=== PATIENT | female | born 1965 | race Caucasian/White ===

== ENCOUNTER 2020-05-21 11:08 | Inpatient (IN) | payer MEDICARE, OTHER ==
--- NOTE | 2020-05-21 11:41 | ED ---
General Adult HPI - General Chief complaint: Chest Pain Stated complaint: Chest Pain Time Seen by Provider: 05/21/20 11:18 Source: patient, EMS, RN notes reviewed, old records reviewed Mode of arrival: EMS Limitations: no limitations - History of Present Illness Initial comments: 54-year-old female history of CAD history of mitral valve replacement in 2017. She's had multiple stents. She states she does have anginal chest pain approximately once a month. She was seen at an outside hospital 2 days ago and according to the patient she was discharged without workup for chest pain. She states she has central chest pain radiating to the left arm. She denies vomiting or diaphoresis. She states this is typical of her previous episodes of chest pain. 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 - Related Data Allergies Allergy/AdvReac Type Severity Reaction Status Date / Time gabapentin Allergy Anaphylaxis Verified 05/21/20 11:36 Review of Systems ROS Statement: Those systems with pertinent positive or pertinent negative responses have been documented in the HPI. ROS Other: All systems not noted in ROS Statement are negative. Past Medical History Past Medical History: Coronary Artery Disease (CAD), Chest Pain / Angina Past Surgical History: Coronary Bypass/CABG, Heart Catheterization Additional Past Surgical History / Comment(s): CABG in 2013, Mitro valve on 2016, Stent Past Psychological History: Bipolar Smoking Status: Current some day smoker Past Alcohol Use History: None Reported Past Drug Use History: None Reported General Exam Limitations: no limitations General appearance: alert, in no apparent distress Head exam: Present: atraumatic, normocephalic Eye exam: Present: normal appearance, PERRL ENT exam: Present: normal exam Neck exam: Present: normal inspection. Absent: tenderness, meningismus Respiratory exam: Present: normal lung sounds bilaterally. Absent: respiratory distress, wheezes Cardiovascular Exam: Present: regular rate, normal rhythm GI/Abdominal exam: Present: soft. Absent: distended, tenderness, guarding Extremities exam: Present: normal inspection, normal capillary refill. Absent: pedal edema Neurological exam: Present: alert, oriented X3, CN II-XII intact. Absent: motor sensory deficit Psychiatric exam: Present: normal affect, normal mood Skin exam: Present: warm, dry, intact. Absent: cyanosis, diaphoretic Course Vital Signs 05/21/20 11:29 Pulse Rate 85 Respiratory 18 Rate Blood Pressure 124/60 O2 Sat by Pulse 98 Oximetry EKG Findings - EKG Comments: EKG Findings:: EKG: Normal sinus rhythm, prolonged QT, rate of 87, OH interval 162, QRS duration 88, QTC [address] segment elevation. Medical Decision Making - Medical Decision Making 54-year-old female with history of CAD previous bypass, multiple stents. EKG showing sinus rhythm. Chest x-ray is negative for acute cardiopulmonary findings. Patient has normal CBC, normal CMP, negative initial troponin. Given her risk factor she will be kept in observation for serial cardiac enzymes, telemetry, cardiology consultation. Case has been discussed with Dr. Gonzalez who will admit. - Lab Data Result diagrams: 05/21/20 11:47 05/21/20 11:47 Lab Results 05/21/20 05/21/20 05/21/20 Range/Units 11:47 11:47 11:47 WBC 5.6 (3.8-10.6) k/uL RBC 4.07 (3.80-5.40) m/uL Hgb 12.0 (11.4-16.0) gm/dL Hct 37.3 (34.0-46.0) % MCV 91.6 (80.0-100.0) fL MCH 29.6 (25.0-35.0) pg MCHC 32.3 (31.0-37.0) g/dL RDW 14.5 (11.5-15.5) % Plt Count 230 (150-450) k/uL Neutrophils % 75 % Lymphocytes % 19 % Monocytes % 3 % Eosinophils % 1 % Basophils % 0 % Neutrophils # 4.2 (1.3-7.7) k/uL Lymphocytes # 1.1 (1.0-4.8) k/uL Monocytes # 0.2 (0-1.0) k/uL Eosinophils # 0.1 (0-0.7) k/uL Basophils # 0.0 (0-0.2) k/uL PT 9.6 (9.0-12.0) sec INR 0.9 (<1.2) APTT 22.6 (22.0-30.0) sec Sodium 135 L (137-145) mmol/L Potassium 3.9 (3.5-5.1) mmol/L Chloride 104 (98-107) mmol/L Carbon Dioxide 23 (22-30) mmol/L Anion Gap 8 mmol/L BUN 12 (7-17) mg/dL Creatinine 1.12 H (0.52-1.04) mg/dL Est GFR (CKD-EPI)AfAm 65 (>60 ml/min/1.73 sqM) Est GFR (CKD-EPI)NonAf 56 (>60 ml/min/1.73 sqM) Glucose 371 H (74-99) mg/dL Calcium 8.5 (8.4-10.2) mg/dL Magnesium 1.9 (1.6-2.3) mg/dL Total Bilirubin 0.4 (0.2-1.3) mg/dL AST 25 (14-36) U/L ALT 16 (4-34) U/L Alkaline Phosphatase 118 (38-126) U/L Troponin I (0.000-0.034) ng/mL Total Protein 6.7 (6.3-8.2) g/dL Albumin 4.1 (3.5-5.0) g/dL 05/21/20 Range/Units 11:47 WBC (3.8-10.6) k/uL RBC (3.80-5.40) m/uL Hgb (11.4-16.0) gm/dL Hct (34.0-46.0) % MCV (80.0-100.0) fL MCH (25.0-35.0) pg MCHC (31.0-37.0) g/dL RDW (11.5-15.5) % Plt Count (150-450) k/uL Neutrophils % % Lymphocytes % % Monocytes % % Eosinophils % % Basophils % % Neutrophils # (1.3-7.7) k/uL Lymphocytes # (1.0-4.8) k/uL Monocytes # (0-1.0) k/uL Eosinophils # (0-0.7) k/uL Basophils # (0-0.2) k/uL PT (9.0-12.0) sec INR (<1.2) APTT (22.0-30.0) sec Sodium (137-145) mmol/L Potassium (3.5-5.1) mmol/L Chloride (98-107) mmol/L Carbon Dioxide (22-30) mmol/L Anion Gap mmol/L BUN (7-17) mg/dL Creatinine (0.52-1.04) mg/dL Est GFR (CKD-EPI)AfAm (>60 ml/min/1.73 sqM) Est GFR (CKD-EPI)NonAf (>60 ml/min/1.73 sqM) Glucose (74-99) mg/dL Calcium (8.4-10.2) mg/dL Magnesium (1.6-2.3) mg/dL Total Bilirubin (0.2-1.3) mg/dL AST (14-36) U/L ALT (4-34) U/L Alkaline Phosphatase (38-126) U/L Troponin I <0.012 (0.000-0.034) ng/mL Total Protein (6.3-8.2) g/dL Albumin (3.5-5.0) g/dL Disposition Clinical Impression: Chest pain Disposition: ADMITTED IP TO THIS [facility] Condition: Stable Is patient prescribed a controlled substance at d/c from ED?: No Referrals: Nonstaff,Physician [Primary Care Provider] - 1-2 days Decision to Admit Reason: Admit from EC Decision Date: 05/21/20 Decision Time: 13:23
[2020-05-21] MEDS ORDERED: MORPHINE SULFATE 4 MG/ML SYRINGE IVP STA (12:06)
[2020-05-21] MEDS ORDERED: ASPIRIN 325 MG TAB PO STA (12:06)
[2020-05-21] MEDS ORDERED: ONDANSETRON 4 MG/2 ML VIAL IVP STA (12:06)
[2020-05-21 12:15] LABS: Basophils % (A) 0 %; Eosinophils # (A) 0.1 k/uL (0-0.7); Eosinophils % (A) 1 %; HCT 37.3 % (34.0-46.0); Lymphocytes # (A) 1.1 k/uL (1.0-4.8); Lymphocytes % (A) 19 %; MCH 29.6 pg (25.0-35.0); MCHC 32.3 g/dL (31.0-37.0); MCV 91.6 fL (80.0-100.0); Mean Platelet Volume 7.3; Monocytes # (A) 0.2 k/uL (0-1.0); Monocytes % (A) 3 %; Neutrophils # (A) 4.2 k/uL (1.3-7.7); Neutrophils % (A) 75 %; Platelet Count 230 k/uL (150-450); RBC 4.07 m/uL (3.80-5.40); RDW 14.5 % (11.5-15.5); WBC 5.6 k/uL (3.8-10.6)
--- NOTE | 2020-05-21 12:22 | XR ---
EXAMINATION TYPE: XR chest 2V DATE OF EXAM: 05/21/2020 COMPARISON: None INDICATION: Chest pain TECHNIQUE: Frontal and lateral views of the chest are obtained. FINDINGS: The heart size is normal. The pulmonary vasculature is normal. The lungs are clear. Sternotomy wires are present from previous cardiac valve surgery. Stents or cor onary artery calcification is evident. IMPRESSION: 1. No acute pulmonary process. 2. Multiple cardiac stents or coronary artery calcification may be present. 3. Post surgical cardiac valve changes
[2020-05-21 12:29] LABS: INR 0.9 (<1.2); Partial Thromboplastin Time 22.6 sec (22.0-30.0); Prothrombin Time 9.6 sec (9.0-12.0)
[2020-05-21 12:31] LABS: Albumin 4.1 g/dL (3.5-5.0); Calcium 8.5 mg/dL (8.4-10.2); Magnesium 1.9 mg/dL (1.6-2.3); Potassium 3.9 mmol/L (3.5-5.1); Total Bilirubin 0.4 mg/dL (0.2-1.3); Total Protein 6.7 g/dL (6.3-8.2)
[2020-05-21] MEDS ORDERED: NALOXONE 0.4 MG/ML 1 ML VIAL IV PRN (13:19)
[2020-05-21] MEDS ORDERED: ACETAMINOPHEN TAB 325 MG TAB PO PRN (13:19)
[2020-05-21] MEDS ORDERED: ALBUTEROL NEBULIZED 2.5 MG/3 ML INHALATION PRN (15:50)
[2020-05-21] MEDS ORDERED: CYCLOBENZAPRINE 10 MG TAB PO PRN (15:50)
[2020-05-21] MEDS ORDERED: LOPERAMIDE 2 MG CAP PO PRN (15:50)
[2020-05-21] MEDS ORDERED: LIDOCAINE 5% PATCH TOPICAL PRN (15:50)
--- NOTE | 2020-05-21 16:48 | P.HPIM ---
History of Present Illness 54-year-old female history of CAD history of mitral valve replacement in 2017. She's had multiple stentsalong with CABG in the past came in with complaints of chest pressure like sensation which started yesterday and constant and radiating to the left neck area as well as denied any significant diaphoresis patient had multiple stents in the past and similar to the pain when she had stents in the past.patient usually follows with a transportation escort in [facility] does have history of heart failure was comparing of some shortness of breath associated with chest pain although denied any orthopnea or paroxysmal nocturnal dyspnea chest x-ray did not show any significant pulmonary edema. Review of Systems REVIEW OF SYSTEMS: CONSTITUTIONAL: No fever, no malaise, no fatigue. HEENT: No recent visual problems or hearing problems. Denied any sore throat. CARDIOVASCULAR: No orthopnea, PND, no palpitations, no syncope. PULMONARY: no cough, no hemoptysis. GASTROINTESTINAL: No diarrhea, no nausea, no vomiting, no abdominal pain. NEUROLOGICAL: No headaches, no weakness, no numbness. HEMATOLOGICAL: Denies any bleeding or petechiae. GENITOURINARY: Denies any burning micturition, frequency, or urgency. MUSCULOSKELETAL/RHEUMATOLOGICAL: Denies any joint pain, swelling, or any muscle pain. ENDOCRINE: Denies any polyuria or polydipsia. The rest of the 14-point review of systems is negative. Past Medical History Past Medical History: Coronary Artery Disease (CAD), Chest Pain / Angina History of Any Multi-Drug Resistant Organisms: None Reported Past Surgical History: Coronary Bypass/CABG, Heart Catheterization Additional Past Surgical History / Comment(s): CABG in 2013, Mitro valve on 2016, Stent Past Anesthesia/Blood Transfusion Reactions: No Reported Reaction Past Psychological History: Bipolar Smoking Status: Current some day smoker Past Alcohol Use History: None Reported Past Drug Use History: None Reported Medications and Allergies Home Medications Medication Instructions Recorded Confirmed Type ARIPiprazole [Abilify] 5 mg PO HS 05/21/20 05/21/20 History Albuterol Inhaler [Ventolin Hfa 2 puff INHALATION RT-Q4H PRN 05/21/20 05/21/20 History Inhaler] Aspirin 81 mg PO DAILY 05/21/20 05/21/20 History Atorvastatin [Lipitor] 80 mg PO DAILY 05/21/20 05/21/20 History Calcium Carbonate [Calcium] 600 mg PO BID 05/21/20 05/21/20 History Cyclobenzaprine [Flexeril] 10 mg PO TID 05/21/20 05/21/20 History Ferrous Sulfate [Feosol] 325 mg PO DAILY 05/21/20 05/21/20 History Fluticasone Propionate [Flovent 1 puff INHALATION RT-BID PRN 05/21/20 05/21/20 History Diskus] Folic Acid 1 mg PO DAILY 05/21/20 05/21/20 History Furosemide [Lasix] 40 mg PO DAILY 05/21/20 05/21/20 History INSULIN ASPART (NovoLOG) [NovoLOG See Protocol SQ ACHS 05/21/20 05/21/20 History (formulary)] Insulin Glargine,Hum.rec.anlog 28 unit SQ BID 05/21/20 05/21/20 History [Lantus Solostar] Isosorbide Mononitrate ER [Imdur] 30 mg PO DAILY 05/21/20 05/21/20 History Levothyroxine Sodium [Synthroid] 175 mcg PO DAILY 05/21/20 05/21/20 History Lidocaine 5% Patch [Lidoderm] 1 patch TOPICAL DAILY PRN 05/21/20 05/21/20 History Loperamide [Imodium] 2 mg PO TID PRN 05/21/20 05/21/20 History Metoprolol Tartrate [Lopressor] 25 mg PO BID 05/21/20 05/21/20 History Mirtazapine [Remeron] 45 mg PO HS 05/21/20 05/21/20 History Potassium Chloride ER [K-Dur 20] 20 meq PO DAILY 05/21/20 05/21/20 History QUEtiapine [SEROquel] 50 mg PO HS 05/21/20 05/21/20 History Ranolazine [Ranexa] 1,000 mg PO BID 05/21/20 05/21/20 History Salmeterol Xinafoate [Serevent 1 puff INHALATION RT-BID PRN 05/21/20 05/21/20 History Diskus] Sertraline [Zoloft] 50 mg PO DAILY 05/21/20 05/21/20 History Spironolactone 25 mg PO HS 05/21/20 05/21/20 History Ticagrelor [Brilinta] 90 mg PO BID 05/21/20 05/21/20 History hydrOXYzine pamoate [Vistaril] 25 mg PO TID 05/21/20 05/21/20 History levETIRAcetam [Keppra] 500 mg PO BID 05/21/20 05/21/20 History lisinopriL [Zestril] 2.5 mg PO DAILY 05/21/20 05/21/20 History tiZANidine [Zanaflex] 8 mg PO Q8H 05/21/20 05/21/20 History Allergies Allergy/AdvReac Type Severity Reaction Status Date / Time gabapentin Allergy Anaphylaxis Verified 05/21/20 15:17 Physical Exam Vitals: Vital Signs Temp Pulse Pulse Resp BP BP Pulse Ox 05/21/20 15:11 98.2 F 86 16 135/82 100 05/21/20 15:00 78 18 128/71 100 05/21/20 14:33 72 18 127/74 100 05/21/20 13:33 75 18 128/70 100 05/21/20 12:33 72 18 121/66 100 05/21/20 11:29 85 18 124/60 98 Intake and Output 05/21/20 05/21/20 05/21/20 06:59 14:59 22:59 Other: # Voids 1 Weight 72.575 kg 72.575 kg PHYSICAL EXAMINATION: GENERAL: The patient is alert and oriented x3, not in any acute distress. Well developed, well nourished. HEENT: Pupils are round and equally reacting to light. EOMI. No scleral icterus. No conjunctival pallor. Normocephalic, atraumatic. No pharyngeal erythema. No thyromegaly. CARDIOVASCULAR: S1 and S2 present. No murmurs, rubs, or gallops. PULMONARY: Chest is clear to auscultation, no wheezing or crackles. ABDOMEN: Soft, nontender, nondistended, normoactive bowel sounds. No palpable organomegaly. MUSCULOSKELETAL: No joint swelling or deformity. EXTREMITIES: No cyanosis, clubbing, or pedal edema. NEUROLOGICAL: Gross neurological examination did not reveal any focal deficits. SKIN: No rashes. Results CBC & Chem 7: 05/21/20 11:47 05/21/20 11:47 Labs: Abnormal Lab Results - Last 24 Hours (Table) 05/21/20 Range/Units 11:47 Sodium 135 L (137-145) mmol/L Creatinine 1.12 H (0.52-1.04) mg/dL Glucose 371 H (74-99) mg/dL Thrombosis Risk Factor Assmnt - Choose All That Apply Each Factor Represents 1 point: Age 41-60 years Other Risk Factors: No Other congenital or acquired thrombophilia - If yes, enter type in comment: Yes Each Risk Factor Represents 5 Points: Elective major lower extremity arthoplasty Thrombosis Risk Factor Assessment Total Risk Factor Score: 6 Thrombosis Risk Factor Assessment Level: High Risk Assessment and Plan Plan: chest pain: Rule out acute coronary syndromes unstable angina will repeat 2 more sets of troponins, cardiology was consulted. -History of coronary artery disease with multiple stents in the past less CABG. -possible chronic kidney disease stage II -Congestive heart failure chronic systolic dysfunction EF is unknown patient is not in heart failure exacerbation patient will be resumed on her home dose of Lasix and Aldactonepatient has mild pedal edema but doesn't have any JVD. -Continue nicotine use: Patient quit smoking and recently started back again: Extensive counseling regarding this was provided -History of mitral valve prolapse -history of seizures in the past for which patient is on antiseizure medications which will be continued -Hyperlipidemia -Hypertension -Type 2 diabetes mellitus for which patient is on Levemir along with sliding scale which will be resumed -Depression DVT prophylaxis early ambulation
[2020-05-21] MEDS: MORPHINE SULFATE 4 MG/ML SYRINGE IV PRN ×2 (17:27→21:31)
[2020-05-21] MEDS: FORMOTEROL FUMARATE 20 MCG/2 ML NEBU INHALATION SCH (19:36)
[2020-05-21] MEDS: FLUTICASONE 44 MCG INHALER INHALATION SCH (19:36)
[2020-05-21 20:37] LABS: Glucose,Whole Blood 335 mg/dL (75-99)
[2020-05-21] MEDS: levETIRAcetam 500 MG TAB PO SCH (20:46)
[2020-05-21] MEDS: TICAGRELOR 90 MG TAB PO SCH (20:46)
[2020-05-21] MEDS: METOPROLOL TARTRATE 25 MG TAB PO SCH (20:46)
[2020-05-21] MEDS: SPIRONOLACTONE 25 MG TAB PO SCH (20:46)
[2020-05-21] MEDS: INSULIN DETEMIR (LEVEMIR) 100 UNIT/ML SYR SQ SCH (20:47)
[2020-05-21] MEDS: MIRTAZAPINE 45 MG TABLET PO SCH (20:47)
[2020-05-21] MEDS: ARIPiprazole 5 MG TAB PO SCH (20:47)
[2020-05-21] MEDS: QUEtiapine 50 MG TAB PO SCH (20:48)
[2020-05-21 21:16] LABS: Glucose,Whole Blood 336 mg/dL (75-99)
[2020-05-21] MEDS: RANOLAZINE 500 MG TAB.ER.12H PO SCH (21:30)
[2020-05-21] MEDS: INSULIN ASPART (NovoLOG) 100 UNIT/ML VIAL SQ SCH (21:32)
[2020-05-22] MEDS: MORPHINE SULFATE 4 MG/ML SYRINGE IV PRN ×4 (03:13→20:59)
[2020-05-22 06:30] LABS: Glucose,Whole Blood 164 mg/dL (75-99)
[2020-05-22] MEDS: INSULIN DETEMIR (LEVEMIR) 100 UNIT/ML SYR SQ SCH ×2 (06:37→21:02)
[2020-05-22] MEDS: INSULIN ASPART (NovoLOG) 100 UNIT/ML VIAL SQ SCH ×4 (06:37→21:01)
[2020-05-22] MEDS: LEVOTHYROXINE 88 MCG TAB PO SCH (06:38)
[2020-05-22] MEDS: FORMOTEROL FUMARATE 20 MCG/2 ML NEBU INHALATION SCH ×2 (08:43→19:06)
[2020-05-22] MEDS: FLUTICASONE 44 MCG INHALER INHALATION SCH ×2 (08:43→19:06)
[2020-05-22] MEDS: levETIRAcetam 500 MG TAB PO SCH ×2 (10:00→20:58)
[2020-05-22] MEDS: SERTRALINE 50 MG TAB PO SCH (10:00)
[2020-05-22] MEDS: TICAGRELOR 90 MG TAB PO SCH ×2 (10:00→20:58)
[2020-05-22] MEDS: ASPIRIN 81 MG PO SCH (10:00)
[2020-05-22] MEDS: ISOSORBIDE MONONITRATE ER 30 MG TAB.ER.24H PO SCH (10:00)
[2020-05-22] MEDS: FUROSEMIDE 40 MG TAB PO SCH (10:00)
[2020-05-22] MEDS: METOPROLOL TARTRATE 25 MG TAB PO SCH ×2 (10:01→20:58)
[2020-05-22] MEDS: POTASSIUM CHLORIDE ER 20 MEQ TAB.ER PO SCH (10:03)
[2020-05-22] MEDS: RANOLAZINE 500 MG TAB.ER.12H PO SCH ×2 (10:04→20:58)
[2020-05-22] MEDS: ATORVASTATIN 80 MG TAB PO SCH (10:04)
[2020-05-22 12:09] LABS: Glucose,Whole Blood 83 mg/dL (75-99)
--- NOTE | 2020-05-22 12:46 | P.CRDCN ---
History of Present Illness Consult date: 05/22/20 Consult reason: chest pain History of present illness: History of present illness: This is a 54-year-old female that follows with cardiology in [place] near her home. She has a past medical history of 4 vessel CABG in 2014, mitral valve replacement in 2017, multiple stents which she states is up to 29. She has history of diabetes and rheumatoid arthritis, tobacco use and dependence. Patient gives history also that she had a procedure done about 1 month ago on her right lower extremity followed by her left as of Sunday of last week and she is scheduled for another stent placement on Sunday on the right lower extremity. She believes her last heart catheterization was done this year sometime in the summer. Patient complains of midsternal and left breast chest pain also into the left shoulder and left neck. She states the morphine temporarily diminishes the pain and it worsens when she ambulates. Initial vital signs were stable with blood pressure 124/60, pulse ox 90% on room air, heart rate 85. EKG was a normal sinus rhythm.CBC was unremarkable. Sodium 135, creatinine 1.12. Blood sugar 371. Chest x-ray was negative for acute cardiac pulmonary findings. Troponin negative on 3 draws. Echocardiogram has been ordered and currently pending. Review Of Systems: Constitutional: No fever, no chills. No weakness, fatigue or lethargy. EENT: No headache. No dizziness. Lungs: No shortness of breath, cough, no sputum production. No wheezing. Cardiovascular: Reports chest pain, no lower extremity edema. No palpitations. No paroxysmal nocturnal dyspnea. No orthopnea. No lightheadedness or dizziness. No syncopal episodes. Abdominal: No abdominal pain. No nausea, vomiting. No diarrhea. No constipation. Musculoskeletal: No myalgias. No muscle weakness. Integumentary: No wounds, no lesions. No rash or pruritus. Neurologic: No aphasia. No facial droop. No change in mentation. No head injury. Physical examination: Gen: This is a obese 54-year-old female. Patient is resting in bed and appears to be comfortable and in no acute distress. VS: Afebrile, heart rate 72, blood pressure 101/66, pulse ox 100% on room air. HEENT: Head is atraumatic, normocephalic. Pupils equal, round. Sclerae is anicteric. NECK: Supple. No JVD. No lymphadenopathy. No thyromegaly. LUNGS: Clear to auscultation. No wheezes or rhonchi. No intercostal retractions. HEART: Regular rate and rhythm. No murmur. Click is heard. No chest wall tenderness. ABDOMEN: Soft. Bowel sounds are present. No masses. No tenderness. EXTREMITIES: No pedal edema. No calf tenderness. Chronic changes to the lower extremities bilateral, wound/eschar to the right pretibial area NEUROLOGICAL: Patient is awake, alert and oriented x3. Cranial nerves 2 through 12 are grossly intact. Assessment: Chest pain with negative troponins, acute coronary syndrome ruled out History of coronary artery disease History of severe peripheral vascular disease Diabetes mellitus type 2, insulin requiring Hypertension Hyperlipidemia Plan: Home medications have been resumed and recommend maintaining current dosing Attempt to contact patient's director experimental medicine for treatment plan and recommendations Obtain 2-D echocardiogram and Doppler study to assess cardiac structure and function Further recommendations to follow based upon clinical course Thank you kindly for this consultation. Nurse practitioner note has been reviewed, I agree with documented findings and plan of care. Patient was seen and examined. Past Medical History Past Medical History: Coronary Artery Disease (CAD), Chest Pain / Angina History of Any Multi-Drug Resistant Organisms: None Reported Past Surgical History: Coronary Bypass/CABG, Heart Catheterization Additional Past Surgical History / Comment(s): CABG in 2013, Mitro valve on 2016, Stent Past Anesthesia/Blood Transfusion Reactions: No Reported Reaction Past Psychological History: Bipolar Smoking Status: Current some day smoker Past Alcohol Use History: None Reported Past Drug Use History: None Reported Medications and Allergies Home Medications Medication Instructions Recorded Confirmed Type ARIPiprazole [Abilify] 5 mg PO HS 05/21/20 05/21/20 History Albuterol Inhaler [Ventolin Hfa 2 puff INHALATION RT-Q4H PRN 05/21/20 05/21/20 History Inhaler] Aspirin 81 mg PO DAILY 05/21/20 05/21/20 History Atorvastatin [Lipitor] 80 mg PO DAILY 05/21/20 05/21/20 History Calcium Carbonate [Calcium] 600 mg PO BID 05/21/20 05/21/20 History Cyclobenzaprine [Flexeril] 10 mg PO TID 05/21/20 05/21/20 History Ferrous Sulfate [Iron (65 MG 325 mg PO DAILY 05/21/20 05/21/20 History Elemental)] Fluticasone Propionate [Flovent 1 puff INHALATION RT-BID PRN 05/21/20 05/21/20 History Diskus] Folic Acid 1 mg PO DAILY 05/21/20 05/21/20 History Furosemide [Lasix] 40 mg PO DAILY 05/21/20 05/21/20 History INSULIN ASPART (NovoLOG) [NovoLOG See Protocol SQ ACHS 05/21/20 05/21/20 History (formulary)] Insulin Glargine,Hum.rec.anlog 28 unit SQ BID 05/21/20 05/21/20 History [Lantus Solostar] Isosorbide Mononitrate ER [Imdur] 30 mg PO DAILY 05/21/20 05/21/20 History Levothyroxine Sodium [Synthroid] 175 mcg PO DAILY 05/21/20 05/21/20 History Lidocaine 5% Patch [Lidoderm 5% 1 patch TOPICAL DAILY PRN 05/21/20 05/21/20 History Patch] Loperamide [Imodium] 2 mg PO TID PRN 05/21/20 05/21/20 History Metoprolol Tartrate [Lopressor] 25 mg PO BID 05/21/20 05/21/20 History Mirtazapine [Remeron] 45 mg PO HS 05/21/20 05/21/20 History Potassium Chloride ER [K-Dur 20] 20 meq PO DAILY 05/21/20 05/21/20 History QUEtiapine [SEROquel] 50 mg PO HS 05/21/20 05/21/20 History Ranolazine [Ranexa] 1,000 mg PO BID 05/21/20 05/21/20 History Salmeterol Xinafoate [Serevent 1 puff INHALATION RT-BID PRN 05/21/20 05/21/20 History Diskus] Sertraline [Zoloft] 50 mg PO DAILY 05/21/20 05/21/20 History Spironolactone 25 mg PO HS 05/21/20 05/21/20 History Ticagrelor [Brilinta] 90 mg PO BID 05/21/20 05/21/20 History hydrOXYzine pamoate [Vistaril] 25 mg PO TID 05/21/20 05/21/20 History levETIRAcetam [Keppra] 500 mg PO BID 05/21/20 05/21/20 History lisinopriL [Zestril] 2.5 mg PO DAILY 05/21/20 05/21/20 History tiZANidine [Zanaflex] 8 mg PO Q8H 05/21/20 05/21/20 History Allergies Allergy/AdvReac Type Severity Reaction Status Date / Time gabapentin Allergy Anaphylaxis Verified 05/21/20 15:17 Physical Exam Vitals: Vital Signs Temp Pulse Pulse Resp BP BP Pulse Ox 05/22/20 03:00 97.4 F L 73 107/66 99 05/21/20 19:40 98.0 F 80 117/71 99 05/21/20 15:11 98.2 F 86 16 135/82 100 05/21/20 15:00 78 18 128/71 100 05/21/20 14:33 72 18 127/74 100 05/21/20 13:33 75 18 128/70 100 05/21/20 12:33 72 18 121/66 100 05/21/20 11:29 85 18 124/60 98 Intake and Output 05/21/20 05/22/20 05/22/20 22:59 06:59 14:59 Intake Total 0 Output Total 0 Balance 0 Intake: Oral 0 Output: Urine 0 Other: Voiding Method Toilet Toilet # Voids 1 1 Weight 72.575 kg Results 05/21/20 11:47 05/21/20 11:47 Cardiac Enzymes 05/21/20 05/21/20 05/21/20 Range/Units 11:47 11:47 15:06 AST 25 (14-36) U/L Troponin I <0.012 <0.012 (0.000-0.034) ng/mL 05/21/20 Range/Units 17:39 AST (14-36) U/L Troponin I <0.012 (0.000-0.034) ng/mL Coagulation 05/21/20 Range/Units 11:47 PT 9.6 (9.0-12.0) sec APTT 22.6 (22.0-30.0) sec CBC 05/21/20 Range/Units 11:47 WBC 5.6 (3.8-10.6) k/uL RBC 4.07 (3.80-5.40) m/uL Hgb 12.0 (11.4-16.0) gm/dL Hct 37.3 (34.0-46.0) % Plt Count 230 (150-450) k/uL Comprehensive Metabolic Panel 05/21/20 Range/Units 11:47 Sodium 135 L (137-145) mmol/L Potassium 3.9 (3.5-5.1) mmol/L Chloride 104 (98-107) mmol/L Carbon Dioxide 23 (22-30) mmol/L BUN 12 (7-17) mg/dL Creatinine 1.12 H (0.52-1.04) mg/dL Glucose 371 H (74-99) mg/dL Calcium 8.5 (8.4-10.2) mg/dL AST 25 (14-36) U/L ALT 16 (4-34) U/L Alkaline Phosphatase 118 (38-126) U/L Total Protein 6.7 (6.3-8.2) g/dL Albumin 4.1 (3.5-5.0) g/dL Current Medications Generic Name Dose Route Start Last Admin Trade Name Freq PRN Reason Stop Dose Admin Acetaminophen 650 mg 05/21/20 13:19 Acetaminophen Tab 325 Mg Tab PO Q6HR PRN Mild Pain or Fever > 100.5 Albuterol Sulfate 2.5 mg 05/21/20 15:50 Albuterol Nebulized 2.5 Mg/3 Ml INHALATION RT-Q4H PRN Shortness Of Breath Aripiprazole 5 mg 05/21/20 21:00 05/21/20 20:47 Aripiprazole 5 Mg Tab PO 5 mg HS CAROLYN Administration Aspirin 81 mg 05/22/20 09:00 Aspirin 81 Mg PO DAILY CAROLYN Atorvastatin Calcium 80 mg 05/22/20 09:00 Atorvastatin 80 Mg Tab PO DAILY [facility] Cyclobenzaprine HCl 10 mg 05/21/20 15:50 Cyclobenzaprine 10 Mg Tab PO TID PRN Mild Spasms Fluticasone Propionate 1 puff 05/21/20 20:00 05/22/20 08:43 Fluticasone 44 Mcg Inhaler INHALATION Not Given RT-BID [facility] Formoterol Fumarate 20 mcg 05/21/20 20:00 05/22/20 08:43 Formoterol Fumarate 20 Mcg/2 Ml Nebu INHALATION Not Given RT-BID [facility] Furosemide 40 mg 05/22/20 09:00 Furosemide 40 Mg Tab PO DAILY [facility] Insulin Aspart 0 unit 05/21/20 21:00 05/22/20 06:37 Insulin Aspart (Novolog) 100 Unit/Ml Vial SQ 1 unit ACHS [facility] Administration Protocol Insulin Detemir 28 unit 05/21/20 21:00 05/22/20 06:37 Insulin Detemir (Levemir) 100 Unit/Ml Syr SQ 28 unit BID@0700,2100 [facility] Administration Isosorbide Mononitrate 30 mg 05/22/20 09:00 Isosorbide Mononitrate Er 30 Mg Tab.Er.24h PO DAILY [facility] Levetiracetam 500 mg 05/21/20 21:00 05/21/20 20:46 Levetiracetam 500 Mg Tab PO 500 mg BID [facility] Administration Levothyroxine Sodium 176 mcg 05/22/20 06:30 05/22/20 06:38 Levothyroxine 88 Mcg Tab PO 176 mcg 0630 [facility] Administration Lidocaine 1 patch 05/21/20 15:50 Lidocaine 5% Patch TOPICAL DAILY PRN Pain Lisinopril 2.5 mg 05/22/20 09:00 Lisinopril 2.5 Mg Tab PO DAILY [facility] Loperamide HCl 2 mg 05/21/20 15:50 Loperamide 2 Mg Cap PO TID PRN Diarrhea Metoprolol Tartrate 25 mg 05/21/20 21:00 05/21/20 20:46 Metoprolol Tartrate 25 Mg Tab PO 25 mg BID [facility] Administration Mirtazapine 45 mg 05/21/20 21:00 05/21/20 20:47 Mirtazapine 45 Mg Tablet PO 45 mg HS [facility] Administration Morphine Sulfate 4 mg 05/21/20 13:19 05/22/20 03:13 Morphine Sulfate 4 Mg/Ml Syringe IV 4 mg Q4HR PRN Administration Severe Pain Naloxone HCl 0.2 mg 05/21/20 13:19 Naloxone 0.4 Mg/Ml 1 Ml Vial IV Q2M PRN Opioid Reversal Potassium Chloride 20 meq 05/22/20 09:00 Potassium Chloride Er 20 Meq Tab.Er PO DAILY [facility] Quetiapine Fumarate 50 mg 05/21/20 21:00 05/21/20 20:48 Quetiapine 50 Mg Tab PO 50 mg HS [facility] Administration Ranolazine 1,000 mg 05/21/20 21:00 05/21/20 21:30 Ranolazine 500 Mg Tab.Er.12h PO 1,000 mg BID [facility] Administration Sertraline HCl 50 mg 05/22/20 09:00 Sertraline 50 Mg Tab PO DAILY [facility] Spironolactone 25 mg 05/21/20 21:00 05/21/20 20:46 Spironolactone 25 Mg Tab PO 25 mg HS [facility] Administration Ticagrelor 90 mg 05/21/20 21:00 05/21/20 20:46 Ticagrelor 90 Mg Tab PO 90 mg BID [facility] Administration Intake and Output 05/21/20 05/22/20 05/22/20 22:59 06:59 14:59 Intake Total 0 Output Total 0 Balance 0 Intake: Oral 0 Output: Urine 0 Other: Voiding Method Toilet Toilet # Voids 1 1 Weight 72.575 kg 05/21/20 11:47 05/21/20 11:47
[2020-05-22] MEDS ORDERED: CALCIUM CARBONATE 500 MG CHEWABLE PO PRN (14:09)
--- NOTE | 2020-05-22 14:24 | P.PN ---
Subjective 54-year-old with a history of severe peripheral artery Disease and coronary artery disease came in with chest pain, cardiology evaluated the patient troponins are negative. Considering the complexity of her vascular disease cardiology is trying to contact her certified nurse operating room to make further recommendations. Meantime echocardiac exam is being obtained. Constitutional: Denied any fatigue denied any fever. Cardio vascular: denied any chest pain, palpitations Gastrointestinal denied any nausea vomiting Pulmonary: Denied any shortness of breath cough Neurologic denied any new focal deficits All inpatient medications were reviewed and appropriate changes in these medications as dictated in the interval history and assessment and plan. Objective - Vital Signs Vital signs: Vital Signs Temp 97.6 F 05/22/20 09:00 Pulse 72 05/22/20 09:00 Resp 18 05/22/20 09:00 BP 101/66 05/22/20 09:00 Pulse Ox 100 05/22/20 09:00 Intake & Output 05/21/20 05/22/20 05/22/20 18:59 06:59 18:59 Intake Total 0 480 Output Total 0 0 Balance 0 480 Weight 72.575 kg Intake: Oral 0 480 Output: Urine 0 0 Other: Voiding Method Toilet Toilet # Voids 1 1 - Exam PHYSICAL EXAMINATION: GENERAL: The patient is alert and oriented x3, not in any acute distress. Well developed, well nourished. HEENT: Pupils are round and equally reacting to light. EOMI. No scleral icterus. No conjunctival pallor. Normocephalic, atraumatic. No pharyngeal erythema. No thyromegaly. CARDIOVASCULAR: S1 and S2 present. No murmurs, rubs, or gallops. PULMONARY: Chest is clear to auscultation, no wheezing or crackles. ABDOMEN: Soft, nontender, nondistended, normoactive bowel sounds. No palpable organomegaly. MUSCULOSKELETAL: No joint swelling or deformity. EXTREMITIES: No cyanosis, clubbing, or pedal edema. NEUROLOGICAL: Gross neurological examination did not reveal any focal deficits. SKIN: No rashes. - Labs CBC & Chem 7: 05/21/20 11:47 05/21/20 11:47 Labs: Abnormal Lab Results - Last 24 Hours (Table) 05/21/20 05/21/20 05/22/20 Range/Units 20:35 21:15 06:29 POC Glucose (mg/dL) 335 H 336 H 164 H (75-99) mg/dL Assessment and Plan Plan: chest pain: Ruled out acute coronary syndromes , cardiology evaluated the patient is awaiting further recommendations as mentioned above from the -History of coronary artery disease with multiple stents in the past less CABG. -possible chronic kidney disease stage II -Congestive heart failure chronic systolic dysfunction EF is unknown patient is not in heart failure exacerbation patient will be resumed on her home dose of Lasix and Aldactonepatient has mild pedal edema but doesn't have any JVD. -Continue nicotine use: Patient quit smoking and recently started back again: Extensive counseling regarding this was provided -History of mitral valve prolapse -history of seizures in the past for which patient is on antiseizure medications which will be continued -Hyperlipidemia -Hypertension -Type 2 diabetes mellitus for which patient is on Levemir along with sliding scale which will be resumed -Depression DVT prophylaxis early ambulation
[2020-05-22 17:39] LABS: Glucose,Whole Blood 82 mg/dL (75-99)
[2020-05-22 20:44] LABS: Glucose,Whole Blood 138 mg/dL (75-99)
[2020-05-22] MEDS: SPIRONOLACTONE 25 MG TAB PO SCH (20:58)
[2020-05-22] MEDS: ARIPiprazole 5 MG TAB PO SCH (21:39)
[2020-05-22] MEDS: MIRTAZAPINE 45 MG TABLET PO SCH (21:39)
[2020-05-22] MEDS: QUEtiapine 50 MG TAB PO SCH (21:39)
[2020-05-23 06:53] LABS: Glucose,Whole Blood 76 mg/dL (75-99)
[2020-05-23] MEDS: LEVOTHYROXINE 88 MCG TAB PO SCH (06:55)
[2020-05-23] MEDS: INSULIN DETEMIR (LEVEMIR) 100 UNIT/ML SYR SQ SCH ×2 (06:56→20:21)
[2020-05-23] MEDS: MORPHINE SULFATE 4 MG/ML SYRINGE IV PRN ×4 (07:01→20:21)
--- NOTE | 2020-05-23 08:11 | P.PN ---
Subjective Progress Note Date: 05/23/20 History of present illness: This is a 54-year-old female that follows with cardiology in [place] near her home. She has a past medical history of 4 vessel CABG in 2014, mitral valve replacement in 2017, multiple stents which she states is up to 29. She has history of diabetes and rheumatoid arthritis, tobacco use and dependence. Patient gives history also that she had a procedure done about 1 month ago on her right lower extremity followed by her left as of Sunday of last week and she is scheduled for another stent placement on Sunday on the right lower extremity. She believes her last heart catheterization was done this year sometime in the summer. Patient complains of midsternal and left breast chest pain also into the left shoulder and left neck. She states the morphine temporarily diminishes the pain and it worsens when she ambulates. Initial vital signs were stable with blood pressure 124/60, pulse ox 90% on room air, heart rate 85. EKG was a normal sinus rhythm.CBC was unremarkable. Sodium 135, creatinine 1.12. Blood sugar 371. Chest x-ray was negative for acute cardiac pulmonary findings. Troponin negative on 3 draws. Echocardiogram has been ordered and currently pending. 05/23: Patient continues to have intermittent chest pain in the same area of the left chest radiating into her left neck and shoulder. This is occurring about every 4 hours and is receiving morphine regularly. She felt a tightness when she got up to walk to the bathroom. 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 Echocardiogram report is currently pending. Physical examination: Gen: This is an obese 54-year-old female. Patient is resting in bed and appears to be comfortable and in no acute distress. VS: Afebrile, heart rate 61, blood pressure 131/71, pulse ox 100% on room air. HEENT: Head is atraumatic, normocephalic. Pupils equal, round. Sclerae is anicteric. NECK: Supple. No JVD. No lymphadenopathy. No thyromegaly. LUNGS: Clear to auscultation. No wheezes or rhonchi. No intercostal retractions. HEART: Regular rate and rhythm. No murmur. Click is heard. No chest wall tenderness. ABDOMEN: Soft. Bowel sounds are present. No masses. No tenderness. EXTREMITIES: No pedal edema. No calf tenderness. Chronic changes to the lower extremities bilateral, wound/eschar to the right pretibial area NEUROLOGICAL: Patient is awake, alert and oriented x3. Cranial nerves 2 through 12 are grossly intact. Assessment: Chest pain with negative troponins, acute coronary syndrome ruled out Persistent left-sided chest pain worse with exertion History of coronary artery disease History of severe peripheral vascular disease Diabetes mellitus type 2, insulin requiring Hypertension Hyperlipidemia Plan: Home medications have been resumed and recommend maintaining current dosing Attempt to contact patient's aluminum fabrication supervisor for treatment plan and recommendations Obtain 2-D echocardiogram and Doppler study to assess cardiac structure and function, Report pending Further recommendations to follow based upon clinical course Thank you kindly for this consultation. Nurse practitioner note has been reviewed, I agree with documented findings and plan of care. Patient was seen and examined. Objective - Vital Signs Vital signs: Vital Signs Temp 97.5 F L 05/23/20 03:00 Pulse 61 05/23/20 03:00 Resp 16 05/23/20 03:00 BP 131/71 05/23/20 03:00 Pulse Ox 100 05/23/20 03:00 Intake & Output 05/22/20 05/23/20 05/23/20 18:59 06:59 18:59 Intake Total 720 Output Total 0 0 Balance 720 0 Intake: Oral 720 Output: Urine 0 0 Other: Voiding Method Toilet # Voids 1 1 - Labs CBC & Chem 7: 05/21/20 11:47 05/23/20 07:47 Labs: Abnormal Lab Results - Last 24 Hours (Table) 05/22/20 Range/Units 20:42 POC Glucose (mg/dL) 138 H (75-99) mg/dL
[2020-05-23] MEDS: SERTRALINE 50 MG TAB PO SCH (08:25)
[2020-05-23] MEDS: ASPIRIN 81 MG PO SCH (08:25)
[2020-05-23] MEDS: levETIRAcetam 500 MG TAB PO SCH ×2 (08:25→20:17)
[2020-05-23] MEDS: RANOLAZINE 500 MG TAB.ER.12H PO SCH ×2 (08:25→20:17)
[2020-05-23] MEDS: FUROSEMIDE 40 MG TAB PO SCH (08:25)
[2020-05-23] MEDS: POTASSIUM CHLORIDE ER 20 MEQ TAB.ER PO SCH (08:25)
[2020-05-23] MEDS: ATORVASTATIN 80 MG TAB PO SCH (08:25)
[2020-05-23] MEDS: TICAGRELOR 90 MG TAB PO SCH ×2 (08:25→20:17)
[2020-05-23] MEDS: ISOSORBIDE MONONITRATE ER 30 MG TAB.ER.24H PO SCH (08:25)
[2020-05-23] MEDS: METOPROLOL TARTRATE 25 MG TAB PO SCH ×2 (08:25→20:17)
[2020-05-23] MEDS: FORMOTEROL FUMARATE 20 MCG/2 ML NEBU INHALATION SCH ×2 (09:05→19:18)
[2020-05-23] MEDS: FLUTICASONE 44 MCG INHALER INHALATION SCH ×2 (09:05→19:18)
[2020-05-23 09:33] LABS: Calcium 9.2 mg/dL (8.4-10.2)
[2020-05-23 09:52] LABS: Potassium 5.4 mmol/L (3.5-5.1)
[2020-05-23] MEDS: INSULIN ASPART (NovoLOG) 100 UNIT/ML VIAL SQ SCH ×4 (10:25→20:18)
[2020-05-23 12:04] LABS: Glucose,Whole Blood 126 mg/dL (75-99)
[2020-05-23] MEDS ORDERED: SODIUM POLYSTYRENE SULFONATE 15 GM/60 ML BOTTLE PO STA (13:43)
--- NOTE | 2020-05-23 15:34 | P.PN ---
Subjective 54-year-old with a history of severe peripheral artery Disease and coronary artery disease came in with chest pain, cardiology evaluated the patient troponins are negative. Considering the complexity of her vascular disease cardiology is trying to contact her tablet making machine operator helper to make further recommendations. Meantime echocardiac exam is being obtained. 05/23/2020 she is still complaining of on and off chest pain. Please refer to cardiology documentation for further details of management and plan regarding her chest pain Constitutional: Denied any fatigue denied any fever. Cardio vascular: denied any palpitations Gastrointestinal denied any nausea vomiting Pulmonary: Denied any shortness of breath cough Neurologic denied any new focal deficits All inpatient medications were reviewed and appropriate changes in these medications as dictated in the interval history and assessment and plan. Objective - Vital Signs Vital signs: Vital Signs Temp 97.2 F L 05/23/20 14:11 Pulse 70 05/23/20 14:11 Resp 18 05/23/20 14:11 BP 113/84 05/23/20 14:11 Pulse Ox 97 05/23/20 14:11 Intake & Output 05/22/20 05/23/20 05/23/20 18:59 06:59 18:59 Intake Total 720 720 Output Total 0 0 0 Balance 720 0 720 Intake: Oral 720 720 Output: Urine 0 0 0 Other: Voiding Method Toilet Toilet # Voids 1 1 2 # Bowel Movements 3 - Exam PHYSICAL EXAMINATION: GENERAL: The patient is alert and oriented x3, not in any acute distress. Well developed, well nourished. HEENT: Pupils are round and equally reacting to light. EOMI. No scleral icterus. No conjunctival pallor. Normocephalic, atraumatic. No pharyngeal erythema. No thyromegaly. CARDIOVASCULAR: S1 and S2 present. No murmurs, rubs, or gallops. PULMONARY: Chest is clear to auscultation, no wheezing or crackles. ABDOMEN: Soft, nontender, nondistended, normoactive bowel sounds. No palpable organomegaly. MUSCULOSKELETAL: No joint swelling or deformity. EXTREMITIES: No cyanosis, clubbing, or pedal edema. NEUROLOGICAL: Gross neurological examination did not reveal any focal deficits. SKIN: No rashes. - Labs CBC & Chem 7: 05/21/20 11:47 05/23/20 07:47 Labs: Abnormal Lab Results - Last 24 Hours (Table) 05/22/20 05/23/20 05/23/20 Range/Units 20:42 07:47 12:02 Potassium 5.4 H (3.5-5.1) mmol/L Chloride 109 H (98-107) mmol/L BUN 20 H (7-17) mg/dL Creatinine 1.09 H (0.52-1.04) mg/dL Glucose 65 L (74-99) mg/dL POC Glucose (mg/dL) 138 H 126 H (75-99) mg/dL Assessment and Plan Plan: chest pain: Ruled out acute coronary syndromes , cardiology evaluated the patient is awaiting further recommendations .still having on and off chest pain/ -mild hyperkalemia is probably secondary to PHAM inhibitor patient was started on low potassium diet and was monitored for now will not hold off on PHAM inhibitor patient is a very low-dose -History of coronary artery disease with multiple stents in the past less CABG. -possible chronic kidney disease stage II -Congestive heart failure chronic systolic dysfunction EF is unknown patient is not in heart failure exacerbation patient will be resumed on her home dose of Lasix and Aldactonepatient has mild pedal edema but doesn't have any JVD. -Continue nicotine use: Patient quit smoking and recently started back again: Extensive counseling regarding this was provided -History of mitral valve prolapse -history of seizures in the past for which patient is on antiseizure medications which will be continued -Hyperlipidemia -Hypertension -Type 2 diabetes mellitus for which patient is on Levemir along with sliding sc bartolo which will be resumed -Depression DVT prophylaxis early ambulation
[2020-05-23 16:35] LABS: Glucose,Whole Blood 90 mg/dL (75-99)
[2020-05-23 20:07] LABS: Glucose,Whole Blood 144 mg/dL (75-99)
[2020-05-23] MEDS: QUEtiapine 50 MG TAB PO SCH (20:50)
[2020-05-23] MEDS: ARIPiprazole 5 MG TAB PO SCH (20:50)
[2020-05-23] MEDS: MIRTAZAPINE 45 MG TABLET PO SCH (20:50)
[2020-05-24] MEDS: MORPHINE SULFATE 4 MG/ML SYRINGE IV PRN ×3 (00:35→11:43)
[2020-05-24 06:26] LABS: Glucose,Whole Blood 78 mg/dL (75-99)
[2020-05-24] MEDS: INSULIN ASPART (NovoLOG) 100 UNIT/ML VIAL SQ SCH ×2 (06:27→13:35)
[2020-05-24] MEDS: LEVOTHYROXINE 88 MCG TAB PO SCH (06:32)
[2020-05-24 08:01] LABS: Calcium 8.4 mg/dL (8.4-10.2); Potassium 4.3 mmol/L (3.5-5.1)
[2020-05-24] MEDS ORDERED: DOBUTamine DRIP for NUC MED 500 MG in DEXTROSE/WATER 1 250ML.BAG IV ONE (08:07)
[2020-05-24 08:59] VITALS: BP 119/79; PULSE 67; RESP 14; TEMP 97.5
[2020-05-24] MEDS ORDERED: SPIRONOLACTONE 25 MG TAB PO SCH (09:00)
[2020-05-24] MEDS ORDERED: ATROPINE SULFATE 0.1 MG/ML 10ML SYRINGE ONE (11:13)
--- NOTE | 2020-05-24 11:26 | P.PN ---
Subjective HISTORY OF PRESENTING ILLNESS This is a pleasant 54-year-old female past medical history significant for coronary artery bypass grafting 2013, mitral valve replacement 2017, multiple stents, diabetes mellitus, hypertension, dyslipidemia, peripheral vascular disease and chronic nicotine dependence. She follows in the office with Dr. Salcedo in [place]. She is seen and examined sitting up at the edge of the bed eating breakfast. She states she is still having pain in the left precordial region that has been constant since Sunday. No specific aggravating or alleviating factors. Blood pressure 119/79 heart rate 67 afebrile maintaining oxygen saturation on room air. Laboratory data reviewed, sodium 138, potassium 4.3, creatinine 1.39. Currently maintained on aspirin 81 mg daily, atorvastatin 80 mg daily, Lasix 40 mg by mouth daily, Imdur 30 mg daily, lisinopril 2.5 mg daily, metoprolol 25 mg twice a day, Ranexa 1000 mg twice a day, Aldactone 25 mg daily and brilinta 90 mg twice a day. PHYSICAL EXAMINATION CONSTITUTIONAL: No apparent distress. HEENT: Head is normocephalic. Pupils are equal, round. Sclerae anicteric. Mucous membranes of the mouth are moist. No JVD. No carotid bruit. CHEST EXAMINATION: Lungs are clear to auscultation. No chest wall tenderness is noted on palpation or with deep breathing. Diminished bilaterally. HEART EXAMINATION: Regular rate and rhythm. S1, S2 heard. Systolic ejection murmur at the apex, no gallops or rub. EXTREMITIES: 2+ peripheral pulses, no lower extremity edema and no calf ten derness. ASSESSMENT Chest pain, atypical for angina. An acute coronary event has been ruled out. Coronary artery disease s/p bypass grafting and subsequent PCI's Valvular heart disease s/p mitral valve replacement Peripheral vascular disease Hypertension Dyslipidemia Diabetes mellitus Chronic nicotine dependence PLAN An acute coronary event has been ruled out. There are no EKG changes to suggest acute ischemia. Echocardiogram has been obtained and will be reviewed. Perform dobutamine stress echo. If negative she can be discharged home to follow with her primary clinical associate in [place]. Nurse Practitioner note has been reviewed, I agree with a documented findings and plan of care. Patient was seen and examined. Objective - Vital Signs Vital signs: Vital Signs Temp 97.5 F L 05/24/20 08:58 Pulse 67 05/24/20 08:58 Resp 14 05/24/20 08:58 BP 119/79 05/24/20 08:58 Pulse Ox 100 05/24/20 08:58 Intake & Output 05/23/20 05/24/20 05/24/20 18:59 06:59 18:59 Intake Total 720 415 Output Total 0 700 Balance 720 -285 Intake: Oral 720 415 Output: Urine 0 700 Other: Voiding Method Toilet Toilet # Voids 2 1 # Bowel Movements 3 - Labs CBC & Chem 7: 05/21/20 11:47 05/24/20 07:31 Labs: Abnormal Lab Results - Last 24 Hours (Table) 05/23/20 05/23/20 05/24/20 Range/Units 12:02 20:05 07:31 BUN 27 H (7-17) mg/dL Creatinine 1.39 H (0.52-1.04) mg/dL Glucose 73 L (74-99) mg/dL POC Glucose (mg/dL) 126 H 144 H (75-99) mg/dL
[2020-05-24] MEDS: INSULIN DETEMIR (LEVEMIR) 100 UNIT/ML SYR SQ SCH (11:41)
[2020-05-24] MEDS: FUROSEMIDE 40 MG TAB PO SCH (11:41)
[2020-05-24] MEDS: levETIRAcetam 500 MG TAB PO SCH (11:41)
[2020-05-24] MEDS: RANOLAZINE 500 MG TAB.ER.12H PO SCH (11:42)
[2020-05-24] MEDS: ASPIRIN 81 MG PO SCH (11:42)
[2020-05-24] MEDS: SERTRALINE 50 MG TAB PO SCH (11:42)
[2020-05-24] MEDS: POTASSIUM CHLORIDE ER 20 MEQ TAB.ER PO SCH (11:42)
[2020-05-24] MEDS: ATORVASTATIN 80 MG TAB PO SCH (11:42)
[2020-05-24] MEDS: ISOSORBIDE MONONITRATE ER 30 MG TAB.ER.24H PO SCH (11:43)
[2020-05-24] MEDS: METOPROLOL TARTRATE 25 MG TAB PO SCH (11:43)
[2020-05-24 11:50] LABS: Glucose,Whole Blood 139 mg/dL (75-99)
[2020-05-24] MEDS: FLUTICASONE 44 MCG INHALER INHALATION SCH (12:17)
[2020-05-24] MEDS: FORMOTEROL FUMARATE 20 MCG/2 ML NEBU INHALATION SCH (12:17)
[2020-05-24] MEDS: TICAGRELOR 90 MG TAB PO SCH (13:51)
--- NOTE | 2020-05-24 14:55 | ECHOF ---
Referral Reason:ACS MEASUREMENTS -------- HEIGHT: 162.6 cm WEIGHT: 72.6 kg BP: IVSd: 0.9 cm (0.6 - 1.1) LVIDd: 3.4 cm (3.9 - 5.3) LVPWd: 1.1 cm (0.6 - 1.1) IVSs: 1.2 cm LVIDs: 1.7 cm LVPWs: 1.5 cm Ao Diam: 2.4 cm (2.0 - 3.7) LA Diam: 3.3 cm (2.7 - 3.8) AV Cusp: 1.5 cm (1.5 - 2.6) MV E Russ: 1.36 m/s MV DecT: 312 ms MV A Russ: 1.78 m/s MV E/A Ratio: 0.76 RAP: 5.00 mmHg RVSP: 13.38 mmHg FINDINGS -------- This was a technically difficult study with suboptimal views. The left ventricular size is normal. Left ventricular wall thickness is normal. Overall left vent ricular systolic function is normal with, an EF between 55 - 60 %. The right ventricle is normal in size. The left atrial size is normal. The right atrial size is normal. Lumason used The aortic valve is trileaflet and appears structurally normal. Mild mitral regurgitation is present. The peak and mean MV gradients are 13.15mmHg 6.01mmHg as beulah sured by doppler. Normally functioning bioprosthetic mitral valve. The tricuspid valve appears structurally normal. Mild tricuspid regurgitation present. Right vent ricular systolic pressure is normal at < 35 mmHg. There is no pulmonic regurgitation present. The aortic root size is normal. IVC Not well visulized. There is no pericardial effusion. CONCLUSIONS -------- 1. The left ventricular size is normal. 2. Left ventricular wall thickness is normal. 3. Overall left ventricular systolic function is normal with, an EF between 55 - 60 %. 4. The peak and mean MV gradients are 13.15mmHg 6.01mmHg as measured by doppler. 5. Normally functioning bioprosthetic mitral valve. 6. Mild tricuspid regurgitation present. 7. There is no pericardial effusion. RESIDENTIAL SUBCONTRACTOR: Maria R Valverde RDCS
--- NOTE | 2020-05-24 15:54 | P.STRESS ---
- Stress Test Note Stress Test Results/Findings: Exam Performed: dobutamine stress echo Exam Date: 05/24/20 Reason for Exam: CHEST PAIN Height: 5 ft 4 in Weight: 72.57 kg Protocol: DSE Stage: 5 Duration of Exercise: 14:30 Resting Heart Rate: 69 Resting Blood Pressure: 108/85 Maximum Achieved Heart Rate: 120 Maximum Achieved Blood Pressure: 151/62 85% PMHR: 142 100% PMHR: 167 METS: NA Technologist Comment: Stress Test Results/Findings: Baseline heart rate 69 beats a minute, Baseline blood pressure 108/80 mmHg Baseline telemetry ECG shows normal sinus rhythm with normal ST segments Patient received dobutamine infusion per protocol normal heart rate and blood pressure response No definite ECG is for ischemia no arrhythmias noted Recent 2-D echo May showed normal LV systolic function without segmental wall motion abnormalities We dobutamine there was a stepwise improvement in overall LV contractility without development of any wall motion normalities At recovery regional global LV systolic function with normal Impression no ECG or echocardiographic evidence for ischemia
--- NOTE | 2020-05-24 17:06 | P.DS ---
Providers Date of admission: 05/24/20 08:59 Attending physician: Obie Gonzalez MD Consults: 05/21/20 13:20 Consult Physician Routine Consulting Provider: Jo Ann Zelaya Consult Reason/Comments: CP Do you want consulting provider notified?: Yes Primary care physician: Physician Nonstaff Hospital Course: 54-year-old with a history of severe peripheral artery Disease and coronary artery disease came in with chest pain, cardiology evaluated the patient troponins are negative. Considering the complexity of her vascular disease cardiology is trying to contact her regulatory compliance director to make further recommen dations. Meantime echocardiac exam is being obtained. 05/23/2020 she is still complaining of on and off chest pain. Please refer to cardiology documentation for further details of management and plan regarding her chest pain 05/24/2020 Patient carries complain of chest pain, cardiology ordered a stress test which was negative. Patient was advised to follow-up with her regular regulatory compliance director. No further intervention is being planned by cardiology. Patient's potassium improved is around 4 had mild hemolysis. Patient has mildly elevated serum creatinine because of the complexity of her heart failure and medical problems not changing any medication patient will be asked to closely follow up with her PCP and her regulatory compliance director who no her better. I did not make any changes to her home medications. PHYSICAL EXAMINATION: GENERAL: The patient is alert and oriented x3, not in any acute distress. Well developed, well nourished. HEENT: Pupils are round and equally reacting to light. EOMI. No scleral icterus. No conjunctival pallor. Normocephalic, atraumatic. No pharyngeal erythema. No thyromegaly. CARDIOVASCULAR: S1 and S2 present. No murmurs, rubs, or gallops. PULMONARY: Chest is clear to auscultation, no wheezing or crackles. ABDOMEN: Soft, nontender, nondistended, normoactive bowel sounds. No palpable organomegaly. MUSCULOSKELETAL: No joint swelling or deformity. EXTREMITIES: No cyanosis, clubbing, or pedal edema. NEUROLOGICAL: Gross neurological examination did not reveal any focal deficits. SKIN: No rashes. Assessment and Plan Plan: chest pain: Ruled out acute coronary syndromes , stress test was done which was negative. -mild hyperkalemia secondary to hemodialysis and improved now -History of coronary artery disease with multiple stents in the past less CABG. -possible chronic kidney disease stage II -Congestive heart failure chronic systolic dysfunction EF is unknown patient is not in heart failure exacerbation. -Continue nicotine use: Patient quit smoking and recently started back again: Extensive counseling regarding this was provided -History of mitral valve prolapse -history of seizures in the past for which patient is on antiseizure medications which will be continued -Hyperlipidemia -Hypertension -Type 2 diabetes mellitus for which patient is on Levemir along with sliding scale which will be resumed -Depression Patient Condition at Discharge: Stable Plan - Discharge Summary Discharge Rx Participant: No New Discharge Prescriptions: Continue Folic Acid 1 mg PO DAILY tiZANidine [Zanaflex] 8 mg PO Q8H Spironolactone 25 mg PO HS Sertraline [Zoloft] 50 mg PO DAILY Ferrous Sulfate [Iron (65 MG Elemental)] 325 mg PO DAILY Calcium Carbonate [Calcium] 600 mg PO BID Salmeterol Xinafoate [Serevent Diskus] 1 puff INHALATION RT-BID PRN PRN Reason: Shortness Of Breath Ranolazine [Ranexa] 1,000 mg PO BID QUEtiapine [SEROquel] 50 mg PO HS Potassium Chloride ER [K-Dur 20] 20 meq PO DAILY Mirtazapine [Remeron] 45 mg PO HS INSULIN ASPART (NovoLOG) [NovoLOG (formulary)] See Protocol SQ ACHS lisinopriL [Zestril] 2.5 mg PO DAILY Metoprolol Tartrate [Lopressor] 25 mg PO BID Loperamide [Imodium] 2 mg PO TID PRN PRN Reason: Diarrhea Lidocaine 5% Patch [Lidoderm 5% Patch] 1 patch TOPICAL DAILY PRN PRN Reason: Pain Levothyroxine Sodium [Synthroid] 175 mcg PO DAILY levETIRAcetam [Keppra] 500 mg PO BID Aspirin 81 mg PO DAILY hydrOXYzine pamoate [Vistaril] 25 mg PO TID Isosorbide Mononitrate ER [Imdur] 30 mg PO DAILY Insulin Glargine,Hum.rec.anlog [Lantus Solostar] 28 unit SQ BID Furosemide [Lasix] 40 mg PO DAILY Ticagrelor [Brilinta] 90 mg PO BID Fluticasone Propionate [Flovent Diskus] 1 puff INHALATION RT-BID PRN PRN Reason: Shortness Of Breath Cyclobenzaprine [Flexeril] 10 mg PO TID Atorvastatin [Lipitor] 80 mg PO DAILY Albuterol Inhaler [Ventolin Hfa Inhaler] 2 puff INHALATION RT-Q4H PRN PRN Reason: Shortness Of Breath ARIPiprazole [Abilify] 5 mg PO HS Discharge Medication List ARIPiprazole [Abilify] 5 mg PO HS 05/21/20 [History] Albuterol Inhaler [Ventolin Hfa Inhaler] 2 puff INHALATION RT-Q4H PRN 05/21/20 [History] Aspirin 81 mg PO DAILY 05/21/20 [History] Atorvastatin [Lipitor] 80 mg PO DAILY 05/21/20 [History] Calcium Carbonate [Calcium] 600 mg PO BID 05/21/20 [History] Cyclobenzaprine [Flexeril] 10 mg PO TID 05/21/20 [History] Ferrous Sulfate [Iron (65 MG Elemental)] 325 mg PO DAILY 05/21/20 [History] Fluticasone Propionate [Flovent Diskus] 1 puff INHALATION RT-BID PRN 05/21/20 [History] Folic Acid 1 mg PO DAILY 05/21/20 [History] Furosemide [Lasix] 40 mg PO DAILY 05/21/20 [History] INSULIN ASPART (NovoLOG) [NovoLOG (formulary)] See Protocol SQ ACHS 05/21/20 [History] Insulin Glargine,Hum.rec.anlog [Lantus Solostar] 28 unit SQ BID 05/21/20 [Hi story] Isosorbide Mononitrate ER [Imdur] 30 mg PO DAILY 05/21/20 [History] Levothyroxine Sodium [Synthroid] 175 mcg PO DAILY 05/21/20 [History] Lidocaine 5% Patch [Lidoderm 5% Patch] 1 patch TOPICAL DAILY PRN 05/21/20 [History] Loperamide [Imodium] 2 mg PO TID PRN 05/21/20 [History] Metoprolol Tartrate [Lopressor] 25 mg PO BID 05/21/20 [History] Mirtazapine [Remeron] 45 mg PO HS 05/21/20 [History] Potassium Chloride ER [K-Dur 20] 20 meq PO DAILY 05/21/20 [History] QUEtiapine [SEROquel] 50 mg PO HS 05/21/20 [History] Ranolazine [Ranexa] 1,000 mg PO BID 05/21/20 [History] Salmeterol Xinafoate [Serevent Diskus] 1 puff INHALATION RT-BID PRN 05/21/20 [History] Sertraline [Zoloft] 50 mg PO DAILY 05/21/20 [History] Spironolactone 25 mg PO HS 05/21/20 [History] Ticagrelor [Brilinta] 90 mg PO BID 05/21/20 [History] hydrOXYzine pamoate [Vistaril] 25 mg PO TID 05/21/20 [History] levETIRAcetam [Keppra] 500 mg PO BID 05/21/20 [History] lisinopriL [Zestril] 2.5 mg PO DAILY 05/21/20 [History] tiZANidine [Zanaflex] 8 mg PO Q8H 05/21/20 [History] Follow up Appointment(s)/Referral(s): Nonstaff,Physician [Primary Care Provider] - 1-2 days Activity/Diet/Wound Care/Special Instructions: follow-up with regulatory compliance director in [place]. Discharge Disposition: HOME SELF-CARE
== END 2020-05-24 15:31 | disposition home or self-care (01) | DRG 313 ==
LOC: EC 11:08 → 3NCARDOBS 13:20 → OBSVTOIN 05-24 08:59
PROVIDERS: ADMIT Internal Medicine; ATTEND Internal Medicine
DX: R07.89 Other chest pain (principal); I13.0 Hypertensive heart and chronic kidney disease with heart failure and stage 1 through stage 4 chronic kidney disease, or unspecified chronic kidney disease; I50.22 Chronic systolic (congestive) heart failure; E11.22 Type 2 diabetes mellitus with diabetic chronic kidney disease; E11.51 Type 2 diabetes mellitus with diabetic peripheral angiopathy without gangrene; F31.9 Bipolar disorder, unspecified; N18.2 Chronic kidney disease, stage 2 (mild); Z79.4 Long term (current) use of insulin; G40.909 Epilepsy, unspecified, not intractable, without status epilepticus; M06.9 Rheumatoid arthritis, unspecified; I25.10 Atherosclerotic heart disease of native coronary artery without angina pectoris; E87.5 Hyperkalemia; E78.5 Hyperlipidemia, unspecified; F17.200 Nicotine dependence, unspecified, uncomplicated; Z71.6 Tobacco abuse counseling; Z95.2 Presence of prosthetic heart valve; Z95.5 Presence of coronary angioplasty implant and graft; Z95.1 Presence of aortocoronary bypass graft; Z79.82 Long term (current) use of aspirin; Z79.51 Long term (current) use of inhaled steroids; Z79.890 Hormone replacement therapy; Z79.02 Long term (current) use of antithrombotics/antiplatelets; Z79.899 Other long term (current) drug therapy; Z88.8 Allergy status to other drugs, medicaments and biological substances
CPT/HCPCS: 36415; 71046; 80048; 80053; 83735; 84484; 85025; 85610; 85730; 93005; 93306; 93351; 96374; 96375; 99285

== ENCOUNTER 2020-06-03 19:29 | Observation (INO) | payer MEDICARE, OTHER ==
[2020-06-03] MEDS ORDERED: NITROGLYCERIN OINT 1 INCH/GM PACKET TOPICAL STA (19:50)
[2020-06-03] MEDS ORDERED: ASPIRIN 81 MG PO STA (19:50)
[2020-06-03] MEDS ORDERED: METOCLOPRAMIDE 5 MG/ML 2 ML VIAL IVP STA (19:52)
--- NOTE | 2020-06-03 19:52 | ED ---
General Adult HPI - General Source: patient, EMS, RN notes reviewed, old records reviewed Mode of arrival: EMS <Jamaal Richard - Last Filed: 06/03/20 20:57> <Tato Holley - Last Filed: 06/03/20 21:44> - General Chief complaint: Chest Pain Stated complaint: chest pain Time Seen by Provider: 06/03/20 19:35 - History of Present Illness Initial comments: This is a 54-year-old female with past medical history significant for coronary bypass surgery multiple stent placements diabetes hypertension high cholesterol and smokes. Patient comes in today because she's been experiencing chest pain for last 2 hours she states she's very nauseated and did vomit times one. Patient denies any recent fever chills or cough. Patient denies any significant shortness of breath. Patient denies any diaphoretic episodes. Patient denies any lightheadedness dizziness or near syncopal episode. Patient denies any abdominal pain patient denies any diarrhea. Patient denies any swelling to legs or calf tenderness. (Jamaal Richard) - Related Data Home Medications Medication Instructions Recorded Confirmed ARIPiprazole [Abilify] 5 mg PO HS 05/21/20 05/21/20 Albuterol Inhaler [Ventolin Hfa 2 puff INHALATION RT-Q4H PRN 05/21/20 05/21/20 Inhaler] Aspirin 81 mg PO DAILY 05/21/20 05/21/20 Atorvastatin [Lipitor] 80 mg PO DAILY 05/21/20 05/21/20 Calcium Carbonate [Calcium] 600 mg PO BID 05/21/20 05/21/20 Cyclobenzaprine [Flexeril] 10 mg PO TID 05/21/20 05/21/20 Ferrous Sulfate [Iron (65 MG 325 mg PO DAILY 05/21/20 05/21/20 Elemental)] Fluticasone Propionate [Flovent 1 puff INHALATION RT-BID PRN 05/21/20 05/21/20 Diskus] Folic Acid 1 mg PO DAILY 05/21/20 05/21/20 Furosemide [Lasix] 40 mg PO DAILY 05/21/20 05/21/20 INSULIN ASPART (NovoLOG) [NovoLOG See Protocol SQ ACHS 05/21/20 05/21/20 (formulary)] Insulin Glargine,Hum.rec.anlog 28 unit SQ BID 05/21/20 05/21/20 [Lantus Solostar] Isosorbide Mononitrate ER [Imdur] 30 mg PO DAILY 05/21/20 05/21/20 Levothyroxine Sodium [Synthroid] 175 mcg PO DAILY 05/21/20 05/21/20 Lidocaine 5% Patch [Lidoderm 5% 1 patch TOPICAL DAILY PRN 05/21/20 05/21/20 Patch] Loperamide [Imodium] 2 mg PO TID PRN 05/21/20 05/21/20 Metoprolol Tartrate [Lopressor] 25 mg PO BID 05/21/20 05/21/20 Mirtazapine [Remeron] 45 mg PO HS 05/21/20 05/21/20 Potassium Chloride ER [K-Dur 20] 20 meq PO DAILY 05/21/20 05/21/20 QUEtiapine [SEROquel] 50 mg PO HS 05/21/20 05/21/20 Ranolazine [Ranexa] 1,000 mg PO BID 05/21/20 05/21/20 Salmeterol Xinafoate [Serevent 1 puff INHALATION RT-BID PRN 05/21/20 05/21/20 Diskus] Sertraline [Zoloft] 50 mg PO DAILY 05/21/20 05/21/20 Spironolactone 25 mg PO HS 05/21/20 05/21/20 Ticagrelor [Brilinta] 90 mg PO BID 05/21/20 05/21/20 hydrOXYzine pamoate [Vistaril] 25 mg PO TID 05/21/20 05/21/20 levETIRAcetam [Keppra] 500 mg PO BID 05/21/20 05/21/20 lisinopriL [Zestril] 2.5 mg PO DAILY 05/21/20 05/21/20 tiZANidine [Zanaflex] 8 mg PO Q8H 05/21/20 05/21/20 Allergies Allergy/AdvReac Type Severity Reaction Status Date / Time gabapentin Allergy Anaphylaxis Verified 05/21/20 15:17 Review of Systems ROS Other: All systems not noted in ROS Statement are negative. <Jamaal Richard - Last Filed: 06/03/20 20:57> ROS Other: All systems not noted in ROS Statement are negative. <Michael Holleyssethel Jack - Last Filed: 06/03/20 21:44> ROS Statement: Those systems with pertinent positive or pertinent negative responses have been documented in the HPI. Past Medical History Past Medical History: Coronary Artery Disease (CAD), Chest Pain / Angina History of Any Multi-Drug Resistant Organisms: None Reported Past Surgical History: Coronary Bypass/CABG, Heart Catheterization Additional Past Surgical History / Comment(s): CABG in 2013, Mitro valve on 2017, Stent Past Anesthesia/Blood Transfusion Reactions: No Reported Reaction Past Psychological History: Bipolar Smoking Status: Current some day smoker Past Alcohol Use History: None Reported Past Drug Use History: None Reported <Jamaal Richard - Last Filed: 06/03/20 20:57> General Exam <Jamaal Richard - Last Filed: 06/03/20 20:57> - General Exam Comments Initial Comments: GENERAL: Patient is well-developed and well-nourished. Patient is nontoxic and well- hydrated and is in mild distress. ENT: Neck is soft and supple. No significant lymphadenopathy is noted. Oropharynx is clear. Moist mucous membranes. Neck has full range of motion without eliciting any pain. EYES: The sclera were anicteric and conjunctiva were pink and moist. Extraocular movements were intact and pupils were equal round and reactive to light. Eyelids were unremarkable. PULMONARY: Unlabored respirations. Good breath sounds bilaterally. No audible rales rhonchi or wheezing was noted. CARDIOVASCULAR: There is a regular rate and rhythm without any murmurs gallops or rubs. ABDOMEN: Soft and nontender with normal bowel sounds. No palpable organomegaly was noted. There is no palpable pulsatile mass. SKIN: Skin is clear with no lesions or rashes and otherwise unremarkable. NEUROLOGIC: Patient is alert and oriented x3. Cranial nerves II through XII are grossly intact. Motor and sensory are also intact. Normal speech, volume and content. Symmetrical smile. MUSCULOSKELETAL: Normal extremities with adequate strength and full range of motion. No lower extremity swelling or edema. No calf tenderness. LYMPHATICS: No significant lymphadenopathy is noted PSYCHIATRIC: Normal psychiatric evaluation. (Jamaal Richard) Course Vital Signs 06/03/20 06/03/20 06/03/20 19:35 20:50 20:51 Temperature 98.9 F Pulse Rate 96 93 Respiratory 14 16 Rate Blood Pressure 128/78 130/68 O2 Sat by Pulse 99 100 Oximetry 06/03/20 21:25 Temperature Pulse Rate 101 H Respiratory 20 Rate Blood Pressure 126/70 O2 Sat by Pulse 99 Oximetry Medical Decision Making - Lab Data Result diagrams: 06/03/20 20:34 <Jamaal Richard - Last Filed: 06/03/20 20:57> - Lab Data Result diagrams: 06/03/20 20:34 06/03/20 20:34 <Tato Holley - Last Filed: 06/03/20 21:44> - Medical Decision Making EKG shows normal sinus rhythm at 94 bpm NC interval 174 QRS is 84 QT interval 42 QTC is 502. Patient's EKG shows a prolonged QT interval no ST segment elevation or depression is noted Dr. Holley will be taking over the care of this patient at 9 PM (Jamaal Richard) Patient is sent out to me by previous shift physician, Dr. Richard. Briefly, patient is a 54-year-old female multiple comorbidities. She presents today with chest pain. She has multiple risk factors. Plan send also follow-up with pending labs. Pending labs are resulted. CBC unremarkable. Coag panel is negative. Metabol ic panel shows magnesium 1.4. Patient given Mag-Ox tab troponins negative. Chest x-ray is unremarkable. Repeat EKG was performed showing no dynamic changes. Patient was adamant about receiving opiates. She is given 4 mg of morphine with significant improvement of her chest pain. Patient's old. Bedside. Considering all of her medical comorbidities she will be admitted with consultation to cardiology. Patient case was discussed Dr. Bowen is willing to accept patients care. Patient started on heparin. (Tato Holley) - Lab Data Lab Results 06/03/20 06/03/20 06/03/20 Range/Units 20:34 20:34 20:34 WBC 7.5 (3.8-10.6) k/uL RBC 4.50 (3.80-5.40) m/uL Hgb 13.4 (11.4-16.0) gm/dL Hct 39.8 (34.0-46.0) % MCV 88.5 (80.0-100.0) fL MCH 29.8 (25.0-35.0) pg MCHC 33.6 (31.0-37.0) g/dL RDW 14.1 (11.5-15.5) % Plt Count 279 (150-450) k/uL MPV 7.1 Neutrophils % 68 % Lymphocytes % 24 % Monocytes % 4 % Eosinophils % 1 % Basophils % 1 % Neutrophils # 5.1 (1.3-7.7) k/uL Lymphocytes # 1.8 (1.0-4.8) k/uL Monocytes # 0.3 (0-1.0) k/uL Eosinophils # 0.1 (0-0.7) k/uL Basophils # 0.1 (0-0.2) k/uL PT 10.4 (9.0-12.0) sec INR 1.0 (<1.2) APTT 23.1 (22.0-30.0) sec Sodium 134 L (137-145) mmol/L Potassium 4.6 (3.5-5.1) mmol/L Chloride 101 (98-107) mmol/L Carbon Dioxide 25 (22-30) mmol/L Anion Gap 8 mmol/L BUN 13 (7-17) mg/dL Creatinine 0.92 (0.52-1.04) mg/dL Est GFR (CKD-EPI)AfAm 83 (>60 ml/min/1.73 sqM) Est GFR (CKD-EPI)NonAf 72 (>60 ml/min/1.73 sqM) Glucose 379 H (74-99) mg/dL Calcium 9.1 (8.4-10.2) mg/dL Magnesium 1.4 L (1.6-2.3) mg/dL Total Bilirubin 0.7 (0.2-1.3) mg/dL AST 40 H (14-36) U/L ALT 24 (4-34) U/L Alkaline Phosphatase 104 (38-126) U/L Troponin I (0.000-0.034) ng/mL Total Protein 7.5 (6.3-8.2) g/dL Albumin 4.5 (3.5-5.0) g/dL 06/03/20 Range/Units 20:34 WBC (3.8-10.6) k/uL RBC (3.80-5.40) m/uL Hgb (11.4-16.0) gm/dL Hct (34.0-46.0) % MCV (80.0-100.0) fL MCH (25.0-35.0) pg MCHC (31.0-37.0) g/dL RDW (11.5-15.5) % Plt Count (150-450) k/uL MPV Neutrophils % % Lymphocytes % % Monocytes % % Eosinophils % % Basophils % % Neutrophils # (1.3-7.7) k/uL Lymphocytes # (1.0-4.8) k/uL Monocytes # (0-1.0) k/uL Eosinophils # (0-0.7) k/uL Basophils # (0-0.2) k/uL PT (9.0-12.0) sec INR (<1.2) APTT (22.0-30.0) sec Sodium (137-145) mmol/L Potassium (3.5-5.1) mmol/L Chloride (98-107) mmol/L Carbon Dioxide (22-30) mmol/L Anion Gap mmol/L BUN (7-17) mg/dL Creatinine (0.52-1.04) mg/dL Est GFR (CKD-EPI)AfAm (>60 ml/min/1.73 sqM) Est GFR (CKD-EPI)NonAf (>60 ml/min/1.73 sqM) Glucose (74-99) mg/dL Calcium (8.4-10.2) mg/dL Magnesium (1.6-2.3) mg/dL Total Bilirubin (0.2-1.3) mg/dL AST (14-36) U/L ALT (4-34) U/L Alkaline Phosphatase (38-126) U/L Troponin I <0.012 (0.000-0.034) ng/mL Total Protein (6.3-8.2) g/dL Albumin (3.5-5.0) g/dL Disposition <Jamaal Richard - Last Filed: 06/03/20 20:57> Decision Time: 21:44 <Tato Holley - Last Filed: 06/03/20 21:44> Clinical Impression: Chest pain Disposition: ADMITTED IP TO THIS HOSP Condition: Fair Referrals: None,Stated [Primary Care Provider] - 1-2 days
[2020-06-03 20:55] LABS: Basophils # (A) 0.1 k/uL (0-0.2); Basophils % (A) 1 %; Eosinophils # (A) 0.1 k/uL (0-0.7); Eosinophils % (A) 1 %; HCT 39.8 % (34.0-46.0); HGB 13.4 gm/dL (11.4-16.0); Lymphocytes # (A) 1.8 k/uL (1.0-4.8); Lymphocytes % (A) 24 %; MCH 29.8 pg (25.0-35.0); MCHC 33.6 g/dL (31.0-37.0); MCV 88.5 fL (80.0-100.0); Mean Platelet Volume 7.1; Monocytes # (A) 0.3 k/uL (0-1.0); Monocytes % (A) 4 %; Neutrophils # (A) 5.1 k/uL (1.3-7.7); Neutrophils % (A) 68 %; Platelet Count 279 k/uL (150-450); RDW 14.1 % (11.5-15.5); WBC 7.5 k/uL (3.8-10.6)
[2020-06-03 21:05] LABS: Albumin 4.5 g/dL (3.5-5.0); Calcium 9.1 mg/dL (8.4-10.2); Magnesium 1.4 mg/dL (1.6-2.3); Potassium 4.6 mmol/L (3.5-5.1); Total Bilirubin 0.7 mg/dL (0.2-1.3); Total Protein 7.5 g/dL (6.3-8.2)
[2020-06-03] MEDS ORDERED: MORPHINE SULFATE 4 MG/ML SYRINGE IV STA (21:11)
--- NOTE | 2020-06-03 21:11 | XR ---
EXAMINATION TYPE: XR chest 2V DATE OF EXAM: 06/03/2020 COMPARISON: 05/21/2020 HISTORY: Chest pain TECHNIQUE: FINDINGS: Heart and mediastinum are normal. Lungs are clear. Costophrenic angles are clear. There are sternal wires. There is cardiac valve surgery. Bony thorax is intact. There are chest leads. IMPRESSION: No active cardiopulmonary disease. No change.
[2020-06-03 21:22] LABS: Partial Thromboplastin Time 23.1 sec (22.0-30.0); Prothrombin Time 10.4 sec (9.0-12.0)
[2020-06-03] MEDS ORDERED: HEPARIN SODIUM,PORCINE 5,000 UNIT/ML 1 ML VIAL IV PRN (21:42)
[2020-06-03] MEDS ORDERED: HEPARIN SODIUM,PORCINE 5,000 UNIT/ML 1 ML VIAL IV ONE (21:42)
[2020-06-03] MEDS ORDERED: MAGNESIUM OXIDE 400 MG TAB PO STA (21:43)
[2020-06-03] MEDS ORDERED: HEPARIN SOD,PORK IN 0.45% NACL 25,000 UNIT in 0.45% NACL 1 250ML.BAG IV SCH (21:45)
[2020-06-03] MEDS ORDERED: NITROGLYCERIN SL TABS 0.4 MG TAB SUBLINGUAL PRN (21:45)
[2020-06-04] MEDS ORDERED: MORPHINE SULFATE 2 MG/ML SYRINGE IVP STA (00:48)
[2020-06-04] MEDS ORDERED: HYDROcodone/APAP 5-325MG 1 EACH TAB PO ONE (06:12)
[2020-06-04 06:58] LABS: Cholesterol 179 mg/dL (<200); HDL Cholesterol 108 mg/dL (40-60); LDL Cholesterol,Calculated 44 mg/dL (0-99); Triglycerides 137 mg/dL (<150)
[2020-06-04] MEDS ORDERED: ASPIRIN 325 MG TAB PO SCH (09:00)
[2020-06-04] MEDS ORDERED: ALBUTEROL NEBULIZED 2.5 MG/3 ML INHALATION PRN (09:18)
[2020-06-04] MEDS ORDERED: tiZANidine 4 MG TAB PO PRN (09:18)
[2020-06-04] MEDS ORDERED: LIDOCAINE 5% PATCH TOPICAL PRN (09:18)
[2020-06-04] MEDS ORDERED: LOPERAMIDE 2 MG CAP PO PRN (09:18)
[2020-06-04 09:32] VITALS: BP 141/80; PULSE 94; RESP 18; TEMP 97.8
--- NOTE | 2020-06-04 09:48 | P.CRDCN ---
History of Present Illness History of present illness: HISTORY OF PRESENTING ILLNESS This is a pleasant 54-year-old female past medical history significant for coronary artery disease s/p multiple stents and 4V bypass grafting 2013, pe ripheral vascular disease s/p revascularization, mitral valve replacement 2016, diabetes mellitus, hypertension, dyslipidemia and chronic nicotine dependence. Exact details of her previous cardiac care are unavailable. According to the patient her last cardiac stent was 02/2020 and she recently has stent placement in the leg and requires a second one. She follows in the office with Dr. Salcedo in [place]. We have been asked to see in consultation for chest pain. She is here in [place] staying with a friend. This is her second admission for chest pain this month. Last admission she underwent a dobutmaine stress test that was negative for stress induced ischemi and echocardiogram revealed preserved LV systolic function with EF 55-60%, normally functioning bioprosthetic mitral valve with mean gradient of 6 mmHg and mild TR. She states yesterday while she was sitting down watching TV she started to feel "funny" in her chest. She states it felt like someone was reaching in and squeezing her heart. The pain was persistent and not improving for over 2 hours prompting her to come in for further evaluation. She had some associated nausea and vomiting at home. She also feels shaky all over but has no documented fevers. She denies shortness of breath, dizziness or palpitations. She states her pain was unrelieved by nitro at home or in the hospital. She was given a norco last night that did work but her pain has returned. DIAGNOSTICS EKG reveals sinus mechanism with poor R-wave progression. Chest xray negative for an acute cardiopulmonary process. Laboratory reviewed, CBC unremarkable, sodium 134, potassium 4.6, creatinine 0.92, magnesium 1.4, cardiac enzymes negative x3, LDL 44. Current cardiac medications include Aldactone 25 mg at bedtime, Ranexa 1000 mg twice a day, Lopressor 25 mg twice a day, lisinopril 2.5 mg twice a day, Imdur 30 mg daily, Lasix 40 mg daily, brilinta 90 mg twice a day, aspirin 81 mg daily and atorvastatin 80 mg daily. REVIEW OF SYSTEMS At the time of my exam: CONSTITUTIONAL: Denies fever or chills. CARDIOVASCULAR: Complains of chest pain. Denies shortness of breath, orthopnea, PND or palpitations. RESPIRATORY: Denies cough. GASTROINTESTINAL: Denies abdominal pain, diarrhea, constipation, nausea or vomiting. MUSCULOSKELETAL: Denies myalgias. NEUROLOGIC: Denies numbness, tingling or weakness. ENDOCRINE: Denies fatigue, weight change, polydipsia or polyurina. GENITOURINARY: Denies burning, hematuria or urgency with micturation. HEMATOLOGIC: Denies history of anemia or bleeding. PHYSICAL EXAMINATION Blood pressure 141/80 heart rate 94 afebrile and maintaining oxygen saturation on room air. CONSTITUTIONAL: No apparent distress. HEENT: Head is normocephalic. Pupils are equal, round. Sclerae anicteric. Mucous membranes of the mouth are moist. No JVD. No carotid bruit. CHEST EXAMINATION: Lungs are clear to auscultation. No chest wall tenderness is noted on palpation or with deep breathing. HEART EXAMINATION: Regular rate and rhythm. S1, S2 heard. Systolic ejection murmur at the apex, no gallops or rub. ABDOMEN: Soft, nontender. Positive bowel sounds. EXTREMITIES: 2+ peripheral pulses, no lower extremity edema and no calf tende rness. NEUROLOGIC EXAMINATION: Patient is awake, alert and oriented x3. ASSESSMENT Chest pain, atypical for angina. Hypomagnesemia s/p replacement Coronary artery disease s/p bypass grafting and multiple PCI's most recently 02/2020 Valvular heart disease s/p mitral valve replacement Peripheral vascular disease Hypertension Dylipidemia Diabetes mellitus Chronic nicotine dependence PLAN An acute coronary event has been ruled out. Discontinue IV heparin. Recent stress test was negative for stress induced ischemia. Pain is atypical for angina. Consider atypical presentation for COVID-19, no test has been ordered. Recommend she follow up with her primary residential care facility manager in the outpatient setting. Continue current cardiac medications as previously ordered. No further cardiac work-up at this time. Thank you kindly for this consultation. Nurse Practitioner note has been reviewed, I agree with a documented findings and plan of care. Patient was seen and examined. Past Medical History Past Medical History: Coronary Artery Disease (CAD), Chest Pain / Angina History of Any Multi-Drug Resistant Organisms: None Reported Past Surgical History: Coronary Bypass/CABG, Heart Catheterization Additional Past Surgical History / Comment(s): CABG in 2013, Mitro valve on 2017, Stent Past Anesthesia/Blood Transfusion Reactions: No Reported Reaction Past Psychological History: Bipolar Smoking Status: Current some day smoker Past Alcohol Use History: None Reported Past Drug Use History: None Reported Medications and Allergies Home Medications Medication Instructions Recorded Confirmed Type ARIPiprazole [Abilify] 5 mg PO HS 05/21/20 06/03/20 History Albuterol Inhaler [Ventolin Hfa 2 puff INHALATION RT-Q4H PRN 05/21/20 06/03/20 History Inhaler] Aspirin 81 mg PO DAILY 05/21/20 06/03/20 History Atorvastatin [Lipitor] 80 mg PO DAILY 05/21/20 06/03/20 History Calcium Carbonate [Calcium] 600 mg PO BID 05/21/20 06/03/20 History Cyclobenzaprine [Flexeril] 10 mg PO TID 05/21/20 06/03/20 History Ferrous Sulfate [Iron (65 MG 325 mg PO DAILY 05/21/20 06/03/20 History Elemental)] Fluticasone Propionate [Flovent 1 puff INHALATION RT-BID PRN 05/21/20 06/03/20 History Diskus] Folic Acid 1 mg PO DAILY 05/21/20 06/03/20 History Furosemide [Lasix] 40 mg PO DAILY 05/21/20 06/03/20 History INSULIN ASPART (NovoLOG) [NovoLOG See Protocol SQ ACHS 05/21/20 06/03/20 History (formulary)] Insulin Glargine,Hum.rec.anlog 28 unit SQ BID 05/21/20 06/03/20 History [Lantus Solostar] Isosorbide Mononitrate ER [Imdur] 30 mg PO DAILY 05/21/20 06/03/20 History Levothyroxine Sodium [Synthroid] 175 mcg PO DAILY 05/21/20 06/03/20 History Lidocaine 5% Patch [Lidoderm 5% 1 patch TOPICAL DAILY PRN 05/21/20 06/03/20 History Patch] Loperamide [Imodium] 2 mg PO TID PRN 05/21/20 06/03/20 History Metoprolol Tartrate [Lopressor] 25 mg PO BID 05/21/20 06/03/20 History Mirtazapine [Remeron] 45 mg PO HS 05/21/20 06/03/20 History Potassium Chloride ER [K-Dur 20] 20 meq PO DAILY 05/21/20 06/03/20 History QUEtiapine [SEROquel] 50 mg PO HS 05/21/20 06/03/20 History Ranolazine [Ranexa] 1,000 mg PO BID 05/21/20 06/03/20 History Salmeterol Xinafoate [Serevent 1 puff INHALATION RT-BID PRN 05/21/20 06/03/20 History Diskus] Sertraline [Zoloft] 50 mg PO DAILY 05/21/20 06/03/20 History Spironolactone 25 mg PO HS 05/21/20 06/03/20 History Ticagrelor [Brilinta] 90 mg PO BID 05/21/20 06/03/20 History hydrOXYzine pamoate [Vistaril] 25 mg PO TID 05/21/20 06/03/20 History levETIRAcetam [Keppra] 500 mg PO BID 05/21/20 06/03/20 History lisinopriL [Zestril] 2.5 mg PO DAILY 05/21/20 06/03/20 History tiZANidine [Zanaflex] 8 mg PO Q8H PRN 05/21/20 06/03/20 History Allergies Allergy/AdvReac Type Severity Reaction Status Date / Time gabapentin Allergy Anaphylaxis Verified 06/03/20 22:01 Physical Exam Vitals: Vital Signs Temp Pulse Pulse Resp BP BP Pulse Ox 06/04/20 02:55 97.6 F 77 143/71 100 06/03/20 23:31 98.5 F 89 143/64 06/03/20 21:25 101 H 20 126/70 99 06/03/20 20:51 130/68 06/03/20 20:50 93 16 100 06/03/20 19:35 98.9 F 96 14 128/78 99 Intake and Output 06/03/20 06/04/20 06/04/20 22:59 06:59 14:59 Intake Total 70.651 Output Total 250 Balance -179.349 Intake: Intake, IV Titration 70.651 Amount Heparin Sod,Pork in 0.45% 70.651 NaCl 25,000 unit In 0.45 % NaCl 1 250ml.bag @ 12 UNITS/KG/HR 8.981 mls/hr IV .Q24H [facility] Rx#: [id number] Output: Urine 250 Other: Voiding Method Toilet Diaper # Voids 0 Weight 74.843 kg 74.843 kg Results 06/03/20 20:34 06/03/20 20:34 Cardiac Enzymes 06/03/20 06/03/20 06/03/20 Range/Units 20:34 20:34 23:53 AST 40 H (14-36) U/L Troponin I <0.012 <0.012 (0.000-0.034) ng/mL 06/04/20 Range/Units 05:45 AST (14-36) U/L Troponin I <0.012 (0.000-0.034) ng/mL Coagulation 06/03/20 06/04/20 Range/Units 20:34 05:45 PT 10.4 (9.0-12.0) sec APTT 23.1 64.0 H (22.0-30.0) sec Lipids 06/04/20 Range/Units 05:45 Triglycerides 137 (<150) mg/dL Cholesterol 179 (<200) mg/dL HDL Cholesterol 108 H (40-60) mg/dL CBC 06/03/20 Range/Units 20:34 WBC 7.5 (3.8-10.6) k/uL RBC 4.50 (3.80-5.40) m/uL Hgb 13.4 (11.4-16.0) gm/dL Hct 39.8 (34.0-46.0) % Plt Count 279 (150-450) k/uL Comprehensive Metabolic Panel 06/03/20 Range/Units 20:34 Sodium 134 L (137-145) mmol/L Potassium 4.6 (3.5-5.1) mmol/L Chloride 101 (98-107) mmol/L Carbon Dioxide 25 (22-30) mmol/L BUN 13 (7-17) mg/dL Creatinine 0.92 (0.52-1.04) mg/dL Glucose 379 H (74-99) mg/dL Calcium 9.1 (8.4-10.2) mg/dL AST 40 H (14-36) U/L ALT 24 (4-34) U/L Alkaline Phosphatase 104 (38-126) U/L Total Protein 7.5 (6.3-8.2) g/dL Albumin 4.5 (3.5-5.0) g/dL Current Medications Generic Name Dose Route Start Last Admin Trade Name Freq PRN Reason Stop Dose Admin Albuterol Sulfate 2.5 mg 06/04/20 09:18 Albuterol Nebulized 2.5 Mg/3 Ml INHALATION RT-Q4H PRN Shortness Of Breath Aripiprazole 5 mg 06/04/20 21:00 Aripiprazole 5 Mg Tab PO HS CAROLYN Aspirin 325 mg 06/04/20 09:00 06/04/20 09:04 Aspirin 325 Mg Tab PO 325 mg DAILY [facility] Administration Atorvastatin Calcium 80 mg 06/04/20 10:00 Atorvastatin 80 Mg Tab PO DAILY [facility] Cyclobenzaprine HCl 10 mg 06/04/20 10:00 Cyclobenzaprine 10 Mg Tab PO TID [facility] Ferrous Sulfate 325 mg 06/04/20 10:00 Ferrous Sulfate 325 Mg Tab PO DAILY [facility] Folic Acid 1 mg 06/04/20 10:00 Folic Acid 1 Mg Tab PO DAILY [facility] Furosemide 40 mg 06/04/20 10:00 Furosemide 40 Mg Tab PO DAILY [facility] Heparin Sodium (Porcine) 0 unit 06/03/20 21:42 Heparin Sodium,Porcine 5,000 Unit/Ml 1 Ml Vial IV PER PROTOCOL PRN Low PTT Protocol Hydroxyzine Pamoate 25 mg 06/04/20 16:00 Hydroxyzine Pamoate 25 Mg Cap PO TID [facility] Magnesium Sulfate/Dextrose 1 100 mls @ 100 mls/hr 06/04/20 09:30 gm/ IV Solution IVPB 06/04/20 11:29 Q1H [facility] Isosorbide Mononitrate 30 mg 06/05/20 09:00 Isosorbide Mononitrate Er 30 Mg Tab.Er.24h PO DAILY [facility] Levetiracetam 500 mg 06/04/20 21:00 Levetiracetam 500 Mg Tab PO BID [facility] Lidocaine 1 patch 06/04/20 09:18 Lidocaine 5% Patch TOPICAL DAILY PRN Pain Lisinopril 2.5 mg 06/05/20 09:00 Lisinopril 2.5 Mg Tab PO DAILY [facility] Loperamide HCl 2 mg 06/04/20 09:18 Loperamide 2 Mg Cap PO TID PRN Diarrhea Metoprolol Tartrate 25 mg 06/04/20 21:00 Metoprolol Tartrate 25 Mg Tab PO BID [facility] Mirtazapine 45 mg 06/04/20 21:00 Mirtazapine 45 Mg Tablet PO HS [facility] Nitroglycerin 0.4 mg 06/03/20 21:45 Nitroglycerin Sl Tabs 0.4 Mg Tab SUBLINGUAL Q5M PRN Chest Pain Non-Formulary Medication 600 mg 06/04/20 21:00 Calcium Carbonate [Calcium] PO BID CAROLYN Non-Formulary Medication 1 puff 06/04/20 09:18 Fluticasone Propionate [Flovent Diskus] INHALATION RT-BID PRN Shortness Of Breath Non-Formulary Medication 28 unit 06/04/20 09:30 Insulin Glargine,Hum.Rec.Anlog [Lantus Solostar] SQ BID [facility] Non-Formulary Medication 175 mcg 06/05/20 09:00 Levothyroxine Sodium [Synthroid] PO DAILY [facility] Non-Formulary Medication 1,000 mg 06/04/20 21:00 Ranolazine [Ranexa] PO BID [facility] Non-Formulary Medication 1 puff 06/04/20 09:18 Salmeterol 50 Mcg (Mhu) INHALATION RT-BID PRN Shortness Of Breath Potassium Chloride 20 meq 06/05/20 09:00 Potassium Chloride Er 20 Meq Tab.Er PO DAILY [facility] Sertraline HCl 50 mg 06/05/20 09:00 Sertraline 50 Mg Tab PO DAILY [facility] Spironolactone 25 mg 06/04/20 21:00 Spironolactone 25 Mg Tab PO HS [facility] Ticagrelor 90 mg 06/04/20 21:00 Ticagrelor 90 Mg Tab PO BID [facility] Tizanidine HCl 8 mg 06/04/20 09:18 Tizanidine 4 Mg Tab PO Q8H PRN muscle spasms Intake and Output 06/03/20 06/04/20 06/04/20 22:59 06:59 14:59 Intake Total 70.651 Output Total 250 Balance -179.349 Intake: Intake, IV Titration 70.651 Amount Heparin Sod,Pork in 0.45% 70.651 NaCl 25,000 unit In 0.45 % NaCl 1 250ml.bag @ 12 UNITS/KG/HR 8.981 mls/hr IV .Q24H [facility] Rx#: [id number] Output: Urine 250 Other: Voiding Method Toilet Diaper # Voids 0 Weight 74.843 kg 74.843 kg 06/03/20 20:34 06/03/20 20:34
[2020-06-04] MEDS ORDERED: TICAGRELOR 90 MG TAB PO SCH (10:00)
[2020-06-04] MEDS ORDERED: ISOSORBIDE MONONITRATE ER 30 MG TAB.ER.24H PO SCH (10:00)
[2020-06-04] MEDS ORDERED: levETIRAcetam 500 MG TAB PO SCH (10:00)
[2020-06-04] MEDS ORDERED: CYCLOBENZAPRINE 10 MG TAB PO SCH (10:00)
[2020-06-04] MEDS ORDERED: LEVOTHYROXINE 100 MCG TAB PO SCH (10:00)
[2020-06-04] MEDS ORDERED: FOLIC ACID 1 MG TAB PO SCH (10:00)
[2020-06-04] MEDS ORDERED: ATORVASTATIN 80 MG TAB PO SCH (10:00)
[2020-06-04] MEDS ORDERED: FERROUS SULFATE 325 MG TAB PO SCH (10:00)
[2020-06-04] MEDS ORDERED: RANOLAZINE 500 MG TAB.ER.12H PO SCH (10:00)
[2020-06-04] MEDS ORDERED: POTASSIUM CHLORIDE ER 20 MEQ TAB.ER PO SCH (10:00)
[2020-06-04] MEDS ORDERED: hydrOXYzine pamoate 25 MG CAP PO SCH (10:00)
[2020-06-04] MEDS ORDERED: INSULIN DETEMIR (LEVEMIR) 100 UNIT/ML SYR SQ SCH (10:00)
[2020-06-04] MEDS ORDERED: SERTRALINE 50 MG TAB PO SCH (10:00)
[2020-06-04] MEDS ORDERED: CALCIUM CARBONATE 500 MG CHEWABLE PO SCH (10:00)
[2020-06-04] MEDS ORDERED: METOPROLOL TARTRATE 25 MG TAB PO SCH (10:00)
[2020-06-04] MEDS ORDERED: FUROSEMIDE 40 MG TAB PO SCH (10:00)
[2020-06-04] MEDS: MAGNESIUM SULFATE-D5W PMX 1 GM in DEXTROSE/WATER 1 100ML.BAG IVPB SCH ×2 (10:47→12:10)
[2020-06-04] MEDS ORDERED: LEVOTHYROXINE 75 MCG TAB PO SCH (11:00)
[2020-06-04 11:03] LABS: Glucose,Whole Blood 327 mg/dL (75-99)
--- NOTE | 2020-06-04 11:41 | P.HPIM ---
History of Present Illness This is a 54-year-old female with extensive past medical history of coronary artery bypass grafting and multiple stents in the past along with peripheral vascular disease and compensative chest pain pressure-like sensation. Patient was evaluated by cardiology. Patient was recently admitted in the hospital at that time stress test was done and that was negative and patient was subsequently cleared to be discharged. We will rule out acute coronary syndromes evaluated the patient the patient will further intervention is being r ecommended by them patient was complaining of some nausea which resolved at this time. Patient will follows up with the cardiology in [facility]. Patient was recommended to follow up with the her orthopedic podiatrist and patient is being discharged today. Patient is presently chest pain-free Review of Systems REVIEW OF SYSTEMS: CONSTITUTIONAL: No fever, no malaise, no fatigue. HEENT: No recent visual problems or hearing problems. Denied any sore throat. CARDIOVASCULAR: No orthopnea, PND, no palpitations, no syncope. PULMONARY: No shortness of breath, no cough, no hemoptysis. GASTROINTESTINAL: No diarrhea, no nausea, no vomiting, no abdominal pain. NEUROLOGICAL: No headaches, no weakness, no numbness. HEMATOLOGICAL: Denies any bleeding or petechiae. GENITOURINARY: Denies any burning micturition, frequency, or urgency. MUSCULOSKELETAL/RHEUMATOLOGICAL: Denies any joint pain, swelling, or any muscle pain. ENDOCRINE: Denies any polyuria or polydipsia. The rest of the 14-point review of systems is negative. Past Medical History Past Medical History: Coronary Artery Disease (CAD), Chest Pain / Angina History of Any Multi-Drug Resistant Organisms: None Reported Past Surgical History: Coronary Bypass/CABG, Heart Catheterization Additional Past Surgical History / Comment(s): CABG in 2013, Mitro valve on 2017, Stent Past Anesthesia/Blood Transfusion Reactions: No Reported Reaction Past Psychological History: Bipolar Smoking Status: Current some day smoker Past Alcohol Use History: None Reported Past Drug Use History: None Reported Medications and Allergies Home Medications Medication Instructions Recorded Confirmed Type ARIPiprazole [Abilify] 5 mg PO HS 05/21/20 06/03/20 History Albuterol Inhaler [Ventolin Hfa 2 puff INHALATION RT-Q4H PRN 05/21/20 06/03/20 History Inhaler] Aspirin 81 mg PO DAILY 05/21/20 06/03/20 History Atorvastatin [Lipitor] 80 mg PO DAILY 05/21/20 06/03/20 History Calcium Carbonate [Calcium] 600 mg PO BID 05/21/20 06/03/20 History Cyclobenzaprine [Flexeril] 10 mg PO TID 05/21/20 06/03/20 History Ferrous Sulfate [Iron (65 MG 325 mg PO DAILY 05/21/20 06/03/20 History Elemental)] Fluticasone Propionate [Flovent 1 puff INHALATION RT-BID PRN 05/21/20 06/03/20 History Diskus] Folic Acid 1 mg PO DAILY 05/21/20 06/03/20 History Furosemide [Lasix] 40 mg PO DAILY 05/21/20 06/03/20 History INSULIN ASPART (NovoLOG) [NovoLOG See Protocol SQ ACHS 05/21/20 06/03/20 History (formulary)] Insulin Glargine,Hum.rec.anlog 28 unit SQ BID 05/21/20 06/03/20 History [Lantus Solostar] Isosorbide Mononitrate ER [Imdur] 30 mg PO DAILY 05/21/20 06/03/20 History Levothyroxine Sodium [Synthroid] 175 mcg PO DAILY 05/21/20 06/03/20 History Lidocaine 5% Patch [Lidoderm 5% 1 patch TOPICAL DAILY PRN 05/21/20 06/03/20 History Patch] Metoprolol Tartrate [Lopressor] 25 mg PO BID 05/21/20 06/03/20 History Mirtazapine [Remeron] 45 mg PO HS 05/21/20 06/03/20 History Potassium Chloride ER [K-Dur 20] 20 meq PO DAILY 05/21/20 06/03/20 History QUEtiapine [SEROquel] 50 mg PO HS 05/21/20 06/03/20 History Ranolazine [Ranexa] 1,000 mg PO BID 05/21/20 06/03/20 History Salmeterol Xinafoate [Serevent 1 puff INHALATION RT-BID PRN 05/21/20 06/03/20 History Diskus] Sertraline [Zoloft] 50 mg PO DAILY 05/21/20 06/03/20 History Spironolactone 25 mg PO HS 05/21/20 06/03/20 History Ticagrelor [Brilinta] 90 mg PO BID 05/21/20 06/03/20 History hydrOXYzine pamoate [Vistaril] 25 mg PO TID 05/21/20 06/03/20 History levETIRAcetam [Keppra] 500 mg PO BID 05/21/20 06/03/20 History lisinopriL [Zestril] 2.5 mg PO DAILY 05/21/20 06/03/20 History tiZANidine [Zanaflex] 8 mg PO Q8H PRN 05/21/20 06/03/20 History Loperamide [Imodium] 2 mg PO TID PRN #20 capsule 06/04/20 Rx Allergies Allergy/AdvReac Type Severity Reaction Status Date / Time gabapentin Allergy Anaphylaxis Verified 06/03/20 22:01 Physical Exam Vitals: Vital Signs Temp Pulse Pulse Resp BP BP Pulse Ox 06/04/20 09:00 97.8 F 94 18 141/80 98 06/04/20 02:55 97.6 F 77 143/71 100 06/03/20 23:31 98.5 F 89 143/64 06/03/20 21:25 101 H 20 126/70 99 06/03/20 20:51 130/68 06/03/20 20:50 93 16 100 06/03/20 19:35 98.9 F 96 14 128/78 99 Intake and Output 06/03/20 06/04/20 06/04/20 22:59 06:59 14:59 Intake Total 70.651 Output Total 250 Balance -179.349 Intake: Intake, IV Titration 70.651 Amount Heparin Sod,Pork in 0.45% 70.651 NaCl 25,000 unit In 0.45 % NaCl 1 250ml.bag @ 12 UNITS/KG/HR 8.981 mls/hr IV .Q24H [facility] Rx#: [id number] Output: Urine 250 Other: Voiding Method Toilet Toilet Diaper Diaper # Voids 0 Weight 74.843 kg 74.843 kg PHYSICAL EXAMINATION: GENERAL: The patient is alert and oriented x3, not in any acute distress. Well developed, well nourished. HEENT: Pupils are round and equally reacting to light. EOMI. No scleral icterus. No conjunctival pallor. Normocephalic, atraumatic. No pharyngeal erythema. No thyromegaly. CARDIOVASCULAR: S1 and S2 present. No murmurs, rubs, or gallops. PULMONARY: Chest is clear to auscultation, no wheezing or crackles. ABDOMEN: Soft, nontender, nondistended, normoactive bowel sounds. No palpable organomegaly. MUSCULOSKELETAL: No joint swelling or deformity. EXTREMITIES: No cyanosis, clubbing, or pedal edema. NEUROLOGICAL: Gross neurological examination did not reveal any focal deficits. SKIN: No rashes. Results CBC & Chem 7: 06/03/20 20:34 06/03/20 20:34 Labs: Abnormal Lab Results - Last 24 Hours (Table) 06/03/20 06/04/20 06/04/20 Range/Units 20:34 05:45 05:45 APTT 64.0 H (22.0-30.0) sec Sodium 134 L (137-145) mmol/L Glucose 379 H (74-99) mg/dL POC Glucose (mg/dL) (75-99) mg/dL Magnesium 1.4 L (1.6-2.3) mg/dL AST 40 H (14-36) U/L HDL Cholesterol 108 H (40-60) mg/dL 06/04/20 Range/Units 11:01 APTT (22.0-30.0) sec Sodium (137-145) mmol/L Glucose (74-99) mg/dL POC Glucose (mg/dL) 327 H (75-99) mg/dL Magnesium (1.6-2.3) mg/dL AST (14-36) U/L HDL Cholesterol (40-60) mg/dL Thrombosis Risk Factor Assmnt - Choose All That Apply Each Factor Represents 1 point: Abnormal pulmonary function (COPD), Age 41-60 years, Obesity (BMI >25), Swollen legs (current) Each Risk Factor Represents 3 Points: History of DVT/PE Thrombosis Risk Factor Assessment Total Risk Factor Score: 7 Thrombosis Risk Factor Assessment Level: High Risk Assessment and Plan Plan: -Chest pain: Atypical rule out acute coronary syndromes, had a recent stress test which was negative patient is cleared by cardiology will be discharged to -Hypomagnesemia potassium was replaced Have any coronary artery disease with previous bypass grafting in the past -Professor disease -Mitral valve disease status post replacement -Hypertension #Hyperlipidemia -Type 2 diabetes mellitus -Nicotine dependence Patient is being discharged today.
--- NOTE | 2020-06-04 11:42 | P.DS ---
Providers Date of admission: 06/03/20 21:45 Attending physician: Obie Gonzalez MD Consults: 06/03/20 21:45 Consult Physician Urgent Consulting Provider: Anatoliy Vides Consult Reason/Comments: chest pain Do you want consulting provider notified?: Yes Primary care physician: Stated None Hospital Course: Please refer to my hpf for further details Patient Condition at Discharge: Fair Plan - Discharge Summary New Discharge Prescriptions: New Loperamide [Imodium] 2 mg PO TID PRN #20 capsule PRN Reason: Diarrhea Continue Folic Acid 1 mg PO DAILY tiZANidine [Zanaflex] 8 mg PO Q8H PRN PRN Reason: muscle spasms Spironolactone 25 mg PO HS Sertraline [Zoloft] 50 mg PO DAILY Ferrous Sulfate [Iron (65 MG Elemental)] 325 mg PO DAILY Calcium Carbonate [Calcium] 600 mg PO BID Salmeterol Xinafoate [Serevent Diskus] 1 puff INHALATION RT-BID PRN PRN Reason: Shortness Of Breath Ranolazine [Ranexa] 1,000 mg PO BID QUEtiapine [SEROquel] 50 mg PO HS Potassium Chloride ER [K-Dur 20] 20 meq PO DAILY Mirtazapine [Remeron] 45 mg PO HS INSULIN ASPART (NovoLOG) [NovoLOG (formulary)] See Protocol SQ ACHS lisinopriL [Zestril] 2.5 mg PO DAILY Metoprolol Tartrate [Lopressor] 25 mg PO BID Lidocaine 5% Patch [Lidoderm 5% Patch] 1 patch TOPICAL DAILY PRN PRN Reason: Pain Levothyroxine Sodium [Synthroid] 175 mcg PO DAILY levETIRAcetam [Keppra] 500 mg PO BID Aspirin 81 mg PO DAILY hydrOXYzine pamoate [Vistaril] 25 mg PO TID Isosorbide Mononitrate ER [Imdur] 30 mg PO DAILY Insulin Glargine,Hum.rec.anlog [Lantus Solostar] 28 unit SQ BID Furosemide [Lasix] 40 mg PO DAILY Ticagrelor [Brilinta] 90 mg PO BID Fluticasone Propionate [Flovent Diskus] 1 puff INHALATION RT-BID PRN PRN Reason: Shortness Of Breath Cyclobenzaprine [Flexeril] 10 mg PO TID Atorvastatin [Lipitor] 80 mg PO DAILY Albuterol Inhaler [Ventolin Hfa Inhaler] 2 puff INHALATION RT-Q4H PRN PRN Reason: Shortness Of Breath ARIPiprazole [Abilify] 5 mg PO HS Discontinued Loperamide [Imodium] 2 mg PO TID PRN PRN Reason: Diarrhea Discharge Medication List ARIPiprazole [Abilify] 5 mg PO HS 05/21/20 [History] Albuterol Inhaler [Ventolin Hfa Inhaler] 2 puff INHALATION RT-Q4H PRN 05/21/20 [History] Aspirin 81 mg PO DAILY 05/21/20 [History] Atorvastatin [Lipitor] 80 mg PO DAILY 05/21/20 [History] Calcium Carbonate [Calcium] 600 mg PO BID 05/21/20 [History] Cyclobenzaprine [Flexeril] 10 mg PO TID 05/21/20 [History] Ferrous Sulfate [Iron (65 MG Elemental)] 325 mg PO DAILY 05/21/20 [History] Fluticasone Propionate [Flovent Diskus] 1 puff INHALATION RT-BID PRN 05/21/20 [History] Folic Acid 1 mg PO DAILY 05/21/20 [History] Furosemide [Lasix] 40 mg PO DAILY 05/21/20 [History] INSULIN ASPART (NovoLOG) [NovoLOG (formulary)] See Protocol SQ ACHS 05/21/20 [History] Insulin Glargine,Hum.rec.anlog [Lantus Solostar] 28 unit SQ BID 05/21/20 [History] Isosorbide Mononitrate ER [Imdur] 30 mg PO DAILY 05/21/20 [History] Levothyroxine Sodium [Synthroid] 175 mcg PO DAILY 05/21/20 [History] Lidocaine 5% Patch [Lidoderm 5% Patch] 1 patch TOPICAL DAILY PRN 05/21/20 [History] Metoprolol Tartrate [Lopressor] 25 mg PO BID 05/21/20 [History] Mirtazapine [Remeron] 45 mg PO HS 05/21/20 [History] Potassium Chloride ER [K-Dur 20] 20 meq PO DAILY 05/21/20 [History] QUEtiapine [SEROquel] 50 mg PO HS 05/21/20 [History] Ranolazine [Ranexa] 1,000 mg PO BID 05/21/20 [History] Salmeterol Xinafoate [Serevent Diskus] 1 puff INHALATION RT-BID PRN 05/21/20 [History] Sertraline [Zoloft] 50 mg PO DAILY 05/21/20 [History] Spironolactone 25 mg PO HS 05/21/20 [History] Ticagrelor [Brilinta] 90 mg PO BID 05/21/20 [History] hydrOXYzine pamoate [Vistaril] 25 mg PO TID 05/21/20 [History] levETIRAcetam [Keppra] 500 mg PO BID 05/21/20 [History] lisinopriL [Zestril] 2.5 mg PO DAILY 05/21/20 [History] tiZANidine [Zanaflex] 8 mg PO Q8H PRN 05/21/20 [History] Loperamide [Imodium] 2 mg PO TID PRN #20 capsule 06/04/20 [Rx] Follow up Appointment(s)/Referral(s): None,Stated [Primary Care Provider] - 3 Days Discharge Disposition: HOME SELF-CARE
[2020-06-04] MEDS ORDERED: FLUTICASONE 44 MCG INHALER INHALATION SCH (20:00)
[2020-06-04] MEDS ORDERED: FORMOTEROL FUMARATE 20 MCG/2 ML NEBU INHALATION SCH (20:00)
[2020-06-04] MEDS ORDERED: MIRTAZAPINE 45 MG TABLET PO SCH (21:00)
[2020-06-04] MEDS ORDERED: ARIPiprazole 5 MG TAB PO SCH (21:00)
[2020-06-04] MEDS ORDERED: SPIRONOLACTONE 25 MG TAB PO SCH (21:00)
== END 2020-06-04 15:23 | disposition home or self-care (01) ==
LOC: EC 19:29 → 1SOBS 21:45
PROVIDERS: ADMIT Internal Medicine; ATTEND Internal Medicine
DX: R07.9 Chest pain, unspecified (principal); I10 Essential (primary) hypertension; E78.00 Pure hypercholesterolemia, unspecified; E11.51 Type 2 diabetes mellitus with diabetic peripheral angiopathy without gangrene; F17.200 Nicotine dependence, unspecified, uncomplicated; Z95.1 Presence of aortocoronary bypass graft; E83.42 Hypomagnesemia; F31.9 Bipolar disorder, unspecified; E78.5 Hyperlipidemia, unspecified; Z95.2 Presence of prosthetic heart valve; I25.10 Atherosclerotic heart disease of native coronary artery without angina pectoris; Z95.5 Presence of coronary angioplasty implant and graft; Z79.02 Long term (current) use of antithrombotics/antiplatelets; Z79.82 Long term (current) use of aspirin; Z79.890 Hormone replacement therapy; Z79.4 Long term (current) use of insulin; Z79.51 Long term (current) use of inhaled steroids; Z79.899 Other long term (current) drug therapy; Z88.8 Allergy status to other drugs, medicaments and biological substances
CPT/HCPCS: 93005 ×2; 96366 ×2; 96367; 96376 ×2; 96365; 96375; 99285; 36415; 80061; 80053; 83735; 84484 ×2; 85025; 85610; 85730 ×2; 71046; G0378 ×2; J2270 ×2; J1644 ×2; J2765; J3475

== ENCOUNTER 2020-06-08 16:00 | Observation (INO) | payer MEDICARE, OTHER ==
[2020-06-08] MEDS ORDERED: NITROGLYCERIN OINT 1 INCH/GM PACKET TOPICAL STA (16:23)
--- NOTE | 2020-06-08 16:25 | ED ---
General Adult HPI - General Chief complaint: Chest Pain Stated complaint: Chest Pain Time Seen by Provider: 06/08/20 16:10 Source: patient, RN notes reviewed, old records reviewed Mode of arrival: wheelchair Limitations: no limitations - History of Present Illness Initial comments: This is a 54-year-old female who presents emergency department comes in with chest pain radiating to her left arm neck. Patient states she's also short of breath per patient states she is sweating. Patient denies any nausea. Patient states she does have a history of multiple stents. Patient states she has diabetes hypertension and continues to smoke. Patient states this pain started at 10:30 today. Patient states the pain is ongoing. Patient states she was recently admitted to the hospital. Patient denies any recent fever chills or cough per patient denies any headache patient denies numbness weakness per patient denies any lightheadedness dizziness or near syncopal episode. Patient denies abdominal pain patient denies nausea vomiting diarrhea. Denies any leg swelling or calf tenderness. - Related Data Home Medications Medication Instructions Recorded Confirmed ARIPiprazole [Abilify] 5 mg PO HS 05/21/20 06/03/20 Albuterol Inhaler [Ventolin Hfa 2 puff INHALATION RT-Q4H PRN 05/21/20 06/03/20 Inhaler] Aspirin 81 mg PO DAILY 05/21/20 06/03/20 Atorvastatin [Lipitor] 80 mg PO DAILY 05/21/20 06/03/20 Calcium Carbonate [Calcium] 600 mg PO BID 05/21/20 06/03/20 Cyclobenzaprine [Flexeril] 10 mg PO TID 05/21/20 06/03/20 Ferrous Sulfate [Iron (65 MG 325 mg PO DAILY 05/21/20 06/03/20 Elemental)] Fluticasone Propionate [Flovent 1 puff INHALATION RT-BID PRN 05/21/20 06/03/20 Diskus] Folic Acid 1 mg PO DAILY 05/21/20 06/03/20 Furosemide [Lasix] 40 mg PO DAILY 05/21/20 06/03/20 INSULIN ASPART (NovoLOG) [NovoLOG See Protocol SQ ACHS 05/21/20 06/03/20 (formulary)] Insulin Glargine,Hum.rec.anlog 28 unit SQ BID 05/21/20 06/03/20 [Lantus Solostar] Isosorbide Mononitrate ER [Imdur] 30 mg PO DAILY 05/21/20 06/03/20 Levothyroxine Sodium [Synthroid] 175 mcg PO DAILY 05/21/20 06/03/20 Lidocaine 5% Patch [Lidoderm 5% 1 patch TOPICAL DAILY PRN 05/21/20 06/03/20 Patch] Metoprolol Tartrate [Lopressor] 25 mg PO BID 05/21/20 06/03/20 Mirtazapine [Remeron] 45 mg PO HS 05/21/20 06/03/20 Potassium Chloride ER [K-Dur 20] 20 meq PO DAILY 05/21/20 06/03/20 QUEtiapine [SEROquel] 50 mg PO HS 05/21/20 06/03/20 Ranolazine [Ranexa] 1,000 mg PO BID 05/21/20 06/03/20 Salmeterol Xinafoate [Serevent 1 puff INHALATION RT-BID PRN 05/21/20 06/03/20 Diskus] Sertraline [Zoloft] 50 mg PO DAILY 05/21/20 06/03/20 Spironolactone 25 mg PO HS 05/21/20 06/03/20 Ticagrelor [Brilinta] 90 mg PO BID 05/21/20 06/03/20 hydrOXYzine pamoate [Vistaril] 25 mg PO TID 05/21/20 06/03/20 levETIRAcetam [Keppra] 500 mg PO BID 05/21/20 06/03/20 lisinopriL [Zestril] 2.5 mg PO DAILY 05/21/20 06/03/20 tiZANidine [Zanaflex] 8 mg PO Q8H PRN 05/21/20 06/03/20 Previous Rx's Medication Instructions Recorded Loperamide [Imodium] 2 mg PO TID PRN #20 capsule 06/04/20 Allergies Allergy/AdvReac Type Severity Reaction Status Date / Time gabapentin Allergy Anaphylaxis Verified 06/08/20 16:12 Review of Systems ROS Statement: Those systems with pertinent positive or pertinent negative responses have been documented in the HPI. ROS Other: All systems not noted in ROS Statement are negative. Past Medical History Past Medical History: Coronary Artery Disease (CAD), Chest Pain / Angina History of Any Multi-Drug Resistant Organisms: None Reported Past Surgical History: Coronary Bypass/CABG, Heart Catheterization Additional Past Surgical History / Comment(s): CABG in 2014, Mitro valve on 2017, Stent, leg stent Past Anesthesia/Blood Transfusion Reactions: No Reported Reaction Past Psychological History: Bipolar Smoking Status: Current every day smoker Past Alcohol Use History: None Reported Past Drug Use History: None Reported General Exam - General Exam Comments Initial Comments: GENERAL: Patient is well-developed and well-nourished. Patient is nontoxic and well- hydrated and is in no acute distress. ENT: Neck is soft and supple. No significant lymphadenopathy is noted. Oropharynx is clear. Moist mucous membranes. Neck has full range of motion without eliciting any pain. EYES: The sclera were anicteric and conjunctiva were pink and moist. Extraocular movements were intact and pupils were equal round and reactive to light. Eyelids were unremarkable. PULMONARY: Unlabored respirations. Good breath sounds bilaterally. No audible rales rhonchi or wheezing was noted. CARDIOVASCULAR: There is a regular rate and rhythm without any murmurs gallops or rubs. ABDOMEN: Soft and nontender with normal bowel sounds. No palpable organomegaly was noted. There is no palpable pulsatile mass. SKIN: Skin is clear with no lesions or rashes and otherwise unremarkable. NEUROLOGIC: Patient is alert and oriented x3. Cranial nerves II through XII are grossly intact. Motor and sensory are also intact. Normal speech, volume and content. Symmetrical smile. MUSCULOSKELETAL: Normal extremities with adequate strength and full range of motion. No lower extremity swelling or edema. No calf tenderness. LYMPHATICS: No significant lymphadenopathy is noted PSYCHIATRIC: Normal psychiatric evaluation. Limitations: no limitations Course Vital Signs 06/08/20 06/08/20 16:07 17:27 Temperature 97.9 F Pulse Rate 77 74 Respiratory 18 18 Rate Blood Pressure 154/77 143/77 O2 Sat by Pulse 98 100 Oximetry Medical Decision Making - Medical Decision Making EKG shows normal sinus rhythm at 80 bpm AR interval 270 QRS is 94 QT interval 428 QTC is 493. Patient's EKG shows no ST segment elevation or depression. Chest x-ray shows no acute abnormality. This chest pain was significant crush patient's past medical history I considered unstable angina/started the patient on heparin. I spoke with Dr. maharaj he agreed to admit the patient admitted the patient I wrote admitting orders and I continued heparin and aspirin on the floor and I consult cardiology. - Lab Data Result diagrams: 06/08/20 17:26 06/08/20 16:34 Lab Results 06/08/20 06/08/20 06/08/20 Range/Units 16:34 16:34 17:26 WBC 6.2 (3.8-10.6) k/uL RBC 3.98 (3.80-5.40) m/uL Hgb 11.9 (11.4-16.0) gm/dL Hct 36.4 (34.0-46.0) % MCV 91.3 (80.0-100.0) fL MCH 30.0 (25.0-35.0) pg MCHC 32.8 (31.0-37.0) g/dL RDW 14.0 (11.5-15.5) % Plt Count 182 (150-450) k/uL MPV 7.2 Neutrophils % 74 % Lymphocytes % 19 % Monocytes % 4 % Eosinophils % 2 % Basophils % 1 % Neutrophils # 4.6 (1.3-7.7) k/uL Lymphocytes # 1.2 (1.0-4.8) k/uL Monocytes # 0.3 (0-1.0) k/uL Eosinophils # 0.1 (0-0.7) k/uL Basophils # 0.1 (0-0.2) k/uL PT (9.0-12.0) sec INR (<1.2) APTT (22.0-30.0) sec Sodium 132 L (137-145) mmol/L Potassium 3.9 (3.5-5.1) mmol/L Chloride 107 (98-107) mmol/L Carbon Dioxide 18 L (22-30) mmol/L Anion Gap 7 mmol/L BUN 12 (7-17) mg/dL Creatinine 0.69 (0.52-1.04) mg/dL Est GFR (CKD-EPI)AfAm >90 (>60 ml/min/1.73 sqM) Est GFR (CKD-EPI)NonAf >90 (>60 ml/min/1.73 sqM) Glucose 374 H (74-99) mg/dL Calcium 8.8 (8.4-10.2) mg/dL Magnesium 2.0 (1.6-2.3) mg/dL Total Bilirubin 0.6 (0.2-1.3) mg/dL AST 20 (14-36) U/L ALT 16 (4-34) U/L Alkaline Phosphatase 109 (38-126) U/L Troponin I <0.012 (0.000-0.034) ng/mL Total Protein 6.8 (6.3-8.2) g/dL Albumin 4.1 (3.5-5.0) g/dL 06/08/20 Range/Units 17:42 WBC (3.8-10.6) k/uL RBC (3.80-5.40) m/uL Hgb (11.4-16.0) gm/dL Hct (34.0-46.0) % MCV (80.0-100.0) fL MCH (25.0-35.0) pg MCHC (31.0-37.0) g/dL RDW (11.5-15.5) % Plt Count (150-450) k/uL MPV Neutrophils % % Lymphocytes % % Monocytes % % Eosinophils % % Basophils % % Neutrophils # (1.3-7.7) k/uL Lymphocytes # (1.0-4.8) k/uL Monocytes # (0-1.0) k/uL Eosinophils # (0-0.7) k/uL Basophils # (0-0.2) k/uL PT 9.6 (9.0-12.0) sec INR 0.9 (<1.2) APTT 22.3 (22.0-30.0) sec Sodium (137-145) mmol/L Potassium (3.5-5.1) mmol/L Chloride (98-107) mmol/L Carbon Dioxide (22-30) mmol/L Anion Gap mmol/L BUN (7-17) mg/dL Creatinine (0.52-1.04) mg/dL Est GFR (CKD-EPI)AfAm (>60 ml/min/1.73 sqM) Est GFR (CKD-EPI)NonAf (>60 ml/min/1.73 sqM) Glucose (74-99) mg/dL Calcium (8.4-10.2) mg/dL Magnesium (1.6-2.3) mg/dL Total Bilirubin (0.2-1.3) mg/dL AST (14-36) U/L ALT (4-34) U/L Alkaline Phosphatase (38-126) U/L Troponin I (0.000-0.034) ng/mL Total Protein (6.3-8.2) g/dL Albumin (3.5-5.0) g/dL Critical Care Time Critical Care Time: Yes Total Critical Care Time: 35 Disposition Clinical Impression: Unstable angina pectoris Disposition: ADMITTED IP TO THIS HOSP Referrals: Nonstaff,Physician [Primary Care Provider] - 1-2 days Time of Disposition: 18:15
[2020-06-08] MEDS: ASPIRIN 81 MG PO STA ×2 (16:47→19:05)
--- NOTE | 2020-06-08 16:47 | XR ---
EXAMINATION TYPE: XR chest 2V DATE OF EXAM: 06/08/2020 COMPARISON: 06/03/2020 HISTORY: Chest pain TECHNIQUE: 2 views FINDINGS: Heart is normal. Lungs are clear. There is no heart failure. There are sternal wires. There is cardiac valve surgery. There is no pleural effusion. There are small metallic densities over the lateral left upper lobe which could BE in the clothing. There is also some tubing at the base of the neck on the right side IMPRESSION: No cardiopulmonary disease. No change.
[2020-06-08] MEDS ORDERED: ONDANSETRON 4 MG/2 ML VIAL IVP STA (17:15)
[2020-06-08 17:17] LABS: ALT 16 U/L (4-34); AST 20 U/L (14-36); African American GFR (CKD) >90 (>60 ml/min/1.73 sqM); Albumin 4.1 g/dL (3.5-5.0); Alkaline Phosphatase 109 U/L (38-126); Anion Gap 7 mmol/L; Blood Urea Nitrogen 12 mg/dL (7-17); Calcium 8.8 mg/dL (8.4-10.2); Carbon Dioxide 18 mmol/L (22-30); Chloride 107 mmol/L (98-107); Glucose 374 mg/dL (74-99); Non-African American GFR(CKD) >90 (>60 ml/min/1.73 sqM); Potassium 3.9 mmol/L (3.5-5.1); Sodium 132 mmol/L (137-145); Total Bilirubin 0.6 mg/dL (0.2-1.3); Total Protein 6.8 g/dL (6.3-8.2)
[2020-06-08 17:34] LABS: Basophils # (A) 0.1 k/uL (0-0.2); Basophils % (A) 1 %; Eosinophils # (A) 0.1 k/uL (0-0.7); Eosinophils % (A) 2 %; HCT 36.4 % (34.0-46.0); HGB 11.9 gm/dL (11.4-16.0); Lymphocytes # (A) 1.2 k/uL (1.0-4.8); Lymphocytes % (A) 19 %; MCHC 32.8 g/dL (31.0-37.0); MCV 91.3 fL (80.0-100.0); Mean Platelet Volume 7.2; Monocytes # (A) 0.3 k/uL (0-1.0); Monocytes % (A) 4 %; Neutrophils # (A) 4.6 k/uL (1.3-7.7); Neutrophils % (A) 74 %; Platelet Count 182 k/uL (150-450); RBC 3.98 m/uL (3.80-5.40); WBC 6.2 k/uL (3.8-10.6)
[2020-06-08] MEDS ORDERED: HEPARIN SODIUM,PORCINE 5,000 UNIT/ML 1 ML VIAL IV ONE (18:13)
[2020-06-08 18:15] LABS: INR 0.9 (<1.2); Partial Thromboplastin Time 22.3 sec (22.0-30.0); Prothrombin Time 9.6 sec (9.0-12.0)
[2020-06-08] MEDS ORDERED: HEPARIN SOD,PORK IN 0.45% NACL 25,000 UNIT in 0.45% NACL 1 250ML.BAG IV SCH (18:15)
[2020-06-08] MEDS ORDERED: NITROGLYCERIN SL TABS 0.4 MG TAB SUBLINGUAL PRN (18:16)
[2020-06-08] MEDS ORDERED: LOPERAMIDE 2 MG CAP PO PRN (20:05)
[2020-06-08] MEDS ORDERED: KETOROLAC 15 MG/ML 1 ML VIAL IM PRN (20:33)
[2020-06-08 20:53] LABS: Glucose,Whole Blood 309 mg/dL (75-99)
[2020-06-08] MEDS: METOPROLOL TARTRATE 25 MG TAB PO SCH (20:53)
[2020-06-08] MEDS: TICAGRELOR 90 MG TAB PO SCH (20:54)
[2020-06-08] MEDS: RANOLAZINE 500 MG TAB.ER.12H PO SCH (20:54)
[2020-06-08] MEDS: levETIRAcetam 500 MG TAB PO SCH (20:55)
[2020-06-08] MEDS ORDERED: MIRTAZAPINE 45 MG TABLET PO SCH (21:00)
[2020-06-08] MEDS ORDERED: ARIPiprazole 5 MG TAB PO SCH (21:00)
[2020-06-08] MEDS ORDERED: QUEtiapine 50 MG TAB PO SCH (21:00)
[2020-06-08] MEDS ORDERED: LIDOCAINE 5% PATCH TOPICAL SCH (21:00)
[2020-06-08] MEDS ORDERED: SPIRONOLACTONE 25 MG TAB PO SCH (21:00)
[2020-06-08] MEDS: INSULIN DETEMIR (LEVEMIR) 100 UNIT/ML SYR SQ SCH (22:00)
[2020-06-08 22:10] LABS: Glucose,Whole Blood 307 mg/dL (75-99)
[2020-06-08] MEDS: CYCLOBENZAPRINE 10 MG TAB PO SCH (23:11)
[2020-06-08] MEDS: NITROGLYCERIN OINT 1 INCH/GM PACKET TOPICAL SCH (23:12)
[2020-06-09] MEDS ORDERED: HEPARIN SODIUM,PORCINE 5,000 UNIT/ML 1 ML VIAL IV PRN (02:13)
[2020-06-09] MEDS: NITROGLYCERIN OINT 1 INCH/GM PACKET TOPICAL SCH (05:37)
[2020-06-09] MEDS ORDERED: LEVOTHYROXINE 75 MCG TAB PO SCH (06:30)
[2020-06-09] MEDS ORDERED: LEVOTHYROXINE 100 MCG TAB PO SCH (06:30)
[2020-06-09 06:47] LABS: Glucose,Whole Blood 187 mg/dL (75-99)
[2020-06-09] MEDS: INSULIN ASPART (NovoLOG) 100 UNIT/ML VIAL SQ SCH ×2 (06:58→10:43)
[2020-06-09 07:53] VITALS: TEMP 98
[2020-06-09] MEDS ORDERED: POTASSIUM CHLORIDE ER 20 MEQ TAB.ER PO SCH (09:00)
[2020-06-09] MEDS ORDERED: ASPIRIN 325 MG TAB PO SCH (09:00)
[2020-06-09] MEDS ORDERED: ATORVASTATIN 80 MG TAB PO SCH (09:00)
[2020-06-09] MEDS ORDERED: FUROSEMIDE 40 MG TAB PO SCH (09:00)
[2020-06-09] MEDS ORDERED: ASPIRIN 81 MG PO SCH (09:00)
[2020-06-09] MEDS ORDERED: SERTRALINE 50 MG TAB PO SCH (09:00)
[2020-06-09] MEDS ORDERED: ISOSORBIDE MONONITRATE ER 30 MG TAB.ER.24H PO SCH (09:00)
--- NOTE | 2020-06-09 09:12 | P.CRDCN ---
History of Present Illness Consult date: 06/09/20 Consult reason: chest pain Chief complaint: Chest pain History of present illness: This is a pleasant 54-year-old female past medical history significant for coronary artery disease s/p multiple stents and 4V bypass grafting 2013, peripheral vascular disease s/p revascularization, mitral valve replacement 201 , diabetes mellitus, hypertension, dyslipidemia and chronic nicotine dependence. Exact details of her previous cardiac care are unavailable. She follows with Dr. naqvi in [place]. According to the patient her last cardiac stent was 02/2020 and she recently has stent placement in the leg a few weeks ago, and again on Sunday according to the patient. This is her third admission in the past few weeks here to [facility]. She apparently is staying with a friend in this area. Prior to that she has had 2 subsequent admissions with chest discomfort, she underwent a dobutamine stress echo which was negative for stress-induced ischemia, echocardiogram with Doppler study was also performe d which revealed a preserved LV function with ejection fraction of 55-60%, normally functioning bioprosthetic mitral valve with a mean gradient of 6 mg of mercury and mild TR. Patient presents to the hospital again on this admission with symptoms of chest tightness, she states that the pain is persistent, never goes away she has had it for the past couple of weeks. She does intermittently get some associated nausea and vomiting, she denies any fevers and states overall that her breathing has been stable. EKG on this admission showed a normal sinus rhythm with an incomplete right bundle branch block pattern and nonspecific ST-T wave changes. Chest x-ray shows no evidence of cardiopulmonary disease. Blood pressure 122/55, heart rate in the 50s, respirations 18, temperature 97.6, 100% on room air. White blood cell count 6.2, hemoglobin 11.9, platelet count 182. Sodium 132, potassium 3.9, BUN 12, creatinine 0.6. Troponins have been negative 3. Past Medical History Past Medical History: Coronary Artery Disease (CAD), Chest Pain / Angina History of Any Multi-Drug Resistant Organisms: None Reported Past Surgical History: Coronary Bypass/CABG, Heart Catheterization Additional Past Surgical History / Comment(s): CABG in 2013, Mitro valve on 2016, Stent, leg stent Past Anesthesia/Blood Transfusion Reactions: No Reported Reaction Past Psychological History: Bipolar Smoking Status: Current every day smoker Past Alcohol Use History: None Reported Past Drug Use History: None Reported Medications and Allergies Home Medications Medication Instructions Recorded Confirmed Type ARIPiprazole [Abilify] 5 mg PO HS 05/21/20 06/08/20 History Aspirin 81 mg PO DAILY 05/21/20 06/08/20 History Atorvastatin [Lipitor] 80 mg PO DAILY 05/21/20 06/08/20 History Calcium Carbonate [Calcium] 600 mg PO DAILY 05/21/20 06/08/20 History Cyclobenzaprine [Flexeril] 10 mg PO TID 05/21/20 06/08/20 History Ferrous Sulfate [Iron (65 MG 325 mg PO BID 05/21/20 06/08/20 History Elemental)] Folic Acid 1 mg PO DAILY 05/21/20 06/08/20 History Furosemide [Lasix] 40 mg PO DAILY 05/21/20 06/08/20 History INSULIN ASPART (NovoLOG) [NovoLOG See Protocol SQ ACHS 05/21/20 06/08/20 History (formulary)] Insulin Glargine,Hum.rec.anlog 28 unit SQ BID 05/21/20 06/08/20 History [Lantus Solostar] Isosorbide Mononitrate ER [Imdur] 30 mg PO DAILY 05/21/20 06/08/20 History Levothyroxine Sodium [Synthroid] 175 mcg PO DAILY 05/21/20 06/08/20 History Metoprolol Tartrate [Lopressor] 25 mg PO BID 05/21/20 06/08/20 History Mirtazapine [Remeron] 45 mg PO HS 05/21/20 06/08/20 History Potassium Chloride ER [K-Dur 20] 20 meq PO DAILY 05/21/20 06/08/20 History QUEtiapine [SEROquel] 50 mg PO HS 05/21/20 06/08/20 History Ranolazine [Ranexa] 1,000 mg PO BID 05/21/20 06/08/20 History Sertraline [Zoloft] 50 mg PO DAILY 05/21/20 06/08/20 History Spironolactone 25 mg PO HS 05/21/20 06/08/20 History Ticagrelor [Brilinta] 90 mg PO BID 05/21/20 06/08/20 History hydrOXYzine pamoate [Vistaril] 25 mg PO TID 05/21/20 06/08/20 History levETIRAcetam [Keppra] 500 mg PO BID 05/21/20 06/08/20 History lisinopriL [Zestril] 2.5 mg PO DAILY 05/21/20 06/08/20 History tiZANidine [Zanaflex] 4 mg PO Q8H PRN 05/21/20 06/08/20 History Loperamide [Imodium] 2 mg PO QID PRN 06/08/20 06/08/20 History Allergies Allergy/AdvReac Type Severity Reaction Status Date / Time gabapentin Allergy Anaphylaxis Verified 06/08/20 18:52 Physical Exam Vitals: Vital Signs Temp Pulse Pulse Resp BP BP Pulse Ox 06/09/20 07:52 98.0 F 59 L 16 125/69 100 06/09/20 03:20 97.6 F 58 L 120/55 100 06/08/20 19:45 98.2 F 72 114/61 100 06/08/20 19:00 78 18 148/80 100 06/08/20 18:30 72 18 148/80 98 06/08/20 18:26 78 18 148/80 100 06/08/20 18:00 75 17 99 06/08/20 17:30 74 16 143/77 98 06/08/20 17:27 74 18 143/77 100 06/08/20 17:00 79 16 156/90 98 06/08/20 16:30 80 16 155/87 99 06/08/20 16:07 97.9 F 77 18 154/77 98 06/08/20 16:03 81 17 98 Intake and Output 06/08/20 06/09/20 06/09/20 22:59 06:59 14:59 Intake Total 67.495 Balance 67.495 Intake: Intake, IV Titration 67.495 Amount Heparin Sod,Pork in 0.45% 67.495 NaCl 25,000 unit In 0.45 % NaCl 1 250ml.bag @ 12 UNITS/KG/HR 8.709 mls/hr IV .Q24H [facility] Rx#: [id number] Other: Voiding Method Incontinent Incontinent Weight 72.575 kg 72.575 kg PHYSICAL EXAMINATION: GENERAL: 54-year-old female in no acute distress at the time of my examination HEENT: Head is atraumatic, normocephalic. Pupils equal, round. Sclera anicteric. Conjunctiva are clear. Mucous membranes of the mouth are moist. Neck is supple. There is no elevated jugular venous pressure. No carotid\] bruit is heard. HEART EXAMINATION: Heart S1, S2 normal. No murmur or gallop heard. CHEST EXAMINATION: Lungs are clear to auscultation and precussion. No chest wall tenderness is noted on palpation or with deep breathing. ABDOMEN: Soft, nontender. Bowel sounds are heard. No organomegaly noted. EXTREMITIES: 1+ peripheral pulses with no evidence of peripheral edema and no calf tenderness noted. Patient does have an ulcerated area noted to the left lower extremity NEUROLOGIC patient is awake, alert and oriented 3 . Results 06/08/20 17:26 06/08/20 16:34 Cardiac Enzymes 06/08/20 06/08/20 06/08/20 Range/Units 16:34 16:34 19:33 AST 20 (14-36) U/L Troponin I <0.012 <0.012 (0.000-0.034) ng/mL 06/08/20 Range/Units 22:48 AST (14-36) U/L Troponin I <0.012 (0.000-0.034) ng/mL Coagulation 06/08/20 06/09/20 Range/Units 17:42 00:41 PT 9.6 (9.0-12.0) sec APTT 22.3 41.5 H (22.0-30.0) sec CBC 06/08/20 Range/Units 17:26 WBC 6.2 (3.8-10.6) k/uL RBC 3.98 (3.80-5.40) m/uL Hgb 11.9 (11.4-16.0) gm/dL Hct 36.4 (34.0-46.0) % Plt Count 182 (150-450) k/uL Comprehensive Metabolic Panel 06/08/20 Range/Units 16:34 Sodium 132 L (137-145) mmol/L Potassium 3.9 (3.5-5.1) mmol/L Chloride 107 (98-107) mmol/L Carbon Dioxide 18 L (22-30) mmol/L BUN 12 (7-17) mg/dL Creatinine 0.69 (0.52-1.04) mg/dL Glucose 374 H (74-99) mg/dL Calcium 8.8 (8.4-10.2) mg/dL AST 20 (14-36) U/L ALT 16 (4-34) U/L Alkaline Phosphatase 109 (38-126) U/L Total Protein 6.8 (6.3-8.2) g/dL Albumin 4.1 (3.5-5.0) g/dL Current Medications Generic Name Dose Route Start Last Admin Trade Name Freq PRN Reason Stop Dose Admin Aripiprazole 5 mg 06/08/20 21:00 06/08/20 20:54 Aripiprazole 5 Mg Tab PO 5 mg HS [facility] Administration Aspirin 81 mg 06/09/20 09:00 Aspirin 81 Mg PO DAILY [facility] Atorvastatin Calcium 80 mg 06/09/20 09:00 Atorvastatin 80 Mg Tab PO DAILY [facility] Cyclobenzaprine HCl 10 mg 06/08/20 22:00 06/08/20 23:11 Cyclobenzaprine 10 Mg Tab PO Not Given TID [facility] Furosemide 40 mg 06/09/20 09:00 Furosemide 40 Mg Tab PO DAILY [facility] Heparin Sodium (Porcine) 0 unit 06/09/20 02:13 06/09/20 02:43 Heparin Sodium,Porcine 5,000 Unit/Ml 1 Ml Vial IV 1,814 unit PER PROTOCOL PRN Administration Low PTT Protocol Heparin Sodium/Sodium Chloride 250 mls @ 8.709 mls/hr 06/08/20 18:15 06/09/20 02:38 25,000 unit/ Sodium Chloride IV 14 units/kg/hr .Q24H [facility] 10.161 mls/hr Titration Protocol 12 UNITS/KG/HR Insulin Aspart 0 unit 06/09/20 07:30 06/09/20 06:58 Insulin Aspart (Novolog) 100 Unit/Ml Vial SQ Not Given AC-TID [facility] Protocol Insulin Detemir 25 unit 06/08/20 21:00 06/08/20 22:00 Insulin Detemir (Levemir) 100 Unit/Ml Syr SQ 25 unit BID [facility] Administration Isosorbide Mononitrate 30 mg 06/09/20 09:00 Isosorbide Mononitrate Er 30 Mg Tab.Er.24h PO DAILY [facility] Ketorolac Tromethamine 15 mg 06/08/20 20:33 06/08/20 20:55 Ketorolac 15 Mg/Ml 1 Ml Vial IM 07/08/20 20:34 15 mg Q6HR PRN Administration Pain Levetiracetam 500 mg 06/08/20 21:00 06/08/20 20:55 Levetiracetam 500 Mg Tab PO 500 mg BID [facility] Administration Levothyroxine Sodium 100 mcg 06/09/20 06:30 06/09/20 05:36 Levothyroxine 100 Mcg Tab PO 100 mcg DAILY@0630 [facility] Administration Levothyroxine Sodium 75 mcg 06/09/20 06:30 06/09/20 05:36 Levothyroxine 75 Mcg Tab PO 75 mcg DAILY@0630 [facility] Administration Lidocaine 1 patch 06/08/20 21:00 06/08/20 22:01 Lidocaine 5% Patch TOPICAL Not Given HS [facility] Lisinopril 2.5 mg 06/09/20 09:00 Lisinopril 2.5 Mg Tab PO DAILY [facility] Loperamide HCl 2 mg 06/08/20 20:05 Loperamide 2 Mg Cap PO QID PRN Diarrhea Metoprolol Tartrate 25 mg 06/08/20 21:00 06/08/20 20:53 Metoprolol Tartrate 25 Mg Tab PO 25 mg BID [facility] Administration Mirtazapine 45 mg 06/08/20 21:00 06/08/20 20:55 Mirtazapine 45 Mg Tablet PO 45 mg HS [facility] Administration Nitroglycerin 0.4 mg 06/08/20 18:16 Nitroglycerin Sl Tabs 0.4 Mg Tab SUBLINGUAL Q5M PRN Chest Pain Nitroglycerin 1 inch 06/09/20 00:00 06/09/20 05:37 Nitroglycerin Oint 1 Inch/Gm Packet TOPICAL Not Given Q6HR [facility] Potassium Chloride 20 meq 06/09/20 09:00 Potassium Chloride Er 20 Meq Tab.Er PO DAILY [facility] Ranolazine 1,000 mg 06/08/20 21:00 06/08/20 20:54 Ranolazine 500 Mg Tab.Er.12h PO 1,000 mg BID [facility] Administration Sertraline HCl 50 mg 06/09/20 09:00 Sertraline 50 Mg Tab PO DAILY [facility] Spironolactone 25 mg 06/08/20 21:00 06/08/20 20:54 Spironolactone 25 Mg Tab PO 25 mg HS [facility] Administration Ticagrelor 90 mg 06/08/20 21:00 06/08/20 20:54 Ticagrelor 90 Mg Tab PO 90 mg BID [facility] Administration Intake and Output 06/08/20 06/09/20 06/09/20 22:59 06:59 14:59 Intake Total 67.495 Balance 67.495 Intake: Intake, IV Titration 67.495 Amount Heparin Sod,Pork in 0.45% 67.495 NaCl 25,000 unit In 0.45 % NaCl 1 250ml.bag @ 12 UNITS/KG/HR 8.709 mls/hr IV .Q24H [facility] Rx#: [id number] Other: Voiding Method Incontinent Incontinent Weight 72.575 kg 72.575 kg 06/08/20 17:26 06/08/20 16:34 EKG Interpretations (text) EKG shows a normal sinus rhythm with an incomplete right bundle branch block pattern and nonspecific ST-T wave changes Assessment and Plan Plan: Assessment and plan #1 chest pain, atypical for acute coronary syndrome, troponins are negative 3. EKG shows normal sinus rhythm with incomplete right bundle branch block pattern. Recent stress echocardiographic study negative for reversible ischemia #2 coronary artery disease with prior bypass surgery and multiple PCI's #3 valvular heart disease status post mitral valve replacement #4 peripheral vascular disease with recent stenting per the patient, we will get details #5 hyperlipidemia #6 hypertension #7 diabetes #8 chronic nicotine dependence #9 bipolar disorder Plan We will obtain records from Dr. naqvi's office regarding the patient's recent procedures that she had performed. Her pain is very atypical in nature. We will continue current medications including baby aspirin, Lipitor, Lasix, discontinue the IV heparin, continue Brilinta, Ranexa, Aldactone, discontinue N itropaste, and add Imdur to her medication regime. Patient has been instructed to follow-up with Dr. naqvi in his office early next week. Further recommendations to follow. DNP note has been reviewed, I agree with a documented findings and plan of care. Patient was seen and examined.
[2020-06-09 09:38] VITALS: BP 151/53; PULSE 89; RESP 18
[2020-06-09 10:36] LABS: Glucose,Whole Blood 162 mg/dL (75-99)
[2020-06-09] MEDS: levETIRAcetam 500 MG TAB PO SCH (10:41)
[2020-06-09] MEDS: CYCLOBENZAPRINE 10 MG TAB PO SCH (10:42)
[2020-06-09] MEDS: METOPROLOL TARTRATE 25 MG TAB PO SCH (10:42)
[2020-06-09] MEDS: TICAGRELOR 90 MG TAB PO SCH (10:42)
[2020-06-09] MEDS: RANOLAZINE 500 MG TAB.ER.12H PO SCH (10:42)
[2020-06-09] MEDS: INSULIN DETEMIR (LEVEMIR) 100 UNIT/ML SYR SQ SCH (10:43)
--- NOTE | 2020-06-09 11:12 | P.HPIM ---
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 Patient had a dobutamine stress echo which was within normal limits and the patient also had a cardiac catheterization As per the patient after she was discharged from here unsure whether she received any stents. Patient had nonspecific ST-T wave changes. Patient chest pain is not associated with shortness of breath or diaphoresis. Patient had normal ejection fraction. Patient was evaluated by cardiology and no further intervention is being recommended and patient had 2 sets of troponins which were negative and patient will be discharged today. Review of Systems REVIEW OF SYSTEMS: CONSTITUTIONAL: No fever, no malaise, no fatigue. HEENT: No recent visual problems or hearing problems. Denied any sore throat. CARDIOVASCULAR: No orthopnea, PND, no palpitations, no syncope. PULMONARY: No shortness of breath, no cough, no hemoptysis. GASTROINTESTINAL: No diarrhea, no nausea, no vomiting, no abdominal pain. NEUROLOGICAL: No headaches, no weakness, no numbness. HEMATOLOGICAL: Denies any bleeding or petechiae. GENITOURINARY: Denies any burning micturition, frequency, or urgency. MUSCULOSKELETAL/RHEUMATOLOGICAL: Denies any joint pain, swelling, or any muscle pain. ENDOCRINE: Denies any polyuria or polydipsia. The rest of the 14-point review of systems is negative. Past Medical History Past Medical History: Coronary Artery Disease (CAD), Chest Pain / Angina History of Any Multi-Drug Resistant Organisms: None Reported Past Surgical History: Coronary Bypass/CABG, Heart Catheterization Additional Past Surgical History / Comment(s): CABG in 2013, Mitro valve on , Stent, leg stent Past Anesthesia/Blood Transfusion Reactions: No Reported Reaction Past Psychological History: Bipolar Smoking Status: Current every day smoker Past Alcohol Use History: None Reported Past Drug Use History: None Reported Medications and Allergies Home Medications Medication Instructions Recorded Confirmed Type ARIPiprazole [Abilify] 5 mg PO HS 05/21/20 06/08/20 History Aspirin 81 mg PO DAILY 05/21/20 06/08/20 History Atorvastatin [Lipitor] 80 mg PO DAILY 05/21/20 06/08/20 History Calcium Carbonate [Calcium] 600 mg PO DAILY 05/21/20 06/08/20 History Cyclobenzaprine [Flexeril] 10 mg PO TID 05/21/20 06/08/20 History Ferrous Sulfate [Iron (65 MG 325 mg PO BID 05/21/20 06/08/20 History Elemental)] Folic Acid 1 mg PO DAILY 05/21/20 06/08/20 History Furosemide [Lasix] 40 mg PO DAILY 05/21/20 06/08/20 History INSULIN ASPART (NovoLOG) [NovoLOG See Protocol SQ ACHS 05/21/20 06/08/20 History (formulary)] Insulin Glargine,Hum.rec.anlog 28 unit SQ BID 05/21/20 06/08/20 History [Lantus Solostar] Isosorbide Mononitrate ER [Imdur] 30 mg PO DAILY 05/21/20 06/08/20 History Levothyroxine Sodium [Synthroid] 175 mcg PO DAILY 05/21/20 06/08/20 History Metoprolol Tartrate [Lopressor] 25 mg PO BID 05/21/20 06/08/20 History Mirtazapine [Remeron] 45 mg PO HS 05/21/20 06/08/20 History Potassium Chloride ER [K-Dur 20] 20 meq PO DAILY 05/21/20 06/08/20 History QUEtiapine [SEROquel] 50 mg PO HS 05/21/20 06/08/20 History Ranolazine [Ranexa] 1,000 mg PO BID 05/21/20 06/08/20 History Sertraline [Zoloft] 50 mg PO DAILY 05/21/20 06/08/20 History Spironolactone 25 mg PO HS 05/21/20 06/08/20 History Ticagrelor [Brilinta] 90 mg PO BID 05/21/20 06/08/20 History hydrOXYzine pamoate [Vistaril] 25 mg PO TID 05/21/20 06/08/20 History levETIRAcetam [Keppra] 500 mg PO BID 05/21/20 06/08/20 History lisinopriL [Zestril] 2.5 mg PO DAILY 05/21/20 06/08/20 History tiZANidine [Zanaflex] 4 mg PO Q8H PRN 05/21/20 06/08/20 History Loperamide [Imodium] 2 mg PO QID PRN 06/08/20 06/08/20 History Allergies Allergy/AdvReac Type Severity Reaction Status Date / Time gabapentin Allergy Anaphylaxis Verified 06/08/20 18:52 Physical Exam Vitals: Vital Signs Temp Pulse Pulse Resp BP BP BP 06/09/20 09:34 98.0 F 89 18 151/53 06/09/20 07:52 98.0 F 59 L 16 125/69 06/09/20 03:20 97.6 F 58 L 120/55 06/08/20 19:45 98.2 F 72 114/61 06/08/20 19:00 78 18 148/80 06/08/20 18:30 72 18 148/80 06/08/20 18:26 78 18 148/80 06/08/20 18:00 75 17 06/08/20 17:30 74 16 143/77 06/08/20 17:27 74 18 143/77 06/08/20 17:00 79 16 156/90 06/08/20 16:30 80 16 155/87 06/08/20 16:07 97.9 F 77 18 154/77 06/08/20 16:03 81 17 Pulse Ox 06/09/20 09:34 96 06/09/20 07:52 100 06/09/20 03:20 100 06/08/20 19:45 100 06/08/20 19:00 100 06/08/20 18:30 98 06/08/20 18:26 100 06/08/20 18:00 99 06/08/20 17:30 98 06/08/20 17:27 100 06/08/20 17:00 98 06/08/20 16:30 99 06/08/20 16:07 98 06/08/20 16:03 98 Intake and Output 06/08/20 06/09/20 06/09/20 22:59 06:59 14:59 Intake Total 67.495 Balance 67.495 Intake: Intake, IV Titration 67.495 Amount Heparin Sod,Pork in 0.45% 67.495 NaCl 25,000 unit In 0.45 % NaCl 1 250ml.bag @ 12 UNITS/KG/HR 8.709 mls/hr IV .Q24H [facility] Rx#: [id number] Other: Voiding Method Incontinent Incontinent Incontinent # Voids 1 Weight 72.575 kg 72.575 kg PHYSICAL EXAMINATION: GENERAL: The patient is alert and oriented x3, not in any acute distress. Well developed, well nourished. HEENT: Pupils are round and equally reacting to light. EOMI. No scleral icterus. No conjunctival pallor. Normocephalic, atraumatic. No pharyngeal erythema. No thyromegaly. CARDIOVASCULAR: S1 and S2 present. No murmurs, rubs, or gallops. PULMONARY: Chest is clear to auscultation, no wheezing or crackles. ABDOMEN: Soft, nontender, nondistended, normoactive bowel sounds. No palpable organomegaly. MUSCULOSKELETAL: No joint swelling or deformity. EXTREMITIES: No cyanosis, clubbing, or pedal edema. NEUROLOGICAL: Gross neurological examination did not reveal any focal deficits. SKIN: No rashes. Results CBC & Chem 7: 06/08/20 17:26 06/08/20 16:34 Labs: Abnormal Lab Results - Last 24 Hours (Table) 06/08/20 06/08/20 06/08/20 Range/Units 16:34 20:51 21:58 APTT (22.0-30.0) sec Sodium 132 L (137-145) mmol/L Carbon Dioxide 18 L (22-30) mmol/L Glucose 374 H (74-99) mg/dL POC Glucose (mg/dL) 309 H 307 H (75-99) mg/dL 06/09/20 06/09/20 06/09/20 Range/Units 00:41 06:45 10:34 APTT 41.5 H (22.0-30.0) sec Sodium (137-145) mmol/L Carbon Dioxide (22-30) mmol/L Glucose (74-99) mg/dL POC Glucose (mg/dL) 187 H 162 H (75-99) mg/dL Thrombosis Risk Factor Assmnt - Choose All That Apply Each Factor Represents 1 point: Age 41-60 years, Obesity (BMI >25) Each Risk Factor Represents 3 Points: History of DVT/PE Thrombosis Risk Factor Assessment Total Risk Factor Score: 5 Thrombosis Risk Factor Assessment Level: High Risk Assessment and Plan Plan: -Chest pain, atypical: Recent stress test which was negative. Ruled out acute coronary syndromes patient will be discharged today. Psychosomatism need to be considered. 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 -Professor disease -Hyperlipidemia -Hypertension -Type 2 diabetes mellitus -Nicotine dependence -Bipolar disorder Patient will be discharged today cleared by cardiology.
--- NOTE | 2020-06-09 11:15 | P.DS ---
Providers Date of admission: 06/08/20 18:18 Attending physician: Obie Gonzalez MD Consults: 06/08/20 18:16 Consult Physician Urgent Consulting Provider: [facility] Consult Reason/Comments: Unstable angina Do you want consulting provider notified?: Yes Primary care physician: Physician Nonsta Hospital Course: Refer to [facility] for further details. Plan - Discharge Summary Discharge Rx Participant: No New Discharge Prescriptions: No Action Folic Acid 1 mg PO DAILY tiZANidine [Zanaflex] 4 mg PO Q8H PRN PRN Reason: muscle spasms Spironolactone 25 mg PO HS Sertraline [Zoloft] 50 mg PO DAILY Ferrous Sulfate [Iron (65 MG Elemental)] 325 mg PO BID Calcium Carbonate [Calcium] 600 mg PO DAILY Ranolazine [Ranexa] 1,000 mg PO BID QUEtiapine [SEROquel] 50 mg PO HS Potassium Chloride ER [K-Dur 20] 20 meq PO DAILY Mirtazapine [Remeron] 45 mg PO HS INSULIN ASPART (NovoLOG) [NovoLOG (formulary)] See Protocol SQ ACHS lisinopriL [Zestril] 2.5 mg PO DAILY Metoprolol Tartrate [Lopressor] 25 mg PO BID Levothyroxine Sodium [Synthroid] 175 mcg PO DAILY levETIRAcetam [Keppra] 500 mg PO BID Aspirin 81 mg PO DAILY hydrOXYzine pamoate [Vistaril] 25 mg PO TID Isosorbide Mononitrate ER [Imdur] 30 mg PO DAILY Insulin Glargine,Hum.rec.anlog [Lantus Solostar] 28 unit SQ BID Furosemide [Lasix] 40 mg PO DAILY Ticagrelor [Brilinta] 90 mg PO BID Cyclobenzaprine [Flexeril] 10 mg PO TID Atorvastatin [Lipitor] 80 mg PO DAILY ARIPiprazole [Abilify] 5 mg PO HS Loperamide [Imodium] 2 mg PO QID PRN PRN Reason: Diarrhea Discharge Medication List ARIPiprazole [Abilify] 5 mg PO HS 05/21/20 [History] Aspirin 81 mg PO DAILY 05/21/20 [History] Atorvastatin [Lipitor] 80 mg PO DAILY 05/21/20 [History] Calcium Carbonate [Calcium] 600 mg PO DAILY 05/21/20 [History] Cyclobenzaprine [Flexeril] 10 mg PO TID 05/21/20 [History] Ferrous Sulfate [Iron (65 MG Elemental)] 325 mg PO BID 05/21/20 [History] Folic Acid 1 mg PO DAILY 05/21/20 [History] Furosemide [Lasix] 40 mg PO DAILY 05/21/20 [History] INSULIN ASPART (NovoLOG) [NovoLOG (formulary)] See Protocol SQ ACHS 05/21/20 [History] Insulin Glargine,Hum.rec.anlog [Lantus Solostar] 28 unit SQ BID 05/21/20 [History] Isosorbide Mononitrate ER [Imdur] 30 mg PO DAILY 05/21/20 [History] Levothyroxine Sodium [Synthroid] 175 mcg PO DAILY 05/21/20 [History] Metoprolol Tartrate [Lopressor] 25 mg PO BID 05/21/20 [History] Mirtazapine [Remeron] 45 mg PO HS 05/21/20 [History] Potassium Chloride ER [K-Dur 20] 20 meq PO DAILY 05/21/20 [History] QUEtiapine [SEROquel] 50 mg PO HS 05/21/20 [History] Ranolazine [Ranexa] 1,000 mg PO BID 05/21/20 [History] Sertraline [Zoloft] 50 mg PO DAILY 05/21/20 [History] Spironolactone 25 mg PO HS 05/21/20 [History] Ticagrelor [Brilinta] 90 mg PO BID 05/21/20 [History] hydrOXYzine pamoate [Vistaril] 25 mg PO TID 05/21/20 [History] levETIRAcetam [Keppra] 500 mg PO BID 05/21/20 [History] lisinopriL [Zestril] 2.5 mg PO DAILY 05/21/20 [History] tiZANidine [Zanaflex] 4 mg PO Q8H PRN 05/21/20 [History] Loperamide [Imodium] 2 mg PO QID PRN 06/08/20 [History] Follow up Appointment(s)/Referral(s): Nonstaff,Physician [Primary Care Provider] - 1-2 days
== END 2020-06-09 15:54 | disposition home or self-care (01) ==
LOC: EC 16:00 → 1SOBS 18:18
PROVIDERS: ADMIT Internal Medicine; ATTEND Internal Medicine
DX: R07.89 Other chest pain (principal); R07.2 Precordial pain; R06.02 Shortness of breath; R61 Generalized hyperhidrosis; I10 Essential (primary) hypertension; I25.10 Atherosclerotic heart disease of native coronary artery without angina pectoris; F17.200 Nicotine dependence, unspecified, uncomplicated; F31.9 Bipolar disorder, unspecified; E78.5 Hyperlipidemia, unspecified; R11.2 Nausea with vomiting, unspecified; I45.10 Unspecified right bundle-branch block; E11.51 Type 2 diabetes mellitus with diabetic peripheral angiopathy without gangrene; R32 Unspecified urinary incontinence; E66.9 Obesity, unspecified; Z68.27 Body mass index [BMI] 27.0-27.9, adult; M62.838 Other muscle spasm; R19.7 Diarrhea, unspecified; Z95.5 Presence of coronary angioplasty implant and graft; Z95.2 Presence of prosthetic heart valve; Z95.1 Presence of aortocoronary bypass graft; Z95.828 Presence of other vascular implants and grafts; Z79.899 Other long term (current) drug therapy; Z79.82 Long term (current) use of aspirin; Z79.51 Long term (current) use of inhaled steroids; Z79.890 Hormone replacement therapy; Z79.4 Long term (current) use of insulin; Z79.02 Long term (current) use of antithrombotics/antiplatelets; Z88.8 Allergy status to other drugs, medicaments and biological substances; Z86.718 Personal history of other venous thrombosis and embolism; Z86.711 Personal history of pulmonary embolism
CPT/HCPCS: 93005 ×2; 96366 ×2; 96372; 96376 ×2; 96365; 96375; 99291; 36415; 80053; 83735; 84484; 85025; 85610; 85730 ×2; 71046; G0378 ×2; J1644 ×3; J2405; J1885

== ENCOUNTER 2020-06-25 10:57 | Inpatient (IN) | payer MEDICARE, OTHER ==
[2020-06-25] MEDS ORDERED: LIDOCAINE 1% INJ 10MG/ML (20 ML MDV) ONE (12:27)
[2020-06-25] MEDS ORDERED: SODIUM CHLORIDE 0.9% 1,000 ML IV ONE (12:35)
[2020-06-25] MEDS ORDERED: MIDAZOLAM 2 MG/2 ML VIAL IVP ONE (12:40)
[2020-06-25] MEDS ORDERED: LIDOCAINE 1% INJ 10MG/ML (20 ML MDV) SQ ONE (12:41)
[2020-06-25] MEDS ORDERED: fentaNYL (PF) 50 MCG/ML 2 ML AMP ONE (12:44)
[2020-06-25] MEDS ORDERED: fentaNYL (PF) 50 MCG/ML 2 ML AMP IVP ONE (12:45)
[2020-06-25] MEDS ORDERED: BIVALIRUDIN BOLUS 250 MG/50 ML IV ONE (12:48)
[2020-06-25] MEDS ORDERED: BIVALIRUDIN 250 MG in SODIUM CHLORIDE 0.9% 50 ML IV ONE (12:49)
[2020-06-25] MEDS ORDERED: NITROGLYCERIN 1000MCG/10ML SYRINGE INTRACORON ONE (12:56)
[2020-06-25] MEDS ORDERED: IOPAMIDOL-370 125ML BTL INJ ONE (13:08)
[2020-06-25] MEDS ORDERED: ATROPINE SULFATE 0.1 MG/ML 10ML SYRINGE IV PRN (13:09)
[2020-06-25] MEDS ORDERED: NITROGLYCERIN SL TABS 0.4 MG TAB SUBLINGUAL PRN (13:09)
[2020-06-25] MEDS ORDERED: ZOLPIDEM 5 MG TAB PO PRN (13:09)
[2020-06-25] MEDS ORDERED: MAG HYDROX/AL HYDROX/SIMETH 30 ML CUP PO PRN (13:09)
[2020-06-25] MEDS ORDERED: RX INFO: IV CONTRAST WAS GIVEN 1 EACH MISC MISCELLANE PRN (13:09)
[2020-06-25] MEDS ORDERED: SODIUM CHLORIDE 0.9% 1,000 ML IV SCH (13:15)
[2020-06-25 13:31] LABS: Glucose,Whole Blood 68 mg/dL (75-99)
[2020-06-25 14:22] LABS: Glucose,Whole Blood 79 mg/dL (75-99)
[2020-06-25] MEDS ORDERED: ONDANSETRON 4 MG/2 ML VIAL IVP ONE (15:43)
[2020-06-25 15:45] LABS: Glucose,Whole Blood 96 mg/dL (75-99)
--- NOTE | 2020-06-25 16:15 | PTCA ---
PERCUTANEOUSTRANS CORORONARY ANGIOGRAPHY DATE OF SERVICE: 06/25/2020 PERFORMING PHYSICIAN: Elier Murillo MD. PROCEDURE PERFORMED: Successful stenting of the PDA branch of the right coronary artery using 2.5 x 18 mm Xience ARON with good angiographic results. SELECTIVE LEFT COMMON FEMORAL ARTERY ANGIOGRAM: INDICATION: This is a 54-year-old female patient with extensive history of coronary artery disease and prior stenting in the past, who was admitted to [facility] with chest discomfort and underwent myocardial perfusion imaging stress test and that revealed reversible defect. She underwent a heart catheterization over there and that revealed severe disease involving the PDA branch of the RCA. Because she continues to have chest discomfort we advised proceeding with PCI of the PDA. Initially the patient was treated medically and she continues to have chest discomfort. APPROACH: Left common femoral artery. COMPLICATION: None. LEVEL OF SEDATION: Moderate with sedation length of 24 minutes. 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 The left common femoral artery was cannulated using micropuncture technique, the micropuncture passed easily. Then I placed a 6-[place] sheath at the left common femoral artery. I did after that start anticoagulation with Angiomax. After that, I did engage the RCA using JR4 guide. I did wire it using a run-through wire. Balloon angioplasty was performed using 2.0 x 12 mm balloon before I deployed 2.5 x 18 mm Xience drug-eluting stent where the stent was positioned under fluoroscopy guidance and deployed under its nominal pressure. The following angiogram showed good angiographic results and the procedure was completed without any complication. POSTPROCEDURE MANAGEMENT: 1. Dual anti-platelet therapy. 2. Risk factor modifications. 3. Follow up with the patient. MMODL / IJN: [id number] /
[2020-06-25] MEDS ORDERED: ONDANSETRON 4 MG/2 ML VIAL IVP PRN (17:58)
[2020-06-25] MEDS: HYDROmorphone 0.5 MG/0.5 ML SYRINGE IVP PRN ×2 (18:09→22:37)
[2020-06-25] MEDS ORDERED: tiZANidine 4 MG TAB PO PRN (19:56)
[2020-06-25] MEDS ORDERED: LOPERAMIDE 2 MG CAP PO PRN (19:56)
[2020-06-25 20:18] LABS: Glucose,Whole Blood 216 mg/dL (75-99)
[2020-06-25] MEDS ORDERED: CYCLOBENZAPRINE 10 MG TAB PO PRN (20:33)
[2020-06-25] MEDS: ARIPiprazole 5 MG TAB PO SCH (20:44)
[2020-06-25] MEDS: RANOLAZINE 500 MG TAB.ER.12H PO SCH (20:44)
[2020-06-25] MEDS: QUEtiapine 50 MG TAB PO SCH (20:44)
[2020-06-25] MEDS: levETIRAcetam 500 MG TAB PO SCH (20:44)
[2020-06-25] MEDS: SPIRONOLACTONE 25 MG TAB PO SCH (20:44)
[2020-06-25] MEDS: METOPROLOL TARTRATE 25 MG TAB PO SCH (20:44)
[2020-06-25] MEDS: FERROUS SULFATE 325 MG TAB PO SCH (20:44)
[2020-06-25] MEDS: MIRTAZAPINE 45 MG TABLET PO SCH (20:44)
[2020-06-25] MEDS: TICAGRELOR 90 MG TAB PO SCH (20:44)
[2020-06-25] MEDS: hydrOXYzine pamoate 25 MG CAP PO SCH (20:45)
[2020-06-25] MEDS: INSULIN DETEMIR (LEVEMIR) 100 UNIT/ML SYR SQ SCH (20:46)
[2020-06-25] MEDS: INSULIN ASPART (NovoLOG) 100 UNIT/ML VIAL SQ SCH (20:46)
[2020-06-25] MEDS ORDERED: TICAGRELOR 90 MG TAB PO SCH (21:00)
[2020-06-25] MEDS ORDERED: CYCLOBENZAPRINE 10 MG TAB PO SCH (22:00)
[2020-06-26] MEDS: HYDROmorphone 0.5 MG/0.5 ML SYRINGE IVP PRN ×5 (01:42→18:24)
[2020-06-26 06:33] LABS: Glucose,Whole Blood 121 mg/dL (75-99)
[2020-06-26] MEDS: INSULIN ASPART (NovoLOG) 100 UNIT/ML VIAL SQ SCH ×4 (06:34→21:25)
[2020-06-26] MEDS: LEVOTHYROXINE 88 MCG TAB PO SCH (06:36)
[2020-06-26] MEDS: INSULIN DETEMIR (LEVEMIR) 100 UNIT/ML SYR SQ SCH ×2 (06:36→21:30)
[2020-06-26] MEDS: CALCIUM CARBONATE 500 MG CHEWABLE PO SCH (10:16)
[2020-06-26] MEDS: ASPIRIN 81 MG PO SCH (10:16)
[2020-06-26] MEDS: ATORVASTATIN 80 MG TAB PO SCH (10:16)
[2020-06-26] MEDS: FERROUS SULFATE 325 MG TAB PO SCH ×2 (10:17→21:29)
[2020-06-26] MEDS: levETIRAcetam 500 MG TAB PO SCH ×2 (10:17→21:29)
[2020-06-26] MEDS: METOPROLOL TARTRATE 25 MG TAB PO SCH ×2 (10:17→21:29)
[2020-06-26] MEDS: SERTRALINE 50 MG TAB PO SCH (10:18)
[2020-06-26] MEDS: FOLIC ACID 1 MG TAB PO SCH (10:18)
[2020-06-26] MEDS: hydrOXYzine pamoate 25 MG CAP PO SCH ×3 (10:18→21:30)
[2020-06-26] MEDS: POTASSIUM CHLORIDE ER 20 MEQ TAB.ER PO SCH (10:18)
[2020-06-26] MEDS: ISOSORBIDE MONONITRATE ER 30 MG TAB.ER.24H PO SCH (10:18)
[2020-06-26] MEDS: RANOLAZINE 500 MG TAB.ER.12H PO SCH ×2 (10:18→21:29)
[2020-06-26] MEDS: FUROSEMIDE 40 MG TAB PO SCH (10:20)
[2020-06-26] MEDS: TICAGRELOR 90 MG TAB PO SCH ×2 (10:20→21:29)
[2020-06-26 11:40] LABS: African American GFR (CKD) >90 (>60 ml/min/1.73 sqM); Anion Gap 9 mmol/L; Blood Urea Nitrogen 20 mg/dL (7-17); Carbon Dioxide 23 mmol/L (22-30); Chloride 106 mmol/L (98-107); Glucose 244 mg/dL (74-99); Non-African American GFR(CKD) 81 (>60 ml/min/1.73 sqM); Potassium 4.4 mmol/L (3.5-5.1); Sodium 138 mmol/L (137-145)
[2020-06-26 11:42] LABS: Glucose,Whole Blood 201 mg/dL (75-99)
[2020-06-26 11:51] LABS: HCT 39.7 % (34.0-46.0); HGB 12.5 gm/dL (11.4-16.0); MCH 30.4 pg (25.0-35.0); MCHC 31.5 g/dL (31.0-37.0); Mean Platelet Volume 7.6; Platelet Count 226 k/uL (150-450); RBC 4.11 m/uL (3.80-5.40); RDW 14.6 % (11.5-15.5); WBC 5.2 k/uL (3.8-10.6)
[2020-06-26 12:07] LABS: MCV 96.6 fL (80.0-100.0)
[2020-06-26 12:39] VITALS: BMI 28.5
--- NOTE | 2020-06-26 13:17 | P.PN ---
Subjective This is a pleasant 54-year-old female past medical history significant for coronary artery disease status post 4V bypass grafting in 2013, diabetes mellitus, hypertension, dyslipidemia, bipolar disorder, valvular heart disease status post mitral valve repair 2016, peripheral vascular disease and chronic nicotine dependence. 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 She underwent successful PCI of the PDA branch with Dr. Murillo yesterday. She is seen and examined sitting up in bed in no acute distress. Repeat EKG this morning reve als sinus mechanism. Blood pressure 137/70 heart rate 68 afebrile maintaining oxygen saturation on room air. Laboratory data reviewed, sodium 138, potassium 4.4, creatinine 0.83. Left femoral artery access site clean, dry and intact with no evidence of bleeding, hematoma or ecchymosis. Distal pulses intact. Currently maintained on aspirin 81 mg daily, atorvastatin 80 mg daily, Lasix 40 mg by mouth daily, Imdur 30 mg daily, lisinopril 2.5 mg daily, metoprolol 25 mg twice a day, Ranexa 1000 mg twice a day, Aldactone 25 mg at bedtime and brilinta 90 mg twice a day. Previous echocardiogram in May revealed preserved LV systolic function with ejection fraction 55-60% with a mean gradient across the mitral valve is 6 mmHg with a normally functioning bioprosthetic valve and mild tricuspid regurgitation. GENERAL: Well-appearing, well-nourished and in no acute distress. NECK: Supple without JVD or thyromegaly. LUNGS: Breath sounds clear to auscultation bilaterally. Respiration equal and unlabored. No wheezes, rales or rhonchi. HEART: Regular rate and rhythm without murmurs, rubs or gallops. S1 and S2 heard. EXTREMITIES: Normal range of motion, no edema. No clubbing or cyanosis. Peripheral pulses intact. ASSESSMENT Chest pain Coronary artery disease status post PCI with history of bypass grafting 2013 Hypertension Status post mitral valve repair 2013 Peripheral vascular disease Hypertension Dyslipidemia Diabetes mellitus Chronic nicotine dependence PLAN Clinically stable from a cardiac perspective. Dual antiplatelet therapy discussed with the patient. Can be discharged from a cardiac perspective. Follow up with Dr. Murillo in the office in 1-week. Nurse Practitioner note has been reviewed, I agree with a documented findings and plan of care. Patient was seen and examined. Objective - Vital Signs Vital signs: Vital Signs Temp 98.1 F 06/26/20 10:00 Pulse 68 12/12/20 10:00 Resp 16 06/26/20 10:00 BP 137/70 06/26/20 10:00 Pulse Ox 100 06/26/20 10:00 Intake & Output 06/25/20 06/26/20 06/26/20 18:59 06:59 18:59 Intake Total 623 480 80 Output Total 400 Balance 223 480 80 Weight 75 kg 80.1 kg Intake: IV 623 Oral 480 80 Output: Urine 400 Other: # Voids 1 - Labs CBC & Chem 7: 06/26/20 10:17 06/26/20 10:17 Labs: Abnormal Lab Results - Last 24 Hours (Table) 06/25/20 06/25/20 06/26/20 Range/Units 13:28 20:16 06:14 BUN (7-17) mg/dL Glucose (74-99) mg/dL POC Glucose (mg/dL) 68 L 216 H 121 H (75-99) mg/dL 06/26/20 06/26/20 Range/Units 10:17 11:40 BUN 20 H (7-17) mg/dL Glucose 244 H (74-99) mg/dL POC Glucose (mg/dL) 201 H (75-99) mg/dL
--- NOTE | 2020-06-26 16:26 | HP ---
HISTORY AND PHYSICAL A 54-year-old white female was admitted with unstable angina and multiple coronary arterial blockages for which she was transferred over to [facility] for stent which was placed by Dr. Murillo yesterday in the coronary artery. She is being monitored postop at this point. After a successful stenting of the PDA branch of the right coronary artery using a stent with good results. She is also being treated for urinary tract infection. Remains on IV Rocephin. MEDICATIONS: See list. REVIEW OF SYSTEMS: History of 48 stents in the past. Cardiac stents. PAST SURGICAL HISTORY: See old chart. PHYSICAL EXAM: She has given appropriate answers. No acute distress. Well-appearing, well-nourished, little bit overweight. BMI is over 30. LUNGS: Clear. NECK: Supple. CARDIOVASCULAR: S1, S2. EXTREMITIES: Normal range of motion. She has a history of severe back pain with leg pain, osteoarthritis. 14-point review of systems negative except for mentioned in HPI. Unstable angina with chest pain for the last week or so in the hospital. This is the second heart catheterization she has had. ASSESSMENT: 1. Atypical chest pain. 2. Urinary tract infection. 3. Coronary artery disease status post PTCI. 4. Unstable angina. 5. Hypertension. 6. History of mitral valve repair in 2013. 7. Peripheral vascular disease. 8. Hypertension. 9. Dyslipidemia. 10.Diabetes mellitus. 11.As mentioned, urinary tract infection remaining on Rocephin. 12.Nicotine addiction. Begin to take dual antiplatelet therapy. She will possibly be discharged from hospital at this point today. MMODL / IJN: [id number] /
[2020-06-26 16:56] LABS: Glucose,Whole Blood 79 mg/dL (75-99)
[2020-06-26 21:16] LABS: Glucose,Whole Blood 106 mg/dL (75-99)
[2020-06-26] MEDS: ARIPiprazole 5 MG TAB PO SCH (21:29)
[2020-06-26] MEDS: MIRTAZAPINE 45 MG TABLET PO SCH (21:29)
[2020-06-26] MEDS: SPIRONOLACTONE 25 MG TAB PO SCH (21:29)
[2020-06-26] MEDS: QUEtiapine 50 MG TAB PO SCH (21:30)
[2020-06-27 00:02] LABS: Hemoglobin A1C 11.7 % (4.0-6.0)
[2020-06-27] MEDS: HYDROmorphone 0.5 MG/0.5 ML SYRINGE IVP PRN ×3 (00:11→10:53)
[2020-06-27 06:11] LABS: Glucose,Whole Blood 77 mg/dL (75-99)
[2020-06-27] MEDS: INSULIN ASPART (NovoLOG) 100 UNIT/ML VIAL SQ SCH ×2 (06:17→12:33)
[2020-06-27] MEDS: INSULIN DETEMIR (LEVEMIR) 100 UNIT/ML SYR SQ SCH (06:36)
[2020-06-27] MEDS: LEVOTHYROXINE 88 MCG TAB PO SCH (06:36)
[2020-06-27] MEDS: ASPIRIN 81 MG PO SCH (09:48)
[2020-06-27] MEDS: FERROUS SULFATE 325 MG TAB PO SCH (09:49)
[2020-06-27] MEDS: FUROSEMIDE 40 MG TAB PO SCH (09:49)
[2020-06-27] MEDS: CALCIUM CARBONATE 500 MG CHEWABLE PO SCH (09:49)
[2020-06-27] MEDS: ATORVASTATIN 80 MG TAB PO SCH (09:49)
[2020-06-27] MEDS: hydrOXYzine pamoate 25 MG CAP PO SCH (09:49)
[2020-06-27] MEDS: FOLIC ACID 1 MG TAB PO SCH (09:49)
[2020-06-27] MEDS: POTASSIUM CHLORIDE ER 20 MEQ TAB.ER PO SCH (09:50)
[2020-06-27] MEDS: ISOSORBIDE MONONITRATE ER 30 MG TAB.ER.24H PO SCH (09:50)
[2020-06-27] MEDS: RANOLAZINE 500 MG TAB.ER.12H PO SCH (09:50)
[2020-06-27] MEDS: levETIRAcetam 500 MG TAB PO SCH (09:50)
[2020-06-27] MEDS: METOPROLOL TARTRATE 25 MG TAB PO SCH (09:50)
[2020-06-27] MEDS: TICAGRELOR 90 MG TAB PO SCH (09:51)
[2020-06-27] MEDS: SERTRALINE 50 MG TAB PO SCH (09:51)
--- NOTE | 2020-06-27 11:50 | DS ---
DISCHARGE SUMMARY 54-year-old white female transferred from [facility] over to the [facility] for PTCA of the right coronary artery under Dr. Murillo's care. Medications were reviewed and changed by Cardiology. She was also treated for UTI with IV Rocephin switched to Augmentin. Home medicines were resolved. Her chest pain resolved with angioplasty at which time she stayed in the hospital for an extra day due to extreme weakness and she will be sent home to follow up as an outpatient with Augmentin for the UTI 875 1 b.i.d. for 7 days. DISCHARGE MEDICINES: Brilinta 90 mg b.i.d. nitroglycerin sublingual for chest pain p.r.n., folic acid 1 mg daily, spironolactone 25 mg daily, Zoloft 50 mg daily, ferrous sulfate 325 b.i.d., calcium carbonate 600 mg daily, Ranexa 1000 b.i.d., Seroquel 50 q.h.s., potassium chloride 20 mEq daily, Remeron 45 mg at night, Accu-Chek protocol a.c. q.h.s., Zestril 2.5 mg daily, Metoprolol 25 b.i.d., Synthroid 175 daily, Keppra 500 b.i.d., aspirin 81 mg daily. Vistaril 25 t.i.d., Imdur 30 mg daily, insulin glargine Lantus 20 units subcu b.i.d., Lasix 40 mg daily, Brilinta 90 mg b.i.d., Flexeril 10 mg t.i.d., Lipitor 80 mg daily. Abilify 5 mg daily, Imodium 2 mg q.i.d. CONDITION: Stable. PROGNOSIS: Guarded. Diet as tolerated. Follow up as an outpatient as mentioned above. MMODL / IJN: [id number] /
[2020-06-27 11:57] LABS: Glucose,Whole Blood 96 mg/dL (75-99)
[2020-06-27 12:29] VITALS: TEMP 98.5
[2020-06-27 12:31] VITALS: BP 125/67; PULSE 71; RESP 16
[2020-06-27] MEDS ORDERED: AMOXIC-POT CLAV 875-125MG 1 EACH TAB PO SCH (21:00)
== END 2020-06-27 17:14 | disposition home or self-care (01) | DRG 247 ==
LOC: 2ORMAIN 14:37 → 3SCARD 18:17
PROVIDERS: ADMIT Family Medicine; ATTEND Internal Medicine Interventional Cardiology
PROC: 027034Z Dilation of Coronary Artery, One Artery with Drug-eluting Intraluminal Device, Percutaneous Approach (ICD-10-PCS; principal; 2020-06-25 19:20)
DX: I25.110 Atherosclerotic heart disease of native coronary artery with unstable angina pectoris (principal); N39.0 Urinary tract infection, site not specified; E11.51 Type 2 diabetes mellitus with diabetic peripheral angiopathy without gangrene; F31.9 Bipolar disorder, unspecified; Z79.4 Long term (current) use of insulin; E66.3 Overweight; E78.5 Hyperlipidemia, unspecified; I07.1 Rheumatic tricuspid insufficiency; I10 Essential (primary) hypertension; Z68.29 Body mass index [BMI] 29.0-29.9, adult; M19.90 Unspecified osteoarthritis, unspecified site; F17.210 Nicotine dependence, cigarettes, uncomplicated; Z71.6 Tobacco abuse counseling; Z79.82 Long term (current) use of aspirin; Z79.02 Long term (current) use of antithrombotics/antiplatelets; Z79.890 Hormone replacement therapy; Z79.899 Other long term (current) drug therapy; Z71.3 Dietary counseling and surveillance; Z95.5 Presence of coronary angioplasty implant and graft; Z95.2 Presence of prosthetic heart valve
CPT/HCPCS: 80048; 83036; 85027

== ENCOUNTER 2020-06-28 17:52 | Observation (INO) | payer MEDICARE, OTHER ==
[2020-06-28] MEDS ORDERED: HYDROmorphone 1 MG/ML 1 ML SYRINGE IVP STA (18:04)
--- NOTE | 2020-06-28 18:14 | ED ---
Chest Pain HPI - General Chief Complaint: Chest Pain Stated Complaint: Chest pain Time Seen by Provider: 06/28/20 17:52 Source: patient, EMS, RN notes reviewed, old records reviewed Mode of arrival: EMS Limitations: no limitations - History of Present Illness Initial Comments: This is a 54-year-old female history of heart disease any symptoms placement 2 days ago who presents back by EMS today with complaints of retrosternal chest pain radiating to her left arm. States it feels somewhat different than her previous cardiac events. She did take aspirin as well as nitroglycerin without improvement. She states is about 8/10 severity right now he states it does radiate to her back. No other current complaints or modifying factors he does have a history of atrial fibrillation. MD Complaint: chest pain - Related Data Home Medications Medication Instructions Recorded Confirmed ARIPiprazole [Abilify] 5 mg PO HS 05/21/20 06/25/20 Aspirin 81 mg PO DAILY 05/21/20 06/25/20 Atorvastatin [Lipitor] 80 mg PO DAILY 05/21/20 06/25/20 Calcium Carbonate [Calcium] 600 mg PO DAILY 05/21/20 06/25/20 Cyclobenzaprine [Flexeril] 10 mg PO TID 05/21/20 06/25/20 Ferrous Sulfate [Iron (65 MG 325 mg PO BID 05/21/20 06/25/20 Elemental)] Folic Acid 1 mg PO DAILY 05/21/20 06/25/20 Furosemide [Lasix] 40 mg PO DAILY 05/21/20 06/25/20 INSULIN ASPART (NovoLOG) [NovoLOG See Protocol SQ ACHS 05/21/20 06/08/20 (formulary)] Insulin Glargine,Hum.rec.anlog 28 unit SQ BID 05/21/20 06/25/20 [Lantus Solostar] Isosorbide Mononitrate ER [Imdur] 30 mg PO DAILY 05/21/20 06/25/20 Levothyroxine Sodium [Synthroid] 175 mcg PO DAILY 05/21/20 06/25/20 Metoprolol Tartrate [Lopressor] 25 mg PO BID 05/21/20 06/25/20 Mirtazapine [Remeron] 45 mg PO HS 05/21/20 06/25/20 Potassium Chloride ER [K-Dur 20] 20 meq PO DAILY 05/21/20 06/25/20 QUEtiapine [SEROquel] 50 mg PO HS 05/21/20 06/25/20 Ranolazine [Ranexa] 1,000 mg PO BID 05/21/20 06/25/20 Sertraline [Zoloft] 50 mg PO DAILY 05/21/20 06/25/20 Spironolactone 25 mg PO HS 05/21/20 06/25/20 Ticagrelor [Brilinta] 90 mg PO BID 05/21/20 06/25/20 hydrOXYzine pamoate [Vistaril] 25 mg PO TID 05/21/20 06/25/20 levETIRAcetam [Keppra] 500 mg PO BID 05/21/20 06/25/20 lisinopriL [Zestril] 2.5 mg PO DAILY 05/21/20 06/25/20 Loperamide [Imodium] 2 mg PO QID PRN 06/08/20 06/25/20 Previous Rx's Medication Instructions Recorded Amoxic-Pot Clav 875-125Mg 1 each PO Q12HR 7 Days #14 tab 06/27/20 [Augmentin 875-125] Nitroglycerin Sl Tabs [Nitrostat] 0.4 mg SUBLINGUAL Q5M PRN 90 Days 06/27/20 #100 tab Ticagrelor [Brilinta] 90 mg PO BID tab 06/27/20 Allergies Allergy/AdvReac Type Severity Reaction Status Date / Time gabapentin Allergy Anaphylaxis Verified 06/08/20 18:52 Review of Systems ROS Statement: Those systems with pertinent positive or pertinent negative responses have been documented in the HPI. ROS Other: All systems not noted in ROS Statement are negative. EKG Findings - EKG Results: EKG: interpreted by ERMD, sinus rhythm (Sinus rhythm rate of 86. Interval 168 QRS 94 QT since QTC 414/495 nonspecific anterior configuration this is compared to an EKG dated 06/26/20) Past Medical History Past Medical History: Coronary Artery Disease (CAD), Chest Pain / Angina, Diabetes Mellitus, Hyperlipidemia, Hypertension, Musculoskeletal Disorder History of Any Multi-Drug Resistant Organisms: None Reported Past Surgical History: Bladder Surgery, Coronary Bypass/CABG, Heart Catheterization Additional Past Surgical History / Comment(s): CABG in 2013, Mitral valve on 2017, Heart Stent, bilateral leg stent Past Anesthesia/Blood Transfusion Reactions: No Reported Reaction Past Psychological History: Bipolar Smoking Status: Current every day smoker Past Alcohol Use History: None Reported Past Drug Use History: None Reported - Past Family History Father Additional Family Medical History / Comment(s): heart disease General Exam - General Exam Comments Initial Comments: This is a well-developed well-nourished awake alert oriented x 3 female Limitations: no limitations General appearance: alert, anxious Head exam: Present: atraumatic, normocephalic, normal inspection Eye exam: Present: normal appearance, PERRL, EOMI. Absent: scleral icterus, conjunctival injection, periorbital swelling ENT exam: Present: normal exam, mucous membranes moist Neck exam: Present: normal inspection. Absent: tenderness, meningismus, lymphadenopathy Respiratory exam: Present: normal lung sounds bilaterally. Absent: respiratory distress, wheezes, rales, rhonchi, stridor Cardiovascular Exam: Present: regular rate, normal rhythm, normal heart sounds. Absent: systolic murmur, diastolic murmur, rubs, gallop, clicks GI/Abdominal exam: Present: soft, tenderness (Mild epigastric tenderness palpation no guarding no rebound), normal bowel sounds. Absent: distended, guarding, rebound, rigid Extremities exam: Present: normal inspection, full ROM, normal capillary refill. Absent: tenderness, pedal edema, joint swelling, calf tenderness Back exam: Present: normal inspection Neurological exam: Present: alert, oriented X3, CN II-XII intact Psychiatric exam: Present: normal affect, normal mood Skin exam: Present: warm, dry, intact, normal color. Absent: rash Course Vital Signs 06/28/20 06/28/20 06/28/20 17:54 18:02 18:30 Temperature 98.5 F Pulse Rate 86 82 Respiratory 17 17 Rate Blood Pressure 129/92 123/64 O2 Sat by Pulse 100 100 98 Oximetry 06/28/20 19:00 Temperature Pulse Rate 80 Respiratory 18 Rate Blood Pressure 142/53 O2 Sat by Pulse Oximetry Chest Pain MDM - MDM I did review the imaging and report no acute findings. Patient still has intermittent chest pain however the initial enzymes are negative. Patient will be admitted the case was discussed with Dr. Gonzalez. Disposition Clinical Impression: Chest pain, Unstable angina pectoris Disposition: ADMITTED IP TO THIS HOSP Condition: Fair Referrals: Jerson Aguilar MD [Primary Care Provider] - 1-2 days
[2020-06-28 18:26] LABS: Basophils % (A) 1 %; Eosinophils # (A) 0.1 k/uL (0-0.7); Eosinophils % (A) 2 %; HCT 35.6 % (34.0-46.0); HGB 11.5 gm/dL (11.4-16.0); Lymphocytes # (A) 1.5 k/uL (1.0-4.8); Lymphocytes % (A) 27 %; MCHC 32.4 g/dL (31.0-37.0); MCV 92.6 fL (80.0-100.0); Mean Platelet Volume 7.8; Monocytes # (A) 0.3 k/uL (0-1.0); Monocytes % (A) 5 %; Neutrophils # (A) 3.4 k/uL (1.3-7.7); Neutrophils % (A) 63 %; Platelet Count 247 k/uL (150-450); RBC 3.85 m/uL (3.80-5.40); RDW 14.7 % (11.5-15.5); WBC 5.3 k/uL (3.8-10.6)
[2020-06-28 18:32] LABS: INR 0.9 (<1.2); Partial Thromboplastin Time 23.6 sec (22.0-30.0); Prothrombin Time 9.4 sec (9.0-12.0)
--- NOTE | 2020-06-28 18:33 | XR ---
EXAMINATION TYPE: XR chest 2V DATE OF EXAM: 06/28/2020 COMPARISON: 06/08/2020 INDICATION: Chest pain TECHNIQUE: Frontal and lateral views of the chest are obtained. FINDINGS: The heart size is normal. The pulmonary vasculature is normal. The lungs are clear. Sternotomy wires are in the midline. Electronic device overlies left chest. Car diac valve surgery is been performed. IMPRESSION: 1. No acute pulmonary process.
[2020-06-28] MEDS ORDERED: ONDANSETRON 4 MG/2 ML VIAL IVP STA (19:19)
[2020-06-28 20:28] LABS: Albumin 3.8 g/dL (3.5-5.0); Calcium 8.6 mg/dL (8.4-10.2); Magnesium 2.1 mg/dL (1.6-2.3); Potassium 4.2 mmol/L (3.5-5.1); Total Bilirubin 0.5 mg/dL (0.2-1.3); Total Protein 6.5 g/dL (6.3-8.2)
[2020-06-28] MEDS ORDERED: ASPIRIN 81 MG PO STA (20:48)
[2020-06-28] MEDS ORDERED: MORPHINE SULFATE 4 MG/ML SYRINGE IVP STA (20:48)
[2020-06-28] MEDS ORDERED: HEPARIN SODIUM,PORCINE 5,000 UNIT/ML 1 ML VIAL IV ONE (20:54)
[2020-06-28] MEDS ORDERED: NITROGLYCERIN SL TABS 0.4 MG TAB SUBLINGUAL PRN (20:54)
[2020-06-28] MEDS ORDERED: HEPARIN SOD,PORK IN 0.45% NACL 25,000 UNIT in 0.45% NACL 1 250ML.BAG IV SCH (21:00)
[2020-06-28] MEDS ORDERED: INSULIN DETEMIR (LEVEMIR) 100 UNIT/ML SYR SQ SCH (22:00)
[2020-06-28] MEDS: RANOLAZINE 500 MG TAB.ER.12H PO SCH (22:32)
[2020-06-28] MEDS: METOPROLOL TARTRATE 25 MG TAB PO SCH (22:33)
[2020-06-28] MEDS: CYCLOBENZAPRINE 10 MG TAB PO SCH (22:33)
[2020-06-28] MEDS: levETIRAcetam 500 MG TAB PO SCH (22:33)
[2020-06-28] MEDS: SPIRONOLACTONE 25 MG TAB PO SCH (22:34)
[2020-06-28] MEDS: FERROUS SULFATE 325 MG TAB PO SCH (22:34)
[2020-06-28] MEDS: SODIUM CHLORIDE 0.9% 1,000 ML IV SCH (22:35)
[2020-06-28] MEDS: INSULIN DETEMIR (LEVEMIR) 100 UNIT/ML SYR SQ SCH (22:45)
[2020-06-28 22:46] LABS: Glucose,Whole Blood 324 mg/dL (75-99)
[2020-06-28] MEDS: hydrOXYzine pamoate 25 MG CAP PO SCH (22:46)
[2020-06-28] MEDS: QUEtiapine 50 MG TAB PO SCH (22:47)
[2020-06-28] MEDS: TICAGRELOR 90 MG TAB PO SCH (22:47)
[2020-06-28] MEDS: ARIPiprazole 5 MG TAB PO SCH (22:48)
[2020-06-28] MEDS: MIRTAZAPINE 45 MG TABLET PO SCH (22:48)
[2020-06-28] MEDS ORDERED: ACETAMINOPHEN TAB 325 MG TAB PO PRN (23:43)
[2020-06-28] MEDS ORDERED: TRIMETHOBENZAMIDE 300 MG CAP PO ONE (23:44)
[2020-06-29] MEDS: NITROGLYCERIN OINT 1 INCH/GM PACKET TOPICAL SCH ×2 (00:22→05:11)
[2020-06-29 04:20] LABS: Cholesterol 159 mg/dL (<200); HDL Cholesterol 68 mg/dL (40-60); LDL Cholesterol,Calculated 70 mg/dL (0-99); Triglycerides 105 mg/dL (<150)
[2020-06-29] MEDS: LEVOTHYROXINE 88 MCG TAB PO SCH (06:21)
[2020-06-29 06:54] LABS: Glucose,Whole Blood 185 mg/dL (75-99)
[2020-06-29] MEDS: INSULIN DETEMIR (LEVEMIR) 100 UNIT/ML SYR SQ SCH ×2 (06:59→22:20)
[2020-06-29] MEDS ORDERED: IBUPROFEN 600 MG TAB PO PRN (08:57)
[2020-06-29] MEDS ORDERED: ASPIRIN 325 MG TAB PO SCH (09:00)
[2020-06-29 09:47] VITALS: RESP 16
[2020-06-29] MEDS: INSULIN ASPART (NovoLOG) 100 UNIT/ML VIAL SQ SCH ×4 (10:10→22:20)
[2020-06-29] MEDS: FUROSEMIDE 40 MG TAB PO SCH (10:22)
[2020-06-29] MEDS: CALCIUM CARBONATE 500 MG CHEWABLE PO SCH (10:22)
[2020-06-29] MEDS: ASPIRIN 81 MG PO SCH (10:22)
[2020-06-29] MEDS: CYCLOBENZAPRINE 10 MG TAB PO SCH ×2 (10:23→17:16)
[2020-06-29] MEDS: ATORVASTATIN 80 MG TAB PO SCH (10:23)
[2020-06-29] MEDS: POTASSIUM CHLORIDE ER 20 MEQ TAB.ER PO SCH (10:23)
[2020-06-29] MEDS: ISOSORBIDE MONONITRATE ER 30 MG TAB.ER.24H PO SCH (10:23)
[2020-06-29] MEDS: levETIRAcetam 500 MG TAB PO SCH ×2 (10:23→22:19)
[2020-06-29] MEDS: TICAGRELOR 90 MG TAB PO SCH ×2 (10:23→22:37)
[2020-06-29] MEDS: FERROUS SULFATE 325 MG TAB PO SCH ×2 (10:23→22:19)
[2020-06-29] MEDS: FOLIC ACID 1 MG TAB PO SCH (10:23)
[2020-06-29] MEDS: RANOLAZINE 500 MG TAB.ER.12H PO SCH ×3 (10:23→22:44)
[2020-06-29] MEDS: SERTRALINE 50 MG TAB PO SCH (10:24)
[2020-06-29] MEDS: METOPROLOL TARTRATE 25 MG TAB PO SCH ×2 (10:28→22:29)
[2020-06-29] MEDS: hydrOXYzine pamoate 25 MG CAP PO SCH ×2 (11:10→17:57)
--- NOTE | 2020-06-29 11:17 | P.CRDCN ---
History of Present Illness History of present illness: HISTORY OF PRESENTING ILLNESS This is a pleasant 54-year-old female past medical history significant for coronary artery disease s/p 4V bypass grafting 2013 with multiple PCI's, pe ripheral vascular disease, mitral valve replacement 2016, diabetes mellitus, hypertension, dyslipidemia and chronic nicotine dependence. She follows regularly with Dr. Salcedo in [place] but has been staying with friends in [place] recently. She has had several admissions to both this [facility] and [facility] for persistent chest pain. A lexiscan stress test was done at [facility] last week that prompted a heart cath. Initially medical management was recommend, however she continued to have chest pain so PCI was performed on the PDA Sunday last week. She is maintained on dual antiplatelet therapy. Following her stent placement she continued to have the same chest pain as prior to stent placement. For 2 days she was kept in the hospital receiving IV dilaudid around the clock. She was discharged home Sunday. She states since having the stent placed she has been having sharp pain in the mid-sternal region constantly. Prior to the procedure her pain felt different, more tight. She states the pain does not radiate anywhere. It is associated with shortness of breath, nausea, dizziness and palpitations at times. She states currently her pain is 7/10. EKG sinus mechanism with poor R- wave progression. Chest x-ray negative for an acute cardiopulmonary process. Laboratory data reviewed, cardiac enzymes negative 3, LDL 70, HDL 68, sodium 134, potassium 4.2, creatinine 0.91, magnesium 2.1, proBNP 524 and CBC unremarkable. Currently maintained on brillinta 90 mg twice a day, aspirin 81 mg daily, atorvastatin 80 mg daily, Lasix 40 mg daily, Imdur 30 mg daily, Lopressor 25 mg twice a day, Ranexa 1000 mg twice a day, Aldactone 25 mg daily and lisinopril 2.5 mg daily. Most recent echocardiogram obtained 05/21/2020 revealed preserved LV systolic function with ejection fraction 55-60%, normally functioning bioprosthetic mitral valve with a mean gradient of 6 mmHg and mild tricuspid regurgitation. REVIEW OF SYSTEMS At the time of my exam: CONSTITUTIONAL: Denies fever or chills. CARDIOVASCULAR: Complains of sharp chest pain. Denies shortness of breath, orthopnea, PND or palpitations. RESPIRATORY: Denies cough. GASTROINTESTINAL: Denies abdominal pain, diarrhea, constipation, nausea or vomiting. MUSCULOSKELETAL: Denies myalgias. NEUROLOGIC: Denies numbness, tingling or weakness. ENDOCRINE: Denies fatigue, weight change, polydipsia or polyurina. GENITOURINARY: Denies burning, hematuria or urgency with micturation. HEMATOLOGIC: Denies history of anemia or bleeding. PHYSICAL EXAMINATION Blood pressure 120/76 heart rate 68 afebrile and maintaining oxygen saturation on room air. CONSTITUTIONAL: No apparent distress. HEENT: Head is normocephalic. Pupils are equal, round. Sclerae anicteric. Mucous membranes of the mouth are moist. No JVD. No carotid bruit. CHEST EXAMINATION: Lungs are clear to auscultation. No chest wall tenderness is noted on palpation or with deep breathing. HEART EXAMINATION: Regular rate and rhythm. S1, S2 heard. Systolic ejection murmur at the apex, no gallops or rub. ABDOMEN: Soft, nontender. Positive bowel sounds. EXTREMITIES: 1+ peripheral pulses, no lower extremity edema and no calf tenderness. Left femoral access site soft and non-tender with no bleeding, hematoma or ecchymosis. NEUROLOGIC EXAMINATION: Patient is awake, alert and oriented x3. ASSESSMENT Chest pain, atypical for angina. Coronary artery disease status post recent PCI maintained on dual antiplatelet therapy History of coronary artery bypass grafting Valvular heart disease status post bioprosthetic mitral valve replacement Peripheral vascular disease Diabetes mellitus Hypertension Dyslipidemia Chronic nicotine dependence PLAN An acute coronary event has been ruled out. Discontinue heparin infusion. Pain is atypical for angina. No EKG evidence of ischemia. No further cardiac workup required at this time. Smoking cessation recommended. Importance of dual antiplatelet therapy discussed. Thank you kindly for this consultation. Nurse Practitioner note has been reviewed, I agree with a documented findings and plan of care. Patient was seen and examined. Past Medical History Past Medical History: Coronary Artery Disease (CAD), Chest Pain / Angina, Diabetes Mellitus, Hyperlipidemia, Hypertension, Musculoskeletal Disorder History of Any Multi-Drug Resistant Organisms: None Reported Past Surgical History: Bladder Surgery, Coronary Bypass/CABG, Heart Catheterization Additional Past Surgical History / Comment(s): CABG in 2014, Mitral valve on 2017, Heart Stent, bilateral leg stent Past Anesthesia/Blood Transfusion Reactions: No Reported Reaction Past Psychological History: Bipolar Smoking Status: Current every day smoker Past Alcohol Use History: None Reported Past Drug Use History: None Reported - Past Family History Father Additional Family Medical History / Comment(s): heart disease Medications and Allergies Home Medications Medication Instructions Recorded Confirmed Type ARIPiprazole [Abilify] 5 mg PO HS 05/21/20 06/28/20 History Aspirin 81 mg PO DAILY 05/21/20 06/28/20 History Atorvastatin [Lipitor] 80 mg PO DAILY 05/21/20 06/28/20 History Calcium Carbonate [Calcium] 600 mg PO DAILY 05/21/20 06/28/20 History Cyclobenzaprine [Flexeril] 10 mg PO TID 05/21/20 06/28/20 History Ferrous Sulfate [Iron (65 MG 325 mg PO BID 05/21/20 06/28/20 History Elemental)] Folic Acid 1 mg PO DAILY 05/21/20 06/28/20 History Furosemide [Lasix] 40 mg PO DAILY 05/21/20 06/28/20 History INSULIN ASPART (NovoLOG) [NovoLOG See Protocol SQ ACHS 05/21/20 06/28/20 History (formulary)] Insulin Glargine,Hum.rec.anlog 28 unit SQ BID 05/21/20 06/28/20 History [Lantus Solostar] Isosorbide Mononitrate ER [Imdur] 30 mg PO DAILY 05/21/20 06/28/20 History Levothyroxine Sodium [Synthroid] 175 mcg PO DAILY 05/21/20 06/28/20 History Metoprolol Tartrate [Lopressor] 25 mg PO BID 05/21/20 06/28/20 History Mirtazapine [Remeron] 45 mg PO HS 05/21/20 06/28/20 History Potassium Chloride ER [K-Dur 20] 20 meq PO DAILY 05/21/20 06/28/20 History QUEtiapine [SEROquel] 50 mg PO HS 05/21/20 06/28/20 History Ranolazine [Ranexa] 1,000 mg PO BID 05/21/20 06/28/20 History Sertraline [Zoloft] 50 mg PO DAILY 05/21/20 06/28/20 History Spironolactone 25 mg PO HS 05/21/20 06/28/20 History hydrOXYzine pamoate [Vistaril] 25 mg PO TID 05/21/20 06/28/20 History levETIRAcetam [Keppra] 500 mg PO BID 05/21/20 06/28/20 History lisinopriL [Zestril] 2.5 mg PO DAILY 05/21/20 06/28/20 History Loperamide [Imodium] 2 mg PO QID PRN 06/08/20 06/28/20 History Amoxic-Pot Clav 875-125Mg 1 each PO Q12HR 7 Days #14 tab 06/27/20 06/28/20 Rx [Augmentin 875-125] Nitroglycerin Sl Tabs [Nitrostat] 0.4 mg SUBLINGUAL Q5M PRN 90 Days 06/27/20 06/28/20 Rx #100 tab Ticagrelor [Brilinta] 90 mg PO BID tab 06/27/20 06/28/20 Rx Allergies Allergy/AdvReac Type Severity Reaction Status Date / Time gabapentin Allergy Anaphylaxis Verified 06/28/20 21:24 shellfish derived [Crab] Allergy Rash/Hives Verified 06/28/20 21:24 Physical Exam Vitals: Vital Signs Temp Pulse Pulse Resp BP BP Pulse Ox 06/29/20 10:28 120/76 06/29/20 09:00 68 16 06/29/20 07:51 97.7 F 68 16 96/64 98 06/29/20 03:38 98.2 F 75 116/71 100 06/29/20 03:35 75 06/28/20 22:06 98.1 F 86 124/68 99 06/28/20 21:23 98.2 F 84 18 102/69 98 06/28/20 21:04 84 18 130/64 06/28/20 20:00 82 18 107/44 06/28/20 19:00 80 18 142/53 06/28/20 18:30 82 17 123/64 98 06/28/20 18:02 100 06/28/20 17:54 98.5 F 86 17 129/92 100 Intake and Output 06/28/20 06/29/20 06/29/20 22:59 06:59 14:59 Intake Total 500 Output Total 225 Balance 275 Intake: Oral 500 Output: Urine 225 Other: Voiding Method Toilet Toilet # Voids 1 2 Weight 73.482 kg Results 06/28/20 18:06 06/28/20 19:50 Cardiac Enzymes 06/28/20 06/28/20 06/28/20 Range/Units 18:06 19:50 21:08 AST 25 (14-36) U/L Troponin I 0.024 0.018 (0.000-0.034) ng/mL 06/28/20 Range/Units 23:55 AST (14-36) U/L Troponin I 0.020 (0.000-0.034) ng/mL Coagulation 06/28/20 06/29/20 Range/Units 18:06 03:38 PT 9.4 (9.0-12.0) sec APTT 23.6 41.1 H (22.0-30.0) sec Lipids 06/29/20 Range/Units 03:38 Triglycerides 105 (<150) mg/dL Cholesterol 159 (<200) mg/dL HDL Cholesterol 68 H (40-60) mg/dL CBC 06/28/20 Range/Units 18:06 WBC 5.3 (3.8-10.6) k/uL RBC 3.85 (3.80-5.40) m/uL Hgb 11.5 (11.4-16.0) gm/dL Hct 35.6 (34.0-46.0) % Plt Count 247 (150-450) k/uL Comprehensive Metabolic Panel 06/28/20 Range/Units 19:50 Sodium 134 L (137-145) mmol/L Potassium 4.2 (3.5-5.1) mmol/L Chloride 103 (98-107) mmol/L Carbon Dioxide 23 (22-30) mmol/L BUN 22 H (7-17) mg/dL Creatinine 0.91 (0.52-1.04) mg/dL Glucose 346 H (74-99) mg/dL Calcium 8.6 (8.4-10.2) mg/dL AST 25 (14-36) U/L ALT 20 (4-34) U/L Alkaline Phosphatase 91 (38-126) U/L Total Protein 6.5 (6.3-8.2) g/dL Albumin 3.8 (3.5-5.0) g/dL Current Medications Generic Name Dose Route Start Last Admin Trade Name Freq PRN Reason Stop Dose Admin Acetaminophen 325 mg 06/28/20 23:43 06/29/20 00:20 Acetaminophen Tab 325 Mg Tab PO 325 mg Q4HR PRN Administration Fever and/ or Pain Aripiprazole 5 mg 06/28/20 21:00 06/28/20 22:48 Aripiprazole 5 Mg Tab PO 5 mg HS CAROLYN Administration Aspirin 81 mg 06/29/20 09:00 06/29/20 10:22 Aspirin 81 Mg PO 81 mg DAILY CAROLYN Administration Atorvastatin Calcium 80 mg 06/29/20 09:00 06/29/20 10:23 Atorvastatin 80 Mg Tab PO 80 mg DAILY CAROLYN Administration Calcium Carbonate/Glycine 500 mg 06/29/20 09:00 06/29/20 10:22 Calcium Carbonate 500 Mg Chewable PO 500 mg DAILY CAROLYN Administration Cyclobenzaprine HCl 10 mg 06/28/20 22:00 06/29/20 10:23 Cyclobenzaprine 10 Mg Tab PO 10 mg TID CAROLYN Administration Ferrous Sulfate 325 mg 06/28/20 21:00 06/29/20 10:23 Ferrous Sulfate 325 Mg Tab PO 325 mg BID CAROLYN Administration Folic Acid 1 mg 06/29/20 09:00 06/29/20 10:23 Folic Acid 1 Mg Tab PO 1 mg DAILY CAROLYN Administration Furosemide 40 mg 06/29/20 09:00 06/29/20 10:22 Furosemide 40 Mg Tab PO 40 mg DAILY CAROLYN Administration Hydroxyzine Pamoate 25 mg 06/28/20 22:00 06/28/20 22:46 Hydroxyzine Pamoate 25 Mg Cap PO 25 mg TID CAROLYN Administration Sodium Chloride 1,000 mls @ 20 mls/hr 06/28/20 21:00 06/28/20 22:35 Saline 0.9% IV 20 mls/hr .Q24H CAROLYN Administration Ibuprofen 600 mg 06/29/20 08:57 06/29/20 10:34 Ibuprofen 600 Mg Tab PO 600 mg QID PRN Administration Pain Insulin Aspart 0 unit 06/29/20 07:30 06/29/20 10:10 Insulin Aspart (Novolog) 100 Unit/Ml Vial SQ Not Given ACHS [facility] Protocol Insulin Detemir 28 unit 06/28/20 22:00 06/29/20 06:59 Insulin Detemir (Levemir) 100 Unit/Ml Syr SQ 28 unit BID@0700,2100 CAROLYN Administration Isosorbide Mononitrate 30 mg 06/29/20 09:00 06/29/20 10:23 Isosorbide Mononitrate Er 30 Mg Tab.Er.24h PO 30 mg DAILY CAROLYN Administration Levetiracetam 500 mg 06/28/20 21:00 06/29/20 10:23 Levetiracetam 500 Mg Tab PO 500 mg BID CAROLYN Administration Levothyroxine Sodium 176 mcg 06/29/20 06:30 06/29/20 06:21 Levothyroxine 88 Mcg Tab PO 176 mcg 0630 CAROLYN Administration Lisinopril 2.5 mg 06/29/20 09:00 06/29/20 10:28 Lisinopril 2.5 Mg Tab PO 2.5 mg DAILY CAROLYN Administration Loperamide HCl 2 mg 06/28/20 20:56 Loperamide 2 Mg Cap PO QID PRN Diarrhea Metoprolol Tartrate 25 mg 06/28/20 21:00 06/29/20 10:28 Metoprolol Tartrate 25 Mg Tab PO 25 mg BID CAROLYN Administration Mirtazapine 45 mg 06/28/20 21:00 06/28/20 22:48 Mirtazapine 45 Mg Tablet PO 45 mg HS CAROLYN Administration Nitroglycerin 0.4 mg 06/28/20 20:54 Nitroglycerin Sl Tabs 0.4 Mg Tab SUBLINGUAL Q5M PRN Chest Pain Potassium Chloride 20 meq 06/29/20 09:00 06/29/20 10:23 Potassium Chloride Er 20 Meq Tab.Er PO 20 meq DAILY CAROLYN Administration Quetiapine Fumarate 50 mg 06/28/20 21:00 06/28/20 22:47 Quetiapine 50 Mg Tab PO 50 mg HS CAROLYN Administration Ranolazine 1,000 mg 06/28/20 21:00 06/29/20 10:23 Ranolazine 500 Mg Tab.Er.12h PO 1,000 mg BID CAROLYN Administration Sertraline HCl 50 mg 06/29/20 09:00 06/29/20 10:24 Sertraline 50 Mg Tab PO 50 mg DAILY CAROLYN Administration Spironolactone 25 mg 06/28/20 21:00 06/28/20 22:34 Spironolactone 25 Mg Tab PO 25 mg HS CAROLYN Administration Ticagrelor 90 mg 06/28/20 21:00 06/29/20 10:23 Ticagrelor 90 Mg Tab PO 90 mg BID CAROLYN Administration Intake and Output 06/28/20 06/29/20 06/29/20 22:59 06:59 14:59 Intake Total 500 Output Total 225 Balance 275 Intake: Oral 500 Output: Urine 225 Other: Voiding Method Toilet Toilet # Voids 1 2 Weight 73.482 kg 06/28/20 18:06 06/28/20 19:50
[2020-06-29 12:07] LABS: Glucose,Whole Blood 92 mg/dL (75-99)
[2020-06-29] MEDS: LOPERAMIDE 2 MG CAP PO PRN (13:55)
[2020-06-29] MEDS: HYDROcodone/APAP 5-325MG 1 EACH TAB PO PRN (13:55)
[2020-06-29] MEDS ORDERED: ONDANSETRON 4 MG/2 ML VIAL IVP PRN (14:13)
[2020-06-29 17:06] LABS: Glucose,Whole Blood 225 mg/dL (75-99)
[2020-06-29 20:30] LABS: Glucose,Whole Blood 249 mg/dL (75-99)
--- NOTE | 2020-06-29 22:10 | P.HPIM ---
History of Present Illness H&P Date: 06/29/20 Chief Complaint: Chest Pain Patient is a 54-year-old female with a known history of coronary artery disease and multiple stent placement, status post four-vessel bypass grafting 2013, diabetes type 2, hypertension, hyperlipidemia, peripheral vascular disease, mitral valve replacement in 2016 and currently everyday smoker presents to ER with complaints of retrosternal chest pain radiating to the left arm. 8 x 10 in severity. Associate with shortness of breath. No nausea vomiting or diaphoresis. Patient had PCI performed on the [facility] Sunday last week. She was discharged home on Sunday afternoon. Patient states that since the stent placement she has been having sharp pain in the midsternal region constantly. Patient has been having persistent chest pains and has multiple stent placements. Patient denied any fever or chills. No cough or sputum production. EKG showed sinus rhythm with poor R wave progression. Chest x-ray showed no acute cardiopulmonary process. Patient had Lexiscan stress test on [facility], [place], operated by [facility] and followed by cardiac catheterization due to persistent chest pain. Laboratory data showed sodium 134, potassium 4.2, chloride 103, BUN 2020 creatinine 0.9 Blood sugar is 346 Troponin x3 - proBNP is 524 Review of Systems Constitutional: Patient denies any fever or chills . No generalized weakness or weight loss. Abdomen: Patient denied nausea vomiting and diarrhea and abdominal pain. Cardiovascular: +chest pain. short of breath no palpitations. Respiratory: patient denied any cough or sputum production. No shortness of breath Neurologic: Patient denied any numbness or tingling headache. Musculoskeletal: Patient denies any complaints of joint swelling or deformity. Skin: Negative Psychiatric: Negative Endocrine: No heat or cold intolerance. No recent weight gain. Genitourinary: No dysuria or hematuria. All other 14 point ROS negative except the above Past Medical History Past Medical History: Coronary Artery Disease (CAD), Chest Pain / Angina, Diabetes Mellitus, Hyperlipidemia, Hypertension, Musculoskeletal Disorder History of Any Multi-Drug Resistant Organisms: None Reported Past Surgical History: Bladder Surgery, Coronary Bypass/CABG, Heart Catheterization Additional Past Surgical History / Comment(s): CABG in 2013, Mitral valve on 2016, Heart Stent, bilateral leg stent Past Anesthesia/Blood Transfusion Reactions: No Reported Reaction Past Psychological History: Bipolar Smoking Status: Current every day smoker Past Alcohol Use History: None Reported Past Drug Use History: None Reported - Past Family History Father Additional Family Medical History / Comment(s): heart disease Medications and Allergies Home Medications Medication Instructions Recorded Confirmed Type ARIPiprazole [Abilify] 5 mg PO HS 05/21/20 06/28/20 History Aspirin 81 mg PO DAILY 05/21/20 06/28/20 History Atorvastatin [Lipitor] 80 mg PO DAILY 05/21/20 06/28/20 History Calcium Carbonate [Calcium] 600 mg PO DAILY 05/21/20 06/28/20 History Cyclobenzaprine [Flexeril] 10 mg PO TID 05/21/20 06/28/20 History Ferrous Sulfate [Iron (65 MG 325 mg PO BID 05/21/20 06/28/20 History Elemental)] Folic Acid 1 mg PO DAILY 05/21/20 06/28/20 History Furosemide [Lasix] 40 mg PO DAILY 05/21/20 06/28/20 History INSULIN ASPART (NovoLOG) [NovoLOG See Protocol SQ ACHS 05/21/20 06/28/20 History (formulary)] Insulin Glargine,Hum.rec.anlog 28 unit SQ BID 05/21/20 06/28/20 History [Lantus Solostar] Isosorbide Mononitrate ER [Imdur] 30 mg PO DAILY 05/21/20 06/28/20 History Levothyroxine Sodium [Synthroid] 175 mcg PO DAILY 05/21/20 06/28/20 History Metoprolol Tartrate [Lopressor] 25 mg PO BID 05/21/20 06/28/20 History Mirtazapine [Remeron] 45 mg PO HS 05/21/20 06/28/20 History Potassium Chloride ER [K-Dur 20] 20 meq PO DAILY 05/21/20 06/28/20 History QUEtiapine [SEROquel] 50 mg PO HS 05/21/20 06/28/20 History Ranolazine [Ranexa] 1,000 mg PO BID 05/21/20 06/28/20 History Sertraline [Zoloft] 50 mg PO DAILY 05/21/20 06/28/20 History Spironolactone 25 mg PO HS 05/21/20 06/28/20 History hydrOXYzine pamoate [Vistaril] 25 mg PO TID 05/21/20 06/28/20 History levETIRAcetam [Keppra] 500 mg PO BID 05/21/20 06/28/20 History lisinopriL [Zestril] 2.5 mg PO DAILY 05/21/20 06/28/20 History Loperamide [Imodium] 2 mg PO QID PRN 06/08/20 06/28/20 History Amoxic-Pot Clav 875-125Mg 1 each PO Q12HR 7 Days #14 tab 06/27/20 06/28/20 Rx [Augmentin 875-125] Nitroglycerin Sl Tabs [Nitrostat] 0.4 mg SUBLINGUAL Q5M PRN 90 Days 06/27/20 06/28/20 Rx #100 tab Ticagrelor [Brilinta] 90 mg PO BID tab 06/27/20 06/28/20 Rx Allergies Allergy/AdvReac Type Severity Reaction Status Date / Time gabapentin Allergy Anaphylaxis Verified 06/28/20 21:24 shellfish derived [Crab] Allergy Rash/Hives Verified 06/28/20 21:24 Physical Exam Vitals: Vital Signs Temp Pulse Pulse Resp BP BP Pulse Ox 06/29/20 10:28 120/76 06/29/20 09:00 68 16 06/29/20 07:51 97.7 F 68 16 96/64 98 06/29/20 03:38 98.2 F 75 116/71 100 06/29/20 03:35 75 06/28/20 22:06 98.1 F 86 124/68 99 06/28/20 21:23 98.2 F 84 18 102/69 98 06/28/20 21:04 84 18 130/64 06/28/20 20:00 82 18 107/44 06/28/20 19:00 80 18 142/53 06/28/20 18:30 82 17 123/64 98 06/28/20 18:02 100 06/28/20 17:54 98.5 F 86 17 129/92 100 Intake and Output 06/28/20 06/29/20 06/29/20 22:59 06:59 14:59 Intake Total 500 Output Total 225 Balance 275 Intake: Oral 500 Output: Urine 225 Other: Voiding Method Toilet Toilet # Voids 1 2 Weight 73.482 kg PHYSICAL EXAMINATION: Patient is lying in the bed comfortably, no acute distress, awake alert and oriented.. HEENT: Normocephalic. Neck is supple. Pupils reactive. Nostrils clear. Oral cavity is moist. Ears reveal no drainage. Neck reveals no JVD, carotid bruits, or thyromegaly. CHEST EXAMINATION: Trachea is central. Symmetrical expansion. Lung coleman clear to auscultation and percussion. CARDIAC: Normal S1, S2 with no gallops. No murmurs ABDOMEN: Soft. Bowel sounds normal. No organomegaly. No abdominal bruits. Extremities: reveal no edema. No clubbing or cyanosis Neurologically awake, alert, oriented x3 with well-coordinated movements. No focal deficits noted Skin: No rash or skin lesions. Psychiatric: Coperative. Nonsuicidal Musculoskeletal: No joint swelling or deformity. Normal range of motion. Results CBC & Chem 7: 06/28/20 18:06 06/28/20 19:50 Labs: Abnormal Lab Results - Last 24 Hours (Table) 06/28/20 06/28/20 06/29/20 Range/Units 19:50 22:44 03:38 APTT (22.0-30.0) sec Sodium 134 L (137-145) mmol/L BUN 22 H (7-17) mg/dL Glucose 346 H (74-99) mg/dL POC Glucose (mg/dL) 324 H (75-99) mg/dL HDL Cholesterol 68 H (40-60) mg/dL 06/29/20 06/29/20 Range/Units 03:38 06:52 APTT 41.1 H (22.0-30.0) sec Sodium (137-145) mmol/L BUN (7-17) mg/dL Glucose (74-99) mg/dL POC Glucose (mg/dL) 185 H (75-99) mg/dL HDL Cholesterol (40-60) mg/dL Thrombosis Risk Factor Assmnt - DVT/VTE Prophylaxis DVT/VTE Prophylaxis: Pharmacologic Prophylaxis ordered - Choose All That Apply Each Factor Represents 1 point: Age 41-60 years, Obesity (BMI >25) Each Risk Factor Represents 3 Points: History of DVT/PE Thrombosis Risk Factor Assessment Total Risk Factor Score: 5 Thrombosis Risk Factor Assessment Level: High Risk Assessment and Plan Assessment: Chest pain. Ruled out ACS. Coronary artery disease with recent history of stent placement to PDA and history of multiple stent placement previously. History of coronary artery bypass graft Valvular heart disease with history of mitral valve replacement with bioprosthet ic valve. Hyperglycemia with uncontrolled diabetes type 2 Peripheral vascular disease Hypertension Hyperlipidemia Bipolar disorder Ongoing nicotine addiction DVT prophylaxis with heparin subcu Plan: Patient will be continued on telemetry monitoring. Continue with dual antiplatelet therapy. Continue with pain management and heparin infusion has been discontinued. Cardiology has seen the patient and no evidence of acute ischemia noted and recommended medical management at this time. Continue the home medications and insulin dose titration. Time with Patient: Greater than 30
[2020-06-29] MEDS: QUEtiapine 50 MG TAB PO SCH (22:19)
[2020-06-29] MEDS: ARIPiprazole 5 MG TAB PO SCH (22:20)
[2020-06-29] MEDS: MIRTAZAPINE 45 MG TABLET PO SCH (22:20)
[2020-06-29] MEDS: SODIUM CHLORIDE 0.9% 1,000 ML IV SCH (22:29)
[2020-06-29] MEDS: SPIRONOLACTONE 25 MG TAB PO SCH (22:37)
[2020-06-30] MEDS: hydrOXYzine pamoate 25 MG CAP PO SCH ×2 (01:02→08:00)
[2020-06-30] MEDS: CYCLOBENZAPRINE 10 MG TAB PO SCH ×2 (01:03→08:00)
[2020-06-30] MEDS: HEPARIN SODIUM,PORCINE 5,000 UNIT/ML 1 ML VIAL SQ SCH ×2 (02:45→07:59)
[2020-06-30 06:26] LABS: Glucose,Whole Blood 119 mg/dL (75-99)
[2020-06-30] MEDS: LEVOTHYROXINE 88 MCG TAB PO SCH (06:27)
[2020-06-30] MEDS: INSULIN DETEMIR (LEVEMIR) 100 UNIT/ML SYR SQ SCH (06:27)
[2020-06-30] MEDS: HYDROcodone/APAP 5-325MG 1 EACH TAB PO PRN (06:31)
[2020-06-30] MEDS: INSULIN ASPART (NovoLOG) 100 UNIT/ML VIAL SQ SCH ×2 (07:55→12:36)
[2020-06-30] MEDS: ATORVASTATIN 80 MG TAB PO SCH (08:00)
[2020-06-30] MEDS: CALCIUM CARBONATE 500 MG CHEWABLE PO SCH (08:00)
[2020-06-30] MEDS: RANOLAZINE 500 MG TAB.ER.12H PO SCH (08:00)
[2020-06-30] MEDS: FOLIC ACID 1 MG TAB PO SCH (08:00)
[2020-06-30] MEDS: TICAGRELOR 90 MG TAB PO SCH (08:00)
[2020-06-30] MEDS: ASPIRIN 81 MG PO SCH (08:00)
[2020-06-30] MEDS: METOPROLOL TARTRATE 25 MG TAB PO SCH (08:01)
[2020-06-30] MEDS: levETIRAcetam 500 MG TAB PO SCH (08:01)
[2020-06-30] MEDS: FERROUS SULFATE 325 MG TAB PO SCH (08:01)
[2020-06-30] MEDS: SERTRALINE 50 MG TAB PO SCH (08:01)
[2020-06-30] MEDS: POTASSIUM CHLORIDE ER 20 MEQ TAB.ER PO SCH (08:01)
[2020-06-30] MEDS: ISOSORBIDE MONONITRATE ER 30 MG TAB.ER.24H PO SCH (08:02)
[2020-06-30] MEDS: FUROSEMIDE 40 MG TAB PO SCH (08:02)
[2020-06-30 08:31] VITALS: BP 100/65; PULSE 72; TEMP 97.5
[2020-06-30 11:59] LABS: Glucose,Whole Blood 202 mg/dL (75-99)
[2020-06-30] MEDS: LOPERAMIDE 2 MG CAP PO PRN (13:02)
== END 2020-06-30 14:22 | disposition home or self-care (01) ==
LOC: EC 17:52 → 1SOBS 20:54
PROVIDERS: ADMIT Internal Medicine; ATTEND Internal Medicine
DX: R07.89 Other chest pain (principal); I25.10 Atherosclerotic heart disease of native coronary artery without angina pectoris; I48.91 Unspecified atrial fibrillation; E11.65 Type 2 diabetes mellitus with hyperglycemia; E78.5 Hyperlipidemia, unspecified; F31.9 Bipolar disorder, unspecified; F17.200 Nicotine dependence, unspecified, uncomplicated; I73.9 Peripheral vascular disease, unspecified; E66.9 Obesity, unspecified; I07.9 Rheumatic tricuspid valve disease, unspecified; Z79.899 Other long term (current) drug therapy; Z79.82 Long term (current) use of aspirin; Z79.4 Long term (current) use of insulin; Z79.890 Hormone replacement therapy; Z79.02 Long term (current) use of antithrombotics/antiplatelets; Z88.8 Allergy status to other drugs, medicaments and biological substances; Z87.39 Personal history of other diseases of the musculoskeletal system and connective tissue; Z98.890 Other specified postprocedural states; Z95.1 Presence of aortocoronary bypass graft; Z95.5 Presence of coronary angioplasty implant and graft; Z95.820 Peripheral vascular angioplasty status with implants and grafts; Z91.013 Allergy to seafood; Z68.27 Body mass index [BMI] 27.0-27.9, adult; Z86.718 Personal history of other venous thrombosis and embolism; Z86.711 Personal history of pulmonary embolism; Z95.3 Presence of xenogenic heart valve; Z82.49 Family history of ischemic heart disease and other diseases of the circulatory system
CPT/HCPCS: 93005 ×3; 96366 ×2; 96372; 96376 ×2; 96365; 96375; 99285; 36415; 83880; 80061; 80053; 83690; 83735; 84484; 85025; 85610; 85730 ×2; 71046; G0378 ×3; J2270; J1644 ×3; J2405 ×2; J1170

== ENCOUNTER 2020-07-06 17:09 | Inpatient (IN) | payer MEDICARE, OTHER ==
[2020-07-06] MEDS ORDERED: SODIUM CHLORIDE 0.9% 500 ML 500 ML IV STA (17:30)
[2020-07-06] MEDS ORDERED: MORPHINE SULFATE 2 MG/ML SYRINGE IVP STA (17:30)
--- NOTE | 2020-07-06 17:44 | ED ---
Chest Pain HPI - General Source: patient Mode of arrival: ambulatory Limitations: no limitations <Marysol Brink - Last Filed: 07/06/20 18:39> <Camille Perrin - Last Filed: 07/06/20 22:20> - General Chief Complaint: Chest Pain Stated Complaint: Chest Pain Time Seen by Provider: 07/06/20 17:20 - History of Present Illness Initial Comments: Patient is a 54-year-old female, with recent heart stent placement, presenting to emergency Department with complaints of chest pain that began at approximately 8 AM this morning, 8 hours ago. Patient states throughout the morning she has took a total of atrial as well as 82 baby aspirins. Patient states it has not helped her pain so she decided to come into the ER. Patient had a stent placed in the PDA branch of the right coronary artery 11 days ago. Patient states she has been recovering well until today. She describes the pain as substernal, left-sided, currently 8/10 even though she seems to be in no acute distress. Patient denied any previous fever or chills but did arrive to the ER today febrile to 100.6. She denies any cough, shortness of breath, abdominal pain. She does state that she has been urinating more frequently and does have some dysuria so she does have concerns for possible UTI. She denies any nausea or vomiting. She has no further complaints at this time. (Marysol Brink) - Related Data Home Medications Medication Instructions Recorded Confirmed ARIPiprazole [Abilify] 5 mg PO HS 05/21/20 07/06/20 Aspirin 81 mg PO DAILY 05/21/20 07/06/20 Atorvastatin [Lipitor] 80 mg PO DAILY 05/21/20 07/06/20 Calcium Carbonate [Calcium] 600 mg PO DAILY 05/21/20 07/06/20 Cyclobenzaprine [Flexeril] 10 mg PO TID 05/21/20 07/06/20 Ferrous Sulfate [Iron (65 MG 325 mg PO BID 05/21/20 07/06/20 Elemental)] Folic Acid 1 mg PO DAILY 05/21/20 07/06/20 Furosemide [Lasix] 40 mg PO DAILY 05/21/20 07/06/20 INSULIN ASPART (NovoLOG) [NovoLOG See Protocol SQ ACHS 05/21/20 07/06/20 (formulary)] Insulin Glargine,Hum.rec.anlog 28 unit SQ BID 05/21/20 07/06/20 [Lantus Solostar] Isosorbide Mononitrate ER [Imdur] 30 mg PO DAILY 05/21/20 07/06/20 Levothyroxine Sodium [Synthroid] 175 mcg PO DAILY 05/21/20 07/06/20 Metoprolol Tartrate [Lopressor] 25 mg PO BID 05/21/20 07/06/20 Mirtazapine [Remeron] 45 mg PO HS 05/21/20 07/06/20 Potassium Chloride ER [K-Dur 20] 20 meq PO DAILY 05/21/20 07/06/20 QUEtiapine [SEROquel] 50 mg PO HS 05/21/20 07/06/20 Ranolazine [Ranexa] 1,000 mg PO BID 05/21/20 07/06/20 Sertraline [Zoloft] 50 mg PO DAILY 05/21/20 07/06/20 Spironolactone 25 mg PO HS 05/21/20 07/06/20 hydrOXYzine pamoate [Vistaril] 25 mg PO TID 05/21/20 07/06/20 levETIRAcetam [Keppra] 500 mg PO BID 05/21/20 07/06/20 lisinopriL [Zestril] 2.5 mg PO DAILY 05/21/20 07/06/20 Loperamide [Imodium] 2 mg PO QID PRN 06/08/20 07/06/20 HYDROcodone/APAP 5-325MG [[place] 1 tab PO TID PRN 07/06/20 07/06/20 5-325] Previous Rx's Medication Instructions Recorded Nitroglycerin Sl Tabs [Nitrostat] 0.4 mg SUBLINGUAL Q5M PRN 90 Days 06/27/20 #100 tab Ticagrelor [Brilinta] 90 mg PO BID tab 06/27/20 Allergies Allergy/AdvReac Type Severity Reaction Status Date / Time gabapentin Allergy Anaphylaxis Verified 07/06/20 17:53 shellfish derived [Crab] Allergy Rash/Hives Verified 07/06/20 17:53 Review of Systems ROS Other: All systems not noted in ROS Statement are negative. <Marysol Brink - Last Filed: 07/06/20 18:39> ROS Other: All systems not noted in ROS Statement are negative. <Camille Perrin - Last Filed: 07/06/20 22:20> ROS Statement: Those systems with pertinent positive or pertinent negative responses have been documented in the HPI. EKG Findings - EKG Comments: EKG Findings:: Normal sinus rhythm, left axis deviation, no signs of acute process. Similar to. His EKG on 06/25/2020. Ventricular rate 83, SC interval 168, QTC 408. <Marysol Brink - Last Filed: 07/06/20 18:39> Past Medical History Past Medical History: Coronary Artery Disease (CAD), Chest Pain / Angina, Diabetes Mellitus, Hyperlipidemia, Hypertension, Musculoskeletal Disorder History of Any Multi-Drug Resistant Organisms: None Reported Past Surgical History: Bladder Surgery, Coronary Bypass/CABG, Heart Catheterization, Heart Catheterization With Stent Additional Past Surgical History / Comment(s): CABG in 2013, Mitral valve on 2016, Heart Stent, bilateral leg stent Past Anesthesia/Blood Transfusion Reactions: No Reported Reaction Past Psychological History: Bipolar Smoking Status: Current every day smoker Past Alcohol Use History: None Reported Past Drug Use History: None Reported - Past Family History Father Additional Family Medical History / Comment(s): heart disease <Marysol Brink - Last Filed: 07/06/20 18:39> General Exam Limitations: no limitations <Marysol Brink - Last Filed: 07/06/20 18:39> - General Exam Comments Initial Comments: GENERAL: Patient is well-developed and well-nourished. Patient is nontoxic and in no acute distress. HEAD: Atraumatic, normocephalic. EYES: Pupils equal round and reactive to light, extraocular movements intact, sclera anicteric, conjunctiva are normal. Eyelids were unremarkable. ENT: TMs normal, nares patent, oropharynx clear without exudates. Moist mucous membranes. NECK: Normal range of motion, supple without lymphadenopathy or JVD. LUNGS: Unlabored respirations. Breath sounds clear to auscultation bilaterally and equal. No wheezes rales or rhonchi. HEART: Regular rate and rhythm without murmurs, rubs or gallops. ABDOMEN: Mild suprapubic discomfort with palpation. Soft, nontender, normoactive bowel sounds. No guarding, no rebound. No masses appreciated. : Deferred MUSCULOSKELETAL: Normal extremities with adequate strength and normal range of motion, no pitting or edema. No clubbing or cyanosis. NEUROLOGICAL: Patient is alert and oriented x 3. Motor and sensory are also intact. Cranial nerves II through XII grossly intact. Symmetrical smile. Normal speech, normal gait. PSYCH: Normal mood, normal affect. SKIN: Warm, Dry, normal turgor, no rashes or lesions noted. (Marysol Brink) Course <Marysol Brink - Last Filed: 07/06/20 18:39> Vital Signs 07/06/20 07/06/20 07/06/20 17:11 18:59 20:12 Temperature 100.6 F H 98.6 F Pulse Rate 84 75 Respiratory 18 18 Rate Blood Pressure 146/48 142/78 O2 Sat by Pulse 98 98 Oximetry 07/06/20 21:10 Temperature 98.4 F Pulse Rate 82 Respiratory 16 Rate Blood Pressure 135/68 O2 Sat by Pulse Oximetry - Reevaluation(s) Reevaluation #1: 07/06/20 18:39 Patient is a hard stick, awaiting ultrasound guided IV. Patient was signed out to Dr. Perrin at 6:39 PM (Marysol Brink) Chest Pain MDM <Camille Perrin - Last Filed: 07/06/20 22:20> - MDM Patient was signed out to me. She did require ultrasound guidance IV placement. She was given 4 mg of morphine and Tylenol for her fever. Laboratory studies were obtained. White count normal at 6.3. Coronavirus not ejected. Urinalysis is negative for infection. Troponin is less than 0.012. Chest x-ray was performed which demonstrates no active cardiopulmonary disease. I discussed results with the patient. Vitals are obtained and the patient longer has a f ever. I did recommend hospitalization in order to trend her troponins have cardio evaluate her. Patient agreed to this. I spoke with Dr. Aguilar who agreed to admit the patient. She was then taken to the floor in stable condition (Camille Perrin) Disposition <Marysol Brink - Last Filed: 07/06/20 18:39> Is patient prescribed a controlled substance at d/c from ED?: No Decision to Admit Reason: Admit from EC Decision Date: 07/06/20 Decision Time: 20:44 <Camille Perrin - Last Filed: 07/06/20 22:20> Clinical Impression: Chest pain, Pyrexia Disposition: ADMITTED IP TO THIS HOSP Condition: Stable
[2020-07-06] MEDS ORDERED: ACETAMINOPHEN TAB 500 MG TAB PO STA (18:10)
[2020-07-06 18:25] LABS: Appearance,Urine Clear (Clear); Bilirubin,Urine Negative (Negative); Blood,Urine Negative (Negative); Color,Urine Light Yellow; Glucose,Urine (UA) 4+ (Negative); Ketones,Urine Negative (Negative); Leukocyte Esterase,Urine Negative (Negative); Nitrite,Urine Negative (Negative); Protein,Urine 1+ (Negative); RBC,Urine <1 /hpf (0-5); Specific Gravity,Urine 1.027 (1.001-1.035); Squamous Epithelial Cell,Urine 1 /hpf (0-4); Urobilinogen,Urine <2.0 mg/dL (<2.0); WBC,Urine 1 /hpf (0-5)
--- NOTE | 2020-07-06 19:09 | XR ---
EXAMINATION TYPE: XR chest 2V DATE OF EXAM: 07/06/2020 COMPARISON: 06/28/2020 HISTORY: Chest pain TECHNIQUE: 2 views FINDINGS: Heart is normal. Lungs are clear of consolidation. There are no hilar masses. There are nikki rnal wires. There is cardiac valve surgery. There is no pleural effusion. IMPRESSION: No active cardiopulmonary disease. Normal heart. No change.
[2020-07-06 19:53] LABS: Basophils # (A) 0.1 k/uL (0-0.2); Basophils % (A) 1 %; Eosinophils # (A) 0.1 k/uL (0-0.7); Eosinophils % (A) 2 %; HCT 36.9 % (34.0-46.0); HGB 12.3 gm/dL (11.4-16.0); Lymphocytes # (A) 1.8 k/uL (1.0-4.8); Lymphocytes % (A) 29 %; MCH 30.9 pg (25.0-35.0); MCHC 33.3 g/dL (31.0-37.0); MCV 92.8 fL (80.0-100.0); Mean Platelet Volume 7.1; Monocytes # (A) 0.2 k/uL (0-1.0); Monocytes % (A) 4 %; Neutrophils % (A) 63 %; Platelet Count 302 k/uL (150-450); RBC 3.98 m/uL (3.80-5.40); RDW 14.4 % (11.5-15.5); WBC 6.3 k/uL (3.8-10.6)
[2020-07-06] MEDS ORDERED: MORPHINE SULFATE 4 MG/ML SYRINGE IVP STA (19:53)
[2020-07-06] MEDS ORDERED: ONDANSETRON 4 MG/2 ML VIAL IVP STA (20:06)
[2020-07-06 20:10] LABS: ALT 20 U/L (4-34); AST 19 U/L (14-36); African American GFR (CKD) >90 (>60 ml/min/1.73 sqM); Albumin 4.2 g/dL (3.5-5.0); Alkaline Phosphatase 101 U/L (38-126); Anion Gap 5 mmol/L; Blood Urea Nitrogen 12 mg/dL (7-17); Calcium 9.1 mg/dL (8.4-10.2); Carbon Dioxide 23 mmol/L (22-30); Chloride 106 mmol/L (98-107); Glucose 364 mg/dL (74-99); Magnesium 1.8 mg/dL (1.6-2.3); Non-African American GFR(CKD) >90 (>60 ml/min/1.73 sqM); Potassium 4.3 mmol/L (3.5-5.1); Sodium 134 mmol/L (137-145); Total Bilirubin 0.4 mg/dL (0.2-1.3)
[2020-07-06] MEDS ORDERED: NALOXONE 0.4 MG/ML 1 ML VIAL IV PRN (20:44)
[2020-07-06] MEDS ORDERED: INSULIN DETEMIR (LEVEMIR) 100 UNIT/ML SYR SQ SCH (21:00)
[2020-07-06] MEDS: hydrOXYzine pamoate 25 MG CAP PO SCH (22:18)
[2020-07-06] MEDS: ARIPiprazole 5 MG TAB PO SCH (22:18)
[2020-07-06] MEDS: FERROUS SULFATE 325 MG TAB PO SCH (22:18)
[2020-07-06] MEDS: CYCLOBENZAPRINE 10 MG TAB PO SCH (22:18)
[2020-07-06] MEDS: SPIRONOLACTONE 25 MG TAB PO SCH (22:18)
[2020-07-06] MEDS: ONDANSETRON 4 MG/2 ML VIAL IVP PRN (22:18)
[2020-07-06] MEDS: METOPROLOL TARTRATE 25 MG TAB PO SCH (22:19)
[2020-07-06] MEDS: QUEtiapine 50 MG TAB PO SCH (22:19)
[2020-07-06] MEDS: RANOLAZINE 500 MG TAB.ER.12H PO SCH (22:19)
[2020-07-06] MEDS: levETIRAcetam 500 MG TAB PO SCH (22:19)
[2020-07-06] MEDS: MIRTAZAPINE 45 MG TABLET PO SCH (22:19)
[2020-07-06 22:29] LABS: Glucose,Whole Blood 350 mg/dL (75-99)
[2020-07-06] MEDS: TICAGRELOR 90 MG TAB PO SCH (23:49)
[2020-07-07] MEDS: MORPHINE SULFATE 4 MG/ML SYRINGE IV PRN ×2 (00:02→04:54)
[2020-07-07] MEDS: LEVOTHYROXINE 75 MCG TAB PO SCH (05:58)
[2020-07-07] MEDS: LEVOTHYROXINE 100 MCG TAB PO SCH (05:58)
[2020-07-07 07:08] LABS: Glucose,Whole Blood 295 mg/dL (75-99)
[2020-07-07 08:02] LABS: Basophils % (A) 1 %; Eosinophils # (A) 0.1 k/uL (0-0.7); Eosinophils % (A) 2 %; HCT 35.3 % (34.0-46.0); HGB 11.4 gm/dL (11.4-16.0); Lymphocytes # (A) 1.3 k/uL (1.0-4.8); Lymphocytes % (A) 31 %; MCH 30.2 pg (25.0-35.0); MCHC 32.2 g/dL (31.0-37.0); MCV 93.6 fL (80.0-100.0); Monocytes # (A) 0.2 k/uL (0-1.0); Monocytes % (A) 5 %; Neutrophils # (A) 2.5 k/uL (1.3-7.7); Neutrophils % (A) 60 %; Platelet Count 257 k/uL (150-450); RBC 3.78 m/uL (3.80-5.40); RDW 14.3 % (11.5-15.5); WBC 4.1 k/uL (3.8-10.6)
[2020-07-07 08:11] LABS: African American GFR (CKD) >90 (>60 ml/min/1.73 sqM); Anion Gap 5 mmol/L; Blood Urea Nitrogen 13 mg/dL (7-17); Calcium 8.8 mg/dL (8.4-10.2); Carbon Dioxide 23 mmol/L (22-30); Chloride 108 mmol/L (98-107); Glucose 323 mg/dL (74-99); Non-African American GFR(CKD) >90 (>60 ml/min/1.73 sqM); Potassium 4.2 mmol/L (3.5-5.1); Sodium 136 mmol/L (137-145)
[2020-07-07] MEDS: MORPHINE SULFATE 2 MG/ML SYRINGE IV PRN ×4 (09:01→21:42)
[2020-07-07] MEDS: levETIRAcetam 500 MG TAB PO SCH ×2 (09:04→21:42)
[2020-07-07] MEDS: ASPIRIN 81 MG PO SCH (09:04)
[2020-07-07] MEDS: METOPROLOL TARTRATE 25 MG TAB PO SCH ×2 (09:04→21:41)
[2020-07-07] MEDS: ISOSORBIDE MONONITRATE ER 30 MG TAB.ER.24H PO SCH (09:04)
[2020-07-07] MEDS: INSULIN DETEMIR (LEVEMIR) 100 UNIT/ML SYR SQ SCH ×2 (09:04→21:42)
--- NOTE | 2020-07-07 09:08 | CONS ---
CONSULTATION This is a 54-year-old lady with diabetes mellitus, hypertension, hyperlipidemia, CAD with recent stenting of PDA branch of RCA by Dr. Murillo that was performed on the of this month. She went home and came back complaining of discomfort in the chest. Pain is very focal left anterior chest, lasted more than 6 hours. Quality of pain is very atypical, musculoskeletal. Three sets of troponins are normal. She is resting comfortably. EKG is unremarkable. It appears that we are dealing with atypical chest pain in a patient with significant risk factor with recent cardiac cath with a considerable contrast load in the last 2 weeks. She does not have any renal dysfunction, however. Two sets of troponins are normal. She is resting comfortably. Her symptoms have resolved. She is taking her medicines regularly including dual antiplatelet therapy. Please refer to the detailed note by Dr. Murillo from August 26. This lady also had a dobutamine echo on May 24, which did not reveal any significant abnormalities, but subsequent cardiac cath revealed there was a PDA branch lesion of RCA and this was addressed. The patient's other comorbid conditions include type 2 diabetes, hypertension, hyperlipidemia. She also has some diabetes related neuropathy. MEDICATIONS: Medications at home include Brilinta 90 mg b.i.d., lisinopril 2.5 mg daily, Imdur 30 mg daily, levothyroxine 135 mcg daily, metoprolol tartrate 25 mg b.i.d., Aldactone 25 mg daily, atorvastatin 80 mg daily. PHYSICAL EXAMINATION: On examination, blood pressure is 120/70, pulse rate 64 per minute, regular. HEENT: Unremarkable. Fundus was not examined by me. NECK: Supple. There is no JVD. I do not hear a carotid bruit. HEART: Exam reveals S1, S2 heard normally. There is no significant rub, murmur or gallop. LUNGS: Are clear. ABDOMEN: Is soft, nontender. LOWER EXTREMITIES: Reveal normal pulses. No edema. CENTRAL NERVOUS SYSTEM: Grossly no focal deficits but I did not do a detailed exam. IMPRESSION: 1. Atypical chest pain in a patient with known coronary artery disease. 2. History of coronary artery disease with stenting of PDA branch of right coronary artery 2 weeks ago. 3. Type 2 diabetes. 4. Hypertension. 5. Hyperlipidemia. RECOMMENDATIONS: From a cardiac standpoint, no intervention necessary. Patient can be discharged and see Dr. Murillo in 2 weeks. Her pain is atypical. Troponins are negative and recent cardiac cath revealed diffuse disease, but the significant lesion in the PDA branch of RCA was stented with excellent result. MMODL / IJN: [id number] /
[2020-07-07] MEDS: TICAGRELOR 90 MG TAB PO SCH (09:12)
[2020-07-07] MEDS: hydrOXYzine pamoate 25 MG CAP PO SCH ×2 (09:13→15:48)
[2020-07-07] MEDS: SERTRALINE 50 MG TAB PO SCH (09:13)
[2020-07-07] MEDS: INSULIN ASPART (NovoLOG) 100 UNIT/ML VIAL SQ SCH ×4 (09:15→21:31)
[2020-07-07] MEDS: FERROUS SULFATE 325 MG TAB PO SCH ×2 (09:22→21:41)
[2020-07-07] MEDS: CALCIUM CARBONATE 500 MG CHEWABLE PO SCH (09:22)
[2020-07-07] MEDS: FUROSEMIDE 40 MG TAB PO SCH (09:22)
[2020-07-07] MEDS: POTASSIUM CHLORIDE ER 20 MEQ TAB.ER PO SCH (09:22)
[2020-07-07] MEDS: FOLIC ACID 1 MG TAB PO SCH (09:22)
[2020-07-07] MEDS: RANOLAZINE 500 MG TAB.ER.12H PO SCH ×2 (09:22→21:41)
[2020-07-07] MEDS: CYCLOBENZAPRINE 10 MG TAB PO SCH ×2 (09:22→15:48)
[2020-07-07] MEDS: ATORVASTATIN 80 MG TAB PO SCH (09:22)
[2020-07-07 11:31] LABS: Glucose,Whole Blood 368 mg/dL (75-99)
[2020-07-07] MEDS ORDERED: INSULIN ASPART (NovoLOG) 100 UNIT/ML VIAL SQ SCH (12:30)
[2020-07-07 12:35] LABS: Amylase 32 U/L (30-110); Lipase 26 U/L (23-300)
[2020-07-07 16:39] LABS: Glucose,Whole Blood 89 mg/dL (75-99)
[2020-07-07 16:47] LABS: Glucose,Whole Blood 93 mg/dL (75-99)
[2020-07-07] MEDS ORDERED: DICYCLOMINE 10 MG CAP PO PRN (17:07)
--- NOTE | 2020-07-07 18:36 | P.HPIM ---
History of Present Illness H&P Date: 07/07/20 Chief Complaint: Chest pain Aminta Sheikh, is a 54-year-old female who presented to [facility] emergency room with a chief complaint of chest pain. Patient was recently admitted to [facility] was an episode of chest pain bout 2 weeks ago at that time she had cardiac catheterization with angioplasty and stent placement patient was stable and was discharged home he returns again with chest pain at this time. Patient was evaluated in the emergency room, vital examination on presentation reveals a temperature of 100.6 pulse 84 respir ation 18 blood pressure 146/48 pulse ox 98% on room air her laboratory data revealed a white blood count of 6.3 hemoglobin 12.3 platelet count 30 to sodium 134 potassium 4.3 BUN 12 creatinine 0.72 first troponin level was less than 0.012 BNP was 728 her EKG revealed normal sinus rhythm with left axis deviation otherwise no acute abnormality chest x-ray did not reveal any evidence of acute cardiopulmonary disease, patient was admitted to the observation unit cardiology consultation was requested. Past Medical History Past Medical History: Coronary Artery Disease (CAD), Chest Pain / Angina, Diabetes Mellitus, Hyperlipidemia, Hypertension, Musculoskeletal Disorder History of Any Multi-Drug Resistant Organisms: None Reported Past Surgical History: Bladder Surgery, Coronary Bypass/CABG, Heart Catheteriza tion, Heart Catheterization With Stent Additional Past Surgical History / Comment(s): CABG in 2013, Mitral valve on 2016, Heart Stent, bilateral leg stent Past Anesthesia/Blood Transfusion Reactions: No Reported Reaction Date of Last Stent Placement:: 06/25/20 Past Psychological History: Bipolar Smoking Status: Current every day smoker Past Alcohol Use History: None Reported Past Drug Use History: None Reported - Past Family History Father Additional Family Medical History / Comment(s): heart disease Medications and Allergies Home Medications Medication Instructions Recorded Confirmed Type ARIPiprazole [Abilify] 5 mg PO HS 05/21/20 07/06/20 History Aspirin 81 mg PO DAILY 05/21/20 07/06/20 History Atorvastatin [Lipitor] 80 mg PO DAILY 05/21/20 07/06/20 History Calcium Carbonate [Calcium] 600 mg PO DAILY 05/21/20 07/06/20 History Cyclobenzaprine [Flexeril] 10 mg PO TID 05/21/20 07/06/20 History Ferrous Sulfate [Iron (65 MG 325 mg PO BID 05/21/20 07/06/20 History Elemental)] Folic Acid 1 mg PO DAILY 05/21/20 07/06/20 History Furosemide [Lasix] 40 mg PO DAILY 05/21/20 07/06/20 History INSULIN ASPART (NovoLOG) [NovoLOG See Protocol SQ ACHS 05/21/20 07/06/20 History (formulary)] Insulin Glargine,Hum.rec.anlog 28 unit SQ BID 05/21/20 07/06/20 History [Lantus Solostar] Isosorbide Mononitrate ER [Imdur] 30 mg PO DAILY 05/21/20 07/06/20 History Levothyroxine Sodium [Synthroid] 175 mcg PO DAILY 05/21/20 07/06/20 History Metoprolol Tartrate [Lopressor] 25 mg PO BID 05/21/20 07/06/20 History Mirtazapine [Remeron] 45 mg PO HS 05/21/20 07/06/20 History Potassium Chloride ER [K-Dur 20] 20 meq PO DAILY 05/21/20 07/06/20 History QUEtiapine [SEROquel] 50 mg PO HS 05/21/20 07/06/20 History Ranolazine [Ranexa] 1,000 mg PO BID 05/21/20 07/06/20 History Sertraline [Zoloft] 50 mg PO DAILY 05/21/20 07/06/20 History Spironolactone 25 mg PO HS 05/21/20 07/06/20 History hydrOXYzine pamoate [Vistaril] 25 mg PO TID 05/21/20 07/06/20 History levETIRAcetam [Keppra] 500 mg PO BID 05/21/20 07/06/20 History lisinopriL [Zestril] 2.5 mg PO DAILY 05/21/20 07/06/20 History Loperamide [Imodium] 2 mg PO QID PRN 06/08/20 07/06/20 History Nitroglycerin Sl Tabs [Nitrostat] 0.4 mg SUBLINGUAL Q5M PRN 90 Days 06/27/20 07/06/20 Rx #100 tab Ticagrelor [Brilinta] 90 mg PO BID tab 06/27/20 07/06/20 Rx HYDROcodone/APAP 5-325MG [[place] 1 tab PO TID PRN 07/06/20 07/06/20 History 5-325] Allergies Allergy/AdvReac Type Severity Reaction Status Date / Time gabapentin Allergy Anaphylaxis Verified 07/06/20 17:53 shellfish derived [Crab] Allergy Rash/Hives Verified 07/06/20 17:53 Physical Exam Vitals: Vital Signs Temp Pulse Pulse Resp BP BP Pulse Ox 07/07/20 08:31 97.5 F L 64 16 126/78 100 07/07/20 03:00 63 14 106/64 97 07/06/20 22:41 92 15 07/06/20 21:29 97.8 F 92 15 129/79 100 07/06/20 21:10 98.4 F 82 16 135/68 07/06/20 20:12 98.6 F 07/06/20 18:59 75 18 142/78 98 07/06/20 17:11 100.6 F H 84 18 146/48 98 Intake and Output 07/06/20 07/07/20 07/07/20 22:59 06:59 14:59 Intake Total 240 Balance 240 Intake: Oral 240 Other: Voiding Method Toilet # Voids 1 Weight 74.843 kg In general patient is alert and oriented 3 in no apparent distress HEENT head normocephalic and atraumatic Neck is supple no JVD no goiter no lymphadenopathy Chest exam reveals a few scattered crackles no wheezing Cardiac exam reveals regular heart sounds no gallops no murmurs Abdomen is soft with mild diffuse tenderness mostly in the epigastric area no organomegaly with normal bowel sounds Extremity exam reveals no edema no cyanosis or clubbing Neurological examination reveals no gross focal deficit Results CBC & Chem 7: 07/07/20 07:38 07/07/20 07:38 Labs: Abnormal Lab Results - Last 24 Hours (Table) 07/06/20 07/06/20 07/06/20 Range/Units 18:18 19:46 22:27 RBC (3.80-5.40) m/uL Sodium 134 L (137-145) mmol/L Chloride (98-107) mmol/L Glucose 364 H (74-99) mg/dL POC Glucose (mg/dL) 350 H (75-99) mg/dL Urine Protein 1+ H (Negative) Urine Glucose (UA) 4+ H (Negative) 07/07/20 07/07/20 07/07/20 Range/Units 07:06 07:38 07:38 RBC 3.78 L (3.80-5.40) m/uL Sodium 136 L (137-145) mmol/L Chloride 108 H (98-107) mmol/L Glucose 323 H (74-99) mg/dL POC Glucose (mg/dL) 295 H (75-99) mg/dL Urine Protein (Negative) Urine Glucose (UA) (Negative) Thrombosis Risk Factor Assmnt - Choose All That Apply Each Factor Represents 1 point: Abnormal pulmonary function (COPD), Age 41-60 years, Obesity (BMI >25) Thrombosis Risk Factor Assessment Total Risk Factor Score: 3 Thrombosis Risk Factor Assessment Level: Moderate Risk Assessment and Plan Plan: 1. New episodes of chest pain in a 54-year-old female was multiple cardiac risk factors including known history of coronary artery disease with recent admission was chest pain and stent placement 2 weeks ago shouldn't is admitted to telemetry floor cardiology consultation was requested 2. Underlying history of hypertension 3. Underlying history of hyperlipidemia 4. Underlying history of diabetes mellitus 5. Underlying history of seizure disorder 6. Underlying history of hypothyroidism 7. Underlying history of depression maintained on Remeron Home medications reviewed and reordered patient is maintained on Brillinta 90 mg bid, and [facility] are following Will follow closely
--- NOTE | 2020-07-07 18:38 | P.PN ---
Subjective Progress Note Date: 07/07/20 Aminta Sheikh, is a 54-year-old female who presented to [facility] emergency room with a chief complaint of chest pain. Patient was recently admitted to [facility] was an episode of chest pain bout 2 weeks ago at that time she had cardiac catheterization with angioplasty and stent placement patient was stable and was discharged home he returns again with chest pain at this time. Patient was evaluated in the emergency room, vital examination on presentation reveals a temperature of 100.6 pulse 84 respiration 18 blood pressure 146/48 pulse ox 98% on room air her laboratory data revealed a white blood count of 6.3 hemoglobin 12.3 platelet count 30 to sodium 134 potassium 4.3 BUN 12 creatinine 0.72 first troponin level was less than 0.012 BNP was 728 her EKG revealed normal sinus rhythm with left axis deviation otherwise no acute abnormality chest x-ray did not reveal any evidence of acute cardiopulmonary disease, patient was admitted to the observation unit cardiology consultation was requested. On 07/07/2020 patient was seen and examined again in the early afternoon she was cleared by cardiology for discharge however she is still complaining of chest pain she is also complaining of epigastric pain at this time will check amylase and lipase will check abdomen ultrasound will continue to follow closely Objective - Vital Signs Vital signs: Vital Signs Temp 97.9 F 07/07/20 14:55 Pulse 74 07/07/20 14:55 Resp 16 07/07/20 15:00 BP 133/73 07/07/20 14:55 Pulse Ox 98 07/07/20 14:55 Intake & Output 07/06/20 07/07/20 07/07/20 18:59 06:59 18:59 Intake Total 240 440 Balance 240 440 Weight 74.843 kg 74.843 kg Intake: Oral 240 440 Other: Voiding Method Toilet Toilet # Voids 1 1 # Bowel Movements 3 - Exam In general patient is alert and oriented 3 in no apparent distress HEENT head normocephalic and atraumatic Neck is supple no JVD no goiter no lymphadenopathy Chest exam reveals a few scattered crackles no wheezing Cardiac exam reveals regular heart sounds no gallops no murmurs Abdomen is soft with mild diffuse tenderness mostly in the epigastric area no organomegaly with normal bowel sounds Extremity exam reveals no edema no cyanosis or clubbing Neurological examination reveals no gross focal deficit - Labs CBC & Chem 7: 07/07/20 07:38 07/07/20 07:38 Labs: Abnormal Lab Results - Last 24 Hours (Table) 07/06/20 07/06/20 07/06/20 Range/Units 18:18 19:46 22:27 RBC (3.80-5.40) m/uL Sodium 134 L (137-145) mmol/L Chloride (98-107) mmol/L Glucose 364 H (74-99) mg/dL POC Glucose (mg/dL) 350 H (75-99) mg/dL Urine Protein 1+ H (Negative) Urine Glucose (UA) 4+ H (Negative) 07/07/20 07/07/20 07/07/20 Range/Units 07:06 07:38 07:38 RBC 3.78 L (3.80-5.40) m/uL Sodium 136 L (137-145) mmol/L Chloride 108 H (98-107) mmol/L Glucose 323 H (74-99) mg/dL POC Glucose (mg/dL) 295 H (75-99) mg/dL Urine Protein (Negative) Urine Glucose (UA) (Negative) 07/07/20 Range/Units 11:29 RBC (3.80-5.40) m/uL Sodium (137-145) mmol/L Chloride (98-107) mmol/L Glucose (74-99) mg/dL POC Glucose (mg/dL) 368 H (75-99) mg/dL Urine Protein (Negative) Urine Glucose (UA) (Negative) Assessment and Plan Plan: 1. New episodes of chest pain in a 54-year-old female was multiple cardiac risk factors including known history of coronary artery disease with recent admission was chest pain and stent placement 2 weeks ago shouldn't is admitted to telemetry floor cardiology consultation was requested 2. Underlying history of hypertension 3. Underlying history of hyperlipidemia 4. Underlying history of diabetes mellitus 5. Underlying history of seizure disorder 6. Underlying history of hypothyroidism 7. Underlying history of depression maintained on Remeron Home medications reviewed and reordered patient is maintained on Brillinta 90 mg bid, and [facility] are following Will follow closely
--- NOTE | 2020-07-07 20:23 | US ---
EXAMINATION TYPE: US abdomen complete DATE OF EXAM: 07/07/2020 COMPARISON: NONE CLINICAL HISTORY: epigastric pain. Epigastric pain x 2 days. Hx cholecystectomy at age 27, appendecto my and surgery on intestine per patient at age 13. EXAM MEASUREMENTS: Liver Length: 14.7 cm Gallbladder Wall: Cholecystectomy CBD: 0.49 cm Spleen: 9.9 cm Right Kidney: 11.1 x 4.7 x 4.7 cm Left Kidney: 10.0 x 4.3 x 5.5 cm Pancreas: No abnormalities seen. Limited visibility of tail. Liver: No abnormalities seen. Gallbladder: Cholecystectomy. Evidence for sonographic Shin's sign: No CBD: Appears wnl Spleen: Appears wnl Right Kidney: Appears wnl Left Kidney: Appears wnl. Images taken prone. Upper IVC: No abnormalities seen at this time. Abd Aorta: No abnormalities seen at this time. Iliac arteries not visualized. IMPRESSION: Cholecystectomy. No dilated ducts. Negative complete abdominal sonogram.
[2020-07-07 20:28] LABS: Glucose,Whole Blood 114 mg/dL (75-99)
[2020-07-07] MEDS: MIRTAZAPINE 45 MG TABLET PO SCH (21:41)
[2020-07-07] MEDS: SPIRONOLACTONE 25 MG TAB PO SCH (21:41)
[2020-07-07] MEDS: QUEtiapine 50 MG TAB PO SCH (21:42)
[2020-07-08] MEDS: CYCLOBENZAPRINE 10 MG TAB PO SCH ×4 (00:31→22:34)
[2020-07-08] MEDS: ARIPiprazole 5 MG TAB PO SCH ×2 (00:31→20:37)
[2020-07-08] MEDS: hydrOXYzine pamoate 25 MG CAP PO SCH ×4 (02:06→22:33)
[2020-07-08] MEDS: TICAGRELOR 90 MG TAB PO SCH ×3 (02:07→20:41)
[2020-07-08] MEDS: LEVOTHYROXINE 75 MCG TAB PO SCH (06:09)
[2020-07-08] MEDS: LEVOTHYROXINE 100 MCG TAB PO SCH (06:10)
[2020-07-08] MEDS: MORPHINE SULFATE 2 MG/ML SYRINGE IV PRN ×4 (06:51→20:41)
[2020-07-08] MEDS: INSULIN ASPART (NovoLOG) 100 UNIT/ML VIAL SQ SCH ×4 (06:59→20:38)
[2020-07-08] MEDS: ASPIRIN 81 MG PO SCH (08:37)
[2020-07-08] MEDS: FERROUS SULFATE 325 MG TAB PO SCH ×2 (08:38→20:38)
[2020-07-08] MEDS: RANOLAZINE 500 MG TAB.ER.12H PO SCH ×2 (08:38→20:40)
[2020-07-08] MEDS: METOPROLOL TARTRATE 25 MG TAB PO SCH (08:38)
[2020-07-08] MEDS: CALCIUM CARBONATE 500 MG CHEWABLE PO SCH (08:38)
[2020-07-08] MEDS: FOLIC ACID 1 MG TAB PO SCH (08:38)
[2020-07-08] MEDS: ATORVASTATIN 80 MG TAB PO SCH (08:38)
[2020-07-08] MEDS: FUROSEMIDE 40 MG TAB PO SCH (08:38)
[2020-07-08] MEDS: levETIRAcetam 500 MG TAB PO SCH ×2 (08:38→20:39)
[2020-07-08] MEDS: ISOSORBIDE MONONITRATE ER 30 MG TAB.ER.24H PO SCH (08:41)
[2020-07-08] MEDS: POTASSIUM CHLORIDE ER 20 MEQ TAB.ER PO SCH (08:41)
[2020-07-08] MEDS: SERTRALINE 50 MG TAB PO SCH (08:42)
[2020-07-08] MEDS: INSULIN DETEMIR (LEVEMIR) 100 UNIT/ML SYR SQ SCH ×2 (10:05→20:39)
--- NOTE | 2020-07-08 11:59 | P.PN ---
Subjective This is a pleasant 64 years old female with multiple medical problems as below including coronary artery disease, diabetes mellitus, hypertension, h yperlipidemia, status post CABG and stent placement. She is a patient of Dr. Leone. She presents because of chest pain of 2 days' prior to come to the hospital, the pain is in the lower central chest and below left breast about 8/10 in severity, felt like tightness, radiating to the left arm, with no much coughing or dyspnea. Also she is complaining of from left leg pain are below her left knee and the cuff for 2 days duration with no leg swelling or warmth or redness. Patient already has been evaluated by event sales representative and cleared her for discharge However Her yesterday because she has abdominal pain. Patient states that she has lower abdominal pain for 3-4 days, felt like mild, non-radiated, associated with blood per rectum 2 days ago, she noticed some blood when she wiped. Patient states that she has recently had colonoscopy about 4 months ago also for blood per rectum. However patient vitals and hemoglobin are stable and normal with Hb is 11.4. Also she is on aspirin and brilinta, we will add Protonix for GI prophylaxis She is diabetic and this morning she was hypoglycemic. her glucose was 62 this morning after juice went up to 114. She is on Levemir 28 units twice a day, we will lower it to 25 units twice a day Review of systems CONSTITUTIONAL: No fever, no malaise, no fatigue. HEENT: No recent visual problems or hearing problems. Denied any sore throat. CARDIOVASCULAR: No orthopnea, PND, no palpitations, no syncope. PULMONARY: No shortness of breath, no cough, no hemoptysis. GASTROINTESTINAL: No diarrhea, no nausea, no vomiting, no abdominal pain. Normoactive bowel sounds. NEUROLOGICAL: No headaches, no weakness, no numbness. Active Medications Generic Name Dose Route Start Last Admin Trade Name Freq PRN Reason Stop Dose Admin Aripiprazole 5 mg 07/06/20 21:00 07/08/20 00:31 Aripiprazole 5 Mg Tab PO 5 mg HS CAROLYN Administration Aspirin 81 mg 07/07/20 09:00 07/08/20 08:37 Aspirin 81 Mg PO 81 mg DAILY CAROLYN Administration Atorvastatin Calcium 80 mg 07/07/20 09:00 12/24/20 08:38 Atorvastatin 80 Mg Tab PO 80 mg DAILY CAROLYN Administration Calcium Carbonate/Glycine 500 mg 07/07/20 09:00 07/08/20 08:38 Calcium Carbonate 500 Mg Chewable PO 500 mg DAILY CAROLYN Administration Cyclobenzaprine HCl 10 mg 07/06/20 22:00 07/08/20 08:37 Cyclobenzaprine 10 Mg Tab PO 10 mg TID CAROLYN Administration Dicyclomine HCl 10 mg 07/07/20 17:07 07/08/20 10:46 Dicyclomine 10 Mg Cap PO 10 mg TID PRN Administration Dyspepsia Ferrous Sulfate 325 mg 07/06/20 21:00 07/08/20 08:38 Ferrous Sulfate 325 Mg Tab PO 325 mg BID CAROLYN Administration Folic Acid 1 mg 07/07/20 09:00 07/08/20 08:38 Folic Acid 1 Mg Tab PO 1 mg DAILY CAROLYN Administration Furosemide 40 mg 07/07/20 09:00 07/08/20 08:38 Furosemide 40 Mg Tab PO 40 mg DAILY CAROLYN Administration Hydroxyzine Pamoate 25 mg 07/06/20 22:00 07/08/20 08:41 Hydroxyzine Pamoate 25 Mg Cap PO 25 mg TID CAROLYN Administration Insulin Aspart 0 unit 07/07/20 09:12 07/08/20 06:59 Insulin Aspart (Novolog) 100 Unit/Ml Vial SQ Not Given [facility] Protocol Insulin Detemir 25 unit 07/08/20 21:00 Insulin Detemir (Levemir) 100 Unit/Ml Syr SQ BID [facility] Isosorbide Mononitrate 30 mg 07/07/20 09:00 07/08/20 08:41 Isosorbide Mononitrate Er 30 Mg Tab.Er.24h PO 30 mg DAILY CAROLYN Administration Levetiracetam 500 mg 07/06/20 21:00 07/08/20 08:38 Levetiracetam 500 Mg Tab PO 500 mg BID CAROLYN Administration Levothyroxine Sodium 100 mcg 07/07/20 06:30 07/08/20 06:10 Levothyroxine 100 Mcg Tab PO 100 mcg DAILY@0630 CAROLYN Administration Levothyroxine Sodium 75 mcg 07/07/20 06:30 07/08/20 06:09 Levothyroxine 75 Mcg Tab PO 75 mcg DAILY@0630 [facility] Administration Lisinopril 2.5 mg 07/07/20 09:00 07/07/20 12:35 Lisinopril 2.5 Mg Tab PO 2.5 mg DAILY CAROLYN Administration Metoprolol Tartrate 25 mg 07/06/20 21:00 07/08/20 08:38 Metoprolol Tartrate 25 Mg Tab PO 25 mg BID CAROLYN Administration Mirtazapine 45 mg 07/06/20 21:00 07/07/20 21:41 Mirtazapine 45 Mg Tablet PO 45 mg HS CAROLYN Administration Morphine Sulfate 1 mg 07/07/20 07:51 07/08/20 06:51 Morphine Sulfate 2 Mg/Ml Syringe IV 1 mg Q3H PRN Administration Severe Pain Naloxone HCl 0.2 mg 07/06/20 20:44 Naloxone 0.4 Mg/Ml 1 Ml Vial IV Q2M PRN Opioid Reversal Ondansetron HCl 4 mg 07/06/20 20:44 07/06/20 22:18 Ondansetron 4 Mg/2 Ml Vial IVP 4 mg Q8HR PRN Administration Nausea And Vomiting Pantoprazole Sodium 40 mg 07/08/20 12:00 Pantoprazole 40 Mg/10 Ml Vial IVP DAILY CAROLYN Potassium Chloride 20 meq 07/07/20 09:00 07/08/20 08:41 Potassium Chloride Er 20 Meq Tab.Er PO 20 meq DAILY CAROLYN Administration Quetiapine Fumarate 50 mg 07/06/20 21:00 07/07/20 21:42 Quetiapine 50 Mg Tab PO 50 mg HS CAROLYN Administration Ranolazine 1,000 mg 07/06/20 21:00 07/08/20 08:38 Ranolazine 500 Mg Tab.Er.12h PO 1,000 mg BID CAROLYN Administration Sertraline HCl 50 mg 07/07/20 09:00 07/08/20 08:42 Sertraline 50 Mg Tab PO 50 mg DAILY CAROLYN Administration Spironolactone 25 mg 07/06/20 21:00 07/07/20 21:41 Spironolactone 25 Mg Tab PO 25 mg HS CAROLYN Administration Ticagrelor 90 mg 07/06/20 21:00 07/08/20 08:42 Ticagrelor 90 Mg Tab PO 90 mg BID CAROLYN Administration Objective - Vital Signs Vital signs: Vital Signs Temp 98.2 F 07/08/20 08:03 Pulse 80 07/08/20 08:03 Resp 16 07/08/20 09:00 BP 108/72 07/08/20 08:03 Pulse Ox 98 07/08/20 08:03 Intake & Output 07/07/20 07/08/20 07/08/20 18:59 06:59 18:59 Intake Total 440 240 Balance 440 240 Intake: Oral 440 240 Other: Voiding Method Toilet Toilet # Voids 1 1 # Bowel Movements 3 - Exam GENERAL: The patient is alert and oriented x3, not in any acute distress. Well developed, well nourished. HEENT: Pupils are round and equally reacting to light. EOMI. No scleral icterus. No conjunctival pallor. Normocephalic, atraumatic. No pharyngeal erythema. No thyromegaly. CARDIOVASCULAR: S1 and S2 present. No murmurs, rubs, or gallops. PULMONARY: Chest is clear to auscultation, no wheezing or crackles. -ABDOMEN: Soft, nontender, mild lower abdominal tenderness, no rebound tenderness or guarding, normoactive bowel sounds. No palpable organomegaly. MUSCULOSKELETAL: No joint swelling or deformity. EXTREMITIES: No cyanosis, clubbing, or pedal edema. NEUROLOGICAL: Gross neurological examination did not reveal any focal deficits. SKIN: No rashes. no petechiae. - Labs CBC & Chem 7: 07/07/20 07:38 07/07/20 07:38 Labs: Abnormal Lab Results - Last 24 Hours (Table) 07/07/20 Range/Units 20:26 POC Glucose (mg/dL) 114 H (75-99) mg/dL Microbiology - Last 24 Hours (Table) 07/07/20 07:38 Blood Culture - Preliminary Blood No Growth after 24 hours Assessment and Plan Assessment: Chest pain, cardiac causes ruled out. We will check d-dimer Left leg pain. Check ultrasound of the lower extremity to rule out DVT Lower abdominal pain with history of blood per rectum, mild. Hemoglobin is normal. Consult GI. Diabetes mellitus, with hypoglycemia Hypertension Hypothyroidism Hyperlipidemia History of seizure, continue with same seizure medication Plan: this is a pleasant 53 years old female who presents with chest pain, also has abdominal pain and possible multiple rectum. Also she has leg pain. We will check d-dimer to rule out PE. Check ultrasound of the lower extremity to rule out DVT. Consult GI team and checked occult blood in the stool Labs and medication were reviewed.. Continue same treatment. Continue with symptomatic treatment. Resume home medication. Monitor lytes and vitals. DVT and GI prophylaxis. Further recommendationsas per clinical course of the patient DVT prophylaxis: Subcutaneous heparin GI Prophylaxis: Ppi Prognosis is guarded
[2020-07-08] MEDS: PANTOPRAZOLE 40 MG/10 ML VIAL IVP SCH (12:21)
[2020-07-08] MEDS: DEXTROSE 5%-0.9% NACL 1,000 ML IV SCH (13:28)
[2020-07-08 13:37] LABS: Calcium 9.1 mg/dL (8.4-10.2); Potassium 4.7 mmol/L (3.5-5.1)
--- NOTE | 2020-07-08 17:24 | US ---
EXAMINATION TYPE: US venous doppler duplex LE BI DATE OF EXAM: 07/08/2020 11:59 AM COMPARISON: NONE CLINICAL HISTORY: Rule out DVT. PVOD with bilateral SHARITA stenting; CAD with stenting; patient denies l eg swelling, only leg pain bilaterally; Diabetic x 45 years SIDE PERFORMED: Bilateral TECHNIQUE: The lower extremity deep venous system is examined utilizing real time linear array sonog zeferino with graded compression, doppler sonography and color-flow sonography. VESSELS IMAGED: Common Femoral Vein Deep Femoral Vein Greater Saphenous Vein * Femoral Vein Popliteal Vein Small Saphenous Vein * Proximal Calf Veins (* superficial vessels) Right Leg: Negative for DVT Left Leg: Negative for DVT Bilateral groin lymph nodes are seen: right groin node = 4.0 x 1.2x 0.6cm and left groin lymph node = 3.1 x 1.2 x 0.7cm. IMPRESSION: No evidence of deep vein thrombosis in both legs. Inguinal lymph nodes are demonstrated.
--- NOTE | 2020-07-08 18:04 | NM ---
EXAM: NM Lung Perfusion and Ventilation Scan CLINICAL HISTORY: ITS.REASON NM Reason: r/o PE TECHNIQUE: Nuclear Medicine ventilation and perfusion images of the lungs were obtained in multiple projections following radiopharmaceutical inhalation followed by injection of Tc99m MAA. COMPARISON: Chest radiograph on 07/06/2020 FINDINGS: Ventilation: Unremarkable. No ventilation defects. Perfusion: Unremarkable. No perfusion defects. IMPRESSION: No findings to suggest pulmonary embolism.
[2020-07-08] MEDS: MIRTAZAPINE 45 MG TABLET PO SCH (20:40)
[2020-07-08] MEDS: QUEtiapine 50 MG TAB PO SCH (20:40)
[2020-07-08] MEDS: METOPROLOL TARTRATE 12.5 MG TAB PO SCH (20:40)
[2020-07-08] MEDS: SPIRONOLACTONE 25 MG TAB PO SCH (20:41)
[2020-07-08] MEDS: ONDANSETRON 4 MG/2 ML VIAL IVP PRN (21:08)
[2020-07-09] MEDS: DEXTROSE 5%-0.9% NACL 1,000 ML IV SCH ×3 (01:49→20:37)
[2020-07-09] MEDS: MORPHINE SULFATE 2 MG/ML SYRINGE IV PRN ×2 (03:04→11:03)
[2020-07-09 06:16] LABS: Basophils % (A) 1 %; Eosinophils # (A) 0.1 k/uL (0-0.7); Eosinophils % (A) 2 %; HCT 34.8 % (34.0-46.0); HGB 11.6 gm/dL (11.4-16.0); Lymphocytes # (A) 1.1 k/uL (1.0-4.8); Lymphocytes % (A) 23 %; MCH 30.9 pg (25.0-35.0); MCHC 33.2 g/dL (31.0-37.0); MCV 93.1 fL (80.0-100.0); Mean Platelet Volume 6.8; Monocytes # (A) 0.2 k/uL (0-1.0); Monocytes % (A) 4 %; Neutrophils # (A) 3.3 k/uL (1.3-7.7); Neutrophils % (A) 68 %; Platelet Count 266 k/uL (150-450); RBC 3.74 m/uL (3.80-5.40); RDW 14.8 % (11.5-15.5); WBC 4.8 k/uL (3.8-10.6)
[2020-07-09 06:25] LABS: Calcium 8.6 mg/dL (8.4-10.2); Potassium 4.3 mmol/L (3.5-5.1)
[2020-07-09] MEDS: LEVOTHYROXINE 100 MCG TAB PO SCH (06:37)
[2020-07-09] MEDS: LEVOTHYROXINE 75 MCG TAB PO SCH (06:38)
[2020-07-09] MEDS: INSULIN ASPART (NovoLOG) 100 UNIT/ML VIAL SQ SCH ×4 (06:41→20:50)
[2020-07-09] MEDS: CALCIUM CARBONATE 500 MG CHEWABLE PO SCH (09:16)
[2020-07-09] MEDS: ATORVASTATIN 80 MG TAB PO SCH (09:16)
[2020-07-09] MEDS: RANOLAZINE 500 MG TAB.ER.12H PO SCH ×2 (09:16→20:39)
[2020-07-09] MEDS: METOPROLOL TARTRATE 12.5 MG TAB PO SCH ×2 (09:16→20:38)
[2020-07-09] MEDS: levETIRAcetam 500 MG TAB PO SCH ×2 (09:16→20:39)
[2020-07-09] MEDS: ASPIRIN 81 MG PO SCH (09:16)
[2020-07-09] MEDS: ISOSORBIDE MONONITRATE ER 30 MG TAB.ER.24H PO SCH (09:16)
[2020-07-09] MEDS: CYCLOBENZAPRINE 10 MG TAB PO SCH ×3 (09:19→20:38)
[2020-07-09] MEDS: FERROUS SULFATE 325 MG TAB PO SCH ×2 (09:19→20:37)
[2020-07-09] MEDS: POTASSIUM CHLORIDE ER 20 MEQ TAB.ER PO SCH (09:19)
[2020-07-09] MEDS: PANTOPRAZOLE 40 MG/10 ML VIAL IVP SCH (09:19)
[2020-07-09] MEDS: INSULIN DETEMIR (LEVEMIR) 100 UNIT/ML SYR SQ SCH ×2 (09:19→20:40)
[2020-07-09] MEDS: FOLIC ACID 1 MG TAB PO SCH (09:19)
[2020-07-09] MEDS: hydrOXYzine pamoate 25 MG CAP PO SCH ×3 (09:20→20:38)
[2020-07-09] MEDS: TICAGRELOR 90 MG TAB PO SCH ×2 (09:21→20:39)
[2020-07-09] MEDS: SERTRALINE 50 MG TAB PO SCH (09:21)
[2020-07-09] MEDS ORDERED: SODIUM CHLORIDE 0.9% 500 ML 500 ML IV ONE ×2 (11:40→23:11)
--- NOTE | 2020-07-09 12:23 | P.PN ---
Subjective This is a pleasant 64 years old female with multiple medical problems as below including coronary artery disease, diabetes mellitus, hypertension, h yperlipidemia, status post CABG and stent placement. She is a patient of Dr. Leone. She presents because of chest pain of 2 days' prior to come to the hospital, the pain is in the lower central chest and below left breast about 8/10 in severity, felt like tightness, radiating to the left arm, with no much coughing or dyspnea. Also she is complaining of from left leg pain are below her left knee and the cuff for 2 days duration with no leg swelling or warmth or redness. Patient already has been evaluated by supervisor fabrication and assembly and cleared her for discharge However Her yesterday because she has abdominal pain. Patient states that she has lower abdominal pain for 3-4 days, felt like mild, non-radiated, associated with blood per rectum 2 days ago, she noticed some blood when she wiped. Patient states that she has recently had colonoscopy about 4 months ago also for blood per rectum. However patient vitals and hemoglobin are stable and normal with Hb is 11.4. Also she is on aspirin and brilinta, we will add Protonix for GI prophylaxis She is diabetic and this morning she was hypoglycemic. her glucose was 62 this morning after juice went up to 114. She is on Levemir 28 units twice a day, we will lower it to 25 units twice a day 07/09/2020 Patient presents with chest pain and she got kicked by supervisor fabrication and assembly. Yesterday her d-dimer was elevated, CTA of the chest was not done because her creatinine was trending up from 0.7 TO 1.0, ventilation/perfusion scan was done and it was low probability for PE. Ultrasound of the lower extremities negative for DVT however shows bilateral groin lymph nodes. Also she was started on D5 normal sinus at 100 mL per hour Also patient is complaining of from lower abdominal pain, abdominal ultrasound was negative. Today she still have same chest pain and lower abdominal pain which looks mild to moderate, we'll switch morphine 10 [place] and patient agrees Her creatinine is trending up to 1.2. Continue with D5 normal saline at 100 mL per hour, yesterday we lowered her metoprolol from 25 down to 12.5 mg, today we were holding her lisinopril and Aldactone and monitor her creatinine Consult oncology team for her lymphadenopathy Review of systems CONSTITUTIONAL: No fever, no malaise, no fatigue. HEENT: No recent visual problems or hearing problems. Denied any sore throat. CARDIOVASCULAR: No orthopnea, PND, no palpitations, no syncope. PULMONARY: No shortness of breath, no cough, no hemoptysis. GASTROINTESTINAL: No diarrhea, no nausea, no vomiting, no abdominal pain. Normoactive bowel sounds. NEUROLOGICAL: No headaches, no weakness, no numbness. Active Medications Generic Name Dose Route Start Last Admin Trade Name Freq PRN Reason Stop Dose Admin Aripiprazole 5 mg 07/06/20 21:00 07/08/20 20:37 Aripiprazole 5 Mg Tab PO 5 mg HS CAROLYN Administration Aspirin 81 mg 07/07/20 09:00 07/09/20 09:16 Aspirin 81 Mg PO 81 mg DAILY CAROLYN Administration Atorvastatin Calcium 80 mg 07/07/20 09:00 07/09/20 09:16 Atorvastatin 80 Mg Tab PO 80 mg DAILY CAROLYN Administration Calcium Carbonate/Glycine 500 mg 07/07/20 09:00 07/09/20 09:16 Calcium Carbonate 500 Mg Chewable PO 500 mg DAILY CAROLYN Administration Cyclobenzaprine HCl 10 mg 07/06/20 22:00 07/09/20 09:19 Cyclobenzaprine 10 Mg Tab PO 10 mg TID CAROLYN Administration Dicyclomine HCl 10 mg 07/07/20 17:07 07/08/20 10:46 Dicyclomine 10 Mg Cap PO 10 mg TID PRN Administration Dyspepsia Ferrous Sulfate 325 mg 07/06/20 21:00 07/09/20 09:19 Ferrous Sulfate 325 Mg Tab PO 325 mg BID CAROLYN Administration Folic Acid 1 mg 07/07/20 09:00 07/09/20 09:19 Folic Acid 1 Mg Tab PO 1 mg DAILY CAROLYN Administration Hydroxyzine Pamoate 25 mg 07/06/20 22:00 07/09/20 09:20 Hydroxyzine Pamoate 25 Mg Cap PO 25 mg TID CAROLYN Administration Dextrose/Sodium Chloride 1,000 mls @ 100 mls/hr 07/08/20 13:30 07/09/20 01:49 Dextrose 5%-Ns Iv Soln IV 100 mls/hr .Q10H CAROLYN Administration Sodium Chloride 500 mls @ 999 mls/hr 07/09/20 11:40 07/09/20 11:56 Saline 0.9% IV 07/09/20 12:10 999 mls/hr .Q31M ONE Administration Insulin Aspart 0 unit 07/07/20 09:12 07/09/20 06:41 Insulin Aspart (Novolog) 100 Unit/Ml Vial SQ 3 unit ACHS CAROLYN Administration Protocol Insulin Detemir 25 unit 07/08/20 21:00 07/09/20 09:19 Insulin Detemir (Levemir) 100 Unit/Ml Syr SQ 25 unit BID CAROLYN Administration Isosorbide Mononitrate 30 mg 07/07/20 09:00 07/09/20 09:16 Isosorbide Mononitrate Er 30 Mg Tab.Er.24h PO 30 mg DAILY CAROLYN Administration Levetiracetam 500 mg 07/06/20 21:00 07/09/20 09:16 Levetiracetam 500 Mg Tab PO 500 mg BID CAROLYN Administration Levothyroxine Sodium 100 mcg 07/07/20 06:30 07/09/20 06:37 Levothyroxine 100 Mcg Tab PO 100 mcg DAILY@0630 CAROLYN Administration Levothyroxine Sodium 75 mcg 07/07/20 06:30 07/09/20 06:38 Levothyroxine 75 Mcg Tab PO 75 mcg DAILY@0630 CAROLYN Administration Metoprolol Tartrate 12.5 mg 07/08/20 21:00 07/09/20 09:16 Metoprolol Tartrate 12.5 Mg Tab PO 12.5 mg BID CAROLYN Administration Mirtazapine 45 mg 07/06/20 21:00 07/08/20 20:40 Mirtazapine 45 Mg Tablet PO 45 mg HS [facility] Administration Morphine Sulfate 1 mg 07/07/20 07:51 07/09/20 11:03 Morphine Sulfate 2 Mg/Ml Syringe IV 1 mg Q3H PRN Administration Severe Pain Naloxone HCl 0.2 mg 07/06/20 20:44 Naloxone 0.4 Mg/Ml 1 Ml Vial IV Q2M PRN Opioid Reversal Ondansetron HCl 4 mg 07/06/20 20:44 07/08/20 21:08 Ondansetron 4 Mg/2 Ml Vial IVP 4 mg Q8HR PRN Administration Nausea And Vomiting Pantoprazole Sodium 40 mg 07/10/20 07:30 Pantoprazole 40 Mg Tablet PO AC-BRKFST [facility] Potassium Chloride 20 meq 07/07/20 09:00 07/09/20 09:19 Potassium Chloride Er 20 Meq Tab.Er PO 20 meq DAILY CAROLYN Administration Quetiapine Fumarate 50 mg 07/06/20 21:00 07/08/20 20:40 Quetiapine 50 Mg Tab PO 50 mg HS CAROLYN Administration Ranolazine 1,000 mg 07/06/20 21:00 07/09/20 09:16 Ranolazine 500 Mg Tab.Er.12h PO 1,000 mg BID CAROLYN Administration Sertraline HCl 50 mg 07/07/20 09:00 07/09/20 09:21 Sertraline 50 Mg Tab PO 50 mg DAILY CAROLYN Administration Spironolactone 25 mg 07/06/20 21:00 07/08/20 20:41 Spironolactone 25 Mg Tab PO 25 mg HS CAROLYN Administration Ticagrelor 90 mg 07/06/20 21:00 07/09/20 09:21 Ticagrelor 90 Mg Tab PO 90 mg BID CAROLYN Administration Objective - Vital Signs Vital signs: Vital Signs Temp 98.3 F 07/09/20 08:27 Pulse 72 07/09/20 08:27 Resp 16 07/09/20 08:27 BP 106/73 07/09/20 08:27 Pulse Ox 98 07/09/20 08:27 Intake & Output 07/08/20 07/09/20 07/09/20 18:59 06:59 18:59 Intake Total 690 150 Output Total 400 300 Balance 290 -150 Intake: IV 200 150 Dextrose 5%-0.9% NaCl 1, 200 150 000 ml @ 100 mls/hr IV . Q10H CAROLYN Rx#:[id number] Oral 490 Output: Urine 400 300 Other: Voiding Method Toilet Toilet Toilet # Voids 1 1 - Exam GENERAL: The patient is alert and oriented x3, not in any acute distress. Well developed, well nourished. HEENT: Pupils are round and equally reacting to light. EOMI. No scleral icterus. No conjunctival pallor. Normocephalic, atraumatic. No pharyngeal erythema. No thyromegaly. CARDIOVASCULAR: S1 and S2 present. No murmurs, rubs, or gallops. PULMONARY: Chest is clear to auscultation, no wheezing or crackles. -ABDOMEN: Soft, nontender, mild lower abdominal tenderness, no rebound tenderne ss or guarding, normoactive bowel sounds. No palpable organomegaly. MUSCULOSKELETAL: No joint swelling or deformity. EXTREMITIES: No cyanosis, clubbing, or pedal edema. NEUROLOGICAL: Gross neurological examination did not reveal any focal deficits. SKIN: No rashes. no petechiae. - Labs CBC & Chem 7: 07/09/20 05:57 07/09/20 05:57 Labs: Abnormal Lab Results - Last 24 Hours (Table) 07/08/20 07/08/20 07/09/20 Range/Units 12:14 13:18 05:57 RBC 3.74 L (3.80-5.40) m/uL D-Dimer 1.23 H (<0.60) mg/L FEU Sodium (137-145) mmol/L Chloride (98-107) mmol/L BUN 26 H (7-17) mg/dL Creatinine (0.52-1.04) mg/dL Glucose 145 H (74-99) mg/dL 07/09/20 Range/Units 05:57 RBC (3.80-5.40) m/uL D-Dimer (<0.60) mg/L FEU Sodium 135 L (137-145) mmol/L Chloride 108 H (98-107) mmol/L BUN 25 H (7-17) mg/dL Creatinine 1.22 H (0.52-1.04) mg/dL Glucose 196 H (74-99) mg/dL Microbiology - Last 24 Hours (Table) 07/07/20 07:38 Blood Culture - Preliminary Blood No Growth after 48 hours Assessment and Plan Assessment: Acute kidney injury Bilateral inguinal lymphadenopathy Chest pain, cardiac causes ruled out. Pulmonary causes ruled out. Could be musculoskeletal versus other Left leg pain. Resolved. No DVT PER Ultrasound Lower abdominal pain with history of blood per rectum, mild. Hemoglobin is normal. Diabetes mellitus, with hypoglycemia Hypertension Hypothyroidism Hyperlipidemia History of seizure, continue with same seizure medication Plan: this is a pleasant 53 years old female who presents with chest pain, abdominal pain . Also with inguinal lymphadenopathy and AK I. Continue with IV fluids. Hold lisinopril and Aldactone and/or dose of metoprolol and monitor creatinine consult oncology team for her lymphadenopathy Pain management Labs and medication were reviewed.. Continue same treatment. Continue with symptomatic treatment. Resume home medication. Monitor lytes and vitals. DVT and GI prophylaxis. Further recommendationsas per clinical course of the patient DVT prophylaxis: Subcutaneous heparin GI Prophylaxis: Ppi Prognosis is guarded
[2020-07-09] MEDS: HYDROcodone/APAP 5-325MG 1 EACH TAB PO PRN ×2 (16:05→20:50)
[2020-07-09] MEDS: HEPARIN SODIUM,PORCINE 5,000 UNIT/ML 1 ML VIAL SQ SCH ×2 (16:06→20:40)
[2020-07-09] MEDS: ARIPiprazole 5 MG TAB PO SCH (20:38)
[2020-07-09] MEDS: MIRTAZAPINE 45 MG TABLET PO SCH (20:39)
[2020-07-09] MEDS: QUEtiapine 50 MG TAB PO SCH (20:39)
--- NOTE | 2020-07-09 22:12 | P.CONS ---
History of Present Illness - Reason for Consult Consult date: 07/09/20 Inguinal LAD Requesting physician: Jerson Aguilar - Chief Complaint Chest pain - History of Present Illness Ms. Sheikh is a 54 yo female with multiple comorbidities as listed under [facility] who is here for chest pain. She was initially admitted for cardiology work up, and cleared by cardiology however had persistent CP and also abdominal pain associated with rectal bleeding. D-dimer was elevated, which prompted VTE work up with LE doppler and V/Q scan due to slowly rising Cr of unclear etiology. LE doppler was negative for DVT however revealed inguinal LAD. V/Q scan negative. CBC and BMP normal except for sloly risking Cr, 0.7 baseline, then 1, and now 1.2. No other associated complaints. Review of Systems All systems: negative Constitutional: Reports as per HPI Past Medical History Past Medical History: Coronary Artery Disease (CAD), Chest Pain / Angina, Diabetes Mellitus, Hyperlipidemia, Hypertension, Musculoskeletal Disorder History of Any Multi-Drug Resistant Organisms: None Reported Past Surgical History: Bladder Surgery, Coronary Bypass/CABG, Heart Catheterization, Heart Catheterization With Stent Additional Past Surgical History / Comment(s): CABG in 2013, Mitral valve on 2016, Heart Stent, bilateral leg stent Past Anesthesia/Blood Transfusion Reactions: No Reported Reaction Date of Last Stent Placement:: 06/25/20 Past Psychological History: Bipolar Smoking Status: Current every day smoker Past Alcohol Use History: None Reported Past Drug Use History: None Reported - Past Family History Father Additional Family Medical History / Comment(s): heart disease Medications and Allergies Home Medications Medication Instructions Recorded Confirmed Type ARIPiprazole [Abilify] 5 mg PO HS 05/21/20 07/06/20 History Aspirin 81 mg PO DAILY 05/21/20 07/06/20 History Atorvastatin [Lipitor] 80 mg PO DAILY 05/21/20 07/06/20 History Calcium Carbonate [Calcium] 600 mg PO DAILY 05/21/20 07/06/20 History Cyclobenzaprine [Flexeril] 10 mg PO TID 05/21/20 07/06/20 History Ferrous Sulfate [Iron (65 MG 325 mg PO BID 05/21/20 07/06/20 History Elemental)] Folic Acid 1 mg PO DAILY 05/21/20 07/06/20 History Furosemide [Lasix] 40 mg PO DAILY 05/21/20 07/06/20 History INSULIN ASPART (NovoLOG) [NovoLOG See Protocol SQ ACHS 05/21/20 07/06/20 History (formulary)] Insulin Glargine,Hum.rec.anlog 28 unit SQ BID 05/21/20 07/06/20 History [Lantus Solostar] Isosorbide Mononitrate ER [Imdur] 30 mg PO DAILY 05/21/20 07/06/20 History Levothyroxine Sodium [Synthroid] 175 mcg PO DAILY 05/21/20 07/06/20 History Metoprolol Tartrate [Lopressor] 25 mg PO BID 05/21/20 07/06/20 History Mirtazapine [Remeron] 45 mg PO HS 05/21/20 07/06/20 History Potassium Chloride ER [K-Dur 20] 20 meq PO DAILY 05/21/20 07/06/20 History QUEtiapine [SEROquel] 50 mg PO HS 05/21/20 07/06/20 History Ranolazine [Ranexa] 1,000 mg PO BID 05/21/20 07/06/20 History Sertraline [Zoloft] 50 mg PO DAILY 05/21/20 07/06/20 History Spironolactone 25 mg PO HS 05/21/20 07/06/20 History hydrOXYzine pamoate [Vistaril] 25 mg PO TID 05/21/20 07/06/20 History levETIRAcetam [Keppra] 500 mg PO BID 05/21/20 07/06/20 History lisinopriL [Zestril] 2.5 mg PO DAILY 05/21/20 07/06/20 History Loperamide [Imodium] 2 mg PO QID PRN 06/08/20 07/06/20 History Nitroglycerin Sl Tabs [Nitrostat] 0.4 mg SUBLINGUAL Q5M PRN 90 Days 06/27/20 07/06/20 Rx #100 tab Ticagrelor [Brilinta] 90 mg PO BID tab 06/27/20 07/06/20 Rx HYDROcodone/APAP 5-325MG [[place] 1 tab PO TID PRN 07/06/20 07/06/20 History 5-325] Allergies Allergy/AdvReac Type Severity Reaction Status Date / Time gabapentin Allergy Anaphylaxis Verified 07/06/20 17:53 shellfish derived [Crab] Allergy Rash/Hives Verified 07/06/20 17:53 Physical Exam Vitals: Vital Signs Temp Pulse Resp BP Pulse Ox 07/09/20 08:27 98.3 F 72 16 106/73 98 07/09/20 03:00 97.9 F 68 18 99/67 100 07/09/20 02:35 77 18 07/08/20 21:02 77 18 07/08/20 21:00 97.3 F L 77 18 122/77 98 Intake and Output 07/09/20 07/09/20 07/09/20 06:59 14:59 22:59 Intake Total 150 Output Total 300 Balance -150 Intake: IV 150 Dextrose 5%-0.9% NaCl 1, 150 000 ml @ 100 mls/hr IV . Q10H CAROLYN Rx#:[id number] Output: Urine 300 Other: Voiding Method Toilet Toilet # Voids 1 1 Due to concerns of COVID-19 detection/exposure and in an effort to limit health care provider exposure and transmission, parts of the encounter may have been obtained through chart review, family members, telephone/video visits, and/or discussion with primary team/nursing and ancillary staff. Results CBC & Chem 7: 07/09/20 05:57 07/09/20 05:57 Labs: Abnormal Lab Results - Last 24 Hours (Table) 07/09/20 07/09/20 Range/Units 05:57 05:57 RBC 3.74 L (3.80-5.40) m/uL Sodium 135 L (137-145) mmol/L Chloride 108 H (98-107) mmol/L BUN 25 H (7-17) mg/dL Creatinine 1.22 H (0.52-1.04) mg/dL Glucose 196 H (74-99) mg/dL Microbiology - Last 24 Hours (Table) 07/07/20 07:38 Blood Culture - Preliminary Blood No Growth after 48 hours Comments: V/Q scan negative for PE Chest x-ray: report reviewed US - abdomen: report reviewed Venous US: report reviewed Assessment and Plan Assessment: 1. Inguinal LAD 2. Chest pain 3. Abdominal pain 4. Rectal bleeding 5. YESY Plan: Ms. Sheikh is a 54 yo female with multiple comorbidities including cardiac disease on aspirin and brilinta, here for chest pain, negative cardiac work up. Course complicated by elevated D-dimer and abdominal pain, and work up including abd US was negative, V/Q scan negative, and LE doppler negative for DVT however showed bilateral inguinal LAD, 4cm on right and 3.1cm on left. No B symptoms. Unclear etiology at this time. She is complaining of rectal bleeding however Hgb is stable. Ideally would recommend CT CAP to assess for LAD elsewhere in her body however she is having slowly rising Cr and contrast would be needed to identify LAD clearly. Inguinal LAD is common however. Sug gest GI work up and will check LDH. If stable, would recommend addressing renal dysfunction and obtaining CT CAP with contrast once safe to do so. If pt otherwise ready for discharge further work up could also be pursued outpatient. Due to concerns of COVID-19 detection/exposure and in an effort to limit health care provider exposure and transmission, parts of the encounter may have been obtained through chart review, family members, telephone/video visits, and/or discussion with primary team/nursing and ancillary staff.
[2020-07-10] MEDS: HYDROcodone/APAP 5-325MG 1 EACH TAB PO PRN ×2 (02:16→17:43)
[2020-07-10] MEDS: DEXTROSE 5%-0.9% NACL 1,000 ML IV SCH (05:34)
[2020-07-10] MEDS: LEVOTHYROXINE 100 MCG TAB PO SCH (05:44)
[2020-07-10] MEDS: LEVOTHYROXINE 75 MCG TAB PO SCH (05:45)
[2020-07-10 06:54] LABS: Basophils % (A) 1 %; Eosinophils # (A) 0.1 k/uL (0-0.7); Eosinophils % (A) 2 %; HCT 35.9 % (34.0-46.0); HGB 11.6 gm/dL (11.4-16.0); Lymphocytes # (A) 1.1 k/uL (1.0-4.8); Lymphocytes % (A) 28 %; MCH 31.1 pg (25.0-35.0); MCHC 32.4 g/dL (31.0-37.0); MCV 95.8 fL (80.0-100.0); Mean Platelet Volume 6.8; Monocytes # (A) 0.2 k/uL (0-1.0); Monocytes % (A) 4 %; Neutrophils # (A) 2.5 k/uL (1.3-7.7); Neutrophils % (A) 63 %; Platelet Count 243 k/uL (150-450); RBC 3.74 m/uL (3.80-5.40); RDW 14.7 % (11.5-15.5); WBC 3.9 k/uL (3.8-10.6)
[2020-07-10] MEDS: POTASSIUM CHLORIDE ER 20 MEQ TAB.ER PO SCH (07:41)
[2020-07-10] MEDS: ASPIRIN 81 MG PO SCH (07:41)
[2020-07-10] MEDS: ATORVASTATIN 80 MG TAB PO SCH (07:41)
[2020-07-10] MEDS: CALCIUM CARBONATE 500 MG CHEWABLE PO SCH (07:41)
[2020-07-10] MEDS: ISOSORBIDE MONONITRATE ER 30 MG TAB.ER.24H PO SCH (07:41)
[2020-07-10] MEDS: CYCLOBENZAPRINE 10 MG TAB PO SCH ×3 (07:41→23:25)
[2020-07-10] MEDS: PANTOPRAZOLE 40 MG TABLET PO SCH (07:42)
[2020-07-10] MEDS: hydrOXYzine pamoate 25 MG CAP PO SCH ×3 (07:42→23:25)
[2020-07-10] MEDS: SERTRALINE 50 MG TAB PO SCH (07:42)
[2020-07-10] MEDS: FERROUS SULFATE 325 MG TAB PO SCH ×2 (07:42→19:51)
[2020-07-10] MEDS: FOLIC ACID 1 MG TAB PO SCH (07:42)
[2020-07-10] MEDS: HEPARIN SODIUM,PORCINE 5,000 UNIT/ML 1 ML VIAL SQ SCH ×2 (07:42→19:49)
[2020-07-10] MEDS: INSULIN ASPART (NovoLOG) 100 UNIT/ML VIAL SQ SCH ×4 (07:43→20:20)
[2020-07-10] MEDS: METOPROLOL TARTRATE 12.5 MG TAB PO SCH (07:44)
[2020-07-10] MEDS: RANOLAZINE 500 MG TAB.ER.12H PO SCH ×2 (07:44→19:51)
[2020-07-10] MEDS: TICAGRELOR 90 MG TAB PO SCH ×2 (07:44→19:49)
[2020-07-10] MEDS: levETIRAcetam 500 MG TAB PO SCH ×2 (07:45→19:51)
[2020-07-10] MEDS: INSULIN DETEMIR (LEVEMIR) 100 UNIT/ML SYR SQ SCH ×2 (07:47→20:21)
[2020-07-10 09:04] LABS: African American GFR (CKD) 66.4 (60.0-200.0); Anion Gap 5.6 mmol/L (4.00-12.00); BUN/Creat Ratio 21.82 Ratio (12.00-20.00); Calcium 8.5 mg/dL (8.7-10.3); Carbon Dioxide 23.4 mmol/L (21.6-31.8); Non-African American GFR(CKD) 57.3 (60.0-200.0); Potassium 4.5 mmol/L (3.5-5.5)
[2020-07-10] MEDS ORDERED: SODIUM CHLORIDE 0.9% 500 ML 500 ML IV ONE (09:32)
--- NOTE | 2020-07-10 11:55 | P.PN ---
Subjective This is a pleasant 64 years old female with multiple medical problems as below including coronary artery disease, diabetes mellitus, hypertension, h yperlipidemia, status post CABG and stent placement. She is a patient of Dr. Leone. She presents because of chest pain of 2 days' prior to come to the hospital, the pain is in the lower central chest and below left breast about 8/10 in severity, felt like tightness, radiating to the left arm, with no much coughing or dyspnea. Also she is complaining of from left leg pain are below her left knee and the cuff for 2 days duration with no leg swelling or warmth or redness. Patient already has been evaluated by metal cut off saw tender and cleared her for discharge However Her yesterday because she has abdominal pain. Patient states that she has lower abdominal pain for 3-4 days, felt like mild, non-radiated, associated with blood per rectum 2 days ago, she noticed some blood when she wiped. Patient states that she has recently had colonoscopy about 4 months ago also for blood per rectum. However patient vitals and hemoglobin are stable and normal with Hb is 11.4. Also she is on aspirin and brilinta, we will add Protonix for GI prophylaxis She is diabetic and this morning she was hypoglycemic. her glucose was 62 this morning after juice went up to 114. She is on Levemir 28 units twice a day, we will lower it to 25 units twice a day 07/09/2020 Patient presents with chest pain and she got kicked by metal cut off saw tender. Yesterday her d-dimer was elevated, CTA of the chest was not done because her creatinine was trending up from 0.7 TO 1.0, ventilation/perfusion scan was done and it was low probability for PE. Ultrasound of the lower extremities negative for DVT however shows bilateral groin lymph nodes. Also she was started on D5 normal sinus at 100 mL per hour Also patient is complaining of from lower abdominal pain, abdominal ultrasound was negative. Today she still have same chest pain and lower abdominal pain which looks mild to moderate, we'll switch morphine 10 [place] and patient agrees Her creatinine is trending up to 1.2. Continue with D5 normal saline at 100 mL per hour, yesterday we lowered her metoprolol from 25 down to 12.5 mg, today we were holding her lisinopril and Aldactone and monitor her creatinine Consult oncology team for her lymphadenopathy 07/10/2020 Patient is awake and alert, she still have same chest pain and abdominal pain with no new symptoms. She has bilateral inguinal lymphadenopathy and oncologist recommended CT of the chest, abdomen and pelvis with contrast, we held contrast CT now because of her elevated creatinine although it's trending down to 1.1 but is not to baseline yet, her blood pressure still low normal and her blood pressure medication were stopped including lisinopril, Aldactone and metoprolol and she is on IV fluids with boluses is provided Also today developed nonsustained V. tach, could be contributed to her stopping metoprolol. However we ordered EKG and cardiology team to be reconsulted Discussed with patient and staff to obtain occult blood in the stool however no need for blood transfusion as her hemoglobin is stable. Review of systems CONSTITUTIONAL: No fever, no malaise, no fatigue. HEENT: No recent visual problems or hearing problems. Denied any sore throat. CARDIOVASCULAR: No orthopnea, PND, no palpitations, no syncope. PULMONARY: No shortness of breath, no cough, no hemoptysis. GASTROINTESTINAL: No diarrhea, no nausea, no vomiting, no abdominal pain. Normoactive bowel sounds. NEUROLOGICAL: No headaches, no weakness, no numbness. Active Medications Generic Name Dose Route Start Last Admin Trade Name Freq PRN Reason Stop Dose Admin Hydrocodone Bitart/Acetaminophen 1 each 07/09/20 12:19 07/10/20 02:16 Hydrocodone/Apap 5-325mg 1 Each Tab PO 1 each Q6HR PRN Administration Pain Aripiprazole 5 mg 07/06/20 21:00 07/09/20 20:38 Aripiprazole 5 Mg Tab PO 5 mg HS [facility] Administration Aspirin 81 mg 07/07/20 09:00 07/10/20 07:41 Aspirin 81 Mg PO 81 mg DAILY [facility] Administration Atorvastatin Calcium 80 mg 07/07/20 09:00 07/10/20 07:41 Atorvastatin 80 Mg Tab PO 80 mg DAILY [facility] Administration Calcium Carbonate/Glycine 500 mg 07/07/20 09:00 07/10/20 07:41 Calcium Carbonate 500 Mg Chewable PO 500 mg DAILY [facility] Administration Cyclobenzaprine HCl 10 mg 07/06/20 22:00 07/10/20 07:41 Cyclobenzaprine 10 Mg Tab PO 10 mg TID [facility] Administration Dicyclomine HCl 10 mg 07/07/20 17:07 07/08/20 10:46 Dicyclomine 10 Mg Cap PO 10 mg TID PRN Administration Dyspepsia Ferrous Sulfate 325 mg 07/06/20 21:00 07/10/20 07:42 Ferrous Sulfate 325 Mg Tab PO 325 mg BID [facility] Administration Folic Acid 1 mg 07/07/20 09:00 07/10/20 07:42 Folic Acid 1 Mg Tab PO 1 mg DAILY [facility] Administration Heparin Sodium (Porcine) 5,000 unit 07/09/20 12:30 07/10/20 07:42 Heparin Sodium,Porcine 5,000 Unit/Ml 1 Ml Vial SQ Not Given Q12HR [facility] Hydroxyzine Pamoate 25 mg 07/06/20 22:00 07/10/20 07:42 Hydroxyzine Pamoate 25 Mg Cap PO Not Given TID [facility] Dextrose/Sodium Chloride 1,000 mls @ 100 mls/hr 07/08/20 13:30 07/10/20 05:34 Dextrose 5%-Ns Iv Soln IV Not Given .Q10H [facility] Insulin Aspart 0 unit 07/07/20 09:12 07/10/20 07:43 Insulin Aspart (Novolog) 100 Unit/Ml Vial SQ Not Given ACHS [facility] Protocol Insulin Detemir 25 unit 07/08/20 21:00 07/10/20 07:47 Insulin Detemir (Levemir) 100 Unit/Ml Syr SQ 25 unit BID [facility] Administration Isosorbide Mononitrate 30 mg 07/07/20 09:00 07/10/20 07:41 Isosorbide Mononitrate Er 30 Mg Tab.Er.24h PO 30 mg DAILY [facility] Administration Levetiracetam 500 mg 07/06/20 21:00 07/10/20 07:45 Levetiracetam 500 Mg Tab PO 500 mg BID [facility] Administration Levothyroxine Sodium 100 mcg 07/07/20 06:30 07/10/20 05:44 Levothyroxine 100 Mcg Tab PO 100 mcg DAILY@0630 [facility] Administration Levothyroxine Sodium 75 mcg 07/07/20 06:30 07/10/20 05:45 Levothyroxine 75 Mcg Tab PO 75 mcg DAILY@0630 [facility] Administration Metoprolol Tartrate 12.5 mg 07/08/20 21:00 07/10/20 07:44 Metoprolol Tartrate 12.5 Mg Tab PO Not Given BID [facility] Mirtazapine 45 mg 07/06/20 21:00 07/09/20 20:39 Mirtazapine 45 Mg Tablet PO 45 mg HS [facility] Administration Naloxone HCl 0.2 mg 07/06/20 20:44 Naloxone 0.4 Mg/Ml 1 Ml Vial IV Q2M PRN Opioid Reversal Ondansetron HCl 4 mg 07/06/20 20:44 07/08/20 21:08 Ondansetron 4 Mg/2 Ml Vial IVP 4 mg Q8HR PRN Administration Nausea And Vomiting Pantoprazole Sodium 40 mg 07/10/20 07:30 07/10/20 07:42 Pantoprazole 40 Mg Tablet PO 40 mg AC-[id number] [facility] Administration Potassium Chloride 20 meq 07/07/20 09:00 07/10/20 07:41 Potassium Chloride Er 20 Meq Tab.Er PO 20 meq DAILY [facility] Administration Quetiapine Fumarate 50 mg 07/06/20 21:00 07/09/20 20:39 Quetiapine 50 Mg Tab PO 50 mg HS [facility] Administration Ranolazine 1,000 mg 07/06/20 21:00 07/10/20 07:44 Ranolazine 500 Mg Tab.Er.12h PO 1,000 mg BID [facility] Administration Sertraline HCl 50 mg 07/07/20 09:00 07/10/20 07:42 Sertraline 50 Mg Tab PO 50 mg DAILY [facility] Administration Ticagrelor 90 mg 07/06/20 21:00 07/10/20 07:44 Ticagrelor 90 Mg Tab PO 90 mg BID [facility] Administration Objective - Vital Signs Vital signs: Vital Signs Temp 97.6 F 07/10/20 08:26 Pulse 67 07/10/20 11:26 Resp 16 07/10/20 08:26 BP 135/75 07/10/20 11:26 Pulse Ox 99 07/10/20 11:26 Intake & Output 07/09/20 07/10/20 07/10/20 18:59 06:59 18:59 Intake Total 150 1550 540 Output Total 300 Balance -150 1550 540 Intake: IV 150 Dextrose 5%-0.9% NaCl 1, 150 000 ml @ 100 mls/hr IV . Q10H [facility] Rx#:[id number] Intake, IV Titration 1000 Amount Dextrose 5%-0.9% NaCl 1, 500 000 ml @ 100 mls/hr IV . Q10H [facility] Rx#:[id number] Sodium Chloride 0.9% 500 500 ml 500 ml @ 999 mls/hr IV .Q31M [facility] Rx#:[id number] Oral 550 540 Output: Urine 300 Other: Voiding Method Toilet Toilet Toilet # Voids 2 2 1 - Exam GENERAL: The patient is alert and oriented x3, not in any acute distress. Well developed, well nourished. HEENT: Pupils are round and equally reacting to light. EOMI. No scleral icterus. No conjunctival pallor. Normocephalic, atraumatic. No pharyngeal erythema. No thyromegaly. CARDIOVASCULAR: S1 and S2 present. No murmurs, rubs, or gallops. PULMONARY: Chest is clear to auscultation, no wheezing or crackles. -ABDOMEN: Soft, nontender, mild lower abdominal tenderness, no rebound tenderness or guarding, normoactive bowel sounds. No palpable organomegaly. MUSCULOSKELETAL: No joint swelling or deformity. EXTREMITIES: No cyanosis, clubbing, or pedal edema. NEUROLOGICAL: Gross neurological examination did not reveal any focal deficits. SKIN: No rashes. no petechiae. - Labs CBC & Chem 7: 07/10/20 06:19 07/10/20 06:19 Labs: Abnormal Lab Results - Last 24 Hours (Table) 07/10/20 07/10/20 Range/Units 06:19 06:19 RBC 3.74 L (3.80-5.40) m/uL Est GFR (CKD-EPI)NonAf 57.3 L (60.0-200.0) BUN/Creatinine Ratio 21.82 H (12.00-20.00) Ratio Glucose 149 H (70-110) mg/dL Calcium 8.5 L (8.7-10.3) mg/dL Microbiology - Last 24 Hours (Table) 07/07/20 07:38 Blood Culture - Preliminary Blood No Growth after 72 hours Assessment and Plan Assessment: Acute kidney injury, improving Bilateral inguinal lymphadenopathy, we will need to CT of the chest with abdomen and pelvis with contrast Nonsustained V. tach, reconsult cardiology Chest pain, cardiac causes ruled out. Pulmonary causes ruled out. Could be musculoskeletal versus other Left leg pain. Resolved. No DVT PER Ultrasound Lower abdominal pain with history of blood per rectum, mild. Hemoglobin is normal. Diabetes mellitus, with hypoglycemia Hypertension Hypothyroidism Hyperlipidemia History of seizure, continue with same seizure medication Plan: this is a pleasant 53 years old female who presents with chest pain, abdominal pain . Also with inguinal lymphadenopathy and AK I. Continue with IV fluids. Hold lisinopril and Aldactone and/or dose of metoprolol and monitor creatinine consult oncology team for her lymphadenopathy, they recommended CT of the chest and abdomen and pelvis with contrast for her creatinine improves 3 consult cardiology for V. tach Pain management Labs and medication were reviewed.. Continue same treatment. Continue with symptomatic treatment. Resume home medication. Monitor lytes and vitals. DVT and GI prophylaxis. Further recommendationsas per clinical course of the patient DVT prophylaxis: Subcutaneous heparin GI Prophylaxis: Ppi Prognosis is guarded
--- NOTE | 2020-07-10 12:36 | P.PN ---
Subjective HPI: This is a pleasant 54-year-old female past medical history significant for coronary artery disease status post 4V bypass grafting in 2013, diabetes mellitus, hypertension, dyslipidemia, bipolar disorder, valvular heart disease status post mitral valve repair 2016, peripheral vascular disease and chronic nicotine dependence. She follows with a sterile tech in [place]. She underwent successful PCI of the PDA branch with Dr. Murillo 06/25/2020. Unfortunately she has been having constant chest pain over the last 14 weeks. She states it started after she had a peripheral intervention of her legs. It has been constant and never improved slowly. The only thing that seems to help his morphine. It is not reproducible with any movement or positioning. There is no association with exertion. She has had numerous prior workups with troponins negative. She did have an abnormal stress test from my care at [facility] and does have known CAD with long stents in her circumflex, all her bypass grafts have been closed except for her ROBLES. Her chest pain does not appear related to angina and patient was evaluated earlier in hospitalization with recommendations for outpatient workup as chest pain appeared noncardiac in nature. Previous echocardiogram in May revealed preserved LV systolic function with ejection fraction 55-60% with a mean gradient across the mitral valve is 6 mmHg with a normally functioning bioprosthetic valve and mild tricuspid regurgitation. We were reconsulted for reported episodes of ventricular tachycardia. Patient has remained in the hospital with workup of lower abdominal pain and mildly elevated creatinine. She had a VQ scan which showed low suspicion of PE. She states the chest pain appears the same as previously and has not significantly changed. She does admit to intermittent episodes of feeling lightheaded. Telemetry reviewed. Patient has numerous episodes of obvious artifact. Additionally there are episodes of wide complex appearing rhythm however does not appear consistent with VT and QRS seen obviously marching through 4 the beginning and end of these rhythms. Do not see any evidence of ventricular tachycardia GENERAL: Well-appearing, well-nourished and in no acute distress. NECK: Supple without JVD or thyromegaly. LUNGS: Breath sounds clear to auscultation bilaterally. Respiration equal and unlabored. No wheezes, rales or rhonchi. HEART: Regular rate and rhythm without murmurs, rubs or gallops. S1 and S2 heard. EXTREMITIES: Normal range of motion, no edema. No clubbing or cyanosis. Peripheral pulses intact. ASSESSMENT Chest pain, atypical and has been constant for 14 weeks. If this were ischemic, we would have seen some form of myocardial infarction or abnormality and blood work. Coronary artery disease status post PCI with history of bypass grafting 2013. Recent cath from [facility] showed occluded grafts except ROBLES to LAD. Hypertension Status post mitral valve repair 2013 Peripheral vascular disease Hypertension Dyslipidemia Diabetes mellitus Chronic nicotine dependence Concern of wide complex rhythm on telemetry however all events appear related to artifact with QRS marching through on telemetry. No evidence of VT. PLAN No evidence of VT and teletry consistent with artifact. For completeness sake we will check troponins. If troponins normal, no further workup from a cardiology standpoint and patient can be discharged from a cardiology standpoint with outpatient follow-up with Dr. Murillo in 1 week. Continue dual antiplatelet therapy, beta janay, antianginals. Defer the further workup of abdominal pain to primary team. Please call with any questions. Objective - Vital Signs Vital signs: Vital Signs Temp 97.6 F 07/10/20 08:26 Pulse 67 07/10/20 11:26 Resp 16 07/10/20 08:26 BP 135/75 07/10/20 11:26 Pulse Ox 99 07/10/20 11:26 Intake & Output 07/09/20 07/10/20 07/10/20 18:59 06:59 18:59 Intake Total 150 1550 540 Output Total 300 Balance -150 1550 540 Intake: IV 150 Dextrose 5%-0.9% NaCl 1, 150 000 ml @ 100 mls/hr IV . Q10H [facility] Rx#:[id number] Intake, IV Titration 1000 Amount Dextrose 5%-0.9% NaCl 1, 500 000 ml @ 100 mls/hr IV . Q10H [facility] Rx#:[id number] Sodium Chloride 0.9% 500 500 ml 500 ml @ 999 mls/hr IV .Q31M [facility] Rx#:[id number] Oral 550 540 Output: Urine 300 Other: Voiding Method Toilet Toilet Toilet # Voids 2 2 1 - Labs CBC & Chem 7: 07/10/20 06:19 07/10/20 06:19 Labs: Abnormal Lab Results - Last 24 Hours (Table) 07/10/20 07/10/20 Range/Units 06:19 06:19 RBC 3.74 L (3.80-5.40) m/uL Est GFR (CKD-EPI)NonAf 57.3 L (60.0-200.0) BUN/Creatinine Ratio 21.82 H (12.00-20.00) Ratio Glucose 149 H (70-110) mg/dL Calcium 8.5 L (8.7-10.3) mg/dL Microbiology - Last 24 Hours (Table) 07/07/20 07:38 Blood Culture - Preliminary Blood No Growth after 72 hours
[2020-07-10] MEDS: SODIUM CHLORIDE 0.9% 1,000 ML IV SCH (18:11)
[2020-07-10] MEDS: ARIPiprazole 5 MG TAB PO SCH (19:49)
[2020-07-10] MEDS: QUEtiapine 50 MG TAB PO SCH (19:51)
[2020-07-10] MEDS: MIRTAZAPINE 45 MG TABLET PO SCH (19:51)
[2020-07-10] MEDS: METOPROLOL TARTRATE 25 MG TAB PO SCH (19:51)
[2020-07-10] MEDS: HYDROcodone/APAP 10-325MG 1 EACH TAB PO PRN (20:07)
[2020-07-11] MEDS: HYDROcodone/APAP 10-325MG 1 EACH TAB PO PRN ×3 (01:09→17:18)
[2020-07-11] MEDS: LEVOTHYROXINE 75 MCG TAB PO SCH (06:13)
[2020-07-11] MEDS: LEVOTHYROXINE 100 MCG TAB PO SCH (06:13)
[2020-07-11 08:07] LABS: Basophils % (A) 1 %; Eosinophils # (A) 0.1 k/uL (0-0.7); Eosinophils % (A) 3 %; HCT 36.5 % (34.0-46.0); HGB 12.3 gm/dL (11.4-16.0); Lymphocytes % (A) 27 %; MCH 31.5 pg (25.0-35.0); MCHC 33.7 g/dL (31.0-37.0); MCV 93.3 fL (80.0-100.0); Mean Platelet Volume 6.9; Monocytes # (A) 0.2 k/uL (0-1.0); Monocytes % (A) 5 %; Neutrophils # (A) 2.3 k/uL (1.3-7.7); Neutrophils % (A) 62 %; Platelet Count 269 k/uL (150-450); RBC 3.91 m/uL (3.80-5.40); RDW 14.6 % (11.5-15.5); WBC 3.8 k/uL (3.8-10.6)
[2020-07-11 08:32] LABS: African American GFR (CKD) 66 (>60 ml/min/1.73 sqM); Anion Gap 7 mmol/L; Blood Urea Nitrogen 22 mg/dL (7-17); Calcium 9.3 mg/dL (8.4-10.2); Carbon Dioxide 25 mmol/L (22-30); Chloride 107 mmol/L (98-107); Glucose 104 mg/dL (74-99); Non-African American GFR(CKD) 58 (>60 ml/min/1.73 sqM); Potassium 4.5 mmol/L (3.5-5.1); Sodium 139 mmol/L (137-145)
[2020-07-11] MEDS: CYCLOBENZAPRINE 10 MG TAB PO SCH ×3 (08:47→20:33)
[2020-07-11] MEDS: PANTOPRAZOLE 40 MG TABLET PO SCH (08:47)
[2020-07-11] MEDS: SERTRALINE 50 MG TAB PO SCH (08:47)
[2020-07-11] MEDS: INSULIN DETEMIR (LEVEMIR) 100 UNIT/ML SYR SQ SCH ×2 (08:47→20:32)
[2020-07-11] MEDS: METOPROLOL TARTRATE 25 MG TAB PO SCH ×2 (08:47→20:33)
[2020-07-11] MEDS: HEPARIN SODIUM,PORCINE 5,000 UNIT/ML 1 ML VIAL SQ SCH ×2 (08:47→20:32)
[2020-07-11] MEDS: ASPIRIN 81 MG PO SCH (08:47)
[2020-07-11] MEDS: FOLIC ACID 1 MG TAB PO SCH (08:47)
[2020-07-11] MEDS: FERROUS SULFATE 325 MG TAB PO SCH ×2 (08:47→20:34)
[2020-07-11] MEDS: hydrOXYzine pamoate 25 MG CAP PO SCH ×3 (08:48→20:32)
[2020-07-11] MEDS: ATORVASTATIN 80 MG TAB PO SCH (08:48)
[2020-07-11] MEDS: CALCIUM CARBONATE 500 MG CHEWABLE PO SCH (08:48)
[2020-07-11] MEDS: POTASSIUM CHLORIDE ER 20 MEQ TAB.ER PO SCH (08:48)
[2020-07-11] MEDS: ISOSORBIDE MONONITRATE ER 30 MG TAB.ER.24H PO SCH (08:48)
[2020-07-11] MEDS: TICAGRELOR 90 MG TAB PO SCH ×2 (08:49→20:32)
[2020-07-11] MEDS: levETIRAcetam 500 MG TAB PO SCH ×2 (08:49→20:33)
[2020-07-11] MEDS: RANOLAZINE 500 MG TAB.ER.12H PO SCH ×2 (08:50→20:32)
[2020-07-11] MEDS: INSULIN ASPART (NovoLOG) 100 UNIT/ML VIAL SQ SCH ×4 (08:50→20:32)
[2020-07-11 09:26] LABS: Glucose,Whole Blood 226 mg/dL (75-99)
[2020-07-11 09:29] LABS: Glucose,Whole Blood 163 mg/dL (75-99)
[2020-07-11 09:29] LABS: Glucose,Whole Blood 241 mg/dL (75-99)
[2020-07-11 09:29] LABS: Glucose,Whole Blood 183 mg/dL (75-99)
[2020-07-11 09:29] LABS: Glucose,Whole Blood 220 mg/dL (75-99)
[2020-07-11 09:29] LABS: Glucose,Whole Blood 138 mg/dL (75-99)
[2020-07-11 09:31] LABS: Glucose,Whole Blood 219 mg/dL (75-99)
[2020-07-11 09:31] LABS: Glucose,Whole Blood 127 mg/dL (75-99)
[2020-07-11 09:32] LABS: Glucose,Whole Blood 211 mg/dL (75-99)
[2020-07-11 09:33] LABS: Glucose,Whole Blood 140 mg/dL (75-99)
[2020-07-11 09:37] LABS: Glucose,Whole Blood 62 mg/dL (75-99)
[2020-07-11 09:37] LABS: Glucose,Whole Blood 60 mg/dL (75-99)
[2020-07-11 09:37] LABS: Glucose,Whole Blood 106 mg/dL (75-99)
[2020-07-11 09:37] LABS: Glucose,Whole Blood 165 mg/dL (75-99)
[2020-07-11 09:43] LABS: Glucose,Whole Blood 99 mg/dL (75-99)
--- NOTE | 2020-07-11 11:16 | P.NPCON ---
History of Present Illness - Reason for Consult acute renal failure - History of Present Illness Reason for consultation: Acute kidney injury History of present illness: Patient is a 54-year-old female seen in consultation for acute kidney injury. Patient's creatinine is 1.1 today. Patient has history of severe coronary artery disease status post CABG as well as multiple cardiac stents. Patient presented to the hospital with chest pain. Her most recent stent was placed 11 days prior to this admission. She has been evaluated by cardiology and there is low suspicion for ischemic disease. VQ scan showed low suspicion for PE. She currently denies chest pain. No shortness of breath. No edema. Good urine output. No hematuria or dysuria. Patient states she was diagnosed with diabetes at the age of 9. She also has long-standing history of high blood pressure. She is noted to have bilateral inguinal lymphadenopathy and CAT scan with IV contrast is pending. She is currently not on any IV fluids due to no IV access. Denies family history of renal disease. Oral intake is good. No cou gh. No fever or chills. Vital signs are stable. General: The patient appeared well nourished and normally developed. HEENT: Head exam is unremarkable. Neck is without jugular venous distension. LUNGS: Breath sounds decreased. HEART: Rate and Rhythm are regular. ABDOMEN: Soft, nontender. EXTREMITITES: No edema. Chronic changes noted. Past Medical History Past Medical History: Coronary Artery Disease (CAD), Chest Pain / Angina, Diabetes Mellitus, Hyperlipidemia, Hypertension, Musculoskeletal Disorder History of Any Multi-Drug Resistant Organisms: None Reported Past Surgical History: Bladder Surgery, Coronary Bypass/CABG, Heart Catheterization, Heart Catheterization With Stent Additional Past Surgical History / Comment(s): CABG in 2013, Mitral valve on 2016, Heart Stent, bilateral leg stent Past Anesthesia/Blood Transfusion Reactions: No Reported Reaction Date of Last Stent Placement:: 06/25/20 Past Psychological History: Bipolar Smoking Status: Current every day smoker Past Alcohol Use History: None Reported Past Drug Use History: None Reported - Past Family History Father Additional Family Medical History / Comment(s): heart disease Medications and Allergies Home Medications Medication Instructions Recorded Confirmed Type ARIPiprazole [Abilify] 5 mg PO HS 05/21/20 07/06/20 History Aspirin 81 mg PO DAILY 05/21/20 07/06/20 History Atorvastatin [Lipitor] 80 mg PO DAILY 05/21/20 07/06/20 History Calcium Carbonate [Calcium] 600 mg PO DAILY 05/21/20 07/06/20 History Cyclobenzaprine [Flexeril] 10 mg PO TID 05/21/20 07/06/20 History Ferrous Sulfate [Iron (65 MG 325 mg PO BID 05/21/20 07/06/20 History Elemental)] Folic Acid 1 mg PO DAILY 05/21/20 07/06/20 History Furosemide [Lasix] 40 mg PO DAILY 05/21/20 07/06/20 History INSULIN ASPART (NovoLOG) [NovoLOG See Protocol SQ ACHS 05/21/20 07/06/20 History (formulary)] Insulin Glargine,Hum.rec.anlog 28 unit SQ BID 05/21/20 07/06/20 History [Lantus Solostar] Isosorbide Mononitrate ER [Imdur] 30 mg PO DAILY 05/21/20 07/06/20 History Levothyroxine Sodium [Synthroid] 175 mcg PO DAILY 05/21/20 07/06/20 History Metoprolol Tartrate [Lopressor] 25 mg PO BID 05/21/20 07/06/20 History Mirtazapine [Remeron] 45 mg PO HS 05/21/20 07/06/20 History Potassium Chloride ER [K-Dur 20] 20 meq PO DAILY 05/21/20 07/06/20 History QUEtiapine [SEROquel] 50 mg PO HS 05/21/20 07/06/20 History Ranolazine [Ranexa] 1,000 mg PO BID 05/21/20 07/06/20 History Sertraline [Zoloft] 50 mg PO DAILY 05/21/20 07/06/20 History Spironolactone 25 mg PO HS 05/21/20 07/06/20 History hydrOXYzine pamoate [Vistaril] 25 mg PO TID 05/21/20 07/06/20 History levETIRAcetam [Keppra] 500 mg PO BID 05/21/20 07/06/20 History lisinopriL [Zestril] 2.5 mg PO DAILY 05/21/20 07/06/20 History Loperamide [Imodium] 2 mg PO QID PRN 06/08/20 07/06/20 History Nitroglycerin Sl Tabs [Nitrostat] 0.4 mg SUBLINGUAL Q5M PRN 90 Days 06/27/20 07/06/20 Rx #100 tab Ticagrelor [Brilinta] 90 mg PO BID tab 06/27/20 07/06/20 Rx HYDROcodone/APAP 5-325MG [[place] 1 tab PO TID PRN 07/06/20 07/06/20 History 5-325] Allergies Allergy/AdvReac Type Severity Reaction Status Date / Time gabapentin Allergy Anaphylaxis Verified 07/06/20 17:53 shellfish derived [Crab] Allergy Rash/Hives Verified 07/06/20 17:53 Physical Exam Vitals: Vital Signs Temp Pulse Pulse Resp BP BP Pulse Ox 07/11/20 08:00 97.7 F 14 127/84 100 07/11/20 02:00 98.7 F 87 20 129/80 98 07/10/20 20:00 20 07/10/20 19:30 97.3 F L 77 20 142/85 99 07/10/20 15:00 98.0 F 74 18 131/61 100 07/10/20 11:26 67 135/75 99 Intake and Output 07/10/20 07/11/20 07/11/20 22:59 06:59 14:59 Intake Total 240 Balance 240 Intake: Oral 240 Other: Voiding Method Toilet # Voids 1 2 Results - Lab Results Most recent lab results Calcium 9.3 mg/dL (8.4-10.2) 07/11/20 07:21 Magnesium 1.8 mg/dL (1.6-2.3) 07/06/20 19:46 07/11/20 07:21 07/11/20 07:21 Assessment and Plan Plan: Assessment: 1. Mild acute kidney injury mostly prerenal. Creatinine 1.1 today. 2. Rule out chronic kidney disease. She does have proteinuria on UA which is mostly secondary to underlying diabetic kidney disease. Further workup outpatient. 3. Bilateral inguinal lymphadenopathy. 4. Diabetes mellitus. 5. Hypertension with chronic kidney disease. Controlled. 6. Coronary artery disease status post CABG and stenting. Plan: Start normal saline at 75 mL an hour - Hep-Lock IV fluids 8-10 hours post CAT scan with IV contrast. Discussed with the patient the risk of worsening renal failure, potentially requiring renal replacement therapy, post-IV contrast exposure. She unders tands. Continue to monitor renal function and urine output. Avoid nephrotoxins. Thank you for the consultation. I will continue to follow the patient with you during her hospital stay.
[2020-07-11 11:49] LABS: Glucose,Whole Blood 145 mg/dL (75-99)
[2020-07-11] MEDS ORDERED: SENNOSIDES 8.6 MG TAB PO PRN (11:49)
[2020-07-11] MEDS ORDERED: polyethylene glycoL 3350 17 GM POWD.PACK PO PRN (11:50)
--- NOTE | 2020-07-11 12:38 | P.PN ---
Subjective Progress Note Date: 07/11/20 Principal diagnosis: 1. Chest pain 2. Abominal pain 3. Inguinal LAD 4. Abnormal vaginal bleeding Pt continues to have lower abdominal pain. She did have some abnormal vaginal bleeding. Had hysterectomy and oophorectomy at age 27 due to fibrocystic disease. No gynecologist exam in a long time. No recent mammograms. She feels small lumps beneath her breast as well as in her neck for the past couple months. No other complaints. No B symptoms. Objective - Vital Signs Vital signs: Vital Signs Temp 97.7 F 07/11/20 08:00 Pulse 87 07/11/20 02:00 Resp 14 07/11/20 08:00 BP 127/84 07/11/20 08:00 Pulse Ox 100 07/11/20 08:00 Intake & Output 07/10/20 07/11/20 07/11/20 18:59 06:59 18:59 Intake Total 540 240 Balance 540 240 Intake: Oral 540 240 Other: Voiding Method Toilet Toilet Toilet # Voids 1 2 - Exam Gen.: No acute distress. HEENT: No conjunctival pallor or scleral icterus. Mucosa moist. Neck: Supple. Lymph: Small left cervical LAD. Bilateral cervical fullness. No axillary LAD. No obvious breast masses palpable although breast exam limited. Lungs: No respiratory distress. Heart: Regular rate. No lower extremity edema. Abdomen: Soft, nontender. MSK: Appropriate strength in all 4 extremities. Neuro: Alert. Skin: No jaundice. Psych: Appropriate affect. - Labs CBC & Chem 7: 07/11/20 07:21 07/11/20 07:21 Labs: Abnormal Lab Results - Last 24 Hours (Table) 07/08/20 07/08/20 07/08/20 Range/Units 06:08 06:46 07:10 BUN (7-17) mg/dL Creatinine (0.52-1.04) mg/dL Glucose (74-99) mg/dL POC Glucose (mg/dL) 62 L 60 L 106 H (75-99) mg/dL 07/08/20 07/08/20 07/08/20 Range/Units 11:59 17:10 20:17 BUN (7-17) mg/dL Creatinine (0.52-1.04) mg/dL Glucose (74-99) mg/dL POC Glucose (mg/dL) 165 H 127 H 219 H (75-99) mg/dL 07/09/20 07/09/20 07/09/20 Range/Units 06:11 11:28 16:22 BUN (7-17) mg/dL Creatinine (0.52-1.04) mg/dL Glucose (74-99) mg/dL POC Glucose (mg/dL) 211 H 140 H 183 H (75-99) mg/dL 07/09/20 07/10/20 07/10/20 Range/Units 20:15 07:02 11:49 BUN (7-17) mg/dL Creatinine (0.52-1.04) mg/dL Glucose (74-99) mg/dL POC Glucose (mg/dL) 220 H 138 H 241 H (75-99) mg/dL 07/10/20 07/10/20 07/11/20 Range/Units 16:41 20:05 07:21 BUN 22 H (7-17) mg/dL Creatinine 1.10 H (0.52-1.04) mg/dL Glucose 104 H (74-99) mg/dL POC Glucose (mg/dL) 163 H 226 H (75-99) mg/dL 07/11/20 Range/Units 11:46 BUN (7-17) mg/dL Creatinine (0.52-1.04) mg/dL Glucose (74-99) mg/dL POC Glucose (mg/dL) 145 H (75-99) mg/dL Microbiology - Last 24 Hours (Table) 07/07/20 07:38 Blood Culture - Preliminary Blood No Growth after 96 hours Assessment and Plan Assessment: 1. Inguinal LAD 2. Chest pain 3. Abdominal pain 4. Rectal bleeding 5. YESY 6. Vaginal bleeding Plan: Ms. Sheikh is a 54 yo female with multiple comorbidities including cardiac disease on aspirin and brilinta, here for chest pain, negative cardiac work up. Course complicated by elevated D-dimer and abdominal pain, and work up including abd US was negative, V/Q scan negative, and LE doppler negative for DVT however showed bilateral inguinal LAD, 4cm on right and 3.1cm on left. No B symptoms. Unclear etiology at this time. She is complaining of rectal bleeding however Hgb is stable. Ideally would recommend CT CAP to assess for LAD elsewhere in her body however she is having slowly rising/fluctuating Cr and contrast would be needed to identify LAD clearly. Inguinal LAD is common however. Suggest GI work up as well as gynecologist exam as she also states she had abnormal vaginal bleeding. Mammogram OP. If stable, would recommend addressing renal dysfunction and obtaining CT NCAP with contrast once safe to do so. If pt otherwise ready for discharge further work up could also be pursued outpatient. Discussed with pt and she is agreeable to the plan. All questions answered.
--- NOTE | 2020-07-11 13:02 | P.PN ---
Subjective This is a pleasant 64 years old female with multiple medical problems as below including coronary artery disease, diabetes mellitus, hypertension, h yperlipidemia, status post CABG and stent placement. She is a patient of Dr. Leone. She presents because of chest pain of 2 days' prior to come to the hospital, the pain is in the lower central chest and below left breast about 8/10 in severity, felt like tightness, radiating to the left arm, with no much coughing or dyspnea. Also she is complaining of from left leg pain are below her left knee and the cuff for 2 days duration with no leg swelling or warmth or redness. Patient already has been evaluated by social worker assistant and cleared her for discharge However Her yesterday because she has abdominal pain. Patient states that she has lower abdominal pain for 3-4 days, felt like mild, non-radiated, associated with blood per rectum 2 days ago, she noticed some blood when she wiped. Patient states that she has recently had colonoscopy about 4 months ago also for blood per rectum. However patient vitals and hemoglobin are stable and normal with Hb is 11.4. Also she is on aspirin and brilinta, we will add Protonix for GI prophylaxis She is diabetic and this morning she was hypoglycemic. her glucose was 62 this morning after juice went up to 114. She is on Levemir 28 units twice a day, we will lower it to 25 units twice a day 07/09/2020 Patient presents with chest pain and she got kicked by social worker assistant. Yesterday her d-dimer was elevated, CTA of the chest was not done because her creatinine was trending up from 0.7 TO 1.0, ventilation/perfusion scan was done and it was low probability for PE. Ultrasound of the lower extremities negative for DVT however shows bilateral groin lymph nodes. Also she was started on D5 normal sinus at 100 mL per hour Also patient is complaining of from lower abdominal pain, abdominal ultrasound was negative. Today she still have same chest pain and lower abdominal pain which looks mild to moderate, we'll switch morphine 10 [place] and patient agrees Her creatinine is trending up to 1.2. Continue with D5 normal saline at 100 mL per hour, yesterday we lowered her metoprolol from 25 down to 12.5 mg, today we were holding her lisinopril and Aldactone and monitor her creatinine Consult oncology team for her lymphadenopathy 07/10/2020 Patient is awake and alert, she still have same chest pain and abdominal pain with no new symptoms. She has bilateral inguinal lymphadenopathy and oncologist recommended CT of the chest, abdomen and pelvis with contrast, we held contrast CT now because of her elevated creatinine although it's trending down to 1.1 but is not to baseline yet, her blood pressure still low normal and her blood pressure medication were stopped including lisinopril, Aldactone and metoprolol and she is on IV fluids with boluses is provided Also today developed nonsustained V. tach, could be contributed to her stopping metoprolol. However we ordered EKG and cardiology team to be reconsulted Discussed with patient and staff to obtain occult blood in the stool however no need for blood transfusion as her hemoglobin is stable. 07/11/2020 Patient is awake, she has persistent mild to moderate chest pain and abdominal pain, cardiac and pulmonary causes ruled out. Patient is counseled about narcotics, her pain currently is partially controlled with [place] 10, explained to the patient we will try to taper down from tomorrow and she agrees. Also she agrees to the lidocaine patch. Also she still complaining from constipation and Senokot and MiraLAX is added. Occult blood in the stool is pending Her creatinine is still elevated, no IV access although several attempts by staff. Midline is ordered but cannot be done until tomorrow as it is weekend. Nephrology input is appreciated Review of systems CONSTITUTIONAL: No fever, no malaise, no fatigue. HEENT: No recent visual problems or hearing problems. Denied any sore throat. CARDIOVASCULAR: No orthopnea, PND, no palpitations, no syncope. PULMONARY: No shortness of breath, no cough, no hemoptysis. GASTROINTESTINAL: No diarrhea, no nausea, no vomiting, no abdominal pain. Normoactive bowel sounds. NEUROLOGICAL: No headaches, no weakness, no numbness. Active Medications Generic Name Dose Route Start Last Admin Trade Name Freq PRN Reason Stop Dose Admin Hydrocodone Bitart/Acetaminophen 1 each 07/10/20 19:31 07/11/20 08:47 Hydrocodone/Apap 10-325mg 1 Each Tab PO 1 each Q6H PRN Administration Pain Aripiprazole 5 mg 07/06/20 21:00 07/10/20 19:49 Aripiprazole 5 Mg Tab PO 5 mg HS CAROLYN Administration Aspirin 81 mg 07/07/20 09:00 07/11/20 08:47 Aspirin 81 Mg PO 81 mg DAILY CAROLYN Administration Atorvastatin Calcium 80 mg 07/07/20 09:00 07/11/20 08:48 Atorvastatin 80 Mg Tab PO 80 mg DAILY [facility] Administration Calcium Carbonate/Glycine 500 mg 07/07/20 09:00 07/11/20 08:48 Calcium Carbonate 500 Mg Chewable PO 500 mg DAILY CAROLYN Administration Cyclobenzaprine HCl 10 mg 07/06/20 22:00 07/11/20 08:47 Cyclobenzaprine 10 Mg Tab PO 10 mg TID CAROLYN Administration Dicyclomine HCl 10 mg 07/07/20 17:07 07/08/20 10:46 Dicyclomine 10 Mg Cap PO 10 mg TID PRN Administration Dyspepsia Ferrous Sulfate 325 mg 07/06/20 21:00 07/11/20 08:47 Ferrous Sulfate 325 Mg Tab PO 325 mg BID CAROLYN Administration Folic Acid 1 mg 07/07/20 09:00 07/11/20 08:47 Folic Acid 1 Mg Tab PO 1 mg DAILY [facility] Administration Heparin Sodium (Porcine) 5,000 unit 07/09/20 12:30 07/11/20 08:47 Heparin Sodium,Porcine 5,000 Unit/Ml 1 Ml Vial SQ 5,000 unit Q12HR [facility] Administration Hydroxyzine Pamoate 25 mg 07/06/20 22:00 07/11/20 08:48 Hydroxyzine Pamoate 25 Mg Cap PO 25 mg TID [facility] Administration Sodium Chloride 1,000 mls @ 60 mls/hr 07/10/20 18:00 07/10/20 18:11 Saline 0.9% IV Not Given .[id number] [facility] Insulin Aspart 0 unit 07/07/20 09:12 07/11/20 08:50 Insulin Aspart (Novolog) 100 Unit/Ml Vial SQ Not Given ACHS [facility] Protocol Insulin Detemir 25 unit 07/08/20 21:00 07/11/20 08:47 Insulin Detemir (Levemir) 100 Unit/Ml Syr SQ 25 unit BID [facility] Administration Isosorbide Mononitrate 30 mg 07/07/20 09:00 07/11/20 08:48 Isosorbide Mononitrate Er 30 Mg Tab.Er.24h PO 30 mg DAILY [facility] Administration Levetiracetam 500 mg 07/06/20 21:00 07/11/20 08:49 Levetiracetam 500 Mg Tab PO 500 mg BID CAROLYN Administration Levothyroxine Sodium 100 mcg 07/07/20 06:30 07/11/20 06:13 Levothyroxine 100 Mcg Tab PO 100 mcg DAILY@0630 [facility] Administration Levothyroxine Sodium 75 mcg 07/07/20 06:30 07/11/20 06:13 Levothyroxine 75 Mcg Tab PO 75 mcg DAILY@0630 CAR[facility] Administration Metoprolol Tartrate 25 mg 07/10/20 21:00 07/11/20 08:47 Metoprolol Tartrate 25 Mg Tab PO 25 mg BID CAROLYN Administration Mirtazapine 45 mg 07/06/20 21:00 07/10/20 19:51 Mirtazapine 45 Mg Tablet PO 45 mg HS CAROLYN Administration Naloxone HCl 0.2 mg 07/06/20 20:44 Naloxone 0.4 Mg/Ml 1 Ml Vial IV Q2M PRN Opioid Reversal Ondansetron HCl 4 mg 07/06/20 20:44 07/08/20 21:08 Ondansetron 4 Mg/2 Ml Vial IVP 4 mg Q8HR PRN Administration Nausea And Vomiting Pantoprazole Sodium 40 mg 07/10/20 07:30 07/11/20 08:47 Pantoprazole 40 Mg Tablet PO 40 mg [id number] [facility] Administration Polyethylene Glycol 17 gm 07/11/20 11:50 Polyethylene Glycol 3350 17 Gm Powd.Pack PO DAILY PRN Constipation Potassium Chloride 20 meq 07/07/20 09:00 07/11/20 08:48 Potassium Chloride Er 20 Meq Tab.Er PO 20 meq DAILY [facility] Administration Quetiapine Fumarate 50 mg 07/06/20 21:00 07/10/20 19:51 Quetiapine 50 Mg Tab PO 50 mg HS CAROLYN Administration Ranolazine 1,000 mg 07/06/20 21:00 07/11/20 08:50 Ranolazine 500 Mg Tab.Er.12h PO 1,000 mg BID CAROLYN Administration Senna 8.6 mg 07/11/20 11:49 Sennosides 8.6 Mg Tab PO BID PRN Constipation Sertraline HCl 50 mg 07/07/20 09:00 07/11/20 08:47 Sertraline 50 Mg Tab PO 50 mg DAILY CAROL[facility] Administration Ticagrelor 90 mg 07/06/20 21:00 07/11/20 08:49 Ticagrelor 90 Mg Tab PO 90 mg BID CAROLYN Administration Objective - Vital Signs Vital signs: Vital Signs Temp 97.7 F 07/11/20 08:00 Pulse 87 07/11/20 02:00 Resp 14 07/11/20 08:00 BP 127/84 07/11/20 08:00 Pulse Ox 100 07/11/20 08:00 Intake & Output 07/10/20 07/11/20 07/11/20 18:59 06:59 18:59 Intake Total 540 240 Balance 540 240 Intake: Oral 540 240 Other: Voiding Method Toilet Toilet Toilet # Voids 1 2 - Exam GENERAL: The patient is alert and oriented x3, not in any acute distress. Well developed, well nourished. HEENT: Pupils are round and equally reacting to light. EOMI. No scleral icterus. No conjunctival pallor. Normocephalic, atraumatic. No pharyngeal erythema. No thyromegaly. CARDIOVASCULAR: S1 and S2 present. No murmurs, rubs, or gallops. PULMONARY: Chest is clear to auscultation, no wheezing or crackles. -ABDOMEN: Soft, nontender, mild lower abdominal tenderness, no rebound tenderness or guarding, normoactive bowel sounds. No palpable organomegaly. MUSCULOSKELETAL: No joint swelling or deformity. EXTREMITIES: No cyanosis, clubbing, or pedal edema. NEUROLOGICAL: Gross neurological examination did not reveal any focal deficits. SKIN: No rashes. no petechiae. - Labs CBC & Chem 7: 07/11/20 07:21 07/11/20 07:21 Labs: Abnormal Lab Results - Last 24 Hours (Table) 07/08/20 07/08/20 07/08/20 Range/Units 06:08 06:46 07:10 BUN (7-17) mg/dL Creatinine (0.52-1.04) mg/dL Glucose (74-99) mg/dL POC Glucose (mg/dL) 62 L 60 L 106 H (75-99) mg/dL 07/08/20 07/08/20 07/08/20 Range/Units 11:59 17:10 20:17 BUN (7-17) mg/dL Creatinine (0.52-1.04) mg/dL Glucose (74-99) mg/dL POC Glucose (mg/dL) 165 H 127 H 219 H (75-99) mg/dL 07/09/20 07/09/20 07/09/20 Range/Units 06:11 11:28 16:22 BUN (7-17) mg/dL Creatinine (0.52-1.04) mg/dL Glucose (74-99) mg/dL POC Glucose (mg/dL) 211 H 140 H 183 H (75-99) mg/dL 07/09/20 07/10/20 07/10/20 Range/Units 20:15 07:02 11:49 BUN (7-17) mg/dL Creatinine (0.52-1.04) mg/dL Glucose (74-99) mg/dL POC Glucose (mg/dL) 220 H 138 H 241 H (75-99) mg/dL 07/10/20 07/10/20 07/11/20 Range/Units 16:41 20:05 07:21 BUN 22 H (7-17) mg/dL Creatinine 1.10 H (0.52-1.04) mg/dL Glucose 104 H (74-99) mg/dL POC Glucose (mg/dL) 163 H 226 H (75-99) mg/dL 07/11/20 Range/Units 11:46 BUN (7-17) mg/dL Creatinine (0.52-1.04) mg/dL Glucose (74-99) mg/dL POC Glucose (mg/dL) 145 H (75-99) mg/dL Microbiology - Last 24 Hours (Table) 07/07/20 07:38 Blood Culture - Preliminary Blood No Growth after 96 hours Assessment and Plan Assessment: Acute kidney injury, improving Bilateral inguinal lymphadenopathy, we will need to CT of the chest with abdomen and pelvis with contrast Nonsustained V. tach, reconsult cardiology Chest pain, cardiac causes ruled out. Pulmonary causes ruled out. Could be musculoskeletal versus other Left leg pain. Resolved. No DVT PER Ultrasound Lower abdominal pain with history of blood per rectum, mild. Hemoglobin is normal. Diabetes mellitus, with hypoglycemia Hypertension Hypothyroidism Hyperlipidemia History of seizure, continue with same seizure medication Plan: this is a pleasant 53 years old female who presents with chest pain, abdominal pain . Also with inguinal lymphadenopathy and AK I. Continue with IV fluids. Hold lisinopril and Aldactone and/or dose of metoprolol and monitor creatinine consult oncology team for her lymphadenopathy, they recommended CT of the chest and abdomen and pelvis with contrast for her creatinine improves 3 consult cardiology for V. tach Pain management Labs and medication were reviewed.. Continue same treatment. Continue with symptomatic treatment. Resume home medication. Monitor lytes and vitals. DVT and GI prophylaxis. Further recommendationsas per clinical course of the patient DVT prophylaxis: Subcutaneous heparin GI Prophylaxis: Ppi Prognosis is guarded
[2020-07-11] MEDS: LIDOCAINE 5% PATCH TOPICAL SCH (15:23)
[2020-07-11] MEDS: SODIUM CHLORIDE 0.9% 1,000 ML IV SCH (15:24)
[2020-07-11 16:53] LABS: Glucose,Whole Blood 315 mg/dL (75-99)
[2020-07-11 16:53] LABS: Glucose,Whole Blood 260 mg/dL (75-99)
[2020-07-11 16:59] LABS: Glucose,Whole Blood 267 mg/dL (75-99)
[2020-07-11] MEDS: ARIPiprazole 5 MG TAB PO SCH (20:32)
[2020-07-11] MEDS: QUEtiapine 50 MG TAB PO SCH (20:33)
[2020-07-11] MEDS: MIRTAZAPINE 45 MG TABLET PO SCH (20:33)
[2020-07-11 20:38] LABS: Glucose,Whole Blood 163 mg/dL (75-99)
[2020-07-12] MEDS: SODIUM CHLORIDE 0.9% 1,000 ML IV SCH ×2 (02:53→20:48)
[2020-07-12] MEDS: LEVOTHYROXINE 75 MCG TAB PO SCH (05:37)
[2020-07-12] MEDS: HYDROcodone/APAP 10-325MG 1 EACH TAB PO PRN ×3 (05:38→20:47)
[2020-07-12] MEDS: LEVOTHYROXINE 100 MCG TAB PO SCH (05:38)
[2020-07-12 06:53] LABS: Glucose,Whole Blood 74 mg/dL (75-99)
[2020-07-12] MEDS: INSULIN ASPART (NovoLOG) 100 UNIT/ML VIAL SQ SCH ×4 (07:19→20:39)
[2020-07-12] MEDS: CYCLOBENZAPRINE 10 MG TAB PO SCH ×3 (08:26→20:38)
[2020-07-12] MEDS: CALCIUM CARBONATE 500 MG CHEWABLE PO SCH (08:26)
[2020-07-12] MEDS: hydrOXYzine pamoate 25 MG CAP PO SCH ×3 (08:26→20:38)
[2020-07-12] MEDS: METOPROLOL TARTRATE 25 MG TAB PO SCH ×2 (08:26→20:39)
[2020-07-12] MEDS: FOLIC ACID 1 MG TAB PO SCH (08:26)
[2020-07-12] MEDS: POTASSIUM CHLORIDE ER 20 MEQ TAB.ER PO SCH (08:27)
[2020-07-12] MEDS: ISOSORBIDE MONONITRATE ER 30 MG TAB.ER.24H PO SCH (08:27)
[2020-07-12] MEDS: PANTOPRAZOLE 40 MG TABLET PO SCH (08:27)
[2020-07-12] MEDS: SERTRALINE 50 MG TAB PO SCH (08:27)
[2020-07-12] MEDS: FERROUS SULFATE 325 MG TAB PO SCH ×2 (08:27→20:38)
[2020-07-12] MEDS: ATORVASTATIN 80 MG TAB PO SCH (08:27)
[2020-07-12] MEDS: levETIRAcetam 500 MG TAB PO SCH ×2 (08:28→20:39)
[2020-07-12] MEDS: RANOLAZINE 500 MG TAB.ER.12H PO SCH ×2 (08:28→20:39)
[2020-07-12] MEDS: HEPARIN SODIUM,PORCINE 5,000 UNIT/ML 1 ML VIAL SQ SCH ×2 (08:28→20:38)
[2020-07-12] MEDS: TICAGRELOR 90 MG TAB PO SCH ×2 (08:29→20:39)
[2020-07-12] MEDS: INSULIN DETEMIR (LEVEMIR) 100 UNIT/ML SYR SQ SCH ×2 (08:33→20:39)
[2020-07-12 10:06] LABS: Basophils % (A) 0 %; Eosinophils # (A) 0.1 k/uL (0-0.7); Eosinophils % (A) 2 %; HCT 33.6 % (34.0-46.0); HGB 11.1 gm/dL (11.4-16.0); Lymphocytes # (A) 0.8 k/uL (1.0-4.8); Lymphocytes % (A) 21 %; MCV 93.9 fL (80.0-100.0); Monocytes # (A) 0.2 k/uL (0-1.0); Monocytes % (A) 6 %; Neutrophils # (A) 2.6 k/uL (1.3-7.7); Neutrophils % (A) 68 %; Platelet Count 233 k/uL (150-450); RBC 3.58 m/uL (3.80-5.40); RDW 14.6 % (11.5-15.5); WBC 3.8 k/uL (3.8-10.6)
[2020-07-12 11:29] LABS: Glucose,Whole Blood 203 mg/dL (75-99)
[2020-07-12] MEDS ORDERED: LACTULOSE 20 GM/30 ML CUP PO ONE (12:04)
[2020-07-12] MEDS: ASPIRIN 81 MG PO SCH (12:38)
[2020-07-12 13:15] LABS: Reticulocyte % 3.5 % (0.5-2.0)
--- NOTE | 2020-07-12 13:59 | PN ---
PROGRESS NOTE Patient is seen for followup for acute kidney injury. She is scheduled to have a CT scan of the abdomen and pelvis with IV contrast as the patient was noted to have bilateral inguinal lymphadenopathy. Serum creatinine is noted to be 1.1 mg/dL yesterday. No labs available from today. PHYSICAL EXAMINATION: On examination, blood pressure is 115/75, heart rate 63 per minute. She is afebrile. EXAMINATION OF THE HEART: S1, S2. EXAMINATION OF THE LUNGS: Decreased breath sounds at bases. Abdomen is soft, nontender. Examination of lower extremities shows no significant edema. SENIOR CLINICAL RESEARCH SCIENTIST EXAM: Grossly intact. LABS: Labs show sodium 139, potassium 4.5, serum creatinine 1.1 yesterday, hemoglobin 12.3 g/dL. ASSESSMENT: 1. Acute kidney injury mostly prerenal currently improved. Patient is maintained on IV fluids. 2. Possible underlying chronic kidney disease secondary to diabetic nephropathy secondary to proteinuria noted on UA. 3. Bilateral inguinal lymphadenopathy. 4. Coronary artery disease, status post coronary artery bypass surgery and stenting. 5. Hypertension with chronic kidney disease currently controlled. PLAN: Continue with IV fluids. Check labs today and again in a.m. and okay to proceed with CT with IV contrast. MMODL / IJN: [id number] /
[2020-07-12] MEDS: LIDOCAINE 5% PATCH TOPICAL SCH (15:02)
[2020-07-12 15:29] VITALS: BMI 28.3
[2020-07-12 16:25] LABS: ALT 19 U/L (4-34); AST 35 U/L (14-36); African American GFR (CKD) 76 (>60 ml/min/1.73 sqM); Albumin 4.2 g/dL (3.5-5.0); Albumin/Globulin Ratio 1.4; Alkaline Phosphatase 109 U/L (38-126); Anion Gap 9 mmol/L; Blood Urea Nitrogen 28 mg/dL (7-17); Carbon Dioxide 21 mmol/L (22-30); Chloride 107 mmol/L (98-107); Glucose 232 mg/dL (74-99); Non-African American GFR(CKD) 66 (>60 ml/min/1.73 sqM); Potassium 5.5 mmol/L (3.5-5.1); Sodium 137 mmol/L (137-145); Total Bilirubin 0.6 mg/dL (0.2-1.3); Total Protein 7.2 g/dL (6.3-8.2)
[2020-07-12 16:42] LABS: Glucose,Whole Blood 223 mg/dL (75-99)
[2020-07-12 16:59] LABS: African American GFR (CKD) 74.5 (60.0-200.0); Anion Gap 7.4 mmol/L (4.00-12.00); Calcium 8.6 mg/dL (8.7-10.3); Carbon Dioxide 22.6 mmol/L (21.6-31.8); Non-African American GFR(CKD) 64.3 (60.0-200.0)
[2020-07-12] MEDS: IOPAMIDOL CONTRAST (ORAL USE) VIAL PO PRN ×2 (17:25→17:56)
--- NOTE | 2020-07-12 19:33 | CT ---
EXAMINATION TYPE: CT soft tissue neck w con DATE OF EXAM: 07/12/2020 COMPARISON: None HISTORY: Assess adenopathy, concern for mets CT DLP: 329.3 mGycm Automated exposure control for dose reduction was used. CONTRAST: Performed with IV Contrast, patient injected with 100 mL of Isovue 300. Images were obtained from the aortic arch to the mid orbits with IV contrast. There is normal branching pattern of the great vessels on the aortic arch. There is normal contrast o pacification of the carotid arteries and jugular veins. There is plaque formation at the carotid maria isabel ry bifurcations. Trachea appears intact. Epiglottis is normal. Prevertebral soft tissues are intact. Cervical spine is intact. The tonsils and adenoids are within normal limits. The tongue appears prem l. Epiglottis is normal. Thyroid gland is symmetric. Submandibular salivary glands are symmetric. I see no significant cervica l adenopathy. The parotid glands are symmetric. There is normal aeration of the maxillary sinuses. Th ere is no evidence of orbital mass. IMPRESSION: Negative CT scan of the neck. No evidence of any significant cervical or mediastinal adenopathy.
--- NOTE | 2020-07-12 19:41 | CT ---
EXAMINATION TYPE: CT ChestAbdPelvis w con DATE OF EXAM: 07/12/2020 COMPARISON: None HISTORY: Assess adenopathy, concern for mets CT DLP: 1780.1 mGycm Automated exposure control for dose reduction was used. CONTRAST: Performed with IV Contrast, patient injected with 100 mL of Isovue 300. Images were obtained from the thoracic inlet to the floor the pelvis with IV contrast. The lungs are clear of infiltrate. There is no pleural effusion. Heart size is fairly normal. There i s no pericardial effusion. There is no mediastinal adenopathy. There are no hilar masses. There are s ternal wires. There is previous cardiac surgery. There is small hiatal hernia. There are clips from cholecystectomy. Liver and spleen appear intact. Stomach is intact. The bile jae ts are not dilated. There is no evidence of pancreatic mass. There are few pancreatic calcifications in the tail of the pancreas. New graft there is no adrenal mass. Kidneys show satisfactory contrast o pacification. There is no hydronephrosis. Ureters are not dilated. There is no retroperitoneal adenop athy. There is no inguinal hernia. There are a few bilateral inguinal lymph nodes that measure up to 1.5 cm. There is no evidence of a pelvic mass. There is no free fluid in the pelvis. Appendix is not seen. Th ere is no sign of thickened appendix. There is no mesenteric edema. There is no ascites or free air. There is no evidence of mesenteric lisette nopathy. There is normal contrast opacification of the small bowel. There is no evidence of a bowel o bstruction. Thoracic and lumbar vertebra have normal alignment. There is no compression fracture. Bony pelvis is intact. I see no focal bone destruction. The ribs appear intact. Shoulder joints are intact. IMPRESSION: Atherosclerotic vascular disease. No evidence of metastatic disease. No evidence of any significant a denopathy.
[2020-07-12 20:27] LABS: Glucose,Whole Blood 225 mg/dL (75-99)
[2020-07-12] MEDS: ARIPiprazole 5 MG TAB PO SCH (20:38)
[2020-07-12] MEDS: QUEtiapine 50 MG TAB PO SCH (20:39)
[2020-07-12] MEDS: MIRTAZAPINE 45 MG TABLET PO SCH (20:39)
--- NOTE | 2020-07-12 21:26 | P.PN ---
Subjective Progress Note Date: 07/12/20 Patient is feeling better. Her GFR is greater then 50, creat 1.1. Therefore we are proceeding with CTs scans and continuing hydration. She does have a right palpable nodule under her right breast. Hard, non-tender, non moveable. Objective - Vital Signs Vital signs: Vital Signs Temp 97.4 F L 07/12/20 07:34 Pulse 63 07/12/20 08:00 Resp 17 07/12/20 08:00 BP 115/75 07/12/20 07:34 Pulse Ox 99 07/12/20 07:34 Intake & Output 07/11/20 07/12/20 07/12/20 18:59 06:59 18:59 Intake Total 500 Balance 500 Intake: Oral 500 Other: Voiding Method Toilet Toilet # Voids 1 - Exam Gen.: No acute distress. HEENT: No conjunctival pallor or scleral icterus. Mucosa moist. Neck: Supple. Lymph: Small left cervical LAD. Bilateral cervical fullness. No axillary LAD. No obvious breast masses palpable although breast exam limited. Lungs: No respiratory distress. Heart: Regular rate. No lower extremity edema. Abdomen: Soft, nontender. MSK: Appropriate strength in all 4 extremities. Neuro: Alert. Skin: No jaundice. Psych: Appropriate affect. - Labs CBC & Chem 7: 07/12/20 09:32 07/12/20 15:58 Labs: Abnormal Lab Results - Last 24 Hours (Table) 07/11/20 07/11/20 07/11/20 Range/Units 16:49 16:51 16:58 RBC (3.80-5.40) m/uL Hgb (11.4-16.0) gm/dL Hct (34.0-46.0) % Lymphocytes # (1.0-4.8) k/uL POC Glucose (mg/dL) 315 H 260 H 267 H (75-99) mg/dL 07/11/20 07/12/20 07/12/20 Range/Units 20:18 06:52 09:32 RBC 3.58 L (3.80-5.40) m/uL Hgb 11.1 L (11.4-16.0) gm/dL Hct 33.6 L (34.0-46.0) % Lymphocytes # 0.8 L (1.0-4.8) k/uL POC Glucose (mg/dL) 163 H 74 L (75-99) mg/dL 07/12/20 Range/Units 11:28 RBC (3.80-5.40) m/uL Hgb (11.4-16.0) gm/dL Hct (34.0-46.0) % Lymphocytes # (1.0-4.8) k/uL POC Glucose (mg/dL) 203 H (75-99) mg/dL Microbiology - Last 24 Hours (Table) 07/07/20 07:38 Blood Culture - Preliminary Blood No Growth after 120 hours Assessment and Plan Plan: Assessment and Plan Assessment: 1. Inguinal LAD 2. Chest pain 3. Abdominal pain 4. Rectal bleeding 5. YESY 6. Vaginal bleeding Plan: Hydration and proceed with CT scans Palpable nodule under right breast. Discussed in detail with patient Further work-up
[2020-07-13] MEDS: HYDROcodone/APAP 10-325MG 1 EACH TAB PO PRN ×3 (05:49→18:26)
[2020-07-13] MEDS: LEVOTHYROXINE 100 MCG TAB PO SCH (05:49)
[2020-07-13] MEDS: INSULIN DETEMIR (LEVEMIR) 100 UNIT/ML SYR SQ SCH ×2 (07:00→20:32)
[2020-07-13 07:07] LABS: Glucose,Whole Blood 144 mg/dL (75-99)
[2020-07-13] MEDS: INSULIN ASPART (NovoLOG) 100 UNIT/ML VIAL SQ SCH ×4 (07:30→20:32)
[2020-07-13] MEDS: hydrOXYzine pamoate 25 MG CAP PO SCH ×3 (08:57→20:33)
[2020-07-13] MEDS: RANOLAZINE 500 MG TAB.ER.12H PO SCH ×2 (08:57→20:33)
[2020-07-13] MEDS: POTASSIUM CHLORIDE ER 20 MEQ TAB.ER PO SCH (08:57)
[2020-07-13] MEDS: TICAGRELOR 90 MG TAB PO SCH ×2 (08:58→20:34)
[2020-07-13] MEDS: levETIRAcetam 500 MG TAB PO SCH ×2 (08:58→20:34)
[2020-07-13] MEDS: ISOSORBIDE MONONITRATE ER 30 MG TAB.ER.24H PO SCH (08:58)
[2020-07-13] MEDS: SERTRALINE 50 MG TAB PO SCH (08:59)
[2020-07-13] MEDS: METOPROLOL TARTRATE 25 MG TAB PO SCH ×2 (08:59→20:33)
[2020-07-13] MEDS: PANTOPRAZOLE 40 MG TABLET PO SCH (08:59)
[2020-07-13] MEDS: FERROUS SULFATE 325 MG TAB PO SCH ×2 (09:07→20:34)
[2020-07-13] MEDS: HEPARIN SODIUM,PORCINE 5,000 UNIT/ML 1 ML VIAL SQ SCH ×2 (09:07→20:32)
[2020-07-13] MEDS: CYCLOBENZAPRINE 10 MG TAB PO SCH ×3 (09:07→20:33)
[2020-07-13] MEDS: CALCIUM CARBONATE 500 MG CHEWABLE PO SCH (09:07)
[2020-07-13] MEDS: FOLIC ACID 1 MG TAB PO SCH (09:08)
[2020-07-13] MEDS: ATORVASTATIN 80 MG TAB PO SCH (09:08)
[2020-07-13] MEDS: LIDOCAINE 5% PATCH TOPICAL SCH (09:40)
[2020-07-13 10:43] LABS: Ferritin 65.5 ng/mL (10.0-291.0)
[2020-07-13 11:26] LABS: Glucose,Whole Blood 147 mg/dL (75-99)
[2020-07-13 11:30] LABS: % Iron Saturation 34.66 (12.00-45.00); Iron 113 ug/dL (50-170); Rheumatoid Factor, Qnt <4 IU/mL (0-15); Total Iron Binding Capacity 326 ug/dL (228-460); Uric Acid 5.6 mg/dL (2.9-7.7)
[2020-07-13 11:59] LABS: African American GFR (CKD) 59.8 (60.0-200.0); Albumin 4.7 g/dL (3.80-4.90); Albumin/Globulin Ratio 2.24 (1.60-3.17); Anion Gap 12.7 mmol/L (4.00-12.00); BUN/Creat Ratio 21.67 Ratio (12.00-20.00); Calcium 9.1 mg/dL (8.7-10.3); Carbon Dioxide 19.3 mmol/L (21.6-31.8); Globulin 2.1 g/dL (1.6-3.3); Non-African American GFR(CKD) 51.6 (60.0-200.0); Total Bilirubin 0.3 mg/dL (0.2-1.2); Total Protein 6.8 g/dL (6.2-8.2)
[2020-07-13] MEDS: ASPIRIN 81 MG PO SCH (12:21)
[2020-07-13] MEDS: SODIUM CHLORIDE 0.9% 1,000 ML IV SCH (12:21)
[2020-07-13 12:24] LABS: Basophils % (A) 1 %; Eosinophils # (A) 0.1 k/uL (0-0.7); Eosinophils % (A) 2 %; HGB 13.3 gm/dL (11.4-16.0); Lymphocytes # (A) 0.8 k/uL (1.0-4.8); Lymphocytes % (A) 21 %; MCH 31.5 pg (25.0-35.0); MCHC 33.3 g/dL (31.0-37.0); MCV 94.6 fL (80.0-100.0); Mean Platelet Volume 7.4; Monocytes # (A) 0.2 k/uL (0-1.0); Monocytes % (A) 6 %; Neutrophils # (A) 2.7 k/uL (1.3-7.7); Neutrophils % (A) 67 %; Platelet Count 230 k/uL (150-450); RBC 4.23 m/uL (3.80-5.40); RDW 14.7 % (11.5-15.5)
[2020-07-13] MEDS ORDERED: LOPERAMIDE 2 MG CAP PO PRN (14:47)
[2020-07-13] MEDS ORDERED: NITROGLYCERIN SL TABS 0.4 MG TAB SUBLINGUAL PRN (14:47)
[2020-07-13] MEDS ORDERED: SODIUM POLYSTYRENE SULFONATE 15 GM/60 ML BOTTLE PO STA (14:52)
--- NOTE | 2020-07-13 15:41 | P.PN ---
Subjective Progress Note Date: 07/13/20 Principal diagnosis: Adenopathy CT scans reviewed with patient without any significant abnormalities, will further evaluate for abnormal vaginal bleeding (per patient history of uterine cancer) and right breast nodule (possibly physiological) Objective - Vital Signs Vital signs: Vital Signs Temp 97.8 F 07/13/20 14:00 Pulse 61 07/13/20 14:00 Resp 17 07/13/20 14:00 BP 112/70 07/13/20 14:00 Pulse Ox 98 07/13/20 14:00 Intake & Output 07/12/20 07/13/20 07/13/20 18:59 06:59 18:59 Intake Total 240 Balance 240 Weight 74.843 kg Intake: Oral 240 Other: Voiding Method Toilet # Voids 3 # Bowel Movements 0 - Exam Gen.: No acute distress. HEENT: No conjunctival pallor or scleral icterus. Mucosa moist. Neck: Supple. Lymph: Small left cervical LAD. Bilateral cervical fullness. No axillary LAD. No obvious breast masses palpable although breast exam limited. Lungs: No respiratory distress. Heart: Regular rate. No lower extremity edema. Abdomen: Soft, nontender. MSK: Appropriate strength in all 4 extremities. Neuro: Alert. Skin: No jaundice. Psych: Appropriate affect. - Labs CBC & Chem 7: 07/13/20 11:17 07/13/20 06:50 Labs: Abnormal Lab Results - Last 24 Hours (Table) 07/12/20 07/12/20 07/12/20 Range/Units 09:32 15:58 16:40 Lymphocytes # (1.0-4.8) k/uL Potassium 5.5 H (3.5-5.1) mmol/L Carbon Dioxide 21 L (22-30) mmol/L Anion Gap (4.00-12.00) mmol/L BUN 28 H (7-17) mg/dL Est GFR (CKD-EPI)AfAm (60.0-200.0) Est GFR (CKD-EPI)NonAf (60.0-200.0) BUN/Creatinine Ratio 27.00 H (12.00-20.00) Ratio Glucose 181 H 232 H (70-110) mg/dL POC Glucose (mg/dL) 223 H (75-99) mg/dL Calcium 8.6 L (8.7-10.3) mg/dL 07/12/20 07/13/20 07/13/20 Range/Units 20:26 06:50 07:06 Lymphocytes # (1.0-4.8) k/uL Potassium 6.0 H (3.5-5.1) mmol/L Carbon Dioxide 19.3 L (22-30) mmol/L Anion Gap 12.70 H (4.00-12.00) mmol/L BUN (7-17) mg/dL Est GFR (CKD-EPI)AfAm 59.8 L (60.0-200.0) Est GFR (CKD-EPI)NonAf 51.6 L (60.0-200.0) BUN/Creatinine Ratio 21.67 H (12.00-20.00) Ratio Glucose 144 H (70-110) mg/dL POC Glucose (mg/dL) 225 H 144 H (75-99) mg/dL Calcium (8.7-10.3) mg/dL 07/13/20 07/13/20 Range/Units 11:17 11:25 Lymphocytes # 0.8 L (1.0-4.8) k/uL Potassium (3.5-5.1) mmol/L Carbon Dioxide (22-30) mmol/L Anion Gap (4.00-12.00) mmol/L BUN (7-17) mg/dL Est GFR (CKD-EPI)AfAm (60.0-200.0) Est GFR (CKD-EPI)NonAf (60.0-200.0) BUN/Creatinine Ratio (12.00-20.00) Ratio Glucose (70-110) mg/dL POC Glucose (mg/dL) 147 H (75-99) mg/dL Calcium (8.7-10.3) mg/dL Microbiology - Last 24 Hours (Table) 07/07/20 07:38 Blood Culture - Final Blood No Growth after 144 hours Assessment and Plan Plan: Assessment and Plan Assessment: 1. Inguinal LAD 2. Chest pain 3. Abdominal pain 4. Rectal bleeding 5. YESY 6. Vaginal bleeding Plan: CT scans without abnormality noted. Palpable nodule under right breast. Discussed in detail with patient Further work-up with right breast ultrasound. Physician Attest: I have completed the full history and physical and developed the above impression and plan, agree with dictation from SOFTWARE DEPLOYMENT ENGINEER. Dictated as a scribe.
--- NOTE | 2020-07-13 16:20 | PN ---
PROGRESS NOTE Patient is seen for followup for acute kidney injury and hyperkalemia. Her potassium was elevated to 6.0 today. The patient was on potassium supplementation, which was discontinued this morning. It looks like she did get a dose of Kayexalate as well. Renal function is stable with creatinine fluctuating between 0.9 and 1.2 mg/dL. Patient is maintained on IV fluids. Patient had a chest, abdomen, and pelvis CAT scan with IV contrast done yesterday which shows no significant adenopathy or metastatic disease. PHYSICAL EXAMINATION: On examination today, blood pressure 144/84, heart rate 73 per minute. She is afebrile. EXAMINATION OF THE HEART: S1, S2. EXAMINATION OF LUNGS: Bilateral breath sounds are heard. Abdomen is soft, nontender. Examination of lower extremities shows no significant edema. Chronic skin changes noted bilaterally. IRRIGATION EQUIPMENT INSTALLER EXAM: Grossly intact. LABS: Labs show sodium of 139, potassium 6.0, chloride 107, CO2 is 19.3, creatinine 1.2. ASSESSMENT: 1. Acute kidney injury, prerenal, currently maintained on IV fluids. Serum creatinine slightly higher today at 1.2 from 0.9 yesterday. We will continue with IV fluids. Patient has good urine output. There is no evidence of obstruction noted on the CAT scan. UA did show 1+ protein. However, this will need to be further worked up. 2. Hyperkalemia associated with mild acute kidney injury and potassium supplementation and the potassium was discontinued today. The patient also received a dose of Kayexalate. We will recheck it again tomorrow. 3. Mild metabolic acidosis. I will add oral sodium bicarb. 4. Inguinal lymphadenopathy. No evidence of lymphadenopathy on the CT of the abdomen and no evidence of any metastatic disease. PLAN: Continue with IV fluids. Keep off of potassium. Repeat labs in a.m. Monitor renal function for possible contrast nephropathy and add oral sodium bicarb. MMODL / IJN: [id number] /
[2020-07-13 16:38] LABS: Glucose,Whole Blood 192 mg/dL (75-99)
--- NOTE | 2020-07-13 16:41 | PN ---
PROGRESS NOTE DATE OF SERVICE: 07/13/2020 This 54-year-old woman who was admitted with inguinal lymphadenopathy is being closely monitored. This patient had multiple symptomatology, including chest pain and abdominal pain at the time of admission. IV hydration has been carried out for the evaluation of the kidney injury. Otherwise, the patient has some hypokalemia also today. Past medical history reviewed. REVIEW OF SYSTEMS: CARDIOVASCULAR SYSTEM: No angina, palpitations. RESPIRATORY SYSTEM: As mentioned earlier. GI: As mentioned earlier. : No dysuria or retention. NERVOUS SYSTEM: No numbness, weakness. CURRENT MEDICATIONS: Reviewed. They include Am[place], Abilify, aspirin, Lipitor, Tums, Flexeril, Bentyl, iron sulfate, folic acid, Vistaril, NovoLog, Levemir, Imdur, Keppra, Synthroid, Lidoderm, Lopressor, Remeron, Zofran, Protonix, MiraLAX, Seroquel, Senokot, Zoloft, Brilinta. Doses were reviewed. PHYSICAL EXAMINATION: Patient is alert, oriented x3. Pulse is 69, blood pressure 105/69, respirations 16, temperature 97.6, pulse ox 99% on room air. HEENT: Conjunctivae normal. NECK: No jugular venous distention. CARDIOVASCULAR SYSTEM: S1, S2 muffled. RESPIRATORY SYSTEM: Breath sounds diminished at the bases. A few scattered rhonchi and crackles. ABDOMEN: Soft, non-tender. LEGS: No edema. No swelling. NERVOUS SYSTEM: No focal deficit. LABS: CBC within normal limits. Sodium 139, potassium 6. Other labs are noted. Rheumatoid factor less than 4. ASSESSMENT: 1. Acute renal injury, possibly prerenal acute tubular necrosis, improved. 2. Bilateral inguinal lymphadenopathy. 3. Nonsustained ventricular tachycardia. 4. Chest pain, possibly musculoskeletal. 5. Left leg pain. 6. Hyperkalemia, possibly secondary to renal failure. 7. Lower abdominal pain. 8. Diabetes mellitus, type 2, with hypoglycemia. 9. Hypertension. 10.Hypothyroidism. 11.Hyperlipidemia. 12.History of seizures. RECOMMENDATIONS AND DISCUSSION: I recommend to continue current medications, continue with the monitoring, symptomatic treatment. Otherwise at this time I recommend a dose of Kayexalate and a low-potassium diet. Avoid high-potassium diets and continue to monitor. Closely follow. Breast ultrasound per Hematology/Oncology. Further recommendations to follow. MMODL / IJN: [id number] /
[2020-07-13] MEDS: LACTATED RINGERS 1,000 ML IV SCH (16:57)
[2020-07-13 20:24] LABS: Glucose,Whole Blood 166 mg/dL (75-99)
[2020-07-13] MEDS: MIRTAZAPINE 45 MG TABLET PO SCH (20:33)
[2020-07-13] MEDS: SODIUM BICARBONATE TAB 650 MG TAB PO SCH (20:33)
[2020-07-13] MEDS: ARIPiprazole 5 MG TAB PO SCH (20:34)
[2020-07-13] MEDS: QUEtiapine 50 MG TAB PO SCH (20:34)
[2020-07-14] MEDS: HYDROcodone/APAP 10-325MG 1 EACH TAB PO PRN ×2 (05:37→12:55)
[2020-07-14] MEDS: LACTATED RINGERS 1,000 ML IV SCH (05:38)
[2020-07-14] MEDS: LEVOTHYROXINE 75 MCG TAB PO SCH (05:38)
[2020-07-14] MEDS: LEVOTHYROXINE 100 MCG TAB PO SCH (05:38)
[2020-07-14 06:38] LABS: Basophils % (A) 0 %; Eosinophils # (A) 0.1 k/uL (0-0.7); Eosinophils % (A) 3 %; HCT 30.8 % (34.0-46.0); Lymphocytes # (A) 0.9 k/uL (1.0-4.8); Lymphocytes % (A) 26 %; MCH 30.5 pg (25.0-35.0); MCHC 32.2 g/dL (31.0-37.0); Mean Platelet Volume 7.1; Monocytes # (A) 0.2 k/uL (0-1.0); Monocytes % (A) 6 %; Neutrophils # (A) 2.2 k/uL (1.3-7.7); Neutrophils % (A) 61 %; Platelet Count 215 k/uL (150-450); RBC 3.25 m/uL (3.80-5.40); RDW 14.7 % (11.5-15.5); WBC 3.6 k/uL (3.8-10.6)
[2020-07-14 06:44] LABS: HGB 9.9 gm/dL (11.4-16.0)
[2020-07-14 07:12] LABS: Glucose,Whole Blood 165 mg/dL (75-99)
[2020-07-14] MEDS: INSULIN ASPART (NovoLOG) 100 UNIT/ML VIAL SQ SCH ×2 (07:58→12:30)
[2020-07-14] MEDS: METOPROLOL TARTRATE 25 MG TAB PO SCH (07:59)
[2020-07-14] MEDS: FERROUS SULFATE 325 MG TAB PO SCH (07:59)
[2020-07-14] MEDS: SERTRALINE 50 MG TAB PO SCH (07:59)
[2020-07-14] MEDS: SODIUM BICARBONATE TAB 650 MG TAB PO SCH (07:59)
[2020-07-14] MEDS: ATORVASTATIN 80 MG TAB PO SCH (07:59)
[2020-07-14] MEDS: HEPARIN SODIUM,PORCINE 5,000 UNIT/ML 1 ML VIAL SQ SCH (07:59)
[2020-07-14] MEDS: ASPIRIN 81 MG PO SCH (07:59)
[2020-07-14] MEDS: CALCIUM CARBONATE 500 MG CHEWABLE PO SCH (07:59)
[2020-07-14] MEDS: PANTOPRAZOLE 40 MG TABLET PO SCH (08:00)
[2020-07-14] MEDS: FOLIC ACID 1 MG TAB PO SCH (08:00)
[2020-07-14] MEDS: TICAGRELOR 90 MG TAB PO SCH (08:00)
[2020-07-14] MEDS: levETIRAcetam 500 MG TAB PO SCH (08:00)
[2020-07-14] MEDS: hydrOXYzine pamoate 25 MG CAP PO SCH (08:00)
[2020-07-14] MEDS: RANOLAZINE 500 MG TAB.ER.12H PO SCH (08:00)
[2020-07-14] MEDS: CYCLOBENZAPRINE 10 MG TAB PO SCH (08:01)
[2020-07-14] MEDS: INSULIN DETEMIR (LEVEMIR) 100 UNIT/ML SYR SQ SCH (08:03)
[2020-07-14] MEDS: ISOSORBIDE MONONITRATE ER 30 MG TAB.ER.24H PO SCH (08:17)
[2020-07-14 08:30] VITALS: BP 137/82; PULSE 65; RESP 18; TEMP 98.2
--- NOTE | 2020-07-14 09:05 | P.OBCN ---
History of Present Illness Consult date: 07/14/20 Requesting physician: Marina Olivo Reason for consult: other (Postmenopausal vaginal bleeding) Chief complaint: Chest pain, lower abdominal pain History of present illness: This is a 54-year-old female 1 para 1 who initially presented to the emergency room with chest pain. She has been on subcutaneous heparin while she has been admitted. In the process of her workup she was found to have inguinal lymphadenopathy bilaterally. Oncology was consulted for workup. The patient did complain of approximately 1 hour of vaginal bleeding that started yesterday. She states the nurse noted it more anteriorly on her pad and it was purple in color. It lasted about an hour and then has stopped. The patient does give a history of urinary incontinence for some time now. She initially told me that she had a history of uterine cancer at age 22 but in describing the procedures that were done to treat this, it sounds more like cervical dysplasia and that she had cryocautery to treat that. She later had a vaginal hysterectomy with one ovary removed along with anterior and posterior vaginal repair and a bladder suspension at age 27. She states the pathology showed no cancer at that time. She has complained of some lower abdominal cramping for approximately 2 days now. She has not seen a glass blower since her hysterectomy. She denies any other history of abnormal Pap smears since her hysterectomy. OB history: . History of 1 vaginal delivery. Review of Systems Gastrointestinal: Reports abdominal pain (Lower abdominal pain/cramping) Genitourinary: Reports abnormal vaginal bleeding, Reports stress incontinence Menstruation: Reports post hysterectomy, Reports postmenopausal Past Medical History Past Medical History: Coronary Artery Disease (CAD), Chest Pain / Angina, Diabetes Mellitus, Hyperlipidemia, Hypertension, Musculoskeletal Disorder History of Any Multi-Drug Resistant Organisms: None Reported Past Surgical History: Bladder Surgery, Coronary Bypass/CABG, Heart Catheterization, Heart Catheterization With Stent Additional Past Surgical History / Comment(s): CABG in 2013, Mitral valve on 2017, Heart Stent, bilateral leg stent Past Anesthesia/Blood Transfusion Reactions: No Reported Reaction Date of Last Stent Placement:: 06/25/20 Past Psychological History: Bipolar Smoking Status: Current every day smoker Past Alcohol Use History: None Reported Past Drug Use History: None Reported - Past Family History Father Additional Family Medical History / Comment(s): heart disease Medications and Allergies Home Medications Medication Instructions Recorded Confirmed Type ARIPiprazole [Abilify] 5 mg PO HS 05/21/20 07/06/20 History Aspirin 81 mg PO DAILY 05/21/20 07/06/20 History Atorvastatin [Lipitor] 80 mg PO DAILY 05/21/20 07/06/20 History Calcium Carbonate [Calcium] 600 mg PO DAILY 05/21/20 07/06/20 History Cyclobenzaprine [Flexeril] 10 mg PO TID 05/21/20 07/06/20 History Ferrous Sulfate [Iron (65 MG 325 mg PO BID 05/21/20 07/06/20 History Elemental)] Folic Acid 1 mg PO DAILY 05/21/20 07/06/20 History Furosemide [Lasix] 40 mg PO DAILY 05/21/20 07/06/20 History INSULIN ASPART (NovoLOG) [NovoLOG See Protocol SQ ACHS 05/21/20 07/06/20 History (formulary)] Insulin Glargine,Hum.rec.anlog 28 unit SQ BID 05/21/20 07/06/20 History [Lantus Solostar] Isosorbide Mononitrate ER [Imdur] 30 mg PO DAILY 05/21/20 07/06/20 History Levothyroxine Sodium [Synthroid] 175 mcg PO DAILY 05/21/20 07/06/20 History Metoprolol Tartrate [Lopressor] 25 mg PO BID 05/21/20 07/06/20 History Mirtazapine [Remeron] 45 mg PO HS 05/21/20 07/06/20 History Potassium Chloride ER [K-Dur 20] 20 meq PO DAILY 05/21/20 07/06/20 History QUEtiapine [SEROquel] 50 mg PO HS 05/21/20 07/06/20 History Ranolazine [Ranexa] 1,000 mg PO BID 05/21/20 07/06/20 History Sertraline [Zoloft] 50 mg PO DAILY 05/21/20 07/06/20 History Spironolactone 25 mg PO HS 05/21/20 07/06/20 History hydrOXYzine pamoate [Vistaril] 25 mg PO TID 05/21/20 07/06/20 History levETIRAcetam [Keppra] 500 mg PO BID 05/21/20 07/06/20 History lisinopriL [Zestril] 2.5 mg PO DAILY 05/21/20 07/06/20 History Loperamide [Imodium] 2 mg PO QID PRN 06/08/20 07/06/20 History Nitroglycerin Sl Tabs [Nitrostat] 0.4 mg SUBLINGUAL Q5M PRN 90 Days 06/27/20 07/06/20 Rx #100 tab Ticagrelor [Brilinta] 90 mg PO BID tab 06/27/20 07/06/20 Rx HYDROcodone/APAP 5-325MG [[place] 1 tab PO TID PRN 07/06/20 07/06/20 History 5-325] Allergies Allergy/AdvReac Type Severity Reaction Status Date / Time gabapentin Allergy Anaphylaxis Verified 07/06/20 17:53 shellfish derived [Crab] Allergy Rash/Hives Verified 07/06/20 17:53 Exam Osteopathic Statement: *. No significant issues noted on an osteopathic structural exam other than those noted in the History and Physical/Consult. Vital Signs Temp Pulse Resp BP Pulse Ox 07/14/20 07:29 98.2 F 65 18 137/82 95 07/14/20 01:55 98.5 F 76 16 103/67 100 07/13/20 18:57 98.3 F 69 20 125/68 100 07/13/20 14:00 97.8 F 61 17 112/70 98 Intake and Output 07/13/20 07/14/20 07/14/20 22:59 06:59 14:59 Other: # Voids 4 2 # Bowel Movements 1 Perineum: No bleeding or trauma noted. Pelvic: A gloved hand was placed within the vagina. No firmness or masses were palpated at the vaginal cuff. Good anterior support is noted. She is tender in her lower abdomen on bimanual exam. No specific masses are palpated however patient does guard a little bit when I push in this area. No blood is noted on the glove with removal of my gloved hand. Results Result Diagrams: 07/14/20 06:20 07/13/20 06:50 Abnormal Lab Results - Last 24 Hours (Table) 07/13/20 07/13/20 07/13/20 Range/Units 06:50 11:17 11:25 WBC (3.8-10.6) k/uL RBC (3.80-5.40) m/uL Hgb (11.4-16.0) gm/dL Hct (34.0-46.0) % Lymphocytes # 0.8 L (1.0-4.8) k/uL Potassium 6.0 H (3.5-5.5) mmol/L Carbon Dioxide 19.3 L (21.6-31.8) mmol/L Anion Gap 12.70 H (4.00-12.00) mmol/L Est GFR (CKD-EPI)AfAm 59.8 L (60.0-200.0) Est GFR (CKD-EPI)NonAf 51.6 L (60.0-200.0) BUN/Creatinine Ratio 21.67 H (12.00-20.00) Ratio Glucose 144 H (70-110) mg/dL POC Glucose (mg/dL) 147 H (75-99) mg/dL 07/13/20 07/13/20 07/14/20 Range/Units 16:36 20:22 06:20 WBC 3.6 L (3.8-10.6) k/uL RBC 3.25 L (3.80-5.40) m/uL Hgb 9.9 L D (11.4-16.0) gm/dL Hct 30.8 L (34.0-46.0) % Lymphocytes # 0.9 L (1.0-4.8) k/uL Potassium (3.5-5.5) mmol/L Carbon Dioxide (21.6-31.8) mmol/L Anion Gap (4.00-12.00) mmol/L Est GFR (CKD-EPI)AfAm (60.0-200.0) Est GFR (CKD-EPI)NonAf (60.0-200.0) BUN/Creatinine Ratio (12.00-20.00) Ratio Glucose (70-110) mg/dL POC Glucose (mg/dL) 192 H 166 H (75-99) mg/dL 07/14/20 Range/Units 07:10 WBC (3.8-10.6) k/uL RBC (3.80-5.40) m/uL Hgb (11.4-16.0) gm/dL Hct (34.0-46.0) % Lymphocytes # (1.0-4.8) k/uL Potassium (3.5-5.5) mmol/L Carbon Dioxide (21.6-31.8) mmol/L Anion Gap (4.00-12.00) mmol/L Est GFR (CKD-EPI)AfAm (60.0-200.0) Est GFR (CKD-EPI)NonAf (60.0-200.0) BUN/Creatinine Ratio (12.00-20.00) Ratio Glucose (70-110) mg/dL POC Glucose (mg/dL) 165 H (75-99) mg/dL Microbiology - Last 24 Hours (Table) 07/07/20 07:38 Blood Culture - Final Blood No Growth after 144 hours Assessment and Plan (1) Abnormal vaginal bleeding in postmenopausal patient Narrative/Plan: Possible Current Visit: Yes Status: Acute Code(s): N95.0 - POSTMENOPAUSAL BLEEDING SNOMED Code(s): 28656993 Plan: I'm unsure where her bleeding originated from yesterday. There is no evidence of trauma or any active or old blood noted on pelvic exam. She does not have a history of uterine cancer based on the history that I obtain from her. I do not believe any further gynecologic intervention is necessary since she has had a previous hysterectomy for benign reasons. There was no abnormalities found on pelvic CT related to her gynecologic area.
--- NOTE | 2020-07-14 09:17 | USB ---
Reason for exam: clinical finding. US Breast Limited RT Right limited breast ultrasound including focal area of concern, retroareolar and axilla demonstrates no cystic or solid lesion seen. Palpable areas since 12/2019, painful right breast x 1 year. These results were verbally communicated with the patient and result sheet given to the patient on 07/13/20. ASSESSMENT: Negative, BI-RAD 1 RECOMMENDATION: Clinical management of the right breast.
[2020-07-14 11:44] LABS: Glucose,Whole Blood 142 mg/dL (75-99)
[2020-07-14] MEDS: LIDOCAINE 5% PATCH TOPICAL SCH (12:56)
[2020-07-14 13:30] LABS: African American GFR (CKD) 69 (>60 ml/min/1.73 sqM); Anion Gap 5 mmol/L; Blood Urea Nitrogen 25 mg/dL (7-17); Calcium 8.7 mg/dL (8.4-10.2); Carbon Dioxide 23 mmol/L (22-30); Chloride 108 mmol/L (98-107); Glucose 175 mg/dL (74-99); Non-African American GFR(CKD) 60 (>60 ml/min/1.73 sqM); Potassium 4.7 mmol/L (3.5-5.1); Sodium 136 mmol/L (137-145)
--- NOTE | 2020-07-14 14:06 | PN ---
PROGRESS NOTE Patient is seen for followup for acute kidney injury and hyperkalemia. She is currently stable. Serum potassium has improved. She did get a dose of Kayexalate yesterday. Potassium was discontinued. Serum potassium today is down to 4.7. Serum creatinine is at 1.0, which is improved from 1.2. The patient has been maintained on IV fluids. PHYSICAL EXAMINATION: On examination, she is comfortable. Blood pressure is 137/82, heart rate 65 per minute. Patient is afebrile. EXAMINATION OF THE HEART: S1, S2. EXAMINATION OF THE LUNGS: Bilateral breath sounds are heard. Abdomen is soft, nontender. Examination of lower extremities shows edema 1+ bilaterally. Chronic skin changes noted. DIRECTOR ORACLE DATABASE exam is grossly intact. LABS: Labs show sodium of 136, potassium 4.7, chloride 108, BUN 25, creatinine 1.07 hemoglobin 9.9 g/dL. ASSESSMENT: 1. Acute kidney injury prerenal currently improved with IV fluids. The patient also received IV contrast, however, her renal function is stable. 2. Hyperkalemia associated with acute kidney injury, potassium supplementation, currently improved. The patient did receive one dose of Kayexalate. 3. Mild metabolic acidosis, currently on sodium bicarb. 4. Inguinal lymphadenopathy. No evidence of lymphadenopathy or masses in the abdomen. 5. Lower extremity edema. I will discontinue the IV fluids and she should remain off potassium at the time of discharge. MMODL / IJN: [id number] /
[2020-07-14 19:44] LABS: Protein, Total 5.7 g/dL (6.2-8.2)
[2020-07-15 11:48] LABS: Free Kappa Lt Chain Qnt, Serum 4.07 mg/dL (0.33-1.94)
[2020-07-15 13:04] LABS: Albumin 3.51 g/dL (3.80-4.90); Gamma Globulin 0.58 g/dL (0.70-1.50)
[2020-07-15 13:59] LABS: Immunoglobulin M 53.5 mg/dL (40.0-280.0)
--- NOTE | 2020-07-15 16:28 | P.DS ---
Providers Date of admission: 07/08/20 11:59 Expected date of discharge: 07/14/20 Attending physician: Jerson Aguilar Consults: 07/09/20 12:19 Consult Physician Urgent Consulting Provider: Yoel Ellis Consult Reason/Comments: Bilateral inguinal lymphadenopathy Do you want consulting provider notified?: Yes 07/11/20 09:09 Consult Physician Urgent Consulting Provider: Michele Alston Consult Reason/Comments: rosangela, needs ct with contrast Do you want consulting provider notified?: Yes 07/13/20 15:31 Consult Physician Routine Consulting Provider: Hawa Kellogg Consult Reason/Comments: Abnorm vaginal bleeding post zak Do you want consulting provider notified?: Yes Primary care physician: Jerson Aguilar [facility] Course: Final Diagnosis Acute renal injury, possibly prerenal acute tubular necrosis, improved bilateral inguinal lymphadenopathy Nonsustained ventricular tachycardia chest pain, possibly musculoskeletal Left leg pain Hyperkalemia, possibly secondary to renal failure Lower abdominal pain Diabetes mellitus type 2 with hypoglycemia Hypertension Hypothyroidism Hyperlipidemia History of seizures Discharge disposition Patient is being discharged in a stable condition with guarded prognosis to home. Patient will follow-up with Dr. Aguilar in the outpatient setting upon discharge. . Total time taken is greater than 35 minutes. History of present illness This is a 54-year-old male who was recently admitted with inguinal lymphadenopathy and was also found to have acute kidney injury prerenal and was being closely monitored. Patient was seen and evaluated by nephrology along with gynecology as well as oncology. She will be following up with gynecology in the outpatient setting. Patient instructed to follow-up with Dr. Aguilar upon discharge. Patient will continue on sodium bicarb and will have repeat labs in 3 days. Patient will follow-up with nephrology in the outpatient setting. Most recent potassium is 4.7. Patient instructed to hold Lasix, lisinopril, and potassium until primary care follow-up. Currently no reports of chest pain, shortness of breath, or palpitations. Patient is afebrile. No reports of nausea or vomiting and patient is tolerating diet. Patient will be discharged home today. On exam vital signs are stable. Temp is 98.2F, pulse is 65, respirations are 18, blood pressure is 137/82, oxygen saturation is 95% on room air. Cardio S1, S2 are muffled. Respiratory system shows diminished breath sounds at the bases with no wheezing or rhonchi noted. Abdomen is soft and nontender. Nervous system shows no focal deficits. Please refer to medication reconciliation sheet for a list of medications. Patient Condition at Discharge: Stable Plan - Discharge Summary Discharge Rx Participant: No New Discharge Prescriptions: New Lidocaine 5% Patch [Lidoderm 5% Patch] 2 patch TOPICAL DAILY@1300 30 Days #60 patch Pantoprazole [Protonix] 40 mg PO AC-BRKFST 30 Days #30 tablet.dr Sodium Bicarbonate Tab 650 mg PO BID 30 Days #60 tab Continue Folic Acid 1 mg PO DAILY Sertraline [Zoloft] 50 mg PO DAILY Ferrous Sulfate [Iron (65 MG Elemental)] 325 mg PO BID Calcium Carbonate [Calcium] 600 mg PO DAILY Ranolazine [Ranexa] 1,000 mg PO BID QUEtiapine [SEROquel] 50 mg PO HS Mirtazapine [Remeron] 45 mg PO HS INSULIN ASPART (NovoLOG) [NovoLOG (formulary)] See Protocol SQ ACHS Metoprolol Tartrate [Lopressor] 25 mg PO BID Levothyroxine Sodium [Synthroid] 175 mcg PO DAILY levETIRAcetam [Keppra] 500 mg PO BID Aspirin 81 mg PO DAILY hydrOXYzine pamoate [Vistaril] 25 mg PO TID Isosorbide Mononitrate ER [Imdur] 30 mg PO DAILY Cyclobenzaprine [Flexeril] 10 mg PO TID Atorvastatin [Lipitor] 80 mg PO DAILY ARIPiprazole [Abilify] 5 mg PO HS Loperamide [Imodium] 2 mg PO QID PRN PRN Reason: Diarrhea Ticagrelor [Brilinta] 90 mg PO BID tab Nitroglycerin Sl Tabs [Nitrostat] 0.4 mg SUBLINGUAL Q5M PRN 90 Days #100 tab PRN Reason: Chest Pain HYDROcodone/APAP 5-325MG [[place] 5-325] 1 tab PO TID PRN PRN Reason: Pain Changed Insulin Glargine,Hum.rec.anlog [Lantus Solostar] 30 unit SQ BID #0 Discontinued Spironolactone 25 mg PO HS Potassium Chloride ER [K-Dur 20] 20 meq PO DAILY lisinopriL [Zestril] 2.5 mg PO DAILY Furosemide [Lasix] 40 mg PO DAILY Discharge Medication List ARIPiprazole [Abilify] 5 mg PO HS 05/21/20 [History] Aspirin 81 mg PO DAILY 05/21/20 [History] Atorvastatin [Lipitor] 80 mg PO DAILY 05/21/20 [History] Calcium Carbonate [Calcium] 600 mg PO DAILY 05/21/20 [History] Cyclobenzaprine [Flexeril] 10 mg PO TID 05/21/20 [History] Ferrous Sulfate [Iron (65 MG Elemental)] 325 mg PO BID 05/21/20 [History] Folic Acid 1 mg PO DAILY 05/21/20 [History] INSULIN ASPART (NovoLOG) [NovoLOG (formulary)] See Protocol SQ ACHS 05/21/20 [History] Isosorbide Mononitrate ER [Imdur] 30 mg PO DAILY 05/21/20 [History] Levothyroxine Sodium [Synthroid] 175 mcg PO DAILY 05/21/20 [History] Metoprolol Tartrate [Lopressor] 25 mg PO BID 05/21/20 [History] Mirtazapine [Remeron] 45 mg PO HS 05/21/20 [History] QUEtiapine [SEROquel] 50 mg PO HS 05/21/20 [History] Ranolazine [Ranexa] 1,000 mg PO BID 05/21/20 [History] Sertraline [Zoloft] 50 mg PO DAILY 05/21/20 [History] hydrOXYzine pamoate [Vistaril] 25 mg PO TID 05/21/20 [History] levETIRAcetam [Keppra] 500 mg PO BID 05/21/20 [History] Loperamide [Imodium] 2 mg PO QID PRN 06/08/20 [History] Nitroglycerin Sl Tabs [Nitrostat] 0.4 mg SUBLINGUAL Q5M PRN 90 Days #100 tab 06/27/20 [Rx] Ticagrelor [Brilinta] 90 mg PO BID tab 06/27/20 [Rx] HYDROcodone/APAP 5-325MG [[place] 5-325] 1 tab PO TID PRN 07/06/20 [History] Insulin Glargine,Hum.rec.anlog [Lantus Solostar] 30 unit SQ BID #0 07/14/20 [Rx] Lidocaine 5% Patch [Lidoderm 5% Patch] 2 patch TOPICAL DAILY@1300 30 Days #60 patch 07/14/20 [Rx] Pantoprazole [Protonix] 40 mg PO AC-BRKFST 30 Days #30 tablet. 07/14/20 [Rx] Sodium Bicarbonate Tab 650 mg PO BID 30 Days #60 tab 07/14/20 [Rx] Follow up Appointment(s)/Referral(s): Mary Lopez MD [STAFF PHYSICIAN] - 1 Week Jerson Aguilar MD [Primary Care Provider] - 1-2 Days Carlita Garcia MD [STAFF PHYSICIAN] - 07/23/20 9:45 am Ambulatory/Diagnostic Orders: Basic Metabolic Panel [LAB.AMB] Time Frame: 3 Days, Location: None Selected Activity/Diet/Wound Care/Special Instructions: Activity Limited until follow-up Follow-up with primary care provider upon discharge Follow-up with nephrology in the outpatient setting Repeat labs in 2-3 days To need to hold lisinopril, spironolactone, Lasix, and potassium until nephrology and primary care follow-up Continue current diet, low potassium diet Follow-up with gynecology outpatient Discharge Disposition: HOME SELF-CARE
== END 2020-07-14 14:56 | disposition home or self-care (01) | DRG 313 ==
LOC: EC 17:09 → 1SOBS 20:48 → OBSVTOIN 07-08 11:59 → 4SSUR 07-09 12:44
PROVIDERS: ADMIT Internal Medicine; ATTEND Internal Medicine
PROC: 05HF33Z Insertion of Infusion Device into Left Cephalic Vein, Percutaneous Approach (ICD-10-PCS; principal; 2020-07-12 07:30)
DX: R07.89 Other chest pain (principal); N17.0 Acute kidney failure with tubular necrosis; E87.2 Acidosis; I47.2 Ventricular tachycardia; K62.5 Hemorrhage of anus and rectum; E11.22 Type 2 diabetes mellitus with diabetic chronic kidney disease; E03.9 Hypothyroidism, unspecified; E11.40 Type 2 diabetes mellitus with diabetic neuropathy, unspecified; E11.51 Type 2 diabetes mellitus with diabetic peripheral angiopathy without gangrene; E11.649 Type 2 diabetes mellitus with hypoglycemia without coma; E78.5 Hyperlipidemia, unspecified; R59.0 Localized enlarged lymph nodes; E87.5 Hyperkalemia; E87.6 Hypokalemia; G40.909 Epilepsy, unspecified, not intractable, without status epilepticus; F31.9 Bipolar disorder, unspecified; F17.200 Nicotine dependence, unspecified, uncomplicated; N18.9 Chronic kidney disease, unspecified; Z20.828 Contact with and (suspected) exposure to other viral communicable diseases; I12.9 Hypertensive chronic kidney disease with stage 1 through stage 4 chronic kidney disease, or unspecified chronic kidney disease; N95.0 Postmenopausal bleeding; K59.00 Constipation, unspecified; I25.10 Atherosclerotic heart disease of native coronary artery without angina pectoris; Z79.899 Other long term (current) drug therapy; Z79.890 Hormone replacement therapy; Z79.82 Long term (current) use of aspirin; Z79.4 Long term (current) use of insulin; Z79.02 Long term (current) use of antithrombotics/antiplatelets; Z95.5 Presence of coronary angioplasty implant and graft; Z88.8 Allergy status to other drugs, medicaments and biological substances; Z91.013 Allergy to seafood; Z95.1 Presence of aortocoronary bypass graft; Z98.890 Other specified postprocedural states; Z90.710 Acquired absence of both cervix and uterus; Z87.410 Personal history of cervical dysplasia; Z85.42 Personal history of malignant neoplasm of other parts of uterus; Z82.49 Family history of ischemic heart disease and other diseases of the circulatory system
CPT/HCPCS: 36410; 36415; 70491; 71046; 71260; 74177; 76700; 76937; 78582; 80048; 80053; 81001; 82150; 82272; 82607; 82728; 82784; 83540; 83550; 83625; 83690; 83735; 83880; 83883; 83921; 84165; 84484; 84550; 85025; 85045; 85379; 86038; 86334; 86431; 87040; 87635; 93005; 93970; 96374; 96375; 99285

== ENCOUNTER 2020-07-20 13:47 | Inpatient (IN) | payer MEDICARE, OTHER ==
[2020-07-20] MEDS ORDERED: MORPHINE SULFATE 2 MG/ML SYRINGE IVP STA (14:20)
[2020-07-20] MEDS ORDERED: SODIUM CHLORIDE 0.9% 500 ML 500 ML IV STA (14:20)
[2020-07-20] MEDS ORDERED: ONDANSETRON 4 MG/2 ML VIAL IVP STA (14:33)
[2020-07-20 14:43] LABS: Basophils % (A) 1 %; Eosinophils # (A) 0.1 k/uL (0-0.7); Eosinophils % (A) 1 %; HCT 36.5 % (34.0-46.0); HGB 12.3 gm/dL (11.4-16.0); Lymphocytes % (A) 20 %; MCH 31.8 pg (25.0-35.0); MCHC 33.6 g/dL (31.0-37.0); MCV 94.8 fL (80.0-100.0); Monocytes # (A) 0.3 k/uL (0-1.0); Monocytes % (A) 6 %; Neutrophils # (A) 3.7 k/uL (1.3-7.7); Neutrophils % (A) 71 %; Platelet Count 248 k/uL (150-450); RBC 3.85 m/uL (3.80-5.40); RDW 14.3 % (11.5-15.5); WBC 5.2 k/uL (3.8-10.6)
--- NOTE | 2020-07-20 14:51 | ED ---
Chest Pain HPI - General Chief Complaint: Chest Pain Stated Complaint: chest pain Time Seen by Provider: 07/20/20 14:00 Source: patient, EMS Mode of arrival: EMS Limitations: no limitations - History of Present Illness Initial Comments: Patient is a 54-year-old female, history of heart disease, recent heart catheterization, presenting to the emergency Department with complaints of chest pain since approximately 11 AM this morning. Patient states she has taken a total of 6 nitros today, 5 at home prior to EMS arrival and one in the EMS. She states her pain still remains 8/10. Patient denies any radiation. She denies any shortness of breath. She states she also took a few baby aspirins and in the EMS gave her a few more baby aspirins. Patient also states that about 2 AM early this morning she went to sit on her couch and missed and landed on her butt. Patient states she also thinks she hit the back of her head on the nightstand next to her. Patient denies any loss of consciousness, she denies any dizziness. She states her backend is sore. She takes brilinta. She denies any recent fevers, chills, dizziness. She denies any changes in vision. Patient has no further complaints at this time. Upon arrival to the ER, her vital signs are stable, she is in no Acute distress, she is resting on the bed comfortably. - Related Data Home Medications Medication Instructions Recorded Confirmed ARIPiprazole [Abilify] 5 mg PO HS 05/21/20 07/06/20 Aspirin 81 mg PO DAILY 05/21/20 07/06/20 Atorvastatin [Lipitor] 80 mg PO DAILY 05/21/20 07/06/20 Calcium Carbonate [Calcium] 600 mg PO DAILY 05/21/20 07/06/20 Cyclobenzaprine [Flexeril] 10 mg PO TID 05/21/20 07/06/20 Ferrous Sulfate [Iron (65 MG 325 mg PO BID 05/21/20 07/06/20 Elemental)] Folic Acid 1 mg PO DAILY 05/21/20 07/06/20 INSULIN ASPART (NovoLOG) [NovoLOG See Protocol SQ ACHS 05/21/20 07/06/20 (formulary)] Isosorbide Mononitrate ER [Imdur] 30 mg PO DAILY 05/21/20 07/06/20 Levothyroxine Sodium [Synthroid] 175 mcg PO DAILY 05/21/20 07/06/20 Metoprolol Tartrate [Lopressor] 25 mg PO BID 05/21/20 07/06/20 Mirtazapine [Remeron] 45 mg PO HS 05/21/20 07/06/20 QUEtiapine [SEROquel] 50 mg PO HS 05/21/20 07/06/20 Ranolazine [Ranexa] 1,000 mg PO BID 05/21/20 07/06/20 Sertraline [Zoloft] 50 mg PO DAILY 05/21/20 07/06/20 hydrOXYzine pamoate [Vistaril] 25 mg PO TID 05/21/20 07/06/20 levETIRAcetam [Keppra] 500 mg PO BID 05/21/20 07/06/20 Loperamide [Imodium] 2 mg PO QID PRN 06/08/20 07/06/20 HYDROcodone/APAP 5-325MG [[place] 1 tab PO TID PRN 07/06/20 07/06/20 5-325] Lidocaine 5% Patch [Lidoderm 5% 2 patch TOPICAL DAILY@1300 PRN 07/20/20 07/20/20 Patch] Previous Rx's Medication Instructions Recorded Nitroglycerin Sl Tabs [Nitrostat] 0.4 mg SUBLINGUAL Q5M PRN 90 Days 06/27/20 #100 tab Ticagrelor [Brilinta] 90 mg PO BID tab 06/27/20 Insulin Glargine,Hum.rec.anlog 30 unit SQ BID #0 07/14/20 [Lantus Solostar] Pantoprazole [Protonix] 40 mg PO AC-BRKFST 30 Days #30 07/14/20 tablet. Sodium Bicarbonate Tab 650 mg PO BID 30 Days #60 tab 07/14/20 Allergies Allergy/AdvReac Type Severity Reaction Status Date / Time gabapentin Allergy Anaphylaxis Verified 07/20/20 16:12 shellfish derived [Crab] Allergy Rash/Hives Verified 07/20/20 16:12 Review of Systems ROS Statement: Those systems with pertinent positive or pertinent negative responses have been documented in the HPI. ROS Other: All systems not noted in ROS Statement are negative. EKG Findings - EKG Comments: EKG Findings:: Normal sinus rhythm, normal ECG, no signs of acute process. Ventricular rate 77, CT interval 166, QT 416. Similar to previous on 07/07/2020. Past Medical History Past Medical History: Coronary Artery Disease (CAD), Chest Pain / Angina, Diabetes Mellitus, Hyperlipidemia, Hypertension, Musculoskeletal Disorder History of Any Multi-Drug Resistant Organisms: None Reported Past Surgical History: Bladder Surgery, Coronary Bypass/CABG, Heart Catheterization, Heart Catheterization With Stent Additional Past Surgical History / Comment(s): CABG in 2013, Mitral valve on 2016, Heart Stent, bilateral leg stent Past Anesthesia/Blood Transfusion Reactions: No Reported Reaction Date of Last Stent Placement:: 06/25/20 Past Psychological History: Bipolar Smoking Status: Current every day smoker Past Alcohol Use History: None Reported Past Drug Use History: None Reported - Past Family History Father Additional Family Medical History / Comment(s): heart disease General Exam - General Exam Comments Initial Comments: GENERAL: Patient is well-developed and well-nourished. Patient is nontoxic and in no acute distress. HEAD: Atraumatic, normocephalic. EYES: Pupils equal round and reactive to light, extraocular movements intact, sclera anicteric, conjunctiva are normal. Eyelids were unremarkable. ENT: TMs normal, nares patent, oropharynx clear without exudates. Moist mucous membranes. NECK: Normal range of motion, supple without lymphadenopathy or JVD. LUNGS: Unlabored respirations. Breath sounds clear to auscultation bilaterally and equal. No wheezes rales or rhonchi. HEART: Regular rate and rhythm without murmurs, rubs or gallops. ABDOMEN: Soft, nontender, normoactive bowel sounds. No guarding, no rebound. No masses appreciated. : Deferred MUSCULOSKELETAL: Normal extremities with adequate strength and normal range of motion, no pitting or edema. No clubbing or cyanosis. NEUROLOGICAL: Patient is alert and oriented x 3. Motor and sensory are also intact. Cranial nerves II through XII grossly intact. Symmetrical smile. Normal speech, normal gait. PSYCH: Normal mood, normal affect. SKIN: Warm, Dry, normal turgor, no rashes or lesions noted. Limitations: no limitations Course Vital Signs 07/20/20 13:50 Temperature 99.3 F Pulse Rate 79 Respiratory 22 Rate Blood Pressure 145/73 O2 Sat by Pulse 98 Oximetry Chest Pain [facility] Patient is a 54-year-old female history of heart disease presenting via EMS with complaints of chest pain started about 11 AM this morning. She denies any radiation no shortness of breath. Her vital signs are stable upon arrival, her EKG shows no acute process. She claims pain is 8/10, where she is in no acute distress, she is resting complaining the bed. She is taken a total of 6 nitros today, about 6 baby aspirins. Initial labs are stable, glucose is elevated at 366, troponin is normal, BNP is 1400. Chest x-ray shows no acute process. CT of the brain from the fall also shows no acute process. Patient will be admitted for chest pain rule out, serial troponins. Patient accepted by Dr. Aguilar, case discussed with Dr. Westbrook. Disposition Clinical Impression: Chest pain Disposition: ADMITTED IP TO THIS HOSP Condition: Stable Referrals: Jerson Aguilar MD [Primary Care Provider] - 1-2 days Decision Date: 07/20/20 Decision Time: 15:53
[2020-07-20 14:54] LABS: ALT 26 U/L (4-34); AST 20 U/L (14-36); African American GFR (CKD) >90 (>60 ml/min/1.73 sqM); Albumin 4.3 g/dL (3.5-5.0); Alkaline Phosphatase 111 U/L (38-126); Anion Gap 8 mmol/L; Blood Urea Nitrogen 10 mg/dL (7-17); Carbon Dioxide 21 mmol/L (22-30); Chloride 106 mmol/L (98-107); Glucose 366 mg/dL (74-99); Magnesium 1.8 mg/dL (1.6-2.3); Non-African American GFR(CKD) >90 (>60 ml/min/1.73 sqM); Potassium 4.2 mmol/L (3.5-5.1); Sodium 135 mmol/L (137-145); Total Bilirubin 0.6 mg/dL (0.2-1.3); Total Protein 7.1 g/dL (6.3-8.2)
--- NOTE | 2020-07-20 15:05 | XR ---
EXAMINATION TYPE: XR chest 2V DATE OF EXAM: 07/20/2020 COMPARISON: 07/06/2020 INDICATION: Chest pain TECHNIQUE: Frontal and lateral views of the chest are obtained. FINDINGS: The heart size is normal. The pulmonary vasculature is normal. The lungs are clear. IMPRESSION: 1. No acute pulmonary process.
[2020-07-20 15:29] LABS: INR 0.9 (<1.2); Partial Thromboplastin Time 21.2 sec (22.0-30.0); Prothrombin Time 9.8 sec (9.0-12.0)
--- NOTE | 2020-07-20 15:35 | CT ---
EXAMINATION TYPE: CT brain wo con DATE OF EXAM: 07/20/2020 COMPARISON: None HISTORY: 54-year-old female with headache post fall TECHNIQUE: Examination was done in axial plane without intravenous contrast. Coronal and sagittal r econstructions performed. CT DLP: 993.8 mGycm Automated exposure control for dose reduction was used. FINDINGS: There is no evidence of acute intracranial hemorrhage, acute ischemic changes, mass, mass-effect, or extra-axial fluid collection. There is no effacement of cerebral sulci or basal subarachnoid cister ns. Mild ventricular prominence likely from central cerebral atrophy. There is no midline shift. Sorto-white matter distinction is preserved. Moderate patchy white matter hypodensities in both cerebral hemispheres. Small deep white matter infa rcts/encephalomalacia are demonstrated. Paranasal sinuses and mastoid air cells well pneumatized. Orbits and globes are intact. IMPRESSION: 1. Moderate burden of chronic small vessel ischemic disease. Small areas of old deep white matter inf arcts noted. Mild central cerebral atrophy. 2. No acute intracranial abnormality seen.
[2020-07-20] MEDS ORDERED: NITROGLYCERIN SL TABS 0.4 MG TAB SUBLINGUAL PRN (15:50)
[2020-07-20] MEDS: MORPHINE SULFATE 2 MG/ML SYRINGE IVP PRN ×3 (16:37→20:58)
[2020-07-20 21:17] LABS: Glucose,Whole Blood 279 mg/dL (75-99)
[2020-07-21] MEDS: MORPHINE SULFATE 2 MG/ML SYRINGE IVP PRN ×6 (00:39→23:07)
[2020-07-21] MEDS: ARIPiprazole 5 MG TAB PO SCH ×2 (00:39→20:41)
[2020-07-21] MEDS: MIRTAZAPINE 45 MG TABLET PO SCH ×2 (00:39→20:42)
[2020-07-21] MEDS: QUEtiapine 50 MG TAB PO SCH ×2 (00:39→20:42)
[2020-07-21] MEDS ORDERED: NITROGLYCERIN SL TABS 0.4 MG TAB SUBLINGUAL PRN (01:00)
[2020-07-21] MEDS: LEVOTHYROXINE 75 MCG TAB PO SCH (06:45)
[2020-07-21] MEDS: PANTOPRAZOLE 40 MG TABLET PO SCH (06:45)
[2020-07-21] MEDS: LEVOTHYROXINE 100 MCG TAB PO SCH (06:45)
[2020-07-21 08:17] LABS: Glucose,Whole Blood 304 mg/dL (75-99)
[2020-07-21 08:22] LABS: Cholesterol 177 mg/dL (<200); HDL Cholesterol 69 mg/dL (40-60); LDL Cholesterol,Calculated 77 mg/dL (0-99); Triglycerides 156 mg/dL (<150)
[2020-07-21] MEDS ORDERED: DOBUTamine DRIP for NUC MED 500 MG in DEXTROSE/WATER 1 250ML.BAG IV ONE (08:23)
[2020-07-21] MEDS ORDERED: ASPIRIN 325 MG TAB PO SCH (09:00)
[2020-07-21] MEDS ORDERED: LOPERAMIDE 2 MG CAP PO PRN (09:00)
[2020-07-21] MEDS: INSULIN ASPART (NovoLOG) 100 UNIT/ML VIAL SQ SCH ×4 (09:20→20:43)
[2020-07-21] MEDS: levETIRAcetam 500 MG TAB PO SCH ×2 (09:21→20:41)
[2020-07-21] MEDS: SERTRALINE 50 MG TAB PO SCH (09:21)
[2020-07-21] MEDS: ATORVASTATIN 80 MG TAB PO SCH (09:21)
[2020-07-21] MEDS: SODIUM BICARBONATE TAB 650 MG TAB PO SCH ×2 (09:21→20:41)
[2020-07-21] MEDS: ASPIRIN 81 MG PO SCH (09:21)
[2020-07-21] MEDS: FERROUS SULFATE 325 MG TAB PO SCH ×2 (09:21→20:42)
[2020-07-21] MEDS: CALCIUM CARBONATE 500 MG CHEWABLE PO SCH (09:21)
[2020-07-21] MEDS: CYCLOBENZAPRINE 10 MG TAB PO SCH ×3 (09:21→20:43)
[2020-07-21] MEDS: FOLIC ACID 1 MG TAB PO SCH (09:21)
[2020-07-21] MEDS: TICAGRELOR 90 MG TAB PO SCH ×2 (09:22→20:42)
[2020-07-21] MEDS: hydrOXYzine pamoate 25 MG CAP PO SCH ×3 (09:22→20:42)
--- NOTE | 2020-07-21 09:23 | P.HPIM ---
History of Present Illness H&P Date: 07/21/20 Chief Complaint: Chest pain Aminta Sheikh, is a 54 -year-old female who presented to [facility] emergency room with a chief complaint of chest pain, patient describes a pressure sensation in the middle of the sternal area radiating to the left, patient describes a constant pain that's not affected by activity. She was evaluated in the emergency room vital examination on presentation reveals a temperature of 99.3 pulse 79 respiration 22 blood pressure 145/73 pulse ox 98% on room air laboratory data on presentation revealed a glucose of 366 troponin less than 0.012 BNP 1460 and normal CBC chest x-ray revealed no acute pulmonary process, EKG revealed normal sinus rhythm and normal EKG. Patient was admitted to telemetry floor serial EKG and cardiac enzymes were ordered cardiology consultation was requested. Patient was recently admitted to [facility] about 2 weeks ago at that time she had similar complaint of chest pain she underwent cardiac catheterization was angioplasty and stent placement. On review of system patient is complaining of chest pain otherwise she denies any complaints there is no fever or chills no headache or dizziness no shortness of breath no cough no palpitation no nausea or vomiting no abdominal pain no diarrhea no burning with urination no frequency or urgency no hematuria no weakness or numbness in any of the extremities no change in vision speech or gait. Past Medical History Past Medical History: Coronary Artery Disease (CAD), Chest Pain / Angina, Diabetes Mellitus, Hyperlipidemia, Hypertension, Musculoskeletal Disorder History of Any Multi-Drug Resistant Organisms: None Reported Past Surgical History: Bladder Surgery, Coronary Bypass/CABG, Heart Catheterization, Heart Catheterization With Stent Additional Past Surgical History / Comment(s): CABG in 2013, Mitral valve on 2016, Heart Stent, bilateral leg stent Past Anesthesia/Blood Transfusion Reactions: No Reported Reaction Date of Last Stent Placement:: 06/25/20 Past Psychological History: Bipolar Smoking Status: Current every day smoker Past Alcohol Use History: None Reported Past Drug Use History: None Reported - Past Family History Father Additional Family Medical History / Comment(s): heart disease Medications and Allergies Home Medications Medication Instructions Recorded Confirmed Type ARIPiprazole [Abilify] 5 mg PO HS 05/21/20 07/20/20 History Aspirin 81 mg PO DAILY 05/21/20 07/20/20 History Atorvastatin [Lipitor] 80 mg PO DAILY 05/21/20 07/20/20 History Calcium Carbonate [Calcium] 600 mg PO DAILY 05/21/20 07/20/20 History Cyclobenzaprine [Flexeril] 10 mg PO TID 05/21/20 07/20/20 History Ferrous Sulfate [Iron (65 MG 325 mg PO BID 05/21/20 07/20/20 History Elemental)] Folic Acid 1 mg PO DAILY 05/21/20 07/20/20 History INSULIN ASPART (NovoLOG) [NovoLOG See Protocol SQ ACHS 05/21/20 07/20/20 History (formulary)] Isosorbide Mononitrate ER [Imdur] 30 mg PO DAILY 05/21/20 07/20/20 History Levothyroxine Sodium [Synthroid] 175 mcg PO DAILY 05/21/20 07/20/20 History Metoprolol Tartrate [Lopressor] 25 mg PO BID 05/21/20 07/20/20 History Mirtazapine [Remeron] 45 mg PO HS 05/21/20 07/20/20 History QUEtiapine [SEROquel] 50 mg PO HS 05/21/20 07/20/20 History Ranolazine [Ranexa] 1,000 mg PO BID 05/21/20 07/20/20 History Sertraline [Zoloft] 50 mg PO DAILY 05/21/20 07/20/20 History hydrOXYzine pamoate [Vistaril] 25 mg PO TID 05/21/20 07/20/20 History levETIRAcetam [Keppra] 500 mg PO BID 05/21/20 07/20/20 History Loperamide [Imodium] 2 mg PO QID PRN 06/08/20 07/20/20 History Nitroglycerin Sl Tabs [Nitrostat] 0.4 mg SUBLINGUAL Q5M PRN 90 Days 06/27/20 07/20/20 Rx #100 tab Ticagrelor [Brilinta] 90 mg PO BID tab 06/27/20 07/20/20 Rx HYDROcodone/APAP 5-325MG [[place] 1 tab PO TID PRN 07/06/20 07/20/20 History 5-325] Insulin Glargine,Hum.rec.anlog 30 unit SQ BID #0 07/14/20 07/20/20 Rx [Lantus Solostar] Pantoprazole [Protonix] 40 mg PO AC-BRKFST 30 Days #30 07/14/20 07/20/20 Rx tablet. Sodium Bicarbonate Tab 650 mg PO BID 30 Days #60 tab 07/14/20 07/20/20 Rx Lidocaine 5% Patch [Lidoderm 5% 2 patch TOPICAL DAILY@1300 PRN 07/20/20 07/20/20 History Patch] Allergies Allergy/AdvReac Type Severity Reaction Status Date / Time gabapentin Allergy Anaphylaxis Verified 07/20/20 16:12 shellfish derived [Crab] Allergy Rash/Hives Verified 07/20/20 16:12 Physical Exam Vitals: Vital Signs Temp Pulse Pulse Resp BP BP Pulse Ox 07/21/20 04:00 98.0 F 84 16 112/62 99 07/21/20 02:00 84 16 07/21/20 00:00 98.1 F 78 16 127/79 98 07/20/20 20:08 98.1 F 89 18 148/74 99 07/20/20 20:00 97.6 F 77 16 138/78 96 07/20/20 18:34 98.7 F 98 18 144/68 98 07/20/20 16:38 70 18 145/77 100 07/20/20 16:20 97.6 F 77 16 138/78 96 07/20/20 13:50 99.3 F 79 22 145/73 98 Intake and Output 07/20/20 07/21/20 07/21/20 22:59 06:59 14:59 Intake Total 240 Balance 240 Intake: Oral 240 Other: # Voids 0 Weight 71.668 kg 79.2 kg On physical exam patient is alert and oriented 3 in no apparent distress HEENT head normocephalic and atraumatic Neck is supple no JVD no goiter no lymphadenopathy no carotid bruit Chest exam reveals a few scattered crackles bilaterally no wheezing Cardiac exam reveals regular heart sounds S1 and S2 no gallops no murmurs abdomen is soft nontender no organomegaly with normal bowel sounds Extremity exam reveals mild edema no cyanosis or clubbing, there is a scabbed ulcer on the right pretibial area Neurological examination reveals no gross focal deficits Results CBC & Chem 7: 07/20/20 14:32 07/20/20 14:32 Labs: Abnormal Lab Results - Last 24 Hours (Table) 07/20/20 07/20/20 07/20/20 Range/Units 14:32 15:05 21:14 APTT 21.2 L (22.0-30.0) sec Sodium 135 L (137-145) mmol/L Carbon Dioxide 21 L (22-30) mmol/L Glucose 366 H (74-99) mg/dL POC Glucose (mg/dL) 279 H (75-99) mg/dL Triglycerides (<150) mg/dL HDL Cholesterol (40-60) mg/dL 07/21/20 07/21/20 Range/Units 07:37 08:15 APTT (22.0-30.0) sec Sodium (137-145) mmol/L Carbon Dioxide (22-30) mmol/L Glucose (74-99) mg/dL POC Glucose (mg/dL) 304 H (75-99) mg/dL Triglycerides 156 H (<150) mg/dL HDL Cholesterol 69 H (40-60) mg/dL Thrombosis Risk Factor Assmnt - Choose All That Apply Any of the Below Risk Factors Present?: Yes Each Factor Represents 1 point: Age 41-60 years, Obesity (BMI >25) Other Risk Factors: No Thrombosis Risk Factor Assessment Total Risk Factor Score: 2 Thrombosis Risk Factor Assessment Level: Low Risk Assessment and Plan Plan: 1. Recurrent episodes of chest pain, patient was admitted to weeks ago at that time she had angioplasty and stent placement, serial EKG and cardiac enzymes ordered cardiology consultation requested 2. Underlying history of hypertension 3. Underlying history of hyperlipidemia 4. Underlying history of insulin-dependent diabetes mellitus 5. Underlying history of seizure disorder maintained on Keppra 6. Underlying history of hypothyroidism At this time awaiting serial EKG and cardiac enzymes awaiting cardiology input will follow closely
--- NOTE | 2020-07-21 10:46 | CONS ---
CONSULTATION Mrs. Sheikh is a 54-year-old female known history of mitral valve replacement with a bioprosthetic valve, history of coronary artery disease, status post most recently stenting of the right PDA by Dr. Murillo on the 25 of June with multiple admissions to the hospital with chest discomfort who presented with symptoms of chest discomfort. According to her, she was trying to sit on the couch when she fell and injured her back and has been complaining of chest discomfort. The discomfort has been constant, continuous without any changes and without any respirophasic pattern to it. She denies any clear PND. No orthopnea. She has some peripheral edema. No syncope. She denies any arrhythmia. In the past, her left ventricular systolic function was normal and her bioprosthetic valve was normal. The patient unfortunately continues to smoke. She says that the pattern of the discomfort did not change significantly after the stenting. Her coronary risk factors are remarkable for the smoking. She has a history of hypertension, history of diabetes and hyperlipidemia. MEDICATIONS: Her medications include aspirin once a day, Brilinta 90 mg twice a day, Ranexa 1 gram twice a day, Protonix, Seroquel, Remeron, Lopressor 25 mg twice a day, Synthroid 0.175 mg daily, insulin, iron, Flexeril, and Abilify. REVIEW OF SYSTEMS: RESPIRATORY SYSTEM: She has dyspnea on exertion. No recent wheezing or cough. GI SYSTEM: No nausea, no vomiting. No GI bleeding. SYSTEM: No dysuria or hematuria. NERVOUS SYSTEM: No history of stroke or seizure. PHYSICAL EXAMINATION: A 54-year-old female, alert, oriented, in no apparent distress. Appears older than stated age. Blood pressure 112/60 with the heart rate in the 80s. LUNGS: Clear. HEART: Regular rate and rhythm. S1, S2. No S3 with a systolic murmur. No diastolic murmur. No rub. ABDOMEN: Soft, nontender. Positive bowel sounds. No organomegaly. EXTREMITIES: Chronic discoloration with some mild decrease in the distal pulses, 1+ edema with mild ulceration. LAB DATA: Lab data revealed troponin less than 0.012. BUN and creatinine of 10 and 0.64. Potassium 4.2. Hemoglobin of 12.3. EKG revealed sinus mechanism with no acute ST-segment changes. Chest x-ray shows no acute infiltrate. The brain CT reveals no acute bleeding. IMPRESSION: 1. Chest discomfort atypical for ischemic heart disease, status post recent percutaneous revascularization and prior intervention prior to that. 2. History of ongoing chest pain. 3. Status post mitral valve replacement. 4. Chronic tobacco use. 5. Hypertension. 6. Hyperlipidemia. 7. Diabetes mellitus. RECOMMENDATION: Her symptoms of chest discomfort appears to be atypical for ischemic heart disease. I doubt that the patient had an acute closure for stent, especially with the absence of any enzymatic changes. I will obtain a dobutamine stress echocardiogram. If there is no evidence of ischemia, then I believe she should be able to be discharged home today and followed as an outpatient with Dr. Murillo. Thank you for this consult. We will follow with you. MMODL / IJN: [id number] /
[2020-07-21 12:05] LABS: Glucose,Whole Blood 166 mg/dL (75-99)
[2020-07-21] MEDS ORDERED: LIDOCAINE 5% PATCH TOPICAL PRN (13:00)
[2020-07-21] MEDS: INSULIN DETEMIR (LEVEMIR) 100 UNIT/ML SYR SQ SCH ×2 (13:38→20:43)
[2020-07-21] MEDS: ISOSORBIDE MONONITRATE ER 30 MG TAB.ER.24H PO SCH (13:38)
[2020-07-21] MEDS: METOPROLOL TARTRATE 25 MG TAB PO SCH ×2 (13:38→20:42)
[2020-07-21] MEDS: RANOLAZINE 500 MG TAB.ER.12H PO SCH ×2 (13:38→20:42)
[2020-07-21] MEDS: HYDROcodone/APAP 5-325MG 1 EACH TAB PO PRN (16:09)
[2020-07-21 17:00] LABS: Glucose,Whole Blood 184 mg/dL (75-99)
[2020-07-21 17:49] LABS: Hemoglobin A1C 9.9 % (4.0-6.0)
[2020-07-21 20:19] LABS: Glucose,Whole Blood 168 mg/dL (75-99)
[2020-07-22] MEDS ORDERED: DEXTROSE 50% SYRINGE 50 ML IVP ONE ×2 (05:57→10:27)
[2020-07-22 05:58] LABS: Glucose,Whole Blood 47 mg/dL (75-99)
[2020-07-22] MEDS ORDERED: DOBUTamine DRIP for NUC MED 500 MG in DEXTROSE/WATER 1 250ML.BAG IV ONE (06:00)
[2020-07-22 06:21] LABS: Glucose,Whole Blood 165 mg/dL (75-99)
--- NOTE | 2020-07-22 10:20 | PN ---
PROGRESS NOTE Mrs. Sheikh is a 54-year-old female with a known history of coronary artery disease status post percutaneous revascularization who presented with symptoms of chest discomfort that was somewhat persistent unrelated to physical activity. This is not her first admission after her recent percutaneous revascularization. Her cardiac enzymes were negative. She continues to have some pain, although slightly better today. She denies any dizziness or palpitation. She continues to be on aspirin once a day, Lipitor 80 mg daily, insulin, isosorbide mononitrate 30 mg daily, levothyroxine, metoprolol tartrate 25 mg twice a day, Ranexa 1 gram twice a day, Brilinta 90 mg twice a day. PHYSICAL EXAMINATION: Blood pressure 105/50 with the heart rate in 50s. LUNGS: Clear. HEART: Regular rate and rhythm. S1, S2. No S3. No rub. ABDOMEN: Soft, nontender. EXTREMITIES: Trace edema. IMPRESSION: 1. Chest discomfort atypical for ischemic heart disease, probably noncardiac. 2. Status post multiple stenting. 3. History of hypertension. 4. Hyperlipidemia. 5. Diabetes mellitus. RECOMMENDATION: Patient was scheduled to undergo a dobutamine stress echocardiogram yesterday, but that was not done because of the inability to obtain an intravenous access. Today, she has intravenous access. We will proceed with a dobutamine stress echocardiogram. If there is no evidence of stress-induced ischemia, I would expect she should be able to be discharged home today. ROSHAN / JENNIFER: [id number] /
[2020-07-22 10:28] LABS: Glucose,Whole Blood 51 mg/dL (75-99)
[2020-07-22 10:49] LABS: Glucose,Whole Blood 78 mg/dL (75-99)
[2020-07-22] MEDS ORDERED: ATROPINE SULFATE 0.1 MG/ML 10ML SYRINGE ONE (11:45)
[2020-07-22] MEDS: INSULIN ASPART (NovoLOG) 100 UNIT/ML VIAL SQ SCH ×4 (11:49→21:45)
[2020-07-22 12:46] LABS: Glucose,Whole Blood 96 mg/dL (75-99)
[2020-07-22] MEDS: MORPHINE SULFATE 2 MG/ML SYRINGE IVP PRN ×3 (12:50→21:45)
[2020-07-22] MEDS: RANOLAZINE 500 MG TAB.ER.12H PO SCH ×2 (12:54→21:44)
[2020-07-22] MEDS: CYCLOBENZAPRINE 10 MG TAB PO SCH ×3 (12:55→21:44)
[2020-07-22] MEDS: hydrOXYzine pamoate 25 MG CAP PO SCH ×3 (12:55→21:44)
[2020-07-22] MEDS: SODIUM BICARBONATE TAB 650 MG TAB PO SCH ×2 (12:55→21:44)
[2020-07-22] MEDS: PANTOPRAZOLE 40 MG TABLET PO SCH (12:55)
[2020-07-22] MEDS: LEVOTHYROXINE 75 MCG TAB PO SCH (12:55)
[2020-07-22] MEDS: ISOSORBIDE MONONITRATE ER 30 MG TAB.ER.24H PO SCH (12:56)
[2020-07-22] MEDS: FERROUS SULFATE 325 MG TAB PO SCH ×2 (12:56→21:45)
[2020-07-22] MEDS: ATORVASTATIN 80 MG TAB PO SCH (12:56)
[2020-07-22] MEDS: ASPIRIN 81 MG PO SCH (12:56)
[2020-07-22] MEDS: levETIRAcetam 500 MG TAB PO SCH ×2 (12:56→21:45)
[2020-07-22] MEDS: METOPROLOL TARTRATE 25 MG TAB PO SCH ×2 (12:56→21:44)
[2020-07-22] MEDS: LEVOTHYROXINE 100 MCG TAB PO SCH (12:56)
[2020-07-22] MEDS: SERTRALINE 50 MG TAB PO SCH (12:57)
[2020-07-22] MEDS: INSULIN DETEMIR (LEVEMIR) 100 UNIT/ML SYR SQ SCH ×2 (12:57→21:45)
[2020-07-22] MEDS: FOLIC ACID 1 MG TAB PO SCH (12:57)
[2020-07-22] MEDS: TICAGRELOR 90 MG TAB PO SCH ×2 (12:57→21:45)
[2020-07-22] MEDS: CALCIUM CARBONATE 500 MG CHEWABLE PO SCH (12:57)
[2020-07-22 14:00] VITALS: BMI 30.1
--- NOTE | 2020-07-22 15:59 | ECHOS ---
STRESS ECHOCARDIOGRAM DOBUTAMINE STRESS ECHO LUMASON: Vial INDICATIONS: Chest pain. MEDICATIONS: BASELINE HEART RATE: 57 BASELINE BLOOD PRESSURE: 140/103 MAXIMUM HEART RATE: 127 MAXIMUM BLOOD PRESSURE: 188/64 85% MPHR: 142 100% MPHR: 167 METS: MAXIMUM STAGE REACHED: TOTAL EXERCISE TIME: CLINICAL INFORMATION: Baseline EKG shows sinus rhythm, normal axis, normal intervals. Patient was given intravenous dobutamine over a period of 16 minutes as per protocol. The patient also received 1 mg of atropine, attaining only 79% of predicted maximal heart rate. There was no ST-segment depression at this level. Baseline echo shows normal left ventricular size, wall motion and systolic function. Post dobutamine infusion, there is normal hyperdynamic response of all segments of myocardium noted. CONCLUSIONS: Inconclusive dobutamine echo secondary to inability to attain target heart rate. ZUHAIRL / IJN: [id number] /
[2020-07-22 17:08] LABS: Glucose,Whole Blood 90 mg/dL (75-99)
--- NOTE | 2020-07-22 18:25 | P.PN ---
Subjective Progress Note Date: 07/22/20 Aminta Sheikh, is a 54 -year-old female who presented to [facility] emergency room with a chief complaint of chest pain, patient describes a pressure sensation in the middle of the sternal area radiating to the left, patient describes a constant pain that's not affected by activity. She was evaluated in the emergency room vital examination on presentation reveals a temperature of 99.3 pulse 79 respiration 22 blood pressure 145/73 pulse ox 98% on room air laboratory data on presentation revealed a glucose of 366 troponin less than 0.012 BNP 1460 and normal CBC chest x-ray revealed no acute pulmonary process, EKG revealed normal sinus rhythm and normal EKG. Patient was admitted to telemetry floor serial EKG and cardiac enzymes were ordered cardiology consultation was requested. Patient was recently admitted to [facility] about 2 weeks ago at that time she had similar complaint of chest pain she underwent cardiac catheterization was angioplasty and stent placement. On 07/22/2020 patient was seen and examined on the medical floor she is alert and oriented 3 in no apparent distress she is still complaining of episodes of chest pain otherwise she denies any complaints there is no fever or chills no headache or dizziness no palpitation no cough no nausea or vomiting no abdominal pain no diarrhea no blood in the stools no burning was urination no frequency or urgency and no hematuria. Patient underwent dobutamine echo stress test today which was read as inconclusive due to patient not attaining target heart rate. At this time will continue to monitor patient awaiting further evaluation by cardiology in a.m. Objective - Vital Signs Vital signs: Vital Signs Temp 98.0 F 07/22/20 15:45 Pulse 84 07/22/20 16:00 Resp 16 07/22/20 16:00 BP 160/84 07/22/20 15:45 Pulse Ox 99 07/22/20 15:45 Intake & Output 07/21/20 07/22/20 07/22/20 18:59 06:59 18:59 Intake Total 120 240 Balance 120 240 Weight 79.7 kg 79.7 kg Intake: Oral 120 240 Other: # Voids 3 0 1 # Bowel Movements 0 - Exam On physical exam patient is alert and oriented 3 in no apparent distress HEENT head normocephalic and atraumatic Neck is supple no JVD no goiter no lymphadenopathy no carotid bruit Chest exam reveals a few scattered crackles bilaterally no wheezing Cardiac exam reveals regular heart sounds S1 and S2 no gallops no murmurs abdomen is soft nontender no organomegaly with normal bowel sounds Extremity exam reveals mild edema no cyanosis or clubbing, there is a scabbed ulcer on the right pretibial area Neurological examination reveals no gross focal deficits - Labs CBC & Chem 7: 07/20/20 14:32 07/20/20 14:32 Labs: Abnormal Lab Results - Last 24 Hours (Table) 07/21/20 07/22/20 07/22/20 Range/Units 20:17 05:55 06:19 POC Glucose (mg/dL) 168 H 47 L 165 H (75-99) mg/dL 07/22/20 Range/Units 10:25 POC Glucose (mg/dL) 51 L (75-99) mg/dL Assessment and Plan Plan: 1. Recurrent episodes of chest pain, patient was admitted to weeks ago at that time she had angioplasty and stent placement, serial EKG and cardiac enzymes ordered cardiology consultation requested 2. Underlying history of hypertension 3. Underlying history of hyperlipidemia 4. Underlying history of insulin-dependent diabetes mellitus 5. Underlying history of seizure disorder maintained on Keppra 6. Underlying history of hypothyroidism At this time awaiting serial EKG and cardiac enzymes awaiting cardiology input will follow closely
[2020-07-22 20:07] LABS: Glucose,Whole Blood 224 mg/dL (75-99)
[2020-07-22] MEDS: HYDROcodone/APAP 5-325MG 1 EACH TAB PO PRN (20:28)
[2020-07-22] MEDS: MIRTAZAPINE 45 MG TABLET PO SCH (21:45)
[2020-07-22] MEDS: QUEtiapine 50 MG TAB PO SCH (21:45)
[2020-07-22] MEDS: ARIPiprazole 5 MG TAB PO SCH (21:45)
[2020-07-23 02:00] LABS: Glucose,Whole Blood 163 mg/dL (75-99)
[2020-07-23] MEDS: MORPHINE SULFATE 2 MG/ML SYRINGE IVP PRN ×3 (03:28→12:02)
[2020-07-23 06:18] LABS: Glucose,Whole Blood 143 mg/dL (75-99)
[2020-07-23] MEDS: PANTOPRAZOLE 40 MG TABLET PO SCH (06:58)
[2020-07-23] MEDS: LEVOTHYROXINE 100 MCG TAB PO SCH (06:58)
[2020-07-23] MEDS: LEVOTHYROXINE 75 MCG TAB PO SCH (06:58)
[2020-07-23] MEDS: INSULIN ASPART (NovoLOG) 100 UNIT/ML VIAL SQ SCH ×2 (06:58→12:02)
[2020-07-23] MEDS: FERROUS SULFATE 325 MG TAB PO SCH (07:43)
[2020-07-23] MEDS: ASPIRIN 81 MG PO SCH (07:43)
[2020-07-23] MEDS: CALCIUM CARBONATE 500 MG CHEWABLE PO SCH (07:43)
[2020-07-23] MEDS: CYCLOBENZAPRINE 10 MG TAB PO SCH ×2 (07:43→15:33)
[2020-07-23] MEDS: ATORVASTATIN 80 MG TAB PO SCH (07:43)
[2020-07-23] MEDS: FOLIC ACID 1 MG TAB PO SCH (07:43)
[2020-07-23] MEDS: ISOSORBIDE MONONITRATE ER 30 MG TAB.ER.24H PO SCH (07:44)
[2020-07-23] MEDS: levETIRAcetam 500 MG TAB PO SCH (07:44)
[2020-07-23] MEDS: METOPROLOL TARTRATE 25 MG TAB PO SCH (07:44)
[2020-07-23] MEDS: TICAGRELOR 90 MG TAB PO SCH (07:44)
[2020-07-23] MEDS: SODIUM BICARBONATE TAB 650 MG TAB PO SCH (07:44)
[2020-07-23] MEDS: hydrOXYzine pamoate 25 MG CAP PO SCH ×2 (07:44→15:33)
[2020-07-23] MEDS: INSULIN DETEMIR (LEVEMIR) 100 UNIT/ML SYR SQ SCH (07:45)
[2020-07-23] MEDS: SERTRALINE 50 MG TAB PO SCH (07:45)
[2020-07-23] MEDS: RANOLAZINE 500 MG TAB.ER.12H PO SCH (07:45)
[2020-07-23 07:57] VITALS: RESP 18
[2020-07-23] MEDS ORDERED: ENOXAPARIN 40 MG/0.4 ML SYRINGE SQ SCH (09:30)
[2020-07-23 10:39] LABS: Basophils # (A) 0.1 k/uL (0-0.2); Basophils % (A) 1 %; Eosinophils # (A) 0.2 k/uL (0-0.7); Eosinophils % (A) 4 %; HCT 37.7 % (34.0-46.0); HGB 12.3 gm/dL (11.4-16.0); Lymphocytes # (A) 0.8 k/uL (1.0-4.8); Lymphocytes % (A) 19 %; MCH 31.2 pg (25.0-35.0); MCHC 32.6 g/dL (31.0-37.0); MCV 95.7 fL (80.0-100.0); Mean Platelet Volume 7.3; Monocytes # (A) 0.3 k/uL (0-1.0); Monocytes % (A) 7 %; Neutrophils # (A) 2.6 k/uL (1.3-7.7); Neutrophils % (A) 67 %; Platelet Count 200 k/uL (150-450); RBC 3.94 m/uL (3.80-5.40); RDW 14.5 % (11.5-15.5); WBC 3.9 k/uL (3.8-10.6)
[2020-07-23 10:49] LABS: ALT 19 U/L (4-34); AST 22 U/L (14-36); African American GFR (CKD) >90 (>60 ml/min/1.73 sqM); Alkaline Phosphatase 82 U/L (38-126); Anion Gap 7 mmol/L; Blood Urea Nitrogen 14 mg/dL (7-17); Calcium 9.1 mg/dL (8.4-10.2); Carbon Dioxide 27 mmol/L (22-30); Chloride 105 mmol/L (98-107); Glucose 200 mg/dL (74-99); Non-African American GFR(CKD) 79 (>60 ml/min/1.73 sqM); Potassium 4.2 mmol/L (3.5-5.1); Sodium 139 mmol/L (137-145); Total Bilirubin 0.4 mg/dL (0.2-1.3); Total Protein 6.9 g/dL (6.3-8.2)
--- NOTE | 2020-07-23 11:15 | US ---
EXAMINATION TYPE: US venous doppler duplex LE LT DATE OF EXAM: 07/23/2020 9:55 AM COMPARISON: NONE CLINICAL HISTORY: calf pain rule out DVT. SIDE PERFORMED: Left TECHNIQUE: The lower extremity deep venous system is examined utilizing real time linear array sonog zeferino with graded compression, doppler sonography and color-flow sonography. VESSELS IMAGED: Common Femoral Vein Deep Femoral Vein Greater Saphenous Vein * Femoral Vein Popliteal Vein Small Saphenous Vein * Proximal Calf Veins (* superficial vessels) Left Leg: Negative for DVT There is some edema lower calf. IMPRESSION: 1. Left lower extremity ultrasound negative for deep venous thrombosis.
[2020-07-23 11:30] VITALS: BP 184/80; PULSE 62; TEMP 97.8
--- NOTE | 2020-07-23 11:45 | PN ---
PROGRESS NOTE Mrs. Sheikh is a 54-year-old female who has a history of coronary artery disease, presented with symptoms of chest discomfort with no evidence of enzymatic changes. She underwent dobutamine stress echocardiogram yesterday that revealed no evidence of inducible ischemia at 79% maximum predicted heart rate. She continues to have constant chest discomfort without significant exertional pattern. Hemodynamically, she is stable and she has no arrhythmia. She continues to be on aspirin once a day, Lipitor 80 mg daily, insulin, isosorbide mononitrate 30 mg daily, metoprolol tartrate 25 mg twice a day, Ranexa 1000 mg twice a day, and Brilinta. PHYSICAL EXAMINATION: Blood pressure 140/70 with the heart rate in the 70s. LUNGS: Clear. HEART: Regular rate and rhythm. S1, S2. No S3. No rub. ABDOMEN: Soft, nontender. EXTREMITIES: No edema. IMPRESSION: 1. Chest discomfort atypical for ischemic heart disease. Patient had persistent symptoms, but had no evidence of inducible ischemia with the pain making the likelihood of ischemic etiology very low. 2. History of coronary disease. 3. History of hyperlipidemia. 4. Diabetes mellitus. RECOMMENDATION: From the cardiac standpoint the patient can be discharged home and followed as an outpatient with Dr. Murillo. MMROBERTOL / EDGARDON: [id number] /
[2020-07-23 11:49] LABS: Glucose,Whole Blood 183 mg/dL (75-99)
--- NOTE | 2020-07-23 13:54 | P.DS ---
Providers Date of admission: 07/23/20 07:55 Expected date of discharge: 07/23/20 Attending physician: Jerson Aguilar Consults: 07/20/20 15:50 Consult Physician Urgent Consulting Provider: Jo Ann Zelaya Consult Reason/Comments: chest pain Do you want consulting provider notified?: Yes Primary care physician: Jerson Lauren [place] [facility] Course: Diagnosis on discharge: 1. Recurrent episodes of chest pain, patient was admitted to weeks ago at that time she had angioplasty and stent placement, serial EKG and cardiac enzymes ordered cardiology consultation requested 2. Underlying history of hypertension 3. Underlying history of hyperlipidemia 4. Underlying history of insulin-dependent diabetes mellitus 5. Underlying history of seizure disorder maintained on Keppra 6. Underlying history of hypothyroidism Hospital course: Aminta Sheikh, is a 54 -year-old female who presented to [facility] emergency room with a chief complaint of chest pain, patient describes a pressure sensation in the middle of the sternal area radiating to the left, patient describes a constant pain that's not affected by activity. She was evaluated in the emergency room vital examination on presentation reveals a temperature of 99.3 pulse 79 respiration 22 blood pressure 145/73 pulse ox 98% on room air laboratory data on presentation revealed a glucose of 366 troponin less than 0.012 BNP 1460 and normal CBC chest x-ray revealed no acute pulmonary process, EKG revealed normal sinus rhythm and normal EKG. Patient was admitted to telemetry floor serial EKG and cardiac enzymes were ordered cardiology consultation was requested. Patient was recently admitted to [facility] about 2 weeks ago at that time she had similar complaint of chest pain she underwent cardiac catheterization was angioplasty and stent placement. On 07/22/2020 patient was seen and examined on the medical floor she is alert and oriented 3 in no apparent distress she is still complaining of episodes of chest pain otherwise she denies any complaints there is no fever or chills no headache or dizziness no palpitation no cough no nausea or vomiting no abdominal pain no diarrhea no blood in the stools no burning was urination no frequency or urgency and no hematuria. Patient underwent dobutamine echo stress test today which was read as inconclusive due to patient not attaining target heart rate. At this time will continue to monitor patient awaiting further evaluation by cardiology in a.m. On 07/23/2020 patient was seen and examined on the medical floor she is still having episodes of chest pain, she was reevaluated by cardiology, and was cleared for discharge, her pain is atypical, and she did not have any evidence of ischemia on stress test even though she did not achieve target heart rate, patient was requesting some pain pills she was given a prescription for Bardolph No. 9 pills she will be followed in the office for further evaluation and treatment Patient Condition at Discharge: Stable Plan - Discharge Summary Discharge Rx Participant: Yes New Discharge Prescriptions: Continue Folic Acid 1 mg PO DAILY Sertraline [Zoloft] 50 mg PO DAILY Ferrous Sulfate [Iron (65 MG Elemental)] 325 mg PO BID Calcium Carbonate [Calcium] 600 mg PO DAILY Ranolazine [Ranexa] 1,000 mg PO BID QUEtiapine [SEROquel] 50 mg PO HS Mirtazapine [Remeron] 45 mg PO HS INSULIN ASPART (NovoLOG) [NovoLOG (formulary)] See Protocol SQ ACHS Metoprolol Tartrate [Lopressor] 25 mg PO BID Levothyroxine Sodium [Synthroid] 175 mcg PO DAILY levETIRAcetam [Keppra] 500 mg PO BID Aspirin 81 mg PO DAILY hydrOXYzine pamoate [Vistaril] 25 mg PO TID Isosorbide Mononitrate ER [Imdur] 30 mg PO DAILY Cyclobenzaprine [Flexeril] 10 mg PO TID Atorvastatin [Lipitor] 80 mg PO DAILY ARIPiprazole [Abilify] 5 mg PO HS Loperamide [Imodium] 2 mg PO QID PRN PRN Reason: Diarrhea Ticagrelor [Brilinta] 90 mg PO BID tab Nitroglycerin Sl Tabs [Nitrostat] 0.4 mg SUBLINGUAL Q5M PRN 90 Days #100 tab PRN Reason: Chest Pain HYDROcodone/APAP 5-325MG [Bardolph 5-325] 1 tab PO TID PRN PRN Reason: Pain Pantoprazole [Protonix] 40 mg PO AC-BRKFST 30 Days #30 tablet.dr Sodium Bicarbonate Tab 650 mg PO BID 30 Days #60 tab Insulin Glargine,Hum.rec.anlog [Lantus Solostar] 30 unit SQ BID #0 Lidocaine 5% Patch [Lidoderm 5% Patch] 2 patch TOPICAL DAILY@1300 PRN PRN Reason: lower back pain Discharge Medication List ARIPiprazole [Abilify] 5 mg PO HS 05/21/20 [History] Aspirin 81 mg PO DAILY 05/21/20 [History] Atorvastatin [Lipitor] 80 mg PO DAILY 05/21/20 [History] Calcium Carbonate [Calcium] 600 mg PO DAILY 05/21/20 [History] Cyclobenzaprine [Flexeril] 10 mg PO TID 05/21/20 [History] Ferrous Sulfate [Iron (65 MG Elemental)] 325 mg PO BID 05/21/20 [History] Folic Acid 1 mg PO DAILY 05/21/20 [History] INSULIN ASPART (NovoLOG) [NovoLOG (formulary)] See Protocol SQ ACHS 05/21/20 [History] Isosorbide Mononitrate ER [Imdur] 30 mg PO DAILY 05/21/20 [History] Levothyroxine Sodium [Synthroid] 175 mcg PO DAILY 05/21/20 [History] Metoprolol Tartrate [Lopressor] 25 mg PO BID 05/21/20 [History] Mirtazapine [Remeron] 45 mg PO HS 05/21/20 [History] QUEtiapine [SEROquel] 50 mg PO HS 05/21/20 [History] Ranolazine [Ranexa] 1,000 mg PO BID 05/21/20 [History] Sertraline [Zoloft] 50 mg PO DAILY 05/21/20 [History] hydrOXYzine pamoate [Vistaril] 25 mg PO TID 05/21/20 [History] levETIRAcetam [Keppra] 500 mg PO BID 05/21/20 [History] Loperamide [Imodium] 2 mg PO QID PRN 06/08/20 [History] Nitroglycerin Sl Tabs [Nitrostat] 0.4 mg SUBLINGUAL Q5M PRN 90 Days #100 tab 06/27/20 [Rx] Ticagrelor [Brilinta] 90 mg PO BID tab 06/27/20 [Rx] HYDROcodone/APAP 5-325MG [Bardolph 5-325] 1 tab PO TID PRN 07/06/20 [History] Insulin Glargine,Hum.rec.anlog [Lantus Solostar] 30 unit SQ BID #0 07/14/20 [Rx] Pantoprazole [Protonix] 40 mg PO AC-BRKFST 30 Days #30 tablet. 07/14/20 [Rx] Sodium Bicarbonate Tab 650 mg PO BID 30 Days #60 tab 07/14/20 [Rx] Lidocaine 5% Patch [Lidoderm 5% Patch] 2 patch TOPICAL DAILY@1300 PRN 07/20/20 [History] Follow up Appointment(s)/Referral(s): Elier Murillo MD [STAFF PHYSICIAN] - 1 Week Jerson Aguilar MD [Primary Care Provider] - 1-2 days (Office is closed for the weekend - please call on Sunday to schedule follow up. )
[2020-07-23] MEDS: HYDROcodone/APAP 5-325MG 1 EACH TAB PO PRN (15:37)
== END 2020-07-23 15:48 | disposition home or self-care (01) | DRG 313 ==
LOC: EC 13:47 → 3SCARD 15:40 → OBSVTOIN 07-23 07:55
PROVIDERS: ADMIT Internal Medicine; ATTEND Internal Medicine
PROC: 05H933Z Insertion of Infusion Device into Right Brachial Vein, Percutaneous Approach (ICD-10-PCS; principal; 2020-07-23)
DX: R07.89 Other chest pain (principal); E03.9 Hypothyroidism, unspecified; E11.9 Type 2 diabetes mellitus without complications; E78.5 Hyperlipidemia, unspecified; E66.9 Obesity, unspecified; Z68.30 Body mass index [BMI] 30.0-30.9, adult; F17.210 Nicotine dependence, cigarettes, uncomplicated; G40.909 Epilepsy, unspecified, not intractable, without status epilepticus; I10 Essential (primary) hypertension; I25.10 Atherosclerotic heart disease of native coronary artery without angina pectoris; Z91.81 History of falling; Z79.02 Long term (current) use of antithrombotics/antiplatelets; Z79.4 Long term (current) use of insulin; Z79.82 Long term (current) use of aspirin; Z79.890 Hormone replacement therapy; Z79.899 Other long term (current) drug therapy; Z95.1 Presence of aortocoronary bypass graft; Z95.2 Presence of prosthetic heart valve; Z95.5 Presence of coronary angioplasty implant and graft; Z88.8 Allergy status to other drugs, medicaments and biological substances; Z91.013 Allergy to seafood; F31.9 Bipolar disorder, unspecified
CPT/HCPCS: 36410; 36415; 70450; 71046; 76937; 80053; 80061; 83036; 83735; 83880; 84484; 85025; 85347; 85610; 85730; 93005; 93351; 96361; 96374; 96375; 96376; 99285

== ENCOUNTER 2020-07-28 17:16 | Inpatient (IN) | payer MEDICARE, OTHER ==
[2020-07-28] MEDS ORDERED: HYDROmorphone 0.5 MG/0.5 ML SYRINGE IVP STA (17:45)
--- NOTE | 2020-07-28 17:48 | ED ---
General Adult HPI - General Stated complaint: rectal bleed Time Seen by Provider: 07/28/20 17:25 Source: patient, RN notes reviewed, old records reviewed - History of Present Illness Initial comments: 54-year-old female presents for abdominal pain, rectal bleeding. Patient had bright red rectal bleeding today which was associated with crampy abdominal pain and generalized abdominal pain. No fever but the patient has had chills. She had recent heart catheterization with stent placement in the beginning of June 2020. She is on dual antiplatelet therapy. She denies central chest pain. She denies measured fever. Pain is lower abdomen and left flank. She denies dysuria or hematuria. - Related Data Home Medications Medication Instructions Recorded Confirmed ARIPiprazole [Abilify] 5 mg PO HS 05/21/20 07/28/20 Aspirin 81 mg PO DAILY 05/21/20 07/28/20 Atorvastatin [Lipitor] 80 mg PO DAILY 05/21/20 07/28/20 Calcium Carbonate [Calcium] 600 mg PO DAILY 05/21/20 07/28/20 Cyclobenzaprine [Flexeril] 10 mg PO TID 05/21/20 07/28/20 Ferrous Sulfate [Iron (65 MG 325 mg PO BID 05/21/20 07/28/20 Elemental)] Folic Acid 1 mg PO DAILY 05/21/20 07/28/20 INSULIN ASPART (NovoLOG) [NovoLOG See Protocol SQ ACHS 05/21/20 07/28/20 (formulary)] Isosorbide Mononitrate ER [Imdur] 30 mg PO DAILY 05/21/20 07/28/20 Levothyroxine Sodium [Synthroid] 175 mcg PO DAILY 05/21/20 07/28/20 Metoprolol Tartrate [Lopressor] 25 mg PO BID 05/21/20 07/28/20 Mirtazapine [Remeron] 45 mg PO HS 05/21/20 07/28/20 QUEtiapine [SEROquel] 50 mg PO HS 05/21/20 07/28/20 Ranolazine [Ranexa] 1,000 mg PO BID 05/21/20 07/28/20 Sertraline [Zoloft] 50 mg PO DAILY 05/21/20 07/28/20 hydrOXYzine pamoate [Vistaril] 25 mg PO TID 05/21/20 07/28/20 levETIRAcetam [Keppra] 500 mg PO BID 05/21/20 07/28/20 Loperamide [Imodium] 2 mg PO QID PRN 06/08/20 07/28/20 HYDROcodone/APAP 5-325MG [Western 1 tab PO TID 07/06/20 07/28/20 5-325] Lidocaine 5% Patch [Lidoderm 5% 2 patch TOPICAL DAILY@1300 PRN 07/20/20 07/28/20 Patch] Previous Rx's Medication Instructions Recorded Nitroglycerin Sl Tabs [Nitrostat] 0.4 mg SUBLINGUAL Q5M PRN 90 Days 06/27/20 #100 tab Ticagrelor [Brilinta] 90 mg PO BID tab 06/27/20 Insulin Glargine,Hum.rec.anlog 30 unit SQ BID #0 07/14/20 [Lantus Solostar] Pantoprazole [Protonix] 40 mg PO AC-BRKFST 30 Days #30 07/14/20 tablet. Sodium Bicarbonate Tab 650 mg PO BID 30 Days #60 tab 07/14/20 Allergies Allergy/AdvReac Type Severity Reaction Status Date / Time gabapentin Allergy Anaphylaxis Verified 07/28/20 18:39 shellfish derived [Crab] Allergy Rash/Hives Verified 07/28/20 18:39 Review of Systems ROS Statement: Those systems with pertinent positive or pertinent negative responses have been documented in the HPI. ROS Other: All systems not noted in ROS Statement are negative. Past Medical History Past Medical History: Coronary Artery Disease (CAD), Chest Pain / Angina, Diabetes Mellitus, Hyperlipidemia, Hypertension, Musculoskeletal Disorder History of Any Multi-Drug Resistant Organisms: None Reported Past Surgical History: Bladder Surgery, Coronary Bypass/CABG, Heart Catheterization, Heart Catheterization With Stent Additional Past Surgical History / Comment(s): CABG in 2013, Mitral valve on 2017, Heart Stent, bilateral leg stent Past Anesthesia/Blood Transfusion Reactions: No Reported Reaction Date of Last Stent Placement:: 06/25/20 Past Psychological History: Bipolar Smoking Status: Current every day smoker Past Alcohol Use History: None Reported Past Drug Use History: None Reported - Past Family History Father Additional Family Medical History / Comment(s): heart disease General Exam General appearance: alert, in no apparent distress Head exam: Present: atraumatic, normocephalic Eye exam: Present: normal appearance, PERRL ENT exam: Present: mucous membranes dry Neck exam: Present: normal inspection. Absent: tenderness, meningismus Cardiovascular Exam: Present: regular rate, normal rhythm GI/Abdominal exam: Present: soft, tenderness (Mild generalized tenderness) Rectal exam: Present: normal inspection. Absent: black stool, bloody stool Extremities exam: Present: pedal edema Neurological exam: Present: alert, oriented X3, CN II-XII intact. Absent: motor sensory deficit Psychiatric exam: Present: normal affect, normal mood Skin exam: Present: warm, dry, intact. Absent: cyanosis, diaphoretic Course Vital Signs 07/28/20 07/28/20 17:39 19:39 Temperature 99 F Pulse Rate 77 77 Respiratory 18 16 Rate Blood Pressure 149/76 154/73 O2 Sat by Pulse 98 98 Oximetry EKG Findings - EKG Comments: EKG Findings:: EKG: Normal sinus rhythm, low voltage, rate 72, AR interval 162, QRS duration 90, QTC 479, no ST segment elevation. Medical Decision Making - Medical Decision Making 54-year-old female with bright red rectal bleeding. Rectal bleeding wall in the emergency department. No external hemorrhoids, minimal rectal exam, stable he moglobin. Patient still has some abdominal pain, CT was performed which is negative for acute findings. I did discuss case with Dr. Aguilar will admit. GI is placed on consult. Hemoglobin will be obtained q6hrs. - Lab Data Result diagrams: 07/28/20 19:25 07/28/20 18:29 Lab Results 07/28/20 07/28/20 07/28/20 Range/Units 18:29 18:29 19:25 WBC 5.0 (3.8-10.6) k/uL RBC 3.82 (3.80-5.40) m/uL Hgb 12.0 (11.4-16.0) gm/dL Hct 35.5 (34.0-46.0) % MCV 92.9 (80.0-100.0) fL MCH 31.4 (25.0-35.0) pg MCHC 33.8 (31.0-37.0) g/dL RDW 14.2 (11.5-15.5) % Plt Count 305 (150-450) k/uL MPV 7.0 Neutrophils % 61 % Lymphocytes % 29 % Monocytes % 6 % Eosinophils % 2 % Basophils % 1 % Neutrophils # 3.1 (1.3-7.7) k/uL Lymphocytes # 1.4 (1.0-4.8) k/uL Monocytes # 0.3 (0-1.0) k/uL Eosinophils # 0.1 (0-0.7) k/uL Basophils # 0.1 (0-0.2) k/uL PT (9.0-12.0) sec INR (<1.2) APTT (22.0-30.0) sec Sodium 135 L (137-145) mmol/L Potassium 4.6 (3.5-5.1) mmol/L Chloride 104 (98-107) mmol/L Carbon Dioxide 21 L (22-30) mmol/L Anion Gap 10 mmol/L BUN 11 (7-17) mg/dL Creatinine 0.66 (0.52-1.04) mg/dL Est GFR (CKD-EPI)AfAm >90 (>60 ml/min/1.73 sqM) Est GFR (CKD-EPI)NonAf >90 (>60 ml/min/1.73 sqM) Glucose 305 H (74-99) mg/dL Plasma Lactic Acid Cordell 1.4 (0.7-2.0) mmol/L Calcium 9.2 (8.4-10.2) mg/dL Magnesium 2.0 (1.6-2.3) mg/dL Total Bilirubin 0.7 (0.2-1.3) mg/dL AST 31 (14-36) U/L ALT 18 (4-34) U/L Alkaline Phosphatase 129 H (38-126) U/L Total Protein 8.4 H (6.3-8.2) g/dL Albumin 4.6 (3.5-5.0) g/dL Blood Type Blood Type Confirm Blood Type Recheck Bld Type Recheck Status Antibody Screen Spec Expiration Date 07/28/20 07/28/20 07/28/20 Range/Units 19:25 19:25 19:30 WBC (3.8-10.6) k/uL RBC (3.80-5.40) m/uL Hgb (11.4-16.0) gm/dL Hct (34.0-46.0) % MCV (80.0-100.0) fL MCH (25.0-35.0) pg MCHC (31.0-37.0) g/dL RDW (11.5-15.5) % Plt Count (150-450) k/uL MPV Neutrophils % % Lymphocytes % % Monocytes % % Eosinophils % % Basophils % % Neutrophils # (1.3-7.7) k/uL Lymphocytes # (1.0-4.8) k/uL Monocytes # (0-1.0) k/uL Eosinophils # (0-0.7) k/uL Basophils # (0-0.2) k/uL PT 9.7 (9.0-12.0) sec INR 0.9 (<1.2) APTT 22.6 (22.0-30.0) sec Sodium (137-145) mmol/L Potassium (3.5-5.1) mmol/L Chloride (98-107) mmol/L Carbon Dioxide (22-30) mmol/L Anion Gap mmol/L BUN (7-17) mg/dL Creatinine (0.52-1.04) mg/dL Est GFR (CKD-EPI)AfAm (>60 ml/min/1.73 sqM) Est GFR (CKD-EPI)NonAf (>60 ml/min/1.73 sqM) Glucose (74-99) mg/dL Plasma Lactic Acid Cordell (0.7-2.0) mmol/L Calcium (8.4-10.2) mg/dL Magnesium (1.6-2.3) mg/dL Total Bilirubin (0.2-1.3) mg/dL AST (14-36) U/L ALT (4-34) U/L Alkaline Phosphatase (38-126) U/L Total Protein (6.3-8.2) g/dL Albumin (3.5-5.0) g/dL Blood Type A Positive Blood Type Confirm A Positive Blood Type Recheck No Previous Record Bld Type Recheck Status CABO Indicated Antibody Screen NEGATIVE Spec Expiration Date 07/31/2020 - 2329 Disposition Clinical Impression: Hematochezia, GI bleed Disposition: ADMITTED IP TO THIS [facility] Condition: Stable Is patient prescribed a controlled substance at d/c from ED?: No Referrals: Jerson Aguilar MD [Primary Care Provider] - 1-2 days Time of Disposition: 21:26 Decision to Admit Reason: Admit from EC Decision Date: 07/28/20 Decision Time: 21:27
[2020-07-28 19:08] LABS: ALT 18 U/L (4-34); AST 31 U/L (14-36); African American GFR (CKD) >90 (>60 ml/min/1.73 sqM); Albumin 4.6 g/dL (3.5-5.0); Alkaline Phosphatase 129 U/L (38-126); Anion Gap 10 mmol/L; Blood Urea Nitrogen 11 mg/dL (7-17); Calcium 9.2 mg/dL (8.4-10.2); Carbon Dioxide 21 mmol/L (22-30); Chloride 104 mmol/L (98-107); Glucose 305 mg/dL (74-99); Non-African American GFR(CKD) >90 (>60 ml/min/1.73 sqM); Potassium 4.6 mmol/L (3.5-5.1); Sodium 135 mmol/L (137-145); Total Bilirubin 0.7 mg/dL (0.2-1.3); Total Protein 8.4 g/dL (6.3-8.2)
[2020-07-28 19:56] LABS: Basophils # (A) 0.1 k/uL (0-0.2); Basophils % (A) 1 %; Eosinophils # (A) 0.1 k/uL (0-0.7); Eosinophils % (A) 2 %; HCT 35.5 % (34.0-46.0); Lymphocytes # (A) 1.4 k/uL (1.0-4.8); Lymphocytes % (A) 29 %; MCH 31.4 pg (25.0-35.0); MCHC 33.8 g/dL (31.0-37.0); MCV 92.9 fL (80.0-100.0); Monocytes # (A) 0.3 k/uL (0-1.0); Monocytes % (A) 6 %; Neutrophils # (A) 3.1 k/uL (1.3-7.7); Neutrophils % (A) 61 %; Platelet Count 305 k/uL (150-450); RBC 3.82 m/uL (3.80-5.40); RDW 14.2 % (11.5-15.5)
[2020-07-28 20:18] LABS: INR 0.9 (<1.2); Partial Thromboplastin Time 22.6 sec (22.0-30.0); Prothrombin Time 9.7 sec (9.0-12.0)
--- NOTE | 2020-07-28 20:43 | CT ---
EXAMINATION TYPE: CT abdomen pelvis w con DATE OF EXAM: 07/28/2020 COMPARISON: 07/12/2020. HISTORY: rectal bleed CT DLP: 1051.2 mGycm Automated exposure control for dose reduction was used. TECHNIQUE: Helical acquisition of images was performed from the lung bases through the pelvis. CONTRAST: Performed without Oral Contrast and with IV Contrast, patient injected with 100 mL of Isovue 300. FINDINGS: LUNG BASES: No significant abnormality is appreciated. LIVER/GB: No significant abnormality is appreciated. Cholecystectomy. PANCREAS: No significant abnormality is seen. SPLEEN: No significant abnormality is seen. ADRENALS: No significant abnormality is seen. KIDNEYS: No significant abnormality is seen. FREE AIR: No free air is visualized. RETROPERITONEAL ADENOPATHY: None visualized REPRODUCTIVE ORGANS: No significant abnormality is seen URINARY BLADDER: No significant abnormality is seen. PELVIC ADENOPATHY: None visualized. OSSEOUS STRUCTURES: No significant abnormality is seen. BOWEL: No significant abnormality is seen. Appendectomy noted. OTHER: Advanced atherosclerotic disease. IMPRESSION: NO ACUTE ABNORMALITY.
[2020-07-28] MEDS ORDERED: NALOXONE 0.4 MG/ML 1 ML VIAL IV PRN (20:58)
[2020-07-28] MEDS: SODIUM CHLORIDE 0.9% 1,000 ML IV SCH (21:21)
[2020-07-28] MEDS: ONDANSETRON 4 MG/2 ML VIAL IVP PRN (21:23)
[2020-07-28] MEDS: HYDROmorphone 0.5 MG/0.5 ML SYRINGE IVP PRN (23:36)
[2020-07-29 00:12] LABS: Glucose,Whole Blood 267 mg/dL (75-99)
[2020-07-29] MEDS ORDERED: INSULIN ASPART (NovoLOG) 100 UNIT/ML VIAL SQ ONE (01:05)
[2020-07-29] MEDS: HYDROmorphone 0.5 MG/0.5 ML SYRINGE IVP PRN ×3 (03:33→11:30)
[2020-07-29 06:46] LABS: Basophils % (A) 1 %; Eosinophils # (A) 0.1 k/uL (0-0.7); Eosinophils % (A) 3 %; HCT 38.5 % (34.0-46.0); HGB 12.6 gm/dL (11.4-16.0); Lymphocytes # (A) 1.2 k/uL (1.0-4.8); Lymphocytes % (A) 30 %; MCH 30.9 pg (25.0-35.0); MCHC 32.6 g/dL (31.0-37.0); MCV 94.8 fL (80.0-100.0); Mean Platelet Volume 6.9; Monocytes # (A) 0.3 k/uL (0-1.0); Monocytes % (A) 7 %; Neutrophils # (A) 2.3 k/uL (1.3-7.7); Neutrophils % (A) 58 %; Platelet Count 300 k/uL (150-450); RBC 4.06 m/uL (3.80-5.40); RDW 14.2 % (11.5-15.5)
[2020-07-29 07:03] LABS: Glucose,Whole Blood 223 mg/dL (75-99)
[2020-07-29] MEDS: INSULIN ASPART (NovoLOG) 100 UNIT/ML VIAL SQ SCH ×3 (07:27→17:17)
[2020-07-29] MEDS ORDERED: NITROGLYCERIN SL TABS 0.4 MG TAB SUBLINGUAL PRN (08:47)
[2020-07-29] MEDS ORDERED: LOPERAMIDE 2 MG CAP PO PRN (08:47)
[2020-07-29] MEDS ORDERED: PANTOPRAZOLE 40 MG/10 ML VIAL IV SCH (09:00)
[2020-07-29] MEDS: METOPROLOL TARTRATE 25 MG TAB PO SCH (09:14)
[2020-07-29] MEDS: RANOLAZINE 500 MG TAB.ER.12H PO SCH (09:14)
[2020-07-29] MEDS: ATORVASTATIN 80 MG TAB PO SCH (09:15)
[2020-07-29] MEDS: FERROUS SULFATE 325 MG TAB PO SCH (09:15)
[2020-07-29] MEDS: hydrOXYzine pamoate 25 MG CAP PO SCH ×2 (09:15→17:16)
[2020-07-29] MEDS: CYCLOBENZAPRINE 10 MG TAB PO SCH ×2 (09:16→17:17)
[2020-07-29] MEDS: SODIUM BICARBONATE TAB 650 MG TAB PO SCH (09:16)
[2020-07-29] MEDS: SERTRALINE 50 MG TAB PO SCH (09:16)
[2020-07-29] MEDS: LEVOTHYROXINE 88 MCG TAB PO SCH (09:16)
[2020-07-29] MEDS: CALCIUM CARBONATE 500 MG CHEWABLE PO SCH (09:16)
[2020-07-29] MEDS: ISOSORBIDE MONONITRATE ER 30 MG TAB.ER.24H PO SCH (09:16)
[2020-07-29] MEDS: FOLIC ACID 1 MG TAB PO SCH (09:17)
[2020-07-29] MEDS: levETIRAcetam 500 MG TAB PO SCH (09:17)
[2020-07-29] MEDS: INSULIN DETEMIR (LEVEMIR) 100 UNIT/ML SYR SQ SCH (09:17)
[2020-07-29] MEDS: HYDROcodone/APAP 5-325MG 1 EACH TAB PO SCH ×2 (11:35→17:16)
[2020-07-29 11:54] LABS: Glucose,Whole Blood 177 mg/dL (75-99)
[2020-07-29 12:23] LABS: Hemoglobin A1C 9.6 % (4.0-6.0)
--- NOTE | 2020-07-29 12:39 | P.HPIM ---
History of Present Illness H&P Date: 07/29/20 Aminta Sheikh, is a 54-year-old female who presented to [facility] emergency room with a chief complaint of rectal bleeding, patient states that she started having rectal bleeding 2 days ago and had severe bleeding on the day of admission. She was evaluated in the emergency room, vital examination on presentation reveals a temperature of 99 pulse 77 respiration 18 blood pressure 149/76 pulse ox 98% on room air her white blood count was 5.0 hemoglobin 12.0 platelet count 305 INR 0.9 sodium 135 potassium 4.6 chloride 106 CO2 21 glucose level 305 creatinine 0.66. Patient was admitted to medical floor for further evaluation and treatment gastroenterology consultation was requested. Patient has a known history of coronary artery disease she was admitted in June 2020 and underwent cardiac catheterization with angioplasty and stent placement since then patient has been maintained on Brillinta and aspirin. Both medication were held in the emergency room on presentation awaiting gastroenterology evaluation. On review of system patient is alert and oriented 3 there is no fever or chills no headache or dizziness no chest pain no shortness of breath no cough no nausea or vomiting no abdominal pain no diarrhea no burning with urination no frequency or urgency and no hematuria no numbness or weakness in any of the extremities no change in vision or speech or gait Past Medical History Past Medical History: Coronary Artery Disease (CAD), Chest Pain / Angina, Diabetes Mellitus, Hyperlipidemia, Hypertension, Musculoskeletal Disorder History of Any Multi-Drug Resistant Organisms: None Reported Past Surgical History: Bladder Surgery, Coronary Bypass/CABG, Heart Catheteriz ation, Heart Catheterization With Stent Additional Past Surgical History / Comment(s): CABG in 2013, Mitral valve on 2016, Heart Stent, bilateral leg stent Past Anesthesia/Blood Transfusion Reactions: No Reported Reaction Date of Last Stent Placement:: 06/25/20 Past Psychological History: Bipolar Smoking Status: Current every day smoker Past Alcohol Use History: None Reported Past Drug Use History: None Reported - Past Family History Father Additional Family Medical History / Comment(s): heart disease Medications and Allergies Home Medications Medication Instructions Recorded Confirmed Type ARIPiprazole [Abilify] 5 mg PO HS 05/21/20 07/28/20 History Aspirin 81 mg PO DAILY 05/21/20 07/28/20 History Atorvastatin [Lipitor] 80 mg PO DAILY 05/21/20 07/28/20 History Calcium Carbonate [Calcium] 600 mg PO DAILY 05/21/20 07/28/20 History Cyclobenzaprine [Flexeril] 10 mg PO TID 05/21/20 07/28/20 History Ferrous Sulfate [Iron (65 MG 325 mg PO BID 05/21/20 07/28/20 History Elemental)] Folic Acid 1 mg PO DAILY 05/21/20 07/28/20 History INSULIN ASPART (NovoLOG) [NovoLOG See Protocol SQ ACHS 05/21/20 07/28/20 History (formulary)] Isosorbide Mononitrate ER [Imdur] 30 mg PO DAILY 05/21/20 07/28/20 History Levothyroxine Sodium [Synthroid] 175 mcg PO DAILY 05/21/20 07/28/20 History Metoprolol Tartrate [Lopressor] 25 mg PO BID 05/21/20 07/28/20 History Mirtazapine [Remeron] 45 mg PO HS 05/21/20 07/28/20 History QUEtiapine [SEROquel] 50 mg PO HS 05/21/20 07/28/20 History Ranolazine [Ranexa] 1,000 mg PO BID 05/21/20 07/28/20 History Sertraline [Zoloft] 50 mg PO DAILY 05/21/20 07/28/20 History hydrOXYzine pamoate [Vistaril] 25 mg PO TID 05/21/20 07/28/20 History levETIRAcetam [Keppra] 500 mg PO BID 05/21/20 07/28/20 History Loperamide [Imodium] 2 mg PO QID PRN 06/08/20 07/28/20 History Nitroglycerin Sl Tabs [Nitrostat] 0.4 mg SUBLINGUAL Q5M PRN 90 Days 06/27/20 0 07/28/20 Rx #100 tab Ticagrelor [Brilinta] 90 mg PO BID tab 06/27/20 07/28/20 Rx HYDROcodone/APAP 5-325MG [[place] 1 tab PO TID 07/06/20 07/28/20 History 5-325] Insulin Glargine,Hum.rec.anlog 30 unit SQ BID #0 07/14/20 07/28/20 Rx [Lantus Solostar] Pantoprazole [Protonix] 40 mg PO AC-BRKFST 30 Days #30 07/14/20 07/28/20 Rx tablet. Sodium Bicarbonate Tab 650 mg PO BID 30 Days #60 tab 07/14/20 07/28/20 Rx Lidocaine 5% Patch [Lidoderm 5% 2 patch TOPICAL DAILY@1300 PRN 07/20/20 07/28/20 History Patch] Allergies Allergy/AdvReac Type Severity Reaction Status Date / Time gabapentin Allergy Anaphylaxis Verified 07/28/20 18:39 shellfish derived [Crab] Allergy Rash/Hives Verified 07/28/20 18:39 Physical Exam Vitals: Vital Signs Temp Pulse Pulse Resp BP BP Pulse Ox 07/29/20 08:00 98.2 F 70 16 123/72 100 07/29/20 02:00 97.2 F L 76 20 122/62 97 07/28/20 22:06 97.5 F L 79 20 167/70 99 07/28/20 21:41 82 18 154/85 100 07/28/20 19:39 77 16 154/73 98 07/28/20 17:39 99 F 77 18 149/76 98 Intake and Output 07/28/20 07/29/20 07/29/20 22:59 06:59 14:59 Intake Total 150 Output Total 2 Balance 148 Intake: Oral 100 Other 50 Output: Urine 2 Other: Weight 78.471 kg In general patient is alert, and oriented in no apparent distress HEENT head normocephalic and atraumatic Neck is supple no JVD no goiter no lymphadenopathy Chest exam reveals a few scattered rhonchi no wheezing Cardiac exam reveals regular heart sounds no gallops no murmurs Abdomen is soft nontender no organomegaly with normal bowel sounds Extremity exam reveals no edema no cyanosis or clubbing Neurological examination reveals no gross focal deficits Results CBC & Chem 7: 07/29/20 05:53 07/28/20 18:29 Labs: Abnormal Lab Results - Last 24 Hours (Table) 07/28/20 07/29/20 07/29/20 Range/Units 18:29 00:10 07:02 Sodium 135 L (137-145) mmol/L Carbon Dioxide 21 L (22-30) mmol/L Glucose 305 H (74-99) mg/dL POC Glucose (mg/dL) 267 H 223 H (75-99) mg/dL Alkaline Phosphatase 129 H (38-126) U/L Total Protein 8.4 H (6.3-8.2) g/dL Thrombosis Risk Factor Assmnt - Choose All That Apply Each Factor Represents 1 point: Age 41-60 years, Swollen legs (current) Thrombosis Risk Factor Assessment Total Risk Factor Score: 2 Thrombosis Risk Factor Assessment Level: Low Risk Assessment and Plan Plan: 1. Rectal bleeding, will monitor hemoglobin closely 2. Abdominal pain, there is no leukocytosis, computed tomography scan of the abdomen and pelvis with contrast was done in the emergency room and did not show any acute abnormality 3. Underlying history of coronary artery disease with recent angioplasty and stent placement in June 2020, at this time we are holding Brillinta and aspirin awaiting gastroenterology opinion, these medication should be resumed soon if no active bleeding due to recent stent placement. 4. Underlying history of hypertension 5. Underlying history of hyperlipidemia 6. Underlying history of diabetes mellitus type 2 requiring insulin. 7. Underlying history of bipolar disorder 8. Underlying history of seizure disorder maintained on Keppra At this time patient is admitted to medical floor home medication reviewed and reordered Brillinta and aspirin are on hold until patient is evaluated by gastroenterology Hemoglobin is stable so far will follow closely
[2020-07-29] MEDS ORDERED: LIDOCAINE 5% PATCH TOPICAL PRN (13:00)
[2020-07-29 17:04] LABS: Glucose,Whole Blood 67 mg/dL (75-99)
[2020-07-29] MEDS: PANTOPRAZOLE 40 MG TABLET PO SCH (17:17)
[2020-07-29 18:09] LABS: Glucose,Whole Blood 72 mg/dL (75-99)
[2020-07-29 20:15] LABS: Glucose,Whole Blood 76 mg/dL (75-99)
[2020-07-29] MEDS ORDERED: DEXTROSE 50% SYRINGE 50 ML IVP ONE (21:33)
[2020-07-29 21:56] LABS: Glucose,Whole Blood 93 mg/dL (75-99)
[2020-07-29 21:56] LABS: Glucose,Whole Blood 71 mg/dL (75-99)
[2020-07-29] MEDS: ONDANSETRON 4 MG/2 ML VIAL IVP PRN (22:05)
[2020-07-29 22:30] LABS: Glucose,Whole Blood 96 mg/dL (75-99)
[2020-07-29] MEDS ORDERED: DEXTROSE 5% IN WATER 1,000 ML IV ONE (23:31)
[2020-07-30] MEDS: INSULIN ASPART (NovoLOG) 100 UNIT/ML VIAL SQ SCH ×5 (01:00→20:04)
[2020-07-30] MEDS: ARIPiprazole 5 MG TAB PO SCH ×2 (01:00→19:50)
[2020-07-30] MEDS: FERROUS SULFATE 325 MG TAB PO SCH ×3 (01:00→19:50)
[2020-07-30] MEDS: SODIUM CHLORIDE 0.9% 1,000 ML IV SCH ×2 (01:01→20:21)
[2020-07-30] MEDS: INSULIN DETEMIR (LEVEMIR) 100 UNIT/ML SYR SQ SCH ×3 (01:01→20:18)
[2020-07-30] MEDS: METOPROLOL TARTRATE 25 MG TAB PO SCH ×3 (01:01→19:50)
[2020-07-30] MEDS: SODIUM BICARBONATE TAB 650 MG TAB PO SCH ×3 (01:01→19:50)
[2020-07-30] MEDS: HYDROmorphone 0.5 MG/0.5 ML SYRINGE IVP PRN ×5 (01:50→19:58)
--- NOTE | 2020-07-30 01:51 | P.CONS ---
History of Present Illness - Reason for Consult Consult date: 07/29/20 GI bleed Requesting physician: Jerson Aguilar - Chief Complaint Blood per rectum - History of Present Illness 54-year-old female with a medical history significant for coronary artery disease with recent cardiac catheterization and stent placement in 06/2020 on anticoagulation therapy, diabetes mellitus, hypertension and hyperlipidemia who presented to the hospital with complaints of blood per rectum. The patient reports multiple episodes of blood per rectum. She describes bright red blood and maroon stool on 6 occasions. She is also reporting some epigastric abdomi nal pain described as an uncomfortable feeling in her abdomen. No nausea or vomiting reported. No constipation or diarrhea reported. The patient had laboratory evaluation on presentation significant for WBC 4, hemoglobin 12.6, platelet count 300,000, total bilirubin 0.7, alkaline phosphatase 129, AST 31 and ALT 18. Computed tomography scan of the abdomen on presentation was normal with no acute findings. She recently had a GI bleed approximately 6 months ago and was seen at [facility] where she had a colonoscopy significant for diverticulosis and polyps with no bleeding at that time an EGD which was significant only for gastritis. No further episodes since admission. Review of Systems REVIEW OF SYSTEMS: CONSTITUTIONAL: Denies any fevers, chills, weight change or fatigue. CARDIOVASCULAR: Denies any chest pain, palpitations high or low blood pressures, recent coronary catheterization with stent placed. RESPIRATORY: Denies any shortness of breath, hemoptysis or cough. GENITOURINARY: No dysuria or hematuria. MUSCULOSKELETAL: No weakness reported. SKIN: Denies any new rashes or lesions, jaundice or pallor. PSYCHIATRIC: Denies any depression or anxiety. NEUROLOGY: Denies headache, denies any new focal deficits. EARS/NOSE/THROAT: No recent hearing change, congestion, nasal discharge or sore throat. EYES: No pain in eyes, discharge or change in vision. GASTROINTESTINAL: As per HPI. Past Medical History Past Medical History: Coronary Artery Disease (CAD), Chest Pain / Angina, Diabetes Mellitus, Hyperlipidemia, Hypertension, Musculoskeletal Disorder History of Any Multi-Drug Resistant Organisms: None Reported Past Surgical History: Bladder Surgery, Coronary Bypass/CABG, Heart Catheterization, Heart Catheterization With Stent Additional Past Surgical History / Comment(s): CABG in 2013, Mitral valve on 2016, Heart Stent, bilateral leg stent Past Anesthesia/Blood Transfusion Reactions: No Reported Reaction Date of Last Stent Placement:: 06/25/20 Past Psychological History: Bipolar Smoking Status: Current every day smoker Past Alcohol Use History: None Reported Past Drug Use History: None Reported - Past Family History Father Additional Family Medical History / Comment(s): heart disease Medications and Allergies Home Medications Medication Instructions Recorded Confirmed Type ARIPiprazole [Abilify] 5 mg PO HS 05/21/20 07/28/20 History Aspirin 81 mg PO DAILY 05/21/20 07/28/20 History Atorvastatin [Lipitor] 80 mg PO DAILY 05/21/20 07/28/20 History Calcium Carbonate [Calcium] 600 mg PO DAILY 05/21/20 07/28/20 History Cyclobenzaprine [Flexeril] 10 mg PO TID 05/21/20 07/28/20 History Ferrous Sulfate [Iron (65 MG 325 mg PO BID 05/21/20 07/28/20 History Elemental)] Folic Acid 1 mg PO DAILY 05/21/20 07/28/20 History INSULIN ASPART (NovoLOG) [NovoLOG See Protocol SQ ACHS 05/21/20 07/28/20 History (formulary)] Isosorbide Mononitrate ER [Imdur] 30 mg PO DAILY 05/21/20 07/28/20 History Levothyroxine Sodium [Synthroid] 175 mcg PO DAILY 05/21/20 07/28/20 History Metoprolol Tartrate [Lopressor] 25 mg PO BID 05/21/20 07/28/20 History Mirtazapine [Remeron] 45 mg PO HS 05/21/20 07/28/20 History QUEtiapine [SEROquel] 50 mg PO HS 05/21/20 07/28/20 History Ranolazine [Ranexa] 1,000 mg PO BID 05/21/20 07/28/20 History Sertraline [Zoloft] 50 mg PO DAILY 05/21/20 07/28/20 History hydrOXYzine pamoate [Vistaril] 25 mg PO TID 05/21/20 07/28/20 History levETIRAcetam [Keppra] 500 mg PO BID 05/21/20 07/28/20 History Loperamide [Imodium] 2 mg PO QID PRN 06/08/20 07/28/20 History Nitroglycerin Sl Tabs [Nitrostat] 0.4 mg SUBLINGUAL Q5M PRN 90 Days 06/27/20 07/28/20 Rx #100 tab Ticagrelor [Brilinta] 90 mg PO BID tab 06/27/20 07/28/20 Rx HYDROcodone/APAP 5-325MG [[place] 1 tab PO TID 07/06/20 07/28/20 History 5-325] Insulin Glargine,Hum.rec.anlog 30 unit SQ BID #0 07/14/20 07/28/20 Rx [Lantus Solostar] Pantoprazole [Protonix] 40 mg PO AC-BRKFST 30 Days #30 07/14/20 07/28/20 Rx tablet. Sodium Bicarbonate Tab 650 mg PO BID 30 Days #60 tab 07/14/20 07/28/20 Rx Lidocaine 5% Patch [Lidoderm 5% 2 patch TOPICAL DAILY@1300 PRN 07/20/20 07/28/20 History Patch] Allergies Allergy/AdvReac Type Severity Reaction Status Date / Time gabapentin Allergy Anaphylaxis Verified 07/28/20 18:39 shellfish derived [Crab] Allergy Rash/Hives Verified 07/28/20 18:39 Physical Exam Vitals: Vital Signs Temp Pulse Pulse Resp BP BP Pulse Ox 07/29/20 08:00 98.2 F 70 16 123/72 100 07/29/20 02:00 97.2 F L 76 20 122/62 97 07/28/20 22:06 97.5 F L 79 20 167/70 99 07/28/20 21:41 82 18 154/85 100 07/28/20 19:39 77 16 154/73 98 07/28/20 17:39 99 F 77 18 149/76 98 Intake and Output 07/29/20 07/29/20 07/29/20 06:59 14:59 22:59 Intake Total 150 Output Total 2 Balance 148 Intake: Oral 100 Other 50 Output: Urine 2 On physical examination, patient appears comfortable in no apparent distress. HEAD: Normocephalic, atraumatic. EYES: No scleral icterus. No conjunctival injection. MOUTH: No lesions, tongue midline. NECK: Trachea midline, no gross abnormalities. CHEST: Clear to auscultation with no wheezing or rhonchi appreciated. HEART: Regular rate and rhythm. ABDOMEN: Soft, mildly tender to palpation. Bowel sounds are positive. No organomegaly. No guarding or rigidity. EXTREMITIES: No pedal edema. SKIN: No rashes, no jaundice. NEUROLOGIC: Alert and oriented x3. No focal deficits. Results CBC & Chem 7: 07/29/20 05:53 07/28/20 18:29 Labs: Abnormal Lab Results - Last 24 Hours (Table) 07/28/20 07/29/20 07/29/20 Range/Units 18:29 00:10 05:53 Sodium 135 L (137-145) mmol/L Carbon Dioxide 21 L (22-30) mmol/L Glucose 305 H (74-99) mg/dL POC Glucose (mg/dL) 267 H (75-99) mg/dL Hemoglobin A1c 9.6 H (4.0-6.0) % Alkaline Phosphatase 129 H (38-126) U/L Total Protein 8.4 H (6.3-8.2) g/dL 07/29/20 07/29/20 Range/Units 07:02 11:53 Sodium (137-145) mmol/L Carbon Dioxide (22-30) mmol/L Glucose (74-99) mg/dL POC Glucose (mg/dL) 223 H 177 H (75-99) mg/dL Hemoglobin A1c (4.0-6.0) % Alkaline Phosphatase (38-126) U/L Total Protein (6.3-8.2) g/dL CT scan - abdomen: report reviewed (Computed tomography scan of the abdomen with no acute intra-abdominal findings noted) Assessment and Plan (1) GI bleed Narrative/Plan: 54-year-old female with multiple medical comorbidities including coronary artery disease for which she underwent coronary catheterization with stent placement in 06/2020 who presented to the hospital with complaints of blood per rectum. Multiple episodes of bright red blood and maroon-colored stool reported. Hemoglobin was normal on presentation at 12.6. No further episodes of bleeding. Patient had similar episode 6 months ago investigated with EGD and colonoscopy at [facility] significant for gastritis, polypectomy and di verticulosis. Patient also reports some discomfort in the epigastric region of her abdomen. Unclear etiology, suspicion is for hemorrhoidal bleeding exacerbated in the setting of antiplatelet therapy, now ulcer present diverticular bleed, AVM, or possible upper GI bleed given epigastric discomfort, or other etiology. Current Visit: Yes Status: Acute Code(s): K92.2 - GASTROINTESTINAL HEMORRHAGE, UNSPECIFIED SNOMED Code(s): 14665457 (2) Hematochezia Current Visit: Yes Status: Acute Code(s): K92.1 - MELENA SNOMED Code(s): 081448974 Plan: Supportive care Okay for diet Continue to monitor hemoglobin and hematocrit and transfuse as needed Reports from prior endoscopic evaluation were obtained and reviewed Continue to hold antiplatelet/anticoagulation therapy at this time Nothing by mouth after midnight, with plan for EGD in the setting of GI bleed epigastric discomfort, with all of the risks, benefits and possible complications of the procedure described to the patient over questions into to her satisfaction Thank you for allowing us to participate in the care of the patient
[2020-07-30] MEDS: levETIRAcetam 500 MG TAB PO SCH ×3 (01:53→19:50)
[2020-07-30] MEDS: CYCLOBENZAPRINE 10 MG TAB PO SCH ×4 (01:54→22:53)
[2020-07-30] MEDS: RANOLAZINE 500 MG TAB.ER.12H PO SCH ×3 (01:54→19:50)
[2020-07-30] MEDS: QUEtiapine 50 MG TAB PO SCH ×2 (01:54→19:50)
[2020-07-30] MEDS: HYDROcodone/APAP 5-325MG 1 EACH TAB PO SCH ×4 (01:54→22:53)
[2020-07-30] MEDS: MIRTAZAPINE 45 MG TABLET PO SCH ×2 (01:54→19:50)
[2020-07-30] MEDS: hydrOXYzine pamoate 25 MG CAP PO SCH ×4 (01:55→22:52)
[2020-07-30 07:29] LABS: Glucose,Whole Blood 120 mg/dL (75-99)
[2020-07-30] MEDS ORDERED: PANTOPRAZOLE 40 MG TABLET PO SCH (07:30)
[2020-07-30] MEDS: LEVOTHYROXINE 88 MCG TAB PO SCH (08:26)
[2020-07-30] MEDS: CALCIUM CARBONATE 500 MG CHEWABLE PO SCH (08:34)
[2020-07-30] MEDS: FOLIC ACID 1 MG TAB PO SCH (08:34)
[2020-07-30] MEDS: SERTRALINE 50 MG TAB PO SCH (08:36)
[2020-07-30] MEDS: ISOSORBIDE MONONITRATE ER 30 MG TAB.ER.24H PO SCH (08:36)
[2020-07-30] MEDS: ATORVASTATIN 80 MG TAB PO SCH (08:36)
[2020-07-30] MEDS: PANTOPRAZOLE 40 MG TABLET PO SCH ×2 (08:36→16:34)
[2020-07-30] MEDS: LACTATED RINGERS 1,000 ML IV SCH (08:53)
--- NOTE | 2020-07-30 09:42 | P.PN ---
Subjective Progress Note Date: 07/30/20 Aminta Sheikh, is a 54-year-old female who presented to [facility] emergency room with a chief complaint of rectal bleeding, patient states that she started having rectal bleeding 2 days ago and had severe bleeding on the day of admission. She was evaluated in the emergency room, v ital examination on presentation reveals a temperature of 99 pulse 77 respiration 18 blood pressure 149/76 pulse ox 98% on room air her white blood count was 5.0 hemoglobin 12.0 platelet count 305 INR 0.9 sodium 135 potassium 4.6 chloride 106 CO2 21 glucose level 305 creatinine 0.66. Patient was admitted to medical floor for further evaluation and treatment gastroenterology consultation was requested. Patient has a known history of coronary artery disease she was admitted in June 2020 and underwent cardiac catheterization with angioplasty and stent placement since then patient has been maintained on Brillinta and aspirin. Both medication were held in the emergency room on presentation awaiting gastroenterology evaluation. On review of system patient is alert and oriented 3 there is no fever or chills no headache or dizziness no chest pain no shortness of breath no cough no nausea or vomiting no abdominal pain no diarrhea no burning with urination no frequency or urgency and no hematuria no numbness or weakness in any of the extremities no change in vision or speech or gait. On 07/30/2020 patient was seen and examined on the medical floor she is alert and oriented 3 in no distress, she states that she had episodes of nausea and vomiting through the night otherwise she denies any complaints there is no fever or chills no headache or dizziness no chest pain no shortness of breath no cough no abdominal pain no diarrhea no blood in the stools no burning with urination no frequency or urgency and no hematuria. CBC is still pending, plan for gastroenterology is to proceed with EGD today, will follow closely, aspirin and Brillinta are still on hold at this time per gastroenterology recommendation. Objective - Vital Signs Vital signs: Vital Signs Temp 98 F 07/30/20 08:00 Pulse 77 07/30/20 08:00 Resp 16 07/30/20 08:00 BP 123/79 07/30/20 08:00 Pulse Ox 100 07/30/20 08:00 Intake & Output 07/29/20 07/30/20 07/30/20 18:59 06:59 18:59 Intake Total 240 Output Total 203 Balance 37 Intake: Oral 240 Output: Urine 3 Emesis 200 Other: # Voids 1 1 - Exam In general patient is alert, and oriented in no apparent distress HEENT head normocephalic and atraumatic Neck is supple no JVD no goiter no lymphadenopathy Chest exam reveals a few scattered rhonchi no wheezing Cardiac exam reveals regular heart sounds no gallops no murmurs Abdomen is soft nontender no organomegaly with normal bowel sounds Extremity exam reveals no edema no cyanosis or clubbing Neurological examination reveals no gross focal deficits - Labs CBC & Chem 7: 07/29/20 05:53 07/28/20 18:29 Labs: Abnormal Lab Results - Last 24 Hours (Table) 07/29/20 07/29/20 07/29/20 Range/Units 05:53 11:53 17:02 POC Glucose (mg/dL) 177 H 67 L (75-99) mg/dL Hemoglobin A1c 9.6 H (4.0-6.0) % 07/29/20 07/29/20 07/30/20 Range/Units 18:08 21:25 07:28 POC Glucose (mg/dL) 72 L 71 L 120 H (75-99) mg/dL Hemoglobin A1c (4.0-6.0) % Assessment and Plan Plan: 1. Rectal bleeding, will monitor hemoglobin closely 2. Abdominal pain, there is no leukocytosis, computed tomography scan of the abdomen and pelvis with contrast was done in the emergency room and did not show any acute abnormality 3. Underlying history of coronary artery disease with recent angioplasty and stent placement in June 2020, at this time we are holding Brillinta and aspirin awaiting gastroenterology opinion, these medication should be resumed soon if no active bleeding due to recent stent placement. 4. Underlying history of hypertension 5. Underlying history of hyperlipidemia 6. Underlying history of diabetes mellitus type 2 requiring insulin. 7. Underlying history of bipolar disorder 8. Underlying history of seizure disorder maintained on Keppra At this time patient is admitted to medical floor home medication reviewed and reordered Brillinta and aspirin are on hold until patient is evaluated by gastroenterology Hemoglobin is stable so far will follow closely
[2020-07-30 11:18] LABS: Glucose,Whole Blood 119 mg/dL (75-99)
[2020-07-30] MEDS ORDERED: PROPOFOL 10 MG/ML 20 ML VIAL IV ONE (12:00)
[2020-07-30] MEDS ORDERED: MIDAZOLAM 2 MG/2 ML VIAL ONE (12:00)
[2020-07-30] MEDS ORDERED: fentaNYL (PF) 50 MCG/ML 2 ML AMP ONE (12:00)
[2020-07-30 12:13] LABS: Basophils % (A) 1 %; Eosinophils # (A) 0.1 k/uL (0-0.7); Eosinophils % (A) 2 %; HCT 34.7 % (34.0-46.0); HGB 11.4 gm/dL (11.4-16.0); Lymphocytes # (A) 1.1 k/uL (1.0-4.8); Lymphocytes % (A) 22 %; MCH 30.5 pg (25.0-35.0); MCHC 32.7 g/dL (31.0-37.0); MCV 93.1 fL (80.0-100.0); Mean Platelet Volume 7.4; Monocytes # (A) 0.3 k/uL (0-1.0); Monocytes % (A) 6 %; Neutrophils # (A) 3.3 k/uL (1.3-7.7); Neutrophils % (A) 68 %; Platelet Count 357 k/uL (150-450); RBC 3.73 m/uL (3.80-5.40); RDW 14.6 % (11.5-15.5); WBC 4.8 k/uL (3.8-10.6)
[2020-07-30 12:35] VITALS: BMI 29.7
[2020-07-30] MEDS ORDERED: IV FLUID CONTINUATION 1,000 ML IV ONE (12:51)
--- NOTE | 2020-07-30 13:09 | P.PCN ---
Date of Procedure: 07/30/20 Description of Procedure: BRIEF HISTORY: 54-year-old female with a medical history significant for coronary artery disease with recent cardiac catheterization and stent placement in 06/2020 on anticoagulation therapy, diabetes mellitus, hypertension and hyperlipidemia who presented to the hospital with complaints of blood per rectum. The patient reports multiple episodes of blood per rectum. She describes bright red blood and maroon stool on 6 occasions. She is also reporting some epigastric abdominal pain described as an uncomfortable feeling in her abdomen. No nausea or vomiting reported. No constipation or diarrhea reported. The patient had laboratory evaluation on presentation with a normal hemoglobin of 12.6. Computed tomography scan of the abdomen on presentation was normal with no acute findings. She recently had a GI bleed approximately 6 months ago and was seen at [facility] where she had a colonoscopy significant for diverticulosis and polyps with no bleeding at that time an EGD which was significant only for gastritis. No further episodes since admission. PROCEDURE PERFORMED: Esophagogastroduodenoscopy with biopsy. PREOPERATIVE DIAGNOSIS: Epigastric abdominal pain, GI bleed, hematochezia. ESTIMATED BLOOD LOSS: Minimal. IV sedation per anesthesia. PROCEDURE: After informed consent was obtained, the patient was brought into the endoscopy unit. IV sedation was administered by Anesthesia under continuous monitoring. In itially the Olympus GIF-190 video endoscope was inserted into the mouth. Esophagus intubated without any difficulty. It was gradually advanced into the stomach and duodenum and carefully examined. The bulb and the second part of the duodenum appeared normal, with biopsies taken. The scope at this time was withdrawn to the stomach, adequately insufflated with air, and upon careful examination, mucosa of the antrum, body, cardia and the fundus appeared normal, except for some mild punctate erythema suggestive of mild gastritis biopsy taken. The scope was then withdrawn into the esophagus. The GE junction was located at 39 cm from the incisors. The esophagus appeared normal. There were no erosions or ulcerations seen and the patient tolerated the procedure well. IMPRESSION: 1. No active bleeding, old blood or pathology to explain symptoms of epigastric pain and hematochezia. 2. Mild gastritis. 3. Biopsies of the duodenum and antrum and body RECOMMENDATIONS: The findings of this examination were discussed with the patient. Okay for cardiac diet. Okay to resume medications. Continue Protonix therapy for epigastric pain and possible reflux disease. Okay to resume anticoagulat ion/antiplatelet therapy if no further evidence of GI bleeding.
[2020-07-30 16:39] LABS: Glucose,Whole Blood 134 mg/dL (75-99)
[2020-07-30 20:04] LABS: Glucose,Whole Blood 136 mg/dL (75-99)
[2020-07-30 22:55] LABS: Glucose,Whole Blood 242 mg/dL (75-99)
[2020-07-31] MEDS: LEVOTHYROXINE 88 MCG TAB PO SCH (05:47)
[2020-07-31] MEDS: CYCLOBENZAPRINE 10 MG TAB PO SCH ×3 (07:14→21:05)
[2020-07-31] MEDS: RANOLAZINE 500 MG TAB.ER.12H PO SCH ×2 (07:14→19:49)
[2020-07-31] MEDS: SODIUM BICARBONATE TAB 650 MG TAB PO SCH ×2 (07:15→19:49)
[2020-07-31] MEDS: FOLIC ACID 1 MG TAB PO SCH (07:15)
[2020-07-31] MEDS: SERTRALINE 50 MG TAB PO SCH (07:15)
[2020-07-31] MEDS: CALCIUM CARBONATE 500 MG CHEWABLE PO SCH (07:15)
[2020-07-31] MEDS: PANTOPRAZOLE 40 MG TABLET PO SCH ×2 (07:15→15:16)
[2020-07-31] MEDS: ISOSORBIDE MONONITRATE ER 30 MG TAB.ER.24H PO SCH (07:15)
[2020-07-31] MEDS: hydrOXYzine pamoate 25 MG CAP PO SCH ×3 (07:15→21:05)
[2020-07-31] MEDS: HYDROcodone/APAP 5-325MG 1 EACH TAB PO SCH ×3 (07:16→21:05)
[2020-07-31] MEDS: FERROUS SULFATE 325 MG TAB PO SCH ×2 (07:16→19:50)
[2020-07-31] MEDS: ATORVASTATIN 80 MG TAB PO SCH (07:16)
[2020-07-31] MEDS: levETIRAcetam 500 MG TAB PO SCH ×2 (07:16→21:04)
[2020-07-31] MEDS: METOPROLOL TARTRATE 25 MG TAB PO SCH ×2 (07:16→19:49)
[2020-07-31] MEDS: LACTATED RINGERS 1,000 ML IV SCH (07:16)
[2020-07-31 07:33] LABS: Glucose,Whole Blood 199 mg/dL (75-99)
[2020-07-31] MEDS: INSULIN DETEMIR (LEVEMIR) 100 UNIT/ML SYR SQ SCH ×2 (07:45→19:50)
[2020-07-31] MEDS: INSULIN ASPART (NovoLOG) 100 UNIT/ML VIAL SQ SCH ×4 (07:45→19:50)
[2020-07-31 11:42] LABS: Glucose,Whole Blood 152 mg/dL (75-99)
[2020-07-31] MEDS: ASPIRIN 81 MG PO SCH (12:29)
[2020-07-31] MEDS: TICAGRELOR 90 MG TAB PO SCH ×2 (12:29→19:49)
--- NOTE | 2020-07-31 13:58 | P.PN ---
Subjective Progress Note Date: 07/31/20 Principal diagnosis: Hematochezia, GI bleed The patient is seen lying in bed reporting that she is tolerating her diet. No nausea or vomiting reported. No further signs of GI bleeding. Objective - Vital Signs Vital signs: Vital Signs Temp 98.1 F 07/31/20 07:45 Pulse 60 07/31/20 07:45 Resp 18 07/31/20 07:45 BP 122/76 07/31/20 07:45 Pulse Ox 99 07/31/20 07:45 Intake & Output 07/30/20 07/31/20 07/31/20 18:59 06:59 18:59 Intake Total 200 Balance 200 Weight 78.471 kg Intake: IV 200 Other: Voiding Method Toilet Toilet # Voids 3 4 - Exam On physical examination, patient appears comfortable in no apparent distress. HEAD: Normocephalic, atraumatic. EYES: No scleral icterus. No conjunctival injection. MOUTH: No lesions, tongue midline. NECK: Trachea midline, no gross abnormalities. ABDOMEN: Soft, nontender to palpation. Bowel sounds are positive. No organomegaly. No guarding or rigidity. EXTREMITIES: No pedal edema. SKIN: No rashes, no jaundice. NEUROLOGIC: Alert and oriented x3. No focal deficits. - Labs CBC & Chem 7: 07/30/20 11:39 07/28/20 18:29 Labs: Abnormal Lab Results - Last 24 Hours (Table) 07/30/20 07/30/20 07/30/20 Range/Units 16:39 20:00 22:39 POC Glucose (mg/dL) 134 H 136 H 242 H (75-99) mg/dL 07/31/20 07/31/20 Range/Units 07:31 11:41 POC Glucose (mg/dL) 199 H 152 H (75-99) mg/dL Assessment and Plan (1) GI bleed Narrative/Plan: 54-year-old female with multiple medical comorbidities including coronary artery disease for which she underwent coronary catheterization with stent placement in 06/2020 who presented to the hospital with complaints of blood per rectum. Multiple episodes of bright red blood and maroon-colored stool reported. Hemoglobin was normal on presentation at 12.6. No further episodes of bleeding. Patient had similar episode 6 months ago investigated with EGD and colonoscopy at [facility] significant for gastritis, polypectomy and diverticulosis. Patient also reports some discomfort in the epigastric region of her abdomen. Unclear etiology, suspicion is for hemorrhoidal bleeding exacerbated in the setting of antiplatelet therapy, now ulcer present diverticular bleed, AVM, or possible upper GI bleed given epigastric discomfort, or other etiology. No further signs of bleeding since presentation. Hemoglobin has remained stable. EGD performed in evaluation was significant only for gastritis. Current Visit: Yes Status: Acute Code(s): K92.2 - GASTROINTESTINAL HEMORRHAGE, UNSPECIFIED SNOMED Code(s): 68121861 (2) Hematochezia Current Visit: Yes Status: Acute Code(s): K92.1 - MELENA SNOMED Code(s): 347858234 Plan: Supportive care Okay for diet Continue to monitor hemoglobin and hematocrit and transfuse as needed Reports from prior endoscopic evaluation were obtained and reviewed Okay to resume any antiplatelet therapy or anticoagulation therapy at this time No bleeding on EGD, with patient also undergoing recent endoscopic evaluation with EGD and colonoscopy in 2020, no plans for further endoscopic evaluation at this time Thank you for allowing us to participate in the care of the patient, the GI service will stand by, please call us back with any questions or concerns
--- NOTE | 2020-07-31 14:22 | P.PN ---
Subjective Progress Note Date: 07/31/20 Aminta Sheikh, is a 54-year-old female who presented to [facility] emergency room with a chief complaint of rectal bleeding, patient states that she started having rectal bleeding 2 days ago and had severe bleeding on the day of admission. She was evaluated in the emergency room, v ital examination on presentation reveals a temperature of 99 pulse 77 respiration 18 blood pressure 149/76 pulse ox 98% on room air her white blood count was 5.0 hemoglobin 12.0 platelet count 305 INR 0.9 sodium 135 potassium 4.6 chloride 106 CO2 21 glucose level 305 creatinine 0.66. Patient was admitted to medical floor for further evaluation and treatment gastroenterology consultation was requested. Patient has a known history of coronary artery disease she was admitted in June 2020 and underwent cardiac catheterization with angioplasty and stent placement since then patient has been maintained on Brillinta and aspirin. Both medication were held in the emergency room on presentation awaiting gastroenterology evaluation. On review of system patient is alert and oriented 3 there is no fever or chills no headache or dizziness no chest pain no shortness of breath no cough no nausea or vomiting no abdominal pain no diarrhea no burning with urination no frequency or urgency and no hematuria no numbness or weakness in any of the extremities no change in vision or speech or gait. On 07/30/2020 patient was seen and examined on the medical floor she is alert and oriented 3 in no distress, she states that she had episodes of nausea and vomiting through the night otherwise she denies any complaints there is no fever or chills no headache or dizziness no chest pain no shortness of breath no cough no abdominal pain no diarrhea no blood in the stools no burning with urination no frequency or urgency and no hematuria. CBC is still pending, plan for gastroenterology is to proceed with EGD today, will follow closely, aspirin and Brillinta are still on hold at this time per gastroenterology recommendation. On 07/31/2020 patient was seen and examined on the medical floor she is alert and oriented 3 in no distress there is no fever or chills no headache or dizziness no chest pain no shortness of breath no cough no nausea or vomiting no abdominal pain no diarrhea no blood in the stools no burning was urination no frequency or urgency and no hematuria. Results of EGD reviewed and discussed with patient. At this time will resume Brillinta and aspirin, will monitor till tomorrow if there is no bleeding patient will be discharged home. Objective - Vital Signs Vital signs: Vital Signs Temp 98.1 F 07/31/20 07:45 Pulse 60 07/31/20 07:45 Resp 18 07/31/20 07:45 BP 122/76 07/31/20 07:45 Pulse Ox 99 07/31/20 07:45 Intake & Output 07/30/20 07/31/20 07/31/20 18:59 06:59 18:59 Intake Total 200 Balance 200 Weight 78.471 kg Intake: IV 200 Other: Voiding Method Toilet Toilet # Voids 3 4 - Exam In general patient is alert, and oriented in no apparent distress HEENT head normocephalic and atraumatic Neck is supple no JVD no goiter no lymphadenopathy Chest exam reveals a few scattered rhonchi no wheezing Cardiac exam reveals regular heart sounds no gallops no murmurs Abdomen is soft nontender no organomegaly with normal bowel sounds Extremity exam reveals no edema no cyanosis or clubbing Neurological examination reveals no gross focal deficits - Labs CBC & Chem 7: 07/30/20 11:39 07/28/20 18:29 Labs: Abnormal Lab Results - Last 24 Hours (Table) 07/30/20 07/30/20 07/30/20 Range/Units 16:39 20:00 22:39 POC Glucose (mg/dL) 134 H 136 H 242 H (75-99) mg/dL 07/31/20 07/31/20 Range/Units 07:31 11:41 POC Glucose (mg/dL) 199 H 152 H (75-99) mg/dL Assessment and Plan Plan: 1. Rectal bleeding, will monitor hemoglobin closely 2. Abdominal pain, there is no leukocytosis, computed tomography scan of the abdomen and pelvis with contrast was done in the emergency room and did not show any acute abnormality 3. Underlying history of coronary artery disease with recent angioplasty and stent placement in June 2020, at this time we are holding Brillinta and aspirin awaiting gastroenterology opinion, these medication should be resumed soon if no active bleeding due to recent stent placement. 4. Underlying history of hypertension 5. Underlying history of hyperlipidemia 6. Underlying history of diabetes mellitus type 2 requiring insulin. 7. Underlying history of bipolar disorder 8. Underlying history of seizure disorder maintained on Keppra At this time patient is admitted to medical floor home medication reviewed and reordered Brillinta and aspirin are on hold until patient is evaluated by gastroenterology Hemoglobin is stable so far will follow closely
[2020-07-31 16:35] LABS: Glucose,Whole Blood 197 mg/dL (75-99)
[2020-07-31 19:44] LABS: Glucose,Whole Blood 175 mg/dL (75-99)
[2020-07-31] MEDS: ARIPiprazole 5 MG TAB PO SCH (19:49)
[2020-07-31] MEDS: MIRTAZAPINE 45 MG TABLET PO SCH (19:49)
[2020-07-31] MEDS: QUEtiapine 50 MG TAB PO SCH (19:49)
[2020-07-31] MEDS: SODIUM CHLORIDE 0.9% 1,000 ML IV SCH (19:52)
[2020-08-01] MEDS: LEVOTHYROXINE 88 MCG TAB PO SCH (05:40)
[2020-08-01 06:56] LABS: Basophils % (A) 1 %; Eosinophils # (A) 0.1 k/uL (0-0.7); Eosinophils % (A) 3 %; HCT 35.9 % (34.0-46.0); HGB 11.5 gm/dL (11.4-16.0); Lymphocytes # (A) 0.9 k/uL (1.0-4.8); Lymphocytes % (A) 23 %; MCH 30.6 pg (25.0-35.0); MCHC 32.1 g/dL (31.0-37.0); MCV 95.2 fL (80.0-100.0); Mean Platelet Volume 6.8; Monocytes # (A) 0.2 k/uL (0-1.0); Monocytes % (A) 5 %; Neutrophils # (A) 2.7 k/uL (1.3-7.7); Neutrophils % (A) 68 %; Platelet Count 325 k/uL (150-450); RBC 3.77 m/uL (3.80-5.40); RDW 14.4 % (11.5-15.5)
[2020-08-01 07:27] LABS: Glucose,Whole Blood 76 mg/dL (75-99)
[2020-08-01] MEDS: INSULIN ASPART (NovoLOG) 100 UNIT/ML VIAL SQ SCH (07:29)
[2020-08-01] MEDS: SERTRALINE 50 MG TAB PO SCH (07:44)
[2020-08-01] MEDS: CYCLOBENZAPRINE 10 MG TAB PO SCH (07:44)
[2020-08-01] MEDS: METOPROLOL TARTRATE 25 MG TAB PO SCH (07:44)
[2020-08-01] MEDS: CALCIUM CARBONATE 500 MG CHEWABLE PO SCH (07:44)
[2020-08-01] MEDS: FERROUS SULFATE 325 MG TAB PO SCH (07:44)
[2020-08-01] MEDS: ASPIRIN 81 MG PO SCH (07:44)
[2020-08-01] MEDS: FOLIC ACID 1 MG TAB PO SCH (07:44)
[2020-08-01] MEDS: levETIRAcetam 500 MG TAB PO SCH (07:44)
[2020-08-01] MEDS: TICAGRELOR 90 MG TAB PO SCH (07:44)
[2020-08-01] MEDS: ATORVASTATIN 80 MG TAB PO SCH (07:45)
[2020-08-01] MEDS: RANOLAZINE 500 MG TAB.ER.12H PO SCH (07:45)
[2020-08-01] MEDS: HYDROcodone/APAP 5-325MG 1 EACH TAB PO SCH (07:45)
[2020-08-01] MEDS: SODIUM BICARBONATE TAB 650 MG TAB PO SCH (07:45)
[2020-08-01] MEDS: hydrOXYzine pamoate 25 MG CAP PO SCH (07:45)
[2020-08-01] MEDS: PANTOPRAZOLE 40 MG TABLET PO SCH (07:46)
[2020-08-01] MEDS: LACTATED RINGERS 1,000 ML IV SCH (07:46)
[2020-08-01] MEDS: INSULIN DETEMIR (LEVEMIR) 100 UNIT/ML SYR SQ SCH (07:46)
[2020-08-01] MEDS: ISOSORBIDE MONONITRATE ER 30 MG TAB.ER.24H PO SCH (07:46)
[2020-08-01 07:50] VITALS: BP 149/85; PULSE 70; RESP 18; TEMP 97.6
--- NOTE | 2020-08-01 10:23 | P.DS ---
Providers Date of admission: 07/31/20 14:19 Expected date of discharge: 08/01/20 Attending physician: Jerson Aguilar Primary care physician: Jerson Aguilar [facility] Course: Discharge diagnosis 1. Rectal bleeding, will monitor hemoglobin closely. Status post EGD showing no active bleeding mild gastritis. Patient has been resumed on brilinta. Hemoglobin has remained stable. Will order repeat hemoglobin for 2 days upon discharge 2. Abdominal pain, there is no leukocytosis, computed tomography scan of the abdomen and pelvis with contrast was done in the emergency room and did not show any acute abnormality 3. Underlying history of coronary artery disease with recent angioplasty and stent placement in June 2020, at this time we are holding Brillinta and aspirin awaiting gastroenterology opinion, these medication should be resumed soon if no active bleeding due to recent stent placement. Medications resumed 4. Underlying history of hypertension 5. Underlying history of hyperlipidemia 6. Underlying history of diabetes mellitus type 2 requiring insulin. 7. Underlying history of bipolar disorder 8. Underlying history of seizure disorder maintained on [facility] course Aminta Sheikh, is a 54-year-old female who presented to [facility] emergency room with a chief complaint of rectal bleeding, patient states that she started having rectal bleeding 2 days ago and had severe bleeding on the day of admission. She was evaluated in the emergency room, vital examination on presentation reveals a temperature of 99 pulse 77 respiration 18 blood pressure 149/76 pulse ox 98% on room air her white blood count was 5.0 hemoglobin 12.0 platelet count 305 INR 0.9 sodium 135 potassium 4.6 chloride 106 CO2 21 glucose level 305 creatinine 0.66. Patient was admitted to medical floor for further evaluation and treatment gastroenterology consultation was requested. Patient has a known history of coronary artery disease she was admitted in June 2020 and underwent cardiac catheterization with angioplasty and stent placement since then patient has been maintained on Brillinta and aspirin. Both medication were held in the emergency room on presentation awaiting gastroenterology evaluation. On review of system patient is alert and oriented 3 there is no fever or chills no headache or dizziness no chest pain no shortness of breath no cough no nausea or vomiting no abdominal pain no diarrhea no burning with urination no frequency or urgency and no hematuria no numbness or weakness in any of the extremities no change in vision or speech or gait. On 07/30/2020 patient was seen and examined on the medical floor she is alert and oriented 3 in no distress, she states that she had episodes of nausea and vomiting through the night otherwise she denies any complaints there is no fever or chills no headache or dizziness no chest pain no shortness of breath no cough no abdominal pain no diarrhea no blood in the stools no burning with urination no frequency or urgency and no hematuria. CBC is still pending, plan for gastroenterology is to proceed with EGD today, will follow closely, aspirin and Brillinta are still on hold at this time per gastroenterology recommendation. On 07/31/2020 patient was seen and examined on the medical floor she is alert and oriented 3 in no distress there is no fever or chills no headache or dizziness no chest pain no shortness of breath no cough no nausea or vomiting no abdominal pain no diarrhea no blood in the stools no burning was urination no frequency or urgency and no hematuria. Results of EGD reviewed and discussed with patient. At this time will resume Brillinta and aspirin, will monitor till tomorrow if there is no bleeding patient will be discharged home. On 08/01/2020 patient is alert and oriented 3. Patient has had no further issues throughout the night. No signs of further bleeding. Hemoglobin remained stable at 11.5. Patient was restarted on aspirin and Brilinta. Patient is very eager to go home. At the time of discharge patient home patient follow-up with PCP for further management. Repeat ABC will be ordered for 3 days. At this time patient denies chest pain or shortness of breath. Patient denies diarrhea. Patient denies any urinary burning Patient Condition at Discharge: Stable Plan - Discharge Summary Discharge Rx Participant: Yes New Discharge Prescriptions: Continue Folic Acid 1 mg PO DAILY Sertraline [Zoloft] 50 mg PO DAILY Ferrous Sulfate [Iron (65 MG Elemental)] 325 mg PO BID Calcium Carbonate [Calcium] 600 mg PO DAILY Ranolazine [Ranexa] 1,000 mg PO BID QUEtiapine [SEROquel] 50 mg PO HS Mirtazapine [Remeron] 45 mg PO HS INSULIN ASPART (NovoLOG) [NovoLOG (formulary)] See Protocol SQ ACHS Metoprolol Tartrate [Lopressor] 25 mg PO BID Levothyroxine Sodium [Synthroid] 175 mcg PO DAILY levETIRAcetam [Keppra] 500 mg PO BID Aspirin 81 mg PO DAILY hydrOXYzine pamoate [Vistaril] 25 mg PO TID Isosorbide Mononitrate ER [Imdur] 30 mg PO DAILY Cyclobenzaprine [Flexeril] 10 mg PO TID Atorvastatin [Lipitor] 80 mg PO DAILY ARIPiprazole [Abilify] 5 mg PO HS Loperamide [Imodium] 2 mg PO QID PRN PRN Reason: Diarrhea Ticagrelor [Brilinta] 90 mg PO BID tab Nitroglycerin Sl Tabs [Nitrostat] 0.4 mg SUBLINGUAL Q5M PRN 90 Days #100 tab PRN Reason: Chest Pain Pantoprazole [Protonix] 40 mg PO AC-BRKFST 30 Days #30 tablet.dr Sodium Bicarbonate Tab 650 mg PO BID 30 Days #60 tab Insulin Glargine,Hum.rec.anlog [Lantus Solostar] 30 unit SQ BID #0 Lidocaine 5% Patch [Lidoderm 5% Patch] 2 patch TOPICAL DAILY@1300 PRN PRN Reason: lower back pain No Action HYDROcodone/APAP 5-325MG [[place] 5-325] 1 tab PO TID Discharge Medication List ARIPiprazole [Abilify] 5 mg PO HS 05/21/20 [History] Aspirin 81 mg PO DAILY 05/21/20 [History] Atorvastatin [Lipitor] 80 mg PO DAILY 05/21/20 [History] Calcium Carbonate [Calcium] 600 mg PO DAILY 05/21/20 [History] Cyclobenzaprine [Flexeril] 10 mg PO TID 05/21/20 [History] Ferrous Sulfate [Iron (65 MG Elemental)] 325 mg PO BID 05/21/20 [History] Folic Acid 1 mg PO DAILY 05/21/20 [History] INSULIN ASPART (NovoLOG) [NovoLOG (formulary)] See Protocol SQ ACHS 05/21/20 [History] Isosorbide Mononitrate ER [Imdur] 30 mg PO DAILY 05/21/20 [History] Levothyroxine Sodium [Synthroid] 175 mcg PO DAILY 05/21/20 [History] Metoprolol Tartrate [Lopressor] 25 mg PO BID 05/21/20 [History] Mirtazapine [Remeron] 45 mg PO HS 05/21/20 [History] QUEtiapine [SEROquel] 50 mg PO HS 05/21/20 [History] Ranolazine [Ranexa] 1,000 mg PO BID 05/21/20 [History] Sertraline [Zoloft] 50 mg PO DAILY 05/21/20 [History] hydrOXYzine pamoate [Vistaril] 25 mg PO TID 05/21/20 [History] levETIRAcetam [Keppra] 500 mg PO BID 05/21/20 [History] Loperamide [Imodium] 2 mg PO QID PRN 06/08/20 [History] Nitroglycerin Sl Tabs [Nitrostat] 0.4 mg SUBLINGUAL Q5M PRN 90 Days #100 tab 06/27/20 [Rx] Ticagrelor [Brilinta] 90 mg PO BID tab 06/27/20 [Rx] HYDROcodone/APAP 5-325MG [A[place] 5-325] 1 tab PO TID 07/06/20 [History] Insulin Glargine,Hum.rec.anlog [Lantus Solostar] 30 unit SQ BID #0 07/14/20 [Rx] Pantoprazole [Protonix] 40 mg PO AC-BRKFST 30 Days #30 tablet.dr 07/14/20 [Rx] Sodium Bicarbonate Tab 650 mg PO BID 30 Days #60 tab 07/14/20 [Rx] Lidocaine 5% Patch [Lidoderm 5% Patch] 2 patch TOPICAL DAILY@1300 PRN 07/20/20 [History] Follow up Appointment(s)/Referral(s): Jerson Aguilar MD [Primary Care Provider] - 1-2 days
[2020-08-01 12:17] LABS: African American GFR (CKD) 84.6 (60.0-200.0); Albumin 3.9 g/dL (3.80-4.90); Albumin/Globulin Ratio 2.29 (1.60-3.17); Anion Gap 1.5 mmol/L (4.00-12.00); BUN/Creat Ratio 17.78 Ratio (12.00-20.00); Carbon Dioxide 26.5 mmol/L (21.6-31.8); Globulin 1.7 g/dL (1.6-3.3); Potassium 3.6 mmol/L (3.5-5.5); Total Bilirubin 0.2 mg/dL (0.3-1.2); Total Protein 5.6 g/dL (6.2-8.2)
== END 2020-08-01 11:11 | disposition home or self-care (01) | DRG 379 ==
LOC: EC 17:16 → 5NMEDONC 20:58 → OBSVTOIN 07-31 14:19
PROVIDERS: ADMIT Internal Medicine; ATTEND Internal Medicine
PROC: 0DB78ZX Excision of Stomach, Pylorus, Via Natural or Artificial Opening Endoscopic, Diagnostic (ICD-10-PCS; principal; 2020-07-30 07:50)
PROC: 0DB98ZX Excision of Duodenum, Via Natural or Artificial Opening Endoscopic, Diagnostic (ICD-10-PCS; principal; 2020-07-30 07:50)
PROC: 0DB68ZX Excision of Stomach, Via Natural or Artificial Opening Endoscopic, Diagnostic (ICD-10-PCS; principal; 2020-07-30 07:50)
DX: K62.5 Hemorrhage of anus and rectum (principal); E11.9 Type 2 diabetes mellitus without complications; E78.5 Hyperlipidemia, unspecified; Z71.6 Tobacco abuse counseling; F17.210 Nicotine dependence, cigarettes, uncomplicated; F31.9 Bipolar disorder, unspecified; G40.909 Epilepsy, unspecified, not intractable, without status epilepticus; I10 Essential (primary) hypertension; I25.10 Atherosclerotic heart disease of native coronary artery without angina pectoris; K29.70 Gastritis, unspecified, without bleeding; K57.90 Diverticulosis of intestine, part unspecified, without perforation or abscess without bleeding; Z79.02 Long term (current) use of antithrombotics/antiplatelets; Z79.4 Long term (current) use of insulin; Z79.82 Long term (current) use of aspirin; Z79.890 Hormone replacement therapy; Z79.899 Other long term (current) drug therapy; Z95.1 Presence of aortocoronary bypass graft; Z95.5 Presence of coronary angioplasty implant and graft; Z95.828 Presence of other vascular implants and grafts; Z79.01 Long term (current) use of anticoagulants; Z95.2 Presence of prosthetic heart valve; Z82.49 Family history of ischemic heart disease and other diseases of the circulatory system; Z88.8 Allergy status to other drugs, medicaments and biological substances; Z91.013 Allergy to seafood
CPT/HCPCS: 36415; 43239; 74177; 80053; 83036; 83605; 83735; 85025; 85610; 85730; 86850; 86900; 86901; 88305; 93005; 96374; 99285

== ENCOUNTER 2020-08-07 16:11 | Observation (INO) | payer MEDICARE, OTHER ==
--- NOTE | 2020-08-07 16:39 | ED ---
General Adult HPI - General Chief complaint: GI Bleed Stated complaint: Rectal Bleed Time Seen by Provider: 08/07/20 16:21 Source: patient, EMS Mode of arrival: EMS Limitations: no limitations - History of Present Illness Initial comments: Patient presents the ED by ambulance for evaluation. Patient states that she was recently discharged from the hospital after being admitted for rectal bleeding, and she states that her rectal bleeding returned yesterday. Patient reports having bright red blood per rectum since yesterday. She also states that she vomited once yesterday, but she denies noticing any blood or coffee grounds in her emesis. Patient also admits to having bilateral lower abdominal pain. Patient reports taking Brilinta and aspirin. Patient also admits to feeling somewhat lightheaded. Patient denies trauma or injury, fever or chills, headache, chest pain, dyspnea, palpitations, syncope, back or flank pain, melena, diarrhea or constipation, dysuria/hematuria/urinary frequency/urinary symptoms, or any other symptoms or complaints. Patient did have an upper endoscopy during her recent hospital admission, but she denies having had a colonoscopy at that time. - Related Data Home Medications Medication Instructions Recorded Confirmed ARIPiprazole [Abilify] 5 mg PO HS 05/21/20 08/07/20 Atorvastatin [Lipitor] 80 mg PO DAILY 05/21/20 08/07/20 Calcium Carbonate [Calcium] 600 mg PO DAILY 05/21/20 08/07/20 Cyclobenzaprine [Flexeril] 10 mg PO TID 05/21/20 08/07/20 Ferrous Sulfate [Iron (65 MG 325 mg PO BID 05/21/20 08/07/20 Elemental)] Folic Acid 1 mg PO DAILY 05/21/20 08/07/20 INSULIN ASPART (NovoLOG) [NovoLOG See Protocol SQ ACHS 05/21/20 08/07/20 (formulary)] Isosorbide Mononitrate ER [Imdur] 30 mg PO DAILY 05/21/20 08/07/20 Levothyroxine Sodium [Synthroid] 175 mcg PO DAILY 05/21/20 08/07/20 Metoprolol Tartrate [Lopressor] 25 mg PO BID 05/21/20 08/07/20 Mirtazapine [Remeron] 45 mg PO HS 05/21/20 08/07/20 QUEtiapine [SEROquel] 50 mg PO HS 05/21/20 08/07/20 Ranolazine [Ranexa] 1,000 mg PO BID 05/21/20 08/07/20 Sertraline [Zoloft] 50 mg PO DAILY 05/21/20 08/07/20 hydrOXYzine pamoate [Vistaril] 25 mg PO TID 05/21/20 08/07/20 levETIRAcetam [Keppra] 500 mg PO BID 05/21/20 08/07/20 Loperamide [Imodium] 2 mg PO QID PRN 06/08/20 08/07/20 Lidocaine 5% Patch [Lidoderm 5% 2 patch TOPICAL DAILY@1300 PRN 07/20/20 08/07/20 Patch] Previous Rx's Medication Instructions Recorded Nitroglycerin Sl Tabs [Nitrostat] 0.4 mg SUBLINGUAL Q5M PRN 90 Days 06/27/20 #100 tab Ticagrelor [Brilinta] 90 mg PO BID tab 06/27/20 Insulin Glargine,Hum.rec.anlog 30 unit SQ BID #0 07/14/20 [Lantus Solostar] Pantoprazole [Protonix] 40 mg PO AC-BRKFST 30 Days #30 07/14/20 tablet. Sodium Bicarbonate Tab 650 mg PO BID 30 Days #60 tab 07/14/20 HYDROcodone/APAP 5-325MG [[place] 1 tab PO TID 3 Days #9 tab 08/01/20 5-325] Allergies Allergy/AdvReac Type Severity Reaction Status Date / Time gabapentin Allergy Anaphylaxis Verified 08/07/20 17:36 shellfish derived [Crab] Allergy Rash/Hives Verified 08/07/20 17:36 Review of Systems ROS Statement: Those systems with pertinent positive or pertinent negative responses have been documented in the HPI. ROS Other: All systems not noted in ROS Statement are negative. Past Medical History Past Medical History: Coronary Artery Disease (CAD), Chest Pain / Angina, Diabetes Mellitus, Hyperlipidemia, Hypertension, Musculoskeletal Disorder History of Any Multi-Drug Resistant Organisms: None Reported Past Surgical History: Bladder Surgery, Coronary Bypass/CABG, Heart Catheterization, Heart Catheterization With Stent Additional Past Surgical History / Comment(s): CABG in 2013, Mitral valve on 2016, Heart Stent, bilateral leg stent Past Anesthesia/Blood Transfusion Reactions: No Reported Reaction Date of Last Stent Placement:: 06/25/20 Past Psychological History: Bipolar Smoking Status: Current every day smoker Past Alcohol Use History: None Reported Past Drug Use History: None Reported - Past Family History Father Additional Family Medical History / Comment(s): heart disease General Exam Limitations: no limitations General appearance: alert, in no apparent distress Head exam: Present: atraumatic, normocephalic Eye exam: Present: normal appearance, EOMI ENT exam: Present: mucous membranes moist Neck exam: Present: other (Trachea is in midline) Respiratory exam: Present: normal lung sounds bilaterally. Absent: respiratory distress, wheezes, rales, rhonchi, stridor Cardiovascular Exam: Present: regular rate, normal rhythm, normal heart sounds, other (Normal radial pulses bilaterally) GI/Abdominal exam: Present: soft, normal bowel sounds, other (Moderate right lower and left lower quadrant abdominal tenderness). Absent: distended, guarding, rebound Rectal exam: Present: normal inspection, normal rectal tone, other (Brown stool is noted in rectal vault). Absent: tenderness Extremities exam: Absent: pedal edema Neurological exam: Present: alert, oriented X3. Absent: motor sensory deficit Psychiatric exam: Present: normal affect, normal mood Skin exam: Present: warm, dry, intact, normal color Course Vital Signs 08/07/20 16:15 Temperature 98.0 F Pulse Rate 88 Respiratory 18 Rate Blood Pressure 168/77 O2 Sat by Pulse 99 Oximetry - Reevaluation(s) Reevaluation #1: 08/07/20 18:43 Case, H&P and test results were discussed with Dr. Aguilar. He accepts hospital admission. He agrees with GI consultation. He has no further recommendations at this time. 08/07/20 18:52 Patient states that her abdominal pain has improved with ED treatment. Patient's abdomen remains soft and nontender on examination. Patient has not had any vomiting or rectal bleeding while in the ED. Patient is aware of her test results, and she agrees with hospital admission at this time. Medical Decision Making - Medical Decision Making Patient has not had any rectal bleeding while in the ED. Patient has been hemodynamically stable while in the ED. Patient's hemoglobin is within normal limits (13.3) and has improved when compared to her most recent prior level. Patient's CT abdomen/pelvis with IV contrast is negative. Patient is hyperglycemic, but she has a normal serum bicarbonate level, as well as a normal anion gap. Patient has been given IV fluids, as well as subcutaneous regular insulin in the ED. Will admit the patient to the hospital for further evaluation, monitoring and GI consultation given her reported rectal bleeding. Dr. Aguilar has accepted hospital admission. - Lab Data Result diagrams: 08/07/20 16:48 08/07/20 16:48 Lab Results 08/07/20 08/07/20 08/07/20 Range/Units 16:48 16:48 16:48 WBC 7.3 (3.8-10.6) k/uL RBC 4.29 (3.80-5.40) m/uL Hgb 13.3 (11.4-16.0) gm/dL Hct 40.0 (34.0-46.0) % MCV 93.2 (80.0-100.0) fL MCH 31.1 (25.0-35.0) pg MCHC 33.4 (31.0-37.0) g/dL RDW 13.8 (11.5-15.5) % Plt Count 268 (150-450) k/uL MPV 6.9 Neutrophils % 80 % Lymphocytes % 13 % Monocytes % 5 % Eosinophils % 1 % Basophils % 1 % Neutrophils # 5.8 (1.3-7.7) k/uL Lymphocytes # 0.9 L (1.0-4.8) k/uL Monocytes # 0.4 (0-1.0) k/uL Eosinophils # 0.0 (0-0.7) k/uL Basophils # 0.1 (0-0.2) k/uL PT 9.6 (9.0-12.0) sec INR 0.9 (<1.2) APTT 22.6 (22.0-30.0) sec Sodium 136 L (137-145) mmol/L Potassium 4.3 (3.5-5.1) mmol/L Chloride 101 (98-107) mmol/L Carbon Dioxide 25 (22-30) mmol/L Anion Gap 10 mmol/L BUN 12 (7-17) mg/dL Creatinine 0.81 (0.52-1.04) mg/dL Est GFR (CKD-EPI)AfAm >90 (>60 ml/min/1.73 sqM) Est GFR (CKD-EPI)NonAf 83 (>60 ml/min/1.73 sqM) Glucose 464 H (74-99) mg/dL Plasma Lactic Acid Cordell (0.7-2.0) mmol/L Calcium 9.3 (8.4-10.2) mg/dL Total Bilirubin 0.5 (0.2-1.3) mg/dL AST 24 (14-36) U/L ALT 17 (4-34) U/L Alkaline Phosphatase 146 H (38-126) U/L Total Protein 7.7 (6.3-8.2) g/dL Albumin 4.5 (3.5-5.0) g/dL Lipase 40 (23-300) U/L Urine Color Urine Appearance (Clear) Urine pH (5.0-8.0) Ur Specific Branch (1.001-1.035) Urine Protein (Negative) Urine Glucose (UA) (Negative) Urine Ketones (Negative) Urine Blood (Negative) Urine Nitrite (Negative) Urine Bilirubin (Negative) Urine Urobilinogen (<2.0) mg/dL Ur Leukocyte Esterase (Negative) Urine RBC (0-5) /hpf Urine WBC (0-5) /hpf Ur Squamous Epith Cells (0-4) /hpf Stool Occult Blood (Negative) Blood Type Blood Type Recheck Bld Type Recheck Status Antibody Screen Spec Expiration Date 08/07/20 08/07/20 08/07/20 Range/Units 16:48 16:48 16:54 WBC (3.8-10.6) k/uL RBC (3.80-5.40) m/uL Hgb (11.4-16.0) gm/dL Hct (34.0-46.0) % MCV (80.0-100.0) fL MCH (25.0-35.0) pg MCHC (31.0-37.0) g/dL RDW (11.5-15.5) % Plt Count (150-450) k/uL MPV Neutrophils % % Lymphocytes % % Monocytes % % Eosinophils % % Basophils % % Neutrophils # (1.3-7.7) k/uL Lymphocytes # (1.0-4.8) k/uL Monocytes # (0-1.0) k/uL Eosinophils # (0-0.7) k/uL Basophils # (0-0.2) k/uL PT (9.0-12.0) sec INR (<1.2) APTT (22.0-30.0) sec Sodium (137-145) mmol/L Potassium (3.5-5.1) mmol/L Chloride (98-107) mmol/L Carbon Dioxide (22-30) mmol/L Anion Gap mmol/L BUN (7-17) mg/dL Creatinine (0.52-1.04) mg/dL Est GFR (CKD-EPI)AfAm (>60 ml/min/1.73 sqM) Est GFR (CKD-EPI)NonAf (>60 ml/min/1.73 sqM) Glucose (74-99) mg/dL Plasma Lactic Acid Cordell 2.4 H* (0.7-2.0) mmol/L Calcium (8.4-10.2) mg/dL Total Bilirubin (0.2-1.3) mg/dL AST (14-36) U/L ALT (4-34) U/L Alkaline Phosphatase (38-126) U/L Total Protein (6.3-8.2) g/dL Albumin (3.5-5.0) g/dL Lipase (23-300) U/L Urine Color Urine Appearance (Clear) Urine pH (5.0-8.0) Ur Specific Branch (1.001-1.035) Urine Protein (Negative) Urine Glucose (UA) (Negative) Urine Ketones (Negative) Urine Blood (Negative) Urine Nitrite (Negative) Urine Bilirubin (Negative) Urine Urobilinogen (<2.0) mg/dL Ur Leukocyte Esterase (Negative) Urine RBC (0-5) /hpf Urine WBC (0-5) /hpf Ur Squamous Epith Cells (0-4) /hpf Stool Occult Blood Negative (Negative) Blood Type A Positive Blood Type Recheck A Pos Bld Type Recheck Status No Antibody Screen NEGATIVE Spec Expiration Date 08/10/2020234708/07/20 Range/Units 17:07 WBC (3.8-10.6) k/uL RBC (3.80-5.40) m/uL Hgb (11.4-16.0) gm/dL Hct (34.0-46.0) % MCV (80.0-100.0) fL MCH (25.0-35.0) pg MCHC (31.0-37.0) g/dL RDW (11.5-15.5) % Plt Count (150-450) k/uL MPV Neutrophils % % Lymphocytes % % Monocytes % % Eosinophils % % Basophils % % Neutrophils # (1.3-7.7) k/uL Lymphocytes # (1.0-4.8) k/uL Monocytes # (0-1.0) k/uL Eosinophils # (0-0.7) k/uL Basophils # (0-0.2) k/uL PT (9.0-12.0) sec INR (<1.2) APTT (22.0-30.0) sec Sodium (137-145) mmol/L Potassium (3.5-5.1) mmol/L Chloride (98-107) mmol/L Carbon Dioxide (22-30) mmol/L Anion Gap mmol/L BUN (7-17) mg/dL Creatinine (0.52-1.04) mg/dL Est GFR (CKD-EPI)AfAm (>60 ml/min/1.73 sqM) Est GFR (CKD-EPI)NonAf (>60 ml/min/1.73 sqM) Glucose (74-99) mg/dL Plasma Lactic Acid Cordell (0.7-2.0) mmol/L Calcium (8.4-10.2) mg/dL Total Bilirubin (0.2-1.3) mg/dL AST (14-36) U/L ALT (4-34) U/L Alkaline Phosphatase (38-126) U/L Total Protein (6.3-8.2) g/dL Albumin (3.5-5.0) g/dL Lipase (23-300) U/L Urine Color Light Yellow Urine Appearance Clear (Clear) Urine pH 6.5 (5.0-8.0) Ur Specific Branch 1.030 (1.001-1.035) Urine Protein 2+ H (Negative) Urine Glucose (UA) 4+ H (Negative) Urine Ketones Negative (Negative) Urine Blood Negative (Negative) Urine Nitrite Negative (Negative) Urine Bilirubin Negative (Negative) Urine Urobilinogen <2.0 (<2.0) mg/dL Ur Leukocyte Esterase Negative (Negative) Urine RBC 1 (0-5) /hpf Urine WBC 2 (0-5) /hpf Ur Squamous Epith Cells <1 (0-4) /hpf Stool Occult Blood (Negative) Blood Type Blood Type Recheck Bld Type Recheck Status Antibody Screen Spec Expiration Date - Radiology Data Radiology results: report reviewed (CT abdomen/pelvis with IV contrast: Moderate atherosclerotic vascular disease, no acute abnormality of the abdomen and pelvis, no adverse change compared to old exam) Disposition Clinical Impression: Rectal bleeding, Hyperglycemia, Abdominal pain Disposition: ADMITTED IP TO THIS HOSP Condition: Stable Is patient prescribed a controlled substance at d/c from ED?: No Referrals: Jerson Aguilar MD [Primary Care Provider] - 1-2 days Time of Disposition: 18:44
[2020-08-07] MEDS ORDERED: SODIUM CHLORIDE 0.9% 1,000 ML IV STA (16:45)
[2020-08-07 17:08] LABS: Basophils # (A) 0.1 k/uL (0-0.2); Basophils % (A) 1 %; Eosinophils % (A) 1 %; HGB 13.3 gm/dL (11.4-16.0); Lymphocytes # (A) 0.9 k/uL (1.0-4.8); Lymphocytes % (A) 13 %; MCH 31.1 pg (25.0-35.0); MCHC 33.4 g/dL (31.0-37.0); MCV 93.2 fL (80.0-100.0); Mean Platelet Volume 6.9; Monocytes # (A) 0.4 k/uL (0-1.0); Monocytes % (A) 5 %; Neutrophils # (A) 5.8 k/uL (1.3-7.7); Neutrophils % (A) 80 %; Platelet Count 268 k/uL (150-450); RBC 4.29 m/uL (3.80-5.40); RDW 13.8 % (11.5-15.5); WBC 7.3 k/uL (3.8-10.6)
[2020-08-07 17:19] LABS: ALT 17 U/L (4-34); AST 24 U/L (14-36); African American GFR (CKD) >90 (>60 ml/min/1.73 sqM); Albumin 4.5 g/dL (3.5-5.0); Alkaline Phosphatase 146 U/L (38-126); Anion Gap 10 mmol/L; Blood Urea Nitrogen 12 mg/dL (7-17); Calcium 9.3 mg/dL (8.4-10.2); Carbon Dioxide 25 mmol/L (22-30); Chloride 101 mmol/L (98-107); Glucose 464 mg/dL (74-99); Lipase 40 U/L (23-300); Non-African American GFR(CKD) 83 (>60 ml/min/1.73 sqM); Potassium 4.3 mmol/L (3.5-5.1); Sodium 136 mmol/L (137-145); Total Bilirubin 0.5 mg/dL (0.2-1.3); Total Protein 7.7 g/dL (6.3-8.2)
[2020-08-07 17:27] LABS: INR 0.9 (<1.2); Partial Thromboplastin Time 22.6 sec (22.0-30.0); Prothrombin Time 9.6 sec (9.0-12.0)
[2020-08-07 17:30] LABS: Appearance,Urine Clear (Clear); Bilirubin,Urine Negative (Negative); Blood,Urine Negative (Negative); Color,Urine Light Yellow; Glucose,Urine (UA) 4+ (Negative); Ketones,Urine Negative (Negative); Leukocyte Esterase,Urine Negative (Negative); Nitrite,Urine Negative (Negative); PH, Urine 6.5 (5.0-8.0); Protein,Urine 2+ (Negative); RBC,Urine 1 /hpf (0-5); Squamous Epithelial Cell,Urine <1 /hpf (0-4); Urobilinogen,Urine <2.0 mg/dL (<2.0); WBC,Urine 2 /hpf (0-5)
[2020-08-07] MEDS ORDERED: MORPHINE SULFATE 4 MG/ML SYRINGE IVP STA (17:46)
[2020-08-07] MEDS ORDERED: ONDANSETRON 4 MG/2 ML VIAL IVP STA (17:47)
[2020-08-07] MEDS ORDERED: INSULIN REGULAR 100 UNIT/ML VIAL SQ ONE (17:48)
--- NOTE | 2020-08-07 17:54 | CT ---
EXAMINATION TYPE: CT abdomen pelvis w con DATE OF EXAM: 08/07/2020 COMPARISON: 07/28/2020 HISTORY: Rectal bleeding, lower abdominal pain. CT DLP: 1058 mGycm Automated exposure control for dose reduction was used. CONTRAST: Performed with IV Contrast, patient injected with 100 mL of Isovue 300. The lung bases are clear. There is no pleural effusion. There is no pericardial effusion. Small hiata l hernia. There are clips from cholecystectomy. Liver spleen pancreas appear intact. The bile ducts a re not dilated. Stomach is intact. There is no adrenal mass. Kidneys show satisfactory contrast opacification. There is no hydronephrosi s. Ureters are not dilated. Delayed images show normal renal excretion. Bladder distends smoothly. Th ere is no inguinal hernia. There is no free fluid in the pelvis there is no evidence of pelvic mass. There is surgical clip in the right lower quadrant. Appendix is not seen. There is no sign of thicken ed appendix There is no mesenteric edema. There is no ascites or free air. There is no evidence of bowel obstruct ion there is moderate atherosclerotic vascular calcification in the abdomen. Lumbar spine is intact. There is no compression fracture. The bony pelvis is intact. IMPRESSION: Moderate atherosclerotic vascular disease. No acute abnormality of the abdomen and pelvis. No adverse change compared to old exam.
[2020-08-07] MEDS ORDERED: PANTOPRAZOLE 40 MG/10 ML VIAL IVP STA (18:43)
[2020-08-07] MEDS ORDERED: ONDANSETRON 4 MG/2 ML VIAL IVP PRN (18:44)
[2020-08-07] MEDS ORDERED: NALOXONE 0.4 MG/ML 1 ML VIAL IV PRN (18:44)
[2020-08-07] MEDS: SODIUM CHLORIDE 0.9% 1,000 ML IV SCH (19:14)
[2020-08-07 19:19] LABS: Glucose,Whole Blood 353 mg/dL (75-99)
[2020-08-07] MEDS: MORPHINE SULFATE 4 MG/ML SYRINGE IV PRN (22:35)
[2020-08-08] MEDS: MORPHINE SULFATE 4 MG/ML SYRINGE IV PRN ×5 (03:20→21:22)
[2020-08-08 05:45] LABS: Basophils # (A) 0.1 k/uL (0-0.2); Basophils % (A) 1 %; Eosinophils # (A) 0.1 k/uL (0-0.7); Eosinophils % (A) 2 %; HGB 12.6 gm/dL (11.4-16.0); Lymphocytes # (A) 2.1 k/uL (1.0-4.8); Lymphocytes % (A) 31 %; MCH 29.8 pg (25.0-35.0); MCHC 30.8 g/dL (31.0-37.0); MCV 96.9 fL (80.0-100.0); Mean Platelet Volume 7.1; Monocytes # (A) 0.3 k/uL (0-1.0); Monocytes % (A) 5 %; Neutrophils % (A) 59 %; Platelet Count 264 k/uL (150-450); RBC 4.23 m/uL (3.80-5.40); RDW 14.1 % (11.5-15.5); WBC 6.7 k/uL (3.8-10.6)
[2020-08-08] MEDS: LEVOTHYROXINE 100 MCG TAB PO SCH (06:17)
[2020-08-08] MEDS: LEVOTHYROXINE 75 MCG TAB PO SCH (06:17)
[2020-08-08] MEDS: INSULIN ASPART (NovoLOG) 100 UNIT/ML VIAL SQ SCH ×4 (08:17→21:17)
[2020-08-08] MEDS: SODIUM CHLORIDE 0.9% 1,000 ML IV SCH ×2 (08:18→21:16)
[2020-08-08 08:20] LABS: Glucose,Whole Blood 224 mg/dL (75-99)
[2020-08-08] MEDS ORDERED: TICAGRELOR 90 MG TAB PO SCH (09:00)
[2020-08-08 09:02] LABS: African American GFR (CKD) 96.9 (60.0-200.0); Albumin 4.4 g/dL (3.80-4.90); Albumin/Globulin Ratio 2.2 (1.60-3.17); Anion Gap 10.5 mmol/L (4.00-12.00); BUN/Creat Ratio 18.75 Ratio (12.00-20.00); Calcium 8.5 mg/dL (8.7-10.3); Carbon Dioxide 19.5 mmol/L (21.6-31.8); Non-African American GFR(CKD) 83.6 (60.0-200.0); Potassium 4.3 mmol/L (3.5-5.5); Total Bilirubin 0.4 mg/dL (0.2-1.2); Total Protein 6.4 g/dL (6.2-8.2)
[2020-08-08] MEDS: CYCLOBENZAPRINE 10 MG TAB PO SCH ×3 (09:27→21:19)
[2020-08-08] MEDS: hydrOXYzine pamoate 25 MG CAP PO SCH ×3 (09:27→21:21)
[2020-08-08] MEDS: SODIUM BICARBONATE TAB 650 MG TAB PO SCH ×2 (09:27→21:18)
[2020-08-08] MEDS: FERROUS SULFATE 325 MG TAB PO SCH ×2 (09:27→21:16)
[2020-08-08] MEDS: ATORVASTATIN 80 MG TAB PO SCH (09:27)
[2020-08-08] MEDS: CALCIUM CARBONATE 500 MG CHEWABLE PO SCH (09:27)
[2020-08-08] MEDS: METOPROLOL TARTRATE 25 MG TAB PO SCH ×2 (09:28→21:17)
[2020-08-08] MEDS: levETIRAcetam 500 MG TAB PO SCH ×2 (09:28→21:17)
[2020-08-08] MEDS: FOLIC ACID 1 MG TAB PO SCH (09:28)
[2020-08-08] MEDS: ISOSORBIDE MONONITRATE ER 30 MG TAB.ER.24H PO SCH (09:28)
[2020-08-08] MEDS: SERTRALINE 50 MG TAB PO SCH (09:28)
[2020-08-08] MEDS: RANOLAZINE 500 MG TAB.ER.12H PO SCH ×2 (09:29→21:18)
[2020-08-08] MEDS: INSULIN DETEMIR (LEVEMIR) 100 UNIT/ML SYR SQ SCH ×2 (09:55→21:17)
[2020-08-08 11:38] LABS: Glucose,Whole Blood 125 mg/dL (75-99)
--- NOTE | 2020-08-08 11:50 | P.HPIM ---
History of Present Illness H&P Date: 08/08/20 Chief Complaint: Rectal bleeding This is a 55-year-old female patient who presented to the ER with complaints of rectal bleeding. Patient recently admitted for same issue and underwent EGD showing no active bleeding with mild gastritis. Patient is maintained on Brilinta for angioplasty with stent in June 2020. Patient reports that rectal bleeding started yesterday. Patient also complains of lower abdomen discomfort and cramping. Reports that she vomited once yesterday but denies any nausea or vomiting at this time denies any coffee-ground emesis. Patient has been maintained on her Brilinta and aspirin. Patient does have a past medical history of coronary artery disease, diabetes mellitus, essential hypertension, hyperlipidemia and nicotine dependence. hemoGlobin currently stable at 12.4. GI services have been consulted and plans for colonoscopy tomorrow. At this time patient plans mild abdomen discomfort. Patient denies any nausea or vomiting. Patient denies any urinary burning or frequency Review of Systems please refer to HPI otherwise unremarkable Past Medical History Past Medical History: Coronary Artery Disease (CAD), Chest Pain / Angina, Diabetes Mellitus, Hyperlipidemia, Hypertension, Musculoskeletal Disorder History of Any Multi-Drug Resistant Organisms: None Reported Past Surgical History: Bladder Surgery, Coronary Bypass/CABG, Heart Catheterization, Heart Catheterization With Stent Additional Past Surgical History / Comment(s): CABG in 2013, Mitral valve on 2016, Heart Stent, bilateral leg stent Past Anesthesia/Blood Transfusion Reactions: No Reported Reaction Date of Last Stent Placement:: 06/25/20 Past Psychological History: Bipolar Smoking Status: Current every day smoker, Current some day smoker Past Alcohol Use History: None Reported Past Drug Use History: None Reported - Past Family History Father Family Medical History: Coronary Artery Disease (CAD) Additional Family Medical History / Comment(s): heart disease Medications and Allergies Home Medications Medication Instructions Recorded Confirmed Type ARIPiprazole [Abilify] 5 mg PO HS 05/21/20 08/07/20 History Atorvastatin [Lipitor] 80 mg PO DAILY 05/21/20 08/07/20 History Calcium Carbonate [Calcium] 600 mg PO DAILY 05/21/20 08/07/20 History Cyclobenzaprine [Flexeril] 10 mg PO TID 05/21/20 08/07/20 History Ferrous Sulfate [Iron (65 MG 325 mg PO BID 05/21/20 08/07/20 History Elemental)] Folic Acid 1 mg PO DAILY 05/21/20 08/07/20 History INSULIN ASPART (NovoLOG) [NovoLOG See Protocol SQ ACHS 05/21/20 08/07/20 History (formulary)] Isosorbide Mononitrate ER [Imdur] 30 mg PO DAILY 05/21/20 08/07/20 History Levothyroxine Sodium [Synthroid] 175 mcg PO DAILY 05/21/20 08/07/20 History Metoprolol Tartrate [Lopressor] 25 mg PO BID 05/21/20 08/07/20 History Mirtazapine [Remeron] 45 mg PO HS 05/21/20 08/07/20 History QUEtiapine [SEROquel] 50 mg PO HS 05/21/20 08/07/20 History Ranolazine [Ranexa] 1,000 mg PO BID 05/21/20 08/07/20 History Sertraline [Zoloft] 50 mg PO DAILY 05/21/20 08/07/20 History hydrOXYzine pamoate [Vistaril] 25 mg PO TID 05/21/20 08/07/20 History levETIRAcetam [Keppra] 500 mg PO BID 05/21/20 08/07/20 History Loperamide [Imodium] 2 mg PO QID PRN 06/08/20 08/07/20 History Nitroglycerin Sl Tabs [Nitrostat] 0.4 mg SUBLINGUAL Q5M PRN 90 Days 06/27/20 08/07/20 Rx #100 tab Ticagrelor [Brilinta] 90 mg PO BID tab 06/27/20 08/07/20 Rx Insulin Glargine,Hum.rec.anlog 30 unit SQ BID #0 07/14/20 08/07/20 Rx [Lantus Solostar] Pantoprazole [Protonix] 40 mg PO AC-BRKFST 30 Days #30 07/14/20 08/07/20 Rx tablet. Sodium Bicarbonate Tab 650 mg PO BID 30 Days #60 tab 07/14/20 08/07/20 Rx Lidocaine 5% Patch [Lidoderm 5% 2 patch TOPICAL DAILY@1300 PRN 07/20/20 08/07/20 History Patch] HYDROcodone/APAP 5-325MG [[place] 1 tab PO TID 3 Days #9 tab 01/17/21 01/23/21 Rx 5-325] Allergies Allergy/AdvReac Type Severity Reaction Status Date / Time gabapentin Allergy Anaphylaxis Verified 08/07/20 17:36 shellfish derived [Crab] Allergy Rash/Hives Verified 08/07/20 17:36 Physical Exam Vitals: Vital Signs Temp Pulse Pulse Resp BP BP Pulse Ox 08/08/20 08:00 98 F 85 18 121/81 98 08/08/20 02:00 98.0 F 77 18 150/78 99 08/07/20 22:01 99.0 F 77 18 130/66 100 08/07/20 21:15 77 18 08/07/20 19:06 99.0 F 77 18 130/66 100 08/07/20 18:52 80 18 156/66 100 08/07/20 16:15 98.0 F 88 18 168/77 99 Intake and Output 08/07/20 08/08/20 08/08/20 22:59 06:59 14:59 Other: Voiding Method Toilet Toilet # Voids 1 2 2 Weight 76.657 kg Head normocephalic Neck supple Lungs clear to auscultation bilaterally no wheezing or crackles Heart regular rate and rhythm S1-S2, no rub or gallop Abdomen is soft nontender nondistended positive bowel sounds no h epatosplenomegaly Extremities no edema Neuro alert and orientated to 3 Results CBC & Chem 7: 08/08/20 05:04 08/08/20 05:04 Labs: Abnormal Lab Results - Last 24 Hours (Table) 08/07/20 08/07/20 08/07/20 Range/Units 16:48 16:48 16:48 MCHC (31.0-37.0) g/dL Lymphocytes # 0.9 L (1.0-4.8) k/uL Sodium 136 L (137-145) mmol/L Carbon Dioxide (21.6-31.8) mmol/L Glucose 464 H (74-99) mg/dL POC Glucose (mg/dL) (75-99) mg/dL Plasma Lactic Acid Cordell 2.4 H* (0.7-2.0) mmol/L Calcium (8.7-10.3) mg/dL Alkaline Phosphatase 146 H (38-126) U/L Urine Protein (Negative) Urine Glucose (UA) (Negative) 08/07/20 08/07/20 08/08/20 Range/Units 17:07 19:15 05:04 MCHC 30.8 L (31.0-37.0) g/dL Lymphocytes # (1.0-4.8) k/uL Sodium (137-145) mmol/L Carbon Dioxide (21.6-31.8) mmol/L Glucose (74-99) mg/dL POC Glucose (mg/dL) 353 H (75-99) mg/dL Plasma Lactic Acid Cordell (0.7-2.0) mmol/L Calcium (8.7-10.3) mg/dL Alkaline Phosphatase (38-126) U/L Urine Protein 2+ H (Negative) Urine Glucose (UA) 4+ H (Negative) 08/08/20 08/08/20 Range/Units 05:04 08:09 MCHC (31.0-37.0) g/dL Lymphocytes # (1.0-4.8) k/uL Sodium (137-145) mmol/L Carbon Dioxide 19.5 L (21.6-31.8) mmol/L Glucose 200 H (74-99) mg/dL POC Glucose (mg/dL) 224 H (75-99) mg/dL Plasma Lactic Acid Cordell (0.7-2.0) mmol/L Calcium 8.5 L (8.7-10.3) mg/dL Alkaline Phosphatase 144 H (38-126) U/L Urine Protein (Negative) Urine Glucose (UA) (Negative) Thrombosis Risk Factor Assmnt - Choose All That Apply Each Factor Represents 1 point: Age 41-60 years, Obesity (BMI >25) Other Risk Factors: No Other congenital or acquired thrombophilia - If yes, enter type in comment: No Thrombosis Risk Factor Assessment Total Risk Factor Score: 2 Thrombosis Risk Factor Assessment Level: Low Risk Assessment and Plan Assessment: 1. Rectal bleeding. CT of abdomen and pelvis showing no acute abnormality of the abdomen and pelvis. Patient recently underwent EGD showing no active bleeding with mild gastritis. Hemoglobin remained stable. GI services are following. Plans for colonoscopy tomorrow. 2. Underlying history of coronary artery disease with recent angioplasty and stent placement in June 2020. Patient has been maintained on Brilinta and aspirin 3. Essential hypertension 4. History of diabetes mellitus type 2 with hyperglycemia. Home insulin regimen resume sliding scale added. A1c ordered 5. Hyperlipidemia. Maintained on statin 6. Nicotine dependence. Nicotine patch has been ordered. Patient educated greater than 3 minutes on smoking cessation 7. Bipolar disorder 8. History of seizure disorder. Maintained on Keppra 9. Hypothyroidism. Maintained on Synthroid DVT prophylaxis SCDs. GI prophylaxis Protonix GI services following Plans for colonoscopy on 08/09/2020 Time with Patient: Greater than 30
--- NOTE | 2020-08-08 13:20 | CONS ---
CONSULTATION DATE OF SERVICE: August 08, 2020. REASON FOR CONSULTATION: Rectal bleeding. HISTORY OF PRESENT ILLNESS: The patient is a 55-year-old pleasant white female admitted to hospital with rectal bleeding for the last 2 days duration associated with lower abdominal pain. The patient was recently discharged from the hospital about a week ago at which time she was admitted with acute GI bleed. She underwent an upper endoscopy by Dr. Brewer and was noted to have some gastritis. For the last two days, she is having some lower abdominal discomfort and bright red blood per rectum on wiping. She had about 6 episodes yesterday. She started having bilateral lower abdominal pain and has some nausea but no emesis. Her last colonoscopy she recalls was several years ago. She has been on Brilinta and aspirin since her bypass surgery a few years ago. PAST MEDICAL HISTORY: Significant for coronary artery disease, status post angioplasty with stent placement, history of CABG, diabetes mellitus, hypertension, hyperlipidemia. PAST SURGICAL HISTORY: Bladder surgery, CABG, cardiac catheterization with stent placement, mitral valve repair in 2017. MEDICATIONS: Medications at home include Abilify, Lipitor, calcium, Imdur, NovoLog, folic acid, iron sulfate, Flexeril, Synthroid, Remeron, Seroquel, Ranexa, Zoloft, Vistaril, Keppra, Imodium, Brilinta and aspirin. ALLERGIES: GABAPENTIN. SOCIAL HISTORY: Chronic smoker no alcohol use. FAMILY HISTORY: Father had coronary artery disease. REVIEW OF SYSTEMS: CARDIOPULMONARY: No chest pain, no shortness of breath. : No dysuria or hematuria. MUSCULOSKELETAL unremarkable. SKIN unremarkable. ENDOCRINE unremarkable. PSYCHIATRIC unremarkable. NEUROLOGY: Unremarkable. ENT/VISION: Unremarkable. CONSTITUTIONAL: No recent weight loss. No fever, chills, night sweats. PHYSICAL EXAMINATION: She appears comfortable. No apparent distress. Vital signs stable. Blood pressure is 112/86. Pulse rate 85. Temperature 98. HEENT examination unremarkable. Conjunctivae pink. Sclerae anicteric. Oral cavity no lesions. NECK: No JVD. No lymph node enlargement. CHEST was clear to auscultation. HEART: Regular rate and rhythm. ABDOMEN: Soft. Bowel sounds are positive. No organomegaly. There was mild tenderness in the left lower quadrant area. EXTREMITIES: No pedal edema. SKIN no rashes. NEUROLOGIC: Alert and oriented x3. No focal deficits. LABS: WBC 6.7, hemoglobin 12.6, platelets normal. Basic metabolic panel is within normal limits. BUN and creatinine normal. Stool occult blood was negative. IMPRESSION: 1. Rectal bleeding for the last 2 days duration, patient having several episodes of bright red blood per rectum and had about 6 episodes yesterday, mostly bright red blood on the toilet tissue paper, associated with some stringy blood in the stool. Hemoglobin stable at 12.6 g/dL. The patient states that she did not have a colonoscopy for several years. Per her prior records, there was questionable colonoscopy a few months ago at [facility]. No records available at this time. 2. Recent upper endoscopy by Dr. Brewer last week for the same issue revealed mild gastritis. 3. History of coronary artery disease status post coronary artery bypass grafting in 2013 on aspirin and Brilinta, currently on hold for 2 days. 4. History of diabetes mellitus and hypertension. RECOMMENDATIONS: 1. Continue to hold aspirin and Brilinta. 2. Start on clear liquid diet. 3. Proceed with colonoscopy tomorrow. I discussed with the patient risks, benefits and complications. She is agreeable to it. 4. Monitor CBC daily. Thank you for this consultation. MMODL / IJN: [id number] /
[2020-08-08] MEDS: HYDROcodone/APAP 5-325MG 1 EACH TAB PO PRN (14:04)
[2020-08-08] MEDS ORDERED: PEG 3350-NA SULF,BICARB,CL/KCL 4,000 ML BOTTLE PO ONE (17:00)
[2020-08-08 17:16] LABS: Glucose,Whole Blood 184 mg/dL (75-99)
[2020-08-08 17:18] LABS: Hemoglobin A1C 9.6 % (4.0-6.0)
[2020-08-08 20:57] LABS: Glucose,Whole Blood 109 mg/dL (75-99)
[2020-08-08] MEDS: ARIPiprazole 5 MG TAB PO SCH (21:16)
[2020-08-08] MEDS: MIRTAZAPINE 45 MG TABLET PO SCH (21:18)
[2020-08-08] MEDS: QUEtiapine 50 MG TAB PO SCH (21:18)
[2020-08-09] MEDS ORDERED: DEXTROSE 50% SYRINGE 50 ML IVP ONE (00:08)
[2020-08-09 00:23] LABS: Glucose,Whole Blood 338 mg/dL (75-99)
[2020-08-09 00:23] LABS: Glucose,Whole Blood 57 mg/dL (75-99)
[2020-08-09 00:30] LABS: Glucose,Whole Blood 179 mg/dL (75-99)
[2020-08-09 00:59] LABS: Glucose,Whole Blood 149 mg/dL (75-99)
[2020-08-09 02:38] LABS: Glucose,Whole Blood 100 mg/dL (75-99)
--- NOTE | 2020-08-09 02:46 | P.EN ---
A team called on this patient due to altered mental status and unresponsiveness. patient had been seen normal around time for her bedtime medications, and received seroquel , morphine and her other regular meds. then about 2 hours later she became less responsive she is admitted for suspected GI bleeding, has been NPO, and doing bowel prep for colonoscopy. patient found to be diaphoretic, unresponsive, thready pulse, but with BP within normal limits, and oxygen saturation mid 90s, patient moans to painful stimulation blood sugar check showed, glucose in the 50s, she was given 1 amp of D50%, and given a dose of narcan patient started opening eyes to verbal stimulation but still appears lethargic initially, then within few minutes became more responsive and yelled at everyone asking to be left alone to rest asking to be transferred to her bed as she was on the chair. vital signs again stable acute metabolic encephalopathy secondary to hypoglycemia plan continue to monitor vital sings and mental status along with blood sugar within 2-3 hours improved , current blood sugar after a dose of d 50%, is in the 300 mg/dl range encourage to drink the bowel prep solution for planned colonoscopy in AM 500 cc bolus normal saline 35 minutes were spent in critical care time for this encounter.
[2020-08-09] MEDS: DEXTROSE 5%-0.45% NACL 1,000 ML IV SCH ×2 (03:22→22:52)
[2020-08-09 04:06] LABS: Glucose,Whole Blood 88 mg/dL (75-99)
[2020-08-09 04:59] LABS: Basophils % (A) 0 %; Eosinophils # (A) 0.1 k/uL (0-0.7); Eosinophils % (A) 2 %; HCT 37.5 % (34.0-46.0); HGB 11.9 gm/dL (11.4-16.0); Lymphocytes # (A) 0.9 k/uL (1.0-4.8); Lymphocytes % (A) 15 %; MCH 29.9 pg (25.0-35.0); MCHC 31.9 g/dL (31.0-37.0); MCV 93.8 fL (80.0-100.0); Monocytes # (A) 0.4 k/uL (0-1.0); Monocytes % (A) 6 %; Neutrophils # (A) 4.5 k/uL (1.3-7.7); Neutrophils % (A) 75 %; Platelet Count 136 k/uL (150-450); RBC 3.99 m/uL (3.80-5.40); RDW 14.1 % (11.5-15.5); WBC 5.9 k/uL (3.8-10.6)
[2020-08-09 05:19] LABS: Glucose,Whole Blood 96 mg/dL (75-99)
[2020-08-09] MEDS: LEVOTHYROXINE 100 MCG TAB PO SCH (06:08)
[2020-08-09] MEDS: LEVOTHYROXINE 75 MCG TAB PO SCH (06:08)
[2020-08-09 07:09] LABS: Glucose,Whole Blood 80 mg/dL (75-99)
[2020-08-09] MEDS: INSULIN ASPART (NovoLOG) 100 UNIT/ML VIAL SQ SCH ×4 (07:44→22:12)
[2020-08-09] MEDS ORDERED: MAGNESIUM CITRATE 296 ML BOTTLE PO ONE (07:59)
[2020-08-09] MEDS: levETIRAcetam 500 MG TAB PO SCH ×2 (08:21→21:46)
[2020-08-09] MEDS: METOPROLOL TARTRATE 25 MG TAB PO SCH ×2 (08:21→21:46)
[2020-08-09] MEDS: ISOSORBIDE MONONITRATE ER 30 MG TAB.ER.24H PO SCH (08:21)
[2020-08-09 09:30] LABS: African American GFR (CKD) 113.8 (60.0-200.0); Albumin 3.7 g/dL (3.80-4.90); Albumin/Globulin Ratio 2.18 (1.60-3.17); Anion Gap 14.5 mmol/L (4.00-12.00); BUN/Creat Ratio 18.57 Ratio (12.00-20.00); Calcium 7.8 mg/dL (8.7-10.3); Carbon Dioxide 15.5 mmol/L (21.6-31.8); Globulin 1.7 g/dL (1.6-3.3); Non-African American GFR(CKD) 98.2 (60.0-200.0); Potassium 3.8 mmol/L (3.5-5.5); Total Bilirubin 0.3 mg/dL (0.3-1.2); Total Protein 5.4 g/dL (6.2-8.2)
[2020-08-09] MEDS: RANOLAZINE 500 MG TAB.ER.12H PO SCH ×2 (09:57→21:49)
[2020-08-09] MEDS: SERTRALINE 50 MG TAB PO SCH (09:57)
[2020-08-09] MEDS: CYCLOBENZAPRINE 10 MG TAB PO SCH ×3 (09:57→21:46)
[2020-08-09] MEDS: hydrOXYzine pamoate 25 MG CAP PO SCH ×3 (09:57→21:47)
[2020-08-09] MEDS: FERROUS SULFATE 325 MG TAB PO SCH ×2 (09:57→21:46)
[2020-08-09] MEDS: SODIUM BICARBONATE TAB 650 MG TAB PO SCH ×2 (09:57→22:12)
[2020-08-09] MEDS: CALCIUM CARBONATE 500 MG CHEWABLE PO SCH (09:57)
[2020-08-09] MEDS: HYDROcodone/APAP 5-325MG 1 EACH TAB PO PRN (09:58)
[2020-08-09] MEDS: ATORVASTATIN 80 MG TAB PO SCH (09:59)
[2020-08-09] MEDS: NICOTINE 14MG/24HR PATCH TRANSDERM SCH (10:03)
[2020-08-09] MEDS: FOLIC ACID 1 MG TAB PO SCH (10:03)
[2020-08-09 11:55] LABS: Glucose,Whole Blood 184 mg/dL (75-99)
[2020-08-09 12:49] VITALS: BMI 29.0
[2020-08-09] MEDS ORDERED: IV FLUID CONTINUATION 1,000 ML IV ONE (14:02)
[2020-08-09] MEDS ORDERED: PROPOFOL 10 MG/ML 20 ML VIAL IV ONE (14:02)
[2020-08-09] MEDS ORDERED: SODIUM CHLORIDE 0.9% 500 ML 500 ML IV ONE (14:02)
--- NOTE | 2020-08-09 14:49 | P.PCN ---
Date of Procedure: 08/09/20 Description of Procedure: BRIEF HISTORY: 55-year-old female with multiple medical comorbidities presenting to the hospital for complaints of bright red blood per rectum. Previously the patient had previous complaint earlier in the month at which time hemoglobin was normal. She had similar complaints 6 months ago and underwent EGD and colonoscopy in the summer at [facility] was significant findings of gastritis, polypectomy and diverticulosis. On her last admission she underwent EGD significant only for gastritis with no bleeding noted. She presented back to the hospital with complaints of bright red blood per rectum again. PROCEDURE PERFORMED: Colonoscopy. PREOPERATIVE DIAGNOSIS: Hematochezia, blood per rectum. ESTIMATED BLOOD LOSS: Minimal. IV sedation per Anesthesia. PROCEDURE: After informed consent was obtained, the patient, was brought into the endoscopy unit. IV sedation was administered by Anesthesia under continuous monitoring. Digital rectal examination was normal. Initially the Olympus CF-190 flexible video colonoscope was then inserted in the rectum, gradually advanced into the cecum without any difficulty. Careful examination was performed as the scope was gradually being withdrawn. Ileocecal valve and the appendiceal orifice were visualized and appeared normal. Prep was fair with a large amount of liquid stool with some solid components found throughout the colon. Mucosa of the cecum, ascending colon, transverse colon, descending colon, sigmoid colon, and rectum appeared which was able to be visualized and appeared normal, however complete visualization of the mucosa was not achieved due to the patient's prep. There was no active bleeding noted. A few scattered diverticula noted in the sigmoid colon. Retroflexion was performed in the rectum and no lesions were seen, low-grade internal hemorrhoids. The patient tolerated the procedure well. IMPRESSION: No active bleeding, fresh blood or old blood noted throughout the entire visualized colon and small bowel. Fair prep. Mild sigmoid diverticulosis. Internal hemorrhoids. RECOMMENDATIONS: Findings of this examination were discussed with the patient. Okay to resume diet. Okay to resume medications. No further endoscopy recommended, and given the fact that the patient has had normal hemoglobin and EGD and colonoscopy on 2 separate occasions within the past year there is no plan for further EGD and colonoscopy at this time, and if the patient has further bleeding would recommend local hemorrhoidal care with stool softeners, topical steroid therapy and warm baths. Can consider a surgical evaluation in the outpatient setting for possible hemorrhoidectomy if bleeding continues. Okay to resume any anticoagulation or antiplatelet therapy at this time.
[2020-08-09 17:06] LABS: Glucose,Whole Blood 122 mg/dL (75-99)
--- NOTE | 2020-08-09 17:50 | P.PN ---
Subjective Progress Note Date: 08/09/20 This is a 55-year-old female patient who presented to the ER with complaints of rectal bleeding. Patient recently admitted for same issue and underwent EGD showing no active bleeding with mild gastritis. Patient is maintained on Brilinta for angioplasty with stent in June 2020. Patient reports that rectal bleeding started yesterday. Patient also complains of lower abdomen discomfort and cramping. Reports that she vomited once yesterday but denies any nausea or vomiting at this time denies any coffee-ground emesis. Patient has been maintained on her Brilinta and aspirin. Patient does have a past medical history of coronary artery disease, diabetes mellitus, essential hypertension, hyperlipidemia and nicotine dependence. hemoGlobin currently stable at 12.4. GI services have been consulted and plans for colonoscopy tomorrow. At this time patient plans mild abdomen discomfort. Patient denies any nausea or vomiting. Patient denies any urinary burning or frequency On 08/09/2020 patient was seen and examined on the medical floor she is alert and oriented 3 in no apparent distress there is no fever or chills no headache or dizziness no chest pain no shortness of breath no cough no nausea or vomiting no abdominal pain no diarrhea no new episodes of bleeding and no urinary sy mptoms patient is scheduled for colonoscopy today by Dr. Canales Objective - Vital Signs Vital signs: Vital Signs Temp 98.1 F 08/09/20 07:43 Pulse 63 08/09/20 07:43 Resp 17 08/09/20 07:43 BP 128/69 08/09/20 07:43 Pulse Ox 100 08/09/20 07:43 Intake & Output 08/08/20 08/09/20 08/09/20 18:59 06:59 18:59 Intake Total 600 Balance 600 Intake: Oral 600 Other: Voiding Method Toilet Toilet # Voids 2 1 1 # Bowel Movements 2 - Exam Head normocephalic Neck supple Lungs clear to auscultation bilaterally no wheezing or crackles Heart regular rate and rhythm S1-S2, no rub or gallop Abdomen is soft nontender nondistended positive bowel sounds no hepatosplenomegaly Extremities no edema Neuro alert and orientated to 3 - Labs CBC & Chem 7: 08/09/20 04:35 08/09/20 04:31 Labs: Abnormal Lab Results - Last 24 Hours (Table) 08/08/20 08/08/2021 Range/Units 05:04 05:04 11:37 Plt Count (150-450) k/uL Lymphocytes # (1.0-4.8) k/uL Carbon Dioxide 19.5 L (21.6-31.8) mmol/L Glucose 200 H (70-110) mg/dL POC Glucose (mg/dL) 125 H (75-99) mg/dL Hemoglobin A1c 9.6 H (4.0-6.0) % Calcium 8.5 L (8.7-10.3) mg/dL Alkaline Phosphatase 144 H (41-126) U/L 08/08/20 08/08/20 08/09/20 Range/Units 17:14 20:55 00:07 Plt Count (150-450) k/uL Lymphocytes # (1.0-4.8) k/uL Carbon Dioxide (21.6-31.8) mmol/L Glucose (70-110) mg/dL POC Glucose (mg/dL) 184 H 109 H 57 L (75-99) mg/dL Hemoglobin A1c (4.0-6.0) % Calcium (8.7-10.3) mg/dL Alkaline Phosphatase (41-126) U/L 08/09/20 08/09/20 08/09/20 Range/Units 00:12 00:29 00:58 Plt Count (150-450) k/uL Lymphocytes # (1.0-4.8) k/uL Carbon Dioxide (21.6-31.8) mmol/L Glucose (70-110) mg/dL POC Glucose (mg/dL) 338 H 179 H 149 H (75-99) mg/dL Hemoglobin A1c (4.0-6.0) % Calcium (8.7-10.3) mg/dL Alkaline Phosphatase (41-126) U/L 08/09/20 08/09/20 Range/Units 02:29 04:35 Plt Count 136 L (150-450) k/uL Lymphocytes # 0.9 L (1.0-4.8) k/uL Carbon Dioxide (21.6-31.8) mmol/L Glucose (70-110) mg/dL POC Glucose (mg/dL) 100 H (75-99) mg/dL Hemoglobin A1c (4.0-6.0) % Calcium (8.7-10.3) mg/dL Alkaline Phosphatase (41-126) U/L Assessment and Plan Assessment: 1. Rectal bleeding. CT of abdomen and pelvis showing no acute abnormality of the abdomen and pelvis. Patient recently underwent EGD showing no active bleeding with mild gastritis. Hemoglobin remained stable. GI services are following. Plans for colonoscopy tomorrow. 2. Underlying history of coronary artery disease with recent angioplasty and stent placement in June 2020. Patient has been maintained on Brilinta and aspirin 3. Essential hypertension 4. History of diabetes mellitus type 2 with hyperglycemia. Home insulin regimen resume sliding scale added. A1c ordered 5. Hyperlipidemia. Maintained on statin 6. Nicotine dependence. Nicotine patch has been ordered. Patient educated greater than 3 minutes on smoking cessation 7. Bipolar disorder 8. History of seizure disorder. Maintained on Keppra 9. Hypothyroidism. Maintained on Synthroid DVT prophylaxis SCDs. GI prophylaxis Protonix GI services following Plans for colonoscopy on 08/09/2020 Plan: 1. Rectal bleeding. CT of abdomen and pelvis showing no acute abnormality of the abdomen and pelvis. Patient recently underwent EGD showing no active bleeding with mild gastritis. Hemoglobin remained stable. GI services are following. Plans for colonoscopy tomorrow. 2. Underlying history of coronary artery disease with recent angioplasty and stent placement in June 2020. Patient has been maintained on Brilinta and aspirin 3. Essential hypertension 4. History of diabetes mellitus type 2 with hyperglycemia. Home insulin regimen resume sliding scale added. A1c ordered 5. Hyperlipidemia. Maintained on statin 6. Nicotine dependence. Nicotine patch has been ordered. Patient educated greater than 3 minutes on smoking cessation 7. Bipolar disorder 8. History of seizure disorder. Maintained on Keppra 9. Hypothyroidism. Maintained on Synthroid DVT prophylaxis SCDs. GI prophylaxis Protonix GI services following Plans for colonoscopy today Will follow closely
[2020-08-09 21:23] LABS: Glucose,Whole Blood 209 mg/dL (75-99)
[2020-08-09] MEDS: QUEtiapine 50 MG TAB PO SCH (21:46)
[2020-08-09] MEDS: MIRTAZAPINE 45 MG TABLET PO SCH (21:48)
[2020-08-09] MEDS: ARIPiprazole 5 MG TAB PO SCH (21:48)
[2020-08-09] MEDS: MORPHINE SULFATE 4 MG/ML SYRINGE IV PRN (21:49)
[2020-08-09] MEDS: INSULIN DETEMIR (LEVEMIR) 100 UNIT/ML SYR SQ SCH (21:49)
[2020-08-10] MEDS: LEVOTHYROXINE 100 MCG TAB PO SCH ×2 (05:01→05:02)
[2020-08-10] MEDS: LEVOTHYROXINE 75 MCG TAB PO SCH (05:02)
[2020-08-10] MEDS: HYDROcodone/APAP 5-325MG 1 EACH TAB PO PRN (05:30)
[2020-08-10 07:10] LABS: Glucose,Whole Blood 111 mg/dL (75-99)
[2020-08-10 08:08] VITALS: BP 117/77; PULSE 60; RESP 16; TEMP 97.9
[2020-08-10] MEDS: INSULIN ASPART (NovoLOG) 100 UNIT/ML VIAL SQ SCH (08:08)
[2020-08-10] MEDS: hydrOXYzine pamoate 25 MG CAP PO SCH (08:54)
[2020-08-10] MEDS: SODIUM BICARBONATE TAB 650 MG TAB PO SCH (08:55)
[2020-08-10] MEDS: FOLIC ACID 1 MG TAB PO SCH (08:55)
[2020-08-10] MEDS: ATORVASTATIN 80 MG TAB PO SCH (08:55)
[2020-08-10] MEDS: FERROUS SULFATE 325 MG TAB PO SCH (08:55)
[2020-08-10] MEDS: ISOSORBIDE MONONITRATE ER 30 MG TAB.ER.24H PO SCH (08:55)
[2020-08-10] MEDS: CALCIUM CARBONATE 500 MG CHEWABLE PO SCH (08:55)
[2020-08-10] MEDS: INSULIN DETEMIR (LEVEMIR) 100 UNIT/ML SYR SQ SCH (08:55)
[2020-08-10] MEDS: METOPROLOL TARTRATE 25 MG TAB PO SCH (08:55)
[2020-08-10] MEDS: SERTRALINE 50 MG TAB PO SCH (08:55)
[2020-08-10] MEDS: CYCLOBENZAPRINE 10 MG TAB PO SCH (08:56)
[2020-08-10] MEDS: RANOLAZINE 500 MG TAB.ER.12H PO SCH (08:57)
[2020-08-10] MEDS: NICOTINE 14MG/24HR PATCH TRANSDERM SCH (08:57)
[2020-08-10] MEDS: levETIRAcetam 500 MG TAB PO SCH (09:02)
[2020-08-10] MEDS ORDERED: HYDROCORTISONE SUPPOSITORY 25 MG SUPP RECTAL SCH (09:15)
--- NOTE | 2020-08-10 11:15 | P.DS ---
Providers Date of admission: 08/07/20 18:44 Expected date of discharge: 08/10/20 Attending physician: Jerson Aguilar Consults: 08/07/20 18:45 Consult Physician Urgent Consulting Provider: Michelle Fuentes Consult Reason/Comments: GI bleeding Do you want consulting provider notified?: Yes Primary care physician: Jerson [facility] Course: Diagnosis on discharge: This is a 55-year-old female patient who presented to the ER with complaints of rectal bleeding. Patient recently admitted for same issue and underwent EGD showing no active bleeding with mild gastritis. Patient is maintained on Brilinta for angioplasty with stent in June 2020. Patient reports that rectal bleeding started yesterday. Patient also complains of lower abdomen disc omfort and cramping. Reports that she vomited once yesterday but denies any nausea or vomiting at this time denies any coffee-ground emesis. Patient has been maintained on her Brilinta and aspirin. Patient does have a past medical history of coronary artery disease, diabetes mellitus, essential hypertension, hyperlipidemia and nicotine dependence. hemoGlobin currently stable at 12.4. GI services have been consulted and plans for colonoscopy tomorrow. At this time patient plans mild abdomen discomfort. Patient denies any nausea or vomiting. Patient denies any urinary burning or frequency On 08/09/2020 patient was seen and examined on the medical floor she is alert and oriented 3 in no apparent distress there is no fever or chills no headache or dizziness no chest pain no shortness of breath no cough no nausea or vomiting no abdominal pain no diarrhea no new episodes of bleeding and no urinary symptoms patient is scheduled for colonoscopy today by Dr. Canales On 08/10/2020 patient was seen and examined on the medical floor she is alert and oriented 3 in no distress there is no fever or chills no headache or dizziness no chest pain no shortness of breath no cough no nausea or vomiting no abdominal pain no diarrhea no blood in the stools no burning with urination no frequency or urgency and no hematuria Hospital course: 1. Rectal bleeding. CT of abdomen and pelvis showing no acute abnormality of the abdomen and pelvis. Patient recently underwent EGD showing no active bleeding with mild gastritis. Hemoglobin remained stable. GI services are following. Plans for colonoscopy tomorrow. 2. Underlying history of coronary artery disease with recent angioplasty and stent placement in June 2020. Patient has been maintained on Brilinta and aspirin 3. Essential hypertension 4. History of diabetes mellitus type 2 with hyperglycemia. Home insulin regimen resume sliding scale added. A1c ordered 5. Hyperlipidemia. Maintained on statin 6. Nicotine dependence. Nicotine patch has been ordered. Patient educated greater than 3 minutes on smoking cessation 7. Bipolar disorder 8. History of seizure disorder. Maintained on Keppra 9. Hypothyroidism. Maintained on Synthroid DVT prophylaxis SCDs. GI prophylaxis Protonix Colonoscopy done on 08/09/2020 did not reveal any significant abnormality patient was discharged home on 08/10/2020 she will be followed as outpatient for further evaluation and treatment in our office within 1 week Most likely cause of rectal bleeding is hemorrhoids patient was given a prescription for hydrocortisone suppository 25 mg twice daily Patient was counseled in length during this admission in regard to smoking cessation counseling more than 5 minutes, during this admission she was given a nicotine patch 14 g, she was also given October the prescription for the same at the time of discharge Patient Condition at Discharge: Stable Plan - Discharge Summary Discharge Rx Participant: No New Discharge Prescriptions: New Hydrocortisone Suppository [Anusol-Hc] 25 mg RECTAL DAILY supp Nicotine 14Mg/24Hr Patch [Habitrol] 1 patch TRANSDERM DAILY patch Continue Folic Acid 1 mg PO DAILY Sertraline [Zoloft] 50 mg PO DAILY Ferrous Sulfate [Iron (65 MG Elemental)] 325 mg PO BID Calcium Carbonate [Calcium] 600 mg PO DAILY Ranolazine [Ranexa] 1,000 mg PO BID QUEtiapine [SEROquel] 50 mg PO HS Mirtazapine [Remeron] 45 mg PO HS INSULIN ASPART (NovoLOG) [NovoLOG (formulary)] See Protocol SQ ACHS Metoprolol Tartrate [Lopressor] 25 mg PO BID Levothyroxine Sodium [Synthroid] 175 mcg PO DAILY levETIRAcetam [Keppra] 500 mg PO BID hydrOXYzine pamoate [Vistaril] 25 mg PO TID Isosorbide Mononitrate ER [Imdur] 30 mg PO DAILY Cyclobenzaprine [Flexeril] 10 mg PO TID Atorvastatin [Lipitor] 80 mg PO DAILY ARIPiprazole [Abilify] 5 mg PO HS Loperamide [Imodium] 2 mg PO QID PRN PRN Reason: Diarrhea Ticagrelor [Brilinta] 90 mg PO BID tab Nitroglycerin Sl Tabs [Nitrostat] 0.4 mg SUBLINGUAL Q5M PRN 90 Days #100 tab PRN Reason: Chest Pain Pantoprazole [Protonix] 40 mg PO AC-BRKFST 30 Days #30 tablet. Sodium Bicarbonate Tab 650 mg PO BID 30 Days #60 tab Insulin Glargine,Hum.rec.anlog [Lantus Solostar] 30 unit SQ BID #0 Lidocaine 5% Patch [Lidoderm 5% Patch] 2 patch TOPICAL DAILY@1300 PRN PRN Reason: lower back pain HYDROcodone/APAP 5-325MG [[place] 5-325] 1 tab PO TID 3 Days #9 tab Discharge Medication List ARIPiprazole [Abilify] 5 mg PO HS 05/21/20 [History] Atorvastatin [Lipitor] 80 mg PO DAILY 05/21/20 [History] Calcium Carbonate [Calcium] 600 mg PO DAILY 05/21/20 [History] Cyclobenzaprine [Flexeril] 10 mg PO TID 05/21/20 [History] Ferrous Sulfate [Iron (65 MG Elemental)] 325 mg PO BID 05/21/20 [History] Folic Acid 1 mg PO DAILY 05/21/20 [History] INSULIN ASPART (NovoLOG) [NovoLOG (formulary)] See Protocol SQ ACHS 05/21/20 [History] Isosorbide Mononitrate ER [Imdur] 30 mg PO DAILY 05/21/20 [History] Levothyroxine Sodium [Synthroid] 175 mcg PO DAILY 05/21/20 [History] Metoprolol Tartrate [Lopressor] 25 mg PO BID 05/21/20 [History] Mirtazapine [Remeron] 45 mg PO HS 05/21/20 [History] QUEtiapine [SEROquel] 50 mg PO HS 05/21/20 [History] Ranolazine [Ranexa] 1,000 mg PO BID 05/21/20 [History] Sertraline [Zoloft] 50 mg PO DAILY 05/21/20 [History] hydrOXYzine pamoate [Vistaril] 25 mg PO TID 05/21/20 [History] levETIRAcetam [Keppra] 500 mg PO BID 05/21/20 [History] Loperamide [Imodium] 2 mg PO QID PRN 06/08/20 [History] Nitroglycerin Sl Tabs [Nitrostat] 0.4 mg SUBLINGUAL Q5M PRN 90 Days #100 tab 06/27/20 [Rx] Ticagrelor [Brilinta] 90 mg PO BID tab 06/27/20 [Rx] Insulin Glargine,Hum.rec.anlog [Lantus Solostar] 30 unit SQ BID #0 07/14/20 [Rx] Pantoprazole [Protonix] 40 mg PO AC-BRKFST 30 Days #30 tablet.dr 07/14/20 [Rx] Sodium Bicarbonate Tab 650 mg PO BID 30 Days #60 tab 07/14/20 [Rx] Lidocaine 5% Patch [Lidoderm 5% Patch] 2 patch TOPICAL DAILY@1300 PRN 07/20/20 [History] HYDROcodone/APAP 5-325MG [[place] 5-325] 1 tab PO TID 3 Days #9 tab 08/01/20 [Rx] Hydrocortisone Suppository [Anusol-Hc] 25 mg RECTAL DAILY supp 08/10/20 [Rx] Nicotine 14Mg/24Hr Patch [Habitrol] 1 patch TRANSDERM DAILY patch 08/10/20 [Rx] Follow up Appointment(s)/Referral(s): Michelle Fuentes MD [STAFF PHYSICIAN] - 08/18/20 10:30 am (Appt with JOSIANE Rosen) Jerson Aguilar MD [Primary Care Provider] - 08/17/20 11:00 am Patient Instructions/Handouts: Hemorrhoids (DC), Rectal Bleeding (DC), Diverticulosis (DC), Diverticulitis Diet (DC)
--- NOTE | 2020-08-10 12:46 | P.PN ---
Subjective Progress Note Date: 08/10/20 Principal diagnosis: Rectal bleeding The patient was seen and examined lying in bed. She is status post colonoscopy yesterday with findings that included mild sigmoid diverticulosis and internal hemorrhoids. Patient denies any further rectal bleeding. She states she does have some continued mild lower abdominal discomfort worse with palpation. She denies any nausea or vomiting. She is tolerating her diet. Objective - Vital Signs Vital signs: Vital Signs Temp 97.9 F 08/10/20 08:00 Pulse 60 08/10/20 08:00 Resp 16 08/10/20 08:00 BP 117/77 08/10/20 08:00 Pulse Ox 98 08/10/20 08:00 Intake & Output 08/09/20 08/10/20 08/10/20 18:59 06:59 18:59 Intake Total 550 Balance 550 Weight 76.657 kg Intake: IV 250 Oral 300 Other: Voiding Method Toilet Toilet # Voids 1 1 - Exam General appearance: The patient is alert, oriented, appears in no acute distress. Obese. HET: Head is normocephalic and atraumatic. Conjunctiva pink. Sclera and icteric. Neck: Supple without lymphadenopathy. Abdomen: Soft, obese, mild diffuse lower tenderness, nondistended with bowel sounds. No guarding or rigidity. Extremities: Normal skin color and turgor. No pedal edema Neurological: No focal deficits. Alert and oriented 3. - Labs CBC & Chem 7: 08/09/20 04:35 08/09/20 04:31 Labs: Abnormal Lab Results - Last 24 Hours (Table) 08/09/20 08/09/20 08/09/20 Range/Units 04:31 11:53 17:04 Chloride 111 H (96-109) mmol/L Carbon Dioxide 15.5 L (21.6-31.8) mmol/L Anion Gap 14.50 H (4.00-12.00) mmol/L POC Glucose (mg/dL) 184 H 122 H (75-99) mg/dL Calcium 7.8 L (8.7-10.3) mg/dL Total Protein 5.4 L (6.2-8.2) g/dL Albumin 3.70 L (3.80-4.90) g/dL 08/09/20 08/10/20 Range/Units 21:21 07:09 Chloride (96-109) mmol/L Carbon Dioxide (21.6-31.8) mmol/L Anion Gap (4.00-12.00) mmol/L POC Glucose (mg/dL) 209 H 111 H (75-99) mg/dL Calcium (8.7-10.3) mg/dL Total Protein (6.2-8.2) g/dL Albumin (3.80-4.90) g/dL Assessment and Plan (1) Rectal bleeding Narrative/Plan: Yuri who came in for rectal bleeding for 2 days duration with several episodes of bright red blood per rectum and had about 6 episodes prior to coming into the hospital which he stated were mostly bright red blood on the toilet tissue paper associated with some stringy blood in the stool. Initial hemoglobin was stable at 12.6. The patient states she had not had a colonoscopy for several years. Per her prior records there was questionable colonoscopy a few months ago at [facility]. No records available at this time. Patient underwent a recent upper endoscopy last week for the same issues revealed mild gastritis. Should has a history of coronary artery disease status post coronary artery bypass grafting in 2013 on aspirin and blunt currently on hold. She is status post colonoscopy yesterday which revealed mild sigmoid diverticulosis and internal hemorrhoids. Patient may resume anticoagulation at this time Status: Acute Code(s): K62.5 - HEMORRHAGE OF ANUS AND RECTUM SNOMED Code(s): 95974338 Plan: 1. Continue supportive care 2. Patient is status post EGD and colonoscopy, no further workup indicated 3. Recommend Anusol per rectum as needed for hemorrhoids 4. Colace daily 5. Discussed with patient and continues with rectal bleeding and hemorrhoids, can follow-up with a general surgeon Thank you for this consultation we will sign off at this time Dr. Brewer I agree with the dictator's note, documented as a scribe by Maria Alejandra Manzanares.
== END 2020-08-10 11:45 | disposition home or self-care (01) ==
LOC: EC 16:11 → 6NMEDSUR 18:44
PROVIDERS: ADMIT Internal Medicine; ATTEND Internal Medicine
DX: K57.31 Diverticulosis of large intestine without perforation or abscess with bleeding (principal); K64.8 Other hemorrhoids; K29.71 Gastritis, unspecified, with bleeding; E11.649 Type 2 diabetes mellitus with hypoglycemia without coma; G93.41 Metabolic encephalopathy; I25.119 Atherosclerotic heart disease of native coronary artery with unspecified angina pectoris; I10 Essential (primary) hypertension; E11.65 Type 2 diabetes mellitus with hyperglycemia; E78.5 Hyperlipidemia, unspecified; F17.200 Nicotine dependence, unspecified, uncomplicated; F31.9 Bipolar disorder, unspecified; G40.909 Epilepsy, unspecified, not intractable, without status epilepticus; E03.9 Hypothyroidism, unspecified; E66.9 Obesity, unspecified; K08.89 Other specified disorders of teeth and supporting structures; Z71.6 Tobacco abuse counseling; Z79.02 Long term (current) use of antithrombotics/antiplatelets; Z79.82 Long term (current) use of aspirin; Z98.890 Other specified postprocedural states; Z79.899 Other long term (current) drug therapy; Z79.4 Long term (current) use of insulin; Z79.890 Hormone replacement therapy; Z88.8 Allergy status to other drugs, medicaments and biological substances; Z91.013 Allergy to seafood; Z87.39 Personal history of other diseases of the musculoskeletal system and connective tissue; Z95.1 Presence of aortocoronary bypass graft; Z95.5 Presence of coronary angioplasty implant and graft; Z95.820 Peripheral vascular angioplasty status with implants and grafts; Z86.010 Personal history of colon polyps; Z68.29 Body mass index [BMI] 29.0-29.9, adult; Z82.49 Family history of ischemic heart disease and other diseases of the circulatory system
CPT/HCPCS: 96376 ×3; 96361 ×3; 96365; 96366; 96375 ×2; 99285; 36415; 86900; 86901; 80053 ×3; 83605; 83690; 85025 ×3; 85610; 85730; 86850; 82272; 81001; 83036; 74177; 45378; G0378 ×4; J2270 ×3; J2310; J2405; J2704; C9113; Q9967

== ENCOUNTER 2020-08-17 14:06 | Inpatient (IN) | payer MEDICARE, OTHER ==
[2020-08-17] MEDS ORDERED: SODIUM CHLORIDE 0.9% 1,000 ML IV STA (14:26)
[2020-08-17] MEDS ORDERED: ACETAMINOPHEN TAB 325 MG TAB PO STA (14:28)
--- NOTE | 2020-08-17 15:28 | ED ---
Chest Pain HPI - General Source: EMS, RN notes reviewed Mode of arrival: EMS Limitations: no limitations <Ace Vieyra - Last Filed: 08/17/20 19:02> <Camille Perrin - Last Filed: 08/17/20 20:28> - General Chief Complaint: Chest Pain Stated Complaint: chest pain Time Seen by Provider: 08/17/20 14:13 - History of Present Illness Initial Comments: Patient is a 55-year-old female presenting to emergency Department complaining of chest pain located centrally that wraps around her left rib cage to her back. Patient is a frequent flier to the emergency department with similar complaints. She stated that the pain started slightly last night, but was more prominent this morning so she decided to come in. She was in no apparent distress or pain. She noted that the pain was sharp and constant with no relief she took 6 nitros and 10 baby aspirins before arriving to the emergency department that did not help.He did report a history of several MIs in the past along with several stent placements and a quadruple bypass. She denied any shortness of breath, syncope, lightheadedness, dizziness, weakness, diaphoresis, nausea, vomiting, diarrhea, constipation, fever, chills, fatigue. (Ace Vieyra) - Related Data Home Medications Medication Instructions Recorded Confirmed ARIPiprazole [Abilify] 5 mg PO HS 05/21/20 08/17/20 Atorvastatin [Lipitor] 80 mg PO DAILY 05/21/20 08/17/20 Calcium Carbonate [Calcium] 600 mg PO DAILY 05/21/20 08/17/20 Cyclobenzaprine [Flexeril] 10 mg PO TID 05/21/20 08/17/20 Ferrous Sulfate [Iron (65 MG 325 mg PO BID 05/21/20 08/17/20 Elemental)] Folic Acid 1 mg PO DAILY 05/21/20 08/17/20 INSULIN ASPART (NovoLOG) [NovoLOG See Protocol SQ ACHS 05/21/20 08/17/20 (formulary)] Isosorbide Mononitrate ER [Imdur] 30 mg PO DAILY 05/21/20 08/17/20 Levothyroxine Sodium [Synthroid] 175 mcg PO DAILY 05/21/20 08/17/20 Metoprolol Tartrate [Lopressor] 25 mg PO BID 05/21/20 08/17/20 Mirtazapine [Remeron] 45 mg PO HS 05/21/20 08/17/20 QUEtiapine [SEROquel] 50 mg PO HS 05/21/20 08/17/20 Ranolazine [Ranexa] 1,000 mg PO BID 05/21/20 08/17/20 Sertraline [Zoloft] 50 mg PO DAILY 05/21/20 08/17/20 hydrOXYzine pamoate [Vistaril] 25 mg PO TID 05/21/20 08/17/20 levETIRAcetam [Keppra] 500 mg PO BID 05/21/20 08/17/20 Loperamide [Imodium] 2 mg PO QID PRN 06/08/20 08/17/20 Lidocaine 5% Patch [Lidoderm 5% 1 - 2 patch TOPICAL DAILY@1300 PRN 07/20/20 08/17/20 Patch] Previous Rx's Medication Instructions Recorded Nitroglycerin Sl Tabs [Nitrostat] 0.4 mg SUBLINGUAL Q5M PRN 90 Days 06/27/20 #100 tab Ticagrelor [Brilinta] 90 mg PO BID tab 06/27/20 Insulin Glargine,Hum.rec.anlog 30 unit SQ BID #0 07/14/20 [Lantus Solostar] Pantoprazole [Protonix] 40 mg PO AC-BRKFST 30 Days #30 07/14/20 tablet. Sodium Bicarbonate Tab 650 mg PO BID 30 Days #60 tab 07/14/20 HYDROcodone/APAP 5-325MG [[place] 1 tab PO TID 3 Days #9 tab 08/01/20 5-325] Allergies Allergy/AdvReac Type Severity Reaction Status Date / Time gabapentin Allergy Anaphylaxis Verified 08/17/20 16:19 shellfish derived [Crab] Allergy Rash/Hives Verified 08/17/20 16:19 Review of Systems ROS Other: All systems not noted in ROS Statement are negative. <Ace Vieyra - Last Filed: 08/17/20 19:02> ROS Other: All systems not noted in ROS Statement are negative. <Camille Perrin - Last Filed: 08/17/20 20:28> ROS Statement: Those systems with pertinent positive or pertinent negative responses have been documented in the HPI. EKG Findings - EKG Comments: EKG Findings:: Ventricular rate 82 bpm, MO interval 162 ms, QRS duration 90 ms, QT/QTC 390/4 and 55 ms, MO-T 23/-17/36. Normal sinus rhythm normal ECG - EKG Results: EKG: interpreted by MARINA RODRIGUEZ, sinus rhythm <VieyraAce - Last Filed: 08/17/20 19:02> Past Medical History Past Medical History: Coronary Artery Disease (CAD), Chest Pain / Angina, Diabetes Mellitus, Hyperlipidemia, Hypertension, Musculoskeletal Disorder History of Any Multi-Drug Resistant Organisms: None Reported Past Surgical History: Bladder Surgery, Coronary Bypass/CABG, Heart Catheterization, Heart Catheterization With Stent Additional Past Surgical History / Comment(s): CABG in 2013, Mitral valve on 2016, Heart Stent, bilateral leg stent Past Anesthesia/Blood Transfusion Reactions: No Reported Reaction Date of Last Stent Placement:: 06/25/20 Past Psychological History: Bipolar Smoking Status: Current every day smoker, Current some day smoker Past Alcohol Use History: None Reported Past Drug Use History: None Reported - Past Family History Father Family Medical History: Coronary Artery Disease (CAD) Additional Family Medical History / Comment(s): heart disease <JarrellCae - Last Filed: 08/17/20 19:02> General Exam Limitations: no limitations General appearance: alert, in no apparent distress Head exam: Present: atraumatic, normocephalic, normal inspection Eye exam: Present: normal appearance, PERRL, EOMI. Absent: scleral icterus, conjunctival injection, periorbital swelling ENT exam: Present: normal exam, mucous membranes moist Neck exam: Present: normal inspection. Absent: tenderness, meningismus, lymphadenopathy Respiratory exam: Present: normal lung sounds bilaterally. Absent: respiratory distress, wheezes, rales, rhonchi, stridor Cardiovascular Exam: Present: regular rate, normal rhythm, normal heart sounds. Absent: systolic murmur, diastolic murmur, rubs, gallop, clicks GI/Abdominal exam: Present: soft, normal bowel sounds. Absent: distended, tenderness, guarding, rebound, rigid Extremities exam: Present: normal inspection, full ROM, normal capillary refill. Absent: tenderness, pedal edema, joint swelling, calf tenderness Back exam: Present: normal inspection Neurological exam: Present: alert, oriented X3, CN II-XII intact Psychiatric exam: Present: normal affect, normal mood Skin exam: Present: warm, dry, intact, normal color. Absent: rash <Ace Vieyra - Last Filed: 08/17/20 19:02> Course <Ace Vieyra - Last Filed: 08/17/20 19:02> Vital Signs 08/17/20 08/17/20 08/17/20 14:16 15:03 16:15 Temperature 98.8 F Pulse Rate 80 81 80 Respiratory 18 18 18 Rate Blood Pressure 172/91 160/85 164/80 O2 Sat by Pulse 100 100 98 Oximetry 08/17/20 08/17/20 17:14 18:41 Temperature 98.4 F Pulse Rate 79 85 Respiratory 18 18 Rate Blood Pressure 129/73 143/73 O2 Sat by Pulse 99 100 Oximetry - Reevaluation(s) Reevaluation #1: 08/17/20 17:58 Patient appeared well and in no distress. Nurse noted that sugar was in the 390s, rapid acting insulin was given. (Ace Vieyra) Chest Pain MDM - Differential Diagnosis ACS - Wells Criteria Clinical Symptoms of DVT: (0) No Previous DVT/PE: (0) No Hemoptysis: (0) No Malignancy: (0) No - PERC Rule Heart Rate < 100: (0) No No Prior History pf DVT/PE: (0) No No Recent Trauma or Surgery: (1) Yes (Surgery on 08/10/2020) Hemoptysis: (0) No No Clinical Signs Suggesting DVT: (0) No - ANGY Score Age > 65: (0) No 3 or more CAD Risk Factors: (1) Yes Aspirin use within the Past 7 Days: (1) Yes <Ace Vieyra - Last Filed: 08/17/20 19:02> <Camille Perrin - Last Filed: 08/17/20 20:28> - [facility] 55-year-old female complaining of chest pain located centrally that wraps around her left rib cage to her back, patient is frequent visitor of the emergency department. Cardiac workup: Labs, EKG, telemetry, chest x-ray ordered. Toradol administered IM. Patient's blood sugar was 428, 12 units a rapid acting insulin was given. CT: No active cardiopulmonary disease. Normal heart no change Case discussed with Dr. Richard, and decided to admit patient to observation. (Ace Vieyra) Multiple attempts at ultrasound guided iv are performed without success. Anesthesia attempted iv without success (Camille Perrin) Disposition Time of Disposition: 19:01 <Ace Vieyra - Last Filed: 08/17/20 19:02> <Camille Perrin - Last Filed: 08/17/20 20:28> Clinical Impression: Chest pain, Unstable angina pectoris Disposition: ADMITTED IP TO THIS HOSP
--- NOTE | 2020-08-17 16:47 | XR ---
EXAMINATION TYPE: XR chest 2V DATE OF EXAM: 08/17/2020 COMPARISON: 07/20/2020 HISTORY: Chest pain TECHNIQUE: FINDINGS: Heart and mediastinum are normal. Lungs are clear. Diaphragm is normal. There are sternal w ires. There is apparent mitral valve prosthesis. Thoracic spine is intact. There is no pleural effusi on. IMPRESSION: No active cardiopulmonary disease. Normal heart. No change.
[2020-08-17] MEDS ORDERED: KETOROLAC 15 MG/ML 1 ML VIAL IM STA (17:18)
[2020-08-17 17:33] LABS: Basophils # (A) 0.1 k/uL (0-0.2); Basophils % (A) 1 %; Eosinophils # (A) 0.1 k/uL (0-0.7); Eosinophils % (A) 1 %; HCT 41.4 % (34.0-46.0); Lymphocytes # (A) 1.4 k/uL (1.0-4.8); Lymphocytes % (A) 27 %; MCH 31.9 pg (25.0-35.0); MCHC 33.7 g/dL (31.0-37.0); MCV 94.7 fL (80.0-100.0); Monocytes # (A) 0.3 k/uL (0-1.0); Monocytes % (A) 6 %; Neutrophils # (A) 3.3 k/uL (1.3-7.7); Neutrophils % (A) 64 %; Platelet Count 229 k/uL (150-450); RBC 4.37 m/uL (3.80-5.40); RDW 14.4 % (11.5-15.5); WBC 5.2 k/uL (3.8-10.6)
[2020-08-17 17:38] LABS: ALT 16 U/L (4-34); AST 21 U/L (14-36); African American GFR (CKD) >90 (>60 ml/min/1.73 sqM); Albumin 4.4 g/dL (3.5-5.0); Alkaline Phosphatase 128 U/L (38-126); Anion Gap 10 mmol/L; Blood Urea Nitrogen 12 mg/dL (7-17); Calcium 9.2 mg/dL (8.4-10.2); Carbon Dioxide 24 mmol/L (22-30); Chloride 101 mmol/L (98-107); Glucose 394 mg/dL (74-99); Magnesium 1.8 mg/dL (1.6-2.3); Non-African American GFR(CKD) >90 (>60 ml/min/1.73 sqM); Potassium 4.3 mmol/L (3.5-5.1); Sodium 135 mmol/L (137-145); Total Bilirubin 0.4 mg/dL (0.2-1.3); Total Protein 7.2 g/dL (6.3-8.2)
[2020-08-17 17:41] LABS: Glucose,Whole Blood 428 mg/dL (75-99)
[2020-08-17] MEDS ORDERED: INSULIN ASPART (NovoLOG) 100 UNIT/ML VIAL SQ ONE (17:47)
[2020-08-17] MEDS ORDERED: NITROGLYCERIN SL TABS 0.4 MG TAB SUBLINGUAL PRN (18:39)
[2020-08-17] MEDS ORDERED: SODIUM CHLORIDE 0.9% 1,000 ML IV SCH (18:45)
[2020-08-17 19:08] LABS: Glucose,Whole Blood 294 mg/dL (75-99)
[2020-08-17 21:08] LABS: Glucose,Whole Blood 96 mg/dL (75-99)
[2020-08-17] MEDS: INSULIN ASPART (NovoLOG) 100 UNIT/ML VIAL SQ SCH (21:10)
[2020-08-17 22:23] LABS: Glucose,Whole Blood 97 mg/dL (75-99)
[2020-08-18] MEDS: CYCLOBENZAPRINE 10 MG TAB PO SCH ×4 (00:39→20:35)
[2020-08-18] MEDS: FERROUS SULFATE 325 MG TAB PO SCH ×3 (00:39→20:36)
[2020-08-18] MEDS: levETIRAcetam 500 MG TAB PO SCH ×3 (00:40→20:35)
[2020-08-18] MEDS: HYDROcodone/APAP 5-325MG 1 EACH TAB PO SCH ×4 (00:40→20:34)
[2020-08-18] MEDS: NITROGLYCERIN OINT 1 INCH/GM PACKET TOPICAL SCH ×2 (00:41→06:02)
[2020-08-18] MEDS: LOPERAMIDE 2 MG CAP PO PRN (00:42)
[2020-08-18] MEDS: MIRTAZAPINE 45 MG TABLET PO SCH ×2 (00:44→20:36)
[2020-08-18] MEDS: ARIPiprazole 5 MG TAB PO SCH ×2 (00:44→20:34)
[2020-08-18 03:26] LABS: Glucose,Whole Blood 268 mg/dL (75-99)
[2020-08-18] MEDS: LEVOTHYROXINE 75 MCG TAB PO SCH (06:02)
[2020-08-18] MEDS: LEVOTHYROXINE 100 MCG TAB PO SCH (06:02)
[2020-08-18 07:41] LABS: Glucose,Whole Blood 239 mg/dL (75-99)
[2020-08-18] MEDS: CALCIUM CARBONATE 500 MG CHEWABLE PO SCH (07:53)
[2020-08-18] MEDS: METOPROLOL TARTRATE 25 MG TAB PO SCH ×2 (07:53→20:36)
[2020-08-18] MEDS: hydrOXYzine pamoate 25 MG CAP PO SCH ×3 (07:53→20:35)
[2020-08-18] MEDS: RANOLAZINE 500 MG TAB.ER.12H PO SCH ×2 (07:54→20:36)
[2020-08-18] MEDS: ATORVASTATIN 80 MG TAB PO SCH (07:54)
[2020-08-18] MEDS: SERTRALINE 50 MG TAB PO SCH (07:54)
[2020-08-18] MEDS: SODIUM BICARBONATE TAB 650 MG TAB PO SCH ×2 (07:55→20:35)
[2020-08-18] MEDS: PANTOPRAZOLE 40 MG TABLET PO SCH (07:55)
[2020-08-18] MEDS: TICAGRELOR 90 MG TAB PO SCH ×2 (07:55→20:35)
[2020-08-18] MEDS: FOLIC ACID 1 MG TAB PO SCH (07:55)
[2020-08-18] MEDS: INSULIN ASPART (NovoLOG) 100 UNIT/ML VIAL SQ SCH ×4 (07:56→20:33)
[2020-08-18] MEDS ORDERED: ASPIRIN 325 MG TAB PO SCH (09:00)
[2020-08-18] MEDS ORDERED: ISOSORBIDE MONONITRATE ER 30 MG TAB.ER.24H PO ONE (09:00)
[2020-08-18] MEDS ORDERED: ISOSORBIDE MONONITRATE ER 30 MG TAB.ER.24H PO SCH (09:00)
[2020-08-18] MEDS ORDERED: ISOSORBIDE MONONITRATE ER 60 MG TAB.ER.24H PO SCH (09:00)
[2020-08-18] MEDS ORDERED: ASPIRIN 81 MG PO SCH (09:00)
[2020-08-18] MEDS ORDERED: ALPRAZolam 0.25 MG TAB PO PRN (09:24)
[2020-08-18] MEDS ORDERED: ASPIRIN 81 MG PO STA (09:24)
[2020-08-18] MEDS ORDERED: ALPRAZolam 0.5 MG TAB PO PRN (09:24)
[2020-08-18] MEDS ORDERED: SODIUM CHLORIDE 0.9% 1,000 ML in EMPTY BAG 1 BAG IV ONE (09:24)
[2020-08-18] MEDS ORDERED: ATORVASTATIN 80 MG TAB PO STA (09:24)
[2020-08-18] MEDS ORDERED: NITROGLYCERIN SL TABS 0.4 MG TAB SUBLINGUAL PRN (09:24)
[2020-08-18 09:38] LABS: Chol/HDL Ratio 2.52; LDL Cholesterol,Calculated 93.6 mg/dL (0.0-131.0); VLDL Calculation 43.4 mg/dL (5.00-40.00)
--- NOTE | 2020-08-18 11:26 | P.HPIM ---
History of Present Illness H&P Date: 08/18/20 Chief Complaint: chest pain This is a 55-year-old female patient who presented to the ER with complaints of chest pain. Patient has had frequent admissions over the past month. Patient reports that the pain started suddenly last night and describes pain as sharp and constant with no relief after nitros. Patient has history of recent stent placement in June. Patient reports that she has been taking her Brilinta as scheduled. Patient had recent GI bleed but was recently scoped and cleared to resume Brilinta. Additional medical history includes coronary artery disease with history of CABG in 2013, diabetes mellitus, hyperlipidemia, hypertension, nicotine dependence and bipolar. Chest x-ray completed showing no active cardiopulmonary disease. Normal heart. No change. Troponins negative 3. Patient was evaluated by cardiology services and plan is to undergo heart catheterization today. Patient is difficult to obtain IV access. Per nursing staff IV access has been obtained. This time patient is complaining of mild chest pain. Patient denies shortness breath. Patient denies nausea vomiting or diarrhea. Patient denies any urinary burning or frequency Review of Systems Please refer to HPI otherwise unremarkable Past Medical History Past Medical History: Coronary Artery Disease (CAD), Chest Pain / Angina, COPD, CVA/TIA, Diabetes Mellitus, GI Bleed, Hyperlipidemia, Hypertension, Myocardial Infarction (MO), Musculoskeletal Disorder, Pneumonia, Thyroid Disorder Additional Past Medical History / Comment(s): MS,cva x4 last one 2016. Last Myocardial Infarction Date:: 2015 History of Any Multi-Drug Resistant Organisms: None Reported Past Surgical History: Appendectomy, Bladder Surgery, Cholecystectomy, Coronary Bypass/CABG, Heart Catheterization, Heart Catheterization With Stent, Hysterectomy Additional Past Surgical History / Comment(s): CABG in 2013, Mitral valve on 2017, Heart Stent x 30, bilateral leg stent Past Anesthesia/Blood Transfusion Reactions: No Reported Reaction Date of Last Stent Placement:: 06/25/20 Past Psychological History: Anxiety, Bipolar Smoking Status: Current every day smoker Past Alcohol Use History: None Reported Past Drug Use History: None Reported - Past Family History Father Family Medical History: Coronary Artery Disease (CAD) Additional Family Medical History / Comment(s): heart disease Medications and Allergies Home Medications Medication Instructions Recorded Confirmed Type ARIPiprazole [Abilify] 5 mg PO HS 05/21/20 08/17/20 History Atorvastatin [Lipitor] 80 mg PO DAILY 05/21/20 08/17/20 History Calcium Carbonate [Calcium] 600 mg PO DAILY 05/21/20 08/17/20 History Cyclobenzaprine [Flexeril] 10 mg PO TID 05/21/20 08/17/20 History Ferrous Sulfate [Iron (65 MG 325 mg PO BID 05/21/20 08/17/20 History Elemental)] Folic Acid 1 mg PO DAILY 05/21/20 08/17/20 History INSULIN ASPART (NovoLOG) [NovoLOG See Protocol SQ ACHS 05/21/20 08/17/20 History (formulary)] Isosorbide Mononitrate ER [Imdur] 30 mg PO DAILY 05/21/20 08/17/20 History Levothyroxine Sodium [Synthroid] 175 mcg PO DAILY 05/21/20 08/17/20 History Metoprolol Tartrate [Lopressor] 25 mg PO BID 05/21/20 08/17/20 History Mirtazapine [Remeron] 45 mg PO HS 05/21/20 08/17/20 History QUEtiapine [SEROquel] 50 mg PO HS 05/21/20 08/17/20 History Ranolazine [Ranexa] 1,000 mg PO BID 05/21/20 08/17/20 History Sertraline [Zoloft] 50 mg PO DAILY 05/21/20 08/17/20 History hydrOXYzine pamoate [Vistaril] 25 mg PO TID 05/21/20 08/17/20 History levETIRAcetam [Keppra] 500 mg PO BID 05/21/20 08/17/20 History Loperamide [Imodium] 2 mg PO QID PRN 06/08/20 08/17/20 History Nitroglycerin Sl Tabs [Nitrostat] 0.4 mg SUBLINGUAL Q5M PRN 90 Days 06/27/20 08/17/20 Rx #100 tab Ticagrelor [Brilinta] 90 mg PO BID tab 06/27/20 08/17/20 Rx Insulin Glargine,Hum.rec.anlog 30 unit SQ BID #0 07/14/20 08/17/20 Rx [Lantus Solostar] Pantoprazole [Protonix] 40 mg PO AC-BRKFST 30 Days #30 07/14/20 08/17/20 Rx tablet. Sodium Bicarbonate Tab 650 mg PO BID 30 Days #60 tab 07/14/20 08/17/20 Rx Lidocaine 5% Patch [Lidoderm 5% 1 - 2 patch TOPICAL DAILY@1300 PRN 07/20/20 08/17/20 History Patch] HYDROcodone/APAP 5-325MG [[place] 1 tab PO TID 3 Days #9 tab 08/01/20 08/17/20 Rx 5-325] Allergies Allergy/AdvReac Type Severity Reaction Status Date / Time gabapentin Allergy Anaphylaxis Verified 08/17/20 16:19 shellfish derived [Crab] Allergy Rash/Hives Verified 08/17/20 16:19 Physical Exam Vitals: Vital Signs Temp Pulse Pulse Resp BP BP Pulse Ox 08/18/20 08:00 98.3 F 84 17 131/73 96 08/18/20 05:59 93 124/71 08/18/20 03:20 98.5 F 82 18 118/65 94 L 08/18/20 00:11 79 18 134/75 97 08/17/20 20:15 98.3 F 90 18 125/86 98 08/17/20 18:41 85 18 143/73 100 08/17/20 17:14 98.4 F 79 18 129/73 99 08/17/20 16:15 80 18 164/80 98 08/17/20 15:03 81 18 160/85 100 08/17/20 14:16 98.8 F 80 18 172/91 100 Intake and Output 08/17/20 08/18/20 08/18/20 22:59 06:59 14:59 Other: Voiding Method Toilet # Voids 1 1 Weight 80.739 kg Head normocephalic Neck supple Lungs clear to auscultation bilaterally no wheezing or crackles Heart regular rate and rhythm S1-S2, no rub or gallop Abdomen is soft nontender nondistended positive bowel sounds no hepatosplenomegaly Extremities no edema Neuro alert and orientated to 3 Results CBC & Chem 7: 08/17/20 16:56 08/17/20 16:56 Labs: Abnormal Lab Results - Last 24 Hours (Table) 08/17/20 08/17/20 08/17/20 Range/Units 16:56 17:40 19:06 Sodium 135 L (137-145) mmol/L Glucose 394 H (74-99) mg/dL POC Glucose (mg/dL) 428 H 294 H (75-99) mg/dL Alkaline Phosphatase 128 H (38-126) U/L Triglycerides (0.0-149.0) mg/dL Cholesterol (0-200) mg/dL VLDL Cholesterol, Calc (5.00-40.00) mg/dL HDL Cholesterol (40.0-60.0) mg/dL 08/17/20 08/18/20 08/18/20 Range/Units 23:15 03:23 07:40 Sodium (137-145) mmol/L Glucose (74-99) mg/dL POC Glucose (mg/dL) 268 H 239 H (75-99) mg/dL Alkaline Phosphatase (38-126) U/L Triglycerides 217.0 H (0.0-149.0) mg/dL Cholesterol 227 H (0-200) mg/dL VLDL Cholesterol, Calc 43.40 H (5.00-40.00) mg/dL HDL Cholesterol 90.0 H (40.0-60.0) mg/dL Thrombosis Risk Factor Assmnt - Choose All That Apply Any of the Below Risk Factors Present?: Yes Each Factor Represents 1 point: Abnormal pulmonary function (COPD), Age 41-60 years, Obesity (BMI >25) Other Risk Factors: No Other congenital or acquired thrombophilia - If yes, enter type in comment: No Thrombosis Risk Factor Assessment Total Risk Factor Score: 3 Thrombosis Risk Factor Assessment Level: Moderate Risk Assessment and Plan Assessment: 1. Chest pain. Troponins negative 3. Chest x-ray negative. Patient was evaluated by cardiology services. Patient to undergo cardiac catheterization today 2. Recent admission for rectal bleeding. Patient underwent EGD and colonoscopy and was cleared to resume blood thinner 3. Underlying history of coronary artery disease with recent angioplasty and stent placement June 2020. Patient has been maintained on Brilinta and aspirin and does reports she has sensitivities meds as ordered 4. Essential hypertension 5. Diabetes mellitus type 2 6. Hyperlipidemia. Maintained on statin 7. Nicotine dependence. Nicotine patch will be ordered. Patient educated greater than 3 minutes as was statin 8. Bipolar disorder 9. History of seizure disorder. Maintained on Keppra 10. Hypothyroidism. Maintained on Synthroid Time with Patient: Greater than 30
--- NOTE | 2020-08-18 11:32 | P.CRDCN ---
History of Present Illness Consult date: 08/18/20 History of present illness: CHIEF COMPLAINT: Chest pain HISTORY OF PRESENT ILLNESS: This is a 55-year-old female with a past medical history significant for coronary artery disease with previous PCI and CABG, mitral valve replacement nicotine dependence, hypertension, hyperlipidemia, and CVA. Patient follows with Dr. Salcedo in [place]. We have been asked to see the patient in consultation for chest pain. Patient underwent cardiac cath in June [address] Murillo with PCI to the PDA branch of the right coronary artery. Patient has been evaluated for chest pain since her stent was placed in June. She underwent dobutamine stress test in July 2020 which was inconclusive secondary to inability to obtain target heart rate. Patient states she has not followed up with a keyboard action assembler since having her stent placed in June. Patient is somewhat of a poor historian. She reports having chest pain yesterday that started near her left breast and radiated around to her back. She denied any shortness of breath. She denied any nausea or vomiting. Patient states the pain is not worse with inspiration or movement. She states she was given Toradol in the emergency room which did not help the pain. She continues to complain of left-sided chest discomfort this morning. DIAGNOSTICS: EKG reveals sinus mechanism with no signs of acute ischemia Chest xray negative for acute process Laboratory data: WBC 5.2. Hemoglobin 14.0. Platelet count 229. Sodium 135. Potassium 4.3. BUN 12. Creatinine 0.70. Magnesium 1.8. Troponin negative 3. Current home cardiac medications include Brilinta 90 mg BID, metoprolol 25 mg twice a day, Imdur 30 mg daily, Lipitor 80 mg daily, and Ranexa 100 mg twice a day Echocardiogram completed in May 2020 reveal ejection fraction 55-60%, normally functioning bioprosthetic mitral valve, mild tricuspid regurgitation. REVIEW OF SYSTEMS: At the time of my exam: CONSTITUTIONAL: Denies fever or chills. HEENT: Denies blurred vision, vision changes, or eye pain. Denies hemoptysis CARDIOVASCULAR: Denies chest pain, orthopnea, PND or palpitations RESPIRATORY: No shortness of breath. GASTROINTESTINAL: Denies abdominal pain. Denies nausea or vomiting. HEMATOLOGIC: Denies bleeding disorders. GENITOURINARY: Denies any blood in urine. SKIN: Denies pruitis. Denies rash. PHYSICAL EXAM: VITAL SIGNS: Reviewed. GENERAL: Well-developed in no acute distress. HEENT: Head is normocephalic. Pupils are equal, round. Sclerae anicteric. Mucous membranes of the mouth are moist. Neck supple. No JVD or thyromegaly LUNGS: Respirations even and unlabored. Lungs essentially clear to auscultation bilaterally. HEART: Regular rate and rhythm. S1 and S2 heard. Systolic murmur noted ABDOMEN: Soft. Nondistended. Nontender. EXTREMITIES: Normal range of motion. No clubbing or cyanosis. Peripheral pulses intact. No lower extremity edema NEUROLOGIC: Awake and alert. Oriented x 3. ASSESSMENT: Chest pain Coronary artery disease with recent PCI to PDA branch of RCA, June 2020 History of coronary artery bypass grafting Valvular heart disease, status post bioprosthetic mitral valve replacement Hypertension Hyperlipidemia Diabetes mellitus, type II Peripheral vascular disease Nicotine dependence PLAN: No need to repeat echo as this was performed in May 2020 Increase imdur to 60mg daily Add lisinopril 2.5mg daily Decrease aspirin to 81mg daily Patient to undergo cardiac cath today with Dr. Murillo Nurse practitioner note has been reviewed by physician. Signing provider agrees with the documented findings, assessment, and plan of care. Past Medical History Past Medical History: Coronary Artery Disease (CAD), Chest Pain / Angina, COPD, CVA/TIA, Diabetes Mellitus, GI Bleed, Hyperlipidemia, Hypertension, Myocardial Infarction (NC), Musculoskeletal Disorder, Pneumonia, Thyroid Disorder Additional Past Medical History / Comment(s): MS,cva x4 last one 2016. Last Myocardial Infarction Date:: 2016 History of Any Multi-Drug Resistant Organisms: None Reported Past Surgical History: Appendectomy, Bladder Surgery, Cholecystectomy, Coronary Bypass/CABG, Heart Catheterization, Heart Catheterization With Stent, Hysterectomy Additional Past Surgical History / Comment(s): CABG in 2014, Mitral valve on 2017, Heart Stent x 30, bilateral leg stent Past Anesthesia/Blood Transfusion Reactions: No Reported Reaction Date of Last Stent Placement:: 06/25/20 Past Psychological History: Anxiety, Bipolar Smoking Status: Current every day smoker Past Alcohol Use History: None Reported Past Drug Use History: None Reported - Past Family History Father Family Medical History: Coronary Artery Disease (CAD) Additional Family Medical History / Comment(s): heart disease Medications and Allergies Home Medications Medication Instructions Recorded Confirmed Type ARIPiprazole [Abilify] 5 mg PO HS 11/06/20 02/02/21 History Atorvastatin [Lipitor] 80 mg PO DAILY 05/21/20 08/17/20 History Calcium Carbonate [Calcium] 600 mg PO DAILY 05/21/20 08/17/20 History Cyclobenzaprine [Flexeril] 10 mg PO TID 05/21/20 08/17/20 History Ferrous Sulfate [Iron (65 MG 325 mg PO BID 05/21/20 08/17/20 History Elemental)] Folic Acid 1 mg PO DAILY 05/21/20 08/17/20 History INSULIN ASPART (NovoLOG) [NovoLOG See Protocol SQ ACHS 05/21/20 08/17/20 History (formulary)] Isosorbide Mononitrate ER [Imdur] 30 mg PO DAILY 05/21/20 08/17/20 History Levothyroxine Sodium [Synthroid] 175 mcg PO DAILY 05/21/20 08/17/20 History Metoprolol Tartrate [Lopressor] 25 mg PO BID 05/21/20 08/17/20 History Mirtazapine [Remeron] 45 mg PO HS 05/21/20 08/17/20 History QUEtiapine [SEROquel] 50 mg PO HS 05/21/20 08/17/20 History Ranolazine [Ranexa] 1,000 mg PO BID 05/21/20 08/17/20 History Sertraline [Zoloft] 50 mg PO DAILY 05/21/20 08/17/20 History hydrOXYzine pamoate [Vistaril] 25 mg PO TID 05/21/20 08/17/20 History levETIRAcetam [Keppra] 500 mg PO BID 05/21/20 08/17/20 History Loperamide [Imodium] 2 mg PO QID PRN 06/08/20 08/17/20 History Nitroglycerin Sl Tabs [Nitrostat] 0.4 mg SUBLINGUAL Q5M PRN 90 Days 06/27/20 08/17/20 Rx #100 tab Ticagrelor [Brilinta] 90 mg PO BID tab 06/27/20 08/17/20 Rx Insulin Glargine,Hum.rec.anlog 30 unit SQ BID #0 07/14/20 08/17/20 Rx [Lantus Solostar] Pantoprazole [Protonix] 40 mg PO AC-BRKFST 30 Days #30 07/14/20 08/17/20 Rx tablet. Sodium Bicarbonate Tab 650 mg PO BID 30 Days #60 tab 07/14/20 08/17/20 Rx Lidocaine 5% Patch [Lidoderm 5% 1 - 2 patch TOPICAL DAILY@1300 PRN 07/20/20 08/17/20 History Patch] HYDROcodone/APAP 5-325MG [Martin 1 tab PO TID 3 Days #9 tab 08/01/20 08/17/20 Rx 5-325] Allergies Allergy/AdvReac Type Severity Reaction Status Date / Time gabapentin Allergy Anaphylaxis Verified 08/17/20 16:19 shellfish derived [Crab] Allergy Rash/Hives Verified 08/17/20 16:19 Physical Exam Vitals: Vital Signs Temp Pulse Pulse Resp BP BP Pulse Ox 08/18/20 08:00 98.3 F 84 17 131/73 96 08/18/20 05:59 93 124/71 08/18/20 03:20 98.5 F 82 18 118/65 94 L 08/18/20 00:11 79 18 134/75 97 08/17/20 20:15 98.3 F 90 18 125/86 98 08/17/20 18:41 85 18 143/73 100 08/17/20 17:14 98.4 F 79 18 129/73 99 08/17/20 16:15 80 18 164/80 98 08/17/20 15:03 81 18 160/85 100 08/17/20 14:16 98.8 F 80 18 172/91 100 Intake and Output 08/17/20 08/18/20 08/18/20 22:59 06:59 14:59 Other: Voiding Method Toilet # Voids 1 1 Weight 80.739 kg Results 08/17/20 16:56 08/17/20 16:56 Cardiac Enzymes 08/17/20 08/17/20 08/17/20 Range/Units 16:56 16:56 19:08 AST 21 (14-36) U/L Troponin I <0.012 <0.012 (0.000-0.034) ng/mL 08/17/20 Range/Units 23:15 AST (14-36) U/L Troponin I <0.012 (0.000-0.034) ng/mL Lipids 08/17/20 Range/Units 23:15 Triglycerides 217.0 H (0.0-149.0) mg/dL Cholesterol 227 H (0-200) mg/dL HDL Cholesterol 90.0 H (40.0-60.0) mg/dL Cholesterol/HDL Ratio 2.52 CBC 08/17/20 Range/Units 16:56 WBC 5.2 (3.8-10.6) k/uL RBC 4.37 (3.80-5.40) m/uL Hgb 14.0 (11.4-16.0) gm/dL Hct 41.4 (34.0-46.0) % Plt Count 229 (150-450) k/uL Comprehensive Metabolic Panel 08/17/20 Range/Units 16:56 Sodium 135 L (137-145) mmol/L Potassium 4.3 (3.5-5.1) mmol/L Chloride 101 (98-107) mmol/L Carbon Dioxide 24 (22-30) mmol/L BUN 12 (7-17) mg/dL Creatinine 0.70 (0.52-1.04) mg/dL Glucose 394 H (74-99) mg/dL Calcium 9.2 (8.4-10.2) mg/dL AST 21 (14-36) U/L ALT 16 (4-34) U/L Alkaline Phosphatase 128 H (38-126) U/L Total Protein 7.2 (6.3-8.2) g/dL Albumin 4.4 (3.5-5.0) g/dL Current Medications Generic Name Dose Route Start Last Admin Trade Name Freq PRN Reason Stop Dose Admin Hydrocodone Bitart/Acetaminophen 1 each 08/18/20 00:30 08/18/20 07:55 Hydrocodone/Apap 5-325mg 1 Each Tab PO 1 each TID CAROLYN Administration Alprazolam 0.25 mg 08/18/20 09:24 Alprazolam 0.25 Mg Tab PO Q6HR PRN Mild Anxiety Alprazolam 0.5 mg 08/18/20 09:24 Alprazolam 0.5 Mg Tab PO Q6HR PRN Moderate Anxiety Aripiprazole 5 mg 08/18/20 00:30 08/18/20 00:44 Aripiprazole 5 Mg Tab PO 5 mg HS CAROLYN Administration Aspirin 81 mg 08/19/20 09:00 Aspirin 81 Mg PO DAILY [facility] Atorvastatin Calcium 80 mg 08/18/20 09:00 08/18/20 07:54 Atorvastatin 80 Mg Tab PO 80 mg DAILY [facility] Administration Calcium Carbonate/Glycine 500 mg 08/18/20 09:00 08/18/20 07:53 Calcium Carbonate 500 Mg Chewable PO 500 mg DAILY CAROLYN Administration Cyclobenzaprine HCl 10 mg 08/18/20 00:30 08/18/20 07:55 Cyclobenzaprine 10 Mg Tab PO 10 mg TID CAROLYN Administration Ferrous Sulfate 325 mg 08/18/20 00:30 08/18/20 07:55 Ferrous Sulfate 325 Mg Tab PO 325 mg BID [facility] Administration Folic Acid 1 mg 08/18/20 09:00 08/18/20 07:55 Folic Acid 1 Mg Tab PO 1 mg DAILY CAROLYN Administration Hydroxyzine Pamoate 25 mg 08/18/20 09:00 08/18/20 07:53 Hydroxyzine Pamoate 25 Mg Cap PO 25 mg TID CAROLYN Administration Sodium Chloride 1,000 ml/ IV 1,000 mls @ 80.739 mls/hr 08/18/20 09:24 08/18/20 10:00 Solution IV 08/18/20 21:47 80.739 mls/hr .[id number] ONE Administration 1 ML/KG/HR Heparin Sodium (Porcine) 10, 1,001 mls @ 999 mls/hr 08/19/20 07:00 000 unit/ Sodium Chloride IRRIGATION 08/19/20 23:00 ONCE PRN INTRA-OP Heparin Sodium (Porcine) 2,500 250.5 mls @ 250 mls/hr 08/19/20 07:00 unit/ Sodium Chloride IRRIGATION 08/19/20 23:00 ONCE PRN INTRA-OP Insulin Aspart 0 unit 08/17/20 21:00 08/18/20 07:56 Insulin Aspart (Novolog) 100 Unit/Ml Vial SQ Not Given ACHS [facility] Protocol Isosorbide Mononitrate 60 mg 08/19/20 09:00 Isosorbide Mononitrate Er 60 Mg Tab.Er.24h PO DAILY [facility] Levetiracetam 500 mg 08/18/20 00:30 08/18/20 07:54 Levetiracetam 500 Mg Tab PO 500 mg BID [facility] Administration Levothyroxine Sodium 100 mcg 08/18/20 06:30 08/18/20 06:02 Levothyroxine 100 Mcg Tab PO 100 mcg DAILY@0630 CAROLYN Administration Levothyroxine Sodium 75 mcg 08/18/20 06:30 08/18/20 06:02 Levothyroxine 75 Mcg Tab PO 75 mcg DAILY@0630 CAROLYN Administration Lidocaine 1 patch 08/18/20 13:00 Lidocaine 5% Patch TOPICAL DAILY@1300 PRN lower back pain Loperamide HCl 2 mg 08/18/20 01:00 08/18/20 00:42 Loperamide 2 Mg Cap PO 2 mg QID PRN Administration Diarrhea Metoprolol Tartrate 25 mg 08/18/20 09:00 08/18/20 07:53 Metoprolol Tartrate 25 Mg Tab PO 25 mg BID CAROLYN Administration Mirtazapine 45 mg 08/18/20 01:00 08/18/20 00:44 Mirtazapine 45 Mg Tablet PO 45 mg HS [facility] Administration Nitroglycerin 0.4 mg 08/17/20 18:39 Nitroglycerin Sl Tabs 0.4 Mg Tab SUBLINGUAL Q5M PRN Chest Pain Nitroglycerin 0.4 mg 08/18/20 09:24 Nitroglycerin Sl Tabs 0.4 Mg Tab SUBLINGUAL Q5M PRN Chest Pain Pantoprazole Sodium 40 mg 08/18/20 07:30 08/18/20 07:55 Pantoprazole 40 Mg Tablet PO 40 mg AC-BRKFST [facility] Administration Quetiapine Fumarate 50 mg 08/18/20 21:00 Quetiapine 50 Mg Tab PO HS [facility] Ranolazine 1,000 mg 08/18/20 09:00 08/18/20 07:54 Ranolazine 500 Mg Tab.Er.12h PO 1,000 mg BID CAROLYN Administration Sertraline HCl 50 mg 08/18/20 09:00 08/18/20 07:54 Sertraline 50 Mg Tab PO 50 mg DAILY CAROLYN Administration Sodium Bicarbonate 650 mg 08/18/20 09:00 08/18/20 07:55 Sodium Bicarbonate Tab 650 Mg Tab PO 650 mg BID CAROLYN Administration Ticagrelor 90 mg 08/18/20 09:00 08/18/20 07:55 Ticagrelor 90 Mg Tab PO 90 mg BID [facility] Administration Intake and Output 08/17/20 08/18/20 08/18/20 22:59 06:59 14:59 Other: Voiding Method Toilet # Voids 1 1 Weight 80.739 kg 08/17/20 16:56 08/17/20 16:56
[2020-08-18 11:50] LABS: Glucose,Whole Blood 245 mg/dL (75-99)
[2020-08-18] MEDS ORDERED: LIDOCAINE 5% PATCH TOPICAL PRN (13:00)
[2020-08-18] MEDS ORDERED: IV FLUID CONTINUATION 750 ML IV ONE (13:18)
[2020-08-18] MEDS ORDERED: LIDOCAINE 1% INJ 10MG/ML (20 ML MDV) ONE (13:21)
[2020-08-18] MEDS ORDERED: MIDAZOLAM 2 MG/2 ML VIAL IV ONE (13:43)
[2020-08-18] MEDS ORDERED: LIDOCAINE 1% INJ 10MG/ML (20 ML MDV) SQ ONE (13:45)
[2020-08-18] MEDS ORDERED: fentaNYL (PF) 50 MCG/ML 2 ML AMP IV ONE (13:50)
[2020-08-18] MEDS ORDERED: fentaNYL (PF) 50 MCG/ML 2 ML AMP ONE (13:50)
[2020-08-18] MEDS ORDERED: IOPAMIDOL-370 125ML BTL INJ ONE (14:12)
[2020-08-18] MEDS ORDERED: RX INFO: IV CONTRAST WAS GIVEN 1 EACH MISC MISCELLANE PRN (14:14)
[2020-08-18] MEDS ORDERED: SODIUM CHLORIDE 0.9% 1,000 ML IV SCH (14:15)
--- NOTE | 2020-08-18 15:30 | CC ---
CARDIAC CATHETERIZATION REPORT DATE OF SERVICE: 08/18/2020 PERFORMING PHYSICIAN: Elier Murillo M.D. PROCEDURES PERFORMED: 1. Selective left and right coronary angiogram. 2. ROBLES to LAD angiogram. 3. Right common and external iliac artery angiogram. 4. Left common femoral artery angiogram. INDICATION: This is a 55-year-old female patient with coronary artery disease and prior coronary artery bypass grafting as well as stenting, with the last heart catheterization performed recently showing occluded LAD with patent ROBLES to LAD as well as occluded left circumflex and ramus intermedius and severe disease involving the RCA, was transferred to [facility] and underwent stenting of the right coronary artery. She presented to the hospital complaining of chest discomfort concerning for angina. Because of that, a heart catheterization was advised. APPROACH: Left common femoral artery. COMPLICATIONS: None. LEVEL OF SEDATION: Moderate, with sedation length of 26 minutes. PROCEDURE DESCRIPTION: After obtaining informed consent, the patient was brought to the cardiac laborer stores. The left common femoral artery was cannulated using micropuncture technique. The micropuncture wire passed easily. Then I placed a 6-Czech sheath at the left common femoral artery. I could not feel any pulse at the right groin. Because of that, we accessed the left common femoral artery. Selective left and right coronary angiogram was performed using JL4 and JR4 catheters. ROBLES to LAD angiogram was performed using the JR4 catheter. The procedure was completed without any complication. SELECTIVE CORONARY ANGIOGRAM: 1. The left main is angiographically normal. It bifurcates into LCX and LAD. 2. The LCX is a large-caliber vessel. It is a nondominant vessel. The left circumflex in the mid portion gives rise to a large OM branch which appeared to be occluded, which seems to be in-stent occlusion. 3. The ramus intermedius is a medium- to large-caliber vessel which seems to also have an in-stent occlusion. 4. The LAD is occluded in the mid portion. 5. The RCA is a large-caliber vessel. It is a dominant vessel. The RCA is stented in the mid portion and the stent is patent. ANGIOGRAM OF CORONARY BYPASSES: 1. The ROBLES to LAD is patent. 2. All SVGs are occluded from a prior heart catheterization. CONCLUSION: 1. Occluded LAD in the mid portion. The ROBLES to LAD is patent. 2. Occluded ramus intermedius which seems to be an in-stent occlusion. 3. Occluded left circumflex which seems to be also an in-stent occlusion. 4. Patent stent in the right coronary artery. Given the above anatomy, I did advise maximized medical treatment at this point. Please consider doing balloon angioplasty of the right external iliac artery because she has a critical lesion in the right external iliac artery and we could not feel pulse in the right groin; if the patient of course is symptomatic in terms of right leg intermittent claudication. Follow up with the patient. MMODL / IJN: [id number] /
[2020-08-18 16:21] LABS: Glucose,Whole Blood 242 mg/dL (75-99)
[2020-08-18 20:14] LABS: Glucose,Whole Blood 308 mg/dL (75-99)
[2020-08-18] MEDS: QUEtiapine 50 MG TAB PO SCH (20:36)
[2020-08-19 02:33] LABS: Glucose,Whole Blood 223 mg/dL (75-99)
[2020-08-19] MEDS: LEVOTHYROXINE 75 MCG TAB PO SCH (05:16)
[2020-08-19] MEDS: LEVOTHYROXINE 100 MCG TAB PO SCH (05:16)
[2020-08-19] MEDS ORDERED: HEPARIN SODIUM,PORCINE 2,500 UNIT in SODIUM CHLORIDE 0.9% 250 ML IRRIGATION PRN (07:00)
[2020-08-19] MEDS ORDERED: HEPARIN SODIUM,PORCINE 10,000 UNIT in SODIUM CHLORIDE 0.9% 1,000 ML IRRIGATION PRN (07:00)
[2020-08-19 07:49] LABS: Glucose,Whole Blood 191 mg/dL (75-99)
[2020-08-19] MEDS: INSULIN ASPART (NovoLOG) 100 UNIT/ML VIAL SQ SCH ×4 (08:02→21:29)
[2020-08-19] MEDS: PANTOPRAZOLE 40 MG TABLET PO SCH (08:02)
[2020-08-19 08:31] LABS: Basophils # (A) 0.02 X 10*3/uL (0.00-0.10); Basophils % (A) 0.4 %; Eosinophils # (A) 0.11 X 10*3/uL (0.04-0.35); Eosinophils % (A) 2.2 %; HCT 36.7 % (37.2-46.3); HGB 12.1 g/dL (12.0-15.0); Lymphocytes # (A) 1.09 X 10*3/uL (0.90-5.00); Lymphocytes % (A) 22.2 %; MCH 30.9 pg (27.0-32.0); MCV 93.6 fL (80.0-97.0); Monocytes % (A) 6.1 %; Neutrophils # (A) 3.38 X 10*3/uL (1.80-7.70); Neutrophils % (A) 68.7 %; Platelet Count 246 X 10*3/uL (140-440); RBC 3.92 X 10*6/uL (4.10-5.20); RDW 13.2 % (11.5-14.5); WBC 4.92 X 10*3/uL (4.50-10.00)
[2020-08-19] MEDS: hydrOXYzine pamoate 25 MG CAP PO SCH ×3 (09:29→21:16)
[2020-08-19] MEDS: FOLIC ACID 1 MG TAB PO SCH (09:29)
[2020-08-19] MEDS: SODIUM BICARBONATE TAB 650 MG TAB PO SCH ×2 (09:29→21:16)
[2020-08-19] MEDS: SERTRALINE 50 MG TAB PO SCH (09:29)
[2020-08-19] MEDS: HYDROcodone/APAP 5-325MG 1 EACH TAB PO SCH ×3 (09:29→21:16)
[2020-08-19] MEDS: CYCLOBENZAPRINE 10 MG TAB PO SCH ×3 (09:29→21:16)
[2020-08-19] MEDS: CALCIUM CARBONATE 500 MG CHEWABLE PO SCH (09:30)
[2020-08-19] MEDS: ASPIRIN 81 MG PO SCH (09:30)
[2020-08-19] MEDS: RANOLAZINE 500 MG TAB.ER.12H PO SCH ×2 (09:30→21:17)
[2020-08-19] MEDS: ISOSORBIDE MONONITRATE ER 60 MG TAB.ER.24H PO SCH (09:30)
[2020-08-19] MEDS: levETIRAcetam 500 MG TAB PO SCH ×2 (09:30→21:16)
[2020-08-19] MEDS: METOPROLOL TARTRATE 25 MG TAB PO SCH ×2 (09:31→21:16)
[2020-08-19] MEDS: TICAGRELOR 90 MG TAB PO SCH ×2 (09:31→21:18)
[2020-08-19] MEDS: FERROUS SULFATE 325 MG TAB PO SCH ×2 (09:32→21:16)
[2020-08-19] MEDS: ATORVASTATIN 80 MG TAB PO SCH (09:33)
[2020-08-19] MEDS: NICOTINE 14MG/24HR PATCH TRANSDERM SCH (09:34)
--- NOTE | 2020-08-19 10:13 | P.PN ---
Subjective Progress Note Date: 08/19/20 CHIEF COMPLAINT: Chest pain HISTORY OF PRESENT ILLNESS: 08/18/2020 This is a 55-year-old female with a past medical history significant for coronary artery disease with previous PCI and CABG, mitral valve replacement nicotine dependence, hypertension, hyperlipidemia, and CVA. Patient follows with Dr. Salcedo in [place]. We have been asked to see the patient in consultation for chest pain. Patient underwent cardiac cath in June [address] Murillo with PCI to the PDA branch of the right coronary artery. Patient has been evaluated for chest pain since her stent was placed in June. She underwent dobutamine stress test in July 2020 which was inconclusive secondary to inability to obtain target heart rate. Patient states she has not followed up with a cna gna since having her stent placed in June. Patient is somewhat of a poor historian. She reports having chest pain yesterday that started near her left breast and radiated around to her back. She denied any shortness of breath. She denied any nausea or vomiting. Patient states the pain is not worse with inspiration or movement. She states she was given Toradol in the emergency room which did not help the pain. She continues to complain of left- sided chest discomfort this morning. Echocardiogram completed in May 2020 reveal ejection fraction 55-60%, normally functioning bioprosthetic mitral valve, mild tricuspid regurgitation. 08/19/2020 Patient underwent cardiac cath yesterday with Dr. Murillo revealing occluded LAD in the midportion. ROBLES to LAD is patent. Occluded ramus intermedius which seems to be an in-stent occlusion. Occluded left circumflex which seems to be an in- stent occlusion. Patent stent in the right coronary artery. Patient examined this morning at the bedside. She denies chest pain or pressure. She denies shortness of breath. Vital signs are stable. Heart rate in the 80s. She is on room air with oxygen saturations greater than 92%. She is afebrile. PHYSICAL EXAM: VITAL SIGNS: Reviewed. GENERAL: Well-developed in no acute distress. HEENT: Head is normocephalic. Pupils are equal, round. Sclerae anicteric. Mucous membranes of the mouth are moist. Neck supple. No JVD or thyromegaly LUNGS: Respirations even and unlabored. Lungs essentially clear to auscultation bilaterally. HEART: Regular rate and rhythm. S1 and S2 heard. Systolic murmur noted ABDOMEN: Soft. Nondistended. Nontender. EXTREMITIES: Normal range of motion. No clubbing or cyanosis. Peripheral pulses intact. No lower extremity edema. Left groin soft with no hematoma noted. NEUROLOGIC: Awake and alert. Oriented x 3. ASSESSMENT: Chest pain Coronary artery disease with recent PCI to PDA branch of RCA, June 2020 History of coronary artery bypass grafting Valvular heart disease, status post bioprosthetic mitral valve replacement Hypertension Hyperlipidemia Diabetes mellitus, type II Peripheral vascular disease Nicotine dependence PLAN: Continue current cardiac medications Patient may be discharged home today from a cardiac standpoint and follow-up with her cna gna in [place], Dr. Salcedo Nurse practitioner note has been reviewed by physician. Signing provider agrees with the documented findings, assessment, and plan of care. Objective - Vital Signs Vital signs: Vital Signs Temp 97.7 F 08/19/20 07:38 Pulse 83 08/19/20 07:38 Resp 18 08/19/20 07:38 BP 145/81 08/19/20 07:38 Pulse Ox 96 08/19/20 07:38 Intake & Output 08/18/20 08/19/20 08/19/20 18:59 06:59 18:59 Intake Total 100 900 Balance 100 900 Intake: IV 100 Intake, IV Titration 900 Amount Sodium Chloride 0.9% 1, 900 000 ml @ 75 mls/hr IV . [id number] [facility] Rx#:[id number] Other: Voiding Method Toilet Toilet # Voids 2 3 - Labs CBC & Chem 7: 08/19/20 04:53 08/17/20 16:56 Labs: Abnormal Lab Results - Last 24 Hours (Table) 08/18/20 08/18/20 08/18/20 Range/Units 11:49 16:20 20:11 RBC (4.10-5.20) X 10*6/uL Hct (37.2-46.3) % POC Glucose (mg/dL) 245 H 242 H 308 H (75-99) mg/dL 08/19/20 08/19/20 08/19/20 Range/Units 02:31 04:53 07:37 RBC 3.92 L (4.10-5.20) X 10*6/uL Hct 36.7 L (37.2-46.3) % POC Glucose (mg/dL) 223 H 191 H (75-99) mg/dL
[2020-08-19 10:14] LABS: Albumin 3.9 g/dL (3.80-4.90); Albumin/Globulin Ratio 2.29 (1.60-3.17); Anion Gap 9.1 mmol/L (4.00-12.00); BUN/Creat Ratio 18.89 Ratio (12.00-20.00); Calcium 8.4 mg/dL (8.7-10.3); Carbon Dioxide 21.9 mmol/L (21.6-31.8); Globulin 1.7 g/dL (1.6-3.3); Non-African American GFR(CKD) 72.5 (60.0-200.0); Potassium 3.9 mmol/L (3.5-5.5); Total Bilirubin 0.3 mg/dL (0.3-1.2); Total Protein 5.6 g/dL (6.2-8.2)
[2020-08-19 11:50] LABS: Glucose,Whole Blood 217 mg/dL (75-99)
--- NOTE | 2020-08-19 14:54 | P.GSCN ---
History of Present Illness Consult date: 08/19/20 Reason for Consult: right iliac blockage Requesting physician: Jerson Aguilar History of present illness: This is a 55-year-old female patient who presented to the ER with complaints of chest pain. Patient has had frequent admissions over the past month. Patient reports that the pain started suddenly last night and describes pain as sharp and constant with no relief after nitros. Patient has history of recent stent placement in June. Patient is been on Brilinta. Patient had recent GI bleed but was recently scoped and cleared to resume Brilinta. Additional medical history includes coronary artery disease with history of CABG in 2013, diabetes mellitus, hyperlipidemia, hypertension, nicotine dependence and bipolar. Chest x-ray completed showing no active cardiopulmonary disease. Normal heart. No change. Troponins negative 3. Patient was evaluated by cardiology services and underwent cardiac cath yesterday Dr. Murillo. He was unable to palpate her right femoral pulse therefore access the left groin. Findings included occluded LAD in the midportion with the ROBLES to LAD is 8. Occluded ramus intermedius which seems to be an in-stent occlusion. Occluded left circumflex which seems to be also an in-stent occlusion. Patent stent in the right coronary artery. Dr. Murillo also noted consideration of doing balloon angioplasty in the right external iliac artery because she has a critical lesion in the right external iliac artery and could not feel pulses in the right groin, therefore vascular surgery has been consult. This patient has a significant past history of smoking, and currently is still a smoker. Has a history of multiple sclerosis. Patient states that she has difficulty walking sometimes mostly related to her MS, however states that if she walks about 2-4 blocks she would start having cramping in bilateral extremities, left being greater than right. She also states she has had problems with peripheral vascular disease in the past. Past Medical History Past Medical History: Coronary Artery Disease (CAD), Chest Pain / Angina, COPD, CVA/TIA, Diabetes Mellitus, GI Bleed, Hyperlipidemia, Hypertension, Myocardial Infarction (SD), Musculoskeletal Disorder, Pneumonia, Thyroid Disorder Additional Past Medical History / Comment(s): MS,cva x4 last one 2016. Last Myocardial Infarction Date:: 2015 History of Any Multi-Drug Resistant Organisms: None Reported Past Surgical History: Appendectomy, Bladder Surgery, Cholecystectomy, Coronary Bypass/CABG, Heart Catheterization, Heart Catheterization With Stent, Hysterectomy Additional Past Surgical History / Comment(s): CABG in 2014, Mitral valve on 2017, Heart Stent x 30, bilateral leg stent Past Anesthesia/Blood Transfusion Reactions: No Reported Reaction Date of Last Stent Placement:: 06/25/20 Past Psychological History: Anxiety, Bipolar Smoking Status: Current every day smoker Past Alcohol Use History: None Reported Past Drug Use History: None Reported - Past Family History Father Family Medical History: Coronary Artery Disease (CAD) Additional Family Medical History / Comment(s): heart disease Medications and Allergies Home Medications Medication Instructions Recorded Confirmed Type ARIPiprazole [Abilify] 5 mg PO HS 05/21/20 08/17/20 History Atorvastatin [Lipitor] 80 mg PO DAILY 05/21/20 08/17/20 History Calcium Carbonate [Calcium] 600 mg PO DAILY 05/21/20 08/17/20 History Cyclobenzaprine [Flexeril] 10 mg PO TID 05/21/20 08/17/20 History Ferrous Sulfate [Iron (65 MG 325 mg PO BID 05/21/20 08/17/20 History Elemental)] Folic Acid 1 mg PO DAILY 05/21/20 08/17/20 History INSULIN ASPART (NovoLOG) [NovoLOG See Protocol SQ ACHS 05/21/20 08/17/20 History (formulary)] Isosorbide Mononitrate ER [Imdur] 30 mg PO DAILY 05/21/20 08/17/20 History Levothyroxine Sodium [Synthroid] 175 mcg PO DAILY 05/21/20 08/17/20 History Metoprolol Tartrate [Lopressor] 25 mg PO BID 05/21/20 08/17/20 History Mirtazapine [Remeron] 45 mg PO HS 05/21/20 08/17/20 History QUEtiapine [SEROquel] 50 mg PO HS 05/21/20 08/17/20 History Ranolazine [Ranexa] 1,000 mg PO BID 05/21/20 08/17/20 History Sertraline [Zoloft] 50 mg PO DAILY 05/21/20 08/17/20 History hydrOXYzine pamoate [Vistaril] 25 mg PO TID 05/21/20 08/17/20 History levETIRAcetam [Keppra] 500 mg PO BID 05/21/20 08/17/20 History Loperamide [Imodium] 2 mg PO QID PRN 06/08/20 08/17/20 History Nitroglycerin Sl Tabs [Nitrostat] 0.4 mg SUBLINGUAL Q5M PRN 90 Days 06/27/20 08/17/20 Rx #100 tab Ticagrelor [Brilinta] 90 mg PO BID tab 06/27/20 08/17/20 Rx Insulin Glargine,Hum.rec.anlog 30 unit SQ BID #0 07/14/20 08/17/20 Rx [Lantus Solostar] Pantoprazole [Protonix] 40 mg PO AC-BRKFST 30 Days #30 07/14/20 08/17/20 Rx tablet. Sodium Bicarbonate Tab 650 mg PO BID 30 Days #60 tab 07/14/20 08/17/20 Rx Lidocaine 5% Patch [Lidoderm 5% 1 - 2 patch TOPICAL DAILY@1300 PRN 07/20/20 08/17/20 History Patch] HYDROcodone/APAP 5-325MG [[place] 1 tab PO TID 3 Days #9 tab 08/01/20 08/17/20 Rx 5-325] Allergies Allergy/AdvReac Type Severity Reaction Status Date / Time gabapentin Allergy Anaphylaxis Verified 08/17/20 16:19 shellfish derived [Crab] Allergy Rash/Hives Verified 08/17/20 16:19 Surgical - Exam Vital Signs Temp Pulse Resp BP Pulse Ox 98.8 F 80 18 172/91 100 08/17/20 14:16 08/17/20 14:16 08/17/20 14:16 08/17/20 14:16 08/17/20 14:16 General appearance: The patient is alert, oriented, in no acute distress. HET: Head is normocephalic and atraumatic. Pupils are equal and reactive. Oropharynx is clear without lesions. Neck: Supple without lymphadenopathy. Trachea midline. Heart: S1 S2. Regular rate and rhythm. Lungs: No crackles or wheezes are heard. Abdomen: Soft, nontender, nondistended. Extremities: Normal skin color and turgor. Nonpalpable bilateral femoral pulses. Palpable right dorsalis pedis and posterior tibialis pulses with good capillary refill. Unable to palpate left dorsalis pedis or posterior tibialis pulse. Neurological: No focal deficits. Strength and sensation are grossly intact. Results - Labs 08/19/20 04:53 08/19/20 04:53 Abnormal Lab Results - Last 24 Hours (Table) 08/18/20 08/18/20 08/18/20 Range/Units 11:49 16:20 20:11 RBC (4.10-5.20) X 10*6/uL Hct (37.2-46.3) % POC Glucose (mg/dL) 245 H 242 H 308 H (75-99) mg/dL 08/19/20 08/19/20 08/19/20 Range/Units 02:31 04:53 07:37 RBC 3.92 L (4.10-5.20) X 10*6/uL Hct 36.7 L (37.2-46.3) % POC Glucose (mg/dL) 223 H 191 H (75-99) mg/dL Assessment and Plan Assessment: 1. Right external iliac artery lesion, blockage 2. Coronary artery disease 3. History of peripheral vascular disease 4. Nicotine dependence 5. Diabetes mellitus 6. Hypertension 7. Hyperlipidemia 8. Multiple sclerosis Plan: 1. Order CT angiogram with runoff 2. Arterial Doppler study 3. Continue medical management per cardiology and primary team 4. Further recommendations to follow The impression and plan of care has been dictated as directed. I performed a history and examination of this patient, discussed the same with the dictator. I agree with the dictator's note ,documented as a scribe. Any additional findings or plans will be noted.
[2020-08-19 15:02] LABS: Hemoglobin A1C 9.8 % (4.0-6.0)
--- NOTE | 2020-08-19 15:44 | CT ---
EXAMINATION TYPE: CT angio abd aorta w/Runoff DATE OF EXAM: 08/19/2020 HISTORY: bilateral leg pain and swelling CT DLP: 1950mGycm Automated Exposure Control for Dose Reduction was Utilized. CONTRAST: CTA scan of the abdomen and pelvis with lower extremity runoff is performed with IV Contrast, patient injected with 125cc mL of Isovue 370. 3-D reconstruction images are created on a independent worksta tion and reviewed. COMPARISON: CT abdomen and pelvis 2 weeks ago. FINDINGS: VASCULAR: Enlarged main pulmonary artery, CT findings consistent with underlying pulmonary artery hyp ertension. Satisfactory enhancement of visualized portion of the pulmonary arteries. Patent celiac ar akua and SMA without significant stenosis. Moderate mixed plaque at the origin of the renal arteries without significant stenosis. Moderate to severe mixed plaque in the infrarenal abdominal aorta. [place] nt AAMIR. Severe predominantly calcified plaque in the common iliac arteries bilaterally. Presence of calcified plaque makes accurate evaluation for significant stenosis suboptimal. Significant stenosis likely pr esent bilaterally with more suspicion in the right common iliac artery near coronal image 62 for refe rence. Severe plaque in the external iliac arteries bilaterally with additional significant stenosis in the right external iliac artery axial image 73. Significant stenosis to a lesser degree or lesser diameter narrowing distal left external iliac artery axial image 76. Moderate to severe plaque in the common femoral artery level bilaterally with additional stenosis nearing 50% on the right axial imag e 82. There is severe mixed a predominantly calcified plaque extending into the superficial femoral arterie s bilaterally with multifocal areas of significant stenosis along the superficial femoral arteries bi laterally. There is less prominent plaque in the proximal popliteal artery is and more significant mi xed plaque in the mid popliteal arteries with additional areas of significant stenosis in the left po pliteal artery felt present at several levels. There is significant stenosis in the distal left popli teal artery. For reference axial image 178. There is diminished three-vessel flow left leg versus abs ent right leg with reconstitution in the mid leg level. Distally there is diminished two-vessel flow in the right leg versus the opposite left leg with only visualized flowing anterior tibial artery. LUNG BASES: Coronary artery calcification and/or stents. Dependent atelectasis.. LIVER/GB: Cholecystectomy clips. PANCREAS: Mild to moderate generalized atrophy. SPLEEN: No significant abnormality is seen. ADRENALS: No significant abnormality is seen. KIDNEYS: Bladder poorly distended and thus suboptimally evaluated. Mild mucosal enhancement, correlat e to exclude acute cystitis. BOWEL: Suboptimal without enteric contrast. No suspicious dilatation. UTERUS/ADNEXA: Uterus surgically absent or markedly atrophic LYMPH NODES: Prominent but subcentimeter bilateral groin lymph nodes redemonstrated. Surgical scarrin g right groin level redemonstrated. OSSEOUS STRUCTURES: No significant abnormality is seen. LOWER EXTREMITIES: Symmetric moderate medial tibiofemoral compartment joint space loss in both knees. Uxmo-yh-dsgzesac axial joint space loss and spurring of both hips. OTHER: No significant additional abnormality is seen. IMPRESSION: This patient has severe atherosclerotic change with predominantly calcified plaque involv ing medial and small arterial vessels, multifocal significant stenosis beginning at common iliac maria isabel ry level bilaterally extending into external iliac, common femoral along with superficial femoral and popliteal arterial vessels and smaller vessels in the bilateral lower extremities as detailed above. Findings prominent for patient's chronologic age.
--- NOTE | 2020-08-19 16:56 | P.PN ---
Subjective Progress Note Date: 08/19/20 This is a 55-year-old female patient who presented to the ER with complaints of chest pain. Patient has had frequent admissions over the past month. Patient reports that the pain started suddenly last night and describes pain as sharp and constant with no relief after nitros. Patient has history of recent stent placement in June. Patient reports that she has been taking her Brilinta as scheduled. Patient had recent GI bleed but was recently scoped and cleared to resume Brilinta. Additional medical history includes coronary artery disease with history of CABG in 2013, diabetes mellitus, hyperlipidemia, hypertension, nicotine dependence and bipolar. Chest x-ray completed showing no active cardiopulmonary disease. Normal heart. No change. Troponins negative 3. Patient was evaluated by cardiology services and plan is to undergo heart catheterization today. Patient is difficult to obtain IV access. Per nursing staff IV access has been obtained. This time patient is complaining of mild chest pain. Patient denies shortness breath. Patient denies nausea vomiting or diarrhea. Patient denies any urinary burning or frequency Objective - Vital Signs Vital signs: Vital Signs Temp 97.7 F 08/19/20 07:38 Pulse 83 08/19/20 07:38 Resp 18 08/19/20 07:38 BP 145/81 08/19/20 07:38 Pulse Ox 96 08/19/20 07:38 Intake & Output 08/18/20 08/19/20 08/19/20 18:59 06:59 18:59 Intake Total 100 900 Balance 100 900 Intake: IV 100 Intake, IV Titration 900 Amount Sodium Chloride 0.9% 1, 900 000 ml @ 75 mls/hr IV . [id number] [facility] Rx#:[id number] Other: Voiding Method Toilet Toilet # Voids 2 3 - Exam In general patient is alert and oriented 3 in no distress Head normocephalic and atraumatic Neck supple no JVD no goiter no lymphadenopathy Lungs clear to auscultation bilaterally no wheezing or crackles Heart regular rate and rhythm S1-S2, no rub or gallop Abdomen is soft nontender nondistended positive bowel sounds no hepatosplenomegaly Extremities no edema no cyanosis or clubbing Neuro no gross focal neurological deficit - Labs CBC & Chem 7: 08/19/20 04:53 08/19/20 04:53 Labs: Abnormal Lab Results - Last 24 Hours (Table) 08/17/20 08/18/20 08/18/20 Range/Units 23:15 11:49 16:20 RBC (4.10-5.20) X 10*6/uL Hct (37.2-46.3) % POC Glucose (mg/dL) 245 H 242 H (75-99) mg/dL Triglycerides 217.0 H (0.0-149.0) mg/dL Cholesterol 227 H (0-200) mg/dL VLDL Cholesterol, Calc 43.40 H (5.00-40.00) mg/dL HDL Cholesterol 90.0 H (40.0-60.0) mg/dL 08/18/20 08/19/20 08/19/20 Range/Units 20:11 02:31 04:53 RBC 3.92 L (4.10-5.20) X 10*6/uL Hct 36.7 L (37.2-46.3) % POC Glucose (mg/dL) 308 H 223 H (75-99) mg/dL Triglycerides (0.0-149.0) mg/dL Cholesterol (0-200) mg/dL VLDL Cholesterol, Calc (5.00-40.00) mg/dL HDL Cholesterol (40.0-60.0) mg/dL 08/19/20 Range/Units 07:37 RBC (4.10-5.20) X 10*6/uL Hct (37.2-46.3) % POC Glucose (mg/dL) 191 H (75-99) mg/dL Triglycerides (0.0-149.0) mg/dL Cholesterol (0-200) mg/dL VLDL Cholesterol, Calc (5.00-40.00) mg/dL HDL Cholesterol (40.0-60.0) mg/dL Assessment and Plan Assessment: 1. Chest pain. Troponins negative 3. Chest x-ray negative. Patient was evaluated by cardiology services. Patient to undergo cardiac catheterization today 2. Recent admission for rectal bleeding. Patient underwent EGD and colonoscopy and was cleared to resume blood thinner 3. Underlying history of coronary artery disease with recent angioplasty and stent placement June 2020. Patient has been maintained on Brilinta and aspirin and does reports she has sensitivities meds as ordered 4. Essential hypertension 5. Diabetes mellitus type 2 6. Hyperlipidemia. Maintained on statin 7. Nicotine dependence. Nicotine patch will be ordered. Patient educated greater than 3 minutes as was statin 8. Bipolar disorder 9. History of seizure disorder. Maintained on Keppra 10. Hypothyroidism. Maintained on Synthroid Plan: 1. Chest pain. Troponins negative 3. Chest x-ray negative. Patient was evaluated by cardiology services. Patient to undergo cardiac catheterization today 2. Recent admission for rectal bleeding. Patient underwent EGD and colonoscopy and was cleared to resume blood thinner 3. Underlying history of coronary artery disease with recent angioplasty and stent placement June 2020. Patient has been maintained on Brilinta and aspirin and does reports she has sensitivities meds as ordered 4. Essential hypertension 5. Diabetes mellitus type 2 6. Hyperlipidemia. Maintained on statin 7. Nicotine dependence. Nicotine patch will be ordered. Patient educated greater than 3 minutes as was statin 8. Bipolar disorder 9. History of seizure disorder. Maintained on Keppra 10. Hypothyroidism. Maintained on Synthroid At this time patient is scheduled for cardiac catheterization today Will follow results
[2020-08-19 17:37] LABS: Glucose,Whole Blood 292 mg/dL (75-99)
[2020-08-19] MEDS: ARIPiprazole 5 MG TAB PO SCH (21:17)
[2020-08-19] MEDS: QUEtiapine 50 MG TAB PO SCH (21:17)
[2020-08-19] MEDS: MIRTAZAPINE 45 MG TABLET PO SCH (21:18)
[2020-08-19 21:26] LABS: Glucose,Whole Blood 197 mg/dL (75-99)
[2020-08-19] MEDS: LOPERAMIDE 2 MG CAP PO PRN (21:28)
[2020-08-20 02:38] LABS: Glucose,Whole Blood 223 mg/dL (75-99)
[2020-08-20] MEDS: LEVOTHYROXINE 75 MCG TAB PO SCH (05:31)
[2020-08-20] MEDS: LEVOTHYROXINE 100 MCG TAB PO SCH (05:31)
[2020-08-20 07:33] LABS: Glucose,Whole Blood 241 mg/dL (75-99)
[2020-08-20 08:10] VITALS: BP 123/73; PULSE 89; RESP 18; TEMP 98.1
[2020-08-20] MEDS: PANTOPRAZOLE 40 MG TABLET PO SCH (08:10)
[2020-08-20] MEDS: INSULIN ASPART (NovoLOG) 100 UNIT/ML VIAL SQ SCH ×2 (08:10→12:20)
[2020-08-20] MEDS: CYCLOBENZAPRINE 10 MG TAB PO SCH (08:49)
[2020-08-20] MEDS: CALCIUM CARBONATE 500 MG CHEWABLE PO SCH (08:49)
[2020-08-20] MEDS: hydrOXYzine pamoate 25 MG CAP PO SCH (08:49)
[2020-08-20] MEDS: METOPROLOL TARTRATE 25 MG TAB PO SCH (08:50)
[2020-08-20] MEDS: ASPIRIN 81 MG PO SCH (08:50)
[2020-08-20] MEDS: FERROUS SULFATE 325 MG TAB PO SCH (08:50)
[2020-08-20] MEDS: RANOLAZINE 500 MG TAB.ER.12H PO SCH (08:50)
[2020-08-20] MEDS: levETIRAcetam 500 MG TAB PO SCH (08:50)
[2020-08-20] MEDS: FOLIC ACID 1 MG TAB PO SCH (08:50)
[2020-08-20] MEDS: ATORVASTATIN 80 MG TAB PO SCH (08:50)
[2020-08-20] MEDS: TICAGRELOR 90 MG TAB PO SCH (08:50)
[2020-08-20] MEDS: HYDROcodone/APAP 5-325MG 1 EACH TAB PO SCH (08:50)
[2020-08-20] MEDS: ISOSORBIDE MONONITRATE ER 60 MG TAB.ER.24H PO SCH (08:50)
[2020-08-20] MEDS: SODIUM BICARBONATE TAB 650 MG TAB PO SCH (08:50)
[2020-08-20] MEDS: SERTRALINE 50 MG TAB PO SCH (08:50)
[2020-08-20] MEDS: NICOTINE 14MG/24HR PATCH TRANSDERM SCH (08:51)
--- NOTE | 2020-08-20 11:52 | P.PN ---
Subjective Progress Note Date: 08/20/20 Principal diagnosis: CAD, Right iliac artery stenosis She was seen and examined lying in bed. She states she had no acute changes through the night. Denies any shortness of breath or chest pain at this time. States she still continues to have bilateral lower extremity discomfort however this is chronic. She underwent a CT of the abdomen with runoff yesterday findings that included severe arthrosclerotic change with predominantly calcified plaque involving medial and small artery vessels, multifocal significant stenosis beginning at common iliac artery level bilaterally extending into external iliac, common femoral along with superficial femoral and popliteal artery vessels and smaller vessels in the bilateral lower extremities as detailed above. Findings prominent for patient's chronic logical age. Patient also underwent lower extremity arterial Dopplers which showed MIKE on the right 0.74 left 0.71 with decreased waveforms. Patient continues with Alimta and aspirin. Objective - Vital Signs Vital signs: Vital Signs Temp 98.1 F 08/20/20 08:00 Pulse 89 08/20/20 08:00 Resp 18 08/20/20 08:00 BP 123/73 08/20/20 08:00 Pulse Ox 96 08/20/20 08:00 Intake & Output 08/19/20 08/20/20 08/20/20 18:59 06:59 18:59 Intake Total 400 Balance 400 Intake: Oral 400 Other: Voiding Method Toilet # Voids 4 3 # Bowel Movements 1 - Exam General appearance: The patient is alert, oriented, appears in no acute distress. HET: Head is normocephalic and atraumatic. Pupils are equal and reactive. Neck: Supple without lymphadenopathy. Trachea midline. Heart: S1 S2. Regular rate and rhythm. Lungs: No crackles or wheezes are heard. Abdomen: Soft, nontender, nondistended. Extremities: Left lower extremity with some mild edema, lateral lower extremities warm to touch with good capillary refill. Bilateral femoral, posterior tibialis, and dorsalis pedis Doppler signal. Neurological: No focal deficits. Strength and sensation are grossly intact. - Labs CBC & Chem 7: 08/19/20 04:53 08/19/20 04:53 Labs: Abnormal Lab Results - Last 24 Hours (Table) 08/19/20 08/19/20 08/19/20 Range/Units 04:53 11:47 17:36 POC Glucose (mg/dL) 217 H 292 H (75-99) mg/dL Hemoglobin A1c 9.8 H (4.0-6.0) % 08/19/20 08/20/20 08/20/20 Range/Units 21:24 02:36 07:30 POC Glucose (mg/dL) 197 H 223 H 241 H (75-99) mg/dL Hemoglobin A1c (4.0-6.0) % Assessment and Plan Assessment: 1. Right external iliac artery lesion, blockage 2. Coronary artery disease 3. History of peripheral vascular disease 4. Nicotine dependence 5. Diabetes mellitus 6. Hypertension 7. Hyperlipidemia 8. Multiple sclerosis Plan: 1. CT angiogram reviewed by Dr. Beasley, appears to be all chronic 2. Arterial Doppler study ordered and reviewed by Dr. Beasley 3. Continue medical management per cardiology and primary team 4. There are no acute findings for vascular surgical intervention at this time. Continue medical management. Patient is advised to have follow-up as an outpatient with further recommendations to follow. 5. Apply compression stockings to bilateral lower extremities Patient may be discharged home a vascular surgical standpoint once medically and cardiac cleared. The above dictated assessment and findings were discussed with Dr. Beasley. The impression and plan of care have been directed as dictated.
[2020-08-20 11:59] LABS: Glucose,Whole Blood 420 mg/dL (75-99)
--- NOTE | 2020-08-20 12:29 | P.PN ---
Subjective Progress Note Date: 08/20/20 CHIEF COMPLAINT: Chest pain HISTORY OF PRESENT ILLNESS: 08/18/2020 This is a 55-year-old female with a past medical history significant for coronary artery disease with previous PCI and CABG, mitral valve replacement nicotine dependence, hypertension, hyperlipidemia, and CVA. Patient follows with Dr. Salcedo in [place]. We have been asked to see the patient in consultation for chest pain. Patient underwent cardiac cath in June [address] Murillo with PCI to the PDA branch of the right coronary artery. Patient has been evaluated for chest pain since her stent was placed in June. She underwent dobutamine stress test in July 2020 which was inconclusive secondary to inability to obtain target heart rate. Patient states she has not followed up with a tubular splitting machine tender since having her stent placed in June. Patient is somewhat of a poor historian. She reports having chest pain yesterday that started near her left breast and radiated around to her back. She denied any shortness of breath. She denied any nausea or vomiting. Patient states the pain is not worse with inspiration or movement. She states she was given Toradol in the emergency room which did not help the pain. She continues to complain of left- sided chest discomfort this morning. Echocardiogram completed in May 2020 reveal ejection fraction 55-60%, normally functioning bioprosthetic mitral valve, mild tricuspid regurgitation. 08/19/2020 Patient underwent cardiac cath yesterday with Dr. Murillo revealing occluded LAD in the midportion. ROBLES to LAD is patent. Occluded ramus intermedius which seems to be an in-stent occlusion. Occluded left circumflex which seems to be an in- stent occlusion. Patent stent in the right coronary artery. Patient examined this morning at the bedside. She denies chest pain or pressure. She denies shortness of breath. Vital signs are stable. Heart rate in the 80s. She is on room air with oxygen saturations greater than 92%. She is afebrile. 08/20/2020 Patient examined this morning at the bedside. Patient denies chest pain or pressure. Denies shortness of breath. Patient has been evaluated by vascular surgery. CT angiogram findings appear to be chronic. Vital signs remain stable. Patient hoping to be discharged home today. PHYSICAL EXAM: VITAL SIGNS: Reviewed. GENERAL: Well-developed in no acute distress. HEENT: Head is normocephalic. Pupils are equal, round. Sclerae anicteric. Mucous membranes of the mouth are moist. Neck supple. No JVD or thyromegaly LUNGS: Respirations even and unlabored. Lungs essentially clear to auscultation bilaterally. HEART: Regular rate and rhythm. S1 and S2 heard. Systolic murmur noted ABDOMEN: Soft. Nondistended. Nontender. EXTREMITIES: Normal range of motion. No clubbing or cyanosis. Peripheral pulses intact. No lower extremity edema. Left groin soft with no hematoma noted. NEUROLOGIC: Awake and alert. Oriented x 3. ASSESSMENT: Chest pain Coronary artery disease with recent PCI to PDA branch of RCA, June 2020 History of coronary artery bypass grafting Valvular heart disease, status post bioprosthetic mitral valve replacement Hypertension Hyperlipidemia Diabetes mellitus, type II Peripheral vascular disease Nicotine dependence PLAN: Continue current cardiac medications Patient may be discharged home today from a cardiac standpoint and follow-up with her tubular splitting machine tender in [place], Dr. Salcedo Nurse practitioner note has been reviewed by physician. Signing provider agrees with the documented findings, assessment, and plan of care. Objective - Vital Signs Vital signs: Vital Signs Temp 98.1 F 08/20/20 08:00 Pulse 89 08/20/20 08:00 Resp 18 08/20/20 08:00 BP 123/73 08/20/20 08:00 Pulse Ox 96 08/20/20 08:00 Intake & Output 08/19/20 08/20/20 08/20/20 18:59 06:59 18:59 Intake Total 400 Balance 400 Intake: Oral 400 Other: Voiding Method Toilet # Voids 4 3 # Bowel Movements 1 - Labs CBC & Chem 7: 08/19/20 04:53 08/19/20 04:53 Labs: Abnormal Lab Results - Last 24 Hours (Table) 08/19/20 08/19/20 08/19/20 Range/Units 04:53 17:36 21:24 POC Glucose (mg/dL) 292 H 197 H (75-99) mg/dL Hemoglobin A1c 9.8 H (4.0-6.0) % 08/20/20 08/20/20 08/20/20 Range/Units 02:36 07:30 11:58 POC Glucose (mg/dL) 223 H 241 H 420 H (75-99) mg/dL Hemoglobin A1c (4.0-6.0) %
--- NOTE | 2020-08-20 12:55 | P.DS ---
Providers Date of admission: 08/20/20 08:06 Expected date of discharge: 08/20/20 Attending physician: Jerson Aguilar Consults: 08/17/20 18:41 Consult Physician Urgent Consulting Provider: [facility] Consult Reason/Comments: Chest pain Do you want consulting provider notified?: Yes 08/19/20 09:33 Consult Physician Routine Consulting Provider: Gutierrez Beasley Consult Reason/Comments: CAD, R iliac artery stenosis Do you want consulting provider notified?: Yes Primary care physician: [facility] Course: Diagnosis on discharge: 1. Chest pain. Troponins negative 3. Chest x-ray negative. Patient was evaluated by cardiology services. Patient to undergo cardiac catheterization today 2. Recent admission for rectal bleeding. Patient underwent EGD and colonoscopy and was cleared to resume blood thinner 3. Underlying history of coronary artery disease with recent angioplasty and stent placement June 2020. Patient has been maintained on Brilinta and aspirin and does reports she has sensitivities meds as ordered 4. Essential hypertension 5. Diabetes mellitus type 2 6. Hyperlipidemia. Maintained on statin 7. Nicotine dependence. Nicotine patch will be ordered. Patient educated greater than 3 minutes as was statin 8. Bipolar disorder 9. History of seizure disorder. Maintained on Keppra 10. Hypothyroidism. Maintained on Synthroid Hospital course: This is a 55-year-old female patient who presented to the ER with complaints of chest pain. Patient has had frequent admissions over the past month. Patient reports that the pain started suddenly last night and describes pain as sharp and constant with no relief after nitros. Patient has history of recent stent placement in June. Patient reports that she has been taking her Brilinta as scheduled. Patient had recent GI bleed but was recently scoped and cleared to resume Brilinta. Additional medical history includes coronary artery disease with history of CABG in 2013, diabetes mellitus, hyperlipidemia, hypertension, nicotine dependence and bipolar. Chest x-ray completed showing no active c ardiopulmonary disease. Normal heart. No change. Troponins negative 3. Patient was evaluated by cardiology services and plan is to undergo heart catheterization today. Patient is difficult to obtain IV access. Per nursing staff IV access has been obtained. This time patient is complaining of mild chest pain. Patient denies shortness breath. Patient denies nausea vomiting or diarrhea. Patient denies any urinary burning or frequency On 08/20/2020 patient was seen and examined on the telemetry floor she is alert and oriented 3 in no apparent distress no new episodes of chest pain patient is denying any symptoms at this time there is no fever or chills no headache or dizziness no chest pain no shortness of breath no cough no nausea or vomiting no abdominal pain no diarrhea no blood in the stools no burning with urination no frequency or urgency and no hematuria was evaluated by cardiology and by vascular surgery and was cleared for discharge will follow in the office within 1 week. She was counseled in length in regard to smoking cessation counseling more than 5 minutes today she was given a prescription for nicotine patches at the time of discharge. Plan - Discharge Summary New Discharge Prescriptions: New Aspirin 81 mg PO DAILY chew Nicotine 14Mg/24Hr Patch [Habitrol] 1 patch TRANSDERM DAILY patch lisinopriL [Zestril] 2.5 mg PO DAILY tab Continue Folic Acid 1 mg PO DAILY Sertraline [Zoloft] 50 mg PO DAILY Ferrous Sulfate [Iron (65 MG Elemental)] 325 mg PO BID Calcium Carbonate [Calcium] 600 mg PO DAILY Ranolazine [Ranexa] 1,000 mg PO BID QUEtiapine [SEROquel] 50 mg PO HS Mirtazapine [Remeron] 45 mg PO HS INSULIN ASPART (NovoLOG) [NovoLOG (formulary)] See Protocol SQ ACHS Metoprolol Tartrate [Lopressor] 25 mg PO BID Levothyroxine Sodium [Synthroid] 175 mcg PO DAILY levETIRAcetam [Keppra] 500 mg PO BID hydrOXYzine pamoate [Vistaril] 25 mg PO TID Isosorbide Mononitrate ER [Imdur] 30 mg PO DAILY Cyclobenzaprine [Flexeril] 10 mg PO TID Atorvastatin [Lipitor] 80 mg PO DAILY ARIPiprazole [Abilify] 5 mg PO HS Loperamide [Imodium] 2 mg PO QID PRN PRN Reason: Diarrhea Ticagrelor [Brilinta] 90 mg PO BID tab Nitroglycerin Sl Tabs [Nitrostat] 0.4 mg SUBLINGUAL Q5M PRN 90 Days #100 tab PRN Reason: Chest Pain Pantoprazole [Protonix] 40 mg PO AC-BRKFST 30 Days #30 tablet. Sodium Bicarbonate Tab 650 mg PO BID 30 Days #60 tab Insulin Glargine,Hum.rec.anlog [Lantus Solostar] 30 unit SQ BID #0 Lidocaine 5% Patch [Lidoderm 5% Patch] 1 - 2 patch TOPICAL DAILY@1300 PRN PRN Reason: lower back pain HYDROcodone/APAP 5-325MG [[place] 5-325] 1 tab PO TID 3 Days #9 tab Discharge Medication List ARIPiprazole [Abilify] 5 mg PO HS 05/21/20 [History] Atorvastatin [Lipitor] 80 mg PO DAILY 05/21/20 [History] Calcium Carbonate [Calcium] 600 mg PO DAILY 05/21/20 [History] Cyclobenzaprine [Flexeril] 10 mg PO TID 05/21/20 [History] Ferrous Sulfate [Iron (65 MG Elemental)] 325 mg PO BID 05/21/20 [History] Folic Acid 1 mg PO DAILY 05/21/20 [History] INSULIN ASPART (NovoLOG) [NovoLOG (formulary)] See Protocol SQ ACHS 05/21/20 [History] Isosorbide Mononitrate ER [Imdur] 30 mg PO DAILY 05/21/20 [History] Levothyroxine Sodium [Synthroid] 175 mcg PO DAILY 05/21/20 [History] Metoprolol Tartrate [Lopressor] 25 mg PO BID 05/21/20 [History] Mirtazapine [Remeron] 45 mg PO HS 05/21/20 [History] QUEtiapine [SEROquel] 50 mg PO HS 05/21/20 [History] Ranolazine [Ranexa] 1,000 mg PO BID 05/21/20 [History] Sertraline [Zoloft] 50 mg PO DAILY 05/21/20 [History] hydrOXYzine pamoate [Vistaril] 25 mg PO TID 05/21/20 [History] levETIRAcetam [Keppra] 500 mg PO BID 05/21/20 [History] Loperamide [Imodium] 2 mg PO QID PRN 06/08/20 [History] Nitroglycerin Sl Tabs [Nitrostat] 0.4 mg SUBLINGUAL Q5M PRN 90 Days #100 tab 06/27/20 [Rx] Ticagrelor [Brilinta] 90 mg PO BID tab 06/27/20 [Rx] Insulin Glargine,Hum.rec.anlog [Lantus Solostar] 30 unit SQ BID #0 07/14/20 [Rx] Pantoprazole [Protonix] 40 mg PO AC-BRKFST 30 Days #30 tablet. 07/14/20 [Rx] Sodium Bicarbonate Tab 650 mg PO BID 30 Days #60 tab 07/14/20 [Rx] Lidocaine 5% Patch [Lidoderm 5% Patch] 1 - 2 patch TOPICAL DAILY@1300 PRN 07/20/20 [History] HYDROcodone/APAP 5-325MG [[place] 5-325] 1 tab PO TID 3 Days #9 tab 08/01/20 [Rx] Aspirin 81 mg PO DAILY chew 08/20/20 [Rx] Nicotine 14Mg/24Hr Patch [Habitrol] 1 patch TRANSDERM DAILY patch 08/20/20 [Rx] lisinopriL [Zestril] 2.5 mg PO DAILY tab 08/20/20 [Rx] Follow up Appointment(s)/Referral(s): Kriss Salcedo MD [REFERRING] - 1 Week Fer Ballard DO [Doctor of Osteopathic Medicine] - 2 Weeks (please call to schedule appt office was closed ) Jerson Aguilar MD [Primary Care Provider] - 1-2 days (Office closed . Patient needs to make own appointment ) Patient Instructions/Handouts: Chest Pain (DC)
[2020-08-20 14:53] VITALS: BMI 30.5
== END 2020-08-20 14:20 | disposition home or self-care (01) | DRG 287 ==
LOC: EC 14:06 → 6NMEDSUR 18:42 → OBSVTOIN 08-20 08:06
PROVIDERS: ADMIT Internal Medicine; ATTEND Internal Medicine
PROC: 05HB33Z Insertion of Infusion Device into Right Basilic Vein, Percutaneous Approach (ICD-10-PCS; 2020-08-18)
PROC: 4A023N7 Measurement of Cardiac Sampling and Pressure, Left Heart, Percutaneous Approach (ICD-10-PCS; principal; 2020-08-18 08:35)
PROC: B2111ZZ Fluoroscopy of Multiple Coronary Arteries using Low Osmolar Contrast (ICD-10-PCS; 2020-08-18 08:35)
DX: I25.110 Atherosclerotic heart disease of native coronary artery with unstable angina pectoris (principal); T82.855A Stenosis of coronary artery stent, initial encounter; I25.810 Atherosclerosis of coronary artery bypass graft(s) without angina pectoris; E11.51 Type 2 diabetes mellitus with diabetic peripheral angiopathy without gangrene; F31.9 Bipolar disorder, unspecified; J44.9 Chronic obstructive pulmonary disease, unspecified; G40.909 Epilepsy, unspecified, not intractable, without status epilepticus; G35 Multiple sclerosis; Z79.4 Long term (current) use of insulin; Z20.822 Contact with and (suspected) exposure to COVID-19; E78.5 Hyperlipidemia, unspecified; I10 Essential (primary) hypertension; F41.9 Anxiety disorder, unspecified; F17.200 Nicotine dependence, unspecified, uncomplicated; E03.9 Hypothyroidism, unspecified; I07.1 Rheumatic tricuspid insufficiency; I70.8 Atherosclerosis of other arteries; Y71.8 Miscellaneous cardiovascular devices associated with adverse incidents, not elsewhere classified; I25.2 Old myocardial infarction; Z71.6 Tobacco abuse counseling; Z71.3 Dietary counseling and surveillance; Z79.899 Other long term (current) drug therapy; Z79.890 Hormone replacement therapy; Z79.02 Long term (current) use of antithrombotics/antiplatelets; Z95.1 Presence of aortocoronary bypass graft; Z95.5 Presence of coronary angioplasty implant and graft; Z86.73 Personal history of transient ischemic attack (TIA), and cerebral infarction without residual deficits; Z87.01 Personal history of pneumonia (recurrent); Z87.19 Personal history of other diseases of the digestive system; Z90.49 Acquired absence of other specified parts of digestive tract; Z98.890 Other specified postprocedural states; Z90.710 Acquired absence of both cervix and uterus; Z95.3 Presence of xenogenic heart valve; Z88.8 Allergy status to other drugs, medicaments and biological substances; Z91.013 Allergy to seafood; Z82.49 Family history of ischemic heart disease and other diseases of the circulatory system
CPT/HCPCS: 36410; 36415; 71046; 75635; 76937; 80053; 80061; 83036; 83735; 84484; 85025; 87635; 93005; 93455; 93923; 96372; 99285

== ENCOUNTER 2020-08-27 18:55 | Inpatient (IN) | payer MEDICARE, OTHER ==
[2020-08-27] MEDS ORDERED: NITROGLYCERIN SL TABS 0.4 MG TAB SUBLINGUAL STA (19:11)
--- NOTE | 2020-08-27 20:10 | XR ---
EXAMINATION TYPE: XR chest 2V DATE OF EXAM: 08/27/2020 COMPARISON: 08/17/2020 HISTORY: Chest pain. TECHNIQUE: Frontal and lateral views of the chest are obtained. FINDINGS: There is no focal air space opacity, pleural effusion, or pneumothorax seen. The cardiac silhouette size is within normal limits. Stable prior cardiothoracic postsurgical changes. The osseo us structures are intact. IMPRESSION: No acute cardiopulmonary process.
[2020-08-27] MEDS ORDERED: MORPHINE SULFATE 4 MG/ML SYRINGE IVP STA (20:32)
[2020-08-27 20:39] LABS: Basophils % (A) 1 %; Eosinophils # (A) 0.1 k/uL (0-0.7); Eosinophils % (A) 1 %; HCT 38.9 % (34.0-46.0); HGB 13.1 gm/dL (11.4-16.0); Lymphocytes # (A) 1.2 k/uL (1.0-4.8); Lymphocytes % (A) 22 %; MCH 31.3 pg (25.0-35.0); MCHC 33.5 g/dL (31.0-37.0); MCV 93.4 fL (80.0-100.0); Mean Platelet Volume 7.2; Monocytes # (A) 0.3 k/uL (0-1.0); Monocytes % (A) 5 %; Neutrophils # (A) 3.8 k/uL (1.3-7.7); Neutrophils % (A) 69 %; Platelet Count 244 k/uL (150-450); RBC 4.16 m/uL (3.80-5.40); RDW 13.5 % (11.5-15.5); WBC 5.4 k/uL (3.8-10.6)
--- NOTE | 2020-08-27 20:42 | ED ---
Chest Pain HPI - General Chief Complaint: Chest Pain Stated Complaint: Chest Pain Time Seen by Provider: 08/27/20 19:06 Source: patient Mode of arrival: ambulatory Limitations: no limitations - History of Present Illness Initial Comments: 35-year-old female with extensive past medical history including extensive vascular history including coronary artery disease, coronary artery bypass, femoral popliteal bypass due to chronic PAD, DM, HTN presenting for chest pain and vaginal bleeding. Patietn states that today she noticed blood on the toilet paper after urinating. pt states she is FOR SURE its is not her rectum and it was faint pink/red. She denies heavy vaginal bleeding. She states she does not believe it is coming from the "pee hole" pateint denies flank or back pain, denies abdominal pain. Patient states that she also had some chest pain this morning which she states is not uncommon and isnt really what brought her to the ER, she states "I only came because of the blood from my vagina". Pt denies dyspnea, arm pain/paresthesias, nausea, vomiting. Patient denies shoulder pain. Pateint denies history of kidney stones. Patient states that chest discmfort was sharp, began around 8AM, was sharp in nature left sided, coming and going. States it is currently present. Denies pain with a deep breath, denies hx of DVT/PE, denies leg swelling, calf pain or LE edema, denies hemoptysis or upper back pain> Denies ripping tearing sensation. Patient has no additional complaints. Upon arrival patient appears well nontoxic no distress. pt took 6, 81mg as well as "multiple nitroglycerin tablets in the morning". - Related Data Home Medications Medication Instructions Recorded Confirmed ARIPiprazole [Abilify] 5 mg PO HS 05/21/20 08/27/20 Atorvastatin [Lipitor] 80 mg PO DAILY 05/21/20 08/27/20 Calcium Carbonate [Calcium] 600 mg PO DAILY 05/21/20 08/27/20 Cyclobenzaprine [Flexeril] 10 mg PO TID PRN 05/21/20 08/27/20 Ferrous Sulfate [Iron (65 MG 325 mg PO BID 05/21/20 08/27/20 Elemental)] Folic Acid 1 mg PO DAILY 05/21/20 08/27/20 INSULIN ASPART (NovoLOG) [NovoLOG See Protocol SQ ACHS 05/21/20 08/27/20 (formulary)] Isosorbide Mononitrate ER [Imdur] 30 mg PO DAILY 05/21/20 08/27/20 Levothyroxine Sodium [Synthroid] 175 mcg PO DAILY 05/21/20 08/27/20 Metoprolol Tartrate [Lopressor] 25 mg PO BID 05/21/20 08/27/20 Mirtazapine [Remeron] 45 mg PO HS 05/21/20 08/27/20 QUEtiapine [SEROquel] 50 mg PO HS 05/21/20 08/27/20 Ranolazine [Ranexa] 1,000 mg PO BID 05/21/20 08/27/20 Sertraline [Zoloft] 50 mg PO DAILY 05/21/20 08/27/20 hydrOXYzine pamoate [Vistaril] 25 mg PO TID PRN 05/21/20 08/27/20 levETIRAcetam [Keppra] 500 mg PO BID 05/21/20 08/27/20 Loperamide [Imodium] 2 mg PO QID PRN 06/08/20 08/27/20 Lidocaine 5% Patch [Lidoderm 5% 1 - 2 patch TOPICAL DAILY@1300 PRN 07/20/20 08/27/20 Patch] HYDROcodone/APAP 5-325MG [[place] 1 tab PO TID PRN 08/27/20 08/27/20 5-325] Previous Rx's Medication Instructions Recorded Nitroglycerin Sl Tabs [Nitrostat] 0.4 mg SUBLINGUAL Q5M PRN 90 Days 06/27/20 #100 tab Ticagrelor [Brilinta] 90 mg PO BID tab 06/27/20 Insulin Glargine,Hum.rec.anlog 30 unit SQ BID #0 07/14/20 [Lantus Solostar] Pantoprazole [Protonix] 40 mg PO AC-BRKFST 30 Days #30 07/14/20 tablet. Sodium Bicarbonate Tab 650 mg PO BID 30 Days #60 tab 07/14/20 Aspirin 81 mg PO DAILY chew 08/20/20 lisinopriL [Zestril] 2.5 mg PO DAILY tab 08/20/20 Allergies Allergy/AdvReac Type Severity Reaction Status Date / Time gabapentin Allergy Anaphylaxis Verified 08/27/20 21:35 shellfish derived [Crab] Allergy Rash/Hives Verified 08/27/20 21:35 Review of Systems ROS Statement: Those systems with pertinent positive or pertinent negative responses have been documented in the HPI. ROS Other: All systems not noted in ROS Statement are negative. Past Medical History Past Medical History: Coronary Artery Disease (CAD), Chest Pain / Angina, COPD, CVA/TIA, Diabetes Mellitus, GI Bleed, Hyperlipidemia, Hypertension, Myocardial Infarction ([place]), Musculoskeletal Disorder, Pneumonia, Thyroid Disorder Additional Past Medical History / Comment(s): MS,cva x4 last one 2016. Last Myocardial Infarction Date:: 2015 History of Any Multi-Drug Resistant Organisms: None Reported Past Surgical History: Appendectomy, Bladder Surgery, Cholecystectomy, Coronary Bypass/CABG, Heart Catheterization, Heart Catheterization With Stent, Hysterectomy Additional Past Surgical History / Comment(s): CABG in 2013, Mitral valve on 2016, Heart Stent x 30, bilateral leg stent Past Anesthesia/Blood Transfusion Reactions: No Reported Reaction Date of Last Stent Placement:: 06/25/20 Past Psychological History: Anxiety, Bipolar Smoking Status: Current every day smoker Past Alcohol Use History: None Reported Past Drug Use History: None Reported - Past Family History Father Family Medical History: Coronary Artery Disease (CAD) Additional Family Medical History / Comment(s): heart disease General Exam - General Exam Comments Initial Comments: General: The patient is awake and alert, in no distress Eye: +3 mm pupils are equal, round and reactive to light, extra-ocular movements are intact. No nystagmus. There is normal conjunctiva bilaterally. No signs of icterus. Ears, nose, mouth and throat: There are moist mucous membranes and no oral lesions. Neck: The neck is supple, there is no tenderness or JVD. Cardiovascular: There is a regular rate and rhythm. No murmur, rub or gallop is appreciated. Respiratory: Lungs are clear to auscultation, respirations are non-labored, breath sounds are equal. No wheezes, stridor, rales, or rhonchi. Gastrointestinal: Soft, non-distended, mild LLQ Pain to palpation of the abdomen, abdomen without masses or organomegaly noted. There is no rebound or guarding present. No CVA tenderness. : excoriation of the external vagina, no vaginal bleeding or rectal bleeding identified. Musculoskeletal: Normal ROM, no tenderness. Strength 5/5. Sensation intact. Radial pulses equal bilaterally 2+. There is diminished b/l DP pulses, strong on doppler (biphasic). Left leg slightly cooler than right. Neurological: A&O x 3. CN II-XII intact grossly, There are no obvious motor or sensory deficits. Coordination appears grossly intact. Speech is normal. Skin: Skin is warm and dry and no rashes or lesions are noted. No calf pain, no LE edema. Psychiatric: Cooperative, appropriate mood & affect, normal judgment. Limitations: no limitations Course Vital Signs 08/27/20 08/27/20 08/27/20 18:57 20:34 20:48 Temperature 100.6 F H 99.9 F H Pulse Rate 94 86 Respiratory 22 18 Rate Blood Pressure 166/81 O2 Sat by Pulse 98 100 Oximetry 08/27/20 22:09 Temperature 99.1 F Pulse Rate 83 Respiratory 18 Rate Blood Pressure 144/76 O2 Sat by Pulse 99 Oximetry Chest Pain MDM - MDM pt main cc vaginal bleeding. no findings on exam aside from external vaginal excoriation. no rectal bleeding identified. UA no hematuria however there are findings of infection. glucose elevated, gap (-). acetone (-). Patient has no ketones in urine. given IV and SQ insulin/IVfluids. patient CXR clear. troponin (-). EKG No acute changes. patient has chronic chest pain.patient will be admitted for serial troponins and further evaluation. Dr Holley agreeable to this care plan. Disposition Clinical Impression: UTI (urinary tract infection), Chest pain, Vaginal bleeding Disposition: ADMITTED IP TO THIS HOSP Condition: Stable Is patient prescribed a controlled substance at d/c from ED?: No Referrals: Jerson Aguilar MD [Primary Care Provider] - 1-2 days Time of Disposition: 22:18 Decision to Admit Reason: Admit from EC Decision Date: 08/27/20 Decision Time: 22:18
[2020-08-27 20:50] LABS: ALT 18 U/L (4-34); AST 21 U/L (14-36); African American GFR (CKD) 88 (>60 ml/min/1.73 sqM); Albumin 4.2 g/dL (3.5-5.0); Alkaline Phosphatase 116 U/L (38-126); Anion Gap 10 mmol/L; Blood Urea Nitrogen 15 mg/dL (7-17); Calcium 9.4 mg/dL (8.4-10.2); Carbon Dioxide 23 mmol/L (22-30); Chloride 101 mmol/L (98-107); Glucose 487 mg/dL (74-99); Lipase 28 U/L (23-300); Magnesium 1.9 mg/dL (1.6-2.3); Non-African American GFR(CKD) 76 (>60 ml/min/1.73 sqM); Potassium 3.9 mmol/L (3.5-5.1); Sodium 134 mmol/L (137-145); Total Bilirubin 0.4 mg/dL (0.2-1.3)
[2020-08-27] MEDS ORDERED: ACETAMINOPHEN TAB 325 MG TAB PO STA (20:51)
[2020-08-27] MEDS ORDERED: INSULIN REGULAR 100 UNIT/ML VIAL SQ ONE (20:51)
[2020-08-27 20:55] LABS: INR 0.9 (<1.2); Prothrombin Time 9.7 sec (9.0-12.0)
[2020-08-27 21:04] LABS: Appearance,Urine Cloudy (Clear); Bacteria,Urine Rare /hpf; Bilirubin,Urine Negative (Negative); Blood,Urine Small (Negative); Color,Urine Light Yellow; Glucose,Urine (UA) 4+ (Negative); Ketones,Urine Negative (Negative); Leukocyte Esterase,Urine Moderate (Negative); Mucus,Urine Rare /hpf; Nitrite,Urine Negative (Negative); Protein,Urine 3+ (Negative); RBC,Urine 7 /hpf (0-5); Specific Gravity,Urine 1.036 (1.001-1.035); Squamous Epithelial Cell,Urine 1 /hpf (0-4); Urobilinogen,Urine <2.0 mg/dL (<2.0); WBC,Urine 34 /hpf (0-5)
[2020-08-27 21:06] LABS: Partial Thromboplastin Time 21.1 sec (22.0-30.0)
[2020-08-27 21:12] LABS: Amphetamine Screen,Urine Not Detected (NotDetected); Barbiturate Screen,Urine Not Detected (NotDetected); Benzodiazepines Screen,Urine Not Detected (NotDetected); Cocaine Screen,Urine Not Detected (NotDetected); Methadone Screen, Urine Not Detected (NotDetected); Opiate Screen,Urine Not Detected (NotDetected); Oxycodone Screen, Urine Not Detected (NotDetected); Phencyclidine Screen,Urine Not Detected (NotDetected); Tricyclic Antidepressant,Urine Not Detected (NotDetected); Urn Cannabinoid Scrn Not Detected (NotDetected)
[2020-08-27] MEDS ORDERED: cefTRIAXone IN SWFI 1,000 MG/10 ML SYRINGE IVP STA (21:37)
[2020-08-27 21:59] LABS: Glucose,Whole Blood 444 mg/dL (75-99)
[2020-08-27] MEDS ORDERED: NITROGLYCERIN OINT 1 INCH/GM PACKET TOPICAL STA (22:00)
[2020-08-27] MEDS ORDERED: INSULIN REGULAR 100 UNIT/ML VIAL IV ONE (22:00)
[2020-08-27] MEDS ORDERED: NITROGLYCERIN SL TABS 0.4 MG TAB SUBLINGUAL PRN (22:01)
[2020-08-27] MEDS: MORPHINE SULFATE 4 MG/ML SYRINGE IVP PRN (22:12)
--- NOTE | 2020-08-27 22:15 | CT ---
EXAMINATION TYPE: CT abdomen pelvis w con DATE OF EXAM: 08/27/2020 COMPARISON: 08/07/2020 HISTORY: Vaginal bleeding with hysterectomy, left lower quadrant pain. CT DLP: 1015.3 mGycm Automated exposure control for dose reduction was used. CONTRAST: Performed with IV Contrast, patient injected with 100 mL of Isovue 300. The lung bases are clear. There is no pleural effusion. Heart size is normal. There is small hiatal h ernia. There are clips from cholecystectomy. Liver spleen pancreas stomach appear intact. The bile ducts are not dilated. There is no adrenal mass. Kidneys show satisfactory contrast opacification. There is no hydronephrosi s. Ureters are not dilated. There is no retroperitoneal adenopathy. There is no inguinal hernia. Blad patrick distends smoothly. There is no free fluid in the pelvis. There is no evidence of free air. There is no ascites. There is no sign of a bowel obstruction. There is hysterectomy noted. Lumbar vertebra have normal alignment. Disc spaces are fairly normal. There is no compression fractur e. The bony pelvis is intact. Hip joints are intact. There is atherosclerotic vascular calcification. IMPRESSION: Atherosclerotic vascular disease. No acute abnormality of the abdomen pelvis. I do not see a cause fo r left lower quadrant pain or vaginal bleeding. No adverse change compared to old exam.
[2020-08-27 22:43] LABS: Glucose,Whole Blood 300 mg/dL (75-99)
[2020-08-28 01:26] LABS: Glucose,Whole Blood 202 mg/dL (75-99)
[2020-08-28 03:00] LABS: Cholesterol 218 mg/dL (<200); HDL Cholesterol 91 mg/dL (40-60); LDL Cholesterol,Calculated 91 mg/dL (0-99); Triglycerides 180 mg/dL (<150)
[2020-08-28] MEDS: MORPHINE SULFATE 4 MG/ML SYRINGE IVP PRN ×3 (08:17→16:04)
[2020-08-28] MEDS ORDERED: LOPERAMIDE 2 MG CAP PO PRN (08:47)
--- NOTE | 2020-08-28 08:52 | P.CRDCN ---
History of Present Illness Consult date: 08/28/20 Consult reason: chest pain History of present illness: History of present illness: This is a 55-year-old female with a past medical history significant for coronary artery disease with previous PCI and CABG, mitral valve replacement, nicotine dependence, hypertension, hyperlipidemia, CVA, MS not currently treated and does not follow with neurology. Patient follows with Dr. Salcedo in [place]. We have been asked to see the patient in consultation for chest pain. Patient underwent cardiac cath in June [address] Murillo with PCI to the PDA branch of the right coronary artery. She underwent dobutamine stress test in July 2020 which was inconclusive secondary to inability to obtain target heart rate. On 08/18/2020, patient underwent heart catheterization with Dr. Murillo revealing occluded LAD in the midportion, ROBLES to LAD patent, occluded ramus intermedius which seems to be an in-stent occlusion. Occluded left circumflex which seems to be an in-stent occlusion. Patent stent in the right coronary artery. Earlier this month, patient was also evaluated by Dr. Beasley after CT angiogram gram showed a right external iliac artery lesion, blockage that appears to be chronic. Echocardiogram completed in May 2020 reveal ejection fraction 55- 60%, normally functioning bioprosthetic mitral valve, mild tricuspid regurgitation. After discharge, patient did not follow up with her primary grinder and plater. She states he is too far away and she needs to be established with somebody else. Patient complains of a sharp left-sided chest pain that radiates under her left breast and goes to her back and left side of her neck. She states she's had some nausea and but also has some dry heaves at a been on and off for a couple months. Her chest pain initially started yesterday. She states she was drinking coffee at the time. She does not do any exertional activity. She is an active smoker of 10 cigarettes per day since she was 16 years of age. She denies any marijuana, illicit drug use or alcohol use. Patient states she also presented to the hospital for vaginal bleeding and left lower quadrant pain with history of hysterectomy at age 27. Patient presented to [facility] emergency center. CBC was un remarkable with hemoglobin of 13.1. Sodium 134, potassium 3.9. Blood sugar 487. BUN 17 and creatinine 0.9. Troponins 0.012, 0.013, 0.019. Triglycerides 180, cholesterol 218. LDL 91, HDL 91.EKG was a sinus rhythm with occasional PVC. No acute ST-T wave changes. CAT scan of the abdomen and pelvis with contrast revealed atherosclerotic vascular disease. No acute abnormality of the abdomen and pelvis. No cause for left lower quadrant pain or vaginal bleeding. Chest x-ray was negative. Patient was given Nitropaste and chest pain went from a #8 to #7. She states morphine helps the pain otherwise pain remains at a #7 or 8. Review Of Systems: Constitutional: No fever, no chills. Chronic generalized weakness and fatigue. EENT: No headache. No dizziness. Lungs: Reports shortness of breath, cough, no sputum production. No wheezing. Cardiovascular: Reports chest pain, no lower extremity edema. No palpitations. No paroxysmal nocturnal dyspnea. No orthopnea. No lightheadedness or dizziness. No syncopal episodes. Abdominal: No abdominal pain. Reports nausea and dry heaves. No diarrhea. No constipation. No bloody or tarry stools.. No loss of appetite. Genitourinary: No dysuria.. No urinary retention. Reports vaginal bleeding. Musculoskeletal: No myalgias. Reports muscle weakness. Integumentary: No wounds, no lesions. No rash or pruritus. Neurologic: No aphasia. No facial droop. No change in mentation. Physical examination: Gen: This is a 55-year-old female. Patient is resting that appears to be comfortable. VS: Afebrile, heart rate 80, blood pressure 129/64, pulse ox 99% on room air. HEENT: Head is atraumatic, normocephalic. Pupils equal, round. Sclerae is anicteric. NECK: Supple. No JVD. No lymphadenopathy. No thyromegaly. LUNGS: Clear to auscultation. No wheezes or rhonchi. No intercostal retractions. HEART: Regular rate and rhythm. Systolic murmur. ABDOMEN: Soft. Bowel sounds are present. No masses. No tenderness. EXTREMITIES: No pedal edema. No calf tenderness. Joint deformities to fingers and toes. NEUROLOGICAL: Patient is awake, alert and oriented x3. Cranial nerves 2 through 12 are grossly intact. Assessment: Chest pain, acute coronary syndrome ruled out with normal troponins Coronary artery disease with recent PCI to PDA branch of RCA, June 2020 History of coronary artery bypass grafting Valvular heart disease, status post bioprosthetic mitral valve replacement Hypertension Hyperlipidemia Diabetes mellitus, type II Peripheral vascular disease Nicotine dependence Multiple sclerosis Plan: Resume aspirin at 81 mg daily, Lipitor 80 mg daily, lisinopril 2.5 mg daily, metoprolol 25 mg twice daily, Ranexa 1000 mg twice daily, Brilinta 90 mg twice daily Resume Imdur 30 mg daily and discontinue Nitropaste 2-D echocardiogram was completed in May/2020 Recommend aggressive medical management Increase activity and evaluate patient's chest pain, possible discharge in the next 24 hours. Patient to follow-up with her primary grinder and plater as an outpatient Further recommendations to follow based upon clinical course Thank you kindly for this consultation. Nurse practitioner note has been reviewed, I agree with documented findings and plan of care. Patient was seen and examined. Past Medical History Past Medical History: Coronary Artery Disease (CAD), Chest Pain / Angina, COPD, CVA/TIA, Diabetes Mellitus, GI Bleed, Hyperlipidemia, Hypertension, Myocardial Infarction ([place]), Musculoskeletal Disorder, Pneumonia, Thyroid Disorder Additional Past Medical History / Comment(s): MS,cva x4 last one 2016. Last Myocardial Infarction Date:: 2015 History of Any Multi-Drug Resistant Organisms: None Reported Past Surgical History: Appendectomy, Bladder Surgery, Cholecystectomy, Coronary Bypass/CABG, Heart Catheterization, Heart Catheterization With Stent, H ysterectomy Additional Past Surgical History / Comment(s): CABG in 2013, Mitral valve on 2017, Heart Stent x 30, bilateral leg stent Past Anesthesia/Blood Transfusion Reactions: No Reported Reaction Date of Last Stent Placement:: 06/25/20 Past Psychological History: Anxiety, Bipolar Smoking Status: Current every day smoker Past Alcohol Use History: None Reported Past Drug Use History: None Reported - Past Family History Father Family Medical History: Coronary Artery Disease (CAD) Additional Family Medical History / Comment(s): heart disease Medications and Allergies Home Medications Medication Instructions Recorded Confirmed Type ARIPiprazole [Abilify] 5 mg PO HS 05/21/20 08/27/20 History Atorvastatin [Lipitor] 80 mg PO DAILY 05/21/20 08/27/20 History Calcium Carbonate [Calcium] 600 mg PO DAILY 05/21/20 08/27/20 History Cyclobenzaprine [Flexeril] 10 mg PO TID PRN 05/21/20 08/27/20 History Ferrous Sulfate [Iron (65 MG 325 mg PO BID 05/21/20 08/27/20 History Elemental)] Folic Acid 1 mg PO DAILY 05/21/20 08/27/20 History INSULIN ASPART (NovoLOG) [NovoLOG See Protocol SQ ACHS 05/21/20 08/27/20 History (formulary)] Isosorbide Mononitrate ER [Imdur] 30 mg PO DAILY 05/21/20 08/27/20 History Levothyroxine Sodium [Synthroid] 175 mcg PO DAILY 05/21/20 08/27/20 History Metoprolol Tartrate [Lopressor] 25 mg PO BID 05/21/20 08/27/20 History Mirtazapine [Remeron] 45 mg PO HS 05/21/20 08/27/20 History QUEtiapine [SEROquel] 50 mg PO HS 05/21/20 08/27/20 History Ranolazine [Ranexa] 1,000 mg PO BID 05/21/20 08/27/20 History Sertraline [Zoloft] 50 mg PO DAILY 05/21/20 08/27/20 History hydrOXYzine pamoate [Vistaril] 25 mg PO TID PRN 05/21/20 08/27/20 History levETIRAcetam [Keppra] 500 mg PO BID 05/21/20 08/27/20 History Loperamide [Imodium] 2 mg PO QID PRN 06/08/20 08/27/20 History Nitroglycerin Sl Tabs [Nitrostat] 0.4 mg SUBLINGUAL Q5M PRN 90 Days 06/27/20 08/27/20 Rx #100 tab Ticagrelor [Brilinta] 90 mg PO BID tab 06/27/20 08/27/20 Rx Insulin Glargine,Hum.rec.anlog 30 unit SQ BID #0 07/14/20 08/27/20 Rx [Lantus Solostar] Pantoprazole [Protonix] 40 mg PO AC-BRKFST 30 Days #30 07/14/20 08/27/20 Rx tablet. Sodium Bicarbonate Tab 650 mg PO BID 30 Days #60 tab 07/14/20 08/27/20 Rx Lidocaine 5% Patch [Lidoderm 5% 1 - 2 patch TOPICAL DAILY@1300 PRN 07/20/20 08/27/20 History Patch] Aspirin 81 mg PO DAILY chew 08/20/20 08/27/20 Rx lisinopriL [Zestril] 2.5 mg PO DAILY tab 08/20/20 08/27/20 Rx HYDROcodone/APAP 5-325MG [[place] 1 tab PO TID PRN 08/27/20 08/27/20 History 5-325] Allergies Allergy/AdvReac Type Severity Reaction Status Date / Time gabapentin Allergy Anaphylaxis Verified 08/27/20 21:35 shellfish derived [Crab] Allergy Rash/Hives Verified 08/27/20 21:35 Physical Exam Vitals: Vital Signs Temp Pulse Pulse Resp BP BP Pulse Ox 08/28/20 01:57 97.0 F L 80 18 129/64 99 08/28/20 01:25 97.0 F L 80 18 129/64 99 08/27/20 22:09 99.1 F 83 18 144/76 99 08/27/20 22:01 99 08/27/20 20:48 99.9 F H 08/27/20 20:34 86 18 166/81 100 08/27/20 18:57 100.6 F H 94 22 98 Intake and Output 08/27/20 08/28/20 08/28/20 22:59 06:59 14:59 Other: Voiding Method Toilet Diaper # Voids 2 Weight 81.193 kg 81.193 kg Results 08/27/20 19:53 08/27/20 19:53 Cardiac Enzymes 08/27/20 08/27/20 08/27/20 Range/Units 19:53 19:53 23:25 AST 21 (14-36) U/L Troponin I <0.012 0.013 (0.000-0.034) ng/mL 08/28/20 Range/Units 02:12 AST (14-36) U/L Troponin I 0.019 (0.000-0.034) ng/mL Coagulation 08/27/20 Range/Units 19:53 PT 9.7 (9.0-12.0) sec APTT 21.1 L (22.0-30.0) sec Lipids 08/28/20 Range/Units 02:12 Triglycerides 180 H (<150) mg/dL Cholesterol 218 H (<200) mg/dL HDL Cholesterol 91 H (40-60) mg/dL CBC 08/27/20 Range/Units 19:53 WBC 5.4 (3.8-10.6) k/uL RBC 4.16 (3.80-5.40) m/uL Hgb 13.1 (11.4-16.0) gm/dL Hct 38.9 (34.0-46.0) % Plt Count 244 (150-450) k/uL Comprehensive Metabolic Panel 08/27/20 Range/Units 19:53 Sodium 134 L (137-145) mmol/L Potassium 3.9 (3.5-5.1) mmol/L Chloride 101 (98-107) mmol/L Carbon Dioxide 23 (22-30) mmol/L BUN 15 (7-17) mg/dL Creatinine 0.87 (0.52-1.04) mg/dL Glucose 487 H (74-99) mg/dL Calcium 9.4 (8.4-10.2) mg/dL AST 21 (14-36) U/L ALT 18 (4-34) U/L Alkaline Phosphatase 116 (38-126) U/L Total Protein 7.0 (6.3-8.2) g/dL Albumin 4.2 (3.5-5.0) g/dL Current Medications Generic Name Dose Route Start Last Admin Trade Name Freq PRN Reason Stop Dose Admin Aspirin 325 mg 08/28/20 09:00 Aspirin 325 Mg Tab PO DAILY CAROLYN Morphine Sulfate 4 mg 08/27/20 22:00 08/27/20 22:12 Morphine Sulfate 4 Mg/Ml Syringe IVP 4 mg Q4HR PRN Administration Pain Nitroglycerin 0.4 mg 08/27/20 22:01 Nitroglycerin Sl Tabs 0.4 Mg Tab SUBLINGUAL Q5M PRN Chest Pain Intake and Output 08/27/20 08/28/20 08/28/20 22:59 06:59 14:59 Other: Voiding Method Toilet Diaper # Voids 2 Weight 81.193 kg 81.193 kg 08/27/20 19:53 08/27/20 19:53
[2020-08-28] MEDS ORDERED: ASPIRIN 325 MG TAB PO SCH (09:00)
[2020-08-28] MEDS: TICAGRELOR 90 MG TAB PO SCH ×2 (10:31→22:11)
[2020-08-28] MEDS: ISOSORBIDE MONONITRATE ER 30 MG TAB.ER.24H PO SCH (10:31)
[2020-08-28] MEDS: RANOLAZINE 500 MG TAB.ER.12H PO SCH ×2 (10:31→22:10)
[2020-08-28] MEDS: ATORVASTATIN 80 MG TAB PO SCH (10:31)
[2020-08-28 12:10] LABS: Glucose,Whole Blood 278 mg/dL (75-99)
[2020-08-28] MEDS ORDERED: NITROGLYCERIN SL TABS 0.4 MG TAB SUBLINGUAL PRN (14:10)
[2020-08-28] MEDS ORDERED: hydrOXYzine pamoate 25 MG CAP PO PRN (14:10)
[2020-08-28] MEDS ORDERED: CYCLOBENZAPRINE 10 MG TAB PO PRN (14:10)
--- NOTE | 2020-08-28 14:14 | P.HPIM ---
History of Present Illness H&P Date: 08/28/20 Aminta Sheikh, is a 55-year-old female who presented to [facility] emergency room with a chief complaint of chest pain, pelvic pain, and vaginal bleeding she was evaluated in emergency room, her vital examination on presentation revealed a temperature of 100.6 pulse 94 respiration 22 pulse ox 98% on room air, her white blood count was 5.4 hemoglobin 13.1 platelet count 244 sodium 134 potassium 3.9 chloride 101 CO2 23 glucose 487, urine analysis revealed evidence of urinary tract infection. Computed tomography scan of the abdomen and pelvis was done in the emergency room and revealed evidence of vascular calcifications otherwise within normal limits, EKG was done in the emergency room and revealed sinus rhythm with rightward axis and prolonged QT no acute ischemic changes were noted, chest x-ray was done in the emergency room and revealed no acute cardiopulmonary process, patient was admitted to medical floor for further evaluation and treatment, cardiology consultation was requested. Gynecology consultation was requested in regard to pelvic pain and vaginal bleeding, pelvic ultrasound was ordered. Her past medical history is significant for history of coronary artery disease with history of coronary artery bypass graft surgery in 2013 she also has a history of cardiac catheterization with angioplasty and stent placement in June 2020, past medical history also significant for diabetes mellitus, history of hypertension, history of hyperlipidemia, history of bipolar disorder, and history of nicotine dependence. On review of systems patient was seen and examined on the medical floor she is alert and oriented 3 in no apparent distress there is no fever or chills no headache or dizziness no chest pain at this time no shortness of breath no palpitation no cough no nausea or vomiting no abdominal pain no diarrhea no blood in the stools she is having some pelvic pain no burning with urination no frequency or urgency and no hematuria, she stated that she was having some vaginal bleeding over the last 48 hours. Past Medical History Past Medical History: Coronary Artery Disease (CAD), Chest Pain / Angina, COPD, CVA/TIA, Diabetes Mellitus, GI Bleed, Hyperlipidemia, Hypertension, Myocardial Infarction ([place]), Musculoskeletal Disorder, Pneumonia, Thyroid Disorder Additional Past Medical History / Comment(s): MS,cva x4 last one 2016. Last Myocardial Infarction Date:: 2015 History of Any Multi-Drug Resistant Organisms: None Reported Past Surgical History: Appendectomy, Bladder Surgery, Cholecystectomy, Coronary Bypass/CABG, Heart Catheterization, Heart Catheterization With Stent, Hysterectomy Additional Past Surgical History / Comment(s): CABG in 2014, Mitral valve on 2017, Heart Stent x 30, bilateral leg stent Past Anesthesia/Blood Transfusion Reactions: No Reported Reaction Date of Last Stent Placement:: 06/25/20 Past Psychological History: Anxiety, Bipolar Smoking Status: Current every day smoker Past Alcohol Use History: None Reported Past Drug Use History: None Reported - Past Family History Father Family Medical History: Coronary Artery Disease (CAD) Additional Family Medical History / Comment(s): heart disease Medications and Allergies Home Medications Medication Instructions Recorded Confirmed Type ARIPiprazole [Abilify] 5 mg PO HS 05/21/20 08/27/20 History Atorvastatin [Lipitor] 80 mg PO DAILY 05/21/20 08/27/20 History Calcium Carbonate [Calcium] 600 mg PO DAILY 05/21/20 08/27/20 History Cyclobenzaprine [Flexeril] 10 mg PO TID PRN 05/21/20 08/27/20 History Ferrous Sulfate [Iron (65 MG 325 mg PO BID 05/21/20 08/27/20 History Elemental)] Folic Acid 1 mg PO DAILY 05/21/20 08/27/20 History INSULIN ASPART (NovoLOG) [NovoLOG See Protocol SQ ACHS 05/21/20 08/27/20 History (formulary)] Isosorbide Mononitrate ER [Imdur] 30 mg PO DAILY 05/21/20 08/27/20 History Levothyroxine Sodium [Synthroid] 175 mcg PO DAILY 05/21/20 08/27/20 History Metoprolol Tartrate [Lopressor] 25 mg PO BID 05/21/20 08/27/20 History Mirtazapine [Remeron] 45 mg PO HS 05/21/20 08/27/20 History QUEtiapine [SEROquel] 50 mg PO HS 05/21/20 08/27/20 History Ranolazine [Ranexa] 1,000 mg PO BID 05/21/20 08/27/20 History Sertraline [Zoloft] 50 mg PO DAILY 05/21/20 08/27/20 History hydrOXYzine pamoate [Vistaril] 25 mg PO TID PRN 05/21/20 08/27/20 History levETIRAcetam [Keppra] 500 mg PO BID 05/21/20 08/27/20 History Loperamide [Imodium] 2 mg PO QID PRN 06/08/20 08/27/20 History Nitroglycerin Sl Tabs [Nitrostat] 0.4 mg SUBLINGUAL Q5M PRN 90 Days 06/27/20 Rx #100 tab Ticagrelor [Brilinta] 90 mg PO BID tab 06/27/20 08/27/20 Rx Insulin Glargine,Hum.rec.anlog 30 unit SQ BID #0 07/14/20 08/27/20 Rx [Lantus Solostar] Pantoprazole [Protonix] 40 mg PO AC-BRKFST 30 Days #30 07/14/20 08/27/20 Rx tablet. Sodium Bicarbonate Tab 650 mg PO BID 30 Days #60 tab 07/14/20 08/27/20 Rx Lidocaine 5% Patch [Lidoderm 5% 1 - 2 patch TOPICAL DAILY@1300 PRN 07/20/20 08/27/20 History Patch] Aspirin 81 mg PO DAILY chew 08/20/20 08/27/20 Rx lisinopriL [Zestril] 2.5 mg PO DAILY tab 08/20/20 08/27/20 Rx HYDROcodone/APAP 5-325MG [[place] 1 tab PO TID PRN 08/27/20 08/27/20 History 5-325] Allergies Allergy/AdvReac Type Severity Reaction Status Date / Time gabapentin Allergy Anaphylaxis Verified 08/27/20 21:35 shellfish derived [Crab] Allergy Rash/Hives Verified 08/27/20 21:35 Physical Exam Vitals: Vital Signs Temp Pulse Pulse Resp BP BP Pulse Ox 08/28/20 08:00 86 08/28/20 07:00 97.1 F L 86 16 147/82 100 08/28/20 01:57 97.0 F L 80 18 129/64 99 08/28/20 01:25 97.0 F L 80 18 129/64 99 08/27/20 22:09 99.1 F 83 18 144/76 99 08/27/20 22:01 99 08/27/20 20:48 99.9 F H 08/27/20 20:34 86 18 166/81 100 08/27/20 18:57 100.6 F H 94 22 98 Intake and Output 08/27/20 08/28/20 08/28/20 22:59 06:59 14:59 Other: Voiding Method Toilet Diaper # Voids 2 Weight 81.193 kg 81.193 kg In general patient is alert and oriented 3 in no apparent distress HEENT head normocephalic and atraumatic Neck is supple no JVD no goiter no lymphadenopathy Chest exam reveals a few scattered rhonchi no wheezing Cardiac exam reveals regular heart sounds S1 and S2 no gallops no murmurs Abdomen is soft nontender there is moderate bilateral pelvic tenderness no organomegaly no palpable masses with normal bowel sounds Extremity exam reveals no edema no cyanosis or clubbing Neurological examination reveals no gross focal deficit Results CBC & Chem 7: 08/27/20 19:53 08/27/20 19:53 Labs: Abnormal Lab Results - Last 24 Hours (Table) 08/27/20 08/27/20 08/27/20 Range/Units 19:53 19:53 19:53 APTT 21.1 L (22.0-30.0) sec Sodium 134 L (137-145) mmol/L Glucose 487 H (74-99) mg/dL POC Glucose (mg/dL) (75-99) mg/dL Triglycerides (<150) mg/dL Cholesterol (<200) mg/dL HDL Cholesterol (40-60) mg/dL Urine Appearance Cloudy H (Clear) Ur Specific [place] 1.036 H (1.001-1.035) Urine Protein 3+ H (Negative) Urine Glucose (UA) 4+ H (Negative) Urine Blood Small H (Negative) Ur Leukocyte Esterase Moderate H (Negative) Urine RBC 7 H (0-5) /hpf Urine WBC 34 H (0-5) /hpf Urine Bacteria Rare H (None) /hpf Urine Mucus Rare H (None) /hpf 08/27/20 08/27/20 08/28/20 Range/Units 21:57 22:41 01:24 APTT (22.0-30.0) sec Sodium (137-145) mmol/L Glucose (74-99) mg/dL POC Glucose (mg/dL) 444 H 300 H 202 H (75-99) mg/dL Triglycerides (<150) mg/dL Cholesterol (<200) mg/dL HDL Cholesterol (40-60) mg/dL Urine Appearance (Clear) Ur Specific [place] (1.001-1.035) Urine Protein (Negative) Urine Glucose (UA) (Negative) Urine Blood (Negative) Ur Leukocyte Esterase (Negative) Urine RBC (0-5) /hpf Urine WBC (0-5) /hpf Urine Bacteria (None) /hpf Urine Mucus (None) /hpf 08/28/20 08/28/20 Range/Units 02:12 12:08 APTT (22.0-30.0) sec Sodium (137-145) mmol/L Glucose (74-99) mg/dL POC Glucose (mg/dL) 278 H (75-99) mg/dL Triglycerides 180 H (<150) mg/dL Cholesterol 218 H (<200) mg/dL HDL Cholesterol 91 H (40-60) mg/dL Urine Appearance (Clear) Ur Specific [place] (1.001-1.035) Urine Protein (Negative) Urine Glucose (UA) (Negative) Urine Blood (Negative) Ur Leukocyte Esterase (Negative) Urine RBC (0-5) /hpf Urine WBC (0-5) /hpf Urine Bacteria (None) /hpf Urine Mucus (None) /hpf Microbiology - Last 24 Hours (Table) 08/27/20 19:53 Urine Culture - Preliminary Urine,Voided Thrombosis Risk Factor Assmnt - Choose All That Apply Each Factor Represents 1 point: Abnormal pulmonary function (COPD), Acute OR, Age 41-60 years, Obesity (BMI >25) Other Risk Factors: No Other congenital or acquired thrombophilia - If yes, enter type in comment: No Thrombosis Risk Factor Assessment Total Risk Factor Score: 4 Thrombosis Risk Factor Assessment Level: Moderate Risk Assessment and Plan Plan: 1. Episode of chest pain, with extensive cardiac history patient is admitted to telemetry floor cardiology consultation was requested 2. Pelvic pain with vaginal bleeding, computed tomography scan of the abdomen and pelvis did not reveal any significant abnormality, pelvic ultrasound was ordered and gynecology consultation was requested 3. Underlying history of urinary tract infection patient was started on IV Rocephin awaiting urine culture results 4. Underlying history of diabetes mellitus 5. Underlying history of hypertension 6. Underlying history of coronary artery disease 7. Underlying history of hyperlipidemia 8. Underlying history of depression with bipolar disorder At this time home medication were reviewed and reordered Check pelvic ultrasound Awaiting input from gynecology and cardiology Recheck labs and follow-up in a.m.
[2020-08-28] MEDS: LEVOTHYROXINE 88 MCG TAB PO SCH (16:04)
[2020-08-28] MEDS: PANTOPRAZOLE 40 MG TABLET PO SCH (16:04)
[2020-08-28] MEDS: SERTRALINE 50 MG TAB PO SCH (16:04)
--- NOTE | 2020-08-28 16:40 | US ---
EXAMINATION TYPE: US pelvic complete DATE OF EXAM: 08/28/2020 COMPARISON: CT 2020 CLINICAL HISTORY: pelvic pain, vaginal bleeding. Intermittent vaginal and rectal bleeding x 1 month, 3, para 3, history of uterus and 1 ovary removed 25 years ago(patient unsure of TECHNIQUE: Transabdominal sonographic images of the pelvis were acquired. Transvaginal sonographic i mages were medically necessary to better assess the following anatomy: ovary Date of LMP: 25 years ago EXAM MEASUREMENTS: Right Ovary: not seen Left Ovary: not seen 1. Uterus: surgically absent 2. Endometrium: surgically absent 3. Right Ovary: not seen 4. Left Ovary: not seen 5. Bilateral Adnexa: wnl 6. Posterior cul-de-sac: wnl IMPRESSION: Hysterectomy and bilateral ovaries not visualized. Otherwise no significant abnormality is seen.
[2020-08-28 17:12] LABS: Glucose,Whole Blood 358 mg/dL (75-99)
--- NOTE | 2020-08-28 20:12 | P.OBCN ---
History of Present Illness Consult date: 08/28/20 Reason for consult: other (Possible vaginal bleeding) History of present illness: The patient is a 55-year-old 1 para 1 who is admitted for cardiac concerns which are documented in the chart. She has reported in the past possibility of vaginal bleeding and is again reported that at this time. She was evaluated in June by another physician for the same at which time the findings were noted. Computed tomography scan at that time was entirely negative for gynecologic concerns. She carries a history of a previous vaginal hysterectomy with unilateral oophorectomy though which side is of some doubt. She had a repeat computed tomography scan upon admission for this admission as well as a pelvic ultrasound. Neither showed any significant findings and the ultrasound was unable to identify which ovary remains. Historically, the patient is uncertain whether the bleeding could be from the rectum, vagina, or bladder. She reports that it is occasional and has been present for approximately 1-2 months. She is on some cardiac medications but nothing more than aspirin for issues of blood thinning. She is menopausal basally upon H and symptoms. Obstetrical history: 1 para 1001 Gynecologic history: Unremarkable. Most recent gynecologic evaluation in an outpatient setting was around the time of her hysterectomy more than 25 years ago which was reportedly done for entirely benign reasons though she may have [place]arris [place] cryotherapy in the past as well. Review of Systems Review of systems is confined to history of present illness. Past Medical History Past Medical History: Coronary Artery Disease (CAD), Chest Pain / Angina, COPD, CVA/TIA, Diabetes Mellitus, GI Bleed, Hyperlipidemia, Hypertension, Myocardial Infarction (MA), Musculoskeletal Disorder, Pneumonia, Thyroid Disorder Additional Past Medical History / Comment(s): MS,cva x4 last one 2016. Last Myocardial Infarction Date:: 2016 History of Any Multi-Drug Resistant Organisms: None Reported Past Surgical History: Appendectomy, Bladder Surgery, Cholecystectomy, Coronary Bypass/CABG, Heart Catheterization, Heart Catheterization With Stent, Hysterectomy Additional Past Surgical History / Comment(s): CABG in 2013, Mitral valve on 2017, Heart Stent x 30, bilateral leg stent Past Anesthesia/Blood Transfusion Reactions: No Reported Reaction Date of Last Stent Placement:: 06/25/20 Past Psychological History: Anxiety, Bipolar Smoking Status: Current every day smoker Past Alcohol Use History: None Reported Past Drug Use History: None Reported - Past Family History Father Family Medical History: Coronary Artery Disease (CAD) Additional Family Medical History / Comment(s): heart disease Medications and Allergies Home Medications Medication Instructions Recorded Confirmed Type ARIPiprazole [Abilify] 5 mg PO HS 05/21/20 08/27/20 History Atorvastatin [Lipitor] 80 mg PO DAILY 05/21/20 08/27/20 History Calcium Carbonate [Calcium] 600 mg PO DAILY 05/21/20 08/27/20 History Cyclobenzaprine [Flexeril] 10 mg PO TID PRN 05/21/20 08/27/20 History Ferrous Sulfate [Iron (65 MG 325 mg PO BID 05/21/20 08/27/20 History Elemental)] Folic Acid 1 mg PO DAILY 05/21/20 08/27/20 History INSULIN ASPART (NovoLOG) [NovoLOG See Protocol SQ ACHS 05/21/20 08/27/20 History (formulary)] Isosorbide Mononitrate ER [Imdur] 30 mg PO DAILY 05/21/20 08/27/20 History Levothyroxine Sodium [Synthroid] 175 mcg PO DAILY 05/21/20 08/27/20 History Metoprolol Tartrate [Lopressor] 25 mg PO BID 05/21/20 08/27/20 History Mirtazapine [Remeron] 45 mg PO HS 05/21/20 08/27/20 History QUEtiapine [SEROquel] 50 mg PO HS 05/21/20 08/27/20 History Ranolazine [Ranexa] 1,000 mg PO BID 05/21/20 08/27/20 History Sertraline [Zoloft] 50 mg PO DAILY 05/21/20 08/27/20 History hydrOXYzine pamoate [Vistaril] 25 mg PO TID PRN 05/21/20 08/27/20 History levETIRAcetam [Keppra] 500 mg PO BID 05/21/20 08/27/20 History Loperamide [Imodium] 2 mg PO QID PRN 06/08/20 08/27/20 History Nitroglycerin Sl Tabs [Nitrostat] 0.4 mg SUBLINGUAL Q5M PRN 90 Days 06/27/20 08/27/20 Rx #100 tab Ticagrelor [Brilinta] 90 mg PO BID tab 06/27/20 08/27/20 Rx Insulin Glargine,Hum.rec.anlog 30 unit SQ BID #0 07/14/20 08/27/20 Rx [Lantus Solostar] Pantoprazole [Protonix] 40 mg PO AC-BRKFST 30 Days #30 07/14/20 08/27/20 Rx tablet. Sodium Bicarbonate Tab 650 mg PO BID 30 Days #60 tab 07/14/20 08/27/20 Rx Lidocaine 5% Patch [Lidoderm 5% 1 - 2 patch TOPICAL DAILY@1300 PRN 07/20/20 08/27/20 History Patch] Aspirin 81 mg PO DAILY chew 08/20/20 08/27/20 Rx lisinopriL [Zestril] 2.5 mg PO DAILY tab 08/20/20 08/27/20 Rx HYDROcodone/APAP 5-325MG [[place] 1 tab PO TID PRN 08/27/20 08/27/20 History 5-325] Allergies Allergy/AdvReac Type Severity Reaction Status Date / Time gabapentin Allergy Anaphylaxis Verified 08/27/20 21:35 shellfish derived [Crab] Allergy Rash/Hives Verified 08/27/20 21:35 Exam Vital Signs Temp Pulse Pulse Resp BP BP Pulse Ox 08/28/20 15:00 97.0 F L 78 16 109/66 100 08/28/20 14:00 16 08/28/20 08:00 86 08/28/20 07:00 97.1 F L 86 16 147/82 100 08/28/20 01:57 97.0 F L 80 18 129/64 99 08/28/20 01:25 97.0 F L 80 18 129/64 99 08/27/20 22:09 99.1 F 83 18 144/76 99 08/27/20 22:01 99 08/27/20 20:48 99.9 F H 08/27/20 20:34 86 18 166/81 100 Intake and Output 08/28/20 08/28/20 08/28/20 06:59 14:59 22:59 Other: Voiding Method Toilet Diaper # Voids 2 1 Weight 81.193 kg In general, this is a well-developed, well-nourished white female in no acute distress. She is reasonably lucid and able to give some history as noted above. Examination is otherwise confined her abdominal examination which demonstrates mild bilateral lower quadrant tenderness, left greater than right with no apparent guarding or rebound. Bimanual pelvic examination demonstrates some tenderness at the level of the bladder and in the left adnexal region without any evidence of mass. The vagina itself is very smooth without any palpable masses throughout. The right adnexa demonstrates less discomfort than anteriorl y and the left side. No blood is noted on the examination glove of any kind in the apex is smooth. Results Result Diagrams: 08/27/20 19:53 08/27/20 19:53 Abnormal Lab Results - Last 24 Hours (Table) 08/27/20 08/27/20 08/27/20 Range/Units 19:53 19:53 19:53 APTT 21.1 L (22.0-30.0) sec Sodium 134 L (137-145) mmol/L Glucose 487 H (74-99) mg/dL POC Glucose (mg/dL) (75-99) mg/dL Triglycerides (<150) mg/dL Cholesterol (<200) mg/dL HDL Cholesterol (40-60) mg/dL Urine Appearance Cloudy H (Clear) Ur Specific [place] 1.036 H (1.001-1.035) Urine Protein 3+ H (Negative) Urine Glucose (UA) 4+ H (Negative) Urine Blood Small H (Negative) Ur Leukocyte Esterase Moderate H (Negative) Urine RBC 7 H (0-5) /hpf Urine WBC 34 H (0-5) /hpf Urine Bacteria Rare H (None) /hpf Urine Mucus Rare H (None) /hpf 08/27/20 08/27/20 08/28/20 Range/Units 21:57 22:41 01:24 APTT (22.0-30.0) sec Sodium (137-145) mmol/L Glucose (74-99) mg/dL POC Glucose (mg/dL) 444 H 300 H 202 H (75-99) mg/dL Triglycerides (<150) mg/dL Cholesterol (<200) mg/dL HDL Cholesterol (40-60) mg/dL Urine Appearance (Clear) Ur Specific [place] (1.001-1.035) Urine Protein (Negative) Urine Glucose (UA) (Negative) Urine Blood (Negative) Ur Leukocyte Esterase (Negative) Urine RBC (0-5) /hpf Urine WBC (0-5) /hpf Urine Bacteria (None) /hpf Urine Mucus (None) /hpf 08/28/20 08/28/20 08/28/20 Range/Units 02:12 12:08 17:10 APTT (22.0-30.0) sec Sodium (137-145) mmol/L Glucose (74-99) mg/dL POC Glucose (mg/dL) 278 H 358 H (75-99) mg/dL Triglycerides 180 H (<150) mg/dL Cholesterol 218 H (<200) mg/dL HDL Cholesterol 91 H (40-60) mg/dL Urine Appearance (Clear) Ur Specific [place] (1.001-1.035) Urine Protein (Negative) Urine Glucose (UA) (Negative) Urine Blood (Negative) Ur Leukocyte Esterase (Negative) Urine RBC (0-5) /hpf Urine WBC (0-5) /hpf Urine Bacteria (None) /hpf Urine Mucus (None) /hpf Microbiology - Last 24 Hours (Table) 08/27/20 19:53 Urine Culture - Preliminary Urine,Voided Assessment and Plan (1) Vaginal bleeding Current Visit: Yes Status: Acute Code(s): N93.9 - ABNORMAL UTERINE AND VAGINAL BLEEDING, UNSPECIFIED SNOMED Code(s): 261651501 Plan: I strongly suspect the bleeding is not of vaginal or gynecologic origin. Given her history of diverticulosis found at recent colonoscopy as well as likely history of hemorrhoids, bleeding is most likely be a GI origin. It is certainly possible that it could be from the bladder as well as she did have some ant erior tenderness on examination. Given her lack of pelvic organs and lack of any findings on bimanual vaginal examination, I would suspect these other 2 sites as a much more likely source, particularly as her gynecologic organs have been removed aside from one ovary which cannot be visualized by CT or ultrasound. I will leave further evaluation in your hands but again would strongly suspected GI origin.
[2020-08-28 21:15] LABS: Glucose,Whole Blood 328 mg/dL (75-99)
[2020-08-28] MEDS: FERROUS SULFATE 325 MG TAB PO SCH (22:09)
[2020-08-28] MEDS: ARIPiprazole 5 MG TAB PO SCH (22:09)
[2020-08-28] MEDS: levETIRAcetam 500 MG TAB PO SCH (22:09)
[2020-08-28] MEDS: INSULIN ASPART (NovoLOG) 100 UNIT/ML VIAL SQ SCH (22:09)
[2020-08-28] MEDS: MIRTAZAPINE 45 MG TABLET PO SCH (22:10)
[2020-08-28] MEDS: QUEtiapine 50 MG TAB PO SCH (22:10)
[2020-08-28] MEDS: METOPROLOL TARTRATE 25 MG TAB PO SCH (22:10)
[2020-08-28] MEDS: SODIUM BICARBONATE TAB 650 MG TAB PO SCH (22:11)
[2020-08-28] MEDS: INSULIN DETEMIR (LEVEMIR) 100 UNIT/ML SYR SQ SCH (23:34)
[2020-08-29 02:05] LABS: Glucose,Whole Blood 224 mg/dL (75-99)
[2020-08-29] MEDS: LEVOTHYROXINE 88 MCG TAB PO SCH (05:53)
[2020-08-29 07:41] LABS: Glucose,Whole Blood 271 mg/dL (75-99)
[2020-08-29] MEDS: ATORVASTATIN 80 MG TAB PO SCH (07:45)
[2020-08-29] MEDS: PANTOPRAZOLE 40 MG TABLET PO SCH (07:45)
[2020-08-29] MEDS: SERTRALINE 50 MG TAB PO SCH (07:45)
[2020-08-29] MEDS: CALCIUM CARBONATE 500 MG CHEWABLE PO SCH (07:45)
[2020-08-29] MEDS: FERROUS SULFATE 325 MG TAB PO SCH ×2 (07:45→22:12)
[2020-08-29] MEDS: levETIRAcetam 500 MG TAB PO SCH ×2 (07:45→22:11)
[2020-08-29] MEDS: ASPIRIN 81 MG PO SCH (07:45)
[2020-08-29] MEDS: SODIUM BICARBONATE TAB 650 MG TAB PO SCH ×2 (07:45→22:12)
[2020-08-29] MEDS: ISOSORBIDE MONONITRATE ER 30 MG TAB.ER.24H PO SCH (07:46)
[2020-08-29] MEDS: RANOLAZINE 500 MG TAB.ER.12H PO SCH ×2 (07:46→22:13)
[2020-08-29] MEDS: TICAGRELOR 90 MG TAB PO SCH ×2 (07:47→22:14)
[2020-08-29] MEDS: INSULIN DETEMIR (LEVEMIR) 100 UNIT/ML SYR SQ SCH ×2 (07:48→22:12)
[2020-08-29] MEDS: INSULIN ASPART (NovoLOG) 100 UNIT/ML VIAL SQ SCH ×4 (07:49→22:12)
[2020-08-29] MEDS: METOPROLOL TARTRATE 25 MG TAB PO SCH ×2 (07:56→22:11)
--- NOTE | 2020-08-29 08:38 | P.PN ---
Subjective Progress Note Date: 08/29/20 History of present illness: This is a 55-year-old female with a past medical history significant for coron ariana artery disease with previous PCI and CABG, mitral valve replacement, nicotine dependence, hypertension, hyperlipidemia, CVA, MS not currently treated and does not follow with neurology. Patient follows with Dr. Salcedo in [place]. We have been asked to see the patient in consultation for chest pain. Patient underwent cardiac cath in June [address] Murillo with PCI to the PDA branch of the right coronary artery. She underwent dobutamine stress test in July 2020 which was inconclusive secondary to inability to obtain target heart rate. On 08/18/2020, patient underwent heart catheterization with Dr. Murillo revealing occluded LAD in the midportion, ROBLES to LAD patent, occluded ramus intermedius which seems to be an in-stent occlusion. Occluded left circumflex which seems to be an in-stent occlusion. Patent stent in the right coronary artery. Earlier this month, patient was also evaluated by Dr. Beasley after CT angiogram gram showed a right external iliac artery lesion, blockage that appears to be chronic. Echocardiogram completed in May 2020 reveal ejection fraction 55- 60%, normally functioning bioprosthetic mitral valve, mild tricuspid regurgitation. After discharge, patient did not follow up with her primary seam sewer. She states he is too far away and she needs to be established with somebody else. Patient complains of a sharp left-sided chest pain that r adiates under her left breast and goes to her back and left side of her neck. She states she's had some nausea and but also has some dry heaves at a been on and off for a couple months. Her chest pain initially started yesterday. She states she was drinking coffee at the time. She does not do any exertional activity. She is an active smoker of 10 cigarettes per day since she was 16 years of age. She denies any marijuana, illicit drug use or alcohol use. Patient states she also presented to the hospital for vaginal bleeding and left lower quadrant pain with history of hysterectomy at age 27. Patient presented to [facility] emergency center. CBC was unremarkable with hemoglobin of 13.1. Sodium 134, potassium 3.9. Blood sugar 487. BUN 17 and creatinine 0.9. Troponins 0.012, 0.013, 0.019. Triglycerides 180, cholesterol 218. LDL 91, HDL 91.EKG was a sinus rhythm with occasional PVC. No acute ST-T wave changes. CAT scan of the abdomen and pelvis with contrast revealed atherosclerotic vascular disease. No acute abnormality of the abdomen and pelvis. No cause for left lower quadrant pain or vaginal bleeding. Chest x-ray was negative. Patient was given Nitropaste and chest pain went from a #8 to #7. She states morphine helps the pain otherwise pain remains at a #7 or 8. 08/29: Patient has not complained to her nurse that she has chest pain but when asked she states she has a chest pain is unchanged as a #7. We will ask for patient to get up and ambulate. She normally uses a walker. Pelvic ultrasound showed no significant abnormality. DIETARY AIDE is following and essentially ruled out vaginal bleeding with more likely GI bleeding suspected. Physical examination: Gen: This is a 55-year-old female. Patient is resting that appears to be comfortable. VS: Afebrile, heart rate 60, blood pressure 113/62, pulse ox 99% on room air. HEENT: Head is atraumatic, normocephalic. Pupils equal, round. Sclerae is anicteric. NECK: Supple. No JVD. No lymphadenopathy. No thyromegaly. LUNGS: Clear to auscultation. No wheezes or rhonchi. No intercostal retractions. HEART: Regular rate and rhythm. Systolic murmur. ABDOMEN: Soft. Bowel sounds are present. No masses. No tenderness. EXTREMITIES: No pedal edema. No calf tenderness. Joint deformities to fingers and toes. NEUROLOGICAL: Patient is awake, alert and oriented x3. Cranial nerves 2 through 12 are grossly intact. Assessment: Chest pain, acute coronary syndrome ruled out with normal troponins Coronary artery disease with recent PCI to PDA branch of RCA, June 2020 History of coronary artery bypass grafting Valvular heart disease, status post bioprosthetic mitral valve replacement Hypertension Hyperlipidemia Diabetes mellitus, type II Peripheral vascular disease Nicotine dependence Multiple sclerosis Abdominal pain and possible GI versus vaginal bleeding Plan: Continue aspirin at 81 mg daily, Lipitor 80 mg daily, lisinopril 2.5 mg daily, metoprolol 25 mg twice daily, Ranexa 1000 mg twice daily, Brilinta 90 mg twice daily Continue Imdur 30 mg daily 2-D echocardiogram was completed in May/2020, no need to repeat echocardiogram on this admission Recommend aggressive medical management To further workup at this time Patient to follow-up with her primary seam sewer as an outpatient Thank you kindly for this consultation. Nurse practitioner note has been reviewed, I agree with documented findings and plan of care. Patient was seen and examined. Objective - Vital Signs Vital signs: Vital Signs Temp 98.0 F 08/29/20 02:00 Pulse 60 08/29/20 02:00 Resp 18 08/29/20 02:00 BP 113/62 08/29/20 02:00 Pulse Ox 98 08/29/20 07:42 Intake & Output 08/28/20 08/29/20 08/29/20 18:59 06:59 18:59 Other: Voiding Method Toilet Diaper # Voids 1 1 - Labs CBC & Chem 7: 08/27/20 19:53 08/27/20 19:53 Labs: Abnormal Lab Results - Last 24 Hours (Table) 08/28/20 08/28/20 08/28/20 Range/Units 12:08 17:10 21:13 POC Glucose (mg/dL) 278 H 358 H 328 H (75-99) mg/dL 08/29/20 08/29/20 Range/Units 02:03 07:38 POC Glucose (mg/dL) 224 H 271 H (75-99) mg/dL Microbiology - Last 24 Hours (Table) 08/27/20 19:53 Urine Culture - Preliminary Urine,Voided Gram Neg Bacilli
[2020-08-29] MEDS ORDERED: DOBUTamine DRIP for NUC MED 500 MG in DEXTROSE/WATER 1 250ML.BAG IV PRN (10:28)
--- NOTE | 2020-08-29 11:17 | P.PN ---
Subjective Progress Note Date: 08/29/20 Aminta Sheikh, is a 55-year-old female who presented to [facility] emergency room with a chief complaint of chest pain, pelvic pain, and vaginal bleeding she was evaluated in emergency room, her vital examination on presentation revealed a temperature of 100.6 pulse 94 respiration 22 pulse ox 98% on room air, her white blood count was 5.4 hemoglobin 13.1 platelet count 244 sodium 134 potassium 3.9 chloride 101 CO2 23 glucose 487, urine analysis revealed evidence of urinary tract infection. Computed tomography scan of the abdomen and pelvis was done in the emergency room and revealed evidence of vascular calcifications otherwise within normal limits, EKG was done in the emergency room and revealed sinus rhythm with rightward axis and prolonged QT no acute ischemic changes were noted, chest x-ray was done in the emergency room and revealed no acute cardiopulmonary process, patient was admitted to medical floor for further evaluation and treatment, cardiology consultation was requested. Gynecology consultation was requested in regard to pelvic pain and vaginal bleeding, pelvic ultrasound was ordered. Her past medical history is significant for history of coronary artery disease with history of coronary artery bypass graft surgery in 2013 she also has a history of cardiac catheterization with angioplasty and stent placement in June 2020, past medical history also significant for diabetes mellitus, history of hypertension, history of hyperlipidemia, history of bipolar disorder, and history of nicotine dependence. On review of systems patient was seen and examined on the medical floor she is alert and oriented 3 in no apparent distress there is no fever or chills no headache or dizziness no chest pain at this time no shortness of breath no palpitation no cough no nausea or vomiting no abdominal pain no diarrhea no blood in the stools she is having some pelvic pain no burning with urination no frequency or urgency and no hematuria, she stated that she was having some vaginal bleeding over the last 48 hours. On 08/29/2020 patient's alert and oriented 3. Patient is complaining of some nausea and vomiting. Patient was evaluated by AUTOMOTIVE SALES ASSOCIATE and recommending GI consult for possible source of bleeding. Patient denies any further episodes of bleeding. Awaiting hemoglobin for morning labs. Patient denies chest pain or shortness of breath. Patient denies nausea vomiting or diarrhea. Patient denies any urinary burning or frequency. Patient remains on Rocephin for UTI Objective - Vital Signs Vital signs: Vital Signs Temp 97.6 F 08/29/20 07:00 Pulse 61 02/14/21 08:00 Resp 18 08/29/20 08:00 BP 104/64 08/29/20 07:00 Pulse Ox 98 08/29/20 07:42 Intake & Output 08/28/20 08/29/20 08/29/20 18:59 06:59 18:59 Other: Voiding Method Toilet Toilet Diaper Diaper # Voids 1 1 1 - Exam In general patient is alert and oriented 3 in no apparent distress HEENT head normocephalic and atraumatic Neck is supple no JVD no goiter no lymphadenopathy Chest exam reveals a few scattered rhonchi no wheezing Cardiac exam reveals regular heart sounds S1 and S2 no gallops no murmurs Abdomen is soft nontender there is moderate bilateral pelvic tenderness no organomegaly no palpable masses with normal bowel sounds Extremity exam reveals no edema no cyanosis or clubbing Neurological examination reveals no gross focal deficit - Labs CBC & Chem 7: 08/27/20 19:53 08/27/20 19:53 Labs: Abnormal Lab Results - Last 24 Hours (Table) 08/28/20 08/28/20 08/28/20 Range/Units 12:08 17:10 21:13 POC Glucose (mg/dL) 278 H 358 H 328 H (75-99) mg/dL 08/29/20 08/29/20 Range/Units 02:03 07:38 POC Glucose (mg/dL) 224 H 271 H (75-99) mg/dL Microbiology - Last 24 Hours (Table) 08/27/20 19:53 Urine Culture - Preliminary Urine,Voided Gram Neg Bacilli Assessment and Plan Plan: 1. Episode of chest pain, with extensive cardiac history patient is admitted to telemetry floor cardiology consultation was requested. Patient was evaluated by cardiology services acute coronary syndrome has been ruled out with normal troponins. Stress test has been ordered for 08/30/2020 per cardiology 2. Pelvic pain with vaginal bleeding, computed tomography scan of the abdomen and pelvis did not reveal any significant abnormality, pelvic ultrasound was completed showing hysterectomy and bilateral ovaries not visualized no significant abnormality seen. Per AUTOMOTIVE SALES ASSOCIATE recommending GI source for bleeding 3. Underlying history of urinary tract infection patient was started on IV Rocephin awaiting urine culture results 4. Underlying history of diabetes mellitus 5. Underlying history of hypertension 6. Underlying history of coronary artery disease 7. Underlying history of hyperlipidemia 8. Underlying history of depression with bipolar disorder At this time home medication were reviewed and reordered Patient evaluated by cardiology and AUTOMOTIVE SALES ASSOCIATE GI services have been consulted
[2020-08-29 11:48] LABS: African American GFR (CKD) 65.9 (60.0-200.0); Albumin 3.9 g/dL (3.80-4.90); Albumin/Globulin Ratio 2.05 (1.60-3.17); Anion Gap 6.3 mmol/L (4.00-12.00); BUN/Creat Ratio 18.18 Ratio (12.00-20.00); Calcium 8.5 mg/dL (8.7-10.3); Carbon Dioxide 24.7 mmol/L (21.6-31.8); Globulin 1.9 g/dL (1.6-3.3); Non-African American GFR(CKD) 56.9 (60.0-200.0); Potassium 3.4 mmol/L (3.5-5.5); Total Bilirubin 0.2 mg/dL (0.3-1.2); Total Protein 5.8 g/dL (6.2-8.2)
[2020-08-29 11:58] LABS: Basophils # (A) 0.04 X 10*3/uL (0.00-0.10); Eosinophils # (A) 0.09 X 10*3/uL (0.04-0.35); Eosinophils % (A) 2.2 %; HCT 36.9 % (37.2-46.3); HGB 11.9 g/dL (12.0-15.0); Lymphocytes # (A) 0.95 X 10*3/uL (0.90-5.00); Lymphocytes % (A) 23.5 %; MCH 30.4 pg (27.0-32.0); MCHC 32.2 g/dL (32.0-37.0); MCV 94.4 fL (80.0-97.0); Mean Platelet Volume 10.3 fL (9.5-12.2); Monocytes # (A) 0.32 X 10*3/uL (0.20-1.00); Monocytes % (A) 7.9 %; Neutrophils # (A) 2.63 X 10*3/uL (1.80-7.70); Neutrophils % (A) 64.9 %; Platelet Count 227 X 10*3/uL (140-440); RBC 3.91 X 10*6/uL (4.10-5.20); RDW 13.2 % (11.5-14.5); WBC 4.05 X 10*3/uL (4.50-10.00)
[2020-08-29 12:49] LABS: Glucose,Whole Blood 168 mg/dL (75-99)
[2020-08-29] MEDS: FOLIC ACID 1 MG TAB PO SCH (12:54)
[2020-08-29] MEDS: HYDROcodone/APAP 5-325MG 1 EACH TAB PO PRN ×2 (13:00→23:51)
--- NOTE | 2020-08-29 17:14 | CONS ---
CONSULTATION DATE OF SERVICE: 08/29/2020 REQUESTING PHYSICIAN: Dr. Aguilar. REASON FOR CONSULTATION: Rectal bleeding. HISTORY OF PRESENT ILLNESS: The patient is a 55-year-old pleasant white female with history of coronary artery disease, previous angioplasty and CABG, mitral valve replacement, hypertension, hyperlipidemia, admitted to the hospital with chest pain. While in the hospital she was complaining of vaginal bleeding. She had DATA MODELING SPECIALIST evaluation and was seen by Dr. Trinidad yesterday. Apparently she did have examination and was told that it is not vaginal in source. Because of the suspicion for rectal bleeding, GI is consulted. The patient in fact was seen by Dr. Brewer 2 weeks ago and she underwent a colonoscopy by him on August 11 that revealed diverticulosis and small internal hemorrhoids with no evidence of colorectal neoplasia. The patient denies any constipation. She does complain of intermittent lower abdominal pain. No nausea, no vomiting. PAST MEDICAL HISTORY: Significant for coronary artery disease, hypertension, hyperlipidemia, degenerative joint disease, COPD, hypertension, diabetes mellitus, hypothyroidism, musculoskeletal disorder. PAST SURGICAL HISTORY: Bladder surgery, cholecystectomy, CABG, cardiac catheterization, hysterectomy, appendectomy, and bladder surgery and mitral valve replacement in 2017. MEDICATIONS: Medications at home include NovoLog, Imdur, Synthroid, Lopressor, Remeron, Seroquel, Ranexa, Zoloft, Restoril, Keppra, Imodium, [place], Abilify, Lipitor. ALLERGIES: GABAPENTIN AND SHELL FISH. SOCIAL HISTORY: Chronic smoker. No alcohol use. FAMILY HISTORY: Father with coronary artery disease. REVIEW OF SYSTEMS: CARDIOPULMONARY: No chest pain or shortness of breath. GENITOURINARY: No dysuria or hematuria. MUSCULOSKELETAL: Unremarkable. SKIN: Unremarkable. ENDOCRINE: Unremarkable. PSYCHIATRIC: Unremarkable. ENT/VISION: Unremarkable. CONSTITUTIONAL: No recent weight loss. No fever, chills, night sweats. PHYSICAL EXAMINATION: GENERAL: She appears comfortable. No apparent distress. VITAL SIGNS: Stable. Blood pressure is 122/85, pulse rate 61, temperature 97.6. HEENT: Examination unremarkable. Conjunctivae are pink. Sclerae anicteric. Oral cavity no lesions. NECK: No JVD or lymph node enlargement. CHEST: Chest was clear to auscultation. HEART: Regular rate and rhythm. ABDOMEN: Soft. Bowel sounds are positive. No organomegaly. EXTREMITIES: No pedal edema. SKIN: No rashes. NEUROLOGIC: Alert and oriented x3. No focal deficits. LABS: Labs done yesterday show WBC 5.4, hemoglobin 13.1, platelets normal. PT/INR is within normal limits. Basic metabolic panel is within normal limits. IMPRESSION: 1. Possible rectal bleeding for the last few days duration. Initially, there was a concern of vaginal bleeding. She was seen by DATA MODELING SPECIALIST and did not think it is vaginal source. The patient did have a colonoscopy for intermittent rectal bleeding on August [address] Brewer and was noted to have internal hemorrhoids and diverticulosis. Clinically no active bleeding as per the nursing staff. Hemoglobin stable at 13 g/dL. 2. History of chest pain. Cardiology following the patient closely. 3. History of coronary artery disease status post coronary artery bypass grafting. 4. History of mitral valve replacement. 5. History of hypertension and hyperlipidemia. 6. History of diabetes mellitus. RECOMMENDATIONS: 1. We will start her on MiraLAX for constipation which could be causing bleeding from internal hemorrhoids. 2. No plans on repeat endoscopy at the present time. 3. Monitor CBC daily. 4. Continue with symptomatic and supportive care. 5. We will follow with you closely. Thank you for this consultation. MMODL / IJN: [id number] /
[2020-08-29 17:22] LABS: Glucose,Whole Blood 224 mg/dL (75-99)
[2020-08-29 20:58] LABS: Glucose,Whole Blood 222 mg/dL (75-99)
[2020-08-29] MEDS: QUEtiapine 50 MG TAB PO SCH (22:11)
[2020-08-29] MEDS: ARIPiprazole 5 MG TAB PO SCH (22:13)
[2020-08-29] MEDS: MIRTAZAPINE 45 MG TABLET PO SCH (22:14)
[2020-08-29] MEDS: MEROPENEM 500 MG in SODIUM CHLORIDE 0.9% 100 ML IVPB SCH (23:41)
[2020-08-30] MEDS: LEVOTHYROXINE 88 MCG TAB PO SCH (06:16)
[2020-08-30 07:15] LABS: Glucose,Whole Blood 113 mg/dL (75-99)
[2020-08-30] MEDS: INSULIN ASPART (NovoLOG) 100 UNIT/ML VIAL SQ SCH ×4 (10:53→20:16)
[2020-08-30] MEDS: INSULIN DETEMIR (LEVEMIR) 100 UNIT/ML SYR SQ SCH ×2 (11:03→21:17)
[2020-08-30] MEDS: TICAGRELOR 90 MG TAB PO SCH ×2 (11:04→20:09)
[2020-08-30] MEDS: RANOLAZINE 500 MG TAB.ER.12H PO SCH ×2 (11:04→20:09)
[2020-08-30] MEDS: CALCIUM CARBONATE 500 MG CHEWABLE PO SCH (11:05)
[2020-08-30] MEDS: SODIUM BICARBONATE TAB 650 MG TAB PO SCH ×2 (11:05→20:08)
[2020-08-30] MEDS: ISOSORBIDE MONONITRATE ER 30 MG TAB.ER.24H PO SCH (11:05)
[2020-08-30] MEDS: ASPIRIN 81 MG PO SCH (11:05)
[2020-08-30] MEDS: PANTOPRAZOLE 40 MG TABLET PO SCH (11:05)
[2020-08-30] MEDS: ATORVASTATIN 80 MG TAB PO SCH (11:05)
[2020-08-30] MEDS: METOPROLOL TARTRATE 25 MG TAB PO SCH ×2 (11:05→20:08)
[2020-08-30] MEDS: SERTRALINE 50 MG TAB PO SCH (11:05)
[2020-08-30] MEDS: FERROUS SULFATE 325 MG TAB PO SCH ×2 (11:05→20:08)
[2020-08-30] MEDS: MEROPENEM 500 MG in SODIUM CHLORIDE 0.9% 100 ML IVPB SCH ×2 (11:06→17:26)
[2020-08-30] MEDS: levETIRAcetam 500 MG TAB PO SCH ×2 (11:06→20:08)
[2020-08-30] MEDS: FOLIC ACID 1 MG TAB PO SCH (11:06)
[2020-08-30] MEDS: polyethylene glycoL 3350 17 GM POWD.PACK PO SCH (11:07)
[2020-08-30 11:44] LABS: Glucose,Whole Blood 175 mg/dL (75-99)
[2020-08-30 13:06] LABS: African American GFR (CKD) >90 (>60 ml/min/1.73 sqM); Anion Gap 22 mmol/L; Blood Urea Nitrogen 21 mg/dL (7-17); Calcium 9.2 mg/dL (8.4-10.2); Carbon Dioxide 21 mmol/L (22-30); Chloride 108 mmol/L (98-107); Glucose 194 mg/dL (74-99); Non-African American GFR(CKD) 78 (>60 ml/min/1.73 sqM); Sodium 151 mmol/L (137-145)
[2020-08-30 13:17] LABS: HGB 13.6 gm/dL (11.4-16.0); MCH 31.9 pg (25.0-35.0); MCHC 34.1 g/dL (31.0-37.0); MCV 93.6 fL (80.0-100.0); Platelet Count 267 k/uL (150-450); RBC 4.27 m/uL (3.80-5.40); RDW 13.7 % (11.5-15.5); WBC 6.8 k/uL (3.8-10.6)
[2020-08-30] MEDS: SODIUM CHLORIDE 0.45% 1,000 ML IV SCH (13:32)
[2020-08-30] MEDS: HYDROcodone/APAP 5-325MG 1 EACH TAB PO PRN ×2 (13:36→20:16)
--- NOTE | 2020-08-30 13:36 | P.PN ---
Subjective Progress Note Date: 08/30/20 Aminta Sheikh, is a 55-year-old female who presented to [facility] emergency room with a chief complaint of chest pain, pelvic pain, and vaginal bleeding she was evaluated in emergency room, her vital examination on presentation revealed a temperature of 100.6 pulse 94 respiration 22 pulse ox 98% on room air, her white blood count was 5.4 hemoglobin 13.1 platelet count 244 sodium 134 potassium 3.9 chloride 101 CO2 23 glucose 487, urine analysis revealed evidence of urinary tract infection. Computed tomography scan of the abdomen and pelvis was done in the emergency room and revealed evidence of vascular calcifications otherwise within normal limits, EKG was done in the emergency room and revealed sinus rhythm with rightward axis and prolonged QT no acute ischemic changes were noted, chest x-ray was done in the emergency room and revealed no acute cardiopulmonary process, patient was admitted to medical floor for further evaluation and treatment, cardiology consultation was requested. Gynecology consultation was requested in regard to pelvic pain and vaginal bleeding, pelvic ultrasound was ordered. Her past medical history is significant for history of coronary artery disease with history of coronary artery bypass graft surgery in 2013 she also has a history of cardiac catheterization with angioplasty and stent placement in June 2020, past medical history also significant for diabetes mellitus, history of hypertension, history of hyperlipidemia, history of bipolar disorder, and history of nicotine dependence. On review of systems patient was seen and examined on the medical floor she is alert and oriented 3 in no apparent distress there is no fever or chills no headache or dizziness no chest pain at this time no shortness of breath no palpitation no cough no nausea or vomiting no abdominal pain no diarrhea no blood in the stools she is having some pelvic pain no burning with urination no frequency or urgency and no hematuria, she stated that she was having some vaginal bleeding over the last 48 hours. On 08/29/2020 patient's alert and oriented 3. Patient is complaining of some nausea and vomiting. Patient was evaluated by [facility] and recommending GI consult for possible source of bleeding. Patient denies any further episodes of bleeding. Awaiting hemoglobin for morning labs. Patient denies chest pain or shortness of breath. Patient denies nausea vomiting or diarrhea. Patient denies any urinary burning or frequency. Patient remains on Rocephin for UTI On 08/30/2020 patient was seen and examined on the medical floor she is alert and oriented 3 in no apparent distress, her sodium has increased to 151 her potassium today is 5.0 urine culture is positive for E. coli MDRO ESBL more than 100,000 colonies, antibiotics were switched last night from Rocephin to meropenem, consultation for infectious disease was initiated, patient is still seen some blood in her briefs, she is not sure whether it's coming from the vagina or from her rectal area, input from gastroenterology and from gynecology reviewed, hemoglobin is stable no plans for any further testing at this time, IV fluids were switched to 0.45 at 75 mL an hour, antibiotics were switched to meropenem, will recheck labs and follow-up in a.m.. Objective - Vital Signs Vital signs: Vital Signs Temp 97.6 F 08/30/20 07:00 Pulse 68 08/30/20 08:00 Resp 17 08/30/20 08:00 BP 138/79 08/30/20 07:00 Pulse Ox 99 08/30/20 07:00 Intake & Output 08/29/20 08/30/20 08/30/20 18:59 06:59 18:59 Intake Total 300 Balance 300 Intake: Oral 300 Other: Voiding Method Toilet Toilet Toilet Diaper Diaper Diaper # Voids 1 1 - Exam In general patient is alert and oriented 3 in no apparent distress HEENT head normocephalic and atraumatic Neck is supple no JVD no goiter no lymphadenopathy Chest exam reveals a few scattered rhonchi no wheezing Cardiac exam reveals regular heart sounds S1 and S2 no gallops no murmurs Abdomen is soft nontender there is moderate bilateral pelvic tenderness no organomegaly no palpable masses with normal bowel sounds Extremity exam reveals no edema no cyanosis or clubbing Neurological examination reveals no gross focal deficit - Labs CBC & Chem 7: 08/30/20 12:14 08/30/20 12:14 Labs: Abnormal Lab Results - Last 24 Hours (Table) 08/29/20 08/29/20 08/30/20 Range/Units 17:20 20:57 07:13 Sodium (137-145) mmol/L Chloride (98-107) mmol/L Carbon Dioxide (22-30) mmol/L BUN (7-17) mg/dL Glucose (74-99) mg/dL POC Glucose (mg/dL) 224 H 222 H 113 H (75-99) mg/dL 08/30/20 08/30/20 Range/Units 11:43 12:14 Sodium 151 H (137-145) mmol/L Chloride 108 H (98-107) mmol/L Carbon Dioxide 21 L (22-30) mmol/L BUN 21 H (7-17) mg/dL Glucose 194 H (74-99) mg/dL POC Glucose (mg/dL) 175 H (75-99) mg/dL Microbiology - Last 24 Hours (Table) 08/27/20 19:53 Urine Culture - Final Urine,Voided Escherichia coli Assessment and Plan Plan: 1. Episode of chest pain, with extensive cardiac history patient is admitted to telemetry floor cardiology consultation was requested. Patient was evaluated by cardiology services acute coronary syndrome has been ruled out with normal troponins. Stress test has been ordered for 08/30/2020 per cardiology 2. Pelvic pain with vaginal bleeding, computed tomography scan of the abdomen and pelvis did not reveal any significant abnormality, pelvic ultrasound was completed showing hysterectomy and bilateral ovaries not visualized no significant abnormality seen. Per [facility] recommending GI source for bleeding 3. Underlying history of urinary tract infection patient was started on IV Rocephin awaiting urine culture results 4. Underlying history of diabetes mellitus 5. Underlying history of hypertension 6. Underlying history of coronary artery disease 7. Underlying history of hyperlipidemia 8. Underlying history of depression with bipolar disorder At this time home medication were reviewed and reordered Patient evaluated by cardiology and [facility] GI services have been consulted
--- NOTE | 2020-08-30 14:48 | P.CONS ---
History of Present Illness - Reason for Consult Consult date: 08/30/20 ESBL Ecoli - History of Present Illness HISTORY OF PRESENT ILLNESS This is a 55-year-old female patient presented to the hospital with bilateral lower abdominal pain and chest pain. She also states she's had some dysuria, nausea and vomiting and left flank pain. She complains of a little bit of a cough. No fever or chills. Patient has been worked up by other consultants including cardiology, [facility] and GI. Urinalysis revealed leukoesterase moderate, WBCs 34. Urine culture is positive for ESBL E. coli. Patient is on meropenem. She presented with temperature 100.6 otherwise has been afebrile. Heart rate 68, blood pressure 138/79, pulse ox 99% on room air. No leukocytosis. Creatinine 0.85. Caronavirus PCR not detected. REVIEW OF SYSTEMS Constitutional: No fever, no chills, no night sweats. No weight change. No weakness, fatigue or lethargy. EENT: No headache. No nasal drainage or congestion. No epistaxis. No sore throat. Lungs: No shortness of breath, cough, no sputum production. No wheezing. Cardiovascular: Reports chest pain, no lower extremity edema. No lightheadedness or dizziness. No syncopal episodes. Abdominal: Reports abdominal pain. Reports nausea, reports vomiting. No diarrhea. No constipation. No loss of appetite. Genitourinary: Reports dysuria, increased frequency, urgency. No urinary retention. Musculoskeletal: No myalgias. No muscle weakness. Integumentary: No wounds, no lesions. No rash or pruritus. Neurologic: No aphasia. No facial droop. No change in mentation. PHYSICAL EXAMINATION Gen: This is a 55-year-old female. Patient is resting on the edge of the bed and appears to be comfortable. HEENT: Head is atraumatic, normocephalic. Pupils equal, round. Sclerae is anicteric. NECK: Supple. No JVD. No lymphadenopathy. No thyromegaly. LUNGS: Clear to auscultation. No wheezes or rhonchi. No intercostal retractions. HEART: Regular rate and rhythm. Systolic murmur. ABDOMEN: Soft. Bowel sounds are present. No masses. No tenderness. EXTREMITIES: No pedal edema. No calf tenderness. Joint deformities to fingers and toes. NEUROLOGICAL: Patient is awake, alert and oriented x3. Cranial nerves 2 through 12 are grossly intact. ASSESSMENT ESBL E. coli urinary tract infection PLAN Continue meropenem Recommendations will be made close to discharge regarding antibiotics in the outpatient arena. The above dictated assessment and findings were discussed with Dr. Gilbert. The impression and plan of care have been directed as dictated. Jennifer Rodrigues nurse practitioner acting as scribe for Dr. Gilbert. Past Medical History Past Medical History: Coronary Artery Disease (CAD), Chest Pain / Angina, COPD, CVA/TIA, Diabetes Mellitus, GI Bleed, Hyperlipidemia, Hypertension, Myocardial Infarction ([place]), Musculoskeletal Disorder, Pneumonia, Thyroid Disorder Additional Past Medical History / Comment(s): MS,cva x4 last one 2016. Last Myocardial Infarction Date:: 2015 History of Any Multi-Drug Resistant Organisms: None Reported Past Surgical History: Appendectomy, Bladder Surgery, Cholecystectomy, Coronary Bypass/CABG, Heart Catheterization, Heart Catheterization With Stent, Hysterectomy Additional Past Surgical History / Comment(s): CABG in 2013, Mitral valve on 2016, Heart Stent x 30, bilateral leg stent Past Anesthesia/Blood Transfusion Reactions: No Reported Reaction Date of Last Stent Placement:: 06/25/20 Past Psychological History: Anxiety, Bipolar Smoking Status: Current every day smoker Past Alcohol Use History: None Reported Past Drug Use History: None Reported - Past Family History Father Family Medical History: Coronary Artery Disease (CAD) Additional Family Medical History / Comment(s): heart disease Medications and Allergies Home Medications Medication Instructions Recorded Confirmed Type ARIPiprazole [Abilify] 5 mg PO HS 05/21/20 08/27/20 History Atorvastatin [Lipitor] 80 mg PO DAILY 05/21/20 08/27/20 History Calcium Carbonate [Calcium] 600 mg PO DAILY 05/21/20 08/27/20 History Cyclobenzaprine [Flexeril] 10 mg PO TID PRN 05/21/20 08/27/20 History Ferrous Sulfate [Iron (65 MG 325 mg PO BID 05/21/20 08/27/20 History Elemental)] Folic Acid 1 mg PO DAILY 05/21/20 08/27/20 History INSULIN ASPART (NovoLOG) [NovoLOG See Protocol SQ ACHS 05/21/20 08/27/20 History (formulary)] Isosorbide Mononitrate ER [Imdur] 30 mg PO DAILY 05/21/20 08/27/20 History Levothyroxine Sodium [Synthroid] 175 mcg PO DAILY 05/21/20 08/27/20 History Metoprolol Tartrate [Lopressor] 25 mg PO BID 05/21/20 08/27/20 History Mirtazapine [Remeron] 45 mg PO HS 05/21/20 08/27/20 History QUEtiapine [SEROquel] 50 mg PO HS 05/21/20 08/27/20 History Ranolazine [Ranexa] 1,000 mg PO BID 05/21/20 08/27/20 History Sertraline [Zoloft] 50 mg PO DAILY 05/21/20 08/27/20 History hydrOXYzine pamoate [Vistaril] 25 mg PO TID PRN 05/21/20 08/27/20 History levETIRAcetam [Keppra] 500 mg PO BID 05/21/20 08/27/20 History Loperamide [Imodium] 2 mg PO QID PRN 06/08/20 08/27/20 History Nitroglycerin Sl Tabs [Nitrostat] 0.4 mg SUBLINGUAL Q5M PRN 90 Days 06/27/20 08/27/20 Rx #100 tab Ticagrelor [Brilinta] 90 mg PO BID tab 06/27/20 08/27/20 Rx Insulin Glargine,Hum.rec.anlog 30 unit SQ BID #0 07/14/20 08/27/20 Rx [Lantus Solostar] Pantoprazole [Protonix] 40 mg PO AC-BRKFST 30 Days #30 07/14/20 08/27/20 Rx tablet. Sodium Bicarbonate Tab 650 mg PO BID 30 Days #60 tab 07/14/20 08/27/20 Rx Lidocaine 5% Patch [Lidoderm 5% 1 - 2 patch TOPICAL DAILY@1300 PRN 07/20/20 08/27/20 History Patch] Aspirin 81 mg PO DAILY chew 08/20/20 08/27/20 Rx lisinopriL [Zestril] 2.5 mg PO DAILY tab 08/20/20 08/27/20 Rx HYDROcodone/APAP 5-325MG [[place] 1 tab PO TID PRN 08/27/20 08/27/20 History 5-325] Allergies Allergy/AdvReac Type Severity Reaction Status Date / Time gabapentin Allergy Anaphylaxis Verified 08/27/20 21:35 shellfish derived [Crab] Allergy Rash/Hives Verified 08/27/20 21:35 Physical Exam Vitals: Vital Signs Temp Pulse Resp BP Pulse Ox 08/30/20 07:00 97.6 F 68 17 138/79 99 08/30/20 02:00 98.3 F 58 L 18 131/66 97 08/29/20 22:10 97.6 F 65 18 136/79 99 08/29/20 15:00 97.8 F 67 16 107/69 100 08/29/20 13:46 16 Intake and Output 08/29/20 08/30/20 08/30/20 22:59 06:59 14:59 Intake Total 300 Balance 300 Intake: Oral 300 Other: Voiding Method Toilet Toilet Diaper Diaper # Voids 1 1 Results CBC & Chem 7: 08/30/20 12:14 08/30/20 12:14 Labs: Abnormal Lab Results - Last 24 Hours (Table) 08/29/20 08/29/20 08/29/20 Range/Units 06:33 06:33 12:48 WBC 4.05 L (4.50-10.00) X 10*3/uL RBC 3.91 L (4.10-5.20) X 10*6/uL Hgb 11.9 L (12.0-15.0) g/dL Hct 36.9 L (37.2-46.3) % Potassium 3.4 L (3.5-5.5) mmol/L Est GFR (CKD-EPI)NonAf 56.9 L (60.0-200.0) Glucose 280 H (70-110) mg/dL POC Glucose (mg/dL) 168 H (75-99) mg/dL Calcium 8.5 L (8.7-10.3) mg/dL Total Bilirubin 0.2 L (0.3-1.2) mg/dL Total Protein 5.8 L (6.2-8.2) g/dL 08/29/20 08/29/20 08/30/20 Range/Units 17:20 20:57 07:13 WBC (4.50-10.00) X 10*3/uL RBC (4.10-5.20) X 10*6/uL Hgb (12.0-15.0) g/dL Hct (37.2-46.3) % Potassium (3.5-5.5) mmol/L Est GFR (CKD-EPI)NonAf (60.0-200.0) Glucose (70-110) mg/dL POC Glucose (mg/dL) 224 H 222 H 113 H (75-99) mg/dL Calcium (8.7-10.3) mg/dL Total Bilirubin (0.3-1.2) mg/dL Total Protein (6.2-8.2) g/dL Microbiology - Last 24 Hours (Table) 08/27/20 19:53 Urine Culture - Final Urine,Voided Escherichia coli
--- NOTE | 2020-08-30 16:18 | P.PN ---
Subjective Progress Note Date: 08/30/20 Principal diagnosis: Rectal Bleeding This is a pleasant 55-year-old white female who came in with complaints of vaginal and rectal bleeding. She was recently hospitalized and found to have vaginal bleeding, was seen by [facility] for evaluation. She underwent a colonoscopy 2 weeks ago with have revealed diverticulosis and small internal hemorrhoids with no evidence of colorectal neoplasia. She states she has lower abdominal discomfort, no sharp pain, no nausea or vomiting. She is being treated for urinary tract infection. Objective - Vital Signs Vital signs: Vital Signs Temp 98.3 F 08/30/20 15:00 Pulse 60 08/30/20 15:00 Resp 16 08/30/20 15:00 BP 136/73 08/30/20 15:00 Pulse Ox 98 08/30/20 15:00 Intake & Output 08/29/20 08/30/20 08/30/20 18:59 06:59 18:59 Intake Total 480 Balance 480 Intake: Oral 480 Other: Voiding Method Toilet Toilet Toilet Diaper Diaper Diaper # Voids 1 1 1 - Exam General appearance: The patient is alert, oriented, appears in no acute distress. HET: Head is normocephalic and atraumatic. Conjunctiva pink. Sclera anicteric. Neck: Supple without lymphadenopathy. Abdomen: Soft, nontender, nondistended with bowel sounds. No guarding or rigidity. Extremities: Normal skin color and turgor. No pedal edema Skin: No rashes, no jaundice Neurological: No focal deficits. Alert and oriented 3. - Labs CBC & Chem 7: 08/30/20 12:14 08/30/20 12:14 Labs: Abnormal Lab Results - Last 24 Hours (Table) 08/29/20 08/29/20 08/30/20 Range/Units 17:20 20:57 07:13 Sodium (137-145) mmol/L Chloride (98-107) mmol/L Carbon Dioxide (22-30) mmol/L BUN (7-17) mg/dL Glucose (74-99) mg/dL POC Glucose (mg/dL) 224 H 222 H 113 H (75-99) mg/dL 08/30/20 08/30/20 Range/Units 11:43 12:14 Sodium 151 H (137-145) mmol/L Chloride 108 H (98-107) mmol/L Carbon Dioxide 21 L (22-30) mmol/L BUN 21 H (7-17) mg/dL Glucose 194 H (74-99) mg/dL POC Glucose (mg/dL) 175 H (75-99) mg/dL Microbiology - Last 24 Hours (Table) 08/27/20 19:53 Urine Culture - Final Urine,Voided Escherichia coli Assessment and Plan (1) Rectal bleeding Narrative/Plan: This lady came in with complaints of possible rectal bleeding for the last few days duration. Initially there was a concern of vaginal bleeding. She was seen by [facility] and did not think it was vaginal source. The patient did have a colonoscopy for intermittent rectal bleeding on August [address] Garcia was noted to have internal hemorrhoids and diverticulosis. Clinically no active bleeding as per the nursing staff. Hemoglobin remained stable at 13.8. Current Visit: No Status: Acute Code(s): K62.5 - HEMORRHAGE OF ANUS AND RECTUM SNOMED Code(s): 66592365 (2) Chest pain Narrative/Plan: Patient has a history of coronary artery disease status post coronary artery bypass grafting. Cardiology is following patient closely Current Visit: Yes Status: Acute Code(s): R07.9 - CHEST PAIN, UNSPECIFIED SNOMED Code(s): 47277549 (3) UTI (urinary tract infection) Narrative/Plan: Continue Recommended antibiotics as ordered Current Visit: Yes Status: Acute Code(s): N39.0 - URINARY TRACT INFECTION, SITE NOT SPECIFIED SNOMED Code(s): 40281372 Plan: 1. Continue MiraLAX for constipation 2. No plans on repeat endoscopy at the present time 3. May continue to monitor CBC daily 4. Continue symptomatic supportive care Thank you for this consultation we will sign off at this time. Dr. David Fuentes I agree with the dictator's note, documented as a scribe by Maria Alejandra Manzanares.
[2020-08-30 16:57] LABS: Glucose,Whole Blood 264 mg/dL (75-99)
[2020-08-30] MEDS: QUEtiapine 50 MG TAB PO SCH (20:08)
[2020-08-30] MEDS: ARIPiprazole 5 MG TAB PO SCH (20:08)
[2020-08-30] MEDS: MIRTAZAPINE 45 MG TABLET PO SCH (20:08)
[2020-08-30 20:13] LABS: Glucose,Whole Blood 270 mg/dL (75-99)
[2020-08-30 23:29] LABS: Appearance,Urine Clear (Clear); Bilirubin,Urine Negative (Negative); Blood,Urine Negative (Negative); Color,Urine Yellow; Glucose,Urine (UA) 3+ (Negative); Ketones,Urine Negative (Negative); Leukocyte Esterase,Urine Small (Negative); Nitrite,Urine Negative (Negative); Protein,Urine 1+ (Negative); RBC,Urine 2 /hpf (0-5); Specific Gravity,Urine 1.027 (1.001-1.035); Squamous Epithelial Cell,Urine 3 /hpf (0-4); Urobilinogen,Urine <2.0 mg/dL (<2.0); WBC,Urine 17 /hpf (0-5)
[2020-08-31] MEDS: MEROPENEM 500 MG in SODIUM CHLORIDE 0.9% 100 ML IVPB SCH ×4 (00:25→23:28)
[2020-08-31] MEDS: SODIUM CHLORIDE 0.45% 1,000 ML IV SCH ×2 (03:59→19:33)
[2020-08-31] MEDS: LEVOTHYROXINE 88 MCG TAB PO SCH (05:47)
[2020-08-31 07:10] LABS: Glucose,Whole Blood 198 mg/dL (75-99)
[2020-08-31] MEDS: INSULIN DETEMIR (LEVEMIR) 100 UNIT/ML SYR SQ SCH ×2 (08:25→20:50)
[2020-08-31] MEDS: INSULIN ASPART (NovoLOG) 100 UNIT/ML VIAL SQ SCH ×4 (08:26→21:01)
[2020-08-31] MEDS: PANTOPRAZOLE 40 MG TABLET PO SCH (08:27)
[2020-08-31] MEDS: CALCIUM CARBONATE 500 MG CHEWABLE PO SCH (08:27)
[2020-08-31] MEDS: ISOSORBIDE MONONITRATE ER 30 MG TAB.ER.24H PO SCH (08:27)
[2020-08-31] MEDS: ASPIRIN 81 MG PO SCH (08:27)
[2020-08-31] MEDS: SODIUM BICARBONATE TAB 650 MG TAB PO SCH ×2 (08:27→20:49)
[2020-08-31] MEDS: METOPROLOL TARTRATE 25 MG TAB PO SCH ×2 (08:27→20:49)
[2020-08-31] MEDS: SERTRALINE 50 MG TAB PO SCH (08:27)
[2020-08-31] MEDS: FOLIC ACID 1 MG TAB PO SCH (08:27)
[2020-08-31] MEDS: FERROUS SULFATE 325 MG TAB PO SCH ×2 (08:27→20:49)
[2020-08-31] MEDS: ATORVASTATIN 80 MG TAB PO SCH (08:28)
[2020-08-31] MEDS: polyethylene glycoL 3350 17 GM POWD.PACK PO SCH (08:28)
[2020-08-31] MEDS: levETIRAcetam 500 MG TAB PO SCH ×2 (08:28→20:50)
[2020-08-31] MEDS: TICAGRELOR 90 MG TAB PO SCH ×2 (08:31→20:49)
[2020-08-31] MEDS: RANOLAZINE 500 MG TAB.ER.12H PO SCH ×2 (08:32→20:49)
[2020-08-31] MEDS: HYDROcodone/APAP 5-325MG 1 EACH TAB PO PRN ×2 (08:37→20:49)
[2020-08-31 11:41] LABS: Glucose,Whole Blood 110 mg/dL (75-99)
[2020-08-31 11:49] LABS: Basophils # (A) 0.03 X 10*3/uL (0.00-0.10); Basophils % (A) 0.7 %; Eosinophils # (A) 0.07 X 10*3/uL (0.04-0.35); Eosinophils % (A) 1.7 %; HCT 36.6 % (37.2-46.3); HGB 11.6 g/dL (12.0-15.0); Lymphocytes % (A) 33.9 %; MCH 30.7 pg (27.0-32.0); MCHC 31.7 g/dL (32.0-37.0); MCV 96.8 fL (80.0-97.0); Mean Platelet Volume 10.5 fL (9.5-12.2); Monocytes # (A) 0.24 X 10*3/uL (0.20-1.00); Monocytes % (A) 5.8 %; Neutrophils # (A) 2.36 X 10*3/uL (1.80-7.70); Neutrophils % (A) 57.2 %; Platelet Count 227 X 10*3/uL (140-440); RBC 3.78 X 10*6/uL (4.10-5.20); RDW 13.5 % (11.5-14.5); WBC 4.13 X 10*3/uL (4.50-10.00)
[2020-08-31 12:13] LABS: Albumin 3.6 g/dL (3.80-4.90); Albumin/Globulin Ratio 2.57 (1.60-3.17); Anion Gap 9.3 mmol/L (4.00-12.00); Calcium 8.3 mg/dL (8.7-10.3); Carbon Dioxide 21.7 mmol/L (21.6-31.8); Globulin 1.4 g/dL (1.6-3.3); Non-African American GFR(CKD) 63.8 (60.0-200.0); Potassium 3.9 mmol/L (3.5-5.5); Total Bilirubin 0.1 mg/dL (0.2-1.2)
--- NOTE | 2020-08-31 16:16 | PN ---
PROGRESS NOTE DATE OF SERVICE: 08/31/2020 REASON FOR FOLLOWUP: ESBL E coli urinary tract infection. INTERVAL HISTORY: The patient is currently afebrile. Patient is breathing comfortably. Patient denies having any chest pain or any cough. No abdominal pain. Urinary symptoms have slightly decreased intensity. PHYSICAL EXAMINATION: Blood pressure 143/76, pulse of 65, temperature 98.1. She is 100% on room air. General description is a middle-aged female up in the bed in no distress. RESPIRATORY SYSTEM: Unlabored breathing, clear to auscultation anteriorly. HEART: S1, S2. Regular rate and rhythm. ABDOMEN: Soft, no tenderness. LABS: Hemoglobin 11.6, white count 4.13. BUN of 21, creatinine 1.0. DIAGNOSTIC IMPRESSION AND PLAN: Patient with ESBL Escherichia coli urinary tract infection, possible cystitis, infection. She will continue with IV meropenem with a dose of Invanz to monitor, finish a 3-day course of therapy. Questions and concerns were answered. Will hold discharge today. MMODL / IJN: [id number] /
[2020-08-31 16:47] LABS: Glucose,Whole Blood 132 mg/dL (75-99)
--- NOTE | 2020-08-31 17:21 | P.PN ---
Subjective Progress Note Date: 08/31/20 Aminta Sheikh, is a 55-year-old female who presented to [facility] emergency room with a chief complaint of chest pain, pelvic pain, and vaginal bleeding she was evaluated in emergency room, her vital examination on presentation revealed a temperature of 100.6 pulse 94 respiration 22 pulse ox 98% on room air, her white blood count was 5.4 hemoglobin 13.1 platelet count 244 sodium 134 potassium 3.9 chloride 101 CO2 23 glucose 487, urine analysis revealed evidence of urinary tract infection. Computed tomography scan of the abdomen and pelvis was done in the emergency room and revealed evidence of vascular calcifications otherwise within normal limits, EKG was done in the emergency room and revealed sinus rhythm with rightward axis and prolonged QT no acute ischemic changes were noted, chest x-ray was done in the emergency room and revealed no acute cardiopulmonary process, patient was admitted to medical floor for further evaluation and treatment, cardiology consultation was requested. Gynecology consultation was requested in regard to pelvic pain and vaginal bleeding, pelvic ultrasound was ordered. Her past medical history is significant for history of coronary artery disease with history of coronary artery bypass graft surgery in 2013 she also has a history of cardiac catheterization with angioplasty and stent placement in June 2020, past medical history also significant for diabetes mellitus, history of hypertension, history of hyperlipidemia, history of bipolar disorder, and history of nicotine dependence. On review of systems patient was seen and examined on the medical floor she is alert and oriented 3 in no apparent distress there is no fever or chills no headache or dizziness no chest pain at this time no shortness of breath no palpitation no cough no nausea or vomiting no abdominal pain no diarrhea no blood in the stools she is having some pelvic pain no burning with urination no frequency or urgency and no hematuria, she stated that she was having some vaginal bleeding over the last 48 hours. On 08/29/2020 patient's alert and oriented 3. Patient is complaining of some nausea and vomiting. Patient was evaluated by CALCINER OPERATOR and recommending GI consult for possible source of bleeding. Patient denies any further episodes of bleeding. Awaiting hemoglobin for morning labs. Patient denies chest pain or shortness of breath. Patient denies nausea vomiting or diarrhea. Patient denies any urinary burning or frequency. Patient remains on Rocephin for UTI On 08/30/2020 patient was seen and examined on the medical floor she is alert and oriented 3 in no apparent distress, her sodium has increased to 151 her potassium today is 5.0 urine culture is positive for E. coli MDRO ESBL more than 100,000 colonies, antibiotics were switched last night from Rocephin to meropenem, consultation for infectious disease was initiated, patient is still seen some blood in her briefs, she is not sure whether it's coming from the vagina or from her rectal area, input from gastroenterology and from gynecology reviewed, hemoglobin is stable no plans for any further testing at this time, IV fluids were switched to 0.45 at 75 mL an hour, antibiotics were switched to meropenem, will recheck labs and follow-up in a.m.. On 08/31/2020 patient was seen and examined on the medical floor she is alert and oriented 3 in no distress there is no fever or chills no headache or dizziness no chest pain no shortness of breath no cough no nausea or vomiting no abdominal pain no diarrhea no blood in the stools she has some burning with urination and frequency, no hematuria . Patient has urinary tract infection with ESBL E. coli at this point recommendation from Dr. Gilbert is to continue meropenem for 3 days possible discharge to home tomorrow Objective - Vital Signs Vital signs: Vital Signs Temp 98.1 F 08/31/20 15:12 Pulse 65 08/31/20 15:12 Resp 16 08/31/20 15:12 BP 143/76 08/31/20 15:12 Pulse Ox 100 08/31/20 15:12 Intake & Output 08/30/20 08/31/20 08/31/20 18:59 06:59 18:59 Intake Total 702 100 622 Balance 702 100 622 Intake: Intake, IV Titration 100 Amount Meropenem 500 mg In 100 Sodium Chloride 0.9% 100 ml @ 33.3 mls/hr IVPB Q8HR [facility] Rx#:[id number] Oral 702 622 Other: Voiding Method Toilet Toilet Toilet Diaper Diaper Diaper # Voids 1 1 1 - Exam In general patient is alert and oriented 3 in no apparent distress HEENT head normocephalic and atraumatic Neck is supple no JVD no goiter no lymphadenopathy Chest exam reveals a few scattered rhonchi no wheezing Cardiac exam reveals regular heart sounds S1 and S2 no gallops no murmurs Abdomen is soft nontender there is moderate bilateral pelvic tenderness no organomegaly no palpable masses with normal bowel sounds Extremity exam reveals no edema no cyanosis or clubbing Neurological examination reveals no gross focal deficit - Labs CBC & Chem 7: 08/31/20 04:33 08/31/20 04:33 Labs: Abnormal Lab Results - Last 24 Hours (Table) 08/30/20 08/30/20 08/31/20 Range/Units 20:11 21:00 04:33 WBC 4.13 L (4.50-10.00) X 10*3/uL RBC 3.78 L (4.10-5.20) X 10*6/uL Hgb 11.6 L (12.0-15.0) g/dL Hct 36.6 L (37.2-46.3) % MCHC 31.7 L (32.0-37.0) g/dL BUN/Creatinine Ratio (12.00-20.00) Ratio Glucose (70-110) mg/dL POC Glucose (mg/dL) 270 H (75-99) mg/dL Calcium (8.7-10.3) mg/dL Total Bilirubin (0.2-1.2) mg/dL Total Protein (6.2-8.2) g/dL Albumin (3.80-4.90) g/dL Globulin (1.6-3.3) g/dL Urine Protein 1+ H (Negative) Urine Glucose (UA) 3+ H (Negative) Ur Leukocyte Esterase Small H (Negative) Urine WBC 17 H (0-5) /hpf 08/31/20 08/31/20 08/31/20 Range/Units 04:33 07:08 11:40 WBC (4.50-10.00) X 10*3/uL RBC (4.10-5.20) X 10*6/uL Hgb (12.0-15.0) g/dL Hct (37.2-46.3) % MCHC (32.0-37.0) g/dL BUN/Creatinine Ratio 21.00 H (12.00-20.00) Ratio Glucose 234 H (70-110) mg/dL POC Glucose (mg/dL) 198 H 110 H (75-99) mg/dL Calcium 8.3 L (8.7-10.3) mg/dL Total Bilirubin 0.1 L (0.2-1.2) mg/dL Total Protein 5.0 L (6.2-8.2) g/dL Albumin 3.60 L (3.80-4.90) g/dL Globulin 1.4 L (1.6-3.3) g/dL Urine Protein (Negative) Urine Glucose (UA) (Negative) Ur Leukocyte Esterase (Negative) Urine WBC (0-5) /hpf 08/31/20 Range/Units 16:45 WBC (4.50-10.00) X 10*3/uL RBC (4.10-5.20) X 10*6/uL Hgb (12.0-15.0) g/dL Hct (37.2-46.3) % MCHC (32.0-37.0) g/dL BUN/Creatinine Ratio (12.00-20.00) Ratio Glucose (70-110) mg/dL POC Glucose (mg/dL) 132 H (75-99) mg/dL Calcium (8.7-10.3) mg/dL Total Bilirubin (0.2-1.2) mg/dL Total Protein (6.2-8.2) g/dL Albumin (3.80-4.90) g/dL Globulin (1.6-3.3) g/dL Urine Protein (Negative) Urine Glucose (UA) (Negative) Ur Leukocyte Esterase (Negative) Urine WBC (0-5) /hpf Microbiology - Last 24 Hours (Table) 08/30/20 21:00 Urine Culture - Preliminary Urine,Voided Assessment and Plan Plan: 1. Episode of chest pain, with extensive cardiac history patient is admitted to telemetry floor cardiology consultation was requested. Patient was evaluated by cardiology services acute coronary syndrome has been ruled out with normal troponins. Stress test has been ordered for 08/30/2020 per cardiology 2. Pelvic pain with vaginal bleeding, computed tomography scan of the abdomen and pelvis did not reveal any significant abnormality, pelvic ultrasound was completed showing hysterectomy and bilateral ovaries not visualized no significant abnormality seen. Per CALCINER OPERATOR recommending GI source for bleeding 3. Underlying history of urinary tract infection , urine culture positive for E. coli ESBL patient is maintained on meropenem recommendation by Dr. Gilbert to give for 3 days 4. Underlying history of diabetes mellitus 5. Underlying history of hypertension 6. Underlying history of coronary artery disease 7. Underlying history of hyperlipidemia 8. Underlying history of depression with bipolar disorder At this time home medication were reviewed and reordered Patient evaluated by cardiology and CALCINER OPERATOR GI services have been consulted
[2020-08-31 20:49] LABS: Glucose,Whole Blood 217 mg/dL (75-99)
[2020-08-31] MEDS: QUEtiapine 50 MG TAB PO SCH (20:49)
[2020-08-31] MEDS: MIRTAZAPINE 45 MG TABLET PO SCH (20:49)
[2020-08-31] MEDS: ARIPiprazole 5 MG TAB PO SCH (21:01)
[2020-09-01] MEDS: SODIUM CHLORIDE 0.45% 1,000 ML IV SCH (05:42)
[2020-09-01] MEDS: LEVOTHYROXINE 88 MCG TAB PO SCH (05:42)
[2020-09-01 07:16] LABS: Glucose,Whole Blood 100 mg/dL (75-99)
[2020-09-01 07:22] VITALS: RESP 16
[2020-09-01] MEDS: INSULIN DETEMIR (LEVEMIR) 100 UNIT/ML SYR SQ SCH (08:40)
[2020-09-01] MEDS: MEROPENEM 500 MG in SODIUM CHLORIDE 0.9% 100 ML IVPB SCH (08:40)
[2020-09-01] MEDS: levETIRAcetam 500 MG TAB PO SCH (08:41)
[2020-09-01] MEDS: CALCIUM CARBONATE 500 MG CHEWABLE PO SCH (08:41)
[2020-09-01] MEDS: SODIUM BICARBONATE TAB 650 MG TAB PO SCH (08:41)
[2020-09-01] MEDS: ISOSORBIDE MONONITRATE ER 30 MG TAB.ER.24H PO SCH (08:41)
[2020-09-01] MEDS: FERROUS SULFATE 325 MG TAB PO SCH (08:41)
[2020-09-01] MEDS: RANOLAZINE 500 MG TAB.ER.12H PO SCH (08:41)
[2020-09-01] MEDS: FOLIC ACID 1 MG TAB PO SCH (08:41)
[2020-09-01] MEDS: SERTRALINE 50 MG TAB PO SCH (08:41)
[2020-09-01] MEDS: PANTOPRAZOLE 40 MG TABLET PO SCH (08:42)
[2020-09-01] MEDS: TICAGRELOR 90 MG TAB PO SCH (08:42)
[2020-09-01] MEDS: ATORVASTATIN 80 MG TAB PO SCH (08:42)
[2020-09-01] MEDS: METOPROLOL TARTRATE 25 MG TAB PO SCH (08:42)
[2020-09-01] MEDS: ASPIRIN 81 MG PO SCH (08:42)
[2020-09-01] MEDS: INSULIN ASPART (NovoLOG) 100 UNIT/ML VIAL SQ SCH ×2 (08:43→11:59)
[2020-09-01] MEDS: polyethylene glycoL 3350 17 GM POWD.PACK PO SCH (08:43)
[2020-09-01] MEDS: HYDROcodone/APAP 5-325MG 1 EACH TAB PO PRN (08:47)
[2020-09-01] MEDS ORDERED: ERTAPENEM 1 GM in SODIUM CHLORIDE 0.9% 50 ML IVPB SCH (10:00)
[2020-09-01 11:33] LABS: ALT 16 U/L (4-34); African American GFR (CKD) 84 (>60 ml/min/1.73 sqM); Albumin 3.4 g/dL (3.5-5.0); Albumin/Globulin Ratio 1.4; Anion Gap 7 mmol/L; Blood Urea Nitrogen 22 mg/dL (7-17); Calcium 8.7 mg/dL (8.4-10.2); Carbon Dioxide 26 mmol/L (22-30); Chloride 105 mmol/L (98-107); Globulin 2.4 g/dL; Glucose 195 mg/dL (74-99); Non-African American GFR(CKD) 73 (>60 ml/min/1.73 sqM); Sodium 138 mmol/L (137-145); Total Bilirubin 0.5 mg/dL (0.2-1.3); Total Protein 5.8 g/dL (6.3-8.2)
[2020-09-01 11:36] LABS: AST 27 U/L (14-36); Alkaline Phosphatase 62 U/L (38-126); Potassium 4.9 mmol/L (3.5-5.1)
[2020-09-01 11:49] LABS: Basophils % (A) 0 %; Eosinophils # (A) 0.1 k/uL (0-0.7); Eosinophils % (A) 1 %; HGB 12.5 gm/dL (11.4-16.0); Lymphocytes # (A) 1.1 k/uL (1.0-4.8); Lymphocytes % (A) 19 %; MCH 31.4 pg (25.0-35.0); MCV 95.1 fL (80.0-100.0); Mean Platelet Volume 8.1; Monocytes # (A) 0.3 k/uL (0-1.0); Monocytes % (A) 5 %; Neutrophils # (A) 4.1 k/uL (1.3-7.7); Neutrophils % (A) 73 %; Platelet Count 194 k/uL (150-450); RBC 3.99 m/uL (3.80-5.40); RDW 14.2 % (11.5-15.5); WBC 5.7 k/uL (3.8-10.6)
[2020-09-01 11:58] LABS: Glucose,Whole Blood 266 mg/dL (75-99)
--- NOTE | 2020-09-01 13:09 | P.DS ---
Providers Date of admission: 08/30/20 14:48 Expected date of discharge: 09/01/20 Attending physician: Jerson Aguilar Consults: 08/27/20 22:01 Consult Physician Urgent Consulting Provider: Elier Murillo Consult Reason/Comments: chest pain Do you want consulting provider notified?: Yes 08/28/20 12:05 Consult Physician Routine Consulting Provider: Abiel Vargas Consult Reason/Comments: vaginal bleeding Do you want consulting provider notified?: Yes 08/29/20 23:26 Consult Physician Routine Consulting Provider: Carrington Gilbert Consult Reason/Comments: ESBL Do you want consulting provider notified?: Yes Primary care physician: Jerson Aguilar [facility] Course: Discharge diagnosis 1. Episode of chest pain, with extensive cardiac history patient is admitted to telemetry floor cardiology consultation was requested. Patient was evaluated by cardiology services acute coronary syndrome has been ruled out with normal troponins. Stress test has been ordered for 08/30/2020 per cardiology 2. Pelvic pain with vaginal bleeding, computed tomography scan of the abdomen and pelvis did not reveal any significant abnormality, pelvic ultrasound was completed showing hysterectomy and bilateral ovaries not visualized no significant abnormality seen. Per ORDER TO DELIVERY SUPERVISOR recommending GI source for bleeding. Patient was evaluated by GI services continue MiraLAX for constipation no plans for endoscopic study at this time 3. Underlying history of urinary tract infection , urine culture positive for E. coli ESBL patient is maintained on meropenem recommendation by Dr. Gilbert to give for 3 days. Patient has been cleared for discharge from infectious disease standpoint will be DC'd on Macrobid 4. Underlying history of diabetes mellitus 5. Underlying history of hypertension 6. Underlying history of coronary artery disease 7. Underlying history of hyperlipidemia 8. Underlying history of depression with bipolar disorder Hospital course Aminta Sheikh, is a 55-year-old female who presented to [facility] emergency room with a chief complaint of chest pain, pelvic pain, and vaginal bleeding she was evaluated in emergency room, her vital examination on presentation revealed a temperature of 100.6 pulse 94 respiration 22 pulse ox 98% on room air, her white blood count was 5.4 hemoglobin 13.1 platelet count 244 sodium 134 potassium 3.9 chloride 101 CO2 23 glucose 487, urine analysis revealed evidence of urinary tract infection. Computed tomography scan of the abdomen and pelvis was done in the emergency room and revealed evidence of vascular calcifications otherwise within normal limits, EKG was done in the emergency room and revealed sinus rhythm with rightward axis and prolonged QT no acute ischemic changes were noted, chest x-ray was done in the emergency room and revealed no acute cardiopulmonary process, patient was admitted to medical floor for further evaluation and treatment, cardiology consultation was requested. Gynecology consultation was requested in regard to pelvic pain and vaginal bleeding, pelvic ultrasound was ordered. Her past medical history is significant for history of coronary artery disease with history of coronary artery bypass graft surgery in 2013 she also has a history of cardiac catheterization with angioplasty and stent placement in June 2020, past medical history also significant for diabetes mellitus, history of hypertension, history of hyperlipidemia, history of bipolar disorder, and history of nicotine dependence. On review of systems patient was seen and examined on the medical floor she is alert and oriented 3 in no apparent distress there is no fever or chills no headache or dizziness no chest pain at this time no shortness of breath no palpitation no cough no nausea or vomiting no abdominal pain no diarrhea no blood in the stools she is having some pelvic pain no burning with urination no frequency or urgency and no hematuria, she stated that she was having some vaginal bleeding over the last 48 hours. On 08/29/2020 patient's alert and oriented 3. Patient is complaining of some nausea and vomiting. Patient was evaluated by ORDER TO DELIVERY SUPERVISOR and recommending GI consult for possible source of bleeding. Patient denies any further episodes of bleeding. Awaiting hemoglobin for morning labs. Patient denies chest pain or shortness of breath. Patient denies nausea vomiting or diarrhea. Patient denies any urinary burning or frequency. Patient remains on Rocephin for UTI On 08/30/2020 patient was seen and examined on the medical floor she is alert and oriented 3 in no apparent distress, her sodium has increased to 151 her potassium today is 5.0 urine culture is positive for E. coli MDRO ESBL more than 100,000 colonies, antibiotics were switched last night from Rocephin to meropenem, consultation for infectious disease was initiated, patient is still seen some blood in her briefs, she is not sure whether it's coming from the vagina or from her rectal area, input from gastroenterology and from gynecology reviewed, hemoglobin is stable no plans for any further testing at this time, IV fluids were switched to 0.45 at 75 mL an hour, antibiotics were switched to meropenem, will recheck labs and follow-up in a.m.. On 08/31/2020 patient was seen and examined on the medical floor she is alert and oriented 3 in no distress there is no fever or chills no headache or dizziness no chest pain no shortness of breath no cough no nausea or vomiting no abdominal pain no diarrhea no blood in the stools she has some burning with urination and frequency, no hematuria . Patient has urinary tract infection with ESBL E. coli at this point recommendation from Dr. Gilbert is to continue meropenem for 3 days possible discharge to home tomorrow On 09/01/2020 patient alert and oriented 3. Discussed case with infectious disease. Patient will receive her third dose of Invanz today and will be DC'd to [facility] facility on Macrobid per ID. Patient denies chest pain or shortness of breath. Patient denies any urinary burning or frequency. Patient denies nausea vomiting or diarrhea Patient Condition at Discharge: Stable Plan - Discharge Summary Discharge Rx Participant: No New Discharge Prescriptions: New Nitrofurantoin Monohyd/M-Cryst [Macrobid] 100 mg PO Q12HR 7 Days #14 cap polyethylene glycoL 3350 [Miralax] 17 gm PO DAILY powd.pack Continue Folic Acid 1 mg PO DAILY Sertraline [Zoloft] 50 mg PO DAILY Ferrous Sulfate [Iron (65 MG Elemental)] 325 mg PO BID Calcium Carbonate [Calcium] 600 mg PO DAILY Ranolazine [Ranexa] 1,000 mg PO BID QUEtiapine [SEROquel] 50 mg PO HS Mirtazapine [Remeron] 45 mg PO HS INSULIN ASPART (NovoLOG) [NovoLOG (formulary)] See Protocol SQ ACHS Metoprolol Tartrate [Lopressor] 25 mg PO BID Levothyroxine Sodium [Synthroid] 175 mcg PO DAILY levETIRAcetam [Keppra] 500 mg PO BID hydrOXYzine pamoate [Vistaril] 25 mg PO TID PRN PRN Reason: Anxiety Isosorbide Mononitrate ER [Imdur] 30 mg PO DAILY Cyclobenzaprine [Flexeril] 10 mg PO TID PRN PRN Reason: Pain Atorvastatin [Lipitor] 80 mg PO DAILY ARIPiprazole [Abilify] 5 mg PO HS Loperamide [Imodium] 2 mg PO QID PRN PRN Reason: Diarrhea Ticagrelor [Brilinta] 90 mg PO BID tab Nitroglycerin Sl Tabs [Nitrostat] 0.4 mg SUBLINGUAL Q5M PRN 90 Days #100 tab PRN Reason: Chest Pain Pantoprazole [Protonix] 40 mg PO AC-BRKFST 30 Days #30 tablet.dr Sodium Bicarbonate Tab 650 mg PO BID 30 Days #60 tab Insulin Glargine,Hum.rec.anlog [Lantus Solostar] 30 unit SQ BID #0 Lidocaine 5% Patch [Lidoderm 5% Patch] 1 - 2 patch TOPICAL DAILY@1300 PRN PRN Reason: lower back pain Aspirin 81 mg PO DAILY chew lisinopriL [Zestril] 2.5 mg PO DAILY tab No Action HYDROcodone/APAP 5-325MG [[place] 5-325] 1 tab PO TID PRN PRN Reason: Pain Discharge Medication List ARIPiprazole [Abilify] 5 mg PO HS 05/21/20 [History] Atorvastatin [Lipitor] 80 mg PO DAILY 05/21/20 [History] Calcium Carbonate [Calcium] 600 mg PO DAILY 05/21/20 [History] Cyclobenzaprine [Flexeril] 10 mg PO TID PRN 05/21/20 [History] Ferrous Sulfate [Iron (65 MG Elemental)] 325 mg PO BID 05/21/20 [History] Folic Acid 1 mg PO DAILY 05/21/20 [History] INSULIN ASPART (NovoLOG) [NovoLOG (formulary)] See Protocol SQ ACHS 05/21/20 [History] Isosorbide Mononitrate ER [Imdur] 30 mg PO DAILY 05/21/20 [History] Levothyroxine Sodium [Synthroid] 175 mcg PO DAILY 05/21/20 [History] Metoprolol Tartrate [Lopressor] 25 mg PO BID 05/21/20 [History] Mirtazapine [Remeron] 45 mg PO HS 05/21/20 [History] QUEtiapine [SEROquel] 50 mg PO HS 05/21/20 [History] Ranolazine [Ranexa] 1,000 mg PO BID 05/21/20 [History] Sertraline [Zoloft] 50 mg PO DAILY 05/21/20 [History] hydrOXYzine pamoate [Vistaril] 25 mg PO TID PRN 05/21/20 [History] levETIRAcetam [Keppra] 500 mg PO BID 05/21/20 [History] Loperamide [Imodium] 2 mg PO QID PRN 06/08/20 [History] Nitroglycerin Sl Tabs [Nitrostat] 0.4 mg SUBLINGUAL Q5M PRN 90 Days #100 tab 06/27/20 [Rx] Ticagrelor [Brilinta] 90 mg PO BID tab 06/27/20 [Rx] Insulin Glargine,Hum.rec.anlog [Lantus Solostar] 30 unit SQ BID #0 07/14/20 [Rx] Pantoprazole [Protonix] 40 mg PO AC-BRKFST 30 Days #30 tablet.dr 07/14/20 [Rx] Sodium Bicarbonate Tab 650 mg PO BID 30 Days #60 tab 07/14/20 [Rx] Lidocaine 5% Patch [Lidoderm 5% Patch] 1 - 2 patch TOPICAL DAILY@1300 PRN 07/20/20 [History] Aspirin 81 mg PO DAILY chew 08/20/20 [Rx] lisinopriL [Zestril] 2.5 mg PO DAILY tab 08/20/20 [Rx] HYDROcodone/APAP 5-325MG [[place] 5-325] 1 tab PO TID PRN 08/27/20 [History] Nitrofurantoin Monohyd/M-Cryst [Macrobid] 100 mg PO Q12HR 7 Days #14 cap 09/01/20 [Rx] polyethylene glycoL 3350 [Miralax] 17 gm PO DAILY powd.pack 09/01/20 [Rx] Follow up Appointment(s)/Referral(s): Jerson Aguilar MD [Primary Care Provider] - 1-2 days
[2020-09-01 14:20] VITALS: BP 144/70; PULSE 62; TEMP 98
--- NOTE | 2020-09-01 14:27 | PN ---
PROGRESS NOTE DATE OF SERVICE: 09/01/2020 REASON FOR FOLLOWUP: ESBL E coli urinary tract infection. INTERVAL HISTORY: The patient is currently afebrile. Patient is breathing comfortably. The patient denies having any chest pain or shortness of breath or cough. The patient's urinary symptoms have improved. No nausea, no vomiting. No abdominal pain and no diarrhea. PHYSICAL EXAMINATION: Blood pressure is 151/79, pulse of 67, temperature 97.4. She is 100% on room air. General description is a middle-aged female up in the chair in no distress. RESPIRATORY SYSTEM: Unlabored breathing, clear to auscultation anteriorly. HEART: S1, S2. Regular rate and rhythm. ABDOMEN: Soft, no tenderness. LABS: Hemoglobin is 12.5, white count 5.7, BUN 22 with 0.90. Repeat culture so far negative. DIAGNOSTIC IMPRESSION AND PLAN: Patient ESBL Escherichia coli urinary tract infection, possible cystitis not clinically infection. Overall infection has been adequately treated. Will recommend short course of oral Macrobid on discharge. Prescription was sent out. MMODL / IJN: [id number] /
== END 2020-09-01 15:06 | DRG 690 ==
LOC: EC 18:55 → 6NMEDSUR 22:18 → OBSVTOIN 08-30 14:48
PROVIDERS: ADMIT Internal Medicine; ATTEND Internal Medicine
DX: N39.0 Urinary tract infection, site not specified (principal); Z16.12 Extended spectrum beta lactamase (ESBL) resistance; B96.20 Unspecified Escherichia coli [E. coli] as the cause of diseases classified elsewhere; E03.9 Hypothyroidism, unspecified; E11.51 Type 2 diabetes mellitus with diabetic peripheral angiopathy without gangrene; E78.5 Hyperlipidemia, unspecified; F17.210 Nicotine dependence, cigarettes, uncomplicated; F31.9 Bipolar disorder, unspecified; F41.9 Anxiety disorder, unspecified; G35 Multiple sclerosis; G89.29 Other chronic pain; I10 Essential (primary) hypertension; I25.10 Atherosclerotic heart disease of native coronary artery without angina pectoris; I25.2 Old myocardial infarction; I49.3 Ventricular premature depolarization; R94.31 Abnormal electrocardiogram [ECG] [EKG]; J44.9 Chronic obstructive pulmonary disease, unspecified; Z20.822 Contact with and (suspected) exposure to COVID-19; K57.90 Diverticulosis of intestine, part unspecified, without perforation or abscess without bleeding; K64.8 Other hemorrhoids; S30.814A Abrasion of vagina and vulva, initial encounter; R07.9 Chest pain, unspecified; R10.2 Pelvic and perineal pain; Z79.02 Long term (current) use of antithrombotics/antiplatelets; Z79.82 Long term (current) use of aspirin; Z79.890 Hormone replacement therapy; Z79.899 Other long term (current) drug therapy; Z82.49 Family history of ischemic heart disease and other diseases of the circulatory system; K59.00 Constipation, unspecified; Z86.73 Personal history of transient ischemic attack (TIA), and cerebral infarction without residual deficits; Z87.440 Personal history of urinary (tract) infections; Z90.710 Acquired absence of both cervix and uterus; Z90.721 Acquired absence of ovaries, unilateral; Z95.1 Presence of aortocoronary bypass graft; Z95.3 Presence of xenogenic heart valve; Z95.5 Presence of coronary angioplasty implant and graft; Z95.828 Presence of other vascular implants and grafts; Z90.49 Acquired absence of other specified parts of digestive tract; M19.90 Unspecified osteoarthritis, unspecified site; Z87.01 Personal history of pneumonia (recurrent); Z87.19 Personal history of other diseases of the digestive system
CPT/HCPCS: 36415; 71046; 74177; 76830; 76856; 80048; 80053; 80061; 80306; 81001; 82009; 83690; 83735; 84484; 85025; 85027; 85610; 85730; 86850; 86900; 86901; 87077; 87086; 87186; 87635; 93005; 94760; 96374; 96375; 99285

== ENCOUNTER 2020-09-13 17:31 | Observation (INO) | payer MEDICARE, OTHER ==
[2020-09-13] MEDS ORDERED: NITROGLYCERIN-D5W PMX 50 MG in DEXTROSE/WATER 1 250ML.BAG IV ONE (17:46)
[2020-09-13 18:15] LABS: Basophils # (A) 0.1 k/uL (0-0.2); Basophils % (A) 1 %; Eosinophils # (A) 0.1 k/uL (0-0.7); Eosinophils % (A) 2 %; HCT 38.5 % (34.0-46.0); HGB 12.5 gm/dL (11.4-16.0); Lymphocytes # (A) 1.2 k/uL (1.0-4.8); Lymphocytes % (A) 22 %; MCH 30.9 pg (25.0-35.0); MCHC 32.6 g/dL (31.0-37.0); MCV 94.7 fL (80.0-100.0); Mean Platelet Volume 7.2; Monocytes # (A) 0.3 k/uL (0-1.0); Monocytes % (A) 5 %; Neutrophils # (A) 3.7 k/uL (1.3-7.7); Neutrophils % (A) 69 %; Platelet Count 249 k/uL (150-450); RBC 4.07 m/uL (3.80-5.40); RDW 13.4 % (11.5-15.5); WBC 5.4 k/uL (3.8-10.6)
[2020-09-13 18:27] LABS: Potassium 4.1 mmol/L (3.5-5.1)
[2020-09-13 18:28] LABS: ALT 23 U/L (4-34); AST 21 U/L (14-36); African American GFR (CKD) >90 (>60 ml/min/1.73 sqM); Albumin 4.1 g/dL (3.5-5.0); Alkaline Phosphatase 99 U/L (38-126); Anion Gap 12 mmol/L; Blood Urea Nitrogen 13 mg/dL (7-17); Calcium 9.2 mg/dL (8.4-10.2); Carbon Dioxide 23 mmol/L (22-30); Chloride 101 mmol/L (98-107); Magnesium 1.8 mg/dL (1.6-2.3); Non-African American GFR(CKD) 88 (>60 ml/min/1.73 sqM); Sodium 136 mmol/L (137-145); Total Bilirubin 0.4 mg/dL (0.2-1.3); Total Protein 6.6 g/dL (6.3-8.2)
[2020-09-13 18:31] LABS: INR 0.9 (<1.2); Partial Thromboplastin Time 22.3 sec (22.0-30.0)
[2020-09-13 18:33] LABS: Glucose 500 mg/dL (74-99)
--- NOTE | 2020-09-13 18:38 | ED ---
General Adult HPI - General Chief complaint: Chest Pain Stated complaint: Chest pain Time Seen by Provider: 09/13/20 17:35 Source: patient, EMS, RN notes reviewed, old records reviewed Mode of arrival: EMS - History of Present Illness Initial comments: This is a 55-year-old able to passout history significant for coronary artery disease. Patient states she's had 30 stents in the past. Patient states she also has high blood pressure and continues to smoke. Patient is a diabetic. Patient states that she started having chest pain since last night and has not let up. Patient states does radiate to her back. Patient states she is mildly short of breath. Patient denies any diaphoresis or nausea or vomiting. Patient states she does have a little epigastric abdominal pain as well. Patient denies any recent fever chills or cough per patient denies any vomiting or diarrhea. Patient denies any headache patient denies numbness weakness. Patient denies any lightheadedness or dizziness. - Related Data Home Medications Medication Instructions Recorded Confirmed ARIPiprazole [Abilify] 5 mg PO HS 05/21/20 09/13/20 Atorvastatin [Lipitor] 80 mg PO DAILY 05/21/20 09/13/20 Calcium Carbonate [Calcium] 600 mg PO DAILY 05/21/20 09/13/20 Cyclobenzaprine [Flexeril] 10 mg PO TID PRN 05/21/20 09/13/20 Ferrous Sulfate [Iron (65 MG 325 mg PO BID 05/21/20 09/13/20 Elemental)] Folic Acid 1 mg PO DAILY 05/21/20 09/13/20 INSULIN ASPART (NovoLOG) [NovoLOG See Protocol SQ [facility] 05/21/20 09/13/20 (formulary)] Isosorbide Mononitrate ER [Imdur] 30 mg PO DAILY 05/21/20 09/13/20 Levothyroxine Sodium [Synthroid] 175 mcg PO DAILY 05/21/20 09/13/20 Metoprolol Tartrate [Lopressor] 25 mg PO BID 05/21/20 09/13/20 Mirtazapine [Remeron] 45 mg PO HS 05/21/20 09/13/20 QUEtiapine [SEROquel] 50 mg PO HS 05/21/20 09/13/20 Ranolazine [Ranexa] 1,000 mg PO BID 05/21/20 09/13/20 Sertraline [Zoloft] 50 mg PO DAILY 05/21/20 09/13/20 hydrOXYzine pamoate [Vistaril] 25 mg PO TID PRN 05/21/20 09/13/20 levETIRAcetam [Keppra] 500 mg PO BID 05/21/20 09/13/20 Loperamide [Imodium] 2 mg PO QID PRN 06/08/20 09/13/20 Lidocaine 5% Patch [Lidoderm 5% 1 - 2 patch TOPICAL DAILY@1300 PRN 07/20/20 09/13/20 Patch] HYDROcodone/APAP 5-325MG [[place] 1 tab PO BID PRN 09/13/20 09/13/20 5-325] Nitroglycerin Sl Tabs [Nitrostat] 0.4 mg SL Q5M PRN 09/13/20 09/13/20 Omeprazole 40 mg PO BID 09/13/20 09/13/20 buPROPion SR [Wellbutrin Sr] 150 mg PO BID 09/13/20 09/13/20 Previous Rx's Medication Instructions Recorded Ticagrelor [Brilinta] 90 mg PO BID tab 06/27/20 Insulin Glargine,Hum.rec.anlog 30 unit SQ BID #0 07/14/20 [Lantus Solostar] Sodium Bicarbonate Tab 650 mg PO BID 30 Days #60 tab 07/14/20 Aspirin 81 mg PO DAILY chew 08/20/20 lisinopriL [Zestril] 2.5 mg PO DAILY tab 08/20/20 Allergies Allergy/AdvReac Type Severity Reaction Status Date / Time gabapentin Allergy Anaphylaxis Verified 09/13/20 19:34 shellfish derived [Crab] Allergy Rash/Hives Verified 09/13/20 19:34 Review of Systems ROS Statement: Those systems with pertinent positive or pertinent negative responses have been documented in the HPI. ROS Other: All systems not noted in ROS Statement are negative. Past Medical History Past Medical History: Coronary Artery Disease (CAD), Chest Pain / Angina, COPD, CVA/TIA, Diabetes Mellitus, GI Bleed, Hyperlipidemia, Hypertension, Myocardial Infarction ([place]), Musculoskeletal Disorder, Pneumonia, Thyroid Disorder Additional Past Medical History / Comment(s): MS,cva x4 last one 2016. Last Myocardial Infarction Date:: 2016 History of Any Multi-Drug Resistant Organisms: ESBL Date of last positivie culture/infection: 08/27/20 MDRO Source:: ESBL URINE Past Surgical History: Appendectomy, Bladder Surgery, Cholecystectomy, Coronary Bypass/CABG, Heart Catheterization, Heart Catheterization With Stent, Hysterectomy Additional Past Surgical History / Comment(s): CABG in 2013, Mitral valve on 2017, Heart Stent x 30, bilateral leg stent Past Anesthesia/Blood Transfusion Reactions: No Reported Reaction Date of Last Stent Placement:: 06/25/20 Past Psychological History: Anxiety, Bipolar Smoking Status: Current every day smoker Past Alcohol Use History: None Reported Past Drug Use History: None Reported - Past Family History Father Family Medical History: Coronary Artery Disease (CAD) Additional Family Medical History / Comment(s): heart disease General Exam - General Exam Comments Initial Comments: GENERAL: Patient is well-developed and well-nourished. Patient is nontoxic and well- hydrated and is in mild distress. ENT: Neck is soft and supple. No significant lymphadenopathy is noted. Oropharynx is clear. Moist mucous membranes. Neck has full range of motion without eliciting any pain. EYES: The sclera were anicteric and conjunctiva were pink and moist. Extraocular movements were intact and pupils were equal round and reactive to light. Eyelids were unremarkable. PULMONARY: Unlabored respirations. Good breath sounds bilaterally. No audible rales rhonchi or wheezing was noted. CARDIOVASCULAR: There is a regular rate and rhythm without any murmurs gallops or rubs. ABDOMEN: Soft and nontender with normal bowel sounds. SKIN: Skin is clear with no lesions or rashes and otherwise unremarkable. NEUROLOGIC: Patient is alert and oriented x3. Cranial nerves II through XII are grossly intact. Motor and sensory are also intact. Normal speech, volume and content. Symmetrical smile. MUSCULOSKELETAL: Normal extremities with adequate strength and full range of motion. LYMPHATICS: No significant lymphadenopathy is noted PSYCHIATRIC: Normal psychiatric evaluation. Course Vital Signs 09/13/20 09/13/20 09/13/20 17:33 18:00 18:25 Temperature 98.7 F Pulse Rate 85 80 Respiratory 17 18 Rate Blood Pressure 162/82 138/93 143/71 O2 Sat by Pulse 99 99 Oximetry 09/13/20 09/13/20 09/13/20 18:31 18:39 18:48 Temperature Pulse Rate Respiratory Rate Blood Pressure 141/73 136/76 139/76 O2 Sat by Pulse Oximetry 09/13/20 19:19 Temperature Pulse Rate 96 Respiratory 20 Rate Blood Pressure 137/72 O2 Sat by Pulse 100 Oximetry Medical Decision Making - Medical Decision Making EKG shows normal sinus rhythm at 85 bpm NV interval 150 QRS is 82 QT interval 390 QTC is 464 per patient's EKG shows no ST segment elevation or depression. Chest x-ray shows no acute abnormality. Patient started on heparin because of her significant chest pain. I spoke with Dr. Aguilar he wanted the patient admitted admitted the patient wrote admitting orders. - Lab Data Result diagrams: 09/13/20 18:04 09/13/20 18:04 Lab Results 09/13/20 09/13/20 09/13/20 Range/Units 18:04 18:04 18:04 WBC 5.4 (3.8-10.6) k/uL RBC 4.07 (3.80-5.40) m/uL Hgb 12.5 (11.4-16.0) gm/dL Hct 38.5 (34.0-46.0) % MCV 94.7 (80.0-100.0) fL MCH 30.9 (25.0-35.0) pg MCHC 32.6 (31.0-37.0) g/dL RDW 13.4 (11.5-15.5) % Plt Count 249 (150-450) k/uL MPV 7.2 Neutrophils % 69 % Lymphocytes % 22 % Monocytes % 5 % Eosinophils % 2 % Basophils % 1 % Neutrophils # 3.7 (1.3-7.7) k/uL Lymphocytes # 1.2 (1.0-4.8) k/uL Monocytes # 0.3 (0-1.0) k/uL Eosinophils # 0.1 (0-0.7) k/uL Basophils # 0.1 (0-0.2) k/uL PT 10.0 (9.0-12.0) sec INR 0.9 (<1.2) APTT 22.3 (22.0-30.0) sec Sodium 136 L (137-145) mmol/L Potassium 4.1 (3.5-5.1) mmol/L Chloride 101 (98-107) mmol/L Carbon Dioxide 23 (22-30) mmol/L Anion Gap 12 mmol/L BUN 13 (7-17) mg/dL Creatinine 0.77 (0.52-1.04) mg/dL Est GFR (CKD-EPI)AfAm >90 (>60 ml/min/1.73 sqM) Est GFR (CKD-EPI)NonAf 88 (>60 ml/min/1.73 sqM) Glucose 500 H (74-99) mg/dL Calcium 9.2 (8.4-10.2) mg/dL Magnesium 1.8 (1.6-2.3) mg/dL Total Bilirubin 0.4 (0.2-1.3) mg/dL AST 21 (14-36) U/L ALT 23 (4-34) U/L Alkaline Phosphatase 99 (38-126) U/L Troponin I (0.000-0.034) ng/mL Total Protein 6.6 (6.3-8.2) g/dL Albumin 4.1 (3.5-5.0) g/dL 09/13/20 Range/Units 18:04 WBC (3.8-10.6) k/uL RBC (3.80-5.40) m/uL Hgb (11.4-16.0) gm/dL Hct (34.0-46.0) % MCV (80.0-100.0) fL MCH (25.0-35.0) pg MCHC (31.0-37.0) g/dL RDW (11.5-15.5) % Plt Count (150-450) k/uL MPV Neutrophils % % Lymphocytes % % Monocytes % % Eosinophils % % Basophils % % Neutrophils # (1.3-7.7) k/uL Lymphocytes # (1.0-4.8) k/uL Monocytes # (0-1.0) k/uL Eosinophils # (0-0.7) k/uL Basophils # (0-0.2) k/uL PT (9.0-12.0) sec INR (<1.2) APTT (22.0-30.0) sec Sodium (137-145) mmol/L Potassium (3.5-5.1) mmol/L Chloride (98-107) mmol/L Carbon Dioxide (22-30) mmol/L Anion Gap mmol/L BUN (7-17) mg/dL Creatinine (0.52-1.04) mg/dL Est GFR (CKD-EPI)AfAm (>60 ml/min/1.73 sqM) Est GFR (CKD-EPI)NonAf (>60 ml/min/1.73 sqM) Glucose (74-99) mg/dL Calcium (8.4-10.2) mg/dL Magnesium (1.6-2.3) mg/dL Total Bilirubin (0.2-1.3) mg/dL AST (14-36) U/L ALT (4-34) U/L Alkaline Phosphatase (38-126) U/L Troponin I <0.012 (0.000-0.034) ng/mL Total Protein (6.3-8.2) g/dL Albumin (3.5-5.0) g/dL Critical Care Time Critical Care Time: Yes Total Critical Care Time: 35 Disposition Clinical Impression: Unstable angina pectoris, Hyperglycemia Disposition: ADMITTED IP TO THIS [facility] Time of Disposition: 19:22
--- NOTE | 2020-09-13 18:58 | XR ---
EXAMINATION TYPE: XR chest 2V DATE OF EXAM: 09/13/2020 COMPARISON: 08/27/2020 HISTORY: Chest pain TECHNIQUE: FINDINGS: Heart and mediastinum are normal. Lungs are clear. Diaphragm is normal. There is cardiac va lve surgery. There are chest leads. There is no pleural effusion. Bony thorax is intact. IMPRESSION: No active cardiopulmonary disease. Normal heart. No change.
[2020-09-13] MEDS ORDERED: ONDANSETRON 4 MG/2 ML VIAL IVP STA (19:22)
[2020-09-13] MEDS ORDERED: MORPHINE SULFATE 4 MG/ML SYRINGE IVP STA (19:22)
[2020-09-13] MEDS ORDERED: NITROGLYCERIN SL TABS 0.4 MG TAB SUBLINGUAL PRN (19:22)
[2020-09-13 19:56] LABS: Glucose,Whole Blood 503 mg/dL (75-99)
[2020-09-13] MEDS ORDERED: INSULIN ASPART (NovoLOG) 100 UNIT/ML VIAL SQ ONE (19:56)
[2020-09-13] MEDS: NITROGLYCERIN OINT 1 INCH/GM PACKET TOPICAL SCH ×2 (20:03→20:05)
[2020-09-13] MEDS ORDERED: NITROGLYCERIN OINT 1 INCH/GM PACKET TOPICAL ONE (20:06)
[2020-09-14] MEDS ORDERED: hydrOXYzine pamoate 25 MG CAP PO PRN (00:28)
[2020-09-14] MEDS ORDERED: NITROGLYCERIN SL TABS 0.4 MG TAB SUBLINGUAL PRN (00:28)
[2020-09-14] MEDS ORDERED: CYCLOBENZAPRINE 10 MG TAB PO PRN (01:20)
[2020-09-14] MEDS: LEVOTHYROXINE 100 MCG TAB PO SCH (05:54)
[2020-09-14] MEDS: HYDROcodone/APAP 5-325MG 1 EACH TAB PO PRN ×2 (05:55→20:40)
[2020-09-14] MEDS: LEVOTHYROXINE 75 MCG TAB PO SCH (05:55)
[2020-09-14 07:40] LABS: Glucose,Whole Blood 234 mg/dL (75-99)
--- NOTE | 2020-09-14 08:39 | P.CRDCN ---
History of Present Illness Consult date: 09/14/20 Chief complaint: Chest pain History of present illness: This is another admission for this 55-year-old female patient with extensive history of coronary artery disease as well as valvular heart disease. She is known to have coronary artery disease and she underwent in the past coronary artery bypass grafting as well as stenting. The last heart catheterization was performed a few weeks ago and that revealed severe triple-vessel CAD was patent ROBLES to LAD and patent stent in the RCA was occluded ramus and occluded left circumflex. She was treated medically at that point. This time she presented to the hospital complaining of chest discomfort and back discomfort. That workup overall came in to be unremarkable and the EKG showed sinus rhythm without any significant ST or T-wave abnormalities and the troponin came in to be unremarkable. Hemodynamically she is a slightly tachycardic and I am going to increase the dose of metoprolol to 50 mg by mouth twice a day. Otherwise she is on maximize medical treatment including oral nitrate. The patient is also known to have valvular heart disease and she underwent in the past mitral valve replacement. The last echocardiogram showed normal left ventricle systolic function was normally functioning bioprosthetic mitral valve prosthesis Past Medical History Past Medical History: Coronary Artery Disease (CAD), Chest Pain / Angina, COPD, CVA/TIA, Diabetes Mellitus, GI Bleed, Hyperlipidemia, Hypertension, Myocardial Infarction ([place]), Musculoskeletal Disorder, Pneumonia, Thyroid Disorder Additional Past Medical History / Comment(s): MS,cva x4 last one 2016. Last Myocardial Infarction Date:: 2016 History of Any Multi-Drug Resistant Organisms: ESBL Date of last positivie culture/infection: 08/27/20 MDRO Source:: ESBL URINE Past Surgical History: Appendectomy, Bladder Surgery, Cholecystectomy, Coronary Bypass/CABG, Heart Catheterization, Heart Catheterization With Stent, Hysterectomy Additional Past Surgical History / Comment(s): CABG in 2013, Mitral valve on 2017, Heart Stent x 30, bilateral leg stent Past Anesthesia/Blood Transfusion Reactions: No Reported Reaction Date of Last Stent Placement:: 06/25/20 Past Psychological History: Anxiety, Bipolar Smoking Status: Current every day smoker Past Alcohol Use History: None Reported Past Drug Use History: None Reported - Past Family History Father Family Medical History: Coronary Artery Disease (CAD) Additional Family Medical History / Comment(s): heart disease Medications and Allergies Home Medications Medication Instructions Recorded Confirmed Type ARIPiprazole [Abilify] 5 mg PO HS 05/21/20 09/13/20 History Atorvastatin [Lipitor] 80 mg PO DAILY 05/21/20 09/13/20 History Calcium Carbonate [Calcium] 600 mg PO DAILY 05/21/20 09/13/20 History Cyclobenzaprine [Flexeril] 10 mg PO TID PRN 05/21/20 09/13/20 History Ferrous Sulfate [Iron (65 MG 325 mg PO BID 05/21/20 09/13/20 History Elemental)] Folic Acid 1 mg PO DAILY 05/21/20 09/13/20 History INSULIN ASPART (NovoLOG) [NovoLOG See Protocol SQ ACHS 05/21/20 09/13/20 History (formulary)] Isosorbide Mononitrate ER [Imdur] 30 mg PO DAILY 05/21/20 09/13/20 History Levothyroxine Sodium [Synthroid] 175 mcg PO DAILY 05/21/20 09/13/20 History Metoprolol Tartrate [Lopressor] 25 mg PO BID 05/21/20 09/13/20 History Mirtazapine [Remeron] 45 mg PO HS 05/21/20 09/13/20 History QUEtiapine [SEROquel] 50 mg PO HS 05/21/20 09/13/20 History Ranolazine [Ranexa] 1,000 mg PO BID 05/21/20 09/13/20 History Sertraline [Zoloft] 50 mg PO DAILY 05/21/20 09/13/20 History hydrOXYzine pamoate [Vistaril] 25 mg PO TID PRN 05/21/20 09/13/20 History levETIRAcetam [Keppra] 500 mg PO BID 05/21/20 09/13/20 History Loperamide [Imodium] 2 mg PO QID PRN 06/08/20 09/13/20 History Ticagrelor [Brilinta] 90 mg PO BID tab 06/27/20 09/13/20 Rx Insulin Glargine,Hum.rec.anlog 30 unit SQ BID #0 07/14/20 09/13/20 Rx [Lantus Solostar] Sodium Bicarbonate Tab 650 mg PO BID 30 Days #60 tab 07/14/20 09/13/20 Rx Lidocaine 5% Patch [Lidoderm 5% 1 - 2 patch TOPICAL DAILY@1300 PRN 07/20/20 09/13/20 History Patch] Aspirin 81 mg PO DAILY chew 08/20/20 09/13/20 Rx lisinopriL [Zestril] 2.5 mg PO DAILY tab 08/20/20 09/13/20 Rx HYDROcodone/APAP 5-325MG [[place] 1 tab PO BID PRN 09/13/20 09/13/20 History 5-325] Nitroglycerin Sl Tabs [Nitrostat] 0.4 mg SL Q5M PRN 09/13/20 09/13/20 History Omeprazole 40 mg PO BID 09/13/20 09/13/20 History buPROPion SR [Wellbutrin Sr] 150 mg PO BID 09/13/20 09/13/20 History Allergies Allergy/AdvReac Type Severity Reaction Status Date / Time gabapentin Allergy Anaphylaxis Verified 09/13/20 19:34 shellfish derived [Crab] Allergy Rash/Hives Verified 09/13/20 19:34 Physical Exam Vitals: Vital Signs Temp Pulse Pulse Resp BP BP Pulse Ox 09/14/20 08:02 16 09/14/20 07:11 98.4 F 78 12 115/67 94 L 09/14/20 02:00 98.5 F 81 16 125/76 95 09/13/20 20:55 82 16 135/68 99 09/13/20 19:19 96 20 137/72 100 09/13/20 18:48 139/76 09/13/20 18:39 136/76 09/13/20 18:31 141/73 09/13/20 18:25 80 18 143/71 99 09/13/20 18:00 138/93 09/13/20 17:33 98.7 F 85 17 162/82 99 Intake and Output 09/13/20 09/14/20 09/14/20 22:59 06:59 14:59 Intake Total 241.4 Balance 241.4 Intake: Intake, IV Titration 1.4 Amount Nitroglycerin-D5w Pmx 50 1.4 mg In Dextrose/Water 1 250ml.bag @ 5 MCG/MIN 1.5 mls/hr IV .Q24H ONE Rx#: [id number] Oral 240 Other: Voiding Method Toilet # Voids 1 1 Weight 74.843 kg - Constitutional General appearance: no acute distress - Respiratory Respiratory: bilateral: CTA - Cardiovascular Rhythm: regular Heart sounds: normal: S1, S2 Results 09/13/20 18:04 09/13/20 18:04 Cardiac Enzymes 09/13/20 09/13/20 09/13/20 Range/Units 18:04 18:04 20:29 AST 21 (14-36) U/L Troponin I <0.012 <0.012 (0.000-0.034) ng/mL 09/13/20 Range/Units 23:28 AST (14-36) U/L Troponin I <0.012 (0.000-0.034) ng/mL Coagulation 09/13/20 Range/Units 18:04 PT 10.0 (9.0-12.0) sec APTT 22.3 (22.0-30.0) sec CBC 09/13/20 Range/Units 18:04 WBC 5.4 (3.8-10.6) k/uL RBC 4.07 (3.80-5.40) m/uL Hgb 12.5 (11.4-16.0) gm/dL Hct 38.5 (34.0-46.0) % Plt Count 249 (150-450) k/uL Comprehensive Metabolic Panel 09/13/20 Range/Units 18:04 Sodium 136 L (137-145) mmol/L Potassium 4.1 (3.5-5.1) mmol/L Chloride 101 (98-107) mmol/L Carbon Dioxide 23 (22-30) mmol/L BUN 13 (7-17) mg/dL Creatinine 0.77 (0.52-1.04) mg/dL Glucose 500 H (74-99) mg/dL Calcium 9.2 (8.4-10.2) mg/dL AST 21 (14-36) U/L ALT 23 (4-34) U/L Alkaline Phosphatase 99 (38-126) U/L Total Protein 6.6 (6.3-8.2) g/dL Albumin 4.1 (3.5-5.0) g/dL Current Medications Generic Name Dose Route Start Last Admin Trade Name Freq PRN Reason Stop Dose Admin Hydrocodone Bitart/Acetaminophen 1 each 09/14/20 01:00 09/14/20 05:55 Hydrocodone/Apap 5-325mg 1 Each Tab PO 1 each BID PRN Administration Pain Aripiprazole 5 mg 09/14/20 21:00 Aripiprazole 5 Mg Tab PO [facility] Aspirin 325 mg 09/14/20 09:00 Aspirin 325 Mg Tab PO DAILY [facility] Aspirin 81 mg 09/14/20 09:00 Aspirin 81 Mg PO DAILY [facility] Atorvastatin Calcium 80 mg 09/14/20 09:00 Atorvastatin 80 Mg Tab PO DAILY [facility] Bupropion HCl 150 mg 09/14/20 09:00 Bupropion Sr 150 Mg Tablet.Er PO BID [facility] Calcium Carbonate/Glycine 500 mg 09/14/20 09:00 Calcium Carbonate 500 Mg Chewable PO DAILY [facility] Cyclobenzaprine HCl 10 mg 09/14/20 01:20 Cyclobenzaprine 10 Mg Tab PO TID PRN Pain Ferrous Sulfate 325 mg 09/14/20 09:00 Ferrous Sulfate 325 Mg Tab PO BID [facility] Folic Acid 1 mg 09/14/20 09:00 Folic Acid 1 Mg Tab PO DAILY [facility] Hydroxyzine Pamoate 25 mg 09/14/20 00:28 Hydroxyzine Pamoate 25 Mg Cap PO TID PRN Anxiety Insulin Aspart 0 unit 09/14/20 12:30 Insulin Aspart (Novolog) 100 Unit/Ml Vial SQ ACHS [facility] Protocol Insulin Detemir 30 unit 09/14/20 09:00 Insulin Detemir (Levemir) 100 Unit/Ml Syr SQ BID [facility] Isosorbide Mononitrate 30 mg 09/14/20 09:00 Isosorbide Mononitrate Er 30 Mg Tab.Er.24h PO DAILY [facility] Levetiracetam 500 mg 09/14/20 09:00 Levetiracetam 500 Mg Tab PO BID [facility] Levothyroxine Sodium 100 mcg 09/14/20 06:30 09/14/20 05:54 Levothyroxine 100 Mcg Tab PO 100 mcg DAILY@0630 [facility] Administration Levothyroxine Sodium 75 mcg 09/14/20 06:30 09/14/20 05:55 Levothyroxine 75 Mcg Tab PO 75 mcg DAILY@0630 [facility] Administration Lisinopril 2.5 mg 09/14/20 09:00 Lisinopril 2.5 Mg Tab PO DAILY [facility] Loperamide HCl 2 mg 09/14/20 09:00 Loperamide 2 Mg Cap PO QID PRN Diarrhea Mirtazapine 45 mg 09/14/20 21:00 Mirtazapine 45 Mg Tablet PO HS [facility] Nitroglycerin 0.4 mg 09/13/20 19:22 Nitroglycerin Sl Tabs 0.4 Mg Tab SUBLINGUAL Q5M PRN Chest Pain Nitroglycerin 1 inch 09/14/20 00:00 09/13/20 20:05 Nitroglycerin Oint 1 Inch/Gm Packet TOPICAL 1 inch Q6HR [facility] Administration Nitroglycerin 0.4 mg 09/14/20 00:28 Nitroglycerin Sl Tabs 0.4 Mg Tab SUBLINGUAL Q5M PRN Chest Pain Pantoprazole Sodium 40 mg 09/14/20 09:00 Pantoprazole 40 Mg Tablet PO BID [facility] Quetiapine Fumarate 50 mg 09/14/20 21:00 Quetiapine 50 Mg Tab PO HS [facility] Ranolazine 1,000 mg 09/14/20 09:00 Ranolazine 500 Mg Tab.Er.12h PO BID [facility] Sertraline HCl 50 mg 09/14/20 09:00 Sertraline 50 Mg Tab PO DAILY [facility] Sodium Bicarbonate 650 mg 09/14/20 09:00 Sodium Bicarbonate Tab 650 Mg Tab PO BID [facility] Ticagrelor 90 mg 09/14/20 09:00 Ticagrelor 90 Mg Tab PO BID [facility] Intake and Output 09/13/20 09/14/20 09/14/20 22:59 06:59 14:59 Intake Total 241.4 Balance 241.4 Intake: Intake, IV Titration 1.4 Amount Nitroglycerin-D5w Pmx 50 1.4 mg In Dextrose/Water 1 250ml.bag @ 5 MCG/MIN 1.5 mls/hr IV .Q24H ONE Rx#: [id number] Oral 240 Other: Voiding Method Toilet # Voids 1 1 Weight 74.843 kg 09/13/20 18:04 09/13/20 18:04 Assessment and Plan Assessment: Assessment #1 chest discomfort #2 extensive coronary artery disease #3 valvular heart disease #4 multiple comorbid conditions Plan #1 acute coronary event was ruled out #2 I would increase the dose of beta janay with metoprolol #3 possible discharge in the next 24 hours
[2020-09-14] MEDS ORDERED: ASPIRIN 325 MG TAB PO SCH (09:00)
[2020-09-14] MEDS ORDERED: METOPROLOL TARTRATE 25 MG TAB PO SCH (09:00)
[2020-09-14] MEDS ORDERED: LOPERAMIDE 2 MG CAP PO PRN (09:00)
[2020-09-14] MEDS: PANTOPRAZOLE 40 MG TABLET PO SCH ×2 (09:13→20:39)
[2020-09-14] MEDS: CALCIUM CARBONATE 500 MG CHEWABLE PO SCH (09:13)
[2020-09-14] MEDS: levETIRAcetam 500 MG TAB PO SCH ×2 (09:13→20:39)
[2020-09-14] MEDS: ISOSORBIDE MONONITRATE ER 30 MG TAB.ER.24H PO SCH (09:13)
[2020-09-14] MEDS: METOPROLOL TARTRATE 50 MG TAB PO SCH ×2 (09:13→20:39)
[2020-09-14] MEDS: FERROUS SULFATE 325 MG TAB PO SCH ×2 (09:13→20:38)
[2020-09-14] MEDS: ATORVASTATIN 80 MG TAB PO SCH (09:13)
[2020-09-14] MEDS: SODIUM BICARBONATE TAB 650 MG TAB PO SCH ×2 (09:13→20:40)
[2020-09-14] MEDS: FOLIC ACID 1 MG TAB PO SCH (09:14)
[2020-09-14] MEDS: INSULIN DETEMIR (LEVEMIR) 100 UNIT/ML SYR SQ SCH ×2 (09:14→20:45)
[2020-09-14] MEDS: INSULIN ASPART (NovoLOG) 100 UNIT/ML VIAL SQ SCH ×4 (09:14→20:38)
[2020-09-14] MEDS: SERTRALINE 50 MG TAB PO SCH (09:20)
[2020-09-14] MEDS: ASPIRIN 81 MG PO SCH (09:20)
[2020-09-14 09:24] LABS: Chol/HDL Ratio 3.64
[2020-09-14] MEDS: buPROPion SR 150 MG TABLET.ER PO SCH ×2 (09:43→20:38)
[2020-09-14] MEDS: RANOLAZINE 500 MG TAB.ER.12H PO SCH ×2 (09:43→20:40)
[2020-09-14] MEDS: TICAGRELOR 90 MG TAB PO SCH ×2 (09:43→20:40)
[2020-09-14 11:29] LABS: Glucose,Whole Blood 123 mg/dL (75-99)
--- NOTE | 2020-09-14 13:15 | P.HPIM ---
History of Present Illness H&P Date: 09/14/20 Chief Complaint: Chest pain Aminta Sheikh, is a 55-year-old female who presented to [facility] emergency room with a chief complaint of chest pain. Patient describes a pressure sensation in the middle of her chest radiating to the back. Patient was evaluated in emergency room, vital examination on presentation revealed a temperature of 98.7 pulse 85 respiration 17 blood pressure 162/82 pulse ox 99% on room air Laboratory data revealed a white blood count of 5.4 hemoglobin 12.5 platelet count 249 sodium 136 glucose 500 BUN 13 creatinine 0.77 troponin level 0.012 Hope virus PCR was negative cholesterol was elevated at 251. Chest x-ray done on presentation revealed no active cardiopulmonary disease, EKG done on presentation revealed normal sinus rhythm normal EKG. Patient was admitted to telemetry floor for further evaluation and treatment c ardiology consultation was requested. Her past medical history is significant for extensive coronary artery disease with history of coronary artery bypass graft surgery in 2013, history of cardiac catheterization with angioplasty and stent placement in June 2020, history of diabetes mellitus, history of hypertension, history of hyperlipidemia, history of bipolar disorder, and history of nicotine dependence. Past Medical History Past Medical History: Coronary Artery Disease (CAD), Chest Pain / Angina, COPD, CVA/TIA, Diabetes Mellitus, GI Bleed, Hyperlipidemia, Hypertension, Myocardial Infarction (OR), Musculoskeletal Disorder, Pneumonia, Thyroid Disorder Additional Past Medical History / Comment(s): MS,cva x4 last one 2016. Last Myocardial Infarction Date:: 2016 History of Any Multi-Drug Resistant Organisms: ESBL Date of last positivie culture/infection: 08/27/20 MDRO Source:: ESBL URINE Past Surgical History: Appendectomy, Bladder Surgery, Cholecystectomy, Coronary Bypass/CABG, Heart Catheterization, Heart Catheterization With Stent, Hysterectomy Additional Past Surgical History / Comment(s): CABG in 2013, Mitral valve on 2017, Heart Stent x 30, bilateral leg stent Past Anesthesia/Blood Transfusion Reactions: No Reported Reaction Date of Last Stent Placement:: 06/25/20 Past Psychological History: Anxiety, Bipolar Smoking Status: Current every day smoker Past Alcohol Use History: None Reported Past Drug Use History: None Reported - Past Family History Father Family Medical History: Coronary Artery Disease (CAD) Additional Family Medical History / Comment(s): heart disease Medications and Allergies Home Medications Medication Instructions Recorded Confirmed Type ARIPiprazole [Abilify] 5 mg PO HS 05/21/20 09/13/20 History Atorvastatin [Lipitor] 80 mg PO DAILY 05/21/20 09/13/20 History Calcium Carbonate [Calcium] 600 mg PO DAILY 05/21/20 09/13/20 History Cyclobenzaprine [Flexeril] 10 mg PO TID PRN 05/21/20 09/13/20 History Ferrous Sulfate [Iron (65 MG 325 mg PO BID 05/21/20 09/13/20 History Elemental)] Folic Acid 1 mg PO DAILY 05/21/20 09/13/20 History INSULIN ASPART (NovoLOG) [NovoLOG See Protocol SQ ACHS 05/21/20 09/13/20 History (formulary)] Isosorbide Mononitrate ER [Imdur] 30 mg PO DAILY 05/21/20 09/13/20 History Levothyroxine Sodium [Synthroid] 175 mcg PO DAILY 05/21/20 09/13/20 History Metoprolol Tartrate [Lopressor] 25 mg PO BID 05/21/20 09/13/20 History Mirtazapine [Remeron] 45 mg PO HS 05/21/20 09/13/20 History QUEtiapine [SEROquel] 50 mg PO HS 05/21/20 09/13/20 History Ranolazine [Ranexa] 1,000 mg PO BID 05/21/20 09/13/20 History Sertraline [Zoloft] 50 mg PO DAILY 05/21/20 09/13/20 History hydrOXYzine pamoate [Vistaril] 25 mg PO TID PRN 05/21/20 09/13/20 History levETIRAcetam [Keppra] 500 mg PO BID 05/21/20 09/13/20 History Loperamide [Imodium] 2 mg PO QID PRN 06/08/20 09/13/20 History Ticagrelor [Brilinta] 90 mg PO BID tab 06/27/20 09/13/20 Rx Insulin Glargine,Hum.rec.anlog 30 unit SQ BID #0 07/14/20 09/13/20 Rx [Lantus Solostar] Sodium Bicarbonate Tab 650 mg PO BID 30 Days #60 tab 07/14/20 09/13/20 Rx Lidocaine 5% Patch [Lidoderm 5% 1 - 2 patch TOPICAL DAILY@1300 PRN 07/20/20 History Patch] Aspirin 81 mg PO DAILY chew 08/20/20 09/13/20 Rx lisinopriL [Zestril] 2.5 mg PO DAILY tab 08/20/20 09/13/20 Rx HYDROcodone/APAP 5-325MG [[place] 1 tab PO BID PRN 09/13/20 09/13/20 History 5-325] Nitroglycerin Sl Tabs [Nitrostat] 0.4 mg SL Q5M PRN 09/13/20 09/13/20 History Omeprazole 40 mg PO BID 09/13/20 09/13/20 History buPROPion SR [Wellbutrin Sr] 150 mg PO BID 09/13/20 09/13/20 History Allergies Allergy/AdvReac Type Severity Reaction Status Date / Time gabapentin Allergy Anaphylaxis Verified 09/13/20 19:34 shellfish derived [Crab] Allergy Rash/Hives Verified 09/13/20 19:34 Physical Exam Vitals: Vital Signs Temp Pulse Pulse Resp BP BP Pulse Ox 09/14/20 11:03 58 L 19 95/87 100 09/14/20 08:02 16 09/14/20 08:00 16 09/14/20 07:11 98.4 F 78 12 115/67 94 L 09/14/20 02:00 98.5 F 81 16 125/76 95 09/13/20 20:55 82 16 135/68 99 09/13/20 19:19 96 20 137/72 100 09/13/20 18:48 139/76 09/13/20 18:39 136/76 09/13/20 18:31 141/73 09/13/20 18:25 80 18 143/71 99 09/13/20 18:00 138/93 09/13/20 17:33 98.7 F 85 17 162/82 99 Intake and Output 09/13/20 09/14/20 09/14/20 22:59 06:59 14:59 Intake Total 241.4 100 Balance 241.4 100 Intake: Intake, IV Titration 1.4 Amount Nitroglycerin-D5w Pmx 50 1.4 mg In Dextrose/Water 1 250ml.bag @ 5 MCG/MIN 1.5 mls/hr IV .Q24H ONE Rx#: [id number] Oral 240 100 Other: Voiding Method Toilet Toilet Diaper Incontinent # Voids 1 1 Weight 74.843 kg In general patient is alert and oriented 3 in no apparent distress HEENT head normocephalic and atraumatic Neck is supple no JVD no goiter no lymphadenopathy Chest exam reveals a scattered crackles bilaterally no wheezing Cardiac exam reveals regular heart sounds S1 and S2 no gallops no murmurs Abdomen is soft nontender no organomegaly with normal bowel sounds Extremity exam reveals no edema no cyanosis or clubbing Neurological examination reveals no gross focal deficit Results CBC & Chem 7: 09/13/20 18:04 09/13/20 18:04 Labs: Abnormal Lab Results - Last 24 Hours (Table) 09/13/20 09/13/20 09/14/20 Range/Units 18:04 19:54 05:15 Sodium 136 L (137-145) mmol/L Glucose 500 H (74-99) mg/dL POC Glucose (mg/dL) 503 H (75-99) mg/dL Cholesterol 251 H (0-200) mg/dL LDL Cholesterol, Calc 154.0 H (0.0-131.0) mg/dL HDL Cholesterol 69.0 H (40.0-60.0) mg/dL 09/14/20 09/14/20 Range/Units 07:38 11:26 Sodium (137-145) mmol/L Glucose (74-99) mg/dL POC Glucose (mg/dL) 234 H 123 H (75-99) mg/dL Cholesterol (0-200) mg/dL LDL Cholesterol, Calc (0.0-131.0) mg/dL HDL Cholesterol (40.0-60.0) mg/dL Thrombosis Risk Factor Assmnt - Choose All That Apply Each Factor Represents 1 point: Abnormal pulmonary function (COPD), Age 41-60 years, Obesity (BMI >25) Thrombosis Risk Factor Assessment Total Risk Factor Score: 3 Thrombosis Risk Factor Assessment Level: Moderate Risk Assessment and Plan Plan: 1. Episode of chest pain, cardiology consult requested acute coronary syndrome ruled out, cardiac medications being adjusted 2. Underlying history of extensive coronary artery disease, with previous history of coronary artery bypass graft surgery and angioplasty with stent placement 3. Underlying history of hyperlipidemia cholesterol level not well controlled patient was counseled in length in regards to taking cholesterol medication and watching her diet at this time will add that T at 10 mg by mouth daily 4. Underlying history of seizure disorder maintained on Keppra 5. Underlying history of hypertension 6. Underlying history of hypothyroidism 7. Underlying history of depression and bipolar disorder 8. Underlying history of tobacco use shouldn't was counseled in length in regard to smoking cessation Medication and labs were reviewed Will follow in a.m.
[2020-09-14] MEDS: EZETIMIBE 10 MG TAB PO SCH (16:03)
[2020-09-14 17:14] LABS: Glucose,Whole Blood 166 mg/dL (75-99)
[2020-09-14 20:29] LABS: Glucose,Whole Blood 234 mg/dL (75-99)
[2020-09-14] MEDS ORDERED: ARIPiprazole 5 MG TAB PO SCH (21:00)
[2020-09-14] MEDS ORDERED: QUEtiapine 50 MG TAB PO SCH (21:00)
[2020-09-14] MEDS ORDERED: MIRTAZAPINE 45 MG TABLET PO SCH (21:00)
[2020-09-15] MEDS: NITROGLYCERIN OINT 1 INCH/GM PACKET TOPICAL SCH (05:02)
[2020-09-15] MEDS: LEVOTHYROXINE 75 MCG TAB PO SCH (05:34)
[2020-09-15] MEDS: LEVOTHYROXINE 100 MCG TAB PO SCH (05:34)
[2020-09-15 07:15] VITALS: BP 128/69; PULSE 55; RESP 14; TEMP 97.3
[2020-09-15 07:45] LABS: Glucose,Whole Blood 57 mg/dL (75-99)
[2020-09-15 07:45] LABS: Glucose,Whole Blood 62 mg/dL (75-99)
[2020-09-15] MEDS: INSULIN ASPART (NovoLOG) 100 UNIT/ML VIAL SQ SCH ×2 (07:45→13:18)
[2020-09-15 08:06] LABS: Glucose,Whole Blood 68 mg/dL (75-99)
[2020-09-15 08:17] LABS: Glucose,Whole Blood 80 mg/dL (75-99)
[2020-09-15] MEDS: METOPROLOL TARTRATE 50 MG TAB PO SCH (08:52)
[2020-09-15] MEDS: levETIRAcetam 500 MG TAB PO SCH (08:52)
[2020-09-15] MEDS: FOLIC ACID 1 MG TAB PO SCH (08:53)
[2020-09-15] MEDS: FERROUS SULFATE 325 MG TAB PO SCH (08:53)
[2020-09-15] MEDS: ASPIRIN 81 MG PO SCH (08:53)
[2020-09-15] MEDS: ISOSORBIDE MONONITRATE ER 30 MG TAB.ER.24H PO SCH (08:53)
[2020-09-15] MEDS: SERTRALINE 50 MG TAB PO SCH (08:53)
[2020-09-15] MEDS: PANTOPRAZOLE 40 MG TABLET PO SCH (08:53)
[2020-09-15] MEDS: SODIUM BICARBONATE TAB 650 MG TAB PO SCH (08:53)
[2020-09-15] MEDS: ATORVASTATIN 80 MG TAB PO SCH (08:53)
[2020-09-15] MEDS: CALCIUM CARBONATE 500 MG CHEWABLE PO SCH (08:54)
[2020-09-15] MEDS: RANOLAZINE 500 MG TAB.ER.12H PO SCH (08:56)
[2020-09-15] MEDS: buPROPion SR 150 MG TABLET.ER PO SCH (08:57)
[2020-09-15] MEDS: TICAGRELOR 90 MG TAB PO SCH (08:57)
[2020-09-15] MEDS: EZETIMIBE 10 MG TAB PO SCH (08:57)
[2020-09-15] MEDS: HYDROcodone/APAP 5-325MG 1 EACH TAB PO PRN (09:06)
--- NOTE | 2020-09-15 11:10 | P.PN ---
Subjective Progress Note Date: 09/15/20 HISTORY OF PRESENT ILLNESS: Patient examined this morning at the bedside. She reports mild chest discomfort. She denies shortness of breath. Blood pressure 120/69. Heart rate in the 50-60s. She denies dizziness or lightheadedness. PHYSICAL EXAM: VITAL SIGNS: Reviewed. GENERAL: Well-developed in no acute distress. NECK: Supple. No JVD or thyromegaly LUNGS: Respirations even and unlabored. Lungs essentially clear to auscultation bilaterally. HEART: Regular rate and rhythm. S1 and S2 heard. EXTREMITIES: Normal range of motion. No clubbing or cyanosis. Peripheral pulses intact. No lower extremity edema ASSESSMENT: Chest pain Coronary artery disease with previous CABG and PCI Valvular heart disease, with history of mitral valve replacement Hypertension Hyperlipidemia History of CVA PLAN: Continue current cardiac medications. Patient is on maximum medical therapy. She is stable for discharge home today from a cardiac perspective. Nurse practitioner note has been reviewed by physician. Signing provider agrees with the documented findings, assessment, and plan of care. Objective - Vital Signs Vital signs: Vital Signs Temp 97.3 F L 09/15/20 06:52 Pulse 55 L 09/15/20 06:52 Resp 14 09/15/20 08:00 BP 128/69 09/15/20 06:52 Pulse Ox 98 09/15/20 06:52 Intake & Output 09/14/20 09/15/20 09/15/20 18:59 06:59 18:59 Intake Total 100 200 Output Total 240 Balance 100 -240 200 Intake: Oral 100 200 Output: Urine 240 Other: Voiding Method Toilet Toilet Toilet Diaper Diaper Diaper Incontinent Incontinent Incontinent # Voids 1 1 1 # Bowel Movements 0 0 - Labs CBC & Chem 7: 09/13/20 18:04 09/13/20 18:04 Labs: Abnormal Lab Results - Last 24 Hours (Table) 09/14/20 09/14/20 09/14/20 Range/Units 11:26 17:13 20:27 POC Glucose (mg/dL) 123 H 166 H 234 H (75-99) mg/dL 09/15/20 09/15/20 09/15/20 Range/Units 07:07 07:26 07:46 POC Glucose (mg/dL) 57 L 62 L 68 L (75-99) mg/dL
[2020-09-15 11:33] LABS: Glucose,Whole Blood 265 mg/dL (75-99)
--- NOTE | 2020-09-15 13:15 | P.DS ---
Providers Date of admission: 09/13/20 19:24 Expected date of discharge: 09/15/20 Attending physician: Jerson Aguilar Consults: 09/13/20 19:22 Consult Physician Urgent Consulting Provider: [facility] Consult Reason/Comments: Unstable angina Do you want consulting provider notified?: Yes Primary care physician: Jerson Aguilar [place] [facility] Course: Discharge diagnosis 1. Episode of chest pain, cardiology consult requested acute coronary syndrome ruled out, cardiac medications being adjusted 2. Underlying history of extensive coronary artery disease, with previous history of coronary artery bypass graft surgery and angioplasty with stent placement 3. Underlying history of hyperlipidemia cholesterol level not well controlled patient was counseled in length in regards to taking cholesterol medication and watching her diet at this time will add that T at 10 mg by mouth daily 4. Underlying history of seizure disorder maintained on Keppra 5. Underlying history of hypertension 6. Underlying history of hypothyroidism 7. Underlying history of depression and bipolar disorder 8. Underlying history of tobacco use shouldn't was counseled in length in regard to smoking cessation Hospital course Aminta Sheikh, is a 55-year-old female who presented to [facility] emergency room with a chief complaint of chest pain. Patient describes a pressure sensation in the middle of her chest radiating to the back. Patient was evaluated in emergency room, vital examination on presentation revealed a temperature of 98.7 pulse 85 respiration 17 blood pressure 162/82 pulse ox 99% on room air Laboratory data revealed a white blood count of 5.4 hemoglobin 12.5 platelet count 249 sodium 136 glucose 500 BUN 13 creatinine 0.77 troponin level 0.012 Hope virus PCR was negative cholesterol was elevated at 251. Chest x-ray done on presentation revealed no active cardiopulmonary disease, EKG done on presentation revealed normal sinus rhythm normal EKG. Patient was admitted to telemetry floor for further evaluation and treatment cardiology consultation was requested. Her past medical history is significant for extensive coronary artery disease with history of coronary artery bypass graft surgery in 2013, history of cardiac catheterization with angioplasty and stent placement in June 2020, history of diabetes mellitus, history of hypertension, history of hyperlipidemia, history of bipolar disorder, and history of nicotine dependence. On 09/15/2020 patient alert and oriented 3. Patient evaluated by cardiology services. Metoprolol increased. Patient cleared for discharge from cardiology standpoint. Vitals have remained stable. Patient advised to follow-up with PCP and cardiology services for further management. At this time patient denies chest pain or shortness breath. Patient denies nausea vomiting or diarrhea. Patient denies any urinary burning or frequency Patient Condition at Discharge: Stable Plan - Discharge Summary Discharge Rx Participant: No New Discharge Prescriptions: New Metoprolol Tartrate [Lopressor] 50 mg PO BID 60 Days #30 tab Ezetimibe [Zetia] 10 mg PO DAILY 30 Days #30 tab Continue Folic Acid 1 mg PO DAILY Sertraline [Zoloft] 50 mg PO DAILY Ferrous Sulfate [Iron (65 MG Elemental)] 325 mg PO BID Calcium Carbonate [Calcium] 600 mg PO DAILY Ranolazine [Ranexa] 1,000 mg PO BID QUEtiapine [SEROquel] 50 mg PO HS Mirtazapine [Remeron] 45 mg PO HS INSULIN ASPART (NovoLOG) [NovoLOG (formulary)] See Protocol SQ ACHS Levothyroxine Sodium [Synthroid] 175 mcg PO DAILY levETIRAcetam [Keppra] 500 mg PO BID hydrOXYzine pamoate [Vistaril] 25 mg PO TID PRN PRN Reason: Anxiety Isosorbide Mononitrate ER [Imdur] 30 mg PO DAILY Cyclobenzaprine [Flexeril] 10 mg PO TID PRN PRN Reason: Pain Atorvastatin [Lipitor] 80 mg PO DAILY ARIPiprazole [Abilify] 5 mg PO HS Loperamide [Imodium] 2 mg PO QID PRN PRN Reason: Diarrhea Ticagrelor [Brilinta] 90 mg PO BID tab Sodium Bicarbonate Tab 650 mg PO BID 30 Days #60 tab Insulin Glargine,Hum.rec.anlog [Lantus Solostar] 30 unit SQ BID #0 Lidocaine 5% Patch [Lidoderm 5% Patch] 1 - 2 patch TOPICAL DAILY@1300 PRN PRN Reason: lower back pain Aspirin 81 mg PO DAILY chew lisinopriL [Zestril] 2.5 mg PO DAILY tab buPROPion SR [Wellbutrin SR] 150 mg PO BID Nitroglycerin Sl Tabs [Nitrostat] 0.4 mg SL Q5M PRN PRN Reason: Chest Pain HYDROcodone/APAP 5-325MG [[place] 5-325] 1 tab PO BID PRN PRN Reason: Pain Omeprazole 40 mg PO BID Discontinued Metoprolol Tartrate [Lopressor] 25 mg PO BID Discharge Medication List ARIPiprazole [Abilify] 5 mg PO HS 05/21/20 [History] Atorvastatin [Lipitor] 80 mg PO DAILY 05/21/20 [History] Calcium Carbonate [Calcium] 600 mg PO DAILY 05/21/20 [History] Cyclobenzaprine [Flexeril] 10 mg PO TID PRN 05/21/20 [History] Ferrous Sulfate [Iron (65 MG Elemental)] 325 mg PO BID 05/21/20 [History] Folic Acid 1 mg PO DAILY 05/21/20 [History] INSULIN ASPART (NovoLOG) [NovoLOG (formulary)] See Protocol SQ ACHS 05/21/20 [History] Isosorbide Mononitrate ER [Imdur] 30 mg PO DAILY 05/21/20 [History] Levothyroxine Sodium [Synthroid] 175 mcg PO DAILY 05/21/20 [History] Mirtazapine [Remeron] 45 mg PO HS 05/21/20 [History] QUEtiapine [SEROquel] 50 mg PO HS 05/21/20 [History] Ranolazine [Ranexa] 1,000 mg PO BID 05/21/20 [History] Sertraline [Zoloft] 50 mg PO DAILY 05/21/20 [History] hydrOXYzine pamoate [Vistaril] 25 mg PO TID PRN 05/21/20 [History] levETIRAcetam [Keppra] 500 mg PO BID 05/21/20 [History] Loperamide [Imodium] 2 mg PO QID PRN 06/08/20 [History] Ticagrelor [Brilinta] 90 mg PO BID tab 06/27/20 [Rx] Insulin Glargine,Hum.rec.anlog [Lantus Solostar] 30 unit SQ BID #0 07/14/20 [Rx] Sodium Bicarbonate Tab 650 mg PO BID 30 Days #60 tab 07/14/20 [Rx] Lidocaine 5% Patch [Lidoderm 5% Patch] 1 - 2 patch TOPICAL DAILY@1300 PRN 07/20/20 [History] Aspirin 81 mg PO DAILY chew 08/20/20 [Rx] lisinopriL [Zestril] 2.5 mg PO DAILY tab 08/20/20 [Rx] HYDROcodone/APAP 5-325MG [[place] 5-325] 1 tab PO BID PRN 09/13/20 [History] Nitroglycerin Sl Tabs [Nitrostat] 0.4 mg SL Q5M PRN 09/13/20 [History] Omeprazole 40 mg PO BID 09/13/20 [History] buPROPion SR [Wellbutrin SR] 150 mg PO BID 09/13/20 [History] Ezetimibe [Zetia] 10 mg PO DAILY 30 Days #30 tab 09/15/20 [Rx] Metoprolol Tartrate [Lopressor] 50 mg PO BID 60 Days #30 tab 09/15/20 [Rx] Follow up Appointment(s)/Referral(s): Elier Murillo MD [STAFF PHYSICIAN] - 2 Weeks Jerson Aguilar MD [Primary Care Provider] - 1-2 days Activity/Diet/Wound Care/Special Instructions: Activity as tolerated Diet heart healthy Discharge Disposition: HOME SELF-CARE
[2020-09-15] MEDS: INSULIN DETEMIR (LEVEMIR) 100 UNIT/ML SYR SQ SCH (13:17)
== END 2020-09-15 14:35 | disposition home or self-care (01) ==
LOC: EC 17:31 → 6NMEDSUR 19:24
PROVIDERS: ADMIT Internal Medicine; ATTEND Internal Medicine
DX: R07.89 Other chest pain (principal); I25.110 Atherosclerotic heart disease of native coronary artery with unstable angina pectoris; E78.5 Hyperlipidemia, unspecified; F41.9 Anxiety disorder, unspecified; F31.9 Bipolar disorder, unspecified; F17.200 Nicotine dependence, unspecified, uncomplicated; E11.65 Type 2 diabetes mellitus with hyperglycemia; I25.2 Old myocardial infarction; J44.9 Chronic obstructive pulmonary disease, unspecified; I10 Essential (primary) hypertension; G40.909 Epilepsy, unspecified, not intractable, without status epilepticus; E03.9 Hypothyroidism, unspecified; Z79.82 Long term (current) use of aspirin; Z82.49 Family history of ischemic heart disease and other diseases of the circulatory system; Z86.73 Personal history of transient ischemic attack (TIA), and cerebral infarction without residual deficits; Z79.890 Hormone replacement therapy; Z90.710 Acquired absence of both cervix and uterus; Z79.02 Long term (current) use of antithrombotics/antiplatelets; Z79.899 Other long term (current) drug therapy; Z95.3 Presence of xenogenic heart valve; Z95.5 Presence of coronary angioplasty implant and graft; Z16.24 Resistance to multiple antibiotics
CPT/HCPCS: 93005 ×2; 96365; 96366; 96375; 99291; 36415; 80061; 80053; 83735; 84484; 85025; 85610; 85730; 87635; 71046; G0378 ×3; J2270; S0106 ×2; J2405

== ENCOUNTER 2020-09-21 16:28 | Inpatient (IN) | payer MEDICARE, OTHER ==
[2020-09-21] MEDS ORDERED: ASPIRIN 81 MG PO STA (17:20)
[2020-09-21] MEDS ORDERED: NITROGLYCERIN OINT 1 INCH/GM PACKET TOPICAL STA (17:20)
[2020-09-21 17:35] LABS: Basophils % (A) 1 %; Eosinophils # (A) 0.1 k/uL (0-0.7); Eosinophils % (A) 2 %; HCT 41.6 % (34.0-46.0); HGB 13.6 gm/dL (11.4-16.0); Lymphocytes % (A) 24 %; MCH 31.1 pg (25.0-35.0); MCHC 32.8 g/dL (31.0-37.0); MCV 94.8 fL (80.0-100.0); Monocytes # (A) 0.3 k/uL (0-1.0); Monocytes % (A) 7 %; Neutrophils # (A) 2.6 k/uL (1.3-7.7); Neutrophils % (A) 65 %; Platelet Count 237 k/uL (150-450); RBC 4.39 m/uL (3.80-5.40); RDW 13.3 % (11.5-15.5)
--- NOTE | 2020-09-21 17:41 | XR ---
EXAMINATION TYPE: XR chest 2V DATE OF EXAM: 09/21/2020 COMPARISON: Chest x-ray September 13, 2020 HISTORY: Chest pain into back today. TECHNIQUE: Frontal and lateral views of the chest are obtained. FINDINGS: Overlying sternal wires demonstrated. There are suspected calcified coronary artery stents. Metallic cardiac valve redemonstrated. There is no new suspicious focal air space opacity, pleural effusion, or pneumothorax seen. The car diac silhouette size is stable and within normal limits. The osseous structures are intact. IMPRESSION: Chronic changes without acute pulmonary process. No significant change from 8 days earli er.
--- NOTE | 2020-09-21 17:44 | ED ---
General Adult HPI - General Chief complaint: Chest Pain Stated complaint: chest pain Time Seen by Provider: 09/21/20 16:35 Source: patient, EMS, RN notes reviewed, old records reviewed Mode of arrival: EMS Limitations: no limitations - History of Present Illness Initial comments: This a 55-year-old female presents emergency Department with a past medical history for cardiac disease patient states she's had over 30 stents. Patient also has diabetes hypertension high costal. Patient states morning she started having chest pain it radiated to her back per patient states she has difficulty breathing but denies any diaphoretic episodes or nausea. Patient has been seen here multiple times for similar. Patient does not know what the plan is from ca rdiology. Patient denies any headache patient denies numbness weakness. Patient denies abdominal pain. Patient states she has a little bit of lower back pain but states this is normal. Patient denies any swelling to the legs or calf tenderness. - Related Data Home Medications Medication Instructions Recorded Confirmed ARIPiprazole [Abilify] 5 mg PO DAILY 05/21/20 09/21/20 Atorvastatin [Lipitor] 80 mg PO DAILY 05/21/20 09/21/20 Cyclobenzaprine [Flexeril] 10 mg PO TID 05/21/20 09/21/20 INSULIN ASPART (NovoLOG) [NovoLOG See Protocol SQ AC-TID PRN 05/21/20 09/21/20 (formulary)] Isosorbide Mononitrate ER [Imdur] 30 mg PO DAILY 05/21/20 09/21/20 Levothyroxine Sodium [Synthroid] 175 mcg PO DAILY 05/21/20 09/21/20 Mirtazapine [Remeron] 45 mg PO HS 05/21/20 09/21/20 QUEtiapine [SEROquel] 50 mg PO HS 05/21/20 09/21/20 Ranolazine [Ranexa] 1,000 mg PO BID 05/21/20 09/21/20 Sertraline [Zoloft] 50 mg PO DAILY 05/21/20 09/21/20 hydrOXYzine pamoate [Vistaril] 25 mg PO TID 05/21/20 09/21/20 Loperamide [Imodium] 2 mg PO QID PRN 06/08/20 09/21/20 Lidocaine 5% Patch [Lidoderm 5% 1 - 2 patch TOPICAL DAILY PRN 07/20/20 09/21/20 Patch] HYDROcodone/APAP 5-325MG [[place] 1 tab PO TID PRN 09/13/20 09/21/20 5-325] Nitroglycerin Sl Tabs [Nitrostat] 0.4 mg SL Q5M PRN 09/13/20 09/21/20 Albuterol Inhaler [Ventolin Hfa 2 puff INHALATION RT-QID PRN 09/21/20 09/21/20 Inhaler] Furosemide [Lasix] 40 mg PO DAILY 09/21/20 09/21/20 Potassium Chloride ER [K-Dur 20] 20 meq PO DAILY 09/21/20 09/21/20 Spironolactone [Aldactone] 25 mg PO DAILY 09/21/20 09/21/20 tiZANidine [Zanaflex] 4 mg PO TID PRN 09/21/20 09/21/20 Previous Rx's Medication Instructions Recorded Ticagrelor [Brilinta] 90 mg PO BID tab 06/27/20 Insulin Glargine,Hum.rec.anlog 30 unit SQ BID #0 07/14/20 [Lantus Solostar] Aspirin 81 mg PO DAILY chew 08/20/20 lisinopriL [Zestril] 2.5 mg PO DAILY tab 08/20/20 Ezetimibe [Zetia] 10 mg PO DAILY 30 Days #30 tab 09/15/20 Metoprolol Tartrate [Lopressor] 50 mg PO BID 60 Days #30 tab 09/15/20 Allergies Allergy/AdvReac Type Severity Reaction Status Date / Time gabapentin Allergy Anaphylaxis Verified 09/21/20 18:07 shellfish derived [Crab] Allergy Rash/Hives Verified 09/21/20 18:07 Review of Systems ROS Statement: Those systems with pertinent positive or pertinent negative responses have been documented in the HPI. ROS Other: All systems not noted in ROS Statement are negative. Past Medical History Past Medical History: Coronary Artery Disease (CAD), Chest Pain / Angina, COPD, CVA/TIA, Diabetes Mellitus, GI Bleed, Hyperlipidemia, Hypertension, Myocardial Infarction ([place]), Musculoskeletal Disorder, Pneumonia, Thyroid Disorder Additional Past Medical History / Comment(s): MS,cva x4 last one 2016. Last Myocardial Infarction Date:: 2016 History of Any Multi-Drug Resistant Organisms: ESBL Date of last positivie culture/infection: 08/27/20 MDRO Source:: ESBL URINE Past Surgical History: Appendectomy, Bladder Surgery, Cholecystectomy, Coronary Bypass/CABG, Heart Catheterization, Heart Catheterization With Stent, Hysterectomy Additional Past Surgical History / Comment(s): CABG in 2013, Mitral valve on 2017, Heart Stent x 30, bilateral leg stent Past Anesthesia/Blood Transfusion Reactions: No Reported Reaction Date of Last Stent Placement:: 06/25/20 Past Psychological History: Anxiety, Bipolar Smoking Status: Current every day smoker Past Alcohol Use History: None Reported Past Drug Use History: None Reported - Past Family History Father Family Medical History: Coronary Artery Disease (CAD) Additional Family Medical History / Comment(s): heart disease General Exam - General Exam Comments Initial Comments: GENERAL: Patient is well-developed and well-nourished. Patient is nontoxic and well- hydrated and is in mild distress. ENT: Neck is soft and supple. No significant lymphadenopathy is noted. Oropharynx is clear. Moist mucous membranes. Neck has full range of motion without eliciting any pain. EYES: The sclera were anicteric and conjunctiva were pink and moist. Extraocular movements were intact and pupils were equal round and reactive to light. Eyelids were unremarkable. PULMONARY: Unlabored respirations. Good breath sounds bilaterally. No audible rales rhonchi or wheezing was noted. CARDIOVASCULAR: There is a regular rate and rhythm without any murmurs gallops or rubs. ABDOMEN: Soft and nontender with normal bowel sounds. SKIN: Skin is clear with no lesions or rashes and otherwise unremarkable. NEUROLOGIC: Patient is alert and oriented x3. Cranial nerves II through XII are grossly in tact. Motor and sensory are also intact. Normal speech, volume and content. Symmetrical smile. MUSCULOSKELETAL: Normal extremities with adequate strength and full range of motion. No lower extremity swelling or edema. No calf tenderness. LYMPHATICS: No significant lymphadenopathy is noted PSYCHIATRIC: Normal psychiatric evaluation. Limitations: no limitations Course Vital Signs 09/21/20 09/21/20 09/21/20 16:35 17:00 17:30 Temperature 99.5 F Pulse Rate 85 84 76 Respiratory 18 18 18 Rate Blood Pressure 142/77 142/77 O2 Sat by Pulse 99 100 Oximetry 09/21/20 18:00 Temperature Pulse Rate 86 Respiratory 18 Rate Blood Pressure 142/70 O2 Sat by Pulse 98 Oximetry Medical Decision Making - Medical Decision Making EKG shows normal sinus rhythm at 77 bpm MD interval 176 QRS is 90 QT interval is 418 QTC is 473. Patient's EKG shows no ST segment elevation or depression. Patient's chest x-ray shows no acute abnormality. I spoke with Dr. Aguilar and just he agreed to admit the patient admitted the patient wrote admitting orders I started the patient on heparin for the unstable angina and the elevated troponin. I continued heparin and aspirin Nitropaste floor. I consult to cardiology. - Lab Data Result diagrams: 09/21/20 17:27 09/21/20 17:27 Lab Results 09/21/20 09/21/20 09/21/20 Range/Units 17:27 17:27 17:27 WBC 4.0 (3.8-10.6) k/uL RBC 4.39 (3.80-5.40) m/uL Hgb 13.6 (11.4-16.0) gm/dL Hct 41.6 (34.0-46.0) % MCV 94.8 (80.0-100.0) fL MCH 31.1 (25.0-35.0) pg MCHC 32.8 (31.0-37.0) g/dL RDW 13.3 (11.5-15.5) % Plt Count 237 (150-450) k/uL MPV 7.0 Neutrophils % 65 % Lymphocytes % 24 % Monocytes % 7 % Eosinophils % 2 % Basophils % 1 % Neutrophils # 2.6 (1.3-7.7) k/uL Lymphocytes # 1.0 (1.0-4.8) k/uL Monocytes # 0.3 (0-1.0) k/uL Eosinophils # 0.1 (0-0.7) k/uL Basophils # 0.0 (0-0.2) k/uL PT 9.7 (9.0-12.0) sec INR 0.9 (<1.2) APTT 22.1 (22.0-30.0) sec Sodium 134 L (137-145) mmol/L Potassium 3.8 (3.5-5.1) mmol/L Chloride 100 (98-107) mmol/L Carbon Dioxide 25 (22-30) mmol/L Anion Gap 9 mmol/L BUN 13 (7-17) mg/dL Creatinine 0.76 (0.52-1.04) mg/dL Est GFR (CKD-EPI)AfAm >90 (>60 ml/min/1.73 sqM) Est GFR (CKD-EPI)NonAf 90 (>60 ml/min/1.73 sqM) Glucose 398 H (74-99) mg/dL Calcium 9.3 (8.4-10.2) mg/dL Magnesium 1.8 (1.6-2.3) mg/dL Total Bilirubin 0.5 (0.2-1.3) mg/dL AST 24 (14-36) U/L ALT 19 (4-34) U/L Alkaline Phosphatase 101 (38-126) U/L Troponin I (0.000-0.034) ng/mL NT-Pro-B Natriuret Pep pg/mL Total Protein 6.9 (6.3-8.2) g/dL Albumin 4.3 (3.5-5.0) g/dL 09/21/20 09/21/20 Range/Units 17:27 17:27 WBC (3.8-10.6) k/uL RBC (3.80-5.40) m/uL Hgb (11.4-16.0) gm/dL Hct (34.0-46.0) % MCV (80.0-100.0) fL MCH (25.0-35.0) pg MCHC (31.0-37.0) g/dL RDW (11.5-15.5) % Plt Count (150-450) k/uL MPV Neutrophils % % Lymphocytes % % Monocytes % % Eosinophils % % Basophils % % Neutrophils # (1.3-7.7) k/uL Lymphocytes # (1.0-4.8) k/uL Monocytes # (0-1.0) k/uL Eosinophils # (0-0.7) k/uL Basophils # (0-0.2) k/uL PT (9.0-12.0) sec INR (<1.2) APTT (22.0-30.0) sec Sodium (137-145) mmol/L Potassium (3.5-5.1) mmol/L Chloride (98-107) mmol/L Carbon Dioxide (22-30) mmol/L Anion Gap mmol/L BUN (7-17) mg/dL Creatinine (0.52-1.04) mg/dL Est GFR (CKD-EPI)AfAm (>60 ml/min/1.73 sqM) Est GFR (CKD-EPI)NonAf (>60 ml/min/1.73 sqM) Glucose (74-99) mg/dL Calcium (8.4-10.2) mg/dL Magnesium (1.6-2.3) mg/dL Total Bilirubin (0.2-1.3) mg/dL AST (14-36) U/L ALT (4-34) U/L Alkaline Phosphatase (38-126) U/L Troponin I 0.036 H* (0.000-0.034) ng/mL NT-Pro-B Natriuret Pep 1020 pg/mL Total Protein (6.3-8.2) g/dL Albumin (3.5-5.0) g/dL Critical Care Time Critical Care Time: Yes Total Critical Care Time: 35 Disposition Clinical Impression: Unstable angina pectoris Disposition: ADMITTED IP TO THIS HOSP Referrals: Jerson Aguilar MD [Primary Care Provider] - 1-2 days Time of Disposition: 18:21
[2020-09-21 17:47] LABS: ALT 19 U/L (4-34); AST 24 U/L (14-36); African American GFR (CKD) >90 (>60 ml/min/1.73 sqM); Albumin 4.3 g/dL (3.5-5.0); Alkaline Phosphatase 101 U/L (38-126); Anion Gap 9 mmol/L; Blood Urea Nitrogen 13 mg/dL (7-17); Calcium 9.3 mg/dL (8.4-10.2); Carbon Dioxide 25 mmol/L (22-30); Chloride 100 mmol/L (98-107); Glucose 398 mg/dL (74-99); Magnesium 1.8 mg/dL (1.6-2.3); Non-African American GFR(CKD) 90 (>60 ml/min/1.73 sqM); Potassium 3.8 mmol/L (3.5-5.1); Sodium 134 mmol/L (137-145); Total Bilirubin 0.5 mg/dL (0.2-1.3); Total Protein 6.9 g/dL (6.3-8.2)
[2020-09-21 17:55] LABS: INR 0.9 (<1.2); Partial Thromboplastin Time 22.1 sec (22.0-30.0); Prothrombin Time 9.7 sec (9.0-12.0)
[2020-09-21] MEDS ORDERED: HEPARIN SODIUM,PORCINE 5,000 UNIT/ML 1 ML VIAL IV ONE (18:18)
[2020-09-21] MEDS: HEPARIN SOD,PORK IN 0.45% NACL 25,000 UNIT in 0.45% NACL 1 250ML.BAG IV SCH (18:36)
[2020-09-21] MEDS ORDERED: NITROGLYCERIN SL TABS 0.4 MG TAB SUBLINGUAL PRN ×2 (20:09→22:12)
[2020-09-21 22:01] LABS: Glucose,Whole Blood 343 mg/dL (75-99)
[2020-09-21] MEDS ORDERED: ALBUTEROL HFA INHALER INHALATION PRN (22:12)
[2020-09-21] MEDS ORDERED: LOPERAMIDE 2 MG CAP PO PRN (22:12)
[2020-09-21] MEDS ORDERED: tiZANidine 4 MG TAB PO PRN (22:12)
[2020-09-21] MEDS ORDERED: LIDOCAINE 5% PATCH TOPICAL PRN (22:12)
[2020-09-21] MEDS: CYCLOBENZAPRINE 10 MG TAB PO SCH (23:34)
[2020-09-21] MEDS: METOPROLOL TARTRATE 50 MG TAB PO SCH (23:34)
[2020-09-21] MEDS: QUEtiapine 50 MG TAB PO SCH (23:35)
[2020-09-21] MEDS: RANOLAZINE 500 MG TAB.ER.12H PO SCH (23:35)
[2020-09-21] MEDS: INSULIN ASPART (NovoLOG) 100 UNIT/ML VIAL SQ SCH (23:36)
[2020-09-21] MEDS: NITROGLYCERIN OINT 1 INCH/GM PACKET TOPICAL SCH (23:36)
[2020-09-21] MEDS: HYDROcodone/APAP 5-325MG 1 EACH TAB PO PRN (23:37)
[2020-09-22 03:16] LABS: Glucose,Whole Blood 226 mg/dL (75-99)
[2020-09-22 04:48] LABS: Cholesterol 197 mg/dL (<200); HDL Cholesterol 84 mg/dL (40-60); LDL Cholesterol,Calculated 82 mg/dL (0-99); Triglycerides 153 mg/dL (<150)
[2020-09-22 06:00] LABS: Glucose,Whole Blood 173 mg/dL (75-99)
[2020-09-22] MEDS: LEVOTHYROXINE 50 MCG TAB PO SCH (06:23)
[2020-09-22] MEDS: NITROGLYCERIN OINT 1 INCH/GM PACKET TOPICAL SCH (06:25)
[2020-09-22] MEDS: INSULIN ASPART (NovoLOG) 100 UNIT/ML VIAL SQ SCH ×4 (06:38→21:11)
[2020-09-22] MEDS ORDERED: CYCLOBENZAPRINE 10 MG TAB PO SCH (09:00)
[2020-09-22] MEDS ORDERED: ISOSORBIDE MONONITRATE ER 30 MG TAB.ER.24H PO SCH (09:00)
[2020-09-22] MEDS ORDERED: METOPROLOL TARTRATE 50 MG TAB PO SCH (09:00)
[2020-09-22] MEDS ORDERED: ASPIRIN 325 MG TAB PO SCH (09:00)
[2020-09-22] MEDS ORDERED: RANOLAZINE 500 MG TAB.ER.12H PO SCH (09:00)
[2020-09-22] MEDS: TICAGRELOR 90 MG TAB PO SCH ×2 (11:13→20:10)
[2020-09-22] MEDS: ASPIRIN 81 MG PO SCH (11:14)
[2020-09-22] MEDS: EZETIMIBE 10 MG TAB PO SCH (11:14)
[2020-09-22] MEDS: FUROSEMIDE 40 MG TAB PO SCH (11:14)
[2020-09-22] MEDS: RANOLAZINE 500 MG TAB.ER.12H PO SCH ×2 (11:14→20:10)
[2020-09-22] MEDS: SERTRALINE 50 MG TAB PO SCH (11:14)
[2020-09-22] MEDS: ISOSORBIDE MONONITRATE ER 60 MG TAB.ER.24H PO SCH (11:14)
[2020-09-22] MEDS: hydrOXYzine pamoate 25 MG CAP PO SCH ×3 (11:14→20:10)
[2020-09-22] MEDS: SPIRONOLACTONE 25 MG TAB PO SCH (11:15)
[2020-09-22] MEDS: METOPROLOL TARTRATE 50 MG TAB PO SCH ×2 (11:15→20:09)
[2020-09-22] MEDS: ATORVASTATIN 80 MG TAB PO SCH (11:15)
[2020-09-22] MEDS: POTASSIUM CHLORIDE ER 20 MEQ TAB.ER PO SCH (11:15)
[2020-09-22] MEDS: ARIPiprazole 5 MG TAB PO SCH (11:15)
[2020-09-22] MEDS: CYCLOBENZAPRINE 10 MG TAB PO SCH ×3 (11:16→20:10)
[2020-09-22 11:34] LABS: Glucose,Whole Blood 170 mg/dL (75-99)
--- NOTE | 2020-09-22 12:03 | P.CRDCN ---
History of Present Illness Consult date: 09/22/20 History of present illness: HISTORY OF PRESENT ILLNESS: This is a 55-year-old female with a past medical history significant for coronary artery disease with previous CABG and PCI, mitral valve replacement, hypertension, hyperlipidemia, diabetes mellitus, COPD, and CVA. Patient follows in the office with Dr. Murillo. She also has seen Dr. Salcedo in [place]. We have been asked to see the patient in consultation for chest pain. Patient examined at the bedside. Patient was recently hospitalized on 09/13/2020 for chest pain. She was evaluated by cardiology at that time and medical management was recommended. She was discharged home on 09/15/2020. Patient states she has been having constant chest pain since she was discharged home. The pain is in the middle of her chest and goes to the left lateral side of her chest. She reports she has radiation down her arm. She reports feeling mildly nauseated as well. She states she was very diaphoretic which does not usually happen to her. She also reports some lower back pain. She states that she took aspirin and nitro yesterday without relief. The pain is not worse with deep inspiration. There is no tenderness with chest wall palpation. The pain is not worse with movement. EKG reveals sinus mechanism. Chest xray chronic changes without acute pulmonary process. Laboratory data: WBC 4.0. Hemoglobin 13.6. Platelet count 237. Sodium 134. Potassium 3.8. Magnesium 1.8. BUN 13. Creatinine 0.76. Troponin 0.036. 0.038. 0.031. Current home cardiac medications include Aldactone 25 mg daily, Lasix 40 mg daily, Prolixin 1090 mg twice a day, Ranexa 1000 g twice a day, lisinopril 2.5 mg daily, metoprolol 50 g twice a day, Imdur 30 mg daily, Zetia 10 mg daily, Lipitor 80 mg daily, aspirin 81 mg daily Most recent echocardiogram obtained in May 2020 revealed ejection fraction 55-60%, normally functioning bioprosthetic mitral valve, and mild tricuspid regurgitation Cardiac catheterization history: 08/18/[address] Murillo revealing occluded LAD in the midportion. ROBLES to LAD is patent. Occluded ramus intermedius which seems to be an in-stent occlusion. Occluded left circumflex which also seems to be an in-stent occlusion. Pain started in the right coronary artery. Medical management was recommended. REVIEW OF SYSTEMS: At the time of my exam: CONSTITUTIONAL: Denies fever or chills. HEENT: Denies blurred vision, vision changes, or eye pain. Denies hemoptysis CARDIOVASCULAR: Reports chest pain. Denies orthopnea. Denies PND. Denies palpitations RESPIRATORY: Denies shortness of breath. GASTROINTESTINAL: Denies abdominal pain. Denies nausea or vomiting. HEMATOLOGIC: Denies bleeding disorders. GENITOURINARY: Denies any blood in urine. SKIN: Denies pruitis. Denies rash. PHYSICAL EXAM: VITAL SIGNS: Reviewed. GENERAL: Well-developed in no acute distress. HEENT: Head is normocephalic. Pupils are equal, round. Sclerae anicteric. Mucous membranes of the mouth are moist. Neck supple. No JVD or thyromegaly LUNGS: Respirations even and unlabored. Lungs essentially clear to auscultation bilaterally. HEART: Regular rate and rhythm. S1 and S2 heard. ABDOMEN: Soft. Nondistended. Nontender. EXTREMITIES: Normal range of motion. No clubbing or cyanosis. Peripheral pulses intact. No lower extremity edema NEUROLOGIC: Awake and alert. Oriented x 3. ASSESSMENT: Chest pain with mildly abnormal troponins Coronary artery disease with previous CABG and PCI Valvular heart disease with prior bioprosthetic mitral valve replacement Hypertension Hyperlipidemia Diabetes mellitus Peripheral vascular disease History of CVA 4 per patient PD Nicotine dependence PLAN: Obtain 2-D echo to assess cardiac structure and function Resume home cardiac medications Continue telemetry monitoring Continue to monitor blood pressure Continue IV heparin Case discussed with Dr. Murillo. We will continue with medical management at this time. Increase Imdur to 60 mg daily. Further recommendations pending patient course Nurse practitioner note has been reviewed by physician. Signing provider agrees with the documented findings, assessment, and plan of care. Past Medical History Past Medical History: Coronary Artery Disease (CAD), Chest Pain / Angina, COPD, CVA/TIA, Diabetes Mellitus, GI Bleed, Hyperlipidemia, Hypertension, Myocardial Infarction ([place]), Musculoskeletal Disorder, Pneumonia, Thyroid Disorder Additional Past Medical History / Comment(s): MS,cva x4 last one 2016. Last Myocardial Infarction Date:: 2015 History of Any Multi-Drug Resistant Organisms: ESBL Date of last positivie culture/infection: 08/27/20 MDRO Source:: ESBL URINE Past Surgical History: Appendectomy, Bladder Surgery, Cholecystectomy, Coronary Bypass/CABG, Heart Catheterization, Heart Catheterization With Stent, Hysterectomy Additional Past Surgical History / Comment(s): CABG in 2013, Mitral valve on 2017, Heart Stent x 30, bilateral leg stent Past Anesthesia/Blood Transfusion Reactions: No Reported Reaction Date of Last Stent Placement:: 06/25/20 Past Psychological History: Anxiety, Bipolar, Depression Smoking Status: Current every day smoker Past Alcohol Use History: None Reported Past Drug Use History: None Reported - Past Family History Father Family Medical History: Coronary Artery Disease (CAD) Additional Family Medical History / Comment(s): heart disease Medications and Allergies Home Medications Medication Instructions Recorded Confirmed Type ARIPiprazole [Abilify] 5 mg PO DAILY 05/21/20 09/21/20 History Atorvastatin [Lipitor] 80 mg PO DAILY 05/21/20 09/21/20 History Cyclobenzaprine [Flexeril] 10 mg PO TID 05/21/20 09/21/20 History INSULIN ASPART (NovoLOG) [NovoLOG See Protocol SQ AC-TID PRN 05/21/20 09/21/20 History (formulary)] Isosorbide Mononitrate ER [Imdur] 30 mg PO DAILY 05/21/20 09/21/20 History Levothyroxine Sodium [Synthroid] 175 mcg PO DAILY 05/21/20 09/21/20 History Mirtazapine [Remeron] 45 mg PO HS 05/21/20 09/21/20 History QUEtiapine [SEROquel] 50 mg PO HS 05/21/20 09/21/20 History Ranolazine [Ranexa] 1,000 mg PO BID 05/21/20 09/21/20 History Sertraline [Zoloft] 50 mg PO DAILY 05/21/20 09/21/20 History hydrOXYzine pamoate [Vistaril] 25 mg PO TID 05/21/20 09/21/20 History Loperamide [Imodium] 2 mg PO QID PRN 06/08/20 09/21/20 History Ticagrelor [Brilinta] 90 mg PO BID tab 06/27/20 09/21/20 Rx Insulin Glargine,Hum.rec.anlog 30 unit SQ BID #0 07/14/20 09/21/20 Rx [Lantus Solostar] Lidocaine 5% Patch [Lidoderm 5% 1 - 2 patch TOPICAL DAILY PRN 07/20/20 09/21/20 History Patch] Aspirin 81 mg PO DAILY chew 08/20/20 09/21/20 Rx lisinopriL [Zestril] 2.5 mg PO DAILY tab 08/20/20 09/21/20 Rx HYDROcodone/APAP 5-325MG [[place] 1 tab PO TID PRN 09/13/20 09/21/20 History 5-325] Nitroglycerin Sl Tabs [Nitrostat] 0.4 mg SL Q5M PRN 09/13/20 09/21/20 History Ezetimibe [Zetia] 10 mg PO DAILY 30 Days #30 tab 09/15/20 09/21/20 Rx Metoprolol Tartrate [Lopressor] 50 mg PO BID 60 Days #30 tab 09/15/20 09/21/20 Rx Albuterol Inhaler [Ventolin Hfa 2 puff INHALATION RT-QID PRN 09/21/20 09/21/20 History Inhaler] Furosemide [Lasix] 40 mg PO DAILY 09/21/20 09/21/20 History Potassium Chloride ER [K-Dur 20] 20 meq PO DAILY 09/21/20 09/21/20 History Spironolactone [Aldactone] 25 mg PO DAILY 09/21/20 09/21/20 History tiZANidine [Zanaflex] 4 mg PO TID PRN 09/21/20 09/21/20 History Allergies Allergy/AdvReac Type Severity Reaction Status Date / Time gabapentin Allergy Anaphylaxis Verified 09/21/20 18:07 shellfish derived [Crab] Allergy Rash/Hives Verified 09/21/20 18:07 Physical Exam Vitals: Vital Signs Temp Pulse Pulse Resp BP BP Pulse Ox 09/22/20 11:12 60 16 117/67 97 09/22/20 07:55 97.8 F 60 16 112/57 95 09/22/20 05:09 109/57 09/22/20 04:00 97.6 F 59 L 16 103/54 100 09/22/20 00:00 97.9 F 76 18 160/79 98 09/21/20 22:19 97.9 F 78 18 158/72 99 09/21/20 22:13 97.9 F 78 18 158/72 99 09/21/20 21:37 98.6 F 75 20 140/76 98 09/21/20 20:43 83 20 142/74 98 09/21/20 19:38 82 19 151/76 99 09/21/20 18:00 86 18 142/70 98 09/21/20 17:30 76 18 100 09/21/20 17:00 84 18 142/77 09/21/20 16:35 99.5 F 85 18 142/77 99 Intake and Output 09/21/20 09/22/20 09/22/20 22:59 06:59 14:59 Output Total 180 Balance -180 Output: Urine 180 Other: Voiding Method Toilet Toilet Toilet # Voids 1 Weight 79.379 kg 80.4 kg Results 09/21/20 17:27 09/21/20 17:27 Cardiac Enzymes 09/21/20 09/21/20 09/21/20 Range/Units 17:27 17:27 20:41 AST 24 (14-36) U/L Troponin I 0.036 H* 0.038 H* (0.000-0.034) ng/mL 09/22/20 Range/Units 00:25 AST (14-36) U/L Troponin I 0.031 (0.000-0.034) ng/mL Coagulation 09/21/20 09/22/20 Range/Units 17:27 00:26 PT 9.7 (9.0-12.0) sec APTT 22.1 45.0 H (22.0-30.0) sec Lipids 09/22/20 Range/Units 00:25 Triglycerides 153 H (<150) mg/dL Cholesterol 197 (<200) mg/dL HDL Cholesterol 84 H (40-60) mg/dL CBC 09/21/20 Range/Units 17:27 WBC 4.0 (3.8-10.6) k/uL RBC 4.39 (3.80-5.40) m/uL Hgb 13.6 (11.4-16.0) gm/dL Hct 41.6 (34.0-46.0) % Plt Count 237 (150-450) k/uL Comprehensive Metabolic Panel 09/21/20 Range/Units 17:27 Sodium 134 L (137-145) mmol/L Potassium 3.8 (3.5-5.1) mmol/L Chloride 100 (98-107) mmol/L Carbon Dioxide 25 (22-30) mmol/L BUN 13 (7-17) mg/dL Creatinine 0.76 (0.52-1.04) mg/dL Glucose 398 H (74-99) mg/dL Calcium 9.3 (8.4-10.2) mg/dL AST 24 (14-36) U/L ALT 19 (4-34) U/L Alkaline Phosphatase 101 (38-126) U/L Total Protein 6.9 (6.3-8.2) g/dL Albumin 4.3 (3.5-5.0) g/dL Current Medications Generic Name Dose Route Start Last Admin Trade Name Freq PRN Reason Stop Dose Admin Hydrocodone Bitart/Acetaminophen 1 each 09/21/20 22:12 09/21/20 23:37 Hydrocodone/Apap 5-325mg 1 Each Tab PO 1 each TID PRN Administration Pain Albuterol Sulfate 2 puff 09/21/20 22:12 Albuterol Hfa Inhaler INHALATION RT-QID PRN Shortness Of Breath Aripiprazole 5 mg 09/22/20 09:00 09/22/20 11:15 Aripiprazole 5 Mg Tab PO 5 mg DAILY CAROLYN Administration Aspirin 81 mg 09/22/20 09:00 09/22/20 11:14 Aspirin 81 Mg PO 81 mg DAILY CAROLYN Administration Atorvastatin Calcium 80 mg 09/22/20 09:00 09/22/20 11:15 Atorvastatin 80 Mg Tab PO 80 mg DAILY CAROLYN Administration Cyclobenzaprine HCl 10 mg 09/21/20 23:30 09/22/20 11:16 Cyclobenzaprine 10 Mg Tab PO 10 mg TID CAROLYN Administration Ezetimibe 10 mg 09/22/20 09:00 09/22/20 11:14 Ezetimibe 10 Mg Tab PO 10 mg DAILY CAROLYN Administration Furosemide 40 mg 09/22/20 09:00 09/22/20 11:14 Furosemide 40 Mg Tab PO 40 mg DAILY CAROLYN Administration Hydroxyzine Pamoate 25 mg 09/22/20 09:00 09/22/20 11:14 Hydroxyzine Pamoate 25 Mg Cap PO 25 mg TID CAROLYN Administration Heparin Sodium/Sodium Chloride 250 mls @ 9.525 mls/hr 09/21/20 18:30 09/21/20 18:36 25,000 unit/ Sodium Chloride IV 12 units/kg/hr .Q24H CAROLYN 9.525 mls/hr Administration Protocol 12 UNITS/KG/HR Insulin Aspart 0 unit 09/21/20 23:23 09/22/20 06:38 Insulin Aspart (Novolog) 100 Unit/Ml Vial SQ 2 unit ACHS CAROLYN Administration Protocol Insulin Detemir 30 unit 09/22/20 07:00 Insulin Detemir (Levemir) 100 Unit/Ml Syr SQ BID@0700,2100 [facility] Isosorbide Mononitrate 60 mg 09/22/20 10:45 09/22/20 11:14 Isosorbide Mononitrate Er 60 Mg Tab.Er.24h PO 60 mg DAILY CAROLYN Administration Levothyroxine Sodium 175 mcg 09/22/20 06:30 09/22/20 06:23 Levothyroxine 50 Mcg Tab PO 175 mcg DAILY@0630 [facility] Administration Lidocaine 1 patch 09/21/20 22:12 Lidocaine 5% Patch TOPICAL DAILY PRN lower back pain Lisinopril 2.5 mg 09/22/20 09:00 09/22/20 11:14 Lisinopril 2.5 Mg Tab PO 2.5 mg DAILY [facility] Administration Loperamide HCl 2 mg 09/21/20 22:12 Loperamide 2 Mg Cap PO QID PRN Diarrhea Metoprolol Tartrate 50 mg 09/21/20 23:15 09/22/20 11:15 Metoprolol Tartrate 50 Mg Tab PO 50 mg BID CAROLYN Administration Mirtazapine 45 mg 09/22/20 21:00 Mirtazapine 45 Mg Tablet PO HS CAROLYN Nitroglycerin 0.4 mg 09/21/20 20:09 Nitroglycerin Sl Tabs 0.4 Mg Tab SUBLINGUAL Q5M PRN Chest Pain Nitroglycerin 0.4 mg 09/21/20 22:12 Nitroglycerin Sl Tabs 0.4 Mg Tab SUBLINGUAL Q5M PRN Chest Pain Potassium Chloride 20 meq 09/22/20 09:00 09/22/20 11:15 Potassium Chloride Er 20 Meq Tab.Er PO 20 meq DAILY CAROLYN Administration Quetiapine Fumarate 50 mg 09/21/20 23:30 09/21/20 23:35 Quetiapine 50 Mg Tab PO 50 mg HS [facility] Administration Ranolazine 1,000 mg 09/21/20 23:30 09/22/20 11:14 Ranolazine 500 Mg Tab.Er.12h PO 1,000 mg BID CAROLYN Administration Sertraline HCl 50 mg 09/22/20 09:00 09/22/20 11:14 Sertraline 50 Mg Tab PO 50 mg DAILY CAROLYN Administration Spironolactone 25 mg 09/22/20 09:00 09/22/20 11:15 Spironolactone 25 Mg Tab PO 25 mg DAILY CAROLYN Administration Ticagrelor 90 mg 09/22/20 09:00 09/22/20 11:13 Ticagrelor 90 Mg Tab PO 90 mg BID CAROLYN Administration Tizanidine HCl 4 mg 09/21/20 22:12 Tizanidine 4 Mg Tab PO TID PRN Muscle Pain Intake and Output 09/21/20 09/22/20 09/22/20 22:59 06:59 14:59 Output Total 180 Balance -180 Output: Urine 180 Other: Voiding Method Toilet Toilet Toilet # Voids 1 Weight 79.379 kg 80.4 kg 09/21/20 17:27 09/21/20 17:27
[2020-09-22] MEDS: HYDROcodone/APAP 5-325MG 1 EACH TAB PO PRN ×2 (12:04→20:15)
[2020-09-22] MEDS: INSULIN DETEMIR (LEVEMIR) 100 UNIT/ML SYR SQ SCH ×2 (12:04→20:09)
--- NOTE | 2020-09-22 13:01 | P.HPIM ---
History of Present Illness H&P Date: 09/22/20 Chief Complaint: Chest pain This is a 55-year-old patient well-known to my services patient presented to ER with complaints of chest pain. Patient reports that chest pain started yesterday. Patient has a long-standing history of coronary artery disease including CABG and multiple stents. Patient is a smoker. Additional medical history includes diabetes mellitus, hypertension and hyperlipidemia. Patient reports she did have some difficulty breathing with episodes but denies any other associated symptoms. Initial troponin was mildly elevated at 0.038. Chest x-ray completed showing chronic changes without acute pulmonary process noticing significant change from 8 days earlier. At this time patient will be admitted and cardiology services consulted Review of Systems please refer to HPI otherwise unremarkable Past Medical History Past Medical History: Coronary Artery Disease (CAD), Chest Pain / Angina, COPD, CVA/TIA, Diabetes Mellitus, GI Bleed, Hyperlipidemia, Hypertension, Myocardial Infarction ([place]), Musculoskeletal Disorder, Pneumonia, Thyroid Disorder Additional Past Medical History / Comment(s): MS,cva x4 last one 2016. Last Myocardial Infarction Date:: 2015 History of Any Multi-Drug Resistant Organisms: ESBL Date of last positivie culture/infection: 08/27/20 MDRO Source:: ESBL URINE Past Surgical History: Appendectomy, Bladder Surgery, Cholecystectomy, Coronary Bypass/CABG, Heart Catheterization, Heart Catheterization With Stent, Hysterectomy Additional Past Surgical History / Comment(s): CABG in 2013, Mitral valve on 2016, Heart Stent x 30, bilateral leg stent Past Anesthesia/Blood Transfusion Reactions: No Reported Reaction Date of Last Stent Placement:: 06/25/20 Past Psychological History: Anxiety, Bipolar, Depression Smoking Status: Current every day smoker Past Alcohol Use History: None Reported Past Drug Use History: None Reported - Past Family History Father Family Medical History: Coronary Artery Disease (CAD) Additional Family Medical History / Comment(s): heart disease Medications and Allergies Home Medications Medication Instructions Recorded Confirmed Type ARIPiprazole [Abilify] 5 mg PO DAILY 05/21/20 09/21/20 History Atorvastatin [Lipitor] 80 mg PO DAILY 05/21/20 09/21/20 History Cyclobenzaprine [Flexeril] 10 mg PO TID 05/21/20 09/21/20 History INSULIN ASPART (NovoLOG) [NovoLOG See Protocol SQ AC-TID PRN 05/21/20 09/21/20 History (formulary)] Isosorbide Mononitrate ER [Imdur] 30 mg PO DAILY 05/21/20 09/21/20 History Levothyroxine Sodium [Synthroid] 175 mcg PO DAILY 05/21/20 09/21/20 History Mirtazapine [Remeron] 45 mg PO HS 05/21/20 09/21/20 History QUEtiapine [SEROquel] 50 mg PO HS 05/21/20 09/21/20 History Ranolazine [Ranexa] 1,000 mg PO BID 05/21/20 09/21/20 History Sertraline [Zoloft] 50 mg PO DAILY 05/21/20 09/21/20 History hydrOXYzine pamoate [Vistaril] 25 mg PO TID 05/21/20 09/21/20 History Loperamide [Imodium] 2 mg PO QID PRN 06/08/20 09/21/20 History Ticagrelor [Brilinta] 90 mg PO BID tab 06/27/20 09/21/20 Rx Insulin Glargine,Hum.rec.anlog 30 unit SQ BID #0 07/14/20 09/21/20 Rx [Lantus Solostar] Lidocaine 5% Patch [Lidoderm 5% 1 - 2 patch TOPICAL DAILY PRN 07/20/20 09/21/20 History Patch] Aspirin 81 mg PO DAILY chew 08/20/20 09/21/20 Rx lisinopriL [Zestril] 2.5 mg PO DAILY tab 08/20/20 09/21/20 Rx HYDROcodone/APAP 5-325MG [[place] 1 tab PO TID PRN 09/13/20 09/21/20 History 5-325] Nitroglycerin Sl Tabs [Nitrostat] 0.4 mg SL Q5M PRN 09/13/20 09/21/20 History Ezetimibe [Zetia] 10 mg PO DAILY 30 Days #30 tab 09/15/20 09/21/20 Rx Metoprolol Tartrate [Lopressor] 50 mg PO BID 60 Days #30 tab 09/15/20 09/21/20 Rx Albuterol Inhaler [Ventolin Hfa 2 puff INHALATION RT-QID PRN 09/21/20 09/21/20 History Inhaler] Furosemide [Lasix] 40 mg PO DAILY 09/21/20 09/21/20 History Potassium Chloride ER [K-Dur 20] 20 meq PO DAILY 09/21/20 09/21/20 History Spironolactone [Aldactone] 25 mg PO DAILY 09/21/20 09/21/20 History tiZANidine [Zanaflex] 4 mg PO TID PRN 09/21/20 09/21/20 History Allergies Allergy/AdvReac Type Severity Reaction Status Date / Time gabapentin Allergy Anaphylaxis Verified 09/21/20 18:07 shellfish derived [Crab] Allergy Rash/Hives Verified 09/21/20 18:07 Physical Exam Vitals: Vital Signs Temp Pulse Pulse Resp BP BP Pulse Ox 09/22/20 11:12 60 16 117/67 97 09/22/20 07:55 97.8 F 60 16 112/57 95 09/22/20 05:09 109/57 09/22/20 04:00 97.6 F 59 L 16 103/54 100 09/22/20 00:00 97.9 F 76 18 160/79 98 09/21/20 22:19 97.9 F 78 18 158/72 99 09/21/20 22:13 97.9 F 78 18 158/72 99 09/21/20 21:37 98.6 F 75 20 140/76 98 09/21/20 20:43 83 20 142/74 98 09/21/20 19:38 82 19 151/76 99 09/21/20 18:00 86 18 142/70 98 09/21/20 17:30 76 18 100 09/21/20 17:00 84 18 142/77 09/21/20 16:35 99.5 F 85 18 142/77 99 Intake and Output 09/21/20 09/22/20 09/22/20 22:59 06:59 14:59 Output Total 180 Balance -180 Output: Urine 180 Other: Voiding Method Toilet Toilet Toilet # Voids 1 Weight 79.379 kg 80.4 kg Head normocephalic Neck supple Lungs clear to auscultation bilaterally no wheezing or crackles Heart regular rate and rhythm S1-S2, no rub or gallop Abdomen is soft nontender nondistended positive bowel sounds no hepatosplenomegaly Extremities no edema Neuro alert and orientated to 3 Results CBC & Chem 7: 03/09/21 17:27 09/21/20 17:27 Labs: Abnormal Lab Results - Last 24 Hours (Table) 09/21/20 09/21/20 09/21/20 Range/Units 17:27 17:27 20:41 APTT (22.0-30.0) sec Sodium 134 L (137-145) mmol/L Glucose 398 H (74-99) mg/dL POC Glucose (mg/dL) (75-99) mg/dL Troponin I 0.036 H* 0.038 H* (0.000-0.034) ng/mL Triglycerides (<150) mg/dL HDL Cholesterol (40-60) mg/dL 09/21/20 09/22/20 09/22/20 Range/Units 22:00 00:25 00:26 APTT 45.0 H (22.0-30.0) sec Sodium (137-145) mmol/L Glucose (74-99) mg/dL POC Glucose (mg/dL) 343 H (75-99) mg/dL Troponin I (0.000-0.034) ng/mL Triglycerides 153 H (<150) mg/dL HDL Cholesterol 84 H (40-60) mg/dL 09/22/20 09/22/20 09/22/20 Range/Units 03:14 05:59 11:32 APTT (22.0-30.0) sec Sodium (137-145) mmol/L Glucose (74-99) mg/dL POC Glucose (mg/dL) 226 H 173 H 170 H (75-99) mg/dL Troponin I (0.000-0.034) ng/mL Triglycerides (<150) mg/dL HDL Cholesterol (40-60) mg/dL Thrombosis Risk Factor Assmnt - Choose All That Apply Any of the Below Risk Factors Present?: Yes Each Factor Represents 1 point: Abnormal pulmonary function (COPD), Age 41-60 years, Obesity (BMI >25) Other Risk Factors: Yes Each Risk Factor Represents 3 Points: Family history of DVT/PE Thrombosis Risk Factor Assessment Total Risk Factor Score: 6 Thrombosis Risk Factor Assessment Level: High Risk Assessment and Plan Assessment: 1. Chest pain. Initial troponin 0.038. Cardiology services consulted. Maintained on heparin drip 2. Coronary artery disease with history of coronary artery bypass graft surgery and multiple stents. 3. Nicotine dependence. Patient educated at extensive length greater than 3 minutes about the importance of smoking cessation. Patient declined nicotine patch at this time 4. Hyperlipidemia. Maintained on statin 5. seizure disorder. Maintained on Keppra 6. History of essential hypertension 7. Hypothyroidism. Maintained on Synthroid 8. History of bipolar depression. Time with Patient: Greater than 30
[2020-09-22 16:50] LABS: Glucose,Whole Blood 147 mg/dL (75-99)
[2020-09-22] MEDS: HEPARIN SOD,PORK IN 0.45% NACL 25,000 UNIT in 0.45% NACL 1 250ML.BAG IV SCH (17:38)
[2020-09-22] MEDS: MIRTAZAPINE 45 MG TABLET PO SCH (20:10)
[2020-09-22] MEDS: QUEtiapine 50 MG TAB PO SCH (20:10)
--- NOTE | 2020-09-22 20:39 | ECHOF ---
Referral Reason:abnormal troponins MEASUREMENTS -------- HEIGHT: 162.6 cm WEIGHT: 80.3 kg BP: 117/67 RVIDd: 2.8 cm (< 3.3) IVSd: 1.2 cm (0.6 - 1.1) LVIDd: 3.0 cm (3.9 - 5.3) LVPWd: 1.3 cm (0.6 - 1.1) IVSs: 1.6 cm LVIDs: 2.3 cm LVPWs: 1.3 cm LAESV Index (A-L): 35.12 ml/m Ao Diam: 2.2 cm (2.0 - 3.7) AV Cusp: 1.6 cm (1.5 - 2.6) MV E Russ: 1.68 m/s MV DecT: 427 ms MV A Russ: 0.94 m/s MV E/A Ratio: 1.78 RAP: 5.00 mmHg RVSP: 28.22 mmHg FINDINGS -------- Sinus rhythm. Resting bradycardia (HR<60bpm). This was a technically difficult study with suboptimal views. The left ventricular size is normal. There is mild concentric left ventricular hypertrophy. Overa ll left ventricular systolic function is low-normal with, an EF between 50 - 55 %. The right ventricle is normal in size. LA is moderately dilated 34-39 ml/m2 The right atrial size is normal. Interatrial and interventricular septum intact. The aortic valve was not well visualized. There is no evidence of aortic regurgitation. There is no evidence of aortic stenosis. Normally functioning bioprosthetic mitral valve. The tricuspid valve appears structurally normal. Mild tricuspid regurgitation present. Right vent ricular systolic pressure is normal at < 35 mmHg. The right ventricular systolic pressure, as measu red by Doppler, is 28.22mmHg. The pulmonic valve was not well visualized. There is no pulmonic regurgitation present. The aortic root size is normal. IVC Not well visulized. There is no pericardial effusion. CONCLUSIONS -------- 1. There is mild concentric left ventricular hypertrophy. 2. Overall left ventricular systolic function is low-normal with, an EF between 50 - 55 %. 3. LA is moderately dilated 34-39 ml/m2 4. The aortic valve was not well visualized. 5. Mild tricuspid regurgitation present. SUBSCRIPTION CLERK: Melvina Mello RDCS
[2020-09-22 20:44] LABS: Glucose,Whole Blood 197 mg/dL (75-99)
[2020-09-22] MEDS ORDERED: QUEtiapine 50 MG TAB PO SCH (21:00)
[2020-09-23 06:17] LABS: Glucose,Whole Blood 106 mg/dL (75-99)
[2020-09-23] MEDS: PANTOPRAZOLE 40 MG TABLET PO SCH (06:38)
[2020-09-23] MEDS: LEVOTHYROXINE 50 MCG TAB PO SCH (06:38)
[2020-09-23] MEDS: INSULIN DETEMIR (LEVEMIR) 100 UNIT/ML SYR SQ SCH ×2 (06:39→20:52)
[2020-09-23] MEDS: HYDROcodone/APAP 5-325MG 1 EACH TAB PO PRN ×2 (07:00→23:13)
[2020-09-23] MEDS: INSULIN ASPART (NovoLOG) 100 UNIT/ML VIAL SQ SCH ×4 (07:42→20:52)
[2020-09-23] MEDS: SPIRONOLACTONE 25 MG TAB PO SCH (08:59)
[2020-09-23] MEDS: POTASSIUM CHLORIDE ER 20 MEQ TAB.ER PO SCH (08:59)
[2020-09-23] MEDS: ASPIRIN 81 MG PO SCH (08:59)
[2020-09-23] MEDS: hydrOXYzine pamoate 25 MG CAP PO SCH ×3 (08:59→20:51)
[2020-09-23] MEDS: ATORVASTATIN 80 MG TAB PO SCH (09:00)
[2020-09-23] MEDS: METOPROLOL TARTRATE 50 MG TAB PO SCH ×2 (09:00→20:52)
[2020-09-23] MEDS: CYCLOBENZAPRINE 10 MG TAB PO SCH ×3 (09:00→20:52)
[2020-09-23] MEDS: RANOLAZINE 500 MG TAB.ER.12H PO SCH ×2 (09:00→20:52)
[2020-09-23] MEDS: ISOSORBIDE MONONITRATE ER 60 MG TAB.ER.24H PO SCH (09:00)
[2020-09-23] MEDS: FUROSEMIDE 40 MG TAB PO SCH (09:01)
[2020-09-23] MEDS: TICAGRELOR 90 MG TAB PO SCH ×2 (09:01→20:52)
[2020-09-23] MEDS: SERTRALINE 50 MG TAB PO SCH (09:01)
[2020-09-23] MEDS: EZETIMIBE 10 MG TAB PO SCH (09:05)
[2020-09-23] MEDS: ARIPiprazole 5 MG TAB PO SCH (09:05)
[2020-09-23 09:35] LABS: Albumin 3.5 g/dL (3.5-5.0); Calcium 8.5 mg/dL (8.4-10.2); Potassium 4.3 mmol/L (3.5-5.1); Total Bilirubin 0.4 mg/dL (0.2-1.3); Total Protein 6.1 g/dL (6.3-8.2)
[2020-09-23 09:57] LABS: Basophils % (A) 1 %; Eosinophils # (A) 0.1 k/uL (0-0.7); Eosinophils % (A) 2 %; HCT 38.1 % (34.0-46.0); HGB 12.9 gm/dL (11.4-16.0); Lymphocytes % (A) 22 %; MCH 32.1 pg (25.0-35.0); MCHC 33.7 g/dL (31.0-37.0); MCV 95.2 fL (80.0-100.0); Mean Platelet Volume 7.5; Monocytes # (A) 0.3 k/uL (0-1.0); Monocytes % (A) 6 %; Neutrophils # (A) 2.9 k/uL (1.3-7.7); Neutrophils % (A) 67 %; Platelet Count 225 k/uL (150-450); RDW 13.5 % (11.5-15.5); WBC 4.4 k/uL (3.8-10.6)
[2020-09-23] MEDS ORDERED: NITROGLYCERIN SL TABS 0.4 MG TAB SUBLINGUAL PRN (10:08)
[2020-09-23] MEDS ORDERED: ALPRAZolam 0.5 MG TAB PO PRN (10:08)
[2020-09-23] MEDS ORDERED: ALPRAZolam 0.25 MG TAB PO PRN (10:08)
[2020-09-23 12:21] LABS: Glucose,Whole Blood 88 mg/dL (75-99)
--- NOTE | 2020-09-23 13:42 | P.PN ---
Subjective Progress Note Date: 09/23/20 This is a 55-year-old patient well-known to my services patient presented to ER with complaints of chest pain. Patient reports that chest pain started yesterday. Patient has a long-standing history of coronary artery disease including CABG and multiple stents. Patient is a smoker. Additional medical history includes diabetes mellitus, hypertension and hyperlipidemia. Patient reports she did have some difficulty breathing with episodes but denies any other associated symptoms. Initial troponin was mildly elevated at 0.038. Chest x-ray completed showing chronic changes without acute pulmonary process noticing significant change from 8 days earlier. At this time patient will be admitted and cardiology services consulted Objective - Vital Signs Vital signs: Vital Signs Temp 97.8 F 09/23/20 08:45 Pulse 59 L 09/23/20 08:45 Resp 16 09/23/20 08:45 BP 110/66 09/23/20 08:45 Pulse Ox 97 09/23/20 08:45 Intake & Output 09/22/20 09/23/20 09/23/20 18:59 06:59 18:59 Intake Total 1025.392 281.439 Balance 1025.392 281.439 Weight 81.2 kg Intake: Intake, IV Titration 295.392 81.439 Amount Heparin Sod,Pork in 0.45% 295.392 81.439 NaCl 25,000 unit In 0.45 % NaCl 1 250ml.bag @ 12 UNITS/KG/HR 9.525 mls/hr IV .Q24H [facility] Rx#: [id number] Oral 730 200 Other: Voiding Method Toilet Toilet Toilet # Voids 2 1 1 - Exam In general patient is alert and oriented 3 in no apparent distress Head normocephalic and atraumatic Neck supple no JVD no goiter Lungs clear to auscultation bilaterally no wheezing or crackles Heart regular rate and rhythm S1-S2, no rub or gallop Abdomen is soft nontender nondistended positive bowel sounds no hepatosplenomegaly Extremities no edema no cyanosis or clubbing Neuro alert and orientated to 3 - Labs CBC & Chem 7: 09/23/20 08:12 09/23/20 08:12 Labs: Abnormal Lab Results - Last 24 Hours (Table) 09/22/20 09/22/20 09/23/20 Range/Units 16:48 20:42 00:43 APTT 35.6 H (22.0-30.0) sec BUN (7-17) mg/dL Creatinine (0.52-1.04) mg/dL POC Glucose (mg/dL) 147 H 197 H (75-99) mg/dL Total Protein (6.3-8.2) g/dL 09/23/20 09/23/20 09/23/20 Range/Units 06:15 08:12 08:12 APTT 54.4 H (22.0-30.0) sec BUN 22 H (7-17) mg/dL Creatinine 1.25 H (0.52-1.04) mg/dL POC Glucose (mg/dL) 106 H (75-99) mg/dL Total Protein 6.1 L (6.3-8.2) g/dL Assessment and Plan Assessment: 1. Chest pain. Initial troponin 0.038. Cardiology services consulted. Maintained on heparin drip 2. Coronary artery disease with history of coronary artery bypass graft surgery and multiple stents. 3. Nicotine dependence. Patient educated at extensive length greater than 3 minutes about the importance of smoking cessation. Patient declined nicotine patch at this time 4. Hyperlipidemia. Maintained on statin 5. seizure disorder. Maintained on Keppra 6. History of essential hypertension 7. Hypothyroidism. Maintained on Synthroid 8. History of bipolar depression. Patient was evaluated by cardiology she is scheduled for cardiac catheterization tomorrow will follow closely Patient was counseled in length during this admission in regard to smoking cessation
--- NOTE | 2020-09-23 14:07 | P.PN ---
Subjective Progress Note Date: 09/23/20 HISTORY OF PRESENT ILLNESS: 09/22/2020 This is a 55-year-old female with a past medical history significant for coronary artery disease with previous CABG and PCI, mitral valve replacement, hypertension, hyperlipidemia, diabetes mellitus, COPD, and CVA. Patient follows in the office with Dr. Murillo. She also has seen Dr. Salcedo in [place]. We have been asked to see the patient in consultation for chest pain. Patient examined at the bedside. Patient was recently hospitalized on 09/13/2020 for chest pain. She was evaluated by cardiology at that time and medical management was rec ommended. She was discharged home on 09/15/2020. Patient states she has been having constant chest pain since she was discharged home. The pain is in the middle of her chest and goes to the left lateral side of her chest. She reports she has radiation down her arm. She reports feeling mildly nauseated as well. She states she was very diaphoretic which does not usually happen to her. She also reports some lower back pain. She states that she took aspirin and nitro yesterday without relief. The pain is not worse with deep inspiration. There is no tenderness with chest wall palpation. The pain is not worse with movement. EKG reveals sinus mechanism. Chest xray chronic changes without acute pulmonary process. Laboratory data: WBC 4.0. Hemoglobin 13.6. Platelet count 237. Sodium 134. Potassium 3.8. Magnesium 1.8. BUN 13. Creatinine 0.76. Troponin 0.036. 0.038. 0.031. Current home cardiac medications include Aldactone 25 mg daily, Lasix 40 mg daily, Prolixin 1090 mg twice a day, Ranexa 1000 g twice a day, lisinopril 2.5 mg daily, metoprolol 50 g twice a day, Imdur 30 mg daily, Zetia 10 mg daily, Lipitor 80 mg daily, aspirin 81 mg daily Most recent echocardiogram obtained in May 2020 revealed ejection fraction 55-60%, normally functioning bioprosthetic mitral valve, and mild tricuspid regurgitation Cardiac catheterization history: 08/18/[address] Murillo revealing occluded LAD in the midportion. ROBLES to LAD is patent. Occluded ramus intermedius which se ems to be an in-stent occlusion. Occluded left circumflex which also seems to be an in-stent occlusion. Pain started in the right coronary artery. Medical management was recommended. 09/23/2020 Patient examined this morning at the bedside. Patient continues to have mild chest discomfort. She denies shortness of breath. She remains on IV heparin. Echocardiogram completed revealing ejection fraction 50-55% with mild tricuspid regurgitation. PHYSICAL EXAM: VITAL SIGNS: Reviewed. GENERAL: Well-developed in no acute distress. HEENT: Head is normocephalic. Pupils are equal, round. Sclerae anicteric. Mucous membranes of the mouth are moist. Neck supple. No JVD or thyromegaly LUNGS: Respirations even and unlabored. Lungs essentially clear to auscultation bilaterally. HEART: Regular rate and rhythm. S1 and S2 heard. ABDOMEN: Soft. Nondistended. Nontender. EXTREMITIES: Normal range of motion. No clubbing or cyanosis. Peripheral pulses intact. No lower extremity edema NEUROLOGIC: Awake and alert. Oriented x 3. ASSESSMENT: Chest pain with mildly abnormal troponins Coronary artery disease with previous CABG and PCI Valvular heart disease with prior bioprosthetic mitral valve replacement Hypertension Hyperlipidemia Diabetes mellitus Peripheral vascular disease History of CVA 4 per patient PD Nicotine dependence PLAN: Continue current cardiac medications Continue telemetry monitoring Continue to monitor blood pressure Continue IV heparin Patient to undergo cardiac catheterization tomorrow with Dr. Murillo Further recommendations pending patient course Nurse practitioner note has been reviewed by physician. Signing provider agrees with the documented findings, assessment, and plan of care. Objective - Vital Signs Vital signs: Vital Signs Temp 97.8 F 09/23/20 08:45 Pulse 59 L 09/23/20 08:45 Resp 16 09/23/20 08:45 BP 110/66 09/23/20 08:45 Pulse Ox 97 09/23/20 08:45 Intake & Output 09/22/20 09/23/20 09/23/20 18:59 06:59 18:59 Intake Total 1025.392 281.439 Balance 1025.392 281.439 Weight 81.2 kg Intake: Intake, IV Titration 295.392 81.439 Amount Heparin Sod,Pork in 0.45% 295.392 81.439 NaCl 25,000 unit In 0.45 % NaCl 1 250ml.bag @ 12 UNITS/KG/HR 9.525 mls/hr IV .Q24H [facility] Rx#: [id number] Oral 730 200 Other: Voiding Method Toilet Toilet Toilet # Voids 2 1 1 - Labs CBC & Chem 7: 09/23/20 08:12 09/23/20 08:12 Labs: Abnormal Lab Results - Last 24 Hours (Table) 09/22/20 09/22/20 09/23/20 Range/Units 16:48 20:42 00:43 APTT 35.6 H (22.0-30.0) sec BUN (7-17) mg/dL Creatinine (0.52-1.04) mg/dL POC Glucose (mg/dL) 147 H 197 H (75-99) mg/dL Total Protein (6.3-8.2) g/dL 09/23/20 09/23/20 09/23/20 Range/Units 06:15 08:12 08:12 APTT 54.4 H (22.0-30.0) sec BUN 22 H (7-17) mg/dL Creatinine 1.25 H (0.52-1.04) mg/dL POC Glucose (mg/dL) 106 H (75-99) mg/dL Total Protein 6.1 L (6.3-8.2) g/dL
[2020-09-23 17:01] LABS: Glucose,Whole Blood 180 mg/dL (75-99)
[2020-09-23] MEDS: HEPARIN SOD,PORK IN 0.45% NACL 25,000 UNIT in 0.45% NACL 1 250ML.BAG IV SCH (17:12)
[2020-09-23 20:18] LABS: Glucose,Whole Blood 160 mg/dL (75-99)
[2020-09-23] MEDS: MIRTAZAPINE 45 MG TABLET PO SCH (20:52)
[2020-09-23] MEDS: QUEtiapine 50 MG TAB PO SCH (20:52)
[2020-09-23] MEDS ORDERED: SODIUM CHLORIDE 0.9% 1,000 ML in EMPTY BAG 1 BAG IV ONE (23:00)
[2020-09-24 06:24] LABS: Glucose,Whole Blood 89 mg/dL (75-99)
[2020-09-24] MEDS: LEVOTHYROXINE 50 MCG TAB PO SCH (06:54)
[2020-09-24] MEDS: SERTRALINE 50 MG TAB PO SCH (06:54)
[2020-09-24] MEDS: POTASSIUM CHLORIDE ER 20 MEQ TAB.ER PO SCH (06:54)
[2020-09-24] MEDS: CYCLOBENZAPRINE 10 MG TAB PO SCH ×2 (06:54→16:47)
[2020-09-24] MEDS: ARIPiprazole 5 MG TAB PO SCH (06:54)
[2020-09-24] MEDS: EZETIMIBE 10 MG TAB PO SCH (06:54)
[2020-09-24] MEDS: PANTOPRAZOLE 40 MG TABLET PO SCH (06:54)
[2020-09-24] MEDS: RANOLAZINE 500 MG TAB.ER.12H PO SCH (06:54)
[2020-09-24] MEDS: hydrOXYzine pamoate 25 MG CAP PO SCH ×2 (06:55→16:47)
[2020-09-24] MEDS: METOPROLOL TARTRATE 50 MG TAB PO SCH (06:55)
[2020-09-24] MEDS: ISOSORBIDE MONONITRATE ER 60 MG TAB.ER.24H PO SCH (06:55)
[2020-09-24] MEDS ORDERED: HEPARIN SODIUM,PORCINE 2,500 UNIT in SODIUM CHLORIDE 0.9% 250 ML IRRIGATION PRN (07:00)
[2020-09-24] MEDS ORDERED: ATORVASTATIN 80 MG TAB PO ONE (07:00)
[2020-09-24] MEDS ORDERED: HEPARIN SODIUM,PORCINE 10,000 UNIT in SODIUM CHLORIDE 0.9% 1,000 ML IRRIGATION PRN (07:00)
[2020-09-24] MEDS ORDERED: ASPIRIN 81 MG PO ONE (07:00)
[2020-09-24 07:20] LABS: Basophils % (A) 0 %; Eosinophils # (A) 0.1 k/uL (0-0.7); Eosinophils % (A) 1 %; HCT 35.1 % (34.0-46.0); HGB 11.6 gm/dL (11.4-16.0); Lymphocytes # (A) 0.6 k/uL (1.0-4.8); Lymphocytes % (A) 15 %; MCH 31.1 pg (25.0-35.0); MCHC 33.2 g/dL (31.0-37.0); MCV 93.8 fL (80.0-100.0); Mean Platelet Volume 6.9; Monocytes # (A) 0.2 k/uL (0-1.0); Monocytes % (A) 6 %; Neutrophils # (A) 3.2 k/uL (1.3-7.7); Neutrophils % (A) 77 %; Platelet Count 211 k/uL (150-450); RBC 3.74 m/uL (3.80-5.40); RDW 13.6 % (11.5-15.5); WBC 4.2 k/uL (3.8-10.6)
[2020-09-24 07:35] LABS: Albumin 3.4 g/dL (3.5-5.0); Calcium 8.5 mg/dL (8.4-10.2); Potassium 4.2 mmol/L (3.5-5.1); Total Bilirubin 0.3 mg/dL (0.2-1.3); Total Protein 5.8 g/dL (6.3-8.2)
[2020-09-24 08:05] LABS: Glucose,Whole Blood 64 mg/dL (75-99)
[2020-09-24 08:24] LABS: Glucose,Whole Blood 88 mg/dL (75-99)
[2020-09-24] MEDS ORDERED: SODIUM CHLORIDE 0.9% 1,000 ML IV SCH ×2 (09:30→11:30)
[2020-09-24] MEDS: TICAGRELOR 90 MG TAB PO SCH (09:53)
[2020-09-24] MEDS ORDERED: LIDOCAINE 1% INJ 10MG/ML (20 ML MDV) ONE (10:03)
[2020-09-24] MEDS ORDERED: IV FLUID CONTINUATION 600 ML IV ONE (10:15)
--- NOTE | 2020-09-24 10:23 | P.PN ---
Subjective Progress Note Date: 09/24/20 This is a 55-year-old patient well-known to my services patient presented to ER with complaints of chest pain. Patient reports that chest pain started yesterday. Patient has a long-standing history of coronary artery disease including CABG and multiple stents. Patient is a smoker. Additional medical history includes diabetes mellitus, hypertension and hyperlipidemia. Patient reports she did have some difficulty breathing with episodes but denies any other associated symptoms. Initial troponin was mildly elevated at 0.038. Chest x-ray completed showing chronic changes without acute pulmonary process noticing significant change from 8 days earlier. At this time patient will be admitted and cardiology services consulted On 09/24/2020 patient is alert and oriented 3. Patient is currently sitting on the floor reports that she slid off recliner chair nurse is at bedside patient denies any injury denies hitting her head states she just slid off the recliner trying to find her phone. Patient educated on the importance of calling nursing staff for assistance. Patient going down for cardiac catheterization today. CREAT elevated at 1.5. normal saline at 50 ordered. At this time patient denies chest pain or shortness breath. Patient denies nausea vomiting or diarrhea. Patient denies any urinary burning or frequency Objective - Vital Signs Vital signs: Vital Signs Temp 98.0 F 09/23/20 20:00 Pulse 71 09/24/20 04:00 Resp 18 09/24/20 04:00 BP 123/76 09/24/20 04:00 Pulse Ox 98 09/24/20 04:00 Intake & Output 09/23/20 09/24/20 09/24/20 18:59 06:59 18:59 Intake Total 524.88 Balance 524.88 Weight 81.7 kg Intake: Intake, IV Titration 166.88 Amount Heparin Sod,Pork in 0.45% 166.88 NaCl 25,000 unit In 0.45 % NaCl 1 250ml.bag @ 12 UNITS/KG/HR 9.525 mls/hr IV .Q24H [facility] Rx#: [id number] Oral 358 Other: Voiding Method Toilet Toilet # Voids 1 2 - Exam In general patient is alert and oriented 3 in no apparent distress Head normocephalic and atraumatic Neck supple no JVD no goiter Lungs clear to auscultation bilaterally no wheezing or crackles Heart regular rate and rhythm S1-S2, no rub or gallop Abdomen is soft nontender nondistended positive bowel sounds no hepatosplenomegaly Extremities no edema no cyanosis or clubbing Neuro alert and orientated to 3 - Labs CBC & Chem 7: 09/24/20 06:50 09/24/20 06:50 Labs: Abnormal Lab Results - Last 24 Hours (Table) 09/23/20 09/23/20 09/24/20 Range/Units 16:59 20:15 06:50 RBC 3.74 L (3.80-5.40) m/uL Lymphocytes # 0.6 L (1.0-4.8) k/uL APTT (22.0-30.0) sec BUN (7-17) mg/dL Creatinine (0.52-1.04) mg/dL Glucose (74-99) mg/dL POC Glucose (mg/dL) 180 H 160 H (75-99) mg/dL Total Protein (6.3-8.2) g/dL Albumin (3.5-5.0) g/dL 09/24/20 09/24/20 09/24/20 Range/Units 06:50 06:50 08:03 RBC (3.80-5.40) m/uL Lymphocytes # (1.0-4.8) k/uL APTT 57.2 H (22.0-30.0) sec BUN 29 H (7-17) mg/dL Creatinine 1.50 H (0.52-1.04) mg/dL Glucose 72 L (74-99) mg/dL POC Glucose (mg/dL) 64 L (75-99) mg/dL Total Protein 5.8 L (6.3-8.2) g/dL Albumin 3.4 L (3.5-5.0) g/dL Assessment and Plan Assessment: 1. Chest pain. Initial troponin 0.038. Cardiology services consulted. Maintained on heparin drip. Cardiac catheterization 09/24/2020 2. Coronary artery disease with history of coronary artery bypass graft surgery and multiple stents. 3. Nicotine dependence. Patient educated at extensive length greater than 3 minutes about the importance of smoking cessation. Patient declined nicotine patch at this time 4. Hyperlipidemia. Maintained on statin 5. seizure disorder. Maintained on Keppra 6. History of essential hypertension 7. Hypothyroidism. Maintained on Synthroid 8. History of bipolar depression. 9. Acute kidney injury. Creatinine 1.50 and bun 29. Normal saline at 50 ordered repeat labs ordered for a.m. Patient was evaluated by cardiology she is scheduled for cardiac catheterization tomorrow will follow closely Patient was counseled in length during this admission in regard to smoking cessation PT OT consulted due to increased weakness and falls
[2020-09-24] MEDS ORDERED: MIDAZOLAM 2 MG/2 ML VIAL IV ONE (10:41)
[2020-09-24] MEDS ORDERED: LIDOCAINE 1% INJ 10MG/ML (20 ML MDV) SQ ONE (10:43)
[2020-09-24] MEDS ORDERED: FLUMAZENIL 0.1 MG/ML 5 ML VIAL IVP ONE (10:53)
[2020-09-24] MEDS ORDERED: IOPAMIDOL-370 125ML BTL INJ ONE (10:59)
[2020-09-24] MEDS ORDERED: RX INFO: IV CONTRAST WAS GIVEN 1 EACH MISC MISCELLANE PRN (11:16)
[2020-09-24 12:09] LABS: Glucose,Whole Blood 63 mg/dL (75-99)
[2020-09-24 12:26] LABS: Glucose,Whole Blood 64 mg/dL (75-99)
--- NOTE | 2020-09-24 12:27 | CC ---
CARDIAC CATHETERIZATION REPORT DATE OF SERVICE: September 24, 2020 PERFORMING PHYSICIAN: Elier Murillo MD. PROCEDURE PERFORMED: 1. Selective left and right coronary angiogram. 2. ROBLES to LAD angiogram. 3. Right common femoral artery angiogram. 4. Ultrasound guidance access of the right common femoral artery. INDICATION: This is a 55-year-old female patient with extensive coronary artery disease and multiple angioplasties in the past as well as coronary artery bypass grafting with the last heart catheterization showing patent stent in the RCA with occluded stents in the left circumflex and ramus intermedius and patent ROBLES to LAD, presented to the hospital with chest discomfort and ruled in for acute vac-[id number]-[id number] myocardial infarction. She was seen by Dr. Garcia and because she continues to have ongoing chest discomfort, a heart catheterization was advised. APPROACH: Left common femoral artery. COMPLICATION: None. LEVEL OF SEDATION: Moderate with sedation length of 20 minutes. PROCEDURE DESCRIPTION: After obtaining an informed consent, the patient was brought to the cardiac fence laborer. The left common femoral artery was cannulated using micropuncture technique, the micropuncture wire passed easily then I placed a 6-Maltese sheath at the left common femoral artery. I pre-dilated the artery using initially 5-Maltese and then 7-Maltese dilator. After that I did selective left and right coronary angiogram, which JL4 and JR4 catheters. Subsequently, ROBLES to LAD angiogram was performed using the JR4 catheter. The procedure was completed without any complication. SELECTIVE CORONARY ANGIOGRAM: 1. The left main appeared to be calcified without obstructive disease. Bifurcates into left circumflex and ramus intermedius and left anterior descending artery. 2. The left circumflex is a large caliber vessel. It is a nondominant vessel. The left circumflex is stented with multiple layers of stents and the stents appear to be occluded. 3. The ramus intermedius is stented as well with multiple layers of stent and the stent appeared to be occluded as well. 4. The LAD is occluded in the proximal to midportion. The LAD gives rise into a medium-sized diagonal branch which appeared to be angiographically normal. 5. The right coronary artery is stented and the stent is patent. The RCA has multiple stents. CORONARY BYPASS ANGIOGRAM: The ROBLES to LAD is patent. The LAD distal to ROBLES anastomosis has a lesion appears to be in the range of 60% to 70%. CONCLUSION: 1. Normal left main coronary artery. 2. Occluded left circumflex which seems to be in-stent occlusion with multiple layers of stent. 3. Occluded ramus intermedius coronary artery, which seems to be also in-stent occlusion with multiple layers of stents. 4. Occluded left anterior descending artery. The ROBLES to LAD is patent. The mid to distal LAD has lesion appeared to be in the range of 60% to 70%. 5. Patent stents in the right coronary artery. POSTPROCEDURE MANAGEMENT: 1. I would advise at this point continue the current medical regimen including oral nitrate as well as Ranexa. 2. Follow up with the patient. MMODL / IJN: [id number] /
[2020-09-24] MEDS: INSULIN DETEMIR (LEVEMIR) 100 UNIT/ML SYR SQ SCH (12:38)
[2020-09-24] MEDS: INSULIN ASPART (NovoLOG) 100 UNIT/ML VIAL SQ SCH ×3 (12:38→17:38)
[2020-09-24] MEDS: ASPIRIN 81 MG PO SCH (12:39)
[2020-09-24] MEDS: ATORVASTATIN 80 MG TAB PO SCH (12:39)
[2020-09-24] MEDS: SPIRONOLACTONE 25 MG TAB PO SCH (12:44)
[2020-09-24] MEDS: FUROSEMIDE 40 MG TAB PO SCH (12:44)
[2020-09-24 12:45] LABS: Glucose,Whole Blood 82 mg/dL (75-99)
[2020-09-24 13:44] LABS: Glucose,Whole Blood 111 mg/dL (75-99)
[2020-09-24] MEDS: HEPARIN SOD,PORK IN 0.45% NACL 25,000 UNIT in 0.45% NACL 1 250ML.BAG IV SCH (15:55)
[2020-09-24 17:00] LABS: Glucose,Whole Blood 211 mg/dL (75-99)
[2020-09-24 18:52] VITALS: BP 130/60; PULSE 65; RESP 18; TEMP 98.3
--- NOTE | 2020-09-27 08:25 | CDI ---
Documentation Clarification Form Date: 09/27/2020 08:23:00 AM From: Martha Chris CCS Admit Date: 09/23/2020 04:54:00 PM Patient Name: Aminta Sheikh Visit Number: [id number] Discharge Date: 09/24/2020 07:00:00 PM ATTENTION: The Clinical Documentation Specialists (CDI) and [facility] Coding Staff appreciate your assistance in clarifying documentation. Please respond to the clarification below the line at the bottom and electronically sign. The CDI & [facility] Coding staff will review the response and follow-up if needed. Please note: Queries are made part of the Legal Health Record. If you have any questions, please contact the author of this message via ITS. Dr. Jerson Aguilar The diagnosis non-ST elevation myocardial infarction was documented in CATH Report, but is not noted in subsequent documentation. CATH Report: presented to the hospital with chest discomfort and ruled in for acute wab-XM-[id number] myocardial infarction. History/Risk Factors: DM, CAD, HTN, Post CABG, COPD Clinical Indicators: Chest pain, Elevated troponin Lab: Troponin 0.036, 0.038, 0.031 CATH: CONCLUSION: 1.Normal left main coronary artery. 2.Occluded left circumflex which seems to be in-stent occlusion with multiple layers of stent. 3.Occluded ramus intermedius coronary artery, which seems to be also in-stent occlusion with multiple layers of stents. 4.Occluded left anterior descending artery.The ROBLES to LAD is patent.The mid to distal LAD has lesion appeared to be in the range of 60% to 70%. 5.Patent stents in the right coronary artery. POSTPROCEDURE MANAGEMENT: 1.I would advise at this point continue the current medical regimen including oral nitrate as well as Ranexa. 2.Follow up with the patient. Treatment: Heparin IV, Nitroglycerin oral and topical, Ranexa PO Please clarify if the NSTEMI was: Present/active this admission Treated and resolved this admission Ruled out Other, please specify Clinically unable to determine Present and active this admission MTDD
--- NOTE | 2020-09-29 10:56 | P.DS ---
Providers Date of admission: 09/23/20 16:54 Expected date of discharge: 09/24/20 Attending physician: Jerson Aguilar Consults: 09/21/20 20:09 Consult Physician Urgent Consulting Provider: [facility] Reason/Comments: Unstable angina Do you want consulting provider notified?: Yes Primary care physician: Jerson Aguliar [facility] Course: Discharge diagnosis 1. Chest pain. Initial troponin 0.038. Cardiology services consulted. Maintained on heparin drip. Cardiac catheterization 09/24/2020 completed with ruminations for medical management 2. Coronary artery disease with history of coronary artery bypass graft surgery and multiple stents. 3. Nicotine dependence. Patient educated at extensive length greater than 3 minutes about the importance of smoking cessation. Patient declined nicotine patch at this time 4. Hyperlipidemia. Maintained on statin 5. seizure disorder. Maintained on Keppra 6. History of essential hypertension 7. Hypothyroidism. Maintained on Synthroid 8. History of bipolar depression. 9. Acute kidney injury. Creatinine 1.50 and bun 29. Normal saline at 50 ordered repeat labs ordered for a.m. Hospital course This is a 55-year-old patient well-known to my services patient presented to ER with complaints of chest pain. Patient reports that chest pain started yesterday. Patient has a long-standing history of coronary artery disease including CABG and multiple stents. Patient is a smoker. Additional medical history includes diabetes mellitus, hypertension and hyperlipidemia. Patient reports she did have some difficulty breathing with episodes but denies any other associated symptoms. Initial troponin was mildly elevated at 0.038. Chest x-ray completed showing chronic changes without acute pulmonary process noticing significant change from 8 days earlier. At this time patient will be admitted and cardiology services consulted On 09/24/2020 patient is alert and oriented 3. Patient is currently sitting on the floor reports that she slid off recliner chair nurse is at bedside patient denies any injury denies hitting her head states she just slid off the recliner trying to find her phone. Patient educated on the importance of calling nursing staff for assistance. Patient going down for cardiac catheterization today. CREAT elevated at 1.5. normal saline at 50 ordered. At this time patient denies chest pain or shortness breath. Patient denies nausea vomiting or diarrhea. Patient denies any urinary burning or frequency Per nursing notes patient left AGAINST MEDICAL ADVICE. Plan - Discharge Summary Discharge Rx Participant: Yes New Discharge Prescriptions: No Action RX: Sertraline [Zoloft] 50 mg PO DAILY RX: Ranolazine [Ranexa] 1,000 mg PO BID RX: QUEtiapine [SEROquel] 50 mg PO HS RX: Mirtazapine [Remeron] 45 mg PO HS RX: INSULIN ASPART (NovoLOG) [NovoLOG (formulary)] See Protocol SQ AC-TID PRN PRN Reason: HIGH BLOOD SUGAR RX: Levothyroxine Sodium [Synthroid] 175 mcg PO DAILY RX: hydrOXYzine pamoate [Vistaril] 25 mg PO TID RX: Isosorbide Mononitrate ER [Imdur] 30 mg PO DAILY RX: Cyclobenzaprine [Flexeril] 10 mg PO TID RX: Atorvastatin [Lipitor] 80 mg PO DAILY RX: ARIPiprazole [Abilify] 5 mg PO DAILY RX: Loperamide [Imodium] 2 mg PO QID PRN PRN Reason: Diarrhea RX: Ticagrelor [Brilinta] 90 mg PO BID tab RX: Insulin Glargine,Hum.rec.anlog [Lantus Solostar] 30 unit SQ BID #0 RX: Lidocaine 5% Patch [Lidoderm 5% Patch] 1 - 2 patch TOPICAL DAILY PRN PRN Reason: lower back pain RX: Aspirin 81 mg PO DAILY chew RX: lisinopriL [Zestril] 2.5 mg PO DAILY tab RX: Nitroglycerin Sl Tabs [Nitrostat] 0.4 mg SL Q5M PRN PRN Reason: Chest Pain RX: HYDROcodone/APAP 5-325MG [[place] 5-325] 1 tab PO TID PRN PRN Reason: Pain RX: Metoprolol Tartrate [Lopressor] 50 mg PO BID 60 Days #30 tab RX: Ezetimibe [Zetia] 10 mg PO DAILY 30 Days #30 tab Albuterol Inhaler [Ventolin Hfa Inhaler] 2 puff INHALATION RT-QID PRN PRN Reason: Shortness Of Breath tiZANidine [Zanaflex] 4 mg PO TID PRN PRN Reason: Muscle Pain Spironolactone [Aldactone] 25 mg PO DAILY Potassium Chloride ER [K-Dur 20] 20 meq PO DAILY RX: Furosemide [Lasix] 40 mg PO DAILY Discharge Medication List RX: ARIPiprazole [Abilify] 5 mg PO DAILY 05/21/20 [History] RX: Atorvastatin [Lipitor] 80 mg PO DAILY 05/21/20 [History] RX: Cyclobenzaprine [Flexeril] 10 mg PO TID 05/21/20 [History] RX: INSULIN ASPART (NovoLOG) [NovoLOG (formulary)] See Protocol SQ AC-TID PRN 05/21/20 [History] RX: Isosorbide Mononitrate ER [Imdur] 30 mg PO DAILY 05/21/20 [History] RX: Levothyroxine Sodium [Synthroid] 175 mcg PO DAILY 05/21/20 [History] RX: Mirtazapine [Remeron] 45 mg PO HS 05/21/20 [History] RX: QUEtiapine [SEROquel] 50 mg PO HS 05/21/20 [History] RX: Ranolazine [Ranexa] 1,000 mg PO BID 05/21/20 [History] RX: Sertraline [Zoloft] 50 mg PO DAILY 05/21/20 [History] RX: hydrOXYzine pamoate [Vistaril] 25 mg PO TID 05/21/20 [History] RX: Loperamide [Imodium] 2 mg PO QID PRN 06/08/20 [History] RX: Ticagrelor [Brilinta] 90 mg PO BID tab 06/27/20 [Rx] RX: Insulin Glargine,Hum.rec.anlog [Lantus Solostar] 30 unit SQ BID #0 07/14/20 [Rx] RX: Lidocaine 5% Patch [Lidoderm 5% Patch] 1 - 2 patch TOPICAL DAILY PRN 07/20/20 [History] RX: Aspirin 81 mg PO DAILY chew 08/20/20 [Rx] RX: lisinopriL [Zestril] 2.5 mg PO DAILY tab 08/20/20 [Rx] RX: HYDROcodone/APAP 5-325MG [[place] 5-325] 1 tab PO TID PRN 09/13/20 [History] RX: Nitroglycerin Sl Tabs [Nitrostat] 0.4 mg SL Q5M PRN 09/13/20 [History] RX: Ezetimibe [Zetia] 10 mg PO DAILY 30 Days #30 tab 09/15/20 [Rx] RX: Metoprolol Tartrate [Lopressor] 50 mg PO BID 60 Days #30 tab 09/15/20 [Rx] Albuterol Inhaler [Ventolin Hfa Inhaler] 2 puff INHALATION RT-QID PRN 09/21/20 [History] Potassium Chloride ER [K-Dur 20] 20 meq PO DAILY 09/21/20 [History] RX: Furosemide [Lasix] 40 mg PO DAILY 09/21/20 [History] Spironolactone [Aldactone] 25 mg PO DAILY 09/21/20 [History] tiZANidine [Zanaflex] 4 mg PO TID PRN 09/21/20 [History] Follow up Appointment(s)/Referral(s): Jerson Aguilar MD [Primary Care Provider] - 1-2 days Discharge Disposition: Left Against Medical Advice
== END 2020-09-24 19:00 | disposition left against medical advice (07) | DRG 281 ==
LOC: EC 16:28 → 3SCARD 20:11 → OBSVTOIN 09-23 16:54
PROVIDERS: ADMIT Internal Medicine; ATTEND Internal Medicine
PROC: B2111ZZ Fluoroscopy of Multiple Coronary Arteries using Low Osmolar Contrast (ICD-10-PCS; 2020-09-24)
PROC: 4A023N7 Measurement of Cardiac Sampling and Pressure, Left Heart, Percutaneous Approach (ICD-10-PCS; principal; 2020-09-24 10:30)
DX: I21.4 Non-ST elevation (NSTEMI) myocardial infarction (principal); F31.30 Bipolar disorder, current episode depressed, mild or moderate severity, unspecified; N17.9 Acute kidney failure, unspecified; T82.855A Stenosis of coronary artery stent, initial encounter; Z20.822 Contact with and (suspected) exposure to COVID-19; J44.9 Chronic obstructive pulmonary disease, unspecified; Z95.3 Presence of xenogenic heart valve; E11.51 Type 2 diabetes mellitus with diabetic peripheral angiopathy without gangrene; Z95.1 Presence of aortocoronary bypass graft; G40.909 Epilepsy, unspecified, not intractable, without status epilepticus; Z79.4 Long term (current) use of insulin; I25.10 Atherosclerotic heart disease of native coronary artery without angina pectoris; F41.9 Anxiety disorder, unspecified; E78.5 Hyperlipidemia, unspecified; F17.200 Nicotine dependence, unspecified, uncomplicated; E03.9 Hypothyroidism, unspecified; I10 Essential (primary) hypertension; I07.1 Rheumatic tricuspid insufficiency; Z71.6 Tobacco abuse counseling; I25.2 Old myocardial infarction; Z79.82 Long term (current) use of aspirin; Z79.890 Hormone replacement therapy; Z79.899 Other long term (current) drug therapy; Z79.02 Long term (current) use of antithrombotics/antiplatelets; Z95.5 Presence of coronary angioplasty implant and graft; Z86.73 Personal history of transient ischemic attack (TIA), and cerebral infarction without residual deficits; Z87.19 Personal history of other diseases of the digestive system; Z87.01 Personal history of pneumonia (recurrent); Z90.49 Acquired absence of other specified parts of digestive tract; Z90.710 Acquired absence of both cervix and uterus; Z95.820 Peripheral vascular angioplasty status with implants and grafts; Z88.8 Allergy status to other drugs, medicaments and biological substances; Z91.013 Allergy to seafood; Z82.49 Family history of ischemic heart disease and other diseases of the circulatory system
CPT/HCPCS: 36415; 71046; 80053; 80061; 83735; 83880; 84484; 85025; 85610; 85730; 87635; 93005; 93306; 93455; 96365; 96366; 96376; 99291

== ENCOUNTER 2020-10-01 18:22 | Observation (INO) | payer MEDICARE, OTHER ==
[2020-10-01 20:18] LABS: Basophils % (A) 1 %; Eosinophils # (A) 0.1 k/uL (0-0.7); Eosinophils % (A) 2 %; HCT 38.8 % (34.0-46.0); HGB 13.2 gm/dL (11.4-16.0); Lymphocytes # (A) 1.1 k/uL (1.0-4.8); Lymphocytes % (A) 30 %; MCH 31.5 pg (25.0-35.0); MCHC 34.1 g/dL (31.0-37.0); MCV 92.4 fL (80.0-100.0); Monocytes # (A) 0.3 k/uL (0-1.0); Monocytes % (A) 8 %; Neutrophils # (A) 2.1 k/uL (1.3-7.7); Neutrophils % (A) 57 %; Platelet Count 211 k/uL (150-450); RDW 13.1 % (11.5-15.5); WBC 3.7 k/uL (3.8-10.6)
[2020-10-01 20:27] LABS: ALT 18 U/L (4-34); AST 22 U/L (14-36); African American GFR (CKD) >90 (>60 ml/min/1.73 sqM); Albumin 4.1 g/dL (3.5-5.0); Alkaline Phosphatase 119 U/L (38-126); Anion Gap 6 mmol/L; Blood Urea Nitrogen 16 mg/dL (7-17); Calcium 8.5 mg/dL (8.4-10.2); Carbon Dioxide 24 mmol/L (22-30); Chloride 101 mmol/L (98-107); Glucose 332 mg/dL (74-99); Non-African American GFR(CKD) >90 (>60 ml/min/1.73 sqM); Potassium 4.1 mmol/L (3.5-5.1); Sodium 131 mmol/L (137-145); Total Bilirubin 0.4 mg/dL (0.2-1.3); Total Protein 6.8 g/dL (6.3-8.2)
[2020-10-01] MEDS ORDERED: NALOXONE 0.4 MG/ML 1 ML VIAL IV PRN (20:51)
--- NOTE | 2020-10-01 20:51 | ED ---
Female Urogenital HPI - General Chief complaint: Vaginal Bleeding Stated complaint: Vaginal Bleeding Time Seen by Provider: 10/01/20 18:33 Source: patient, EMS Mode of arrival: EMS Limitations: no limitations - History of Present Illness Initial comments: Patient is a transfer from [facility]. Originally presented to their facility with reported chest pain and vaginal bleeding. Patient has been seen multiple times in the emergency department for chest pain. She did recently have stent placement. Evaluation was performed because of the chest pain. Patient then began reporting for the past 5 days she has had vaginal bleeding. Has bright red blood on the toilet paper when she wipes. Patient is status post hysterectomy. Denies that it is hematuria. No history of GI bleed. No melenic stools or hematochezia. Evaluation at [facility] demonstrated urinary tract infection. Troponin was negative. CT performed which demonstrated intraluminal bladder air with concern for fistula formation with the vaginal cuff. Chest x- ray demonstrates no consolidation or effusion. Patient was given a dose of Rocephin and Flagyl and sent to our emergency department for further evaluation. Pelvic exam was not performed on the patient at their facility. No other alleviating, precipitating or modifying factors - Related Data Home Medications Medication Instructions Recorded Confirmed ARIPiprazole [Abilify] 5 mg PO DAILY 05/21/20 10/01/20 Atorvastatin [Lipitor] 80 mg PO DAILY 05/21/20 10/01/20 Cyclobenzaprine [Flexeril] 10 mg PO TID 05/21/20 10/01/20 INSULIN ASPART (NovoLOG) [NovoLOG See Protocol SQ AC-TID PRN 05/21/20 10/01/20 (formulary)] Levothyroxine Sodium [Synthroid] 175 mcg PO DAILY 05/21/20 10/01/20 Mirtazapine [Remeron] 45 mg PO HS 05/21/20 10/01/20 QUEtiapine [SEROquel] 50 mg PO HS 05/21/20 10/01/20 Ranolazine [Ranexa] 1,000 mg PO BID 05/21/20 10/01/20 Sertraline [Zoloft] 50 mg PO DAILY 05/21/20 10/01/20 hydrOXYzine pamoate [Vistaril] 25 mg PO TID 05/21/20 10/01/20 Loperamide [Imodium] 2 mg PO QID PRN 06/08/20 10/01/20 Lidocaine 5% Patch [Lidoderm 5% 1 - 2 patch TOPICAL DAILY PRN 07/20/20 10/01/20 Patch] HYDROcodone/APAP 5-325MG [[place] 1 tab PO TID PRN 09/13/20 10/01/20 5-325] Nitroglycerin Sl Tabs [Nitrostat] 0.4 mg SL Q5M PRN 09/13/20 10/01/20 Albuterol Inhaler [Ventolin Hfa 2 puff INHALATION RT-QID PRN 09/21/20 10/01/20 Inhaler] Furosemide [Lasix] 40 mg PO DAILY 09/21/20 10/01/20 Potassium Chloride ER [K-Dur 20] 20 meq PO DAILY 09/21/20 10/01/20 Spironolactone [Aldactone] 25 mg PO DAILY 09/21/20 10/01/20 tiZANidine [Zanaflex] 4 mg PO TID PRN 09/21/20 10/01/20 Previous Rx's Medication Instructions Recorded Ticagrelor [Brilinta] 90 mg PO BID tab 06/27/20 Insulin Glargine,Hum.rec.anlog 30 unit SQ BID #0 07/14/20 [Lantus Solostar] Aspirin 81 mg PO DAILY chew 08/20/20 lisinopriL [Zestril] 2.5 mg PO DAILY tab 08/20/20 Ezetimibe [Zetia] 10 mg PO DAILY 30 Days #30 tab 09/15/20 Metoprolol Tartrate [Lopressor] 50 mg PO BID 60 Days #30 tab 09/15/20 Isosorbide Mononitrate ER [Imdur] 30 mg PO BID tab.er.24h 10/03/20 Miconazole Nitrate 4%/2% [Monistat 1 each VAGINAL HS kit 10/03/20 3 Vaginal] Allergies Allergy/AdvReac Type Severity Reaction Status Date / Time gabapentin Allergy Anaphylaxis Verified 10/01/20 19:45 shellfish derived [Crab] Allergy Rash/Hives Verified 10/01/20 19:45 Review of Systems ROS Statement: Those systems with pertinent positive or pertinent negative responses have been documented in the HPI. ROS Other: All systems not noted in ROS Statement are negative. 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 Last Myocardial Infarction Date:: 2016 History of Any Multi-Drug Resistant Organisms: ESBL Date of last positivie culture/infection: 08/27/20 MDRO Source:: ESBL URINE Past Surgical History: Appendectomy, Bladder Surgery, Cholecystectomy, Coronary Bypass/CABG, Heart Catheterization, Heart Catheterization With Stent, Hysterectomy Additional Past Surgical History / Comment(s): CABG in 2013, Mitral valve on 2017, Heart Stent x 30, bilateral leg stent Past Anesthesia/Blood Transfusion Reactions: No Reported Reaction Date of Last Stent Placement:: 06/25/20 Past Psychological History: Anxiety, Bipolar, Depression Smoking Status: Current every day smoker Past Alcohol Use History: None Reported Past Drug Use History: None Reported - Past Family History Father Family Medical History: Coronary Artery Disease (CAD) Additional Family Medical History / Comment(s): heart disease General Exam Limitations: no limitations General appearance: alert, in no apparent distress Head exam: Present: atraumatic, normocephalic, normal inspection Eye exam: Present: normal appearance, PERRL, EOMI. Absent: scleral icterus, conjunctival injection, periorbital swelling ENT exam: Present: normal exam, mucous membranes moist Neck exam: Present: normal inspection. Absent: tenderness, meningismus, lymphadenopathy Respiratory exam: Present: normal lung sounds bilaterally. Absent: respiratory distress, wheezes, rales, rhonchi, stridor Cardiovascular Exam: Present: regular rate, normal rhythm, normal heart sounds. Absent: systolic murmur, diastolic murmur, rubs, gallop, clicks GI/Abdominal exam: Present: soft, normal bowel sounds. Absent: distended, tenderness, guarding, rebound, rigid External exam: Present: normal external exam Speculum exam: Present: normal speculum exam. Absent: vaginal discharge, vaginal bleeding Extremities exam: Present: normal inspection, full ROM, normal capillary refill. Absent: tenderness, pedal edema, joint swelling, calf tenderness Back exam: Present: normal inspection Neurological exam: Present: alert, oriented X3, CN II-XII intact Psychiatric exam: Present: normal affect, normal mood Skin exam: Present: warm, dry, intact, normal color. Absent: rash Course Vital Signs 10/01/20 10/01/20 18:27 23:13 Temperature 98.5 F 97.6 F Pulse Rate 80 Pulse Rate [ 58 L Pulse Oximetery ] Respiratory 18 16 Rate Blood Pressure 165/77 Blood Pressure 116/75 [Left Arm] O2 Sat by Pulse 96 100 Oximetry Medical Decision Making - Medical Decision Making Upon arrival patient is placed into room 29. A thorough history and physical exam was performed. I did review the patient's laboratory studies from the outside facility. She is requesting pain medications. Troponin continues to remain negative. I did do a pelvic exam on the patient. No vaginal bleeding or discharge identified. No concerning signs for fistula at this time on pelvic exam. I spoke with Dr. Aguilar who agreed to admit the patient. We'll place urology and OB on consult. Patient is covered for possible emphysematous cystitis. Patient is awaiting a bed on the floor - Lab Data Result diagrams: 10/03/20 04:20 10/03/20 04:20 Lab Results 10/01/20 10/01/20 10/01/20 Range/Units 19:59 19:59 19:59 WBC 3.7 L (3.8-10.6) k/uL RBC 4.20 (3.80-5.40) m/uL Hgb 13.2 (11.4-16.0) gm/dL Hct 38.8 (34.0-46.0) % MCV 92.4 (80.0-100.0) fL MCH 31.5 (25.0-35.0) pg MCHC 34.1 (31.0-37.0) g/dL RDW 13.1 (11.5-15.5) % Plt Count 211 (150-450) k/uL MPV 8.0 Neutrophils % 57 % Lymphocytes % 30 % Monocytes % 8 % Eosinophils % 2 % Basophils % 1 % Neutrophils # 2.1 (1.3-7.7) k/uL Lymphocytes # 1.1 (1.0-4.8) k/uL Monocytes # 0.3 (0-1.0) k/uL Eosinophils # 0.1 (0-0.7) k/uL Basophils # 0.0 (0-0.2) k/uL Sodium 131 L (137-145) mmol/L Potassium 4.1 (3.5-5.1) mmol/L Chloride 101 (98-107) mmol/L Carbon Dioxide 24 (22-30) mmol/L Anion Gap 6 mmol/L BUN 16 (7-17) mg/dL Creatinine 0.67 (0.52-1.04) mg/dL Est GFR (CKD-EPI)AfAm >90 (>60 ml/min/1.73 sqM) Est GFR (CKD-EPI)NonAf >90 (>60 ml/min/1.73 sqM) Glucose 332 H (74-99) mg/dL Calcium 8.5 (8.4-10.2) mg/dL Total Bilirubin 0.4 (0.2-1.3) mg/dL AST 22 (14-36) U/L ALT 18 (4-34) U/L Alkaline Phosphatase 119 (38-126) U/L Troponin I <0.012 (0.000-0.034) ng/mL Total Protein 6.8 (6.3-8.2) g/dL Albumin 4.1 (3.5-5.0) g/dL - EKG Data EKG Comments: EKG demonstrates a sinus rhythm with a ventricular rate of 76. MS interval 166. QRS 90. QTC of 474. No acute ST segment elevations or depressions concerning for ischemic changes Disposition Clinical Impression: Vaginal bleeding, UTI (urinary tract infection) Disposition: ADMITTED IP TO THIS HOSP Condition: Stable Is patient prescribed a controlled substance at d/c from ED?: No Decision to Admit Reason: Admit from EC Decision Date: 10/01/20 Decision Time: 20:51
[2020-10-01] MEDS ORDERED: ALBUTEROL NEBULIZED 2.5 MG/3 ML INHALATION PRN (20:54)
[2020-10-01] MEDS ORDERED: RANOLAZINE 1000 MG PO SCH (21:00)
[2020-10-01] MEDS ORDERED: INSULIN DETEMIR (LEVEMIR) 100 UNIT/ML SYR SQ SCH (21:00)
[2020-10-01] MEDS: hydrOXYzine pamoate 25 MG CAP PO SCH (21:49)
[2020-10-01] MEDS: TICAGRELOR 90 MG TAB PO SCH (21:50)
[2020-10-01] MEDS: QUEtiapine 50 MG TAB PO SCH (21:50)
[2020-10-01] MEDS: METOPROLOL TARTRATE 50 MG TAB PO SCH (21:50)
[2020-10-01] MEDS: CYCLOBENZAPRINE 10 MG TAB PO SCH (21:50)
[2020-10-01] MEDS: MIRTAZAPINE 45 MG TABLET PO SCH (21:50)
[2020-10-01] MEDS: HYDROmorphone 0.5 MG/0.5 ML SYRINGE IVP PRN (21:52)
[2020-10-01] MEDS ORDERED: tiZANidine 4 MG TAB PO PRN (22:00)
[2020-10-02] MEDS: LEVOTHYROXINE 88 MCG TAB PO SCH (05:55)
[2020-10-02 06:16] LABS: Basophils % (A) 1 %; Eosinophils # (A) 0.1 k/uL (0-0.7); Eosinophils % (A) 1 %; HCT 38.2 % (34.0-46.0); HGB 12.9 gm/dL (11.4-16.0); Lymphocytes # (A) 0.9 k/uL (1.0-4.8); Lymphocytes % (A) 25 %; MCH 31.1 pg (25.0-35.0); MCHC 33.7 g/dL (31.0-37.0); MCV 92.4 fL (80.0-100.0); Monocytes # (A) 0.3 k/uL (0-1.0); Monocytes % (A) 9 %; Neutrophils # (A) 2.3 k/uL (1.3-7.7); Neutrophils % (A) 62 %; Platelet Count 219 k/uL (150-450); RBC 4.13 m/uL (3.80-5.40); RDW 13.2 % (11.5-15.5); WBC 3.8 k/uL (3.8-10.6)
[2020-10-02 06:40] LABS: Calcium 8.6 mg/dL (8.4-10.2)
[2020-10-02 07:03] LABS: Glucose,Whole Blood 243 mg/dL (75-99)
[2020-10-02] MEDS: HYDROmorphone 0.5 MG/0.5 ML SYRINGE IVP PRN ×4 (08:16→22:39)
[2020-10-02] MEDS: ASPIRIN 81 MG PO SCH (08:49)
[2020-10-02] MEDS: SPIRONOLACTONE 25 MG TAB PO SCH (08:49)
[2020-10-02] MEDS: SERTRALINE 50 MG TAB PO SCH (08:49)
[2020-10-02] MEDS: RANOLAZINE 500 MG TAB.ER.12H PO SCH ×2 (08:49→22:39)
[2020-10-02] MEDS: INSULIN DETEMIR (LEVEMIR) 100 UNIT/ML SYR SQ SCH ×2 (08:49→21:42)
[2020-10-02] MEDS: TICAGRELOR 90 MG TAB PO SCH ×2 (08:49→22:39)
[2020-10-02] MEDS: ARIPiprazole 5 MG TAB PO SCH (08:49)
[2020-10-02] MEDS: METOPROLOL TARTRATE 50 MG TAB PO SCH ×2 (08:49→21:42)
[2020-10-02] MEDS: CYCLOBENZAPRINE 10 MG TAB PO SCH ×3 (08:49→21:42)
[2020-10-02] MEDS: EZETIMIBE 10 MG TAB PO SCH (08:49)
[2020-10-02] MEDS: ISOSORBIDE MONONITRATE ER 30 MG TAB.ER.24H PO SCH ×2 (08:49→21:42)
[2020-10-02] MEDS: ATORVASTATIN 80 MG TAB PO SCH (08:50)
[2020-10-02] MEDS: FUROSEMIDE 40 MG TAB PO SCH (08:50)
[2020-10-02] MEDS: hydrOXYzine pamoate 25 MG CAP PO SCH ×3 (08:50→22:50)
[2020-10-02] MEDS ORDERED: ISOSORBIDE MONONITRATE ER 30 MG TAB.ER.24H PO SCH (09:00)
[2020-10-02 11:48] LABS: Glucose,Whole Blood 305 mg/dL (75-99)
[2020-10-02 11:48] LABS: Glucose,Whole Blood 531 mg/dL (75-99)
--- NOTE | 2020-10-02 13:42 | P.HPIM ---
History of Present Illness H&P Date: 10/02/20 Aminta Sheikh, is a 55-year-old female who presented to [facility] emergency room with a chief complaint of chest pain and vaginal bleeding, she was evaluated in the emergency room, EKG and first set of cardiac enzymes were negative she underwent a computed tomography scan of the pelvis that revealed intraluminal bladder air with concern for fistula formation with the vaginal cuff patient was given a dose of IV Rocephin and IV Flagyl and was transferred to [facility] emergency room for further evaluation and treatment. Patient has a known history of on [place] artery disease with multiple admissions in the past with multiple cardiac catheterization angioplasty and stent placement in the past. Patient also has a known history of hypertension, hyperlipidemia, insulin-dependent diabetes mellitus, history of COPD, history of hypothyroidism, history of stroke, history of coronary artery bypass graft surgery in 2013, history of mitral valve repair in 2016, history of depression anxiety and bipolar disorder, history of tobacco abuse patient still smoke 1 pack per day despite multiple episodes of counseling in the past. On review of systems patient is alert and oriented in no apparent distress, she is still complaining of episodes of chest pain, otherwise she denies any other symptoms at this time, there is no fever or chills no headache or dizziness no chest pain no shortness of breath no cough no nausea or vomiting no abdominal pain no diarrhea no blood in the stools no burning with urination no frequency or urgency and no hematuria, no active vaginal bleeding at this time. Past Medical History Past Medical History: Coronary Artery Disease (CAD), Chest Pain / Angina, COPD, CVA/TIA, Diabetes Mellitus, GI Bleed, Hyperlipidemia, Hypertension, Myocardial Infarction (LA), Musculoskeletal Disorder, Pneumonia, Thyroid Disorder Additional Past Medical History / Comment(s): MS,cva x4 last one 2016. Last Myocardial Infarction Date:: 2016 History of Any Multi-Drug Resistant Organisms: ESBL Date of last positivie culture/infection: 08/27/20 MDRO Source:: ESBL URINE Past Surgical History: Appendectomy, Bladder Surgery, Cholecystectomy, Coronary Bypass/CABG, Heart Catheterization, Heart Catheterization With Stent, Hysterectomy Additional Past Surgical History / Comment(s): CABG in 2013, Mitral valve on 2016, Heart Stent x 30, bilateral leg stent Past Anesthesia/Blood Transfusion Reactions: No Reported Reaction Date of Last Stent Placement:: 06/25/20 Past Psychological History: Anxiety, Bipolar, Depression Smoking Status: Current every day smoker Past Alcohol Use History: None Reported Past Drug Use History: None Reported - Past Family History Father Family Medical History: Coronary Artery Disease (CAD) Additional Family Medical History / Comment(s): heart disease Medications and Allergies Home Medications Medication Instructions Recorded Confirmed Type ARIPiprazole [Abilify] 5 mg PO DAILY 05/21/20 10/01/20 History Atorvastatin [Lipitor] 80 mg PO DAILY 05/21/20 10/01/20 History Cyclobenzaprine [Flexeril] 10 mg PO TID 05/21/20 10/01/20 History INSULIN ASPART (NovoLOG) [NovoLOG See Protocol SQ AC-TID PRN 05/21/20 10/01/20 History (formulary)] Isosorbide Mononitrate ER [Imdur] 30 mg PO DAILY 05/21/20 10/01/20 History Levothyroxine Sodium [Synthroid] 175 mcg PO DAILY 05/21/20 10/01/20 History Mirtazapine [Remeron] 45 mg PO HS 05/21/20 10/01/20 History QUEtiapine [SEROquel] 50 mg PO HS 05/21/20 10/01/20 History Ranolazine [Ranexa] 1,000 mg PO BID 05/21/20 10/01/20 History Sertraline [Zoloft] 50 mg PO DAILY 05/21/20 10/01/20 History hydrOXYzine pamoate [Vistaril] 25 mg PO TID 05/21/20 10/01/20 History Loperamide [Imodium] 2 mg PO QID PRN 06/08/20 10/01/20 History Ticagrelor [Brilinta] 90 mg PO BID tab 06/27/20 10/01/20 Rx Insulin Glargine,Hum.rec.anlog 30 unit SQ BID #0 07/14/20 10/01/20 Rx [Lantus Solostar] Lidocaine 5% Patch [Lidoderm 5% 1 - 2 patch TOPICAL DAILY PRN 07/20/20 10/01/20 History Patch] Aspirin 81 mg PO DAILY chew 08/20/20 10/01/20 Rx lisinopriL [Zestril] 2.5 mg PO DAILY tab 08/20/20 10/01/20 Rx HYDROcodone/APAP 5-325MG [[place]yr[place] 1 tab PO TID PRN 09/13/20 10/01/20 History 5-325] Nitroglycerin Sl Tabs [Nitrostat] 0.4 mg SL Q5M PRN 09/13/20 10/01/20 History Ezetimibe [Zetia] 10 mg PO DAILY 30 Days #30 tab 09/15/20 10/01/20 Rx Metoprolol Tartrate [Lopressor] 50 mg PO BID 60 Days #30 tab 09/15/20 10/01/20 Rx Albuterol Inhaler [Ventolin Hfa 2 puff INHALATION RT-QID PRN 09/21/20 10/01/20 History Inhaler] Furosemide [Lasix] 40 mg PO DAILY 09/21/20 10/01/20 History Potassium Chloride ER [K-Dur 20] 20 meq PO DAILY 09/21/20 10/01/20 History Spironolactone [Aldactone] 25 mg PO DAILY 09/21/20 10/01/20 History tiZANidine [Zanaflex] 4 mg PO TID PRN 09/21/20 10/01/20 History Allergies Allergy/AdvReac Type Severity Reaction Status Date / Time gabapentin Allergy Anaphylaxis Verified 10/01/20 19:45 shellfish derived [Crab] Allergy Rash/Hives Verified 10/01/20 19:45 Physical Exam Vitals: Vital Signs Temp Pulse Pulse Resp BP BP Pulse Ox 10/02/20 02:00 97.9 F 60 16 116/76 99 10/01/20 23:13 97.6 F 58 L 16 116/75 100 10/01/20 18:27 98.5 F 80 18 165/77 96 Intake and Output 10/01/20 10/02/20 10/02/20 22:59 06:59 14:59 Intake Total 200 Balance 200 Intake: Oral 200 Other: Voiding Method Incontinent Toilet # Voids 2 Weight 81.193 kg 81.193 kg In general patient is alert and oriented 3 in no apparent distress HEENT head normocephalic and atraumatic Neck is supple no JVD no goiter no lymphadenopathy Chest exam reveals a few scattered crackles no wheezing Cardiac exam reveals regular heart sounds S1 and S2 no gallops no murmurs Abdomen is soft nontender no organomegaly with normal bowel sounds Extremity exam reveals no edema no cyanosis or clubbing Neurological examination reveals no gross focal deficit Results CBC & Chem 7: 10/02/20 05:26 10/02/20 05:26 Labs: Abnormal Lab Results - Last 24 Hours (Table) 10/01/20 10/01/20 10/02/20 Range/Units 19:59 19:59 05:26 WBC 3.7 L (3.8-10.6) k/uL Lymphocytes # 0.9 L (1.0-4.8) k/uL Sodium 131 L (137-145) mmol/L Glucose 332 H (74-99) mg/dL POC Glucose (mg/dL) (75-99) mg/dL 10/02/20 10/02/20 Range/Units 05:26 06:59 WBC (3.8-10.6) k/uL Lymphocytes # (1.0-4.8) k/uL Sodium 134 L (137-145) mmol/L Glucose 300 H (74-99) mg/dL POC Glucose (mg/dL) 243 H (75-99) mg/dL Thrombosis Risk Factor Assmnt - Choose All That Apply Any of the Below Risk Factors Present?: Yes Each Factor Represents 1 point: Age 41-60 years Other Risk Factors: No Other congenital or acquired thrombophilia - If yes, enter type in comment: No Thrombosis Risk Factor Assessment Total Risk Factor Score: 1 Thrombosis Risk Factor Assessment Level: Low Risk Assessment and Plan Plan: Episode of chest pain, patient has multiple cardiac risk factors, she has extensive history of coronary artery disease with multiple stent placement in the past, cardiology consultation was requested Vaginal bleeding with computed tomography scan of the pelvis at [facility] raising suspicion about a fistula with the vaginal cuff with intraluminal air in the bladder, urology consultation and gynecology consultation requested. No active vaginal bleeding at this time. Underlying history of hypertension Underlying history of hyperlipidemia Underlying history of hypothyroidism Underlying history of tobacco abuse patient was counseled again in regard to smoking cessation At this time patient is admitted to telemetry floor Home medications reviewed and reordered Cardiology consultation urology consultation and gynecology consultation r equested, awaiting input Will follow closely
--- NOTE | 2020-10-02 13:47 | P.OBCN ---
History of Present Illness Consult date: 10/02/20 Requesting physician: Jerson Aguilar Reason for consult: other (Vaginal bleeding) Chief complaint: Vaginal bleeding History of present illness: This is a 55-year-old female with multiple medical problems, transferred from [facility] yesterday with complaints of chest pain and vaginal blee ding. She states the bleeding started a couple days ago when she wiped. She stated she put some underwear on and did notice some splotches in her underwear. She also stated that a nurse told her they saw blood in the toilet after she urinated. She does state that she notices it after bowel movements and after urinating. This is the third time in 3 months the gynecology has been asked to see this patient for the same problem. Each time no bleeding has been found. The patient is a poor historian however she does know that she had a vaginal hysterectomy and a bladder suspension many years ago. Please refer to previous 2 consults on 07/14/2020 and 08/28/2020 for more details of patient's history. Review of Systems Genitourinary: Reports abnormal vaginal bleeding, Reports pelvic pain Past Medical History Past Medical History: Coronary Artery Disease (CAD), Chest Pain / Angina, COPD, CVA/TIA, Diabetes Mellitus, GI Bleed, Hyperlipidemia, Hypertension, Myocardial Infarction ([place]), Musculoskeletal Disorder, Pneumonia, Thyroid Disorder Additional Past Medical History / Comment(s): MS,cva x4 last one 2016. Last Myocardial Infarction Date:: 2015 History of Any Multi-Drug Resistant Organisms: ESBL Year Discovered:: 08/27/20 MDRO Source:: ESBL URINE Past Surgical History: Appendectomy, Bladder Surgery, Cholecystectomy, Coronary Bypass/CABG, Heart Catheterization, Heart Catheterization With Stent, Hysterectomy Additional Past Surgical History / Comment(s): CABG in 2013, Mitral valve on 2017, Heart Stent x 30, bilateral leg stent Past Anesthesia/Blood Transfusion Reactions: No Reported Reaction Date of Last Stent Placement:: 06/25/20 Past Psychological History: Anxiety, Bipolar, Depression Smoking Status: Current every day smoker Past Alcohol Use History: None Reported Past Drug Use History: None Reported - Past Family History Father Family Medical History: Coronary Artery Disease (CAD) Additional Family Medical History / Comment(s): heart disease Medications and Allergies Home Medications Medication Instructions Recorded Confirmed Type ARIPiprazole [Abilify] 5 mg PO DAILY 05/21/20 10/01/20 History Atorvastatin [Lipitor] 80 mg PO DAILY 05/21/20 10/01/20 History Cyclobenzaprine [Flexeril] 10 mg PO TID 05/21/20 10/01/20 History INSULIN ASPART (NovoLOG) [NovoLOG See Protocol SQ AC-TID PRN 05/21/20 10/01/20 History (formulary)] Isosorbide Mononitrate ER [Imdur] 30 mg PO DAILY 05/21/20 10/01/20 History Levothyroxine Sodium [Synthroid] 175 mcg PO DAILY 05/21/20 10/01/20 History Mirtazapine [Remeron] 45 mg PO HS 05/21/20 10/01/20 History QUEtiapine [SEROquel] 50 mg PO HS 05/21/20 10/01/20 History Ranolazine [Ranexa] 1,000 mg PO BID 05/21/20 10/01/20 History Sertraline [Zoloft] 50 mg PO DAILY 05/21/20 10/01/20 History hydrOXYzine pamoate [Vistaril] 25 mg PO TID 05/21/20 10/01/20 History Loperamide [Imodium] 2 mg PO QID PRN 06/08/20 10/01/20 History Ticagrelor [Brilinta] 90 mg PO BID tab 06/27/20 10/01/20 Rx Insulin Glargine,Hum.rec.anlog 30 unit SQ BID #0 07/14/20 10/01/20 Rx [Lantus Solostar] Lidocaine 5% Patch [Lidoderm 5% 1 - 2 patch TOPICAL DAILY PRN 07/20/20 10/01/20 History Patch] Aspirin 81 mg PO DAILY chew 08/20/20 10/01/20 Rx lisinopriL [Zestril] 2.5 mg PO DAILY tab 08/20/20 10/01/20 Rx HYDROcodone/APAP 5-325MG [[place] 1 tab PO TID PRN 09/13/20 10/01/20 History 5-325] Nitroglycerin Sl Tabs [Nitrostat] 0.4 mg SL Q5M PRN 09/13/20 10/01/20 History Ezetimibe [Zetia] 10 mg PO DAILY 30 Days #30 tab 09/15/20 10/01/20 Rx Metoprolol Tartrate [Lopressor] 50 mg PO BID 60 Days #30 tab 09/15/20 10/01/20 Rx Albuterol Inhaler [Ventolin Hfa 2 puff INHALATION RT-QID PRN 09/21/20 10/01/20 History Inhaler] Furosemide [Lasix] 40 mg PO DAILY 09/21/20 10/01/20 History Potassium Chloride ER [K-Dur 20] 20 meq PO DAILY 09/21/20 10/01/20 History Spironolactone [Aldactone] 25 mg PO DAILY 09/21/20 10/01/20 History tiZANidine [Zanaflex] 4 mg PO TID PRN 09/21/20 10/01/20 History Allergies Allergy/AdvReac Type Severity Reaction Status Date / Time gabapentin Allergy Anaphylaxis Verified 10/01/20 19:45 shellfish derived [Crab] Allergy Rash/Hives Verified 10/01/20 19:45 Exam Osteopathic Statement: *. No significant issues noted on an osteopathic structural exam other than those noted in the History and Physical/Consult. Vital Signs Temp Pulse Pulse Resp BP BP Pulse Ox 10/02/20 07:00 97.6 F 60 16 116/74 100 10/02/20 02:00 97.9 F 60 16 116/76 99 10/01/20 23:13 97.6 F 58 L 16 116/75 100 10/01/20 18:27 98.5 F 80 18 165/77 96 Intake and Output 10/01/20 10/02/20 10/02/20 22:59 06:59 14:59 Intake Total 200 Balance 200 Intake: Oral 200 Other: Voiding Method Incontinent Toilet Toilet # Voids 2 Weight 81.193 kg 81.193 kg Targeted physical exam: Vulva and groin area appear inflamed and slightly red consistent with skin yeast infection. No friability is noted at this time. Pelvic exam: A gloved hand was placed within the vagina and some tenderness was noted in the suprapubic area on palpation. No adnexal masses are palpated. When a gloved hand is removed, no bleeding is noted on the glove and no old blood or brown discharge is noted either. Results Result Diagrams: 10/02/20 05:26 10/02/20 05:26 Abnormal Lab Results - Last 24 Hours (Table) 10/01/20 10/01/20 10/02/20 Range/Units 19:59 19:59 05:26 WBC 3.7 L (3.8-10.6) k/uL Lymphocytes # 0.9 L (1.0-4.8) k/uL Sodium 131 L (137-145) mmol/L Glucose 332 H (74-99) mg/dL POC Glucose (mg/dL) (75-99) mg/dL 10/02/20 10/02/20 10/02/20 Range/Units 05:26 06:59 11:45 WBC (3.8-10.6) k/uL Lymphocytes # (1.0-4.8) k/uL Sodium 134 L (137-145) mmol/L Glucose 300 H (74-99) mg/dL POC Glucose (mg/dL) 243 H 531 H (75-99) mg/dL 10/02/20 Range/Units 11:46 WBC (3.8-10.6) k/uL Lymphocytes # (1.0-4.8) k/uL Sodium (137-145) mmol/L Glucose (74-99) mg/dL POC Glucose (mg/dL) 305 H (75-99) mg/dL Assessment and Plan (1) Bleeding from the genitourinary system Narrative/Plan: Per history Current Visit: Yes Status: Acute Code(s): R31.9 - HEMATURIA, UNSPECIFIED SNOMED Code(s): 205579005 Plan: I have advised the patient and her nurse that I do not feel that her bleeding is from the vagina. I do not feel that she has a vesicovaginal fistula based on the information available and exam that I have done. I believe that she may have been scratching herself when she wipes and with the skin yeast infection, this may be the source of her bleeding. She may benefit from either Desitin or vitamin A and D ointment on her skin. She could also be treated for a skin yeast infection with nystatin cream. I believe a vesicovaginal fistula is highly unlikely based on the exam that I performed and her history. If there is concern for this, I would recommend she be transferred to a facility that has a uro-finished cigar maker on staff as this is not something that I would be up to treat or diagnose.
--- NOTE | 2020-10-02 16:00 | CONS ---
CONSULTATION Please see the previous note and catheterization report by Dr. Murillo within the last 7- 10 days. This is a 55-year-old lady with multiple previous interventions, who came into the hospital with vaginal bleeding which seems to have improved and she is awaiting to see a physical education teacher. She then complained of pain in the chest that was sharp in nature, lasted a few seconds and also had some transient shortness of breath, which has resolved. At the time of my evaluation, she is resting comfortably, has no chest pain, shortness of breath, or palpitations. The patient underwent a cardiac cath recently on the of this month which revealed moderate progression of disease. Films were reviewed by Dr. Murillo and he advised medical therapy. On close questioning, the quality of her pain does not seem anginal. She also has history of aortocoronary bypass surgery in addition to prior PCI and a prior bioprosthetic mitral valve replacement as well. Details of this are not available to me at this time. The last cardiac cath from September 24 of this year about 8 days ago revealed that she had a totally occluded circumflex with in-stent occlusion with multiple stent layers, occluded ramus intermedius, occluded LAD. ROBLES to LAD was patent. The distal LAD had moderate disease. Stents in the RCA were patent and she was advised medical therapy. LABORATORY DATA: Reveals that troponin levels are normal. EKG revealed sinus mechanism with nonspecific ST abnormality. No acute changes. PHYSICAL EXAMINATION: On examination, blood pressure is 118/70, pulse rate is 62 per minute. HEENT: Unremarkable. Fundus was not examined by me. NECK: Supple. No JVD. I do not hear a carotid bruit. HEART: Exam reveals S1, S2 with a short systolic murmur. LUNGS: Clear. ABDOMEN: Soft, nontender. EXTREMITIES: Lower extremities reveal diminished pulses. CENTRAL NERVOUS SYSTEM: Normal. IMPRESSION: 1. Atypical chest pain in a patient with known coronary artery disease, prior bypass surgery, percutaneous coronary intervention and also mitral valve replacement with a tissue valve. 2. Hypertension. 3. History of vaginal bleeding. RECOMMENDATIONS: I am recommending that we continue her current medications. I will increase the Imdur from 30 mg daily to b.i.d. She is already on Ranexa and beta blockers. Heart rate is actually in the 60s. Pain is atypical. She is advised to follow with Dr. Skaf after discharged after evaluation by physical education teacher. There is no reason to keep the patient in the hospital from a cardiology standpoint. Discussed my thoughts in detail with the patient. Thank you very much for the consult. ROSHAN / JENNIFER: [id number] /
[2020-10-02 17:00] LABS: Glucose,Whole Blood 231 mg/dL (75-99)
--- NOTE | 2020-10-02 17:33 | P.GSCN ---
History of Present Illness Consult date: 10/02/20 Reason for Consult: Rule out vesicovaginal fistula History of present illness: Ms Sheikh is a 55 yo female that presented to [facility] with chest pain and vaginal bleeding. Indicated she's been having vaginal bleeding for the past week.She's been having intermittent vaginal bleeding for the past few months. She also indicates possibly having an episode of gross hematuria intermittently, but unsure. Her symptoms are associated with pelvic pain, dysuria.CT performed which demonstrated intraluminal bladder air. Of note she has urinary i ncontinence, but appears to be more of each incontinence rather than a constant leakage. She had a hysterectomy and bladder suspension done more than 20 years ago. No history of malignancies. Pelvic exam was performed in the ED which showed no obvious evidence of vaginal bleeding, or evidence of fistula Review of Systems - Constitutional Denies fever, Denies weight loss - Cardiovascular Denies chest pain, Denies shortness of breath - Respiratory Denies cough, Denies 7 - Gastrointestinal Reports abdominal pain, Denies nausea, Denies vomiting - Genitourinary Genitourinary: Reports dysuria, Reports pelvic pain, Denies flank pain - Neurological Denies headaches, Denies syncope Past Medical History Past Medical History: Coronary Artery Disease (CAD), Chest Pain / Angina, COPD, CVA/TIA, Diabetes Mellitus, GI Bleed, Hyperlipidemia, Hypertension, Myocardial Infarction ([place]), Musculoskeletal Disorder, Pneumonia, Thyroid Disorder Additional Past Medical History / Comment(s): MS,cva x4 last one 2016. Last Myocardial Infarction Date:: 2015 History of Any Multi-Drug Resistant Organisms: ESBL Year Discovered:: 08/27/20 MDRO Source:: ESBL URINE Past Surgical History: Appendectomy, Bladder Surgery, Cholecystectomy, Coronary Bypass/CABG, Heart Catheterization, Heart Catheterization With Stent, Hysterecto my Additional Past Surgical History / Comment(s): CABG in 2013, Mitral valve on 2017, Heart Stent x 30, bilateral leg stent Past Anesthesia/Blood Transfusion Reactions: No Reported Reaction Date of Last Stent Placement:: 06/25/20 Past Psychological History: Anxiety, Bipolar, Depression Smoking Status: Current every day smoker Past Alcohol Use History: None Reported Past Drug Use History: None Reported - Past Family History Father Family Medical History: Coronary Artery Disease (CAD) Additional Family Medical History / Comment(s): heart disease Medications and Allergies Home Medications Medication Instructions Recorded Confirmed Type ARIPiprazole [Abilify] 5 mg PO DAILY 05/21/20 10/01/20 History Atorvastatin [Lipitor] 80 mg PO DAILY 05/21/20 10/01/20 History Cyclobenzaprine [Flexeril] 10 mg PO TID 05/21/20 10/01/20 History INSULIN ASPART (NovoLOG) [NovoLOG See Protocol SQ AC-TID PRN 05/21/20 10/01/20 History (formulary)] Isosorbide Mononitrate ER [Imdur] 30 mg PO DAILY 05/21/20 10/01/20 History Levothyroxine Sodium [Synthroid] 175 mcg PO DAILY 05/21/20 10/01/20 History Mirtazapine [Remeron] 45 mg PO HS 05/21/20 10/01/20 History QUEtiapine [SEROquel] 50 mg PO HS 05/21/20 10/01/20 History Ranolazine [Ranexa] 1,000 mg PO BID 05/21/20 10/01/20 History Sertraline [Zoloft] 50 mg PO DAILY 05/21/20 10/01/20 History hydrOXYzine pamoate [Vistaril] 25 mg PO TID 05/21/20 10/01/20 History Loperamide [Imodium] 2 mg PO QID PRN 06/08/20 10/01/20 History Ticagrelor [Brilinta] 90 mg PO BID tab 06/27/20 10/01/20 Rx Insulin Glargine,Hum.rec.anlog 30 unit SQ BID #0 07/14/20 10/01/20 Rx [Lantus Solostar] Lidocaine 5% Patch [Lidoderm 5% 1 - 2 patch TOPICAL DAILY PRN 07/20/20 10/01/20 History Patch] Aspirin 81 mg PO DAILY chew 08/20/20 10/01/20 Rx lisinopriL [Zestril] 2.5 mg PO DAILY tab 08/20/20 10/01/20 Rx HYDROcodone/APAP 5-325MG [[place] 1 tab PO TID PRN 09/13/20 10/01/20 History 5-325] Nitroglycerin Sl Tabs [Nitrostat] 0.4 mg SL Q5M PRN 09/13/20 10/01/20 History Ezetimibe [Zetia] 10 mg PO DAILY 30 Days #30 tab 09/15/20 10/01/20 Rx Metoprolol Tartrate [Lopressor] 50 mg PO BID 60 Days #30 tab 09/15/20 10/01/20 Rx Albuterol Inhaler [Ventolin Hfa 2 puff INHALATION RT-QID PRN 09/21/20 10/01/20 History Inhaler] Furosemide [Lasix] 40 mg PO DAILY 09/21/20 10/01/20 History Potassium Chloride ER [K-Dur 20] 20 meq PO DAILY 09/21/20 10/01/20 History Spironolactone [Aldactone] 25 mg PO DAILY 09/21/20 10/01/20 History tiZANidine [Zanaflex] 4 mg PO TID PRN 09/21/20 10/01/20 History Allergies Allergy/AdvReac Type Severity Reaction Status Date / Time gabapentin Allergy Anaphylaxis Verified 10/01/20 19:45 shellfish derived [Crab] Allergy Rash/Hives Verified 10/01/20 19:45 Surgical - Exam Vital Signs Temp Pulse Resp BP Pulse Ox 98.5 F 80 18 165/77 96 10/01/20 18:27 10/01/20 18:27 10/01/20 18:27 10/01/20 18:27 10/01/20 18:27 Results - Labs 10/02/20 05:26 10/02/20 05:26 Abnormal Lab Results - Last 24 Hours (Table) 10/01/20 10/01/20 10/02/20 Range/Units 19:59 19:59 05:26 WBC 3.7 L (3.8-10.6) k/uL Lymphocytes # 0.9 L (1.0-4.8) k/uL Sodium 131 L (137-145) mmol/L Glucose 332 H (74-99) mg/dL POC Glucose (mg/dL) (75-99) mg/dL 10/02/20 10/02/20 Range/Units 05:26 06:59 WBC (3.8-10.6) k/uL Lymphocytes # (1.0-4.8) k/uL Sodium 134 L (137-145) mmol/L Glucose 300 H (74-99) mg/dL POC Glucose (mg/dL) 243 H (75-99) mg/dL Diabetes panel 10/01/20 10/02/20 Range/Units 19:59 05:26 Sodium 131 L 134 L (137-145) mmol/L Potassium 4.1 4.0 (3.5-5.1) mmol/L Chloride 101 102 (98-107) mmol/L Carbon Dioxide 24 26 (22-30) mmol/L BUN 16 17 (7-17) mg/dL Creatinine 0.67 0.87 (0.52-1.04) mg/dL Glucose 332 H 300 H (74-99) mg/dL Calcium 8.5 8.6 (8.4-10.2) mg/dL AST 22 (14-36) U/L ALT 18 (4-34) U/L Alkaline Phosphatase 119 (38-126) U/L Total Protein 6.8 (6.3-8.2) g/dL Albumin 4.1 (3.5-5.0) g/dL Calcium panel 10/01/20 10/02/20 Range/Units 19:59 05:26 Calcium 8.5 8.6 (8.4-10.2) mg/dL Albumin 4.1 (3.5-5.0) g/dL Pituitary panel 10/01/20 10/02/20 Range/Units 19:59 05:26 Sodium 131 L 134 L (137-145) mmol/L Potassium 4.1 4.0 (3.5-5.1) mmol/L Chloride 101 102 (98-107) mmol/L Carbon Dioxide 24 26 (22-30) mmol/L BUN 16 17 (7-17) mg/dL Creatinine 0.67 0.87 (0.52-1.04) mg/dL Glucose 332 H 300 H (74-99) mg/dL Calcium 8.5 8.6 (8.4-10.2) mg/dL Adrenal panel 10/01/20 10/02/20 Range/Units 19:59 05:26 Sodium 131 L 134 L (137-145) mmol/L Potassium 4.1 4.0 (3.5-5.1) mmol/L Chloride 101 102 (98-107) mmol/L Carbon Dioxide 24 26 (22-30) mmol/L BUN 16 17 (7-17) mg/dL Creatinine 0.67 0.87 (0.52-1.04) mg/dL Glucose 332 H 300 H (74-99) mg/dL Calcium 8.5 8.6 (8.4-10.2) mg/dL Total Bilirubin 0.4 (0.2-1.3) mg/dL AST 22 (14-36) U/L ALT 18 (4-34) U/L Alkaline Phosphatase 119 (38-126) U/L Total Protein 6.8 (6.3-8.2) g/dL Albumin 4.1 (3.5-5.0) g/dL Assessment and Plan Assessment: 55 yo female admitted with vaginal bleeding and chest pain. She underwent a CT which showed air within the bladder. Urology is consulted for possible vesicovaginal fistula, Patient history and symptoms are not consistent of vesicovaginal fistula. Will need outpatient cystoscopy to complete evaluation given her gross hematuria. -Urine culture, abx based on susceptibility -Will arrange for outpatient cystoscopy
[2020-10-02 19:27] LABS: Glucose,Whole Blood 214 mg/dL (75-99)
[2020-10-02] MEDS ORDERED: MICONAZOLE NITRATE 4%/2% VAG CREAM KIT VAGINAL SCH (21:00)
[2020-10-02] MEDS: QUEtiapine 50 MG TAB PO SCH (21:42)
[2020-10-02] MEDS: MIRTAZAPINE 45 MG TABLET PO SCH (22:39)
[2020-10-03] MEDS: LEVOTHYROXINE 88 MCG TAB PO SCH (06:09)
[2020-10-03 07:11] LABS: Glucose,Whole Blood 80 mg/dL (75-99)
[2020-10-03] MEDS: CYCLOBENZAPRINE 10 MG TAB PO SCH (07:25)
[2020-10-03] MEDS: hydrOXYzine pamoate 25 MG CAP PO SCH (07:25)
[2020-10-03] MEDS: SPIRONOLACTONE 25 MG TAB PO SCH (07:25)
[2020-10-03] MEDS: SERTRALINE 50 MG TAB PO SCH (07:25)
[2020-10-03] MEDS: FUROSEMIDE 40 MG TAB PO SCH (07:25)
[2020-10-03] MEDS: ISOSORBIDE MONONITRATE ER 30 MG TAB.ER.24H PO SCH (07:25)
[2020-10-03] MEDS: METOPROLOL TARTRATE 50 MG TAB PO SCH (07:26)
[2020-10-03] MEDS: ASPIRIN 81 MG PO SCH (07:26)
[2020-10-03] MEDS: ATORVASTATIN 80 MG TAB PO SCH (07:26)
[2020-10-03] MEDS: TICAGRELOR 90 MG TAB PO SCH (07:27)
[2020-10-03] MEDS: EZETIMIBE 10 MG TAB PO SCH (07:27)
[2020-10-03] MEDS: RANOLAZINE 500 MG TAB.ER.12H PO SCH (07:27)
[2020-10-03] MEDS: INSULIN DETEMIR (LEVEMIR) 100 UNIT/ML SYR SQ SCH (07:27)
[2020-10-03] MEDS: ARIPiprazole 5 MG TAB PO SCH (07:27)
[2020-10-03] MEDS: HYDROmorphone 0.5 MG/0.5 ML SYRINGE IVP PRN (07:37)
[2020-10-03 07:52] VITALS: BP 117/73; PULSE 63; RESP 16; TEMP 97.6
[2020-10-03 09:10] LABS: Basophils # (A) 0.04 X 10*3/uL (0.00-0.10); Basophils % (A) 0.7 %; Eosinophils # (A) 0.07 X 10*3/uL (0.04-0.35); Eosinophils % (A) 1.2 %; HCT 35.9 % (37.2-46.3); HGB 11.8 g/dL (12.0-15.0); Lymphocytes # (A) 1.43 X 10*3/uL (0.90-5.00); Lymphocytes % (A) 24.4 %; MCH 30.8 pg (27.0-32.0); MCHC 32.9 g/dL (32.0-37.0); MCV 93.7 fL (80.0-97.0); Mean Platelet Volume 9.8 fL (9.5-12.2); Monocytes # (A) 0.49 X 10*3/uL (0.20-1.00); Monocytes % (A) 8.4 %; Neutrophils # (A) 3.79 X 10*3/uL (1.80-7.70); Neutrophils % (A) 64.6 %; Platelet Count 237 X 10*3/uL (140-440); RBC 3.83 X 10*6/uL (4.10-5.20); RDW 13.1 % (11.5-14.5); WBC 5.86 X 10*3/uL (4.50-10.00)
--- NOTE | 2020-10-03 09:29 | PN ---
PROGRESS NOTE Mrs. Sheikh has history of CAD and prior PCI. She came in with atypical chest pain, vaginal bleeding which has stopped. She has been cleared by her sheet layer also to be discharged. Vitals are stable, asymptomatic. No angina. S1-S2 heard normally. Short systolic murmur noted. Lungs are clear. Abdomen and lower exam unchanged. The patient can be discharged today and follow up with Dr. Murillo in 1-2 weeks. MMODL / IJN: [id number] /
[2020-10-03 09:54] LABS: Albumin 3.7 g/dL (3.80-4.90); Albumin/Globulin Ratio 2.06 (1.60-3.17); Anion Gap 6.8 mmol/L (4.00-12.00); Calcium 8.5 mg/dL (8.7-10.3); Carbon Dioxide 23.2 mmol/L (21.6-31.8); Globulin 1.8 g/dL (1.6-3.3); Non-African American GFR(CKD) 63.8 (60.0-200.0); Potassium 4.1 mmol/L (3.5-5.5); Total Bilirubin 0.1 mg/dL (0.2-1.2); Total Protein 5.5 g/dL (6.2-8.2)
== END 2020-10-03 10:45 | disposition home or self-care (01) ==
LOC: EC 18:22 → 6NMEDSUR 20:54
PROVIDERS: ADMIT Internal Medicine; ATTEND Internal Medicine
DX: N93.9 Abnormal uterine and vaginal bleeding, unspecified (principal); R07.89 Other chest pain; I25.10 Atherosclerotic heart disease of native coronary artery without angina pectoris; R31.0 Gross hematuria; R32 Unspecified urinary incontinence; R01.1 Cardiac murmur, unspecified; I10 Essential (primary) hypertension; F17.200 Nicotine dependence, unspecified, uncomplicated; I25.82 Chronic total occlusion of coronary artery; I25.2 Old myocardial infarction; E78.5 Hyperlipidemia, unspecified; J44.9 Chronic obstructive pulmonary disease, unspecified; F31.9 Bipolar disorder, unspecified; F41.9 Anxiety disorder, unspecified; E11.9 Type 2 diabetes mellitus without complications; E03.9 Hypothyroidism, unspecified; Z79.890 Hormone replacement therapy; Z79.899 Other long term (current) drug therapy; Z86.73 Personal history of transient ischemic attack (TIA), and cerebral infarction without residual deficits; Z95.1 Presence of aortocoronary bypass graft; Z95.3 Presence of xenogenic heart valve; Z82.49 Family history of ischemic heart disease and other diseases of the circulatory system; Z90.710 Acquired absence of both cervix and uterus; Z79.02 Long term (current) use of antithrombotics/antiplatelets; Z79.4 Long term (current) use of insulin; Z95.5 Presence of coronary angioplasty implant and graft; Z79.82 Long term (current) use of aspirin; Z16.24 Resistance to multiple antibiotics
CPT/HCPCS: 96376 ×2; 93005 ×2; 96374; 99285; 36415; 80053 ×2; 80048; 84484 ×2; 85025 ×3; G0378 ×3; J1170 ×3

== ENCOUNTER 2020-10-18 19:49 | Observation (INO) | payer MEDICARE, OTHER ==
[2020-10-18] MEDS ORDERED: NITROGLYCERIN OINT 1 INCH/GM PACKET TOPICAL STA (20:17)
--- NOTE | 2020-10-18 20:28 | ED ---
General Adult HPI - General Source: patient, EMS, RN notes reviewed, old records reviewed Mode of arrival: EMS Limitations: no limitations <Jamaal Richard - Last Filed: 10/18/20 21:18> <Jamaal Agee - Last Filed: 10/18/20 23:42> - General Chief complaint: Chest Pain Stated complaint: Chest Pain Time Seen by Provider: 10/18/20 19:50 - History of Present Illness Initial comments: This is a 55-year-old female who presents to the emergency department with a past medical history significant for bypass surgery as well as multiple stents, patient also has diabetes hypertension high cholesterol and continues to smoke. Patient states she came in because she started having chest pain yesterday she took nitroglycerin it did not help. Patient states the chest pain returned today and it eventually subsided just prior to arrival. Patient states she was also mildly short of breath but denies any radiation of the pain denies any diaphoretic episodes denies any nausea or vomiting. Patient denies abdominal pain patient denies any fever chills or cough per patient denies any patient denies numbness or weakness. Patient also mentions that today she had some vaginal bleeding or rectal bleeding as well. Patient states she is not sexually active and is been no recent procedures in either of those 2 areas. (Jamaal Richard) - Related Data Home Medications Medication Instructions Recorded Confirmed ARIPiprazole [Abilify] 5 mg PO DAILY 05/21/20 10/18/20 Atorvastatin [Lipitor] 80 mg PO DAILY 05/21/20 10/18/20 Cyclobenzaprine [Flexeril] 10 mg PO TID 05/21/20 10/18/20 INSULIN ASPART (NovoLOG) [NovoLOG See Protocol SQ AC-TID PRN 05/21/20 10/18/20 (formulary)] Mirtazapine [Remeron] 45 mg PO HS 05/21/20 10/18/20 QUEtiapine [SEROquel] 50 mg PO HS 05/21/20 10/18/20 Ranolazine [Ranexa] 1,000 mg PO BID 05/21/20 10/18/20 Sertraline [Zoloft] 50 mg PO DAILY 05/21/20 10/18/20 hydrOXYzine pamoate [Vistaril] 25 mg PO TID 05/21/20 10/18/20 Loperamide [Imodium] 2 mg PO QID PRN 06/08/20 10/18/20 HYDROcodone/APAP 5-325MG [[place] 1 tab PO TID PRN 09/13/20 10/18/20 5-325] Nitroglycerin Sl Tabs [Nitrostat] 0.4 mg SL Q5M PRN 09/13/20 10/18/20 Furosemide [Lasix] 40 mg PO DAILY 09/21/20 10/18/20 Potassium Chloride ER [K-Dur 20] 20 meq PO DAILY 09/21/20 10/18/20 Spironolactone [Aldactone] 25 mg PO DAILY 09/21/20 10/18/20 tiZANidine [Zanaflex] 4 mg PO TID PRN 09/21/20 10/18/20 Ferrous Sulfate [Feosol] 325 mg PO DAILY 10/18/20 10/18/20 Folic Acid 1 mg PO DAILY 10/18/20 10/18/20 Insulin Glargine,Hum.rec.anlog 22 unit SQ BID 10/18/20 10/18/20 [Lantus Solostar] Levothyroxine Sodium [Synthroid] 200 mcg PO DAILY 10/18/20 10/18/20 levETIRAcetam [Keppra] 500 mg PO Q12HR 10/18/20 10/18/20 Previous Rx's Medication Instructions Recorded Ticagrelor [Brilinta] 90 mg PO BID tab 06/27/20 Aspirin 81 mg PO DAILY chew 08/20/20 lisinopriL [Zestril] 2.5 mg PO DAILY tab 08/20/20 Ezetimibe [Zetia] 10 mg PO DAILY 30 Days #30 tab 09/15/20 Metoprolol Tartrate [Lopressor] 50 mg PO BID 60 Days #30 tab 09/15/20 Isosorbide Mononitrate ER [Imdur] 30 mg PO BID tab.er.24h 10/03/20 Allergies Allergy/AdvReac Type Severity Reaction Status Date / Time gabapentin Allergy Anaphylaxis Verified 10/18/20 22:19 shellfish derived [Crab] Allergy Rash/Hives Verified 10/18/20 22:19 Review of Systems ROS Other: All systems not noted in ROS Statement are negative. <Jamaal Richard - Last Filed: 10/18/20 21:18> ROS Other: All systems not noted in ROS Statement are negative. <Jamaal Agee - Last Filed: 10/18/20 23:42> ROS Statement: Those systems with pertinent positive or pertinent negative responses have been documented in the HPI. Past Medical History Past Medical History: Coronary Artery Disease (CAD), Chest Pain / Angina, COPD, CVA/TIA, Diabetes Mellitus, GI Bleed, Hyperlipidemia, Hypertension, Myocardial Infarction ([place]), Musculoskeletal Disorder, Pneumonia, Thyroid Disorder Additional Past Medical History / Comment(s): MS,cva x4 last one 2016. Last Myocardial Infarction Date:: 2015 History of Any Multi-Drug Resistant Organisms: ESBL Date of last positivie culture/infection: 08/27/20 MDRO Source:: ESBL URINE Past Surgical History: Appendectomy, Bladder Surgery, Cholecystectomy, Coronary Bypass/CABG, Heart Catheterization, Heart Catheterization With Stent, Hysterectomy Additional Past Surgical History / Comment(s): CABG in 2013, Mitral valve on 2016, Heart Stent x 30, bilateral leg stent Past Anesthesia/Blood Transfusion Reactions: No Reported Reaction Date of Last Stent Placement:: 06/25/20 Past Psychological History: Anxiety, Bipolar, Depression Smoking Status: Current every day smoker Past Alcohol Use History: None Reported Past Drug Use History: None Reported - Past Family History Father Family Medical History: Coronary Artery Disease (CAD) Additional Family Medical History / Comment(s): heart disease <Jamaal Richard - Last Filed: 10/18/20 21:18> General Exam Limitations: no limitations <Jamaal Richard - Last Filed: 10/18/20 21:18> General appearance: alert, in no apparent distress Head exam: Present: atraumatic, normocephalic, normal inspection Eye exam: Present: normal appearance, PERRL, EOMI. Absent: scleral icterus, conjunctival injection, periorbital swelling ENT exam: Present: normal exam, mucous membranes moist Neck exam: Present: normal inspection. Absent: tenderness, meningismus, lymphadenopathy Respiratory exam: Present: normal lung sounds bilaterally. Absent: respiratory distress, wheezes, rales, rhonchi, stridor Cardiovascular Exam: Present: regular rate, normal rhythm, normal heart sounds. Absent: systolic murmur, diastolic murmur, rubs, gallop, clicks GI/Abdominal exam: Present: soft, normal bowel sounds. Absent: distended, tenderness, guarding, rebound, rigid Extremities exam: Present: normal inspection, full ROM, normal capillary refill. Absent: tenderness, pedal edema, joint swelling, calf tenderness Back exam: Present: normal inspection Neurological exam: Present: alert, oriented X3, CN II-XII intact Psychiatric exam: Present: normal affect, normal mood Skin exam: Present: warm, dry, intact, normal color. Absent: rash <Jamaal Agee - Last Filed: 10/18/20 23:42> - General Exam Comments Initial Comments: GENERAL: Patient is well-developed and well-nourished. Patient is nontoxic and well-hydrated and is in no acute distress. ENT: Neck is soft and supple. No significant lymphadenopathy is noted. Oropharynx is clear. Moist mucous membranes. Neck has full range of motion without eliciting any pain. EYES: The sclera were anicteric and conjunctiva were pink and moist. Extraocular movements were intact and pupils were equal round and reactive to light. Eyelids were unremarkable. PULMONARY: Unlabored respirations. Good breath sounds bilaterally. No audible rales rhonchi or wheezing was noted. CARDIOVASCULAR: There is a regular rate and rhythm without any murmurs gallops or rubs. ABDOMEN: Soft and nontender with normal bowel sounds. SKIN: Skin is clear with no lesions or rashes and otherwise unremarkable. NEUROLOGIC: Patient is alert and oriented x3. Cranial nerves II through XII are grossly intact. Motor and sensory are also intact. Normal speech, volume and content. Symmetrical smile. MUSCULOSKELETAL: Normal extremities with adequate strength and full range of motion. LYMPHATICS: No significant lymphadenopathy is noted PSYCHIATRIC: Normal psychiatric evaluation. (Jamaal Richard) Course <Jamaal Agee - Last Filed: 10/18/20 23:42> Vital Signs 10/18/20 10/18/20 10/18/20 19:50 21:05 22:00 Temperature 98.7 F Pulse Rate 88 80 85 Respiratory 18 18 18 Rate Blood Pressure 145/77 144/82 140/75 O2 Sat by Pulse 99 100 98 Oximetry 10/18/20 23:19 Temperature Pulse Rate 78 Respiratory 18 Rate Blood Pressure 133/72 O2 Sat by Pulse 98 Oximetry - Reevaluation(s) Reevaluation #1: 10/18/20 23:42 Medical record is reviewed (Jamaal Agee) Reevaluation #2: 10/18/20 23:42 Patient continued to act for pain medication (Jamaal Agee) Reevaluation #3: 10/18/20 23:42 Patient very emotional very concerned about her chronic chest pain is significantly difficult to sleep and not wake up (Jamaal Agee) Reevaluation #4: 10/18/20 23:42 Spoke patient regarding results of findings, questions answered (Jamaal Agee) Medical Decision Making - Lab Data Result diagrams: 10/18/20 20:46 10/18/20 20:46 <Jamaal Richard - Last Filed: 10/18/20 21:18> - Lab Data Result diagrams: 10/18/20 20:46 10/18/20 20:46 <Jamaal Agee - Last Filed: 10/18/20 23:42> - Medical Decision Making EKG shows normal sinus rhythm at 82 bpm [place] interval is 176 QRS is 90 QT interval 418 QTC is 488. Patient's EKG shows no ST segment elevation or depression. Dr. Agee will be taking over the care of this patient at 9 PM (Jamaal Richard) 55 female who has a known history of chest pain coming in for chest pain observation today. Patient be admitted for pain control and cardiology to see (Jamaal Agee) - Lab Data Lab Results 10/18/20 10/18/20 10/18/20 Range/Units 20:46 20:46 20:46 WBC 5.2 (3.8-10.6) k/uL RBC 3.96 (3.80-5.40) m/uL Hgb 12.6 (11.4-16.0) gm/dL Hct 37.1 (34.0-46.0) % MCV 93.6 (80.0-100.0) fL MCH 31.9 (25.0-35.0) pg MCHC 34.1 (31.0-37.0) g/dL RDW 13.4 (11.5-15.5) % Plt Count 209 (150-450) k/uL MPV 7.2 Neutrophils % 66 % Lymphocytes % 26 % Monocytes % 4 % Eosinophils % 2 % Basophils % 0 % Neutrophils # 3.5 (1.3-7.7) k/uL Lymphocytes # 1.4 (1.0-4.8) k/uL Monocytes # 0.2 (0-1.0) k/uL Eosinophils # 0.1 (0-0.7) k/uL Basophils # 0.0 (0-0.2) k/uL PT 9.5 (9.0-12.0) sec INR 0.9 (<1.2) APTT 22.9 (22.0-30.0) sec Sodium 132 L (137-145) mmol/L Potassium 4.0 (3.5-5.1) mmol/L Chloride 101 (98-107) mmol/L Carbon Dioxide 26 (22-30) mmol/L Anion Gap 5 mmol/L BUN 10 (7-17) mg/dL Creatinine 0.71 (0.52-1.04) mg/dL Est GFR (CKD-EPI)AfAm >90 (>60 ml/min/1.73 sqM) Est GFR (CKD-EPI)NonAf >90 (>60 ml/min/1.73 sqM) Glucose 418 H (74-99) mg/dL Calcium 8.6 (8.4-10.2) mg/dL Magnesium 1.9 (1.6-2.3) mg/dL Total Bilirubin 0.4 (0.2-1.3) mg/dL AST 18 (14-36) U/L ALT 12 (4-34) U/L Alkaline Phosphatase 107 (38-126) U/L Troponin I (0.000-0.034) ng/mL Total Protein 6.2 L (6.3-8.2) g/dL Albumin 3.8 (3.5-5.0) g/dL Blood Type Blood Type Recheck Bld Type Recheck Status Antibody Screen Spec Expiration Date 10/18/20 10/18/20 Range/Units 20:46 20:46 WBC (3.8-10.6) k/uL RBC (3.80-5.40) m/uL Hgb (11.4-16.0) gm/dL Hct (34.0-46.0) % MCV (80.0-100.0) fL MCH (25.0-35.0) pg MCHC (31.0-37.0) g/dL RDW (11.5-15.5) % Plt Count (150-450) k/uL MPV Neutrophils % % Lymphocytes % % Monocytes % % Eosinophils % % Basophils % % Neutrophils # (1.3-7.7) k/uL Lymphocytes # (1.0-4.8) k/uL Monocytes # (0-1.0) k/uL Eosinophils # (0-0.7) k/uL Basophils # (0-0.2) k/uL PT (9.0-12.0) sec INR (<1.2) APTT (22.0-30.0) sec Sodium (137-145) mmol/L Potassium (3.5-5.1) mmol/L Chloride (98-107) mmol/L Carbon Dioxide (22-30) mmol/L Anion Gap mmol/L BUN (7-17) mg/dL Creatinine (0.52-1.04) mg/dL Est GFR (CKD-EPI)AfAm (>60 ml/min/1.73 sqM) Est GFR (CKD-EPI)NonAf (>60 ml/min/1.73 sqM) Glucose (74-99) mg/dL Calcium (8.4-10.2) mg/dL Magnesium (1.6-2.3) mg/dL Total Bilirubin (0.2-1.3) mg/dL AST (14-36) U/L ALT (4-34) U/L Alkaline Phosphatase (38-126) U/L Troponin I <0.012 (0.000-0.034) ng/mL Total Protein (6.3-8.2) g/dL Albumin (3.5-5.0) g/dL Blood Type A Positive Blood Type Recheck A Pos Bld Type Recheck Status No Antibody Screen NEGATIVE Spec Expiration Date 10/21/2020 - 2345 Disposition <Jamaal Richard - Last Filed: 10/18/20 21:18> Is patient prescribed a controlled substance at d/c from ED?: No <Jamaal Agee - Last Filed: 10/18/20 23:42> Clinical Impression: Chest pain Disposition: ADMITTED IP TO THIS HOSP Condition: Fair Referrals: Jerson Aguilar MD [Primary Care Provider] - 1-2 days
[2020-10-18 20:58] LABS: Basophils % (A) 0 %; Eosinophils # (A) 0.1 k/uL (0-0.7); Eosinophils % (A) 2 %; HCT 37.1 % (34.0-46.0); HGB 12.6 gm/dL (11.4-16.0); Lymphocytes # (A) 1.4 k/uL (1.0-4.8); Lymphocytes % (A) 26 %; MCH 31.9 pg (25.0-35.0); MCHC 34.1 g/dL (31.0-37.0); MCV 93.6 fL (80.0-100.0); Mean Platelet Volume 7.2; Monocytes # (A) 0.2 k/uL (0-1.0); Monocytes % (A) 4 %; Neutrophils # (A) 3.5 k/uL (1.3-7.7); Neutrophils % (A) 66 %; Platelet Count 209 k/uL (150-450); RBC 3.96 m/uL (3.80-5.40); RDW 13.4 % (11.5-15.5); WBC 5.2 k/uL (3.8-10.6)
[2020-10-18 21:08] LABS: ALT 12 U/L (4-34); AST 18 U/L (14-36); African American GFR (CKD) >90 (>60 ml/min/1.73 sqM); Albumin 3.8 g/dL (3.5-5.0); Alkaline Phosphatase 107 U/L (38-126); Anion Gap 5 mmol/L; Blood Urea Nitrogen 10 mg/dL (7-17); Calcium 8.6 mg/dL (8.4-10.2); Carbon Dioxide 26 mmol/L (22-30); Chloride 101 mmol/L (98-107); Glucose 418 mg/dL (74-99); Magnesium 1.9 mg/dL (1.6-2.3); Non-African American GFR(CKD) >90 (>60 ml/min/1.73 sqM); Sodium 132 mmol/L (137-145); Total Bilirubin 0.4 mg/dL (0.2-1.3); Total Protein 6.2 g/dL (6.3-8.2)
[2020-10-18 21:27] LABS: INR 0.9 (<1.2); Partial Thromboplastin Time 22.9 sec (22.0-30.0); Prothrombin Time 9.5 sec (9.0-12.0)
--- NOTE | 2020-10-18 21:57 | XR ---
EXAMINATION TYPE: XR chest 2V DATE OF EXAM: 10/18/2020 COMPARISON: 09/21/2020. HISTORY: Chest pain. TECHNIQUE: Frontal and lateral views of the chest are obtained. FINDINGS: There is no focal air space opacity, pleural effusion, or pneumothorax seen. The cardiac silhouette size is within normal limits. Prior cardiothoracic postsurgical changes seen. The osseou s structures are intact. IMPRESSION: No acute cardiopulmonary process.
[2020-10-18] MEDS ORDERED: ONDANSETRON 4 MG/2 ML VIAL IVP STA (23:14)
[2020-10-18] MEDS ORDERED: ONDANSETRON 4 MG/2 ML VIAL IVP PRN (23:14)
[2020-10-18] MEDS ORDERED: MORPHINE SULFATE 4 MG/ML SYRINGE IVP STA (23:14)
[2020-10-18] MEDS ORDERED: ASPIRIN 81 MG PO STA (23:37)
[2020-10-18] MEDS ORDERED: NITROGLYCERIN SL TABS 0.4 MG TAB SUBLINGUAL PRN (23:37)
[2020-10-19] MEDS: MORPHINE SULFATE 4 MG/ML SYRINGE IVP PRN ×3 (02:44→11:52)
[2020-10-19 05:23] LABS: Cholesterol 258 mg/dL (<200); HDL Cholesterol 67 mg/dL (40-60); LDL Cholesterol,Calculated 135 mg/dL (0-99); Triglycerides 282 mg/dL (<150)
[2020-10-19] MEDS ORDERED: ASPIRIN 325 MG TAB PO SCH (09:00)
[2020-10-19] MEDS: RANOLAZINE 500 MG TAB.ER.12H PO SCH ×2 (10:58→22:06)
[2020-10-19] MEDS: FUROSEMIDE 40 MG TAB PO SCH (10:59)
[2020-10-19] MEDS: POTASSIUM CHLORIDE ER 20 MEQ TAB.ER PO SCH (10:59)
[2020-10-19] MEDS: METOPROLOL TARTRATE 50 MG TAB PO SCH ×2 (10:59→21:17)
[2020-10-19] MEDS: TICAGRELOR 90 MG TAB PO SCH ×2 (10:59→22:06)
[2020-10-19] MEDS: EZETIMIBE 10 MG TAB PO SCH (10:59)
[2020-10-19] MEDS: ATORVASTATIN 80 MG TAB PO SCH (10:59)
[2020-10-19] MEDS: SPIRONOLACTONE 25 MG TAB PO SCH (10:59)
[2020-10-19] MEDS: ISOSORBIDE MONONITRATE ER 30 MG TAB.ER.24H PO SCH ×2 (10:59→21:17)
[2020-10-19] MEDS: ASPIRIN 81 MG PO SCH (10:59)
--- NOTE | 2020-10-19 11:54 | P.CRDCN ---
History of Present Illness Consult date: 10/19/20 History of present illness: HISTORY OF PRESENT ILLNESS: This is a 55-year-old female with a past medical history significant for coronary artery disease with previous CABG and PCI, mitral valve replacement, hypertension, hyperlipidemia, diabetes mellitus, COPD, and CVA. Patient follows in the office with Dr. Murillo. We have been asked to see the patient in consultation for chest pain. Patient examined at the bedside. Patient states she has been having chest pain for the last 2 days intermittently. She states yesterday around 3 PM the pain that really bad and radiated to her back so she came to the emergency room for further evaluation. Patient continues to complain of chest pain the time of examination. Patient has been to the [facility] multiple times secondary to chest pain. She recently underwent cardiac catheterization where medical management was recommended. She remains on optimal medications from a cardiac standpoint. EKG reveals sinus rhythm with no signs of acute ischemia Chest xray no acute cardiopulmonary process Laboratory data: WBC 5.2. Hemoglobin 12.6. Platelet count 209. Sodium 132. Potassium 4.0. BUN 10. Creatinine 0.71. Troponin negative 3. LDL 135. Current home cardiac medications include lisinopril 2.5 mg daily, [place] to 90 mg twice a day, Aldactone 25mg daily, Ranexa 1000 mg twice a day, metoprolol tartrate 50mg twice a day, Lasix 40 mg daily, Zetia 10 mg daily, Imdur 30 mg twice a day, Lipitor 80 mg daily, and aspirin 81 mg daily Most recent echocardiogram obtained in September 2020 revealed ejection fraction 50- 55% with mild mitral regurgitation Cardiac catheterization history: 08/18/[address] Murillo revealing occluded LAD in the midportion. ROBLES to LAD is patent. Occluded ramus intermedius which seems to be an in-stent occlusion. Occluded left circumflex which also seems to be an in-stent occlusion. Pain started in the right coronary artery. Medical management was recommended. 09/24/[address] Murilol revealing normal left main coronary artery. Occluded left circumflex which seems to be in-stent occlusion with multiple layers of stents. Occluded ramus intermedius coronary artery which seems to also be in- stent occlusion with multiple layers of stents. Occluded left anterior descending artery. ROBLES to LAD is patent. Mid to distal LAD has lesion appearing to be in the range of 60-70%. Patent stents in the right coronary artery. REVIEW OF SYSTEMS: At the time of my exam: CONSTITUTIONAL: Denies fever or chills. HEENT: Denies blurred vision, vision changes, or eye pain. Denies hemoptysis CARDIOVASCULAR: Reports chest pain. Denies orthopnea. Denies PND. Denies palpitations RESPIRATORY: Denies shortness of breath. GASTROINTESTINAL: Denies abdominal pain. Denies nausea or vomiting. HEMATOLOGIC: Denies bleeding disorders. GENITOURINARY: Denies any blood in urine. SKIN: Denies pruitis. Denies rash. PHYSICAL EXAM: VITAL SIGNS: Reviewed. GENERAL: Well-developed in no acute distress. HEENT: Head is normocephalic. Pupils are equal, round. Sclerae anicteric. Mucous membranes of the mouth are moist. Neck supple. No JVD or thyromegaly LUNGS: Respirations even and unlabored. Lungs essentially clear to auscultation bilaterally. HEART: Regular rate and rhythm. S1 and S2 heard. Systolic murmur noted. ABDOMEN: Soft. Nondistended. Nontender. EXTREMITIES: Normal range of motion. No clubbing or cyanosis. Peripheral pulses intact. No lower extremity edema NEUROLOGIC: Awake and alert. Oriented x 3. ASSESSMENT: Chest pain, troponins negative 3 Coronary artery disease with previous CABG and PCI Valvular heart disease with prior bioprosthetic mitral valve replacement Hypertension Hyperlipidemia Diabetes mellitus Peripheral vascular disease History of CVA 4 per patient Nicotine dependence PLAN: An acute coronary event has been ruled out No need to repeat echocardiogram as this was performed last month Resume home cardiac medications No further cardiac inpatient workup recommended. Patient to be discharged home today from a cardiac standpoint and follow up in the office with Dr. Murillo. We will sign off. Please reconsult if needed. Nurse practitioner note has been reviewed by physician. Signing provider agrees with the documented findings, assessment, and plan of care. Past Medical History Past Medical History: Coronary Artery Disease (CAD), Chest Pain / Angina, COPD, CVA/TIA, Diabetes Mellitus, GI Bleed, Hyperlipidemia, Hypertension, Myocardial Infarction (MA), Musculoskeletal Disorder, Pneumonia, Thyroid Disorder Additional Past Medical History / Comment(s): MS,cva x4 last one 2016. Last Myocardial Infarction Date:: 2015 History of Any Multi-Drug Resistant Organisms: ESBL Date of last positivie culture/infection: 08/27/20 MDRO Source:: ESBL URINE Past Surgical History: Appendectomy, Bladder Surgery, Cholecystectomy, Coronary Bypass/CABG, Heart Catheterization, Heart Catheterization With Stent, Hysterectomy Additional Past Surgical History / Comment(s): CABG in 2013, Mitral valve on 2016, Heart Stent x 30, bilateral leg stent Past Anesthesia/Blood Transfusion Reactions: No Reported Reaction Date of Last Stent Placement:: 06/25/20 Past Psychological History: Anxiety, Bipolar, Depression Smoking Status: Current every day smoker Past Alcohol Use History: None Reported Past Drug Use History: None Reported - Past Family History Father Family Medical History: Coronary Artery Disease (CAD) Additional Family Medical History / Comment(s): heart disease Medications and Allergies Home Medications Medication Instructions Recorded Confirmed Type ARIPiprazole [Abilify] 5 mg PO DAILY 05/21/20 10/18/20 History Atorvastatin [Lipitor] 80 mg PO DAILY 05/21/20 10/18/20 History Cyclobenzaprine [Flexeril] 10 mg PO TID 05/21/20 10/18/20 History INSULIN ASPART (NovoLOG) [NovoLOG See Protocol SQ AC-TID PRN 05/21/20 10/18/20 History (formulary)] Mirtazapine [Remeron] 45 mg PO HS 05/21/20 10/18/20 History QUEtiapine [SEROquel] 50 mg PO HS 05/21/20 10/18/20 History Ranolazine [Ranexa] 1,000 mg PO BID 05/21/20 10/18/20 History Sertraline [Zoloft] 50 mg PO DAILY 05/21/20 10/18/20 History hydrOXYzine pamoate [Vistaril] 25 mg PO TID 05/21/20 10/18/20 History Loperamide [Imodium] 2 mg PO QID PRN 06/08/20 10/18/20 History Ticagrelor [Brilinta] 90 mg PO BID tab 06/27/20 10/18/20 Rx Aspirin 81 mg PO DAILY chew 08/20/20 10/18/20 Rx lisinopriL [Zestril] 2.5 mg PO DAILY tab 08/20/20 10/18/20 Rx HYDROcodone/APAP 5-325MG [[place] 1 tab PO TID PRN 09/13/20 10/18/20 History 5-325] Nitroglycerin Sl Tabs [Nitrostat] 0.4 mg SL Q5M PRN 09/13/20 10/18/20 History Ezetimibe [Zetia] 10 mg PO DAILY 30 Days #30 tab 09/15/20 10/18/20 Rx Metoprolol Tartrate [Lopressor] 50 mg PO BID 60 Days #30 tab 09/15/20 10/18/20 Rx Furosemide [Lasix] 40 mg PO DAILY 09/21/20 10/18/20 History Potassium Chloride ER [K-Dur 20] 20 meq PO DAILY 09/21/20 10/18/20 History Spironolactone [Aldactone] 25 mg PO DAILY 09/21/20 10/18/20 History tiZANidine [Zanaflex] 4 mg PO TID PRN 09/21/20 10/18/20 History Isosorbide Mononitrate ER [Imdur] 30 mg PO BID tab.er.24h 10/03/20 10/18/20 Rx Ferrous Sulfate [Feosol] 325 mg PO DAILY 10/18/20 10/18/20 History Folic Acid 1 mg PO DAILY 10/18/20 10/18/20 History Insulin Glargine,Hum.rec.anlog 22 unit SQ BID 10/18/20 10/18/20 History [Lantus Solostar] Levothyroxine Sodium [Synthroid] 200 mcg PO DAILY 10/18/20 10/18/20 History levETIRAcetam [Keppra] 500 mg PO Q12HR 10/18/20 10/18/20 History Allergies Allergy/AdvReac Type Severity Reaction Status Date / Time gabapentin Allergy Anaphylaxis Verified 10/18/20 22:19 shellfish derived [Crab] Allergy Rash/Hives Verified 10/18/20 22:19 Physical Exam Vitals: Vital Signs Temp Pulse Resp BP Pulse Ox 10/19/20 11:38 79 18 126/79 99 10/19/20 08:01 78 18 149/87 100 10/19/20 00:10 81 18 138/73 96 10/18/20 23:19 78 18 133/72 98 10/18/20 22:00 85 18 140/75 98 10/18/20 21:05 80 18 144/82 100 10/18/20 19:50 98.7 F 88 18 145/77 99 Intake and Output 10/18/20 10/19/20 10/19/20 22:59 06:59 14:59 Other: Weight 81.193 kg Results 10/18/20 20:46 10/18/20 20:46 Cardiac Enzymes 10/18/20 10/18/20 10/19/20 Range/Units 20:46 20:46 01:12 AST 18 (14-36) U/L Troponin I <0.012 <0.012 (0.000-0.034) ng/mL 10/19/20 Range/Units 04:10 AST (14-36) U/L Troponin I <0.012 (0.000-0.034) ng/mL Coagulation 10/18/20 Range/Units 20:46 PT 9.5 (9.0-12.0) sec APTT 22.9 (22.0-30.0) sec Lipids 10/19/20 Range/Units 04:10 Triglycerides 282 H (<150) mg/dL Cholesterol 258 H (<200) mg/dL HDL Cholesterol 67 H (40-60) mg/dL CBC 10/18/20 Range/Units 20:46 WBC 5.2 (3.8-10.6) k/uL RBC 3.96 (3.80-5.40) m/uL Hgb 12.6 (11.4-16.0) gm/dL Hct 37.1 (34.0-46.0) % Plt Count 209 (150-450) k/uL Comprehensive Metabolic Panel 10/18/20 Range/Units 20:46 Sodium 132 L (137-145) mmol/L Potassium 4.0 (3.5-5.1) mmol/L Chloride 101 (98-107) mmol/L Carbon Dioxide 26 (22-30) mmol/L BUN 10 (7-17) mg/dL Creatinine 0.71 (0.52-1.04) mg/dL Glucose 418 H (74-99) mg/dL Calcium 8.6 (8.4-10.2) mg/dL AST 18 (14-36) U/L ALT 12 (4-34) U/L Alkaline Phosphatase 107 (38-126) U/L Total Protein 6.2 L (6.3-8.2) g/dL Albumin 3.8 (3.5-5.0) g/dL Current Medications Generic Name Dose Route Start Last Admin Trade Name Freq PRN Reason Stop Dose Admin Aspirin 81 mg 10/19/20 10:15 10/19/20 10:59 Aspirin 81 Mg PO 81 mg DAILY [facility] Administration Atorvastatin Calcium 80 mg 10/19/20 10:00 10/19/20 10:59 Atorvastatin 80 Mg Tab PO 80 mg DAILY CAROLYN Administration Ezetimibe 10 mg 10/19/20 10:00 10/19/20 10:59 Ezetimibe 10 Mg Tab PO 10 mg DAILY [facility]OLYN Administration Furosemide 40 mg 10/19/20 10:00 10/19/20 10:59 Furosemide 40 Mg Tab PO 40 mg DAILY [facility] Administration Isosorbide Mononitrate 30 mg 10/19/20 10:00 10/19/20 10:59 Isosorbide Mononitrate Er 30 Mg Tab.Er.24h PO 30 mg BID CAROLYN Administration Lisinopril 2.5 mg 10/19/20 10:00 10/19/20 11:12 Lisinopril 2.5 Mg Tab PO 2.5 mg DAILY [facility] Administration Metoprolol Tartrate 50 mg 10/19/20 10:00 10/19/20 10:59 Metoprolol Tartrate 50 Mg Tab PO 50 mg BID [facility] Administration Morphine Sulfate 4 mg 10/18/20 23:14 10/19/20 07:58 Morphine Sulfate 4 Mg/Ml Syringe IVP 4 mg Q4HR PRN Administration Pain Nitroglycerin 0.4 mg 10/18/20 23:37 Nitroglycerin Sl Tabs 0.4 Mg Tab SUBLINGUAL Q5M PRN Chest Pain Ondansetron HCl 4 mg 10/18/20 23:14 10/19/20 03:08 Ondansetron 4 Mg/2 Ml Vial IVP 4 mg Q6HR PRN Administration Nausea And Vomiting Potassium Chloride 20 meq 10/19/20 10:00 10/19/20 10:59 Potassium Chloride Er 20 Meq Tab.Er PO 20 meq DAILY [facility] Administration Ranolazine 1,000 mg 10/19/20 10:00 10/19/20 10:58 Ranolazine 500 Mg Tab.Er.12h PO 1,000 mg BID [facility] Administration Spironolactone 25 mg 10/19/20 10:00 10/19/20 10:59 Spironolactone 25 Mg Tab PO 25 mg DAILY [facility] Administration Ticagrelor 90 mg 10/19/20 10:00 10/19/20 10:59 Ticagrelor 90 Mg Tab PO 90 mg BID [facility]OL[facility] Administration Intake and Output 10/18/20 10/19/20 10/19/20 22:59 06:59 14:59 Other: Weight 81.193 kg 10/18/20 20:46 10/18/20 20:46
[2020-10-19] MEDS ORDERED: HYDROmorphone 0.5 MG/0.5 ML SYRINGE IVP PRN (13:16)
[2020-10-19 13:41] LABS: Glucose,Whole Blood 325 mg/dL (75-99)
[2020-10-19] MEDS: INSULIN DETEMIR (LEVEMIR) 100 UNIT/ML SYR SQ SCH ×2 (14:09→22:06)
[2020-10-19] MEDS ORDERED: tiZANidine 4 MG TAB PO PRN (16:21)
[2020-10-19] MEDS ORDERED: HYDROcodone/APAP 5-325MG 1 EACH TAB PO PRN (16:21)
[2020-10-19] MEDS ORDERED: LOPERAMIDE 2 MG CAP PO PRN (16:21)
[2020-10-19] MEDS ORDERED: TEMAZEPAM 15 MG CAP PO PRN (16:23)
[2020-10-19] MEDS ORDERED: ALPRAZolam 0.25 MG TAB PO PRN (16:23)
[2020-10-19] MEDS ORDERED: PANTOPRAZOLE 40 MG TABLET PO SCH (17:30)
[2020-10-19 17:41] LABS: Glucose,Whole Blood 310 mg/dL (75-99)
[2020-10-19] MEDS: INSULIN ASPART (NovoLOG) 100 UNIT/ML VIAL SQ SCH ×2 (17:42→21:17)
[2020-10-19 18:09] LABS: Appearance,Urine Cloudy (Clear); Bacteria,Urine Moderate /hpf; Bilirubin,Urine Negative (Negative); Blood,Urine Small (Negative); Color,Urine Light Yellow; Glucose,Urine (UA) Negative (Negative); Hyaline Casts,Urine 3 /lpf (0-2); Ketones,Urine Negative (Negative); Leukocyte Esterase,Urine Large (Negative); Mucus,Urine Rare /hpf; Nitrite,Urine Positive (Negative); Protein,Urine Trace (Negative); RBC,Urine 12 /hpf (0-5); Specific Gravity,Urine 1.003 (1.001-1.035); Squamous Epithelial Cell,Urine 4 /hpf (0-4); Urobilinogen,Urine <2.0 mg/dL (<2.0); WBC,Urine 134 /hpf (0-5)
[2020-10-19 20:52] LABS: Glucose,Whole Blood 282 mg/dL (75-99)
[2020-10-19] MEDS ORDERED: MIRTAZAPINE 45 MG TABLET PO SCH (21:00)
[2020-10-19] MEDS ORDERED: QUEtiapine 50 MG TAB PO SCH (21:00)
[2020-10-19] MEDS ORDERED: NON FORMULARY DRUG (Insulin Glargine,Hum.Rec.Anlog [Lantus Solostar] 100 UNIT/ML Insuln.Pe SQ SCH (21:00)
[2020-10-19] MEDS: CYCLOBENZAPRINE 10 MG TAB PO SCH (21:17)
[2020-10-19] MEDS: hydrOXYzine pamoate 25 MG CAP PO SCH (21:17)
[2020-10-19] MEDS: levETIRAcetam 500 MG TAB PO SCH (21:18)
[2020-10-19] MEDS: PANTOPRAZOLE 40 MG/10 ML VIAL IVP SCH (21:18)
[2020-10-19 22:15] LABS: Glucose,Whole Blood 183 mg/dL (75-99)
--- NOTE | 2020-10-19 22:46 | HP ---
HISTORY AND PHYSICAL I am covering for Dr. Aguilar. DATE OF SERVICE: 10/19/2020 CHIEF COMPLAINT: Chest pain. HISTORY OF PRESENT ILLNESS: This 55-year-old woman with a past medical history of multiple medical problems, including CAD, COPD, CVA, TIA, diabetes mellitus, GI bleed, hypertension, hyperlipidemia, being followed by Dr. Aguilar in the outpatient setting, was complaining of chest pain. The pain was mostly in the central part of the chest which was deep in character, mild to moderate in intensity. The patient came to [facility]. The patient had persistent chest pain at this time. The patient also has mild shortness of breath. The patient was evaluated by Cardiology. The blood sugar is also elevated. The EKG showed nonspecific ST-T changes. D-dimer is not available. Sodium is 132, glucose 325. The patient is on multiple cholesterol medications, but still the cholesterol is 258 and triglycerides 282. There is no history of any fever, rigor or chills at this time. PAST MEDICAL HISTORY: History of CAD, history of COPD, CVA, TIA, diabetes mellitus, type 2, hypertension, hyperlipidemia, history of myocardial infarction, history of ESBL in the urine. HOME MEDICATIONS: Seroquel, Nitrostat, Remeron, Imodium, [place], Keppra, iron sulfate, NovoLog, Zanaflex, Zestril, Vistaril, Brilinta, Aldactone, Zoloft, Ranexa, K-Dur, Lopressor, Synthroid, Imdur, Flexeril, Lipitor, Abilify. Doses are reviewed. ALLERGIES: GABAPENTIN and SHELLFISH. FAMILY HISTORY: History of coronary artery disease in the family. SOCIAL HISTORY: Previous history of smoking. No history of alcohol intake. REVIEW OF SYSTEMS: ENT: No diminished hearing. No diminished vision. CARDIOVASCULAR SYSTEM: As mentioned earlier. RESPIRATORY SYSTEM: As mentioned earlier. GI: As mentioned earlier. : No dysuria or retention. NERVOUS SYSTEM: No numbness, weakness. ALLERGY/IMMUNOLOGY: No asthma, hayfever. MUSCULOSKELETAL: As mentioned earlier. HEMATOLOGY/ONCOLOGY: No history of anemia. ENDOCRINE: As mentioned earlier. CONSTITUTIONAL: As mentioned earlier. DERMATOLOGY: Negative. RHEUMATOLOGY: Negative. PSYCHIATRY: As mentioned earlier. PHYSICAL EXAMINATION: Patient alert and oriented x3. Pulse 79, blood pressure 126/70, respiration 18, temperature 97.6, pulse ox 99% on room air. HEENT: Conjunctivae normal. NECK: No jugular venous distention. CARDIOVASCULAR SYSTEM: S1, S2 muffled. RESPIRATORY SYSTEM: Breath sounds diminished at the bases. No rhonchi. No crackles. ABDOMEN: Soft, non-tender. LEGS: No edema. No swelling. NERVOUS SYSTEM: Higher functions as mentioned earlier. Moves all 4 limbs. No focal motor or sensory deficit. LYMPHATICS: No lymph node palpable in neck, axillae or groin. SKIN: No ulcer, rash, bleeding. JOINTS: No active deforming arthropathy. LABS: CBC within normal limits. APTT is 22.9. Sodium is 132, potassium 4 and cholesterol is 258, triglycerides 282. ASSESSMENT: 1. Chest pain, possible unstable angina. 2. Diabetes mellitus, type 2, uncontrolled with elevated glucose. 3. Hyperlipidemia and hypertriglyceridemia, persistent. 4. History of coronary artery disease. 5. History of chronic obstructive pulmonary disease. 6. Cerebrovascular accident, transient ischemic attack. 7. History of gastrointestinal bleed. 8. Hypertension. 9. Hyperlipidemia. 10.History of myocardial infarction. 11.History of degenerative joint disease. 12.History of pneumonia. 13.History of multiple sclerosis. 14.History of cerebrovascular accident. 15.Extended-spectrum beta-lactamase. 16.History of coronary artery disease, coronary artery bypass grafting, stent. 17.History of anxiety, bipolar, depression. 18.Continued ongoing nicotine dependence. 19.Obesity with body mass index of 30.7. RECOMMENDATIONS AND DISCUSSION: In this 55-year-old woman who presented with multiple complex medical issues, I recommend to continue current medications, continue with the monitoring, symptomatic treatment. Angina protocol. Follow closely with Cardiology. Resume the home medications. Monitor blood sugars closely. Smoking cessation has been recommended. I would also recommend that the patient follow up with a primary physician closely in the outpatient setting. Repatha may be an option because of the persistent hyperlipidemia. MMODL / IJN: [id number] /
[2020-10-20] MEDS ORDERED: LEVOTHYROXINE 100 MCG TAB PO SCH (06:30)
[2020-10-20 06:59] LABS: Glucose,Whole Blood 74 mg/dL (75-99)
[2020-10-20 07:32] VITALS: BP 100/63; PULSE 69; RESP 20; TEMP 97.6
[2020-10-20] MEDS: EZETIMIBE 10 MG TAB PO SCH (08:17)
[2020-10-20] MEDS: ATORVASTATIN 80 MG TAB PO SCH (08:17)
[2020-10-20] MEDS: ISOSORBIDE MONONITRATE ER 30 MG TAB.ER.24H PO SCH (08:18)
[2020-10-20] MEDS: SPIRONOLACTONE 25 MG TAB PO SCH (08:18)
[2020-10-20] MEDS: POTASSIUM CHLORIDE ER 20 MEQ TAB.ER PO SCH (08:18)
[2020-10-20] MEDS: TICAGRELOR 90 MG TAB PO SCH (08:18)
[2020-10-20] MEDS: RANOLAZINE 500 MG TAB.ER.12H PO SCH (08:18)
[2020-10-20] MEDS: ASPIRIN 81 MG PO SCH (08:18)
[2020-10-20] MEDS: levETIRAcetam 500 MG TAB PO SCH (08:19)
[2020-10-20] MEDS: PANTOPRAZOLE 40 MG/10 ML VIAL IVP SCH (08:19)
[2020-10-20 08:26] LABS: Basophils % (A) 1 %; Eosinophils # (A) 0.1 k/uL (0-0.7); Eosinophils % (A) 2 %; HCT 37.5 % (34.0-46.0); Lymphocytes # (A) 1.1 k/uL (1.0-4.8); Lymphocytes % (A) 25 %; MCHC 34.6 g/dL (31.0-37.0); MCV 92.4 fL (80.0-100.0); Mean Platelet Volume 7.9; Monocytes # (A) 0.3 k/uL (0-1.0); Monocytes % (A) 6 %; Neutrophils % (A) 65 %; Platelet Count 204 k/uL (150-450); RBC 4.06 m/uL (3.80-5.40); RDW 13.4 % (11.5-15.5); WBC 4.5 k/uL (3.8-10.6)
[2020-10-20] MEDS: INSULIN DETEMIR (LEVEMIR) 100 UNIT/ML SYR SQ SCH (08:49)
[2020-10-20] MEDS: INSULIN ASPART (NovoLOG) 100 UNIT/ML VIAL SQ SCH (08:49)
[2020-10-20] MEDS ORDERED: SERTRALINE 50 MG TAB PO SCH (09:00)
[2020-10-20] MEDS ORDERED: FERROUS SULFATE 325 MG TAB PO SCH (09:00)
[2020-10-20] MEDS ORDERED: FOLIC ACID 1 MG TAB PO SCH (09:00)
[2020-10-20] MEDS ORDERED: ARIPiprazole 5 MG TAB PO SCH (09:00)
[2020-10-20 11:03] LABS: African American GFR (CKD) 53.9 (60.0-200.0); Anion Gap 9.9 mmol/L (4.00-12.00); BUN/Creat Ratio 12.31 Ratio (12.00-20.00); Calcium 8.6 mg/dL (8.7-10.3); Carbon Dioxide 23.1 mmol/L (21.6-31.8); Non-African American GFR(CKD) 46.5 (60.0-200.0); Potassium 4.2 mmol/L (3.5-5.5)
[2020-10-20] MEDS: FUROSEMIDE 40 MG TAB PO SCH (11:19)
[2020-10-20] MEDS: METOPROLOL TARTRATE 50 MG TAB PO SCH (11:19)
[2020-10-20] MEDS: CYCLOBENZAPRINE 10 MG TAB PO SCH (11:21)
[2020-10-20] MEDS: hydrOXYzine pamoate 25 MG CAP PO SCH (11:23)
[2020-10-20 11:44] LABS: Glucose,Whole Blood 179 mg/dL (75-99)
--- NOTE | 2020-10-20 23:23 | DS ---
DISCHARGE SUMMARY FINAL DIAGNOSES: 1. Chest pain, possibly musculoskeletal, possible unstable angina. Myocardial infarction ruled out. 2. Diabetes mellitus, type 2, uncontrolled with elevated glucose. 3. Hyperlipidemia with hyperglycemia, persistent. 4. History of coronary artery disease. 5. History of chronic pain syndrome. 6. History of chronic obstructive pulmonary disease. 7. Cerebrovascular accident, transient ischemic attack. 8. History of gastrointestinal bleed. 9. Hypertension. 10.Hyperlipidemia. 11.History of myocardial infarction. 12.History of degenerative joint disease. 13.History of pneumonia. 14.History of multiple sclerosis. 15.History of cerebrovascular accident. 16.History of extended-spectrum beta-lactamase. 17.History of coronary artery disease, coronary artery bypass grafting, stent. 18.History of anxiety, depression, bipolar. 19.Continued ongoing nicotine dependence. 20.Obesity with body mass index of 30.7. DISCHARGE DISPOSITION: The patient will be discharged in stable condition with guarded prognosis. Cardiology cleared the patient for discharge. HISTORY OF PRESENT ILLNESS: This 55-year-old woman with a past medical history of multiple medical problems, being followed by Dr. Aguilar in the outpatient setting, was admitted with chest pain. Myocardial infarction was ruled out. Cardiology saw the patient. Patient had recent cardiac workup, so patient was recommended followup in the outpatient setting. Patient also had chronic pain syndrome. Patient had UTI. Empiric antibiotics are suggested and continue with current medication. On exam, vitals are stable. CARDIOVASCULAR SYSTEM: S1, S2 muffled. ABDOMEN: Soft. NERVOUS SYSTEM: No focal deficit. DISCHARGE ADVICE AND MEDICATIONS: 1. Diet is cardiac. 2. Activity limited until followup. 3. Followup with Dr. Aguilar in 2 to 3 days. 4. Follow up with Cardiology as recommended. 5. Abilify 5 mg p.o. daily. 6. Aldactone 25 mg daily. 7. Flexeril 10 mg t.i.d. 8. Folic acid 1 mg daily. 9. Imodium p.r.n. 10.Iron sulfate 320 mg daily. 11.K-Dur 20 mEq p.o. daily. 12.Keppra 500 mg p.o. b.i.d. 13.Insulin Lantus 22 units subcutaneously b.i.d. 14.Lasix 40 mg p.o. daily. 15.Lipitor 80 mg p.o. daily. 16.Nitroglycerin p.r.n. 17.Remeron 45 mg at bedtime. 18.Seroquel 50 mg at bedtime. 19.Synthroid 200 mg p.o. daily. 20.Vistaril 25 mg p.o. t.i.d. 21.Zanaflex t.i.d. p.r.n. 22.Zoloft 50 mg p.o. daily. 23.Aspirin 81 mg p.o. daily. 24.Brilinta 90 mg p.o. b.i.d. 25.Ceftin 500 mg p.o. b.i.d. 26.Imdur ER 30 mg p.o. b.i.d. 27.Lopressor 50 mg p.o. b.i.d. 28.Zestril 2.5 mg daily. 29.Zetia 10 mg p.o. daily. Once again, the patient will be discharged in stable condition with guarded prognosis. MMMARICARMEN / EDGARDON: [id number] /
== END 2020-10-20 12:45 ==
LOC: EC 19:49 → 6NMEDSUR 23:37
PROVIDERS: ADMIT Hospitalist; ATTEND Hospitalist
DX: R07.9 Chest pain, unspecified (principal); R06.02 Shortness of breath; Z95.5 Presence of coronary angioplasty implant and graft; Z95.1 Presence of aortocoronary bypass graft; I10 Essential (primary) hypertension; E78.00 Pure hypercholesterolemia, unspecified; F17.210 Nicotine dependence, cigarettes, uncomplicated; N93.9 Abnormal uterine and vaginal bleeding, unspecified; K62.5 Hemorrhage of anus and rectum; I25.10 Atherosclerotic heart disease of native coronary artery without angina pectoris; J44.9 Chronic obstructive pulmonary disease, unspecified; E78.5 Hyperlipidemia, unspecified; E11.51 Type 2 diabetes mellitus with diabetic peripheral angiopathy without gangrene; E11.65 Type 2 diabetes mellitus with hyperglycemia; I25.2 Old myocardial infarction; E78.1 Pure hyperglyceridemia; M19.90 Unspecified osteoarthritis, unspecified site; E66.9 Obesity, unspecified; Z68.30 Body mass index [BMI] 30.0-30.9, adult; N39.0 Urinary tract infection, site not specified; G89.4 Chronic pain syndrome; E07.9 Disorder of thyroid, unspecified; G35 Multiple sclerosis; F41.9 Anxiety disorder, unspecified; F31.9 Bipolar disorder, unspecified; I38 Endocarditis, valve unspecified; Z79.02 Long term (current) use of antithrombotics/antiplatelets; Z79.82 Long term (current) use of aspirin; Z79.899 Other long term (current) drug therapy; Z79.4 Long term (current) use of insulin; Z79.891 Long term (current) use of opiate analgesic; Z79.890 Hormone replacement therapy; Z88.8 Allergy status to other drugs, medicaments and biological substances; Z91.013 Allergy to seafood; Z86.73 Personal history of transient ischemic attack (TIA), and cerebral infarction without residual deficits; Z87.19 Personal history of other diseases of the digestive system; Z87.01 Personal history of pneumonia (recurrent); Z86.19 Personal history of other infectious and parasitic diseases; Z90.710 Acquired absence of both cervix and uterus; Z20.822 Contact with and (suspected) exposure to COVID-19; Z16.24 Resistance to multiple antibiotics; Z90.49 Acquired absence of other specified parts of digestive tract; Z95.828 Presence of other vascular implants and grafts; Z95.3 Presence of xenogenic heart valve; Z82.49 Family history of ischemic heart disease and other diseases of the circulatory system
CPT/HCPCS: 96375 ×3; 93005 ×3; 96376; 96374; 99285; 36415; 86900; 86901; 80061; 80053; 80048; 83735; 84484 ×2; 85025 ×2; 85610; 85730; 86850; 81001; 87635; 71046; G0378 ×2; J2270 ×2; J2405 ×2; J0696; C9113; J1170

== ENCOUNTER 2020-10-25 17:26 | Emergency (ER) | payer MEDICARE, OTHER ==
[2020-10-25] MEDS ORDERED: ASPIRIN 81 MG PO STA (18:00)
[2020-10-25] MEDS ORDERED: NITROGLYCERIN OINT 1 INCH/GM PACKET TOPICAL STA (18:00)
--- NOTE | 2020-10-25 18:04 | ED ---
General Adult HPI - General Chief complaint: Chest Pain Stated complaint: Chest pain Time Seen by Provider: 10/25/20 17:36 Source: patient, RN notes reviewed, old records reviewed Mode of arrival: ambulatory Limitations: no limitations - History of Present Illness Initial comments: Patient is a pleasant 55-year-old female presenting to the emergency Department with complaints of chest discomfort. Onset of symptoms was this morning. Symptoms have been steady since that time. Patient has pressure with radiation to the jaw. Patient does have some associated dyspnea. Patient states she was sweaty this morning. Mild nausea. Patient states she does have history of similar symptoms previously however states she has not been here recently. Patient is unclear last time she was here. No cough. No leg pain or leg swelling. Symptoms are similar to her previous chest discomfort. Patient did take nitro and home with transient improvement of symptoms. - Related Data Home Medications Medication Instructions Recorded Confirmed ARIPiprazole [Abilify] 5 mg PO DAILY 05/21/20 10/18/20 Atorvastatin [Lipitor] 80 mg PO DAILY 05/21/20 10/18/20 Cyclobenzaprine [Flexeril] 10 mg PO TID 05/21/20 10/18/20 INSULIN ASPART (NovoLOG) [NovoLOG See Protocol SQ AC-TID PRN 05/21/20 10/18/20 (formulary)] Mirtazapine [Remeron] 45 mg PO HS 05/21/20 10/18/20 QUEtiapine [SEROquel] 50 mg PO HS 05/21/20 10/18/20 Ranolazine [Ranexa] 1,000 mg PO BID 05/21/20 10/18/20 Sertraline [Zoloft] 50 mg PO DAILY 05/21/20 10/18/20 hydrOXYzine pamoate [Vistaril] 25 mg PO TID 05/21/20 10/18/20 Loperamide [Imodium] 2 mg PO QID PRN 06/08/20 10/18/20 HYDROcodone/APAP 5-325MG [Isaban 1 tab PO TID PRN 09/13/20 10/18/20 5-325] Nitroglycerin Sl Tabs [Nitrostat] 0.4 mg SL Q5M PRN 09/13/20 10/18/20 Furosemide [Lasix] 40 mg PO DAILY 09/21/20 10/18/20 Potassium Chloride ER [K-Dur 20] 20 meq PO DAILY 09/21/20 10/18/20 Spironolactone [Aldactone] 25 mg PO DAILY 09/21/20 10/18/20 tiZANidine [Zanaflex] 4 mg PO TID PRN 09/21/20 10/18/20 Ferrous Sulfate [Iron (65 MG 325 mg PO DAILY 10/18/20 10/18/20 Elemental)] Folic Acid 1 mg PO DAILY 10/18/20 10/18/20 Insulin Glargine,Hum.rec.anlog 22 unit SQ BID 10/18/20 10/18/20 [Lantus Solostar] Levothyroxine Sodium [Synthroid] 200 mcg PO DAILY 10/18/20 10/18/20 levETIRAcetam [Keppra] 500 mg PO Q12HR 10/18/20 10/18/20 Previous Rx's Medication Instructions Recorded Ticagrelor [Brilinta] 90 mg PO BID tab 06/27/20 Aspirin 81 mg PO DAILY chew 08/20/20 lisinopriL [Zestril] 2.5 mg PO DAILY tab 08/20/20 Ezetimibe [Zetia] 10 mg PO DAILY 30 Days #30 tab 09/15/20 Metoprolol Tartrate [Lopressor] 50 mg PO BID 60 Days #30 tab 09/15/20 Isosorbide Mononitrate ER [Imdur] 30 mg PO BID tab.er.24h 10/03/20 Cefuroxime Axetil [Ceftin] 500 mg PO BID 3 Days #6 tab 10/20/20 Allergies Allergy/AdvReac Type Severity Reaction Status Date / Time gabapentin Allergy Anaphylaxis Verified 10/25/20 17:35 shellfish derived [Crab] Allergy Rash/Hives Verified 10/25/20 17:35 Review of Systems ROS Statement: Those systems with pertinent positive or pertinent negative responses have been documented in the HPI. ROS Other: All systems not noted in ROS Statement are negative. Constitutional: Denies: fever Eyes: Denies: eye pain ENT: Denies: ear pain Respiratory: Reports: as per HPI Cardiovascular: Reports: as per HPI Endocrine: Denies: fatigue Gastrointestinal: Denies: abdominal pain Genitourinary: Denies: dysuria Musculoskeletal: Denies: back pain Skin: Denies: rash Neurological: Denies: weakness Past Medical History Past Medical History: Coronary Artery Disease (CAD), Chest Pain / Angina, COPD, CVA/TIA, Diabetes Mellitus, GI Bleed, Hyperlipidemia, Hypertension, Myocardial Infarction ([place]), Musculoskeletal Disorder, Pneumonia, Thyroid Disorder Additional Past Medical History / Comment(s): MS,cva x4 last one 2016. Last Myocardial Infarction Date:: 2016 History of Any Multi-Drug Resistant Organisms: ESBL Date of last positivie culture/infection: 08/27/20 MDRO Source:: ESBL URINE Past Surgical History: Appendectomy, Bladder Surgery, Cholecystectomy, Coronary Bypass/CABG, Heart Catheterization, Heart Catheterization With Stent, Hysterect benji Additional Past Surgical History / Comment(s): CABG in 2013, Mitral valve on 2016, Heart Stent x 30, bilateral leg stent Past Anesthesia/Blood Transfusion Reactions: No Reported Reaction Date of Last Stent Placement:: 06/25/20 Past Psychological History: Anxiety, Bipolar, Depression Smoking Status: Current every day smoker Past Alcohol Use History: None Reported Past Drug Use History: None Reported - Past Family History Father Family Medical History: Coronary Artery Disease (CAD) Additional Family Medical History / Comment(s): heart disease General Exam Limitations: no limitations General appearance: alert, in no apparent distress Head exam: Present: normocephalic Eye exam: Present: normal appearance Neck exam: Present: normal inspection Respiratory exam: Present: normal lung sounds bilaterally. Absent: chest wall tenderness Cardiovascular Exam: Present: regular rate, normal rhythm Expanded Peripheral pulses: 2+: Radial (R), Radial (L), Dorsalis Pedis (R), Dorsalis Pedis (L) GI/Abdominal exam: Present: soft. Absent: tenderness Extremities exam: Present: normal inspection. Absent: pedal edema, calf tenderness Neurological exam: Present: alert Psychiatric exam: Present: normal affect, normal mood Skin exam: Present: normal color Course Vital Signs 10/25/20 10/25/20 10/25/20 17:30 19:36 20:50 Temperature 100.3 F H 98.1 F Pulse Rate 83 76 78 Respiratory 16 18 18 Rate Blood Pressure 174/92 177/99 147/81 O2 Sat by Pulse 96 97 Oximetry EKG Findings - EKG Comments: EKG Findings:: Normal sinus rhythm at 84. AR 178. QRS 92. QT 394. QTC 465 per left axis. Borderline inferior Q waves. No acute ST change. Medical Decision Making - Medical Decision Making Case was discussed with Dr. Barnes, covering for Dr. Aguilar who is very familiar with this patient. He has seen her multiple times and is well familiar with her history. Patient has multiple recent admissions including recent cardiac evaluation and heart catheterization. He states patient can be discharged and recommends avoiding providing any narcotics to her. He is aware of borderline temperature elevation and states she did have this previously as well. Patient reevaluated and resting comfortably in bed. Patient updated on results and plan. - Lab Data Result diagrams: 10/25/20 18:06 10/25/20 18:06 Lab Results 10/25/20 10/25/20 10/25/20 Range/Units 18:06 18:06 18:06 WBC 5.4 (3.8-10.6) k/uL RBC 4.01 (3.80-5.40) m/uL Hgb 12.8 (11.4-16.0) gm/dL Hct 37.2 (34.0-46.0) % MCV 92.8 (80.0-100.0) fL MCH 31.8 (25.0-35.0) pg MCHC 34.3 (31.0-37.0) g/dL RDW 13.4 (11.5-15.5) % Plt Count 255 (150-450) k/uL MPV 7.3 Neutrophils % 68 % Lymphocytes % 24 % Monocytes % 4 % Eosinophils % 1 % Basophils % 1 % Neutrophils # 3.7 (1.3-7.7) k/uL Lymphocytes # 1.3 (1.0-4.8) k/uL Monocytes # 0.2 (0-1.0) k/uL Eosinophils # 0.1 (0-0.7) k/uL Basophils # 0.0 (0-0.2) k/uL PT 9.5 (9.0-12.0) sec INR 0.9 (<1.2) APTT 22.2 (22.0-30.0) sec D-Dimer 0.74 H (<0.60) mg/L FEU Sodium 134 L (137-145) mmol/L Potassium 4.2 (3.5-5.1) mmol/L Chloride 103 (98-107) mmol/L Carbon Dioxide 24 (22-30) mmol/L Anion Gap 7 mmol/L BUN 15 (7-17) mg/dL Creatinine 0.72 (0.52-1.04) mg/dL Est GFR (CKD-EPI)AfAm >90 (>60 ml/min/1.73 sqM) Est GFR (CKD-EPI)NonAf >90 (>60 ml/min/1.73 sqM) Glucose 398 H (74-99) mg/dL POC Glucose (mg/dL) (75-99) mg/dL POC Glu Sign Painter Helper ID Calcium 9.2 (8.4-10.2) mg/dL Magnesium 1.9 (1.6-2.3) mg/dL Total Bilirubin 0.3 (0.2-1.3) mg/dL AST 20 (14-36) U/L ALT 14 (4-34) U/L Alkaline Phosphatase 104 (38-126) U/L Troponin I (0.000-0.034) ng/mL Total Protein 6.5 (6.3-8.2) g/dL Albumin 4.0 (3.5-5.0) g/dL Coronavirus (PCR) (Not Detectd) 10/25/20 10/25/20 10/25/20 Range/Units 18:06 18:06 20:48 WBC (3.8-10.6) k/uL RBC (3.80-5.40) m/uL Hgb (11.4-16.0) gm/dL Hct (34.0-46.0) % MCV (80.0-100.0) fL MCH (25.0-35.0) pg MCHC (31.0-37.0) g/dL RDW (11.5-15.5) % Plt Count (150-450) k/uL MPV Neutrophils % % Lymphocytes % % Monocytes % % Eosinophils % % Basophils % % Neutrophils # (1.3-7.7) k/uL Lymphocytes # (1.0-4.8) k/uL Monocytes # (0-1.0) k/uL Eosinophils # (0-0.7) k/uL Basophils # (0-0.2) k/uL PT (9.0-12.0) sec INR (<1.2) APTT (22.0-30.0) sec D-Dimer (<0.60) mg/L FEU Sodium (137-145) mmol/L Potassium (3.5-5.1) mmol/L Chloride (98-107) mmol/L Carbon Dioxide (22-30) mmol/L Anion Gap mmol/L BUN (7-17) mg/dL Creatinine (0.52-1.04) mg/dL Est GFR (CKD-EPI)AfAm (>60 ml/min/1.73 sqM) Est GFR (CKD-EPI)NonAf (>60 ml/min/1.73 sqM) Glucose (74-99) mg/dL POC Glucose (mg/dL) 274 H (75-99) mg/dL POC Glu Sign Painter Helper ID Brit Graham Calcium (8.4-10.2) mg/dL Magnesium (1.6-2.3) mg/dL Total Bilirubin (0.2-1.3) mg/dL AST (14-36) U/L ALT (4-34) U/L Alkaline Phosphatase (38-126) U/L Troponin I <0.012 (0.000-0.034) ng/mL Total Protein (6.3-8.2) g/dL Albumin (3.5-5.0) g/dL Coronavirus (PCR) Not Detected (Not Detectd) - Radiology Data Radiology results: report reviewed (CT angios chest negative for pulmonary embolism), image reviewed (Chest x-ray shows no acute process.) Disposition Clinical Impression: Chest pain Disposition: HOME SELF-CARE Condition: Stable Instructions (If sedation given, give patient instructions): Chest Pain (ED) Additional Instructions: Please do follow-up with your primary care physician and solution coordinator within the next day or 2 for recheck. Return for change or worsening symptoms or any other concerns. Is patient prescribed a controlled substance at d/c from ED?: No Referrals: Jerson Aguilar MD [Primary Care Provider] - 1-2 days Jo Ann Zelaya MD [STAFF PHYSICIAN] - 1-2 days Time of Disposition: 20:56
[2020-10-25 18:29] LABS: Basophils % (A) 1 %; Eosinophils # (A) 0.1 k/uL (0-0.7); Eosinophils % (A) 1 %; HCT 37.2 % (34.0-46.0); HGB 12.8 gm/dL (11.4-16.0); Lymphocytes # (A) 1.3 k/uL (1.0-4.8); Lymphocytes % (A) 24 %; MCH 31.8 pg (25.0-35.0); MCHC 34.3 g/dL (31.0-37.0); MCV 92.8 fL (80.0-100.0); Mean Platelet Volume 7.3; Monocytes # (A) 0.2 k/uL (0-1.0); Monocytes % (A) 4 %; Neutrophils # (A) 3.7 k/uL (1.3-7.7); Neutrophils % (A) 68 %; Platelet Count 255 k/uL (150-450); RBC 4.01 m/uL (3.80-5.40); RDW 13.4 % (11.5-15.5); WBC 5.4 k/uL (3.8-10.6)
[2020-10-25 18:37] LABS: ALT 14 U/L (4-34); AST 20 U/L (14-36); African American GFR (CKD) >90 (>60 ml/min/1.73 sqM); Alkaline Phosphatase 104 U/L (38-126); Anion Gap 7 mmol/L; Blood Urea Nitrogen 15 mg/dL (7-17); Calcium 9.2 mg/dL (8.4-10.2); Carbon Dioxide 24 mmol/L (22-30); Chloride 103 mmol/L (98-107); Glucose 398 mg/dL (74-99); Magnesium 1.9 mg/dL (1.6-2.3); Non-African American GFR(CKD) >90 (>60 ml/min/1.73 sqM); Potassium 4.2 mmol/L (3.5-5.1); Sodium 134 mmol/L (137-145); Total Bilirubin 0.3 mg/dL (0.2-1.3); Total Protein 6.5 g/dL (6.3-8.2)
--- NOTE | 2020-10-25 18:38 | XR ---
EXAMINATION TYPE: XR chest 2V DATE OF EXAM: 10/25/2020 COMPARISON: 10/18/2020 HISTORY: Chest pain TECHNIQUE: 2 views FINDINGS: Heart is normal. Lungs are clear infiltrate. There are sternal wires. There is cardiac valv e prosthesis. There is no pleural effusion. There are chest leads. IMPRESSION: No active cardiopulmonary disease. Normal heart. No change.
[2020-10-25 18:55] LABS: INR 0.9 (<1.2); Partial Thromboplastin Time 22.2 sec (22.0-30.0); Prothrombin Time 9.5 sec (9.0-12.0)
[2020-10-25 19:02] LABS: D-Dimer 0.74 mg/L FEU (<0.60)
[2020-10-25] MEDS ORDERED: methylPREDNISolone SOD SUCCI 125 MG/2 ML VIAL IV STA (19:08)
[2020-10-25] MEDS ORDERED: diphenhydrAMINE 50 MG/ML 1 ML VIAL IVP STA (19:08)
[2020-10-25] MEDS ORDERED: FAMOTIDINE 20 MG/2 ML VIAL IV STA (19:08)
[2020-10-25 19:36] VITALS: RESP 18
[2020-10-25] MEDS ORDERED: ONDANSETRON 4 MG/2 ML VIAL IVP STA (19:48)
--- NOTE | 2020-10-25 20:11 | CT ---
EXAMINATION TYPE: CT angio chest DATE OF EXAM: 10/25/2020 COMPARISON: None HISTORY: Dyspnea and chest pain. CT DLP: 389.3 mGycm Automated exposure control for dose reduction was used. CONTRAST: Performed with IV Contrast, patient injected with 100ml mL of Isovue 370. Our 3-D post processed images. The lungs are clear of consolidation. There is no evidence of a pulmonary mass. Heart size is normal. There is no pleural effusion. There is no pericardial effusion. Thoracic aorta is intact. There is no aneurysm or dissection. Ascending aorta measures 3.3 cm. There is no evidence of filling defect in the pulmonary arteries. Thoracic spine is intact. There are sternal wires. Upper abdominal soft tissues are intact. IMPRESSION: No evidence of pulmonary embolism.
[2020-10-25 20:50] LABS: Glucose,Whole Blood 274 mg/dL (75-99)
[2020-10-25 20:51] VITALS: BP 147/81; PULSE 78; TEMP 98.1
[2020-10-25] MEDS ORDERED: INSULIN REGULAR 100 UNIT/ML VIAL SQ ONE (20:53)
== END 2020-10-25 21:12 | disposition home or self-care (01) ==
LOC: EC 17:26
DX: R07.9 Chest pain, unspecified (principal); R11.0 Nausea; R06.00 Dyspnea, unspecified; I25.119 Atherosclerotic heart disease of native coronary artery with unspecified angina pectoris; J44.9 Chronic obstructive pulmonary disease, unspecified; E11.9 Type 2 diabetes mellitus without complications; I10 Essential (primary) hypertension; E78.5 Hyperlipidemia, unspecified; E07.9 Disorder of thyroid, unspecified; F41.9 Anxiety disorder, unspecified; F31.9 Bipolar disorder, unspecified; I25.2 Old myocardial infarction; F17.200 Nicotine dependence, unspecified, uncomplicated; Z20.822 Contact with and (suspected) exposure to COVID-19; Z79.890 Hormone replacement therapy; Z79.4 Long term (current) use of insulin; Z79.899 Other long term (current) drug therapy; Z88.8 Allergy status to other drugs, medicaments and biological substances; Z91.013 Allergy to seafood; Z95.1 Presence of aortocoronary bypass graft; Z95.5 Presence of coronary angioplasty implant and graft; Z86.73 Personal history of transient ischemic attack (TIA), and cerebral infarction without residual deficits
CPT/HCPCS: 99285 ×2; 96374 ×2; 36415; 93005; 85379; 80053; 83735; 84484; 85025; 85610; 85730; 87635; 71046; 71275; J2405; Q9967

== ENCOUNTER 2020-10-27 11:29 | Inpatient (IN) | payer MEDICARE, OTHER ==
[2020-10-27] MEDS ORDERED: PANTOPRAZOLE 40 MG/10 ML VIAL IVP STA (11:49)
--- NOTE | 2020-10-27 11:57 | ED ---
General Adult HPI - General Chief complaint: Abdominal Pain Stated complaint: abdominal pain Time Seen by Provider: 10/27/20 11:31 Source: patient, RN notes reviewed Mode of arrival: EMS Limitations: no limitations - History of Present Illness Initial comments: Patient is a pleasant 55-year-old female presenting to the emergency department with complaints of abdominal discomfort. Onset of symptoms was this morning. Somewhat gradual. Discomfort remains. Patient did talk to her doctor who advised her to come here. Discomfort is left lower abdomen. No history of similar symptoms previously. Patient states discomfort does radiate towards the left leg. No urinary symptoms. Mild nausea. No vomiting and constipation or diarrhea. - Related Data Home Medications Medication Instructions Recorded Confirmed ARIPiprazole [Abilify] 5 mg PO DAILY 05/21/20 10/18/20 Atorvastatin [Lipitor] 80 mg PO DAILY 05/21/20 10/18/20 Cyclobenzaprine [Flexeril] 10 mg PO TID 05/21/20 10/18/20 INSULIN ASPART (NovoLOG) [NovoLOG See Protocol SQ AC-TID PRN 05/21/20 10/18/20 (formulary)] Mirtazapine [Remeron] 45 mg PO HS 05/21/20 10/18/20 QUEtiapine [SEROquel] 50 mg PO HS 05/21/20 10/18/20 Ranolazine [Ranexa] 1,000 mg PO BID 05/21/20 10/18/20 Sertraline [Zoloft] 50 mg PO DAILY 05/21/20 10/18/20 hydrOXYzine pamoate [Vistaril] 25 mg PO TID 05/21/20 10/18/20 Loperamide [Imodium] 2 mg PO QID PRN 06/08/20 10/18/20 HYDROcodone/APAP 5-325MG [Mulvane 1 tab PO TID PRN 09/13/20 10/18/20 5-325] Nitroglycerin Sl Tabs [Nitrostat] 0.4 mg SL Q5M PRN 09/13/20 10/18/20 Furosemide [Lasix] 40 mg PO DAILY 09/21/20 10/18/20 Potassium Chloride ER [K-Dur 20] 20 meq PO DAILY 09/21/20 10/18/20 Spironolactone [Aldactone] 25 mg PO DAILY 09/21/20 10/18/20 tiZANidine [Zanaflex] 4 mg PO TID PRN 09/21/20 10/18/20 Ferrous Sulfate [Iron (65 MG 325 mg PO DAILY 10/18/20 10/18/20 Elemental)] Folic Acid 1 mg PO DAILY 10/18/20 10/18/20 Insulin Glargine,Hum.rec.anlog 22 unit SQ BID 10/18/20 10/18/20 [Lantus Solostar] Levothyroxine Sodium [Synthroid] 200 mcg PO DAILY 10/18/20 10/18/20 levETIRAcetam [Keppra] 500 mg PO Q12HR 10/18/20 10/18/20 Previous Rx's Medication Instructions Recorded Ticagrelor [Brilinta] 90 mg PO BID tab 06/27/20 Aspirin 81 mg PO DAILY chew 08/20/20 lisinopriL [Zestril] 2.5 mg PO DAILY tab 08/20/20 Ezetimibe [Zetia] 10 mg PO DAILY 30 Days #30 tab 09/15/20 Metoprolol Tartrate [Lopressor] 50 mg PO BID 60 Days #30 tab 09/15/20 Isosorbide Mononitrate ER [Imdur] 30 mg PO BID tab.er.24h 10/03/20 Cefuroxime Axetil [Ceftin] 500 mg PO BID 3 Days #6 tab 10/20/20 Allergies Allergy/AdvReac Type Severity Reaction Status Date / Time gabapentin Allergy Anaphylaxis Verified 10/27/20 11:36 shellfish derived [Crab] Allergy Rash/Hives Verified 10/27/20 11:36 Review of Systems ROS Statement: Those systems with pertinent positive or pertinent negative responses have been documented in the HPI. ROS Other: All systems not noted in ROS Statement are negative. Constitutional: Denies: fever Eyes: Denies: eye pain ENT: Denies: ear pain Respiratory: Denies: cough Cardiovascular: Denies: chest pain Endocrine: Denies: fatigue Gastrointestinal: Reports: as per HPI, abdominal pain, nausea Genitourinary: Denies: dysuria Musculoskeletal: Denies: back pain Skin: Denies: rash Neurological: Denies: weakness Past Medical History Past Medical History: Coronary Artery Disease (CAD), Chest Pain / Angina, COPD, CVA/TIA, Diabetes Mellitus, GI Bleed, Hyperlipidemia, Hypertension, Myocardial Infarction ([place]), Musculoskeletal Disorder, Pneumonia, Thyroid Disorder Additional Past Medical History / Comment(s): MS,cva x4 last one 2016. Last Myocardial Infarction Date:: 2016 History of Any Multi-Drug Resistant Organisms: ESBL Date of last positivie culture/infection: 08/27/20 MDRO Source:: ESBL URINE Past Surgical History: Appendectomy, Bladder Surgery, Cholecystectomy, Coronary Bypass/CABG, Heart Catheterization, Heart Catheterization With Stent, Hysterectomy Additional Past Surgical History / Comment(s): CABG in 2013, Mitral valve on 2 017, Heart Stent x 30, bilateral leg stent Past Anesthesia/Blood Transfusion Reactions: No Reported Reaction Date of Last Stent Placement:: 06/25/20 Past Psychological History: Anxiety, Bipolar, Depression Smoking Status: Current every day smoker Past Alcohol Use History: None Reported Past Drug Use History: None Reported - Past Family History Father Family Medical History: Coronary Artery Disease (CAD) Additional Family Medical History / Comment(s): heart disease General Exam Limitations: no limitations General appearance: alert, in no apparent distress Head exam: Present: normocephalic Eye exam: Present: normal appearance Neck exam: Present: normal inspection Respiratory exam: Present: normal lung sounds bilaterally Cardiovascular Exam: Present: regular rate, normal rhythm Expanded Peripheral pulses: 2+: Femoral (L), Posterior Tibialis (R), Posterior Tibialis (L), Dorsalis Pedis (R), Dorsalis Pedis (L) GI/Abdominal exam: Present: soft, tenderness (Mild tenderness left lower abdomen), normal bowel sounds. Absent: distended, guarding, rebound, rigid, pulsatile mass Extremities exam: Present: normal inspection. Absent: tenderness, calf tenderness Neurological exam: Present: alert Psychiatric exam: Present: normal affect, normal mood Skin exam: Present: normal color Course Vital Signs 10/27/20 11:31 Temperature 99.3 F Pulse Rate 90 Respiratory 18 Rate Blood Pressure 147/86 O2 Sat by Pulse 98 Oximetry Medical Decision Making - Medical Decision Making Patient reevaluated and updated. Case was discussed with Dr. Aguilar, who will admit his patient with GI consult. - Lab Data Result diagrams: 10/27/20 12:00 10/27/20 12:00 Lab Results 10/27/20 10/27/20 10/27/20 Range/Units 12:00 12:00 12:00 WBC 6.8 (3.8-10.6) k/uL RBC 4.31 (3.80-5.40) m/uL Hgb 12.9 (11.4-16.0) gm/dL Hct 41.1 (34.0-46.0) % MCV 95.3 (80.0-100.0) fL MCH 29.9 (25.0-35.0) pg MCHC 31.4 (31.0-37.0) g/dL RDW 13.9 (11.5-15.5) % Plt Count 237 (150-450) k/uL MPV 7.4 Neutrophils % 80 % Lymphocytes % 15 % Monocytes % 3 % Eosinophils % 1 % Basophils % 1 % Neutrophils # 5.5 (1.3-7.7) k/uL Lymphocytes # 1.0 (1.0-4.8) k/uL Monocytes # 0.2 (0-1.0) k/uL Eosinophils # 0.1 (0-0.7) k/uL Basophils # 0.0 (0-0.2) k/uL PT 9.8 (9.0-12.0) sec INR 0.9 (<1.2) APTT 21.1 L (22.0-30.0) sec Sodium 134 L (137-145) mmol/L Potassium 4.2 (3.5-5.1) mmol/L Chloride 104 (98-107) mmol/L Carbon Dioxide 19 L (22-30) mmol/L Anion Gap 11 mmol/L BUN 15 (7-17) mg/dL Creatinine 0.73 (0.52-1.04) mg/dL Est GFR (CKD-EPI)AfAm >90 (>60 ml/min/1.73 sqM) Est GFR (CKD-EPI)NonAf >90 (>60 ml/min/1.73 sqM) Glucose 578 H* (74-99) mg/dL Calcium 9.0 (8.4-10.2) mg/dL Total Bilirubin 0.4 (0.2-1.3) mg/dL AST 20 (14-36) U/L ALT 14 (4-34) U/L Alkaline Phosphatase 106 (38-126) U/L Total Protein 6.3 (6.3-8.2) g/dL Albumin 3.8 (3.5-5.0) g/dL Amylase 31 (30-110) U/L Lipase 40 (23-300) U/L - Radiology Data Radiology results: report reviewed (Ultrasound negative for DVT. Computed tomography scan of the abdomen does show suspected mild multifocal uncomplicated proximal colitis.) Disposition Clinical Impression: Colitis Disposition: ADMITTED IP TO THIS HOSP Is patient prescribed a controlled substance at d/c from ED?: No Referrals: Jerson Aguilar MD [Primary Care Provider] - 1-2 days Decision Time: 15:04
[2020-10-27 12:09] LABS: Basophils % (A) 1 %; Eosinophils # (A) 0.1 k/uL (0-0.7); Eosinophils % (A) 1 %; HCT 41.1 % (34.0-46.0); HGB 12.9 gm/dL (11.4-16.0); Lymphocytes % (A) 15 %; MCH 29.9 pg (25.0-35.0); MCHC 31.4 g/dL (31.0-37.0); MCV 95.3 fL (80.0-100.0); Mean Platelet Volume 7.4; Monocytes # (A) 0.2 k/uL (0-1.0); Monocytes % (A) 3 %; Neutrophils # (A) 5.5 k/uL (1.3-7.7); Neutrophils % (A) 80 %; Platelet Count 237 k/uL (150-450); RBC 4.31 m/uL (3.80-5.40); RDW 13.9 % (11.5-15.5); WBC 6.8 k/uL (3.8-10.6)
[2020-10-27 12:25] LABS: ALT 14 U/L (4-34); AST 20 U/L (14-36); African American GFR (CKD) >90 (>60 ml/min/1.73 sqM); Albumin 3.8 g/dL (3.5-5.0); Alkaline Phosphatase 106 U/L (38-126); Amylase 31 U/L (30-110); Anion Gap 11 mmol/L; Blood Urea Nitrogen 15 mg/dL (7-17); Carbon Dioxide 19 mmol/L (22-30); Chloride 104 mmol/L (98-107); Lipase 40 U/L (23-300); Non-African American GFR(CKD) >90 (>60 ml/min/1.73 sqM); Potassium 4.2 mmol/L (3.5-5.1); Sodium 134 mmol/L (137-145); Total Bilirubin 0.4 mg/dL (0.2-1.3); Total Protein 6.3 g/dL (6.3-8.2)
[2020-10-27 12:51] LABS: INR 0.9 (<1.2); Prothrombin Time 9.8 sec (9.0-12.0)
[2020-10-27 12:55] LABS: Partial Thromboplastin Time 21.1 sec (22.0-30.0)
[2020-10-27 12:56] LABS: Glucose 578 mg/dL (74-99)
[2020-10-27] MEDS ORDERED: ONDANSETRON 4 MG/2 ML VIAL IVP STA (13:07)
[2020-10-27] MEDS ORDERED: INSULIN REGULAR 100 UNIT/ML VIAL SQ ONE (13:07)
--- NOTE | 2020-10-27 13:15 | US ---
EXAMINATION TYPE: US venous doppler duplex LE LT DATE OF EXAM: 10/27/2020 12:44 PM COMPARISON: Prior ultrasound July 23, 2020 CLINICAL HISTORY: pain. left leg pain SIDE PERFORMED: left TECHNIQUE: The lower extremity deep venous system is examined utilizing real time linear array sonog zeferino with graded compression, doppler sonography and color-flow sonography. VESSELS IMAGED: Common Femoral Vein Deep Femoral Vein Greater Saphenous Vein * Femoral Vein Popliteal Vein Small Saphenous Vein * Proximal Calf Veins (* superficial vessels) Left Leg: No evidence of DVT Grayscale, color doppler, spectral doppler imaging performed of the deep veins of the left lower extr emity. There is normal flow, compressibility, vascular waveforms. Improved overlying subcutaneous e jean noted left calf region. IMPRESSION: No ultrasound evidence for acute DVT in the left lower extremity.
--- NOTE | 2020-10-27 13:48 | CT ---
EXAMINATION TYPE: CT abdomen pelvis w con DATE OF EXAM: 10/27/2020 HISTORY: Abd pain. Left lower quadrant pain with nausea. History of diverticulitis. CT DLP: 1121.4mGycm Automated Exposure Control for Dose Reduction was Utilized. CONTRAST: CT scan of the abdomen and pelvis is performed without oral but with IV Contrast, patient injected wi th 100 mL of Isovue 300. COMPARISON: CT abdomen and pelvis August 27, 2020. FINDINGS: LUNG BASES: Partial visualization of metallic mitral valve. Suspect coronary artery stents. LIVER/GB: Cholecystectomy clips. PANCREAS: Focal moderate to severe fat replaced atrophy level pancreatic head redemonstrated. SPLEEN: Small splenule in level of the pancreatic tail redemonstrated. ADRENALS: No significant abnormality is seen. KIDNEYS: New right-sided extrarenal pelvis. No delayed excretion or calyceal dilatation. Nondependent air in bladder is redemonstrated. BOWEL: Suboptimal evaluation without enteric contrast. Stomach poorly distended and thus suboptimally evaluated. [id number] wall thickening portions of the right and proximal transverse colon incl uding a level of hepatic flexure. Some sigmoid colonic diverticula. No CT evidence for acute divertic ulitis. UTERUS/ADNEXA: Uterus surgically absent. LYMPH NODES: No greater than 1cm abdominal or pelvic lymph nodes are appreciated. OSSEOUS STRUCTURES: No significant abnormality is seen. OTHER: Severe calcified plaque of the aorta extends into branch vessels. IMPRESSION: Sigmoid colonic diverticulosis, no convincing CT evidence for acute diverticulitis curren tly. No bowel obstruction. Nondependent air in bladder raises concern for possible fistula, correlate clinically. Differential includes recent catheterization. Suspect new mild multifocal uncomplicated proximal colitis, correlate clinically.
[2020-10-27] MEDS ORDERED: AMPICILLIN-SULBACTAM 1.5 GM in SODIUM CHLORIDE 0.9% 50 ML IVPB STA (15:06)
[2020-10-27] MEDS ORDERED: ONDANSETRON 4 MG/2 ML VIAL IVP PRN (15:08)
[2020-10-27 15:09] LABS: Glucose,Whole Blood 340 mg/dL (75-99)
[2020-10-27] MEDS: SODIUM CHLORIDE 0.9% 1,000 ML IV SCH (15:59)
[2020-10-27] MEDS: HYDROmorphone 0.5 MG/0.5 ML SYRINGE IVP PRN ×3 (15:59→21:52)
[2020-10-27 17:07] LABS: Glucose,Whole Blood 257 mg/dL (75-99)
[2020-10-27] MEDS: INSULIN ASPART (NovoLOG) 100 UNIT/ML VIAL SQ SCH ×2 (17:40→21:10)
[2020-10-27] MEDS ORDERED: LOPERAMIDE 2 MG CAP PO PRN (20:12)
[2020-10-27] MEDS ORDERED: tiZANidine 4 MG TAB PO PRN (20:12)
[2020-10-27] MEDS ORDERED: NITROGLYCERIN SL TABS 0.4 MG TAB SUBLINGUAL PRN (20:12)
[2020-10-27 20:36] LABS: Glucose,Whole Blood 156 mg/dL (75-99)
[2020-10-27] MEDS: ISOSORBIDE MONONITRATE ER 30 MG TAB.ER.24H PO SCH (21:40)
[2020-10-27] MEDS: QUEtiapine 50 MG TAB PO SCH (21:40)
[2020-10-27] MEDS: MIRTAZAPINE 45 MG TABLET PO SCH (21:41)
[2020-10-27] MEDS: METOPROLOL TARTRATE 50 MG TAB PO SCH (21:41)
[2020-10-27] MEDS: TICAGRELOR 90 MG TAB PO SCH (21:41)
[2020-10-27] MEDS: levETIRAcetam 500 MG TAB PO SCH (21:41)
[2020-10-27] MEDS: hydrOXYzine pamoate 25 MG CAP PO SCH (21:41)
[2020-10-27] MEDS: AMPICILLIN-SULBACTAM 1.5 GM in SODIUM CHLORIDE 0.9% 50 ML IVPB SCH (21:42)
[2020-10-27] MEDS: RANOLAZINE 500 MG TAB.ER.12H PO SCH (21:42)
[2020-10-27] MEDS: INSULIN DETEMIR (LEVEMIR) 100 UNIT/ML SYR SQ SCH (21:53)
[2020-10-27] MEDS ORDERED: CYCLOBENZAPRINE 10 MG TAB PO SCH (22:00)
[2020-10-28] MEDS: HYDROmorphone 0.5 MG/0.5 ML SYRINGE IVP PRN ×4 (02:09→22:58)
[2020-10-28] MEDS: SODIUM CHLORIDE 0.9% 1,000 ML IV SCH ×4 (03:15→23:52)
[2020-10-28] MEDS: AMPICILLIN-SULBACTAM 1.5 GM in SODIUM CHLORIDE 0.9% 50 ML IVPB SCH ×4 (03:15→22:42)
[2020-10-28] MEDS: HYDROmorphone 1 MG/ML 1 ML SYRINGE IVP PRN (05:48)
[2020-10-28] MEDS: LEVOTHYROXINE 100 MCG TAB PO SCH (05:49)
[2020-10-28 06:41] LABS: Glucose,Whole Blood 81 mg/dL (75-99)
[2020-10-28] MEDS: INSULIN ASPART (NovoLOG) 100 UNIT/ML VIAL SQ SCH ×4 (06:41→22:30)
[2020-10-28] MEDS: PANTOPRAZOLE 40 MG TABLET PO SCH (06:43)
[2020-10-28] MEDS ORDERED: PANTOPRAZOLE 40 MG/10 ML VIAL IV SCH (09:00)
[2020-10-28] MEDS: ARIPiprazole 5 MG TAB PO SCH (10:26)
[2020-10-28] MEDS: RANOLAZINE 500 MG TAB.ER.12H PO SCH ×2 (10:26→22:42)
[2020-10-28] MEDS: ISOSORBIDE MONONITRATE ER 30 MG TAB.ER.24H PO SCH ×2 (10:26→22:42)
[2020-10-28] MEDS: ASPIRIN 81 MG PO SCH (10:26)
[2020-10-28] MEDS: hydrOXYzine pamoate 25 MG CAP PO SCH ×3 (10:27→22:41)
[2020-10-28] MEDS: TICAGRELOR 90 MG TAB PO SCH ×2 (10:27→22:41)
[2020-10-28] MEDS: SPIRONOLACTONE 25 MG TAB PO SCH (10:27)
[2020-10-28] MEDS: SERTRALINE 50 MG TAB PO SCH (10:27)
[2020-10-28] MEDS: ATORVASTATIN 80 MG TAB PO SCH (10:28)
[2020-10-28] MEDS: POTASSIUM CHLORIDE ER 20 MEQ TAB.ER PO SCH (10:28)
[2020-10-28] MEDS: FUROSEMIDE 40 MG TAB PO SCH (10:28)
[2020-10-28] MEDS: levETIRAcetam 500 MG TAB PO SCH ×2 (10:29→22:41)
[2020-10-28] MEDS: EZETIMIBE 10 MG TAB PO SCH (10:29)
[2020-10-28] MEDS: FOLIC ACID 1 MG TAB PO SCH (10:29)
[2020-10-28] MEDS: FERROUS SULFATE 325 MG TAB PO SCH (10:29)
[2020-10-28 10:30] LABS: Glucose,Whole Blood 65 mg/dL (75-99)
--- NOTE | 2020-10-28 10:40 | P.HPIM ---
History of Present Illness H&P Date: 10/28/20 Aminta Sheikh, is a 55-year-old female who presented to [facility] emergency room, with a chief complaint of abdominal pain that started on the day of admission in the morning and continued to worsen gradually, her abdominal pain was radiating toward her left lower extremity, patient was also complaining of nausea but no vomiting no diarrhea or constipation she denies any blood in her stools she denies any urinary symptoms. She was evaluated in the emergency room, vital examination on presentation revealed a temperature of 99.3 pulse 90 respiration 18 blood pressure 147/86 pulse ox 98% on room air. White blood count was 6.8 hemoglobin 12.9 platelet count 237 sodium 134 potassium 4.2 chloride 104 CO2 19 BUN 15 creatinine 0.73 glucose was elevated at 578 AST and ALT were normal amylase and lipase were normal coronavirus PCR was negative. Patient underwent a venous Doppler of the left lower extremity in emergency room that was negative for DVT, she also underwent a computed tomography scan of the abdomen and pelvis with contrast, that revealed evidence of multifocal and complicated proximal colitis, she was started on IV antibiotic Unasyn in the emergency room and was admitted to medical floor, gastroenterology consultation was requested. Past Medical History Past Medical History: Coronary Artery Disease (CAD), Chest Pain / Angina, COPD, CVA/TIA, Diabetes Mellitus, GI Bleed, Hyperlipidemia, Hypertension, Myocardial Infarction ([place]), Musculoskeletal Disorder, Pneumonia, Thyroid Disorder Additional Past Medical History / Comment(s): Multiple Sclerosis, brain bleeds,cva x4 last one 2017. 2 strokes at age 48. Diverticulitis. Ambulates with a walker. Last Myocardial Infarction Date:: 2015 History of Any Multi-Drug Resistant Organisms: ESBL Date of last positivie culture/infection: 08/27/20 MDRO Source:: ESBL URINE Past Surgical History: Appendectomy, Bladder Surgery, Cholecystectomy, Coronary Bypass/CABG, Heart Catheterization, Heart Catheterization With Stent, Hysterectomy Additional Past Surgical History / Comment(s): CABG in 2013, Mitral valve on 2017, Heart Stent x thirty (30), bilateral leg stents Past Anesthesia/Blood Transfusion Reactions: No Reported Reaction Date of Last Stent Placement:: 06/25/20 Past Psychological History: Anxiety, Bipolar, Depression Smoking Status: Current every day smoker Past Alcohol Use History: None Reported Past Drug Use History: None Reported - Past Family History Father Family Medical History: Coronary Artery Disease (CAD) Additional Family Medical History / Comment(s): heart disease Mother Family Medical History: Cancer Additional Family Medical History / Comment(s): Lung cancer Medications and Allergies Home Medications Medication Instructions Recorded Confirmed Type ARIPiprazole [Abilify] 5 mg PO DAILY 05/21/20 10/27/20 History Atorvastatin [Lipitor] 80 mg PO DAILY 05/21/20 10/27/20 History Cyclobenzaprine [Flexeril] 10 mg PO TID 05/21/20 10/27/20 History INSULIN ASPART (NovoLOG) [NovoLOG See Protocol SQ AC-TID 05/21/20 10/27/20 Hist ory (formulary)] Mirtazapine [Remeron] 45 mg PO HS 05/21/20 10/27/20 History QUEtiapine [SEROquel] 50 mg PO HS 05/21/20 10/27/20 History Ranolazine [Ranexa] 1,000 mg PO BID 05/21/20 10/27/20 History Sertraline [Zoloft] 50 mg PO DAILY 05/21/20 10/27/20 History hydrOXYzine pamoate [Vistaril] 25 mg PO TID 05/21/20 10/27/20 History Loperamide [Imodium] 2 mg PO QID PRN 06/08/20 10/27/20 History Ticagrelor [Brilinta] 90 mg PO BID tab 06/27/20 10/27/20 Rx Aspirin 81 mg PO DAILY chew 08/20/20 10/27/20 Rx lisinopriL [Zestril] 2.5 mg PO DAILY tab 08/20/20 10/27/20 Rx HYDROcodone/APAP 5-325MG [[place] 1 tab PO TID PRN 09/13/20 10/27/20 History 5-325] Nitroglycerin Sl Tabs [Nitrostat] 0.4 mg SL Q5M PRN 09/13/20 10/27/20 History Ezetimibe [Zetia] 10 mg PO DAILY 30 Days #30 tab 09/15/20 10/27/20 Rx Metoprolol Tartrate [Lopressor] 50 mg PO BID 60 Days #30 tab 09/15/20 10/27/20 Rx Furosemide [Lasix] 40 mg PO DAILY 09/21/20 10/27/20 History Potassium Chloride ER [K-Dur 20] 20 meq PO DAILY 09/21/20 10/27/20 History Spironolactone [Aldactone] 25 mg PO DAILY 09/21/20 10/27/20 History tiZANidine [Zanaflex] 4 mg PO TID PRN 09/21/20 10/27/20 History Isosorbide Mononitrate ER [Imdur] 30 mg PO BID tab.er.24h 10/03/20 10/27/20 Rx Ferrous Sulfate [Iron (65 MG 325 mg PO DAILY 10/18/20 10/27/20 History Elemental)] Folic Acid 1 mg PO DAILY 10/18/20 10/27/20 History Insulin Glargine,Hum.rec.anlog 22 unit SQ BID 10/18/20 10/27/20 History [Lantus Solostar] Levothyroxine Sodium [Synthroid] 200 mcg PO DAILY 10/18/20 10/27/20 History levETIRAcetam [Keppra] 500 mg PO Q12H 10/18/20 10/27/20 History Allergies Allergy/AdvReac Type Severity Reaction Status Date / Time gabapentin Allergy Severe Anaphylaxis Verified 10/27/20 17:54 shellfish derived [Crab] Allergy Intermediate Rash/Hives Verified 10/27/20 17:54 Physical Exam Vitals: Vital Signs Temp Pulse Pulse Resp BP BP Pulse Ox 10/28/20 02:00 97.9 F 61 16 113/72 100 10/27/20 20:15 98.1 F 80 16 115/77 98 10/27/20 16:55 98.4 F 74 18 139/83 96 10/27/20 16:10 97.9 F 78 18 124/74 97 10/27/20 11:31 99.3 F 90 18 147/86 98 Intake and Output 10/27/20 10/28/20 10/28/20 22:59 06:59 14:59 Intake Total 480 Balance 480 Intake: Oral 480 Other: # Voids 3 Weight 76.204 kg In general patient is alert and oriented 3 in no apparent distress HEENT head normocephalic and atraumatic Neck is supple no JVD no goiter no lymphadenopathy Chest exam reveals a few scattered rhonchi bilaterally no wheezing Cardiac exam reveals regular heart sounds S1 and S2 no gallops no murmurs Abdomen is soft with mild diffuse tenderness no organomegaly with normal bowel sounds Extremity exam reveals no edema no cyanosis or clubbing Neurological examination reveals no gross focal deficit Results CBC & Chem 7: 10/27/20 12:00 10/27/20 12:00 Labs: Abnormal Lab Results - Last 24 Hours (Table) 10/27/20 10/27/20 10/27/20 Range/Units 12:00 12:00 15:07 APTT 21.1 L (22.0-30.0) sec Sodium 134 L (137-145) mmol/L Carbon Dioxide 19 L (22-30) mmol/L Glucose 578 H* (74-99) mg/dL POC Glucose (mg/dL) 340 H (75-99) mg/dL 10/27/20 10/27/20 Range/Units 17:05 20:34 APTT (22.0-30.0) sec Sodium (137-145) mmol/L Carbon Dioxide (22-30) mmol/L Glucose (74-99) mg/dL POC Glucose (mg/dL) 257 H 156 H (75-99) mg/dL Thrombosis Risk Factor Assmnt - Choose All That Apply Each Factor Represents 1 point: Abnormal pulmonary function (COPD), Age 41-60 years, Hx of IBD, Obesity (BMI >25) Other Risk Factors: Yes Each Risk Factor Represents 3 Points: Family history of DVT/PE, History of DVT/PE Other congenital or acquired thrombophilia - If yes, enter type in comment: No Thrombosis Risk Factor Assessment Total Risk Factor Score: 10 Thrombosis Risk Factor Assessment Level: High Risk Assessment and Plan Plan: 1. Abdominal pain with computed tomography scan of the abdomen showing evidence of colitis, patient was started on IV antibiotic in the emergency room and was admitted to medical floor gastroenterology consultation was requested. 2. History of coronary artery disease with multiple angioplasty and stent placement and history of coronary artery bypass graft surgery 3. Underlying history of hypertension 4. Underlying history of hyperlipidemia 5. Underlying history of insulin-dependent diabetes mellitus 6. Underlying history of depression , bipolar disorder and anxiety disorder 7. Underlying history of hypothyroidism 8. Underlying history of tobacco abuse, patient was counseled in length in regard to smoking cessation counseling more than 5 minutes today. 9. Underlying history of seizure disorder maintained on Keppra At this time patient is medically stable, will continue with current IV antibiotics Awaiting consultation with gastroenterology for further input Home medication were reviewed and reordered
[2020-10-28 10:49] LABS: Glucose,Whole Blood 65 mg/dL (75-99)
[2020-10-28 11:01] LABS: Glucose,Whole Blood 77 mg/dL (75-99)
[2020-10-28] MEDS: INSULIN DETEMIR (LEVEMIR) 100 UNIT/ML SYR SQ SCH ×3 (11:36→22:42)
[2020-10-28] MEDS: METOPROLOL TARTRATE 50 MG TAB PO SCH ×2 (11:37→22:41)
[2020-10-28 13:10] LABS: Glucose,Whole Blood 145 mg/dL (75-99)
--- NOTE | 2020-10-28 17:08 | CONS ---
CONSULTATION DATE OF DICTATION: 10/28/2020 REASON FOR CONSULTATION: Abdominal pain. HISTORY OF PRESENT ILLNESS: The patient is a 55-year-old pleasant white female who came to the emergency room complaining of severe lower abdominal pain that started yesterday morning. She denies any diarrhea; in fact, she thought she was slightly constipated. This was followed with intense nausea but no emesis. The pain continued to progressively get worse and she came to the emergency room and she had a CT of the abdomen and pelvis done in the emergency room that showed thickening of the right colon in the transverse colon consistent with colitis. She was started on broad-spectrum antibiotics and she was admitted to the hospital for further evaluation. This morning she states that she continues to feel the same. She had no bowel movements for 3 days. She still has nausea but no emesis. Presently on a clear liquid diet, tolerating well. Her last colonoscopy was done by Dr. Brewer in July of this year that showed diverticulosis and small internal hemorrhoids. PAST MEDICAL HISTORY: Significant for coronary artery disease, congestive heart failure, CVA in the past, history of diabetes mellitus, hypertension, hyperlipidemia, coronary artery disease, status post MD in the past, and hypothyroidism. PAST SURGICAL HISTORY: Appendectomy, bladder surgery, cholecystectomy, CABG, cardiac catheterization with stent placement, hysterectomy, mitral valve repair. MEDICATIONS: Medications at home include Abilify, Lipitor, Flexeril, NovoLog, Remeron, Seroquel, Ranexa, Zoloft, Vistaril, Imodium, Brilinta, Zestril, aspirin, [place]a, Nitrostat, Zetia, Lasix, Lopressor, Aldactone, Zanaflex, Imdur, iron sulfate, Lantus, Synthroid and Keppra. ALLERGIES: GABAPENTIN and SHELLFISH. SOCIAL HISTORY: Chronic smoker. No alcohol use. FAMILY HISTORY: Father with coronary artery disease and mother had lung cancer. REVIEW OF SYSTEMS: CARDIOPULMONARY: No chest pain or shortness of breath. GENITOURINARY: She does complain of some dysuria. NEUROLOGY: Unremarkable. PSYCHIATRY: Unremarkable. ENT/VISION: Unremarkable. CONSTITUTIONAL: No recent weight loss. No fever, chills, night sweats. HEMATOLOGY: Unremarkable. ENDOCRINE: Unremarkable. PHYSICAL EXAMINATION: She appears comfortable. No apparent distress. Vital signs are stable. Blood pressure is 97/57, pulse rate 59, temperature 97.4. HEENT examination unremarkable. Conjunctivae pink. Sclerae anicteric. Oral cavity no lesions. NECK: No JVD or lymph node enlargement. CHEST: Clear to auscultation. HEART: Regular rate and rhythm. ABDOMEN: Soft. Bowel sounds are positive. No organomegaly. There was tenderness in the right lower quadrant area as well as in the suprapubic area and mild tenderness in the left lower quadrant area. EXTREMITIES: No pedal edema. LABS: Labs done at the time of admission to the hospital: WBC 6.8, hemoglobin 12.9, platelets normal. Basic metabolic panel is within normal limits. BUN and creatinine are 15 and 0.73, respectively. Blood sugar was 578. Amylase and lipase are normal. Coronavirus PCR is negative. CT of the abdomen and pelvis showed thickening of the transverse colon, hepatic flexure and the right colon, all consistent with acute colitis. Sigmoid diverticulosis noted. IMPRESSION: 1. This is a lady who presented with acute onset of severe lower abdominal pain that started yesterday morning associated with intense nausea but no emesis. CT scan showed thickening of the right colon as well as transverse colon consistent with acute colitis. Surprisingly, patient does not have any diarrhea; in fact, she feels somewhat constipated. Her last colonoscopy by Dr. Brewer in July of this year was unremarkable other than sigmoid diverticulosis and small internal hemorrhoids. At this time, possibility of acute infectious colitis needs to be considered. Doubt ischemic colitis, but this cannot be entirely excluded. 2. History of hypertension and hyperlipidemia. 3. History of coronary artery disease, status post coronary artery bypass grafting in the past and status post myocardial infarction in the past. 4. History of hypothyroidism. 5. History of anxiety and depression. RECOMMENDATIONS: 1. Continue with clear liquid diet. 2. Agree with antibiotics. 3. Monitor labs closely. 4. Advance diet as tolerated based on her symptoms. 5. No plans on any endoscopic intervention at this time. 6. Will follow with you closely. Thank you for this consultation. MMODL / IJN: [id number] /
[2020-10-28 17:29] LABS: Glucose,Whole Blood 175 mg/dL (75-99)
[2020-10-28] MEDS: HYDROcodone/APAP 5-325MG 1 EACH TAB PO PRN (19:35)
[2020-10-28] MEDS: QUEtiapine 50 MG TAB PO SCH (22:42)
[2020-10-28] MEDS: MIRTAZAPINE 45 MG TABLET PO SCH (22:42)
[2020-10-29] MEDS: NALOXONE 0.4 MG/ML 1 ML VIAL IV PRN ×2 (02:43→04:51)
[2020-10-29 03:05] LABS: Glucose,Whole Blood 94 mg/dL (75-99)
--- NOTE | 2020-10-29 03:37 | P.EN ---
A team called on this patient 55 year old female with strong cardiac history of CAD , s/p multiple stents and CABG. patient admitted for GI workup , due to abd pain and imaging findings of possible colitis , maintained on Unasyn. she received multiple doses of dilaudid during her hospital stay , which she tolerated well. A team called, for when patient found sleepy with slow breathing, and narcan was given while await A team evaluation. patient was last seen "normal " and talking per nursing staff about 1.5 hours ago. her last dose of dilaudid was about 4 hours ago. immediately after narcan , she stood up from the chair , looked confused, and walked to the bathroom , soiled her self . and was not acting normal to her RN. upon A team eval , patient was looking confused, walking strangely with one leg being stiff, holding to the IV pole, aphasic, got to the bed and struggled to cover herself. she makes brief eye contact while scanning the room , mumbles incoherent sounds but with angry facial expressions when attempt to interview, and would push away using only her left arm when attempt to examine her. Per her RN , this is very atypical of her patient had elevated blood sugar upon admission , currently blood sugar 94 she also has history of seizures , on keppra. Code stroke was activated and patient was taken for CT of her brain without contrast. check ABG check CBC, CMP, lactic acid acute onset altered mental status with aphasia possible right sided weakness , was difficult to assess due to patient confusion and lack of cooperation at this time . limited exam 36 minutes were spent providing critical care service in the care of this patient
--- NOTE | 2020-10-29 03:43 | CT ---
EXAM: CT Head Without Intravenous Contrast CLINICAL HISTORY: ITS.REASON CT Reason: Possible stroke TECHNIQUE: Axial computed tomography images of the head/brain without intravenous contrast. CTDI is 57.40 mGy and DLP is 1098.90 mGy-cm. This CT exam was performed using one or more of the following dose reduction techniques: automated exposure control, adjustment of the mA and/or kV according to patient size, and/or use of iterative reconstruction technique. COMPARISON: 1.2 thousand 21 FINDINGS: Brain: No hemorrhage or mass effect. Mild cerebral volume loss. Periventricular white matter hypodensities. Tiny old right cerebellar infarct. Old bilateral periventricular lacunar infarcts. Ventricles: No hydrocephalus. Bones/joints: Unremarkable. Soft tissues: Unremarkable. Sinuses: Unremarkable. Mastoid air cells: Clear. IMPRESSION: Periventricular hypodensities, likely chronic microvascular ischemic changes, more than expected in this age group. Old tiny lacunar infarcts are again seen. No acute hemorrhage, hydrocephalus, or mass effect.
[2020-10-29 04:54] LABS: Basophils % (A) 0 %; Eosinophils # (A) 0.1 k/uL (0-0.7); Eosinophils % (A) 1 %; HGB 12.9 gm/dL (11.4-16.0); Lymphocytes # (A) 0.9 k/uL (1.0-4.8); Lymphocytes % (A) 10 %; MCH 30.8 pg (25.0-35.0); MCHC 33.1 g/dL (31.0-37.0); MCV 92.9 fL (80.0-100.0); Monocytes # (A) 0.3 k/uL (0-1.0); Monocytes % (A) 3 %; Neutrophils # (A) 7.1 k/uL (1.3-7.7); Neutrophils % (A) 84 %; Platelet Count 273 k/uL (150-450); RDW 13.7 % (11.5-15.5); WBC 8.4 k/uL (3.8-10.6)
[2020-10-29 05:16] LABS: Calcium 8.3 mg/dL (8.4-10.2); Potassium 3.6 mmol/L (3.5-5.1); Total Bilirubin 0.5 mg/dL (0.2-1.3); Total Protein 6.6 g/dL (6.3-8.2)
[2020-10-29] MEDS: SODIUM CHLORIDE 0.9% 1,000 ML IV SCH ×4 (06:53→22:41)
[2020-10-29] MEDS: INSULIN ASPART (NovoLOG) 100 UNIT/ML VIAL SQ SCH ×4 (07:25→20:45)
[2020-10-29] MEDS: AMPICILLIN-SULBACTAM 1.5 GM in SODIUM CHLORIDE 0.9% 50 ML IVPB SCH ×3 (08:32→16:00)
[2020-10-29] MEDS: POTASSIUM CHLORIDE 10 MEQ in WATER FOR INJECTION 1 100ML.BAG IVPB SCH ×3 (09:19→11:20)
--- NOTE | 2020-10-29 09:25 | P.CNNES ---
History of Present Illness Consult date: 10/29/20 Requesting physician: Helio Cadena Reason for Consult: code stroke for aphasia and right arm weakness History of Present Illness: This is a 55-year-old woman with medical history of stroke/TIA multiple times in the last one was in 2017, seizures, diabetes mellitus, hyperlipidemia, hypertension, coronary artery disease s/p stent and CABG that presented emergency department on 10/18/2020 for abdominal discomfort. Neurology is consulted for altered mental status with a code stroke for right arm weakness and aphasia. History is obtained from medical records since patient is unable to provide all the history. Patient is being worked up in the Hospital for possible colitis and was on Unasyn. During the hospital stay the patient is on [place] 5/325 one tablet 3 times a day when necessary, Dilaudid 0.5 mg every 3 hours when necessary, Dilaudid 1 mg every 3 hours when necessary.During the hospital stay she received multiple Dilaudid and overnight around 3ish in AM of 10/29/2020 patient the was found sleepy, slowly breathing as a result the patient was given Narcan but it is reported that the patient briefly after that and continue to look confused, was mumbling and sounded incoherent and was only pushing away with her left arm. It is reported that this is atypical per the patient's nurse and her last normal was about 1-1/2 hours prior to that. Per the primary care physician overnight it is documented that the patient the possibly has right-sided weakness, was difficult to assess due to the patient's confusion and lack of cooperation at this time and exam was limited. As a result a code stroke was activated. CT of the head was done and it was reported as periventricular hypodensity likely chronic microvascular ischemic change more than expected in this age group. Only tiny lacunar infarct age are seen. No acute hemorrhage, hydrocephalus or mass effect. No IV TPA was given. Stroke i ntervention attending as a result recommended neurology to be consulted and the patient was transferred to the ICU. She was not given tpa. Patient's blood sugar around that time was around 24 and that's what was documented. Per the patient she stated that she does have history of stroke but she cannot tell me what symptoms she had in the past. She also stated that the she also has history of seizures in the past and has not had it in many years and cannot tell me what kind of seizures she has. She stated that she has multiple sclerosis and cannot tell me what medication she is on. She said that she's not following up with a neurologist rather follows up with her primary care to treat old her neurological workup according to the patient. Cannot tell me her seizure semiology The patient is on aspirin 81 mg, Brilinta 90 mg 1 tablet twice a day, and Lipitor 80mg daily (home medications). She is on Keppra 500 mg every 12 hours for seizure (home medication). Patient initial NIH at the stroke code was 18 and the points that she scored were 2 for loss of consciousness questions, 2 commands, 1 best gaze, 2 right arm, 2 right leg, 2 left arm, 2 left leg, 2 best language, 2 dysarthria,. Her NIH improved to 7: 2 LOC questions, 2 commands 2 language and 1 dysarthria. Patient vitals around that time was: Blood pressure of 131/73, r heart rate was 63, espiratory rates 9, temperature of 96.7 Fahrenheit axillary, pulse ox of 99% at room air. Patient's respiratory rate 1 down to the 8 during all this episode the last respiratory rate is 12. On presentation to the hospital respiratory rate was 18. White blood cell is 8.4 which is normal. The basic metabolic panel is the sodium is 137 which is normal, serum glucose is 90 which is normal, BUN/creatinine is normal, glucose is 8.3 which is mildly low, the AST was 24 and ALT is 15. Possible lactic acid vein was 2.4. Review of Systems Review of system: The 12 point system was reviewed and apparent positive and negative per HPI. Past Medical History Past Medical History: Coronary Artery Disease (CAD), Chest Pain / Angina, COPD, CVA/TIA, Diabetes Mellitus, GI Bleed, Hyperlipidemia, Hypertension, Myocardial Infarction (MT), Musculoskeletal Disorder, Pneumonia, Thyroid Disorder Additional Past Medical History / Comment(s): Multiple Sclerosis, brain bleeds,cva x4 last one 2016. 2 strokes at age 48. Diverticulitis. Ambulates with a walker. Last Myocardial Infarction Date:: 2015 History of Any Multi-Drug Resistant Organisms: ESBL Date of last positivie culture/infection: 08/27/20 MDRO Source:: ESBL URINE Past Surgical History: Appendectomy, Bladder Surgery, Cholecystectomy, Coronary Bypass/CABG, Heart Catheterization, Heart Catheterization With Stent, Hysterectomy Additional Past Surgical History / Comment(s): CABG in 2014, Mitral valve on 2017, Heart Stent x thirty (30), bilateral leg stents Past Anesthesia/Blood Transfusion Reactions: No Reported Reaction Date of Last Stent Placement:: 06/25/20 Past Psychological History: Anxiety, Bipolar, Depression Smoking Status: Current every day smoker Past Alcohol Use History: None Reported Past Drug Use History: None Reported - Past Family History Father Family Medical History: Coronary Artery Disease (CAD) Additional Family Medical History / Comment(s): heart disease Mother Family Medical History: Cancer Additional Family Medical History / Comment(s): Lung cancer Medications and Allergies Home Medications Medication Instructions Recorded Confirmed Type ARIPiprazole [Abilify] 5 mg PO DAILY 05/21/20 10/27/20 History Atorvastatin [Lipitor] 80 mg PO DAILY 05/21/20 10/27/20 History Cyclobenzaprine [Flexeril] 10 mg PO TID 05/21/20 10/27/20 History INSULIN ASPART (NovoLOG) [NovoLOG See Protocol SQ AC-TID 05/21/20 10/27/20 History (formulary)] Mirtazapine [Remeron] 45 mg PO HS 05/21/20 10/27/20 History QUEtiapine [SEROquel] 50 mg PO HS 05/21/20 10/27/20 History Ranolazine [Ranexa] 1,000 mg PO BID 05/21/20 10/27/20 History Sertraline [Zoloft] 50 mg PO DAILY 05/21/20 10/27/20 History hydrOXYzine pamoate [Vistaril] 25 mg PO TID 05/21/20 10/27/20 History Loperamide [Imodium] 2 mg PO QID PRN 06/08/20 10/27/20 History Ticagrelor [Brilinta] 90 mg PO BID tab 06/27/20 10/27/20 Rx Aspirin 81 mg PO DAILY chew 08/20/20 10/27/20 Rx lisinopriL [Zestril] 2.5 mg PO DAILY tab 08/20/20 10/27/20 Rx HYDROcodone/APAP 5-325MG [[place] 1 tab PO TID PRN 09/13/20 10/27/20 History 5-325] Nitroglycerin Sl Tabs [Nitrostat] 0.4 mg SL Q5M PRN 09/13/20 10/27/20 History Ezetimibe [Zetia] 10 mg PO DAILY 30 Days #30 tab 09/15/20 10/27/20 Rx Metoprolol Tartrate [Lopressor] 50 mg PO BID 60 Days #30 tab 09/15/20 10/27/20 Rx Furosemide [Lasix] 40 mg PO DAILY 09/21/20 10/27/20 History Potassium Chloride ER [K-Dur 20] 20 meq PO DAILY 09/21/20 10/27/20 History Spironolactone [Aldactone] 25 mg PO DAILY 09/21/20 10/27/20 History tiZANidine [Zanaflex] 4 mg PO TID PRN 09/21/20 10/27/20 History Isosorbide Mononitrate ER [Imdur] 30 mg PO BID tab.er.24h 10/03/20 10/27/20 Rx Ferrous Sulfate [Iron (65 MG 325 mg PO DAILY 10/18/20 10/27/20 History Elemental)] Folic Acid 1 mg PO DAILY 10/18/20 10/27/20 History Insulin Glargine,Hum.rec.anlog 22 unit SQ BID 10/18/20 10/27/20 History [Lantus Solostar] Levothyroxine Sodium [Synthroid] 200 mcg PO DAILY 10/18/20 10/27/20 History levETIRAcetam [Keppra] 500 mg PO Q12H 10/18/20 10/27/20 History Allergies Allergy/AdvReac Type Severity Reaction Status Date / Time gabapentin Allergy Severe Anaphylaxis Verified 10/27/20 17:54 shellfish derived [Crab] Allergy Intermediate Rash/Hives Verified 10/27/20 17:54 Physical Examination - Vital Signs Vital Signs: Vital Signs Temp Pulse Pulse Pulse Resp BP BP 10/29/20 07:00 62 12 133/75 10/29/20 06:30 59 L 11 L 129/72 10/29/20 06:00 61 16 145/79 10/29/20 05:30 65 16 135/86 10/29/20 05:20 62 14 135/86 10/29/20 05:10 65 23 135/86 10/29/20 05:00 78 18 126/71 10/29/20 04:51 10 L 10/29/20 04:50 60 12 126/71 10/29/20 04:40 60 8 L 126/71 10/29/20 04:30 61 60 16 10/29/20 04:20 96.7 F L 63 9 L 131/73 10/29/20 04:10 66 17 10/29/20 02:43 10 L 10/29/20 02:30 98.1 F 48 L 18 111/69 10/28/20 20:03 97.4 F L 60 16 138/83 10/28/20 14:43 97.7 F 61 16 124/80 10/28/20 08:38 97.4 F L 59 L 12 BP Pulse Ox 10/29/20 07:00 99 10/29/20 06:30 99 10/29/20 06:00 98 10/29/20 05:30 98 10/29/20 05:20 98 10/29/20 05:10 98 10/29/20 05:00 99 10/29/20 04:51 10/29/20 04:50 98 10/29/20 04:40 99 10/29/20 04:30 98 10/29/20 04:20 99 10/29/20 04:10 99 10/29/20 02:43 10/29/20 02:30 96 10/28/20 20:03 98 10/28/20 14:43 99 10/28/20 08:38 97/57 100 Intake and Output 10/28/20 10/29/20 10/29/20 22:59 06:59 14:59 Output Total 1460 300 Balance -1460 -300 Output: Urine 1460 300 Other: # Voids 2 0 1 GENERAL: The patient is lying in bed and is not in acute distress. CHEST: The heart rate is regular rate rhythm. No murmurs to auscultation. No carotid bruit bilaterally. LUNG: Clear to auscultation bilaterally no wheezing noted throughout. Not labored breathing. ABDOMEN/GI: Bowel sounds present in all 4 quadrants. No tenderness to palpation throughout. NEUROLOGICAL: Higher mental function: The patient is awake, alert, oriented to self. Also oriented to place and time with options. Is slow to responds. Patient is following commands. Had hard time repeating sentences. Seems broca aphasia. No neglect. Cranial nerves: The pupils are round, equal and reactive to light and accomm odation. Visual coleman are full to confrontation throughout. Extraocular movement is intact no nystagmus is noted. Facial sensation is decrease over the left side (she said it was new). The facial strength is normal throughout. Hearing is mildly decreased bilaterally to hand rub. Tongue is midline and moved [id number] without any difficulty. No dysarthria is noted. Shoulder shrug is normal bilaterally. Motor: Gait is normal. The strength is 5-/5 over the left upper extremity but seems (component of effort related). Otherwise 5 over 5 throughout. Normal tone and bulk. Cerebellum: Normal finger to nose bilaterally. Sensation: Sensation is decreased over the left upper and lower extremity (new per patient). Reflexes (right/left): 2+ throughout. Plantars are downgoing bilaterally. Results [place] virus PCR is nondetected. - Laboratory Findings CBC and BMP: 10/29/20 04:33 10/29/20 04:33 Abnormal Lab Findings: Abnormal Labs 10/27/20 10/27/20 10/27/20 12:00 12:00 15:07 Lymphocytes # APTT 21.1 L Sodium 134 L Carbon Dioxide 19 L Glucose 578 H* POC Glucose (mg/dL) 340 H Plasma Lactic Acid Cord[place] Calcium 10/27/20 10/27/20 10/28/20 17:05 20:34 10:23 Lymphocytes # APTT Sodium Carbon Dioxide Glucose POC Glucose (mg/dL) 257 H 156 H 65 L Plasma Lactic Acid Cordell Calcium 10/28/20 10/28/20 10/28/20 10:41 13:05 17:16 Lymphocytes # APTT Sodium Carbon Dioxide Glucose POC Glucose (mg/dL) 65 L 145 H 175 H Plasma Lactic Acid Cordell Calcium 10/29/20 10/29/20 10/29/20 04:33 04:33 04:33 Lymphocytes # 0.9 L APTT Sodium Carbon Dioxide 21 L Glucose POC Glucose (mg/dL) Plasma Lactic Acid [place] 2.4 H* Calcium 8.3 L Assessment and Plan Assessment: Reported Aphasia and reported right sided weakness (on my examination broca aphasia and left sided numbness) Is concerning of acute ischemic stroke Altered mental status due to encephalopathy due to medication effect (narcotic/opiates) History of stroke TIA multiple times in the past History of seizure Presentation of Abdominal pain discomforts with possible colitis History of Multiple Sclerosis Diabetes mellitus Hyperlipidemia Hypertension History of coronary artery disease status post stenting and CABG Plan: On [place] 5/325 one tablet 3 times a day when necessary, Dilaudid 0.5 mg every 3 hours when necessary, Dilaudid 1 mg every 3 hours when necessary. Recommend to avoid as much as possible with Opiates and Narcotic that will affect patient mentation and actual neurological exam. Will defer that to the primary team. The patient is on aspirin 81 mg, Brilinta 90 mg 1 tablet twice a day, and Lipitor 80mg daily (home medications). She is on Keppra 500 mg every 12 hours for seizure (home medication). Ordered MRI of the brain to rule out stroke. Ordered CTA head and neck, 2D echo, lipid panel and TSH level. Neuro-checks every 4 hours and placed the patient on continous tele-monitoring. I ordered PT, OT and [facility]ER consult Will defer the rest of medical management to the primary team. The plan dis discussed with the patient's nurse. Thank you for the consult. Trung Caruso MD Neuro-Hospitalist Time with Patient: Greater than 30
[2020-10-29 09:33] LABS: Glucose,Whole Blood 93 mg/dL (75-99)
[2020-10-29] MEDS: METOPROLOL TARTRATE 50 MG TAB PO SCH ×2 (10:13→20:58)
[2020-10-29] MEDS: SPIRONOLACTONE 25 MG TAB PO SCH (10:13)
[2020-10-29] MEDS: POTASSIUM CHLORIDE ER 20 MEQ TAB.ER PO SCH (10:13)
[2020-10-29] MEDS: HYDROcodone/APAP 5-325MG 1 EACH TAB PO PRN ×2 (10:13→22:40)
[2020-10-29] MEDS: PANTOPRAZOLE 40 MG TABLET PO SCH (10:13)
[2020-10-29] MEDS: FOLIC ACID 1 MG TAB PO SCH (10:14)
[2020-10-29] MEDS: FERROUS SULFATE 325 MG TAB PO SCH (10:14)
[2020-10-29] MEDS: LEVOTHYROXINE 100 MCG TAB PO SCH (10:14)
[2020-10-29] MEDS: ISOSORBIDE MONONITRATE ER 30 MG TAB.ER.24H PO SCH ×2 (10:20→20:58)
[2020-10-29] MEDS: FUROSEMIDE 40 MG TAB PO SCH (10:20)
[2020-10-29] MEDS: ASPIRIN 81 MG PO SCH (10:20)
[2020-10-29] MEDS: TICAGRELOR 90 MG TAB PO SCH ×2 (10:20→20:58)
[2020-10-29] MEDS: levETIRAcetam 500 MG TAB PO SCH ×2 (10:20→20:58)
[2020-10-29] MEDS: EZETIMIBE 10 MG TAB PO SCH (10:21)
[2020-10-29] MEDS: ATORVASTATIN 80 MG TAB PO SCH (10:21)
--- NOTE | 2020-10-29 10:25 | P.CNPUL ---
History of Present Illness Consult date: 10/29/20 Reason for consult: other Chief complaint: Altered mental status, aphasia, rule out CVA History of present illness: 55-year-old white female patient of Dr. 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 She was being treated for possibility of colitis and was on IV Unasyn. During the hospital stay the patient is on her home dose Kipling 5/325 3 times a day and Dilaudid 0.5 mg every 3 hours for breakthrough pain, rapid response team and code stroke was called at around 3:00 in the morning on when the patient was found to have acute change in her mental status, and patient was very sleepy, breathing slowly, she was given Narcan and she was very confused, her speech was incoherent, and patient was seen the examiner away with her left arm. Last reported well time was 1-1/2 hours prior to that incident, brain CT showed. Ventricular hypodensities, likely chronic microvascular ischemic changes, old tiny lacunar infarcts but no acute hemorrhage, hydrocephalus or mass effect. Telemedicine neurologist did not recommend TPA, coarse level was 90. Is normal, CBC today shows white blood cell count of 8.4, hemoglobin of 12.9, lymphocyte count is 0.9, electrolytes and renal profile are essentially unremarkable, lactic acid was 2.4, or infection, left he's are within normal limits. She remains on IV fluids with 0.9 and sating at a rate of 130 ML per hour, patient remains on Brillinta and ASA at 81 mg per hour, she is on Zetia, and atorvastatin 80 mg daily, she is on Keppra 500 mg every 12 hours, and there is no reported seizure activity. This morning her mentation has much improved, she is alert, and oriented to person and place, she did not know the month, but she correctly name the year and president. She is following commands, she is moving all 4 extremities, neurologic exam is within normal limits, she has slight numbness in the left side of her face, lisinopril neurologic exam is normal, no difficulty with speech and this seems to have much improved, she was evaluated by neurology in the intensive care unit and MRI is pending for today, otherwise there has been no worsening or recurring of her neurologic symptoms and she will be transferred out of the intensive care unit to the stepdown unit. Review of Systems All systems: negative Constitutional: Denies chills, Denies fever Eyes: denies blurred vision, denies pain Ears, nose, mouth and throat: Denies headache, Denies sore throat Cardiovascular: Denies chest pain, Denies shortness of breath Respiratory: Reports dyspnea, Denies cough Gastrointestinal: Denies abdominal pain, Denies diarrhea, Denies nausea, Denies vomiting Genitourinary: Denies dysuria, Denies hematuria Musculoskeletal: Denies myalgias Integumentary: Denies pruritus, Denies rash Neurological: Reports change in mentation, Reports change in speech, Denies numbness, Denies weakness Psychiatric: Denies anxiety, Denies depression Endocrine: Denies fatigue, Denies weight change Past Medical History Past Medical History: Coronary Artery Disease (CAD), Chest Pain / Angina, COPD, CVA/TIA, Diabetes Mellitus, GI Bleed, Hyperlipidemia, Hypertension, Myocardial Infarction (NC), Musculoskeletal Disorder, Pneumonia, Thyroid Disorder Additional Past Medical History / Comment(s): Multiple Sclerosis, brain bleeds ,cva x4 last one 2016. 2 strokes at age 48. Diverticulitis. Ambulates with a walker. Last Myocardial Infarction Date:: 2015 History of Any Multi-Drug Resistant Organisms: ESBL Date of last positivie culture/infection: 08/27/20 MDRO Source:: ESBL URINE Past Surgical History: Appendectomy, Bladder Surgery, Cholecystectomy, Coronary Bypass/CABG, Heart Catheterization, Heart Catheterization With Stent, Hysterectomy Additional Past Surgical History / Comment(s): CABG in 2013, Mitral valve on 2017, Heart Stent x thirty (30), bilateral leg stents Past Anesthesia/Blood Transfusion Reactions: No Reported Reaction Date of Last Stent Placement:: 06/25/20 Past Psychological History: Anxiety, Bipolar, Depression Smoking Status: Current every day smoker Past Alcohol Use History: None Reported Past Drug Use History: None Reported - Past Family History Father Family Medical History: Coronary Artery Disease (CAD) Additional Family Medical History / Comment(s): heart disease Mother Family Medical History: Cancer Additional Family Medical History / Comment(s): Lung cancer Medications and Allergies Home Medications Medication Instructions Recorded Confirmed Type ARIPiprazole [Abilify] 5 mg PO DAILY 05/21/20 10/27/20 History Atorvastatin [Lipitor] 80 mg PO DAILY 05/21/20 10/27/20 History Cyclobenzaprine [Flexeril] 10 mg PO TID 05/21/20 10/27/20 History INSULIN ASPART (NovoLOG) [NovoLOG See Protocol SQ AC-TID 05/21/20 10/27/20 History (formulary)] Mirtazapine [Remeron] 45 mg PO HS 05/21/20 10/27/20 History QUEtiapine [SEROquel] 50 mg PO HS 05/21/20 10/27/20 History Ranolazine [Ranexa] 1,000 mg PO BID 05/21/20 10/27/20 History Sertraline [Zoloft] 50 mg PO DAILY 05/21/20 10/27/20 History hydrOXYzine pamoate [Vistaril] 25 mg PO TID 05/21/20 10/27/20 History Loperamide [Imodium] 2 mg PO QID PRN 06/08/20 10/27/20 History Ticagrelor [Brilinta] 90 mg PO BID tab 06/27/20 10/27/20 Rx Aspirin 81 mg PO DAILY chew 08/20/20 10/27/20 Rx lisinopriL [Zestril] 2.5 mg PO DAILY tab 08/20/20 10/27/20 Rx HYDROcodone/APAP 5-325MG [Kipling 1 tab PO TID PRN 09/13/20 10/27/20 History 5-325] Nitroglycerin Sl Tabs [Nitrostat] 0.4 mg SL Q5M PRN 09/13/20 10/27/20 History Ezetimibe [Zetia] 10 mg PO DAILY 30 Days #30 tab 09/15/20 10/27/20 Rx Metoprolol Tartrate [Lopressor] 50 mg PO BID 60 Days #30 tab 09/15/20 10/27/20 Rx Furosemide [Lasix] 40 mg PO DAILY 09/21/20 10/27/20 History Potassium Chloride ER [K-Dur 20] 20 meq PO DAILY 09/21/20 10/27/20 History Spironolactone [Aldactone] 25 mg PO DAILY 09/21/20 10/27/20 History tiZANidine [Zanaflex] 4 mg PO TID PRN 09/21/20 10/27/20 History Isosorbide Mononitrate ER [Imdur] 30 mg PO BID tab.er.24h 10/03/20 10/27/20 Rx Ferrous Sulfate [Iron (65 MG 325 mg PO DAILY 10/18/20 10/27/20 History Elemental)] Folic Acid 1 mg PO DAILY 10/18/20 10/27/20 History Insulin Glargine,Hum.rec.anlog 22 unit SQ BID 10/18/20 10/27/20 History [Lantus Solostar] Levothyroxine Sodium [Synthroid] 200 mcg PO DAILY 10/18/20 10/27/20 History levETIRAcetam [Keppra] 500 mg PO Q12H 10/18/20 10/27/20 History Allergies Allergy/AdvReac Type Severity Reaction Status Date / Time gabapentin Allergy Severe Anaphylaxis Verified 10/27/20 17:54 shellfish derived [Crab] Allergy Intermediate Rash/Hives Verified 10/27/20 17:54 Physical Exam Vitals: Vital Signs Temp Pulse Pulse Pulse Resp BP BP 10/29/20 07:00 62 12 133/75 10/29/20 06:30 59 L 11 L 129/72 10/29/20 06:00 61 16 145/79 10/29/20 05:30 65 16 135/86 10/29/20 05:20 62 14 135/86 10/29/20 05:10 65 23 135/86 10/29/20 05:00 78 18 126/71 10/29/20 04:51 10 L 10/29/20 04:50 60 12 126/71 10/29/20 04:40 60 8 L 126/71 10/29/20 04:30 61 60 16 10/29/20 04:20 96.7 F L 63 9 L 131/73 10/29/20 04:10 66 17 10/29/20 02:43 10 L 10/29/20 02:30 98.1 F 48 L 18 111/69 10/28/20 20:03 97.4 F L 60 16 138/83 10/28/20 14:43 97.7 F 61 16 124/80 Pulse Ox 10/29/20 07:00 99 10/29/20 06:30 99 10/29/20 06:00 98 10/29/20 05:30 98 10/29/20 05:20 98 10/29/20 05:10 98 10/29/20 05:00 99 10/29/20 04:51 10/29/20 04:50 98 10/29/20 04:40 99 10/29/20 04:30 98 10/29/20 04:20 99 10/29/20 04:10 99 10/29/20 02:43 10/29/20 02:30 96 10/28/20 20:03 98 10/28/20 14:43 99 Intake and Output 10/28/20 10/29/20 10/29/20 22:59 06:59 14:59 Output Total 1460 300 Balance -1460 -300 Output: Urine 1460 300 Other: # Voids 2 0 1 GENERAL EXAM: Alert, pleasant, 55-year-old white female, on room air, with a pulse ox of 99%, oriented 3 except for the month, comfortable in no apparent distress. HEAD: Normocephalic/atraumatic. EYES: Normal reaction of pupils, equal size. Conjunctiva pink, sclera white. NOSE: Clear with pink turbinates. THROAT: No erythema or exudates. NECK: No masses, no JVD, no thyroid enlargement, no adenopathy. CHEST: No chest wall deformity. Symmetrical expansion. LUNGS: Equal air entry with no crackles, wheeze, rhonchi or dullness. CVS: Regular rate and rhythm, normal S1 and S2, no gallops, no murmurs, no rubs ABDOMEN: Soft, and patient reports some left lower quadrant discomfort with palpation, but there is no guarding, no rigidity, No hepatosplenomegaly, normal bowel sounds, no guarding or rigidity. EXTREMITIES: No clubbing, no edema, no cyanosis, 2+ pulses and upper and lower extremities. MUSCULOSKELETAL: Muscle strength and tone normal. SPINE: No scoliosis or deformity SKIN: No rashes CENTRAL NERVOUS SYSTEM: Alert and oriented -3. No focal deficits, tone is normal in all 4 extremities. Reports slight tingling and numbness in the left side of her face, otherwise neurologic exam is negative PSYCHIATRIC: Alert and oriented -3. Appropriate affect. Intact judgment and insight. Results - Laboratory Findings CBC and BMP: 10/29/20 04:33 10/29/20 04:33 PT/INR, D-dimer PT 9.8 sec (9.0-12.0) 10/27/20 12:00 INR 0.9 (<1.2) 10/27/20 12:00 Abnormal lab findings: Abnormal Labs 10/27/20 10/27/20 10/27/20 12:00 12:00 15:07 Lymphocytes # APTT 21.1 L Sodium 134 L Carbon Dioxide 19 L Glucose 578 H* POC Glucose (mg/dL) 340 H Plasma Lactic Acid Cordell Calcium 10/27/20 10/27/20 10/28/20 17:05 20:34 10:23 Lymphocytes # APTT Sodium Carbon Dioxide Glucose POC Glucose (mg/dL) 257 H 156 H 65 L Plasma Lactic Acid Cordell Calcium 10/28/20 10/28/20 10/28/20 10:41 13:05 17:16 Lymphocytes # APTT Sodium Carbon Dioxide Glucose POC Glucose (mg/dL) 65 L 145 H 175 H Plasma Lactic Acid Cordell Calcium 10/29/20 10/29/20 10/29/20 04:33 04:33 04:33 Lymphocytes # 0.9 L APTT Sodium Carbon Dioxide 21 L Glucose POC Glucose (mg/dL) Plasma Lactic Acid Cordell 2.4 H* Calcium 8.3 L - Diagnostic Findings Chest x-ray: report reviewed, image reviewed Additional studies: Results the brain CT, CT of the abdomen and pelvis, and venous Doppler the left leg was reviewed Assessment and Plan Plan: Assessment: #1. Symptoms of aphasia, and altered mental status, and left-sided facial numbness, rule out possibility of acute ischemic stroke, was not a candidate for TPA, symptoms are improving on today's exam, neurology swallowing #2. Altered mental status slowly related to narcotics, improving #3. Acute abdominal pain in the left lower quadrant, CT of the abdomen and pelvis showed thickening of the right colon in the transverse colon consistent with colitis #4. History multiple CVA/TIA in the past #5. History of multiple sclerosis #6. History of seizure disorder on Keppra 500 mg twice daily #7. Coronary artery disease with previous stenting and bypass grafting #8. History of mitral valve repair #9. Hypertension #10. Hyperlipidemia #11. The basement is type II #12. History of smoking #13. Chronic pain Plan: Neurological status has improved, neurology is following, MRI of the brain is pending for today, 2-D echocardiogram, lipid panel and TSH, continue neuro checks, hemodynamically stable, blood pressure is adequately controlled, patient is in sinus mechanism, we will discontinue the IV Dilaudid, continue with Kipling for abdominal pain, continue with antibiotics, no recurrence of worsening of neurological symptoms, we'll transfer the patient to selective care unit I performed a history & physical examination of the patient and discussed their management with my nurse practitioner, Yarely Sewell. I reviewed the nurse practitioner's note and agree with the documented findings and plan of care. Lung sounds are positive for diminished wheezes throughout the lung coleman. The findings and the impression was discussed with the patient. I attest to the documentation by the nurse practitioner. Time with Patient: Greater than 30
--- NOTE | 2020-10-29 10:33 | P.PN ---
Subjective Progress Note Date: 10/29/20 Aminta Sheikh, is a 55-year-old female who presented to [facility] emergency room, with a chief complaint of abdominal pain that started on the day of admission in the morning and continued to worsen gradually, her abdominal pain was radiating toward her left lower extremity, patient was also complaining of nausea but no vomiting no diarrhea or constipation she denies any blood in her stools she denies any urinary symptoms. She was evaluated in the emergency room, vital examination on presentation revealed a temperature of 99.3 pulse 90 respiration 18 blood pressure 147/86 pulse ox 98% on room air. White blood count was 6.8 hemoglobin 12.9 platelet count 237 sodium 134 potassium 4.2 chloride 104 CO2 19 BUN 15 creatinine 0.73 glucose was elevated at 578 AST and ALT were normal amylase and lipase were normal coronavirus PCR was negative. Patient underwent a venous Doppler of the left lower extremity in emergency room that was negative for DVT, she also underwent a computed tomography scan of the abdomen and pelvis with contrast, that revealed evidence of multifocal and complicated proximal colitis, she was started on IV antibiotic Unasyn in the emergency room and was admitted to medical floor, gastroenterology consultation was requested. On 10/29/2020 patient is alert and oriented 3. Patient was transferred to the intensive care unit throughout the night due to altered mental status changes and concerns of possible stroke. According to nurse symptoms do seem improved. Speech does appear slightly delayed. Head CT was performed and was reported as periventricular hypodensity likely chronic microvascular ischemia change more than expected in this age group. Neurology services are following MRI of the head has been ordered along with CTA of the neck. Patient remains on Unasyn for colitis. Will consult infectious disease. Patient denies any chest pain or shortness of breath. Patient denies any nausea or vomiting at this time. Patient denies any urinary burning or frequency Objective - Vital Signs Vital signs: Vital Signs Temp 96.7 F L 10/29/20 04:20 Pulse 62 10/29/20 07:00 Resp 12 10/29/20 07:00 BP 133/75 10/29/20 07:00 Pulse Ox 99 10/29/20 07:00 Intake & Output 10/28/20 10/29/20 10/29/20 18:59 06:59 18:59 Intake Total 0 Output Total 1100 660 600 Balance -1100 -660 -600 Intake: IV 0 Sodium Chloride 0.9% 1, 0 000 ml @ 130 mls/hr IV . Q7H42M [facility] Rx#:[id number] Output: Urine 1100 660 600 Other: # Voids 1 0 1 - Exam In general patient is alert and oriented 3 in no apparent distress HEENT head normocephalic and atraumatic Neck is supple no JVD no goiter no lymphadenopathy Chest exam reveals a few scattered rhonchi bilaterally no wheezing Cardiac exam reveals regular heart sounds S1 and S2 no gallops no murmurs Abdomen is soft with mild diffuse tenderness no organomegaly with normal bowel sounds Extremity exam reveals no edema no cyanosis or clubbing Neurological examination reveals no gross focal deficit - Labs CBC & Chem 7: 10/29/20 04:33 10/29/20 04:33 Labs: Abnormal Lab Results - Last 24 Hours (Table) 10/28/20 10/28/20 10/28/20 Range/Units 10:23 10:41 13:05 Lymphocytes # (1.0-4.8) k/uL Carbon Dioxide (22-30) mmol/L POC Glucose (mg/dL) 65 L 65 L 145 H (75-99) mg/dL Plasma Lactic Acid Cordell (0.7-2.0) mmol/L Calcium (8.4-10.2) mg/dL 10/28/20 10/29/20 10/29/20 Range/Units 17:16 04:33 04:33 Lymphocytes # 0.9 L (1.0-4.8) k/uL Carbon Dioxide 21 L (22-30) mmol/L POC Glucose (mg/dL) 175 H (75-99) mg/dL Plasma Lactic Acid Cordell (0.7-2.0) mmol/L Calcium 8.3 L (8.4-10.2) mg/dL 10/29/20 Range/Units 04:33 Lymphocytes # (1.0-4.8) k/uL Carbon Dioxide (22-30) mmol/L POC Glucose (mg/dL) (75-99) mg/dL Plasma Lactic Acid Cordell 2.4 H* (0.7-2.0) mmol/L Calcium (8.4-10.2) mg/dL Assessment and Plan Plan: 1. Abdominal pain with computed tomography scan of the abdomen showing evidence of colitis, patient was started on IV antibiotic in the emergency room and was admitted to medical floor gastroenterology consultation was requested. Infectious disease service is consulted 2. History of coronary artery disease with multiple angioplasty and stent placement and history of coronary artery bypass graft surgery 3. Underlying history of hypertension 4. Underlying history of hyperlipidemia 5. Underlying history of insulin-dependent diabetes mellitus 6. Underlying history of depression , bipolar disorder and anxiety disorder 7. Underlying history of hypothyroidism 8. Underlying history of tobacco abuse, patient was counseled in length in regard to smoking cessation counseling more than 5 minutes today. 9. Underlying history of seizure disorder maintained on Keppra 10. aphasia and altered mental status with left-sided facial numbness possibly due to acute ischemic stroke. Symptoms are improving. Neurology services are following. Plans for MRI and CTA Patient currently in the intensive care unit GI, critical care, neurology and infectious disease consulted Patient remains on IV Unasyn MRI of the brain ordered CTA of the head ordered 2-D echo ordered
--- NOTE | 2020-10-29 11:02 | ECHOF ---
Referral Reason:stroke MEASUREMENTS -------- HEIGHT: 162.6 cm WEIGHT: 76.2 kg BP: IVSd: 1.4 cm (0.6 - 1.1) LVIDd: 3.1 cm (3.9 - 5.3) LVPWd: 1.3 cm (0.6 - 1.1) IVSs: 1.6 cm LVIDs: 2.1 cm LVPWs: 1.3 cm MV E Russ: 1.13 m/s MV DecT: 319 ms MV A Russ: 1.20 m/s MV E/A Ratio: 0.94 RAP: 5.00 mmHg RVSP: 19.40 mmHg FINDINGS -------- This was a technically difficult study with suboptimal views. The left ventricular size is normal. There is moderate concentric left ventricular hypertrophy. O verall left ventricular systolic function is normal with, an EF between 55 - 60 %. The right ventricle is normal in size. The left atrial size is normal. The right atrial size is normal. Lumason used The aortic valve is trileaflet and appears structurally normal. The mitral valve leaflets are moderately thickened. Moderate mitral annular calcification present. There is trace mitral regurgitation. The peak and mean MV gradients are 11.21mmHg 5.85mmHg as me asured by doppler. 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 The tricuspid valve appears structurally normal. Mild tricuspid regurgitation present. Right vent ricular systolic pressure is normal at < 35 mmHg. There is no pulmonic regurgitation present. The aortic root size is normal. IVC Not well visulized. There is no pericardial effusion. CONCLUSIONS -------- 1. The left ventricular size is normal. 2. There is moderate concentric left ventricular hypertrophy. 3. Overall left ventricular systolic function is normal with, an EF between 55 - 60 %. 4. The mitral valve leaflets are moderately thickened. 5. Moderate mitral annular calcification present. 6. There is trace mitral regurgitation. 7. The peak and mean MV gradients are 11.21mmHg 5.85mmHg as measured by doppler. 8. 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 9. Mild tricuspid regurgitation present. 10. consider NADIR for better evalaution of mitral valve 11. suboptimal study to answer the question p osed OLAP DEVELOPER: Maria R Valverde RDCS
[2020-10-29 11:08] LABS: Cholesterol 203 mg/dL (<200); HDL Cholesterol 67 mg/dL (40-60); LDL Cholesterol,Calculated 91 mg/dL (0-99); Triglycerides 227 mg/dL (<150)
[2020-10-29] MEDS: SERTRALINE 50 MG TAB PO SCH (11:10)
[2020-10-29] MEDS: hydrOXYzine pamoate 25 MG CAP PO SCH ×3 (11:11→21:29)
[2020-10-29] MEDS: RANOLAZINE 500 MG TAB.ER.12H PO SCH ×2 (11:11→20:58)
[2020-10-29] MEDS: ARIPiprazole 5 MG TAB PO SCH (11:11)
[2020-10-29] MEDS: INSULIN DETEMIR (LEVEMIR) 100 UNIT/ML SYR SQ SCH ×2 (11:37→20:45)
[2020-10-29 12:31] LABS: Glucose,Whole Blood 76 mg/dL (75-99)
--- NOTE | 2020-10-29 13:39 | P.PN ---
Subjective Progress Note Date: 10/29/20 Principal diagnosis: Colitis This 55-year-old pleasant white female who came to the emergency room with severe lower abdominal pain started 1-2 days ago. She denies any diarrhea, blood per rectum or blood in the stool. She actually states that she's had constipation. She's had nausea no emesis. She was found to have nothing of the right colon in the transverse colon consistent with colitis on the computed tomography scan. She is been started on broad-spectrum antibiotics. Last night the A-team was called as the patient had an episode of confusion, altered mental status, and weakness. The patient was transferred to the ICU. Was believed that she may have had a reaction due to her narcotics. She was given Narcan yesterday evening. Today she states the pain is about the same, still has some nausea but no emesis. On a clear liquid diet. Objective - Vital Signs Vital signs: Vital Signs Temp 96.7 F L 10/29/20 04:20 Pulse 65 10/29/20 10:00 Resp 7 L 10/29/20 10:00 BP 142/77 10/29/20 10:00 Pulse Ox 97 10/29/20 10:00 Intake & Output 10/28/20 10/29/20 10/29/20 18:59 06:59 18:59 Intake Total 0 Output Total 1100 660 600 Balance -1100 -660 -600 Intake: IV 0 Sodium Chloride 0.9% 1, 0 000 ml @ 130 mls/hr IV . Q7H42M [facility] Rx#:[id number] Output: Urine 1100 660 600 Other: # Voids 1 0 1 - Exam General appearance: The patient is alert, oriented, appears in no acute distress. HET: Head is normocephalic and atraumatic. Conjunctiva pink. Sclera anicteric. Neck: Supple without lymphadenopathy. Abdomen: Soft, left lower abdominal tenderness, nondistended with bowel sounds. No guarding or rigidity. Extremities: Normal skin color and turgor. No pedal edema Skin: No rashes, no jaundice Neurological: No focal deficits. Alert and oriented 3. - Labs CBC & Chem 7: 11/01/20 05:53 10/31/20 05:19 Labs: Abnormal Lab Results - Last 24 Hours (Table) 10/28/20 10/28/20 10/29/20 Range/Units 13:05 17:16 04:33 Lymphocytes # 0.9 L (1.0-4.8) k/uL Carbon Dioxide (22-30) mmol/L POC Glucose (mg/dL) 145 H 175 H (75-99) mg/dL Plasma Lactic Acid Cordell (0.7-2.0) mmol/L Calcium (8.4-10.2) mg/dL Triglycerides (<150) mg/dL Cholesterol (<200) mg/dL HDL Cholesterol (40-60) mg/dL TSH (0.465-4.680) mIU/L 10/29/20 10/29/20 10/29/20 Range/Units 04:33 04:33 04:33 Lymphocytes # (1.0-4.8) k/uL Carbon Dioxide 21 L (22-30) mmol/L POC Glucose (mg/dL) (75-99) mg/dL Plasma Lactic Acid Cordell 2.4 H* (0.7-2.0) mmol/L Calcium 8.3 L (8.4-10.2) mg/dL Triglycerides 227 H (<150) mg/dL Cholesterol 203 H (<200) mg/dL HDL Cholesterol 67 H (40-60) mg/dL TSH >100.000 H (0.465-4.680) mIU/L Assessment and Plan (1) Abdominal pain Narrative/Plan: This is a 55-year-old lady who presented with acute onset of severe lower abdominal pain that started 2 days ago and was associated with intense nausea but no emesis. Computed tomography scan showed thickening of the right colon as well as transverse colon consistent with acute colitis. Surprisingly patient does not have any diarrhea and in fact somewhat constipated. Her last colonoscopy by Dr. Garcia was in July 2020 which was unremarkable other than sigmoid diverticulosis and small internal hemorrhoids. At this time possibility of acute infection colitis needs to be considered. Doubt ischemic colitis, but this cannot entirely be excluded. At this time there are no plans for any endoscopic intervention. Continue IV antibiotics. Current Visit: No Status: Acute Code(s): R10.9 - UNSPECIFIED ABDOMINAL PAIN SNOMED Code(s): 42006650 (2) Colitis Current Visit: Yes Status: Acute Code(s): K52.9 - NONINFECTIVE GASTROENTERITIS AND COLITIS, UNSPECIFIED SNOMED Code(s): 83630546 Plan: 1. Continue symptomatic and supportive care 2. Continue clear liquid diet 3. Continue broad-spectrum antibiotics 4. Monitor labs closely 5. No plans for any endoscopic intervention at this time Thank you for this consultation, we will continue to follow. Dr. David Fuentes I agree with the dictator's note, documented as a scribe by Maria Alejandra Manzanares.
[2020-10-29] MEDS ORDERED: LORazepam 2 MG/ML INJ ONE (13:43)
[2020-10-29] MEDS ORDERED: LORazepam 2 MG/ML INJ IV PRN (13:56)
[2020-10-29] MEDS ORDERED: LIDOCAINE 1% INJ 10MG/ML (20 ML MDV) ONE (14:42)
[2020-10-29] MEDS ORDERED: LIDOCAINE 1% INJ 10MG/ML (20 ML MDV) SQ ONE (15:21)
--- NOTE | 2020-10-29 15:57 | XR ---
EXAMINATION TYPE: XR chest 1V confirm line [facility] DATE OF EXAM: 10/29/2020 COMPARISON: 10/25/2020 HISTORY: 55-year-old female PICC line placement, confirmation TECHNIQUE: Single frontal view of the chest is obtained. FINDINGS: Median sternotomy wires. Prosthetic cardiac valve. Multiple coronary artery stents. Loop recorder dev ice projects over the upper left heart margin. Right PICC tip in the upper right atrium. Heart border line in size. No consolidation or pleural effusion. Cholecystectomy clips. IMPRESSION: Right PICC tip in the upper right atrium. No acute process seen.
[2020-10-29 16:09] LABS: Glucose,Whole Blood 76 mg/dL (75-99)
--- NOTE | 2020-10-29 18:19 | CT ---
EXAMINATION TYPE: CT angio head neck DATE OF EXAM: 10/29/2020 COMPARISON: None HISTORY: Aphasia. CT DLP: 443.7 mGycm Automated exposure control for dose reduction was used. CONTRAST: Performed with IV Contrast, patient injected with 65 mL of Isovue 370. Images were obtained from the aortic arch to the vertex of the brain with IV contrast. There are 3-D post processed images. FINDINGS: There is normal branching pattern of the great vessels on the aortic arch. There is bilateral arteria l flow in the subclavian arteries. There is arterial flow in the common internal and external carotid arteries bilaterally. There is some plaque formation on the posterior wall of the left carotid arter y bifurcation. There is lumen narrowing 25%. I see no significant stenosis of the internal carotid ar teries. There is no evidence of carotid dissection. There is arterial flow in the right vertebral artery. There is a very tiny left vertebral artery. The basilar artery fills mostly from the right side. Proximal left vertebral artery is not well seen. Th ere is possible complete occlusion of the proximal left vertebral artery and retrograde filling from the right side. Right vertebral artery appears widely patent. There is arterial flow in the anterior middle and posterior cerebral arteries bilaterally. I see no e vidence of hemodynamic stenosis. There is normal opacification of the venous sinuses. There is no mas s effect. There is no sign of intracranial aneurysm or neovascularity. There is large left side poste rior communicating artery. Left posterior cerebral artery appears to fill mostly through the left pos terior communicating artery. IMPRESSION: No significant angiographic abnormality within the brain. Very small left vertebral artery without evidence of flow proximally that could be hypoplasia or occl usion. There is possible retrograde filling of the distal left vertebral artery. No significant angiographic abnormality of the carotid arteries.
--- NOTE | 2020-10-29 19:11 | US ---
EXAMINATION TYPE: US carotid duplex BILAT DATE OF EXAM: 10/29/2020 COMPARISON: CTA CLINICAL HISTORY: stroke. Stroke per order. Tingling in hands, dizziness. Current smoker. Hypertensio n, hyperlipidemia. EXAM MEASUREMENTS: RIGHT: Peak Systolic Velocity (PSV) cm/sec ----- Right CCA: 81.4 ----- Right ICA: 82.3 ----- Right ECA: 205.2 ICA/CCA ratio: 1.0 RIGHT: End Diastole cm/sec ----- Right CCA: 9.0 ----- Right ICA: 29.9 ----- Right ECA: 0.0 LEFT: Peak Systolic Velocity (PSV) cm/sec ----- Left CCA: 48.6 ----- Left ICA: 100.4 ----- Left ECA: 158.3 ICA/CCA ratio: 2.1 LEFT: End Diastole cm/sec ----- Left CCA: 10.9 ----- Left ICA: 19.0 ----- Left ECA: 16.4 VERTEBRALS (direction of flow): Right Vertebral: Antegrade Left Vertebral: Not visualized at this time. Rhythm: Normal Intimal thickening seen bilaterally. Plaque seen within right and left carotid bulb, and right and le ft ECA. Left vertebral artery not visualized with color Doppler at this time. Elevated velocities wi thin bilateral ECA. IMPRESSION: There is antegrade flow in the right vertebral artery. Left vertebral artery is not seen. Plaque formation at the carotid artery bifurcations. Images and measurements suggest less than 35% st enosis in both internal carotid arteries. Criteria for Assigning % of Stenosis / Diameter reduction (Estimation based on the indirect measurements of the internal carotid artery velocities (ICA PSV). 1. Normal (no stenosis)=ICA PSV < 125 cm/s: ratio < 2.0: ICA EDV<40 cm/s. 2. Less than 50% stenosis=ICA PSV < 125 cm/s: ratio < 2.0: ICA EDV<40 cm/s. 3. 50 to 69% stenosis=ICA PSV of 125 to 230 cm/s: ration 2.0 ? 4.0: ICA EDV 40-100 cm/s. 4. Greater than 70% stenosis to near occlusion= ICA PSV > 230 cm/s: ratio > 4.0: ICA EDV > 100 cm/s. 5. Near occlusion= ICA PSV velocities may be low or undetectable: variable ratio and ICA EDV. 6. Total occlusion=unable to detect flow.
[2020-10-29 20:40] LABS: Glucose,Whole Blood 79 mg/dL (75-99)
[2020-10-29] MEDS: MIRTAZAPINE 45 MG TABLET PO SCH (20:59)
[2020-10-29] MEDS: QUEtiapine 50 MG TAB PO SCH (20:59)
[2020-10-29] MEDS: AMPICILLIN-SULBACTAM 3 GM in SODIUM CHLORIDE 0.9% 100 ML IVPB SCH (22:41)
--- NOTE | 2020-10-29 22:55 | CONS ---
CONSULTATION DATE OF SERVICE: 10/29/2020 REASON FOR CONSULTATION: Colitis. HISTORY OF PRESENT ILLNESS: The patient is a 55-year-old female who presented to the ER at [facility] yesterday for evaluation of abdominal pain. The patient's pain started on the morning of presentation to the hospital. The pain has been mostly in the left lower abdominal area. She describes the pain to be sharp which gradually increased to the point where it was 10/10 by the time she presented to the hospital. The patient did have associated nausea and vomiting. The patient denies having any diarrhea. Did have some constipation. The patient denies high-grade fever. Did have some chills. With these symptoms the patient was evaluated by the ER physician. On arrival in the ER, the patient did have a low-grade fever of 99.3. The patient has been afebrile since then. The patient did have a normal white count with no left shift. The patient did have elevated lactic acid of 2.4. Repeat is 1.4. Kidney function was normal. Liver enzymes were normal. The patient did have a CT of abdomen and pelvis completed which raises the possibility of possible colitis and some air in the bladder concerning for fistula. The patient has been admitted to the hospital. She was started on Unasyn. Infectious Disease was consulted for further management. This morning the patient did have an episode of decreased level of responsiveness, for which the patient has been transferred to the ICU for possible CVA workup. The patient at the time of my evaluation this afternoon had been afebrile. She knows that she is in the hospital. Denies having any headache. No chest pain. No shortness of breath or cough. Abdominal pain has decreased in intensity. No bowel movement. No focal weakness. REVIEW OF SYSTEMS: Positive points have been mentioned in the HPI. Rest of the systems are negative. PAST MEDICAL HISTORY: Coronary artery disease, COPD, CVA, TIA, diabetes mellitus, hyperlipidemia, hypertension, [place], pneumonia, hypothyroidism. PAST SURGICAL HISTORY: Appendectomy, back surgery, cholecystectomy, coronary artery bypass grafting, PTCA with stent, hysterectomy. SOCIAL HISTORY: Current everyday smoker. No drinking or drug use. FAMILY HISTORY: Father with history of coronary artery disease. ALLERGIES: GABAPENTIN, SHELLFISH. MEDICATIONS: The patient is currently on Unasyn The patient is on [place], Abilify, aspirin, Lipitor, Zetia, iron sulfate, folic acid, Lasix, Dilaudid, nystatin, NovoLog, Levemir, Imdur, Keppra, Synthroid, Zestril Ativan, Remeron, Narcan, Nitrostat, Zofran. PHYSICAL EXAMINATION: Blood pressure 169/73 with a pulse of 83, temperature 97.7. She is 98% on room air. General description is a middle-aged female lying in bed in no distress. HEENT: Examination shows no pallor or scleral icterus. Oral mucous membrane is dry. NECK: Trachea is central. No thyromegaly. LUNGS: Unlabored breathing. Clear to auscultation. No wheeze or crackle. HEART: S1, S2. Regular rate and rhythm. ABDOMEN: Soft. Mildly distended. No guarding or rigidity. No organomegaly. EXTREMITIES: No edema of the feet. SKIN EXAMINATION: No rash or mass palpable. Neurologically the patient is awake, alert, oriented x3. Mood and affect normal. LABS: BUN of 11, creatinine 0.89. Electrolytes have been normal. Lactic acid 2.4. Liver enzymes are normal. Hemoglobin 12.9, white count 8.4. CT report mentioned above. DIAGNOSTIC IMPRESSION AND PLAN: Patient admitted to hospital with abdominal pain with concern for colitis, question of ischemic colitis in this patient who did have a history of smoking and did have elevated lactic acid and especially with sudden onset of her symptoms. Infectious colitis less likely but not entirely excluded. However, absence of diarrhea makes it less likely. PLAN: 1. We will adjust the dose of Unasyn to 3 grams q.6 hours. IV fluid. 2. If the patient develops any diarrhea, obtain stool studies. 3. We will follow the clinical condition and further adjust medication if needed. Thank you for this consultation. Will follow this patient along with you. MMODL / IJN: [id number] / MTDD
[2020-10-30] MEDS ORDERED: AMPICILLIN-SULBACTAM 3 GM in SODIUM CHLORIDE 0.9% 50 ML IVPB SCH ×2
[2020-10-30] MEDS: LEVOTHYROXINE 100 MCG TAB PO SCH (05:40)
[2020-10-30] MEDS: AMPICILLIN-SULBACTAM 3 GM in SODIUM CHLORIDE 0.9% 100 ML IVPB SCH ×4 (05:40→23:31)
[2020-10-30 07:11] LABS: Glucose,Whole Blood 65 mg/dL (75-99)
[2020-10-30] MEDS: SODIUM CHLORIDE 0.9% 1,000 ML IV SCH ×2 (07:37→20:42)
[2020-10-30 07:38] LABS: Glucose,Whole Blood 80 mg/dL (75-99)
[2020-10-30] MEDS: INSULIN ASPART (NovoLOG) 100 UNIT/ML VIAL SQ SCH ×4 (07:41→20:41)
[2020-10-30] MEDS: INSULIN DETEMIR (LEVEMIR) 100 UNIT/ML SYR SQ SCH ×2 (07:49→20:41)
[2020-10-30] MEDS: HYDROcodone/APAP 5-325MG 1 EACH TAB PO PRN (07:57)
[2020-10-30] MEDS: FUROSEMIDE 40 MG TAB PO SCH (07:59)
[2020-10-30] MEDS: ASPIRIN 81 MG PO SCH (07:59)
[2020-10-30] MEDS: SERTRALINE 50 MG TAB PO SCH (07:59)
[2020-10-30] MEDS: FOLIC ACID 1 MG TAB PO SCH (07:59)
[2020-10-30] MEDS: SPIRONOLACTONE 25 MG TAB PO SCH (07:59)
[2020-10-30] MEDS: METOPROLOL TARTRATE 50 MG TAB PO SCH ×2 (07:59→20:42)
[2020-10-30] MEDS: FERROUS SULFATE 325 MG TAB PO SCH (07:59)
[2020-10-30] MEDS: ISOSORBIDE MONONITRATE ER 30 MG TAB.ER.24H PO SCH ×2 (08:00→20:42)
[2020-10-30] MEDS: ATORVASTATIN 80 MG TAB PO SCH (08:00)
[2020-10-30] MEDS: POTASSIUM CHLORIDE ER 20 MEQ TAB.ER PO SCH (08:00)
[2020-10-30] MEDS: PANTOPRAZOLE 40 MG TABLET PO SCH (08:00)
[2020-10-30] MEDS: hydrOXYzine pamoate 25 MG CAP PO SCH ×3 (08:01→22:03)
[2020-10-30] MEDS: ARIPiprazole 5 MG TAB PO SCH (08:03)
[2020-10-30] MEDS: EZETIMIBE 10 MG TAB PO SCH (08:03)
[2020-10-30] MEDS: RANOLAZINE 500 MG TAB.ER.12H PO SCH ×2 (08:05→20:43)
[2020-10-30] MEDS: TICAGRELOR 90 MG TAB PO SCH ×2 (09:54→22:03)
--- NOTE | 2020-10-30 10:57 | PN ---
PROGRESS NOTE DATE OF SERVICE: 10/30/2020 INTERVAL HISTORY: Patient is a 55-year-old pleasant white female admitted to hospital with severe lower abdominal pain of [address] scan showed thickening of the right colon as well as transverse colon. Because of presumed acute colitis she was started on antibiotics. Subsequently she developed altered mental status and she was transferred to the intensive care unit wherein she had CT of the head as well as CT angiogram performed. There were no significant abnormalities noted. She was transferred back to the floor yesterday. This morning, she continues to complain of left-sided abdominal pain. No nausea, no vomiting. Had 3 bowel movements. No blood in the stool. No fever, chills, night sweats. PHYSICAL EXAMINATION: GENERAL: She appears comfortable. VITAL SIGNS: Stable. Blood pressure 131/77, pulse rate 51, temperature 97.5. HEENT: Examination unremarkable. Conjunctivae are pink. Sclerae anicteric. Oral cavity no lesions. CHEST: Clear to auscultation. HEART: Regular rate and rhythm. ABDOMEN: Soft. There was mild tenderness in the left lower quadrant area and mild tenderness of the right lower quadrant area. The rest of the abdomen was benign. Bowel sounds are positive, no organomegaly. EXTREMITIES: No pedal edema. SKIN: No rashes. NEURO: She is alert and oriented x3. No focal deficits. LABS: No labs available from today. Yesterday WBC 8.4, hemoglobin 12.9, platelets normal. Basic metabolic panel was within normal limits. TSH was more than 100, free T4 was 0.70. IMPRESSION: 1. Lower abdominal pain/acute colitis noted on CT of the abdomen and pelvis on empiric antibiotics. Clinically, gradually improving. 2. Hyperglycemia. 3. Hypothyroidism. 4. History of diabetes mellitus. 5. History of hypertension and hypercholesteremia. RECOMMENDATIONS: 1. Continue with antibiotics. 2. Agree with full liquid diet for today. 3. Pain medications as needed. 4. Continue symptomatic and supportive care. 5. We will follow with you closely. Thank you for this consultation. MMROBERTOL / EDGARDON: [id number] /
[2020-10-30 11:48] LABS: Glucose,Whole Blood 117 mg/dL (75-99)
--- NOTE | 2020-10-30 12:11 | P.PN ---
Subjective Progress Note Date: 10/30/20 Aminta Sheikh, is a 55-year-old female who presented to [facility] emergency room, with a chief complaint of abdominal pain that started on the day of admission in the morning and continued to worsen gradually, her abdominal pain was radiating toward her left lower extremity, patient was also complaining of nausea but no vomiting no diarrhea or constipation she denies any blood in her stools she denies any urinary symptoms. She was evaluated in the emergency room, vital examination on presentation revealed a temperature of 99.3 pulse 90 respiration 18 blood pressure 147/86 pulse ox 98% on room air. White blood count was 6.8 hemoglobin 12.9 platelet count 237 sodium 134 potassium 4.2 chloride 104 CO2 19 BUN 15 creatinine 0.73 glucose was elevated at 578 AST and ALT were normal amylase and lipase were normal coronavirus PCR was negative. Patient underwent a venous Doppler of the left lower extremity in emergency room that was negative for DVT, she also underwent a computed tomography scan of the abdomen and pelvis with contrast, that revealed evidence of multifocal and complicated proximal colitis, she was started on IV antibiotic Unasyn in the emergency room and was admitted to medical floor, gastroenterology consultation was requested. On 10/29/2020 patient is alert and oriented 3. Patient was transferred to the intensive care unit throughout the night due to altered mental status changes and concerns of possible stroke. According to nurse symptoms do seem improved. Speech does appear slightly delayed. Head CT was performed and was reported as periventricular hypodensity likely chronic microvascular ischemia change more than expected in this age group. Neurology services are following MRI of the head has been ordered along with CTA of the neck. Patient remains on Unasyn for colitis. Will consult infectious disease. Patient denies any chest pain or shortness of breath. Patient denies any nausea or vomiting at this time. Patient denies any urinary burning or frequency On 10/30/2020 patient was seen and examined on the medical floor she is alert and oriented 3 in no apparent distress, she is still complaining of abdominal pain mostly in the left lower quadrant otherwise she denies any complaints there is no fever or chills no headache or dizziness no chest pain no shortness of breath no cough no nausea or vomiting no diarrhea no blood in stools no burning with urination no frequency or urgency and no hematuria. Objective - Vital Signs Vital signs: Vital Signs Temp 97.5 F L 04/17/21 04:38 Pulse 51 L 10/30/20 04:38 Resp 12 10/30/20 04:38 BP 131/77 10/30/20 04:38 Pulse Ox 100 10/30/20 04:38 Intake & Output 10/29/20 10/30/20 10/30/20 18:59 06:59 18:59 Intake Total 390 Output Total 1999 Balance -1610 Intake: IV 390 Sodium Chloride 0.9% 1, 390 000 ml @ 130 mls/hr IV . [id number] CAROLYN Rx#:[id number] Output: Urine 1999 Other: # Voids 1 - Exam In general patient is alert and oriented 3 in no apparent distress HEENT head normocephalic and atraumatic Neck is supple no JVD no goiter no lymphadenopathy Chest exam reveals a few scattered rhonchi bilaterally no wheezing Cardiac exam reveals regular heart sounds S1 and S2 no gallops no murmurs Abdomen is soft with mild diffuse tenderness no organomegaly with normal bowel sounds Extremity exam reveals no edema no cyanosis or clubbing Neurological examination reveals no gross focal deficit - Labs CBC & Chem 7: 10/29/20 04:33 10/29/20 04:33 Labs: Abnormal Lab Results - Last 24 Hours (Table) 10/29/20 10/30/20 Range/Units 04:33 07:09 POC Glucose (mg/dL) 65 L (75-99) mg/dL Triglycerides 227 H (<150) mg/dL Cholesterol 203 H (<200) mg/dL HDL Cholesterol 67 H (40-60) mg/dL TSH >100.000 H (0.465-4.680) mIU/L Free T4 0.70 L (0.78-2.19) ng/dL Assessment and Plan Plan: 1. Abdominal pain with computed tomography scan of the abdomen showing evidence of colitis, patient was started on IV antibiotic in the emergency room and was admitted to medical floor gastroenterology consultation was requested. Infectious disease service is consulted 2. History of coronary artery disease with multiple angioplasty and stent place ment and history of coronary artery bypass graft surgery 3. Underlying history of hypertension 4. Underlying history of hyperlipidemia 5. Underlying history of insulin-dependent diabetes mellitus 6. Underlying history of depression , bipolar disorder and anxiety disorder 7. Underlying history of hypothyroidism 8. Underlying history of tobacco abuse, patient was counseled in length in r egard to smoking cessation counseling more than 5 minutes today. 9. Underlying history of seizure disorder maintained on Keppra 10. aphasia and altered mental status with left-sided facial numbness possibly due to acute ischemic stroke. Symptoms are improving. Neurology services are following. Plans for MRI and CTA Patient currently in the intensive care unit GI, critical care, neurology and infectious disease consulted Patient remains on IV Unasyn MRI of the brain ordered CTA of the head ordered 2-D echo ordered
[2020-10-30] MEDS: levETIRAcetam 500 MG TAB PO SCH ×2 (13:16→22:02)
[2020-10-30] MEDS: HYDROcodone/APAP 10-325MG 1 EACH TAB PO PRN (14:08)
[2020-10-30 17:27] LABS: Glucose,Whole Blood 146 mg/dL (75-99)
--- NOTE | 2020-10-30 19:01 | PN ---
PROGRESS NOTE DATE OF SERVICE: 10/30/2020. REASON FOR FOLLOWUP: Colitis. INTERVAL HISTORY: The patient is afebrile. The patient is breathing comfortably and still feeling nauseated. No vomiting though. Still complaining of abdominal pain. No worsening. Did have a loose stool. Denies any chest pain, shortness of breath or cough. PHYSICAL EXAMINATION: Blood pressure 128/75, pulse of 92, temperature 98.6. She is 100% on room air. General description is a middle-aged female lying in bed in no distress. Respiratory system: Unlabored breathing, clear to auscultation anteriorly. Heart: S1, S2. Regular rate and rhythm. ABDOMEN: Soft, no tenderness. EXTREMITIES: No edema of the feet. LABS: No new labs have been obtained today. DIAGNOSTIC IMPRESSION AND PLAN: Patient admitted to the hospital with abdominal pain with evidence of colitis, question of ischemic source of infectious. Stool culture has been requested. Continue with Unasyn and will monitor clinical course closely. MMODL / IJN: [id number] /
[2020-10-30 20:39] LABS: Glucose,Whole Blood 258 mg/dL (75-99)
[2020-10-30] MEDS: QUEtiapine 50 MG TAB PO SCH (20:43)
[2020-10-30] MEDS: MIRTAZAPINE 45 MG TABLET PO SCH (22:03)
[2020-10-31] MEDS: LEVOTHYROXINE 100 MCG TAB PO SCH (05:03)
[2020-10-31] MEDS: AMPICILLIN-SULBACTAM 3 GM in SODIUM CHLORIDE 0.9% 100 ML IVPB SCH ×4 (05:03→23:23)
[2020-10-31 05:38] LABS: Basophils % (A) 1 %; Eosinophils # (A) 0.1 k/uL (0-0.7); Eosinophils % (A) 2 %; HCT 40.9 % (34.0-46.0); HGB 13.9 gm/dL (11.4-16.0); Lymphocytes # (A) 1.3 k/uL (1.0-4.8); Lymphocytes % (A) 22 %; MCH 31.2 pg (25.0-35.0); MCHC 34.1 g/dL (31.0-37.0); MCV 91.6 fL (80.0-100.0); Mean Platelet Volume 7.2; Monocytes # (A) 0.3 k/uL (0-1.0); Monocytes % (A) 5 %; Neutrophils # (A) 4.2 k/uL (1.3-7.7); Neutrophils % (A) 70 %; Platelet Count 294 k/uL (150-450); RBC 4.46 m/uL (3.80-5.40); RDW 13.8 % (11.5-15.5); WBC 6.1 k/uL (3.8-10.6)
[2020-10-31 06:02] LABS: African American GFR (CKD) 85 (>60 ml/min/1.73 sqM); Anion Gap 9 mmol/L; Blood Urea Nitrogen 6 mg/dL (7-17); Calcium 8.2 mg/dL (8.4-10.2); Carbon Dioxide 23 mmol/L (22-30); Chloride 108 mmol/L (98-107); Glucose 72 mg/dL (74-99); Non-African American GFR(CKD) 74 (>60 ml/min/1.73 sqM); Potassium 3.7 mmol/L (3.5-5.1); Sodium 140 mmol/L (137-145)
[2020-10-31 07:05] LABS: Glucose,Whole Blood 57 mg/dL (75-99)
[2020-10-31 07:30] LABS: Glucose,Whole Blood 86 mg/dL (75-99)
[2020-10-31] MEDS: INSULIN DETEMIR (LEVEMIR) 100 UNIT/ML SYR SQ SCH ×2 (07:33→21:10)
[2020-10-31] MEDS: INSULIN ASPART (NovoLOG) 100 UNIT/ML VIAL SQ SCH ×4 (07:33→21:10)
[2020-10-31] MEDS: levETIRAcetam 500 MG TAB PO SCH ×2 (09:12→21:15)
[2020-10-31] MEDS: ATORVASTATIN 80 MG TAB PO SCH (09:12)
[2020-10-31] MEDS: ASPIRIN 81 MG PO SCH (09:12)
[2020-10-31] MEDS: EZETIMIBE 10 MG TAB PO SCH (09:12)
[2020-10-31] MEDS: hydrOXYzine pamoate 25 MG CAP PO SCH ×3 (09:13→21:15)
[2020-10-31] MEDS: ARIPiprazole 5 MG TAB PO SCH (09:13)
[2020-10-31] MEDS: RANOLAZINE 500 MG TAB.ER.12H PO SCH ×2 (09:13→21:17)
[2020-10-31] MEDS: METOPROLOL TARTRATE 50 MG TAB PO SCH ×2 (09:13→21:16)
[2020-10-31] MEDS: FERROUS SULFATE 325 MG TAB PO SCH (09:13)
[2020-10-31] MEDS: FOLIC ACID 1 MG TAB PO SCH (09:13)
[2020-10-31] MEDS: POTASSIUM CHLORIDE ER 20 MEQ TAB.ER PO SCH (09:14)
[2020-10-31] MEDS: SPIRONOLACTONE 25 MG TAB PO SCH (09:14)
[2020-10-31] MEDS: TICAGRELOR 90 MG TAB PO SCH ×2 (09:14→21:15)
[2020-10-31] MEDS: SERTRALINE 50 MG TAB PO SCH (09:14)
[2020-10-31] MEDS: FUROSEMIDE 40 MG TAB PO SCH (09:14)
[2020-10-31] MEDS: PANTOPRAZOLE 40 MG TABLET PO SCH (09:14)
[2020-10-31] MEDS: ISOSORBIDE MONONITRATE ER 30 MG TAB.ER.24H PO SCH ×2 (09:14→21:14)
[2020-10-31] MEDS: HYDROcodone/APAP 10-325MG 1 EACH TAB PO PRN ×2 (09:16→19:15)
[2020-10-31] MEDS: SODIUM CHLORIDE 0.9% 1,000 ML IV SCH ×3 (09:30→21:20)
--- NOTE | 2020-10-31 10:04 | PN ---
PROGRESS NOTE DATE OF SERVICE: 10/31/2020 INTERVAL HISTORY: Patient is a 55-year-old pleasant white female admitted to hospital with severe lower abdominal pain for the last 2 days prior to hospitalization. CT scan at that time showed thickening of the colon. She was started on empiric antibiotics for possible acute colitis. She continues to complain of the same abdominal pain in the lower abdomen and had about 3 bowel movements yesterday, no bleeding. Complains of some nausea but no emesis. No fever, chills, night sweats. PHYSICAL EXAMINATION: GENERAL: She appears comfortable. No apparent distress. VITAL SIGNS: Stable. Blood pressure 122/86, pulse rate 82 per minute, afebrile. HEENT: Examination unremarkable. Conjunctivae are pink. Sclerae anicteric. Oral cavity no lesions. NECK: No JVD or lymph node enlargement. CHEST: Clear to auscultation. HEART: Regular rate and rhythm. ABDOMEN: Soft. There was very minimal tenderness in the left lower quadrant area. The rest of the abdomen was benign. Bowel sounds are positive. No organomegaly. EXTREMITIES: No pedal edema. NEURO: She is alert and oriented x3. No focal deficits. LABS: From today WBC 6.1, hemoglobin 13.9, platelets normal. Basic metabolic panel is within normal limits. IMPRESSION: 1. Lower abdominal pain for the last one week duration. CT scan showed thickening of the ascending and transverse colon, possibility of acute colitis and on antibiotics for 5 days. Still continues to remain symptomatic. She did have a colonoscopy by Dr. Brewer 2 months ago that showed diverticulosis. 2. Altered mental status, completely resolved. 3. History of diabetes mellitus. 4. History of hypertension and hyperlipidemia. 5. History of anxiety and depression. RECOMMENDATIONS: 1. Continue antibiotics. 2. Continue with current diet. 3. Monitor labs closely. 4. We will follow with you. Thank you for this consultation. MMODL / IJN: [id number] /
--- NOTE | 2020-10-31 10:09 | P.PN ---
Subjective Progress Note Date: 10/31/20 Aminta Sheikh, is a 55-year-old female who presented to [facility] emergency room, with a chief complaint of abdominal pain that started on the day of admission in the morning and continued to worsen gradually, her abdominal pain was radiating toward her left lower extremity, patient was also complaining of nausea but no vomiting no diarrhea or constipation she denies any blood in her stools she denies any urinary symptoms. She was evaluated in the emergency room, vital examination on presentation revealed a temperature of 99.3 pulse 90 respiration 18 blood pressure 147/86 pulse ox 98% on room air. White blood count was 6.8 hemoglobin 12.9 platelet count 237 sodium 134 potassium 4.2 chloride 104 CO2 19 BUN 15 creatinine 0.73 glucose was elevated at 578 AST and ALT were normal amylase and lipase were normal coronavirus PCR was negative. Patient underwent a venous Doppler of the left lower extremity in emergency room that was negative for DVT, she also underwent a computed tomography scan of the abdomen and pelvis with contrast, that revealed evidence of multifocal and complicated proximal colitis, she was started on IV antibiotic Unasyn in the emergency room and was admitted to medical floor, gastroenterology consultation was requested. On 10/29/2020 patient is alert and oriented 3. Patient was transferred to the intensive care unit throughout the night due to altered mental status changes and concerns of possible stroke. According to nurse symptoms do seem improved. Speech does appear slightly delayed. Head CT was performed and was reported as periventricular hypodensity likely chronic microvascular ischemia change more than expected in this age group. Neurology services are following MRI of the head has been ordered along with CTA of the neck. Patient remains on Unasyn for colitis. Will consult infectious disease. Patient denies any chest pain or shortness of breath. Patient denies any nausea or vomiting at this time. Patient denies any urinary burning or frequency On 10/30/2020 patient was seen and examined on the medical floor she is alert and oriented 3 in no apparent distress, she is still complaining of abdominal pain mostly in the left lower quadrant otherwise she denies any complaints there is no fever or chills no headache or dizziness no chest pain no shortness of breath no cough no nausea or vomiting no diarrhea no blood in stools no burning with urination no frequency or urgency and no hematuria. On 10/31/2020 patient alert and oriented 3. Patient still complaining of some lower left abdominal discomfort. Patient has been tolerating diet. Patient currently maintained on full liquid diet. Patient denies chest pain or shortness breath. Patient denies nausea vomiting or diarrhea. Patient denies any urinary burning or frequency Objective - Vital Signs Vital signs: Vital Signs Temp 97.7 F 10/31/20 04:23 Pulse 59 L 10/31/20 04:23 Resp 16 10/31/20 04:23 BP 123/64 10/31/20 04:23 Pulse Ox 97 10/31/20 04:23 Intake & Output 10/30/20 10/31/20 10/31/20 18:59 06:59 18:59 Intake Total 1080 Balance 1080 Intake: Oral 1080 Other: # Voids 3 - Exam In general patient is alert and oriented 3 in no apparent distress HEENT head normocephalic and atraumatic Neck is supple no JVD no goiter no lymphadenopathy Chest exam reveals a few scattered rhonchi bilaterally no wheezing Cardiac exam reveals regular heart sounds S1 and S2 no gallops no murmurs Abdomen is soft with mild diffuse tenderness no organomegaly with normal bowel sounds Extremity exam reveals no edema no cyanosis or clubbing Neurological examination reveals no gross focal deficit - Labs CBC & Chem 7: 10/31/20 05:19 10/31/20 05:19 Labs: Abnormal Lab Results - Last 24 Hours (Table) 10/30/20 10/30/20 10/30/20 Range/Units 11:47 17:25 20:37 Chloride (98-107) mmol/L BUN (7-17) mg/dL Glucose (74-99) mg/dL POC Glucose (mg/dL) 117 H 146 H 258 H (75-99) mg/dL Calcium (8.4-10.2) mg/dL 10/31/20 10/31/20 Range/Units 05:19 07:01 Chloride 108 H (98-107) mmol/L BUN 6 L (7-17) mg/dL Glucose 72 L (74-99) mg/dL POC Glucose (mg/dL) 57 L (75-99) mg/dL Calcium 8.2 L (8.4-10.2) mg/dL Assessment and Plan Plan: 1. Abdominal pain with computed tomography scan of the abdomen showing evidence of colitis, patient was started on IV antibiotic in the emergency room and was admitted to medical floor gastroenterology consultation was requested. Infectious disease following 2. History of coronary artery disease with multiple angioplasty and stent placement and history of coronary artery bypass graft surgery 3. Underlying history of hypertension 4. Underlying history of hyperlipidemia 5. Underlying history of insulin-dependent diabetes mellitus 6. Underlying history of depression , bipolar disorder and anxiety disorder 7. Underlying history of hypothyroidism 8. Underlying history of tobacco abuse, patient was counseled in length in regard to smoking cessation counseling more than 5 minutes today. 9. Underlying history of seizure disorder maintained on Keppra 10. aphasia and altered mental status with left-sided facial numbness possibly due to acute ischemic stroke. Symptoms are improving. Neurology services are following. Plans for MRI Patient currently in the intensive care unit GI, critical care, neurology and infectious disease consulted Patient remains on IV Unasyn MRI of the brain ordered
[2020-10-31 12:05] LABS: Glucose,Whole Blood 183 mg/dL (75-99)
--- NOTE | 2020-10-31 13:58 | P.PN ---
Subjective Progress Note Date: 10/31/20 Patient was seen at bedside and she continues to be doing well. Denies any episodes of weakness, numbness, visual disturbance, difficulty getting her words out. Patient stated that she had strokes in the past as well TIA she said the the stroke caused her to have the mild left-sided weakness and numbness that involves upper and lower extremity. She said that she had stroke workup at outside facility and she said she was the she had a stroke when she was 47 and another stroke when she was 49. She said that the she has significant cardiac problem in which the she had the multiple stents in the heart, mitral valve replacement, congestive heart failure as well as the headache CABG in the past. She said that while she was getting the valve replacement that she's had a seizure and at that time she was diagnosed with the seizure but prior to that or after she doesn't have a seizure. She said that she was told that she has multiple sclerosis and it doesn't seem that she is on at any medication. She does not follow up with a neurologist as an outpatient since she still focused on about her heart. She does follow up with her refractory worker as an outpatient (Dr. Murillo). Objective - Vital Signs Vital signs: Vital Signs Temp 98.2 F 10/31/20 11:55 Pulse 59 L 10/31/20 11:55 Resp 18 10/31/20 11:55 BP 132/72 10/31/20 11:55 Pulse Ox 97 10/31/20 11:55 Intake & Output 10/30/20 10/31/20 10/31/20 18:59 06:59 18:59 Intake Total 1080 Balance 1080 Intake: Oral 1080 Other: # Voids 3 - Exam GENERAL: The patient is lying in bed and is not in acute distress. NEUROLOGICAL: Higher mental function: The patient is awake, alert, oriented to self, place and time. Patient is following commands. No aphasia and no neglect. Cranial nerves: The pupils are round, equal and reactive to light and accommodation. Visual coleman are full to confrontation throughout. Extraocular movement is intact no nystagmus is noted. Facial sensation is normal to touch throughout. The facial strength is left nasolabial flattening (old). Hearing is normal bilaterally to hand rub. Tongue is midline and moved [id number] without any difficulty. No dysarthria is noted. Shoulder shrug is normal bilaterally. Motor: Gait is deferred. The strength is 4+ to 5- over the left upper and lower extremity (old). Otherwise 5/5 over the right. Normal tone and bulk. Cerebellum: Normal finger to nose bilaterally. She does have mild tremor towards end of action (intention tremor) Sensation: Sensation is decreased to touch over the entire left upper and lower extremity (old). - Labs CBC & Chem 7: 10/31/20 05:19 10/31/20 05:19 Labs: Abnormal Lab Results - Last 24 Hours (Table) 10/30/20 10/30/20 10/31/20 Range/Units 17:25 20:37 05:19 Chloride 108 H (98-107) mmol/L BUN 6 L (7-17) mg/dL Glucose 72 L (74-99) mg/dL POC Glucose (mg/dL) 146 H 258 H (75-99) mg/dL Calcium 8.2 L (8.4-10.2) mg/dL 10/31/20 10/31/20 Range/Units 07:01 12:03 Chloride (98-107) mmol/L BUN (7-17) mg/dL Glucose (74-99) mg/dL POC Glucose (mg/dL) 57 L 183 H (75-99) mg/dL Calcium (8.4-10.2) mg/dL Microbiology - Last 24 Hours (Table) 10/31/20 03:07 Stool Culture - Preliminary Stool Assessment and Plan Assessment: Altered mental status due to toxic metabolic encephalopathy due to medication effect (narcotic/opiates)--Resolved ?Per primary team Aphasia and reported right sided weakness (on my limited examination broca aphasia and left sided numbness (after she improved the left sided weakness and numbness are old)---resolved. Could be due to transient ischemic attack or due to Narcotic and opiate use. Very small left vertebral artery without evidence of flow proximally that could be hypoplastic or occlusion per CTA (not sure if old especially with history of stroke at age 47 and 49 years old with mild residual left sided weakness and numbness) History of stroke TIA multiple times in the past History of seizure (according to her had episode of seizure while had mitral valve replacement otherwise no hx of seizure she recalls) Presentation of Abdominal pain discomforts with possible colitis Hypothyroidism History of Multiple Sclerosis (Not on any medication) Diabetes mellitus Hyperlipidemia Hypertension History of coronary artery disease status post multiple stenting and CABG History of Mitral Valve replace Plan: The patient is on aspirin 81 mg, Brilinta 90 mg 1 tablet twice a day, and Lipitor 80mg daily (home medications). She is on Keppra 500 mg every 12 hours for seizure (home medcation). CT angiography of the head is reported as no significant angiographic abnormality within the brain. All the CT angiography of the neck is reported as very small left vertebral artery without evidence of flow proximally that could be hypoplastic or occlusion. There is possible retrograde filling of the distal left vertebral artery. No significant angiographic abnormality of the carotid arteries. Carotid duplex is reported as there is antegrade flow in the right vertebral artery. Left vertebral artery is not seen. Plaque formation at the carotid artery bifurcation. Images and measurements suggest less than 35% stenosis in both internal carotid artery. Lipid panel: Triglyceride 227, Cholestrol 203, LDL 91 and HDL: 67. LDL goal in stroke/TIA <70. TSH: >100. Free T4: 0.70. Is suggestive of hypothyroidism. Will defer management to the primary team. I ordered MRI the brain to rule out any acute ischemia versus MS lesion. MRI Brain is pending. 2-D echo was reported as left ventricle size is normal. Moderate concentric left ventricle hypertrophy. Ejection fraction 55-60%. Moderate mitral annular calcification present. Moderate stenosis of the bioprosthetic mitral valve. Consider NADIR for better evaluation of mitral valve. Patient follows-up with Dr. Murillo and would like to get NADIR as outpatient. Ordered event monitor and possibly consider loop recorder. Neuro-checks every 4 hours and placed the patient on continous tele-monitoring. PT, OT and GLOBAL PROGRAM DIRECTOR consult Will defer the rest of medical management to the primary team. The patient needs to follow-up with a neurologist as outpatient. Recommend for patient to follow-up with Dr. Tinoco within 1-2 weeks. The plan discussed with the patient's nurse. Trung Caruso MD Neuro-Hospitalist Time with Patient: Less than 30
--- NOTE | 2020-10-31 15:01 | P.PN ---
Subjective Progress Note Date: 10/30/20 The patient seen at bedside and she stated that she's doing drastically better today compared to yesterday. Denies of any new weakness, numbness, difficulty getting her words out. She feels like she got too many pain medication while she was in the hospital. Patient stated that she had strokes in the past as well TIA she said the the stroke caused her to have the mild left-sided weakness and numbness that involves upper and lower extremity. She said that she had stroke workup at outside facility and she said she was the she had a stroke when she was 47 and another stroke when she was 49. She said that the she has significant cardiac problem in which the she had the multiple stents in the heart, mitral valve replacement, congestive heart failure as well as the headache CABG in the past. She said that while she was getting the valve replacement that she's had a seizure and at that time she was diagnosed with the seizure but prior to that or after she doesn't have a seizure. She said that she was told that she has multiple sclerosis and it doesn't seem that she is on at any medication. She does not follow up with a neurologist as an outpatient since she still focused on about her heart. She does follow up with her fabric separator operator as an outpatient (Dr. Murillo). Objective - Vital Signs Vital signs: Vital Signs Temp 98.2 F 10/31/20 11:55 Pulse 59 L 10/31/20 11:55 Resp 18 10/31/20 11:55 BP 132/72 10/31/20 11:55 Pulse Ox 97 10/31/20 11:55 Intake & Output 10/30/20 10/31/20 10/31/20 18:59 06:59 18:59 Intake Total 1080 Balance 1080 Intake: Oral 1080 Other: # Voids 3 - Exam GENERAL: The patient is lying in bed and is not in acute distress. NEUROLOGICAL: Higher mental function: The patient is awake, alert, oriented to self, place and time. Patient is following commands. No aphasia and no neglect. Cranial nerves: The pupils are round, equal and reactive to light and accommodation. Visual coleman are full to confrontation throughout. Extraocular movement is intact no nystagmus is noted. Facial sensation is normal to touch throughout. The facial strength is left nasolabial flattening (old). Hearing is normal bilaterally to hand rub. Tongue is midline and moved [id number] without any difficulty. No dysarthria is noted. Shoulder shrug is normal bilaterally. Motor: Gait is deferred. The strength is 4+ to 5- over the left upper and lower extremity (old). Otherwise 5/5 over the right. Normal tone and bulk. Cerebellum: Normal finger to nose bilaterally. She does have mild tremor towards end of action (intention tremor) Sensation: Sensation is decreased to touch over the entire left upper and lower extremity (old). - Labs CBC & Chem 7: 10/31/20 05:19 10/31/20 05:19 Labs: Abnormal Lab Results - Last 24 Hours (Table) 10/30/20 10/30/20 10/31/20 Range/Units 17:25 20:37 05:19 Chloride 108 H (98-107) mmol/L BUN 6 L (7-17) mg/dL Glucose 72 L (74-99) mg/dL POC Glucose (mg/dL) 146 H 258 H (75-99) mg/dL Calcium 8.2 L (8.4-10.2) mg/dL 10/31/20 10/31/20 Range/Units 07:01 12:03 Chloride (98-107) mmol/L BUN (7-17) mg/dL Glucose (74-99) mg/dL POC Glucose (mg/dL) 57 L 183 H (75-99) mg/dL Calcium (8.4-10.2) mg/dL Microbiology - Last 24 Hours (Table) 10/31/20 03:07 Stool Culture - Preliminary Stool Assessment and Plan Assessment: Altered mental status due to toxic metabolic encephalopathy due to medication effect (narcotic/opiates)--Resolved ?Per primary team Aphasia and reported right sided weakness (on my limited examination broca aphasia and left sided numbness (after she improved the left sided weakness and numbness are old)---resolved. Could be due to transient ischemic attack or due to Narcotic and opiate use. Very small left vertebral artery without evidence of flow proximally that could be hypoplastic or occlusion per CTA (not sure if old especially with history of stroke at age 47 and 49 years old with mild residual left sided weakness and numbness) History of stroke (at age 47 and 49 years old) with residual left sided weakness and numbness. Seems cardioembolic Hypothyroidism History of seizure (according to her had episode of seizure while had mitral valve replacement otherwise no hx of seizure she recalls) Presentation of Abdominal pain discomforts with possible colitis History of Multiple Sclerosis (Not on any medication) Diabetes mellitus Hyperlipidemia Hypertension History of coronary artery disease status post multiple stenting and CABG History of Mitral Valve replace Plan: The patient is on aspirin 81 mg, Brilinta 90 mg 1 tablet twice a day, and Lipitor 80mg daily (home medications). She is on Keppra 500 mg every 12 hours for seizure (home medcation). CT angiography of the head is reported as no significant angiographic abnormality within the brain. All the CT angiography of the neck is reported as very small left vertebral artery without evidence of flow proximally that could be hypoplastic or occlusion. There is possible retrograde filling of the distal left vertebral artery. No significant angiographic abnormality of the carotid arteries. Carotid duplex is reported as there is antegrade flow in the right vertebral artery. Left vertebral artery is not seen. Plaque formation at the carotid artery bifurcation. Images and measurements suggest less than 35% stenosis in both internal carotid artery. Lipid panel: Triglyceride 227, Cholestrol 203, LDL 91 and HDL: 67. LDL goal in stroke/TIA <70. TSH: >100. Free T4: 0.70. Is suggestive of hypothyroidism. Will defer management to the primary team. I ordered MRI the brain to rule out any acute ischemia versus MS lesion. MRI Brain is pending. 2-D echo was reported as left ventricle size is normal. Moderate concentric left ventricle hypertrophy. Ejection fraction 55-60%. Moderate mitral annular calcification present. Moderate stenosis of the bioprosthetic mitral valve. Consider NADIR for better evaluation of mitral valve. Patient follows-up with Dr. Murillo and would like to get NADIR as outpatient. Recommend event monitor and possibly loop recorder down the line. Neuro-checks every 4 hours and placed the patient on continous tele-monitoring. PT, OT and INDEPENDENT INSURANCE ADJUSTER consult Will defer the rest of medical management to the primary team. The patient needs to follow-up with a neurologist as outpatient. Recommend for patient to follow-up with Dr. Tinoco within 1-2 weeks. The plan discussed with the patient's nurse. Trung Caruso MD Neuro-Hospitalist Time with Patient: Less than 30
[2020-10-31 17:23] LABS: Glucose,Whole Blood 207 mg/dL (75-99)
--- NOTE | 2020-10-31 18:37 | PN ---
PROGRESS NOTE DATE OF SERVICE: 10/31/2020 REASON FOR FOLLOWUP: Colitis. INTERVAL HISTORY: The patient is afebrile. The patient is still complaining of pain to the abdominal area. No worsening though. Still feeling nauseated. No vomiting and having diarrhea. PHYSICAL EXAMINATION: Blood pressure 132/72 with a pulse of 69, temperature 98.2. She is 97% on room air. General description: The patient is a middle-aged female lying in bed in no distress. Respiratory system: Unlabored breathing, clear to auscultation anteriorly. Heart S1, S2. Regular rate and rhythm. ABDOMEN: Soft, no tenderness. No guarding. No rigidity. LABS: Hemoglobin 13.8, white count 6.1. BUN of 6. Creatinine 0.89. Stool culture is pending. DIAGNOSTIC IMPRESSION AND PLAN: Patient admitted to the hospital with abdominal pain, nausea, vomiting and evidence of diarrhea. Abdominal CT suggestive of colitis, question of ischemic versus infectious. Stool culture pending. Patient to continue with Unasyn , Continue supportive care. MMODL / IJN: [id number] / KAVON
[2020-10-31 20:39] LABS: Glucose,Whole Blood 88 mg/dL (75-99)
[2020-10-31] MEDS: QUEtiapine 50 MG TAB PO SCH (21:15)
[2020-10-31] MEDS: MIRTAZAPINE 45 MG TABLET PO SCH (21:15)
[2020-11-01] MEDS: AMPICILLIN-SULBACTAM 3 GM in SODIUM CHLORIDE 0.9% 100 ML IVPB SCH ×4 (05:30→23:36)
[2020-11-01] MEDS: LEVOTHYROXINE 100 MCG TAB PO SCH (05:31)
[2020-11-01] MEDS: SODIUM CHLORIDE 0.9% 1,000 ML IV SCH ×3 (05:32→17:39)
[2020-11-01 06:47] LABS: Basophils % (A) 1 %; Eosinophils # (A) 0.1 k/uL (0-0.7); Eosinophils % (A) 2 %; HGB 13.2 gm/dL (11.4-16.0); Lymphocytes # (A) 1.2 k/uL (1.0-4.8); Lymphocytes % (A) 26 %; MCH 31.2 pg (25.0-35.0); MCHC 33.7 g/dL (31.0-37.0); MCV 92.6 fL (80.0-100.0); Mean Platelet Volume 7.2; Monocytes # (A) 0.3 k/uL (0-1.0); Monocytes % (A) 6 %; Neutrophils # (A) 2.9 k/uL (1.3-7.7); Neutrophils % (A) 64 %; Platelet Count 245 k/uL (150-450); RBC 4.22 m/uL (3.80-5.40); RDW 13.9 % (11.5-15.5); WBC 4.6 k/uL (3.8-10.6)
[2020-11-01 07:14] LABS: Glucose,Whole Blood 156 mg/dL (75-99)
[2020-11-01] MEDS: levETIRAcetam 500 MG TAB PO SCH ×2 (08:11→21:59)
[2020-11-01] MEDS: PANTOPRAZOLE 40 MG TABLET PO SCH (08:11)
[2020-11-01] MEDS: FERROUS SULFATE 325 MG TAB PO SCH (08:11)
[2020-11-01] MEDS: EZETIMIBE 10 MG TAB PO SCH (08:11)
[2020-11-01] MEDS: hydrOXYzine pamoate 25 MG CAP PO SCH ×3 (08:11→21:59)
[2020-11-01] MEDS: POTASSIUM CHLORIDE ER 20 MEQ TAB.ER PO SCH (08:11)
[2020-11-01] MEDS: ARIPiprazole 5 MG TAB PO SCH (08:11)
[2020-11-01] MEDS: ATORVASTATIN 80 MG TAB PO SCH (08:11)
[2020-11-01] MEDS: FUROSEMIDE 40 MG TAB PO SCH (08:11)
[2020-11-01] MEDS: TICAGRELOR 90 MG TAB PO SCH ×2 (08:11→22:00)
[2020-11-01] MEDS: SERTRALINE 50 MG TAB PO SCH (08:11)
[2020-11-01] MEDS: INSULIN DETEMIR (LEVEMIR) 100 UNIT/ML SYR SQ SCH ×2 (08:12→22:02)
[2020-11-01] MEDS: INSULIN ASPART (NovoLOG) 100 UNIT/ML VIAL SQ SCH ×4 (08:12→22:00)
[2020-11-01] MEDS: ASPIRIN 81 MG PO SCH (08:12)
[2020-11-01] MEDS: SPIRONOLACTONE 25 MG TAB PO SCH (08:12)
[2020-11-01] MEDS: FOLIC ACID 1 MG TAB PO SCH (08:12)
[2020-11-01] MEDS: METOPROLOL TARTRATE 50 MG TAB PO SCH ×2 (08:12→22:00)
[2020-11-01] MEDS: ISOSORBIDE MONONITRATE ER 30 MG TAB.ER.24H PO SCH ×2 (08:12→22:00)
[2020-11-01] MEDS: RANOLAZINE 500 MG TAB.ER.12H PO SCH ×2 (08:12→21:59)
[2020-11-01 10:49] LABS: Albumin 3.8 g/dL (3.80-4.90); Albumin/Globulin Ratio 2.11 (1.60-3.17); Anion Gap 11.4 mmol/L (4.00-12.00); Carbon Dioxide 21.6 mmol/L (21.6-31.8); Globulin 1.8 g/dL (1.6-3.3); Non-African American GFR(CKD) 63.8 (60.0-200.0); Potassium 3.3 mmol/L (3.5-5.5); Total Bilirubin 0.2 mg/dL (0.3-1.2); Total Protein 5.6 g/dL (6.2-8.2)
[2020-11-01 11:50] LABS: Glucose,Whole Blood 252 mg/dL (75-99)
--- NOTE | 2020-11-01 13:36 | P.PN ---
Subjective Progress Note Date: 11/01/20 Principal diagnosis: Colitis This 55-year-old pleasant white female who came to the emergency room with severe lower abdominal pain started 1-2 days ago. She denies any diarrhea, blood per rectum or blood in the stool. She actually states that she's had constipation. She's had nausea no emesis. She was found to have nothing of the right colon in the transverse colon consistent with colitis on the computed tomography scan. She is been started on broad-spectrum antibiotics. Today she is seen and evaluated. She states she's had a couple episodes of loose diarrhea. Denies any blood in stool. States she still has some abdominal cramping and pain. No nausea or vomiting. Objective - Vital Signs Vital signs: Vital Signs Temp 98.4 F 11/01/20 12:22 Pulse 56 L 11/01/20 12:22 Resp 17 11/01/20 12:22 BP 136/81 11/01/20 12:22 Pulse Ox 100 11/01/20 12:22 - Exam General appearance: The patient is alert, oriented, appears in no acute distress. HET: Head is normocephalic and atraumatic. Conjunctiva pink. Sclera anicteric. Neck: Supple without lymphadenopathy. Abdomen: Soft, diffuse abdominal tenderness, nondistended with bowel sounds. No guarding or rigidity. Extremities: Normal skin color and turgor. No pedal edema Skin: No rashes, no jaundice Neurological: No focal deficits. Alert and oriented 3. - Labs CBC & Chem 7: 11/01/20 05:53 11/01/20 05:53 Labs: Abnormal Lab Results - Last 24 Hours (Table) 10/31/20 11/01/20 11/01/20 Range/Units 17:22 05:53 07:12 Potassium 3.3 L (3.5-5.5) mmol/L Chloride 111 H (96-109) mmol/L BUN 6.0 L (9.0-27.0) mg/dL BUN/Creatinine Ratio 6.00 L (12.00-20.00) Ratio Glucose 152 H (70-110) mg/dL POC Glucose (mg/dL) 207 H 156 H (75-99) mg/dL Calcium 8.0 L (8.7-10.3) mg/dL Total Bilirubin 0.2 L (0.3-1.2) mg/dL Total Protein 5.6 L (6.2-8.2) g/dL 11/01/20 Range/Units 11:34 Potassium (3.5-5.5) mmol/L Chloride (96-109) mmol/L BUN (9.0-27.0) mg/dL BUN/Creatinine Ratio (12.00-20.00) Ratio Glucose (70-110) mg/dL POC Glucose (mg/dL) 252 H (75-99) mg/dL Calcium (8.7-10.3) mg/dL Total Bilirubin (0.3-1.2) mg/dL Total Protein (6.2-8.2) g/dL Microbiology - Last 24 Hours (Table) 10/31/20 03:07 Stool Culture - Preliminary Stool Assessment and Plan (1) Abdominal pain Narrative/Plan: This is a 55-year-old lady who presented with acute onset of severe lower abdominal pain that started 2 days ago and was associated with intense nausea but no emesis. Computed tomography scan showed thickening of the right colon as well as transverse colon consistent with acute colitis. Surprisingly patient does not have any diarrhea and in fact somewhat constipated. Her last colonoscopy by Dr. Garcia was in July 2020 which was unremarkable other than sigmoid diverticulosis and small internal hemorrhoids. At this time possibility of acute infection colitis needs to be considered. Doubt ischemic colitis, but this cannot entirely be excluded. At this time there are no plans for any endoscopic intervention. Continue IV antibiotics. Stool culture pending, C. Difficile ordered Current Visit: No Status: Acute Code(s): R10.9 - UNSPECIFIED ABDOMINAL PAIN SNOMED Code(s): 89273415 (2) Colitis Current Visit: Yes Status: Acute Code(s): K52.9 - NONINFECTIVE GASTROENTERITIS AND COLITIS, UNSPECIFIED SNOMED Code(s): 67155948 Plan: 1. Continue symptomatic and supportive care 2. Advance to low fiber diet 3. Clostridium difficile ordered 3. Continue broad-spectrum antibiotics 4. Monitor labs closely 5. No plans for any endoscopic intervention at this time Thank you for this consultation, we will continue to follow. Dr. David Fuentes I agree with the dictator's note, documented as a scribe by Maria Alejandra Manzanares.
[2020-11-01] MEDS: IOPAMIDOL CONTRAST (ORAL USE) VIAL PO PRN ×2 (16:02→17:00)
--- NOTE | 2020-11-01 16:51 | PN ---
PROGRESS NOTE DATE OF SERVICE: 11/01/2020 REASON FOR FOLLOWUP: Colitis. INTERVAL HISTORY: The patient is currently afebrile. The patient has been complaining of abdominal pain, mostly in the lower abdominal area with associated nausea, vomiting, and she did have multiple loose stools. Denies having any chest pain, shortness of breath or cough. Overall feeling not that good. PHYSICAL EXAMINATION: Blood pressure 136/81, pulse of 56, temperature 98.4. She is 100% on room air. General description is a middle-aged female lying in bed in no distress. RESPIRATORY SYSTEM: Unlabored breathing. Clear to auscultation anteriorly. HEART: S1, S2. Regular rate and rhythm. ABDOMEN: Soft. No tenderness. LABS: Hemoglobin 13.2, white count 4.6. BUN of 76, creatinine 1.0. DIAGNOSTIC IMPRESSION AND PLAN: Patient admitted to hospital with abdominal pain with concern for colitis with a question of ischemic versus infectious. So far patient has not responded to the Unasyn. We will repeat a CT of abdomen and pelvis with contrast to better define her underlying colitis abnormality. Follow up on the stool culture and monitor clinical course closely. MMODL / IJN: [id number] /
[2020-11-01 17:17] LABS: Glucose,Whole Blood 65 mg/dL (75-99)
[2020-11-01 17:33] LABS: Glucose,Whole Blood 95 mg/dL (75-99)
[2020-11-01] MEDS ORDERED: POTASSIUM CHLORIDE ER 20 MEQ TAB.ER PO STA (17:52)
--- NOTE | 2020-11-01 19:26 | P.PN ---
Subjective Progress Note Date: 11/01/20 Aminta Sheikh, is a 55-year-old female who presented to [facility] emergency room, with a chief complaint of abdominal pain that started on the day of admission in the morning and continued to worsen gradually, her abdominal pain was radiating toward her left lower extremity, patient was also complaining of nausea but no vomiting no diarrhea or constipation she denies any blood in her stools she denies any urinary symptoms. She was evaluated in the emergency room, vital examination on presentation revealed a temperature of 99.3 pulse 90 respiration 18 blood pressure 147/86 pulse ox 98% on room air. White blood count was 6.8 hemoglobin 12.9 platelet count 237 sodium 134 potassium 4.2 chloride 104 CO2 19 BUN 15 creatinine 0.73 glucose was elevated at 578 AST and ALT were normal amylase and lipase were normal coronavirus PCR was negative. Patient underwent a venous Doppler of the left lower extremity in emergency room that was negative for DVT, she also underwent a computed tomography scan of the abdomen and pelvis with contrast, that revealed evidence of multifocal and complicated proximal colitis, she was started on IV antibiotic Unasyn in the emergency room and was admitted to medical floor, gastroenterology consultation was requested. On 10/29/2020 patient is alert and oriented 3. Patient was transferred to the intensive care unit throughout the night due to altered mental status changes and concerns of possible stroke. According to nurse symptoms do seem improved. Speech does appear slightly delayed. Head CT was performed and was reported as periventricular hypodensity likely chronic microvascular ischemia change more than expected in this age group. Neurology services are following MRI of the head has been ordered along with CTA of the neck. Patient remains on Unasyn for colitis. Will consult infectious disease. Patient denies any chest pain or shortness of breath. Patient denies any nausea or vomiting at this time. Patient denies any urinary burning or frequency On 10/30/2020 patient was seen and examined on the medical floor she is alert and oriented 3 in no apparent distress, she is still complaining of abdominal pain mostly in the left lower quadrant otherwise she denies any complaints there is no fever or chills no headache or dizziness no chest pain no shortness of breath no cough no nausea or vomiting no diarrhea no blood in stools no burning with urination no frequency or urgency and no hematuria. On 10/31/2020 patient alert and oriented 3. Patient still complaining of some lower left abdominal discomfort. Patient has been tolerating diet. Patient currently maintained on full liquid diet. Patient denies chest pain or shortness breath. Patient denies nausea vomiting or diarrhea. Patient denies any urinary burning or frequency On 11/01/2020 patient was seen and examined on the medical floor she is complaining of diarrhea she is complaining of abdominal pain and discomfort otherwise she denies any complaints there is no fever or chills no headache or dizziness no chest pain no shortness of breath no cough no nausea or vomiting and no urinary symptoms Objective - Vital Signs Vital signs: Vital Signs Temp 97.6 F 11/01/20 05:00 Pulse 72 11/01/20 08:00 Resp 16 11/01/20 05:00 BP 117/65 11/01/20 05:00 Pulse Ox 100 11/01/20 05:00 - Exam In general patient is alert and oriented 3 in no apparent distress HEENT head normocephalic and atraumatic Neck is supple no JVD no goiter no lymphadenopathy Chest exam reveals a few scattered rhonchi bilaterally no wheezing Cardiac exam reveals regular heart sounds S1 and S2 no gallops no murmurs Abdomen is soft with mild diffuse tenderness no organomegaly with normal bowel sounds Extremity exam reveals no edema no cyanosis or clubbing Neurological examination reveals no gross focal deficit - Labs CBC & Chem 7: 11/01/20 05:53 11/01/20 05:53 Labs: Abnormal Lab Results - Last 24 Hours (Table) 10/31/20 10/31/20 11/01/20 Range/Units 12:03 17:22 07:12 POC Glucose (mg/dL) 183 H 207 H 156 H (75-99) mg/dL Microbiology - Last 24 Hours (Table) 10/31/20 03:07 Stool Culture - Preliminary Stool Assessment and Plan Plan: 1. Abdominal pain with computed tomography scan of the abdomen showing evidence of colitis, patient was started on IV antibiotic in the emergency room and was admitted to medical floor gastroenterology consultation was requested. Infectious disease following 2. History of coronary artery disease with multiple angioplasty and stent placement and history of coronary artery bypass graft surgery 3. Underlying history of hypertension 4. Underlying history of hyperlipidemia 5. Underlying history of insulin-dependent diabetes mellitus 6. Underlying history of depression , bipolar disorder and anxiety disorder 7. Underlying history of hypothyroidism 8. Underlying history of tobacco abuse, patient was counseled in length in regard to smoking cessation counseling more than 5 minutes today. 9. Underlying history of seizure disorder maintained on Keppra 10. aphasia and altered mental status with left-sided facial numbness possibly due to acute ischemic stroke. Symptoms are improving. Neurology services are following. Plans for MRI Patient currently in the intensive care unit GI, critical care, neurology and infectious disease consulted Patient remains on IV Unasyn MRI of the brain ordered
[2020-11-01] MEDS: HYDROmorphone 0.5 MG/0.5 ML SYRINGE IVP PRN ×2 (19:31→23:24)
--- NOTE | 2020-11-01 19:39 | P.PN ---
Subjective Progress Note Date: 11/01/20 Patient initially seen by Dr. Trung Garcia, please refer to his note for details. Patient at present complains of abdominal pain. 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 Patient has history of coronary artery disease, bypass surgery, history of multiple stents, seizure after mitral valve replacement at age 50, for which she is on Keppra, but seizure has never happened thereafter. Patient does not follow-up with a neurologist. Patient follows up with Dr. 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 Objective - Vital Signs Vital signs: Vital Signs Temp 98.4 F 11/01/20 12:22 Pulse 56 L 11/01/20 12:22 Resp 17 11/01/20 12:22 BP 136/81 11/01/20 12:22 Pulse Ox 100 11/01/20 12:22 - Exam Patient's mental status, speech and language functions are normal. Patient is alert and oriented 4. Speech and language functions are normal. No aphasia or dysarthria. On cranial nerve examination pupils are round and reacting to light, visual coleman are full on confrontation, extraocular muscles are intact with no nystagmus. Facial sensation is normal. Patient has mild right facial asymmetry, which partly is due to lack of dentition on the right side. Hearing is normal, tongue protrudes to the midline. Palatal elevation and sensation normal, hearing and shoulder shrug normal. On muscle strength testing, patient has mild left pronation but no drift. The strength is normal in arms and legs distally and proximally except for left hip flexion which is 5-. Reflexes are trace in the upper extremity, trace in the lower extremity. Sensory to touch is decreased in the left side of the body including face arm and leg, which is old finding. No neglect. No ataxia for fikiry-ak-ywtj testing, although she slightly tremulous for fkmtlb-ls-bslh testing. Gait de ferred. - Labs CBC & Chem 7: 11/01/20 05:53 11/01/20 05:53 Labs: Abnormal Lab Results - Last 24 Hours (Table) 10/31/20 11/01/20 11/01/20 Range/Units 17:22 05:53 07:12 Potassium 3.3 L (3.5-5.5) mmol/L Chloride 111 H (96-109) mmol/L BUN 6.0 L (9.0-27.0) mg/dL BUN/Creatinine Ratio 6.00 L (12.00-20.00) Ratio Glucose 152 H (70-110) mg/dL POC Glucose (mg/dL) 207 H 156 H (75-99) mg/dL Calcium 8.0 L (8.7-10.3) mg/dL Total Bilirubin 0.2 L (0.3-1.2) mg/dL Total Protein 5.6 L (6.2-8.2) g/dL 11/01/20 Range/Units 11:34 Potassium (3.5-5.5) mmol/L Chloride (96-109) mmol/L BUN (9.0-27.0) mg/dL BUN/Creatinine Ratio (12.00-20.00) Ratio Glucose (70-110) mg/dL POC Glucose (mg/dL) 252 H (75-99) mg/dL Calcium (8.7-10.3) mg/dL Total Bilirubin (0.3-1.2) mg/dL Total Protein (6.2-8.2) g/dL Microbiology - Last 24 Hours (Table) 10/31/20 03:07 Stool Culture - Preliminary Stool Assessment and Plan Assessment: Altered mental status due to toxic metabolic encephalopathy due to medication effect (narcotic/opiates)--Resolved ?Per primary team Aphasia and reported right sided weakness (on my limited examination broca aphasia and left sided numbness (after she improved the left sided weakness and numbness are old)---resolved. Could be due to transient ischemic attack or due to Narcotic and opiate use. Very small left vertebral artery without evidence of flow proximally that could be hypoplastic or occlusion per CTA (not sure if old especially with history of stroke at age 47 and 49 years old with mild residual left sided weakness and numbness) History of stroke TIA multiple times in the past History of seizure (according to her had episode of seizure while had mitral valve replacement otherwise no hx of seizure she recalls) Presentation of Abdominal pain discomforts with possible colitis Hypothyroidism History of Multiple Sclerosis (Not on any medication) Diabetes mellitus Hyperlipidemia Hypertension History of coronary artery disease status post multiple stenting and CABG History of Mitral Valve replace Plan: The patient is on aspirin 81 mg, Brilinta 90 mg 1 tablet twice a day, and Lipitor 80mg daily (home medications). She is on Keppra 500 mg every 12 hours for seizure (home medcation). CT angiography of the head is reported as no significant angiographic abnormality within the brain. CT angiography of the neck is reported as very small left vertebral artery without evidence of flow proximally that could be hypoplastic or occlusion. There is possible retrograde filling of the distal left vertebral artery. No significant angiographic abnormality of the carotid arteries. Carotid duplex is reported as there is antegrade flow in the right vertebral artery. Left vertebral artery is not seen. Plaque formation at the carotid artery bifurcation. Images and measurements suggest less than 35% stenosis in both internal carotid artery. Lipid panel: Triglyceride 227, Cholestrol 203, LDL 91 and HDL: 67. LDL goal in stroke/TIA <70. TSH: >100. Free T4: 0.70. Is suggestive of hypothyroidism. Will defer management to the primary team. MRI Brain is pending. Awaiting clearance because of her multiple stents. 2-D echo was reported as left ventricle size is normal. Moderate concentric left ventricle hypertrophy. Ejection fraction 55-60%. Moderate mitral annular calcification present. Moderate stenosis of the bioprosthetic mitral valve.
[2020-11-01 20:50] LABS: Glucose,Whole Blood 208 mg/dL (75-99)
[2020-11-01] MEDS: MIRTAZAPINE 45 MG TABLET PO SCH (22:00)
[2020-11-01] MEDS: QUEtiapine 50 MG TAB PO SCH (22:00)
--- NOTE | 2020-11-01 22:46 | CT ---
EXAMINATION TYPE: CT abdomen pelvis w con DATE OF EXAM: 11/01/2020 COMPARISON: 10/27/2020 HISTORY: Left lower quadrant pain, diarrhea and nausea. CT DLP: 1346 mGycm Automated exposure control for dose reduction was used. CONTRAST: Performed with IV Contrast, patient injected with 100 mL of Isovue 300. Images obtained from the diaphragm to the floor the pelvis with oral and IV contrast. The lung bases are clear. There is no pleural effusion. Heart size is normal. There is previous cardi ac surgery. There are clips from cholecystectomy. Liver spleen stomach pancreas appear normal. The bi le ducts are nondilated. There is no adrenal mass. Kidneys show satisfactory contrast opacification. There is no hydronephrosi s. The ureters are not dilated. Delayed images show normal renal excretion. Abdominal aorta is athero matous. There is small air bubble in the urinary bladder. Bladder distends smoothly. There is no ingu inal hernia. There is no evidence of a bladder mass. There is no sign of a pelvic mass. There is no mesenteric edema. There is no ascites or free air. There is no sign of a bowel obstructio n. There is slight wall thickening of the hepatic flexure of the colon. Appendix is not seen. The lumbar vertebra have normal alignment. There is no compression fracture. There is a minimal degen erative first-degree L5-S1 spondylolisthesis. Bony pelvis is intact. The hip joints are intact. IMPRESSION: There is suggestion of some mild wall thickening of the hepatic flexure of the colon which could be s ome minimal nonspecific colitis. This appears new compared to old exam. I do not see a cause for left lower quadrant pain. Moderate atherosclerotic vascular calcification for the patient's age.
[2020-11-02] MEDS: HYDROmorphone 0.5 MG/0.5 ML SYRINGE IVP PRN ×2 (03:57→23:50)
[2020-11-02] MEDS: SODIUM CHLORIDE 0.9% 1,000 ML IV SCH ×3 (05:36→18:25)
[2020-11-02] MEDS: LEVOTHYROXINE 100 MCG TAB PO SCH (05:55)
[2020-11-02] MEDS: AMPICILLIN-SULBACTAM 3 GM in SODIUM CHLORIDE 0.9% 100 ML IVPB SCH ×4 (05:55→23:47)
[2020-11-02 08:32] LABS: Glucose,Whole Blood 97 mg/dL (75-99)
[2020-11-02] MEDS: INSULIN ASPART (NovoLOG) 100 UNIT/ML VIAL SQ SCH ×4 (08:41→21:37)
[2020-11-02] MEDS: ISOSORBIDE MONONITRATE ER 30 MG TAB.ER.24H PO SCH ×2 (08:54→21:47)
[2020-11-02] MEDS: POTASSIUM CHLORIDE ER 20 MEQ TAB.ER PO SCH (08:54)
[2020-11-02] MEDS: PANTOPRAZOLE 40 MG TABLET PO SCH (08:54)
[2020-11-02] MEDS: SPIRONOLACTONE 25 MG TAB PO SCH (08:54)
[2020-11-02] MEDS: SERTRALINE 50 MG TAB PO SCH (08:54)
[2020-11-02] MEDS: METOPROLOL TARTRATE 50 MG TAB PO SCH ×2 (08:54→21:48)
[2020-11-02] MEDS: FUROSEMIDE 40 MG TAB PO SCH (08:54)
[2020-11-02] MEDS: RANOLAZINE 500 MG TAB.ER.12H PO SCH ×2 (08:55→21:50)
[2020-11-02] MEDS: INSULIN DETEMIR (LEVEMIR) 100 UNIT/ML SYR SQ SCH ×2 (08:55→21:46)
[2020-11-02] MEDS: FOLIC ACID 1 MG TAB PO SCH (08:55)
[2020-11-02] MEDS: hydrOXYzine pamoate 25 MG CAP PO SCH ×3 (08:55→21:51)
[2020-11-02] MEDS: ASPIRIN 81 MG PO SCH (08:55)
[2020-11-02] MEDS: FERROUS SULFATE 325 MG TAB PO SCH (08:55)
[2020-11-02] MEDS: ATORVASTATIN 80 MG TAB PO SCH (08:55)
[2020-11-02] MEDS: ARIPiprazole 5 MG TAB PO SCH (08:56)
[2020-11-02] MEDS: TICAGRELOR 90 MG TAB PO SCH ×2 (08:56→21:51)
[2020-11-02] MEDS: EZETIMIBE 10 MG TAB PO SCH (08:56)
[2020-11-02] MEDS: levETIRAcetam 500 MG TAB PO SCH ×2 (08:56→21:47)
[2020-11-02] MEDS: HYDROmorphone 1 MG/ML 1 ML SYRINGE IVP PRN ×3 (10:55→19:38)
[2020-11-02] MEDS: CHOLESTYRAMINE (WITH SUGAR) 4 GM PACKET PO SCH ×2 (10:56→17:48)
[2020-11-02 11:40] LABS: Glucose,Whole Blood 74 mg/dL (75-99)
--- NOTE | 2020-11-02 15:44 | P.PN ---
Subjective Progress Note Date: 11/02/20 11/02/2020: Patient was seen for a follow-up. Patient offers no new complaints. Denies headache. 11/01/2020: Patient initially seen by Dr. Trung Caruso, please refer to his note for details. Patient at present complains of abdominal pain. 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 Patient has history of coronary artery disease, bypass surgery, history of multiple stents, seizure after mitral valve replacement at age 50, for which she is on Keppra, but seizure has never harris ppened thereafter. Patient does not follow-up with a neurologist. 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 Objective - Vital Signs Vital signs: Vital Signs Temp 99 F 11/02/20 12:21 Pulse 57 L 11/02/20 12:21 Resp 17 11/02/20 12:21 BP 116/73 11/02/20 12:21 Pulse Ox 100 11/02/20 12:21 - Exam Patient is sitting on the side of the bed. Patient's mental status, speech and language functions are normal. Patient is alert and oriented 4. Speech and language functions are normal. No aphasia or dysarthria. On cranial nerve examination pupils are round and reacting to light, visual coleman are full on confrontation, extraocular muscles are intact with no nystagmus. Facial sensation is normal. Patient has mild right facial asymmetry, which partly is due to lack of dentition on the right side. Hearing is normal, tongue protrudes to the midline. Palatal elevation and sensation normal, hearing and shoulder shrug normal. On muscle strength testing, patient has mild left pronation but no drift. The strength is normal in arms and legs distally and proximally except for left hip flexion which is 5-. Reflexes are trace in the upper extremity, trace in the lower extremity. Sensory to touch is decreased in the left side of the body including face arm and leg, which is old finding. No neglect. No ataxia for mygfca-ps-crgj testing, although she slightly tremulous for vbfuze-ja-cdpf testing. Gait deferred. - Labs CBC & Chem 7: 11/01/20 05:53 11/01/20 05:53 Labs: Abnormal Lab Results - Last 24 Hours (Table) 11/01/20 11/01/20 11/02/20 Range/Units 17:10 20:37 11:38 POC Glucose (mg/dL) 65 L 208 H 74 L (75-99) mg/dL Microbiology - Last 24 Hours (Table) 10/31/20 03:07 Stool Culture - Preliminary Stool Assessment and Plan Assessment: Altered mental status due to toxic metabolic encephalopathy due to medication effect (narcotic/opiates)--Resolved ?Per primary team Aphasia and reported right sided weakness (on my limited examination broca aphasia and left sided numbness (after she improved the left sided weakness and numbness are old)---resolved. Could be due to transient is chemic attack or due to Narcotic and opiate use. Very small left vertebral artery without evidence of flow proximally that could be hypoplastic or occlusion per CTA (not sure if old especially with history of stroke at age 47 and 49 years old with mild residual left sided weakness and numbness) History of stroke TIA multiple times in the past History of seizure (according to her had episode of seizure while had mitral valve replacement otherwise no hx of seizure she recalls) Presentation of Abdominal pain discomforts with possible colitis Hypothyroidism History of Multiple Sclerosis (Not on any medication) Diabetes mellitus Hyperlipidemia Hypertension History of coronary artery disease status post multiple stenting and CABG History of Mitral Valve replace Plan: The patient is on aspirin 81 mg, Brilinta 90 mg 1 tablet twice a day, and Lipitor 80mg daily (home medications). She is on Keppra 500 mg every 12 hours for seizure (home medcation). CT angiography of the head is reported as no significant angiographic abnormality within the brain. CT angiography of the neck is reported as very small left vertebral artery without evidence of flow proximally that could be hypoplastic or occlusion. There is possible retrograde filling of the distal left vertebral artery. No significant angiographic abnormality of the carotid arteries. Carotid duplex is reported as there is antegrade flow in the right vertebral artery. Left vertebral artery is not seen. Plaque formation at the carotid artery bifurcation. Images and measurements suggest less than 35% stenosis in both internal carotid artery. Lipid panel: Triglyceride 227, Cholestrol 203, LDL 91 and HDL: 67. LDL goal in stroke/TIA <70. TSH: >100. Free T4: 0.70. Is suggestive of hypothyroidism. Will defer management to the primary team. Apparently MRI brain has been canceled. 2-D echo was reported as left ventricle size is normal. Moderate concentric left ventricle hypertrophy. Ejection fraction 55-60%. Moderate mitral annular calcification present. Moderate stenosis of the bioprosthetic mitral valve. Neurologically clear. We will sign off. Please reconsult neurology if any ot her concerns.
--- NOTE | 2020-11-02 16:26 | PN ---
PROGRESS NOTE DATE OF SERVICE: 11/02/2020 REASON FOR FOLLOWUP: Colitis. INTERVAL COURSE: The patient is currently afebrile. The patient has been complaining of abdominal pain. No worsening. Some nausea but no vomiting. The patient did have multiple loose stools. The patient denies any chest pain. No shortness of breath or cough. PHYSICAL EXAMINATION: Blood pressure 116/73, pulse of 57, temperature 99, saturating 100%. General description is a middle-aged female lying in bed in no distress. Respiratory system: Unlabored breathing clear to auscultation anteriorly. Heart S1, S2. Regular rate and rhythm. ABDOMEN: Soft, no tenderness. EXTREMITIES: No edema of the feet. LABS: No new labs have been obtained today. Stool culture so far pending. The patient did have a repeat CT of abdomen and pelvis completed yesterday which did mention mild wall thickening in hepatic flexure of the colon which could be some minimal nonspecific colitis. DIAGNOSTIC IMPRESSION AND PLAN: Patient with abdominal pain with diagnosis of colitis, nonspecific. Stool cultures pending. The patient's has diarrhea and Unasyn may be contributing to it. We will switch antibiotic to Cipro and Flagyl and see response to it and monitor clinical course closely. MMODL / IJN: [id number] /
--- NOTE | 2020-11-02 16:48 | P.PN ---
Subjective Progress Note Date: 11/02/20 Principal diagnosis: Colitis Patient seen and examined lying in bed with her blanket pulled up over her head. She states she still has abdominal pain however it is improved. She does have some mild nausea without any vomiting. She is tolerating her diet. She still having some loose bowel movements. C. difficile toxin was ordered however it was canceled due to stool being too formed. Patient's been afebrile. Stool cultures are negative. Objective - Vital Signs Vital signs: Vital Signs Temp 97.9 F 11/02/20 07:40 Pulse 59 L 11/02/20 10:09 Resp 16 11/02/20 10:09 BP 103/67 11/02/20 07:40 Pulse Ox 98 11/02/20 07:40 - Exam General appearance: The patient is alert, oriented, appears in no acute distress. HET: Head is normocephalic and atraumatic. Conjunctiva pink. Sclera anicteric. Neck: Supple without lymphadenopathy. Abdomen: Soft, diffuse abdominal tenderness, nondistended with bowel sounds. No guarding or rigidity. Extremities: Normal skin color and turgor. No pedal edema Skin: No rashes, no jaundice Neurological: No focal deficits. Alert and oriented 3. - Labs CBC & Chem 7: 11/01/20 05:53 11/01/20 05:53 Labs: Abnormal Lab Results - Last 24 Hours (Table) 11/01/20 11/01/20 11/01/20 Range/Units 05:53 11:34 17:10 Potassium 3.3 L (3.5-5.5) mmol/L Chloride 111 H (96-109) mmol/L BUN 6.0 L (9.0-27.0) mg/dL BUN/Creatinine Ratio 6.00 L (12.00-20.00) Ratio Glucose 152 H (70-110) mg/dL POC Glucose (mg/dL) 252 H 65 L (75-99) mg/dL Calcium 8.0 L (8.7-10.3) mg/dL Total Bilirubin 0.2 L (0.3-1.2) mg/dL Total Protein 5.6 L (6.2-8.2) g/dL 11/01/20 Range/Units 20:37 Potassium (3.5-5.5) mmol/L Chloride (96-109) mmol/L BUN (9.0-27.0) mg/dL BUN/Creatinine Ratio (12.00-20.00) Ratio Glucose (70-110) mg/dL POC Glucose (mg/dL) 208 H (75-99) mg/dL Calcium (8.7-10.3) mg/dL Total Bilirubin (0.3-1.2) mg/dL Total Protein (6.2-8.2) g/dL Assessment and Plan (1) Abdominal pain Narrative/Plan: This is a 55-year-old lady who presented with acute onset of severe lower abdominal pain that started 2 days ago and was associated with intense nausea but no emesis. Computed tomography scan showed thickening of the right colon as well as transverse colon consistent with acute colitis. Surprisingly patient does not have any diarrhea and in fact somewhat constipated. Her last colonoscopy by Dr. Garcia was in July 2020 which was unremarkable other than sigmoid diverticulosis and small internal hemorrhoids. At this time possibility of acute infection colitis needs to be considered. Doubt ischemic colitis, but this cannot entirely be excluded. At this time there are no plans for any endoscopic intervention. Continue IV antibiotics. Stool culture pending, C. Difficile ordered Current Visit: No Status: Acute Code(s): R10.9 - UNSPECIFIED ABDOMINAL PAIN SNOMED Code(s): 87674807 (2) Colitis Current Visit: Yes Status: Acute Code(s): K52.9 - NONINFECTIVE GASTROENTERITIS AND COLITIS, UNSPECIFIED SNOMED Code(s): 35671160 Plan: 1. Continue symptomatic and supportive care 2. Continue low fiber diet 3. Clostridium difficile ordered 4. Antibiotics per recommendation from infectious disease 5. No plans for any endoscopic intervention at this time Thank you for this consultation, we will sign off at this time. She may be discharged home from a gastroenterology standpoint. Dr. Brewer I agree with the dictator's note, documented as a scribe by Maria Alejandra PERLA.
[2020-11-02 17:16] LABS: Glucose,Whole Blood 72 mg/dL (75-99)
[2020-11-02 17:22] VITALS: RESP 16
--- NOTE | 2020-11-02 19:21 | P.PN ---
Subjective Progress Note Date: 11/02/20 Aminta Sheikh, is a 55-year-old female who presented to [facility] emergency room, with a chief complaint of abdominal pain that started on the day of admission in the morning and continued to worsen gradually, her abdominal pain was radiating toward her left lower extremity, patient was also complaining of nausea but no vomiting no diarrhea or constipation she denies any blood in her stools she denies any urinary symptoms. She was evaluated in the emergency room, vital examination on presentation revealed a temperature of 99.3 pulse 90 respiration 18 blood pressure 147/86 pulse ox 98% on room air. White blood count was 6.8 hemoglobin 12.9 platelet count 237 sodium 134 potassium 4.2 chloride 104 CO2 19 BUN 15 creatinine 0.73 glucose was elevated at 578 AST and ALT were normal amylase and lipase were normal coronavirus PCR was negative. Patient underwent a venous Doppler of the left lower extremity in emergency room that was negative for DVT, she also underwent a computed tomography scan of the abdomen and pelvis with contrast, that revealed evidence of multifocal and complicated proximal colitis, she was started on IV antibiotic Unasyn in the emergency room and was admitted to medical floor, gastroenterology consultation was requested. On 10/29/2020 patient is alert and oriented 3. Patient was transferred to the intensive care unit throughout the night due to altered mental status changes and concerns of possible stroke. According to nurse symptoms do seem improved. Speech does appear slightly delayed. Head CT was performed and was reported as periventricular hypodensity likely chronic microvascular ischemia change more than expected in this age group. Neurology services are following MRI of the head has been ordered along with CTA of the neck. Patient remains on Unasyn for colitis. Will consult infectious disease. Patient denies any chest pain or shortness of breath. Patient denies any nausea or vomiting at this time. Patient denies any urinary burning or frequency On 10/30/2020 patient was seen and examined on the medical floor she is alert and oriented 3 in no apparent distress, she is still complaining of abdominal pain mostly in the left lower quadrant otherwise she denies any complaints there is no fever or chills no headache or dizziness no chest pain no shortness of breath no cough no nausea or vomiting no diarrhea no blood in stools no burning with urination no frequency or urgency and no hematuria. On 10/31/2020 patient alert and oriented 3. Patient still complaining of some lower left abdominal discomfort. Patient has been tolerating diet. Patient currently maintained on full liquid diet. Patient denies chest pain or shortness breath. Patient denies nausea vomiting or diarrhea. Patient denies any urinary burning or frequency On 11/01/2020 patient was seen and examined on the medical floor she is complaining of diarrhea she is complaining of abdominal pain and discomfort otherwise she denies any complaints there is no fever or chills no headache or dizziness no chest pain no shortness of breath no cough no nausea or vomiting and no urinary symptoms On 11/02/2020 patient was seen and examined on the medical floor she is complaining of abdominal pain and diarrhea eyes she denies any complaints there is no fever or chills no headache or dizziness no chest pain no shortness of breath no cough no nausea or vomiting no burning with urination no frequency or urgency and no hematuria at this time medication and labs were reviewed continue with current management awaiting stool sample for C. diff toxin Objective - Vital Signs Vital signs: Vital Signs Temp 99 F 11/02/20 12:21 Pulse 57 L 11/02/20 12:21 Resp 17 11/02/20 12:21 BP 116/73 11/02/20 12:21 Pulse Ox 100 11/02/20 12:21 - Exam In general patient is alert and oriented 3 in no apparent distress HEENT head normocephalic and atraumatic Neck is supple no JVD no goiter no lymphadenopathy Chest exam reveals a few scattered rhonchi bilaterally no wheezing Cardiac exam reveals regular heart sounds S1 and S2 no gallops no murmurs Abdomen is soft with mild diffuse tenderness no organomegaly with normal bowel sounds Extremity exam reveals no edema no cyanosis or clubbing Neurological examination reveals no gross focal deficit - Labs CBC & Chem 7: 11/01/20 05:53 11/01/20 05:53 Labs: Abnormal Lab Results - Last 24 Hours (Table) 11/01/20 11/01/20 11/02/20 Range/Units 17:10 20:37 11:38 POC Glucose (mg/dL) 65 L 208 H 74 L (75-99) mg/dL Assessment and Plan Plan: 1. Abdominal pain with computed tomography scan of the abdomen showing evidence of colitis, patient was started on IV antibiotic in the emergency room and was admitted to medical floor gastroenterology consultation was requested. Infectious disease following 2. History of coronary artery disease with multiple angioplasty and stent placement and history of coronary artery bypass graft surgery 3. Underlying history of hypertension 4. Underlying history of hyperlipidemia 5. Underlying history of insulin-dependent diabetes mellitus 6. Underlying history of depression , bipolar disorder and anxiety disorder 7. Underlying history of hypothyroidism 8. Underlying history of tobacco abuse, patient was counseled in length in regard to smoking cessation counseling more than 5 minutes today. 9. Underlying history of seizure disorder maintained on Keppra 10. aphasia and altered mental status with left-sided facial numbness possibly due to acute ischemic stroke. Symptoms are improving. Neurology services are following. Plans for MRI Patient currently in the intensive care unit GI, critical care, neurology and infectious disease consulted Patient remains on IV Unasyn MRI of the brain ordered
[2020-11-02 20:02] LABS: Glucose,Whole Blood 73 mg/dL (75-99)
[2020-11-02 21:24] LABS: Glucose,Whole Blood 64 mg/dL (75-99)
[2020-11-02 21:48] LABS: Glucose,Whole Blood 63 mg/dL (75-99)
[2020-11-02] MEDS: QUEtiapine 50 MG TAB PO SCH (21:49)
[2020-11-02] MEDS: MIRTAZAPINE 45 MG TABLET PO SCH (21:49)
[2020-11-02 22:05] LABS: Glucose,Whole Blood 78 mg/dL (75-99)
[2020-11-03] MEDS: AMPICILLIN-SULBACTAM 3 GM in SODIUM CHLORIDE 0.9% 100 ML IVPB SCH (05:21)
[2020-11-03] MEDS: LEVOTHYROXINE 100 MCG TAB PO SCH (05:22)
[2020-11-03] MEDS: SODIUM CHLORIDE 0.9% 1,000 ML IV SCH ×3 (05:27→18:31)
[2020-11-03 07:00] LABS: Glucose,Whole Blood 151 mg/dL (75-99)
[2020-11-03] MEDS: INSULIN DETEMIR (LEVEMIR) 100 UNIT/ML SYR SQ SCH ×2 (08:33→21:10)
[2020-11-03] MEDS: INSULIN ASPART (NovoLOG) 100 UNIT/ML VIAL SQ SCH ×4 (08:33→21:15)
[2020-11-03] MEDS: ASPIRIN 81 MG PO SCH (08:34)
[2020-11-03] MEDS: ARIPiprazole 5 MG TAB PO SCH (08:34)
[2020-11-03] MEDS: EZETIMIBE 10 MG TAB PO SCH (08:34)
[2020-11-03] MEDS: FERROUS SULFATE 325 MG TAB PO SCH (08:34)
[2020-11-03] MEDS: PANTOPRAZOLE 40 MG TABLET PO SCH (08:34)
[2020-11-03] MEDS: ATORVASTATIN 80 MG TAB PO SCH (08:34)
[2020-11-03] MEDS: FOLIC ACID 1 MG TAB PO SCH (08:35)
[2020-11-03] MEDS: hydrOXYzine pamoate 25 MG CAP PO SCH ×3 (08:35→21:05)
[2020-11-03] MEDS: FUROSEMIDE 40 MG TAB PO SCH (08:35)
[2020-11-03] MEDS: ISOSORBIDE MONONITRATE ER 30 MG TAB.ER.24H PO SCH ×2 (08:37→21:01)
[2020-11-03] MEDS: levETIRAcetam 500 MG TAB PO SCH ×2 (08:37→21:01)
[2020-11-03] MEDS: METOPROLOL TARTRATE 50 MG TAB PO SCH ×2 (08:38→21:02)
[2020-11-03] MEDS: POTASSIUM CHLORIDE ER 20 MEQ TAB.ER PO SCH (08:39)
[2020-11-03] MEDS: RANOLAZINE 500 MG TAB.ER.12H PO SCH ×2 (08:39→21:04)
[2020-11-03] MEDS: SERTRALINE 50 MG TAB PO SCH (08:39)
[2020-11-03] MEDS: TICAGRELOR 90 MG TAB PO SCH ×2 (08:40→21:26)
[2020-11-03] MEDS: SPIRONOLACTONE 25 MG TAB PO SCH (08:40)
[2020-11-03] MEDS: HYDROcodone/APAP 10-325MG 1 EACH TAB PO PRN ×2 (09:19→17:43)
[2020-11-03 11:32] LABS: Basophils # (A) 0.1 k/uL (0-0.2); Basophils % (A) 1 %; Eosinophils # (A) 0.1 k/uL (0-0.7); Eosinophils % (A) 1 %; HCT 35.4 % (34.0-46.0); HGB 12.3 gm/dL (11.4-16.0); Lymphocytes % (A) 16 %; MCH 32.2 pg (25.0-35.0); MCHC 34.8 g/dL (31.0-37.0); MCV 92.3 fL (80.0-100.0); Mean Platelet Volume 7.5; Monocytes # (A) 0.3 k/uL (0-1.0); Monocytes % (A) 4 %; Neutrophils # (A) 4.9 k/uL (1.3-7.7); Neutrophils % (A) 77 %; Platelet Count 230 k/uL (150-450); RBC 3.84 m/uL (3.80-5.40); RDW 13.8 % (11.5-15.5); WBC 6.4 k/uL (3.8-10.6)
[2020-11-03 12:35] LABS: Glucose,Whole Blood 131 mg/dL (75-99)
--- NOTE | 2020-11-03 13:10 | P.PN ---
Subjective Progress Note Date: 11/03/20 Aminta Sheikh, is a 55-year-old female who presented to [facility] emergency room, with a chief complaint of abdominal pain that started on the day of admission in the morning and continued to worsen gradually, her abdominal pain was radiating toward her left lower extremity, patient was also complaining of nausea but no vomiting no diarrhea or constipation she denies any blood in her stools she denies any urinary symptoms. She was evaluated in the emergency room, vital examination on presentation revealed a temperature of 99.3 pulse 90 respiration 18 blood pressure 147/86 pulse ox 98% on room air. White blood count was 6.8 hemoglobin 12.9 platelet count 237 sodium 134 potassium 4.2 chloride 104 CO2 19 BUN 15 creatinine 0.73 glucose was elevated at 578 AST and ALT were normal amylase and lipase were normal coronavirus PCR was negative. Patient underwent a venous Doppler of the left lower extremity in emergency room that was negative for DVT, she also underwent a computed tomography scan of the abdomen and pelvis with contrast, that revealed evidence of multifocal and complicated proximal colitis, she was started on IV antibiotic Unasyn in the emergency room and was admitted to medical floor, gastroenterology consultation was requested. On 10/29/2020 patient is alert and oriented 3. Patient was transferred to the intensive care unit throughout the night due to altered mental status changes and concerns of possible stroke. According to nurse symptoms do seem improved. Speech does appear slightly delayed. Head CT was performed and was reported as periventricular hypodensity likely chronic microvascular ischemia change more than expected in this age group. Neurology services are following MRI of the head has been ordered along with CTA of the neck. Patient remains on Unasyn for colitis. Will consult infectious disease. Patient denies any chest pain or shortness of breath. Patient denies any nausea or vomiting at this time. Patient denies any urinary burning or frequency On 10/30/2020 patient was seen and examined on the medical floor she is alert and oriented 3 in no apparent distress, she is still complaining of abdominal pain mostly in the left lower quadrant otherwise she denies any complaints there is no fever or chills no headache or dizziness no chest pain no shortness of breath no cough no nausea or vomiting no diarrhea no blood in stools no burning with urination no frequency or urgency and no hematuria. On 10/31/2020 patient alert and oriented 3. Patient still complaining of some lower left abdominal discomfort. Patient has been tolerating diet. Patient currently maintained on full liquid diet. Patient denies chest pain or shortness breath. Patient denies nausea vomiting or diarrhea. Patient denies any urinary burning or frequency On 11/01/2020 patient was seen and examined on the medical floor she is complaining of diarrhea she is complaining of abdominal pain and discomfort otherwise she denies any complaints there is no fever or chills no headache or dizziness no chest pain no shortness of breath no cough no nausea or vomiting and no urinary symptoms On 11/02/2020 patient was seen and examined on the medical floor she is complaining of abdominal pain and diarrhea eyes she denies any complaints there is no fever or chills no headache or dizziness no chest pain no shortness of breath no cough no nausea or vomiting no burning with urination no frequency or urgency and no hematuria at this time medication and labs were reviewed continue with current management awaiting stool sample for C. diff toxin On 11/03/2020 patient is alert and oriented 3 resting comfortably in bed. Patient still complaining of some left lower abdominal pain. Patient remains on Cipro and Flagyl. No further workup her GI and neurology services. Patient denies chest pain or shortness breath. Patient denies nausea vomiting or diarrhea. Patient denies any urinary burning or frequency Objective - Vital Signs Vital signs: Vital Signs Temp 98.4 F 11/03/20 12:56 Pulse 66 11/03/20 12:56 Resp 16 11/03/20 12:56 BP 116/68 11/03/20 12:56 Pulse Ox 96 11/03/20 12:56 Intake & Output 11/02/20 11/03/20 11/03/20 18:59 06:59 18:59 Output Total 600 Balance -600 Output: Urine 600 Other: # Voids 3 - Exam In general patient is alert and oriented 3 in no apparent distress HEENT head normocephalic and atraumatic Neck is supple no JVD no goiter no lymphadenopathy Chest exam reveals a few scattered rhonchi bilaterally no wheezing Cardiac exam reveals regular heart sounds S1 and S2 no gallops no murmurs Abdomen is soft with mild diffuse tenderness no organomegaly with normal bowel sounds Extremity exam reveals no edema no cyanosis or clubbing Neurological examination reveals no gross focal deficit - Labs CBC & Chem 7: 11/03/20 09:22 11/01/20 05:53 Labs: Abnormal Lab Results - Last 24 Hours (Table) 11/02/20 11/02/20 11/02/20 Range/Units 17:14 20:00 21:21 POC Glucose (mg/dL) 72 L 73 L 64 L (75-99) mg/dL 11/02/20 11/03/20 11/03/20 Range/Units 21:44 06:59 12:34 POC Glucose (mg/dL) 63 L 151 H 131 H (75-99) mg/dL Microbiology - Last 24 Hours (Table) 10/31/20 03:07 Stool Culture - Preliminary Stool Assessment and Plan Plan: 1. Abdominal pain with computed tomography scan of the abdomen showing evidence of colitis, patient was started on IV antibiotic in the emergency room and was admitted to medical floor gastroenterology consultation was requested. Patient has been changed to Omnicef and Flagyl per infectious disease will continue monitor patient's response to antibiotics. No further workup per GI services 2. History of coronary artery disease with multiple angioplasty and stent placement and history of coronary artery bypass graft surgery 3. Underlying history of hypertension 4. Underlying history of hyperlipidemia 5. Underlying history of insulin-dependent diabetes mellitus 6. Underlying history of depression , bipolar disorder and anxiety disorder 7. Underlying history of hypothyroidism 8. Underlying history of tobacco abuse, patient was counseled in length in regard to smoking cessation counseling more than 5 minutes today. 9. Underlying history of seizure disorder maintained on Keppra 10. aphasia and altered mental status with left-sided facial numbness possibly due to acute ischemic stroke. Symptoms are improving. Neurology services have signed off. Patient currently in the intensive care unit GI, critical care, neurology and infectious disease consulted Patient currently on Omnicef and Flagyl
[2020-11-03] MEDS: metroNIDAZOLE 500 MG TAB PO SCH ×3 (13:16→21:06)
[2020-11-03] MEDS: CHOLESTYRAMINE (WITH SUGAR) 4 GM PACKET PO SCH ×2 (13:16→17:35)
--- NOTE | 2020-11-03 16:21 | PN ---
PROGRESS NOTE DATE OF SERVICE: 11/03/2020 REASON FOR FOLLOWUP: Colitis. INTERVAL HISTORY: Patient is afebrile. She is still complaining of abdominal pain though the patient's diarrhea has improved. No bowel movement since morning. No chest pain, shortness of breath or cough. Some nausea but no vomiting. PHYSICAL EXAMINATION: Blood pressure 116/69, pulse 68, temperature 98.8. She is 95% on room air. General description is a middle-aged female lying in bed in no distress. Respiratory system: Unlabored breathing, clear to auscultation anteriorly. Heart S1, S2. Regular rate and rhythm. Abdomen is soft, no tenderness. LABS: Hemoglobin is 10.4, white count 6.4. Stool culture has been negative. DIAGNOSTIC IMPRESSION AND PLAN: Patient with colitis seen on the CT in this patient with abdominal pain and did have diarrhea. Diarrhea seemed to have improved. The patient is currently on Omnicef and Flagyl to continue for about a week to finish course of therapy. Continue supportive care. MMODL / IJN: [id number] /
[2020-11-03 17:15] LABS: Glucose,Whole Blood 133 mg/dL (75-99)
[2020-11-03 20:04] LABS: Glucose,Whole Blood 124 mg/dL (75-99)
[2020-11-03] MEDS: CEFDINIR 300 MG CAP PO SCH (21:01)
[2020-11-03] MEDS: QUEtiapine 50 MG TAB PO SCH (21:03)
[2020-11-03] MEDS: MIRTAZAPINE 45 MG TABLET PO SCH (21:03)
[2020-11-04] MEDS: SODIUM CHLORIDE 0.9% 1,000 ML IV SCH ×2 (00:18→09:56)
[2020-11-04] MEDS: LEVOTHYROXINE 100 MCG TAB PO SCH (06:10)
[2020-11-04 06:21] LABS: Basophils # (A) 0.1 k/uL (0-0.2); Basophils % (A) 1 %; Eosinophils # (A) 0.1 k/uL (0-0.7); Eosinophils % (A) 2 %; HCT 40.3 % (34.0-46.0); HGB 12.8 gm/dL (11.4-16.0); Lymphocytes # (A) 1.1 k/uL (1.0-4.8); Lymphocytes % (A) 19 %; MCH 30.3 pg (25.0-35.0); MCHC 31.9 g/dL (31.0-37.0); MCV 95.1 fL (80.0-100.0); Mean Platelet Volume 7.3; Monocytes # (A) 0.2 k/uL (0-1.0); Monocytes % (A) 4 %; Neutrophils # (A) 4.2 k/uL (1.3-7.7); Neutrophils % (A) 73 %; Platelet Count 222 k/uL (150-450); RBC 4.23 m/uL (3.80-5.40); RDW 14.4 % (11.5-15.5); WBC 5.7 k/uL (3.8-10.6)
[2020-11-04 06:23] LABS: Albumin 3.8 g/dL (3.80-4.90); Albumin/Globulin Ratio 2.24 (1.60-3.17); Anion Gap 16.8 mmol/L (4.00-12.00); Calcium 8.6 mg/dL (8.7-10.3); Carbon Dioxide 21.2 mmol/L (21.6-31.8); Globulin 1.7 g/dL (1.6-3.3); Non-African American GFR(CKD) 63.8 (60.0-200.0); Potassium 3.9 mmol/L (3.5-5.5); Total Bilirubin 0.3 mg/dL (0.2-1.2); Total Protein 5.5 g/dL (6.2-8.2)
[2020-11-04 06:36] LABS: ALT 11 U/L (4-34); AST 25 U/L (14-36); African American GFR (CKD) 81 (>60 ml/min/1.73 sqM); Albumin 3.6 g/dL (3.5-5.0); Albumin/Globulin Ratio 1.4; Alkaline Phosphatase 67 U/L (38-126); Anion Gap 9 mmol/L; Blood Urea Nitrogen 18 mg/dL (7-17); Carbon Dioxide 19 mmol/L (22-30); Chloride 109 mmol/L (98-107); Globulin 2.6 g/dL; Glucose 159 mg/dL (74-99); Non-African American GFR(CKD) 70 (>60 ml/min/1.73 sqM); Potassium 4.6 mmol/L (3.5-5.1); Sodium 137 mmol/L (137-145); Total Bilirubin 0.6 mg/dL (0.2-1.3); Total Protein 6.2 g/dL (6.3-8.2)
[2020-11-04 07:19] LABS: Glucose,Whole Blood 162 mg/dL (75-99)
[2020-11-04] MEDS: METOPROLOL TARTRATE 50 MG TAB PO SCH (08:14)
[2020-11-04] MEDS: POTASSIUM CHLORIDE ER 20 MEQ TAB.ER PO SCH (08:14)
[2020-11-04] MEDS: ASPIRIN 81 MG PO SCH (08:14)
[2020-11-04] MEDS: FUROSEMIDE 40 MG TAB PO SCH (08:14)
[2020-11-04] MEDS: levETIRAcetam 500 MG TAB PO SCH (08:15)
[2020-11-04] MEDS: EZETIMIBE 10 MG TAB PO SCH (08:15)
[2020-11-04] MEDS: metroNIDAZOLE 500 MG TAB PO SCH ×2 (08:15→15:38)
[2020-11-04] MEDS: ARIPiprazole 5 MG TAB PO SCH (08:15)
[2020-11-04] MEDS: TICAGRELOR 90 MG TAB PO SCH (08:15)
[2020-11-04] MEDS: CEFDINIR 300 MG CAP PO SCH (08:16)
[2020-11-04] MEDS: ISOSORBIDE MONONITRATE ER 30 MG TAB.ER.24H PO SCH (08:16)
[2020-11-04] MEDS: ATORVASTATIN 80 MG TAB PO SCH (08:16)
[2020-11-04] MEDS: FERROUS SULFATE 325 MG TAB PO SCH (08:16)
[2020-11-04] MEDS: SERTRALINE 50 MG TAB PO SCH (08:16)
[2020-11-04] MEDS: hydrOXYzine pamoate 25 MG CAP PO SCH ×2 (08:17→15:38)
[2020-11-04] MEDS: RANOLAZINE 500 MG TAB.ER.12H PO SCH (08:19)
[2020-11-04] MEDS: CHOLESTYRAMINE (WITH SUGAR) 4 GM PACKET PO SCH (08:19)
[2020-11-04] MEDS: FOLIC ACID 1 MG TAB PO SCH (08:19)
[2020-11-04] MEDS: SPIRONOLACTONE 25 MG TAB PO SCH (08:19)
[2020-11-04] MEDS: INSULIN ASPART (NovoLOG) 100 UNIT/ML VIAL SQ SCH ×2 (08:20→12:55)
[2020-11-04] MEDS: INSULIN DETEMIR (LEVEMIR) 100 UNIT/ML SYR SQ SCH (08:20)
[2020-11-04] MEDS: PANTOPRAZOLE 40 MG TABLET PO SCH (08:21)
[2020-11-04] MEDS: HYDROmorphone 0.5 MG/0.5 ML SYRINGE IVP PRN ×2 (08:27→12:56)
[2020-11-04] MEDS: HYDROcodone/APAP 10-325MG 1 EACH TAB PO PRN ×2 (10:38→15:38)
[2020-11-04 12:08] LABS: Glucose,Whole Blood 115 mg/dL (75-99)
--- NOTE | 2020-11-04 12:31 | XR ---
EXAMINATION TYPE: XR chest 2V DATE OF EXAM: 11/04/2020 COMPARISON: Chest x-ray 6 days ago. CTA chest 10 days ago. HISTORY: Cough. TECHNIQUE: Frontal and lateral views of the chest are obtained. FINDINGS: Stable right-sided PICC line. Improved inspiration current study. There is no suspicious ne w focal air space opacity, pleural effusion, or pneumothorax seen. The cardiac silhouette size remai ns within normal limits. Overlying sternal wires along with metallic mitral valve and dense point lay ira co ronary artery calcification and/or stents are all redemonstrated. There is overlying anterior loop re amari is redemonstrated. The osseous structures are intact. Cholecystectomy clips noted on lateral view. IMPRESSION: No new acute pulmonary process. No significant change from most recent x-ray.
[2020-11-04 12:37] VITALS: BP 149/84; PULSE 64; TEMP 98.4
--- NOTE | 2020-11-04 14:03 | P.DS ---
Providers Date of admission: 10/29/20 04:27 Expected date of discharge: 11/04/20 Attending physician: Jerson Aguilar Consults: 10/29/20 03:40 Consult Physician Routine Consulting Provider: Trung Caruso Consult Reason/Comments: Code Stroke Do you want consulting provider notified?: Yes 10/29/20 04:05 Consult Physician Stat Consulting Provider: Magdalena Guillen Consult Reason/Comments: ICU Management Do you want consulting provider notified?: Yes 10/29/20 10:27 Consult Physician Routine Consulting Provider: Carrington Gilbert Consult Reason/Comments: Colitis Do you want consulting provider notified?: Yes Primary care physician: Jerson Aguilar [facility] Course: Diagnoses on discharge: 1. Abdominal pain with computed tomography scan of the abdomen showing evidence of colitis, patient was started on IV antibiotic in the emergency room and was admitted to medical floor gastroenterology consultation was requested. Patient has been changed to Omnicef and Flagyl per infectious disease will continue monitor patient's response to antibiotics. No further workup per GI services 2. History of coronary artery disease with multiple angioplasty and stent placement and history of coronary artery bypass graft surgery 3. Underlying history of hypertension 4. Underlying history of hyperlipidemia 5. Underlying history of insulin-dependent diabetes mellitus 6. Underlying history of depression , bipolar disorder and anxiety disorder 7. Underlying history of hypothyroidism 8. Underlying history of tobacco abuse, patient was counseled in length in regard to smoking cessation counseling more than 5 minutes today. 9. Underlying history of seizure disorder maintained on Keppra 10. aphasia and altered mental status with left-sided facial numbness possibly due to acute ischemic stroke. Symptoms are improving. Neurology services have signed off. Hospital course: Aminta Sheikh, is a 55-year-old female who presented to [facility] emergency room, with a chief complaint of abdominal pain that started on the day of admission in the morning and continued to worsen gradually, her abdominal pain was radiating toward her left lower extremity, patient was also complaining of nausea but no vomiting no diarrhea or constipation she denies any blood in her stools she denies any urinary symptoms. She was evaluated in the emergency room, vital examination on presentation revealed a temperature of 99.3 pulse 90 respiration 18 blood pressure 147/86 pulse ox 98% on room air. White blood count was 6.8 hemoglobin 12.9 platelet count 237 sodium 134 potassium 4.2 chloride 104 CO2 19 BUN 15 creatinine 0.73 glucose was elevated at 578 AST and ALT were normal amylase and lipase were normal coronavirus PCR was negative. Patient underwent a venous Doppler of the left lower extremity in emergency room that was negative for DVT, she also underwent a computed tomography scan of the abdomen and pelvis with contrast, that revealed evidence of multifocal and complicated proximal colitis, she was started on IV antibiotic Unasyn in the emergency room and was admitted to medical floor, gastroenterology consultation was requested. On 10/29/2020 patient is alert and oriented 3. Patient was transferred to the intensive care unit throughout the night due to altered mental status changes and concerns of possible stroke. According to nurse symptoms do seem improved. Speech does appear slightly delayed. Head CT was performed and was reported as periventricular hypodensity likely chronic microvascular ischemia change more than expected in this age group. Neurology services are following MRI of the head has been ordered along with CTA of the neck. Patient remains on Unasyn for colitis. Will consult infectious disease. Patient denies any chest pain or shortness of breath. Patient denies any nausea or vomiting at this time. Patient denies any urinary burning or frequency On 10/30/2020 patient was seen and examined on the medical floor she is alert and oriented 3 in no apparent distress, she is still complaining of abdominal pain mostly in the left lower quadrant otherwise she denies any complaints there is no fever or chills no headache or dizziness no chest pain no shortness of breath no cough no nausea or vomiting no diarrhea no blood in stools no burning with urination no frequency or urgency and no hematuria. On 10/31/2020 patient alert and oriented 3. Patient still complaining of some lower left abdominal discomfort. Patient has been tolerating diet. Patient currently maintained on full liquid diet. Patient denies chest pain or shortness breath. Patient denies nausea vomiting or diarrhea. Patient denies any urinary burning or frequency On 11/01/2020 patient was seen and examined on the medical floor she is complaining of diarrhea she is complaining of abdominal pain and discomfort otherwise she denies any complaints there is no fever or chills no headache or dizziness no chest pain no shortness of breath no cough no nausea or vomiting and no urinary symptoms On 11/02/2020 patient was seen and examined on the medical floor she is complaining of abdominal pain and diarrhea eyes she denies any complaints there is no fever or chills no headache or dizziness no chest pain no shortness of breath no cough no nausea or vomiting no burning with urination no frequency or urgency and no hematuria at this time medication and labs were reviewed continue with current management awaiting stool sample for C. diff toxin On 11/03/2020 patient is alert and oriented 3 resting comfortably in bed. Patient still complaining of some left lower abdominal pain. Patient remains on Cipro and Flagyl. No further workup her GI and neurology services. Patient denies chest pain or shortness breath. Patient denies nausea vomiting or diarrhea. Patient denies any urinary burning or frequency. On 11/04/2020 patient was seen and examined on the medical floor she is complaining of diarrhea she is complaining of abdominal pain and discomfort otherwise she denies any complaints there is no fever or chills no headache or dizziness no chest pain no shortness of breath no cough no nausea or vomiting and no urinary symptoms. Plan - Discharge Summary Discharge Rx Participant: Yes New Discharge Prescriptions: New HYDROcodone/APAP 10-325MG [[place] 10-325] 1 each PO Q6H PRN tab PRN Reason: Pain INSULIN ASPART (NovoLOG) [NovoLOG (formulary)] 0 unit SQ ACHS vial Cefdinir [Omnicef] 300 mg PO BID cap Pantoprazole [Protonix] 40 mg PO AC-BRKFST tablet. Cholestyramine (with Sugar) [Questran Packet] 4 gm PO BID@1000,1800 packet metroNIDAZOLE [Flagyl] 500 mg PO TID tab Continue Sertraline [Zoloft] 50 mg PO DAILY Ranolazine [Ranexa] 1,000 mg PO BID QUEtiapine [SEROquel] 50 mg PO HS Mirtazapine [Remeron] 45 mg PO HS hydrOXYzine pamoate [Vistaril] 25 mg PO TID Cyclobenzaprine [Flexeril] 10 mg PO TID Atorvastatin [Lipitor] 80 mg PO DAILY ARIPiprazole [Abilify] 5 mg PO DAILY Loperamide [Imodium] 2 mg PO QID PRN PRN Reason: Diarrhea Ticagrelor [Brilinta] 90 mg PO BID tab Aspirin 81 mg PO DAILY chew lisinopriL [Zestril] 2.5 mg PO DAILY tab Nitroglycerin Sl Tabs [Nitrostat] 0.4 mg SL Q5M PRN PRN Reason: Chest Pain Metoprolol Tartrate [Lopressor] 50 mg PO BID 60 Days #30 tab Ezetimibe [Zetia] 10 mg PO DAILY 30 Days #30 tab tiZANidine [Zanaflex] 4 mg PO TID PRN PRN Reason: Muscle Pain Spironolactone [Aldactone] 25 mg PO DAILY Potassium Chloride ER [K-Dur 20] 20 meq PO DAILY Furosemide [Lasix] 40 mg PO DAILY levETIRAcetam [Keppra] 500 mg PO Q12H Folic Acid 1 mg PO DAILY Isosorbide Mononitrate ER [Imdur] 30 mg PO BID tab.er.24h Ferrous Sulfate [Iron (65 MG Elemental)] 325 mg PO DAILY Levothyroxine Sodium [Synthroid] 200 mcg PO DAILY Insulin Glargine,Hum.rec.anlog [Lantus Solostar] 22 unit SQ BID Discontinued INSULIN ASPART (NovoLOG) [NovoLOG (formulary)] See Protocol SQ AC-TID HYDROcodone/APAP 5-325MG [[place] 5-325] 1 tab PO TID PRN PRN Reason: Pain Discharge Medication List ARIPiprazole [Abilify] 5 mg PO DAILY 05/21/20 [History] Atorvastatin [Lipitor] 80 mg PO DAILY 05/21/20 [History] Cyclobenzaprine [Flexeril] 10 mg PO TID 05/21/20 [History] Mirtazapine [Remeron] 45 mg PO HS 05/21/20 [History] QUEtiapine [SEROquel] 50 mg PO HS 05/21/20 [History] Ranolazine [Ranexa] 1,000 mg PO BID 05/21/20 [History] Sertraline [Zoloft] 50 mg PO DAILY 05/21/20 [History] hydrOXYzine pamoate [Vistaril] 25 mg PO TID 05/21/20 [History] Loperamide [Imodium] 2 mg PO QID PRN 06/08/20 [History] Ticagrelor [Brilinta] 90 mg PO BID tab 06/27/20 [Rx] Aspirin 81 mg PO DAILY chew 08/20/20 [Rx] lisinopriL [Zestril] 2.5 mg PO DAILY tab 08/20/20 [Rx] Nitroglycerin Sl Tabs [Nitrostat] 0.4 mg SL Q5M PRN 09/13/20 [History] Ezetimibe [Zetia] 10 mg PO DAILY 30 Days #30 tab 09/15/20 [Rx] Metoprolol Tartrate [Lopressor] 50 mg PO BID 60 Days #30 tab 09/15/20 [Rx] Furosemide [Lasix] 40 mg PO DAILY 09/21/20 [History] Potassium Chloride ER [K-Dur 20] 20 meq PO DAILY 09/21/20 [History] Spironolactone [Aldactone] 25 mg PO DAILY 09/21/20 [History] tiZANidine [Zanaflex] 4 mg PO TID PRN 09/21/20 [History] Isosorbide Mononitrate ER [Imdur] 30 mg PO BID tab.er.24h 10/03/20 [Rx] Ferrous Sulfate [Iron (65 MG Elemental)] 325 mg PO DAILY 10/18/20 [History] Folic Acid 1 mg PO DAILY 10/18/20 [History] Insulin Glargine,Hum.rec.anlog [Lantus Solostar] 22 unit SQ BID 10/18/20 [History] Levothyroxine Sodium [Synthroid] 200 mcg PO DAILY 10/18/20 [History] levETIRAcetam [Keppra] 500 mg PO Q12H 10/18/20 [History] Cefdinir [Omnicef] 300 mg PO BID cap 11/04/20 [Rx] Cholestyramine (with Sugar) [Questran Packet] 4 gm PO BID@1000,1800 packet 11/04/20 [Rx] HYDROcodone/APAP 10-325MG [[place] 10-325] 1 each PO Q6H PRN tab 11/04/20 [Rx] INSULIN ASPART (NovoLOG) [NovoLOG (formulary)] 0 unit SQ ACHS vial 11/04/20 [Rx] Pantoprazole [Protonix] 40 mg PO AC-BRKFST tablet. 11/04/20 [Rx] metroNIDAZOLE [Flagyl] 500 mg PO TID tab 11/04/20 [Rx] Follow up Appointment(s)/Referral(s): Jerson Aguilar MD [Primary Care Provider] - 04/29/21 1:00 pm
[2020-11-04 14:27] VITALS: BMI 28.8
--- NOTE | 2020-11-04 15:18 | PN ---
PROGRESS NOTE DATE OF SERVICE: 11/04/2020 REASON FOR FOLLOWUP: Colitis. INTERVAL COURSE: The patient was seen on rounds this morning. The patient has been afebrile. The patient has been feeling better. Still complaining of abdominal pain, no worsening though. The patient's diarrhea has resolved and did have solid bowel movement. No blood or mucus in the stool. No chest pain, shortness of breath or cough. PHYSICAL EXAMINATION: Blood pressure 149/84, pulse of 64, temperature 98.4, she is 100% on room air. General description is a middle-aged female up in the chair in no distress. Respiratory system: Unlabored breathing, clear to auscultation anteriorly. Heart S1, S2. Regular rate and rhythm. ABDOMEN: Soft, no tenderness. LABS: Hemoglobin is 12.1, white count 5.7, BUN of 18, creatinine 0.93. Stool culture came back negative. DIAGNOSTIC IMPRESSION AND PLAN: Patient with admission to the hospital with abdominal pain. Has been diagnosed with colitis. Stool studies have been negative. Chest x-ray report negative. Finish therapy with oral Cefdinir and Flagyl for a week and close outpatient followup. Discussed with the admitting physician. MMODL / IJN: [id number] /
--- NOTE | 2020-11-09 07:00 | IR ---
PICC LINE PLACEMENT: HISTORY: Infection requiring long-term antibiotic therapy PROCEDURE: Ultrasound guidance of PICC line placement. OSCILLOGRAPH TECHNICIAN: COMPLICATIONS: None ANESTHESIA: 1. 1% Lidocaine locally. FINDINGS/TECHNIQUE: The procedure was explained to the patient. The risks, complications, benefits and alternatives were discussed and any questions were answered. Informed consent was obtained. The patient was placed supine on the fluoroscopic table and prepped and draped in the usual sterile fash ion. Utilizing a 21 gauge needle and sonographic guidance, access in the right brachial vein was ac hieved and there is placement of a 0.018 guidewire. The vein is patent. A 5-F. sheath was placed ov er the guidewire. The guidewire and dilator were removed and a 5-F. Double lumen PICC line was place d through the sheath with the chest x-ray confirming the tip at the level of the SVC. The sheath was removed, the catheter was flushed and sutured into position. The patient was stable throughout the procedure and remained stable upon discharge from the Department of Radiology. The vein puncture was patent under ultrasound. A huang scale image was obtained to document patency of the vein punctured. All elements of the maximal barrier technique were utilized. IMPRESSION: 1. Successful PICC line placement under ultrasound performed bedside.
== END 2020-11-04 17:00 | DRG 64 ==
LOC: EC 11:29 → 6PED 15:28 → 2SICU 10-29 04:20 → OBSVTOIN 10-29 04:27 → 5NMEDONC 10-29 23:00
PROVIDERS: ADMIT Internal Medicine; ATTEND Internal Medicine
PROC: 02HV33Z Insertion of Infusion Device into Superior Vena Cava, Percutaneous Approach (ICD-10-PCS; 2020-10-29)
PROC: 05HY33Z Insertion of Infusion Device into Upper Vein, Percutaneous Approach (ICD-10-PCS; principal; 2020-10-29 14:50)
PROC: 05H933Z Insertion of Infusion Device into Right Brachial Vein, Percutaneous Approach (ICD-10-PCS; 2020-10-29 14:50)
DX: I63.9 Cerebral infarction, unspecified (principal); G92 Toxic encephalopathy; A09 Infectious gastroenteritis and colitis, unspecified; R47.01 Aphasia; I11.0 Hypertensive heart disease with heart failure; I50.9 Heart failure, unspecified; E11.65 Type 2 diabetes mellitus with hyperglycemia; J44.9 Chronic obstructive pulmonary disease, unspecified; F31.9 Bipolar disorder, unspecified; G40.909 Epilepsy, unspecified, not intractable, without status epilepticus; Z79.4 Long term (current) use of insulin; G35 Multiple sclerosis; Z20.822 Contact with and (suspected) exposure to COVID-19; T40.2X5A Adverse effect of other opioids, initial encounter; K59.00 Constipation, unspecified; E03.9 Hypothyroidism, unspecified; K64.8 Other hemorrhoids; I25.10 Atherosclerotic heart disease of native coronary artery without angina pectoris; E78.5 Hyperlipidemia, unspecified; G89.29 Other chronic pain; F41.9 Anxiety disorder, unspecified; F17.200 Nicotine dependence, unspecified, uncomplicated; Z71.6 Tobacco abuse counseling; I25.2 Old myocardial infarction; Z90.710 Acquired absence of both cervix and uterus; Z95.1 Presence of aortocoronary bypass graft; Z95.2 Presence of prosthetic heart valve; Z95.5 Presence of coronary angioplasty implant and graft; Z90.49 Acquired absence of other specified parts of digestive tract; Z88.8 Allergy status to other drugs, medicaments and biological substances; Z91.013 Allergy to seafood; Z79.899 Other long term (current) drug therapy; Z79.890 Hormone replacement therapy; Z79.02 Long term (current) use of antithrombotics/antiplatelets; Z79.82 Long term (current) use of aspirin; Z86.73 Personal history of transient ischemic attack (TIA), and cerebral infarction without residual deficits; Z87.19 Personal history of other diseases of the digestive system; Z86.19 Personal history of other infectious and parasitic diseases; Z82.49 Family history of ischemic heart disease and other diseases of the circulatory system; Z80.1 Family history of malignant neoplasm of trachea, bronchus and lung; K57.30 Diverticulosis of large intestine without perforation or abscess without bleeding; R29.718 NIHSS score 18; R20.0 Anesthesia of skin; E78.00 Pure hypercholesterolemia, unspecified
CPT/HCPCS: 36410; 36415; 36573; 70450; 70496; 70498; 71046; 74177; 76937; 80048; 80053; 80061; 82150; 83605; 83690; 84439; 84443; 85025; 85610; 85730; 87045; 87046; 87635; 93306; 93880; 96374; 96375; 99285

== ENCOUNTER 2020-11-16 19:09 | Observation (INO) | payer MEDICARE, OTHER ==
[2020-11-16] MEDS ORDERED: MORPHINE SULFATE 4 MG/ML SYRINGE IVP STA (19:43)
--- NOTE | 2020-11-16 19:45 | ED ---
General Adult HPI - General Chief complaint: Chest Pain Stated complaint: chest pain Time Seen by Provider: 11/16/20 19:25 Source: patient, RN notes reviewed, old records reviewed Mode of arrival: wheelchair Limitations: no limitations - History of Present Illness Initial comments: 55-year-old female presenting for evaluation of anterior chest pain. History of CAD status post coronary artery bypass graft and multiple stents. Patient does have intermittent chest pain over she states the date is been more constant. She's had minimal relief with nitroglycerin at home. Additionally she reports some minimal abdominal pain and has a recent diagnosis of colitis. She denies significant vomiting but his had some minimal nausea and vomiting. No diap horesis. - Related Data Home Medications Medication Instructions Recorded Confirmed ARIPiprazole [Abilify] 5 mg PO DAILY 05/21/20 11/16/20 Atorvastatin [Lipitor] 80 mg PO DAILY 05/21/20 11/16/20 Cyclobenzaprine [Flexeril] 10 mg PO TID 05/21/20 11/16/20 Mirtazapine [Remeron] 45 mg PO HS 05/21/20 11/16/20 QUEtiapine [SEROquel] 50 mg PO HS 05/21/20 11/16/20 Ranolazine [Ranexa] 1,000 mg PO BID 05/21/20 11/16/20 Sertraline [Zoloft] 50 mg PO DAILY 05/21/20 11/16/20 hydrOXYzine pamoate [Vistaril] 25 mg PO TID 05/21/20 11/16/20 Loperamide [Imodium] 2 mg PO QID PRN 06/08/20 11/16/20 Nitroglycerin Sl Tabs [Nitrostat] 0.4 mg SL Q5M PRN 09/13/20 11/16/20 Furosemide [Lasix] 40 mg PO DAILY 09/21/20 11/16/20 Potassium Chloride ER [K-Dur 20] 20 meq PO DAILY 09/21/20 11/16/20 Spironolactone [Aldactone] 25 mg PO DAILY 09/21/20 11/16/20 tiZANidine [Zanaflex] 4 mg PO TID PRN 09/21/20 11/16/20 Ferrous Sulfate [Iron (65 MG 325 mg PO DAILY 10/18/20 11/16/20 Elemental)] Folic Acid 1 mg PO DAILY 10/18/20 11/16/20 Insulin Glargine,Hum.rec.anlog 22 unit SQ BID 10/18/20 11/16/20 [Lantus Solostar] Levothyroxine Sodium [Synthroid] 200 mcg PO DAILY 10/18/20 11/16/20 levETIRAcetam [Keppra] 500 mg PO Q12H 10/18/20 11/16/20 HYDROcodone/APAP 10-325MG [[place] 1 tab PO Q6H PRN 11/16/20 11/16/20 10-325] INSULIN ASPART (NovoLOG) [NovoLOG See Protocol SQ ACHS 11/16/20 11/16/20 (formulary)] Previous Rx's Medication Instructions Recorded Ticagrelor [Brilinta] 90 mg PO BID tab 06/27/20 Aspirin 81 mg PO DAILY chew 08/20/20 lisinopriL [Zestril] 2.5 mg PO DAILY tab 08/20/20 Ezetimibe [Zetia] 10 mg PO DAILY 30 Days #30 tab 09/15/20 Metoprolol Tartrate [Lopressor] 50 mg PO BID 60 Days #30 tab 09/15/20 Isosorbide Mononitrate ER [Imdur] 30 mg PO BID tab.er.24h 10/03/20 Cholestyramine (with Sugar) 4 gm PO BID@1000,1800 packet 11/04/20 [Questran Packet] Pantoprazole [Protonix] 40 mg PO AC-BRKFST tablet. 11/04/20 Allergies Allergy/AdvReac Type Severity Reaction Status Date / Time gabapentin Allergy Severe Anaphylaxis Verified 11/16/20 19:14 shellfish derived [Crab] Allergy Intermediate Rash/Hives Verified 11/16/20 19:14 Review of Systems ROS Statement: Those systems with pertinent positive or pertinent negative responses have been documented in the HPI. ROS Other: All systems not noted in ROS Statement are negative. 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 2 strokes at age 48. Diverticulitis. Ambulates with a walker. Last Myocardial Infarction Date:: 2015 History of Any Multi-Drug Resistant Organisms: ESBL Date of last positivie culture/infection: 08/27/20 MDRO Source:: ESBL URINE Past Surgical History: Appendectomy, Bladder Surgery, Cholecystectomy, Coronary Bypass/CABG, Heart Catheterization, Heart Catheterization With Stent, Hysterectomy Additional Past Surgical History / Comment(s): CABG in 2013, Mitral valve on 2 017, Heart Stent x thirty (30), bilateral leg stents Past Anesthesia/Blood Transfusion Reactions: No Reported Reaction Date of Last Stent Placement:: 06/25/20 Past Psychological History: Anxiety, Bipolar, Depression Smoking Status: Current every day smoker Past Alcohol Use History: None Reported Past Drug Use History: None Reported - Past Family History Father Family Medical History: Coronary Artery Disease (CAD) Additional Family Medical History / Comment(s): heart disease Mother Family Medical History: Cancer Additional Family Medical History / Comment(s): Lung cancer General Exam Limitations: no limitations General appearance: alert, in no apparent distress Head exam: Present: atraumatic, normocephalic Eye exam: Present: normal appearance, PERRL ENT exam: Present: normal exam Neck exam: Present: normal inspection. Absent: tenderness, meningismus Respiratory exam: Present: normal lung sounds bilaterally. Absent: respiratory distress, wheezes Cardiovascular Exam: Present: regular rate, normal rhythm GI/Abdominal exam: Present: soft. Absent: distended, tenderness, guarding Extremities exam: Present: normal inspection, normal capillary refill. Absent: pedal edema, calf tenderness Neurological exam: Present: alert, oriented X3, CN II-XII intact. Absent: motor sensory deficit Psychiatric exam: Present: normal affect, normal mood Skin exam: Present: warm, dry, intact. Absent: cyanosis, diaphoretic Course Vital Signs 11/16/20 11/16/20 19:12 19:59 Temperature 98.7 F Pulse Rate 99 94 Respiratory 20 20 Rate Blood Pressure 157/80 152/85 O2 Sat by Pulse 99 98 Oximetry EKG Findings - EKG Comments: EKG Findings:: EKG: Normal sinus rhythm, rate of 95, WV interval 172, QRS duration 88, QTC 482. No ST segment elevation Medical Decision Making - Medical Decision Making 55-year-old female for evaluation of chest pain. History of CAD status post bypass status post stenting, recent heart catheterization in September showing multiple occluded coronary arteries. Patient has continued chest pain. Her EKG negative for ST segment elevation. She has a chest x-ray negative for acute cardiac (. Normal CBC, normal CMP with the exception of elevated blood glucose at 420. Initial troponin is negative. Did discuss case with Dr. Aguilar who will accept admission for serial cardiac enzymes, telemetry, cardiology consultation. - Lab Data Result diagrams: 11/16/20 19:41 11/16/20 19:41 Lab Results 11/16/20 11/16/20 11/16/20 Range/Units 19:41 19:41 19:41 WBC 5.0 (3.8-10.6) k/uL RBC 3.70 L (3.80-5.40) m/uL Hgb 11.7 (11.4-16.0) gm/dL Hct 34.1 (34.0-46.0) % MCV 92.3 (80.0-100.0) fL MCH 31.6 (25.0-35.0) pg MCHC 34.3 (31.0-37.0) g/dL RDW 13.5 (11.5-15.5) % Plt Count 226 (150-450) k/uL MPV 6.8 Neutrophils % 71 % Lymphocytes % 20 % Monocytes % 5 % Eosinophils % 2 % Basophils % 1 % Neutrophils # 3.6 (1.3-7.7) k/uL Lymphocytes # 1.0 (1.0-4.8) k/uL Monocytes # 0.3 (0-1.0) k/uL Eosinophils # 0.1 (0-0.7) k/uL Basophils # 0.0 (0-0.2) k/uL PT 9.5 (9.0-12.0) sec INR 0.9 (<1.2) APTT 17.8 L (22.0-30.0) sec Sodium 134 L (137-145) mmol/L Potassium 4.2 (3.5-5.1) mmol/L Chloride 102 (98-107) mmol/L Carbon Dioxide 20 L (22-30) mmol/L Anion Gap 12 mmol/L BUN 26 H (7-17) mg/dL Creatinine 0.81 (0.52-1.04) mg/dL Est GFR (CKD-EPI)AfAm >90 (>60 ml/min/1.73 sqM) Est GFR (CKD-EPI)NonAf 83 (>60 ml/min/1.73 sqM) Glucose 420 H (74-99) mg/dL Calcium 9.4 (8.4-10.2) mg/dL Magnesium 1.6 (1.6-2.3) mg/dL Total Bilirubin 0.3 (0.2-1.3) mg/dL AST 18 (14-36) U/L ALT 15 (4-34) U/L Alkaline Phosphatase 96 (38-126) U/L Troponin I (0.000-0.034) ng/mL Total Protein 6.8 (6.3-8.2) g/dL Albumin 4.2 (3.5-5.0) g/dL Lipase 47 (23-300) U/L 11/16/20 Range/Units 19:41 WBC (3.8-10.6) k/uL RBC (3.80-5.40) m/uL Hgb (11.4-16.0) gm/dL Hct (34.0-46.0) % MCV (80.0-100.0) fL MCH (25.0-35.0) pg MCHC (31.0-37.0) g/dL RDW (11.5-15.5) % Plt Count (150-450) k/uL MPV Neutrophils % % Lymphocytes % % Monocytes % % Eosinophils % % Basophils % % Neutrophils # (1.3-7.7) k/uL Lymphocytes # (1.0-4.8) k/uL Monocytes # (0-1.0) k/uL Eosinophils # (0-0.7) k/uL Basophils # (0-0.2) k/uL PT (9.0-12.0) sec INR (<1.2) APTT (22.0-30.0) sec Sodium (137-145) mmol/L Potassium (3.5-5.1) mmol/L Chloride (98-107) mmol/L Carbon Dioxide (22-30) mmol/L Anion Gap mmol/L BUN (7-17) mg/dL Creatinine (0.52-1.04) mg/dL Est GFR (CKD-EPI)AfAm (>60 ml/min/1.73 sqM) Est GFR (CKD-EPI)NonAf (>60 ml/min/1.73 sqM) Glucose (74-99) mg/dL Calcium (8.4-10.2) mg/dL Magnesium (1.6-2.3) mg/dL Total Bilirubin (0.2-1.3) mg/dL AST (14-36) U/L ALT (4-34) U/L Alkaline Phosphatase (38-126) U/L Troponin I <0.012 (0.000-0.034) ng/mL Total Protein (6.3-8.2) g/dL Albumin (3.5-5.0) g/dL Lipase (23-300) U/L Disposition Clinical Impression: Chest pain Disposition: ADMITTED IP TO THIS [facility] Condition: Stable Is patient prescribed a controlled substance at d/c from ED?: No Referrals: Jerson Aguilar MD [Primary Care Provider] - 1-2 days Decision to Admit Reason: Admit from EC Decision Date: 11/16/20 Decision Time: 20:54
[2020-11-16 19:55] LABS: Basophils % (A) 1 %; Eosinophils # (A) 0.1 k/uL (0-0.7); Eosinophils % (A) 2 %; HCT 34.1 % (34.0-46.0); HGB 11.7 gm/dL (11.4-16.0); Lymphocytes % (A) 20 %; MCH 31.6 pg (25.0-35.0); MCHC 34.3 g/dL (31.0-37.0); MCV 92.3 fL (80.0-100.0); Mean Platelet Volume 6.8; Monocytes # (A) 0.3 k/uL (0-1.0); Monocytes % (A) 5 %; Neutrophils # (A) 3.6 k/uL (1.3-7.7); Neutrophils % (A) 71 %; Platelet Count 226 k/uL (150-450); RDW 13.5 % (11.5-15.5)
[2020-11-16 20:11] LABS: INR 0.9 (<1.2); Prothrombin Time 9.5 sec (9.0-12.0)
[2020-11-16] MEDS ORDERED: ONDANSETRON 4 MG/2 ML VIAL IVP STA (20:11)
[2020-11-16 20:13] LABS: Partial Thromboplastin Time 17.8 sec (22.0-30.0)
[2020-11-16 20:18] LABS: ALT 15 U/L (4-34); AST 18 U/L (14-36); African American GFR (CKD) >90 (>60 ml/min/1.73 sqM); Albumin 4.2 g/dL (3.5-5.0); Alkaline Phosphatase 96 U/L (38-126); Anion Gap 12 mmol/L; Blood Urea Nitrogen 26 mg/dL (7-17); Calcium 9.4 mg/dL (8.4-10.2); Carbon Dioxide 20 mmol/L (22-30); Chloride 102 mmol/L (98-107); Glucose 420 mg/dL (74-99); Lipase 47 U/L (23-300); Magnesium 1.6 mg/dL (1.6-2.3); Non-African American GFR(CKD) 83 (>60 ml/min/1.73 sqM); Potassium 4.2 mmol/L (3.5-5.1); Sodium 134 mmol/L (137-145); Total Bilirubin 0.3 mg/dL (0.2-1.3); Total Protein 6.8 g/dL (6.3-8.2)
--- NOTE | 2020-11-16 20:27 | XR ---
EXAMINATION TYPE: XR chest 1V portable DATE OF EXAM: 11/16/2020 COMPARISON: 11/04/2020. HISTORY: Chest pain and shortness of breath. TECHNIQUE: Single frontal view of the chest is obtained. FINDINGS: There is no focal air space opacity, pleural effusion, or pneumothorax seen. The cardiac silhouette size is borderline enlarged. Prior cardiothoracic postsurgical changes with loop recorder seen. The osseous structures are intact. IMPRESSION: No acute process.
[2020-11-16] MEDS ORDERED: SODIUM CHLORIDE 0.9% 500 ML 500 ML IV ONE (20:34)
[2020-11-16] MEDS ORDERED: ASPIRIN 325 MG TAB PO STA (20:46)
[2020-11-16] MEDS ORDERED: NALOXONE 0.4 MG/ML 1 ML VIAL IV PRN (20:46)
[2020-11-16] MEDS ORDERED: ACETAMINOPHEN TAB 325 MG TAB PO PRN (20:46)
[2020-11-16] MEDS ORDERED: NITROGLYCERIN SL TABS 0.4 MG TAB SUBLINGUAL PRN (20:47)
[2020-11-16] MEDS: hydrOXYzine pamoate 25 MG CAP PO SCH (22:52)
[2020-11-16] MEDS: TICAGRELOR 90 MG TAB PO SCH (22:52)
[2020-11-16] MEDS: METOPROLOL TARTRATE 50 MG TAB PO SCH (22:53)
[2020-11-16] MEDS: CYCLOBENZAPRINE 10 MG TAB PO SCH (22:53)
[2020-11-16] MEDS: levETIRAcetam 500 MG TAB PO SCH (22:53)
[2020-11-16] MEDS: RANOLAZINE 500 MG TAB.ER.12H PO SCH (22:53)
[2020-11-16] MEDS: ISOSORBIDE MONONITRATE ER 30 MG TAB.ER.24H PO SCH (22:53)
[2020-11-16] MEDS: MIRTAZAPINE 45 MG TABLET PO SCH (22:54)
[2020-11-16] MEDS: QUEtiapine 50 MG TAB PO SCH (22:54)
[2020-11-17] MEDS: INSULIN DETEMIR (LEVEMIR) 100 UNIT/ML SYR SQ SCH ×3 (00:13→21:13)
[2020-11-17] MEDS: MORPHINE SULFATE 4 MG/ML SYRINGE IV PRN ×5 (00:14→21:46)
[2020-11-17 00:19] LABS: Glucose,Whole Blood 323 mg/dL (75-99)
[2020-11-17 06:30] LABS: Glucose,Whole Blood 227 mg/dL (75-99)
[2020-11-17] MEDS: LEVOTHYROXINE 100 MCG TAB PO SCH (06:54)
[2020-11-17] MEDS ORDERED: HYDROcodone/APAP 10-325MG 1 EACH TAB PO PRN (07:13)
[2020-11-17] MEDS ORDERED: PANTOPRAZOLE 40 MG TABLET PO SCH (07:30)
[2020-11-17] MEDS: FUROSEMIDE 40 MG TAB PO SCH (07:51)
[2020-11-17] MEDS: ASPIRIN 81 MG PO SCH (07:51)
[2020-11-17] MEDS: TICAGRELOR 90 MG TAB PO SCH ×2 (07:51→21:13)
[2020-11-17] MEDS: ISOSORBIDE MONONITRATE ER 30 MG TAB.ER.24H PO SCH ×2 (07:51→21:13)
[2020-11-17] MEDS: hydrOXYzine pamoate 25 MG CAP PO SCH ×3 (07:51→22:06)
[2020-11-17] MEDS: ATORVASTATIN 80 MG TAB PO SCH (07:51)
[2020-11-17] MEDS: FERROUS SULFATE 325 MG TAB PO SCH (07:52)
[2020-11-17] MEDS: RANOLAZINE 500 MG TAB.ER.12H PO SCH ×2 (07:52→21:13)
[2020-11-17] MEDS: EZETIMIBE 10 MG TAB PO SCH (07:52)
[2020-11-17] MEDS: METOPROLOL TARTRATE 50 MG TAB PO SCH ×2 (07:52→21:13)
[2020-11-17] MEDS: levETIRAcetam 500 MG TAB PO SCH ×2 (07:52→21:13)
[2020-11-17] MEDS: SPIRONOLACTONE 25 MG TAB PO SCH (07:52)
[2020-11-17] MEDS: CYCLOBENZAPRINE 10 MG TAB PO SCH ×3 (07:52→21:13)
[2020-11-17] MEDS: ARIPiprazole 5 MG TAB PO SCH (07:52)
[2020-11-17] MEDS: SERTRALINE 50 MG TAB PO SCH (07:52)
[2020-11-17] MEDS: FOLIC ACID 1 MG TAB PO SCH (07:52)
[2020-11-17] MEDS: ONDANSETRON 4 MG/2 ML VIAL IVP PRN ×2 (09:40→17:39)
[2020-11-17 09:57] LABS: Basophils % (A) 1 %; Eosinophils # (A) 0.1 k/uL (0-0.7); Eosinophils % (A) 3 %; HCT 32.7 % (34.0-46.0); HGB 11.2 gm/dL (11.4-16.0); Lymphocytes # (A) 0.9 k/uL (1.0-4.8); Lymphocytes % (A) 25 %; MCH 31.6 pg (25.0-35.0); MCHC 34.1 g/dL (31.0-37.0); MCV 92.6 fL (80.0-100.0); Mean Platelet Volume 6.7; Monocytes # (A) 0.2 k/uL (0-1.0); Monocytes % (A) 5 %; Neutrophils # (A) 2.3 k/uL (1.3-7.7); Neutrophils % (A) 64 %; Platelet Count 235 k/uL (150-450); RBC 3.54 m/uL (3.80-5.40); RDW 13.7 % (11.5-15.5); WBC 3.7 k/uL (3.8-10.6)
[2020-11-17 09:59] LABS: African American GFR (CKD) >90 (>60 ml/min/1.73 sqM); Anion Gap 8 mmol/L; Blood Urea Nitrogen 23 mg/dL (7-17); Calcium 8.8 mg/dL (8.4-10.2); Carbon Dioxide 23 mmol/L (22-30); Chloride 106 mmol/L (98-107); Glucose 175 mg/dL (74-99); Non-African American GFR(CKD) >90 (>60 ml/min/1.73 sqM); Potassium 4.3 mmol/L (3.5-5.1); Sodium 137 mmol/L (137-145)
[2020-11-17 10:00] LABS: ALT 14 U/L (4-34); AST 21 U/L (14-36); Albumin 3.5 g/dL (3.5-5.0); Albumin/Globulin Ratio 1.4; Alkaline Phosphatase 70 U/L (38-126); Globulin 2.5 g/dL; Total Bilirubin 0.5 mg/dL (0.2-1.3)
[2020-11-17] MEDS: CHOLESTYRAMINE (WITH SUGAR) 4 GM PACKET PO SCH ×2 (10:28→18:05)
--- NOTE | 2020-11-17 11:41 | P.HPIM ---
History of Present Illness H&P Date: 11/17/20 Chief Complaint: Chest pain This is a 55-year-old female patient well known to my services. Patient presented to the ER with complaints of chest pain. Patient has past medical history of extensive coronary artery disease including multiple stents and recent catheterization. Patient reports she has been taking her medications as prescribed. Patient reports a sharp chest pain that started last night without relief of nitroglycerin. Patient was recently admitted and treated for colitis and discharged to rehab. Additional medical history includes COPD, CVA, diabetes mellitus, GERD, GI bleed, hyperlipidemia, hypertension, myocardial infarction, might of still skeletal disorder, pneumonia, thyroid disorder. Chest x-ray completed showing no acute process. EKG showing normal sinus rhythm. Blood sugars upon arrival 323. Troponins negative 3. At this time cardiology services will be consulted. Patient is still complaining of chest pain. Patient denies nausea vomiting or diarrhea. Denies shortness breath. Patient denies any urinary burning or frequency Review of Systems Please refer to HPI otherwise unremarkable Past Medical History Past Medical History: Coronary Artery Disease (CAD), Chest Pain / Angina, COPD, CVA/TIA, Diabetes Mellitus, GERD/Reflux, GI Bleed, Hyperlipidemia, Hypertension, Myocardial Infarction (VT), Musculoskeletal Disorder, Pneumonia, Thyroid Disorder Additional Past Medical History / Comment(s): Pt recently admitted to [facility] on 10/29/20 with abdominal pain/colitis, aphasia/ams/L facial numbness/possible acuteischemic stroke. 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 Last Myocardial Infarction Date:: 2016 History of Any Multi-Drug Resistant Organisms: ESBL Date of last positivie culture/infection: 08/27/20 MDRO Source:: ESBL URINE Past Surgical History: Appendectomy, Bladder Surgery, Cardiac Valve Replacement, Cholecystectomy, Coronary Bypass/CABG, Heart Catheterization, Heart Catheterization With Stent, Hysterectomy Additional Past Surgical History / Comment(s): 2013 CABG 4 vessel, 2017 mitral valve replacement, PCIs with multiple stents, bilateral leg stents, bladder susupension, colonoscopy. Past Anesthesia/Blood Transfusion Reactions: No Reported Reaction Date of Last Stent Placement:: 06/25/20 Past Psychological History: Anxiety, Bipolar, Depression Additional Psychological History / Comment(s): Pt resides with her maicolJoceline. She uses a walker. She has a glucometer. She is fairly independent. Smoking Status: Current every day smoker Past Alcohol Use History: None Reported Additional Past Alcohol Use History / Comment(s): Pt started smoking in 1981 and is less than a ppd smoker. Past Drug Use History: None Reported - Past Family History Father Family Medical History: Coronary Artery Disease (CAD) Additional Family Medical History / Comment(s): heart disease Mother Family Medical History: Cancer Additional Family Medical History / Comment(s): Lung cancer Medications and Allergies Home Medications Medication Instructions Recorded Confirmed Type ARIPiprazole [Abilify] 5 mg PO DAILY 05/21/20 11/17/20 History Atorvastatin [Lipitor] 80 mg PO DAILY 05/21/20 11/17/20 History Cyclobenzaprine [Flexeril] 10 mg PO TID 05/21/20 11/17/20 History Mirtazapine [Remeron] 45 mg PO HS 05/21/20 11/17/20 History QUEtiapine [SEROquel] 50 mg PO HS 05/21/20 11/17/20 History Ranolazine [Ranexa] 1,000 mg PO BID 05/21/20 11/17/20 History Sertraline [Zoloft] 50 mg PO DAILY 05/21/20 11/17/20 History hydrOXYzine pamoate [Vistaril] 25 mg PO TID 05/21/20 11/17/20 History Loperamide [Imodium] 2 mg PO QID PRN 06/08/20 11/17/20 History Ticagrelor [Brilinta] 90 mg PO BID tab 06/27/20 11/17/20 Rx Aspirin 81 mg PO DAILY chew 08/20/20 11/17/20 Rx lisinopriL [Zestril] 2.5 mg PO DAILY tab 08/20/20 11/17/20 Rx Nitroglycerin Sl Tabs [Nitrostat] 0.4 mg SL Q5M PRN 09/13/20 11/17/20 History Ezetimibe [Zetia] 10 mg PO DAILY 30 Days #30 tab 09/15/20 11/17/20 Rx Metoprolol Tartrate [Lopressor] 50 mg PO BID 60 Days #30 tab 09/15/20 11/17/20 Rx Furosemide [Lasix] 40 mg PO DAILY 09/21/20 11/17/20 History Potassium Chloride ER [K-Dur 20] 20 meq PO DAILY 09/21/20 11/17/20 History Spironolactone [Aldactone] 25 mg PO DAILY 09/21/20 11/17/20 History tiZANidine [Zanaflex] 4 mg PO TID PRN 09/21/20 11/17/20 History Isosorbide Mononitrate ER [Imdur] 30 mg PO BID tab.er.24h 10/03/20 11/17/20 Rx Ferrous Sulfate [Iron (65 MG 325 mg PO DAILY 10/18/20 11/17/20 History Elemental)] Folic Acid 1 mg PO DAILY 10/18/20 11/17/20 History Insulin Glargine,Hum.rec.anlog 22 unit SQ BID 10/18/20 11/17/20 History [Lantus Solostar] Levothyroxine Sodium [Synthroid] 200 mcg PO DAILY 10/18/20 11/17/20 History levETIRAcetam [Keppra] 500 mg PO Q12H 10/18/20 11/17/20 History Cholestyramine (with Sugar) 4 gm PO BID@1000,1800 packet 11/04/20 11/17/20 Rx [Questran Packet] Pantoprazole [Protonix] 40 mg PO AC-BRKFST tablet. 11/04/20 11/17/20 Rx HYDROcodone/APAP 10-325MG [[place] 1 tab PO Q6H PRN 11/16/20 11/17/20 History 10-325] INSULIN ASPART (NovoLOG) [NovoLOG See Protocol SQ ACHS 11/16/20 11/17/20 History (formulary)] Allergies Allergy/AdvReac Type Severity Reaction Status Date / Time gabapentin Allergy Severe Anaphylaxis Verified 11/17/20 10:47 shellfish derived [Crab] Allergy Intermediate Rash/Hives Verified 11/17/20 10:47 Physical Exam Vitals: Vital Signs Temp Pulse Pulse Resp BP BP Pulse Ox 11/17/20 10:58 97.7 F 62 18 112/67 96 11/17/20 10:29 98.1 F 68 18 122/58 98 11/17/20 07:14 62 18 124/67 100 11/17/20 06:14 98.5 F 61 20 112/63 100 11/17/20 03:06 59 L 18 108/60 99 11/17/20 00:19 98.6 F 84 18 106/64 100 11/16/20 21:07 86 20 154/79 100 11/16/20 19:59 94 20 152/85 98 11/16/20 19:12 98.7 F 99 20 157/80 99 Intake and Output 11/16/20 11/17/20 11/17/20 22:59 06:59 14:59 Other: Weight 81.193 kg 81.193 kg Head normocephalic Neck supple Lungs clear to auscultation bilaterally no wheezing or crackles Heart regular rate and rhythm S1-S2, no rub or gallop Abdomen is soft nontender nondistended positive bowel sounds no hepatosplenomegaly Extremities no edema Neuro alert and orientated to 3 Results CBC & Chem 7: 11/17/20 09:19 11/17/20 09:36 Labs: Abnormal Lab Results - Last 24 Hours (Table) 11/16/20 11/16/20 11/16/20 Range/Units 19:41 19:41 19:41 WBC (3.8-10.6) k/uL RBC 3.70 L (3.80-5.40) m/uL Hgb (11.4-16.0) gm/dL Hct (34.0-46.0) % Lymphocytes # (1.0-4.8) k/uL APTT 17.8 L (22.0-30.0) sec Sodium 134 L (137-145) mmol/L Carbon Dioxide 20 L (22-30) mmol/L BUN 26 H (7-17) mg/dL Glucose 420 H (74-99) mg/dL POC Glucose (mg/dL) (75-99) mg/dL Total Protein (6.3-8.2) g/dL 11/17/20 11/17/20 11/17/20 Range/Units 00:12 06:28 09:19 WBC 3.7 L (3.8-10.6) k/uL RBC 3.54 L (3.80-5.40) m/uL Hgb 11.2 L (11.4-16.0) gm/dL Hct 32.7 L (34.0-46.0) % Lymphocytes # 0.9 L (1.0-4.8) k/uL APTT (22.0-30.0) sec Sodium (137-145) mmol/L Carbon Dioxide (22-30) mmol/L BUN (7-17) mg/dL Glucose (74-99) mg/dL POC Glucose (mg/dL) 323 H 227 H (75-99) mg/dL Total Protein (6.3-8.2) g/dL /12/03 Range/Units 09:36 WBC (3.8-10.6) k/uL RBC (3.80-5.40) m/uL Hgb (11.4-16.0) gm/dL Hct (34.0-46.0) % Lymphocytes # (1.0-4.8) k/uL APTT (22.0-30.0) sec Sodium (137-145) mmol/L Carbon Dioxide (22-30) mmol/L BUN 23 H (7-17) mg/dL Glucose 175 H (74-99) mg/dL POC Glucose (mg/dL) (75-99) mg/dL Total Protein 6.0 L (6.3-8.2) g/dL Thrombosis Risk Factor Assmnt - Choose All That Apply Any of the Below Risk Factors Present?: Yes Each Factor Represents 1 point: Age 41-60 years, Obesity (BMI >25) Other Risk Factors: No Other congenital or acquired thrombophilia - If yes, enter type in comment: No Each Risk Factor Represents 5 Points: Stroke (< 1 month) Thrombosis Risk Factor Assessment Total Risk Factor Score: 7 Thrombosis Risk Factor Assessment Level: High Risk Assessment and Plan Assessment: 1. Chest pain. Troponins negative 3. Chest x-ray negative. Cardiology services have been consulted 2. Recent episode of colitis. Patient was treated with IV antibiotics evaluated by GI services and infectious disease 3. History of coronary artery disease with multiple angioplasty and stent placement and history of coronary artery bypass graft surgery 4. History of essential hypertension 5. History of hyperlipidemia 6. History of insulin-dependent diabetes mellitus 7. History of hypothyroidism 8. History of nicotine dependence. Patient educated greater than 5 minutes smoking cessation 9. History of seizure disorder maintained on Keppra
[2020-11-17 12:33] LABS: Glucose,Whole Blood 148 mg/dL (75-99)
--- NOTE | 2020-11-17 12:40 | P.CRDCN ---
History of Present Illness Consult date: 11/17/20 History of present illness: HISTORY OF PRESENT ILLNESS: This is a 55-year-old female with a past medical history significant for coronary artery disease with previous CABG and PCI, mitral valve replacement, hypertension, hyperlipidemia, diabetes mellitus, COPD, and CVA. Patient follows in the office with Dr. Murillo. We have been asked to see the patient in consultation for chest pain. Patient examined at the bedside by Dr. Vides. Patient apparently reports having chest pain that began yesterday. She states the pain was not relieved with sublingual nitro. She also reports having blood in her stools over the past couple days, which has resolved at the time of examination. Patient was recently hospitalized secondary to colitis and treated with IV antibiotics. Patient has been to the hospital multiple times secondary to chest pain. She recently underwent cardiac catheterization where medical management was recommended. She remains on optimal medications from a cardiac standpoint. EKG reveals sinus rhythm with no signs of acute ischemia Chest xray no acute cardiopulmonary process Laboratory data: WBC 3.7. Hemoglobin 11.2. Platelet count 235. Sodium 137. Potassium 4.3. BUN 23. Creatinine 0.63. Troponin negative 3. Current home cardiac medications include lisinopril 2.5 mg daily, Brilinta 90 mg twice a day, Aldactone 25mg daily, Ranexa 1000 mg twice a day, metoprolol tartrate 50mg twice a day, Lasix 40 mg daily, Zetia 10 mg daily, Imdur 30 mg twice a day, Lipitor 80 mg daily, and aspirin 81 mg daily Most recent echocardiogram obtained in October 2020 revealed ejection fraction 55- 60% Cardiac catheterization history: 08/18/[address] Murillo revealing occluded LAD in the midportion. ROBLES to LAD is patent. Occluded ramus intermedius which seems to be an in-stent occlusion. Occluded left circumflex which also seems to be an in-stent occlusion. Pain started in the right coronary artery. Medical management was recommended. 09/24/[address] Murillo revealing normal left main coronary artery. Occluded left circumflex which seems to be in-stent occlusion with multiple layers of stents. Occluded ramus intermedius coronary artery which seems to also be in- stent occlusion with multiple layers of stents. Occluded left anterior descending artery. ROBLES to LAD is patent. Mid to distal LAD has lesion appea ring to be in the range of 60-70%. Patent stents in the right coronary artery. REVIEW OF SYSTEMS: At the time of my exam: CONSTITUTIONAL: Denies fever or chills. HEENT: Denies blurred vision, vision changes, or eye pain. Denies hemoptysis CARDIOVASCULAR: Reports chest pain. Denies orthopnea. Denies PND. Denies palpitations RESPIRATORY: Denies shortness of breath. GASTROINTESTINAL: Denies abdominal pain. Denies nausea or vomiting. HEMATOLOGIC: Denies bleeding disorders. GENITOURINARY: Denies any blood in urine. SKIN: Denies pruitis. Denies rash. PHYSICAL EXAM: VITAL SIGNS: Reviewed. GENERAL: Well-developed in no acute distress. HEENT: Head is normocephalic. Pupils are equal, round. Sclerae anicteric. Mucous membranes of the mouth are moist. Neck supple. No JVD or thyromegaly LUNGS: Respirations even and unlabored. Lungs essentially clear to auscultation bilaterally. HEART: Regular rate and rhythm. S1 and S2 heard. Systolic murmur noted. ABDOMEN: Soft. Nondistended. Nontender. EXTREMITIES: Normal range of motion. No clubbing or cyanosis. Peripheral pulses intact. No lower extremity edema NEUROLOGIC: Awake and alert. Oriented x 3. ASSESSMENT: Chest pain, troponins negative 3 Reports of bright red blood per rectum, resolved Coronary artery disease with previous CABG and PCI Valvular heart disease with prior bioprosthetic mitral valve replacement Hypertension Hyperlipidemia Diabetes mellitus Peripheral vascular disease History of CVA 4 per patient Nicotine dependence PLAN: An acute coronary event has been ruled out No need to repeat echocardiogram as this was performed last month Resume home cardiac medications No further cardiac inpatient workup recommended. Patient may be discharged home today from a cardiac standpoint and follow up in the office with Dr. Murillo. We will sign off. Please reconsult if needed. Nurse practitioner note has been reviewed by physician. Signing provider agrees with the documented findings, assessment, and plan of care. Past Medical History Past Medical History: Coronary Artery Disease (CAD), Chest Pain / Angina, COPD, CVA/TIA, Diabetes Mellitus, GERD/Reflux, GI Bleed, Hyperlipidemia, Hypertension, Myocardial Infarction (ID), Musculoskeletal Disorder, Pneumonia, Thyroid Disorder Additional Past Medical History / Comment(s): Pt recently admitted to [facility] on 10/29/20 with abdominal pain/colitis, aphasia/ams/L facial numbness/possible acuteischemic stroke. 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 Last Myocardial Infarction Date:: 2015 History of Any Multi-Drug Resistant Organisms: ESBL Date of last positivie culture/infection: 08/27/20 MDRO Source:: ESBL URINE Past Surgical History: Appendectomy, Bladder Surgery, Cardiac Valve Replacement, Cholecystectomy, Coronary Bypass/CABG, Heart Catheterization, Heart Catheterizat ion With Stent, Hysterectomy Additional Past Surgical History / Comment(s): 2013 CABG 4 vessel, 2016 mitral valve replacement, PCIs with multiple stents, bilateral leg stents, bladder susupension, colonoscopy. Past Anesthesia/Blood Transfusion Reactions: No Reported Reaction Date of Last Stent Placement:: 06/25/20 Past Psychological History: Anxiety, Bipolar, Depression Additional Psychological History / Comment(s): Pt resides with her [facility]. She uses a walker. She has a glucometer. She is fairly independent. Smoking Status: Current every day smoker Past Alcohol Use History: None Reported Additional Past Alcohol Use History / Comment(s): Pt started smoking in 1981 and is less than a ppd smoker. Past Drug Use History: None Reported - Past Family History Father Family Medical History: Coronary Artery Disease (CAD) Additional Family Medical History / Comment(s): heart disease Mother Family Medical History: Cancer Additional Family Medical History / Comment(s): Lung cancer Medications and Allergies Home Medications Medication Instructions Recorded Confirmed Type ARIPiprazole [Abilify] 5 mg PO DAILY 05/21/20 11/17/20 History Atorvastatin [Lipitor] 80 mg PO DAILY 05/21/20 11/17/20 History Cyclobenzaprine [Flexeril] 10 mg PO TID 05/21/20 11/17/20 History Mirtazapine [Remeron] 45 mg PO HS 05/21/20 11/17/20 History QUEtiapine [SEROquel] 50 mg PO HS 05/21/20 11/17/20 History Ranolazine [Ranexa] 1,000 mg PO BID 05/21/20 11/17/20 History Sertraline [Zoloft] 50 mg PO DAILY 05/21/20 11/17/20 History hydrOXYzine pamoate [Vistaril] 25 mg PO TID 05/21/20 11/17/20 History Loperamide [Imodium] 2 mg PO QID PRN 06/08/20 11/17/20 History Ticagrelor [Brilinta] 90 mg PO BID tab 06/27/20 11/17/20 Rx Aspirin 81 mg PO DAILY chew 08/20/20 11/17/20 Rx lisinopriL [Zestril] 2.5 mg PO DAILY tab 08/20/20 11/17/20 Rx Nitroglycerin Sl Tabs [Nitrostat] 0.4 mg SL Q5M PRN 09/13/20 11/17/20 History Ezetimibe [Zetia] 10 mg PO DAILY 30 Days #30 tab 09/15/20 11/17/20 Rx Metoprolol Tartrate [Lopressor] 50 mg PO BID 60 Days #30 tab 09/15/20 11/17/20 Rx Furosemide [Lasix] 40 mg PO DAILY 09/21/20 11/17/20 History Potassium Chloride ER [K-Dur 20] 20 meq PO DAILY 09/21/20 11/17/20 History Spironolactone [Aldactone] 25 mg PO DAILY 09/21/20 11/17/20 History tiZANidine [Zanaflex] 4 mg PO TID PRN 09/21/20 11/17/20 History Isosorbide Mononitrate ER [Imdur] 30 mg PO BID tab.er.24h 10/03/20 11/17/20 Rx Ferrous Sulfate [Iron (65 MG 325 mg PO DAILY 10/18/20 11/17/20 History Elemental)] Folic Acid 1 mg PO DAILY 10/18/20 11/17/20 History Insulin Glargine,Hum.rec.anlog 22 unit SQ BID 10/18/20 11/17/20 History [Lantus Solostar] Levothyroxine Sodium [Synthroid] 200 mcg PO DAILY 10/18/20 11/17/20 History levETIRAcetam [Keppra] 500 mg PO Q12H 10/18/20 11/17/20 History Cholestyramine (with Sugar) 4 gm PO BID@1000,1800 packet 11/04/20 11/17/20 Rx [Questran Packet] Pantoprazole [Protonix] 40 mg PO AC-BRKFST tablet. 11/04/20 11/17/20 Rx HYDROcodone/APAP 10-325MG [[place] 1 tab PO Q6H PRN 11/16/20 11/17/20 History 10-325] INSULIN ASPART (NovoLOG) [NovoLOG See Protocol SQ ACHS 11/16/20 11/17/20 History (formulary)] Allergies Allergy/AdvReac Type Severity Reaction Status Date / Time gabapentin Allergy Severe Anaphylaxis Verified 11/17/20 10:47 shellfish derived [Crab] Allergy Intermediate Rash/Hives Verified 11/17/20 10:47 Physical Exam Vitals: Vital Signs Temp Pulse Pulse Resp BP BP Pulse Ox 11/17/20 11:10 18 11/17/20 10:58 97.7 F 62 18 112/67 96 11/17/20 10:29 98.1 F 68 18 122/58 98 11/17/20 07:14 62 18 124/67 100 11/17/20 06:14 98.5 F 61 20 112/63 100 11/17/20 03:06 59 L 18 108/60 99 11/17/20 00:19 98.6 F 84 18 106/64 100 11/16/20 21:07 86 20 154/79 100 11/16/20 19:59 94 20 152/85 98 11/16/20 19:12 98.7 F 99 20 157/80 99 Intake and Output 11/16/20 11/17/20 11/17/20 22:59 06:59 14:59 Other: Voiding Method Toilet Weight 81.193 kg 81.193 kg Results 11/17/20 09:19 11/17/20 09:36 Cardiac Enzymes 11/16/20 11/16/20 11/16/20 Range/Units 19:41 19:41 22:56 AST 18 (14-36) U/L Troponin I <0.012 <0.012 (0.000-0.034) ng/mL 11/17/20 11/17/20 Range/Units 02:19 09:36 AST 21 (14-36) U/L Troponin I <0.012 (0.000-0.034) ng/mL Coagulation 11/16/20 Range/Units 19:41 PT 9.5 (9.0-12.0) sec APTT 17.8 L (22.0-30.0) sec CBC 11/16/20 11/17/20 Range/Units 19:41 09:19 WBC 5.0 3.7 L (3.8-10.6) k/uL RBC 3.70 L 3.54 L (3.80-5.40) m/uL Hgb 11.7 11.2 L (11.4-16.0) gm/dL Hct 34.1 32.7 L (34.0-46.0) % Plt Count 226 235 (150-450) k/uL Comprehensive Metabolic Panel 11/16/20 11/17/20 Range/Units 19:41 09:36 Sodium 134 L 137 (137-145) mmol/L Potassium 4.2 4.3 (3.5-5.1) mmol/L Chloride 102 106 (98-107) mmol/L Carbon Dioxide 20 L 23 (22-30) mmol/L BUN 26 H 23 H (7-17) mg/dL Creatinine 0.81 0.63 (0.52-1.04) mg/dL Glucose 420 H 175 H (74-99) mg/dL Calcium 9.4 8.8 (8.4-10.2) mg/dL AST 18 21 (14-36) U/L ALT 15 14 (4-34) U/L Alkaline Phosphatase 96 70 (38-126) U/L Total Protein 6.8 6.0 L (6.3-8.2) g/dL Albumin 4.2 3.5 (3.5-5.0) g/dL Current Medications Generic Name Dose Route Start Last Admin Trade Name Freq PRN Reason Stop Dose Admin Acetaminophen 650 mg 11/16/20 20:46 Acetaminophen Tab 325 Mg Tab PO Q6HR PRN Mild Pain or Fever > 100.5 Hydrocodone Bitart/Acetaminophen 1 each 11/17/20 07:13 Hydrocodone/Apap 10-325mg 1 Each Tab PO Q6H PRN Pain Aripiprazole 5 mg 11/17/20 09:00 11/17/20 07:52 Aripiprazole 5 Mg Tab PO 5 mg DAILY CAROLYN Administration Aspirin 81 mg 11/17/20 09:00 11/17/20 07:51 Aspirin 81 Mg PO 81 mg DAILY CAROLYN Administration Atorvastatin Calcium 80 mg 11/17/20 09:00 11/17/20 07:51 Atorvastatin 80 Mg Tab PO 80 mg DAILY CAROLYN Administration Cholestyramine Resin 4 gm 11/17/20 10:00 11/17/20 10:28 Cholestyramine (With Sugar) 4 Gm Packet PO 4 gm BID@1000,1800 CAROLYN Administration Cyclobenzaprine HCl 10 mg 11/16/20 22:00 11/17/20 07:52 Cyclobenzaprine 10 Mg Tab PO 10 mg TID [facility] Administration Ezetimibe 10 mg 11/17/20 09:00 11/17/20 07:52 Ezetimibe 10 Mg Tab PO 10 mg DAILY CAROLYN Administration Ferrous Sulfate 325 mg 11/17/20 09:00 11/17/20 07:52 Ferrous Sulfate 325 Mg Tab PO 325 mg DAILY CAROLYN Administration Folic Acid 1 mg 11/17/20 09:00 11/17/20 07:52 Folic Acid 1 Mg Tab PO 1 mg DAILY CAROLYN Administration Furosemide 40 mg 11/17/20 09:00 11/17/20 07:51 Furosemide 40 Mg Tab PO 40 mg DAILY [facility] Administration Hydroxyzine Pamoate 25 mg 11/16/20 22:00 11/17/20 07:51 Hydroxyzine Pamoate 25 Mg Cap PO 25 mg TID CAROLYN Administration Insulin Aspart 0 unit 11/17/20 12:30 Insulin Aspart (Novolog) 100 Unit/Ml Vial SQ ACHS [facility] Protocol Insulin Detemir 22 unit 11/16/20 21:30 11/17/20 07:09 Insulin Detemir (Levemir) 100 Unit/Ml Syr SQ 22 unit BID@0700,2100 [facility] Administration Isosorbide Mononitrate 30 mg 11/16/20 21:30 11/17/20 07:51 Isosorbide Mononitrate Er 30 Mg Tab.Er.24h PO 30 mg BID CAROLYN Administration Levetiracetam 500 mg 11/16/20 21:30 11/17/20 07:52 Levetiracetam 500 Mg Tab PO 500 mg Q12HR CAROL[facility] Administration Levothyroxine Sodium 200 mcg 11/17/20 06:30 11/17/20 06:54 Levothyroxine 100 Mcg Tab PO 200 mcg DAILY@0630 [facility] Administration Lisinopril 2.5 mg 11/17/20 09:00 11/17/20 07:52 Lisinopril 2.5 Mg Tab PO 2.5 mg DAILY CAROLYN Administration Metoprolol Tartrate 50 mg 11/16/20 21:30 11/17/20 07:52 Metoprolol Tartrate 50 Mg Tab PO 50 mg BID CAROLYN Administration Mirtazapine 45 mg 11/16/20 21:30 11/16/20 22:54 Mirtazapine 45 Mg Tablet PO 45 mg HS CAROLYN Administration Morphine Sulfate 4 mg 11/16/20 20:46 11/17/20 12:05 Morphine Sulfate 4 Mg/Ml Syringe IV 4 mg Q4HR PRN Administration Severe Pain Naloxone HCl 0.2 mg 11/16/20 20:46 Naloxone 0.4 Mg/Ml 1 Ml Vial IV Q2M PRN Opioid Reversal Nitroglycerin 0.4 mg 11/16/20 20:47 Nitroglycerin Sl Tabs 0.4 Mg Tab SUBLINGUAL Q5M PRN Chest Pain Ondansetron HCl 4 mg 11/16/20 20:46 11/17/20 09:40 Ondansetron 4 Mg/2 Ml Vial IVP 4 mg Q8HR PRN Administration Nausea And Vomiting Pantoprazole Sodium 40 mg 11/17/20 07:30 11/17/20 06:54 Pantoprazole 40 Mg Tablet PO 40 mg AC-BRKFST [facility] Administration Quetiapine Fumarate 50 mg 11/16/20 21:30 11/16/20 22:54 Quetiapine 50 Mg Tab PO 50 mg HS CAROLYN Administration Ranolazine 1,000 mg 11/16/20 21:30 11/17/20 07:52 Ranolazine 500 Mg Tab.Er.12h PO 1,000 mg BID CAROLYN Administration Sertraline HCl 50 mg 11/17/20 09:00 11/17/20 07:52 Sertraline 50 Mg Tab PO 50 mg DAILY CAROLYN Administration Spironolactone 25 mg 11/17/20 09:00 11/17/20 07:52 Spironolactone 25 Mg Tab PO 25 mg DAILY CAROLYN Administration Ticagrelor 90 mg 11/16/20 21:30 11/17/20 07:51 Ticagrelor 90 Mg Tab PO 90 mg BID CAROLYN Administration Intake and Output 11/16/20 11/17/20 11/17/20 22:59 06:59 14:59 Other: Voiding Method Toilet Weight 81.193 kg 81.193 kg Patient Weight 11/18/20 06:59 Weight 81.193 kg 11/17/20 09:19 11/17/20 09:36
[2020-11-17] MEDS: INSULIN ASPART (NovoLOG) 100 UNIT/ML VIAL SQ SCH ×3 (12:47→21:13)
--- NOTE | 2020-11-17 14:54 | P.CONS ---
History of Present Illness - Reason for Consult Consult date: 11/17/20 Recent diagnosis of acute colitis Requesting physician: Jerson Aguilar - Chief Complaint Chest pain - History of Present Illness This is a pleasant 55-year-old white female who presented to the hospital yesterday for chest pain which she states was midsternal and continued to last evening after taking nitroglycerin. She states that she gets chest pain about every 2 weeks and can last hours to a week. She is unsure what makes it worse or which makes it better. She denies any history of peptic ulcer disease, dysphagia, or acid reflux. She was recently hospitalized in late October for chest pain as well. At that time also was complaining of abdominal pain and had a computed tomography scan of the abdomen showing thickening of the right and transverse colon. She had a prior episode of colitis and rectal bleeding in July for which she underwent a colonoscopy by which showed sigmoid diverticulosis and small internal hemorrhoids. She states she is having some mild lower abdominal pain in her abdomen that is intermittent and had an episode of small amount of bright red blood. She's had no further episodes. WBC is 3.7, hemoglobin 11.2, hematocrit 32.7, and platelets 235,000. Review of Systems Constitutional: Reports chronic pain Ears, nose, mouth and throat: Denies headache, Denies sore throat Cardiovascular: Reports chest pain Respiratory: Denies cough Gastrointestinal: Reports abdominal pain, Reports BRBPR, Reports hematochezia, Denies change in bowel habits, Denies coffee ground emesis, Denies constipation, Denies diarrhea, Denies dyspepsia, Denies heartburn, Denies indigestion, Denies melena, Denies nausea, Denies vomiting Genitourinary: Denies dysuria, Denies hematuria Musculoskeletal: Denies myalgias Integumentary: Denies pruritus, Denies rash Neurological: Denies numbness, Denies weakness Endocrine: Denies fatigue, Denies weight change Past Medical History Past Medical History: Coronary Artery Disease (CAD), Chest Pain / Angina, COPD, CVA/TIA, Diabetes Mellitus, GERD/Reflux, GI Bleed, Hyperlipidemia, Hypertension, Myocardial Infarction (DE), Musculoskeletal Disorder, Pneumonia, Thyroid Disorder Additional Past Medical History / Comment(s): Pt recently admitted to [facility] on 10/29/20 with abdominal pain/colitis, aphasia/ams/L facial numbness/possible acuteischemic stroke. 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 Last Myocardial Infarction Date:: 2015 History of Any Multi-Drug Resistant Organisms: ESBL Year Discovered:: 08/27/20 MDRO Source:: ESBL URINE Past Surgical History: Appendectomy, Bladder Surgery, Cardiac Valve Replacement, Cholecystectomy, Coronary Bypass/CABG, Heart Catheterization, Heart Catheterization With Stent, Hysterectomy Additional Past Surgical History / Comment(s): 2013 CABG 4 vessel, 2016 mitral valve replacement, PCIs with multiple stents, bilateral leg stents, bladder susupension, colonoscopy. Past Anesthesia/Blood Transfusion Reactions: No Reported Reaction Date of Last Stent Placement:: 06/25/20 Past Psychological History: Anxiety, Bipolar, Depression Additional Psychological History / Comment(s): Pt resides with her maicol Joceline. She uses a walker. She has a glucometer. She is fairly independent. Smoking Status: Current every day smoker Past Alcohol Use History: None Reported Additional Past Alcohol Use History / Comment(s): Pt started smoking in 1981 and is less than a ppd smoker. Past Drug Use History: None Reported - Past Family History Father Family Medical History: Coronary Artery Disease (CAD) Additional Family Medical History / Comment(s): heart disease Mother Family Medical History: Cancer Additional Family Medical History / Comment(s): Lung cancer Medications and Allergies Home Medications Medication Instructions Recorded Confirmed Type ARIPiprazole [Abilify] 5 mg PO DAILY 05/21/20 11/17/20 History Atorvastatin [Lipitor] 80 mg PO DAILY 05/21/20 11/17/20 History Cyclobenzaprine [Flexeril] 10 mg PO TID 05/21/20 11/17/20 History Mirtazapine [Remeron] 45 mg PO HS 05/21/20 11/17/20 History QUEtiapine [SEROquel] 50 mg PO HS 05/21/20 11/17/20 History Ranolazine [Ranexa] 1,000 mg PO BID 05/21/20 11/17/20 History Sertraline [Zoloft] 50 mg PO DAILY 05/21/20 11/17/20 History hydrOXYzine pamoate [Vistaril] 25 mg PO TID 05/21/20 11/17/20 History Loperamide [Imodium] 2 mg PO QID PRN 06/08/20 11/17/20 History Ticagrelor [Brilinta] 90 mg PO BID tab 06/27/20 11/17/20 Rx Aspirin 81 mg PO DAILY chew 08/20/20 11/17/20 Rx lisinopriL [Zestril] 2.5 mg PO DAILY tab 08/20/20 11/17/20 Rx Nitroglycerin Sl Tabs [Nitrostat] 0.4 mg SL Q5M PRN 09/13/20 11/17/20 History Ezetimibe [Zetia] 10 mg PO DAILY 30 Days #30 tab 09/15/20 11/17/20 Rx Metoprolol Tartrate [Lopressor] 50 mg PO BID 60 Days #30 tab 09/15/20 11/17/20 Rx Furosemide [Lasix] 40 mg PO DAILY 09/21/20 11/17/20 History Potassium Chloride ER [K-Dur 20] 20 meq PO DAILY 09/21/20 11/17/20 History Spironolactone [Aldactone] 25 mg PO DAILY 09/21/20 11/17/20 History tiZANidine [Zanaflex] 4 mg PO TID PRN 09/21/20 11/17/20 History Isosorbide Mononitrate ER [Imdur] 30 mg PO BID tab.er.24h 10/03/20 11/17/20 Rx Ferrous Sulfate [Iron (65 MG 325 mg PO DAILY 10/18/20 11/17/20 History Elemental)] Folic Acid 1 mg PO DAILY 10/18/20 11/17/20 History Insulin Glargine,Hum.rec.anlog 22 unit SQ BID 10/18/20 11/17/20 History [Lantus Solostar] Levothyroxine Sodium [Synthroid] 200 mcg PO DAILY 10/18/20 11/17/20 History levETIRAcetam [Keppra] 500 mg PO Q12H 10/18/20 11/17/20 History Cholestyramine (with Sugar) 4 gm PO BID@1000,1800 packet 11/04/20 11/17/20 Rx [Questran Packet] Pantoprazole [Protonix] 40 mg PO AC-BRKFST tablet. 11/04/20 11/17/20 Rx HYDROcodone/APAP 10-325MG [Reform 1 tab PO Q6H PRN 11/16/20 11/17/20 History 10-325] INSULIN ASPART (NovoLOG) [NovoLOG See Protocol SQ ACHS 11/16/20 11/17/20 History (formulary)] Allergies Allergy/AdvReac Type Severity Reaction Status Date / Time gabapentin Allergy Severe Anaphylaxis Verified 11/17/20 10:47 shellfish derived [Crab] Allergy Intermediate Rash/Hives Verified 11/17/20 10:47 Physical Exam Vitals: Vital Signs Temp Pulse Pulse Resp BP BP Pulse Ox 11/17/20 11:10 18 11/17/20 10:58 97.7 F 62 18 112/67 96 11/17/20 10:29 98.1 F 68 18 122/58 98 11/17/20 07:14 62 18 124/67 100 11/17/20 06:14 98.5 F 61 20 112/63 100 11/17/20 03:06 59 L 18 108/60 99 11/17/20 00:19 98.6 F 84 18 106/64 100 11/16/20 21:07 86 20 154/79 100 11/16/20 19:59 94 20 152/85 98 11/16/20 19:12 98.7 F 99 20 157/80 99 Intake and Output 11/16/20 11/17/20 11/17/20 22:59 06:59 14:59 Intake Total 200 Balance 200 Intake: Oral 200 Other: Voiding Method Toilet Weight 81.193 kg 81.193 kg General appearance: The patient is alert, oriented, appears in no acute distress. Obese. HET: Head is normocephalic and atraumatic. Oropharynx is clear without lesions. Neck: Supple without lymphadenopathy. Trachea midline. Heart: S1 S2. Regular rate and rhythm. Lungs: Clear to auscultation Abdomen: Soft, nontender, nondistended with bowel sounds. No guarding or rigidity. Extremities: Normal skin color and turgor. No pedal edema. Neurological: No focal deficits. Alert and oriented 3. Results CBC & Chem 7: 11/17/20 09:19 11/17/20 09:36 Labs: Abnormal Lab Results - Last 24 Hours (Table) 11/16/20 11/16/20 11/16/20 Range/Units 19:41 19:41 19:41 WBC (3.8-10.6) k/uL RBC 3.70 L (3.80-5.40) m/uL Hgb (11.4-16.0) gm/dL Hct (34.0-46.0) % Lymphocytes # (1.0-4.8) k/uL APTT 17.8 L (22.0-30.0) sec Sodium 134 L (137-145) mmol/L Carbon Dioxide 20 L (22-30) mmol/L BUN 26 H (7-17) mg/dL Glucose 420 H (74-99) mg/dL POC Glucose (mg/dL) (75-99) mg/dL Total Protein (6.3-8.2) g/dL 11/17/20 11/17/20 11/17/20 Range/Units 00:12 06:28 09:19 WBC 3.7 L (3.8-10.6) k/uL RBC 3.54 L (3.80-5.40) m/uL Hgb 11.2 L (11.4-16.0) gm/dL Hct 32.7 L (34.0-46.0) % Lymphocytes # 0.9 L (1.0-4.8) k/uL APTT (22.0-30.0) sec Sodium (137-145) mmol/L Carbon Dioxide (22-30) mmol/L BUN (7-17) mg/dL Glucose (74-99) mg/dL POC Glucose (mg/dL) 323 H 227 H (75-99) mg/dL Total Protein (6.3-8.2) g/dL 11/17/20 11/17/20 Range/Units 09:36 12:31 WBC (3.8-10.6) k/uL RBC (3.80-5.40) m/uL Hgb (11.4-16.0) gm/dL Hct (34.0-46.0) % Lymphocytes # (1.0-4.8) k/uL APTT (22.0-30.0) sec Sodium (137-145) mmol/L Carbon Dioxide (22-30) mmol/L BUN 23 H (7-17) mg/dL Glucose 175 H (74-99) mg/dL POC Glucose (mg/dL) 148 H (75-99) mg/dL Total Protein 6.0 L (6.3-8.2) g/dL Assessment and Plan (1) Abdominal pain Narrative/Plan: 55-year-old female who presented to the emergency room with complaints of chest pain. She states she gets chest pain about every 2 weeks. She denies any history of peptic ulcer disease, GERD, dysphasia, or nausea or vomiting. She recently was hospitalized with acute colitis and treated with antibiotics. She had a similar episode in July and underwent a colonoscopy showing sigmoid diverticulosis and small internal hemorrhoids. She states she still has some occasional mild cramping in her lower abdomen, and had a reported small amount of blood with stool 1. Does have some prior history of constipation with straining. She's had no further episodes of bleeding. Cardiology has seen and clear patient from a cardiology standpoint. Patient may have had some bleeding related to previous colitis and/or internal hemorrhoids. No plans for endoscopic evaluation patient had recent endoscopy earlier this year. Current Visit: No Status: Acute Code(s): R10.9 - UNSPECIFIED ABDOMINAL PAIN SNOMED Code(s): 24273226 (2) Hematochezia Current Visit: No Status: Acute Code(s): K92.1 - MELENA SNOMED Code(s): 274899501 (3) Chest pain Current Visit: Yes Status: Acute Code(s): R07.9 - CHEST PAIN, UNSPECIFIED SNOMED Code(s): 29403339 Plan: 1. Continue symptomatic and supportive care 2. Diet as tolerated 3. Protonix increased to 40 mg twice a day 4. No plans for any endoscopic evaluation as patient recently had colonoscopy earlier this year with evidence of diverticulosis and small internal hemorrhoids Thank you for this consultation, we will continue to follow Dr. David Fuentes I agree with the dictator's note, documented as a scribe by Maria Alejandra Manzanares.
[2020-11-17] MEDS ORDERED: SODIUM CHLORIDE 0.9% 1,000 ML IV SCH (17:15)
[2020-11-17 17:33] LABS: Glucose,Whole Blood 97 mg/dL (75-99)
[2020-11-17] MEDS: PANTOPRAZOLE 40 MG TABLET PO SCH (18:05)
[2020-11-17 21:04] LABS: Glucose,Whole Blood 239 mg/dL (75-99)
[2020-11-17] MEDS: MIRTAZAPINE 45 MG TABLET PO SCH (21:13)
[2020-11-17] MEDS: QUEtiapine 50 MG TAB PO SCH (21:13)
[2020-11-18 01:20] VITALS: RESP 16
[2020-11-18] MEDS: MORPHINE SULFATE 4 MG/ML SYRINGE IV PRN ×3 (02:39→11:26)
[2020-11-18 06:46] LABS: Glucose,Whole Blood 112 mg/dL (75-99)
[2020-11-18] MEDS: INSULIN ASPART (NovoLOG) 100 UNIT/ML VIAL SQ SCH ×2 (06:46→12:20)
[2020-11-18] MEDS: INSULIN DETEMIR (LEVEMIR) 100 UNIT/ML SYR SQ SCH (06:48)
[2020-11-18] MEDS: PANTOPRAZOLE 40 MG TABLET PO SCH (06:48)
[2020-11-18] MEDS: LEVOTHYROXINE 100 MCG TAB PO SCH (06:48)
[2020-11-18 09:00] VITALS: BP 120/76; PULSE 80; TEMP 98.5
[2020-11-18] MEDS: EZETIMIBE 10 MG TAB PO SCH (09:42)
[2020-11-18] MEDS: CYCLOBENZAPRINE 10 MG TAB PO SCH (09:42)
[2020-11-18] MEDS: FERROUS SULFATE 325 MG TAB PO SCH (09:42)
[2020-11-18] MEDS: CHOLESTYRAMINE (WITH SUGAR) 4 GM PACKET PO SCH (09:42)
[2020-11-18] MEDS: SERTRALINE 50 MG TAB PO SCH (09:43)
[2020-11-18] MEDS: ASPIRIN 81 MG PO SCH (09:43)
[2020-11-18] MEDS: ARIPiprazole 5 MG TAB PO SCH (09:43)
[2020-11-18] MEDS: FUROSEMIDE 40 MG TAB PO SCH (09:43)
[2020-11-18] MEDS: RANOLAZINE 500 MG TAB.ER.12H PO SCH (09:43)
[2020-11-18] MEDS: ATORVASTATIN 80 MG TAB PO SCH (09:44)
[2020-11-18] MEDS: TICAGRELOR 90 MG TAB PO SCH (09:44)
[2020-11-18] MEDS: SPIRONOLACTONE 25 MG TAB PO SCH (09:44)
[2020-11-18] MEDS: ISOSORBIDE MONONITRATE ER 30 MG TAB.ER.24H PO SCH (09:44)
[2020-11-18] MEDS: METOPROLOL TARTRATE 50 MG TAB PO SCH (09:44)
[2020-11-18] MEDS: levETIRAcetam 500 MG TAB PO SCH (09:44)
[2020-11-18] MEDS: FOLIC ACID 1 MG TAB PO SCH (09:45)
[2020-11-18] MEDS: hydrOXYzine pamoate 25 MG CAP PO SCH (09:45)
[2020-11-18] MEDS ORDERED: bisacodyL 5 MG TABLET.DR PO STA (09:59)
--- NOTE | 2020-11-18 11:59 | P.PN ---
Subjective Progress Note Date: 11/18/20 Principal diagnosis: Abdominal pain This is pleasant 55-year-old white female who presented to the emergency department with complaints of chest pain. She was seen by cardiology for which they signed off as she had no evidence of acute coronary event. Gastroenterology was asked to see the patient and she had a previous hospitalization for acute colitis and was complaining of some abdominal pain. The patient states she has not had a bowel movement in 1 week, and she has been having issues with constipation for over a month now. She does not take anything at home to help her have a bowel movement. States she has some lower abdominal pain and cramping but nothing severe. Denies any bleeding from the rectum. States she's having some mild chest pain again this morning. She denies any nausea or vomiting and is tolerating a regular diet. Objective - Vital Signs Vital signs: Vital Signs Temp 98.5 F 11/18/20 07:00 Pulse 80 11/18/20 07:00 Resp 16 11/18/20 07:00 BP 120/76 11/18/20 07:00 Pulse Ox 100 11/18/20 07:00 Intake & Output 11/17/20 11/18/20 11/18/20 18:59 06:59 18:59 Intake Total 200 980 Balance 200 980 Weight 81.193 kg Intake: Intake, IV Titration 200 Amount Sodium Chloride 0.9% 1, 200 000 ml @ 20 mls/hr IV . Q24H [facility] Rx#:[id number] Oral 200 780 Other: Voiding Method Toilet # Voids 1 - Exam General appearance: The patient is alert, oriented, appears in no acute distress. HET: Head is normocephalic and atraumatic. Conjunctiva pink. Sclera anicteric. Neck: Supple without lymphadenopathy. Abdomen: Soft, mild lower abdominal tenderness, nondistended with bowel sounds. No guarding or rigidity. Extremities: Normal skin color and turgor. No pedal edema Skin: No rashes, no jaundice Neurological: No focal deficits. Alert and oriented 3. - Labs CBC & Chem 7: 11/17/20 09:19 11/17/20 09:36 Labs: Abnormal Lab Results - Last 24 Hours (Table) 11/17/20 11/17/20 11/17/20 Range/Units 09:19 09:36 12:31 WBC 3.7 L (3.8-10.6) k/uL RBC 3.54 L (3.80-5.40) m/uL Hgb 11.2 L (11.4-16.0) gm/dL Hct 32.7 L (34.0-46.0) % Lymphocytes # 0.9 L (1.0-4.8) k/uL BUN 23 H (7-17) mg/dL Glucose 175 H (74-99) mg/dL POC Glucose (mg/dL) 148 H (75-99) mg/dL Total Protein 6.0 L (6.3-8.2) g/dL 11/17/20 11/18/20 Range/Units 21:03 06:45 WBC (3.8-10.6) k/uL RBC (3.80-5.40) m/uL Hgb (11.4-16.0) gm/dL Hct (34.0-46.0) % Lymphocytes # (1.0-4.8) k/uL BUN (7-17) mg/dL Glucose (74-99) mg/dL POC Glucose (mg/dL) 239 H 112 H (75-99) mg/dL Total Protein (6.3-8.2) g/dL Assessment and Plan (1) Abdominal pain Narrative/Plan: 55-year-old female who presented to the emergency room with complaints of chest pain. She states she gets chest pain about every 2 weeks. She denies any histo ry of peptic ulcer disease, GERD, dysphasia, or nausea or vomiting. She recently was hospitalized with acute colitis and treated with antibiotics. She had a similar episode in July and underwent a colonoscopy showing sigmoid diverticulosis and small internal hemorrhoids. She states she still has some occasional mild cramping in her lower abdomen, and had a reported small amount of blood with stool 1. Does have some prior history of constipation with straining. She's had no further episodes of bleeding. Cardiology has seen and clear patient from a cardiology standpoint. Patient may have had some bleeding related to previous colitis and/or internal hemorrhoids due to constipation. No plans for endoscopic evaluation patient had recent endoscopy earlier this year. Current Visit: No Status: Acute Code(s): R10.9 - UNSPECIFIED ABDOMINAL PAIN SNOMED Code(s): 84474938 (2) Hematochezia Current Visit: No Status: Acute Code(s): K92.1 - MELENA SNOMED Code(s): 487177910 (3) Chest pain Current Visit: Yes Status: Acute Code(s): R07.9 - CHEST PAIN, UNSPECIFIED SNOMED Code(s): 92522683 Plan: 1. Continue symptomatic and supportive care 2. Diet as tolerated 3. Protonix increased to 40 mg twice a day 4. Dulcolax 10 mg by mouth 1 5. MiraLAX daily, discussed with patient may titrate up to twice daily as needed for constipation 6. No plans for any endoscopic evaluation as patient recently had colonoscopy earlier this year with evidence of diverticulosis and small internal hemorrhoids Thank you for this consultation, she is cleared for discharge from a gastroenterology standpoint Dr. David Fuentes I agree with the dictator's note, documented as a scribe by Maria Alejandra PERLA .
[2020-11-18 12:12] LABS: Glucose,Whole Blood 123 mg/dL (75-99)
--- NOTE | 2020-11-18 13:26 | P.DS ---
Providers Date of admission: 11/16/20 20:46 Expected date of discharge: 11/18/20 Attending physician: Jerson Aguilar Consults: 11/17/20 12:36 Consult Physician Routine Consulting Provider: Michelle Fuentse Consult Reason/Comments: Recent colitis possible GI bleed Do you want consulting provider notified?: Yes Primary care physician: Jerson Lauren [facility] Course: Diagnoses on Discharge: 1. Chest pain. Troponins negative 3. Chest x-ray negative. Cardiology services have been consulted 2. Recent episode of colitis. Patient was treated with IV antibiotics evaluated by GI services and infectious disease 3. History of coronary artery disease with multiple angioplasty and stent placement and history of coronary artery bypass graft surgery 4. History of essential hypertension 5. History of hyperlipidemia 6. History of insulin-dependent diabetes mellitus 7. History of hypothyroidism 8. History of nicotine dependence. Patient educated greater than 5 minutes smoking cessation 9. History of seizure disorder maintained on [facility] course: This is a 55-year-old female patient well known to my services. Patient presented to the ER with complaints of chest pain. Patient has past medical history of extensive coronary artery disease including multiple stents and recent catheterization. Patient reports she has been taking her medications as prescribed. Patient reports a sharp chest pain that started last night without relief of nitroglycerin. Patient was recently admitted and treated for colitis and discharged to rehab. Additional medical history includes COPD, CVA, diabetes mellitus, GERD, GI bleed, hyperlipidemia, hypertension, myocardial infarction, might of still skeletal disorder, pneumonia, thyroid disorder. Chest x-ray completed showing no acute process. EKG showing normal sinus rhythm. Blood sugars upon arrival 323. Troponins negative 3. At this time cardiology services will be consulted. Patient is still complaining of chest pain. Patient denies nausea vomiting or diarrhea. Denies shortness breath. Patient denies any urinary burning or frequency. On 11/18/2020 patient was seen and examined on the medical floor she is alert and oriented 3 in no apparent distress there is no fever or chills no headache or dizziness no chest pain no shortness of breath no cough no nausea or vomiting no abdominal pain no diarrhea no blood in the stools no burning with urination no frequency or urgency and no hematuria. Recommendation from cardiology and gastroenterology reviewed patient is clinically stable she will be discharged home today she will be followed in our office within 1 week Patient Condition at Discharge: Stable Plan - Discharge Summary Discharge Rx Participant: No New Discharge Prescriptions: New Pantoprazole [Protonix] 40 mg PO AC-BID tablet.dr Continue Sertraline [Zoloft] 50 mg PO DAILY Ranolazine [Ranexa] 1,000 mg PO BID QUEtiapine [SEROquel] 50 mg PO HS Mirtazapine [Remeron] 45 mg PO HS hydrOXYzine pamoate [Vistaril] 25 mg PO TID Cyclobenzaprine [Flexeril] 10 mg PO TID Atorvastatin [Lipitor] 80 mg PO DAILY ARIPiprazole [Abilify] 5 mg PO DAILY Loperamide [Imodium] 2 mg PO QID PRN PRN Reason: Diarrhea Ticagrelor [Brilinta] 90 mg PO BID tab Aspirin 81 mg PO DAILY chew lisinopriL [Zestril] 2.5 mg PO DAILY tab Nitroglycerin Sl Tabs [Nitrostat] 0.4 mg SL Q5M PRN PRN Reason: Chest Pain Metoprolol Tartrate [Lopressor] 50 mg PO BID 60 Days #30 tab Ezetimibe [Zetia] 10 mg PO DAILY 30 Days #30 tab Spironolactone [Aldactone] 25 mg PO DAILY Potassium Chloride ER [K-Dur 20] 20 meq PO DAILY Furosemide [Lasix] 40 mg PO DAILY levETIRAcetam [Keppra] 500 mg PO Q12H Folic Acid 1 mg PO DAILY Cholestyramine (with Sugar) [Questran Packet] 4 gm PO BID@1000,1800 packet Isosorbide Mononitrate ER [Imdur] 30 mg PO BID tab.er.24h Ferrous Sulfate [Iron (65 MG Elemental)] 325 mg PO DAILY Levothyroxine Sodium [Synthroid] 200 mcg PO DAILY Insulin Glargine,Hum.rec.anlog [Lantus Solostar] 22 unit SQ BID INSULIN ASPART (NovoLOG) [NovoLOG (formulary)] See Protocol SQ ACHS HYDROcodone/APAP 10-325MG [[place] 10-325] 1 tab PO Q6H PRN PRN Reason: Pain Discontinued tiZANidine [Zanaflex] 4 mg PO TID PRN PRN Reason: Muscle Pain Pantoprazole [Protonix] 40 mg PO AC-BRKFST tablet.dr Discharge Medication List ARIPiprazole [Abilify] 5 mg PO DAILY 05/21/20 [History] Atorvastatin [Lipitor] 80 mg PO DAILY 05/21/20 [History] Cyclobenzaprine [Flexeril] 10 mg PO TID 05/21/20 [History] Mirtazapine [Remeron] 45 mg PO HS 05/21/20 [History] QUEtiapine [SEROquel] 50 mg PO HS 05/21/20 [History] Ranolazine [Ranexa] 1,000 mg PO BID 05/21/20 [History] Sertraline [Zoloft] 50 mg PO DAILY 05/21/20 [History] hydrOXYzine pamoate [Vistaril] 25 mg PO TID 05/21/20 [History] Loperamide [Imodium] 2 mg PO QID PRN 06/08/20 [History] Ticagrelor [Brilinta] 90 mg PO BID tab 06/27/20 [Rx] Aspirin 81 mg PO DAILY chew 08/20/20 [Rx] lisinopriL [Zestril] 2.5 mg PO DAILY tab 08/20/20 [Rx] Nitroglycerin Sl Tabs [Nitrostat] 0.4 mg SL Q5M PRN 09/13/20 [History] Ezetimibe [Zetia] 10 mg PO DAILY 30 Days #30 tab 09/15/20 [Rx] Metoprolol Tartrate [Lopressor] 50 mg PO BID 60 Days #30 tab 09/15/20 [Rx] Furosemide [Lasix] 40 mg PO DAILY 09/21/20 [History] Potassium Chloride ER [K-Dur 20] 20 meq PO DAILY 09/21/20 [History] Spironolactone [Aldactone] 25 mg PO DAILY 09/21/20 [History] Isosorbide Mononitrate ER [Imdur] 30 mg PO BID tab.er.24h 10/03/20 [Rx] Ferrous Sulfate [Iron (65 MG Elemental)] 325 mg PO DAILY 10/18/20 [History] Folic Acid 1 mg PO DAILY 10/18/20 [History] Insulin Glargine,Hum.rec.anlog [Lantus Solostar] 22 unit SQ BID 10/18/20 [History] Levothyroxine Sodium [Synthroid] 200 mcg PO DAILY 10/18/20 [History] levETIRAcetam [Keppra] 500 mg PO Q12H 10/18/20 [History] Cholestyramine (with Sugar) [Questran Packet] 4 gm PO BID@1000,1800 packet 11/04/20 [Rx] HYDROcodone/APAP 10-325MG [[place] 10-325] 1 tab PO Q6H PRN 11/16/20 [History] INSULIN ASPART (NovoLOG) [NovoLOG (formulary)] See Protocol SQ ACHS 11/16/20 [History] Pantoprazole [Protonix] 40 mg PO AC-BID tablet. 11/18/20 [Rx] Follow up Appointment(s)/Referral(s): Jerson Aguilar MD [Primary Care Provider] - 1-2 days Activity/Diet/Wound Care/Special Instructions: FOLLOW UP WITH YOUR FAMILY DR IN THE NEXT COUPLE DAYS. YOUR NORCO CANNOT BE REFILLED AT THIS TIME BECAUSE IT WAS FILLED October. ANY WORSENING SYMPTOMS, CHEST PAIN, DIFFICULTY BREATHING RETURN TO THE ER.
[2020-11-19] MEDS ORDERED: polyethylene glycoL 3350 17 GM POWD.PACK PO SCH (09:00)
== END 2020-11-18 16:27 ==
LOC: EC 19:09 → 6NMEDSUR 20:46 → 6PED 11-17 10:14
PROVIDERS: ADMIT Internal Medicine; ATTEND Internal Medicine
DX: R07.89 Other chest pain (principal); I25.10 Atherosclerotic heart disease of native coronary artery without angina pectoris; K52.9 Noninfective gastroenteritis and colitis, unspecified; E11.65 Type 2 diabetes mellitus with hyperglycemia; E11.51 Type 2 diabetes mellitus with diabetic peripheral angiopathy without gangrene; E11.42 Type 2 diabetes mellitus with diabetic polyneuropathy; G35 Multiple sclerosis; E78.5 Hyperlipidemia, unspecified; I10 Essential (primary) hypertension; J44.9 Chronic obstructive pulmonary disease, unspecified; K21.9 Gastro-esophageal reflux disease without esophagitis; E03.9 Hypothyroidism, unspecified; D64.9 Anemia, unspecified; F17.210 Nicotine dependence, cigarettes, uncomplicated; K57.30 Diverticulosis of large intestine without perforation or abscess without bleeding; K64.8 Other hemorrhoids; I69.954 Hemiplegia and hemiparesis following unspecified cerebrovascular disease affecting left non-dominant side; G40.909 Epilepsy, unspecified, not intractable, without status epilepticus; G89.29 Other chronic pain; M54.9 Dorsalgia, unspecified; K59.00 Constipation, unspecified; F31.9 Bipolar disorder, unspecified; F41.9 Anxiety disorder, unspecified; E66.9 Obesity, unspecified; Z68.30 Body mass index [BMI] 30.0-30.9, adult; Z20.822 Contact with and (suspected) exposure to COVID-19; Z79.890 Hormone replacement therapy; Z79.4 Long term (current) use of insulin; Z79.891 Long term (current) use of opiate analgesic; Z79.82 Long term (current) use of aspirin; Z79.02 Long term (current) use of antithrombotics/antiplatelets; Z79.899 Other long term (current) drug therapy; Z88.8 Allergy status to other drugs, medicaments and biological substances; Z91.013 Allergy to seafood; Z95.5 Presence of coronary angioplasty implant and graft; Z16.24 Resistance to multiple antibiotics; I25.2 Old myocardial infarction; Z87.19 Personal history of other diseases of the digestive system; Z87.01 Personal history of pneumonia (recurrent); Z95.3 Presence of xenogenic heart valve; Z90.49 Acquired absence of other specified parts of digestive tract; Z90.710 Acquired absence of both cervix and uterus; Z95.828 Presence of other vascular implants and grafts; Z98.890 Other specified postprocedural states; Z95.1 Presence of aortocoronary bypass graft; Z82.49 Family history of ischemic heart disease and other diseases of the circulatory system; Z80.1 Family history of malignant neoplasm of trachea, bronchus and lung
CPT/HCPCS: 96376 ×3; 96361; 96374; 96375; 99285; 36415; 93005; 80053 ×2; 83690; 83735; 84484 ×2; 85025 ×2; 85610; 85730; 87636; 71045; G0378 ×4; J2270 ×3; J2405 ×2

== ENCOUNTER 2020-11-22 16:43 | Observation (INO) | payer MEDICARE, OTHER ==
--- NOTE | 2020-11-22 17:07 | ED ---
General Adult HPI - General Chief complaint: Chest Pain Stated complaint: chest pain Time Seen by Provider: 11/22/20 16:47 Source: patient, EMS Mode of arrival: ambulatory Limitations: physical limitation - History of Present Illness Initial comments: Dictation was produced using [employer] dictation software. please excuse any grammatical, word or spelling errors. This patient was cared for during a federal and state declared state of emergency secondary to Covid 19 Chief Complaint: 55-year-old female with extensive history of coronary artery disease presents to the emergency department for chest pain History of Present Illness: She is a 55-year-old female she states she has 30 stents in her coronary arteries. Patient states she's having chest pain that started today. She took 6 nitro's and 6 baby aspirins with no relief of her symptoms. 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 She states that her symptoms are of chest pressure with diaphoresis. No radiation to the shoulders or jaw. States it reminds her of the heart attack she is expressing the past. The ROS documented in this emergency department record has been reviewed and confirmed by me. Those systems with pertinent positive or negative responses have been documented in the HPI. All other systems are other negative and/or noncontributory. PHYSICAL EXAM: General Impression: Alert and oriented x3, not in acute distress HEENT: Normocephalic atraumatic, extra-ocular movements intact, pupils equal and reactive to light bilaterally, mucous membranes moist. Cardiovascular: Heart regular rate and rhythm Chest: Able to complete full sentences, no retractions, no tachypnea Abdomen: abdomen soft, non-tender, non-distended, no organomegaly Musculoskeletal: Pulses present and equal in all extremities, no peripheral edema Motor: no focal deficits noted Neurological: CN II-XII grossly intact, no focal motor or sensory deficits noted Skin: Intact with no visualized rashes Psych: Normal affect and mood ED course: 55-year-old male presents to the emergency department for chest pain concerning for acute coronary syndrome. As upon arrival are within acceptable limits. EKG is benign. No signs of ischemia or infarction. Patient told. Bedside she does not appear to be in any acute distress. Laboratory evaluation obtained CBC, coag panel, metabolic panel is unremarkable. Troponin is negative. Chest x-ray is nonacute. Patient reevaluated at bedside stable medical condition. Patient be admitted for cardiac monitoring, cardiac consultation. Patient given aspirin. She was agreeable plan. Case discussed with Dr. Aguilar EKG interpretation: Ventricular rate 77, normal sinus rhythm, MN interval 154, QRS 92, QTC 477. No MN prolongation, no QTC prolongation, no ST or T-wave changes noted. EKG compared to 11/16/2020 showing no changes. Overall, this EKG is unremarkable - Related Data Home Medications Medication Instructions Recorded Confirmed ARIPiprazole [Abilify] 5 mg PO DAILY 05/21/20 11/17/20 Atorvastatin [Lipitor] 80 mg PO DAILY 05/21/20 11/17/20 Cyclobenzaprine [Flexeril] 10 mg PO TID 05/21/20 11/17/20 Mirtazapine [Remeron] 45 mg PO HS 05/21/20 11/17/20 QUEtiapine [SEROquel] 50 mg PO HS 05/21/20 11/17/20 Ranolazine [Ranexa] 1,000 mg PO BID 05/21/20 11/17/20 Sertraline [Zoloft] 50 mg PO DAILY 05/21/20 11/17/20 hydrOXYzine pamoate [Vistaril] 25 mg PO TID 05/21/20 11/17/20 Loperamide [Imodium] 2 mg PO QID PRN 06/08/20 11/17/20 Nitroglycerin Sl Tabs [Nitrostat] 0.4 mg SL Q5M PRN 09/13/20 11/17/20 Furosemide [Lasix] 40 mg PO DAILY 09/21/20 11/17/20 Potassium Chloride ER [K-Dur 20] 20 meq PO DAILY 09/21/20 11/17/20 Spironolactone [Aldactone] 25 mg PO DAILY 09/21/20 11/17/20 Ferrous Sulfate [Iron (65 MG 325 mg PO DAILY 10/18/20 11/17/20 Elemental)] Folic Acid 1 mg PO DAILY 10/18/20 11/17/20 Insulin Glargine,Hum.rec.anlog 22 unit SQ BID 10/18/20 11/17/20 [Lantus Solostar] Levothyroxine Sodium [Synthroid] 200 mcg PO DAILY 10/18/20 11/17/20 levETIRAcetam [Keppra] 500 mg PO Q12H 10/18/20 11/17/20 HYDROcodone/APAP 10-325MG [[place] 1 tab PO Q6H PRN 11/16/20 11/17/20 10-325] INSULIN ASPART (NovoLOG) [NovoLOG See Protocol SQ ACHS 11/16/20 11/17/20 (formulary)] Previous Rx's Medication Instructions Recorded Ticagrelor [Brilinta] 90 mg PO BID tab 06/27/20 Aspirin 81 mg PO DAILY chew 08/20/20 lisinopriL [Zestril] 2.5 mg PO DAILY tab 08/20/20 Ezetimibe [Zetia] 10 mg PO DAILY 30 Days #30 tab 09/15/20 Metoprolol Tartrate [Lopressor] 50 mg PO BID 60 Days #30 tab 09/15/20 Isosorbide Mononitrate ER [Imdur] 30 mg PO BID tab.er.24h 10/03/20 Cholestyramine (with Sugar) 4 gm PO BID@1000,1800 packet 11/04/20 [Questran Packet] Pantoprazole [Protonix] 40 mg PO AC-BID tablet. 11/18/20 Allergies Allergy/AdvReac Type Severity Reaction Status Date / Time gabapentin Allergy Severe Anaphylaxis Verified 11/22/20 16:46 shellfish derived [Crab] Allergy Intermediate Rash/Hives Verified 11/22/20 16:46 Review of Systems ROS Statement: Those systems with pertinent positive or pertinent negative responses have been documented in the HPI. ROS Other: All systems not noted in ROS Statement are negative. Past Medical History Past Medical History: Coronary Artery Disease (CAD), Chest Pain / Angina, COPD, CVA/TIA, Diabetes Mellitus, GERD/Reflux, GI Bleed, Hyperlipidemia, Hypertension, Myocardial Infarction ([place]), Musculoskeletal Disorder, Pneumonia, Thyroid Disorder Additional Past Medical History / Comment(s): Pt recently admitted to [facility] on 10/29/20 with abdominal pain/colitis, aphasia/ams/L facial numbness/possible acuteischemic stroke. 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 Last Myocardial Infarction Date:: 2016 History of Any Multi-Drug Resistant Organisms: ESBL Date of last positivie culture/infection: 08/27/20 MDRO Source:: ESBL URINE Past Surgical History: Appendectomy, Bladder Surgery, Cardiac Valve Replacement, Cholecystectomy, Coronary Bypass/CABG, Heart Catheterization, Heart Catheterization With Stent, Hysterectomy Additional Past Surgical History / Comment(s): 2013 CABG 4 vessel, 2016 mitral valve replacement, PCIs with multiple stents, bilateral leg stents, bladder susupension, colonoscopy. Past Anesthesia/Blood Transfusion Reactions: No Reported Reaction Date of Last Stent Placement:: 06/25/20 Past Psychological History: Anxiety, Bipolar, Depression Smoking Status: Current every day smoker Past Alcohol Use History: None Reported Past Drug Use History: None Reported - Past Family History Father Family Medical History: Coronary Artery Disease (CAD) Additional Family Medical History / Comment(s): heart disease Mother Family Medical History: Cancer Additional Family Medical History / Comment(s): Lung cancer General Exam Limitations: physical limitation Course Vital Signs 11/22/20 11/22/20 16:46 17:59 Temperature 98.7 F Pulse Rate 77 73 Respiratory 20 20 Rate Blood Pressure 150/76 131/76 O2 Sat by Pulse 97 99 Oximetry Medical Decision Making - Lab Data Result diagrams: 11/22/20 17:07 11/22/20 17:07 Lab Results 11/22/20 11/22/20 11/22/20 Range/Units 17:07 17:07 17:07 WBC 4.6 (3.8-10.6) k/uL RBC 3.75 L (3.80-5.40) m/uL Hgb 11.7 (11.4-16.0) gm/dL Hct 35.0 (34.0-46.0) % MCV 93.2 (80.0-100.0) fL MCH 31.3 (25.0-35.0) pg MCHC 33.5 (31.0-37.0) g/dL RDW 13.4 (11.5-15.5) % Plt Count 232 (150-450) k/uL MPV 6.8 Neutrophils % 69 % Lymphocytes % 23 % Monocytes % 5 % Eosinophils % 2 % Basophils % 0 % Neutrophils # 3.1 (1.3-7.7) k/uL Lymphocytes # 1.1 (1.0-4.8) k/uL Monocytes # 0.2 (0-1.0) k/uL Eosinophils # 0.1 (0-0.7) k/uL Basophils # 0.0 (0-0.2) k/uL PT 9.4 (9.0-12.0) sec INR 0.9 (<1.2) APTT 20.8 L (22.0-30.0) sec Sodium 134 L (137-145) mmol/L Potassium 4.0 (3.5-5.1) mmol/L Chloride 104 (98-107) mmol/L Carbon Dioxide 20 L (22-30) mmol/L Anion Gap 10 mmol/L BUN 13 (7-17) mg/dL Creatinine 0.70 (0.52-1.04) mg/dL Est GFR (CKD-EPI)AfAm >90 (>60 ml/min/1.73 sqM) Est GFR (CKD-EPI)NonAf >90 (>60 ml/min/1.73 sqM) Glucose 419 H (74-99) mg/dL Calcium 8.9 (8.4-10.2) mg/dL Troponin I (0.000-0.034) ng/mL 11/22/20 Range/Units 17:07 WBC (3.8-10.6) k/uL RBC (3.80-5.40) m/uL Hgb (11.4-16.0) gm/dL Hct (34.0-46.0) % MCV (80.0-100.0) fL MCH (25.0-35.0) pg MCHC (31.0-37.0) g/dL RDW (11.5-15.5) % Plt Count (150-450) k/uL MPV Neutrophils % % Lymphocytes % % Monocytes % % Eosinophils % % Basophils % % Neutrophils # (1.3-7.7) k/uL Lymphocytes # (1.0-4.8) k/uL Monocytes # (0-1.0) k/uL Eosinophils # (0-0.7) k/uL Basophils # (0-0.2) k/uL PT (9.0-12.0) sec INR (<1.2) APTT (22.0-30.0) sec Sodium (137-145) mmol/L Potassium (3.5-5.1) mmol/L Chloride (98-107) mmol/L Carbon Dioxide (22-30) mmol/L Anion Gap mmol/L BUN (7-17) mg/dL Creatinine (0.52-1.04) mg/dL Est GFR (CKD-EPI)AfAm (>60 ml/min/1.73 sqM) Est GFR (CKD-EPI)NonAf (>60 ml/min/1.73 sqM) Glucose (74-99) mg/dL Calcium (8.4-10.2) mg/dL Troponin I <0.012 (0.000-0.034) ng/mL Disposition Clinical Impression: Chest pain Disposition: ADMITTED IP TO THIS HOSP Condition: Fair Referrals: Jerosn Aguilar MD [Primary Care Provider] - 1-2 days Time of Disposition: 19:15
[2020-11-22 17:15] LABS: Basophils % (A) 0 %; Eosinophils # (A) 0.1 k/uL (0-0.7); Eosinophils % (A) 2 %; HGB 11.7 gm/dL (11.4-16.0); Lymphocytes # (A) 1.1 k/uL (1.0-4.8); Lymphocytes % (A) 23 %; MCH 31.3 pg (25.0-35.0); MCHC 33.5 g/dL (31.0-37.0); MCV 93.2 fL (80.0-100.0); Mean Platelet Volume 6.8; Monocytes # (A) 0.2 k/uL (0-1.0); Monocytes % (A) 5 %; Neutrophils # (A) 3.1 k/uL (1.3-7.7); Neutrophils % (A) 69 %; Platelet Count 232 k/uL (150-450); RBC 3.75 m/uL (3.80-5.40); RDW 13.4 % (11.5-15.5); WBC 4.6 k/uL (3.8-10.6)
[2020-11-22 17:27] LABS: African American GFR (CKD) >90 (>60 ml/min/1.73 sqM); Anion Gap 10 mmol/L; Blood Urea Nitrogen 13 mg/dL (7-17); Calcium 8.9 mg/dL (8.4-10.2); Carbon Dioxide 20 mmol/L (22-30); Chloride 104 mmol/L (98-107); Glucose 419 mg/dL (74-99); Non-African American GFR(CKD) >90 (>60 ml/min/1.73 sqM); Sodium 134 mmol/L (137-145)
--- NOTE | 2020-11-22 17:44 | XR ---
EXAMINATION TYPE: XR chest 1V portable DATE OF EXAM: 11/22/2020 COMPARISON: 11/16/2020 HISTORY: Chest pain TECHNIQUE: FINDINGS: Heart is normal. Lungs are clear of infiltrate. There is no heart failure. There are no hil ar masses. The bony thorax is intact. There are sternal wires. There are chest leads. IMPRESSION: No active cardiopulmonary disease. No change.
[2020-11-22] MEDS ORDERED: ONDANSETRON 4 MG/2 ML VIAL IVP STA (17:50)
[2020-11-22 17:58] LABS: INR 0.9 (<1.2); Prothrombin Time 9.4 sec (9.0-12.0)
[2020-11-22 18:12] LABS: Partial Thromboplastin Time 20.8 sec (22.0-30.0)
[2020-11-22] MEDS ORDERED: NITROGLYCERIN SL TABS 0.4 MG TAB SUBLINGUAL PRN (18:44)
[2020-11-22 20:37] LABS: Glucose,Whole Blood 296 mg/dL (75-99)
[2020-11-22] MEDS ORDERED: tiZANidine 4 MG TAB PO PRN (22:16)
[2020-11-22] MEDS ORDERED: MORPHINE SULFATE 2 MG/ML SYRINGE IVP PRN (22:28)
[2020-11-22] MEDS ORDERED: QUEtiapine 50 MG TAB PO SCH (22:45)
[2020-11-22] MEDS ORDERED: MIRTAZAPINE 45 MG TABLET PO SCH (22:45)
[2020-11-22] MEDS: CYCLOBENZAPRINE 10 MG TAB PO SCH (23:07)
[2020-11-22] MEDS: hydrOXYzine pamoate 25 MG CAP PO SCH (23:07)
[2020-11-22] MEDS: levETIRAcetam 500 MG TAB PO SCH (23:08)
[2020-11-22] MEDS: ISOSORBIDE MONONITRATE ER 30 MG TAB.ER.24H PO SCH (23:08)
[2020-11-22] MEDS: ATORVASTATIN 80 MG TAB PO SCH (23:08)
[2020-11-22] MEDS: LOPERAMIDE 2 MG CAP PO PRN (23:08)
[2020-11-22] MEDS: METOPROLOL TARTRATE 50 MG TAB PO SCH (23:08)
[2020-11-22 23:15] LABS: Glucose,Whole Blood 278 mg/dL (75-99)
[2020-11-22] MEDS: RANOLAZINE 500 MG TAB.ER.12H PO SCH (23:24)
[2020-11-22] MEDS: INSULIN DETEMIR (LEVEMIR) 100 UNIT/ML SYR SQ SCH (23:24)
[2020-11-22] MEDS: ARIPiprazole 5 MG TAB PO SCH (23:25)
[2020-11-23] MEDS ORDERED: LEVOTHYROXINE 100 MCG TAB PO SCH (06:30)
[2020-11-23] MEDS ORDERED: PANTOPRAZOLE 40 MG TABLET PO SCH (07:30)
[2020-11-23 07:48] LABS: Glucose,Whole Blood 286 mg/dL (75-99)
[2020-11-23 08:17] VITALS: BP 104/58; PULSE 61; RESP 20; TEMP 97.7
[2020-11-23] MEDS ORDERED: SPIRONOLACTONE 25 MG TAB PO SCH (09:00)
[2020-11-23] MEDS ORDERED: ASPIRIN 81 MG PO SCH (09:00)
[2020-11-23] MEDS ORDERED: ASPIRIN 325 MG TAB PO SCH (09:00)
[2020-11-23] MEDS ORDERED: FERROUS SULFATE 325 MG TAB PO SCH (09:00)
[2020-11-23] MEDS ORDERED: FOLIC ACID 1 MG TAB PO SCH (09:00)
[2020-11-23] MEDS ORDERED: TICAGRELOR 90 MG TAB PO SCH (09:00)
[2020-11-23] MEDS ORDERED: EZETIMIBE 10 MG TAB PO SCH (09:00)
[2020-11-23] MEDS ORDERED: FUROSEMIDE 40 MG TAB PO SCH (09:00)
[2020-11-23] MEDS ORDERED: POTASSIUM CHLORIDE ER 20 MEQ TAB.ER PO SCH (09:00)
[2020-11-23] MEDS ORDERED: SERTRALINE 50 MG TAB PO SCH (09:00)
[2020-11-23] MEDS: INSULIN DETEMIR (LEVEMIR) 100 UNIT/ML SYR SQ SCH (09:23)
[2020-11-23] MEDS: INSULIN ASPART (NovoLOG) 100 UNIT/ML VIAL SQ SCH ×2 (09:23→12:39)
[2020-11-23] MEDS: hydrOXYzine pamoate 25 MG CAP PO SCH (09:24)
[2020-11-23] MEDS: CYCLOBENZAPRINE 10 MG TAB PO SCH (09:24)
[2020-11-23] MEDS: ISOSORBIDE MONONITRATE ER 30 MG TAB.ER.24H PO SCH (09:24)
[2020-11-23] MEDS: METOPROLOL TARTRATE 50 MG TAB PO SCH (09:24)
[2020-11-23] MEDS: RANOLAZINE 500 MG TAB.ER.12H PO SCH (09:25)
[2020-11-23] MEDS: ARIPiprazole 5 MG TAB PO SCH (09:25)
[2020-11-23] MEDS: levETIRAcetam 500 MG TAB PO SCH (09:35)
[2020-11-23] MEDS: HYDROcodone/APAP 10-325MG 1 EACH TAB PO PRN ×2 (09:35→15:02)
[2020-11-23] MEDS: ATORVASTATIN 80 MG TAB PO SCH (09:35)
[2020-11-23] MEDS ORDERED: CHOLESTYRAMINE (WITH SUGAR) 4 GM PACKET PO SCH (10:00)
[2020-11-23 10:06] LABS: Chol/HDL Ratio 3.28
--- NOTE | 2020-11-23 11:30 | P.CRDCN ---
History of Present Illness Consult date: 11/23/20 History of present illness: HISTORY OF PRESENT ILLNESS: This is a 55-year-old female with a past medical history significant for coronary artery disease with previous CABG and PCI, mitral valve replacement, hypertension, hyperlipidemia, diabetes mellitus, COPD, and CVA. Patient follows in the office with Dr. Murillo. We have been asked to see the patient in consultation for chest pain. Patient examined at the bedside with Dr. Garcia. Patient states she began having chest pain yesterday which prompted her to come to the emergency room. At the time of examination, patient denies chest pain. She is complaining of abdominal pain that is relieved only with narcotics per patient. Patient was recently hospitalized secondary to colitis and treated with IV antibiotics. Patient has been to the hospital multiple times secondary to chest pain with a recent admission 6 days ago. She recently underwent cardiac catheterization where medical management was recommended. She remains on optimal medications from a cardiac standpoint. EKG reveals sinus rhythm with no signs of acute ischemia Chest xray no acute cardiopulmonary process Laboratory data: WBC 4.6. Hemoglobin 11.7. Platelet count 232. Sodium 134. Potassium 4.0. BUN 13. Creatinine 0.70. Troponin negative 3. Current home cardiac medications include lisinopril 2.5 mg daily, Brilinta 90 mg twice a day, Aldactone 25mg daily, Ranexa 1000 mg twice a day, metoprolol tartrate 50mg twice a day, Lasix 40 mg daily, Zetia 10 mg daily, Imdur 30 mg twice a day, Lipitor 80 mg daily, and aspirin 81 mg daily Most recent echocardiogram obtained in October 2020 revealed ejection fraction 55- 60% Cardiac catheterization history: 08/18/[address] Murillo revealing occluded LAD in the midportion. ROBLES to LAD is patent. Occluded ramus intermedius which seems to be an in-stent occlusion. Occluded left circumflex which also seems to be an in-stent occlusion. Pain started in the right coronary artery. Medical management was recommended. 09/24/[address] Murillo revealing normal left main coronary artery. Occluded left circumflex which seems to be in-stent occlusion with multiple layers of stents. Occluded ramus intermedius coronary artery which seems to also be in- stent occlusion with multiple layers of stents. Occluded left anterior descending artery. ROBLES to LAD is patent. Mid to distal LAD has lesion appearing to be in the range of 60-70%. Patent stents in the right coronary artery. REVIEW OF SYSTEMS: At the time of my exam: CONSTITUTIONAL: Denies fever or chills. HEENT: Denies blurred vision, vision changes, or eye pain. Denies hemoptysis CARDIOVASCULAR: Reports chest pain. Denies orthopnea. Denies PND. Denies palpitations RESPIRATORY: Denies shortness of breath. GASTROINTESTINAL: Denies abdominal pain. Denies nausea or vomiting. HEMATOLOGIC: Denies bleeding disorders. GENITOURINARY: Denies any blood in urine. SKIN: Denies pruitis. Denies rash. PHYSICAL EXAM: VITAL SIGNS: Reviewed. GENERAL: Well-developed in no acute distress. HEENT: Head is normocephalic. Pupils are equal, round. Sclerae anicteric. Mucous membranes of the mouth are moist. Neck supple. No JVD or thyromegaly LUNGS: Respirations even and unlabored. Lungs essentially clear to auscultation bilaterally. HEART: Regular rate and rhythm. S1 and S2 heard. Systolic murmur noted. ABDOMEN: Soft. Nondistended. Nontender. EXTREMITIES: Normal range of motion. No clubbing or cyanosis. Peripheral pulses intact. No lower extremity edema NEUROLOGIC: Awake and alert. Oriented x 3. ASSESSMENT: Chest pain, troponins negative 3 Abdominal pain Coronary artery disease with previous CABG and PCI Valvular heart disease with prior bioprosthetic mitral valve replacement Hypertension Hyperlipidemia Diabetes mellitus Peripheral vascular disease History of CVA 4 per patient Nicotine dependence PLAN: An acute coronary event has been ruled out No need to repeat echocardiogram as this was performed last month Resume home cardiac medications No further cardiac inpatient workup recommended. Patient may be discharged home today from a cardiac standpoint and follow up in the office with Dr. Murillo. We will sign off. Please reconsult if needed. Nurse practitioner note has been reviewed by physician. Signing provider agrees with the documented findings, assessment, and plan of care. Past Medical History Past Medical History: Coronary Artery Disease (CAD), Chest Pain / Angina, COPD, CVA/TIA, Diabetes Mellitus, GERD/Reflux, GI Bleed, Hyperlipidemia, Hypertension, Myocardial Infarction ([place]), Musculoskeletal Disorder, Pneumonia, Thyroid Disorder Additional Past Medical History / Comment(s): Pt recently admitted to [facility] on 10/29/20 with abdominal pain/colitis, aphasia/ams/L facial numbness/possible acuteischemic stroke. 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 Last Myocardial Infarction Date:: 2015 History of Any Multi-Drug Resistant Organisms: ESBL Date of last positivie culture/infection: 08/27/20 MDRO Source:: ESBL URINE Past Surgical History: Appendectomy, Bladder Surgery, Cardiac Valve Replacement, Cholecystectomy, Coronary Bypass/CABG, Heart Catheterization, Heart Cathete rization With Stent, Hysterectomy Additional Past Surgical History / Comment(s): 2013 CABG 4 vessel, 2016 mitral valve replacement, PCIs with multiple stents, bilateral leg stents, bladder susupension, colonoscopy. Past Anesthesia/Blood Transfusion Reactions: No Reported Reaction Date of Last Stent Placement:: 06/25/20 Past Psychological History: Anxiety, Bipolar, Depression Additional Psychological History / Comment(s): Pt resides with her [facility]. She uses a walker. She has a glucometer. She is fairly independent. Smoking Status: Former smoker Past Alcohol Use History: None Reported Additional Past Alcohol Use History / Comment(s): Pt started smoking in 1981 and is less than a ppd smoker. Past Drug Use History: None Reported - Past Family History Father Family Medical History: Coronary Artery Disease (CAD) Additional Family Medical History / Comment(s): heart disease Mother Family Medical History: Cancer Additional Family Medical History / Comment(s): Lung cancer Medications and Allergies Home Medications Medication Instructions Recorded Confirmed Type ARIPiprazole [Abilify] 5 mg PO DAILY 05/21/20 11/22/20 History Atorvastatin [Lipitor] 80 mg PO DAILY 05/21/20 11/22/20 History Cyclobenzaprine [Flexeril] 10 mg PO TID 05/21/20 11/22/20 History Mirtazapine [Remeron] 45 mg PO HS 05/21/20 11/22/20 History QUEtiapine [SEROquel] 50 mg PO HS 05/21/20 11/22/20 History Ranolazine [Ranexa] 1,000 mg PO BID 05/21/20 11/22/20 History Sertraline [Zoloft] 50 mg PO DAILY 05/21/20 11/22/20 History hydrOXYzine pamoate [Vistaril] 25 mg PO TID 05/21/20 11/22/20 History Loperamide [Imodium] 2 mg PO QID PRN 06/08/20 11/22/20 History Ticagrelor [Brilinta] 90 mg PO BID tab 06/27/20 11/22/20 Rx Aspirin 81 mg PO DAILY chew 08/20/20 11/22/20 Rx lisinopriL [Zestril] 2.5 mg PO DAILY tab 08/20/20 11/22/20 Rx Nitroglycerin Sl Tabs [Nitrostat] 0.4 mg SL Q5M PRN 09/13/20 11/22/20 History Ezetimibe [Zetia] 10 mg PO DAILY 30 Days #30 tab 09/15/20 11/22/20 Rx Metoprolol Tartrate [Lopressor] 50 mg PO BID 60 Days #30 tab 09/15/20 11/22/20 Rx Furosemide [Lasix] 40 mg PO DAILY 09/21/20 11/22/20 History Potassium Chloride ER [K-Dur 20] 20 meq PO DAILY 09/21/20 11/22/20 History Spironolactone [Aldactone] 25 mg PO DAILY 09/21/20 11/22/20 History Isosorbide Mononitrate ER [Imdur] 30 mg PO BID tab.er.24h 10/03/20 11/22/20 Rx Ferrous Sulfate [Iron (65 MG 325 mg PO DAILY 10/18/20 11/22/20 History Elemental)] Folic Acid 1 mg PO DAILY 10/18/20 11/22/20 History Insulin Glargine,Hum.rec.anlog 21 unit SQ BID 10/18/20 11/22/20 History [Lantus Solostar] Levothyroxine Sodium [Synthroid] 200 mcg PO DAILY 10/18/20 11/22/20 History levETIRAcetam [Keppra] 500 mg PO Q12H 10/18/20 11/22/20 History Cholestyramine (with Sugar) 4 gm PO BID@1000,1800 packet 11/04/20 11/22/20 Rx [Questran Packet] HYDROcodone/APAP 10-325MG [[place] 1 tab PO Q6H PRN 11/16/20 11/22/20 History 10-325] INSULIN ASPART (NovoLOG) [NovoLOG See Protocol SQ ACHS 11/16/20 11/22/20 History (formulary)] Pantoprazole [Protonix] 40 mg PO AC-BID tablet. 11/18/20 11/22/20 Rx tiZANidine HCL 4 mg PO TID PRN 11/22/20 11/22/20 History Allergies Allergy/AdvReac Type Severity Reaction Status Date / Time gabapentin Allergy Severe Anaphylaxis Verified 11/22/20 19:35 shellfish derived [Crab] Allergy Intermediate Rash/Hives Verified 11/22/20 19:35 Physical Exam Vitals: Vital Signs Temp Pulse Pulse Resp BP BP Pulse Ox 11/23/20 07:00 97.7 F 61 20 104/58 11/23/20 02:00 16 11/23/20 01:45 98.6 F 63 16 103/60 93 L 11/22/20 20:30 16 11/22/20 20:05 98.8 F 78 16 124/74 100 11/22/20 19:00 87 16 141/72 98 11/22/20 17:59 73 20 131/76 99 11/22/20 16:46 98.7 F 77 20 150/76 97 Intake and Output 11/22/20 11/23/20 11/23/20 22:59 06:59 14:59 Intake Total 200 Output Total 240 Balance -240 200 Intake: Oral 200 Output: Urine 240 Other: Voiding Method Toilet Toilet Toilet # Voids 1 Weight 81.193 kg 81.193 kg Results 11/22/20 17:07 11/22/20 17:07 Cardiac Enzymes 11/22/20 11/22/20 11/22/20 Range/Units 17:07 20:25 22:53 Troponin I <0.012 <0.012 <0.012 (0.000-0.034) ng/mL Coagulation 11/22/20 Range/Units 17:07 PT 9.4 (9.0-12.0) sec APTT 20.8 L (22.0-30.0) sec Lipids 11/23/20 Range/Units 05:01 Triglycerides 230.0 H (0.0-149.0) mg/dL Cholesterol 177 (0-200) mg/dL HDL Cholesterol 54.0 (40.0-60.0) mg/dL Cholesterol/HDL Ratio 3.28 CBC 11/22/20 Range/Units 17:07 WBC 4.6 (3.8-10.6) k/uL RBC 3.75 L (3.80-5.40) m/uL Hgb 11.7 (11.4-16.0) gm/dL Hct 35.0 (34.0-46.0) % Plt Count 232 (150-450) k/uL Comprehensive Metabolic Panel 11/22/20 Range/Units 17:07 Sodium 134 L (137-145) mmol/L Potassium 4.0 (3.5-5.1) mmol/L Chloride 104 (98-107) mmol/L Carbon Dioxide 20 L (22-30) mmol/L BUN 13 (7-17) mg/dL Creatinine 0.70 (0.52-1.04) mg/dL Glucose 419 H (74-99) mg/dL Calcium 8.9 (8.4-10.2) mg/dL Current Medications Generic Name Dose Route Start Last Admin Trade Name Freq PRN Reason Stop Dose Admin Hydrocodone Bitart/Acetaminophen 1 each 11/22/20 22:16 11/23/20 09:35 Hydrocodone/Apap 10-325mg 1 Each Tab PO 1 each Q6H PRN Administration Pain Aripiprazole 5 mg 11/22/20 22:30 11/23/20 09:25 Aripiprazole 5 Mg Tab PO 5 mg DAILY CAROLYN Administration Aspirin 325 mg 11/23/20 09:00 11/23/20 09:26 Aspirin 325 Mg Tab PO Not Given DAILY CAROLYN Aspirin 81 mg 11/23/20 09:00 11/23/20 09:25 Aspirin 81 Mg PO 81 mg DAILY CAROLYN Administration Atorvastatin Calcium 80 mg 11/22/20 22:30 11/23/20 09:35 Atorvastatin 80 Mg Tab PO 80 mg DAILY CAROLYN Administration Cholestyramine Resin 4 gm 11/23/20 10:00 11/23/20 09:26 Cholestyramine (With Sugar) 4 Gm Packet PO 4 gm BID@1000,1800 CAROLYN Administration Cyclobenzaprine HCl 10 mg 11/22/20 22:30 11/23/20 09:24 Cyclobenzaprine 10 Mg Tab PO 10 mg TID CAROLYN Administration Ezetimibe 10 mg 11/23/20 09:00 11/23/20 09:25 Ezetimibe 10 Mg Tab PO 10 mg DAILY CAROLYN Administration Ferrous Sulfate 325 mg 11/23/20 09:00 11/23/20 09:24 Ferrous Sulfate 325 Mg Tab PO 325 mg DAILY CAROLYN Administration Folic Acid 1 mg 11/23/20 09:00 11/23/20 09:26 Folic Acid 1 Mg Tab PO 1 mg DAILY CAROLYN Administration Furosemide 40 mg 11/23/20 09:00 11/23/20 09:24 Furosemide 40 Mg Tab PO 40 mg DAILY CAROLYN Administration Hydroxyzine Pamoate 25 mg 11/22/20 22:30 11/23/20 09:24 Hydroxyzine Pamoate 25 Mg Cap PO 25 mg TID CAROLYN Administration Insulin Aspart 0 unit 11/23/20 07:30 11/23/20 09:23 Insulin Aspart (Novolog) 100 Unit/Ml Vial SQ 5 unit ACHS CAROLYN Administration Protocol Insulin Detemir 21 unit 11/22/20 23:00 11/23/20 09:23 Insulin Detemir (Levemir) 100 Unit/Ml Syr SQ 21 unit BID CAROLYN Administration Isosorbide Mononitrate 30 mg 11/22/20 22:30 11/23/20 09:24 Isosorbide Mononitrate Er 30 Mg Tab.Er.24h PO 30 mg BID CAROLYN Administration Levetiracetam 500 mg 11/22/20 22:30 11/23/20 09:35 Levetiracetam 500 Mg Tab PO 500 mg Q12H CAROLYN Administration Levothyroxine Sodium 200 mcg 11/23/20 06:30 11/23/20 09:25 Levothyroxine 100 Mcg Tab PO 200 mcg DAILY@0630 CAROLYN Administration Lisinopril 2.5 mg 11/23/20 09:00 11/23/20 09:25 Lisinopril 2.5 Mg Tab PO 2.5 mg DAILY CAROLYN Administration Loperamide HCl 2 mg 11/22/20 22:45 11/22/20 23:08 Loperamide 2 Mg Cap PO 2 mg QID PRN Administration Diarrhea Metoprolol Tartrate 50 mg 11/22/20 22:30 11/23/20 09:24 Metoprolol Tartrate 50 Mg Tab PO 50 mg BID CAROLYN Administration Mirtazapine 45 mg 11/22/20 22:45 11/22/20 23:25 Mirtazapine 45 Mg Tablet PO 45 mg HS CAROLYN Administration Morphine Sulfate 1 mg 11/22/20 22:28 11/22/20 23:04 Morphine Sulfate 2 Mg/Ml Syringe IVP 1 mg Q2H PRN Administration Pain/Discomfort Nitroglycerin 0.4 mg 11/22/20 18:44 Nitroglycerin Sl Tabs 0.4 Mg Tab SUBLINGUAL Q5M PRN Chest Pain Pantoprazole Sodium 40 mg 11/23/20 07:30 11/23/20 09:25 Pantoprazole 40 Mg Tablet PO 40 mg AC-BID CAROLYN Administration Potassium Chloride 20 meq 11/23/20 09:00 11/23/20 09:24 Potassium Chloride Er 20 Meq Tab.Er PO 20 meq DAILY CAROLYN Administration Quetiapine Fumarate 50 mg 11/22/20 22:45 11/22/20 23:07 Quetiapine 50 Mg Tab PO 50 mg HS CAROLYN Administration Ranolazine 1,000 mg 11/22/20 22:45 11/23/20 09:25 Ranolazine 500 Mg Tab.Er.12h PO 1,000 mg BID CAROLYN Administration Sertraline HCl 50 mg 11/23/20 09:00 11/23/20 09:26 Sertraline 50 Mg Tab PO 50 mg DAILY CAROLYN Administration Spironolactone 25 mg 11/23/20 09:00 11/23/20 09:25 Spironolactone 25 Mg Tab PO 25 mg DAILY CAROLYN Administration Ticagrelor 90 mg 11/23/20 09:00 11/23/20 09:25 Ticagrelor 90 Mg Tab PO 90 mg BID CAROLYN Administration Tizanidine HCl 4 mg 11/22/20 22:16 11/22/20 23:24 Tizanidine 4 Mg Tab PO 4 mg TID PRN Administration Muscle Pain Intake and Output 11/22/20 11/23/20 11/23/20 22:59 06:59 14:59 Intake Total 200 Output Total 240 Balance -240 200 Intake: Oral 200 Output: Urine 240 Other: Voiding Method Toilet Toilet Toilet # Voids 1 Weight 81.193 kg 81.193 kg 11/22/20 17:07 11/22/20 17:07
[2020-11-23 11:57] LABS: Glucose,Whole Blood 122 mg/dL (75-99)
--- NOTE | 2020-11-23 13:37 | P.HPIM ---
History of Present Illness H&P Date: 11/22/20 Chief Complaint: Chest pain Aminta Sheikh, is a 55-year-old female who presented to [facility] emergency room with a chief complaint of chest pain, patient describes a pressure sensation in the middle of her chest that started about 1 hour prior to presentation. Patient was recently discharged from [facility] with similar complaint of chest pain. She stated that she has been having episodes of chest pain on and off for several weeks. Patient has a known history of coronary artery disease she has a history of coronary artery bypass graft surgery and history of angioplasty was multiple stents. She has multiple cardiac risk factors including smoking diabetes, hyperlipidemia and hypertension. She was evaluated in emergency room, vital examination on presentation revealed a temperature of 98.7 pulse 77 respiration 20 blood p ressure 150/76 pulse ox 97% on room air white blood count was 4.6 hemoglobin 11.7 platelet count 232 sodium 134 potassium 4.0 chloride 104 CO2 20 BUN 13 creatinine 0.7 glucose level was elevated at 419 troponin level was negative EKG revealed normal sinus rhythm with a prolonged QT patient was admitted to telemetry floor for further evaluation and treatment cardiology consultation was requested Past Medical History Past Medical History: Coronary Artery Disease (CAD), Chest Pain / Angina, COPD, CVA/TIA, Diabetes Mellitus, GERD/Reflux, GI Bleed, Hyperlipidemia, Hypertension, Myocardial Infarction ([place]), Musculoskeletal Disorder, Pneumonia, Thyroid Disorde r Additional Past Medical History / Comment(s): Pt recently admitted to [facility] on 10/29/20 with abdominal pain/colitis, aphasia/ams/L facial numbness/possible acuteischemic stroke. 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 Last Myocardial Infarction Date:: 2016 History of Any Multi-Drug Resistant Organisms: ESBL Date of last positivie culture/infection: 08/27/20 MDRO Source:: ESBL URINE Past Surgical History: Appendectomy, Bladder Surgery, Cardiac Valve Replacement, Cholecystectomy, Coronary Bypass/CABG, Heart Catheterization, Heart Catheterization With Stent, Hysterectomy Additional Past Surgical History / Comment(s): 2013 CABG 4 vessel, 2016 mitral valve replacement, PCIs with multiple stents, bilateral leg stents, bladder susupension, colonoscopy. Past Anesthesia/Blood Transfusion Reactions: No Reported Reaction Date of Last Stent Placement:: 06/25/20 Past Psychological History: Anxiety, Bipolar, Depression Smoking Status: Current every day smoker Past Alcohol Use History: None Reported Past Drug Use History: None Reported - Past Family History Father Family Medical History: Coronary Artery Disease (CAD) Additional Family Medical History / Comment(s): heart disease Mother Family Medical History: Cancer Additional Family Medical History / Comment(s): Lung cancer Medications and Allergies Home Medications Medication Instructions Recorded Confirmed Type ARIPiprazole [Abilify] 5 mg PO DAILY 05/21/20 11/22/20 History Atorvastatin [Lipitor] 80 mg PO DAILY 05/21/20 11/22/20 History Cyclobenzaprine [Flexeril] 10 mg PO TID 05/21/20 11/22/20 History Mirtazapine [Remeron] 45 mg PO HS 05/21/20 11/22/20 History QUEtiapine [SEROquel] 50 mg PO HS 05/21/20 11/22/20 History Ranolazine [Ranexa] 1,000 mg PO BID 05/21/20 11/22/20 History Sertraline [Zoloft] 50 mg PO DAILY 05/21/20 11/22/20 History hydrOXYzine pamoate [Vistaril] 25 mg PO TID 05/21/20 11/22/20 History Loperamide [Imodium] 2 mg PO QID PRN 06/08/20 11/22/20 History Ticagrelor [Brilinta] 90 mg PO BID tab 06/27/20 11/22/20 Rx Aspirin 81 mg PO DAILY chew 08/20/20 11/22/20 Rx lisinopriL [Zestril] 2.5 mg PO DAILY tab 08/20/20 11/22/20 Rx Nitroglycerin Sl Tabs [Nitrostat] 0.4 mg SL Q5M PRN 09/13/20 11/22/20 History Ezetimibe [Zetia] 10 mg PO DAILY 30 Days #30 tab 09/15/20 11/22/20 Rx Metoprolol Tartrate [Lopressor] 50 mg PO BID 60 Days #30 tab 09/15/20 11/22/20 Rx Furosemide [Lasix] 40 mg PO DAILY 09/21/20 11/22/20 History Potassium Chloride ER [K-Dur 20] 20 meq PO DAILY 09/21/20 11/22/20 History Spironolactone [Aldactone] 25 mg PO DAILY 09/21/20 11/22/20 History Isosorbide Mononitrate ER [Imdur] 30 mg PO BID tab.er.24h 10/03/20 11/22/20 Rx Ferrous Sulfate [Iron (65 MG 325 mg PO DAILY 10/18/20 11/22/20 History Elemental)] Folic Acid 1 mg PO DAILY 10/18/20 11/22/20 History Insulin Glargine,Hum.rec.anlog 21 unit SQ BID 10/18/20 11/22/20 History [Lantus Solostar] Levothyroxine Sodium [Synthroid] 200 mcg PO DAILY 10/18/20 11/22/20 History levETIRAcetam [Keppra] 500 mg PO Q12H 10/18/20 11/22/20 History Cholestyramine (with Sugar) 4 gm PO BID@1000,1800 packet 11/04/20 11/22/20 Rx [Questran Packet] HYDROcodone/APAP 10-325MG [[place] 1 tab PO Q6H PRN 11/16/20 11/22/20 History 10-325] INSULIN ASPART (NovoLOG) [NovoLOG See Protocol SQ ACHS 11/16/20 11/22/20 History (formulary)] Pantoprazole [Protonix] 40 mg PO AC-BID tablet. 11/18/20 11/22/20 Rx tiZANidine HCL 4 mg PO TID PRN 11/22/20 11/22/20 History Allergies Allergy/AdvReac Type Severity Reaction Status Date / Time gabapentin Allergy Severe Anaphylaxis Verified 11/22/20 19:35 shellfish derived [Crab] Allergy Intermediate Rash/Hives Verified 11/22/20 19:35 Physical Exam Vitals: Vital Signs Temp Pulse Resp BP Pulse Ox 11/22/20 19:00 87 16 141/72 98 11/22/20 17:59 73 20 131/76 99 11/22/20 16:46 98.7 F 77 20 150/76 97 Intake and Output 11/22/20 11/22/20 11/22/20 06:59 14:59 22:59 Other: Weight 81.193 kg In general patient is alert and oriented x3 in no distress HEENT head normocephalic and atraumatic Neck is supple no JVD no goiter no lymphadenopathy no carotid bruit Chest examination is clear to auscultation no crackles no wheezing Cardiac exam reveals regular heart sounds S1 and S2 no gallops no murmurs Abdomen is soft nontender no organomegaly with normal bowel sounds Extremity exam reveals no edema no cyanosis or clubbing Neurological examination reveals no gross focal deficits Results CBC & Chem 7: 11/22/20 17:07 11/22/20 17:07 Labs: Abnormal Lab Results - Last 24 Hours (Table) 11/22/20 11/22/20 11/22/20 Range/Units 17:07 17:07 17:07 RBC 3.75 L (3.80-5.40) m/uL APTT 20.8 L (22.0-30.0) sec Sodium 134 L (137-145) mmol/L Carbon Dioxide 20 L (22-30) mmol/L Glucose 419 H (74-99) mg/dL Assessment and Plan Plan: 1. episode of chest pain 2. underlying history of extensive coronary artery disease 3. Underlying history of hypertension 4. Underlying history of diabetes mellitus 5. Underlying history of tobacco use 6. Underlying history of hyperlipidemia Patient is admitted for 24-hour observation Home medications reviewed and reordered Serial EKGs and cardiac enzymes were ordered Cardiology consultation was requested Patient was counseled in length in regard to smoking cessation
[2020-11-23] MEDS: LOPERAMIDE 2 MG CAP PO PRN (13:52)
== END 2020-11-23 15:29 ==
LOC: EC 16:43 → 6NMEDSUR 18:45
PROVIDERS: ADMIT Internal Medicine; ATTEND Internal Medicine
DX: R07.89 Other chest pain (principal); R10.9 Unspecified abdominal pain; I25.10 Atherosclerotic heart disease of native coronary artery without angina pectoris; E11.51 Type 2 diabetes mellitus with diabetic peripheral angiopathy without gangrene; E11.42 Type 2 diabetes mellitus with diabetic polyneuropathy; E78.5 Hyperlipidemia, unspecified; I25.2 Old myocardial infarction; I10 Essential (primary) hypertension; J44.9 Chronic obstructive pulmonary disease, unspecified; R61 Generalized hyperhidrosis; K21.9 Gastro-esophageal reflux disease without esophagitis; E03.9 Hypothyroidism, unspecified; G35 Multiple sclerosis; G89.29 Other chronic pain; M54.9 Dorsalgia, unspecified; K57.90 Diverticulosis of intestine, part unspecified, without perforation or abscess without bleeding; F31.9 Bipolar disorder, unspecified; F41.9 Anxiety disorder, unspecified; F17.210 Nicotine dependence, cigarettes, uncomplicated; Z20.822 Contact with and (suspected) exposure to COVID-19; Z16.24 Resistance to multiple antibiotics; Z79.890 Hormone replacement therapy; Z79.02 Long term (current) use of antithrombotics/antiplatelets; Z79.82 Long term (current) use of aspirin; Z79.4 Long term (current) use of insulin; Z79.899 Other long term (current) drug therapy; Z88.8 Allergy status to other drugs, medicaments and biological substances; Z91.013 Allergy to seafood; Z86.73 Personal history of transient ischemic attack (TIA), and cerebral infarction without residual deficits; Z95.5 Presence of coronary angioplasty implant and graft; Z95.3 Presence of xenogenic heart valve; Z95.1 Presence of aortocoronary bypass graft; Z87.01 Personal history of pneumonia (recurrent); Z87.19 Personal history of other diseases of the digestive system; Z90.49 Acquired absence of other specified parts of digestive tract; Z90.710 Acquired absence of both cervix and uterus; Z98.890 Other specified postprocedural states; Z82.49 Family history of ischemic heart disease and other diseases of the circulatory system; Z80.1 Family history of malignant neoplasm of trachea, bronchus and lung
CPT/HCPCS: 96375; 93005 ×2; 96374; 99285; 36415; 80061; 80048; 84484; 85025; 85610; 85730; 87635; 71045; G0378 ×2; J2405; J2270

== ENCOUNTER 2020-12-09 17:14 | Inpatient (IN) | payer MEDICARE, OTHER ==
[2020-12-09] MEDS ORDERED: NITROGLYCERIN SL TABS 0.4 MG TAB SUBLINGUAL STA (17:32)
--- NOTE | 2020-12-09 17:40 | ED ---
Chest Pain HPI - General Chief Complaint: Chest Pain Stated Complaint: chest pain Time Seen by Provider: 12/09/20 17:20 Source: EMS Mode of arrival: EMS Limitations: no limitations - History of Present Illness Initial Comments: Is a 55-year-old female with multiple medical problems including CAD, [place], CVA diabetes and hypertension who presents emergency department for chest pain. She states that she woke up with it this morning. It's located in the center of her chest and radiates under her left breast into her left shoulder and neck and jaw. She describes it as a pressure-like sensation. She states it is worse with exertion and better with rest. She states that she took 881 mg aspirin and 6 told nitroglycerin tabs at home. She states that the nitroglycerin did seem to improve the pain however the pain would then return. She states that she did have some nausea and some vomiting. She got a little bit lightheaded and sweaty as well. Denies any diarrhea. Admits to dark stool which is chronic for her because of iron supplementation. Patient otherwise denies any lower [place] pain however does state that she has some swelling there which is also chronic and waxes and wanes in intensity. The patient has been seen here recently in the past for chest pain. Appears that she had a cardiac cath done and was recommended that she have medical management performed. She was seen by cardiology earlier in the month as well. Denies any other acute complaints. - Related Data Home Medications Medication Instructions Recorded Confirmed ARIPiprazole [Abilify] 5 mg PO DAILY 05/21/20 12/09/20 Cyclobenzaprine [Flexeril] 10 mg PO TID PRN 05/21/20 12/09/20 Mirtazapine [Remeron] 45 mg PO HS 05/21/20 12/09/20 QUEtiapine [SEROquel] 50 mg PO HS 05/21/20 12/09/20 Ranolazine [Ranexa] 1,000 mg PO BID 05/21/20 12/09/20 Sertraline [Zoloft] 50 mg PO DAILY 05/21/20 12/09/20 hydrOXYzine pamoate [Vistaril] 25 mg PO TID 05/21/20 12/09/20 Nitroglycerin Sl Tabs [Nitrostat] 0.4 mg SL Q5M PRN 09/13/20 12/09/20 Furosemide [Lasix] 40 mg PO DAILY 09/21/20 12/09/20 Potassium Chloride ER [K-Dur 20] 20 meq PO DAILY 09/21/20 12/09/20 Spironolactone [Aldactone] 25 mg PO DAILY 09/21/20 12/09/20 Ferrous Sulfate [Iron (65 MG 325 mg PO DAILY 10/18/20 12/09/20 Elemental)] Folic Acid 1 mg PO DAILY 10/18/20 12/09/20 Insulin Glargine,Hum.rec.anlog 28 unit SQ BID 10/18/20 12/09/20 [Lantus Solostar] Levothyroxine Sodium [Synthroid] 200 mcg PO DAILY 10/18/20 12/09/20 levETIRAcetam [Keppra] 500 mg PO Q12H 10/18/20 12/09/20 HYDROcodone/APAP 10-325MG [[place] 1 tab PO Q6H PRN 11/16/20 12/09/20 10-325] INSULIN ASPART (NovoLOG) [NovoLOG See Protocol SQ ACHS 11/16/20 12/09/20 (formulary)] Atorvastatin [Lipitor] 40 mg PO DAILY 12/09/20 12/09/20 Loperamide HCl [Imodium A-D] 2 - 4 mg PO QID PRN 12/09/20 12/09/20 Previous Rx's Medication Instructions Recorded Ticagrelor [Brilinta] 90 mg PO BID tab 06/27/20 Aspirin 81 mg PO DAILY chew 08/20/20 lisinopriL [Zestril] 2.5 mg PO DAILY tab 08/20/20 Ezetimibe [Zetia] 10 mg PO DAILY 30 Days #30 tab 09/15/20 Metoprolol Tartrate [Lopressor] 50 mg PO BID 60 Days #30 tab 09/15/20 Isosorbide Mononitrate ER [Imdur] 30 mg PO BID tab.er.24h 10/03/20 Pantoprazole [Protonix] 40 mg PO AC-BID tablet. 11/18/20 Allergies Allergy/AdvReac Type Severity Reaction Status Date / Time gabapentin Allergy Severe Anaphylaxis Verified 12/09/20 17:26 shellfish derived [Crab] Allergy Intermediate Rash/Hives Verified 12/09/20 17:26 Review of Systems ROS Statement: Those systems with pertinent positive or pertinent negative responses have been documented in the HPI. ROS Other: All systems not noted in ROS Statement are negative. Past Medical History Past Medical History: Coronary Artery Disease (CAD), Chest Pain / Angina, COPD, CVA/TIA, Diabetes Mellitus, GERD/Reflux, GI Bleed, Hyperlipidemia, Hypertension, Myocardial Infarction ([place]), Musculoskeletal Disorder, Pneumonia, Thyroid Disorder Additional Past Medical History / Comment(s): Pt recently admitted to [facility] on 10/29/20 with abdominal pain/colitis, aphasia/ams/L facial numbness/possible acuteischemic stroke. 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 Last Myocardial Infarction Date:: 2015 History of Any Multi-Drug Resistant Organisms: ESBL Date of last positivie culture/infection: 08/27/20 MDRO Source:: ESBL URINE Past Surgical History: Appendectomy, Bladder Surgery, Cardiac Valve Replacement, Cholecystectomy, Coronary Bypass/CABG, Heart Catheterization, Heart Catheterization With Stent, Hysterectomy Additional Past Surgical History / Comment(s): 2013 CABG 4 vessel, 2016 mitral valve replacement, PCIs with multiple stents, bilateral leg stents, bladder susupension, colonoscopy. Past Anesthesia/Blood Transfusion Reactions: No Reported Reaction Date of Last Stent Placement:: 06/25/20 Past Psychological History: Anxiety, Bipolar, Depression Smoking Status: Current every day smoker Past Alcohol Use History: None Reported Past Drug Use History: None Reported - Past Family History Father Family Medical History: Coronary Artery Disease (CAD) Additional Family Medical History / Comment(s): heart disease Mother Family Medical History: Cancer Additional Family Medical History / Comment(s): Lung cancer General Exam Limitations: no limitations Course Vital Signs 12/09/20 12/09/20 12/09/20 17:16 17:50 18:00 Temperature 98.4 F Pulse Rate 81 81 75 Respiratory 16 14 14 Rate Blood Pressure 154/79 154/79 114/70 O2 Sat by Pulse 98 95 95 Oximetry 12/09/20 19:32 Temperature Pulse Rate 66 Respiratory 18 Rate Blood Pressure 130/65 O2 Sat by Pulse 99 Oximetry - Reevaluation(s) Reevaluation #1: EKG showing normal sinus rhythm with a rate of 77. 12/09/20 19:37 Chest Pain MDM - MDM Is a 55-year-old female presents emergency department for chest pain. Patient was having active chest pain on arrival. She had her to take an aspirin at home and also multiple much lesser intensity throughout the day. The patient has stable vitals on arrival. EKG was unremarkable. Blood work was obtained and unremarkable. Chest x-ray was also unchanged. The patient was given nitroglycerin tablet which she states did greatly improve her symptoms however they're starting to return. Going to start her on nitroglycerin drip at this time at a low dose for her chest discomfort per the patient's cardiac catheterization from previously did show multiple vessel disease which has been managed medically at home. Patient would benefit from cardiology evaluation. I'm going to bring her into the hospital. Dr. Aguilar except see admission. Cardiology was consulted. We'll hold off on heparin at this time since the patient is already on aspirin and Brilinta and has a history of ICH. Dr. Aguilar agreed with this plan of care. Disposition Clinical Impression: Chest pain Disposition: ADMITTED IP TO THIS HOSP Condition: Stable Referrals: Jerson Aguilar MD [Primary Care Provider] - 1-2 days
[2020-12-09 17:57] LABS: Basophils % (A) 1 %; Eosinophils # (A) 0.1 k/uL (0-0.7); Eosinophils % (A) 1 %; HCT 35.3 % (34.0-46.0); HGB 12.1 gm/dL (11.4-16.0); Lymphocytes # (A) 0.9 k/uL (1.0-4.8); Lymphocytes % (A) 20 %; MCH 32.2 pg (25.0-35.0); MCHC 34.3 g/dL (31.0-37.0); MCV 93.9 fL (80.0-100.0); Mean Platelet Volume 7.1; Monocytes # (A) 0.2 k/uL (0-1.0); Monocytes % (A) 4 %; Neutrophils # (A) 3.3 k/uL (1.3-7.7); Neutrophils % (A) 72 %; Platelet Count 239 k/uL (150-450); RBC 3.76 m/uL (3.80-5.40); RDW 13.3 % (11.5-15.5); WBC 4.6 k/uL (3.8-10.6)
[2020-12-09 18:06] LABS: ALT 13 U/L (4-34); AST 23 U/L (14-36); African American GFR (CKD) >90 (>60 ml/min/1.73 sqM); Albumin 4.4 g/dL (3.5-5.0); Alkaline Phosphatase 80 U/L (38-126); Anion Gap 9 mmol/L; Blood Urea Nitrogen 14 mg/dL (7-17); Calcium 9.2 mg/dL (8.4-10.2); Carbon Dioxide 27 mmol/L (22-30); Chloride 98 mmol/L (98-107); Glucose 422 mg/dL (74-99); Magnesium 1.6 mg/dL (1.6-2.3); Non-African American GFR(CKD) 90 (>60 ml/min/1.73 sqM); Potassium 3.9 mmol/L (3.5-5.1); Sodium 134 mmol/L (137-145); Total Bilirubin 0.4 mg/dL (0.2-1.3); Total Protein 6.9 g/dL (6.3-8.2)
[2020-12-09 18:25] LABS: INR 0.9 (<1.2); Prothrombin Time 9.8 sec (9.0-12.0)
[2020-12-09 18:32] LABS: Partial Thromboplastin Time 18.9 sec (22.0-30.0)
--- NOTE | 2020-12-09 19:10 | XR ---
EXAMINATION: XR chest 2V DATE AND TIME: 12/09/2020 6:53 PM CLINICAL INDICATION: PHH; Chest Pain TECHNIQUE: Departmental protocol COMPARISON: 11/22/2020 FINDINGS: Sternal sutures and coronary stents aortic valve prosthesis noted. The lungs are clear. The pleural spaces are negative. The cardiac silhouette is not enlarged. The remainder of the mediastinal silhouette is unremarkable. The skeletal structures and soft tissues are negative for acute findings. IMPRESSION: NO ACUTE PROCESS.
[2020-12-09] MEDS ORDERED: ONDANSETRON 4 MG/2 ML VIAL IVP STA (19:11)
[2020-12-09] MEDS ORDERED: NITROGLYCERIN-D5W PMX 50 MG in DEXTROSE/WATER 1 250ML.BAG IV ONE (19:23)
[2020-12-09] MEDS ORDERED: CYCLOBENZAPRINE 10 MG TAB PO PRN (19:51)
[2020-12-09 20:41] LABS: Glucose,Whole Blood 388 mg/dL (75-99)
[2020-12-09] MEDS: METOPROLOL TARTRATE 50 MG TAB PO SCH (20:53)
[2020-12-09] MEDS: TICAGRELOR 90 MG TAB PO SCH (20:54)
[2020-12-09] MEDS: levETIRAcetam 500 MG TAB PO SCH (20:54)
[2020-12-09] MEDS: QUEtiapine 50 MG TAB PO SCH (20:54)
[2020-12-09] MEDS: hydrOXYzine pamoate 25 MG CAP PO SCH (20:55)
[2020-12-09] MEDS: RANOLAZINE 500 MG TAB.ER.12H PO SCH (20:55)
[2020-12-09] MEDS: INSULIN DETEMIR (LEVEMIR) 100 UNIT/ML SYR SQ SCH (21:23)
[2020-12-09] MEDS: HYDROcodone/APAP 10-325MG 1 EACH TAB PO PRN (21:23)
[2020-12-09] MEDS: MIRTAZAPINE 45 MG TABLET PO SCH (21:56)
[2020-12-10] MEDS: LEVOTHYROXINE 100 MCG TAB PO SCH (06:57)
[2020-12-10 08:25] LABS: Glucose,Whole Blood 392 mg/dL (75-99)
[2020-12-10] MEDS: INSULIN DETEMIR (LEVEMIR) 100 UNIT/ML SYR SQ SCH ×2 (08:30→22:24)
[2020-12-10] MEDS: FERROUS SULFATE 325 MG TAB PO SCH (08:31)
[2020-12-10] MEDS: SPIRONOLACTONE 25 MG TAB PO SCH (08:31)
[2020-12-10] MEDS: FUROSEMIDE 40 MG TAB PO SCH (08:31)
[2020-12-10] MEDS: METOPROLOL TARTRATE 50 MG TAB PO SCH ×2 (08:31→22:30)
[2020-12-10] MEDS: FOLIC ACID 1 MG TAB PO SCH (08:31)
[2020-12-10] MEDS: hydrOXYzine pamoate 25 MG CAP PO SCH ×3 (08:32→22:26)
[2020-12-10] MEDS: ATORVASTATIN 80 MG TAB PO SCH (08:32)
[2020-12-10] MEDS: levETIRAcetam 500 MG TAB PO SCH ×2 (08:32→22:25)
[2020-12-10] MEDS: ASPIRIN 325 MG TAB PO SCH (08:32)
[2020-12-10] MEDS: SERTRALINE 50 MG TAB PO SCH (08:32)
[2020-12-10] MEDS: ARIPiprazole 5 MG TAB PO SCH (08:33)
[2020-12-10] MEDS: PANTOPRAZOLE 40 MG TABLET PO SCH ×2 (08:33→18:01)
[2020-12-10] MEDS: RANOLAZINE 500 MG TAB.ER.12H PO SCH ×2 (08:34→22:25)
[2020-12-10] MEDS: EZETIMIBE 10 MG TAB PO SCH (08:34)
[2020-12-10] MEDS ORDERED: ATORVASTATIN 40 MG TAB PO SCH (09:00)
[2020-12-10] MEDS: TICAGRELOR 90 MG TAB PO SCH ×2 (10:13→22:43)
[2020-12-10 11:30] LABS: Chol/HDL Ratio 4.31; LDL Cholesterol,Calculated 174.4 mg/dL (0.0-131.0); VLDL Calculation 57.6 mg/dL (5.00-40.00)
[2020-12-10] MEDS: ISOSORBIDE MONONITRATE ER 30 MG TAB.ER.24H PO SCH (19:56)
[2020-12-10] MEDS: QUEtiapine 50 MG TAB PO SCH (22:25)
[2020-12-10] MEDS: MIRTAZAPINE 45 MG TABLET PO SCH (22:25)
[2020-12-11 03:25] LABS: Chol/HDL Ratio 4.34; LDL Cholesterol,Calculated 180.4 mg/dL (0.0-131.0); VLDL Calculation 33.6 mg/dL (5.00-40.00)
[2020-12-11 03:37] LABS: Glucose,Whole Blood 133 mg/dL (75-99)
[2020-12-11] MEDS: LEVOTHYROXINE 100 MCG TAB PO SCH (06:18)
--- NOTE | 2020-12-11 07:04 | P.CRDCN ---
History of Present Illness History of present illness: This is Dr. Cui dictating a consult on this patient The patient was interviewed and examined on Sunday IMPRESSION / ASSESSMENT: Recurrent chest discomfort Normal cardiac enzymes, no evidence for acute myocardial infarction Known chronic stable angina Known significant coronary artery disease Abnormal lipid panel despite 40 mg of atorvastatin and Zetia Coronary artery bypass grafting, multiple stents in the past Recent coronary angiogram revealed a distal LAD stenosis and medical management was recommended PLAN: I discussed her care with Dr. Johansen. He is reviewed the angiograms once again and recommends medical treatment only Intervening on the distal LAD lesion will not address her recurrent chest discomfort since she has multiple other areas of occlusive disease that can produce angina The LAD lesion is very distal along the LAD territory close to the apex I discussed this with the patient She is already on Ranexa 1000 g twice daily I will increase Imdur She was on IV nitroglycerin and we will switch to a higher dose of oral Imdur The patient stated that she was taking atorvastatin and all her medications regularly However LDL is still between 170 280 mg/dL on 40 mg of atorvastatin I increased her LDL to 80 mg by mouth daily If she is truly compliant with statins and LDL remains at this level then PCS canine inhibitors are indicated Her triglycerides are also elevated and therefore eicosapentaenoic Ethyl would be indicated HPI patient presented with chest discomfort once again. Initially her blood pressure was elevated to 240/79 mmHg She was started on IV nitroglycerin Cardiac enzymes are normal When I examined her she was still experiencing some chest discomfort that seemed very groggy and took a long time on systemic questions She said she was short of breath but she did not appear to be short of breath at all She was resting and sleeping comfortably in bed, supine, without any orthopnea ROS: No fever chills or rigors, no cough, phlegm or expectoration, no nausea, vomiting or diarrhea, no hematuria, dysuria, no musculoskeletal complaints, no strokes or seizures, no skin lesions. EXAMINATION: Initial blood pressure was 154/79 Subsequent blood pressures were lower she had been started on IV nitroglycerin drip Normal heart sounds no murmurs or gallops no rub Abdomen is soft Breath sounds are equal bilaterally no rhonchi REVIEW OF LABS, ECG & MEDICAL DATA Labs were reviewed Hemoglobin is 12.1, Sodium 134, potassium 3.9 BUN 14 and creatinine 0.76 Elevated glucose levels Normal troponins Very abnormal lipid panel with elevated triglycerides, elevated total cholesterol LDL of 174-180 Triglycerides greater than 168 Total cholesterol 278 Past Medical History Past Medical History: Coronary Artery Disease (CAD), Chest Pain / Angina, COPD, CVA/TIA, Diabetes Mellitus, GERD/Reflux, GI Bleed, Hyperlipidemia, Hypertension, Myocardial Infarction ([place]), Musculoskeletal Disorder, Pneumonia, Thyroid Disorder Additional Past Medical History / Comment(s): Pt recently admitted to [facility] on 10/29/20 with abdominal pain/colitis, aphasia/ams/L facial numbness/possible acuteischemic stroke. 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 Last Myocardial Infarction Date:: 2015 History of Any Multi-Drug Resistant Organisms: ESBL Date of last positivie culture/infection: 08/27/20 MDRO Source:: ESBL URINE Past Surgical History: Appendectomy, Bladder Surgery, Cardiac Valve Replacement, Cholecystectomy, Coronary Bypass/CABG, Heart Catheterization, Heart Catheterization With Stent, Hysterectomy Additional Past Surgical History / Comment(s): 2013 CABG 4 vessel, 2017 mitral valve replacement, PCIs with multiple stents, bilateral leg stents, bladder susupension, colonoscopy. Past Anesthesia/Blood Transfusion Reactions: No Reported Reaction Date of Last Stent Placement:: 06/25/20 Past Psychological History: Anxiety, Bipolar, Depression Additional Psychological History / Comment(s): [facility] She uses [facility] walk[facility]. She has a glucometer. She is fairly independent. Smoking Status: Former smoker Past Alcohol Use History: None Reported Additional Past Alcohol Use History / Comment(s): Pt started smoking in 1981 and is less than a ppd smoker. Past Drug Use History: None Reported - Past Family History Father Family Medical History: Coronary Artery Disease (CAD) Additional Family Medical History / Comment(s): heart disease Mother Family Medical History: Cancer Additional Family Medical History / Comment(s): Lung cancer Medications and Allergies Home Medications Medication Instructions Recorded Confirmed Type RX: ARIPiprazole [Abilify] 5 mg PO DAILY 05/21/20 12/09/20 History RX: Cyclobenzaprine [Flexeril] 10 mg PO TID PRN 05/21/20 12/09/20 History RX: Mirtazapine [Remeron] 45 mg PO HS 05/21/20 12/09/20 History RX: QUEtiapine [SEROquel] 50 mg PO HS 05/21/20 12/09/20 History RX: Ranolazine [Ranexa] 1,000 mg PO BID 05/21/20 12/09/20 History RX: Sertraline [Zoloft] 50 mg PO DAILY 05/21/20 12/09/20 History RX: hydrOXYzine pamoate [Vistaril] 25 mg PO TID 05/21/20 12/09/20 History RX: Ticagrelor [Brilinta] 90 mg PO BID tab 06/27/20 12/09/20 Rx RX: Aspirin 81 mg PO DAILY chew 08/20/20 12/09/20 Rx RX: lisinopriL [Zestril] 2.5 mg PO DAILY tab 08/20/20 12/09/20 Rx RX: Nitroglycerin Sl Tabs 0.4 mg SL Q5M PRN 09/13/20 12/09/20 History [Nitrostat] RX: Ezetimibe [Zetia] 10 mg PO DAILY 30 Days #30 tab 09/15/20 12/09/20 Rx RX: Metoprolol Tartrate [Lopressor] 50 mg PO BID 60 Days #30 tab 09/15/20 12/09/20 Rx RX: Furosemide [Lasix] 40 mg PO DAILY 09/21/20 12/09/20 History RX: Potassium Chloride ER [K-Dur 20 meq PO DAILY 09/21/20 12/09/20 History 20] RX: Spironolactone [Aldactone] 25 mg PO DAILY 09/21/20 12/09/20 History RX: Isosorbide Mononitrate ER 30 mg PO BID tab.er.24h 10/03/20 12/09/20 Rx [Imdur] RX: Ferrous Sulfate [Iron (65 MG 325 mg PO DAILY 10/18/20 12/09/20 History Elemental)] RX: Folic Acid 1 mg PO DAILY 10/18/20 12/09/20 History RX: Insulin Glargine,Hum.rec.anlog 28 unit SQ BID 10/18/20 12/09/20 History [Lantus Solostar] RX: Levothyroxine Sodium 200 mcg PO DAILY 10/18/20 12/09/20 History [Synthroid] RX: levETIRAcetam [Keppra] 500 mg PO Q12H 10/18/20 12/09/20 History RX: HYDROcodone/APAP 10-325MG 1 tab PO Q6H PRN 11/16/20 12/09/20 History [[place] 10-325] RX: INSULIN ASPART (NovoLOG) See Protocol SQ ACHS 11/16/20 12/09/20 History [NovoLOG (formulary)] RX: Pantoprazole [Protonix] 40 mg PO AC-BID tablet. 11/18/20 12/09/20 Rx Atorvastatin [Lipitor] 40 mg PO DAILY 12/09/20 12/09/20 History Loperamide HCl [Imodium A-D] 2 - 4 mg PO QID PRN 12/09/20 12/09/20 History Allergies Allergy/AdvReac Type Severity Reaction Status Date / Time gabapentin Allergy Severe Anaphylaxis Verified 12/09/20 17:26 shellfish derived [Crab] Allergy Intermediate Rash/Hives Verified 12/09/20 17:26 Physical Exam Vitals: Vital Signs Temp Pulse Pulse Resp BP BP Pulse Ox 12/11/20 02:00 97.6 F 67 18 139/83 98 12/10/20 20:59 98.6 F 56 L 18 103/67 98 12/10/20 19:00 60 16 119/63 100 12/10/20 18:00 60 16 100 12/10/20 17:00 60 16 103/58 100 12/10/20 16:00 56 L 16 100 12/10/20 15:00 56 L 16 108/48 100 12/10/20 14:00 59 L 16 114/57 100 12/10/20 13:00 54 L 16 114/59 100 12/10/20 12:00 59 L 16 108/52 100 12/10/20 11:00 64 16 121/65 100 12/10/20 10:00 64 16 121/65 100 12/10/20 09:00 64 16 121/65 100 12/10/20 08:29 66 16 123/63 100 Intake and Output 12/10/20 12/11/20 12/11/20 22:59 06:59 14:59 Other: Voiding Method Diaper External Catheter # Voids 1 3 Weight 83.007 kg Results 12/09/20 17:43 12/09/20 17:43 Lipids 12/09/20 12/10/20 Range/Units 17:43 12:55 Triglycerides 288.0 H 168.0 H (0.0-149.0) mg/dL Cholesterol 302 H 278 H (0-200) mg/dL HDL Cholesterol 70.0 H 64.0 H (40.0-60.0) mg/dL Cholesterol/HDL Ratio 4.31 4.34 Current Medications Generic Name Dose Route Start Last Admin Trade Name Freq PRN Reason Stop Dose Admin Hydrocodone Bitart/Acetaminophen 1 each 12/09/20 19:51 12/09/20 21:23 Hydrocodone/Apap 10-325mg 1 Each Tab PO 1 each Q6H PRN Administration Pain Aripiprazole 5 mg 12/10/20 09:00 12/10/20 08:33 Aripiprazole 5 Mg Tab PO 5 mg DAILY CAROLYN Administration Aspirin 325 mg 12/10/20 09:00 12/10/20 08:32 Aspirin 325 Mg Tab PO 325 mg DAILY CAROLYN Administration Atorvastatin Calcium 80 mg 12/10/20 09:00 12/10/20 08:32 Atorvastatin 80 Mg Tab PO 80 mg DAILY CAROLYN Administration Cyclobenzaprine HCl 10 mg 12/09/20 19:51 Cyclobenzaprine 10 Mg Tab PO TID PRN Muscle Spasm Ezetimibe 10 mg 12/10/20 09:00 12/10/20 08:34 Ezetimibe 10 Mg Tab PO 10 mg DAILY CAROLYN Administration Ferrous Sulfate 325 mg 12/10/20 09:00 12/10/20 08:31 Ferrous Sulfate 325 Mg Tab PO 325 mg DAILY CAROLYN Administration Folic Acid 1 mg 12/10/20 09:00 12/10/20 08:31 Folic Acid 1 Mg Tab PO 1 mg DAILY CAROLYN Administration Furosemide 40 mg 12/10/20 09:00 12/10/20 08:31 Furosemide 40 Mg Tab PO 40 mg DAILY CAROLYN Administration Hydroxyzine Pamoate 25 mg 12/09/20 22:00 12/10/20 22:26 Hydroxyzine Pamoate 25 Mg Cap PO 25 mg TID CAROLYN Administration Insulin Detemir 28 unit 12/09/20 21:00 12/10/20 22:24 Insulin Detemir (Levemir) 100 Unit/Ml Syr SQ 28 unit BID@0700,2100 CAROLYN Administration Isosorbide Mononitrate 30 mg 12/10/20 20:00 12/10/20 19:56 Isosorbide Mononitrate Er 30 Mg Tab.Er.24h PO 30 mg BID CAROLYN Administration Levetiracetam 500 mg 12/09/20 21:00 12/10/20 22:25 Levetiracetam 500 Mg Tab PO 500 mg Q12HR CAROLYN Administration Levothyroxine Sodium 200 mcg 12/10/20 06:30 12/11/20 06:18 Levothyroxine 100 Mcg Tab PO 200 mcg DAILY@0630 CAROLYN Administration Lisinopril 2.5 mg 12/10/20 09:00 12/10/20 08:32 Lisinopril 2.5 Mg Tab PO 2.5 mg DAILY CAROLYN Administration Metoprolol Tartrate 50 mg 12/09/20 21:00 12/10/20 22:30 Metoprolol Tartrate 50 Mg Tab PO Not Given BID CAROLYN Mirtazapine 45 mg 12/09/20 21:00 12/10/20 22:25 Mirtazapine 45 Mg Tablet PO 45 mg HS CAROLYN Administration Pantoprazole Sodium 40 mg 12/10/20 07:30 12/10/20 18:01 Pantoprazole 40 Mg Tablet PO 40 mg AC-BID CAROLYN Administration Quetiapine Fumarate 50 mg 12/09/20 21:00 12/10/20 22:25 Quetiapine 50 Mg Tab PO 50 mg HS CAROLYN Administration Ranolazine 1,000 mg 12/09/20 21:00 12/10/20 22:25 Ranolazine 500 Mg Tab.Er.12h PO 1,000 mg BID CAROLYN Administration Sertraline HCl 50 mg 12/10/20 09:00 12/10/20 08:32 Sertraline 50 Mg Tab PO 50 mg DAILY CAROLYN Administration Spironolactone 25 mg 12/10/20 09:00 12/10/20 08:31 Spironolactone 25 Mg Tab PO 25 mg DAILY CAROLYN Administration Ticagrelor 90 mg 12/09/20 21:00 12/10/20 22:43 Ticagrelor 90 Mg Tab PO 90 mg BID CAROLYN Administration Intake and Output 12/10/20 12/11/20 12/11/20 22:59 06:59 14:59 Other: Voiding Method Diaper External Catheter # Voids 1 3 Weight 83.007 kg 12/09/20 17:43 12/09/20 17:43
[2020-12-11 07:11] LABS: Glucose,Whole Blood 62 mg/dL (75-99)
[2020-12-11 07:48] VITALS: BP 117/61; PULSE 59; RESP 19; TEMP 97.5
[2020-12-11 08:21] LABS: Glucose,Whole Blood 61 mg/dL (75-99)
[2020-12-11 08:36] LABS: Glucose,Whole Blood 65 mg/dL (75-99)
[2020-12-11] MEDS ORDERED: ISOSORBIDE MONONITRATE ER 30 MG TAB.ER.24H PO SCH (09:00)
[2020-12-11 09:02] LABS: Glucose,Whole Blood 75 mg/dL (75-99)
[2020-12-11] MEDS: SERTRALINE 50 MG TAB PO SCH (09:58)
[2020-12-11] MEDS: ASPIRIN 325 MG TAB PO SCH (09:58)
[2020-12-11] MEDS: levETIRAcetam 500 MG TAB PO SCH (09:58)
[2020-12-11] MEDS: SPIRONOLACTONE 25 MG TAB PO SCH (09:59)
[2020-12-11] MEDS: FOLIC ACID 1 MG TAB PO SCH (09:59)
[2020-12-11] MEDS: FUROSEMIDE 40 MG TAB PO SCH (09:59)
[2020-12-11] MEDS: hydrOXYzine pamoate 25 MG CAP PO SCH (09:59)
[2020-12-11] MEDS: PANTOPRAZOLE 40 MG TABLET PO SCH (09:59)
[2020-12-11] MEDS: ISOSORBIDE MONONITRATE ER 30 MG TAB.ER.24H PO SCH (09:59)
[2020-12-11] MEDS: ATORVASTATIN 80 MG TAB PO SCH (10:00)
[2020-12-11] MEDS: INSULIN DETEMIR (LEVEMIR) 100 UNIT/ML SYR SQ SCH (10:00)
[2020-12-11] MEDS: METOPROLOL TARTRATE 50 MG TAB PO SCH (10:03)
[2020-12-11] MEDS: FERROUS SULFATE 325 MG TAB PO SCH (10:03)
[2020-12-11] MEDS: HYDROcodone/APAP 10-325MG 1 EACH TAB PO PRN (10:06)
[2020-12-11 11:34] LABS: Glucose,Whole Blood 107 mg/dL (75-99)
[2020-12-11] MEDS: TICAGRELOR 90 MG TAB PO SCH (12:03)
[2020-12-11] MEDS: RANOLAZINE 500 MG TAB.ER.12H PO SCH (12:03)
[2020-12-11] MEDS: ARIPiprazole 5 MG TAB PO SCH (12:04)
[2020-12-11] MEDS: EZETIMIBE 10 MG TAB PO SCH (12:04)
--- NOTE | 2020-12-11 12:35 | PN ---
PROGRESS NOTE Mrs. Sheikh is comfortable. She has history of CAD, prior multiple PCIs. She is doing well. No further chest pain. Her images were reviewed by Dr. Cui and Dr. Murillo and it was determined to proceed with medical therapy with increase the dose of Imdur from 30-60 mg b.i.d. Patient is doing well, asymptomatic. VITAL SIGNS: Stable. No JVD or carotid bruit. S1, S2 with a short systolic murmur is audible. Lungs are clear. Abdomen and lower exam unchanged. The patient can be discharged today and see Dr. Murillo in the next 2 weeks. MMODL / IJN: [id number] /
--- NOTE | 2020-12-11 12:37 | P.HPIM ---
History of Present Illness H&P Date: 12/10/20 Chief Complaint: Chest pain Aminta Sheikh, is a 55-year-old female who presented to [facility] emergency room with a chief complaint of chest pain. She was evaluated in the emergency room, vital examination on presentation revealed a temperature of 98.4 pulse 81 respiration 16 blood pressure 154/79 pulse ox 98% on room air, laboratory data revealed a white blood count of 4.6 hemoglobin 12.1 platelet count 239 sodium 134 potassium 3.9 chloride 98 CO2 27 and glucose level on presentation was 422 cholesterol level was 302 triglyceride level was 288 t roponin level was negative at less than 0.012 . Hope virus PCR was negative. Chest x-ray done in the emergency room revealed no acute process, EKG done in the emergency room revealed normal sinus rhythm with incomplete right bundle branch block no ST changes. Patient was admitted to telemetry floor for further evaluation and treatment cardiology consultation was requested. Patient has a known history of advanced coronary artery disease with history of myocardial infarction in 2016. She has a history of coronary artery bypass graft surgery and history of valve replacement surgery she also has multiple cardiac catheterization with angioplasty and multiple stent placements. She has multiple cardiac risk factors including hypertension, hyperlipidemia, diabetes mellitus, and smoking at this time patient is stating that she stopped smoking and she is taking all her medications as prescribed however her laboratory data indicates poorly controlled cholesterol and glucose. Patient presented to emergency room once or twice a month with complaint of chest pain. Past Medical History Past Medical History: Coronary Artery Disease (CAD), Chest Pain / Angina, COPD, CVA/TIA, Diabetes Mellitus, GERD/Reflux, GI Bleed, Hyperlipidemia, Hypertension, Myocardial Infarction (SD), Musculoskeletal Disorder, Pneumonia, Thyroid Disorder Additional Past Medical History / Comment(s): Pt recently admitted to [facility] on 10/29/20 with abdominal pain/colitis, aphasia/ams/L facial numbness/possible acuteischemic stroke. 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 Last Myocardial Infarction Date:: 2015 History of Any Multi-Drug Resistant Organisms: ESBL Date of last positivie culture/infection: 08/27/20 MDRO Source:: ESBL URINE Past Surgical History: Appendectomy, Bladder Surgery, Cardiac Valve Replacement, Cholecystectomy, Coronary Bypass/CABG, Heart Catheterization, Heart Catheterization With Stent, Hysterectomy Additional Past Surgical History / Comment(s): 2013 CABG 4 vessel, 2016 mitral valve replacement, PCIs with multiple stents, bilateral leg stents, bladder susupension, colonoscopy. Past Anesthesia/Blood Transfusion Reactions: No Reported Reaction Date of Last Stent Placement:: 06/25/20 Past Psychological History: Anxiety, Bipolar, Depression Smoking Status: Current every day smoker Past Alcohol Use History: None Reported Past Drug Use History: None Reported - Past Family History Father Family Medical History: Coronary Artery Disease (CAD) Additional Family Medical History / Comment(s): heart disease Mother Family Medical History: Cancer Additional Family Medical History / Comment(s): Lung cancer Medications and Allergies Home Medications Medication Instructions Recorded Confirmed Type ARIPiprazole [Abilify] 5 mg PO DAILY 05/21/20 12/09/20 History Cyclobenzaprine [Flexeril] 10 mg PO TID PRN 05/21/20 12/09/20 History Mirtazapine [Remeron] 45 mg PO HS 05/21/20 12/09/20 History QUEtiapine [SEROquel] 50 mg PO HS 05/21/20 12/09/20 History Ranolazine [Ranexa] 1,000 mg PO BID 05/21/20 12/09/20 History Sertraline [Zoloft] 50 mg PO DAILY 05/21/20 12/09/20 History hydrOXYzine pamoate [Vistaril] 25 mg PO TID 05/21/20 12/09/20 History Ticagrelor [Brilinta] 90 mg PO BID tab 06/27/20 12/09/20 Rx Aspirin 81 mg PO DAILY chew 08/20/20 12/09/20 Rx lisinopriL [Zestril] 2.5 mg PO DAILY tab 08/20/20 12/09/20 Rx Nitroglycerin Sl Tabs [Nitrostat] 0.4 mg SL Q5M PRN 09/13/20 12/09/20 History Ezetimibe [Zetia] 10 mg PO DAILY 30 Days #30 tab 09/15/20 12/09/20 Rx Metoprolol Tartrate [Lopressor] 50 mg PO BID 60 Days #30 tab 09/15/20 12/09/20 Rx Furosemide [Lasix] 40 mg PO DAILY 09/21/20 12/09/20 History Potassium Chloride ER [K-Dur 20] 20 meq PO DAILY 09/21/20 12/09/20 History Spironolactone [Aldactone] 25 mg PO DAILY 09/21/20 12/09/20 History Isosorbide Mononitrate ER [Imdur] 30 mg PO BID tab.er.24h 10/03/20 12/09/20 Rx Ferrous Sulfate [Iron (65 MG 325 mg PO DAILY 10/18/20 12/09/20 History Elemental)] Folic Acid 1 mg PO DAILY 10/18/20 12/09/20 History Insulin Glargine,Hum.rec.anlog 28 unit SQ BID 10/18/20 12/09/20 History [Lantus Solostar] Levothyroxine Sodium [Synthroid] 200 mcg PO DAILY 10/18/20 12/09/20 History levETIRAcetam [Keppra] 500 mg PO Q12H 10/18/20 12/09/20 History HYDROcodone/APAP 10-325MG [[place] 1 tab PO Q6H PRN 11/16/20 12/09/20 History 10-325] INSULIN ASPART (NovoLOG) [NovoLOG See Protocol SQ ACHS 11/16/20 12/09/20 History (formulary)] Pantoprazole [Protonix] 40 mg PO AC-BID tablet. 11/18/20 12/09/20 Rx Loperamide HCl [Imodium A-D] 2 - 4 mg PO QID PRN 12/09/20 12/09/20 History Atorvastatin [Lipitor] 80 mg PO DAILY tab 12/11/20 Rx Allergies Allergy/AdvReac Type Severity Reaction Status Date / Time gabapentin Allergy Severe Anaphylaxis Verified 12/09/20 17:26 shellfish derived [Crab] Allergy Intermediate Rash/Hives Verified 12/09/20 17:26 Physical Exam Vitals: Vital Signs Temp Pulse Resp BP Pulse Ox 12/10/20 06:10 64 16 129/60 100 12/09/20 23:30 82 16 95/58 97 12/09/20 23:00 79 16 94/64 97 12/09/20 22:30 84 16 121/60 96 12/09/20 21:55 77 18 129/70 96 12/09/20 20:57 70 18 107/58 100 12/09/20 20:00 73 18 122/61 96 12/09/20 19:32 66 18 130/65 99 12/09/20 18:00 75 14 114/70 95 12/09/20 17:50 81 14 154/79 95 12/09/20 17:16 98.4 F 81 16 154/79 98 Intake and Output 12/09/20 12/10/20 12/10/20 22:59 06:59 14:59 Other: Weight 83.007 kg In general patient is alert and oriented ?-3 in no distress HEENT head normocephalic and atraumatic Neck is supple no JVD no goiter no lymphadenopathy no carotid bruit Chest examination is clear to auscultation no crackles no wheezing Cardiac exam reveals regular heart sounds S1 and S2 no gallops no murmurs Abdomen is soft nontender no organomegaly with normal bowel sounds Extremity exam reveals no edema no cyanosis or clubbing Neurological examination reveals no gross focal deficits Results CBC & Chem 7: 12/09/20 17:43 12/09/20 17:43 Labs: Abnormal Lab Results - Last 24 Hours (Table) 12/09/20 12/09/20 12/09/20 Range/Units 17:43 17:43 17:43 RBC 3.76 L (3.80-5.40) m/uL Lymphocytes # 0.9 L (1.0-4.8) k/uL APTT 18.9 L (22.0-30.0) sec Sodium 134 L (137-145) mmol/L Glucose 422 H (74-99) mg/dL POC Glucose (mg/dL) (75-99) mg/dL 12/09/20 Range/Units 20:39 RBC (3.80-5.40) m/uL Lymphocytes # (1.0-4.8) k/uL APTT (22.0-30.0) sec Sodium (137-145) mmol/L Glucose (74-99) mg/dL POC Glucose (mg/dL) 388 H (75-99) mg/dL Assessment and Plan Plan: Episode of chest pain in a 55-year-old female with advanced coronary artery disease, patient is admitted to telemetry floor cardiology consultation was requested Underlying history of hypertension Underlying history of hyperlipidemia cholesterol level and triglyceride level are not well-controlled Underlying history of insulin-dependent diabetes mellitus Underlying history of seizure disorder Underlying history of depression and bipolar disorder Tobacco abuse however at this time patient is stating that she quit smoking Previous history of CVA and history of intracranial bleeding in the past At this time patient is admitted to telemetry floor cardiology consultation was requested Home medications reviewed and reordered Will follow closely
--- NOTE | 2020-12-11 12:40 | P.DS ---
Providers Date of admission: 12/10/20 23:50 Expected date of discharge: 12/11/20 Attending physician: Jerson Aguilar Consults: 12/09/20 19:39 Consult Physician Urgent Consulting Provider: [facility] Consult Reason/Comments: chest pain Do you want consulting provider notified?: Yes Primary care physician: Jerson [facility] Course: Diagnosis on discharge: Episode of chest pain in a 55-year-old female with advanced coronary artery disease, patient is admitted to telemetry floor cardiology consultation was requested Underlying history of hypertension Underlying history of hyperlipidemia cholesterol level and triglyceride level are not well-controlled Underlying history of insulin-dependent diabetes mellitus Underlying history of seizure disorder Underlying history of depression and bipolar disorder Tobacco abuse however at this time patient is stating that she quit smoking Previous history of CVA and history of intracranial bleeding in the past Hospital course: Aminta Sheikh, is a 55-year-old female who presented to [facility] emergency room with a chief complaint of chest pain. She was evaluated in the emergency room, vital examination on presentation revealed a temperature of 98.4 pulse 81 respiration 16 blood pressure 154/79 pulse ox 98% on room air, laboratory data revealed a white blood count of 4.6 hemoglobin 12.1 platelet count 239 sodium 134 potassium 3.9 chloride 98 CO2 27 and glucose level on presentation was 422 cholesterol level was 302 triglyceride level was 288 troponin level was negative at less than 0.012 . Hope virus PCR was negative. Chest x-ray done in the emergency room revealed no acute process, EKG done in the emergency room revealed normal sinus rhythm with incomplete right bundle branch block no ST changes. Patient was admitted to telemetry floor for further evaluation and treatment cardiology consultation was requested. Patient has a known history of advanced coronary artery disease with history of myocardial infarction in 2016. She has a history of coronary artery bypass graft surgery and history of valve replacement surgery she also has multiple cardiac catheterization with angioplasty and multiple stent placements. She has multiple cardiac risk factors including hypertension, hyperlipidemia, diabetes mellitus, and smoking at this time patient is stating that she stopped smoking and she is taking all her medications as prescribed however her laboratory data indicates poorly controlled cholesterol and glucose. Patient presented to emergency room once or twice a month with complaint of chest pain. On 12/11/2020 patient was seen and examined on the telemetry floor she is alert and oriented 3 in no apparent distress she denies any complaints at this time, there is no fever or chills no headache or dizziness no chest pain no shortness of breath no cough no nausea or vomiting no abdominal pain no diarrhea no blood in the stools no burning with urination no frequency or urgency and no hematuria. She was evaluated by cardiology and was cleared for discharge today, Lipitor dose was increased to 80 mg daily, Imdur or dose was increased to 30 mg twice daily, patient will be followed by cardiology in the next week or 2 in the office for further evaluation and treatment. She will be followed in our office within 1 week Patient Condition at Discharge: Stable Plan - Discharge Summary Discharge Rx Participant: No New Discharge Prescriptions: New Atorvastatin [Lipitor] 80 mg PO DAILY tab Continue Sertraline [Zoloft] 50 mg PO DAILY Ranolazine [Ranexa] 1,000 mg PO BID QUEtiapine [SEROquel] 50 mg PO HS Mirtazapine [Remeron] 45 mg PO HS hydrOXYzine pamoate [Vistaril] 25 mg PO TID Cyclobenzaprine [Flexeril] 10 mg PO TID PRN PRN Reason: Muscle Spasm ARIPiprazole [Abilify] 5 mg PO DAILY Ticagrelor [Brilinta] 90 mg PO BID tab Aspirin 81 mg PO DAILY chew lisinopriL [Zestril] 2.5 mg PO DAILY tab Nitroglycerin Sl Tabs [Nitrostat] 0.4 mg SL Q5M PRN PRN Reason: Chest Pain Metoprolol Tartrate [Lopressor] 50 mg PO BID 60 Days #30 tab Ezetimibe [Zetia] 10 mg PO DAILY 30 Days #30 tab Spironolactone [Aldactone] 25 mg PO DAILY Potassium Chloride ER [K-Dur 20] 20 meq PO DAILY Furosemide [Lasix] 40 mg PO DAILY levETIRAcetam [Keppra] 500 mg PO Q12H Folic Acid 1 mg PO DAILY Loperamide HCl [Imodium A-D] 2 - 4 mg PO QID PRN PRN Reason: Diarrhea Isosorbide Mononitrate ER [Imdur] 30 mg PO BID tab.er.24h Ferrous Sulfate [Iron (65 MG Elemental)] 325 mg PO DAILY Levothyroxine Sodium [Synthroid] 200 mcg PO DAILY Insulin Glargine,Hum.rec.anlog [Lantus Solostar] 28 unit SQ BID INSULIN ASPART (NovoLOG) [NovoLOG (formulary)] See Protocol SQ ACHS HYDROcodone/APAP 10-325MG [[place] 10-325] 1 tab PO Q6H PRN PRN Reason: Pain Pantoprazole [Protonix] 40 mg PO AC-BID tablet.dr Discontinued Atorvastatin [Lipitor] 40 mg PO DAILY Discharge Medication List ARIPiprazole [Abilify] 5 mg PO DAILY 05/21/20 [History] Cyclobenzaprine [Flexeril] 10 mg PO TID PRN 05/21/20 [History] Mirtazapine [Remeron] 45 mg PO HS 05/21/20 [History] QUEtiapine [SEROquel] 50 mg PO HS 05/21/20 [History] Ranolazine [Ranexa] 1,000 mg PO BID 05/21/20 [History] Sertraline [Zoloft] 50 mg PO DAILY 05/21/20 [History] hydrOXYzine pamoate [Vistaril] 25 mg PO TID 05/21/20 [History] Ticagrelor [Brilinta] 90 mg PO BID tab 06/27/20 [Rx] Aspirin 81 mg PO DAILY chew 08/20/20 [Rx] lisinopriL [Zestril] 2.5 mg PO DAILY tab 08/20/20 [Rx] Nitroglycerin Sl Tabs [Nitrostat] 0.4 mg SL Q5M PRN 09/13/20 [History] Ezetimibe [Zetia] 10 mg PO DAILY 30 Days #30 tab 09/15/20 [Rx] Metoprolol Tartrate [Lopressor] 50 mg PO BID 60 Days #30 tab 09/15/20 [Rx] Furosemide [Lasix] 40 mg PO DAILY 09/21/20 [History] Potassium Chloride ER [K-Dur 20] 20 meq PO DAILY 09/21/20 [History] Spironolactone [Aldactone] 25 mg PO DAILY 09/21/20 [History] Isosorbide Mononitrate ER [Imdur] 30 mg PO BID tab.er.24h 10/03/20 [Rx] Ferrous Sulfate [Iron (65 MG Elemental)] 325 mg PO DAILY 10/18/20 [History] Folic Acid 1 mg PO DAILY 10/18/20 [History] Insulin Glargine,Hum.rec.anlog [Lantus Solostar] 28 unit SQ BID 10/18/20 [History] Levothyroxine Sodium [Synthroid] 200 mcg PO DAILY 10/18/20 [History] levETIRAcetam [Keppra] 500 mg PO Q12H 10/18/20 [History] HYDROcodone/APAP 10-325MG [[place] 10-325] 1 tab PO Q6H PRN 11/16/20 [History] INSULIN ASPART (NovoLOG) [NovoLOG (formulary)] See Protocol SQ ACHS 11/16/20 [History] Pantoprazole [Protonix] 40 mg PO AC-BID tablet. 11/18/20 [Rx] Loperamide HCl [Imodium A-D] 2 - 4 mg PO QID PRN 12/09/20 [History] Atorvastatin [Lipitor] 80 mg PO DAILY tab 12/11/20 [Rx] Follow up Appointment(s)/Referral(s): Jerson Aguilar MD [Primary Care Provider] - 1-2 days
== END 2020-12-11 14:19 | disposition home or self-care (01) | DRG 313 ==
LOC: EC 17:14 → 6NMEDSUR 19:40 → OBSVTOIN 12-10 23:50
PROVIDERS: ADMIT Internal Medicine; ATTEND Internal Medicine
DX: R07.9 Chest pain, unspecified (principal); I10 Essential (primary) hypertension; I25.2 Old myocardial infarction; E11.41 Type 2 diabetes mellitus with diabetic mononeuropathy; Z86.73 Personal history of transient ischemic attack (TIA), and cerebral infarction without residual deficits; E03.9 Hypothyroidism, unspecified; E78.5 Hyperlipidemia, unspecified; F17.200 Nicotine dependence, unspecified, uncomplicated; F31.9 Bipolar disorder, unspecified; G35 Multiple sclerosis; J44.9 Chronic obstructive pulmonary disease, unspecified; F41.9 Anxiety disorder, unspecified; Z95.2 Presence of prosthetic heart valve; Z95.1 Presence of aortocoronary bypass graft; Z79.899 Other long term (current) drug therapy; Z79.890 Hormone replacement therapy; Z79.4 Long term (current) use of insulin; Z79.82 Long term (current) use of aspirin; Z79.02 Long term (current) use of antithrombotics/antiplatelets; Z90.710 Acquired absence of both cervix and uterus; G89.29 Other chronic pain; R56.9 Unspecified convulsions; I25.118 Atherosclerotic heart disease of native coronary artery with other forms of angina pectoris
CPT/HCPCS: 36415; 71046; 80053; 80061; 83735; 83880; 84484; 85025; 85610; 85730; 87635; 93005; 96374; 96375; 99285

== ENCOUNTER 2020-12-17 21:00 | Observation (INO) | payer MEDICARE, OTHER ==
[2020-12-17 21:05] VITALS: RESP 18
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
--- NOTE | 2020-12-17 22:41 | XR ---
EXAMINATION TYPE: XR chest 2V DATE OF EXAM: 12/17/2020 COMPARISON: 12/09/2020 HISTORY: Chest pain TECHNIQUE: 2 views FINDINGS: There is no heart failure nor confluent pneumonic infiltrate. There is cardiac valve surger y. There are sternal wires. There are chest leads. Costophrenic angles are clear. Bony thorax is inta ct. IMPRESSION: No active cardiopulmonary disease. No change.
[2020-12-17 22:52] LABS: Albumin 4.8 g/dL (3.5-5.0); Calcium 9.1 mg/dL (8.4-10.2); Magnesium 1.8 mg/dL (1.6-2.3); Potassium 3.6 mmol/L (3.5-5.1); Total Bilirubin 0.4 mg/dL (0.2-1.3); Total Protein 7.4 g/dL (6.3-8.2)
[2020-12-17 23:08] LABS: Basophils % (A) 1 %; Eosinophils # (A) 0.1 k/uL (0-0.7); Eosinophils % (A) 2 %; HCT 37.5 % (34.0-46.0); HGB 12.2 gm/dL (11.4-16.0); Lymphocytes % (A) 18 %; MCH 31.4 pg (25.0-35.0); MCHC 32.5 g/dL (31.0-37.0); MCV 96.5 fL (80.0-100.0); Mean Platelet Volume 9.3; Monocytes # (A) 0.4 k/uL (0-1.0); Monocytes % (A) 8 %; Neutrophils # (A) 3.9 k/uL (1.3-7.7); Neutrophils % (A) 72 %; Platelet Count 202 k/uL (150-450); RBC 3.88 m/uL (3.80-5.40); WBC 5.5 k/uL (3.8-10.6)
[2020-12-17 23:22] LABS: INR 0.9 (<1.2); Prothrombin Time 9.9 sec (9.0-12.0)
[2020-12-17 23:47] LABS: Partial Thromboplastin Time 17.9 sec (22.0-30.0)
[2020-12-18] MEDS ORDERED: SODIUM CHLORIDE 0.9% 2,000 ML IV ONE (00:12)
[2020-12-18] MEDS ORDERED: INSULIN REGULAR 100 UNIT/ML VIAL SQ STA (00:12)
[2020-12-18 02:02] LABS: Glucose,Whole Blood 421 mg/dL (75-99)
[2020-12-18] MEDS ORDERED: SODIUM CHLORIDE 0.9% 1,000 ML IV ONE (02:12)
[2020-12-18] MEDS ORDERED: NITROGLYCERIN SL TABS 0.4 MG TAB SUBLINGUAL PRN ×2 (03:34→15:23)
[2020-12-18] MEDS ORDERED: HYDROcodone/APAP 10-325MG 1 EACH TAB PO ONE (05:26)
[2020-12-18 05:32] LABS: Glucose,Whole Blood 290 mg/dL (75-99)
[2020-12-18 07:47] LABS: Glucose,Whole Blood 266 mg/dL (75-99)
[2020-12-18] MEDS: INSULIN ASPART (NovoLOG) 100 UNIT/ML VIAL SQ SCH ×2 (08:55→12:33)
[2020-12-18 12:29] LABS: Glucose,Whole Blood 159 mg/dL (75-99)
[2020-12-18 15:15] VITALS: BP 144/80; PULSE 76; TEMP 98.2
[2020-12-18] MEDS ORDERED: CYCLOBENZAPRINE 10 MG TAB PO PRN (15:23)
[2020-12-18] MEDS ORDERED: HYDROcodone/APAP 10-325MG 1 EACH TAB PO PRN (15:23)
--- NOTE | 2020-12-18 15:23 | P.HPIM ---
History of Present Illness H&P Date: 12/18/20 Chief Complaint: Chest pain and uncontrolled glucose levels Aminta Sheikh, is a 55-year-old female who presented to [facility] emergency room with a chief complaint of chest pain. She was evaluated in the emergency room, vital examination on presentation reveals a temperature of 98.4 pulse 90 respiration 18 blood pressure 140/75 pulse ox 97% on room air laboratory data revealed a white blood count of 5.5 hemoglobin 12.2 platelet count 202 sodium 138 potassium 3.6 chloride 101 CO2 23 BUN 21 creatinine 0.96 glucose was elevated at 496 patient was admitted to 24-hour observation cardiology consultation was requested. Patient has a known history of coronary artery disease with history of coronary artery bypass graft surgery and history of multiple angioplasty and stent placement in the past, she also has a known history of hypertension, hyperli pidemia, insulin-dependent diabetes mellitus, tobacco abuse, and noncompliance with medications and insulin use. On review of systems Patient is alert and oriented x 3 in no distress, she denies any complaints there is no fever or chills no headache or dizziness no chest pain at this time no shortness of breath no palpitation no cough no nausea or vomiting no abdominal pain no diarrhea no blood in the stools no burning with urination no frequency or urgency and no hematuria, there is no weakness or numbness in any of the extremities no change in vision speech or gait. Past Medical History Past Medical History: Coronary Artery Disease (CAD), Chest Pain / Angina, COPD, CVA/TIA, Diabetes Mellitus, GERD/Reflux, GI Bleed, Hyperlipidemia, Hypertension, Myocardial Infarction ([place]), Musculoskeletal Disorder, Pneumonia, Thyroid Disorder Additional Past Medical History / Comment(s): Pt recently admitted to [facility] on 10/29/20 with abdominal pain/colitis, aphasia/ams/L facial numbness/possible acuteischemic stroke. 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 Last Myocardial Infarction Date:: 2015 History of Any Multi-Drug Resistant Organisms: ESBL Date of last positivie culture/infection: 08/27/20 MDRO Source:: ESBL URINE Past Surgical History: Appendectomy, Bladder Surgery, Cardiac Valve Replacement, Cholecystectomy, Coronary Bypass/CABG, Heart Catheterization, Heart Catheterization With Stent, Hysterectomy Additional Past Surgical History / Comment(s): 2013 CABG 4 vessel, 2017 mitral valve replacement, PCIs with multiple stents, bilateral leg stents, bladder susupension, colonoscopy. Past Anesthesia/Blood Transfusion Reactions: No Reported Reaction Date of Last Stent Placement:: 06/25/20 Past Psychological History: Anxiety, Bipolar, Depression Smoking Status: Current every day smoker Past Alcohol Use History: None Reported Past Drug Use History: None Reported - Past Family History Father Family Medical History: Coronary Artery Disease (CAD) Additional Family Medical History / Comment(s): heart disease Mother Family Medical History: Cancer Additional Family Medical History / Comment(s): Lung cancer Medications and Allergies Home Medications Medication Instructions Recorded Confirmed Type ARIPiprazole [Abilify] 5 mg PO DAILY 05/21/20 12/17/20 History Cyclobenzaprine [Flexeril] 10 mg PO TID PRN 05/21/20 12/17/20 History Mirtazapine [Remeron] 45 mg PO HS 05/21/20 12/17/20 History QUEtiapine [SEROquel] 50 mg PO HS 05/21/20 12/17/20 History Ranolazine [Ranexa] 1,000 mg PO BID 05/21/20 12/17/20 History Sertraline [Zoloft] 50 mg PO DAILY 05/21/20 12/17/20 History hydrOXYzine pamoate [Vistaril] 25 mg PO TID 05/21/20 12/17/20 History Ticagrelor [Brilinta] 90 mg PO BID tab 06/27/20 12/17/20 Rx Aspirin 81 mg PO DAILY chew 08/20/20 12/17/20 Rx lisinopriL [Zestril] 2.5 mg PO DAILY tab 08/20/20 12/17/20 Rx Nitroglycerin Sl Tabs [Nitrostat] 0.4 mg SL Q5M PRN 09/13/20 12/17/20 History Ezetimibe [Zetia] 10 mg PO DAILY 30 Days #30 tab 09/15/20 12/17/20 Rx Metoprolol Tartrate [Lopressor] 50 mg PO BID 60 Days #30 tab 09/15/20 12/17/20 Rx Furosemide [Lasix] 40 mg PO DAILY 09/21/20 12/17/20 History Potassium Chloride ER [K-Dur 20] 20 meq PO DAILY 09/21/20 12/17/20 History Spironolactone [Aldactone] 25 mg PO DAILY 09/21/20 12/17/20 History Isosorbide Mononitrate ER [Imdur] 30 mg PO BID tab.er.24h 10/03/20 12/17/20 Rx Ferrous Sulfate [Iron (65 MG 325 mg PO DAILY 10/18/20 12/17/20 History Elemental)] Folic Acid 1 mg PO DAILY 10/18/20 12/17/20 History Insulin Glargine,Hum.rec.anlog 28 unit SQ BID 10/18/20 12/17/20 History [Lantus Solostar] Levothyroxine Sodium [Synthroid] 200 mcg PO DAILY 10/18/20 12/17/20 History levETIRAcetam [Keppra] 500 mg PO Q12H 10/18/20 12/17/20 History HYDROcodone/APAP 10-325MG [[place] 1 tab PO Q6H PRN 11/16/20 12/17/20 History 10-325] INSULIN ASPART (NovoLOG) [NovoLOG See Protocol SQ ACHS 11/16/20 12/17/20 History (formulary)] Pantoprazole [Protonix] 40 mg PO AC-BID tablet. 11/18/20 12/17/20 Rx Loperamide HCl [Imodium A-D] 2 - 4 mg PO QID PRN 12/09/20 12/17/20 History Atorvastatin [Lipitor] 80 mg PO DAILY tab 12/11/20 12/17/20 Rx Allergies Allergy/AdvReac Type Severity Reaction Status Date / Time gabapentin Allergy Severe Anaphylaxis Verified 12/17/20 22:00 shellfish derived [Crab] Allergy Intermediate Rash/Hives Verified 12/17/20 22:00 Physical Exam Vitals: Vital Signs Temp Pulse Resp BP Pulse Ox 12/18/20 06:00 63 18 93/61 95 12/18/20 03:54 62 18 129/61 98 12/18/20 00:12 71 18 118/57 95 12/17/20 21:59 68 18 129/67 96 06/04/21 21:04 98.4 F 90 18 140/75 97 Intake and Output 12/17/20 12/18/20 12/18/20 22:59 06:59 14:59 Other: Weight 83.007 kg In general patient is alert and oriented ?-3 in no distress HEENT head normocephalic and atraumatic Neck is supple no JVD no goiter no lymphadenopathy no carotid bruit Chest examination is clear to auscultation no crackles no wheezing Cardiac exam reveals regular heart sounds S1 and S2 no gallops no murmurs Abdomen is soft nontender no organomegaly with normal bowel sounds Extremity exam reveals no edema no cyanosis or clubbing Neurological examination reveals no gross focal deficits Results CBC & Chem 7: 12/17/20 21:53 12/17/20 21:53 Labs: Abnormal Lab Results - Last 24 Hours (Table) 12/17/20 12/17/20 12/18/20 Range/Units 21:53 21:53 02:01 APTT 17.9 L (22.0-30.0) sec BUN 21 H (7-17) mg/dL Glucose 496 H (74-99) mg/dL POC Glucose (mg/dL) 421 H (75-99) mg/dL 12/18/20 12/18/20 Range/Units 05:30 07:45 APTT (22.0-30.0) sec BUN (7-17) mg/dL Glucose (74-99) mg/dL POC Glucose (mg/dL) 290 H 266 H (75-99) mg/dL Assessment and Plan Plan: Recurrent episodes of chest pain Advanced coronary artery disease with history of coronary artery bypass graft surgery and history of multiple angioplasty and stent placements in the past Underlying history of hypertension Underlying history of hyperlipidemia Underlying history of hypothyroidism Underlying history of insulin-dependent diabetes mellitus Continued tobacco use Severe noncompliance with medications At this time patient will be monitored for 24 hours serial EKGs and cardiac enzymes will be obtained Cardiology consult requested Significant amount of time was spent in counseling patient in regard to quitting smoking and taking medications and insulin as subscribed Patient seems to understand counseling well
--- NOTE | 2020-12-18 15:28 | P.DS ---
Providers Date of admission: 12/18/20 03:36 Expected date of discharge: 12/18/20 Attending physician: Jerson Aguilar Consults: 12/18/20 09:24 Consult Physician Routine Consulting Provider: Jo Ann Zelaya Consult Reason/Comments: chest pain Do you want consulting provider notified?: Yes Primary care physician: Jersonronen Aguilar [facility] Course: Diagnosis on discharge: Recurrent episodes of chest pain Advanced coronary artery disease with history of coronary artery bypass graft surgery and history of multiple angioplasty and stent placements in the past Underlying history of hypertension Underlying history of hyperlipidemia Underlying history of hypothyroidism Underlying history of insulin-dependent diabetes mellitus Continued tobacco use Severe noncompliance with medications Hospital course: Aminta Sheikh, is a 55-year-old female who presented to [facility] emergency room with a chief complaint of chest pain. She was evaluated in the emergency room, vital examination on presentation reveals a temperature of 98.4 pulse 90 respiration 18 blood pressure 140/75 pulse ox 97% on room air laboratory data revealed a white blood count of 5.5 hemoglobin 12.2 platelet count 202 sodium 138 potassium 3.6 chloride 101 CO2 23 BUN 21 creatinine 0.96 glucose was elevated at 496 patient was admitted to 24-hour observation cardiology consultation was requested. Patient has a known history of coronary artery disease with history of coronary artery bypass graft surgery and history of multiple angioplasty and stent placement in the past, she also has a known history of hypertension, hyperlipidemia, insulin-dependent diabetes mellitus, tobacco abuse, and noncompliance with medications and insulin use. On review of systems Patient is alert and oriented x 3 in no distress, she denies any complaints there is no fever or chills no headache or dizziness no chest pain at this time no shortness of breath no palpitation no cough no nausea or vomiting no abdominal pain no diarrhea no blood in the stools no burning with urination no frequency or urgency and no hematuria, there is no weakness or numbness in any of the extremities no change in vision speech or gait. On 12/18/2020 Patient was seen and examined on the medical floor, she is alert and oriented x 3 in no distress, she denies any complaints there is no fever or chills no headache or dizziness no chest pain no shortness of breath no palpitation no cough no nausea or vomiting no abdominal pain no diarrhea no blood in the stools no burning with urination no frequency or urgency and no hematuria, there is no weakness or numbness in any of the extremities no change in vision speech or gait. Patient was counseled in length more than 5 minutes during this admission in that regard to smoking cessation and taking medications as prescribed and taking insulin patient seems to understand counseling. Case was discussed with cardiology no need for any intervention at this time patient will be discharged home today she will be followed in our office on Sunday for further evaluation and treatment patient instructed to continue her home medication as prior to admission but to make sure to take all prescriptions as given to her Plan - Discharge Summary New Discharge Prescriptions: No Action Sertraline [Zoloft] 50 mg PO DAILY Ranolazine [Ranexa] 1,000 mg PO BID QUEtiapine [SEROquel] 50 mg PO HS Mirtazapine [Remeron] 45 mg PO HS hydrOXYzine pamoate [Vistaril] 25 mg PO TID Cyclobenzaprine [Flexeril] 10 mg PO TID PRN PRN Reason: Muscle Spasm ARIPiprazole [Abilify] 5 mg PO DAILY Ticagrelor [Brilinta] 90 mg PO BID tab Aspirin 81 mg PO DAILY chew lisinopriL [Zestril] 2.5 mg PO DAILY tab Nitroglycerin Sl Tabs [Nitrostat] 0.4 mg SL Q5M PRN PRN Reason: Chest Pain Metoprolol Tartrate [Lopressor] 50 mg PO BID 60 Days #30 tab Ezetimibe [Zetia] 10 mg PO DAILY 30 Days #30 tab Spironolactone [Aldactone] 25 mg PO DAILY Potassium Chloride ER [K-Dur 20] 20 meq PO DAILY Furosemide [Lasix] 40 mg PO DAILY levETIRAcetam [Keppra] 500 mg PO Q12H Folic Acid 1 mg PO DAILY Loperamide HCl [Imodium A-D] 2 - 4 mg PO QID PRN PRN Reason: Diarrhea Isosorbide Mononitrate ER [Imdur] 30 mg PO BID tab.er.24h Ferrous Sulfate [Iron (65 MG Elemental)] 325 mg PO DAILY Levothyroxine Sodium [Synthroid] 200 mcg PO DAILY Insulin Glargine,Hum.rec.anlog [Lantus Solostar] 28 unit SQ BID INSULIN ASPART (NovoLOG) [NovoLOG (formulary)] See Protocol SQ ACHS HYDROcodone/APAP 10-325MG [[place] 10-325] 1 tab PO Q6H PRN PRN Reason: Pain Pantoprazole [Protonix] 40 mg PO AC-BID tablet. Atorvastatin [Lipitor] 80 mg PO DAILY tab Discharge Medication List ARIPiprazole [Abilify] 5 mg PO DAILY 05/21/20 [History] Cyclobenzaprine [Flexeril] 10 mg PO TID PRN 05/21/20 [History] Mirtazapine [Remeron] 45 mg PO HS 05/21/20 [History] QUEtiapine [SEROquel] 50 mg PO HS 05/21/20 [History] Ranolazine [Ranexa] 1,000 mg PO BID 05/21/20 [History] Sertraline [Zoloft] 50 mg PO DAILY 05/21/20 [History] hydrOXYzine pamoate [Vistaril] 25 mg PO TID 05/21/20 [History] Ticagrelor [Brilinta] 90 mg PO BID tab 06/27/20 [Rx] Aspirin 81 mg PO DAILY chew 08/20/20 [Rx] lisinopriL [Zestril] 2.5 mg PO DAILY tab 08/20/20 [Rx] Nitroglycerin Sl Tabs [Nitrostat] 0.4 mg SL Q5M PRN 09/13/20 [History] Ezetimibe [Zetia] 10 mg PO DAILY 30 Days #30 tab 09/15/20 [Rx] Metoprolol Tartrate [Lopressor] 50 mg PO BID 60 Days #30 tab 09/15/20 [Rx] Furosemide [Lasix] 40 mg PO DAILY 09/21/20 [History] Potassium Chloride ER [K-Dur 20] 20 meq PO DAILY 09/21/20 [History] Spironolactone [Aldactone] 25 mg PO DAILY 09/21/20 [History] Isosorbide Mononitrate ER [Imdur] 30 mg PO BID tab.er.24h 10/03/20 [Rx] Ferrous Sulfate [Iron (65 MG Elemental)] 325 mg PO DAILY 10/18/20 [History] Folic Acid 1 mg PO DAILY 10/18/20 [History] Insulin Glargine,Hum.rec.anlog [Lantus Solostar] 28 unit SQ BID 10/18/20 [History] Levothyroxine Sodium [Synthroid] 200 mcg PO DAILY 10/18/20 [History] levETIRAcetam [Keppra] 500 mg PO Q12H 10/18/20 [History] HYDROcodone/APAP 10-325MG [[place] 10-325] 1 tab PO Q6H PRN 11/16/20 [History] INSULIN ASPART (NovoLOG) [NovoLOG (formulary)] See Protocol SQ ACHS 11/16/20 [History] Pantoprazole [Protonix] 40 mg PO AC-BID tablet. 11/18/20 [Rx] Loperamide HCl [Imodium A-D] 2 - 4 mg PO QID PRN 12/09/20 [History] Atorvastatin [Lipitor] 80 mg PO DAILY tab 12/11/20 [Rx] Follow up Appointment(s)/Referral(s): Jerson Aguilar MD [Primary Care Provider] - 1-2 days
[2020-12-18] MEDS ORDERED: levETIRAcetam 500 MG TAB PO SCH (15:30)
--- NOTE | 2020-12-18 15:33 | P.CRDCN ---
History of Present Illness Consult date: 12/18/20 Requesting physician: Jerson Aguilar Reason for Consult (text): chest pain Chief complaint: Chest pain, abdominal pain History of present illness: This 55-year-old patient who follows with Dr. Johansen in the office. She has a history of CAD with prior bypass with ROBLES to the LAD as well as prior stenting most recently in June 2020. She also has a history of hypertension, hyperlipidemia, diabetes and smoking. She most recently underwent cardiac catheterization in September of this year which showed 60-70% lesion in the LAD distal to the bypass and at that time was recommended medical management. She is currently on Ranexa 1000 mg by mouth twice a day as well as isosorbide 30 mg by mouth twice a day. Was a question of compliance as her LDL is 180 despite treatment with both atorvastatin 80 mg daily and that he had 10 mg daily. She presented to the emergency department after recently being discharged following admission on December 10 this time with complaints of abdominal pressure in the left lower quadrant as well as mid sternal chest pressure radiating down under her left breast into the mid axillary region the pain is constant and has been ongoing since 7 AM yesterday morning. EKG showed no acute changes troponins have been negative 3. Chest x-ray showed no active cardiopulmonary disease. Upon examination the patient is resting comfortably in bed and does not appear to be in any acute distress. She continues to complain of chest pressure and abdominal pressure. Past Medical History Past Medical History: Coronary Artery Disease (CAD), Chest Pain / Angina, COPD, CVA/TIA, Diabetes Mellitus, GERD/Reflux, GI Bleed, Hyperlipidemia, Hypertension, Myocardial Infarction ([place]), Musculoskeletal Disorder, Pneumonia, Thyroid Disorder Additional Past Medical History / Comment(s): Pt recently admitted to [facility] on 10/29/20 with abdominal pain/colitis, aphasia/ams/L facial numbness/possible acuteischemic stroke. 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 Last Myocardial Infarction Date:: 2015 History of Any Multi-Drug Resistant Organisms: ESBL Date of last positivie culture/infection: 08/27/20 MDRO Source:: ESBL URINE Past Surgical History: Appendectomy, Bladder Surgery, Cardiac Valve Replacement, Cholecystectomy, Coronary Bypass/CABG, Heart Catheterization, Heart Catheterization With Stent, Hysterectomy Additional Past Surgical History / Comment(s): 2013 CABG 4 vessel, 2016 mitral valve replacement, PCIs with multiple stents, bilateral leg stents, bladder susupension, colonoscopy. Past Anesthesia/Blood Transfusion Reactions: No Reported Reaction Date of Last Stent Placement:: 06/25/20 Past Psychological History: Anxiety, Bipolar, Depression Smoking Status: Current every day smoker Past Alcohol Use History: None Reported Past Drug Use History: None Reported - Past Family History Father Family Medical History: Coronary Artery Disease (CAD) Additional Family Medical History / Comment(s): heart disease Mother Family Medical History: Cancer Additional Family Medical History / Comment(s): Lung cancer Medications and Allergies Home Medications Medication Instructions Recorded Confirmed Type ARIPiprazole [Abilify] 5 mg PO DAILY 05/21/20 12/17/20 History Cyclobenzaprine [Flexeril] 10 mg PO TID PRN 05/21/20 12/17/20 History Mirtazapine [Remeron] 45 mg PO HS 05/21/20 12/17/20 History QUEtiapine [SEROquel] 50 mg PO HS 05/21/20 12/17/20 History Ranolazine [Ranexa] 1,000 mg PO BID 05/21/20 12/17/20 History Sertraline [Zoloft] 50 mg PO DAILY 05/21/20 12/17/20 History hydrOXYzine pamoate [Vistaril] 25 mg PO TID 05/21/20 12/17/20 History Ticagrelor [Brilinta] 90 mg PO BID tab 06/27/20 12/17/20 Rx Aspirin 81 mg PO DAILY chew 08/20/20 12/17/20 Rx lisinopriL [Zestril] 2.5 mg PO DAILY tab 08/20/20 12/17/20 Rx Nitroglycerin Sl Tabs [Nitrostat] 0.4 mg SL Q5M PRN 09/13/20 12/17/20 History Ezetimibe [Zetia] 10 mg PO DAILY 30 Days #30 tab 09/15/20 12/17/20 Rx Metoprolol Tartrate [Lopressor] 50 mg PO BID 60 Days #30 tab 09/15/20 12/17/20 Rx Furosemide [Lasix] 40 mg PO DAILY 09/21/20 12/17/20 History Potassium Chloride ER [K-Dur 20] 20 meq PO DAILY 09/21/20 12/17/20 History Spironolactone [Aldactone] 25 mg PO DAILY 09/21/20 12/17/20 History Isosorbide Mononitrate ER [Imdur] 30 mg PO BID tab.er.24h 10/03/20 12/17/20 Rx Ferrous Sulfate [Iron (65 MG 325 mg PO DAILY 10/18/20 12/17/20 History Elemental)] Folic Acid 1 mg PO DAILY 10/18/20 12/17/20 History Insulin Glargine,Hum.rec.anlog 28 unit SQ BID 10/18/20 12/17/20 History [Lantus Solostar] Levothyroxine Sodium [Synthroid] 200 mcg PO DAILY 10/18/20 12/17/20 History levETIRAcetam [Keppra] 500 mg PO Q12H 10/18/20 12/17/20 History HYDROcodone/APAP 10-325MG [[place] 1 tab PO Q6H PRN 11/16/20 12/17/20 History 10-325] INSULIN ASPART (NovoLOG) [NovoLOG See Protocol SQ ACHS 11/16/20 12/17/20 History (formulary)] Pantoprazole [Protonix] 40 mg PO AC-BID tablet. 11/18/20 12/17/20 Rx Loperamide HCl [Imodium A-D] 2 - 4 mg PO QID PRN 12/09/20 12/17/20 History Atorvastatin [Lipitor] 80 mg PO DAILY tab 12/11/20 12/17/20 Rx Allergies Allergy/AdvReac Type Severity Reaction Status Date / Time gabapentin Allergy Severe Anaphylaxis Verified 12/17/20 22:00 shellfish derived [Crab] Allergy Intermediate Rash/Hives Verified 12/17/20 22:00 Physical Exam Vitals: Vital Signs Temp Pulse Resp BP Pulse Ox 12/18/20 15:13 98.2 F 76 18 144/80 96 12/18/20 11:34 97.9 F 68 18 114/64 96 12/18/20 06:00 63 18 93/61 95 12/18/20 03:54 62 18 129/61 98 12/18/20 00:12 71 18 118/57 95 12/17/20 21:59 68 18 129/67 96 12/17/20 21:04 98.4 F 90 18 140/75 97 PHYSICAL EXAMINATION: This is a 55-year-old female in no apparent distress at the time of my examination. VITAL SIGNS: Blood pressure 114/64, heart rate 68, respirations 18, temp 97.9. Patient is 96% on room air. HEENT: Head is atraumatic, normocephalic. Pupils are equal, round. Sclerae anicteric. Conjunctivae are clear. Mucous membranes of the mouth are moist. Neck is supple. There is no elevated jugular venous pressure. No carotid bruit is heard. CHEST EXAMINATION: Clear to auscultation bilaterally. No wheezes rales or rhonchi. Respirations even and nonlabored. HEART EXAMINATION: Heart regular, positive S1 and S2. No S3. No S4. No clicks, rubs or murmurs. ABDOMEN: Soft, nontender. Bowel sounds are heard. No organomegaly noted. EXTREMITIES: 2+ peripheral pulses with evidence of peripheral edema, left worse than left and no calf tenderness noted. NEUROLOGIC EXAMINATION: Patient is awake, alert and oriented x3. Results 12/17/20 21:53 12/17/20 21:53 Cardiac Enzymes 12/17/20 12/17/20 12/18/20 Range/Units 21:53 21:53 01:20 AST 25 (14-36) U/L Troponin I <0.012 <0.012 (0.000-0.034) ng/mL 12/18/20 12/18/20 Range/Units 06:40 10:09 AST (14-36) U/L Troponin I <0.012 <0.012 (0.000-0.034) ng/mL Coagulation 12/17/20 Range/Units 21:53 PT 9.9 (9.0-12.0) sec APTT 17.9 L (22.0-30.0) sec CBC 12/17/20 Range/Units 21:53 WBC 5.5 (3.8-10.6) k/uL RBC 3.88 (3.80-5.40) m/uL Hgb 12.2 (11.4-16.0) gm/dL Hct 37.5 (34.0-46.0) % Plt Count 202 (150-450) k/uL Comprehensive Metabolic Panel 12/17/20 Range/Units 21:53 Sodium 138 (137-145) mmol/L Potassium 3.6 (3.5-5.1) mmol/L Chloride 101 (98-107) mmol/L Carbon Dioxide 23 (22-30) mmol/L BUN 21 H (7-17) mg/dL Creatinine 0.96 (0.52-1.04) mg/dL Glucose 496 H (74-99) mg/dL Calcium 9.1 (8.4-10.2) mg/dL AST 25 (14-36) U/L ALT 14 (4-34) U/L Alkaline Phosphatase 111 (38-126) U/L Total Protein 7.4 (6.3-8.2) g/dL Albumin 4.8 (3.5-5.0) g/dL Current Medications Generic Name Dose Route Start Last Admin Trade Name Freq PRN Reason Stop Dose Admin Aspirin 81 mg 12/19/20 09:00 Aspirin 81 Mg PO DAILY [facility] Atorvastatin Calcium 80 mg 12/19/20 09:00 Atorvastatin 80 Mg Tab PO DAILY [facility] Ezetimibe 10 mg 12/19/20 09:00 Ezetimibe 10 Mg Tab PO DAILY [facility] Insulin Aspart 0 unit 12/18/20 07:30 12/18/20 12:33 Insulin Aspart (Novolog) 100 Unit/Ml Vial SQ 1 unit ACHS [facility] Administration Protocol Isosorbide Mononitrate 60 mg 12/18/20 21:00 Isosorbide Mononitrate Er 60 Mg Tab.Er.24h PO BID [facility] Lisinopril 2.5 mg 12/19/20 09:00 Lisinopril 2.5 Mg Tab PO DAILY [facility] Metoprolol Tartrate 50 mg 12/18/20 21:00 Metoprolol Tartrate 50 Mg Tab PO BID [facility] Nitroglycerin 0.4 mg 12/18/20 03:34 Nitroglycerin Sl Tabs 0.4 Mg Tab SUBLINGUAL Q5M PRN Chest Pain Ranolazine 1,000 mg 12/18/20 21:00 Ranolazine 500 Mg Tab.Er.12h PO BID [facility] Spironolactone 25 mg 06/06/21 09:00 Spironolactone 25 Mg Tab PO DAILY [facility] Ticagrelor 90 mg 12/18/20 21:00 Ticagrelor 90 Mg Tab PO BID [facility] 12/17/20 21:53 12/17/20 21:53 Assessment and Plan Assessment: #1 symptoms of chest pressure, atypical, acute coronary event has been ruled out #2 CAD with prior ROBLES to the LAD and prior stenting #3 hypertension #4 hyperlipidemia #5 diabetes mellitus #6 smoking #7 noncompliance Plan: From cardiology's perspective we will increase the patient's oral nitrate. Patient may be discharged home and follow-up as an outpatient with Dr. Murillo. [employer] note has been reviewed, I agree with a documented findings and plan of care. Patient was seen and examined.
[2020-12-18] MEDS ORDERED: hydrOXYzine pamoate 25 MG CAP PO SCH (16:00)
[2020-12-18] MEDS ORDERED: PANTOPRAZOLE 40 MG TABLET PO SCH (17:30)
[2020-12-18] MEDS ORDERED: INSULIN ASPART (NovoLOG) 100 UNIT/ML VIAL SQ SCH (17:30)
[2020-12-18] MEDS ORDERED: INSULIN DETEMIR (LEVEMIR) 100 UNIT/ML SYR SQ SCH (21:00)
[2020-12-18] MEDS ORDERED: METOPROLOL TARTRATE 50 MG TAB PO SCH (21:00)
[2020-12-18] MEDS ORDERED: TICAGRELOR 90 MG TAB PO SCH (21:00)
[2020-12-18] MEDS ORDERED: ISOSORBIDE MONONITRATE ER 60 MG TAB.ER.24H PO SCH (21:00)
[2020-12-18] MEDS ORDERED: QUEtiapine 50 MG TAB PO SCH (21:00)
[2020-12-18] MEDS ORDERED: MIRTAZAPINE 45 MG TABLET PO SCH (21:00)
[2020-12-18] MEDS ORDERED: RANOLAZINE 500 MG TAB.ER.12H PO SCH (21:00)
[2020-12-19] MEDS ORDERED: LEVOTHYROXINE 100 MCG TAB PO SCH (06:30)
[2020-12-19] MEDS ORDERED: FERROUS SULFATE 325 MG TAB PO SCH (09:00)
[2020-12-19] MEDS ORDERED: FOLIC ACID 1 MG TAB PO SCH (09:00)
[2020-12-19] MEDS ORDERED: ARIPiprazole 5 MG TAB PO SCH (09:00)
[2020-12-19] MEDS ORDERED: POTASSIUM CHLORIDE ER 20 MEQ TAB.ER PO SCH (09:00)
[2020-12-19] MEDS ORDERED: SPIRONOLACTONE 25 MG TAB PO SCH (09:00)
[2020-12-19] MEDS ORDERED: EZETIMIBE 10 MG TAB PO SCH (09:00)
[2020-12-19] MEDS ORDERED: ATORVASTATIN 80 MG TAB PO SCH (09:00)
[2020-12-19] MEDS ORDERED: SERTRALINE 50 MG TAB PO SCH (09:00)
[2020-12-19] MEDS ORDERED: FUROSEMIDE 40 MG TAB PO SCH (09:00)
[2020-12-19] MEDS ORDERED: ASPIRIN 81 MG PO SCH (09:00)
== END 2020-12-18 16:20 | disposition home or self-care (01) ==
LOC: EC 21:00 → 6NMEDSUR 12-18 03:36
PROVIDERS: ADMIT Internal Medicine; ATTEND Internal Medicine
DX: R07.89 Other chest pain (principal); I25.10 Atherosclerotic heart disease of native coronary artery without angina pectoris; I10 Essential (primary) hypertension; E11.40 Type 2 diabetes mellitus with diabetic neuropathy, unspecified; E78.5 Hyperlipidemia, unspecified; E03.9 Hypothyroidism, unspecified; Z91.19 Patient's noncompliance with other medical treatment and regimen; Z91.14 Patient's other noncompliance with medication regimen; Z20.822 Contact with and (suspected) exposure to COVID-19; J44.9 Chronic obstructive pulmonary disease, unspecified; F17.200 Nicotine dependence, unspecified, uncomplicated; F31.9 Bipolar disorder, unspecified; F41.9 Anxiety disorder, unspecified; G35 Multiple sclerosis; K21.9 Gastro-esophageal reflux disease without esophagitis; G89.29 Other chronic pain; M54.9 Dorsalgia, unspecified; K57.90 Diverticulosis of intestine, part unspecified, without perforation or abscess without bleeding; G57.93 Unspecified mononeuropathy of bilateral lower limbs; I25.2 Old myocardial infarction; Z79.02 Long term (current) use of antithrombotics/antiplatelets; Z79.4 Long term (current) use of insulin; Z79.82 Long term (current) use of aspirin; Z79.890 Hormone replacement therapy; Z79.899 Other long term (current) drug therapy; Z91.013 Allergy to seafood; Z88.8 Allergy status to other drugs, medicaments and biological substances; Z16.24 Resistance to multiple antibiotics; Z87.01 Personal history of pneumonia (recurrent); Z95.2 Presence of prosthetic heart valve; I69.354 Hemiplegia and hemiparesis following cerebral infarction affecting left non-dominant side; Z95.5 Presence of coronary angioplasty implant and graft; Z90.49 Acquired absence of other specified parts of digestive tract; Z95.1 Presence of aortocoronary bypass graft; Z90.710 Acquired absence of both cervix and uterus; Z82.49 Family history of ischemic heart disease and other diseases of the circulatory system; Z80.1 Family history of malignant neoplasm of trachea, bronchus and lung
CPT/HCPCS: 96360; 96361; 99285; 36415 ×2; 93005; 80053; 82150; 83690; 83735; 84484 ×2; 85025; 85610; 85730; 87635; 71046; G0378

== ENCOUNTER 2020-12-19 14:05 | Observation (INO) | payer MEDICARE, OTHER ==
[2020-12-19] MEDS ORDERED: ASPIRIN 81 MG PO STA (14:32)
[2020-12-19] MEDS ORDERED: NITROGLYCERIN OINT 1 INCH/GM PACKET TOPICAL STA (14:32)
--- NOTE | 2020-12-19 15:08 | ED ---
General Adult HPI - General Chief complaint: Chest Pain Stated complaint: chest pain Time Seen by Provider: 12/19/20 14:25 Source: patient, RN notes reviewed, old records reviewed Mode of arrival: EMS Limitations: no limitations - History of Present Illness Initial comments: This is a 55-year-old female who presents to the emergency department complaini ng of chest pain. Patient states she just discharged yesterday however the pain came back it was severe she was short of breath and nauseated and the pain radiated to her right left arm. Patient has a history of diabetes hypertension high cholesterol smoker and states she's had many many stents placed. Patient states this is typical of her cardiac chest pain. Patient denies any fever chills per patient states she has a rash under her breasts. Patient denies any abdominal pain. Patient states she has had diarrhea which she believes a lot of that it started since she has been having issues with her father's health yesterday. - Related Data Home Medications Medication Instructions Recorded Confirmed ARIPiprazole [Abilify] 5 mg PO DAILY 05/21/20 12/19/20 Cyclobenzaprine [Flexeril] 10 mg PO TID PRN 05/21/20 12/19/20 Mirtazapine [Remeron] 45 mg PO HS 05/21/20 12/19/20 QUEtiapine [SEROquel] 50 mg PO HS 05/21/20 12/19/20 Ranolazine [Ranexa] 1,000 mg PO BID 05/21/20 12/19/20 Sertraline [Zoloft] 50 mg PO DAILY 05/21/20 12/19/20 hydrOXYzine pamoate [Vistaril] 25 mg PO TID 05/21/20 12/19/20 Furosemide [Lasix] 40 mg PO DAILY 09/21/20 12/19/20 Potassium Chloride ER [K-Dur 20] 20 meq PO DAILY 09/21/20 12/19/20 Spironolactone [Aldactone] 25 mg PO DAILY 09/21/20 12/19/20 Ferrous Sulfate [Iron (65 MG 325 mg PO DAILY 10/18/20 12/19/20 Elemental)] Folic Acid 1 mg PO DAILY 10/18/20 12/19/20 Insulin Glargine,Hum.rec.anlog 28 unit SQ BID 10/18/20 12/19/20 [Lantus Solostar] Levothyroxine Sodium [Synthroid] 200 mcg PO DAILY 10/18/20 12/19/20 levETIRAcetam [Keppra] 500 mg PO Q12H 10/18/20 12/19/20 HYDROcodone/APAP 10-325MG [[place] 1 tab PO Q6H PRN 11/16/20 12/19/20 10-325] INSULIN ASPART (NovoLOG) [NovoLOG See Protocol SQ ACHS 11/16/20 12/19/20 (formulary)] Loperamide HCl [Imodium A-D] 2 - 4 mg PO QID PRN 12/09/20 12/19/20 Previous Rx's Medication Instructions Recorded Ticagrelor [Brilinta] 90 mg PO BID tab 06/27/20 Aspirin 81 mg PO DAILY chew 08/20/20 lisinopriL [Zestril] 2.5 mg PO DAILY tab 08/20/20 Ezetimibe [Zetia] 10 mg PO DAILY 30 Days #30 tab 09/15/20 Metoprolol Tartrate [Lopressor] 50 mg PO BID 60 Days #30 tab 09/15/20 Isosorbide Mononitrate ER [Imdur] 30 mg PO BID tab.er.24h 10/03/20 Pantoprazole [Protonix] 40 mg PO AC-BID tablet. 11/18/20 Atorvastatin [Lipitor] 80 mg PO DAILY tab 12/11/20 INSULIN ASPART (NovoLOG) [NovoLOG 7 unit SQ ACHS vial 12/18/20 (formulary)] Nitroglycerin Sl Tabs [Nitrostat] 0.4 mg SUBLINGUAL Q5M PRN tab 12/18/20 Allergies Allergy/AdvReac Type Severity Reaction Status Date / Time gabapentin Allergy Severe Anaphylaxis Verified 12/19/20 14:44 shellfish derived [Crab] Allergy Intermediate Rash/Hives Verified 12/19/20 14:44 Review of Systems ROS Statement: Those systems with pertinent positive or pertinent negative responses have been documented in the HPI. ROS Other: All systems not noted in ROS Statement are negative. Past Medical History Past Medical History: Coronary Artery Disease (CAD), Chest Pain / Angina, COPD, CVA/TIA, Diabetes Mellitus, GERD/Reflux, GI Bleed, Hyperlipidemia, Hypertension, Myocardial Infarction ([place]), Musculoskeletal Disorder, Pneumonia, Thyroid Disorder Additional Past Medical History / Comment(s): Pt recently admitted to [facility] on 10/29/20 with abdominal pain/colitis, aphasia/ams/L facial numbness/possible acuteischemic stroke. Other hx: Multiple Sclerosis, brain bleeds, multiple C VA with mild L sided arm/leg weakness, IDDM type II, neuropathy bilateral legs/feet, lower GI bleed, diverticular disease, chronic back pain, occasional lower leg/pedal edema, anemia, seizure with mitral valve replacement in 2017, hypothyroid, occasional nausea. Last Myocardial Infarction Date:: 2015 History of Any Multi-Drug Resistant Organisms: ESBL Date of last positivie culture/infection: 08/27/20 MDRO Source:: ESBL URINE Past Surgical History: Appendectomy, Bladder Surgery, Cardiac Valve Replacement, Cholecystectomy, Coronary Bypass/CABG, Heart Catheterization, Heart Catheterization With Stent, Hysterectomy Additional Past Surgical History / Comment(s): 2013 CABG 4 vessel, 2016 mitral valve replacement, PCIs with multiple stents, bilateral leg stents, bladder susupension, colonoscopy. Past Anesthesia/Blood Transfusion Reactions: No Reported Reaction Date of Last Stent Placement:: 06/25/20 Past Psychological History: Anxiety, Bipolar, Depression Smoking Status: Current every day smoker Past Alcohol Use History: None Reported Past Drug Use History: None Reported - Past Family History Father Family Medical History: Coronary Artery Disease (CAD) Additional Family Medical History / Comment(s): heart disease Mother Family Medical History: Cancer Additional Family Medical History / Comment(s): Lung cancer General Exam - General Exam Comments Initial Comments: GENERAL: Patient is well-developed and well-nourished. Patient is nontoxic and well- hydrated and is in mild distress. ENT: Neck is soft and supple. No significant lymphadenopathy is noted. Oropharynx is clear. Moist mucous membranes. Neck has full range of motion without eliciting any pain. EYES: The sclera were anicteric and conjunctiva were pink and moist. Extraocular movements were intact and pupils were equal round and reactive to light. Eyelids were unremarkable. PULMONARY: Unlabored respirations. Good breath sounds bilaterally. No audible rales rhonchi or wheezing was noted. CARDIOVASCULAR: There is a regular rate and rhythm without any murmurs gallops or rubs. ABDOMEN: Soft and nontender with normal bowel sounds. SKIN: Patient has intertrigo left and right is particularly worse on the left under the breasts NEUROLOGIC: Patient is alert and oriented x3. Cranial nerves II through XII are grossly intact. Motor and sensory are also intact. Normal speech, volume and content. Symmetrical smile. MUSCULOSKELETAL: Normal extremities with adequate strength and full range of motion. No lower extremity swelling or edema. No calf tenderness. LYMPHATICS: No significant lymphadenopathy is noted PSYCHIATRIC: Normal psychiatric evaluation. Limitations: no limitations Course Vital Signs 12/19/20 12/19/20 12/19/20 14:23 16:03 18:10 Temperature 98.7 F Pulse Rate 78 72 70 Respiratory 18 18 18 Rate Blood Pressure 167/73 129/60 142/74 O2 Sat by Pulse 96 100 100 Oximetry Medical Decision Making - Medical Decision Making EKG shows normal sinus rhythm at 60 bpm [place] interval is 178 QRS is 90 QT interval is 458 QTC is 487. Patient's EKG shows no ST segment elevation or depression. Chest x-ray shows no acute abnormality. I spoke with Dr. Aguilar he agreed to admit the patient admitted the patient wrote admitting orders. I consult to cardiology. - Lab Data Result diagrams: 12/19/20 17:45 12/19/20 17:45 Lab Results 12/19/20 12/19/20 12/19/20 Range/Units 17:45 17:45 17:45 WBC 6.9 (3.8-10.6) k/uL RBC 4.13 (3.80-5.40) m/uL Hgb 12.9 (11.4-16.0) gm/dL Hct 39.4 (34.0-46.0) % MCV 95.4 (80.0-100.0) fL MCH 31.2 (25.0-35.0) pg MCHC 32.7 (31.0-37.0) g/dL RDW 13.7 (11.5-15.5) % Plt Count 242 (150-450) k/uL MPV 7.4 Neutrophils % 77 % Lymphocytes % 17 % Monocytes % 3 % Eosinophils % 2 % Basophils % 0 % Neutrophils # 5.3 (1.3-7.7) k/uL Lymphocytes # 1.1 (1.0-4.8) k/uL Monocytes # 0.2 (0-1.0) k/uL Eosinophils # 0.1 (0-0.7) k/uL Basophils # 0.0 (0-0.2) k/uL PT 9.7 (9.0-12.0) sec INR 0.9 (<1.2) APTT 21.8 L (22.0-30.0) sec Sodium 138 (137-145) mmol/L Potassium 3.7 (3.5-5.1) mmol/L Chloride 105 (98-107) mmol/L Carbon Dioxide 23 (22-30) mmol/L Anion Gap 10 mmol/L BUN 11 (7-17) mg/dL Creatinine 0.62 (0.52-1.04) mg/dL Est GFR (CKD-EPI)AfAm >90 (>60 ml/min/1.73 sqM) Est GFR (CKD-EPI)NonAf >90 (>60 ml/min/1.73 sqM) Glucose 306 H (74-99) mg/dL Calcium 9.0 (8.4-10.2) mg/dL Magnesium 1.8 (1.6-2.3) mg/dL Total Bilirubin 0.5 (0.2-1.3) mg/dL AST 24 (14-36) U/L ALT 11 (4-34) U/L Alkaline Phosphatase 102 (38-126) U/L Troponin I (0.000-0.034) ng/mL NT-Pro-B Natriuret Pep pg/mL Total Protein 6.6 (6.3-8.2) g/dL Albumin 4.1 (3.5-5.0) g/dL 12/19/20 12/19/20 Range/Units 17:45 17:45 WBC (3.8-10.6) k/uL RBC (3.80-5.40) m/uL Hgb (11.4-16.0) gm/dL Hct (34.0-46.0) % MCV (80.0-100.0) fL MCH (25.0-35.0) pg MCHC (31.0-37.0) g/dL RDW (11.5-15.5) % Plt Count (150-450) k/uL MPV Neutrophils % % Lymphocytes % % Monocytes % % Eosinophils % % Basophils % % Neutrophils # (1.3-7.7) k/uL Lymphocytes # (1.0-4.8) k/uL Monocytes # (0-1.0) k/uL Eosinophils # (0-0.7) k/uL Basophils # (0-0.2) k/uL PT (9.0-12.0) sec INR (<1.2) APTT (22.0-30.0) sec Sodium (137-145) mmol/L Potassium (3.5-5.1) mmol/L Chloride (98-107) mmol/L Carbon Dioxide (22-30) mmol/L Anion Gap mmol/L BUN (7-17) mg/dL Creatinine (0.52-1.04) mg/dL Est GFR (CKD-EPI)AfAm (>60 ml/min/1.73 sqM) Est GFR (CKD-EPI)NonAf (>60 ml/min/1.73 sqM) Glucose (74-99) mg/dL Calcium (8.4-10.2) mg/dL Magnesium (1.6-2.3) mg/dL Total Bilirubin (0.2-1.3) mg/dL AST (14-36) U/L ALT (4-34) U/L Alkaline Phosphatase (38-126) U/L Troponin I <0.012 (0.000-0.034) ng/mL NT-Pro-B Natriuret Pep 1500 pg/mL Total Protein (6.3-8.2) g/dL Albumin (3.5-5.0) g/dL Disposition Clinical Impression: Chest pain Disposition: ADMITTED IP TO THIS HOSP Referrals: Jerson Aguilar MD [Primary Care Provider] - 1-2 days Time of Disposition: 18:41
--- NOTE | 2020-12-19 15:47 | XR ---
EXAMINATION TYPE: XR chest 2V DATE OF EXAM: 12/19/2020 COMPARISON: 12/17/2020 HISTORY: Chest pain TECHNIQUE: 2 views FINDINGS: There is no heart failure nor confluent pneumonic infiltrate. There are sternal wires. Cost ophrenic angles are clear. There is cardiac valve surgery. There are chest leads. There are clips at the left axilla. IMPRESSION: No active cardiopulmonary disease. Normal heart. No change.
[2020-12-19] MEDS ORDERED: ONDANSETRON 4 MG/2 ML VIAL IVP STA (16:30)
[2020-12-19 18:00] LABS: Basophils % (A) 0 %; Eosinophils # (A) 0.1 k/uL (0-0.7); Eosinophils % (A) 2 %; HCT 39.4 % (34.0-46.0); HGB 12.9 gm/dL (11.4-16.0); Lymphocytes # (A) 1.1 k/uL (1.0-4.8); Lymphocytes % (A) 17 %; MCH 31.2 pg (25.0-35.0); MCHC 32.7 g/dL (31.0-37.0); MCV 95.4 fL (80.0-100.0); Mean Platelet Volume 7.4; Monocytes # (A) 0.2 k/uL (0-1.0); Monocytes % (A) 3 %; Neutrophils # (A) 5.3 k/uL (1.3-7.7); Neutrophils % (A) 77 %; Platelet Count 242 k/uL (150-450); RBC 4.13 m/uL (3.80-5.40); RDW 13.7 % (11.5-15.5); WBC 6.9 k/uL (3.8-10.6)
[2020-12-19] MEDS: MORPHINE SULFATE 2 MG/ML SYRINGE IVP STA ×2 (18:08→20:44)
[2020-12-19 18:13] LABS: ALT 11 U/L (4-34); AST 24 U/L (14-36); African American GFR (CKD) >90 (>60 ml/min/1.73 sqM); Albumin 4.1 g/dL (3.5-5.0); Alkaline Phosphatase 102 U/L (38-126); Anion Gap 10 mmol/L; Blood Urea Nitrogen 11 mg/dL (7-17); Carbon Dioxide 23 mmol/L (22-30); Chloride 105 mmol/L (98-107); Glucose 306 mg/dL (74-99); Magnesium 1.8 mg/dL (1.6-2.3); Non-African American GFR(CKD) >90 (>60 ml/min/1.73 sqM); Sodium 138 mmol/L (137-145); Total Bilirubin 0.5 mg/dL (0.2-1.3); Total Protein 6.6 g/dL (6.3-8.2)
[2020-12-19 18:21] LABS: INR 0.9 (<1.2); Prothrombin Time 9.7 sec (9.0-12.0)
[2020-12-19 18:24] LABS: Partial Thromboplastin Time 21.8 sec (22.0-30.0); Potassium 3.7 mmol/L (3.5-5.1)
[2020-12-19] MEDS ORDERED: NITROGLYCERIN SL TABS 0.4 MG TAB SUBLINGUAL PRN (18:41)
[2020-12-20] MEDS: NITROGLYCERIN OINT 1 INCH/GM PACKET TOPICAL SCH ×2 (00:49→06:51)
[2020-12-20] MEDS: MORPHINE SULFATE 2 MG/ML SYRINGE IVP PRN ×4 (01:02→11:51)
[2020-12-20] MEDS ORDERED: SPIRONOLACTONE 25 MG TAB PO SCH (09:00)
[2020-12-20] MEDS ORDERED: RANOLAZINE 500 MG TAB.ER.12H PO SCH (09:00)
[2020-12-20] MEDS ORDERED: METOPROLOL TARTRATE 50 MG TAB PO SCH (09:00)
[2020-12-20] MEDS ORDERED: FUROSEMIDE 40 MG TAB PO SCH (09:00)
[2020-12-20] MEDS ORDERED: amLODIPine 5 MG TAB PO SCH (09:00)
[2020-12-20] MEDS ORDERED: ASPIRIN 81 MG PO SCH (09:00)
[2020-12-20] MEDS ORDERED: ISOSORBIDE MONONITRATE ER 30 MG TAB.ER.24H PO SCH (09:00)
[2020-12-20] MEDS ORDERED: EZETIMIBE 10 MG TAB PO SCH (09:00)
[2020-12-20] MEDS ORDERED: TICAGRELOR 90 MG TAB PO SCH (09:00)
[2020-12-20] MEDS ORDERED: ASPIRIN 325 MG TAB PO SCH (09:00)
--- NOTE | 2020-12-20 09:55 | P.CRDCN ---
History of Present Illness History of present illness: HISTORY OF PRESENTING ILLNESS This is a pleasant 55-year-old female past medical history significant for coronary artery disease status post bypass grafting with ROBLES to LAD and re cent PCI June 2020, hypertension, dyslipidemia, diabetes mellitus, s/p bioprosthetic mitral valve replacement and chronic nicotine dependence. She follows in the office with asked her Skaff. We have been asked to see in consultation for chest pain. [facility] is [facility] and [facility] in no acute distress. She complains of discomfort in the midsternal region as well as under her left breast with radiation at times some left arm and into the jaw. Her symptoms started initially on . She did come to the emergency room and was evaluated on Sunday by Dr. Zelaya. An acute event was ruled out. Her Imdur was increased to 60 mg twice a day and she was discharged home. She states shortly thereafter she received news that her father was ill and he . She had recurrence of chest discomfort associated with dizziness, nausea, vomiting or palpitations. Her chest discomfort is only relieved by morphine. She is currently having ongoing chest discomfort. EKG revealed sinus mechanism, poor R-wave progression and nonspecific abnormalities and QT prolongation. QT prolongation is stable from previous EKG's. No acute changes compared to previous. Chest x-ray negative for acute cardiopulmonary process. Laboratory data reviewed, CBC unremarkable, sodium 138, potassium 3.7, creatinine 0.62, cardiac enzymes negative 3 and NT proBNP 1500. Current daily cardiac medications include Ranexa 1000 mg twice a day, Imdur 60 mg twice a day, lisinopril 2.5 mg daily, Proventil into 90 mg twice a day, Aldactone 25 mg daily, Lopressor 50 mg twice a day, Lasix 40 mg daily, Zetia 10 mg daily, atorvastatin 80 mg daily and aspirin 81 mg daily. Most recent cardiac catheterization was performed recently in September of this year which showed a 60- 70% lesion in the LAD distal to the bypass, at that time medical management was recommended. Most recent echocardiogram obtained October 2020 revealed preserved LV systolic function with ejection fraction 55-60% and moderate stenosis of the bioprosthetic with mean gradient 5.85. REVIEW OF SYSTEMS At the time of my exam: CONSTITUTIONAL: Denies fever or chills. CARDIOVASCULAR: Denies chest pain, shortness of breath, orthopnea, PND or palpitations. RESPIRATORY: Denies cough. GASTROINTESTINAL: Denies abdominal pain, diarrhea, constipation, nausea or vomiting. MUSCULOSKELETAL: Denies myalgias. NEUROLOGIC: Denies numbness, tingling, headacbe or weakness. ENDOCRINE: Denies fatigue, weight change, polydipsia or polyurina. GENITOURINARY: Denies burning, hematuria or urgency with micturation. HEMATOLOGIC: Denies history of anemia or bleeding. PHYSICAL EXAMINATION Blood pressure 112/55 heart rate 63 afebrile and maintaining oxygen saturation on room air. CONSTITUTIONAL: No apparent distress. HEENT: Head is normocephalic. Pupils are equal, round. Sclerae anicteric. Mucous membranes of the mouth are moist. No JVD. No carotid bruit. CHEST EXAMINATION: Lungs are clear to auscultation. No chest wall tenderness is noted on palpation or with deep breathing. HEART EXAMINATION: Regular rate and rhythm. S1, S2 heard. No murmurs, gallops or rub. ABDOMEN: Soft, nontender. Positive bowel sounds. EXTREMITIES: 2+ peripheral pulses, no lower extremity edema and no calf tenderness. NEUROLOGIC EXAMINATION: Patient is awake, alert and oriented x3. ASSESSMENT Chest pain Coronary artery disease status post bypass grafting Bioprosthetic aortic valve replacement QT prolongation Hypertension Dyslipidemia Diabetes mellitus Chronic nicotine dependence PLAN An acute coronary event has been ruled out. She was recommended on Sunday to increase her imdur to 60 mg BID, she has not done this yet. Advised to increase upon discharge. We will also add a small dose of calcium channel janay for after load reduction. QT prolongation noted on EKG, monitor this in the office at follow up visit with repeat EKG. She can be discharged home and follow up in the office with Dr. Murillo in 1-2 weeks. Thank you kindly for this consultation. Nurse Practitioner note has been reviewed, I agree with a documented findings and plan of care. Patient was seen and examined. Past Medical History Past Medical History: Coronary Artery Disease (CAD), Chest Pain / Angina, COPD, CVA/TIA, Diabetes Mellitus, GERD/Reflux, GI Bleed, Hyperlipidemia, Hypertension, Myocardial Infarction ([place]), Musculoskeletal Disorder, Pneumonia, Thyroid Disorder Additional Past Medical History / Comment(s): Pt recently admitted to [facility] on 10/29/20 with abdominal pain/colitis, aphasia/ams/L facial numbness/possible acuteischemic stroke. Other hx: Multiple Sclerosis, brain bleeds, multiple CVA with mild L sided arm/leg weakness, IDDM type II, neuropathy bilateral legs/feet, lower GI bleed, diverticular disease, chronic back pain, occasional l ower leg/pedal edema, anemia, seizure with mitral valve replacement in 2017, hypothyroid, occasional nausea. Last Myocardial Infarction Date:: 2015 History of Any Multi-Drug Resistant Organisms: ESBL Date of last positivie culture/infection: 08/27/20 MDRO Source:: ESBL URINE Past Surgical History: Appendectomy, Bladder Surgery, Cardiac Valve Replacement, Cholecystectomy, Coronary Bypass/CABG, Heart Catheterization, Heart Catheterization With Stent, Hysterectomy Additional Past Surgical History / Comment(s): 2013 CABG 4 vessel, 2016 mitral valve replacement, PCIs with multiple stents, bilateral leg stents, bladder susupension, colonoscopy. Past Anesthesia/Blood Transfusion Reactions: No Reported Reaction Date of Last Stent Placement:: 06/25/20 Past Psychological History: Anxiety, Bipolar, Depression Smoking Status: Current every day smoker Past Alcohol Use History: None Reported Past Drug Use History: None Reported - Past Family History Father Family Medical History: Coronary Artery Disease (CAD) Additional Family Medical History / Comment(s): heart disease Mother Family Medical History: Cancer Additional Family Medical History / Comment(s): Lung cancer Medications and Allergies Home Medications Medication Instructions Recorded Confirmed Type ARIPiprazole [Abilify] 5 mg PO DAILY 05/21/20 12/19/20 History Cyclobenzaprine [Flexeril] 10 mg PO TID PRN 05/21/20 12/19/20 History Mirtazapine [Remeron] 45 mg PO HS 05/21/20 12/19/20 History QUEtiapine [SEROquel] 50 mg PO HS 05/21/20 12/19/20 History Ranolazine [Ranexa] 1,000 mg PO BID 05/21/20 12/19/20 History Sertraline [Zoloft] 50 mg PO DAILY 05/21/20 12/19/20 History hydrOXYzine pamoate [Vistaril] 25 mg PO TID 05/21/20 12/19/20 History Ticagrelor [Brilinta] 90 mg PO BID tab 06/27/20 12/19/20 Rx Aspirin 81 mg PO DAILY chew 08/20/20 12/19/20 Rx lisinopriL [Zestril] 2.5 mg PO DAILY tab 08/20/20 12/19/20 Rx Ezetimibe [Zetia] 10 mg PO DAILY 30 Days #30 tab 09/15/20 12/19/20 Rx Metoprolol Tartrate [Lopressor] 50 mg PO BID 60 Days #30 tab 09/15/20 12/19/20 Rx Furosemide [Lasix] 40 mg PO DAILY 09/21/20 12/19/20 History Potassium Chloride ER [K-Dur 20] 20 meq PO DAILY 09/21/20 12/19/20 History Spironolactone [Aldactone] 25 mg PO DAILY 09/21/20 12/19/20 History Isosorbide Mononitrate ER [Imdur] 30 mg PO BID tab.er.24h 10/03/20 12/19/20 Rx Ferrous Sulfate [Iron (65 MG 325 mg PO DAILY 10/18/20 12/19/20 History Elemental)] Folic Acid 1 mg PO DAILY 10/18/20 12/19/20 History Insulin Glargine,Hum.rec.anlog 28 unit SQ BID 10/18/20 12/19/20 History [Lantus Solostar] Levothyroxine Sodium [Synthroid] 200 mcg PO DAILY 10/18/20 12/19/20 History levETIRAcetam [Keppra] 500 mg PO Q12H 10/18/20 12/19/20 History HYDROcodone/APAP 10-325MG [[place] 1 tab PO Q6H PRN 11/16/20 12/19/20 History 10-325] INSULIN ASPART (NovoLOG) [NovoLOG See Protocol SQ ACHS 11/16/20 12/19/20 History (formulary)] Pantoprazole [Protonix] 40 mg PO AC-BID tablet. 11/18/20 12/19/20 Rx Loperamide HCl [Imodium A-D] 2 - 4 mg PO QID PRN 12/09/20 12/19/20 History Atorvastatin [Lipitor] 80 mg PO DAILY tab 12/11/20 12/19/20 Rx INSULIN ASPART (NovoLOG) [NovoLOG 7 unit SQ ACHS vial 12/18/20 12/19/20 Rx (formulary)] Nitroglycerin Sl Tabs [Nitrostat] 0.4 mg SUBLINGUAL Q5M PRN tab 12/18/20 0 12/19/20 Rx Allergies Allergy/AdvReac Type Severity Reaction Status Date / Time gabapentin Allergy Severe Anaphylaxis Verified 12/19/20 14:44 shellfish derived [Crab] Allergy Intermediate Rash/Hives Verified 12/19/20 14:44 Physical Exam Vitals: Vital Signs Temp Pulse Resp BP Pulse Ox 12/20/20 06:39 56 L 14 110/52 95 12/20/20 04:00 97.7 F 54 L 16 118/59 96 12/20/20 00:36 61 18 133/67 93 L 12/19/20 23:34 58 L 18 116/70 96 12/19/20 20:48 76 18 140/86 99 12/19/20 18:10 70 18 142/74 100 12/19/20 16:03 72 18 129/60 100 12/19/20 14:23 98.7 F 78 18 167/73 96 Results 12/19/20 17:45 12/19/20 17:45 Cardiac Enzymes 12/19/20 12/19/20 12/19/20 Range/Units 17:45 17:45 21:04 AST 24 (14-36) U/L Troponin I <0.012 <0.012 (0.000-0.034) ng/mL 12/20/20 Range/Units 00:22 AST (14-36) U/L Troponin I <0.012 (0.000-0.034) ng/mL Coagulation 12/19/20 Range/Units 17:45 PT 9.7 (9.0-12.0) sec APTT 21.8 L (22.0-30.0) sec CBC 12/19/20 Range/Units 17:45 WBC 6.9 (3.8-10.6) k/uL RBC 4.13 (3.80-5.40) m/uL Hgb 12.9 (11.4-16.0) gm/dL Hct 39.4 (34.0-46.0) % Plt Count 242 (150-450) k/uL Comprehensive Metabolic Panel 12/19/20 Range/Units 17:45 Sodium 138 (137-145) mmol/L Potassium 3.7 (3.5-5.1) mmol/L Chloride 105 (98-107) mmol/L Carbon Dioxide 23 (22-30) mmol/L BUN 11 (7-17) mg/dL Creatinine 0.62 (0.52-1.04) mg/dL Glucose 306 H (74-99) mg/dL Calcium 9.0 (8.4-10.2) mg/dL AST 24 (14-36) U/L ALT 11 (4-34) U/L Alkaline Phosphatase 102 (38-126) U/L Total Protein 6.6 (6.3-8.2) g/dL Albumin 4.1 (3.5-5.0) g/dL Current Medications Generic Name Dose Route Start Last Admin Trade Name Freq PRN Reason Stop Dose Admin Aspirin 325 mg 12/20/20 09:00 Aspirin 325 Mg Tab PO DAILY [facility] Morphine Sulfate 1 mg 12/20/20 00:53 12/20/20 04:25 Morphine Sulfate 2 Mg/Ml Syringe IVP 1 mg Q3HR PRN Administration Pain/Discomfort Nitroglycerin 0.4 mg 12/19/20 18:41 Nitroglycerin Sl Tabs 0.4 Mg Tab SUBLINGUAL Q5M PRN Chest Pain Nitroglycerin 1 inch 12/20/20 00:00 12/20/20 06:51 Nitroglycerin Oint 1 Inch/Gm Packet TOPICAL Not Given Q6HR [facility] 12/19/20 17:45 12/19/20 17:45
[2020-12-20 09:56] VITALS: RESP 16
[2020-12-20 11:50] VITALS: BP 102/54; PULSE 59; TEMP 98.2
--- NOTE | 2020-12-22 12:04 | P.HPIM ---
History of Present Illness H&P Date: 12/20/20 Chief Complaint: Chest pain This is a 55-year-old female patient presented to the emergency room with complaints of chest pain. Patient is frequently admitted for this issue. Patient has an extensive cardiac history and continued nicotine dependence. Patient reports that she has associated nausea with pain radiating to right arm. Additional medical history includes diabetes hypertension and high cholesterol. Patient did have recent cardiac catheterization. Patient states she has been taking her medications as prescribed. COVID-19 negative. Troponin negative. B [employer] 1500. Labs unremarkable. Patient afebrile. Chest x-ray completed showing no acute active cardiopulmonary disease. Normal heart. No change. Cardiology services will be consulted. At this time patient denies chest pain or shortness breath. Patient denies nausea vomiting or diarrhea. Patient denies any urinary burning or frequency Review of Systems please refer to HPI otherwise unremarkable Past Medical History Past Medical History: Coronary Artery Disease (CAD), Chest Pain / Angina, COPD, CVA/TIA, Diabetes Mellitus, GERD/Reflux, GI Bleed, Hyperlipidemia, Hypertension, Myocardial Infarction ([place]), Musculoskeletal Disorder, Pneumonia, Thyroid Disorder Additional Past Medical History / Comment(s): Pt recently admitted to [facility] on 10/29/20 with abdominal pain/colitis, aphasia/ams/L facial numbness/possible acuteischemic stroke. 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 Last Myocardial Infarction Date:: 2015 History of Any Multi-Drug Resistant Organisms: ESBL Date of last positivie culture/infection: 08/27/20 MDRO Source:: ESBL URINE Past Surgical History: Appendectomy, Bladder Surgery, Cardiac Valve Replacement, Cholecystectomy, Coronary Bypass/CABG, Heart Catheterization, Heart Cath eterization With Stent, Hysterectomy Additional Past Surgical History / Comment(s): 2013 CABG 4 vessel, 2016 mitral valve replacement, PCIs with multiple stents, bilateral leg stents, bladder susupension, colonoscopy. Past Anesthesia/Blood Transfusion Reactions: No Reported Reaction Date of Last Stent Placement:: 06/25/20 Past Psychological History: Anxiety, Bipolar, Depression Smoking Status: Current every day smoker Past Alcohol Use History: None Reported Past Drug Use History: None Reported - Past Family History Father Family Medical History: Coronary Artery Disease (CAD) Additional Family Medical History / Comment(s): heart disease Mother Family Medical History: Cancer Additional Family Medical History / Comment(s): Lung cancer Medications and Allergies Home Medications Medication Instructions Recorded Confirmed Type ARIPiprazole [Abilify] 5 mg PO DAILY 05/21/20 12/19/20 History Cyclobenzaprine [Flexeril] 10 mg PO TID PRN 05/21/20 12/19/20 History Mirtazapine [Remeron] 45 mg PO HS 05/21/20 12/19/20 History QUEtiapine [SEROquel] 50 mg PO HS 05/21/20 12/19/20 History Ranolazine [Ranexa] 1,000 mg PO BID 05/21/20 12/19/20 History Sertraline [Zoloft] 50 mg PO DAILY 05/21/20 12/19/20 History hydrOXYzine pamoate [Vistaril] 25 mg PO TID 05/21/20 12/19/20 History Ticagrelor [Brilinta] 90 mg PO BID tab 06/27/20 12/19/20 Rx Aspirin 81 mg PO DAILY chew 08/20/20 12/19/20 Rx lisinopriL [Zestril] 2.5 mg PO DAILY tab 08/20/20 12/19/20 Rx Ezetimibe [Zetia] 10 mg PO DAILY 30 Days #30 tab 09/15/20 12/19/20 Rx Metoprolol Tartrate [Lopressor] 50 mg PO BID 60 Days #30 tab 09/15/20 12/19/20 Rx Furosemide [Lasix] 40 mg PO DAILY 09/21/20 12/19/20 History Potassium Chloride ER [K-Dur 20] 20 meq PO DAILY 09/21/20 12/19/20 History Spironolactone [Aldactone] 25 mg PO DAILY 09/21/20 12/19/20 History Ferrous Sulfate [Iron (65 MG 325 mg PO DAILY 10/18/20 12/19/20 History Elemental)] Folic Acid 1 mg PO DAILY 10/18/20 12/19/20 History Insulin Glargine,Hum.rec.anlog 28 unit SQ BID 10/18/20 12/19/20 History [Lantus Solostar] Levothyroxine Sodium [Synthroid] 200 mcg PO DAILY 10/18/20 12/19/20 History levETIRAcetam [Keppra] 500 mg PO Q12H 10/18/20 12/19/20 History HYDROcodone/APAP 10-325MG [[place] 1 tab PO Q6H PRN 11/16/20 12/19/20 History 10-325] INSULIN ASPART (NovoLOG) [NovoLOG See Protocol SQ ACHS 11/16/20 12/19/20 History (formulary)] Pantoprazole [Protonix] 40 mg PO AC-BID tablet.dr 11/18/20 12/19/20 Rx Loperamide HCl [Imodium A-D] 2 - 4 mg PO QID PRN 12/09/20 12/19/20 History Atorvastatin [Lipitor] 80 mg PO DAILY tab 12/11/20 12/19/20 Rx INSULIN ASPART (NovoLOG) [NovoLOG 7 unit SQ ACHS vial 12/18/20 12/19/20 Rx (formulary)] Nitroglycerin Sl Tabs [Nitrostat] 0.4 mg SUBLINGUAL Q5M PRN tab 12/18/20 12/19/20 Rx Isosorbide Mononitrate ER [Imdur] 60 mg PO BID #0 tab.er.24h 12/20/20 12/19/20 Rx amLODIPine [Norvasc] 5 mg PO DAILY #90 tab 12/20/20 Rx Allergies Allergy/AdvReac Type Severity Reaction Status Date / Time gabapentin Allergy Severe Anaphylaxis Verified 12/21/20 22:18 shellfish derived [Crab] Allergy Intermediate Rash/Hives Verified 12/21/20 22:18 Physical Exam Vitals: Vital Signs Temp Pulse Resp BP Pulse Ox 12/20/20 11:49 98.2 F 59 L 16 102/54 97 12/20/20 09:00 69 16 114/58 96 12/20/20 08:00 97.9 F 63 14 112/55 96 12/20/20 06:39 56 L 14 110/52 95 12/20/20 04:00 97.7 F 54 L 16 118/59 96 12/20/20 00:36 61 18 133/67 93 L 12/19/20 23:34 58 L 18 116/70 96 12/19/20 20:48 76 18 140/86 99 12/19/20 18:10 70 18 142/74 100 12/19/20 16:03 72 18 129/60 100 12/19/20 14:23 98.7 F 78 18 167/73 96 Head normocephalic Neck supple Lungs clear to auscultation bilaterally no wheezing or crackles Heart regular rate and rhythm S1-S2, no rub or gallop Abdomen is soft nontender nondistended positive bowel sounds no hepatosplenomegaly Extremities no edema Neuro alert and orientated to 3 Results CBC & Chem 7: 12/19/20 17:45 12/19/20 17:45 Labs: Abnormal Lab Results - Last 24 Hours (Table) 12/19/20 12/19/20 Range/Units 17:45 17:45 APTT 21.8 L (22.0-30.0) sec Glucose 306 H (74-99) mg/dL Assessment and Plan Assessment: 1. Recurrent episodes of chest pain. Cardiology services consulted 2. Advanced coronary artery disease with history of CABG and history of multiple angioplasty with stent placements 3. Essential hypertension 4. History of hyperlipidemia 5. History of hypothyroidism 6. History of insulin-dependent diabetes mellitus 7. Nicotine dependence. Patient educated greater than 3 minutes on smoking cessation 8. Noncompliance with medication and follow-up visits Time with Patient: Greater than 30 (Greater than 60% of the total time spent in counseling and coordination of care)
--- NOTE | 2020-12-22 12:06 | P.DS ---
Providers Date of admission: 12/19/20 18:41 Expected date of discharge: 12/20/20 Attending physician: Jerson Aguilar Consults: 12/19/20 18:41 Consult Physician Urgent Consulting Provider: [facility] Consult Reason/Comments: Chest pain Do you want consulting provider notified?: Yes Primary care physician: Jerson Lauren [facility] Course: Diagnosis on discharge: 1. Recurrent episodes of chest pain. Cardiology services consulted 2. Advanced coronary artery disease with history of CABG and history of multiple angioplasty with stent placements 3. Essential hypertension 4. History of hyperlipidemia 5. History of hypothyroidism 6. History of insulin-dependent diabetes mellitus 7. Nicotine dependence. Patient educated greater than 3 minutes on smoking cessation 8. Noncompliance with medication and follow-up visits Hospital course: This is a 55-year-old female patient presented to the emergency room with complaints of chest pain. Patient is frequently admitted for this issue. Patient has an extensive cardiac history and continued nicotine dependence. Patient reports that she has associated nausea with pain radiating to right arm. Additional medical history includes diabetes hypertension and high cholesterol. Patient did have recent cardiac catheterization. Patient states she has been taking her medications as prescribed. COVID-19 negative. Troponin negative. BNP 1500. Labs unremarkable. Patient afebrile. Chest x-ray completed showing no acute active cardiopulmonary disease. Normal heart. No change. Cardiology services will be consulted. At this time patient denies chest pain or shortness breath. Patient denies nausea vomiting or diarrhea. Patient denies any urinary burning or frequency On 12/20/2020 patient will be discharged home. Patient cleared by cardiology services. Norvasc added. Patient advised again the importance of medication compliance and follow-up for further management of chronic cardiac conditions in the importance of smoking cessation. Patient verbalized understanding. At this time patient denies chest pain or shortness breath. Patient denies nausea vomiting or diarrhea. Patient denies any urinary burning or frequency Plan - Discharge Summary New Discharge Prescriptions: New amLODIPine [Norvasc] 5 mg PO DAILY #90 tab Continue Sertraline [Zoloft] 50 mg PO DAILY Ranolazine [Ranexa] 1,000 mg PO BID QUEtiapine [SEROquel] 50 mg PO HS Mirtazapine [Remeron] 45 mg PO HS hydrOXYzine pamoate [Vistaril] 25 mg PO TID Cyclobenzaprine [Flexeril] 10 mg PO TID PRN PRN Reason: Muscle Spasm ARIPiprazole [Abilify] 5 mg PO DAILY Ticagrelor [Brilinta] 90 mg PO BID tab Aspirin 81 mg PO DAILY chew lisinopriL [Zestril] 2.5 mg PO DAILY tab Metoprolol Tartrate [Lopressor] 50 mg PO BID 60 Days #30 tab Ezetimibe [Zetia] 10 mg PO DAILY 30 Days #30 tab Spironolactone [Aldactone] 25 mg PO DAILY Potassium Chloride ER [K-Dur 20] 20 meq PO DAILY Furosemide [Lasix] 40 mg PO DAILY levETIRAcetam [Keppra] 500 mg PO Q12H Folic Acid 1 mg PO DAILY Loperamide HCl [Imodium A-D] 2 - 4 mg PO QID PRN PRN Reason: Diarrhea Ferrous Sulfate [Iron (65 MG Elemental)] 325 mg PO DAILY Levothyroxine Sodium [Synthroid] 200 mcg PO DAILY Insulin Glargine,Hum.rec.anlog [Lantus Solostar] 28 unit SQ BID INSULIN ASPART (NovoLOG) [NovoLOG (formulary)] See Protocol SQ ACHS HYDROcodone/APAP 10-325MG [[place] 10-325] 1 tab PO Q6H PRN PRN Reason: Pain Pantoprazole [Protonix] 40 mg PO AC-BID tablet. Atorvastatin [Lipitor] 80 mg PO DAILY tab Nitroglycerin Sl Tabs [Nitrostat] 0.4 mg SUBLINGUAL Q5M PRN tab PRN Reason: Chest Pain INSULIN ASPART (NovoLOG) [NovoLOG (formulary)] 7 unit SQ ACHS vial Changed Isosorbide Mononitrate ER [Imdur] 60 mg PO BID #0 tab.er.24h Discharge Medication List ARIPiprazole [Abilify] 5 mg PO DAILY 05/21/20 [History] Cyclobenzaprine [Flexeril] 10 mg PO TID PRN 05/21/20 [History] Mirtazapine [Remeron] 45 mg PO HS 05/21/20 [History] QUEtiapine [SEROquel] 50 mg PO HS 05/21/20 [History] Ranolazine [Ranexa] 1,000 mg PO BID 05/21/20 [History] Sertraline [Zoloft] 50 mg PO DAILY 05/21/20 [History] hydrOXYzine pamoate [Vistaril] 25 mg PO TID 05/21/20 [History] Ticagrelor [Brilinta] 90 mg PO BID tab 06/27/20 [Rx] Aspirin 81 mg PO DAILY chew 08/20/20 [Rx] lisinopriL [Zestril] 2.5 mg PO DAILY tab 08/20/20 [Rx] Ezetimibe [Zetia] 10 mg PO DAILY 30 Days #30 tab 09/15/20 [Rx] Metoprolol Tartrate [Lopressor] 50 mg PO BID 60 Days #30 tab 09/15/20 [Rx] Furosemide [Lasix] 40 mg PO DAILY 09/21/20 [History] Potassium Chloride ER [K-Dur 20] 20 meq PO DAILY 09/21/20 [History] Spironolactone [Aldactone] 25 mg PO DAILY 09/21/20 [History] Ferrous Sulfate [Iron (65 MG Elemental)] 325 mg PO DAILY 10/18/20 [History] Folic Acid 1 mg PO DAILY 10/18/20 [History] Insulin Glargine,Hum.rec.anlog [Lantus Solostar] 28 unit SQ BID 10/18/20 [History] Levothyroxine Sodium [Synthroid] 200 mcg PO DAILY 10/18/20 [History] levETIRAcetam [Keppra] 500 mg PO Q12H 10/18/20 [History] HYDROcodone/APAP 10-325MG [[place] 10-325] 1 tab PO Q6H PRN 11/16/20 [History] INSULIN ASPART (NovoLOG) [NovoLOG (formulary)] See Protocol SQ ACHS 11/16/20 [History] Pantoprazole [Protonix] 40 mg PO AC-BID tablet. 11/18/20 [Rx] Loperamide HCl [Imodium A-D] 2 - 4 mg PO QID PRN 12/09/20 [History] Atorvastatin [Lipitor] 80 mg PO DAILY tab 12/11/20 [Rx] INSULIN ASPART (NovoLOG) [NovoLOG (formulary)] 7 unit SQ ACHS vial 12/18/20 [Rx] Nitroglycerin Sl Tabs [Nitrostat] 0.4 mg SUBLINGUAL Q5M PRN tab 12/18/20 [Rx] Isosorbide Mononitrate ER [Imdur] 60 mg PO BID #0 tab.er.24h 12/20/20 [Rx] amLODIPine [Norvasc] 5 mg PO DAILY #90 tab 12/20/20 [Rx] Follow up Appointment(s)/Referral(s): Elier Murillo MD [STAFF PHYSICIAN] - 2 Weeks Jerson Aguilar MD [Primary Care Provider] - 1-2 days Discharge Disposition: HOME SELF-CARE
== END 2020-12-20 13:32 | disposition home or self-care (01) ==
LOC: EC 14:05 → 6NMEDSUR 18:41
PROVIDERS: ADMIT Internal Medicine; ATTEND Internal Medicine
DX: R07.89 Other chest pain (principal); I25.10 Atherosclerotic heart disease of native coronary artery without angina pectoris; I10 Essential (primary) hypertension; I25.2 Old myocardial infarction; E11.42 Type 2 diabetes mellitus with diabetic polyneuropathy; E78.5 Hyperlipidemia, unspecified; E03.9 Hypothyroidism, unspecified; E78.00 Pure hypercholesterolemia, unspecified; J44.9 Chronic obstructive pulmonary disease, unspecified; K21.9 Gastro-esophageal reflux disease without esophagitis; G35 Multiple sclerosis; Z91.14 Patient's other noncompliance with medication regimen; K57.90 Diverticulosis of intestine, part unspecified, without perforation or abscess without bleeding; I69.354 Hemiplegia and hemiparesis following cerebral infarction affecting left non-dominant side; D64.9 Anemia, unspecified; G89.29 Other chronic pain; M54.9 Dorsalgia, unspecified; R00.2 Palpitations; R11.2 Nausea with vomiting, unspecified; R42 Dizziness and giddiness; F17.200 Nicotine dependence, unspecified, uncomplicated; R21 Rash and other nonspecific skin eruption; F31.9 Bipolar disorder, unspecified; F41.9 Anxiety disorder, unspecified; Z20.822 Contact with and (suspected) exposure to COVID-19; Z79.4 Long term (current) use of insulin; Z79.890 Hormone replacement therapy; Z79.02 Long term (current) use of antithrombotics/antiplatelets; Z79.82 Long term (current) use of aspirin; Z79.899 Other long term (current) drug therapy; Z91.013 Allergy to seafood; Z88.8 Allergy status to other drugs, medicaments and biological substances; Z87.01 Personal history of pneumonia (recurrent); Z95.1 Presence of aortocoronary bypass graft; Z95.3 Presence of xenogenic heart valve; Z87.19 Personal history of other diseases of the digestive system; Z16.12 Extended spectrum beta lactamase (ESBL) resistance; Z90.49 Acquired absence of other specified parts of digestive tract; Z95.5 Presence of coronary angioplasty implant and graft; Z95.828 Presence of other vascular implants and grafts; Z90.710 Acquired absence of both cervix and uterus; Z82.49 Family history of ischemic heart disease and other diseases of the circulatory system; Z80.1 Family history of malignant neoplasm of trachea, bronchus and lung
CPT/HCPCS: 93005 ×2; 96376 ×2; 96374; 96375; 99285; 36415; 83880; 80053; 83735; 84484 ×2; 85025; 85610; 85730; 87635; 71046; G0378 ×2; J2405; J2270 ×2

== ENCOUNTER 2020-12-21 22:10 | Emergency (ER) | payer MEDICARE, OTHER ==
[2020-12-21 22:18] VITALS: RESP 18; TEMP 98.9
[2020-12-21] MEDS ORDERED: SODIUM CHLORIDE 0.9% 500 ML 500 ML IV STA (22:20)
[2020-12-21] MEDS ORDERED: SODIUM CHLORIDE 0.9% 1,000 ML IV STA (22:20)
[2020-12-21] MEDS ORDERED: MORPHINE SULFATE 4 MG/ML SYRINGE IV STA (22:20)
--- NOTE | 2020-12-21 22:22 | ED ---
Chest Pain HPI - General Chief Complaint: Chest Pain Stated Complaint: Chest Pain Time Seen by Provider: 12/21/20 22:17 Source: patient, EMS, RN notes reviewed, old records reviewed Mode of arrival: EMS Limitations: no limitations - History of Present Illness Initial Comments: This is a 55-year-old female DF for evaluation. Patient presents today after long inpatient hospitalization for chest pain. Patient has no fevers no nausea no vomiting no diarrhea no other complaints. No travel history no sick contacts. Did take multiple loss of nitro today without help MD Complaint: chest pain -: hour(s) Onset: during rest, during exertion Pain Location: substernal, left chest Pain Radiation: LUE, jaw/teeth Severity: moderate Severity scale (1-10): 4 Quality: tightness, heaviness Consistency: constant Improves With: nothing Worsens With: nothing Context: recent illness Anginal Symptoms: nausea, dyspnea Treatments Prior to Arrival: none - Related Data Home Medications Medication Instructions Recorded Confirmed ARIPiprazole [Abilify] 5 mg PO DAILY 05/21/20 01/01/21 Cyclobenzaprine [Flexeril] 10 mg PO TID PRN 05/21/20 01/01/21 Mirtazapine [Remeron] 45 mg PO HS 05/21/20 01/01/21 QUEtiapine [SEROquel] 50 mg PO HS 05/21/20 01/01/21 Ranolazine [Ranexa] 1,000 mg PO BID 05/21/20 01/01/21 Sertraline [Zoloft] 50 mg PO DAILY 05/21/20 01/01/21 hydrOXYzine pamoate [Vistaril] 25 mg PO TID 05/21/20 01/01/21 Furosemide [Lasix] 40 mg PO DAILY 09/21/20 01/01/21 Potassium Chloride ER [K-Dur 20] 20 meq PO DAILY 09/21/20 01/01/21 Spironolactone [Aldactone] 25 mg PO DAILY 09/21/20 01/01/21 Ferrous Sulfate [Iron (65 MG 325 mg PO DAILY 10/18/20 01/01/21 Elemental)] Folic Acid 1 mg PO DAILY 10/18/20 01/01/21 Insulin Glargine,Hum.rec.anlog 28 unit SQ BID 10/18/20 01/01/21 [Lantus Solostar] Levothyroxine Sodium [Synthroid] 200 mcg PO DAILY 10/18/20 01/01/21 levETIRAcetam [Keppra] 500 mg PO Q12H 10/18/20 01/01/21 HYDROcodone/APAP 10-325MG [[place] 1 tab PO Q6H PRN 11/16/20 01/01/21 10-325] INSULIN ASPART (NovoLOG) [NovoLOG See Protocol SQ ACHS 11/16/20 01/01/21 (formulary)] Loperamide HCl [Imodium A-D] 2 - 4 mg PO QID PRN 12/09/20 01/01/21 Previous Rx's Medication Instructions Recorded Ticagrelor [Brilinta] 90 mg PO BID tab 06/27/20 Aspirin 81 mg PO DAILY chew 08/20/20 lisinopriL [Zestril] 2.5 mg PO DAILY tab 08/20/20 Ezetimibe [Zetia] 10 mg PO DAILY 30 Days #30 tab 09/15/20 Metoprolol Tartrate [Lopressor] 50 mg PO BID 60 Days #30 tab 09/15/20 Pantoprazole [Protonix] 40 mg PO AC-BID tablet. 11/18/20 Atorvastatin [Lipitor] 80 mg PO DAILY tab 12/11/20 INSULIN ASPART (NovoLOG) [NovoLOG 7 unit SQ ACHS vial 12/18/20 (formulary)] Nitroglycerin Sl Tabs [Nitrostat] 0.4 mg SUBLINGUAL Q5M PRN tab 12/18/20 Isosorbide Mononitrate ER [Imdur] 60 mg PO BID #0 tab.er.24h 12/20/20 amLODIPine [Norvasc] 5 mg PO DAILY #90 tab 12/20/20 Nystatin 100,000 Unit/gm Powd 1 applic TOPICAL TID #1 bottle 12/26/20 [Mycostatin Powder] Allergies Allergy/AdvReac Type Severity Reaction Status Date / Time gabapentin Allergy Severe Anaphylaxis Verified 01/01/21 16:06 shellfish derived [Crab] Allergy Intermediate Rash/Hives Verified 01/01/21 16:06 Review of Systems ROS Statement: Those systems with pertinent positive or pertinent negative responses have been documented in the HPI. ROS Other: All systems not noted in ROS Statement are negative. EKG Findings - EKG Comments: EKG Findings:: PG shows sinus rhythm 75 PA 174 QRS 90 QTC 473 Past Medical History Past Medical History: Coronary Artery Disease (CAD), Chest Pain / Angina, COPD, CVA/TIA, Diabetes Mellitus, GERD/Reflux, GI Bleed, Hyperlipidemia, Hypertension, Myocardial Infarction ([place]), Musculoskeletal Disorder, Pneumonia, Thyroid Disorder Additional Past Medical History / Comment(s): Pt recently admitted to [facility] on 10/29/20 with abdominal pain/colitis, aphasia/ams/L facial numbness/possible acuteischemic stroke. 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 Last Myocardial Infarction Date:: 2015 History of Any Multi-Drug Resistant Organisms: ESBL Date of last positivie culture/infection: 08/27/20 MDRO Source:: ESBL URINE Past Surgical History: Appendectomy, Bladder Surgery, Cardiac Valve Replacement, Cholecystectomy, Coronary Bypass/CABG, Heart Catheterization, Heart Catheterization With Stent, Hysterectomy Additional Past Surgical History / Comment(s): 2013 CABG 4 vessel, 2017 mitral valve replacement, PCIs with multiple stents, bilateral leg stents, bladder susupension, colonoscopy. Past Anesthesia/Blood Transfusion Reactions: No Reported Reaction Date of Last Stent Placement:: 06/25/20 Past Psychological History: Anxiety, Bipolar, Depression Smoking Status: Current every day smoker Past Alcohol Use History: None Reported Past Drug Use History: None Reported - Past Family History Father Family Medical History: Coronary Artery Disease (CAD) Additional Family Medical History / Comment(s): heart disease Mother Family Medical History: Cancer Additional Family Medical History / Comment(s): Lung cancer General Exam Limitations: no limitations General appearance: anxious Head exam: Present: atraumatic, normocephalic, normal inspection Eye exam: Present: normal appearance, PERRL, EOMI. Absent: scleral icterus, con junctival injection, periorbital swelling ENT exam: Present: normal exam, mucous membranes moist Neck exam: Present: normal inspection. Absent: tenderness, meningismus, lymphadenopathy Respiratory exam: Present: normal lung sounds bilaterally. Absent: respiratory distress, wheezes, rales, rhonchi, stridor Cardiovascular Exam: Present: regular rate, normal rhythm, normal heart sounds. Absent: systolic murmur, diastolic murmur, rubs, gallop, clicks GI/Abdominal exam: Present: soft, normal bowel sounds. Absent: distended, tenderness, guarding, rebound, rigid Extremities exam: Present: normal inspection, full ROM, normal capillary refill. Absent: tenderness, pedal edema, joint swelling, calf tenderness Back exam: Present: normal inspection Neurological exam: Present: alert, oriented X3, CN II-XII intact Psychiatric exam: Present: normal affect, normal mood Skin exam: Present: warm, dry, intact, normal color. Absent: rash Course Vital Signs 12/21/20 12/21/20 12/22/20 22:11 23:11 00:11 Temperature 98.9 F Pulse Rate 76 73 69 Respiratory 18 18 18 Rate Blood Pressure 134/70 131/63 112/63 O2 Sat by Pulse 98 100 98 Oximetry 12/22/20 00:57 Temperature 98.9 F Pulse Rate 72 Respiratory 18 Rate Blood Pressure 117/55 O2 Sat by Pulse 99 Oximetry - Reevaluation(s) Reevaluation #1: Medical record is reviewed Patient symptoms are significantly improved, care is significantly improved Patient informed results and questions answered Chest Pain MDM - MDM 55 female DF for evaluation patient Dese for evaluation of chest pain. Patient is a recent hospital admission for chest pain. At this time patient feels better and prefers discharged home Disposition Clinical Impression: Chest pain Disposition: HOME SELF-CARE Condition: Good Instructions (If sedation given, give patient instructions): Chest Pain (ED) Is patient prescribed a controlled substance at d/c from ED?: No Referrals: Jerson Aguilar MD [Primary Care Provider] - 1-2 days
[2020-12-21 22:58] LABS: Basophils % (A) 0 %; Eosinophils # (A) 0.2 k/uL (0-0.7); Eosinophils % (A) 3 %; HCT 32.7 % (34.0-46.0); HGB 11.2 gm/dL (11.4-16.0); Lymphocytes # (A) 1.1 k/uL (1.0-4.8); Lymphocytes % (A) 20 %; MCH 32.4 pg (25.0-35.0); MCHC 34.2 g/dL (31.0-37.0); MCV 94.7 fL (80.0-100.0); Mean Platelet Volume 7.8; Monocytes # (A) 0.2 k/uL (0-1.0); Monocytes % (A) 4 %; Neutrophils # (A) 3.9 k/uL (1.3-7.7); Neutrophils % (A) 72 %; Platelet Count 225 k/uL (150-450); RBC 3.46 m/uL (3.80-5.40); RDW 13.9 % (11.5-15.5); WBC 5.4 k/uL (3.8-10.6)
[2020-12-21] MEDS ORDERED: MORPHINE SULFATE 4 MG/ML SYRINGE IM STA (23:05)
--- NOTE | 2020-12-21 23:11 | XR ---
EXAMINATION TYPE: XR chest 2V DATE OF EXAM: 12/21/2020 COMPARISON: 12/19/2020 HISTORY: Chest pain TECHNIQUE: 2 views FINDINGS: There is no heart failure nor confluent pneumonic infiltrate. There are sternal wires. Ther e are chest leads. Costophrenic angles are clear. The bony thorax is intact. IMPRESSION: No active cardiopulmonary disease. No change.
[2020-12-21 23:16] LABS: INR 0.9 (<1.2); Prothrombin Time 9.8 sec (9.0-12.0)
[2020-12-21 23:18] LABS: Albumin 3.7 g/dL (3.5-5.0); Calcium 8.5 mg/dL (8.4-10.2); Magnesium 1.6 mg/dL (1.6-2.3); Potassium 3.8 mmol/L (3.5-5.1); Total Bilirubin 0.5 mg/dL (0.2-1.3); Total Protein 6.2 g/dL (6.3-8.2)
[2020-12-21 23:53] LABS: Partial Thromboplastin Time 18.3 sec (22.0-30.0)
[2020-12-22] MEDS ORDERED: HYDROmorphone 2 MG TAB PO STA (00:44)
[2020-12-22] MEDS ORDERED: LORazepam 1 MG TAB PO STA (00:44)
[2020-12-22 00:59] VITALS: BP 117/55; PULSE 72
== END 2020-12-22 01:09 | disposition home or self-care (01) ==
LOC: EC 22:10
DX: R07.9 Chest pain, unspecified (principal); J44.9 Chronic obstructive pulmonary disease, unspecified; I10 Essential (primary) hypertension; E78.5 Hyperlipidemia, unspecified; E11.40 Type 2 diabetes mellitus with diabetic neuropathy, unspecified; I25.10 Atherosclerotic heart disease of native coronary artery without angina pectoris; K21.9 Gastro-esophageal reflux disease without esophagitis; I25.2 Old myocardial infarction; E03.9 Hypothyroidism, unspecified; F41.9 Anxiety disorder, unspecified; F31.9 Bipolar disorder, unspecified; F17.200 Nicotine dependence, unspecified, uncomplicated; Z86.73 Personal history of transient ischemic attack (TIA), and cerebral infarction without residual deficits; Z79.4 Long term (current) use of insulin; Z79.82 Long term (current) use of aspirin; Z79.890 Hormone replacement therapy; Z95.1 Presence of aortocoronary bypass graft
CPT/HCPCS: 36415; 93005; 83880; 80053; 82550; 83690; 83735; 84484; 85025; 85610; 85730; 71046; 99285; 96372; J2270

== ENCOUNTER 2020-12-23 16:24 | Emergency (ER) | payer MEDICARE, OTHER ==
[2020-12-23 16:35] VITALS: RESP 18
--- NOTE | 2020-12-23 16:51 | ED ---
General Adult HPI - General Chief complaint: Chest Pain Stated complaint: Chest pain Time Seen by Provider: 12/23/20 16:28 Source: patient, EMS, RN notes reviewed, old records reviewed Mode of arrival: EMS Limitations: no limitations - History of Present Illness Initial comments: 55-year-old female presents with recurrent chest pain. Known history of CAD. Patient had been seen at outside hospital yesterday and at this institution 2 days ago. She's had multiple visits with the similar complaint. She has known history of CAD and states she has contacted her manager neonatal regarding these symptoms. No associated vomiting or diaphoresis. Pain is central chest radiating to the right side. - Related Data Home Medications Medication Instructions Recorded Confirmed ARIPiprazole [Abilify] 5 mg PO DAILY 05/21/20 12/19/20 Cyclobenzaprine [Flexeril] 10 mg PO TID PRN 05/21/20 12/19/20 Mirtazapine [Remeron] 45 mg PO HS 05/21/20 12/19/20 QUEtiapine [SEROquel] 50 mg PO HS 05/21/20 12/19/20 Ranolazine [Ranexa] 1,000 mg PO BID 05/21/20 12/19/20 Sertraline [Zoloft] 50 mg PO DAILY 05/21/20 12/19/20 hydrOXYzine pamoate [Vistaril] 25 mg PO TID 05/21/20 12/19/20 Furosemide [Lasix] 40 mg PO DAILY 09/21/20 12/19/20 Potassium Chloride ER [K-Dur 20] 20 meq PO DAILY 09/21/20 12/19/20 Spironolactone [Aldactone] 25 mg PO DAILY 09/21/20 12/19/20 Ferrous Sulfate [Iron (65 MG 325 mg PO DAILY 10/18/20 12/19/20 Elemental)] Folic Acid 1 mg PO DAILY 10/18/20 12/19/20 Insulin Glargine,Hum.rec.anlog 28 unit SQ BID 10/18/20 12/19/20 [Lantus Solostar] Levothyroxine Sodium [Synthroid] 200 mcg PO DAILY 10/18/20 12/19/20 levETIRAcetam [Keppra] 500 mg PO Q12H 10/18/20 12/19/20 HYDROcodone/APAP 10-325MG [Beasley 1 tab PO Q6H PRN 11/16/20 12/19/20 10-325] INSULIN ASPART (NovoLOG) [NovoLOG See Protocol SQ ACHS 11/16/20 12/19/20 (formulary)] Loperamide HCl [Imodium A-D] 2 - 4 mg PO QID PRN 12/09/20 12/19/20 Previous Rx's Medication Instructions Recorded Ticagrelor [Brilinta] 90 mg PO BID tab 06/27/20 Aspirin 81 mg PO DAILY chew 08/20/20 lisinopriL [Zestril] 2.5 mg PO DAILY tab 08/20/20 Ezetimibe [Zetia] 10 mg PO DAILY 30 Days #30 tab 09/15/20 Metoprolol Tartrate [Lopressor] 50 mg PO BID 60 Days #30 tab 09/15/20 Pantoprazole [Protonix] 40 mg PO AC-BID tablet. 11/18/20 Atorvastatin [Lipitor] 80 mg PO DAILY tab 12/11/20 INSULIN ASPART (NovoLOG) [NovoLOG 7 unit SQ ACHS vial 12/18/20 (formulary)] Nitroglycerin Sl Tabs [Nitrostat] 0.4 mg SUBLINGUAL Q5M PRN tab 12/18/20 Isosorbide Mononitrate ER [Imdur] 60 mg PO BID #0 tab.er.24h 12/20/20 amLODIPine [Norvasc] 5 mg PO DAILY #90 tab 12/20/20 Allergies Allergy/AdvReac Type Severity Reaction Status Date / Time gabapentin Allergy Severe Anaphylaxis Verified 12/21/20 22:18 shellfish derived [Crab] Allergy Intermediate Rash/Hives Verified 12/21/20 22:18 Review of Systems ROS Statement: Those systems with pertinent positive or pertinent negative responses have been documented in the HPI. ROS Other: All systems not noted in ROS Statement are negative. Past Medical History Past Medical History: Coronary Artery Disease (CAD), Chest Pain / Angina, COPD, CVA/TIA, Diabetes Mellitus, GERD/Reflux, GI Bleed, Hyperlipidemia, Hypertension, Myocardial Infarction ([place]), Musculoskeletal Disorder, Pneumonia, Thyroid Disord er Additional Past Medical History / Comment(s): Pt recently admitted to [facility] on 10/29/20 with abdominal pain/colitis, aphasia/ams/L facial numbness/possible acuteischemic stroke. 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 Last Myocardial Infarction Date:: 2015 History of Any Multi-Drug Resistant Organisms: ESBL Date of last positivie culture/infection: 08/27/20 MDRO Source:: ESBL URINE Past Surgical History: Appendectomy, Bladder Surgery, Cardiac Valve Replacement, Cholecystectomy, Coronary Bypass/CABG, Heart Catheterization, Heart Catheterization With Stent, Hysterectomy Additional Past Surgical History / Comment(s): 2013 CABG 4 vessel, 2016 mitral valve replacement, PCIs with multiple stents, bilateral leg stents, bladder susupension, colonoscopy. Past Anesthesia/Blood Transfusion Reactions: No Reported Reaction Date of Last Stent Placement:: 06/25/20 Past Psychological History: Anxiety, Bipolar, Depression Smoking Status: Current every day smoker Past Alcohol Use History: None Reported Past Drug Use History: None Reported - Past Family History Father Family Medical History: Coronary Artery Disease (CAD) Additional Family Medical History / Comment(s): heart disease Mother Family Medical History: Cancer Additional Family Medical History / Comment(s): Lung cancer General Exam Limitations: no limitations General appearance: alert, in no apparent distress Head exam: Present: atraumatic Eye exam: Present: normal appearance, PERRL ENT exam: Present: normal exam Neck exam: Present: normal inspection. Absent: tenderness, meningismus Respiratory exam: Present: normal lung sounds bilaterally. Absent: respiratory distress, wheezes Cardiovascular Exam: Present: regular rate, normal rhythm GI/Abdominal exam: Present: soft. Absent: distended, tenderness, guarding, rebound Extremities exam: Present: other (Hematoma right calf) Neurological exam: Present: alert, oriented X3, CN II-XII intact. Absent: motor sensory deficit Course Vital Signs 12/23/20 12/23/20 12/23/20 16:28 18:42 20:02 Temperature 99.9 F H Pulse Rate 81 62 71 Respiratory 18 18 18 Rate Blood Pressure 125/72 121/64 142/62 O2 Sat by Pulse 98 95 100 Oximetry EKG Findings - EKG Comments: EKG Findings:: EKG: Normal sinus rhythm prolonged QT, rate of 81, IA interval 162, QRS duration 90, QTC 497 Medical Decision Making - Medical Decision Making 55-year-old female with recurrent chest pain. EKG sinus rhythm without ST segment elevation. Chest x-rays negative for acute cardio pulmonary disease. She has a normal CBC, CMP showing elevated blood glucose with no other acute findings. Troponin is negative. There was difficulty with the lab draw and this was drawn at greater than 3 hours into the patient's ER stay. This represents a 3 hour troponin which is negative. I discussed case with Dr. Aguilar who is familiar with this patient and has admitted this patient approximately 15 times this year. He is agreeable with discharge and outpatient follow-up. I will advise the patient follow-up with her manager neonatal and primary care on an outpatient basis. - Lab Data Result diagrams: 12/23/20 16:48 12/23/20 16:48 Lab Results 12/23/20 12/23/20 12/23/20 Range/Units 16:41 16:41 16:48 WBC 6.3 (3.8-10.6) k/uL RBC 3.97 (3.80-5.40) m/uL Hgb 12.3 (11.4-16.0) gm/dL Hct 37.9 (34.0-46.0) % MCV 95.4 (80.0-100.0) fL MCH 30.9 (25.0-35.0) pg MCHC 32.4 (31.0-37.0) g/dL RDW 14.6 (11.5-15.5) % Plt Count 297 (150-450) k/uL MPV 7.1 Neutrophils % 76 % Lymphocytes % 19 % Monocytes % 3 % Eosinophils % 1 % Basophils % 0 % Neutrophils # 4.7 (1.3-7.7) k/uL Lymphocytes # 1.2 (1.0-4.8) k/uL Monocytes # 0.2 (0-1.0) k/uL Eosinophils # 0.1 (0-0.7) k/uL Basophils # 0.0 (0-0.2) k/uL PT 9.8 (9.0-12.0) sec INR 0.9 (<1.2) APTT 22.1 (22.0-30.0) sec Sodium (137-145) mmol/L Potassium (3.5-5.1) mmol/L Chloride (98-107) mmol/L Carbon Dioxide (22-30) mmol/L Anion Gap mmol/L BUN (7-17) mg/dL Creatinine (0.52-1.04) mg/dL Est GFR (CKD-EPI)AfAm (>60 ml/min/1.73 sqM) Est GFR (CKD-EPI)NonAf (>60 ml/min/1.73 sqM) Glucose (74-99) mg/dL Calcium (8.4-10.2) mg/dL Magnesium (1.6-2.3) mg/dL Total Bilirubin (0.2-1.3) mg/dL AST (14-36) U/L ALT (4-34) U/L Alkaline Phosphatase (38-126) U/L Troponin I <0.012 (0.000-0.034) ng/mL Total Protein (6.3-8.2) g/dL Albumin (3.5-5.0) g/dL 12/23/20 Range/Units 16:48 WBC (3.8-10.6) k/uL RBC (3.80-5.40) m/uL Hgb (11.4-16.0) gm/dL Hct (34.0-46.0) % MCV (80.0-100.0) fL MCH (25.0-35.0) pg MCHC (31.0-37.0) g/dL RDW (11.5-15.5) % Plt Count (150-450) k/uL MPV Neutrophils % % Lymphocytes % % Monocytes % % Eosinophils % % Basophils % % Neutrophils # (1.3-7.7) k/uL Lymphocytes # (1.0-4.8) k/uL Monocytes # (0-1.0) k/uL Eosinophils # (0-0.7) k/uL Basophils # (0-0.2) k/uL PT (9.0-12.0) sec INR (<1.2) APTT (22.0-30.0) sec Sodium 137 (137-145) mmol/L Potassium 3.8 (3.5-5.1) mmol/L Chloride 103 (98-107) mmol/L Carbon Dioxide 25 (22-30) mmol/L Anion Gap 9 mmol/L BUN 9 (7-17) mg/dL Creatinine 0.75 (0.52-1.04) mg/dL Est GFR (CKD-EPI)AfAm >90 (>60 ml/min/1.73 sqM) Est GFR (CKD-EPI)NonAf >90 (>60 ml/min/1.73 sqM) Glucose 337 H (74-99) mg/dL Calcium 9.1 (8.4-10.2) mg/dL Magnesium 1.8 (1.6-2.3) mg/dL Total Bilirubin 0.2 (0.2-1.3) mg/dL AST 21 (14-36) U/L ALT 10 (4-34) U/L Alkaline Phosphatase 95 (38-126) U/L Troponin I (0.000-0.034) ng/mL Total Protein 6.4 (6.3-8.2) g/dL Albumin 4.0 (3.5-5.0) g/dL Disposition Clinical Impression: Chest pain Disposition: HOME SELF-CARE Condition: Fair Instructions (If sedation given, give patient instructions): Chest Pain (ED) Is patient prescribed a controlled substance at d/c from ED?: No Referrals: Jerson Aguilar MD [Primary Care Provider] - 1-2 days Time of Disposition: 21:04
[2020-12-23 18:01] LABS: Basophils % (A) 0 %; Eosinophils # (A) 0.1 k/uL (0-0.7); Eosinophils % (A) 1 %; HCT 37.9 % (34.0-46.0); HGB 12.3 gm/dL (11.4-16.0); Lymphocytes # (A) 1.2 k/uL (1.0-4.8); Lymphocytes % (A) 19 %; MCH 30.9 pg (25.0-35.0); MCHC 32.4 g/dL (31.0-37.0); MCV 95.4 fL (80.0-100.0); Mean Platelet Volume 7.1; Monocytes # (A) 0.2 k/uL (0-1.0); Monocytes % (A) 3 %; Neutrophils # (A) 4.7 k/uL (1.3-7.7); Neutrophils % (A) 76 %; Platelet Count 297 k/uL (150-450); RBC 3.97 m/uL (3.80-5.40); RDW 14.6 % (11.5-15.5); WBC 6.3 k/uL (3.8-10.6)
[2020-12-23 18:11] LABS: ALT 10 U/L (4-34); AST 21 U/L (14-36); African American GFR (CKD) >90 (>60 ml/min/1.73 sqM); Alkaline Phosphatase 95 U/L (38-126); Anion Gap 9 mmol/L; Blood Urea Nitrogen 9 mg/dL (7-17); Calcium 9.1 mg/dL (8.4-10.2); Carbon Dioxide 25 mmol/L (22-30); Chloride 103 mmol/L (98-107); Glucose 337 mg/dL (74-99); Magnesium 1.8 mg/dL (1.6-2.3); Non-African American GFR(CKD) >90 (>60 ml/min/1.73 sqM); Potassium 3.8 mmol/L (3.5-5.1); Sodium 137 mmol/L (137-145); Total Bilirubin 0.2 mg/dL (0.2-1.3); Total Protein 6.4 g/dL (6.3-8.2)
[2020-12-23] MEDS ORDERED: ONDANSETRON 4 MG/2 ML VIAL IVP STA (18:28)
[2020-12-23] MEDS ORDERED: MORPHINE SULFATE 2 MG/ML SYRINGE IVP STA (18:28)
--- NOTE | 2020-12-23 18:31 | XR ---
EXAMINATION: XR chest 2V DATE AND TIME: 12/23/2020 5:18 PM CLINICAL INDICATION: PHH; Chest Pain TECHNIQUE: Departmental protocol COMPARISON: 12/21/2020 FINDINGS: The lungs are clear. The pleural spaces are negative. The cardiac silhouette is not enlarged. The remainder of the mediastinal silhouette is unremarkable. The skeletal structures and soft tissues are negative for acute findings. IMPRESSION: No acute radiographic process.
[2020-12-23] MEDS ORDERED: ONDANSETRON 4 MG/2 ML VIAL IM STA (18:38)
[2020-12-23] MEDS ORDERED: MORPHINE SULFATE 2 MG/ML SYRINGE IM STA (18:39)
[2020-12-23] MEDS ORDERED: MORPHINE SULFATE 4 MG/ML SYRINGE IVP STA (20:03)
[2020-12-23 20:31] LABS: INR 0.9 (<1.2); Partial Thromboplastin Time 22.1 sec (22.0-30.0); Prothrombin Time 9.8 sec (9.0-12.0)
[2020-12-23 21:32] VITALS: BP 142/86; PULSE 89; TEMP 98.7
== END 2020-12-23 21:33 | disposition home or self-care (01) ==
LOC: EC 16:24
DX: R07.9 Chest pain, unspecified (principal); I10 Essential (primary) hypertension; J44.9 Chronic obstructive pulmonary disease, unspecified; E11.40 Type 2 diabetes mellitus with diabetic neuropathy, unspecified; E78.5 Hyperlipidemia, unspecified; E03.9 Hypothyroidism, unspecified; F31.9 Bipolar disorder, unspecified; F41.9 Anxiety disorder, unspecified; I25.10 Atherosclerotic heart disease of native coronary artery without angina pectoris; I25.2 Old myocardial infarction; K21.9 Gastro-esophageal reflux disease without esophagitis; F17.200 Nicotine dependence, unspecified, uncomplicated; Z86.73 Personal history of transient ischemic attack (TIA), and cerebral infarction without residual deficits; Z79.4 Long term (current) use of insulin; Z79.82 Long term (current) use of aspirin; Z79.899 Other long term (current) drug therapy; Z95.1 Presence of aortocoronary bypass graft; Z79.890 Hormone replacement therapy
CPT/HCPCS: 36415; 71046; 80053; 83735; 84484; 85025; 85610; 85730; 93005; 96372; 96374; 99285

== ENCOUNTER 2020-12-25 11:43 | Observation (INO) | payer MEDICARE, OTHER ==
[2020-12-25] MEDS ORDERED: ASPIRIN 81 MG PO STA (11:53)
[2020-12-25] MEDS ORDERED: NITROGLYCERIN OINT 1 INCH/GM PACKET TOPICAL STA (11:53)
--- NOTE | 2020-12-25 11:57 | ED ---
General Adult HPI - General Chief complaint: Chest Pain Stated complaint: Chest Pain Time Seen by Provider: 12/25/20 11:43 Source: patient, EMS, RN notes reviewed, old records reviewed Mode of arrival: EMS Limitations: no limitations - History of Present Illness Initial comments: This is a 55-year-old female presents emergency Department complaining of chest pain. Patient states radiates to her left arm hurts on her back. Patient states she's also short of breath with the chest pain. Patient states it started at 9:30 this morning. Patient states she has an extensive cardiac history she has diabetes hypertension high cholesterol and she is a smoker. Patient states she's had 32 stents placed in the past. Patient states she took a bunch of nitros at home and it did not have any relief. Patient denies abdominal pain patient denies nausea vomiting diarrhea. Patient denies any swelling to the legs or calf tenderness. Patient states she has a hematoma on her right leg from getting it caught in a door the other day. Patient denies any difficulty walking and denies any joint pain. - Related Data Home Medications Medication Instructions Recorded Confirmed ARIPiprazole [Abilify] 5 mg PO DAILY 05/21/20 12/25/20 Cyclobenzaprine [Flexeril] 10 mg PO TID PRN 05/21/20 12/25/20 Mirtazapine [Remeron] 45 mg PO HS 05/21/20 12/25/20 QUEtiapine [SEROquel] 50 mg PO HS 05/21/20 12/25/20 Ranolazine [Ranexa] 1,000 mg PO BID 05/21/20 12/25/20 Sertraline [Zoloft] 50 mg PO DAILY 05/21/20 12/25/20 hydrOXYzine pamoate [Vistaril] 25 mg PO TID 05/21/20 12/25/20 Furosemide [Lasix] 40 mg PO DAILY 09/21/20 12/25/20 Potassium Chloride ER [K-Dur 20] 20 meq PO DAILY 09/21/20 12/25/20 Spironolactone [Aldactone] 25 mg PO DAILY 09/21/20 12/25/20 Ferrous Sulfate [Iron (65 MG 325 mg PO DAILY 10/18/20 12/25/20 Elemental)] Folic Acid 1 mg PO DAILY 10/18/20 12/25/20 Insulin Glargine,Hum.rec.anlog 28 unit SQ BID 10/18/20 12/25/20 [Lantus Solostar] Levothyroxine Sodium [Synthroid] 200 mcg PO DAILY 10/18/20 12/25/20 levETIRAcetam [Keppra] 500 mg PO Q12H 10/18/20 12/25/20 HYDROcodone/APAP 10-325MG [Purmela 1 tab PO Q6H PRN 11/16/20 12/25/20 10-325] INSULIN ASPART (NovoLOG) [NovoLOG See Protocol SQ ACHS 11/16/20 12/25/20 (formulary)] Loperamide HCl [Imodium A-D] 2 - 4 mg PO QID PRN 12/09/20 12/25/20 Previous Rx's Medication Instructions Recorded Ticagrelor [Brilinta] 90 mg PO BID tab 06/27/20 Aspirin 81 mg PO DAILY chew 08/20/20 lisinopriL [Zestril] 2.5 mg PO DAILY tab 08/20/20 Ezetimibe [Zetia] 10 mg PO DAILY 30 Days #30 tab 09/15/20 Metoprolol Tartrate [Lopressor] 50 mg PO BID 60 Days #30 tab 09/15/20 Pantoprazole [Protonix] 40 mg PO AC-BID tablet. 11/18/20 Atorvastatin [Lipitor] 80 mg PO DAILY tab 12/11/20 INSULIN ASPART (NovoLOG) [NovoLOG 7 unit SQ ACHS vial 12/18/20 (formulary)] Nitroglycerin Sl Tabs [Nitrostat] 0.4 mg SUBLINGUAL Q5M PRN tab 12/18/20 Isosorbide Mononitrate ER [Imdur] 60 mg PO BID #0 tab.er.24h 12/20/20 amLODIPine [Norvasc] 5 mg PO DAILY #90 tab 12/20/20 Allergies Allergy/AdvReac Type Severity Reaction Status Date / Time gabapentin Allergy Severe Anaphylaxis Verified 12/25/20 13:35 shellfish derived [Crab] Allergy Intermediate Rash/Hives Verified 12/25/20 13:35 Review of Systems ROS Statement: Those systems with pertinent positive or pertinent negative responses have been documented in the HPI. ROS Other: All systems not noted in ROS Statement are negative. Past Medical History Past Medical History: Coronary Artery Disease (CAD), Chest Pain / Angina, COPD, CVA/TIA, Diabetes Mellitus, GERD/Reflux, GI Bleed, Hyperlipidemia, Hypertension, Myocardial Infarction ([place]), Musculoskeletal Disorder, Pneumonia, Thyroid Diso rder Additional Past Medical History / Comment(s): Pt recently admitted to [facility] on 10/29/20 with abdominal pain/colitis, aphasia/ams/L facial numbness/possible acuteischemic stroke. 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 Last Myocardial Infarction Date:: 2015 History of Any Multi-Drug Resistant Organisms: ESBL Date of last positivie culture/infection: 08/27/20 MDRO Source:: ESBL URINE Past Surgical History: Appendectomy, Bladder Surgery, Cardiac Valve Replacement, Cholecystectomy, Coronary Bypass/CABG, Heart Catheterization, Heart Catheterization With Stent, Hysterectomy Additional Past Surgical History / Comment(s): 2013 CABG 4 vessel, 2016 mitral valve replacement, PCIs with multiple stents, bilateral leg stents, bladder susupension, colonoscopy. Past Anesthesia/Blood Transfusion Reactions: No Reported Reaction Date of Last Stent Placement:: 06/25/20 Past Psychological History: Anxiety, Bipolar, Depression Smoking Status: Former smoker Past Alcohol Use History: None Reported Past Drug Use History: None Reported - Past Family History Father Family Medical History: Coronary Artery Disease (CAD) Additional Family Medical History / Comment(s): heart disease Mother Family Medical History: Cancer Additional Family Medical History / Comment(s): Lung cancer General Exam - General Exam Comments Initial Comments: GENERAL: Patient is well-developed and well-nourished. Patient is nontoxic and well- hydrated and is in mild distress. ENT: Neck is soft and supple. No significant lymphadenopathy is noted. Oropharynx is clear. Moist mucous membranes. Neck has full range of motion without eliciting any pain. EYES: The sclera were anicteric and conjunctiva were pink and moist. Extraocular movements were intact and pupils were equal round and reactive to light. Eyelids were unremarkable. PULMONARY: Unlabored respirations. Good breath sounds bilaterally. No audible rales rhonchi or wheezing was noted. CARDIOVASCULAR: There is a regular rate and rhythm without any murmurs gallops or rubs. ABDOMEN: Soft and nontender with normal bowel sounds. SKIN: Skin is clear with no lesions or rashes and otherwise unremarkable. NEUROLOGIC: Patient is alert and oriented x3. Cranial nerves II through XII are grossly intact. Motor and sensory are also intact. Normal speech, volume and content. Symmetrical smile. MUSCULOSKELETAL: Normal extremities with adequate strength and full range of motion. There is an area of swelling to the medial aspect of the mid right leg consistent with a hematoma. No lower extremity swelling or edema. No calf tenderness. LYMPHATICS: No significant lymphadenopathy is noted PSYCHIATRIC: Normal psychiatric evaluation. Limitations: no limitations Course Vital Signs 12/25/20 11:45 Temperature 99.2 F Pulse Rate 85 Respiratory 18 Rate Blood Pressure 145/75 O2 Sat by Pulse 100 Oximetry Medical Decision Making - Medical Decision Making EKG shows normal sinus rhythm at 81 bpm LA interval is on a 58 QRS is 94 QT interval is 428 QTC is 497. Patient's EKG shows no ST segment elevation or depression. Patient's EKG is consistent with previous EKG she has had an Chest x-ray shows no acute abnormality. I spoke with Dr. Aguilar he agreed to admit the patient admitted the patient I c onsult cardiology and psychiatry - Lab Data Result diagrams: 12/25/20 13:50 12/25/20 12:36 Lab Results 12/25/20 12/25/20 12/25/20 Range/Units 12:36 12:36 13:50 WBC 5.4 (3.8-10.6) k/uL RBC 3.66 L (3.80-5.40) m/uL Hgb 11.8 (11.4-16.0) gm/dL Hct 35.1 (34.0-46.0) % MCV 95.9 (80.0-100.0) fL MCH 32.4 (25.0-35.0) pg MCHC 33.8 (31.0-37.0) g/dL RDW 14.0 (11.5-15.5) % Plt Count 283 (150-450) k/uL MPV 7.6 Neutrophils % 74 % Lymphocytes % 20 % Monocytes % 3 % Eosinophils % 1 % Basophils % 0 % Neutrophils # 4.0 (1.3-7.7) k/uL Lymphocytes # 1.1 (1.0-4.8) k/uL Monocytes # 0.2 (0-1.0) k/uL Eosinophils # 0.1 (0-0.7) k/uL Basophils # 0.0 (0-0.2) k/uL Sodium 136 L (137-145) mmol/L Potassium 3.2 L (3.5-5.1) mmol/L Chloride 105 (98-107) mmol/L Carbon Dioxide 19 L (22-30) mmol/L Anion Gap 12 mmol/L BUN 5 L (7-17) mg/dL Creatinine 0.65 (0.52-1.04) mg/dL Est GFR (CKD-EPI)AfAm >90 (>60 ml/min/1.73 sqM) Est GFR (CKD-EPI)NonAf >90 (>60 ml/min/1.73 sqM) Glucose 453 H (74-99) mg/dL Calcium 9.1 (8.4-10.2) mg/dL Magnesium 1.8 (1.6-2.3) mg/dL Total Bilirubin 0.4 (0.2-1.3) mg/dL AST 25 (14-36) U/L ALT 13 (4-34) U/L Alkaline Phosphatase 85 (38-126) U/L Troponin I <0.012 (0.000-0.034) ng/mL Total Protein 6.3 (6.3-8.2) g/dL Albumin 3.9 (3.5-5.0) g/dL Disposition Clinical Impression: Chest pain, Anxiety Disposition: ADMITTED IP TO THIS HOSP Referrals: None,Stated [REFERRING] - 1-2 days Time of Disposition: 14:40
[2020-12-25 12:49] LABS: ALT 13 U/L (4-34); AST 25 U/L (14-36); African American GFR (CKD) >90 (>60 ml/min/1.73 sqM); Albumin 3.9 g/dL (3.5-5.0); Alkaline Phosphatase 85 U/L (38-126); Anion Gap 12 mmol/L; Blood Urea Nitrogen 5 mg/dL (7-17); Calcium 9.1 mg/dL (8.4-10.2); Carbon Dioxide 19 mmol/L (22-30); Chloride 105 mmol/L (98-107); Glucose 453 mg/dL (74-99); Magnesium 1.8 mg/dL (1.6-2.3); Non-African American GFR(CKD) >90 (>60 ml/min/1.73 sqM); Potassium 3.2 mmol/L (3.5-5.1); Sodium 136 mmol/L (137-145); Total Bilirubin 0.4 mg/dL (0.2-1.3); Total Protein 6.3 g/dL (6.3-8.2)
--- NOTE | 2020-12-25 13:00 | XR ---
EXAMINATION TYPE: XR chest 2V DATE OF EXAM: 12/25/2020 COMPARISON: 12/23/2020 HISTORY: 55-year-old female with chest pain TECHNIQUE: AP and lateral views FINDINGS: Median sternotomy wires. Prosthetic cardiac valve. Aorta within normal limits. Mild interstitial prom inence is unchanged. Mild peribronchial cuffing is noted. No consolidation or pleural effusion. Coron ariana stents. IMPRESSION: Coronary stents. Chronic changes. No acute process seen.
[2020-12-25 13:54] LABS: Basophils % (A) 0 %; Eosinophils # (A) 0.1 k/uL (0-0.7); Eosinophils % (A) 1 %; HCT 35.1 % (34.0-46.0); HGB 11.8 gm/dL (11.4-16.0); Lymphocytes # (A) 1.1 k/uL (1.0-4.8); Lymphocytes % (A) 20 %; MCH 32.4 pg (25.0-35.0); MCHC 33.8 g/dL (31.0-37.0); MCV 95.9 fL (80.0-100.0); Mean Platelet Volume 7.6; Monocytes # (A) 0.2 k/uL (0-1.0); Monocytes % (A) 3 %; Neutrophils % (A) 74 %; Platelet Count 283 k/uL (150-450); RBC 3.66 m/uL (3.80-5.40); WBC 5.4 k/uL (3.8-10.6)
[2020-12-25 14:25] LABS: INR 0.9 (<1.2); Prothrombin Time 10.1 sec (9.0-12.0)
[2020-12-25 14:36] LABS: Partial Thromboplastin Time 21.7 sec (22.0-30.0)
[2020-12-25] MEDS ORDERED: NITROGLYCERIN SL TABS 0.4 MG TAB SUBLINGUAL PRN (14:41)
[2020-12-25] MEDS ORDERED: INSULIN REGULAR 100 UNIT/ML VIAL (IV) IV ONE (15:12)
[2020-12-25 15:31] LABS: Glucose,Whole Blood 397 mg/dL (75-99)
[2020-12-25] MEDS ORDERED: LOPERAMIDE 2 MG CAP PO PRN (16:59)
[2020-12-25] MEDS ORDERED: CYCLOBENZAPRINE 10 MG TAB PO PRN (16:59)
[2020-12-25] MEDS ORDERED: HYDROcodone/APAP 10-325MG 1 EACH TAB PO PRN (16:59)
[2020-12-25] MEDS ORDERED: ONDANSETRON 4 MG/2 ML VIAL IVP PRN (17:05)
[2020-12-25 17:21] LABS: Glucose,Whole Blood 130 mg/dL (75-99)
[2020-12-25] MEDS: INSULIN ASPART (NovoLOG) 100 UNIT/ML VIAL SQ SCH ×4 (17:27→20:34)
[2020-12-25] MEDS: PANTOPRAZOLE 40 MG TABLET PO SCH (17:38)
[2020-12-25] MEDS: NITROGLYCERIN OINT 1 INCH/GM PACKET TOPICAL SCH ×2 (17:38→23:39)
[2020-12-25] MEDS: levETIRAcetam 500 MG TAB PO SCH (19:45)
[2020-12-25] MEDS: hydrOXYzine pamoate 25 MG CAP PO SCH (19:45)
[2020-12-25] MEDS: RANOLAZINE 500 MG TAB.ER.12H PO SCH (19:45)
[2020-12-25] MEDS: ISOSORBIDE MONONITRATE ER 60 MG TAB.ER.24H PO SCH (19:45)
[2020-12-25] MEDS: METOPROLOL TARTRATE 50 MG TAB PO SCH (19:45)
[2020-12-25] MEDS: TICAGRELOR 90 MG TAB PO SCH (19:46)
[2020-12-25] MEDS: NYSTATIN 100,000 UNIT/GM POWD 15 GM TOPICAL SCH (19:46)
[2020-12-25 20:14] LABS: Glucose,Whole Blood 272 mg/dL (75-99)
[2020-12-25] MEDS: INSULIN DETEMIR (LEVEMIR) 100 UNIT/ML SYR SQ SCH (20:34)
[2020-12-25] MEDS ORDERED: QUEtiapine 50 MG TAB PO SCH (21:00)
[2020-12-25] MEDS ORDERED: MIRTAZAPINE 45 MG TABLET PO SCH (21:00)
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
[2020-12-26 02:56] VITALS: TEMP 97.5
[2020-12-26] MEDS: NITROGLYCERIN OINT 1 INCH/GM PACKET TOPICAL SCH (04:27)
[2020-12-26] MEDS ORDERED: LEVOTHYROXINE 100 MCG TAB PO SCH (06:30)
[2020-12-26] MEDS ORDERED: Potassium Replacement Protocol 1 EACH MISC MISCELLANE PRN ×2 (06:57→08:51)
[2020-12-26 07:01] LABS: Glucose,Whole Blood 130 mg/dL (75-99)
[2020-12-26 07:45] VITALS: BP 94/60; PULSE 55; RESP 14
[2020-12-26 08:08] LABS: HCT 36.5 % (34.0-46.0); HGB 11.8 gm/dL (11.4-16.0); MCH 30.8 pg (25.0-35.0); MCHC 32.3 g/dL (31.0-37.0); MCV 95.2 fL (80.0-100.0); Mean Platelet Volume 7.1; Platelet Count 278 k/uL (150-450); RBC 3.83 m/uL (3.80-5.40); RDW 14.7 % (11.5-15.5)
[2020-12-26 08:26] LABS: ALT 11 U/L (4-34); AST 37 U/L (14-36); African American GFR (CKD) >90 (>60 ml/min/1.73 sqM); Albumin 3.6 g/dL (3.5-5.0); Albumin/Globulin Ratio 1.4; Alkaline Phosphatase 63 U/L (38-126); Anion Gap 8 mmol/L; Blood Urea Nitrogen 11 mg/dL (7-17); Calcium 8.7 mg/dL (8.4-10.2); Carbon Dioxide 22 mmol/L (22-30); Chloride 109 mmol/L (98-107); Globulin 2.6 g/dL; Glucose 128 mg/dL (74-99); Non-African American GFR(CKD) 78 (>60 ml/min/1.73 sqM); Potassium 3.4 mmol/L (3.5-5.1); Sodium 139 mmol/L (137-145); Total Bilirubin 0.6 mg/dL (0.2-1.3); Total Protein 6.2 g/dL (6.3-8.2)
--- NOTE | 2020-12-26 08:30 | P.CRDCN ---
History of Present Illness Consult date: 12/26/20 Chief complaint: Chest discomfort/abdominal discomfort History of present illness: This is another admission for this 55-year-old female patient with recurrent hospital admissions with a chest discomfort. She is known to have severe chill vessel coronary artery disease with multiple angioplasties in the past with the last heart catheterization from September showing patent ROBLES to LAD as well as chronic total occlusion of multiple stents in the left circumflex and also patent stent in the RCA. Beside that she does have diabetes and hypertension and dyslipidemia and also she does have bioprosthetic mitral valve. She just was seen in the emergency department few weeks ago when she came in with a chest discomfort and unremarkable cardiac workup and at that point we increase the dose of Ranexa thousand milligrams by mouth twice a day. She was on isosorbide mononitrate 60 mg by mouth twice a day as well. This time she presented back co mplaining of chest discomfort and abdominal discomfort. She tried nitroglycerin with mild improvement in her symptoms. She denies any shortness of breath or dizziness or lightheadedness or any presyncope or syncope but she was experiencing what it seems to be abdominal discomfort and when I talk to her today she is pointing to the left lower quadrant abdomen. The EKG this time showed sinus rhythm with nonspecific ST and T wave abnormalities. The cardiac enzymes came in to be unremarkable. She was seen by the psychiatric service and she was diagnosed with depression as well as anxiety. They advised medical treatment at this point and follow-up. Past Medical History Past Medical History: Coronary Artery Disease (CAD), Chest Pain / Angina, COPD, CVA/TIA, Diabetes Mellitus, GERD/Reflux, GI Bleed, Hyperlipidemia, Hypertension, Myocardial Infarction ([place]), Musculoskeletal Disorder, Pneumonia, Thyroid Disorder Additional Past Medical History / Comment(s): Pt was recently admitted to [facility] for cardiac related issues.Pt recently admitted to [facility] on 10/29/20 with abdominal pain/colitis, aphasia/ams/L facial numbness/possible acuteischemic stroke. 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 Last Myocardial Infarction Date:: 2015 History of Any Multi-Drug Resistant Organisms: ESBL Date of last positivie culture/infection: 08/27/20 MDRO Source:: ESBL URINE Past Surgical History: Appendectomy, Bladder Surgery, Cardiac Valve Replacement, Cholecystectomy, Coronary Bypass/CABG, Heart Catheterization, Heart Catheterization With Stent, Hysterectomy Additional Past Surgical History / Comment(s): 2013 CABG 4 vessel, 2016 mitral valve replacement, PCIs with multiple stents, bilateral leg stents, bladder susupension, colonoscopy. Past Anesthesia/Blood Transfusion Reactions: No Reported Reaction Date of Last Stent Placement:: 06/25/20 Past Psychological History: Anxiety, Bipolar, Depression Additional Psychological History / Comment(s): Pt resides with her maicolJoceline. She uses a walker. She has a glucometer. She is fairly independent. Smoking Status: Former smoker Past Alcohol Use History: None Reported Additional Past Alcohol Use History / Comment(s): Pt started smoking in 1981 and is less than a ppd smoker. Past Drug Use History: None Reported - Past Family History Father Family Medical History: Coronary Artery Disease (CAD) Additional Family Medical History / Comment(s): heart disease Mother Family Medical History: Cancer Additional Family Medical History / Comment(s): Lung cancer Medications and Allergies Home Medications Medication Instructions Recorded Confirmed Type ARIPiprazole [Abilify] 5 mg PO DAILY 05/21/20 12/25/20 History Cyclobenzaprine [Flexeril] 10 mg PO TID PRN 05/21/20 12/25/20 History Mirtazapine [Remeron] 45 mg PO HS 05/21/20 12/25/20 History QUEtiapine [SEROquel] 50 mg PO HS 05/21/20 12/25/20 History Ranolazine [Ranexa] 1,000 mg PO BID 05/21/20 12/25/20 History Sertraline [Zoloft] 50 mg PO DAILY 05/21/20 12/25/20 History hydrOXYzine pamoate [Vistaril] 25 mg PO TID 05/21/20 12/25/20 History Ticagrelor [Brilinta] 90 mg PO BID tab 06/27/20 12/25/20 Rx Aspirin 81 mg PO DAILY chew 08/20/20 12/25/20 Rx lisinopriL [Zestril] 2.5 mg PO DAILY tab 08/20/20 12/25/20 Rx Ezetimibe [Zetia] 10 mg PO DAILY 30 Days #30 tab 09/15/20 12/25/20 Rx Metoprolol Tartrate [Lopressor] 50 mg PO BID 60 Days #30 tab 09/15/20 12/25/20 Rx Furosemide [Lasix] 40 mg PO DAILY 09/21/20 12/25/20 History Potassium Chloride ER [K-Dur 20] 20 meq PO DAILY 09/21/20 12/25/20 History Spironolactone [Aldactone] 25 mg PO DAILY 09/21/20 12/25/20 History Ferrous Sulfate [Iron (65 MG 325 mg PO DAILY 10/18/20 12/25/20 History Elemental)] Folic Acid 1 mg PO DAILY 10/18/20 12/25/20 History Insulin Glargine,Hum.rec.anlog 28 unit SQ BID 10/18/20 12/25/20 History [Lantus Solostar] Levothyroxine Sodium [Synthroid] 200 mcg PO DAILY 10/18/20 12/25/20 History levETIRAcetam [Keppra] 500 mg PO Q12H 10/18/20 12/25/20 History HYDROcodone/APAP 10-325MG [[place] 1 tab PO Q6H PRN 11/16/20 12/25/20 History 10-325] INSULIN ASPART (NovoLOG) [NovoLOG See Protocol SQ ACHS 11/16/20 12/25/20 History (formulary)] Pantoprazole [Protonix] 40 mg PO AC-BID tablet.dr 11/18/20 12/25/20 Rx Loperamide HCl [Imodium A-D] 2 - 4 mg PO QID PRN 12/09/20 12/25/20 History Atorvastatin [Lipitor] 80 mg PO DAILY tab 12/11/20 12/25/20 Rx INSULIN ASPART (NovoLOG) [NovoLOG 7 unit SQ ACHS vial 12/18/20 12/25/20 Rx (formulary)] Nitroglycerin Sl Tabs [Nitrostat] 0.4 mg SUBLINGUAL Q5M PRN tab 12/18/20 12/25/20 Rx Isosorbide Mononitrate ER [Imdur] 60 mg PO BID #0 tab.er.24h 12/20/20 12/25/20 Rx amLODIPine [Norvasc] 5 mg PO DAILY #90 tab 12/20/20 12/25/20 Rx Allergies Allergy/AdvReac Type Severity Reaction Status Date / Time gabapentin Allergy Severe Anaphylaxis Verified 12/25/20 13:35 shellfish derived [Crab] Allergy Intermediate Rash/Hives Verified 12/25/20 13:35 Physical Exam Vitals: Vital Signs Temp Pulse Pulse Pulse Resp BP BP 12/26/20 07:00 97.5 F L 55 L 14 94/60 12/26/20 01:48 97.5 F L 59 L 16 90/50 12/26/20 01:41 16 12/25/20 20:00 16 12/25/20 19:28 98.0 F 68 16 122/65 12/25/20 16:52 98.6 F 59 L 16 123/75 12/25/20 16:07 98.1 F 78 18 138/68 12/25/20 15:00 98.9 F 80 18 136/72 12/25/20 14:00 81 16 136/78 12/25/20 12:20 82 20 12/25/20 11:45 99.2 F 85 18 145/75 Pulse Ox 12/26/20 07:00 96 12/26/20 01:48 98 12/26/20 01:41 12/25/20 20:00 12/25/20 19:28 96 12/25/20 16:52 100 12/25/20 16:07 98 12/25/20 15:00 96 12/25/20 14:00 98 12/25/20 12:20 12/25/20 11:45 100 Intake and Output 12/25/20 12/26/20 12/26/20 22:59 06:59 14:59 Other: Voiding Method Toilet Toilet Toilet # Voids 1 0 Weight 83.007 kg - Constitutional General appearance: no acute distress - Respiratory Respiratory: bilateral: CTA - Cardiovascular Rhythm: regular Heart sounds: normal: S1, S2 Results 12/26/20 07:14 12/25/20 12:36 Cardiac Enzymes 12/25/20 12/25/20 12/25/20 Range/Units 12:36 12:36 15:28 AST 25 (14-36) U/L Troponin I <0.012 <0.012 (0.000-0.034) ng/mL 12/25/20 Range/Units 18:36 AST (14-36) U/L Troponin I <0.012 (0.000-0.034) ng/mL Coagulation 12/25/20 Range/Units Unknown PT 10.1 (9.0-12.0) sec APTT 21.7 L (22.0-30.0) sec CBC 12/25/20 12/26/20 Range/Units 13:50 07:14 WBC 5.4 5.0 (3.8-10.6) k/uL RBC 3.66 L 3.83 (3.80-5.40) m/uL Hgb 11.8 11.8 (11.4-16.0) gm/dL Hct 35.1 36.5 (34.0-46.0) % Plt Count 283 278 (150-450) k/uL Comprehensive Metabolic Panel 12/25/20 Range/Units 12:36 Sodium 136 L (137-145) mmol/L Potassium 3.2 L (3.5-5.1) mmol/L Chloride 105 (98-107) mmol/L Carbon Dioxide 19 L (22-30) mmol/L BUN 5 L (7-17) mg/dL Creatinine 0.65 (0.52-1.04) mg/dL Glucose 453 H (74-99) mg/dL Calcium 9.1 (8.4-10.2) mg/dL AST 25 (14-36) U/L ALT 13 (4-34) U/L Alkaline Phosphatase 85 (38-126) U/L Total Protein 6.3 (6.3-8.2) g/dL Albumin 3.9 (3.5-5.0) g/dL Current Medications Generic Name Dose Route Start Last Admin Trade Name Freq PRN Reason Stop Dose Admin Hydrocodone Bitart/Acetaminophen 1 each 12/25/20 16:59 12/25/20 17:47 Hydrocodone/Apap 10-325mg 1 Each Tab PO 1 each Q6H PRN Administration Pain Amlodipine Besylate 5 mg 12/26/20 09:00 Amlodipine 5 Mg Tab PO DAILY [facility] Aripiprazole 5 mg 12/26/20 09:00 Aripiprazole 5 Mg Tab PO DAILY [facility] Aspirin 81 mg 12/26/20 09:00 Aspirin 81 Mg PO DAILY [facility] Atorvastatin Calcium 80 mg 12/26/20 09:00 Atorvastatin 80 Mg Tab PO DAILY [facility] Cyclobenzaprine HCl 10 mg 12/25/20 16:59 12/25/20 19:46 Cyclobenzaprine 10 Mg Tab PO 10 mg TID PRN Administration Muscle Spasm Ezetimibe 10 mg 12/26/20 09:00 Ezetimibe 10 Mg Tab PO DAILY [facility] Ferrous Sulfate 325 mg 12/26/20 09:00 Ferrous Sulfate 325 Mg Tab PO DAILY [facility] Folic Acid 1 mg 12/26/20 09:00 Folic Acid 1 Mg Tab PO DAILY [facility] Furosemide 40 mg 12/26/20 09:00 Furosemide 40 Mg Tab PO DAILY [facility] Hydroxyzine Pamoate 25 mg 12/25/20 22:00 12/25/20 19:45 Hydroxyzine Pamoate 25 Mg Cap PO 25 mg TID [facility] Administration Insulin Aspart 7 unit 12/25/20 17:30 12/25/20 20:34 Insulin Aspart (Novolog) 100 Unit/Ml Vial SQ Not Given [facility] Insulin Aspart 0 unit 12/25/20 17:30 12/25/20 20:34 Insulin Aspart (Novolog) 100 Unit/Ml Vial SQ 4 unit [facility] Administration Protocol Insulin Detemir 28 unit 12/25/20 21:00 12/25/20 20:34 Insulin Detemir (Levemir) 100 Unit/Ml Syr SQ 28 unit BID@0700,2100 [facility] Administration Isosorbide Mononitrate 60 mg 12/25/20 21:00 12/25/20 19:45 Isosorbide Mononitrate Er 60 Mg Tab.Er.24h PO 60 mg BID [facility] Administration Levetiracetam 500 mg 12/25/20 21:00 12/25/20 19:45 Levetiracetam 500 Mg Tab PO 500 mg Q12HR [facility] Administration Levothyroxine Sodium 200 mcg 12/26/20 06:30 12/26/20 06:01 Levothyroxine 100 Mcg Tab PO 200 mcg DAILY@0630 [facility] Administration Lisinopril 2.5 mg 12/26/20 09:00 Lisinopril 2.5 Mg Tab PO DAILY [facility] Loperamide HCl 2 mg 12/25/20 16:59 Loperamide 2 Mg Cap PO QID PRN Diarrhea Metoprolol Tartrate 50 mg 12/25/20 21:00 12/25/20 19:45 Metoprolol Tartrate 50 Mg Tab PO 50 mg BID [facility] Administration Mirtazapine 45 mg 12/25/20 21:00 12/25/20 19:46 Mirtazapine 45 Mg Tablet PO 45 mg HS [facility] Administration Miscellaneous Information 1 each 12/26/20 06:57 Potassium Replacement Protocol 1 Each Misc MISCELLANE DAILY PRN Per Protocol Protocol Nitroglycerin 0.4 mg 12/25/20 14:41 Nitroglycerin Sl Tabs 0.4 Mg Tab SUBLINGUAL Q5M PRN Chest Pain Nitroglycerin 1 inch 12/25/20 18:00 12/26/20 04:27 Nitroglycerin Oint 1 Inch/Gm Packet TOPICAL Not Given Q6HR [facility] Nystatin 1 applic 12/25/20 22:00 12/25/20 19:46 Nystatin 100,000 Unit/Gm Powd 15 Gm TOPICAL 1 applic TID [facility] Administration Ondansetron HCl 4 mg 12/25/20 17:05 12/25/20 17:38 Ondansetron 4 Mg/2 Ml Vial IVP 4 mg Q6HR PRN Administration Nausea And Vomiting Pantoprazole Sodium 40 mg 12/25/20 17:30 12/25/20 17:38 Pantoprazole 40 Mg Tablet PO 40 mg AC-BID [facility] Administration Potassium Chloride 20 meq 12/26/20 09:00 Potassium Chloride Er 20 Meq Tab.Er PO DAILY [facility] Quetiapine Fumarate 50 mg 12/25/20 21:00 12/25/20 19:46 Quetiapine 50 Mg Tab PO 50 mg HS CAROL[facility] Administration Ranolazine 1,000 mg 12/25/20 21:00 12/25/20 19:45 Ranolazine 500 Mg Tab.Er.12h PO 1,000 mg BID [facility] Administration Sertraline HCl 50 mg 12/26/20 09:00 Sertraline 50 Mg Tab PO DAILY [facility] Spironolactone 25 mg 12/26/20 09:00 Spironolactone 25 Mg Tab PO DAILY [facility] Ticagrelor 90 mg 12/25/20 21:00 12/25/20 19:46 Ticagrelor 90 Mg Tab PO 90 mg BID [facility] Administration Intake and Output 12/25/20 12/26/20 12/26/20 22:59 06:59 14:59 Other: Voiding Method Toilet Toilet Toilet # Voids 1 0 Weight 83.007 kg 12/26/20 07:14 12/25/20 12:36 Assessment and Plan Assessment: Assessment #1 chest discomfort which is chronic #2 severe CAD with prior revascularization as described above #3 hypertension #4 dyslipidemia #5 left lower quadrant discomfort Plan #1 acute coronary event was ruled out #2 the patient is on maximize medical treatment for CAD #3 workup regarding the abdominal discomfort #4 no need for any further cardiac workup at this point #5 the patient can be discharged home from the cardiovascular standpoint of view
[2020-12-26] MEDS ORDERED: SPIRONOLACTONE 25 MG TAB PO SCH (09:00)
[2020-12-26] MEDS ORDERED: ATORVASTATIN 80 MG TAB PO SCH (09:00)
[2020-12-26] MEDS ORDERED: FUROSEMIDE 40 MG TAB PO SCH (09:00)
[2020-12-26] MEDS ORDERED: POTASSIUM CHLORIDE ER 20 MEQ TAB.ER PO SCH (09:00)
[2020-12-26] MEDS ORDERED: amLODIPine 5 MG TAB PO SCH (09:00)
[2020-12-26] MEDS ORDERED: ARIPiprazole 5 MG TAB PO SCH (09:00)
[2020-12-26] MEDS ORDERED: ASPIRIN 325 MG TAB PO SCH (09:00)
[2020-12-26] MEDS ORDERED: EZETIMIBE 10 MG TAB PO SCH (09:00)
[2020-12-26] MEDS ORDERED: FERROUS SULFATE 325 MG TAB PO SCH (09:00)
[2020-12-26] MEDS ORDERED: SERTRALINE 50 MG TAB PO SCH (09:00)
[2020-12-26] MEDS ORDERED: ASPIRIN 81 MG PO SCH (09:00)
[2020-12-26] MEDS ORDERED: FOLIC ACID 1 MG TAB PO SCH (09:00)
[2020-12-26] MEDS: INSULIN ASPART (NovoLOG) 100 UNIT/ML VIAL SQ SCH ×2 (09:11)
[2020-12-26] MEDS: INSULIN DETEMIR (LEVEMIR) 100 UNIT/ML SYR SQ SCH (09:16)
[2020-12-26] MEDS: PANTOPRAZOLE 40 MG TABLET PO SCH (09:18)
[2020-12-26] MEDS: hydrOXYzine pamoate 25 MG CAP PO SCH (09:20)
[2020-12-26] MEDS: levETIRAcetam 500 MG TAB PO SCH (09:21)
[2020-12-26] MEDS: METOPROLOL TARTRATE 50 MG TAB PO SCH (09:21)
[2020-12-26] MEDS: ISOSORBIDE MONONITRATE ER 60 MG TAB.ER.24H PO SCH (09:21)
[2020-12-26] MEDS: POTASSIUM CHLORIDE ER 20 MEQ TAB.ER PO SCH ×2 (09:22→10:28)
[2020-12-26] MEDS: TICAGRELOR 90 MG TAB PO SCH (09:22)
[2020-12-26] MEDS: RANOLAZINE 500 MG TAB.ER.12H PO SCH (09:22)
[2020-12-26] MEDS: NYSTATIN 100,000 UNIT/GM POWD 15 GM TOPICAL SCH (09:22)
--- NOTE | 2020-12-26 09:42 | P.HPIM ---
History of Present Illness H&P Date: 12/26/20 Chief Complaint: Chest pain This is a 55-year-old female patient well-known to my services who presented to the ER with complaints of chest pain. Patient has an extensive cardiac history including multiple stents and possible medical compliance. Patient reported that the pain started 9:30 in the morning with radiation to left arm and back. Additional medical history includes chest pain, COPD, CVA, diabetes mellitus, GERD, GI bleed, hyperlipidemia, hypertension, thyroid disorder, anxiety bipolar depression. X-ray was completed showing coronary stents chronic changes no acute process seen. Troponins negative 3. Cardiology and psychiatry services have been consulted. Patient denies nausea vomiting or diarrhea. Patient denies any urinary burning. Review of Systems please refer to HPI otherwise unremarkable Past Medical History Past Medical History: Coronary Artery Disease (CAD), Chest Pain / Angina, COPD, CVA/TIA, Diabetes Mellitus, GERD/Reflux, GI Bleed, Hyperlipidemia, Hypertension, Myocardial Infarction ([place]), Musculoskeletal Disorder, Pneumonia, Thyroid Disorder Additional Past Medical History / Comment(s): Pt was recently admitted to [facility] for cardiac related issues.Pt recently admitted to [facility] on 10/29/20 with abdominal pain/colitis, aphasia/ams/L facial numbness/possible acuteischemic stroke. 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 Last Myocardial Infarction Date:: 2015 History of Any Multi-Drug Resistant Organisms: ESBL Date of last positivie culture/infection: 08/27/20 MDRO Source:: ESBL URINE Past Surgical History: Appendectomy, Bladder Surgery, Cardiac Valve Replacement, Cholecystectomy, Coronary Bypass/CABG, Heart Catheterization, Heart Catheterization With Stent, Hysterectomy Additional Past Surgical History / Comment(s): 2013 CABG 4 vessel, 2016 mitral valve replacement, PCIs with multiple stents, bilateral leg stents, bladder susupension, colonoscopy. Past Anesthesia/Blood Transfusion Reactions: No Reported Reaction Date of Last Stent Placement:: 06/25/20 Past Psychological History: Anxiety, Bipolar, Depression Additional Psychological History / Comment(s): Pt resides with her maicolJoceline. She uses a walker. She has a glucometer. She is fairly independent. Smoking Status: Former smoker Past Alcohol Use History: None Reported Additional Past Alcohol Use History / Comment(s): Pt started smoking in 1981 and is less than a ppd smoker. Past Drug Use History: None Reported - Past Family History Father Family Medical History: Coronary Artery Disease (CAD) Additional Family Medical History / Comment(s): heart disease Mother Family Medical History: Cancer Additional Family Medical History / Comment(s): Lung cancer Medications and Allergies Home Medications Medication Instructions Recorded Confirmed Type ARIPiprazole [Abilify] 5 mg PO DAILY 05/21/20 12/25/20 History Cyclobenzaprine [Flexeril] 10 mg PO TID PRN 05/21/20 12/25/20 History Mirtazapine [Remeron] 45 mg PO HS 05/21/20 12/25/20 History QUEtiapine [SEROquel] 50 mg PO HS 05/21/20 12/25/20 History Ranolazine [Ranexa] 1,000 mg PO BID 05/21/20 12/25/20 History Sertraline [Zoloft] 50 mg PO DAILY 05/21/20 12/25/20 History hydrOXYzine pamoate [Vistaril] 25 mg PO TID 05/21/20 12/25/20 History Ticagrelor [Brilinta] 90 mg PO BID tab 06/27/20 12/25/20 Rx Aspirin 81 mg PO DAILY chew 08/20/20 12/25/20 Rx lisinopriL [Zestril] 2.5 mg PO DAILY tab 08/20/20 12/25/20 Rx Ezetimibe [Zetia] 10 mg PO DAILY 30 Days #30 tab 09/15/20 12/25/20 Rx Metoprolol Tartrate [Lopressor] 50 mg PO BID 60 Days #30 tab 09/15/20 12/25/20 Rx Furosemide [Lasix] 40 mg PO DAILY 09/21/20 12/25/20 History Potassium Chloride ER [K-Dur 20] 20 meq PO DAILY 09/21/20 12/25/20 History Spironolactone [Aldactone] 25 mg PO DAILY 09/21/20 12/25/20 History Ferrous Sulfate [Iron (65 MG 325 mg PO DAILY 10/18/20 12/25/20 History Elemental)] Folic Acid 1 mg PO DAILY 10/18/20 12/25/20 History Insulin Glargine,Hum.rec.anlog 28 unit SQ BID 10/18/20 12/25/20 History [Lantus Solostar] Levothyroxine Sodium [Synthroid] 200 mcg PO DAILY 10/18/20 12/25/20 History levETIRAcetam [Keppra] 500 mg PO Q12H 10/18/20 12/25/20 History HYDROcodone/APAP 10-325MG [[place] 1 tab PO Q6H PRN 11/16/20 12/25/20 History 10-325] INSULIN ASPART (NovoLOG) [NovoLOG See Protocol SQ ACHS 11/16/20 12/25/20 History (formulary)] Pantoprazole [Protonix] 40 mg PO AC-BID tablet. 11/18/20 12/25/20 Rx Loperamide HCl [Imodium A-D] 2 - 4 mg PO QID PRN 12/09/20 12/25/20 History Atorvastatin [Lipitor] 80 mg PO DAILY tab 12/11/20 12/25/20 Rx INSULIN ASPART (NovoLOG) [NovoLOG 7 unit SQ ACHS vial 12/18/20 12/25/20 Rx (formulary)] Nitroglycerin Sl Tabs [Nitrostat] 0.4 mg SUBLINGUAL Q5M PRN tab 12/18/20 12/25/20 Rx Isosorbide Mononitrate ER [Imdur] 60 mg PO BID #0 tab.er.24h 12/20/20 12/25/20 Rx amLODIPine [Norvasc] 5 mg PO DAILY #90 tab 12/20/20 12/25/20 Rx Allergies Allergy/AdvReac Type Severity Reaction Status Date / Time gabapentin Allergy Severe Anaphylaxis Verified 12/25/20 13:35 shellfish derived [Crab] Allergy Intermediate Rash/Hives Verified 12/25/20 13:35 Physical Exam Vitals: Vital Signs Temp Pulse Pulse Pulse Resp BP BP 12/26/20 01:48 97.5 F L 59 L 16 90/50 12/26/20 01:41 16 12/25/20 20:00 16 12/25/20 19:28 98.0 F 68 16 122/65 12/25/20 16:52 98.6 F 59 L 16 123/75 12/25/20 16:07 98.1 F 78 18 138/68 12/25/20 15:00 98.9 F 80 18 136/72 12/25/20 14:00 81 16 136/78 12/25/20 12:20 82 20 12/25/20 11:45 99.2 F 85 18 145/75 Pulse Ox 12/26/20 01:48 98 12/26/20 01:41 12/25/20 20:00 12/25/20 19:28 96 12/25/20 16:52 100 12/25/20 16:07 98 12/25/20 15:00 96 12/25/20 14:00 98 12/25/20 12:20 12/25/20 11:45 100 Intake and Output 12/25/20 12/25/20 12/26/20 14:59 22:59 06:59 Other: Voiding Method Toilet Toilet # Voids 1 0 Weight 83.007 kg 83.007 kg Head normocephalic Neck supple Lungs clear to auscultation bilaterally no wheezing or crackles Heart regular rate and rhythm S1-S2, no rub or gallop Abdomen is soft nontender nondistended positive bowel sounds no hepatosplenomegaly Extremities no edema Neuro alert and orientated to 3 Results CBC & Chem 7: 12/26/20 07:14 12/26/20 07:14 Labs: Abnormal Lab Results - Last 24 Hours (Table) 12/25/20 12/25/20 12/25/20 Range/Units 12:36 13:50 15:23 RBC 3.66 L (3.80-5.40) m/uL APTT (22.0-30.0) sec Sodium 136 L (137-145) mmol/L Potassium 3.2 L (3.5-5.1) mmol/L Carbon Dioxide 19 L (22-30) mmol/L BUN 5 L (7-17) mg/dL Glucose 453 H (74-99) mg/dL POC Glucose (mg/dL) 397 H (75-99) mg/dL 12/25/20 12/25/20 12/25/20 Range/Units 17:20 20:12 Unknown RBC (3.80-5.40) m/uL APTT 21.7 L (22.0-30.0) sec Sodium (137-145) mmol/L Potassium (3.5-5.1) mmol/L Carbon Dioxide (22-30) mmol/L BUN (7-17) mg/dL Glucose (74-99) mg/dL POC Glucose (mg/dL) 130 H 272 H (75-99) mg/dL Thrombosis Risk Factor Assmnt - Choose All That Apply Any of the Below Risk Factors Present?: Yes Each Factor Represents 1 point: Age 41-60 years, Obesity (BMI >25) Other Risk Factors: No Thrombosis Risk Factor Assessment Total Risk Factor Score: 2 Thrombosis Risk Factor Assessment Level: Low Risk Assessment and Plan Assessment: 1. Chest pain. Troponins negative 3. Chest x-ray negative. Per cardiology chest discomfort is chronic acute coronary event has been ruled out patient is on maximal medical treatment for CAD no further workup inpatient 2. Anxiety. Psychiatry services have been consulted. Per psychiatry patient will be referred to outpatient psychiatric treatment and counseling patient dec lined any changes to current psychiatric medication 3. Medical noncompliance. Patient not picking up medication from pharmacy or following up with PCP and technical assistance consultant 4. Ongoing nicotine dependence. Patient again educated on the importance of complete smoking cessation. 5. Diabetes mellitus type 2 6. Coronary artery disease with history of coronary artery bypass graft surgery and multiple cardiac stent 7. Essential hypertension 8. Hyperlipidemia 9. Hypothyroidism Time with Patient: Greater than 30 (Greater than 60% of the total time spent in counseling and coordination of care)
--- NOTE | 2020-12-26 09:49 | P.DS ---
Providers Date of admission: 12/25/20 14:43 Expected date of discharge: 12/26/20 Attending physician: Jerson Aguilar Consults: 12/25/20 14:41 Consult Physician Urgent Consulting Provider: [facility] Consult Reason/Comments: Chest pain Do you want consulting provider notified?: Yes Consult Physician Urgent Consulting Provider: Nargis Sahu Consult Reason/Comments: Anxiety Do you want consulting provider notified?: Yes Primary care physician: Jerson [facility] Course: Discharge diagnosis 1. Chest pain. Troponins negative 3. Chest x-ray negative. Per cardiology chest discomfort is chronic acute coronary event has been ruled out patient is on maximal medical treatment for CAD no further workup inpatient 2. Anxiety. Psychiatry services have been consulted. Per psychiatry patient will be referred to outpatient psychiatric treatment and counseling patient declined any changes to current psychiatric medication 3. Medical noncompliance. Patient not picking up medication from pharmacy or following up with PCP and dental tech 4. Ongoing nicotine dependence. Patient again educated on the importance of complete smoking cessation. 5. Diabetes mellitus type 2 6. Coronary artery disease with history of coronary artery bypass graft surgery and multiple cardiac stent 7. Essential hypertension 8. Hyperlipidemia 9. Hypothyroidism Hospital Course This is a 55-year-old female patient well-known to my services who presented to the ER with complaints of chest pain. Patient has an extensive cardiac history including multiple stents and possible medical compliance. Patient reported that the pain started 9:30 in the morning with radiation to left arm and back. Additional medical history includes chest pain, COPD, CVA, diabetes mellitus, GERD, GI bleed, hyperlipidemia, hypertension, thyroid disorder, anxiety bipolar depression. X-ray was completed showing coronary stents chronic changes no acute process seen. Troponins negative 3. Cardiology and psychiatry services have been consulted. Patient denies nausea vomiting or diarrhea. Patient denies any urinary burning. On 12/26/2020 patient has been cleared by cardiology and psychiatry services. At this time patient denies any chest pain or shortness breath. Patient denies any nausea vomiting or diarrhea. Patient denies any urinary burning or frequency. Patient again educated on importance of medication compliance along with close follow-up. Patient also educated again on smoking sensation in the importance due to her extensive cardiac history. Patient verbalized understanding. Patient to follow-up with PCP and cardiology services for further management chronic conditions Patient Condition at Discharge: Stable Plan - Discharge Summary Discharge Rx Participant: Yes New Discharge Prescriptions: New Nystatin 100,000 Unit/gm Powd [Mycostatin Powder] 1 applic TOPICAL TID #1 bottle Continue Sertraline [Zoloft] 50 mg PO DAILY Ranolazine [Ranexa] 1,000 mg PO BID QUEtiapine [SEROquel] 50 mg PO HS Mirtazapine [Remeron] 45 mg PO HS hydrOXYzine pamoate [Vistaril] 25 mg PO TID Cyclobenzaprine [Flexeril] 10 mg PO TID PRN PRN Reason: Muscle Spasm ARIPiprazole [Abilify] 5 mg PO DAILY Ticagrelor [Brilinta] 90 mg PO BID tab Aspirin 81 mg PO DAILY chew lisinopriL [Zestril] 2.5 mg PO DAILY tab Metoprolol Tartrate [Lopressor] 50 mg PO BID 60 Days #30 tab Ezetimibe [Zetia] 10 mg PO DAILY 30 Days #30 tab Spironolactone [Aldactone] 25 mg PO DAILY Potassium Chloride ER [K-Dur 20] 20 meq PO DAILY Furosemide [Lasix] 40 mg PO DAILY levETIRAcetam [Keppra] 500 mg PO Q12H Folic Acid 1 mg PO DAILY Loperamide HCl [Imodium A-D] 2 - 4 mg PO QID PRN PRN Reason: Diarrhea amLODIPine [Norvasc] 5 mg PO DAILY #90 tab Ferrous Sulfate [Iron (65 MG Elemental)] 325 mg PO DAILY Levothyroxine Sodium [Synthroid] 200 mcg PO DAILY Insulin Glargine,Hum.rec.anlog [Lantus Solostar] 28 unit SQ BID INSULIN ASPART (NovoLOG) [NovoLOG (formulary)] See Protocol SQ ACHS HYDROcodone/APAP 10-325MG [[place] 10-325] 1 tab PO Q6H PRN PRN Reason: Pain Pantoprazole [Protonix] 40 mg PO AC-BID tablet. Atorvastatin [Lipitor] 80 mg PO DAILY tab Nitroglycerin Sl Tabs [Nitrostat] 0.4 mg SUBLINGUAL Q5M PRN tab PRN Reason: Chest Pain INSULIN ASPART (NovoLOG) [NovoLOG (formulary)] 7 unit SQ ACHS vial Isosorbide Mononitrate ER [Imdur] 60 mg PO BID #0 tab.er.24h Discharge Medication List ARIPiprazole [Abilify] 5 mg PO DAILY 05/21/20 [History] Cyclobenzaprine [Flexeril] 10 mg PO TID PRN 05/21/20 [History] Mirtazapine [Remeron] 45 mg PO HS 05/21/20 [History] QUEtiapine [SEROquel] 50 mg PO HS 05/21/20 [History] Ranolazine [Ranexa] 1,000 mg PO BID 05/21/20 [History] Sertraline [Zoloft] 50 mg PO DAILY 05/21/20 [History] hydrOXYzine pamoate [Vistaril] 25 mg PO TID 05/21/20 [History] Ticagrelor [Brilinta] 90 mg PO BID tab 06/27/20 [Rx] Aspirin 81 mg PO DAILY chew 08/20/20 [Rx] lisinopriL [Zestril] 2.5 mg PO DAILY tab 08/20/20 [Rx] Ezetimibe [Zetia] 10 mg PO DAILY 30 Days #30 tab 09/15/20 [Rx] Metoprolol Tartrate [Lopressor] 50 mg PO BID 60 Days #30 tab 09/15/20 [Rx] Furosemide [Lasix] 40 mg PO DAILY 09/21/20 [History] Potassium Chloride ER [K-Dur 20] 20 meq PO DAILY 09/21/20 [History] Spironolactone [Aldactone] 25 mg PO DAILY 09/21/20 [History] Ferrous Sulfate [Iron (65 MG Elemental)] 325 mg PO DAILY 10/18/20 [History] Folic Acid 1 mg PO DAILY 10/18/20 [History] Insulin Glargine,Hum.rec.anlog [Lantus Solostar] 28 unit SQ BID 10/18/20 [History] Levothyroxine Sodium [Synthroid] 200 mcg PO DAILY 10/18/20 [History] levETIRAcetam [Keppra] 500 mg PO Q12H 10/18/20 [History] HYDROcodone/APAP 10-325MG [[place] 10-325] 1 tab PO Q6H PRN 11/16/20 [History] INSULIN ASPART (NovoLOG) [NovoLOG (formulary)] See Protocol SQ ACHS 11/16/20 [History] Pantoprazole [Protonix] 40 mg PO AC-BID tablet. 11/18/20 [Rx] Loperamide HCl [Imodium A-D] 2 - 4 mg PO QID PRN 12/09/20 [History] Atorvastatin [Lipitor] 80 mg PO DAILY tab 12/11/20 [Rx] INSULIN ASPART (NovoLOG) [NovoLOG (formulary)] 7 unit SQ ACHS vial 12/18/20 [Rx] Nitroglycerin Sl Tabs [Nitrostat] 0.4 mg SUBLINGUAL Q5M PRN tab 12/18/20 [Rx] Isosorbide Mononitrate ER [Imdur] 60 mg PO BID #0 tab.er.24h 12/20/20 [Rx] amLODIPine [Norvasc] 5 mg PO DAILY #90 tab 12/20/20 [Rx] Nystatin 100,000 Unit/gm Powd [Mycostatin Powder] 1 applic TOPICAL TID #1 bottle 12/26/20 [Rx] Follow up Appointment(s)/Referral(s): None,Stated [REFERRING] - 1-2 days Jerson Aguilar MD [Primary Care Provider] - 1 Week Elier Murillo MD [STAFF PHYSICIAN] - 1 Week Activity/Diet/Wound Care/Special Instructions: Activity as tolerated Diet heart healthy consistent carb Discharge Disposition: HOME SELF-CARE
--- NOTE | 2020-12-26 10:19 | P.PN ---
Progress Note - Text Progress Note Date: 12/26/20 Aminta Sheikh, is a 55-year-old female who presented to [facility] emergency room with a chief complaint of chest pain, she was admitted to telemetry floor cardiology consultation was requested, 3 sets of cardiac enzymes were negative patient was cleared by cardiology for discharge. Patient had more than 25 admissions this year for chest pain, she has an extensive history of coronary artery disease, including history of coronary artery bypass graft surgery, and history of multiple stent placement. Patient is a maintained on a comprehensive cardiac medication regimen including Imdur, Ranexa, statin, settee sublingual nitroglycerin and beta janay, PHAM inhibitor, aspirin and Brilinta. However it's not clear how much of these medications patient is actually taking at home, she has not been keeping her appointments as outpatient and has been presenting to emergency room 2-3 times per week for chest pain. Patient also continues to smoke despite her extensive coronary artery disease. Today patient was counseled in length in regards to natural progression of co ronary artery disease, and about the importance of taking medications as prescribed, and importance of quitting smoking. Patient was told to come into our office tomorrow at 11 AM and to bring all her medication bottles with her for outpatient follow-up to assess what medication she has been actually taking. I have discussed this case in details with the emergency room physician, he is suggested to consult psychiatry to assess anxiety disorder and depression and see if any adjustment of her medications might lead to decrease of her emergency room use, however patient was not cooperative with psychiatrist and refused any change in her psychiatry medications. Patient will be followed in our office tomorrow in a.m.
[2020-12-26 12:58] LABS: Chol/HDL Ratio 3.04; LDL Cholesterol,Calculated 91.4 mg/dL (0.0-131.0); VLDL Calculation 49.6 mg/dL (5.00-40.00)
== END 2020-12-26 10:42 | disposition home or self-care (01) ==
LOC: EC 11:43 → 6NMEDSUR 14:43
PROVIDERS: ADMIT Internal Medicine; ATTEND Internal Medicine
DX: R07.89 Other chest pain (principal); I25.10 Atherosclerotic heart disease of native coronary artery without angina pectoris; F41.9 Anxiety disorder, unspecified; Z91.19 Patient's noncompliance with other medical treatment and regimen; E11.41 Type 2 diabetes mellitus with diabetic mononeuropathy; G57.93 Unspecified mononeuropathy of bilateral lower limbs; Z95.1 Presence of aortocoronary bypass graft; Z95.5 Presence of coronary angioplasty implant and graft; I10 Essential (primary) hypertension; E78.5 Hyperlipidemia, unspecified; E03.9 Hypothyroidism, unspecified; J44.9 Chronic obstructive pulmonary disease, unspecified; K21.9 Gastro-esophageal reflux disease without esophagitis; Z87.19 Personal history of other diseases of the digestive system; F31.9 Bipolar disorder, unspecified; I25.2 Old myocardial infarction; Z87.01 Personal history of pneumonia (recurrent); G35 Multiple sclerosis; I69.354 Hemiplegia and hemiparesis following cerebral infarction affecting left non-dominant side; G89.29 Other chronic pain; M54.9 Dorsalgia, unspecified; D64.9 Anemia, unspecified; E66.9 Obesity, unspecified; Z68.31 Body mass index [BMI] 31.0-31.9, adult; R10.32 Left lower quadrant pain; T82.855A Stenosis of coronary artery stent, initial encounter; E78.00 Pure hypercholesterolemia, unspecified; F17.210 Nicotine dependence, cigarettes, uncomplicated; Z20.822 Contact with and (suspected) exposure to COVID-19; Z95.3 Presence of xenogenic heart valve; Z16.24 Resistance to multiple antibiotics; Z90.710 Acquired absence of both cervix and uterus; Z90.49 Acquired absence of other specified parts of digestive tract; Z79.899 Other long term (current) drug therapy; Z79.4 Long term (current) use of insulin; Z79.02 Long term (current) use of antithrombotics/antiplatelets; Z79.82 Long term (current) use of aspirin; Z79.890 Hormone replacement therapy; Z88.8 Allergy status to other drugs, medicaments and biological substances; Z91.013 Allergy to seafood; Z80.1 Family history of malignant neoplasm of trachea, bronchus and lung; Z82.49 Family history of ischemic heart disease and other diseases of the circulatory system
CPT/HCPCS: 96374; 93005 ×2; 99285; 36415; 80061; 80053 ×2; 83735; 84484; 85025; 85027; 85610; 85730; 87635; 71046; G0378 ×2; J2405

== ENCOUNTER 2020-12-26 16:38 | Inpatient (IN) | payer MEDICARE, MEDICAID ==
--- NOTE | 2020-12-26 18:50 | ED ---
General Adult HPI - General Chief complaint: Psychiatric Symptoms Stated complaint: mental health Time Seen by Provider: 12/26/20 17:14 Source: patient Mode of arrival: ambulatory Limitations: no limitations - History of Present Illness Initial comments: 55-year-old female presents to the emergency room for suicidal thoughts. Patient was recently admitted to the hospital and discharged home today. Patient states that she went home her daughter and her got into an argument. She reports her daughter kicked her out. she states that she told her she could not come back for 4 hours. This caused patient to be very upset and she felt she no longer wanted to live. Patient states her plan was to take her walker and walk into traffic. Patient denies any other complaints.Patient has no other complaints at this time including shortness of breath, chest pain, abdominal pain, nausea or vomiting, headache, or visual changes. - Related Data Home Medications Medication Instructions Recorded Confirmed ARIPiprazole [Abilify] 5 mg PO DAILY 05/21/20 12/26/20 Cyclobenzaprine [Flexeril] 10 mg PO TID PRN 05/21/20 12/26/20 Mirtazapine [Remeron] 45 mg PO HS 05/21/20 12/26/20 QUEtiapine [SEROquel] 50 mg PO HS 05/21/20 12/26/20 Ranolazine [Ranexa] 1,000 mg PO BID 05/21/20 12/26/20 Sertraline [Zoloft] 50 mg PO DAILY 05/21/20 12/26/20 hydrOXYzine pamoate [Vistaril] 25 mg PO TID 05/21/20 12/26/20 Furosemide [Lasix] 40 mg PO DAILY 09/21/20 12/26/20 Potassium Chloride ER [K-Dur 20] 20 meq PO DAILY 09/21/20 12/26/20 Spironolactone [Aldactone] 25 mg PO DAILY 09/21/20 12/26/20 Ferrous Sulfate [Iron (65 MG 325 mg PO DAILY 10/18/20 12/26/20 Elemental)] Folic Acid 1 mg PO DAILY 10/18/20 12/26/20 Insulin Glargine,Hum.rec.anlog 28 unit SQ BID 10/18/20 12/26/20 [Lantus Solostar] Levothyroxine Sodium [Synthroid] 200 mcg PO DAILY 10/18/20 12/26/20 levETIRAcetam [Keppra] 500 mg PO Q12H 10/18/20 12/26/20 HYDROcodone/APAP 10-325MG [[place] 1 tab PO Q6H PRN 11/16/20 12/26/20 10-325] INSULIN ASPART (NovoLOG) [NovoLOG See Protocol SQ ACHS 11/16/20 12/26/20 (formulary)] Loperamide HCl [Imodium A-D] 2 - 4 mg PO QID PRN 12/09/20 12/26/20 Previous Rx's Medication Instructions Recorded Ticagrelor [Brilinta] 90 mg PO BID tab 06/27/20 Aspirin 81 mg PO DAILY chew 08/20/20 lisinopriL [Zestril] 2.5 mg PO DAILY tab 08/20/20 Ezetimibe [Zetia] 10 mg PO DAILY 30 Days #30 tab 09/15/20 Metoprolol Tartrate [Lopressor] 50 mg PO BID 60 Days #30 tab 09/15/20 Pantoprazole [Protonix] 40 mg PO AC-BID tablet. 11/18/20 Atorvastatin [Lipitor] 80 mg PO DAILY tab 12/11/20 INSULIN ASPART (NovoLOG) [NovoLOG 7 unit SQ ACHS vial 12/18/20 (formulary)] Nitroglycerin Sl Tabs [Nitrostat] 0.4 mg SUBLINGUAL Q5M PRN tab 12/18/20 Isosorbide Mononitrate ER [Imdur] 60 mg PO BID #0 tab.er.24h 12/20/20 amLODIPine [Norvasc] 5 mg PO DAILY #90 tab 12/20/20 Nystatin 100,000 Unit/gm Powd 1 applic TOPICAL TID #1 bottle 12/26/20 [Mycostatin Powder] Allergies Allergy/AdvReac Type Severity Reaction Status Date / Time gabapentin Allergy Severe Anaphylaxis Verified 12/26/20 22:20 shellfish derived [Crab] Allergy Intermediate Rash/Hives Verified 12/26/20 22:20 Review of Systems ROS Statement: Those systems with pertinent positive or pertinent negative responses have been documented in the HPI. ROS Other: All systems not noted in ROS Statement are negative. Past Medical History Past Medical History: Coronary Artery Disease (CAD), Chest Pain / Angina, COPD, CVA/TIA, Diabetes Mellitus, GERD/Reflux, GI Bleed, Hyperlipidemia, Hypertension, Myocardial Infarction (AK), Musculoskeletal Disorder, Pneumonia, Thyroid Disorder Additional Past Medical History / Comment(s): Pt was recently admitted to [facility] for cardiac related issues.Pt recently admitted to [facility] on 10/29/20 with abdominal pain/colitis, aphasia/ams/L facial numbness/possible acuteischemic stroke. 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 Last Myocardial Infarction Date:: 2015 History of Any Multi-Drug Resistant Organisms: ESBL Date of last positivie culture/infection: 08/27/20 MDRO Source:: ESBL URINE Past Surgical History: Appendectomy, Bladder Surgery, Cardiac Valve Replacement, Cholecystectomy, Coronary Bypass/CABG, Heart Catheterization, Heart Catheterization With Stent, Hysterectomy Additional Past Surgical History / Comment(s): 2013 CABG 4 vessel, 2016 mitral valve replacement, PCIs with multiple stents, bilateral leg stents, bladder susupension, colonoscopy. Past Anesthesia/Blood Transfusion Reactions: No Reported Reaction Date of Last Stent Placement:: 06/25/20 Past Psychological History: Anxiety, Bipolar, Depression Smoking Status: Former smoker Past Alcohol Use History: None Reported Past Drug Use History: None Reported - Past Family History Father Family Medical History: Coronary Artery Disease (CAD) Additional Family Medical History / Comment(s): heart disease Mother Family Medical History: Cancer Additional Family Medical History / Comment(s): Lung cancer General Exam Limitations: no limitations General appearance: alert, in no apparent distress Head exam: Present: atraumatic, normocephalic, normal inspection Eye exam: Present: normal appearance, PERRL, EOMI. Absent: scleral icterus, conjunctival injection, periorbital swelling ENT exam: Present: normal exam, mucous membranes moist Neck exam: Present: normal inspection. Absent: tenderness, meningismus, lymphadenopathy Respiratory exam: Present: normal lung sounds bilaterally. Absent: respiratory distress, wheezes, rales, rhonchi, stridor Cardiovascular Exam: Present: regular rate, normal rhythm, normal heart sounds. Absent: systolic murmur, diastolic murmur, rubs, gallop, clicks Course Vital Signs 12/26/20 12/26/20 16:58 21:00 Temperature 98.4 F 98.6 F Pulse Rate 70 67 Respiratory 18 18 Rate Blood Pressure 100/50 110/68 O2 Sat by Pulse 98 99 Oximetry Medical Decision Making - Medical Decision Making Patient is well-appearing. Patient is currently awaiting psychiatric evaluation. She was signed out to Gabriela JOSHUA at 1900 Patient is being admitted - currently being held in ER at 0638 pending placement - Lab Data Lab Results 12/26/20 Range/Units 23:01 Urine Opiates Screen Detected H (NotDetected) Ur Oxycodone Screen Not Detected (NotDetected) Urine Methadone Screen Not Detected (NotDetected) Ur Propoxyphene Screen Not Detected (NotDetected) Ur Barbiturates Screen Not Detected (NotDetected) U Tricyclic Antidepress Not Detected (NotDetected) Ur Phencyclidine Scrn Not Detected (NotDetected) Ur Amphetamines Screen Not Detected (NotDetected) U Methamphetamines Scrn Not Detected (NotDetected) U Benzodiazepines Scrn Not Detected (NotDetected) Urine Cocaine Screen Not Detected (NotDetected) U Marijuana (THC) Screen Not Detected (NotDetected) Disposition Clinical Impression: Suicidal thoughts Disposition: TRANSFER TO PSYCH HOSP/UNIT Is patient prescribed a controlled substance at d/c from ED?: No Referrals: Jerson Aguilar MD [Primary Care Provider] - 1-2 days Time of Disposition: 06:38
[2020-12-26 23:47] LABS: Cocaine Screen,Urine Not Detected (NotDetected); Opiate Screen,Urine Detected (NotDetected); Phencyclidine Screen,Urine Not Detected (NotDetected)
[2020-12-26 23:48] LABS: Amphetamine Screen,Urine Not Detected (NotDetected); Barbiturate Screen,Urine Not Detected (NotDetected); Benzodiazepines Screen,Urine Not Detected (NotDetected); Methadone Screen, Urine Not Detected (NotDetected); Oxycodone Screen, Urine Not Detected (NotDetected); Tricyclic Antidepressant,Urine Not Detected (NotDetected); Urn Cannabinoid Scrn Not Detected (NotDetected)
[2020-12-27] MEDS ORDERED: HYDROcodone/APAP 10-325MG 1 EACH TAB PO PRN (12:54)
[2020-12-27] MEDS: FERROUS SULFATE 325 MG TAB PO SCH (13:51)
[2020-12-27] MEDS: ISOSORBIDE MONONITRATE ER 60 MG TAB.ER.24H PO SCH ×2 (13:51→22:08)
[2020-12-27] MEDS: ARIPiprazole 5 MG TAB PO SCH (13:51)
[2020-12-27] MEDS: EZETIMIBE 10 MG TAB PO SCH (13:51)
[2020-12-27] MEDS: ASPIRIN 81 MG PO SCH (13:51)
[2020-12-27] MEDS: ATORVASTATIN 80 MG TAB PO SCH (13:51)
[2020-12-27] MEDS: FUROSEMIDE 40 MG TAB PO SCH (13:51)
[2020-12-27] MEDS: hydrOXYzine pamoate 25 MG CAP PO SCH ×3 (13:52→22:08)
[2020-12-27] MEDS: FOLIC ACID 1 MG TAB PO SCH (13:52)
[2020-12-27] MEDS: METOPROLOL TARTRATE 50 MG TAB PO SCH ×2 (13:53→20:58)
[2020-12-27] MEDS: amLODIPine 5 MG TAB PO SCH (13:53)
[2020-12-27] MEDS: levETIRAcetam 500 MG TAB PO SCH ×2 (15:30→20:57)
[2020-12-27] MEDS: INSULIN ASPART (NovoLOG) 100 UNIT/ML VIAL SQ SCH ×3 (17:27→21:04)
[2020-12-27 17:30] LABS: Glucose,Whole Blood 339 mg/dL (75-99)
[2020-12-27] MEDS ORDERED: NITROGLYCERIN SL TABS 0.4 MG TAB SUBLINGUAL PRN (19:51)
[2020-12-27] MEDS ORDERED: ACETAMINOPHEN TAB 325 MG TAB PO PRN (19:52)
[2020-12-27] MEDS ORDERED: MAGNESIUM HYDROXIDE 2,400 MG/10 ML CUP PO PRN (19:52)
[2020-12-27] MEDS ORDERED: MAG HYDROX/AL HYDROX/SIMETH 30 ML CUP PO PRN (19:52)
[2020-12-27] MEDS ORDERED: haloperidoL 5 MG TAB PO PRN (19:53)
[2020-12-27] MEDS ORDERED: LORazepam 2 MG/ML INJ IM PRN (19:53)
[2020-12-27] MEDS ORDERED: HALOPERIDOL LACTATE 5 MG/ML 1 ML VIAL IM PRN (19:53)
[2020-12-27] MEDS: MIRTAZAPINE 45 MG TABLET PO SCH (20:58)
[2020-12-27] MEDS: RANOLAZINE 500 MG TAB.ER.12H PO SCH (20:58)
[2020-12-27] MEDS: QUEtiapine 50 MG TAB PO SCH (20:59)
[2020-12-27] MEDS ORDERED: INSULIN ASPART (NovoLOG) 100 UNIT/ML VIAL SQ SCH (21:00)
[2020-12-27] MEDS: INSULIN DETEMIR (LEVEMIR) 100 UNIT/ML SYR SQ SCH (21:04)
[2020-12-27] MEDS: NYSTATIN 100,000 UNIT/GM POWD 15 GM TOPICAL SCH ×2 (21:08→22:08)
[2020-12-27 21:09] LABS: Glucose,Whole Blood 371 mg/dL (75-99)
[2020-12-27] MEDS: TICAGRELOR 90 MG TAB PO SCH (21:11)
[2020-12-27] MEDS: PANTOPRAZOLE 40 MG TABLET PO SCH (21:25)
[2020-12-28] MEDS: LEVOTHYROXINE 100 MCG TAB PO SCH (06:24)
[2020-12-28 07:47] LABS: Glucose,Whole Blood 121 mg/dL (75-99)
[2020-12-28] MEDS: INSULIN ASPART (NovoLOG) 100 UNIT/ML VIAL SQ SCH ×9 (08:05→21:37)
[2020-12-28] MEDS: NYSTATIN 100,000 UNIT/GM POWD 15 GM TOPICAL SCH ×3 (08:07→21:54)
[2020-12-28] MEDS: INSULIN DETEMIR (LEVEMIR) 100 UNIT/ML SYR SQ SCH ×2 (08:07→21:36)
[2020-12-28] MEDS: ARIPiprazole 5 MG TAB PO SCH (08:07)
[2020-12-28] MEDS: FUROSEMIDE 40 MG TAB PO SCH (08:07)
[2020-12-28] MEDS: EZETIMIBE 10 MG TAB PO SCH (08:07)
[2020-12-28] MEDS: FOLIC ACID 1 MG TAB PO SCH (08:08)
[2020-12-28] MEDS: FERROUS SULFATE 325 MG TAB PO SCH (08:08)
[2020-12-28] MEDS: TICAGRELOR 90 MG TAB PO SCH ×2 (08:08→20:54)
[2020-12-28] MEDS: ISOSORBIDE MONONITRATE ER 60 MG TAB.ER.24H PO SCH ×2 (08:08→22:55)
[2020-12-28] MEDS: levETIRAcetam 500 MG TAB PO SCH ×2 (08:08→20:55)
[2020-12-28] MEDS: amLODIPine 5 MG TAB PO SCH (08:08)
[2020-12-28] MEDS: PANTOPRAZOLE 40 MG TABLET PO SCH ×2 (08:08→17:58)
[2020-12-28] MEDS: RANOLAZINE 500 MG TAB.ER.12H PO SCH ×2 (08:08→20:55)
[2020-12-28] MEDS: SPIRONOLACTONE 25 MG TAB PO SCH (08:08)
[2020-12-28] MEDS: hydrOXYzine pamoate 25 MG CAP PO SCH ×3 (08:08→21:53)
[2020-12-28] MEDS: ASPIRIN 81 MG PO SCH (08:08)
[2020-12-28] MEDS: POTASSIUM CHLORIDE ER 20 MEQ TAB.ER PO SCH (08:09)
[2020-12-28] MEDS: METOPROLOL TARTRATE 50 MG TAB PO SCH ×2 (08:09→20:55)
[2020-12-28] MEDS: HYDROcodone/APAP 5-325MG 1 EACH TAB PO PRN ×3 (08:14→20:58)
[2020-12-28] MEDS ORDERED: SERTRALINE 50 MG TAB PO SCH (09:00)
[2020-12-28] MEDS: ATORVASTATIN 80 MG TAB PO SCH (09:06)
[2020-12-28] MEDS ORDERED: SERTRALINE 25 MG TAB PO STA (11:31)
--- NOTE | 2020-12-28 11:42 | P.HP ---
Psychiatric H&P - . H&P Date: 12/28/20 History & Physical: Allergies Allergy/AdvReac Type Severity Reaction Status Date / Time gabapentin Allergy Severe Anaphylaxis Verified 12/26/20 22:20 shellfish derived Crab Allergy Intermediate Rash/Hives Verified 12/26/20 22:20 Vital Signs Temp 96.8 F L 12/28/20 06:52 Pulse 80 12/28/20 08:50 Resp 18 12/28/20 08:50 BP 111/63 12/28/20 08:50 Pulse Ox 100 12/28/20 08:50 Intake & Output 12/27/20 12/28/20 12/28/20 18:59 06:59 18:59 Weight 83.007 kg Laboratory Last Values POC Glucose (mg/dL) 121 mg/dL (75-99) H 12/28/20 07:46 POC Glu Brazing Machine Tender ID Dann Coulter 12/28/20 07:46 Urine Opiates Screen Detected (NotDetected) H 12/26/20 23:01 Ur Oxycodone Screen Not Detected (NotDetected) 12/26/20 23:01 Urine Methadone Screen Not Detected (NotDetected) 12/26/20 23:01 Ur Propoxyphene Screen Not Detected (NotDetected) 12/26/20 23:01 Ur Barbiturates Screen Not Detected (NotDetected) 12/26/20 23:01 U Tricyclic Antidepress Not Detected (NotDetected) 12/26/20 23:01 Ur Phencyclidine Scrn Not Detected (NotDetected) 12/26/20 23:01 Ur Amphetamines Screen Not Detected (NotDetected) 12/26/20 23:01 U Methamphetamines Scrn Not Detected (NotDetected) 12/26/20 23:01 U Benzodiazepines Scrn Not Detected (NotDetected) 12/26/20 23:01 Urine Cocaine Screen Not Detected (NotDetected) 12/26/20 23:01 U Marijuana (THC) Screen Not Detected (NotDetected) 12/26/20 23:01 Coronavirus (PCR) Not Detected (Not Detectd) 12/27/20 06:45 12/28/20 11:34 IDENTIFYING DATA: Patient is a 55-year-old female currently on disability and SSI who lives with her daughter and is . HPI: Patient presented to the hospital yesterday for complaints of suicidal thoughts. According to ER report patient was recently admitted to the hospital and was discharged to her daughter's house. ER report also stated the patient got into an argument with her daughter at home and daughter apparently kicked her out and patient was fairly upset with this and became suicidal and wanted to walk into traffic. Her UDS is positive for opiates. Patient was seen today and agreeable to speak to read in the office. She appeared to have poor hygiene and grooming. She claims that she was feeling depressed and claiming that "I didn't want to live anymore". She states that her daughter was arguing with her and calling her names. She states that she believes that her daughters after her father's inheritance who recently and is supposedly worth "millions". She states that she walked out of the house and went to a friend's house and claims that she didn't know what to do. She states that she is "tired of people using me". She states that she called 911 because she was feeling suicidal. She claims that she wants to go up [place] to live with her ex-. She states that she has been taking her medications regularly. She currently claims that she does have depression and anxiety. She denies any problems with her appetite or sleep at this time. Patient denies any homicidal ideations intent or plan. She did claim that she has thoughts of suicide however no intent or plan. At this time patient denies any auditory or visual hallucinations. Patient denies any flight of ideas racing thoughts and increased in goal directed behavior. Patient admits to using cigarettes in the past or has now quit. She denies using any other recreational drug use. PAST PSYCHIATRIC HISTORY: Patient states that she has a history of depression and anxiety.. She is currently on Abilify, Vistaril, Remeron, Seroquel, Zoloft. She claims that she was once admitted to a psychiatric hospital in [place] several years ago she claims that she does not have a psychiatrist however follows up with her PCP. She states that she attempted to overdose on insulin over 6 years ago. PMH:Coronary Artery Disease (CAD), Chest Pain / Angina, COPD, CVA/TIA, Diabetes Mellitus, GERD/Reflux, GI Bleed, Hyperlipidemia, Hypertension, Myocardial Infarction (AK), Musculoskeletal Disorder, Pneumonia, Thyroid Disorder ALLERGIES: as per EMR CHEMICAL DEPENDENCY HISTORY: as per HPI FAMILY PSYCHIATRIC/SUBSTANCE USE HISTORY: denies SOCIAL HISTORY: Patient was born and raised in [facility]. She states that she completed high school. 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 She states that she stopped work about 4 years ago and has been on disability. She states that she currently lives with her daughter and is . She states that she has no legal history. MENTAL STATUS EXAM: General Appearance: Patient appears to be overweight, older than stated age is alert, directable, and attempts to cooperate. Using a walker. Patient appears to have poor hygiene and grooming. Behavior: Patient is seated without any agitated behavior. Speech: Patient's speech is fluent and nonpressured. Mood/Affect: Patient reports their mood is depressed, affect is congruent and constricted. Suicidality/Homicidality: Patient denies having any homicidal ideation intent or plan. She admits to ongoing suicidal thoughts however no intent or plan. Perceptions: Patient denies any visual hallucinations and denies any auditory hallucinations Though content/process: Focused on her stressors and her suicidal thoughts. Logical and goal oriented. Memory and concentration: AOX3, grossly intact for the purposes of this session. Can spell "WORLD" backwards Judgment and insight: poor STRENGTHS/WEAKNESSES: strength is that patient is resilient. Weakness is that patient has poor social support and multiple medical comorbidities. INTELLECT: average IMPRESSIONS: Major depressive disorder, without psychotic features Anxiety disorder unspecified PLAN: -Patient is admitted under voluntary status to [facility] for stabilization of psychiatric symptoms and safety. Patient has signed adult voluntary form and medication consent and is placed in patient's chart. -Medications : Will start patient on Zoloft 75 mg daily for mood/anxiety. Continue with Abilify 5 mg daily for mood adjunct. Remeron 45 mg daily at bedtime, Seroquel 50 mg daily at bedtime, Vistaril 25 mg 3 times a day for anxiety. -Ativan and Haldol PRN for agitation/aggression -Patient was informed of the risks, benefits and side effects of the medication and patient verbally consented to taking the medications. Patient signed med consent form and was placed in chart. -Internal Medicine consult to perform medical evaluation and physical. -NRT - not needed as patient does not smoke. -SW on board for discharge planning. Encourage patient to participate in groups to work on coping skills. acetone recovery worker to look into discharge planning as patient would like to be discharged to her ex-'s house.
[2020-12-28 13:02] LABS: Glucose,Whole Blood 157 mg/dL (75-99)
[2020-12-28 17:41] LABS: Glucose,Whole Blood 290 mg/dL (75-99)
--- NOTE | 2020-12-28 19:48 | P.CONS ---
History of Present Illness - Reason for Consult Consult date: 12/28/20 - History of Present Illness Aminta Sheikh, he is a 55-year-old female who presented to [facility] emergency room due to depression and suicidal ideation, patient stated that she had an argument with her stepdaughter with whom she is currently residing, she was told that she had to leave, she had nowhere to go and she was planning on taking her walker and walking out into traffic, however she decided to come to emergency room instead she was evaluated in the emergency room and was admitted to the psychiatry unit for further evaluation and treatment. Patient has a known history of psychiatric illness and is maintained on multiple psychiatric medications in a complex regimen that was started [place] per patient, her regimen included Zoloft, Abilify, Seroquel, Remeron, and Vistaril. Patient also has a complex medical history including history of hypertension, hyperlipidemia, hypothyroidism, history of seizure disorder, history of insulin- dependent diabetes mellitus, and history of coronary artery disease with history of coronary artery bypass graft surgery and history of multiple angioplasty and stent placement. Recently patient has been presenting to emergency room repeatedly once or twice weekly with complaints of chest pain she was evaluated by cardiology multiple times and no further intervention was recommended for her at this time. Past Medical History Past Medical History: Coronary Artery Disease (CAD), Chest Pain / Angina, COPD, CVA/TIA, Diabetes Mellitus, GERD/Reflux, GI Bleed, Hyperlipidemia, Hypertension, Myocardial Infarction (MD), Musculoskeletal Disorder, Pneumonia, Thyroid Disorder Additional Past Medical History / Comment(s): Pt was recently admitted to [facility] for cardiac related issues.Pt recently admitted to [facility] on 10/29/20 with abdominal pain/colitis, aphasia/ams/L facial numbness/possible acuteischemic stroke. 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 Last Myocardial Infarction Date:: 2015 History of Any Multi-Drug Resistant Organisms: ESBL Year Discovered:: 08/27/20 MDRO Source:: ESBL URINE Past Surgical History: Appendectomy, Bladder Surgery, Cardiac Valve Replacement, Cholecystectomy, Coronary Bypass/CABG, Heart Catheterization, Heart Catheterization With Stent, Hysterectomy Additional Past Surgical History / Comment(s): 2014 CABG 4 vessel, 2017 mitral valve replacement, PCIs with multiple stents, bilateral leg stents, bladder susupension, colonoscopy. Past Anesthesia/Blood Transfusion Reactions: No Reported Reaction Date of Last Stent Placement:: 06/25/20 Smoking Status: Former smoker - Past Family History Father Family Medical History: Coronary Artery Disease (CAD) Additional Family Medical History / Comment(s): heart disease Mother Family Medical History: Cancer Additional Family Medical History / Comment(s): Lung cancer Medications and Allergies Home Medications Medication Instructions Recorded Confirmed Type ARIPiprazole [Abilify] 5 mg PO DAILY 05/21/20 12/26/20 History Cyclobenzaprine [Flexeril] 10 mg PO TID PRN 05/21/20 12/26/20 History Mirtazapine [Remeron] 45 mg PO HS 05/21/20 12/26/20 History QUEtiapine [SEROquel] 50 mg PO HS 05/21/20 12/26/20 History Ranolazine [Ranexa] 1,000 mg PO BID 05/21/20 12/26/20 History Sertraline [Zoloft] 50 mg PO DAILY 05/21/20 12/26/20 History hydrOXYzine pamoate [Vistaril] 25 mg PO TID 05/21/20 12/26/20 History Ticagrelor [Brilinta] 90 mg PO BID tab 06/27/20 12/26/20 Rx Aspirin 81 mg PO DAILY chew 08/20/20 12/26/20 Rx lisinopriL [Zestril] 2.5 mg PO DAILY tab 08/20/20 12/26/20 Rx Ezetimibe [Zetia] 10 mg PO DAILY 30 Days #30 tab 09/15/20 12/26/20 Rx Metoprolol Tartrate [Lopressor] 50 mg PO BID 60 Days #30 tab 09/15/20 12/26/20 Rx Furosemide [Lasix] 40 mg PO DAILY 09/21/20 12/26/20 History Potassium Chloride ER [K-Dur 20] 20 meq PO DAILY 09/21/20 12/26/20 History Spironolactone [Aldactone] 25 mg PO DAILY 09/21/20 12/26/20 History Ferrous Sulfate [Iron (65 MG 325 mg PO DAILY 10/18/20 12/26/20 History Elemental)] Folic Acid 1 mg PO DAILY 10/18/20 12/26/20 History Insulin Glargine,Hum.rec.anlog 28 unit SQ BID 10/18/20 12/26/20 History [Lantus Solostar] Levothyroxine Sodium [Synthroid] 200 mcg PO DAILY 10/18/20 12/26/20 History levETIRAcetam [Keppra] 500 mg PO Q12H 10/18/20 12/26/20 History HYDROcodone/APAP 10-325MG [[place] 1 tab PO Q6H PRN 11/16/20 12/26/20 History 10-325] INSULIN ASPART (NovoLOG) [NovoLOG See Protocol SQ ACHS 11/16/20 12/26/20 History (formulary)] Pantoprazole [Protonix] 40 mg PO AC-BID tablet. 11/18/20 12/26/20 Rx Loperamide HCl [Imodium A-D] 2 - 4 mg PO QID PRN 12/09/20 12/26/20 History Atorvastatin [Lipitor] 80 mg PO DAILY tab 12/11/20 12/26/20 Rx INSULIN ASPART (NovoLOG) [NovoLOG 7 unit SQ ACHS vial 12/18/20 12/26/20 Rx (formulary)] Nitroglycerin Sl Tabs [Nitrostat] 0.4 mg SUBLINGUAL Q5M PRN tab 12/18/20 12/26/20 Rx Isosorbide Mononitrate ER [Imdur] 60 mg PO BID #0 tab.er.24h 12/20/20 12/26/20 Rx amLODIPine [Norvasc] 5 mg PO DAILY #90 tab 12/20/20 12/26/20 Rx Nystatin 100,000 Unit/gm Powd 1 applic TOPICAL TID #1 bottle 12/26/20 12/26/20 Rx [Mycostatin Powder] Allergies Allergy/AdvReac Type Severity Reaction Status Date / Time gabapentin Allergy Severe Anaphylaxis Verified 12/26/20 22:20 shellfish derived [Crab] Allergy Intermediate Rash/Hives Verified 12/26/20 22:20 Physical Exam Vitals: Vital Signs Temp Pulse Pulse Pulse Resp BP BP 12/28/20 08:50 80 18 12/28/20 06:52 96.8 F L 56 L 16 135/63 12/27/20 23:59 98.4 F 92 16 109/76 12/27/20 19:30 98.3 F 69 16 123/72 12/27/20 13:39 98.3 F 69 16 123/72 12/27/20 10:08 98.0 F 64 16 121/65 BP Pulse Ox 12/28/20 08:50 111/63 100 12/28/20 06:52 12/27/20 23:59 98 12/27/20 19:30 99 12/27/20 13:39 99 12/27/20 10:08 100 In general patient is alert and oriented x 3 in no distress HEENT head normocephalic and atraumatic Neck is supple no JVD no goiter no lymphadenopathy no carotid bruit Chest examination is clear to auscultation no crackles no wheezing Cardiac exam reveals regular heart sounds S1 and S2 no gallops no murmurs Abdomen is soft nontender no organomegaly with normal bowel sounds Extremity exam reveals no edema no cyanosis or clubbing Neurological examination reveals no gross focal deficits Results Labs: Abnormal Lab Results - Last 24 Hours (Table) 12/27/20 12/27/20 12/28/20 Range/Units 17:24 20:58 07:46 POC Glucose (mg/dL) 339 H 371 H 121 H (75-99) mg/dL Assessment and Plan Plan: Depression with anxiety disorder and suicidal ideation Social issues related to argument with stepdaughter, patient was residing with her, which may not be amenable to her after discharge, patient states that her plan is to return to her ex- [facility], social worker delinquency prevention involvement may prove to be very valuable at this time. Most likely patient to repeated visits to emergency room is related to lack of residence. Underlying history of advanced coronary artery disease stable at this time patient was evaluated repeatedly by cardiology in the last 2 months no intervention is necessary at this time Underlying history of insulin-dependent diabetes mellitus Underlying history of hypertension Underlying history of hyperlipidemia Underlying history of hypothyroidism Underlying history of seizure disorder maintained on Keppra At this time patient is admitted to psychiatry unit Will follow closely during this admission for medical management Home medications reviewed and reordered Psychiatric medications regimen are being adjusted by primary psychiatry team. petroleum refinery worker involvement would be very valuable to help with outpatient residence issue
[2020-12-28 20:21] LABS: Glucose,Whole Blood 265 mg/dL (75-99)
[2020-12-28] MEDS: MIRTAZAPINE 45 MG TABLET PO SCH (20:54)
[2020-12-28] MEDS: QUEtiapine 50 MG TAB PO SCH (20:55)
[2020-12-29] MEDS: LEVOTHYROXINE 100 MCG TAB PO SCH (06:39)
[2020-12-29 08:08] LABS: Glucose,Whole Blood 117 mg/dL (75-99)
[2020-12-29] MEDS: INSULIN ASPART (NovoLOG) 100 UNIT/ML VIAL SQ SCH ×8 (08:11→20:18)
[2020-12-29] MEDS ORDERED: SERTRALINE 25 MG TAB PO SCH (09:00)
[2020-12-29] MEDS: amLODIPine 5 MG TAB PO SCH (09:05)
[2020-12-29] MEDS: PANTOPRAZOLE 40 MG TABLET PO SCH ×2 (09:05→17:40)
[2020-12-29] MEDS: ATORVASTATIN 80 MG TAB PO SCH (09:06)
[2020-12-29] MEDS: ARIPiprazole 5 MG TAB PO SCH (09:06)
[2020-12-29] MEDS: ASPIRIN 81 MG PO SCH (09:06)
[2020-12-29] MEDS: FUROSEMIDE 40 MG TAB PO SCH (09:07)
[2020-12-29] MEDS: FERROUS SULFATE 325 MG TAB PO SCH (09:07)
[2020-12-29] MEDS: hydrOXYzine pamoate 25 MG CAP PO SCH ×3 (09:07→20:50)
[2020-12-29] MEDS: FOLIC ACID 1 MG TAB PO SCH (09:07)
[2020-12-29] MEDS: EZETIMIBE 10 MG TAB PO SCH (09:07)
[2020-12-29] MEDS: levETIRAcetam 500 MG TAB PO SCH ×2 (09:08→20:49)
[2020-12-29] MEDS: INSULIN DETEMIR (LEVEMIR) 100 UNIT/ML SYR SQ SCH ×2 (09:08→20:47)
[2020-12-29] MEDS: POTASSIUM CHLORIDE ER 20 MEQ TAB.ER PO SCH (09:09)
[2020-12-29] MEDS: NYSTATIN 100,000 UNIT/GM POWD 15 GM TOPICAL SCH ×3 (09:09→21:11)
[2020-12-29] MEDS: METOPROLOL TARTRATE 50 MG TAB PO SCH ×2 (09:09→20:49)
[2020-12-29] MEDS: SPIRONOLACTONE 25 MG TAB PO SCH (09:10)
[2020-12-29] MEDS: RANOLAZINE 500 MG TAB.ER.12H PO SCH ×2 (09:10→20:49)
[2020-12-29] MEDS: TICAGRELOR 90 MG TAB PO SCH ×2 (09:10→20:50)
[2020-12-29] MEDS: ISOSORBIDE MONONITRATE ER 60 MG TAB.ER.24H PO SCH ×2 (09:11→20:49)
[2020-12-29] MEDS: HYDROcodone/APAP 5-325MG 1 EACH TAB PO PRN ×3 (09:13→22:05)
--- NOTE | 2020-12-29 09:59 | P.PN ---
Progress Note - Text Progress Note Date: 12/29/20 Interval History: Patient was seen [wandering the hallways] and was directable and agreeable to speak with poem writer in the office. Patient appears to have mild improvement in her affect today. She was fairly appropriate with the poem writer today however continues to be concrete and vague. She states that she is still feeling depressed and suicidal at times however is denying any intent or plan. She claims that she feels "just useless". She states that she has seen mild improvement in her anxiety since her medication was increased. She continues to speak about wanting to stay with her ex- upon discharge. She claims that she did go to 2 groups last night which were mainly activity groups and claims that they're helpful. She states that she had "on and off sleep last night".. At this time patient denies any homical ideations, intent or plan. Patient denies any auditory, visual hallucinations and denies any paranoia or delusions. Patient denies any side effects from the medications and has been compliant with meds. Mental Status Exam: General Appearance: Patient appears to be overweight, older than stated age is alert, directable, and attempts to cooperate. Using a walker. Patient appears to have mildly improving hygiene and grooming. Behavior: Patient is seated without any agitated behavior. Speech: Patient's speech is fluent and nonpressured. Mood/Affect: Patient reports their mood is depressed, improving mildly, affect is congruent and constricted. Suicidality/Homicidality: Patient denies having any homicidal ideation intent or plan. She admits to ongoing suicidal thoughts however no intent or plan. Perceptions: Patient denies any visual hallucinations and denies any auditory hallucinations Though content/process: Focused on her stressors and her suicidal thoughts. Logical and goal oriented. Memory and concentration: AOX3, grossly intact for the purposes of this session. Judgment and insight: poor, improving mildly Assessment Major depressive disorder, without psychotic features Anxiety disorder unspecified Plan: -Patient continues to meet criteria for inpatient psychiatric admission for symptom stabilization and safety. Patient has signed [adult voluntary form and] [medication consent] and was placed in patient's chart. -Medications: Will increase Zoloft to 100 mg daily for mood/anxiety. Continue with Abilify 5 mg daily for mood adjunct. Increased Seroquel to 75 mg daily at bedtime and continue with Remeron 45 mg daily at bedtime. Vistaril 25mg tid for anxiety. -When necessary Ativan and Haldol for agitation/aggression. -NRT - not needed as patient does not smoke -SW on board for discharge planning. Encouraged the patient to participate in milieu. terrazzo worker apprentice to look into discharge planning as patient would like to be discharged to her ex-'s house. liekly discharge in 1-2 days.
[2020-12-29 12:51] LABS: Glucose,Whole Blood 181 mg/dL (75-99)
[2020-12-29] MEDS: LOPERAMIDE 2 MG CAP PO PRN (16:03)
[2020-12-29 17:47] LABS: Glucose,Whole Blood 194 mg/dL (75-99)
[2020-12-29 20:13] LABS: Glucose,Whole Blood 196 mg/dL (75-99)
[2020-12-29] MEDS: MIRTAZAPINE 45 MG TABLET PO SCH (20:49)
[2020-12-29] MEDS ORDERED: QUEtiapine 25 MG TAB PO SCH (21:00)
[2020-12-30] MEDS: LEVOTHYROXINE 100 MCG TAB PO SCH (05:50)
[2020-12-30] MEDS: SERTRALINE 100 MG TAB PO SCH (08:04)
[2020-12-30] MEDS: FERROUS SULFATE 325 MG TAB PO SCH (08:04)
[2020-12-30] MEDS: hydrOXYzine pamoate 25 MG CAP PO SCH ×3 (08:04→21:00)
[2020-12-30] MEDS: ARIPiprazole 5 MG TAB PO SCH (08:04)
[2020-12-30] MEDS: PANTOPRAZOLE 40 MG TABLET PO SCH ×2 (08:04→17:13)
[2020-12-30] MEDS: ASPIRIN 81 MG PO SCH (08:04)
[2020-12-30] MEDS: FOLIC ACID 1 MG TAB PO SCH (08:05)
[2020-12-30] MEDS: levETIRAcetam 500 MG TAB PO SCH ×2 (08:05→20:59)
[2020-12-30] MEDS: ATORVASTATIN 80 MG TAB PO SCH (08:06)
[2020-12-30] MEDS: EZETIMIBE 10 MG TAB PO SCH (08:06)
[2020-12-30 08:09] LABS: Glucose,Whole Blood 172 mg/dL (75-99)
[2020-12-30] MEDS: INSULIN ASPART (NovoLOG) 100 UNIT/ML VIAL SQ SCH ×8 (08:09→20:57)
[2020-12-30] MEDS: LOPERAMIDE 2 MG CAP PO PRN (08:09)
[2020-12-30] MEDS: INSULIN DETEMIR (LEVEMIR) 100 UNIT/ML SYR SQ SCH ×2 (08:10→20:57)
[2020-12-30] MEDS: HYDROcodone/APAP 5-325MG 1 EACH TAB PO PRN ×2 (10:22→17:14)
[2020-12-30] MEDS: ISOSORBIDE MONONITRATE ER 60 MG TAB.ER.24H PO SCH ×2 (10:23→22:58)
[2020-12-30] MEDS: SPIRONOLACTONE 25 MG TAB PO SCH (10:23)
[2020-12-30] MEDS: METOPROLOL TARTRATE 50 MG TAB PO SCH ×2 (10:23→22:58)
[2020-12-30] MEDS: amLODIPine 5 MG TAB PO SCH (10:24)
[2020-12-30] MEDS: TICAGRELOR 90 MG TAB PO SCH ×2 (10:24→20:59)
[2020-12-30] MEDS: NYSTATIN 100,000 UNIT/GM POWD 15 GM TOPICAL SCH ×3 (10:24→22:58)
[2020-12-30] MEDS: FUROSEMIDE 40 MG TAB PO SCH (10:24)
[2020-12-30] MEDS: RANOLAZINE 500 MG TAB.ER.12H PO SCH ×2 (10:24→20:59)
[2020-12-30] MEDS: POTASSIUM CHLORIDE ER 20 MEQ TAB.ER PO SCH (10:24)
--- NOTE | 2020-12-30 11:14 | P.PN ---
Progress Note - Text Progress Note Date: 12/30/20 Interval History: Patient was seen wandering the hallways and was directable and agreeable to sp nay with television writer in the office. Patient appears to have mild improvement in her affect today. She continues to state that she is feeling depressed claims that she does not feel safe to be discharged today as she "doesn't know what all happened to me". She did make some passive suicidal remarks today. She did claim that she feels the medication has been slowly helping her in terms of her mood however states that her anxiety is still elevated. She states that she is trying to go to groups during the day to participate. She was fairly appropriate with the television writer today however continues to be concrete. She continues to speak about wanting to stay with her ex- upon discharge. She states that she did sleep a little better last night approximately 5-6 hrs of sleep and was requesting to have her Seroquel increased to 100 mg tonight. At this time patient denies any homical ideations, intent or plan. Patient denies any auditory, visual hallucinations and denies any paranoia or delusions. Patient denies any side effects from the medications and has been compliant with meds. Mental Status Exam: General Appearance: Patient appears to be overweight, older than stated age is alert, directable, and attempts to cooperate. Using a walker. Patient appears to have mildly improving hygiene and grooming. Behavior: Patient is seated without any agitated behavior. Speech: Patient's speech is fluent and nonpressured. Mood/Affect: Patient reports their mood is depressed, improving mildly, affect is congruent and constricted. Suicidality/Homicidality: Patient denies having any homicidal ideation intent or plan. She admits to ongoing suicidal thoughts however no intent or plan. Perceptions: Patient denies any visual hallucinations and denies any auditory hallucinations Though content/process: less focused on her stressors today. Logical and goal oriented. Memory and concentration: AOX3, grossly intact for the purposes of this session. Judgment and insight: improving mildly Assessment Major depressive disorder, without psychotic features Anxiety disorder unspecified Plan: -Patient continues to meet criteria for inpatient psychiatric admission for symptom stabilization and safety. Patient has signed [adult voluntary form and] [medication consent] and was placed in patient's chart. -Medications: Zoloft to 100 mg daily for mood/anxiety. Continue with Abilify 5 mg daily for mood adjunct. Increased Seroquel to 100 mg daily at bedtime and continue with Remeron 45 mg daily at bedtime. Vistaril 25mg tid for anxiety. -When necessary Ativan and Haldol for agitation/aggression. -NRT - not needed as patient does not smoke -SW on board for discharge planning. Encouraged the patient to participate in milieu. insemination worker to look into discharge planning as patient would like to be discharged to her ex-'s house. liekly discharge tomorrow
[2020-12-30 12:44] LABS: Glucose,Whole Blood 97 mg/dL (75-99)
--- NOTE | 2020-12-30 17:02 | P.PN ---
Subjective Progress Note Date: 12/30/20 Today I received a call from the psychiatry unit nurse in regard to patient's Aminta Sheikh, patient blood pressure this morning was low at 94/53 and 87/52 I reviewed all of patient blood pressure readings since admission and all of them are on the low side and some of them are significantly low, I reviewed her medications, and at this time I am going to decrease amlodipine from 5 mg daily to 2.5 mg daily, will continue to follow blood pressure readings very closely. Objective - Vital Signs Vital signs: Vital Signs Temp 97.1 F L 12/30/20 06:22 Pulse 79 12/30/20 10:26 Resp 16 12/30/20 06:22 BP 129/58 12/30/20 10:26 Pulse Ox 99 12/28/20 14:29 - Labs Labs: Abnormal Lab Results - Last 24 Hours (Table) 12/29/20 12/29/20 12/30/20 Range/Units 17:43 20:11 07:49 POC Glucose (mg/dL) 194 H 196 H 172 H (75-99) mg/dL
[2020-12-30 17:47] LABS: Glucose,Whole Blood 202 mg/dL (75-99)
[2020-12-30 20:15] LABS: Glucose,Whole Blood 178 mg/dL (75-99)
[2020-12-30] MEDS: MIRTAZAPINE 45 MG TABLET PO SCH (20:59)
[2020-12-30] MEDS ORDERED: QUEtiapine 100 MG TAB PO SCH (21:00)
[2020-12-31] MEDS: LEVOTHYROXINE 100 MCG TAB PO SCH (06:57)
[2020-12-31 07:51] LABS: Glucose,Whole Blood 77 mg/dL (75-99)
[2020-12-31] MEDS: INSULIN ASPART (NovoLOG) 100 UNIT/ML VIAL SQ SCH ×8 (07:57→20:07)
[2020-12-31] MEDS: INSULIN DETEMIR (LEVEMIR) 100 UNIT/ML SYR SQ SCH ×2 (08:00→20:06)
[2020-12-31] MEDS: HYDROcodone/APAP 5-325MG 1 EACH TAB PO PRN ×3 (08:04→20:13)
[2020-12-31] MEDS: PANTOPRAZOLE 40 MG TABLET PO SCH ×2 (09:19→16:53)
[2020-12-31] MEDS: ASPIRIN 81 MG PO SCH (09:20)
[2020-12-31] MEDS: ARIPiprazole 5 MG TAB PO SCH (09:20)
[2020-12-31] MEDS: FERROUS SULFATE 325 MG TAB PO SCH (09:21)
[2020-12-31] MEDS: ATORVASTATIN 80 MG TAB PO SCH (09:21)
[2020-12-31] MEDS: EZETIMIBE 10 MG TAB PO SCH (09:21)
[2020-12-31] MEDS: NYSTATIN 100,000 UNIT/GM POWD 15 GM TOPICAL SCH ×3 (09:22→21:18)
[2020-12-31] MEDS: hydrOXYzine pamoate 25 MG CAP PO SCH ×3 (09:22→20:07)
[2020-12-31] MEDS: FOLIC ACID 1 MG TAB PO SCH (09:22)
[2020-12-31] MEDS: levETIRAcetam 500 MG TAB PO SCH ×2 (09:22→20:08)
[2020-12-31] MEDS: POTASSIUM CHLORIDE ER 20 MEQ TAB.ER PO SCH (09:22)
[2020-12-31] MEDS: FUROSEMIDE 40 MG TAB PO SCH (09:22)
[2020-12-31] MEDS: SERTRALINE 100 MG TAB PO SCH (09:23)
[2020-12-31] MEDS: RANOLAZINE 500 MG TAB.ER.12H PO SCH ×2 (09:23→20:08)
[2020-12-31] MEDS: TICAGRELOR 90 MG TAB PO SCH ×2 (09:23→20:08)
[2020-12-31] MEDS: amLODIPine 2.5 MG TAB PO SCH ×2 (09:24→16:53)
[2020-12-31] MEDS: SPIRONOLACTONE 25 MG TAB PO SCH ×2 (09:25→16:53)
[2020-12-31] MEDS: METOPROLOL TARTRATE 50 MG TAB PO SCH ×2 (09:25→20:08)
[2020-12-31] MEDS: ISOSORBIDE MONONITRATE ER 60 MG TAB.ER.24H PO SCH ×2 (09:25→20:08)
--- NOTE | 2020-12-31 10:28 | P.PN ---
Progress Note - Text Progress Note Date: 12/31/20 Interval History: Patient was seen wandering the hallways and was directable and agreeable to cristin tee with video games storywriter in the office. Patient appears to have mild improvement in her affect today however continues to state that she is feeling depressed and anxious today. She claims that she is still having suicidal thoughts however is not endorsing any plan today. She claims that "I want this feeling to stop". She claims that she is in great distress from the suicidal thoughts and has been trying to go to group and participate as best as she can. She claims that her plan fell through of going to stay with her ex- and is now looking at going [place] [facility] [place]. She appears to have mild improvement in her hygiene and grooming today.. She claims that she was not able to sleep well last night and was requesting never Seroquel increased. At this time patient denies any homical ideations, intent or plan. Patient denies any auditory, visual hallucinations and denies any paranoia or delusions. Patient denies any side effects from the medications and has been compliant with meds. Mental Status Exam: General Appearance: Patient appears to be overweight, older than stated age is alert, directable, and attempts to cooperate. Using a walker. Patient appears to have mildly improving hygiene and grooming. Behavior: Patient is seated without any agitated behavior. Speech: Patient's speech is fluent and nonpressured. Mood/Affect: Patient reports their mood is depressed, affect is congruent and constricted. Suicidality/Homicidality: Patient denies having any homicidal ideation intent or plan. She admits to ongoing suicidal thoughts however no intent or plan. Perceptions: Patient denies any visual hallucinations and denies any auditory hallucinations Though content/process: Logical and goal oriented. [place]. Memory and concentration: AOX3, grossly intact for the purposes of this session. Judgment and insight: improving mildly Assessment Major depressive disorder, without psychotic features Anxiety disorder unspecified Plan: -Patient continues to meet criteria for inpatient psychiatric admission for symptom stabilization and safety. Patient has signed [adult voluntary form and] [medication consent] and was placed in patient's chart. -Medications: increase Zoloft to 150 mg daily for mood/anxiety. Continue with Abilify 5 mg daily for mood adjunct. Increased Seroquel to 150 mg daily at bedtime and continue with Remeron 45 mg daily at bedtime. Vistaril 25mg tid for anxiety. -When necessary Ativan and Haldol for agitation/aggression. -NRT - not needed as patient does not smoke -SW on board for discharge planning. Encouraged the patient to participate in milieu. mat worker to look into discharge planning as patient would like to be discharged to her ex-'s house. [place] [facility] if patient improves over the weekend.
[2020-12-31 12:56] LABS: Glucose,Whole Blood 97 mg/dL (75-99)
[2020-12-31] MEDS: LORazepam 1 MG TAB PO PRN (13:55)
[2020-12-31 17:47] LABS: Glucose,Whole Blood 131 mg/dL (75-99)
[2020-12-31 20:03] LABS: Glucose,Whole Blood 292 mg/dL (75-99)
[2020-12-31] MEDS: QUEtiapine 50 MG TAB PO SCH (20:08)
[2020-12-31] MEDS: MIRTAZAPINE 45 MG TABLET PO SCH (20:08)
[2021-01-01] MEDS: LEVOTHYROXINE 100 MCG TAB PO SCH (05:12)
[2021-01-01] MEDS: LOPERAMIDE 2 MG CAP PO PRN ×2 (05:12→20:58)
[2021-01-01 08:09] LABS: Glucose,Whole Blood 163 mg/dL (75-99)
[2021-01-01] MEDS: INSULIN DETEMIR (LEVEMIR) 100 UNIT/ML SYR SQ SCH ×2 (08:19→21:36)
[2021-01-01] MEDS: INSULIN ASPART (NovoLOG) 100 UNIT/ML VIAL SQ SCH ×8 (08:19→21:35)
[2021-01-01] MEDS: FOLIC ACID 1 MG TAB PO SCH (08:45)
[2021-01-01] MEDS: PANTOPRAZOLE 40 MG TABLET PO SCH ×2 (08:45→16:19)
[2021-01-01] MEDS: ASPIRIN 81 MG PO SCH (08:45)
[2021-01-01] MEDS: ATORVASTATIN 80 MG TAB PO SCH (08:45)
[2021-01-01] MEDS: SERTRALINE 50 MG TAB PO SCH (08:45)
[2021-01-01] MEDS: EZETIMIBE 10 MG TAB PO SCH (08:45)
[2021-01-01] MEDS: ARIPiprazole 5 MG TAB PO SCH (08:45)
[2021-01-01] MEDS: FERROUS SULFATE 325 MG TAB PO SCH (08:45)
[2021-01-01] MEDS: levETIRAcetam 500 MG TAB PO SCH ×2 (08:47→20:55)
[2021-01-01] MEDS: TICAGRELOR 90 MG TAB PO SCH ×2 (08:47→20:55)
[2021-01-01] MEDS: FUROSEMIDE 40 MG TAB PO SCH (08:47)
[2021-01-01] MEDS: POTASSIUM CHLORIDE ER 20 MEQ TAB.ER PO SCH (08:47)
[2021-01-01] MEDS: hydrOXYzine pamoate 25 MG CAP PO SCH ×3 (08:48→21:58)
[2021-01-01] MEDS: HYDROcodone/APAP 5-325MG 1 EACH TAB PO PRN ×3 (08:49→21:35)
[2021-01-01] MEDS: RANOLAZINE 500 MG TAB.ER.12H PO SCH ×2 (11:07→21:34)
[2021-01-01] MEDS: METOPROLOL TARTRATE 50 MG TAB PO SCH ×2 (11:08→20:55)
[2021-01-01] MEDS: ISOSORBIDE MONONITRATE ER 60 MG TAB.ER.24H PO SCH ×2 (11:08→20:55)
[2021-01-01] MEDS: amLODIPine 2.5 MG TAB PO SCH (11:08)
[2021-01-01] MEDS: NYSTATIN 100,000 UNIT/GM POWD 15 GM TOPICAL SCH ×3 (11:09→21:58)
[2021-01-01] MEDS: SPIRONOLACTONE 25 MG TAB PO SCH (11:09)
[2021-01-01 12:53] LABS: Glucose,Whole Blood 75 mg/dL (75-99)
[2021-01-01] MEDS: LORazepam 1 MG TAB PO PRN (13:54)
[2021-01-01] MEDS: CYCLOBENZAPRINE 10 MG TAB PO PRN (13:55)
--- NOTE | 2021-01-01 15:04 | PN ---
PROGRESS NOTE DATE OF SERVICE: 01/01/2021 CHIEF COMPLAINT: The patient was depressed. She had suicide thoughts. She felt that people were using her. INTERVAL HISTORY: Patient has been doing fair. She had a quiet day yesterday. She comes out on the unit. She has been attending most of the groups. She tends to have a quiet manner in groups though is appropriate. She tends to keep to herself. She will interact a little with others. Generally, she has a quiet manner. She said she slept well last night, which was some relief for her, as she had not been sleeping well. Today she spent up. Overall, she says her medicines seem to be helping. She has a better mood and outlook. She talked at length about discharge planning issues. She has set up plans to go into a long term until she gets her SSI SSD money. She notes that she has a debit card which she has secured so that other people who may have been using that card will not have access to it. She has been on food stamps. She says once she gets her payments, she will be able to get into a more stable living situation. She says she is comfortable moving into a long term upon discharge. She is hopeful to be discharged early in the week. She did not note any side effects or problems with her psychotropic medications. MENTAL STATUS: Patient sat without restlessness. Psychomotor activity was slowed. She spoke in a somewhat soft and at times monotone voice. She answered questions appropriately. Her thoughts were clear. Her affect was blunted. Her mood quiet, though not clearly depressed. She did not seem distressed. She was a little more responsive in the interview towards the end. There was no indication of thought disorder. She denied thoughts of harm. She was oriented and alert. ASSESSMENT: I will continue the current diagnosis and treatment plan. We will continue to engage the patient in individual and group therapeutic activities. She will continue psychotropic medications the same including Zoloft 150 mg a day, Seroquel 150 mg at bedtime, Remeron 45 mg at bedtime and Abilify 5 mg daily. We reviewed discharge planning issues. I also reviewed her medications. We talked about indications, side effects, potential issues relating to her antipsychotic medications regarding metabolics and possible movement disorder issues. I reviewed time course of treatment relating to antidepressants. We will focus on stabilization and discharge planning. MMODL / IJN: [id number] /
[2021-01-01 17:39] LABS: Glucose,Whole Blood 200 mg/dL (75-99)
[2021-01-01 20:00] LABS: Glucose,Whole Blood 129 mg/dL (75-99)
[2021-01-01] MEDS: QUEtiapine 50 MG TAB PO SCH (20:55)
[2021-01-01] MEDS: MIRTAZAPINE 45 MG TABLET PO SCH (20:56)
[2021-01-02] MEDS: CYCLOBENZAPRINE 10 MG TAB PO PRN (02:05)
[2021-01-02] MEDS: LOPERAMIDE 2 MG CAP PO PRN (03:38)
[2021-01-02] MEDS: HYDROcodone/APAP 5-325MG 1 EACH TAB PO PRN ×3 (03:38→18:20)
[2021-01-02] MEDS: LEVOTHYROXINE 100 MCG TAB PO SCH (06:33)
[2021-01-02 07:44] LABS: Glucose,Whole Blood 75 mg/dL (75-99)
[2021-01-02] MEDS: INSULIN ASPART (NovoLOG) 100 UNIT/ML VIAL SQ SCH ×8 (08:40→20:51)
[2021-01-02] MEDS: PANTOPRAZOLE 40 MG TABLET PO SCH ×2 (08:54→17:31)
[2021-01-02] MEDS: amLODIPine 2.5 MG TAB PO SCH (08:54)
[2021-01-02] MEDS: METOPROLOL TARTRATE 50 MG TAB PO SCH ×2 (08:54→20:48)
[2021-01-02] MEDS: ATORVASTATIN 80 MG TAB PO SCH (08:55)
[2021-01-02] MEDS: POTASSIUM CHLORIDE ER 20 MEQ TAB.ER PO SCH (08:55)
[2021-01-02] MEDS: ARIPiprazole 5 MG TAB PO SCH (08:55)
[2021-01-02] MEDS: FOLIC ACID 1 MG TAB PO SCH (08:55)
[2021-01-02] MEDS: FERROUS SULFATE 325 MG TAB PO SCH (08:55)
[2021-01-02] MEDS: hydrOXYzine pamoate 25 MG CAP PO SCH ×3 (08:55→21:02)
[2021-01-02] MEDS: RANOLAZINE 500 MG TAB.ER.12H PO SCH ×2 (08:55→20:48)
[2021-01-02] MEDS: ASPIRIN 81 MG PO SCH (08:55)
[2021-01-02] MEDS: ISOSORBIDE MONONITRATE ER 60 MG TAB.ER.24H PO SCH ×2 (08:56→20:49)
[2021-01-02] MEDS: TICAGRELOR 90 MG TAB PO SCH ×2 (08:56→20:48)
[2021-01-02] MEDS: levETIRAcetam 500 MG TAB PO SCH ×2 (08:56→20:47)
[2021-01-02] MEDS: EZETIMIBE 10 MG TAB PO SCH (08:56)
[2021-01-02] MEDS: NYSTATIN 100,000 UNIT/GM POWD 15 GM TOPICAL SCH ×3 (08:57→21:02)
[2021-01-02] MEDS: INSULIN DETEMIR (LEVEMIR) 100 UNIT/ML SYR SQ SCH ×2 (08:57→20:50)
[2021-01-02] MEDS: SPIRONOLACTONE 25 MG TAB PO SCH (08:57)
[2021-01-02] MEDS: SERTRALINE 50 MG TAB PO SCH (08:57)
[2021-01-02] MEDS: FUROSEMIDE 40 MG TAB PO SCH (08:58)
--- NOTE | 2021-01-02 12:28 | PN ---
PROGRESS NOTE DATE OF SERVICE: 01/02/2021. CHIEF COMPLAINT: The patient was depressed she had suicide thoughts. She felt that people were using her. INTERVAL HISTORY: Patient has been doing fair. She had a quiet day yesterday. She comes out on the unit. She tends to have a quiet manner though she will interact with others. She attended 2 groups yesterday, 1 for a limited amount of time. She seemed to do reasonably well in the group setting. She said she slept fair last night. She did not sleep as well as she slept the night before today. She has been up. She has been focused on what she has to deal with in terms of discharge. She notes that she anticipates going to a snf and that she should have her SSI and SSD money secured by January 15. She said that she had been living with the same person for the last year, though says that "new things were coming." She felt that person was very self-absorbed and that person would use her only for the person's benefit. The patient notes that she would consider moving towards [facility] as that is where her ex- lives and she feels she would be able to get some support there. The patient feels that overall she is making a little progress in her mood. She still acknowledges that she has some negative thoughts and that can turn into some suicide thinking, though she has no intention or plan in that regard. It is noted that the patient is on Keppra. She had a heart valve replacement in 2014 and had seizures at that time related to the valve issues. Apparently she has not had seizure problems since then. She feels that her psychotropic medications have been helping. She tolerates psychotropic medications. MENTAL STATUS: Patient sat without restlessness. Eye contact was fair. She tended to look often in the distance more than not. She answered questions with brief responses. She talked in a soft monotone voice. Her thoughts were clear and coherent. It is noted that toward the end of the interview she did have a little more emotionality in her voice. Her affect was blunted. She had a quiet mood. She did not appear to be significantly distressed. There was no indication of thought disorder. She does have some vague thoughts of self-harm without intention or plan. She is oriented and alert. It is noteworthy that she was quite clear about discharge planning issues. ASSESSMENT: I will continue the current diagnosis and treatment plan. We will continue psychotropic medications the same. The patient is making some slow progress. She seems to anticipate some difficulties just getting back to the community and accepting her current situation. She does seem to be making appropriate plans for herself. We will focus on stabilization and discharge planning. I anticipate the patient will be discharged possibly by mid week. ROSHAN / JENNIFER: [id number] /
[2021-01-02 12:44] LABS: Glucose,Whole Blood 190 mg/dL (75-99)
[2021-01-02 17:26] LABS: Glucose,Whole Blood 176 mg/dL (75-99)
[2021-01-02 20:10] LABS: Glucose,Whole Blood 171 mg/dL (75-99)
[2021-01-02] MEDS: QUEtiapine 50 MG TAB PO SCH (20:48)
[2021-01-02] MEDS: MIRTAZAPINE 45 MG TABLET PO SCH (20:48)
[2021-01-03] MEDS: LEVOTHYROXINE 100 MCG TAB PO SCH (05:55)
[2021-01-03] MEDS: HYDROcodone/APAP 5-325MG 1 EACH TAB PO PRN ×3 (05:55→19:21)
[2021-01-03 07:42] LABS: Glucose,Whole Blood 178 mg/dL (75-99)
[2021-01-03] MEDS: INSULIN DETEMIR (LEVEMIR) 100 UNIT/ML SYR SQ SCH ×2 (07:47→21:26)
[2021-01-03] MEDS: INSULIN ASPART (NovoLOG) 100 UNIT/ML VIAL SQ SCH ×8 (07:47→20:05)
[2021-01-03] MEDS: FOLIC ACID 1 MG TAB PO SCH (07:50)
[2021-01-03] MEDS: POTASSIUM CHLORIDE ER 20 MEQ TAB.ER PO SCH (07:50)
[2021-01-03] MEDS: ASPIRIN 81 MG PO SCH (07:50)
[2021-01-03] MEDS: TICAGRELOR 90 MG TAB PO SCH ×2 (07:50→21:23)
[2021-01-03] MEDS: SPIRONOLACTONE 25 MG TAB PO SCH (07:51)
[2021-01-03] MEDS: FUROSEMIDE 40 MG TAB PO SCH (07:51)
[2021-01-03] MEDS: FERROUS SULFATE 325 MG TAB PO SCH (07:51)
[2021-01-03] MEDS: ATORVASTATIN 80 MG TAB PO SCH (07:51)
[2021-01-03] MEDS: METOPROLOL TARTRATE 50 MG TAB PO SCH ×2 (07:51→21:23)
[2021-01-03] MEDS: SERTRALINE 50 MG TAB PO SCH (07:51)
[2021-01-03] MEDS: EZETIMIBE 10 MG TAB PO SCH (07:51)
[2021-01-03] MEDS: ISOSORBIDE MONONITRATE ER 60 MG TAB.ER.24H PO SCH ×2 (07:51→21:22)
[2021-01-03] MEDS: RANOLAZINE 500 MG TAB.ER.12H PO SCH ×2 (07:51→21:23)
[2021-01-03] MEDS: amLODIPine 2.5 MG TAB PO SCH (07:52)
[2021-01-03] MEDS: ARIPiprazole 5 MG TAB PO SCH (07:52)
[2021-01-03] MEDS: PANTOPRAZOLE 40 MG TABLET PO SCH ×2 (07:52→17:41)
[2021-01-03] MEDS: levETIRAcetam 500 MG TAB PO SCH ×2 (07:53→21:22)
[2021-01-03] MEDS: hydrOXYzine pamoate 25 MG CAP PO SCH ×3 (07:53→21:23)
[2021-01-03] MEDS: NYSTATIN 100,000 UNIT/GM POWD 15 GM TOPICAL SCH ×3 (07:53→21:37)
[2021-01-03] MEDS: LOPERAMIDE 2 MG CAP PO PRN (07:58)
[2021-01-03] MEDS ORDERED: SERTRALINE 50 MG TAB PO STA (11:30)
--- NOTE | 2021-01-03 11:36 | P.PN ---
Progress Note - Text Progress Note Date: 01/03/21 Interval History: Patient was seen wandering the hallways and was directable and agreeable to cristin tee with poem writer in the office. Patient appears to have mild improvement in her affect today. Once again she states that she is not feeling back to her baseline and claims that she still having thoughts of suicide. She claims that she doesn't feel comfortable leaving today and claims that "I could hurt myself if I leave". She states that her depression has slowly been getting better and was agreeable to have her medication increased. She claims that she only got 2 hours of sleep last night. She continues to claim that she'll be going to the halfway when she is discharged from the hospital. She claims that she has been trying to go to groups and work on her coping skills. She appears to have mild improvement in her hygiene and grooming today. At this time patient denies any homical ideations, intent or plan. Patient denies any auditory, visual hallucinations and denies any paranoia or delusions. Patient denies any side effects from the medications and has been compliant with meds. Mental Status Exam: General Appearance: Patient appears to be overweight, older than stated age is alert, directable, and attempts to cooperate. Using a walker. Patient appears to have mildly improving hygiene and grooming. Behavior: Patient is seated without any agitated behavior. Speech: Patient's speech is fluent and nonpressured. Mood/Affect: Patient reports their mood is depressed, improving mildly, affect is congruent and constricted. Suicidality/Homicidality: Patient denies having any homicidal ideation intent or plan. She admits to ongoing suicidal thoughts however no intent or plan. Perceptions: Patient denies any visual hallucinations and denies any auditory hallucinations Though content/process: Logical and goal oriented. [place]. Memory and concentration: AOX3, grossly intact for the purposes of this session. Judgment and insight: improving mildly Assessment Major depressive disorder, without psychotic features Anxiety disorder unspecified Plan: -Patient continues to meet criteria for inpatient psychiatric admission for symptom stabilization and safety. Patient has signed [adult voluntary form and] [medication consent] and was placed in patient's chart. -Medications: increase Zoloft to 200 mg daily for mood/anxiety. Continue with Abilify 5 mg daily for mood adjunct. Increased Seroquel to 200 mg daily at bedtime and continue with Remeron 45 mg daily at bedtime. Vistaril 25mg tid for anxiety. -When necessary Ativan and Haldol for agitation/aggression. -NRT - not needed as patient does not smoke -SW on board for discharge planning. Encouraged the patient to participate in milieu. youth accommodation support worker to look into discharge planning as patient would like to be discharged to her ex-'s house. liekly discharge tomorrow to halfway
[2021-01-03 12:57] LABS: Glucose,Whole Blood 113 mg/dL (75-99)
[2021-01-03 17:41] LABS: Glucose,Whole Blood 120 mg/dL (75-99)
[2021-01-03 19:47] LABS: Glucose,Whole Blood 169 mg/dL (75-99)
[2021-01-03] MEDS: MIRTAZAPINE 45 MG TABLET PO SCH (21:23)
[2021-01-03] MEDS: QUEtiapine 200 MG TAB PO SCH (21:23)
[2021-01-04] MEDS: LEVOTHYROXINE 100 MCG TAB PO SCH (06:33)
[2021-01-04 07:01] VITALS: RESP 16; TEMP 97.7
[2021-01-04 07:50] LABS: Glucose,Whole Blood 90 mg/dL (75-99)
[2021-01-04] MEDS: INSULIN ASPART (NovoLOG) 100 UNIT/ML VIAL SQ SCH ×8 (07:56→20:13)
[2021-01-04] MEDS: levETIRAcetam 500 MG TAB PO SCH ×2 (08:03→20:14)
[2021-01-04] MEDS: EZETIMIBE 10 MG TAB PO SCH (08:03)
[2021-01-04] MEDS: PANTOPRAZOLE 40 MG TABLET PO SCH ×2 (08:03→17:45)
[2021-01-04] MEDS: TICAGRELOR 90 MG TAB PO SCH ×2 (08:03→20:14)
[2021-01-04] MEDS: RANOLAZINE 500 MG TAB.ER.12H PO SCH ×2 (08:03→20:15)
[2021-01-04] MEDS: POTASSIUM CHLORIDE ER 20 MEQ TAB.ER PO SCH (08:03)
[2021-01-04] MEDS: ASPIRIN 81 MG PO SCH (08:04)
[2021-01-04] MEDS: SPIRONOLACTONE 25 MG TAB PO SCH (08:06)
[2021-01-04] MEDS: ISOSORBIDE MONONITRATE ER 60 MG TAB.ER.24H PO SCH ×2 (08:06→20:14)
[2021-01-04] MEDS: FERROUS SULFATE 325 MG TAB PO SCH (08:06)
[2021-01-04] MEDS: ATORVASTATIN 80 MG TAB PO SCH (08:07)
[2021-01-04] MEDS: hydrOXYzine pamoate 25 MG CAP PO SCH ×3 (08:07→23:12)
[2021-01-04] MEDS: SERTRALINE 100 MG TAB PO SCH (08:07)
[2021-01-04] MEDS: NYSTATIN 100,000 UNIT/GM POWD 15 GM TOPICAL SCH ×3 (08:08→20:22)
[2021-01-04] MEDS: METOPROLOL TARTRATE 50 MG TAB PO SCH ×2 (08:08→20:21)
[2021-01-04] MEDS: FUROSEMIDE 40 MG TAB PO SCH (08:10)
[2021-01-04] MEDS: amLODIPine 2.5 MG TAB PO SCH (08:10)
[2021-01-04] MEDS: ARIPiprazole 5 MG TAB PO SCH (08:10)
[2021-01-04] MEDS: FOLIC ACID 1 MG TAB PO SCH (08:12)
[2021-01-04] MEDS: INSULIN DETEMIR (LEVEMIR) 100 UNIT/ML SYR SQ SCH ×2 (08:13→20:14)
[2021-01-04] MEDS: HYDROcodone/APAP 5-325MG 1 EACH TAB PO PRN ×3 (08:17→20:18)
[2021-01-04] MEDS: LITHIUM CARBONATE 150 MG CAP PO SCH ×2 (10:02→20:15)
--- NOTE | 2021-01-04 11:30 | P.PN ---
Progress Note - Text Progress Note Date: 01/04/21 Interval History: Patient was seen wandering the hallways and was directable and agreeable to sp nay with rewriter in the office. Patient appears to have mild improvement in her affect today however continues to state that she is feeling depressed and feels "useless". She needs to state that people have been trying to take advantage of her. She continues to state that she was feeling suicidal today and when asked if she had a plan she states that "I could just inject myself with insulin if I leave here". She continues to state that she does not feel safe leaving the hospital and fears for her life. She states that she does not have any reason to live at this time and could not give a reason why she wouldn't hurt herself. She claims that she only got 2 hours of sleep last night. She continues to state that she is agreeable to go to the assisted upon discharge however was asking several questions about it. She has not been going to groups and mainly staying in her room. She appears to have mild improvement in her hygiene and grooming today. Patient denies any auditory, visual hallucinations and denies any paranoia or delusions. Patient denies any side effects from the medications and has been compliant with meds. Mental Status Exam: General Appearance: Patient appears to be overweight, older than stated age is alert, directable, and attempts to cooperate. Using a walker. Patient appears to have mildly improving hygiene and grooming. Behavior: Patient is seated without any agitated behavior. Constricted. Speech: Patient's speech is fluent and nonpressured. Soft tone Mood/Affect: Patient reports their mood is depressed, improving mildly, affect is congruent and constricted. Suicidality/Homicidality: Patient denies having any homicidal ideation intent or plan. She admits to ongoing suicidal thoughts however no intent or plan while in the hospital but did state that she could overdose on her insulin if she leaves the hospital. Perceptions: Patient denies any visual hallucinations and denies any auditory hallucinations Though content/process: Logical and goal oriented. [place]. Poverty of content. Memory and concentration: AOX3, grossly intact for the purposes of this session. Judgment and insight: improving mildly Assessment Major depressive disorder, without psychotic features Anxiety disorder unspecified Plan: -Patient continues to meet criteria for inpatient psychiatric admission for symptom stabilization and safety. Patient has signed [adult voluntary form and] [medication consent] and was placed in patient's chart. -Medications: Zoloft to 200 mg daily for mood/anxiety. Discontinued Abilify and replaced with lithium 150 mg twice a day for mood adjunct/suicidal thoughts. Seroquel to 200 mg daily at bedtime and continue with Remeron 45 mg daily at bedtime. Vistaril 25mg tid for anxiety. I added melatonin 5 mg daily at bedti me for insomnia. -When necessary Ativan and Haldol for agitation/aggression. -NRT - not needed as patient does not smoke -SW on board for discharge planning. Encouraged the patient to participate in milieu. Patient was meant to be discharged today however continues to endorse suicidal thoughts and feeling unsafe to leave the hospital. The plan has been to discharge her to a assisted until she can move in again with her ex-. insulation worker interior surface, UR nurse and rewriter spoke with patient in her room later on this morning to discuss further discharge planning and address any safety concerns and patient appeared to be more future oriented and agreeable to the plan. likely discharge tomorrow.
[2021-01-04 12:51] LABS: Glucose,Whole Blood 143 mg/dL (75-99)
[2021-01-04 17:41] LABS: Glucose,Whole Blood 376 mg/dL (75-99)
[2021-01-04 17:41] LABS: Glucose,Whole Blood 211 mg/dL (75-99)
[2021-01-04 20:07] LABS: Glucose,Whole Blood 159 mg/dL (75-99)
[2021-01-04] MEDS: MIRTAZAPINE 45 MG TABLET PO SCH (20:15)
[2021-01-04] MEDS: QUEtiapine 200 MG TAB PO SCH (20:15)
[2021-01-05] MEDS: LEVOTHYROXINE 100 MCG TAB PO SCH (06:03)
[2021-01-05] MEDS: LOPERAMIDE 2 MG CAP PO PRN (06:12)
[2021-01-05] MEDS: HYDROcodone/APAP 5-325MG 1 EACH TAB PO PRN ×2 (06:12→12:56)
[2021-01-05 06:57] LABS: Appearance,Urine Turbid (Clear); Bacteria,Urine Occasional /hpf; Bilirubin,Urine Negative (Negative); Blood,Urine Small (Negative); Color,Urine Yellow; Glucose,Urine (UA) Negative (Negative); Ketones,Urine Negative (Negative); Leukocyte Esterase,Urine Large (Negative); Mucus,Urine Rare /hpf; Nitrite,Urine Negative (Negative); Protein,Urine Trace (Negative); RBC,Urine 2 /hpf (0-5); Specific Gravity,Urine 1.016 (1.001-1.035); Squamous Epithelial Cell,Urine 3 /hpf (0-4); Urobilinogen,Urine <2.0 mg/dL (<2.0); WBC,Urine >182 /hpf (0-5)
[2021-01-05 07:56] LABS: Glucose,Whole Blood 257 mg/dL (75-99)
[2021-01-05] MEDS: INSULIN ASPART (NovoLOG) 100 UNIT/ML VIAL SQ SCH ×4 (07:58→12:58)
[2021-01-05] MEDS: INSULIN DETEMIR (LEVEMIR) 100 UNIT/ML SYR SQ SCH (07:59)
[2021-01-05] MEDS: RANOLAZINE 500 MG TAB.ER.12H PO SCH (08:44)
[2021-01-05] MEDS: FOLIC ACID 1 MG TAB PO SCH (08:45)
[2021-01-05] MEDS: FERROUS SULFATE 325 MG TAB PO SCH (08:45)
[2021-01-05] MEDS: levETIRAcetam 500 MG TAB PO SCH (08:45)
[2021-01-05] MEDS: ATORVASTATIN 80 MG TAB PO SCH (08:45)
[2021-01-05] MEDS: hydrOXYzine pamoate 25 MG CAP PO SCH (08:45)
[2021-01-05] MEDS: TICAGRELOR 90 MG TAB PO SCH (08:45)
[2021-01-05] MEDS: POTASSIUM CHLORIDE ER 20 MEQ TAB.ER PO SCH (08:45)
[2021-01-05] MEDS: ASPIRIN 81 MG PO SCH (08:45)
[2021-01-05] MEDS: FUROSEMIDE 40 MG TAB PO SCH (08:45)
[2021-01-05] MEDS: EZETIMIBE 10 MG TAB PO SCH (08:46)
[2021-01-05] MEDS: LITHIUM CARBONATE 150 MG CAP PO SCH (08:50)
[2021-01-05] MEDS: SPIRONOLACTONE 25 MG TAB PO SCH (08:50)
[2021-01-05] MEDS: SERTRALINE 100 MG TAB PO SCH (08:50)
[2021-01-05] MEDS: NYSTATIN 100,000 UNIT/GM POWD 15 GM TOPICAL SCH (08:51)
[2021-01-05] MEDS: PANTOPRAZOLE 40 MG TABLET PO SCH (08:51)
[2021-01-05] MEDS: amLODIPine 2.5 MG TAB PO SCH (09:01)
[2021-01-05] MEDS: ISOSORBIDE MONONITRATE ER 60 MG TAB.ER.24H PO SCH (09:01)
[2021-01-05] MEDS: METOPROLOL TARTRATE 50 MG TAB PO SCH (09:01)
[2021-01-05 09:11] VITALS: BP 133/62; PULSE 89
--- NOTE | 2021-01-05 10:25 | P.DS ---
Providers Date of admission: 12/27/20 18:24 Expected date of discharge: 01/05/21 Attending physician: Kali Barrientos MD Consults: 12/27/20 19:52 Consult Physician Routine Consulting Provider: Jerson Aguilar Consult Reason/Comments: H&P and medical Do you want consulting provider notified?: Yes Primary care physician: Jerson Aguilar - Discharge Diagnosis(es) (1) Major depressive disorder without psychotic features Current Visit: Yes Status: Acute Priority: High (2) Anxiety disorder Current Visit: Yes Status: Acute Priority: Medium Hospital Course: Admission HPI: Admission note was completed by script writer "Patient is a 55-year-old female currently on disability and SSI who lives with her daughter and is . Patient presented to the hospital yesterday for complaints of suicidal thoughts. According to ER report patient was recently admitted to the hospital and was discharged to her daughter's house. ER report also stated the patient got into an argument with her daughter at home and daughter apparently kicked her out and patient was fairly upset with this and became suicidal and wanted to walk into traffic. Her UDS is positive for opiates. Patient was seen today and agreeable to speak to read in the office. She appeared to have poor hygiene and grooming. She claims that she was feeling depressed and claiming that "I didn't want to live anymore". She states that her daughter was arguing with her and calling her names. She states that she believes that her daughters after her father's inheritance who recently and is supposedly worth "millions". She states that she walked out of the house and went to a friend's house and claims that she didn't know what to do. She states that she is "tired of people using me". She states that she called 911 because she was feeling suicidal. She claims that she wants to go up [place] to live with her ex-. She states that she has been taking her medications regularly. She currently claims that she does have depression and anxiety. She denies any problems with her appetite or sleep at this time. Patient denies any homicidal ideations intent or plan. She did claim that she h as thoughts of suicide however no intent or plan. At this time patient denies any auditory or visual hallucinations. Patient denies any flight of ideas racing thoughts and increased in goal directed behavior. Patient admits to using cigarettes in the past or has now quit. She denies using any other recreational drug use." Hospital course: Upon admission to the unit patient was initially depressed and suicidal. Patient was however directable and agreeable to commence treatment and signed adult voluntary form. Patient got along well with other patients on the unit and followed unit protocol. Patient was compliant with the medications and denied any side effects throughout hospital course. Patient was started on Zoloft and titrated to dose of 200 mg daily for mood/anxiety. Patient was discontinued off of her Abilify and replaced with lithium 150 mg twice a day for mood adjunct/suicidal thoughts. Patient was also started on Seroquel and titrated up to dose of 200 mg daily at bedtime along with Remeron 45 mg daily at bedtime for insomnia/mood. Patient was restarted back on her home dose of Vistaril 25 mg 3 times a day for anxiety. Patient spoke of her stressors and engaged in therapy both group and individual. Patient was also seen by medical team for history and physical exam. Patient did have an episode of hypotension and was seen by her pcp on the unit and have her bp meds adjusted. Patient also had a foul odor along with complaints of frequent urination the day of discharge, ordered urine analysis and will ask pcp hospitalist to return to examine patient to give further recommendations on treatment. Throughout the course of the hospitalization patient gradually improved with regards to mood, anxiety, suicidal thoughts, sleep and became more future oriented with improved insight and judgment. On the day of discharge patient denied any suicidal or homicidal ideations intent or plan denied any auditory or visual hallucinations. Patient endorsed wanting to live for her health and her future. The patient denied any access to guns or weapons. Patient denied any paranoia and did not endorse any delusions. Patient does not have a significant history of substance abuse however was counseled on abstaining from all substances including alcohol and marijuana. Patient was also counseled on the medications and need for regular compliance and was encouraged to follow-up with their outpatient appointment for mental health and also for primary care. Due to patient not having any place to return back to her knee friends or family to stay with, patient will be [facility] to [facility] today. Mental status exam: General Appearance: Patient appears to be overweight, older than stated age is alert, pleasant, and cooperative. Patient is in no acute distress and has improved hygiene and grooming Behavior: Patient is calmly seated without any agitated behavior. Speech: Patient's speech is fluent and nonpressured. Mood/Affect: Patient reports their mood is "better", affect is congruent Suicidality/Homicidality: Patient denies having any suicidal or homicidal ideation intent or plan. Perceptions: Patient denies any auditory or visual hallucinations. Though content/process: There is no evidence of any delusional thought content and thought process is linear and goal-directed. Memory and concentration: AOX3, grossly intact for the purposes of this session. Can spell "WORLD" backwards correctly. Judgment and insight: chronically poor, however has improved with guarded prognosis Impression: Major depressive disorder, without psychotic features Anxiety disorder unspecified Plan: -Continue with discharge today as patient has improved and stabilized psychiatrically and is not currently an imminent threat to herself and/or others. -Continue medications: Zoloft 200 mg daily for mood/anxiety, lithium 150 mg twice a day for mood adjunct/suicidal thoughts, Seroquel 200 mg daily at bedtime for mood stabilization/insomnia, Remeron 45 mg daily at bedtime for insomnia/mood, Vistaril 25 mg 3 times a day for anxiety. -Patient was counseled on the need for medication compliance and appropriate follow-up at mental health and also primary care for medical issues. Patient verbalized understanding and agreed. -Social work to help patient with discharge today to the [facility]. Social work also to arrange for patients follow up appointments with [facility] for psychiatric care along with follow up with primary care provider. -Patient counseled on abstaining from recreational drugs and marijuana and alcohol. Was informed/educated on the adverse effects on their physical and mental health. Patient verbally agreed and understood. -Patient was instructed to return to the hospital or seek immediate medical care if their psychiatric or medical symptoms do worsen or reoccur. 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 ID Edwardo Scales 01/05/21 07:54 Urine Color Yellow 01/05/21 Unknown Urine Appearance Turbid (Clear) H 01/05/21 Unknown Urine pH 6.0 (5.0-8.0) 01/05/21 Unknown Ur Specific [place] 1.016 (1.001-1.035) 01/05/21 Unknown Urine Protein Trace (Negative) H 01/05/21 Unknown Urine Glucose (UA) Negative (Negative) 01/05/21 Unknown Urine Ketones Negative (Negative) 01/05/21 Unknown Urine Blood Small (Negative) H 01/05/21 Unknown Urine Nitrite Negative (Negative) 01/05/21 Unknown Urine Bilirubin Negative (Negative) 01/05/21 Unknown Urine Urobilinogen <2.0 mg/dL (<2.0) 01/05/21 Unknown Ur Leukocyte Esterase Large (Negative) H 01/05/21 Unknown Urine RBC 2 /hpf (0-5) 01/05/21 Unknown Urine WBC >182 /hpf (0-5) H 01/05/21 Unknown Urine WBC Clumps Many /hpf (None) H 01/05/21 Unknown Ur Squamous Epith Cells 3 /hpf (0-4) 01/05/21 Unknown Urine Bacteria Occasional /hpf (None) H 01/05/21 Unknown Urine Mucus Rare /hpf (None) H 01/05/21 Unknown Urine Opiates Screen Detected (NotDetected) H 12/26/20 23:01 Ur Oxycodone Screen Not Detected (NotDetected) 12/26/20 23:01 Urine Methadone Screen Not Detected (NotDetected) 12/26/20 23:01 Ur Propoxyphene Screen Not Detected (NotDetected) 12/26/20 23:01 Ur Barbiturates Screen Not Detected (NotDetected) 12/26/20 23:01 U Tricyclic Antidepress Not Detected (NotDetected) 12/26/20 23:01 Ur Phencyclidine Scrn Not Detected (NotDetected) 12/26/20 23:01 Ur Amphetamines Screen Not Detected (NotDetected) 12/26/20 23:01 U Methamphetamines Scrn Not Detected (NotDetected) 12/26/20 23:01 U Benzodiazepines Scrn Not Detected (NotDetected) 12/26/20 23:01 Urine Cocaine Screen Not Detected (NotDetected) 06/13/21 23:01 U Marijuana (THC) Screen Not Detected (NotDetected) 12/26/20 23:01 Coronavirus (PCR) Not Detected (Not Detectd) 12/27/20 06:45 Vital Signs Temp 97.7 F 01/04/21 06:30 Pulse 89 01/05/21 09:00 Resp 16 01/05/21 09:00 BP 133/62 01/05/21 09:00 Pulse Ox 98 01/03/21 05:57 Patient Condition at Discharge: Stable Plan - Discharge Summary Discharge Rx Participant: No New Discharge Prescriptions: New Cyclobenzaprine [Flexeril] 10 mg PO TID PRN 30 Days tab PRN Reason: Muscle Spasm Ferrous Sulfate [Iron (65 MG Elemental)] 325 mg PO DAILY 30 Days tab Atorvastatin [Lipitor] 80 mg PO DAILY 30 Days tab Pantoprazole [Protonix] 40 mg PO AC-BID 30 Days tablet. QUEtiapine [SEROquel] 200 mg PO HS 30 Days tab Sertraline [Zoloft] 200 mg PO DAILY 30 Days tab Folic Acid 1 mg PO DAILY 30 Days tab Hundred Carbonate 150 mg PO BID 30 Days cap HYDROcodone/APAP 5-325MG [[place] 5-325] 1 each PO Q6HR PRN 3 Days #12 tab PRN Reason: Pain Continue Nystatin 100,000 Unit/gm Powd [Mycostatin Powder] 1 applic TOPICAL TID #1 bottle Aspirin 81 mg PO DAILY 30 Days chew Isosorbide Mononitrate ER [Imdur] 60 mg PO BID 30 Days tab.er.24h Loperamide HCl [Imodium A-D] 2 - 4 mg PO QID PRN 30 Days tab PRN Reason: Diarrhea Potassium Chloride ER [K-Dur 20] 20 meq PO DAILY 30 Days tab Metoprolol Tartrate [Lopressor] 50 mg PO BID 60 Days #30 tab Nitroglycerin Sl Tabs [Nitrostat] 0.4 mg SUBLINGUAL Q5M PRN 2 Days tab PRN Reason: Chest Pain INSULIN ASPART (NovoLOG) [NovoLOG (formulary)] 7 unit SQ ACHS 30 Days vial Levothyroxine Sodium [Synthroid] 200 mcg PO DAILY 30 Days tab hydrOXYzine pamoate [Vistaril] 25 mg PO TID 30 Days cap lisinopriL [Zestril] 2.5 mg PO DAILY 30 Days tab Spironolactone [Aldactone] 25 mg PO DAILY 30 Days tab Ticagrelor [Brilinta] 90 mg PO BID 30 Days tab levETIRAcetam [Keppra] 500 mg PO Q12H 30 Days tab Insulin Glargine,Hum.rec.anlog [Lantus Solostar] 28 unit SQ BID 30 Days pen Furosemide [Lasix] 40 mg PO DAILY 30 Days tab amLODIPine [Norvasc] 5 mg PO DAILY 30 Days #90 tab Ranolazine [Ranexa] 1,000 mg PO BID 30 Days tab Mirtazapine [Remeron] 45 mg PO HS 30 Days tab Ezetimibe [Zetia] 10 mg PO DAILY 30 Days #30 tab Discontinued Sertraline [Zoloft] 50 mg PO DAILY QUEtiapine [SEROquel] 50 mg PO HS Cyclobenzaprine [Flexeril] 10 mg PO TID PRN PRN Reason: Muscle Spasm ARIPiprazole [Abilify] 5 mg PO DAILY Folic Acid 1 mg PO DAILY Ferrous Sulfate [Iron (65 MG Elemental)] 325 mg PO DAILY INSULIN ASPART (NovoLOG) [NovoLOG (formulary)] See Protocol SQ ACHS HYDROcodone/APAP 10-325MG [[place] 10-325] 1 tab PO Q6H PRN PRN Reason: Pain Pantoprazole [Protonix] 40 mg PO AC-BID tablet. Atorvastatin [Lipitor] 80 mg PO DAILY tab Discharge Medication List Nystatin 100,000 Unit/gm Powd [Mycostatin Powder] 1 applic TOPICAL TID #1 bottle 12/26/20 [Rx] Aspirin 81 mg PO DAILY 30 Days chew 01/05/21 [Rx] Atorvastatin [Lipitor] 80 mg PO DAILY 30 Days tab 01/05/21 [Rx] Cyclobenzaprine [Flexeril] 10 mg PO TID PRN 30 Days tab 01/05/21 [Rx] Ezetimibe [Zetia] 10 mg PO DAILY 30 Days #30 tab 01/05/21 [Rx] Ferrous Sulfate [Iron (65 MG Elemental)] 325 mg PO DAILY 30 Days tab 01/05/21 [Rx] Folic Acid 1 mg PO DAILY 30 Days tab 01/05/21 [Rx] Furosemide [Lasix] 40 mg PO DAILY 30 Days tab 01/05/21 [Rx] HYDROcodone/APAP 5-325MG [[place] 5-325] 1 each PO Q6HR PRN 3 Days #12 tab 01/05/21 [Rx] INSULIN ASPART (NovoLOG) [NovoLOG (formulary)] 7 unit SQ ACHS 30 Days vial 01/05/21 [Rx] Insulin Glargine,Hum.rec.anlog [Lantus Solostar] 28 unit SQ BID 30 Days pen 01/05/21 [Rx] Isosorbide Mononitrate ER [Imdur] 60 mg PO BID 30 Days tab.er.24h 01/05/21 [Rx] Levothyroxine Sodium [Synthroid] 200 mcg PO DAILY 30 Days tab 01/05/21 [Rx] Hundred Carbonate 150 mg PO BID 30 Days cap 01/05/21 [Rx] Loperamide HCl [Imodium A-D] 2 - 4 mg PO QID PRN 30 Days tab 01/05/21 [Rx] Metoprolol Tartrate [Lopressor] 50 mg PO BID 60 Days #30 tab 01/05/21 [Rx] Mirtazapine [Remeron] 45 mg PO HS 30 Days tab 01/05/21 [Rx] Nitroglycerin Sl Tabs [Nitrostat] 0.4 mg SUBLINGUAL Q5M PRN 2 Days tab 01/05/21 [Rx] Pantoprazole [Protonix] 40 mg PO AC-BID 30 Days tablet.dr 01/05/21 [Rx] Potassium Chloride ER [K-Dur 20] 20 meq PO DAILY 30 Days tab 01/05/21 [Rx] QUEtiapine [SEROquel] 200 mg PO HS 30 Days tab 01/05/21 [Rx] Ranolazine [Ranexa] 1,000 mg PO BID 30 Days tab 01/05/21 [Rx] Sertraline [Zoloft] 200 mg PO DAILY 30 Days tab 01/05/21 [Rx] Spironolactone [Aldactone] 25 mg PO DAILY 30 Days tab 01/05/21 [Rx] Ticagrelor [Brilinta] 90 mg PO BID 30 Days tab 01/05/21 [Rx] amLODIPine [Norvasc] 5 mg PO DAILY 30 Days #90 tab 01/05/21 [Rx] hydrOXYzine pamoate [Vistaril] 25 mg PO TID 30 Days cap 01/05/21 [Rx] levETIRAcetam [Keppra] 500 mg PO Q12H 30 Days tab 01/05/21 [Rx] lisinopriL [Zestril] 2.5 mg PO DAILY 30 Days tab 01/05/21 [Rx] Follow up Appointment(s)/Referral(s): Jerson Aguilar MD [Primary Care Provider] - 1-2 days Activity/Diet/Wound Care/Special Instructions: Activity and diet as tolerated. Avoid the use of street drugs and alcohol. Take all medications as prescribed. When you are in need of refills on your medications please contact your medical provider and/or outpatient psychiatrist to have this done. Please go to scheduled outpatient appointment for aftercare treatment. If symptoms return or become worse, call the crisis line at and/or go to the nearest emergency room for evaluation. Discharge Disposition: OTHER INSTITUTION NOT DEFINED
[2021-01-05] MEDS ORDERED: FLUCONAZOLE 100 MG TAB PO SCH (12:00)
--- NOTE | 2021-01-05 12:45 | P.PN ---
Subjective Progress Note Date: 01/05/21 Aminta Sheikh, he is a 55-year-old female who presented to [facility] emergency room due to depression and suicidal ideation, patient stated that she had an argument with her stepdaughter with whom she is currently residing, she was told that she had to leave, she had nowhere to go and she was planning on taking her walker and walking out into traffic, however she decided to come to emergency room instead she was evaluated in the emergency room and was admitted to the psychiatry unit for further evaluation and treatment. Patient has a known history of psychiatric illness and is maintained on multiple psychiatric medications in a complex regimen that was started [place] per patient, her regimen included Zoloft, Abilify, Seroquel, Remeron, and Vistaril. Patient also has a complex medical history including history of hypertension, hyperlipidemia, hypothyroidism, history of seizure disorder, history of insulin- dependent diabetes mellitus, and history of coronary artery disease with history of coronary artery bypass graft surgery and history of multiple angioplasty and stent placement. Recently patient has been presenting to emergency room repeatedly once or twice weekly with complaints of chest pain she was evaluated by cardiology multiple times and no further intervention was recommended for her at this time. 12/30/2020 I received a call from the psychiatry unit nurse in regard to patient's Aminta Sheikh, patient blood pressure this morning was low at 94/53 and 87/52 I reviewed all of patient blood pressure readings since admission and all of them are on the low side and some of them are significantly low, I reviewed her medications, and at this time I am going to decrease amlodipine from 5 mg daily to 2.5 mg daily, will continue to follow blood pressure readings very closely. On 01/05/2021 plans to DC patient home today per psychiatry team. Concerns of possible yeast infection. But due to interaction with psychiatry medication including lithium we'll hold off on prescribing Diflucan. Discussed with nursing team that patient to follow-up in office for pelvic exam and culture. Patient also has right lower leg lump. Patient reports that she hit area on the vehicle door. Area is raised with bruising and swelling. Area is localized. Patient reports that it does appear improving. Patient reports that she has no issues walking. At this time recommend follow-up outpatient with PCP for further management. This was discussed with nursing team. Continue current medication blood pressure this a.m. 133/62. Patient will need close follow up with PCP for for their management of chronic conditions Objective - Vital Signs Vital signs: Vital Signs Temp 97.7 F 01/04/21 06:30 Pulse 89 01/05/21 09:00 Resp 16 01/05/21 09:00 BP 133/62 01/05/21 09:00 Pulse Ox 98 01/03/21 05:57 - Exam In general patient is alert and oriented x 3 in no distress HEENT head normocephalic and atraumatic Neck is supple no JVD no goiter no lymphadenopathy no carotid bruit Chest examination is clear to auscultation no crackles no wheezing Cardiac exam reveals regular heart sounds S1 and S2 no gallops no murmurs Abdomen is soft nontender no organomegaly with normal bowel sounds Extremity exam reveals no edema no cyanosis or clubbing. Right lower extremity 3 and she area of raised edema. Bruising noted Neurological examination reveals no gross focal deficits - Labs Labs: Abnormal Lab Results - Last 24 Hours (Table) 01/04/21 01/04/21 01/04/21 Range/Units 12:50 17:38 17:39 POC Glucose (mg/dL) 143 H 376 H 211 H (75-99) mg/dL Urine Appearance (Clear) Urine Protein (Negative) Urine Blood (Negative) Ur Leukocyte Esterase (Negative) Urine WBC (0-5) /hpf Urine WBC Clumps (None) /hpf Urine Bacteria (None) /hpf Urine Mucus (None) /hpf 01/04/21 01/05/21 01/05/21 Range/Units 20:05 07:54 Unknown POC Glucose (mg/dL) 159 H 257 H (75-99) mg/dL Urine Appearance Turbid H (Clear) Urine Protein Trace H (Negative) Urine Blood Small H (Negative) Ur Leukocyte Esterase Large H (Negative) Urine WBC >182 H (0-5) /hpf Urine WBC Clumps Many H (None) /hpf Urine Bacteria Occasional H (None) /hpf Urine Mucus Rare H (None) /hpf Microbiology - Last 24 Hours (Table) 01/05/21 Unknown Urine Culture - Preliminary Urine,Voided Assessment and Plan Plan: Depression with anxiety disorder and suicidal ideation Social issues related to argument with stepdaughter, patient was residing with her, which may not be amenable to her after discharge, patient states that her p ganesh is to return to her ex- up [place], social media marketing specialist involvement may prove to be very valuable at this time. Most likely patient to repeated visits to emergency room is related to lack of residence. Underlying history of advanced coronary artery disease stable at this time patient was evaluated repeatedly by cardiology in the last 2 months no intervention is necessary at this time Underlying history of insulin-dependent diabetes mellitus Underlying history of hypertension Underlying history of hyperlipidemia Underlying history of hypothyroidism Underlying history of seizure disorder maintained on Keppra Possible yeast infection. But due to patient's psych medication regime and potential interaction with Diflucan recommend follow-up outpatient tomorrow 01/06/2021 in PCP office for pelvic exam and culture Hematoma to right lower extremity. Per patient this does appear improving recommend follow-up with PCP for further management At this time patient is admitted to psychiatry unit Will follow closely during this admission for medical management Home medications reviewed and reordered Psychiatric medications regimen are being adjusted by primary psychiatry team. adult day care worker involvement would be very valuable to help with outpatient residence issue
[2021-01-05 12:52] LABS: Glucose,Whole Blood 98 mg/dL (75-99)
== END 2021-01-05 14:10 | disposition home or self-care (01) | DRG 881 ==
LOC: EC 16:38 → 3MHU 12-27 18:24
PROVIDERS: ADMIT Psychiatry & Neurology Psychiatry; ATTEND Psychiatry & Neurology Psychiatry
DX: F32.9 Major depressive disorder, single episode, unspecified (principal); I69.354 Hemiplegia and hemiparesis following cerebral infarction affecting left non-dominant side; R45.851 Suicidal ideations; E03.9 Hypothyroidism, unspecified; E11.40 Type 2 diabetes mellitus with diabetic neuropathy, unspecified; Z79.4 Long term (current) use of insulin; E78.5 Hyperlipidemia, unspecified; F41.9 Anxiety disorder, unspecified; G35 Multiple sclerosis; G40.909 Epilepsy, unspecified, not intractable, without status epilepticus; G47.00 Insomnia, unspecified; I10 Essential (primary) hypertension; I25.10 Atherosclerotic heart disease of native coronary artery without angina pectoris; I25.2 Old myocardial infarction; J44.9 Chronic obstructive pulmonary disease, unspecified; K57.90 Diverticulosis of intestine, part unspecified, without perforation or abscess without bleeding; Z59.0 Homelessness; M54.9 Dorsalgia, unspecified; G89.29 Other chronic pain; Z20.822 Contact with and (suspected) exposure to COVID-19; Z79.02 Long term (current) use of antithrombotics/antiplatelets; Z79.82 Long term (current) use of aspirin; Z79.890 Hormone replacement therapy; Z79.899 Other long term (current) drug therapy; Z80.1 Family history of malignant neoplasm of trachea, bronchus and lung; Z82.49 Family history of ischemic heart disease and other diseases of the circulatory system; Z87.891 Personal history of nicotine dependence; Z90.710 Acquired absence of both cervix and uterus; Z95.1 Presence of aortocoronary bypass graft; Z95.2 Presence of prosthetic heart valve; Z95.5 Presence of coronary angioplasty implant and graft; Z87.01 Personal history of pneumonia (recurrent)
CPT/HCPCS: 36415; 80306; 81001; 82075; 87086; 87635; 99285

== ENCOUNTER 2021-01-06 06:30 | Inpatient (IN) | payer MEDICARE, OTHER ==
[2021-01-06] MEDS ORDERED: ASPIRIN 81 MG PO STA (06:42)
[2021-01-06] MEDS ORDERED: KETOROLAC 15 MG/ML 1 ML VIAL IVP STA (06:57)
--- NOTE | 2021-01-06 06:57 | ED ---
Chest Pain HPI - General Chief Complaint: Chest Pain Stated Complaint: Chest Pain Time Seen by Provider: 01/06/21 06:42 Source: patient, RN notes reviewed Mode of arrival: ambulatory Limitations: no limitations - History of Present Illness Initial Comments: This a 55-year-old female presents emergency Department chief complaint of chest discomfort. Patient states started a few hours ago. Patient states it just feels like light pressure. She states she took multiple mitral did not change her symptoms. Denies any significant shortness of breath she does have a history of COPD was a former smoker states she does not currently smoke. Patient does have prior cardiac disease in which she's had multiple recent hospitalizations states that she seen a electric meter repairer in the hospital. Patient denies any nausea vomiting diarrhea constipation. Patient states pain is nonradiating. No headache no dizziness. - Related Data Home Medications Medication Instructions Recorded Confirmed HYDROcodone/APAP 5-325MG [[place] 1 tab PO Q6HR PRN 01/06/21 01/06/21 5-325] Previous Rx's Medication Instructions Recorded Nystatin 100,000 Unit/gm Powd 1 applic TOPICAL TID #1 bottle 12/26/20 [Mycostatin Powder] Aspirin 81 mg PO DAILY 30 Days chew 01/05/21 Atorvastatin [Lipitor] 80 mg PO DAILY 30 Days tab 01/05/21 Cyclobenzaprine [Flexeril] 10 mg PO TID PRN 30 Days tab 01/05/21 Ezetimibe [Zetia] 10 mg PO DAILY 30 Days #30 tab 01/05/21 Ferrous Sulfate [Iron (65 MG 325 mg PO DAILY 30 Days tab 01/05/21 Elemental)] Folic Acid 1 mg PO DAILY 30 Days tab 01/05/21 Furosemide [Lasix] 40 mg PO DAILY 30 Days tab 01/05/21 INSULIN ASPART (NovoLOG) [NovoLOG 7 unit SQ ACHS 30 Days vial 01/05/21 (formulary)] Insulin Glargine,Hum.rec.anlog 28 unit SQ BID 30 Days pen 01/05/21 [Lantus Solostar] Isosorbide Mononitrate ER [Imdur] 60 mg PO BID 30 Days tab.er.24h 01/05/21 Levothyroxine Sodium [Synthroid] 200 mcg PO DAILY 30 Days tab 01/05/21 Tatamy Carbonate 150 mg PO BID 30 Days cap 01/05/21 Loperamide HCl [Imodium A-D] 2 - 4 mg PO QID PRN 30 Days tab 01/05/21 Metoprolol Tartrate [Lopressor] 50 mg PO BID 60 Days #30 tab 01/05/21 Mirtazapine [Remeron] 45 mg PO HS 30 Days tab 01/05/21 Nitroglycerin Sl Tabs [Nitrostat] 0.4 mg SUBLINGUAL Q5M PRN 2 Days 01/05/21 tab Pantoprazole [Protonix] 40 mg PO AC-BID 30 Days tablet.dr 01/05/21 Potassium Chloride ER [K-Dur 20] 20 meq PO DAILY 30 Days tab 01/05/21 QUEtiapine [SEROquel] 200 mg PO HS 30 Days tab 01/05/21 Ranolazine [Ranexa] 1,000 mg PO BID 30 Days tab 01/05/21 Sertraline [Zoloft] 200 mg PO DAILY 30 Days tab 01/05/21 Spironolactone [Aldactone] 25 mg PO DAILY 30 Days tab 01/05/21 Ticagrelor [Brilinta] 90 mg PO BID 30 Days tab 01/05/21 amLODIPine [Norvasc] 5 mg PO DAILY 30 Days #90 tab 01/05/21 hydrOXYzine pamoate [Vistaril] 25 mg PO TID 30 Days cap 01/05/21 levETIRAcetam [Keppra] 500 mg PO Q12H 30 Days tab 01/05/21 lisinopriL [Zestril] 2.5 mg PO DAILY 30 Days tab 01/05/21 Allergies Allergy/AdvReac Type Severity Reaction Status Date / Time gabapentin Allergy Severe Anaphylaxis Verified 01/06/21 08:12 shellfish derived [Crab] Allergy Intermediate Rash/Hives Verified 01/06/21 08:12 Review of Systems ROS Statement: Those systems with pertinent positive or pertinent negative responses have been documented in the HPI. ROS Other: All systems not noted in ROS Statement are negative. EKG Findings - EKG Comments: EKG Findings:: EKG performed at 6:47 normal sinus rhythm with a prolonged QT with a rate of 78 AL 168 QRS 94 QT/QTC 426/485 Past Medical History Past Medical History: Coronary Artery Disease (CAD), Chest Pain / Angina, COPD, CVA/TIA, Diabetes Mellitus, GERD/Reflux, GI Bleed, Hyperlipidemia, Hypertension, Myocardial Infarction (IA), Musculoskeletal Disorder, Pneumonia, Thyroid Disorder Additional Past Medical History / Comment(s): Pt was recently admitted to [facility] for cardiac related issues.Pt recently admitted to [facility] on 10/29/20 with abdominal pain/colitis, aphasia/ams/L facial numbness/possible acuteischemic stroke. 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 Last Myocardial Infarction Date:: 2015 History of Any Multi-Drug Resistant Organisms: ESBL Date of last positivie culture/infection: 08/27/20 MDRO Source:: ESBL URINE Past Surgical History: Appendectomy, Bladder Surgery, Cardiac Valve Replacement, Cholecystectomy, Coronary Bypass/CABG, Heart Catheterization, Heart Catheteriza tion With Stent, Hysterectomy Additional Past Surgical History / Comment(s): 2013 CABG 4 vessel, 2016 mitral valve replacement, PCIs with multiple stents, bilateral leg stents, bladder susupension, colonoscopy. Past Anesthesia/Blood Transfusion Reactions: No Reported Reaction Date of Last Stent Placement:: 06/25/20 Past Psychological History: Anxiety, Bipolar, Depression Smoking Status: Never smoker Past Alcohol Use History: None Reported Past Drug Use History: None Reported - Past Family History Father Family Medical History: Coronary Artery Disease (CAD) Additional Family Medical History / Comment(s): heart disease Mother Family Medical History: Cancer Additional Family Medical History / Comment(s): Lung cancer General Exam General appearance: alert, in no apparent distress Head exam: Present: atraumatic, normocephalic, normal inspection Neck exam: Present: normal inspection, full ROM. Absent: tenderness, meningismus, lymphadenopathy Respiratory exam: Present: normal lung sounds bilaterally, chest wall tenderness. Absent: respiratory distress, wheezes, rales, rhonchi, stridor Cardiovascular Exam: Present: regular rate, normal rhythm, normal heart sounds. Absent: systolic murmur, diastolic murmur, rubs, gallop, clicks GI/Abdominal exam: Present: soft, normal bowel sounds. Absent: distended, tenderness, guarding, rebound, rigid Neurological exam: Present: alert Skin exam: Present: warm, dry, intact, normal color. Absent: rash Course Vital Signs 01/06/21 01/06/21 01/06/21 06:34 07:03 07:35 Temperature 98.3 F 98.2 F Pulse Rate 86 70 Pulse Rate [ 74 Lump Maker ] Respiratory 18 16 Rate Blood Pressure 135/67 149/70 O2 Sat by Pulse 99 99 Oximetry 01/06/21 09:22 Temperature Pulse Rate 76 Pulse Rate [ Lump Maker ] Respiratory 18 Rate Blood Pressure 129/65 O2 Sat by Pulse 100 Oximetry Chest Pain MDM - MDM Patient continues to have chest discomfort. Patient admitted for cardiac evaluation again as he has extensive history she was treated for UTI. Disposition Clinical Impression: Chest pain, UTI (urinary tract infection) Disposition: ADMITTED IP TO THIS HOSP Referrals: Jerson Aguilar MD [Primary Care Provider] - 1-2 days
[2021-01-06 07:25] LABS: Basophils % (A) 0 %; Eosinophils # (A) 0.1 k/uL (0-0.7); Eosinophils % (A) 1 %; HCT 33.4 % (34.0-46.0); HGB 11.5 gm/dL (11.4-16.0); Lymphocytes # (A) 0.8 k/uL (1.0-4.8); Lymphocytes % (A) 13 %; MCH 32.4 pg (25.0-35.0); MCHC 34.3 g/dL (31.0-37.0); MCV 94.3 fL (80.0-100.0); Monocytes # (A) 0.4 k/uL (0-1.0); Monocytes % (A) 6 %; Neutrophils # (A) 4.9 k/uL (1.3-7.7); Neutrophils % (A) 77 %; Platelet Count 291 k/uL (150-450); RBC 3.54 m/uL (3.80-5.40); RDW 13.4 % (11.5-15.5); WBC 6.3 k/uL (3.8-10.6)
[2021-01-06 07:38] LABS: Albumin 4.6 g/dL (3.5-5.0); Calcium 8.9 mg/dL (8.4-10.2); Magnesium 2.4 mg/dL (1.6-2.3); Potassium 4.2 mmol/L (3.5-5.1); Total Bilirubin 0.5 mg/dL (0.2-1.3); Total Protein 7.1 g/dL (6.3-8.2)
--- NOTE | 2021-01-06 07:39 | XR ---
EXAMINATION TYPE: XR chest 2V DATE OF EXAM: 01/06/2021 COMPARISON: 12/25/2020 HISTORY: Chest pain TECHNIQUE: Frontal and lateral views of the chest are obtained. FINDINGS: There is no focal air space opacity, pleural effusion, or pneumothorax seen. Surgical clip s overlie in the left upper lung. The cardiac silhouette size is within normal limits with postoperat mejia changes including a prosthetic valve. Sternotomy changes are noted. IMPRESSION: No acute cardiopulmonary process.
[2021-01-06 07:40] LABS: INR 0.9 (<1.2); Prothrombin Time 9.8 sec (9.0-12.0)
[2021-01-06 07:43] LABS: Partial Thromboplastin Time 21.8 sec (22.0-30.0)
[2021-01-06] MEDS ORDERED: SODIUM CHLORIDE 0.9% 1,000 ML IV ONE (07:55)
[2021-01-06 09:15] LABS: Appearance,Urine Cloudy (Clear); Bacteria,Urine Many /hpf; Bilirubin,Urine Negative (Negative); Blood,Urine Trace (Negative); Color,Urine Yellow; Glucose,Urine (UA) Trace (Negative); Ketones,Urine Negative (Negative); Leukocyte Esterase,Urine Large (Negative); Nitrite,Urine Negative (Negative); PH, Urine 5.5 (5.0-8.0); Protein,Urine 1+ (Negative); RBC,Urine 2 /hpf (0-5); Specific Gravity,Urine 1.016 (1.001-1.035); Squamous Epithelial Cell,Urine 1 /hpf (0-4); Urobilinogen,Urine <2.0 mg/dL (<2.0); WBC,Urine >182 /hpf (0-5)
[2021-01-06] MEDS ORDERED: HEPARIN SODIUM 1,000 UN/ML (10ML VL) IV ONE (10:11)
[2021-01-06] MEDS ORDERED: NITROGLYCERIN SL TABS 0.4 MG TAB SUBLINGUAL PRN ×2 (10:11→17:23)
[2021-01-06] MEDS ORDERED: HEPARIN SOD,PORK IN 0.45% NACL 25,000 UNIT in 0.45% NACL 1 250ML.BAG IV SCH (10:15)
[2021-01-06] MEDS ORDERED: CYCLOBENZAPRINE 10 MG TAB PO PRN (17:23)
[2021-01-06] MEDS: HYDROcodone/APAP 5-325MG 1 EACH TAB PO PRN (17:56)
[2021-01-06 18:13] LABS: Glucose,Whole Blood 242 mg/dL (75-99)
[2021-01-06] MEDS: INSULIN ASPART (NovoLOG) 100 UNIT/ML VIAL SQ SCH ×2 (18:18→22:37)
[2021-01-06] MEDS: PANTOPRAZOLE 40 MG TABLET PO SCH (18:20)
[2021-01-06] MEDS ORDERED: MIRTAZAPINE 45 MG TABLET PO SCH (21:00)
[2021-01-06] MEDS: TICAGRELOR 90 MG TAB PO SCH (22:35)
[2021-01-06] MEDS: RANOLAZINE 500 MG TAB.ER.12H PO SCH (22:36)
[2021-01-06] MEDS: ISOSORBIDE MONONITRATE ER 60 MG TAB.ER.24H PO SCH (22:36)
[2021-01-06] MEDS: QUEtiapine 200 MG TAB PO SCH (22:36)
[2021-01-06] MEDS: hydrOXYzine pamoate 25 MG CAP PO SCH (22:36)
[2021-01-06] MEDS: METOPROLOL TARTRATE 50 MG TAB PO SCH (22:36)
[2021-01-06] MEDS: levETIRAcetam 500 MG TAB PO SCH (22:36)
[2021-01-06] MEDS: LITHIUM CARBONATE 150 MG CAP PO SCH (22:36)
[2021-01-06] MEDS: INSULIN DETEMIR (LEVEMIR) 100 UNIT/ML SYR SQ SCH (22:37)
[2021-01-06] MEDS: NYSTATIN 100,000 UNIT/GM POWD 15 GM TOPICAL SCH (22:42)
[2021-01-07] MEDS: LEVOTHYROXINE 100 MCG TAB PO SCH (06:23)
[2021-01-07 07:08] LABS: Glucose,Whole Blood 110 mg/dL (75-99)
[2021-01-07] MEDS: INSULIN DETEMIR (LEVEMIR) 100 UNIT/ML SYR SQ SCH ×2 (07:52→21:05)
[2021-01-07] MEDS: ATORVASTATIN 80 MG TAB PO SCH (07:52)
[2021-01-07] MEDS: FERROUS SULFATE 325 MG TAB PO SCH (07:52)
[2021-01-07] MEDS: LITHIUM CARBONATE 150 MG CAP PO SCH (07:53)
[2021-01-07] MEDS: METOPROLOL TARTRATE 50 MG TAB PO SCH ×2 (07:53→21:08)
[2021-01-07] MEDS: ISOSORBIDE MONONITRATE ER 60 MG TAB.ER.24H PO SCH ×2 (07:53→21:08)
[2021-01-07] MEDS: PANTOPRAZOLE 40 MG TABLET PO SCH ×2 (07:53→18:06)
[2021-01-07] MEDS: RANOLAZINE 500 MG TAB.ER.12H PO SCH ×2 (07:53→21:09)
[2021-01-07] MEDS: EZETIMIBE 10 MG TAB PO SCH (07:54)
[2021-01-07] MEDS: levETIRAcetam 500 MG TAB PO SCH ×2 (07:54→21:08)
[2021-01-07] MEDS: SERTRALINE 100 MG TAB PO SCH (07:54)
[2021-01-07] MEDS: TICAGRELOR 90 MG TAB PO SCH ×2 (07:54→21:08)
[2021-01-07] MEDS: hydrOXYzine pamoate 25 MG CAP PO SCH ×3 (07:55→22:03)
[2021-01-07] MEDS: POTASSIUM CHLORIDE ER 20 MEQ TAB.ER PO SCH (07:56)
[2021-01-07] MEDS: FUROSEMIDE 40 MG TAB PO SCH (07:56)
[2021-01-07] MEDS: ASPIRIN 81 MG PO SCH (07:56)
[2021-01-07] MEDS: FOLIC ACID 1 MG TAB PO SCH (07:56)
[2021-01-07] MEDS: SPIRONOLACTONE 25 MG TAB PO SCH (07:56)
[2021-01-07] MEDS: NYSTATIN 100,000 UNIT/GM POWD 15 GM TOPICAL SCH ×3 (08:05→22:01)
[2021-01-07] MEDS: INSULIN ASPART (NovoLOG) 100 UNIT/ML VIAL SQ SCH ×4 (08:05→21:05)
[2021-01-07] MEDS: HYDROcodone/APAP 5-325MG 1 EACH TAB PO PRN ×3 (08:13→20:46)
[2021-01-07] MEDS ORDERED: ASPIRIN 325 MG TAB PO SCH (09:00)
[2021-01-07 10:59] LABS: Chol/HDL Ratio 2.06
[2021-01-07 11:44] LABS: Glucose,Whole Blood 129 mg/dL (75-99)
[2021-01-07] MEDS ORDERED: MEROPENEM 500 MG in SODIUM CHLORIDE 0.9% 100 ML IVPB SCH (12:00)
--- NOTE | 2021-01-07 13:11 | P.CRDCN ---
History of Present Illness History of present illness: HISTORY OF PRESENTING ILLNESS This is a 55-year-old female with a past medical history significant for coronary artery disease with previous CABG and PCI, mitral valve replacement, hypertension, hyperlipidemia, diabetes mellitus, COPD, and CVA. Patient follows in the office with Dr. Mruillo. We have been asked to see the patient in consultation for chest pain. She has had multiple similar presentations in the past. She states yesterday she got substernal chest pain under her left breast not associated with any diaphoresis, shortness breath, exertion, nausea. She states it feels similar to prior episodes. She is not know why her chest pain is occurring. Concern of possible drug-seeking behavior and she is asking for narcotics for her pain. She recently underwent cardiac catheterization where medical management was recommended without any significant disease noted. DIAGNOSTICS EKG reveals normal sinus rhythm, borderline prolonged QT, minimal ST depressions 2, 3, aVF similar to prior.. Chest xray shows no acute process Laboratory reviewed, troponin 0.012, 0.023, 0.016, BUN 51, creatinine 1.59, cholesterol 136, LDL 42, white blood cell count 6.3, hemoglobin 11.5, platelets 291. REVIEW OF SYSTEMS At the time of my exam: CONSTITUTIONAL: Denies fever or chills. CARDIOVASCULAR: Denies chest pain, shortness of breath, orthopnea, PND or palpitations. RESPIRATORY: Denies cough. GASTROINTESTINAL: Denies abdominal pain, diarrhea, constipation, nausea or vomiting. MUSCULOSKELETAL: Denies myalgias. NEUROLOGIC: Denies numbness, tingling or weakness. ENDOCRINE: Denies fatigue, weight change, polydipsia or polyurina. GENITOURINARY: Denies burning, hematuria or urgency with micturation. HEMATOLOGIC: Denies history of anemia or bleeding. PHYSICAL EXAMINATION Vital signs reviewed. CONSTITUTIONAL: No apparent distress. HEENT: Head is normocephalic. Pupils are equal, round. Sclerae anicteric. Mucous membranes of the mouth are moist. No JVD. No carotid bruit. CHEST EXAMINATION: Lungs are clear to auscultation. No chest wall tenderness is noted on palpation or with deep breathing. HEART EXAMINATION: Regular rate and rhythm. S1, S2 heard. No murmurs, gallops or rub. ABDOMEN: Soft, nontender. Positive bowel sounds. EXTREMITIES: 2+ peripheral pulses, no lower extremity edema and no calf tenderness. NEUROLOGIC EXAMINATION: Patient is awake, alert and oriented x3. ASSESSMENT Atypical chest pain, troponins negative 3 Coronary artery disease with previous CABG and PCI Valvular heart disease with prior bioprosthetic mitral valve replacement Hypertension Hyperlipidemia Diabetes mellitus Peripheral vascular disease History of CVA 4 per patient Nicotine dependence PLAN Troponins negative 3. Patient with atypical chest pain and patient with multiple similar admissions in the past with last heart catheterization showing no obstructive disease. Continue with medical therapy. Questionable drug- seeking behavior. No further workup as an inpatient. Patient may be discharged from a cardiology standpoint with outpatient follow-up. Past Medical History Past Medical History: Coronary Artery Disease (CAD), Chest Pain / Angina, COPD, CVA/TIA, Diabetes Mellitus, GERD/Reflux, GI Bleed, Hyperlipidemia, Hypertension, Myocardial Infarction ([place]), Musculoskeletal Disorder, Pneumonia, Thyroid Disorder Additional Past Medical History / Comment(s): Pt was recently admitted to [facility] for cardiac related issues.Pt recently admitted to [facility] on 10/29/20 with abdominal pain/colitis, aphasia/ams/L facial numbness/possible acuteischemic stroke. 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 Last Myocardial Infarction Date:: 2015 History of Any Multi-Drug Resistant Organisms: ESBL Date of last positivie culture/infection: 08/27/20 MDRO Source:: ESBL URINE Past Surgical History: Appendectomy, Bladder Surgery, Cardiac Valve Replacement, Cholecystectomy, Coronary Bypass/CABG, Heart Catheterization, Heart Catheterization With Stent, Hysterectomy Additional Past Surgical History / Comment(s): 2013 CABG 4 vessel, 2017 mitral valve replacement, PCIs with multiple stents, bilateral leg stents, bladder susupension, colonoscopy. Past Anesthesia/Blood Transfusion Reactions: No Reported Reaction Date of Last Stent Placement:: 06/25/20 Past Psychological History: Anxiety, Bipolar, Depression Additional Psychological History / Comment(s): [facility] She uses a walker. She has a glucometer. She is fairly independent. Smoking Status: Never smoker Past Alcohol Use History: None Reported Additional Past Alcohol Use History / Comment(s): Pt started smoking in 1981 and is less than a ppd smoker. Past Drug Use History: None Reported - Past Family History Father Family Medical History: Coronary Artery Disease (CAD) Additional Family Medical History / Comment(s): heart disease Mother Family Medical History: Cancer Additional Family Medical History / Comment(s): Lung cancer Medications and Allergies Home Medications Medication Instructions Recorded Confirmed Type Nystatin 100,000 Unit/gm Powd 1 applic TOPICAL TID #1 bottle 12/26/20 01/06/21 Rx [Mycostatin Powder] Aspirin 81 mg PO DAILY 30 Days chew 01/05/21 01/06/21 Rx Atorvastatin [Lipitor] 80 mg PO DAILY 30 Days tab 01/05/21 01/06/21 Rx Cyclobenzaprine [Flexeril] 10 mg PO TID PRN 30 Days tab 01/05/21 01/06/21 Rx Ezetimibe [Zetia] 10 mg PO DAILY 30 Days #30 tab 01/05/21 01/06/21 Rx Ferrous Sulfate [Iron (65 MG 325 mg PO DAILY 30 Days tab 01/05/21 01/06/21 Rx Elemental)] Folic Acid 1 mg PO DAILY 30 Days tab 01/05/21 01/06/21 Rx Furosemide [Lasix] 40 mg PO DAILY 30 Days tab 01/05/21 01/06/21 Rx INSULIN ASPART (NovoLOG) [NovoLOG 7 unit SQ ACHS 30 Days vial 01/05/21 01/06/21 Rx (formulary)] Insulin Glargine,Hum.rec.anlog 28 unit SQ BID 30 Days pen 01/05/21 01/06/21 Rx [Lantus Solostar] Isosorbide Mononitrate ER [Imdur] 60 mg PO BID 30 Days tab.er.24h 01/05/21 01/06/21 Rx Levothyroxine Sodium [Synthroid] 200 mcg PO DAILY 30 Days tab 01/05/21 01/06/21 Rx [place] Carbonate 150 mg PO BID 30 Days cap 01/05/21 01/06/21 Rx Loperamide HCl [Imodium A-D] 2 - 4 mg PO QID PRN 30 Days tab 01/05/21 01/06/21 Rx Metoprolol Tartrate [Lopressor] 50 mg PO BID 60 Days #30 tab 01/05/21 01/06/21 Rx Mirtazapine [Remeron] 45 mg PO HS 30 Days tab 01/05/21 01/06/21 Rx Nitroglycerin Sl Tabs [Nitrostat] 0.4 mg SUBLINGUAL Q5M PRN 2 Days 01/05/21 01/06/21 Rx tab Pantoprazole [Protonix] 40 mg PO AC-BID 30 Days tablet. 01/05/21 01/06/21 Rx Potassium Chloride ER [K-Dur 20] 20 meq PO DAILY 30 Days tab 01/05/21 01/06/21 Rx QUEtiapine [SEROquel] 200 mg PO HS 30 Days tab 01/05/21 01/06/21 Rx Ranolazine [Ranexa] 1,000 mg PO BID 30 Days tab 01/05/21 01/06/21 Rx Sertraline [Zoloft] 200 mg PO DAILY 30 Days tab 01/05/21 01/06/21 Rx Spironolactone [Aldactone] 25 mg PO DAILY 30 Days tab 01/05/21 01/06/21 Rx Ticagrelor [Brilinta] 90 mg PO BID 30 Days tab 01/05/21 01/06/21 Rx amLODIPine [Norvasc] 5 mg PO DAILY 30 Days #90 tab 01/05/21 01/06/21 Rx hydrOXYzine pamoate [Vistaril] 25 mg PO TID 30 Days cap 01/05/21 01/06/21 Rx levETIRAcetam [Keppra] 500 mg PO Q12H 30 Days tab 01/05/21 01/06/21 Rx lisinopriL [Zestril] 2.5 mg PO DAILY 30 Days tab 01/05/21 01/06/21 Rx HYDROcodone/APAP 5-325MG [[place] 1 tab PO Q6HR PRN 01/06/21 01/06/21 History 5-325] Allergies Allergy/AdvReac Type Severity Reaction Status Date / Time gabapentin Allergy Severe Anaphylaxis Verified 01/06/21 08:12 shellfish derived [Crab] Allergy Intermediate Rash/Hives Verified 01/06/21 08:12 Physical Exam Vitals: Vital Signs Temp Pulse Pulse Pulse Resp BP BP 01/07/21 07:00 98.0 F 68 20 115/69 01/07/21 02:00 98.4 F 67 16 121/71 01/06/21 20:00 98.5 F 79 67 16 113/65 01/06/21 15:08 98.2 F 72 16 136/68 01/06/21 15:00 98 F 73 16 129/78 Pulse Ox 01/07/21 07:00 98 01/07/21 02:00 97 01/06/21 20:00 99 01/06/21 15:08 98 01/06/21 15:00 100 Intake and Output 01/06/21 01/07/21 01/07/21 22:59 06:59 14:59 Intake Total 300 Balance 300 Intake: Oral 300 Other: Voiding Method Toilet # Voids 1 Weight 83 kg Results 01/06/21 07:15 01/06/21 07:15 Cardiac Enzymes 01/06/21 01/06/21 Range/Units 17:23 20:42 Troponin I 0.023 0.016 (0.000-0.034) ng/mL Lipids 01/06/21 Range/Units 09:08 Triglycerides 140.0 (0.0-149.0) mg/dL Cholesterol 136 (0-200) mg/dL HDL Cholesterol 66.0 H (40.0-60.0) mg/dL Cholesterol/HDL Ratio 2.06 Current Medications Generic Name Dose Route Start Last Admin Trade Name Freq PRN Reason Stop Dose Admin Hydrocodone Bitart/Acetaminophen 1 each 01/06/21 17:23 01/07/21 08:13 Hydrocodone/Apap 5-325mg 1 Each Tab PO 1 each Q6HR PRN Administration Pain Aspirin 81 mg 01/07/21 09:00 01/07/21 07:56 Aspirin 81 Mg PO 81 mg DAILY CAROLYN Administration Atorvastatin Calcium 80 mg 01/07/21 09:00 01/07/21 07:52 Atorvastatin 80 Mg Tab PO 80 mg DAILY CAROLYN Administration Cyclobenzaprine HCl 10 mg 01/06/21 17:23 Cyclobenzaprine 10 Mg Tab PO TID PRN Muscle Spasm Ezetimibe 10 mg 01/07/21 09:00 01/07/21 07:54 Ezetimibe 10 Mg Tab PO 10 mg DAILY CAROLYN Administration Ferrous Sulfate 325 mg 01/07/21 09:00 01/07/21 07:52 Ferrous Sulfate 325 Mg Tab PO 325 mg DAILY CAROLYN Administration Folic Acid 1 mg 01/07/21 09:00 01/07/21 07:56 Folic Acid 1 Mg Tab PO 1 mg DAILY CAROLYN Administration Furosemide 40 mg 01/07/21 09:00 01/07/21 07:56 Furosemide 40 Mg Tab PO 40 mg DAILY CAROLYN Administration Hydroxyzine Pamoate 25 mg 01/06/21 22:00 01/07/21 07:55 Hydroxyzine Pamoate 25 Mg Cap PO 25 mg TID CAROLYN Administration Meropenem 500 mg/ Sodium 100 mls @ 33.3 mls/hr 01/07/21 12:00 01/07/21 12:38 Chloride IVPB 33.3 mls/hr Q8H CAROLYN Administration Protocol Insulin Aspart 7 unit 01/06/21 17:30 01/07/21 12:39 Insulin Aspart (Novolog) 100 Unit/Ml Vial SQ Not Given ACHS [facility] Insulin Detemir 28 unit 01/06/21 21:00 01/07/21 07:52 Insulin Detemir (Levemir) 100 Unit/Ml Syr SQ 28 unit BID@0700,2100 CAROLYN Administration Isosorbide Mononitrate 60 mg 01/06/21 21:00 01/07/21 07:53 Isosorbide Mononitrate Er 60 Mg Tab.Er.24h PO 60 mg BID CAROLYN Administration Levetiracetam 500 mg 01/06/21 21:00 01/07/21 07:54 Levetiracetam 500 Mg Tab PO 500 mg Q12HR CAROLYN Administration Levothyroxine Sodium 200 mcg 01/07/21 06:30 01/07/21 06:23 Levothyroxine 100 Mcg Tab PO 200 mcg DAILY@0630 CAROLYN Administration Lisinopril 2.5 mg 01/07/21 09:00 01/07/21 07:53 Lisinopril 2.5 Mg Tab PO 2.5 mg DAILY CAROLYN Administration [place] Carbonate 150 mg 01/06/21 21:00 01/07/21 07:53 [place] Carbonate 150 Mg Cap PO 150 mg BID CAROLYN Administration Metoprolol Tartrate 50 mg 01/06/21 21:00 01/07/21 07:53 Metoprolol Tartrate 50 Mg Tab PO 50 mg BID CAROLYN Administration Mirtazapine 45 mg 01/06/21 21:00 01/06/21 22:36 Mirtazapine 45 Mg Tablet PO 45 mg HS CAROLYN Administration Nitroglycerin 0.4 mg 01/06/21 17:23 Nitroglycerin Sl Tabs 0.4 Mg Tab SUBLINGUAL Q5M PRN Chest Pain Nystatin 1 applic 01/06/21 22:00 01/07/21 08:05 Nystatin 100,000 Unit/Gm Powd 15 Gm TOPICAL Not Given TID CAROLYN Pantoprazole Sodium 40 mg 01/06/21 17:30 01/07/21 07:53 Pantoprazole 40 Mg Tablet PO 40 mg AC-BID CAROLYN Administration Potassium Chloride 20 meq 01/07/21 09:00 01/07/21 07:56 Potassium Chloride Er 20 Meq Tab.Er PO 20 meq DAILY CAROLYN Administration Quetiapine Fumarate 200 mg 01/06/21 21:00 01/06/21 22:36 Quetiapine 200 Mg Tab PO 200 mg HS CAROLYN Administration Ranolazine 1,000 mg 01/06/21 21:00 01/07/21 07:53 Ranolazine 500 Mg Tab.Er.12h PO 1,000 mg BID CAROLYN Administration Sertraline HCl 200 mg 01/07/21 09:00 01/07/21 07:54 Sertraline 100 Mg Tab PO 200 mg DAILY CAROLYN Administration Spironolactone 25 mg 01/07/21 09:00 01/07/21 07:56 Spironolactone 25 Mg Tab PO 25 mg DAILY CAROLYN Administration Ticagrelor 90 mg 01/06/21 21:00 01/07/21 07:54 Ticagrelor 90 Mg Tab PO 90 mg BID CAROLYN Administration Intake and Output 01/06/21 01/07/21 01/07/21 22:59 06:59 14:59 Intake Total 300 Balance 300 Intake: Oral 300 Other: Voiding Method Toilet # Voids 1 Weight 83 kg 01/06/21 07:15 01/06/21 07:15
--- NOTE | 2021-01-07 16:29 | P.HPIM ---
History of Present Illness H&P Date: 01/06/21 Patient is a 55-year-old female who presented to [facility] emergency room with a chief complaint of chest pain patient was recently discharged from the psychiatry unit. She was evaluated in the emergency room she has an extensive cardiac history she was admitted to telemetry floor and started on IV heparin cardiology consultation was requested. A shunt also has evidence of urinary tract infection she was started on IV Rocephin. Her past medical history is significant for history of extensive cardiac history with history of coronary artery bypass graft surgery and history of multiple angioplasty and stent placement, patient also has difficulty with noncompliance with medications, and continued tobacco abuse. Her past medical history is also significant for hypertension, hyperlipidemia, insulin-dependent diabetes mellitus, and history of depression and anxiety disorder. On review of systems Patient was seen and examined on the medical floor, she is alert and oriented x 3 in no distress, she is still complaining of episodes of chest pain otherwise she denies any complaints there is no fever or chills no headache or dizziness no chest pain no shortness of breath no palpitation no cough no nausea or vomiting no abdominal pain no diarrhea no blood in the stools no burning with urination no frequency or urgency and no hematuria, there is no weakness or numbness in any of the extremities no change in vision speech or gait. Past Medical History Past Medical History: Coronary Artery Disease (CAD), Chest Pain / Angina, COPD, CVA/TIA, Diabetes Mellitus, GERD/Reflux, GI Bleed, Hyperlipidemia, Hypertension, Myocardial Infarction ([place]), Musculoskeletal Disorder, Pneumonia, Thyroid Disorder Additional Past Medical History / Comment(s): Pt was recently admitted to [facility] for cardiac related issues.Pt recently admitted to [facility] on 10/29/20 with abdominal pain/colitis, aphasia/ams/L facial numbness/possible acuteischemic stroke. 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 Last Myocardial Infarction Date:: 2015 History of Any Multi-Drug Resistant Organisms: ESBL Date of last positivie culture/infection: 08/27/20 MDRO Source:: ESBL URINE Past Surgical History: Appendectomy, Bladder Surgery, Cardiac Valve Replacement, Cholecystectomy, Coronary Bypass/CABG, Heart Catheterization, Heart Catheterization With Stent, Hysterectomy Additional Past Surgical History / Comment(s): 2013 CABG 4 vessel, 2016 mitral valve replacement, PCIs with multiple stents, bilateral leg stents, bladder susupension, colonoscopy. Past Anesthesia/Blood Transfusion Reactions: No Reported Reaction Date of Last Stent Placement:: 06/25/20 Past Psychological History: Anxiety, Bipolar, Depression Additional Psychological History / Comment(s): Pt resides with her [facility]. She uses a walker. She has a glucometer. She is fairly independent. Smoking Status: Never smoker Past Alcohol Use History: None Reported Additional Past Alcohol Use History / Comment(s): Pt started smoking in 1981 and is less than a ppd smoker. Past Drug Use History: None Reported - Past Family History Father Family Medical History: Coronary Artery Disease (CAD) Additional Family Medical History / Comment(s): heart disease Mother Family Medical History: Cancer Additional Family Medical History / Comment(s): Lung cancer Medications and Allergies Home Medications Medication Instructions Recorded Confirmed Type Nystatin 100,000 Unit/gm Powd 1 applic TOPICAL TID #1 bottle 12/26/20 01/06/21 Rx [Mycostatin Powder] Aspirin 81 mg PO DAILY 30 Days chew 01/05/21 01/06/21 Rx Atorvastatin [Lipitor] 80 mg PO DAILY 30 Days tab 01/05/21 01/06/21 Rx Cyclobenzaprine [Flexeril] 10 mg PO TID PRN 30 Days tab 01/05/21 01/06/21 Rx Ezetimibe [Zetia] 10 mg PO DAILY 30 Days #30 tab 01/05/21 01/06/21 Rx Ferrous Sulfate [Iron (65 MG 325 mg PO DAILY 30 Days tab 01/05/21 01/06/21 Rx Elemental)] Folic Acid 1 mg PO DAILY 30 Days tab 01/05/21 01/06/21 Rx Furosemide [Lasix] 40 mg PO DAILY 30 Days tab 01/05/21 01/06/21 Rx INSULIN ASPART (NovoLOG) [NovoLOG 7 unit SQ ACHS 30 Days vial 01/05/21 01/06/21 Rx (formulary)] Insulin Glargine,Hum.rec.anlog 28 unit SQ BID 30 Days pen 01/05/21 01/06/21 Rx [Lantus Solostar] Isosorbide Mononitrate ER [Imdur] 60 mg PO BID 30 Days tab.er.24h 01/05/21 01/06/21 Rx Levothyroxine Sodium [Synthroid] 200 mcg PO DAILY 30 Days tab 01/05/21 01/06/21 Rx [place] Carbonate 150 mg PO BID 30 Days cap 01/05/21 01/06/21 Rx Loperamide HCl [Imodium A-D] 2 - 4 mg PO QID PRN 30 Days tab 01/05/21 01/06/21 Rx Metoprolol Tartrate [Lopressor] 50 mg PO BID 60 Days #30 tab 01/05/21 01/06/21 Rx Mirtazapine [Remeron] 45 mg PO HS 30 Days tab 01/05/21 01/06/21 Rx Nitroglycerin Sl Tabs [Nitrostat] 0.4 mg SUBLINGUAL Q5M PRN 2 Days 01/05/21 01/06/21 Rx tab Pantoprazole [Protonix] 40 mg PO AC-BID 30 Days tablet.dr 01/05/21 01/06/21 Rx Potassium Chloride ER [K-Dur 20] 20 meq PO DAILY 30 Days tab 01/05/21 01/06/21 Rx QUEtiapine [SEROquel] 200 mg PO HS 30 Days tab 01/05/21 01/06/21 Rx Ranolazine [Ranexa] 1,000 mg PO BID 30 Days tab 01/05/21 01/06/21 Rx Sertraline [Zoloft] 200 mg PO DAILY 30 Days tab 01/05/21 01/06/21 Rx Spironolactone [Aldactone] 25 mg PO DAILY 30 Days tab 01/05/21 01/06/21 Rx Ticagrelor [Brilinta] 90 mg PO BID 30 Days tab 01/05/21 01/06/21 Rx amLODIPine [Norvasc] 5 mg PO DAILY 30 Days #90 tab 01/05/21 01/06/21 Rx hydrOXYzine pamoate [Vistaril] 25 mg PO TID 30 Days cap 01/05/21 01/06/21 Rx levETIRAcetam [Keppra] 500 mg PO Q12H 30 Days tab 01/05/21 01/06/21 Rx lisinopriL [Zestril] 2.5 mg PO DAILY 30 Days tab 01/05/21 01/06/21 Rx HYDROcodone/APAP 5-325MG [[place] 1 tab PO Q6HR PRN 01/06/21 01/06/21 History 5-325] Allergies Allergy/AdvReac Type Severity Reaction Status Date / Time gabapentin Allergy Severe Anaphylaxis Verified 01/06/21 08:12 shellfish derived [Crab] Allergy Intermediate Rash/Hives Verified 01/06/21 08:12 Physical Exam Vitals: Vital Signs Temp Pulse Pulse Resp BP BP Pulse Ox 01/06/21 15:08 98.2 F 72 16 136/68 98 01/06/21 15:00 98 F 73 16 129/78 100 01/06/21 10:19 72 16 136/68 98 01/06/21 09:22 76 18 129/65 100 01/06/21 07:35 98.2 F 70 16 149/70 99 01/06/21 07:03 74 01/06/21 06:34 98.3 F 86 18 135/67 99 Intake and Output 01/06/21 01/06/21 01/06/21 06:59 14:59 22:59 Intake Total 0 Balance 0 Intake: Oral 0 Other: # Voids 0 Weight 83.007 kg 83.007 kg 83 kg In general patient is alert and oriented x 3 in no distress HEENT head normocephalic and atraumatic Neck is supple no JVD no goiter no lymphadenopathy no carotid bruit Chest examination is clear to auscultation no crackles no wheezing Cardiac exam reveals regular heart sounds S1 and S2 no gallops no murmurs Abdomen is soft nontender no organomegaly with normal bowel sounds Extremity exam reveals no edema no cyanosis or clubbing Neurological examination reveals no gross focal deficits Results CBC & Chem 7: 01/06/21 07:15 01/06/21 07:15 Labs: Abnormal Lab Results - Last 24 Hours (Table) 01/06/21 01/06/21 01/06/21 Range/Units 07:15 07:15 07:15 RBC 3.54 L (3.80-5.40) m/uL Hct 33.4 L (34.0-46.0) % Lymphocytes # 0.8 L (1.0-4.8) k/uL APTT 21.8 L (22.0-30.0) sec BUN 51 H (7-17) mg/dL Creatinine 1.59 H (0.52-1.04) mg/dL Glucose 213 H (74-99) mg/dL Magnesium 2.4 H (1.6-2.3) mg/dL Urine Appearance (Clear) Urine Protein (Negative) Urine Glucose (UA) (Negative) Urine Blood (Negative) Ur Leukocyte Esterase (Negative) Urine WBC (0-5) /hpf Urine WBC Clumps (None) /hpf Urine Bacteria (None) /hpf 01/06/21 Range/Units 08:30 RBC (3.80-5.40) m/uL Hct (34.0-46.0) % Lymphocytes # (1.0-4.8) k/uL APTT (22.0-30.0) sec BUN (7-17) mg/dL Creatinine (0.52-1.04) mg/dL Glucose (74-99) mg/dL Magnesium (1.6-2.3) mg/dL Urine Appearance Cloudy H (Clear) Urine Protein 1+ H (Negative) Urine Glucose (UA) Trace H (Negative) Urine Blood Trace H (Negative) Ur Leukocyte Esterase Large H (Negative) Urine WBC >182 H (0-5) /hpf Urine WBC Clumps Many H (None) /hpf Urine Bacteria Many H (None) /hpf Microbiology - Last 24 Hours (Table) 01/06/21 08:30 Urine Culture - Preliminary Urine,Voided Thrombosis Risk Factor Assmnt - Choose All That Apply Any of the Below Risk Factors Present?: No Other Risk Factors: No Other congenital or acquired thrombophilia - If yes, enter type in comment: No Thrombosis Risk Factor Assessment Level: Very Low Risk Assessment and Plan Plan: Episodes of chest pain, in a 55-year-old female with extensive cardiac history patient is admitted to telemetry floor she was started on IV heparin Evidence of urinary tract infection patient was started on IV Rocephin awaiting urine culture results Underlying history of hypertension Underlying history of hyperlipidemia Underlying history of depression with anxiety disorder with recent admission to the psychiatry At this time patient was admitted to medical floor and started on IV heparin Cardiology consultation and psychiatry consultation are requested Patient was started on IV antibiotics Will monitor closely
--- NOTE | 2021-01-07 16:32 | P.PN ---
Subjective Progress Note Date: 01/07/21 Patient is a 55-year-old female who presented to [facility] emergency room with a chief complaint of chest pain patient was recently discharged from the psychiatry unit. She was evaluated in the emergency room she has an extensive cardiac history she was admitted to telemetry floor and started on IV heparin cardiology consultation was requested. A shunt also has evidence of urinary tract infection she was started on IV Rocephin. Her past medical history is significant for history of extensive cardiac history with history of coronary artery bypass graft surgery and history of multiple angioplasty and stent placement, patient also has difficulty with noncompliance with medications, and continued tobacco abuse. Her past medical history is also significant for hypertension, hyperlipidemia, insulin-dependent diabetes mellitus, and history of depression and anxiety disorder. On review of systems Patient was seen and examined on the medical floor, she is alert and oriented x 3 in no distress, she is still complaining of episodes of chest pain otherwise she denies any complaints there is no fever or chills no headache or dizziness no chest pain no shortness of breath no palpitation no cough no nausea or vomiting no abdominal pain no diarrhea no blood in the stools no burning with urination no frequency or urgency and no hematuria, there is no weakness or numbness in any of the extremities no change in vision speech or gait. On 01/07/2021 patient was seen and examined on the medical floor she is alert and oriented 3 in no apparent distress she is still complaining of episodes of chest pain otherwise she denies any complaints at this time urine culture is positive for E. coli MDRO ESBL at this time IV Rocephin will be discontinued patient will be started on IV meropenem infectious disease consultation was requested. We asked for a possible midline placement or PICC line placement for possible discharge if cleared by cardiology however we were unable to secure an IV access and apparently this will not be available until Sunday Objective - Vital Signs Vital signs: Vital Signs Temp 98.3 F 01/07/21 14:49 Pulse 65 01/07/21 14:49 Resp 19 01/07/21 14:49 BP 103/65 01/07/21 14:49 Pulse Ox 99 01/07/21 14:49 Intake & Output 01/06/21 01/07/21 01/07/21 18:59 06:59 18:59 Intake Total 300 240 Balance 300 240 Weight 83 kg Intake: Oral 300 240 Other: Voiding Method Toilet # Voids 0 1 4 - Exam In general patient is alert and oriented x 3 in no distress HEENT head normocephalic and atraumatic Neck is supple no JVD no goiter no lymphadenopathy no carotid bruit Chest examination is clear to auscultation no crackles no wheezing Cardiac exam reveals regular heart sounds S1 and S2 no gallops no murmurs Abdomen is soft nontender no organomegaly with normal bowel sounds Extremity exam reveals no edema no cyanosis or clubbing Neurological examination reveals no gross focal deficits - Labs CBC & Chem 7: 01/06/21 07:15 01/06/21 07:15 Labs: Abnormal Lab Results - Last 24 Hours (Table) 01/06/21 01/06/21 01/07/21 Range/Units 09:08 18:00 07:07 POC Glucose (mg/dL) 242 H 110 H (75-99) mg/dL HDL Cholesterol 66.0 H (40.0-60.0) mg/dL 01/07/21 Range/Units 11:39 POC Glucose (mg/dL) 129 H (75-99) mg/dL HDL Cholesterol (40.0-60.0) mg/dL Microbiology - Last 24 Hours (Table) 01/06/21 08:30 Urine Culture - Preliminary Urine,Voided Gram Neg Bacilli Assessment and Plan Plan: Episodes of chest pain, in a 55-year-old female with extensive cardiac history patient is admitted to telemetry floor she was started on IV heparin Evidence of urinary tract infection patient was started on IV Rocephin awaiting urine culture results Underlying history of hypertension Underlying history of hyperlipidemia Underlying history of depression with anxiety disorder with recent admission to the psychiatry At this time patient was admitted to medical floor and started on IV heparin Cardiology consultation and psychiatry consultation are requested Patient was started on IV antibiotics Will monitor closely
[2021-01-07 17:17] LABS: Glucose,Whole Blood 236 mg/dL (75-99)
[2021-01-07 20:33] LABS: Glucose,Whole Blood 224 mg/dL (75-99)
[2021-01-07] MEDS: MIRTAZAPINE 15 MG TAB PO SCH (21:08)
[2021-01-07] MEDS: QUEtiapine 200 MG TAB PO SCH (21:08)
[2021-01-08] MEDS: LEVOTHYROXINE 100 MCG TAB PO SCH (05:44)
[2021-01-08 07:21] LABS: Glucose,Whole Blood 95 mg/dL (75-99)
[2021-01-08] MEDS: HYDROcodone/APAP 5-325MG 1 EACH TAB PO PRN ×3 (07:45→20:26)
[2021-01-08] MEDS: PANTOPRAZOLE 40 MG TABLET PO SCH ×2 (07:46→17:46)
[2021-01-08] MEDS: INSULIN DETEMIR (LEVEMIR) 100 UNIT/ML SYR SQ SCH ×2 (08:07→20:49)
[2021-01-08] MEDS: INSULIN ASPART (NovoLOG) 100 UNIT/ML VIAL SQ SCH ×4 (08:07→20:49)
--- NOTE | 2021-01-08 08:18 | US ---
EXAMINATION TYPE: US kidneys/renal and bladder DATE OF EXAM: 01/08/2021 COMPARISON: CLINICAL HISTORY: uti and bacteremia. Infection EXAM MEASUREMENTS: Right Kidney: 10.7 x 4.4 x 4.8 cm Left Kidney: 10.6 x 4.9 x 4.9 cm Right Kidney: No hydronephrosis or masses seen Left Kidney: No hydronephrosis or masses seen Bladder: distended, anechoic Bilateral Jets not seen There is no evidence for hydronephrosis at this point in time. No nephrolithiasis is seen. No david s are identified. The urinary bladder is anechoic. Bilateral ureteral jets are seen. IMPRESSION: No distinct abnormality appreciated.
[2021-01-08] MEDS ORDERED: LITHIUM CARBONATE 300 MG CAP PO SCH (09:00)
[2021-01-08] MEDS: FUROSEMIDE 40 MG TAB PO SCH (09:09)
[2021-01-08] MEDS: ASPIRIN 81 MG PO SCH (09:09)
[2021-01-08] MEDS: EZETIMIBE 10 MG TAB PO SCH (09:09)
[2021-01-08] MEDS: ATORVASTATIN 80 MG TAB PO SCH (09:09)
[2021-01-08] MEDS: FERROUS SULFATE 325 MG TAB PO SCH (09:09)
[2021-01-08] MEDS: FOLIC ACID 1 MG TAB PO SCH (09:10)
[2021-01-08] MEDS: levETIRAcetam 500 MG TAB PO SCH ×2 (09:10→20:25)
[2021-01-08] MEDS: ISOSORBIDE MONONITRATE ER 60 MG TAB.ER.24H PO SCH ×2 (09:10→20:24)
[2021-01-08] MEDS: TICAGRELOR 90 MG TAB PO SCH ×2 (09:11→20:23)
[2021-01-08] MEDS: hydrOXYzine pamoate 25 MG CAP PO SCH ×3 (09:11→20:24)
[2021-01-08] MEDS: POTASSIUM CHLORIDE ER 20 MEQ TAB.ER PO SCH (09:11)
[2021-01-08] MEDS: METOPROLOL TARTRATE 50 MG TAB PO SCH ×2 (09:11→20:23)
[2021-01-08] MEDS: SPIRONOLACTONE 25 MG TAB PO SCH (09:11)
[2021-01-08] MEDS: SERTRALINE 100 MG TAB PO SCH (09:12)
[2021-01-08] MEDS: ERTAPENEM 1 GM in SODIUM CHLORIDE 0.9% 50 ML IVPB SCH (09:12)
[2021-01-08] MEDS: RANOLAZINE 500 MG TAB.ER.12H PO SCH ×2 (09:13→20:25)
--- NOTE | 2021-01-08 09:16 | CONS ---
CONSULTATION DATE OF SERVICE: 01/07/2021 PURPOSE FOR CONSULTATION: Evaluate for anxiety and depression. HISTORY OF PRESENTING ILLNESS: The patient is a 55-year-old female. She was admitted to the medical floor related to chest pain. She has extensive cardiac history. She was further diagnosed with a urinary tract infection. The patient had a recent psychiatric hospitalization on the medical unit from 12/26 to 01/05/2021. 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 One issue for the patient on that admission was that she had been living with a close family friend, though the relationship soured and she was asked to move out of that home. She said she was homeless at the time she was admitted to the psychiatric unit. She was felt to be stabilized on her psychotropic medications, which included Zoloft 200 mg a day. [place] 150 mg twice a day, Seroquel 200 mg at bedtime, Remeron 45 mg a day and Vistaril 25 mg 3 times a day. It was anticipated that the patient would be discharged to a halfway. When I saw the patient today, she said that she had stayed with a friend. She did not say who the person was. She understands that she has some complicated medical issues including ongoing cardiac issues plus E coli infection with multiple drug-resistant organisms. She will be requiring IV antibiotics. She stated that she had talked to the geriatric social worker today and that there were arrangements made for her to be housed in an [facility] facility for the time that she will be needing followup for her general health issues. From a psychiatric standpoint, the patient indicated she was doing fairly well. She noted that she was not having problems with depression. She felt her medications had been helping her. She said that she had a better outlook. She denied any issues about suicide or self-harm. She seemed to have a reasonable understanding of her current medical situation and expectations for followup. She reported no side effects or problems relating to her psychotropic medications. MENTAL STATUS: Patient was lying in bed. She gave good eye contact. She answered questions appropriately. Her thoughts were clear, coherent and goal-directed. She was somewhat spontaneous and interactive. Her affect was a little constricted though not significantly so. She had a quiet, calm manner. Her mood was even. She did not appear to be depressed or distressed. There was no indication for thought disorder. She voiced no thoughts of harm. Cognition was clear. ASSESSMENT: From a psychiatric standpoint, the patient appears to be doing fairly well. She shows overall improvement in her mood compared to the recent hospitalization she had on the psychiatric unit. She appears to be tolerating her medications fairly well. She is on a complicated set of psychotropic medications. Given that she is on two antidepressants, I will reduce her Remeron from 45 mg a day down to 30 mg a day. There is not a clear indication for the patient to remain on two antidepressants. She had been started on lithium carbonate from her recent hospitalization as augmentation to her antidepressant. I will change her dosing from 150 mg twice a day to 300 mg once a day. The aim is an effort to simplify her medications, which may help with compliance. I would continue Seroquel 200 mg a day and Zoloft 200 mg a day. If she continues to do fairly well from this from the standpoint of her mood issues, I would look to continue to taper her off Remeron and aim for her being on just one antidepressant. She does have a risk for anxiety and mood issues related to her infection, though through the course of treatment. Hopefully, she was to continue to make progress and be more stable in regards to mood disorder. I will not be in the hospital for the next 10 days so that if there are further needs from psychiatric standpoint, please contact the psychiatric unit for further care. ROSHAN / JENNIFER: [id number] /
[2021-01-08 09:19] LABS: Basophils # (A) 0.02 X 10*3/uL (0.00-0.10); Basophils % (A) 0.4 %; Eosinophils % (A) 2.2 %; HCT 29.7 % (37.2-46.3); HGB 9.5 g/dL (12.0-15.0); Lymphocytes # (A) 1.08 X 10*3/uL (0.90-5.00); MCH 31.1 pg (27.0-32.0); MCV 97.4 fL (80.0-97.0); Mean Platelet Volume 9.7 fL (9.5-12.2); Monocytes # (A) 0.46 X 10*3/uL (0.20-1.00); Monocytes % (A) 10.2 %; Neutrophils # (A) 2.82 X 10*3/uL (1.80-7.70); Neutrophils % (A) 62.8 %; Platelet Count 228 X 10*3/uL (140-440); RBC 3.05 X 10*6/uL (4.10-5.20); RDW 13.2 % (11.5-14.5)
[2021-01-08] MEDS: NYSTATIN 100,000 UNIT/GM POWD 15 GM TOPICAL SCH ×3 (09:20→20:51)
[2021-01-08] MEDS: LITHIUM CARBONATE 300 MG CAP PO SCH (09:20)
--- NOTE | 2021-01-08 09:21 | CONS ---
CONSULTATION DATE OF SERVICE: 01/07/2021 REASON FOR CONSULTATION: ESBL E coli urinary tract infection. HISTORY OF PRESENT ILLNESS: The patient is a 55-year-old female with past medical history significant for COPD, history of recurrent UTI. The patient was brought to the hospital for evaluation of chest discomfort. The patient's symptoms started for a few hours before presentation to hospital and is complaining of more of a light pressure. The patient denies having any cough or sputum production. No nausea, no vomiting. No abdominal pain or any diarrhea. Did have some urinary burning and frequency but no suprapubic or flank pain. On presentation to the hospital, the patient was afebrile and no fever has been recorded. Subsequently the patient did have a normal white count, BUN, and creatinine slightly elevated. Liver enzymes are normal. Urine was positive with large leukocyte esterase, more than 1-2 WBC and carranza PCR was negative. Urine showing Gram- negative bacilli. The patient did have a recent urine culture in outpatient setting on January 05, which came back positive with ESBL. The patient has been started on meropenem. Infectious Disease was consulted for further management of antibiotic therapy. REVIEW OF SYSTEMS: Positive points have been mentioned in HPI. Rest of systems are negative. PAST MEDICAL HISTORY: COPD, coronary artery disease, angina, CVA, TIA, diabetes mellitus, gastroesophageal reflux disease, GI bleed, hyperlipidemia, hypertension, [place], pneumonia, hypothyroidism. PAST SURGICAL HISTORY: Appendectomy, bladder surgery, cardiac valve replacement, cholecystectomy, coronary artery bypass grafting, heart catheterization with stent, hysterectomy. SOCIAL HISTORY: No history of smoking, drinking or drug use. FAMILY HISTORY: Father with history of coronary artery disease. Mother history of lung cancer. ALLERGIES: GABAPENTIN. MEDICATIONS: The patient is currently on [place], aspirin, Lipitor, Flexeril, meropenem 500 q8. The patient is on Zetia, iron sulfate, folic acid, Lasix, Restoril, NovoLog, Levemir, Imdur, Keppra, Synthroid, Zestril and [place], Remeron, Nitrostat, Mycostatin powder. PHYSICAL EXAMINATION: Blood pressure is 118/72 with a pulse of 90, temperature 98. She is 99% on room air. General description: The patient is a middle-aged female lying in bed in no distress. No tachypnea or accessory muscles of respiration use. HEENT: Examination shows no pallor or scleral icterus. Oral mucous membranes dry. NECK: Trachea central. No thyromegaly. LUNGS unlabored breathing. Clear to auscultation anteriorly. No wheeze or crackles. HEART S1, S2. Regular rate and rhythm. ABDOMEN: Soft, no tenderness. No guarding. No rigidity. EXTREMITIES: No edema of the feet. SKIN EXAMINATION: No rash or mass palpable. NEUROLOGICAL: Patient is awake, alert, oriented x3. Mood and affect normal. LABS: Hemoglobin 11.5, white count 6.3, BUN of 15, creatinine 1.5. Electrolytes have been normal. Liver enzymes are normal. Urine was positive. Culture now showing Gram- negative bacilli. Urine culture on January 05 positive for ESBL E coli. DIAGNOSTIC IMPRESSION AND PLAN: Patient admitted to the hospital with chest pain in this patient who does have a history of recurrent urinary tract infection. The patient's recent urine culture in outpatient setting was positive for ESBL and now with a positive UA and urinary symptoms and urine showing a Gram-negative bacilli, possible ESBL E coli, more likely representing cystitis. Clinically not behaving as a deep infection such as pyelonephritis with no fever or elevated white count. PLAN: 1. Discontinue meropenem and start the patient on IV Invanz 1 g IV piggyback daily. 2. Gentle IV fluid. 3. We will follow on clinical condition and culture to further adjust the medication if needed. Thank you for this consultation. Will follow this patient along with you. MMODL / IJN: [id number] /
[2021-01-08 10:10] LABS: African American GFR (CKD) 45.3 (60.0-200.0); Albumin 3.8 g/dL (3.80-4.90); Anion Gap 9.5 mmol/L (4.00-12.00); BUN/Creat Ratio 34.67 Ratio (12.00-20.00); Carbon Dioxide 23.5 mmol/L (21.6-31.8); Globulin 1.9 g/dL (1.6-3.3); Non-African American GFR(CKD) 39.1 (60.0-200.0); Potassium 4.3 mmol/L (3.5-5.5); Total Bilirubin 0.2 mg/dL (0.2-1.2); Total Protein 5.7 g/dL (6.2-8.2)
[2021-01-08 11:51] LABS: Glucose,Whole Blood 164 mg/dL (75-99)
--- NOTE | 2021-01-08 13:25 | P.PN ---
Subjective Progress Note Date: 01/08/21 Patient is a 55-year-old female who presented to [facility] emergency room with a chief complaint of chest pain patient was recently discharged from the psychiatry unit. She was evaluated in the emergency room she has an extensive cardiac history she was admitted to telemetry floor and started on IV heparin cardiology consultation was requested. A shunt also has evidence of urinary tract infection she was started on IV Rocephin. Her past medical history is significant for history of extensive cardiac history with history of coronary artery bypass graft surgery and history of multiple angioplasty and stent placement, patient also has difficulty with noncompliance with medications, and continued tobacco abuse. Her past medical history is also significant for hypertension, hyperlipidemia, insulin-dependent diabetes mellitus, and history of depression and anxiety disorder. On review of systems Patient was seen and examined on the medical floor, she is alert and oriented x 3 in no distress, she is still complaining of episodes of chest pain otherwise she denies any complaints there is no fever or chills no headache or dizziness no chest pain no shortness of breath no palpitation no cough no nausea or vomiting no abdominal pain no diarrhea no blood in the stools no burning with urination no frequency or urgency and no hematuria, there is no weakness or numbness in any of the extremities no change in vision speech or gait. On 01/07/2021 patient was seen and examined on the medical floor she is alert and oriented 3 in no apparent distress she is still complaining of episodes of chest pain otherwise she denies any complaints at this time urine culture is positive for E. coli MDRO ESBL at this time IV Rocephin will be discontinued patient will be started on IV meropenem infectious disease consultation was requested. We asked for a possible midline placement or PICC line placement for possible discharge if cleared by cardiology however we were unable to secure an IV access and apparently this will not be available until Sunday On 01/08/2021 Patient was seen and examined on the medical floor, he is alert and oriented x 3 in no distress, he denies any complaints there is no fever or chills no headache or dizziness no chest pain no shortness of breath no palpitation no cough no nausea or vomiting no abdominal pain no diarrhea no blood in the stools no burning with urination no frequency or urgency and no hematuria, there is no weakness or numbness in any of the extremities no change in vision speech or gait. BUN and creatinine are elevated patient is having episodes of hypotension amlodipine was discontinued, at this time will hold Lasix for 1-2 days and monitor kidney function. Objective - Vital Signs Vital signs: Vital Signs Temp 98.3 F 01/08/21 07:10 Pulse 71 01/08/21 07:10 Resp 16 01/08/21 07:10 BP 128/76 01/08/21 07:10 Pulse Ox 100 01/08/21 07:10 Intake & Output 01/07/21 01/08/21 01/08/21 18:59 06:59 18:59 Intake Total 240 Balance 240 Weight 83 kg Intake: Oral 240 Other: Voiding Method Toilet Toilet # Voids 4 1 2 # Bowel Movements 1 - Exam In general patient is alert and oriented x 3 in no distress HEENT head normocephalic and atraumatic Neck is supple no JVD no goiter no lymphadenopathy no carotid bruit Chest examination is clear to auscultation no crackles no wheezing Cardiac exam reveals regular heart sounds S1 and S2 no gallops no murmurs Abdomen is soft nontender no organomegaly with normal bowel sounds Extremity exam reveals no edema no cyanosis or clubbing Neurological examination reveals no gross focal deficits - Labs CBC & Chem 7: 01/08/21 06:03 01/08/21 06:03 Labs: Abnormal Lab Results - Last 24 Hours (Table) 01/07/21 01/07/21 01/08/21 Range/Units 17:15 20:30 06:03 RBC 3.05 L (4.10-5.20) X 10*6/uL Hgb 9.5 L (12.0-15.0) g/dL Hct 29.7 L (37.2-46.3) % MCV 97.4 H (80.0-97.0) fL BUN (9.0-27.0) mg/dL Est GFR (CKD-EPI)AfAm (60.0-200.0) Est GFR (CKD-EPI)NonAf (60.0-200.0) BUN/Creatinine Ratio (12.00-20.00) Ratio Glucose (70-110) mg/dL POC Glucose (mg/dL) 236 H 224 H (75-99) mg/dL Calcium (8.7-10.3) mg/dL Total Protein (6.2-8.2) g/dL 01/08/21 01/08/21 Range/Units 06:03 11:50 RBC (4.10-5.20) X 10*6/uL Hgb (12.0-15.0) g/dL Hct (37.2-46.3) % MCV (80.0-97.0) fL BUN 52.0 H (9.0-27.0) mg/dL Est GFR (CKD-EPI)AfAm 45.3 L (60.0-200.0) Est GFR (CKD-EPI)NonAf 39.1 L (60.0-200.0) BUN/Creatinine Ratio 34.67 H (12.00-20.00) Ratio Glucose 112 H (70-110) mg/dL POC Glucose (mg/dL) 164 H (75-99) mg/dL Calcium 8.0 L (8.7-10.3) mg/dL Total Protein 5.7 L (6.2-8.2) g/dL Microbiology - Last 24 Hours (Table) 01/06/21 08:30 Urine Culture - Final Urine,Voided Escherichia coli Assessment and Plan Plan: Episodes of chest pain, in a 55-year-old female with extensive cardiac history patient is admitted to telemetry floor she was started on IV heparin Evidence of urinary tract infection patient was started on IV Rocephin awaiting urine culture results Underlying history of hypertension Underlying history of hyperlipidemia Underlying history of depression with anxiety disorder with recent admission to the psychiatry Acute Renal failure improving gradually, Cr 1.59 yesterday Cr 0.85 on 12/26/2020 at this time we are holding IV Lasix and hydrating gently At this time patient was admitted to medical floor and started on IV heparin Cardiology consultation and psychiatry consultation are requested Patient was started on IV antibiotics Will monitor closely
--- NOTE | 2021-01-08 14:52 | CONS ---
CONSULTATION REASON FOR CONSULT: Renal failure. HISTORY OF PRESENT ILLNESS: Patient is a 55-year-old female who was admitted to the hospital on 01/06/2021 with complaints of chest pain. The patient was recently discharged from the psych unit. She was initially started on IV heparin. Patient's serum creatinine was 1.59 on January 06 and it is 1.5 today. Previous creatinine 0.85 on 12/26/2020. It is noted that the patient's blood pressure has been as low as 78 mmHg systolic. She is maintained on PHAM inhibitors. At this time patient denies use of any nonsteroidal anti-inflammatory agents. She states she has been voiding. Urine culture grew E coli. Currently patient is maintained on antibiotics. She is not on any IV fluids or diuretics except for Aldactone. PAST MEDICAL HISTORY: Hypertension, coronary artery disease, COPD, CVA/TIA, type 2 diabetes, gastroesophageal reflux disease, hyperlipidemia history of [place], pneumonia, hypothyroidism, history of colitis, multiple sclerosis, neuropathy, history of GI bleed, diverticular disease, seizure, history of mitral valve replacement, bipolar disorder, depression, anxiety. PAST SURGICAL HISTORY: Appendectomy, mitral valve replacement, cholecystectomy, coronary artery bypass surgery, cardiac catheterization, coronary stent placement, lower extremity stents, bladder suspension, colonoscopy. SOCIAL HISTORY: Negative for smoking. MEDICATIONS: Medications prior to admission included nystatin, aspirin, Lipitor, Flexeril, Zetia, iron, folic acid, Lasix, insulin, Imdur, Synthroid, lithium, Imodium Lopressor, Remeron, Nitrostat, Protonix, Seroquel, potassium, Ranexa, Zoloft, Aldactone, Keppra, Vistaril, Zestril and [place]. ALLERGIES: GABAPENTIN causes anaphylaxis and SHELLFISH. PHYSICAL EXAMINATION: Patient is comfortable, awake. She is not in any acute distress. Alert, oriented x3. Blood pressure 128/76, heart rate 71 per minute. She is afebrile. Examination of the heart S1, S2. Examination of the lungs, bilateral breath sounds are heard. Abdomen is soft, nontender. Examination of lower extremities shows no significant edema. RESIDENTIAL TREATMENT STAFF exam grossly intact. LAB: Shows hemoglobin 9.5 from today, sodium 138, potassium 4.3, BUN 52, creatinine 1.5. ASSESSMENT: 1. Acute kidney injury, most likely secondary to low blood pressure in the setting of use of PHAM inhibitors with underlying possible hypovolemia. The patient is maintained on oral Lasix at home which is currently on hold. I will continue to hold off on IV fluids as long as renal function continues to improve. The Zestril dose is very low at 2.5 mg, therefore, we may leave that unless patient's systolic blood pressure is below 100. 2. Urinary tract infection. Urine culture growing Escherichia coli, maintained on ertapenem. 3. History of bipolar disorder. 4. Chest pain, maintained on IV heparin. Troponin negative. 5. History of coronary artery disease history. 6. History of multiple sclerosis. 7. History of neuropathy. 8. Valvular heart disease status post mitral valve replacement. PLAN: Continue off Lasix. May continue with 2.5 mg of lisinopril. Repeat labs in a.m. Encourage increased oral intake. Currently patient is not on any IV fluids and I will hold off unless her renal function is not further improved tomorrow. Thank you for this consultation. Will continue to follow the patient with you during her hospitalization. MMODL / IJN: [id number] /
[2021-01-08 17:21] LABS: Glucose,Whole Blood 77 mg/dL (75-99)
[2021-01-08] MEDS: QUEtiapine 200 MG TAB PO SCH (20:23)
[2021-01-08 20:34] LABS: Glucose,Whole Blood 111 mg/dL (75-99)
[2021-01-08 20:35] LABS: Glucose,Whole Blood 120 mg/dL (75-99)
[2021-01-08] MEDS: MIRTAZAPINE 15 MG TAB PO SCH (20:49)
[2021-01-09 02:22] LABS: Glucose,Whole Blood 182 mg/dL (75-99)
--- NOTE | 2021-01-09 02:36 | PN ---
PROGRESS NOTE DATE OF SERVICE: 01/08/2021. REASON FOR FOLLOWUP: ESBL E. coli urinary tract infection. INTERVAL HISTORY: Patient is afebrile. The patient is breathing comfortably. The patient denies having any chest pain, no shortness of breath, no abdominal pain or diarrhea. PHYSICAL EXAMINATION: Blood pressure 127/84, pulse of ( ), temperature is 97.3, she is 99% on room air. Description: Is a middle-aged female up in the chair, in no distress. Respiratory system: Unlabored breathing, clear to auscultation anteriorly. Heart: S1, S2. Regular rate. Abdomen: Soft. No tenderness. LABS: Hemoglobin 9.5, white count 4.5 with a BUN of 15, creatinine 1.5. IMPRESSION AND PLAN: Patient with ESBL E. coli tract infection. Patient to continue with Invanz. While waiting for condition to stabilize, will repeat her UA and continue supportive care. MMODL / IJN: [id number] /
[2021-01-09 03:26] LABS: Appearance,Urine Clear (Clear); Bacteria,Urine Rare /hpf; Bilirubin,Urine Negative (Negative); Blood,Urine Negative (Negative); Color,Urine Yellow; Glucose,Urine (UA) Negative (Negative); Ketones,Urine Negative (Negative); Leukocyte Esterase,Urine Small (Negative); Nitrite,Urine Negative (Negative); Protein,Urine Negative (Negative); RBC,Urine 1 /hpf (0-5); Specific Gravity,Urine 1.013 (1.001-1.035); Squamous Epithelial Cell,Urine <1 /hpf (0-4); Urobilinogen,Urine <2.0 mg/dL (<2.0); WBC,Urine 39 /hpf (0-5)
[2021-01-09] MEDS: HYDROcodone/APAP 5-325MG 1 EACH TAB PO PRN ×2 (05:30→16:46)
[2021-01-09] MEDS: LEVOTHYROXINE 100 MCG TAB PO SCH (05:30)
[2021-01-09 07:38] LABS: Glucose,Whole Blood 128 mg/dL (75-99)
[2021-01-09] MEDS: PANTOPRAZOLE 40 MG TABLET PO SCH ×2 (08:08→17:44)
[2021-01-09] MEDS: ATORVASTATIN 80 MG TAB PO SCH (08:08)
[2021-01-09] MEDS: METOPROLOL TARTRATE 50 MG TAB PO SCH ×2 (08:08→20:41)
[2021-01-09] MEDS: SPIRONOLACTONE 25 MG TAB PO SCH (08:08)
[2021-01-09] MEDS: FERROUS SULFATE 325 MG TAB PO SCH (08:09)
[2021-01-09] MEDS: INSULIN DETEMIR (LEVEMIR) 100 UNIT/ML SYR SQ SCH ×2 (08:09→21:09)
[2021-01-09] MEDS: ASPIRIN 81 MG PO SCH (08:09)
[2021-01-09] MEDS: FOLIC ACID 1 MG TAB PO SCH (08:09)
[2021-01-09] MEDS: POTASSIUM CHLORIDE ER 20 MEQ TAB.ER PO SCH (08:09)
[2021-01-09] MEDS: EZETIMIBE 10 MG TAB PO SCH (08:10)
[2021-01-09] MEDS: hydrOXYzine pamoate 25 MG CAP PO SCH ×3 (08:10→20:41)
[2021-01-09] MEDS: levETIRAcetam 500 MG TAB PO SCH ×2 (08:11→20:40)
[2021-01-09] MEDS: LITHIUM CARBONATE 300 MG CAP PO SCH (08:11)
[2021-01-09] MEDS: ISOSORBIDE MONONITRATE ER 60 MG TAB.ER.24H PO SCH ×2 (08:11→20:41)
[2021-01-09] MEDS: SERTRALINE 100 MG TAB PO SCH (08:12)
[2021-01-09] MEDS: RANOLAZINE 500 MG TAB.ER.12H PO SCH ×2 (08:12→20:41)
[2021-01-09] MEDS: TICAGRELOR 90 MG TAB PO SCH ×2 (08:12→20:40)
[2021-01-09] MEDS: NYSTATIN 100,000 UNIT/GM POWD 15 GM TOPICAL SCH ×3 (08:13→20:42)
[2021-01-09] MEDS: INSULIN ASPART (NovoLOG) 100 UNIT/ML VIAL SQ SCH ×4 (08:13→20:45)
[2021-01-09] MEDS: ERTAPENEM 1 GM in SODIUM CHLORIDE 0.9% 50 ML IVPB SCH (08:33)
--- NOTE | 2021-01-09 09:55 | P.PN ---
Subjective Progress Note Date: 01/09/21 Patient is a 55-year-old female who presented to [facility] emergency room with a chief complaint of chest pain patient was recently discharged from the psychiatry unit. She was evaluated in the emergency room she has an extensive cardiac history she was admitted to telemetry floor and started on IV heparin cardiology consultation was requested. A shunt also has evidence of urinary tract infection she was started on IV Rocephin. Her past medical history is significant for history of extensive cardiac history with history of coronary artery bypass graft surgery and history of multiple angioplasty and stent placement, patient also has difficulty with noncompliance with medications, and continued tobacco abuse. Her past medical history is also significant for hypertension, hyperlipidemia, insulin-dependent diabetes mellitus, and history of depression and anxiety disorder. On review of systems Patient was seen and examined on the medical floor, she is alert and oriented x 3 in no distress, she is still complaining of episodes of chest pain otherwise she denies any complaints there is no fever or chills no headache or dizziness no chest pain no shortness of breath no palpitation no cough no nausea or vomiting no abdominal pain no diarrhea no blood in the stools no burning with urination no frequency or urgency and no hematuria, there is no weakness or numbness in any of the extremities no change in vision speech or gait. On 01/07/2021 patient was seen and examined on the medical floor she is alert and oriented 3 in no apparent distress she is still complaining of episodes of chest pain otherwise she denies any complaints at this time urine culture is positive for E. coli MDRO ESBL at this time IV Rocephin will be discontinued patient will be started on IV meropenem infectious disease consultation was requested. We asked for a possible midline placement or PICC line placement for possible discharge if cleared by cardiology however we were unable to secure an IV access and apparently this will not be available until Sunday On 01/08/2021 Patient was seen and examined on the medical floor, he is alert and oriented x 3 in no distress, he denies any complaints there is no fever or chills no headache or dizziness no chest pain no shortness of breath no palpitation no cough no nausea or vomiting no abdominal pain no diarrhea no blood in the stools no burning with urination no frequency or urgency and no hematuria, there is no weakness or numbness in any of the extremities no change in vision speech or gait. BUN and creatinine are elevated patient is having episodes of hypotension amlodipine was discontinued, at this time will hold Lasix for 1-2 days and monitor kidney function. On 01/09/2021 patient is alert and oriented 3 resting comfortably in bed. Patient remains on IV Invanz for UTI. Labs currently pending. At this time patient denies chest pain or shortness breath. Patient denies nausea vomiting or diarrhea. Patient denies any urinary burning or frequency Objective - Vital Signs Vital signs: Vital Signs Temp 98.2 F 01/09/21 07:10 Pulse 60 01/09/21 07:10 Resp 16 01/09/21 07:10 BP 125/77 01/09/21 07:10 Pulse Ox 98 01/09/21 07:10 Intake & Output 01/08/21 01/09/21 01/09/21 18:59 06:59 18:59 Output Total 4 450 Balance -4 -450 Weight 82.3 kg Output: Urine 4 450 Stool 0 Other: Voiding Method Toilet Toilet # Voids 1 1 - Exam In general patient is alert and oriented x 3 in no distress HEENT head normocephalic and atraumatic Neck is supple no JVD no goiter no lymphadenopathy no carotid bruit Chest examination is clear to auscultation no crackles no wheezing Cardiac exam reveals regular heart sounds S1 and S2 no gallops no murmurs Abdomen is soft nontender no organomegaly with normal bowel sounds Extremity exam reveals no edema no cyanosis or clubbing Neurological examination reveals no gross focal deficits - Labs CBC & Chem 7: 01/08/21 06:03 01/08/21 06:03 Labs: Abnormal Lab Results - Last 24 Hours (Table) 01/08/21 01/08/21 01/08/21 Range/Units 06:03 11:50 20:33 BUN 52.0 H (9.0-27.0) mg/dL Est GFR (CKD-EPI)AfAm 45.3 L (60.0-200.0) Est GFR (CKD-EPI)NonAf 39.1 L (60.0-200.0) BUN/Creatinine Ratio 34.67 H (12.00-20.00) Ratio Glucose 112 H (70-110) mg/dL POC Glucose (mg/dL) 164 H 111 H (75-99) mg/dL Calcium 8.0 L (8.7-10.3) mg/dL Total Protein 5.7 L (6.2-8.2) g/dL Ur Leukocyte Esterase (Negative) Urine WBC (0-5) /hpf Urine WBC Clumps (None) /hpf Urine Bacteria (None) /hpf 01/08/21 01/09/21 01/09/21 Range/Units 20:34 02:20 02:30 BUN (9.0-27.0) mg/dL Est GFR (CKD-EPI)AfAm (60.0-200.0) Est GFR (CKD-EPI)NonAf (60.0-200.0) BUN/Creatinine Ratio (12.00-20.00) Ratio Glucose (70-110) mg/dL POC Glucose (mg/dL) 120 H 182 H (75-99) mg/dL Calcium (8.7-10.3) mg/dL Total Protein (6.2-8.2) g/dL Ur Leukocyte Esterase Small H (Negative) Urine WBC 39 H (0-5) /hpf Urine WBC Clumps Occasional H (None) /hpf Urine Bacteria Rare H (None) /hpf 01/09/21 Range/Units 07:10 BUN (9.0-27.0) mg/dL Est GFR (CKD-EPI)AfAm (60.0-200.0) Est GFR (CKD-EPI)NonAf (60.0-200.0) BUN/Creatinine Ratio (12.00-20.00) Ratio Glucose (70-110) mg/dL POC Glucose (mg/dL) 128 H (75-99) mg/dL Calcium (8.7-10.3) mg/dL Total Protein (6.2-8.2) g/dL Ur Leukocyte Esterase (Negative) Urine WBC (0-5) /hpf Urine WBC Clumps (None) /hpf Urine Bacteria (None) /hpf Microbiology - Last 24 Hours (Table) 01/06/21 08:30 Urine Culture - Final Urine,Voided Escherichia coli Assessment and Plan Plan: Episodes of chest pain, in a 55-year-old female with extensive cardiac history patient is admitted to telemetry floor she was started on IV heparin Evidence of urinary tract infection positive for ESBL E. coli. Infectious disease service is consulted. Patient remains on IV Invanz Underlying history of hypertension Underlying history of hyperlipidemia Underlying history of depression with anxiety disorder with recent admission to the psychiatry Acute Renal failure improving gradually, Cr 1.59 yesterday Cr 0.85 on 12/26/2020 at this time we are holding IV Lasix and hydrating gently At this time patient was admitted to medical floor and started on IV heparin Cardiology consultation nephrology infectious disease service is following Patient was started on IV antibiotics Plans for possible PICC line tomorrow 01/10/2021 social work services consulted for possible rehab placement upon discharge Will monitor closely
[2021-01-09 10:40] LABS: Basophils % (A) 1 %; Eosinophils # (A) 0.1 k/uL (0-0.7); Eosinophils % (A) 2 %; HCT 31.9 % (34.0-46.0); HGB 10.7 gm/dL (11.4-16.0); Lymphocytes % (A) 17 %; MCH 32.3 pg (25.0-35.0); MCHC 33.6 g/dL (31.0-37.0); MCV 96.1 fL (80.0-100.0); Monocytes # (A) 0.3 k/uL (0-1.0); Monocytes % (A) 6 %; Neutrophils # (A) 4.1 k/uL (1.3-7.7); Neutrophils % (A) 73 %; Platelet Count 250 k/uL (150-450); RBC 3.32 m/uL (3.80-5.40); RDW 13.3 % (11.5-15.5); WBC 5.6 k/uL (3.8-10.6)
[2021-01-09 10:50] LABS: African American GFR (CKD) 45 (>60 ml/min/1.73 sqM); Anion Gap 8 mmol/L; Blood Urea Nitrogen 45 mg/dL (7-17); Calcium 8.8 mg/dL (8.4-10.2); Carbon Dioxide 26 mmol/L (22-30); Chloride 105 mmol/L (98-107); Glucose 92 mg/dL (74-99); Non-African American GFR(CKD) 39 (>60 ml/min/1.73 sqM); Potassium 4.6 mmol/L (3.5-5.1); Sodium 139 mmol/L (137-145)
[2021-01-09 12:09] LABS: Glucose,Whole Blood 84 mg/dL (75-99)
--- NOTE | 2021-01-09 13:33 | PN ---
PROGRESS NOTE Patient is seen for followup for acute kidney injury, mostly prerenal. Renal function is stable with creatinine staying at 1.5, although previous creatinine was 0.8 on 12/26/2020. The patient's blood pressure had been low. However it is now improved. EXAMINATION: Today blood pressure was 125/77, heart rate 60 per minute. He is afebrile. Examination of the heart S1, S2. Examination of the lungs, bilateral breath sounds are heard. Abdomen is soft, nontender. Examination of lower extremities shows no significant edema. OPEN CUT EXAMINER exam is grossly intact. LAB: Show sodium of 139, potassium 4.6, chloride 105, BUN 45, serum creatinine 1.5, hemoglobin 10.7. UA is completely unremarkable. ASSESSMENT: 1. Acute kidney injury associated with low blood pressure. However, patient's creatinine has not improved much with improvement in blood pressure. I will check a bladder scan. Rule out urine retention. Ultrasound of the kidneys done yesterday did not show any significant hydronephrosis. 2. Urinary tract infection. Urine culture grew E coli, currently maintained on Ertapenem. 3. History of bipolar disorder. 4. Chest pain. Troponin negative, status post IV heparin. 5. History of coronary artery disease. 6. Valvular heart disease, status post mitral valve replacement. PLAN: Rule out urine retention. May continue with lisinopril for now. I will add parameters to hold for systolic blood pressure of less than 110 mmHg. MMODL / IJN: [id number] /
[2021-01-09] MEDS: CHOLESTYRAMINE (WITH SUGAR) 4 GM PACKET PO SCH ×3 (13:50→20:41)
[2021-01-09 17:20] LABS: Glucose,Whole Blood 85 mg/dL (75-99)
[2021-01-09 20:38] LABS: Glucose,Whole Blood 127 mg/dL (75-99)
[2021-01-09] MEDS: QUEtiapine 200 MG TAB PO SCH (20:40)
[2021-01-09] MEDS: MIRTAZAPINE 15 MG TAB PO SCH (20:40)
--- NOTE | 2021-01-10 00:25 | PN ---
PROGRESS NOTE DATE OF SERVICE: 01/09/2021 REASON FOR FOLLOW UP: ESBL E coli urinary tract infection. INTERVAL HISTORY: Patient is afebrile. The patient is breathing comfortably. The patient denies having any chest pain. No shortness of breath or cough. No abdominal pain or diarrhea. PHYSICAL EXAMINATION: Her blood pressure is 124/83 with a pulse of 74, temperature 98.8, she is 99% on room air. General description is a middle-aged female up in the bed in no distress. Respiratory system: Unlabored breathing, clear to auscultation anteriorly. Heart S1, S2. Regular rate and rhythm. Abdomen soft, no tenderness. LABS: Repeat urine showing significant improvement. DIAGNOSTIC IMPRESSION/PLAN: Patient with ESBL E coli urinary tract infection, likely cystitis, clinically not behaving as a deep infection. Continue with Invanz for another 24 to 48 hours, while waiting for the repeat urine culture to finalize and continue supportive care. MMODL / IJN: [id number] /
[2021-01-10 02:31] LABS: Glucose,Whole Blood 112 mg/dL (75-99)
[2021-01-10] MEDS: LEVOTHYROXINE 100 MCG TAB PO SCH (06:22)
[2021-01-10 07:30] LABS: Glucose,Whole Blood 207 mg/dL (75-99)
[2021-01-10] MEDS: PANTOPRAZOLE 40 MG TABLET PO SCH ×2 (07:55→17:46)
[2021-01-10] MEDS: METOPROLOL TARTRATE 50 MG TAB PO SCH ×2 (07:55→21:20)
[2021-01-10] MEDS: SPIRONOLACTONE 25 MG TAB PO SCH (07:55)
[2021-01-10] MEDS: FOLIC ACID 1 MG TAB PO SCH (07:55)
[2021-01-10] MEDS: ATORVASTATIN 80 MG TAB PO SCH (07:55)
[2021-01-10] MEDS: ASPIRIN 81 MG PO SCH (07:55)
[2021-01-10] MEDS: POTASSIUM CHLORIDE ER 20 MEQ TAB.ER PO SCH (07:55)
[2021-01-10] MEDS: INSULIN DETEMIR (LEVEMIR) 100 UNIT/ML SYR SQ SCH ×2 (07:56→21:20)
[2021-01-10] MEDS: CHOLESTYRAMINE (WITH SUGAR) 4 GM PACKET PO SCH ×4 (07:56→21:20)
[2021-01-10] MEDS: INSULIN ASPART (NovoLOG) 100 UNIT/ML VIAL SQ SCH ×4 (07:56→22:10)
[2021-01-10] MEDS: FERROUS SULFATE 325 MG TAB PO SCH (07:56)
[2021-01-10] MEDS: ERTAPENEM 1 GM in SODIUM CHLORIDE 0.9% 50 ML IVPB SCH (07:57)
[2021-01-10] MEDS: SERTRALINE 100 MG TAB PO SCH (07:58)
[2021-01-10] MEDS: EZETIMIBE 10 MG TAB PO SCH (07:58)
[2021-01-10] MEDS: LITHIUM CARBONATE 300 MG CAP PO SCH (07:59)
[2021-01-10] MEDS: ISOSORBIDE MONONITRATE ER 60 MG TAB.ER.24H PO SCH ×2 (07:59→21:21)
[2021-01-10] MEDS: hydrOXYzine pamoate 25 MG CAP PO SCH ×3 (07:59→21:21)
[2021-01-10] MEDS: levETIRAcetam 500 MG TAB PO SCH ×2 (07:59→21:21)
[2021-01-10] MEDS: NYSTATIN 100,000 UNIT/GM POWD 15 GM TOPICAL SCH ×3 (08:00→21:21)
[2021-01-10] MEDS: RANOLAZINE 500 MG TAB.ER.12H PO SCH ×2 (08:00→21:21)
[2021-01-10] MEDS: TICAGRELOR 90 MG TAB PO SCH ×2 (08:00→21:21)
[2021-01-10 08:42] LABS: Basophils # (A) 0.03 X 10*3/uL (0.00-0.10); Basophils % (A) 0.5 %; Eosinophils # (A) 0.06 X 10*3/uL (0.04-0.35); Eosinophils % (A) 0.9 %; HCT 33.6 % (37.2-46.3); HGB 10.9 g/dL (12.0-15.0); Lymphocytes # (A) 0.64 X 10*3/uL (0.90-5.00); MCH 31.8 pg (27.0-32.0); MCHC 32.4 g/dL (32.0-37.0); Mean Platelet Volume 9.6 fL (9.5-12.2); Monocytes # (A) 0.36 X 10*3/uL (0.20-1.00); Monocytes % (A) 5.6 %; Neutrophils # (A) 5.29 X 10*3/uL (1.80-7.70); Neutrophils % (A) 82.7 %; Platelet Count 260 X 10*3/uL (140-440); RBC 3.43 X 10*6/uL (4.10-5.20); RDW 13.1 % (11.5-14.5)
[2021-01-10 09:35] LABS: African American GFR (CKD) 59.3 (60.0-200.0); Albumin 4.5 g/dL (3.80-4.90); Albumin/Globulin Ratio 2.14 (1.60-3.17); Anion Gap 10.5 mmol/L (4.00-12.00); Carbon Dioxide 22.5 mmol/L (21.6-31.8); Globulin 2.1 g/dL (1.6-3.3); Non-African American GFR(CKD) 51.2 (60.0-200.0); Potassium 4.8 mmol/L (3.5-5.5); Total Bilirubin 0.3 mg/dL (0.3-1.2); Total Protein 6.6 g/dL (6.2-8.2)
[2021-01-10 11:29] LABS: Glucose,Whole Blood 126 mg/dL (75-99)
[2021-01-10] MEDS: HYDROcodone/APAP 5-325MG 1 EACH TAB PO PRN (13:26)
[2021-01-10] MEDS: SODIUM CHLORIDE 0.9% 1,000 ML IV SCH (13:30)
[2021-01-10 16:38] LABS: Glucose,Whole Blood 82 mg/dL (75-99)
--- NOTE | 2021-01-10 17:57 | PN ---
PROGRESS NOTE Patient is seen for followup for acute kidney injury, mostly associated with urine retention and underlying urinary tract infection. Patient had about 550 cc of urine on a post-void bladder scan and had a straight catheterization done. Patient is maintained on small dose of PHAM inhibitors which has parameters for holding for blood pressure less than 120. Her creatinine has improved to 1.2 today from 1.5 the day before. Repeat bladder scan has not been done today yet. EXAMINATION: Today patient is comfortable. She is awake and alert, oriented x3. Blood pressure 136/81, heart rate 73 per minute. She is afebrile. Examination of the heart S1, S2. Examination of the lungs, bilateral breath sounds are heard. Abdomen is soft, nontender. Examination of lower extremities shows no evidence of edema. PRODUCT INSPECTION COORDINATOR exam shows patient moving all 4 extremities. LAB: Show sodium 140, potassium 4.8, chloride 107, BUN 30, creatinine 1.2, hemoglobin 10.9 g/dL. ASSESSMENT: 1. Acute kidney injury secondary to underlying urinary tract infection and urine retention, currently improved. Continue to encourage increased oral intake. Patient is not eating much. She is not on any diuretics or IV fluids. May need to add IV fluids if oral intake remains poor. 2. Urinary tract infection. Urine culture grew E coli, maintained on antibiotics, being followed by ID. 3. Hypertension, blood pressure currently on the lower side. 4. History of depression. PLAN: Add saline at 50 mL an hour as patient's oral intake remains poor. Repeat labs in a.m. MMODL / EDGARDON: [id number] /
--- NOTE | 2021-01-10 19:26 | P.PN ---
Subjective Progress Note Date: 01/10/21 Patient is a 55-year-old female who presented to [facility] emergency room with a chief complaint of chest pain patient was recently discharged from the psychiatry unit. She was evaluated in the emergency room she has an extensive cardiac history she was admitted to telemetry floor and started on IV heparin cardiology consultation was requested. A shunt also has evidence of urinary tract infection she was started on IV Rocephin. Her past medical history is significant for history of extensive cardiac history with history of coronary artery bypass graft surgery and history of multiple angioplasty and stent placement, patient also has difficulty with noncompliance with medications, and continued tobacco abuse. Her past medical history is also significant for hypertension, hyperlipidemia, insulin-dependent diabetes mellitus, and history of depression and anxiety disorder. On review of systems Patient was seen and examined on the medical floor, she is alert and oriented x 3 in no distress, she is still complaining of episodes of chest pain otherwise she denies any complaints there is no fever or chills no headache or dizziness no chest pain no shortness of breath no palpitation no cough no nausea or vomiting no abdominal pain no diarrhea no blood in the stools no burning with urination no frequency or urgency and no hematuria, there is no weakness or numbness in any of the extremities no change in vision speech or gait. On 01/07/2021 patient was seen and examined on the medical floor she is alert and oriented 3 in no apparent distress she is still complaining of episodes of chest pain otherwise she denies any complaints at this time urine culture is positive for E. coli MDRO ESBL at this time IV Rocephin will be discontinued patient will be started on IV meropenem infectious disease consultation was requested. We asked for a possible midline placement or PICC line placement for possible discharge if cleared by cardiology however we were unable to secure an IV access and apparently this will not be available until Sunday On 01/08/2021 Patient was seen and examined on the medical floor, he is alert and oriented x 3 in no distress, he denies any complaints there is no fever or chills no headache or dizziness no chest pain no shortness of breath no palpitation no cough no nausea or vomiting no abdominal pain no diarrhea no blood in the stools no burning with urination no frequency or urgency and no hematuria, there is no weakness or numbness in any of the extremities no change in vision speech or gait. BUN and creatinine are elevated patient is having episodes of hypotension amlodipine was discontinued, at this time will hold Lasix for 1-2 days and monitor kidney function. On 01/09/2021 patient is alert and oriented 3 resting comfortably in bed. Patient remains on IV Invanz for UTI. Labs currently pending. At this time patient denies chest pain or shortness breath. Patient denies nausea vomiting or diarrhea. Patient denies any urinary burning or frequency. On 01/10/2021 Patient was seen and examined on the medical floor, he is alert and oriented x 3 in no distress, he denies any complaints there is no fever or chills no headache or dizziness no chest pain no shortness of breath no palpitation no cough no nausea or vomiting no abdominal pain no diarrhea no blood in the stools no burning with urination no frequency or urgency and no hematuria, there is no weakness or numbness in any of the extremities no change in vision speech or gait. At this time plan per infectious disease is to continue with IV antibiotic for 2 more days then discharged patient on oral antibiotics, no need for PICC line at this point. Objective - Vital Signs Vital signs: Vital Signs Temp 99.2 F 01/10/21 07:45 Pulse 73 01/10/21 07:45 Resp 16 01/10/21 07:45 BP 136/81 01/10/21 07:45 Pulse Ox 95 01/10/21 07:45 Intake & Output 01/09/21 01/10/21 01/10/21 18:59 06:59 18:59 Output Total 1350 Balance -1350 Weight 84.7 kg Output: Urine 800 Post Void Residual 550 Other: Voiding Method Toilet Toilet # Voids 1 2 # Bowel Movements 1 - Exam In general patient is alert and oriented x 3 in no distress HEENT head normocephalic and atraumatic Neck is supple no JVD no goiter no lymphadenopathy no carotid bruit Chest examination is clear to auscultation no crackles no wheezing Cardiac exam reveals regular heart sounds S1 and S2 no gallops no murmurs Abdomen is soft nontender no organomegaly with normal bowel sounds Extremity exam reveals no edema no cyanosis or clubbing Neurological examination reveals no gross focal deficits - Labs CBC & Chem 7: 01/10/21 06:10 01/10/21 06:10 Labs: Abnormal Lab Results - Last 24 Hours (Table) 01/09/21 01/10/21 01/10/21 Range/Units 20:36 02:30 06:10 RBC 3.43 L (4.10-5.20) X 10*6/uL Hgb 10.9 L (12.0-15.0) g/dL Hct 33.6 L (37.2-46.3) % MCV 98.0 H (80.0-97.0) fL Lymphocytes # 0.64 L (0.90-5.00) X 10*3/uL BUN (9.0-27.0) mg/dL Est GFR (CKD-EPI)AfAm (60.0-200.0) Est GFR (CKD-EPI)NonAf (60.0-200.0) BUN/Creatinine Ratio (12.00-20.00) Ratio Glucose (70-110) mg/dL POC Glucose (mg/dL) 127 H 112 H (75-99) mg/dL 01/10/21 01/10/21 01/10/21 Range/Units 06:10 07:28 11:27 RBC (4.10-5.20) X 10*6/uL Hgb (12.0-15.0) g/dL Hct (37.2-46.3) % MCV (80.0-97.0) fL Lymphocytes # (0.90-5.00) X 10*3/uL BUN 30.0 H (9.0-27.0) mg/dL Est GFR (CKD-EPI)AfAm 59.3 L (60.0-200.0) Est GFR (CKD-EPI)NonAf 51.2 L (60.0-200.0) BUN/Creatinine Ratio 25.00 H (12.00-20.00) Ratio Glucose 177 H (70-110) mg/dL POC Glucose (mg/dL) 207 H 126 H (75-99) mg/dL Microbiology - Last 24 Hours (Table) 01/09/21 02:30 Urine Culture - Final Urine,Voided Assessment and Plan Plan: Episodes of chest pain, in a 55-year-old female with extensive cardiac history patient is admitted to telemetry floor she was started on IV heparin Evidence of urinary tract infection positive for ESBL E. coli. Infectious disease service is consulted. Patient remains on IV Invanz Underlying history of hypertension Underlying history of hyperlipidemia Underlying history of depression with anxiety disorder with recent admission to the psychiatry Acute Renal failure improving gradually, Cr 1.59 yesterday Cr 0.85 on 12/26/2020 at this time we are holding IV Lasix and hydrating gently At this time patient was admitted to medical floor and started on IV heparin Cardiology consultation nephrology infectious disease service is following Patient was started on IV antibiotics Plans for possible PICC line tomorrow 01/10/2021 social work services consulted for possible rehab placement upon discharge Will monitor closely
--- NOTE | 2021-01-10 19:33 | PN ---
PROGRESS NOTE DATE OF SERVICE: 01/10/2021. REASON FOR FOLLOWUP: ESBL E coli UTI infection. INTERVAL HISTORY: The patient is currently afebrile. The patient is breathing comfortably. Denies having any chest pain. No shortness of breath. Some abdominal pain. On Unasyn, has improved and no diarrhea. PHYSICAL EXAMINATION: Blood pressure 136/79, pulse 69 temperature 98.9, she is 98% on room air. The patient is a middle-aged female lying in bed, in no distress. Respiratory system: Unlabored breathing, clear to auscultation anteriorly. Heart S1, S2. Regular rate and rhythm. LABS: Hemoglobin is 10.1, white count 6.4, BUN of 30, creatinine 1.2. Repeat urine culture so far negative. DIAGNOSTIC IMPRESSION AND PLAN: Patient ESBL E coli UTI infection, more likely cystitis, clinically not behaving as a deep infection. ( ) No fever or elevated white count. She will complete her IV Invanz as of tomorrow. No need for any PICC line or outpatient antibiotic therapy. MMODL / IJN: [id number] /
[2021-01-10 20:16] LABS: Glucose,Whole Blood 127 mg/dL (75-99)
[2021-01-10] MEDS: MIRTAZAPINE 15 MG TAB PO SCH (21:20)
[2021-01-10] MEDS: QUEtiapine 200 MG TAB PO SCH (21:21)
[2021-01-11] MEDS: LEVOTHYROXINE 100 MCG TAB PO SCH (06:24)
[2021-01-11 07:43] LABS: Glucose,Whole Blood 75 mg/dL (75-99)
[2021-01-11] MEDS: INSULIN DETEMIR (LEVEMIR) 100 UNIT/ML SYR SQ SCH ×2 (08:03→22:41)
[2021-01-11] MEDS: HYDROcodone/APAP 5-325MG 1 EACH TAB PO PRN ×2 (08:04→16:43)
[2021-01-11] MEDS: ASPIRIN 81 MG PO SCH (08:04)
[2021-01-11] MEDS: SPIRONOLACTONE 25 MG TAB PO SCH (08:05)
[2021-01-11] MEDS: CHOLESTYRAMINE (WITH SUGAR) 4 GM PACKET PO SCH ×3 (08:05→18:08)
[2021-01-11] MEDS: METOPROLOL TARTRATE 50 MG TAB PO SCH (08:05)
[2021-01-11] MEDS: ATORVASTATIN 80 MG TAB PO SCH (08:05)
[2021-01-11] MEDS: FOLIC ACID 1 MG TAB PO SCH (08:05)
[2021-01-11] MEDS: POTASSIUM CHLORIDE ER 20 MEQ TAB.ER PO SCH (08:05)
[2021-01-11] MEDS: FERROUS SULFATE 325 MG TAB PO SCH (08:05)
[2021-01-11] MEDS: PANTOPRAZOLE 40 MG TABLET PO SCH ×2 (08:05→18:08)
[2021-01-11] MEDS: EZETIMIBE 10 MG TAB PO SCH (08:06)
[2021-01-11] MEDS: INSULIN ASPART (NovoLOG) 100 UNIT/ML VIAL SQ SCH ×4 (08:06→22:35)
[2021-01-11] MEDS: LITHIUM CARBONATE 300 MG CAP PO SCH (08:07)
[2021-01-11] MEDS: ISOSORBIDE MONONITRATE ER 60 MG TAB.ER.24H PO SCH (08:07)
[2021-01-11] MEDS: hydrOXYzine pamoate 25 MG CAP PO SCH ×2 (08:07→16:45)
[2021-01-11] MEDS: levETIRAcetam 500 MG TAB PO SCH (08:07)
[2021-01-11] MEDS: SERTRALINE 100 MG TAB PO SCH (08:08)
[2021-01-11] MEDS: RANOLAZINE 500 MG TAB.ER.12H PO SCH (08:08)
[2021-01-11] MEDS: NYSTATIN 100,000 UNIT/GM POWD 15 GM TOPICAL SCH ×3 (08:08→23:41)
[2021-01-11] MEDS: TICAGRELOR 90 MG TAB PO SCH (08:09)
[2021-01-11 09:23] LABS: Basophils # (A) 0.03 X 10*3/uL (0.00-0.10); Basophils % (A) 0.5 %; Eosinophils # (A) 0.09 X 10*3/uL (0.04-0.35); Eosinophils % (A) 1.5 %; HCT 35.5 % (37.2-46.3); HGB 11.4 g/dL (12.0-15.0); Lymphocytes # (A) 1.17 X 10*3/uL (0.90-5.00); Lymphocytes % (A) 19.4 %; MCH 32.1 pg (27.0-32.0); MCHC 32.1 g/dL (32.0-37.0); Mean Platelet Volume 9.5 fL (9.5-12.2); Monocytes # (A) 0.41 X 10*3/uL (0.20-1.00); Monocytes % (A) 6.8 %; Neutrophils # (A) 4.32 X 10*3/uL (1.80-7.70); Neutrophils % (A) 71.5 %; Platelet Count 255 X 10*3/uL (140-440); RBC 3.55 X 10*6/uL (4.10-5.20); RDW 13.1 % (11.5-14.5); WBC 6.04 X 10*3/uL (4.50-10.00)
--- NOTE | 2021-01-11 10:54 | PN ---
PROGRESS NOTE Patient is seen for followup for acute kidney injury associated with mild hypovolemia and urine retention. The patient has not required further straight catheterizations. PHYSICAL EXAMINATION: On examination today, blood pressure 125/77, heart rate 63 per minute. She is afebrile. Examination of the heart S1, S2. Examination of the lungs, bilateral breath sounds are heard. Abdomen is soft, nontender. Examination of lower extremities shows no evidence of edema. Swelling is noted on the right lower extremity. ADULT SCHOOL TEACHER exam grossly intact. LABS: Not available from today. ASSESSMENT: 1. Acute kidney injury, prerenal and from urine retention and underlying urinary tract infection, currently improved. Added gentle IV hydration yesterday, currently off diuretics. 2. Urinary tract infection. Urine culture grew E coli maintained on antibiotics. 3. History of depression. 4. Hypertension. Blood pressure currently on the lower side. PLAN: Continue to encourage increased oral intake. May continue saline at 50 mL an hour for now. Repeat labs. MMODL / IJN: [id number] /
[2021-01-11 11:49] LABS: Glucose,Whole Blood 72 mg/dL (75-99)
[2021-01-11] MEDS: SODIUM CHLORIDE 0.9% 1,000 ML IV SCH (12:05)
[2021-01-11] MEDS: ERTAPENEM 1 GM in SODIUM CHLORIDE 0.9% 50 ML IVPB SCH (12:05)
[2021-01-11 14:10] LABS: African American GFR (CKD) 65.9 (60.0-200.0); Albumin 4.2 g/dL (3.80-4.90); Anion Gap 5.3 mmol/L (4.00-12.00); BUN/Creat Ratio 24.55 Ratio (12.00-20.00); Calcium 8.8 mg/dL (8.7-10.3); Carbon Dioxide 23.7 mmol/L (21.6-31.8); Globulin 2.1 g/dL (1.6-3.3); Non-African American GFR(CKD) 56.9 (60.0-200.0); Potassium 4.7 mmol/L (3.5-5.5); Total Bilirubin 0.3 mg/dL (0.3-1.2); Total Protein 6.3 g/dL (6.2-8.2)
[2021-01-11 16:56] LABS: Glucose,Whole Blood 117 mg/dL (75-99)
--- NOTE | 2021-01-11 17:02 | PN ---
PROGRESS NOTE DATE OF SERVICE: 01/11/2021 REASON FOR FOLLOWUP: ESBL E coli urinary tract infection. INTERVAL HISTORY: Patient is afebrile. The patient is breathing comfortably. Denies any chest pain, shortness of breath or cough. No nausea, vomiting, abdominal pain or diarrhea. PHYSICAL EXAMINATION: Blood pressure 115/68 with a pulse of 57. Temperature is 97.3. She is 96% on room air. General description is a middle-aged female lying in bed in no distress. Respiratory system: Unlabored breathing, clear to auscultation anteriorly. Heart S1, S2. Regular rate and rhythm. Abdomen soft, no tenderness. LABS: Hemoglobin 11.4, white count 6.84. BUN of 27, creatinine 1.1. Repeat urine culture negative. DIAGNOSTIC IMPRESSION AND PLAN: Patient with ESBL E coli urinary tract infection, possible cystitis. Currently, not behaving as a deep infection. Underlying urinary tract infection has been adequately treated. Invanz can be discontinued after today's dose and continue supportive care. MMODL / IJN: [id number] /
[2021-01-11] MEDS ORDERED: ERTAPENEM 1 GM in SODIUM CHLORIDE 0.9% 50 ML IVPB STA (18:09)
[2021-01-11 21:22] LABS: Glucose,Whole Blood 77 mg/dL (75-99)
[2021-01-11 22:24] LABS: Glucose,Whole Blood 71 mg/dL (75-99)
[2021-01-11 23:02] LABS: Glucose,Whole Blood 82 mg/dL (75-99)
[2021-01-11 23:38] LABS: Glucose,Whole Blood 77 mg/dL (75-99)
[2021-01-12 00:07] LABS: Glucose,Whole Blood 71 mg/dL (75-99)
[2021-01-12] MEDS: hydrOXYzine pamoate 25 MG CAP PO SCH ×3 (00:36→17:16)
[2021-01-12] MEDS: RANOLAZINE 500 MG TAB.ER.12H PO SCH ×2 (00:36→09:50)
[2021-01-12] MEDS: MIRTAZAPINE 15 MG TAB PO SCH (00:36)
[2021-01-12] MEDS: CHOLESTYRAMINE (WITH SUGAR) 4 GM PACKET PO SCH ×3 (00:36→13:00)
[2021-01-12] MEDS: ISOSORBIDE MONONITRATE ER 60 MG TAB.ER.24H PO SCH ×2 (00:37→09:52)
[2021-01-12] MEDS: TICAGRELOR 90 MG TAB PO SCH ×2 (00:37→09:50)
[2021-01-12] MEDS: levETIRAcetam 500 MG TAB PO SCH ×2 (00:37→09:51)
[2021-01-12] MEDS: QUEtiapine 200 MG TAB PO SCH (00:37)
[2021-01-12] MEDS: METOPROLOL TARTRATE 50 MG TAB PO SCH ×2 (00:40→09:52)
[2021-01-12 00:53] LABS: Glucose,Whole Blood 90 mg/dL (75-99)
[2021-01-12 02:15] LABS: Glucose,Whole Blood 166 mg/dL (75-99)
[2021-01-12] MEDS: SODIUM CHLORIDE 0.9% 1,000 ML IV SCH (05:32)
[2021-01-12] MEDS: LEVOTHYROXINE 100 MCG TAB PO SCH (05:56)
[2021-01-12 06:59] LABS: Glucose,Whole Blood 158 mg/dL (75-99)
[2021-01-12 07:26] VITALS: RESP 16
[2021-01-12] MEDS: INSULIN DETEMIR (LEVEMIR) 100 UNIT/ML SYR SQ SCH (08:36)
[2021-01-12] MEDS: INSULIN ASPART (NovoLOG) 100 UNIT/ML VIAL SQ SCH ×2 (08:37→13:16)
[2021-01-12] MEDS: EZETIMIBE 10 MG TAB PO SCH (09:50)
[2021-01-12] MEDS: SERTRALINE 100 MG TAB PO SCH (09:50)
[2021-01-12] MEDS: POTASSIUM CHLORIDE ER 20 MEQ TAB.ER PO SCH (09:51)
[2021-01-12] MEDS: LITHIUM CARBONATE 300 MG CAP PO SCH (09:52)
[2021-01-12] MEDS: ASPIRIN 81 MG PO SCH (09:52)
[2021-01-12] MEDS: FOLIC ACID 1 MG TAB PO SCH (09:52)
[2021-01-12] MEDS: SPIRONOLACTONE 25 MG TAB PO SCH (09:52)
[2021-01-12] MEDS: ERTAPENEM 1 GM in SODIUM CHLORIDE 0.9% 50 ML IVPB SCH (09:52)
[2021-01-12] MEDS: PANTOPRAZOLE 40 MG TABLET PO SCH (09:52)
[2021-01-12] MEDS: ATORVASTATIN 80 MG TAB PO SCH (09:53)
[2021-01-12] MEDS: FERROUS SULFATE 325 MG TAB PO SCH (09:53)
[2021-01-12] MEDS: HYDROcodone/APAP 5-325MG 1 EACH TAB PO PRN ×2 (09:54→16:16)
[2021-01-12] MEDS: NYSTATIN 100,000 UNIT/GM POWD 15 GM TOPICAL SCH ×2 (10:00→17:14)
[2021-01-12 10:20] LABS: ALT 24 U/L (4-34); AST 36 U/L (14-36); African American GFR (CKD) 72 (>60 ml/min/1.73 sqM); Albumin 3.9 g/dL (3.5-5.0); Albumin/Globulin Ratio 1.3; Alkaline Phosphatase 66 U/L (38-126); Anion Gap 9 mmol/L; Blood Urea Nitrogen 28 mg/dL (7-17); Calcium 8.9 mg/dL (8.4-10.2); Carbon Dioxide 17 mmol/L (22-30); Chloride 112 mmol/L (98-107); Globulin 2.9 g/dL; Glucose 134 mg/dL (74-99); Non-African American GFR(CKD) 63 (>60 ml/min/1.73 sqM); Potassium 4.8 mmol/L (3.5-5.1); Sodium 138 mmol/L (137-145); Total Bilirubin 0.3 mg/dL (0.2-1.3); Total Protein 6.8 g/dL (6.3-8.2)
--- NOTE | 2021-01-12 10:46 | P.PN ---
Subjective Progress Note Date: 01/11/21 Patient is a 55-year-old female who presented to [facility] emergency room with a chief complaint of chest pain patient was recently discharged from the psychiatry unit. She was evaluated in the emergency room she has an extensive cardiac history she was admitted to telemetry floor and started on IV heparin cardiology consultation was requested. A shunt also has evidence of urinary tract infection she was started on IV Rocephin. Her past medical history is significant for history of extensive cardiac history with history of coronary artery bypass graft surgery and history of multiple angioplasty and stent placement, patient also has difficulty with noncompliance with medications, and continued tobacco abuse. Her past medical history is also significant for hypertension, hyperlipidemia, insulin-dependent diabetes mellitus, and history of depression and anxiety disorder. On review of systems Patient was seen and examined on the medical floor, she is alert and oriented x 3 in no distress, she is still complaining of episodes of chest pain otherwise she denies any complaints there is no fever or chills no headache or dizziness no chest pain no shortness of breath no palpitation no cough no nausea or vomiting no abdominal pain no diarrhea no blood in the stools no burning with urination no frequency or urgency and no hematuria, there is no weakness or numbness in any of the extremities no change in vision speech or gait. On 01/07/2021 patient was seen and examined on the medical floor she is alert and oriented 3 in no apparent distress she is still complaining of episodes of chest pain otherwise she denies any complaints at this time urine culture is positive for E. coli MDRO ESBL at this time IV Rocephin will be discontinued patient will be started on IV meropenem infectious disease consultation was requested. We asked for a possible midline placement or PICC line placement for possible discharge if cleared by cardiology however we were unable to secure an IV access and apparently this will not be available until Sunday On 01/08/2021 Patient was seen and examined on the medical floor, he is alert and oriented x 3 in no distress, he denies any complaints there is no fever or chills no headache or dizziness no chest pain no shortness of breath no palpitation no cough no nausea or vomiting no abdominal pain no diarrhea no blood in the stools no burning with urination no frequency or urgency and no hematuria, there is no weakness or numbness in any of the extremities no change in vision speech or gait. BUN and creatinine are elevated patient is having episodes of hypotension amlodipine was discontinued, at this time will hold Lasix for 1-2 days and monitor kidney function. On 01/09/2021 patient is alert and oriented 3 resting comfortably in bed. Patient remains on IV Invanz for UTI. Labs currently pending. At this time patient denies chest pain or shortness breath. Patient denies nausea vomiting or diarrhea. Patient denies any urinary burning or frequency. On 01/10/2021 Patient was seen and examined on the medical floor, he is alert and oriented x 3 in no distress, he denies any complaints there is no fever or chills no headache or dizziness no chest pain no shortness of breath no palpitation no cough no nausea or vomiting no abdominal pain no diarrhea no blood in the stools no burning with urination no frequency or urgency and no hematuria, there is no weakness or numbness in any of the extremities no change in vision speech or gait. At this time plan per infectious disease is to continue with IV antibiotic for 2 more days then discharged patient on oral antibiotics, no need for PICC line at this point. On 01/11/2021 Patient was seen and examined on the medical floor, he is alert and oriented x 3 in no distress, he denies any complaints there is no fever or chills no headache or dizziness no chest pain no shortness of breath no palpitation no cough no nausea or vomiting no abdominal pain no diarrhea no blood in the stools no burning with urination no frequency or urgency and no hematuria, there is no weakness or numbness in any of the extremities no change in vision speech or gait. Objective - Vital Signs Vital signs: Vital Signs Temp 97.6 F 01/11/21 13:59 Pulse 57 L 01/11/21 13:59 Resp 16 01/11/21 13:59 BP 115/68 01/11/21 13:59 Pulse Ox 96 01/11/21 13:59 Intake & Output 01/10/21 01/11/21 01/11/21 18:59 06:59 18:59 Intake Total 240 Output Total 0 810 Balance 0 -570 Weight 80.6 kg Intake: Oral 240 Output: Urine 810 Straight 810 Stool 0 Other: Voiding Method Toilet Toilet Toilet # Voids 1 1 - Exam In general patient is alert and oriented x 3 in no distress HEENT head normocephalic and atraumatic Neck is supple no JVD no goiter no lymphadenopathy no carotid bruit Chest examination is clear to auscultation no crackles no wheezing Cardiac exam reveals regular heart sounds S1 and S2 no gallops no murmurs Abdomen is soft nontender no organomegaly with normal bowel sounds Extremity exam reveals no edema no cyanosis or clubbing Neurological examination reveals no gross focal deficits - Labs CBC & Chem 7: 01/11/21 05:55 01/12/21 09:15 Labs: Abnormal Lab Results - Last 24 Hours (Table) 01/10/21 01/11/21 01/11/21 Range/Units 20:14 05:55 05:55 RBC 3.55 L (4.10-5.20) X 10*6/uL Hgb 11.4 L (12.0-15.0) g/dL Hct 35.5 L (37.2-46.3) % MCV 100.0 H (80.0-97.0) fL MCH 32.1 H (27.0-32.0) pg Chloride 113 H (96-109) mmol/L Est GFR (CKD-EPI)NonAf 56.9 L (60.0-200.0) BUN/Creatinine Ratio 24.55 H (12.00-20.00) Ratio Glucose 65 L (70-110) mg/dL POC Glucose (mg/dL) 127 H (75-99) mg/dL 01/11/21 01/11/21 Range/Units 11:48 16:54 RBC (4.10-5.20) X 10*6/uL Hgb (12.0-15.0) g/dL Hct (37.2-46.3) % MCV (80.0-97.0) fL MCH (27.0-32.0) pg Chloride (96-109) mmol/L Est GFR (CKD-EPI)NonAf (60.0-200.0) BUN/Creatinine Ratio (12.00-20.00) Ratio Glucose (70-110) mg/dL POC Glucose (mg/dL) 72 L 117 H (75-99) mg/dL Assessment and Plan Plan: Episodes of chest pain, in a 55-year-old female with extensive cardiac history patient is admitted to telemetry floor she was started on IV heparin Evidence of urinary tract infection positive for ESBL E. coli. Infectious disease service is consulted. Patient remains on IV Invanz Underlying history of hypertension Underlying history of hyperlipidemia Underlying history of depression with anxiety disorder with recent admission to the psychiatry Acute Renal failure improving gradually, Cr 1.59 yesterday Cr 0.85 on 12/26/2020 at this time we are holding IV Lasix and hydrating gently At this time patient was admitted to medical floor and started on IV heparin Cardiology consultation nephrology infectious disease service is following Patient was started on IV antibiotics Plans for possible PICC line tomorrow 01/10/2021 social work services consulted for possible rehab placement upon discharge Will monitor closely
[2021-01-12 11:12] LABS: Glucose,Whole Blood 91 mg/dL (75-99)
--- NOTE | 2021-01-12 12:15 | P.DS ---
Providers Date of admission: 01/08/21 14:39 Expected date of discharge: 01/12/21 Attending physician: Jerson Aguilar Consults: 01/06/21 17:25 Consult Physician Routine Consulting Provider: Kali Barrientos Consult Reason/Comments: anxiety Do you want consulting provider notified?: Yes 01/07/21 11:47 Consult Physician Routine Consulting Provider: Michele Alston Consult Reason/Comments: picc line placement nephrology clearance gfr 37 Do you want consulting provider notified?: Yes 01/07/21 14:16 Consult Physician Routine Consulting Provider: Carrington Gilbert Consult Reason/Comments: ESBL Do you want consulting provider notified?: Yes Primary care physician: Jerson Aguilar [facility] Course: Discharge diagnosis Episodes of chest pain, in a 55-year-old female with extensive cardiac history patient is admitted to telemetry floor she was started on IV heparin. Per cardiology atypical chest pain continue with medical therapy Evidence of urinary tract infection positive for ESBL E. coli. Infectious disease service is consulted. Patient remains on IV Invanz. Patient completed antibiotic course with IV Invanz no antibiotics upon discharge Underlying history of hypertension Underlying history of hyperlipidemia Underlying history of depression with anxiety disorder with recent admission to the psychiatry Acute Renal failure improving gradually, Cr 1.59 yesterday Cr 0.85 on 12/26/2020 at this time we are holding IV Lasix and hydrating gently results. Lasix will be decreased upon discharge Hospital course Patient is a 55-year-old female who presented to [facility] emergency room with a chief complaint of chest pain patient was recently discharged from the psychiatry unit. She was evaluated in the emergency room she has an extensive cardiac history she was admitted to telemetry floor and started on IV heparin cardiology consultation was requested. A shunt also has evidence of urinary tract infection she was started on IV Rocephin. Her past medical history is significant for history of extensive cardiac history with history of coronary artery bypass graft surgery and history of multiple angioplasty and stent placement, patient also has difficulty with noncompliance with medications, and continued tobacco abuse. Her past medical history is also significant for hypertension, hyperlipidemia, insulin-dependent diabetes mellitus, and history of depression and anxiety disorder. On review of systems Patient was seen and examined on the medical floor, she is alert and oriented x 3 in no distress, she is still complaining of episodes of chest pain otherwise she denies any complaints there is no fever or chills no headache or dizziness no chest pain no shortness of breath no palpitation no cough no nausea or vomiting no abdominal pain no diarrhea no blood in the stools no burning with urination no frequency or urgency and no hematuria, there is no weakness or numbness in any of the extremities no change in vision speech or gait. On 01/07/2021 patient was seen and examined on the medical floor she is alert and oriented 3 in no apparent distress she is still complaining of episodes of chest pain otherwise she denies any complaints at this time urine culture is positive for E. coli MDRO ESBL at this time IV Rocephin will be discontinued patient will be started on IV meropenem infectious disease consultation was requested. We asked for a possible midline placement or PICC line placement for possible discharge if cleared by cardiology however we were unable to secure an IV access and apparently this will not be available until Sunday On 01/08/2021 Patient was seen and examined on the medical floor, he is alert and oriented x 3 in no distress, he denies any complaints there is no fever or chills no headache or dizziness no chest pain no shortness of breath no palpitation no cough no nausea or vomiting no abdominal pain no diarrhea no blood in the stools no burning with urination no frequency or urgency and no hematuria, there is no weakness or numbness in any of the extremities no change in vision speech or gait. BUN and creatinine are elevated patient is having episodes of hypotension amlodipine was discontinued, at this time will hold Lasix for 1-2 days and monitor kidney function. On 01/09/2021 patient is alert and oriented 3 resting comfortably in bed. Patient remains on IV Invanz for UTI. Labs currently pending. At this time patient denies chest pain or shortness breath. Patient denies nausea vomiting or diarrhea. Patient denies any urinary burning or frequency. On 01/10/2021 Patient was seen and examined on the medical floor, he is alert and oriented x 3 in no distress, he denies any complaints there is no fever or chills no headache or dizziness no chest pain no shortness of breath no palpitation no cough no nausea or vomiting no abdominal pain no diarrhea no blood in the stools no burning with urination no frequency or urgency and no hematuria, there is no weakness or numbness in any of the extremities no change in vision speech or gait. At this time plan per infectious disease is to continue with IV antibiotic for 2 more days then discharged patient on oral antibiotics, no need for PICC line at this point. On 01/11/2021 Patient was seen and examined on the medical floor, he is alert and oriented x 3 in no distress, he denies any complaints there is no fever or chills no headache or dizziness no chest pain no shortness of breath no palpitation no cough no nausea or vomiting no abdominal pain no diarrhea no blood in the stools no burning with urination no frequency or urgency and no hematuria, there is no weakness or numbness in any of the extremities no change in vision speech or gait. On 01/12/2021 patient is alert and oriented 3. Patient finished last dose of IV Invanz today per infectious disease for mentation. Patient will be discharged today. Social work has arranged for patient to be transported to homeless detention. Patient reports she has not of her medications. Scripts written for all medications. Patient again educated on the importance of medication compliance and follow-up with her PCP and consulting providers for further management of chronic conditions. Patient also educated on reports of complete smoking cessation. She verbalized understanding. At this time patient denies chest pain or shortness of breath. Patient denies nausea vomiting or diarrhea. Patient denies any urinary burning or frequency Patient Condition at Discharge: Stable Plan - Discharge Summary Discharge Rx Participant: Yes New Discharge Prescriptions: [place] Carbonate 300 mg PO DAILY 30 Days #30 cap Mirtazapine [Remeron] 30 mg PO HS 30 Days #30 tab Furosemide [Lasix] 20 mg PO DAILY 30 Days #30 tab Continue Aspirin 81 mg PO DAILY 30 Days #30 chew Ticagrelor [Brilinta] 90 mg PO BID 30 Days #60 tab Ferrous Sulfate [Iron (65 MG Elemental)] 325 mg PO DAILY 30 Days #30 tab Atorvastatin [Lipitor] 80 mg PO DAILY 30 Days #30 tab Nystatin 100,000 Unit/gm Powd [Mycostatin Powder] 1 applic TOPICAL TID #1 bottle Ranolazine [Ranexa] 1,000 mg PO BID 30 Days #60 tab QUEtiapine [SEROquel] 200 mg PO HS 30 Days #30 tab hydrOXYzine pamoate [Vistaril] 25 mg PO TID 30 Days #90 cap Ezetimibe [Zetia] 10 mg PO DAILY 30 Days #30 tab Sertraline [Zoloft] 200 mg PO DAILY 30 Days #60 tab Spironolactone [Aldactone] 25 mg PO DAILY 30 Days #30 tab Folic Acid 1 mg PO DAILY 30 Days #30 tab Isosorbide Mononitrate ER [Imdur] 60 mg PO BID 30 Days #30 tab.er.24h Potassium Chloride ER [K-Dur 20] 20 meq PO DAILY 30 Days #30 tab levETIRAcetam [Keppra] 500 mg PO Q12H 30 Days #60 tab Insulin Glargine,Hum.rec.anlog [Lantus Solostar] 28 unit SQ BID 30 Days #2 pen Metoprolol Tartrate [Lopressor] 50 mg PO BID 30 Days #60 tab Nitroglycerin Sl Tabs [Nitrostat] 0.4 mg SUBLINGUAL Q5M PRN 2 Days #14 tab PRN Reason: Chest Pain INSULIN ASPART (NovoLOG) [NovoLOG (formulary)] 7 unit SQ ACHS 30 Days #1 vial Pantoprazole [Protonix] 40 mg PO AC-BID 30 Days #60 tablet. Levothyroxine Sodium [Synthroid] 200 mcg PO DAILY 30 Days #30 tab lisinopriL [Zestril] 2.5 mg PO DAILY 30 Days #30 tab Discontinued Cyclobenzaprine [Flexeril] 10 mg PO TID PRN 30 Days tab PRN Reason: Muscle Spasm Loperamide HCl [Imodium A-D] 2 - 4 mg PO QID PRN 30 Days tab PRN Reason: Diarrhea [place] Carbonate 150 mg PO BID 30 Days cap Furosemide [Lasix] 40 mg PO DAILY 30 Days tab amLODIPine [Norvasc] 5 mg PO DAILY 30 Days #90 tab Mirtazapine [Remeron] 45 mg PO HS 30 Days tab No Action HYDROcodone/APAP 5-325MG [[place] 5-325] 1 tab PO Q6HR PRN PRN Reason: Pain Discharge Medication List HYDROcodone/APAP 5-325MG [[place] 5-325] 1 tab PO Q6HR PRN 01/06/21 [History] Aspirin 81 mg PO DAILY 30 Days #30 chew 01/12/21 [Rx] Atorvastatin [Lipitor] 80 mg PO DAILY 30 Days #30 tab 01/12/21 [Rx] Ezetimibe [Zetia] 10 mg PO DAILY 30 Days #30 tab 01/12/21 [Rx] Ferrous Sulfate [Iron (65 MG Elemental)] 325 mg PO DAILY 30 Days #30 tab 01/12/21 [Rx] Folic Acid 1 mg PO DAILY 30 Days #30 tab 01/12/21 [Rx] Furosemide [Lasix] 20 mg PO DAILY 30 Days #30 tab 01/12/21 [Rx] INSULIN ASPART (NovoLOG) [NovoLOG (formulary)] 7 unit SQ ACHS 30 Days #1 vial 01/12/21 [Rx] Insulin Glargine,Hum.rec.anlog [Lantus Solostar] 28 unit SQ BID 30 Days #2 pen 01/12/21 [Rx] Isosorbide Mononitrate ER [Imdur] 60 mg PO BID 30 Days #30 tab.er.24h 01/12/21 [Rx] Levothyroxine Sodium [Synthroid] 200 mcg PO DAILY 30 Days #30 tab 01/12/21 [Rx] [place] Carbonate 300 mg PO DAILY 30 Days #30 cap 01/12/21 [Rx] Metoprolol Tartrate [Lopressor] 50 mg PO BID 30 Days #60 tab 01/12/21 [Rx] Mirtazapine [Remeron] 30 mg PO HS 30 Days #30 tab 01/12/21 [Rx] Nitroglycerin Sl Tabs [Nitrostat] 0.4 mg SUBLINGUAL Q5M PRN 2 Days #14 tab 01/12/21 [Rx] Nystatin 100,000 Unit/gm Powd [Mycostatin Powder] 1 applic TOPICAL TID #1 bottle 01/12/21 [Rx] Pantoprazole [Protonix] 40 mg PO AC-BID 30 Days #60 tablet.dr 01/12/21 [Rx] Potassium Chloride ER [K-Dur 20] 20 meq PO DAILY 30 Days #30 tab 01/12/21 [Rx] QUEtiapine [SEROquel] 200 mg PO HS 30 Days #30 tab 01/12/21 [Rx] Ranolazine [Ranexa] 1,000 mg PO BID 30 Days #60 tab 01/12/21 [Rx] Sertraline [Zoloft] 200 mg PO DAILY 30 Days #60 tab 01/12/21 [Rx] Spironolactone [Aldactone] 25 mg PO DAILY 30 Days #30 tab 01/12/21 [Rx] Ticagrelor [Brilinta] 90 mg PO BID 30 Days #60 tab 01/12/21 [Rx] hydrOXYzine pamoate [Vistaril] 25 mg PO TID 30 Days #90 cap 01/12/21 [Rx] levETIRAcetam [Keppra] 500 mg PO Q12H 30 Days #60 tab 01/12/21 [Rx] lisinopriL [Zestril] 2.5 mg PO DAILY 30 Days #30 tab 01/12/21 [Rx] Follow up Appointment(s)/Referral(s): Jerson Aguilar MD [Primary Care Provider] - 1-2 days
[2021-01-12 12:24] LABS: Basophils # (A) 0.1 k/uL (0-0.2); Basophils % (A) 1 %; Eosinophils # (A) 0.1 k/uL (0-0.7); Eosinophils % (A) 1 %; HCT 33.6 % (34.0-46.0); HGB 11.4 gm/dL (11.4-16.0); Lymphocytes # (A) 0.8 k/uL (1.0-4.8); Lymphocytes % (A) 9 %; MCHC 33.8 g/dL (31.0-37.0); MCV 94.7 fL (80.0-100.0); Mean Platelet Volume 7.8; Monocytes # (A) 0.4 k/uL (0-1.0); Monocytes % (A) 4 %; Neutrophils # (A) 8.1 k/uL (1.3-7.7); Neutrophils % (A) 85 %; Platelet Count 277 k/uL (150-450); RBC 3.55 m/uL (3.80-5.40); RDW 12.8 % (11.5-15.5); WBC 9.5 k/uL (3.8-10.6)
[2021-01-12] MEDS ORDERED: TAMSULOSIN 0.4 MG CAP.ER.24H PO SCH (12:45)
--- NOTE | 2021-01-12 13:26 | PN ---
PROGRESS NOTE Patient is seen for followup for acute kidney injury, mostly prerenal and associated with urine retention. The patient's creatinine has improved. It is down to 1.02. She has had elevated postvoid residuals. However, she has been able to void. PHYSICAL EXAMINATION: On examination today, blood pressure 128/78, heart rate 77 per minute. She is afebrile. Examination of the heart S1, S2. Examination of the lungs, bilateral breath sounds are heard. Abdomen is soft, nontender. Examination of lower extremities shows no significant edema. BUSINESS MANAGEMENT SPECIALIST exam grossly intact. LAB: Show sodium 138, potassium 4.8, chloride 112, CO2 17, BUN 28, creatinine 1.02. ASSESSMENT: 1. Acute kidney injury, prerenal and secondary to urine retention, currently improved. Patient is encouraged to void frequently. I would hold off on a [place] catheter placement at this time. We can add Flomax and she will need periodical evaluation of her renal function post discharge. She is encouraged to increase her oral intake, particularly fluids. 2. History of bipolar disorder. 3. Urinary tract infection. Urine culture grew E coli, maintained on antibiotics. 4. Hypertension. Blood pressure had been on the lower side. PLAN: Add Flomax. Okay to discharge patient. Followup as outpatient with periodic monitoring of renal function and urine retention. MMODL / IJN: [id number] /
[2021-01-12 14:34] VITALS: BMI 30.4
--- NOTE | 2021-01-12 14:38 | PN ---
PROGRESS NOTE DATE OF SERVICE: 01/12/2021 REASON FOR FOLLOWUP: ESBL E coli urinary tract infection. INTERVAL HISTORY: Patient is afebrile. The patient is breathing comfortably. The patient denies having any chest pain, shortness of breath, cough, abdominal pain or diarrhea. PHYSICAL EXAMINATION: Blood pressure 128/78 with a pulse of 77, temperature 98.9. She is 98% on room air. General description is a middle-aged female lying in bed in no distress. Respiratory system: Unlabored breathing, clear to auscultation anteriorly. Heart S1, S2. Regular rate and rhythm. Abdomen soft, no tenderness. LABS: Hemoglobin 11.4, white count 9.0, BUN of 28, creatinine 1.02. Repeat urine culture has been negative. DIAGNOSTIC IMPRESSION AND PLAN: Patient with ESBL E coli urinary tract infection that has been adequately treated. Repeat urine is negative. No need for antibiotic on discharge. Questions and concerns were answered. MMODL / IJN: [id number] /
[2021-01-12 15:17] VITALS: BP 119/73; PULSE 64; TEMP 99.1
== END 2021-01-12 17:16 | disposition home or self-care (01) | DRG 690 ==
LOC: EC 06:30 → 6NMEDSUR 10:37 → UNDODISOB 01-07 13:06 → OBSVTOIN 01-08 14:39
PROVIDERS: ADMIT Internal Medicine; ATTEND Internal Medicine
DX: N30.90 Cystitis, unspecified without hematuria (principal); N17.9 Acute kidney failure, unspecified; R47.01 Aphasia; Z16.12 Extended spectrum beta lactamase (ESBL) resistance; I25.10 Atherosclerotic heart disease of native coronary artery without angina pectoris; B96.20 Unspecified Escherichia coli [E. coli] as the cause of diseases classified elsewhere; J44.9 Chronic obstructive pulmonary disease, unspecified; E11.40 Type 2 diabetes mellitus with diabetic neuropathy, unspecified; I10 Essential (primary) hypertension; E11.51 Type 2 diabetes mellitus with diabetic peripheral angiopathy without gangrene; G35 Multiple sclerosis; I45.81 Long QT syndrome; E03.9 Hypothyroidism, unspecified; R29.810 Facial weakness; E78.5 Hyperlipidemia, unspecified; F31.9 Bipolar disorder, unspecified; F41.9 Anxiety disorder, unspecified; Z20.822 Contact with and (suspected) exposure to COVID-19; E86.1 Hypovolemia; F17.210 Nicotine dependence, cigarettes, uncomplicated; R33.8 Other retention of urine; R07.89 Other chest pain; Z76.5 Malingerer [conscious simulation]; Z91.013 Allergy to seafood; I25.2 Old myocardial infarction; Z59.0 Homelessness; Z79.02 Long term (current) use of antithrombotics/antiplatelets; Z79.4 Long term (current) use of insulin; Z79.899 Other long term (current) drug therapy; Z79.890 Hormone replacement therapy; Z79.82 Long term (current) use of aspirin; Z87.440 Personal history of urinary (tract) infections; Z86.73 Personal history of transient ischemic attack (TIA), and cerebral infarction without residual deficits; Z90.710 Acquired absence of both cervix and uterus; Z91.14 Patient's other noncompliance with medication regimen; Z95.1 Presence of aortocoronary bypass graft; Z95.3 Presence of xenogenic heart valve; Z95.5 Presence of coronary angioplasty implant and graft; Z90.49 Acquired absence of other specified parts of digestive tract; Z88.8 Allergy status to other drugs, medicaments and biological substances
CPT/HCPCS: 36415; 71046; 76770; 80048; 80053; 80061; 81001; 83690; 83735; 84484; 85025; 85610; 85730; 87077; 87086; 87186; 87635; 93005; 96361; 96374; 99285